=== PATIENT | female | born 1955 | race Caucasian/White ===

== ENCOUNTER 2019-02-26 12:05 | Emergency (ER) | payer OTHER, SELFPAY ==
[2019-02-26 12:07] VITALS: BP 160/92; PULSE 69; RESP 17; TEMP 36.4; O2SAT 100; BMI 32.1
--- NOTE | 2019-02-26 12:43 | ED.VISSUMM ---
- ER Visit Summary Date of Service: 02/26/19 Chief Complaint: Left pain and swelling without trauma. 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 Patient states for the last 3 days she has had pain and some swelling in her left knee and now some mild swelling and discomfort in her proximal left calf. She denies any history of DVT or PE. No chest pain, shortness of breath or hemoptysis. She has had no recent travel, surgery or immobilization. She has had ultrasounds in the past of her legs showing no blood clots. She presented today to the urgent care they were concerned due to the swelling and sent her over for possible blood clot. Patient has no risk factors of a blood clot nor does she have any family history of clotting disorder. Physical Examination: Appearing female no acute distress vital signs stable afebrile. Pulse ox 100%. Lungs are clear to auscultation. Heart regular rhythm. Abdomen is soft. HEENT exam unremarkable. Patient is moving all 4 extremities and neurovascular intact. Her left knee she has mild swelling. Mild pain with range of motion. No erythema. No septic joint. She has mild throat fullness to her proximal calf just below the knee. Left foot is neurovascularly intact with normal DP pulse dorsi plantarflexion sensation. There are no cords. There is no lymphangitic streaking. The exam is consistent with a left knee effusion from arthritis and swelling. Test Results: None. Discussed with the patient noninvasive study which clinically I do not think she needs. Discussed with her a d-dimer which they deferred. Emergency Department Course and Treatment: Patient will be treated as a left knee effusion. Ice and placed on prednisone. We discussed a intra-articular joint injection of lidocaine and steroid which she deferred at this time. She knows she can have that done and follow-up if not improving. She did not want to do Motrin due to her reflux. Treatment Plan: Prednisone 40 mg a day for 10 days. First dose given in the ER. Ice and elevate her leg. Follow-up if not improving. Disposition: Discharge Impression: Acute left knee effusion and pain secondary to arthritis This note was generated with [employer] software. It may contain incorrect words, spelling, and punctuation that were not noted in review of the chart prior to signing ED Disposition - Plan for ED Patient: Referrals: Eugenio James MD [Primary Care Provider] -
--- NOTE | 2019-02-26 12:46 | ED.DEP ---
ED Disposition - Plan for ED Patient: Disposition: Home or Assisted Living Instructions: ED Osteoarthritis Prescriptions: Prednisone [Deltasone] 40 mg PO DAILY 9 Days #9 tab Prescription Printed Referrals: Eugenio James MD [Primary Care Provider] - 3-5 Days if not improving Additional Instructions: Ice and elevate your leg. Prednisone daily. Follow-up with not improving he may need a knee joint injection. If you start having swelling above your knee into the thigh we can always do a noninvasive study or ultrasound your leg but at this time I do not feel this is a blood clot. Follow-up with an orthopedic physician to have your knee further evaluated.
[2019-02-26] MEDS: predniSONE 20 MG Tablet 40 MG PO (12:52)
[2019-02-26 13:12] VITALS: PULSE 82; RESP 17; O2SAT 98
== END 2019-02-26 13:13 | disposition home or self-care (01) ==
PROVIDERS: Emergency Provider Emergency Medicine; Family Provider Family Medicine; PCP Family Medicine
DX: M17.12 Unilateral primary osteoarthritis, left knee (principal)
CPT/HCPCS: 99283

== ENCOUNTER 2019-05-24 01:42 | Emergency (ER) | payer OTHER, SELFPAY ==
[2019-05-24 01:43] VITALS: BP 152/71; PULSE 57; RESP 18; TEMP 36.8; O2SAT 94; BMI 29.7
--- NOTE | 2019-05-24 01:58 | RAD_ITS ---
STUDY: X-RAY CHEST REASON FOR EXAM: Female, 63 years old. Left-sided chest pain with inspiration. TECHNIQUE: PA and lateral chest. COMPARISON: None. FINDINGS: The lungs are clear and expanded. There is no demonstrated pleural abnormality. Normal size heart. Normal mediastinum and kirk. Normal visualized pulmonary arteries. Normal visualized aortic arch and descending thoracic aorta. Normal visualized thoracic spine. Normal visualized ribs, clavicles, and shoulders. There is no demonstrated abnormality of the visualized soft tissue structures of the upper abdomen. RAD/Chest PA and Lateral IMPRESSION: No acute cardiopulmonary disease. Electronically Signed: Rich Acosta MD at 3:12 EST , Service support ,
--- NOTE | 2019-05-24 01:58 | EKG12_ITS ---
Test Reason : DYSRHYTHMIA Blood Pressure : / mmHG Vent. Rate : 056 BPM Atrial Rate : 056 BPM P-R Int : 200 ms QRS Dur : 094 ms QT Int : 456 ms P-R-T Axes : 042 -07 009 degrees QTc Int : 440 ms Sinus bradycardia Minimal voltage criteria for LVH, may be normal variant Borderline ECG Confirmed by MAXIME YOU, MACIE ([id number]), editor index LEO CROCKER ([id number]) on 05/25/2019 1:53:59 PM Referred By: CAMMY Confirmed By:MACIE SWARTZ MD
--- NOTE | 2019-05-24 01:59 | ED.DCSUM_ITS ---
History of Present Illness Chief Complaint: Shortness of Breath Informant: Patient Narrative: Stated has had left-sided chest pain for approximately 11 hours. It does not hurt unless she takes a deep breath and then she feels a sharp pleuritic pain on the left breast lateral region. It does hurt to push on it as well. No injury to this area. No recent sickness. No pulmonary embolism cardiac or aortic dissection risk factors. Never had this before. Current severity is mild. She tried to take a reflux medicine with no relief. Denies shortness of breath. Denies any leg swelling or pain or recent trips Past Medical History - Allergies and Home Meds Allergies/Adverse Reactions: Allergies No Known Allergies Allergy (Verified 05/24/19 01:48) Primary Care Physician: Eugenio James MD [Primary Care Provider] - Prior records reviewed: Yes Past Medical History: - - Gastric reflux Surgical History: no surgical history Lives: With Family Smoking Status: Never smoker Alcohol: None Drugs: None Review of Systems General: Denies: Chills, Fever, Sweats Eyes: Denies: Visual changes - bilaterally, Diplopia ENT: Denies: Rhinorrhea, Sore throat Cardiovascular: Reports: Chest pain. Denies: Palpitations Respiratory: Denies: Dyspnea, Cough, Dyspnea on exertion Gastrointestinal: Denies: Abdominal pain, Nausea, Vomiting, Diarrhea, Melena, Hematochezia Genitourinary: Denies: Dysuria, Hematuria, Frequency Musculoskeletal: Denies: Back pain, Extremity Pain Skin: Denies: Rash, Wounds Neurological: Denies: Headache, Weakness, Numbness Physical Exam Vital Signs/Narrative: Vital Signs Temp Pulse Resp BP Pulse Ox 05/24/19 01:43 98.3 F 57 L 18 152/71 H 94 General: Well nourished, Well developed, No Acute Distress Head: Normocephalic, Atraumatic Eyes: Perrl, EOMI ENT: Moist mucous membranes, No rhinorrhea Neck: Supple, Nontender Cardiovascular: Regular rate, Regular rhythm, No murmurs Respiratory: No distress, CTA bilaterally, Chest tenderness - Chest tenderness left lateral without swelling or deformity. Negative for: Chest nontender Abdomen: Soft, Nontender, Nondistended, Normal bowel sounds Back: Nontender, Normal Inspection Extremities: Nontender, No edema Skin: Normal color, No rash Neurological: Alert, Oriented x3, Cranial nerves II-XII grossly intact, Normal Strength, Normal Sensation Psychological: Normal affect, Normal Mood Diagnostic/Tx/Re-eval - Medical Decision Making Patient given Toradol. Lab work chest x-ray EKG obtained. EKG shows sinus bradycardia at 56 with no ischemia or arrhythmia. Chest x-ray normal. Lab work shows no significant abnormalities including CBC BMP. Creatinine mildly elevated. Troponin negative. D-dimer negative. At this time I think the pat ient likely has pleurisy or costochondritis. It is reproducible. She feels much better after Toradol. I do not think she has an acute coronary syndrome PE or dissection. I feel she can follow-up as an outpatient will continue anti- inflammatories. ED Disposition - Plan for ED Patient: Disposition: Home or Assisted Living Diagnosis: Pleurisy Instructions: Pleurisy Referrals: Eugenio James MD [Primary Care Provider] -
[2019-05-24 02:04] LABS: Absolute Lymphocyte Count 1.69 X10^3/uL (0.83-4.51); Absolute Neutrophil Count 2.6 X10^3/uL (2.0-7.7); Basophil# 0.03 X10^3/uL; Basophil% 0.6 % (0-1); Eosinophil# 0.13 X10^3/uL; Eosinophils% 2.7 % (0-5); Hematocrit 41.7 % (37-47); Hemoglobin 13.8 g/dL (12.0-15.0); Lymphocyte # 1.69 X10^3/ul (4.0); Lymphocyte % 35.7 % (19-41); Mean Corp Hgb Conc 33.1 g/dL (32-36); Mean Corpuscular Hgb 29.2 pg (27.0-32.0); Mean Corpuscular Volume 88.2 fL (81-99); Mean Platelet Vol. 10.8 fl (6.2-12.0); Monocyte# 0.26 X10^3/uL; Monocyte% 5.5 % (0-10); NRBC Flagged by Analyzer 0 % (0-5); Neutrophil # 2.62 X10^3/uL (2.7-7.7); Neutrophil % 55.3 % (47-70); Platelet Count 167 K/mm3 (150-450); RBC Distribution Width CV 13.3 % (11.6-14.6); Red Blood Count 4.73 M/mm3 (4.2-5.4); White Blood Count 4.7 K/mm3 (4.4-11.0)
[2019-05-24 02:05] VITALS: O2SAT 94
[2019-05-24] MEDS: Ketorolac 15 MG/ML Vial IV (02:11)
[2019-05-24 02:13] LABS: D-Dimer Quantitative (DVT/PE) 0.49 FEU/ug/m (0.27-0.49)
[2019-05-24 02:20] LABS: Anion Gap 5 (5-15); BUN 17 mg/dL (7-18); BUN/Creat Ratio 15.6 RATIO (10-20); Calcium,Total 9.1 mg/dL (8.5-10.1); Chloride 110 mmol/L (98-107); Creatinine, Serum 1.09 mg/dL (0.55-1.02); EST Glomerular Filtration Rate 54 mL/min (>60); Est Glom Filt Rate - Afr Amer 65 mL/min (>60); Estimated Creatinine Clearance 51.37 ml/min; Glucose 93 mg/dL (74-106); Potassium 3.7 mmol/L (3.5-5.1); Sodium Level 142 mmol/L (136-145)
[2019-05-24 03:22] VITALS: BP 140/68; PULSE 53; RESP 16; O2SAT 97
== END 2019-05-24 03:27 | disposition home or self-care (01) ==
PROVIDERS: Emergency Provider Emergency Medicine; PCP Family Medicine
DX: R09.1 Pleurisy (principal); K21.9 Gastro-esophageal reflux disease without esophagitis; Z79.899 Other long term (current) drug therapy
CPT/HCPCS: 71046; 80048; 84484; 85025; 85379; 93005; 96374; 99285; A4216

== ENCOUNTER 2023-10-29 21:40 | Emergency (ER) | payer MEDICARE, SELFPAY ==
[2023-10-29 21:40] VITALS: BP 182/109; PULSE 97; RESP 16; TEMP 36.4; O2SAT 97; BMI 30.9
--- NOTE | 2023-10-29 22:28 | RAD_ITS ---
EXAM: XR LEFT ELBOW COMPLETE, 3 OR MORE VIEWS CLINICAL INDICATION: injury TECHNIQUE: Frontal, lateral and oblique views of the left elbow. COMPARISON: No relevant prior studies available. FINDINGS: BONES/JOINTS: Spurring of the coronoid process. There is no displacement of the anterior or posterior fat pads. No acute fracture. No subluxation. Normal alignment. Preservation of the joint space. No destructive or sclerotic lesions. SOFT TISSUES: Soft tissue swelling. No radiopaque foreign body. RAD/Elbow min 3 Views IMPRESSION: Soft tissue swelling. Degenerative change. No acute osseous findings. Electronically Signed: Noam Olson DO at 23:21 EDT ,
--- NOTE | 2023-10-29 22:28 | RAD_ITS ---
EXAM: XR LUMBOSACRAL SPINE, 2 OR 3 VIEWS CLINICAL INDICATION: injury pain. TECHNIQUE: Frontal and lateral views of the lumbar spine and sacrum. COMPARISON: Thoracic spine on the same date. FINDINGS: VERTEBRAE: Multilevel facet arthrosis and endplate osteophytosis. Bilateral L5 spondylolysis with trace grade 1 anterolisthesis of L5 upon S1. Preserved vertebral body height. No fracture. Preservation of the normal lumbar lordosis. SACRUM/COCCYX: Symmetric arthrosis of the bilateral SI joints. DISC SPACES: Mild multilevel intervertebral disc height loss. SOFT TISSUES: Bilateral tubal ligation clips. GASTROINTESTINAL TRACT: Normal as visualized. Included bowel gas pattern is non-obstructive. RAD/Lumbar Spine 2 or 3 Views IMPRESSION: 1. Bilateral L5 spondylolysis with trace grade 1 anterolisthesis of L5 upon S1. 2. Mild multilevel degenerative changes. No evidence of acute osseous abnormality. Electronically Signed: Noam Olson DO at 23:20 EDT ,
--- NOTE | 2023-10-29 22:29 | ED.VIS.FALL ---
HPI HPI - Fall History of Present Illness Chief Complaint: Fall Informant: patient Narrative Narrative: Here with spouse mechanical fall at 7:30 PM this evening. Placed rocks on her embankment, she was rearranging this when she stumbled. She rolled. Pain to left elbow and her back. She bumped her head however no headache no loss of conscious no anticoagulations. She skinned her left knee. She is able to ambulate. Tetanus was in 2019. PFSH PFS Home Medications ?Medication ?Instructions ?Recorded ?Last Taken ?Type pantoprazole 40 mg tablet,delayed 40 mg PO DAILY 02/26/19 Unknown History release Allergy/AdvReac Type Severity Reaction Status Date / Time No Known Allergies Allergy Verified 10/29/23 21:44 Social History Smoking Status: Never smoker ROS ROS ED Constitutional Constitutional ED: Denies chills, fever(s) or sweats Eyes Eyes: Denies change in vision ENT ENT ED: Denies dysphagia or sore throat Cardiovascular Cardiovascular: Denies chest pain, leg edema, palpitations or racing heartbeat Respiratory/Chest Respiratory/Chest: Denies cough, dyspnea or dyspnea on exertion Gastrointestinal Gastrointestinal: Denies abdominal pain, diarrhea, nausea or vomiting Genitourinary Genitourinary ED: Denies dysuria, hematuria or urinary frequency Musculoskeletal Musculoskeletal: Reports back pain and extremity pain; Denies neck pain Integumentary Reports Abrasions; Denies rash or wounds Neurologic Neurologic: Denies headache(s), paresthesias or weakness EXAM Physical Exam Const Vital Signs: 10/29/23 21:40 10/29/23 23:40 10/29/23 23:40 Temperature 97.5 F L Temperature Source Temporal Pulse Rate 97 72 Respiratory Rate 16 16 Respiratory Effort Normal Respiratory Depth Normal Respiratory Pattern Normal Blood Pressure 182/109 H 127/81 H Blood Pressure Mean 133 96 Pulse Ox 97 99 Oxygen Delivery Method Room Air Room Air 10/29/23 23:46 Temperature 98.5 F Temperature Source Pulse Rate 78 Respiratory Rate 16 Respiratory Effort Respiratory Depth Respiratory Pattern Blood Pressure 118/65 Blood Pressure Mean 82 Pulse Ox 100 Oxygen Delivery Method Positive well nourished and well developed Constitutional Narrative: GCS 15, standing ambulatory in the room. General Appearance ED: well developed and NAD HEENT Reports moist mucous membranes normocephalic and atraumatic Eyes EOMs intact bilaterally and conjunctivae normal General Eye ED: Yes normal appearance of both eyes Neck full ROM, no lymphadenopathy and supple General: Negative for tenderness Chest Wall inspection of chest normal and palpation of chest normal Chest: Negative for tenderness Resp normal respiratory effort and normal air movement Resp Narrative: Symmetric breath sounds. Effort and Inspection: symmetric chest movement; Negative for respiratory distress Cardio regular rate, regular rhythm and no murmurs Peripheral Pulses: pulses 2+ throughout GI normal to inspection, nondistended, normoactive bowel sounds and non-tender Palpation: Negative for guarding or rebound tenderness present Back/Spine no CVA tenderness Back/Spine Narrative: Tender palpation lower thoracic spine there is no step-offs. No ecchymosis. Tender palpation upper gluteals with no ecchymosis. No sacral tenderness. Extremity normal to inspection Extremity Narrative: Negative logroll bilaterally. Left lower extremity mild left suprapatellar knee abrasion no patellar tenderness. No deformities. No active bleeding. Left upper extremity: Elbow with abrasion at the olecranon with mild swelling and tenderness. Full range of motion. No pain with pronation or supination. Right upper extremity: No clavicle tenderness. Full range of motion shoulders and elbows. Pulses intact x 4. General Extremety ED: Negative for edema or tenderness General Extremity: Negative for edema Neuro oriented x3, CN's II-XII intact bilaterally and no sensory deficits noted Sensorium / Orientation: awake and alert Skin no rashes or lesions noted and no wounds MDM MDM MDM Narrative Medical decision making narrative: Interventions / MDM: Differential diagnosis: Abrasion, contusions Diagnosis considered but do not suspect: Fracture however x-ray negative My EKG interpretation: N/A Imaging independently reviewed and interpreted by myself: Left elbow 3 views: Soft tissue swelling no fracture. 3 view thoracic spine x-ray: No fractures no degenerative changes noted. 3 view x-ray lumbar spine degenerative changes without any fractures. Also read by radiology. External documents reviewed: N/A Test considered but not ordered:N/A ED course: Patient mechanical fall with abrasions tetanus in the last 5 years. Bony tenderness left elbow thoracic and lumbar regions. X-rays ordered for evaluation. Initial decline any medications however later did request Tylenol which was ordered. X-rays were negative. Patient amatory. Discussed abrasions and contusions this time to continue Tylenol every 6 hours for next 2 days and as needed. Discussed muscle strain and contusions. Outpatient follow-up with her PCP. All questions were answered. Re-evaluation: stable Disposition discussed with patient/family/significant other: Patient and significant other Case discussed with consulting clinician: N/A This note was generated with [employer] dictation software. It may contain incorrect words, spelling, and punctuation that were not noted in checking the note before signing. Radiography Diagnostic Testing: Clinical Impression(s) from Imaging Studies Elbow X-Ray 10/29/23 22:28 IMPRESSION: Soft tissue swelling. Degenerative change. No acute osseous findings. Electronically Signed: Noam Olson DO at 23:21 EDT , Lumbar Spine X-Ray 10/29/23 22:28 IMPRESSION: 1. Bilateral L5 spondylolysis with trace grade 1 anterolisthesis of L5 upon S1. 2. Mild multilevel degenerative changes. No evidence of acute osseous abnormality. Electronically Signed: Noam Olson DO at 23:20 EDT , Thoracic Spine X-Ray 10/29/23 22:40 IMPRESSION: Degenerative changes. No acute osseous findings. Electronically Signed: Noam Olson DO at 23:20 EDT , Discharge Plan Triage Chief Complaint: Fall ED Provider: Harrison Cross Dx/Rx/DC Orders Clinical Impression: Fall, Contusion of elbow, left, Contusion of thoracic spine, Multiple abrasions, Muscle strain Instructions: Bruises (Contusions), ED Abrasion, ED Contusion, Elbow Prescriptions: No Action pantoprazole 40 MG tablet,delayed release (DR/EC) 40 mg PO DAILY Primary Care Provider: Eugenio James Referrals: Eugenio James MD [Primary Care Provider] - 1 Week if not improving Activity Restrictions/Additional Instructions: X-ray of thoracic and lumbar spine without fractures. Left elbow x-ray negative. Continue Tylenol 1 g every 6 hours for the next 2 days then as needed. Print Language: Malawian Disposition Disposition: Home, Self Care Discharge Date/Time: 10/30/23 00:01
--- NOTE | 2023-10-29 22:40 | RAD_ITS ---
EXAM: XR THORACIC SPINE, 3 VIEWS CLINICAL INDICATION: injury pain. TECHNIQUE: Frontal, lateral and swimmer''s views of the thoracic spine. COMPARISON: Chest radiograph, 05/24/2019 FINDINGS: VERTEBRAE: Multilevel facet arthrosis and endplate osteophytosis. No spondylolisthesis. Preservation of the normal thoracic kyphosis. No fracture or subluxation. DISC SPACES: Multilevel intervertebral disc height loss. RAD/Thoracic Spine 3 Views IMPRESSION: Degenerative changes. No acute osseous findings. Electronically Signed: Noam Olson DO at 23:20 EDT ,
[2023-10-29] MEDS: Acetaminophen 500 MG Tablet 1000 MG PO (23:30)
[2023-10-29 23:40] VITALS: BP 127/81; PULSE 72; RESP 16; O2SAT 99
[2023-10-29 23:46] VITALS: BP 118/65; PULSE 78; RESP 16; TEMP 36.9; O2SAT 100
== END 2023-10-30 00:01 | disposition home or self-care (01) ==
LOC: ED 10-30 00:01
PROVIDERS: Emergency Provider Emergency Medicine; PCP Family Medicine; Visit Provider Emergency Medicine
DX: S50.02XA Contusion of left elbow, initial encounter (principal); S20.20XA Contusion of thorax, unspecified, initial encounter; W19.XXXA Unspecified fall, initial encounter
CPT/HCPCS: 72072; 72100; 73080; 99282

== ENCOUNTER → 2024-02-11 | Outpatient (CLI) | payer MEDICARE, SELFPAY ==
--- NOTE | 2024-02-11 08:35 | VDLE_ITS ---
Reason For Study: BLE Pain RIGHT LEFT CFV is compressible, phasic, and INCOMPETENT CFV is compressible, phasic, and INCOMPETENT for greater than 1.0 second. for greater than 1.0 second. FV is compressible, spontaneous, phasic, FV is compressible, phasic, and INCOMPETENT competent and demonstrates normal for greater than 1.0 second. augmentation. POP V is compressible, spontaneous, phasic, POP V is compressible, spontaneous, phasic, competent and demonstrates normal competent and demonstrates normal augmentation. augmentation. T/P Trunk is compressible. T/P Trunk is compressible. PTV is compressible. PTV is compressible. LT PerV is compressible. RT PerV is compressible. SSV at junction is competent and measures SSV at junction is competent and measures 0.25 cm. 0.31 cm. SSV mid calf is INCOMPETENT for greater than SSV mid calf is INCOMPETENT for greater than 0.5 seconds and measures 0.25 x 0.24 cm. 0.5 seconds and measures 0.24 x 0.23 cm. SFJ is INCOMPETENT and measures 0.60 cm. SFJ is INCOMPETENT and measures 0.62 cm. GSV proximal thigh measures 0.59 x 0.64 cm. GSV proximal thigh measures 0.42 x 0.40 cm. GSV at knee measures 0.28 x 0.24 cm. GSV at knee measures 0.55 x 0.52 cm. GSV above knee is INCOMPETENT for greater GSV INCOMPETENT throughout for greater than than 0.5 seconds. 0.5 seconds. GSV below knee is competent. ASV proximal thigh is INCOMPETENT for greater ASV mid thigh is INCOMPETENT for greater than than 0.5 seconds and measures 0.43 x 0.37 cm. 0.5 seconds and measures 0.56 x 0.56 cm. ASV proximal calf is INCOMPETENT for greater than 0.5 seconds and measures 0.36 x 0.33 cm. Procedure This is a venous duplex using B-mode, color flow and spectral Doppler. Exam performed in department. The exam was diagnostic. Patient was scanned in reverse Trendelenburg position during reflux assessment. VL/Venous Duplex US - Ronni Extrem Interpretation Summary Deep veins of the bilateral lower extremities are patent and compressible segme ntally. There is no evidence of bilateral lower extremity deep vein thrombosis. The bilateral great saphenous veins appear patent and compressible segmentally. Positive for reflux in the right common femoral vein, saphenofemoral junction, great saphenous vein throughout, accessory saphenous vein in the thigh, accessory saphenous vein in the calf, and small saphenous vein. Positive for reflux in the left common femoral vein, femoral vein, saphenofemor al vein, great saphenous vein above the knee, accessory saphenous vein in the thigh, and small saphenous vein. Ordering Physician: Rebecca Weber Referring Physician: Eugenio James Performed By: Daquan Chung RVT
== END | disposition home or self-care (01) ==
LOC: CVS 08:34
PROVIDERS: PCP Family Medicine; Referring Provider Physician Assistant; Visit Provider Physician Assistant
DX: I83.892 Varicose veins of left lower extremity with other complications (principal); I87.2 Venous insufficiency (chronic) (peripheral)
CPT/HCPCS: 93970

== ENCOUNTER 2024-10-08 03:56 | Inpatient (IN) | payer MEDICARE, SELFPAY ==
[2024-10-08] VITALS (27 sets, daily range): BP systolic 74–167; BP diastolic 59–106; PULSE 57–98; RESP 13–24; TEMP 36.7–39.1; O2SAT 94–100; BMI 31.7; BMI 31.8
--- NOTE | 2024-10-08 04:06 | EKG12_ITS ---
Test Reason : CP Blood Pressure : */* mmHG Vent. Rate : 65 BPM Atrial Rate : 65 BPM P-R Int : 178 ms QRS Dur : 108 ms QT Int : 418 ms P-R-T Axes : 55 54 103 degrees QTcB Int : 434 ms Critical Test Result: STEMI Sinus rhythm with marked sinus arrhythmia ST elevation consider inferior injury or acute infarct ACUTE [place] / STEMI Consider right ventricular involvement in acute inferior infarct Abnormal ECG Confirmed by YOHANA YOU, ARTEM ([id number]), sports editor SATHYA JIMENEZ ([id number]) on 10/10/2024 11:30:29 AM Referred By: TB Confirmed By: ARTEM MULLER MD
--- OUTSIDE RECORDS SUMMARY | 2024-10-08 04:10 | XMS RPT_ITS | CCD ---
Author Organization [facility] Care Team Providers Care Construction Checker Name Role Phone EUGENIO PATEL Attending Unavailable EUGENIO PATEL Primary Care Unavailable EUGENIO PATEL Admitting Unavailable EUGENIO PATEL Attending Unavailable EUGENIO PATEL Primary Care Unavailable EUGENIO PATEL Admitting Unavailable Mavis Hughes PA-C Primary Care Provider Mavis Hughes PA-C Primary Care Provider Mavis Hughes PA-C Primary Care Provider Mavis Hughes PA-C Primary Care Provider Eugenio Peralta MD Primary Care Provider Eugenio Peralta MD Primary Care Provider Mavis Hughes PA-C Primary Care Provider Brenton SCHOOL OPERATIONS MANAGER.Lola DE LA O Unavailable Jessica SCHOOL OPERATIONS MANAGER.Natalia DE LA O Unavailable [phone] EUGENIO PERALTA Primary Care Unavailable LOLA FARRIS Attending Unavailable EUGENIO PERALTA Primary Care Unavailable LOLA FARRIS Referring Unavailable EUGENIO PERALTA Primary Care Unavailable EUGENIO PERALTA Attending Unavailable MEHNAZ HUGHES Attending Unavailable EUGENIO PERALTA Primary Care Unavailable LEXY KOVACS Attending Unavailable LEXY KOVACS Referring Unavailable EUGENIO PERALTA Primary Care Unavailable EUGENIO PERALTA Primary Care Unavailable EUGENIO PERALTA Referring Unavailable EUGENIO PERALTA Primary Care Unavailable EUGENIO PERALTA Attending Unavailable EUGENIO PERALTA Primary Care Unavailable MAYRA LAN Attending Unavailable EUGENIO PERALTA Primary Care Unavailable NATALIA MONGE Attending Unavailable EUGENIO PERALTA Primary Care Unavailable [facility] EUGENIO Hanson Primary Care Unavailable FABIAN, EUGENIO Hanson Primary Care Unavailable TIFFANI GANT Referring Unavailable FAIBAN, EUGENIO Hanson Referring Unavailable REJI MORGAN Attending Unavailable FABIAN, EUGENIO Hanson Primary Care Unavailable FABIAN, EUGENIO Hanson Primary Care Unavailable ALFREDA, TIFFANI Attending Unavailable Harrison Cross Attending Unavailable [place], Eugenio Primary Care Unavailable Weber, Rebecca Referring Unavailable Weber, Rebecca Attending Unavailable [place], Eugenio Primary Care Unavailable Weber, Rebecca Referring Unavailable José Miguel Lambert Attending Unavailable [place], Eugenio Primary Care Unavailable Fausto, José Miguel Attending Unavailable [place], Eugenio Referring Unavailable Weber, Rebecca Attending Unavailable [place], Eugenio Referring Unavailable Jessica SCHOOL OPERATIONS MANAGER.Natalia DE LA O Unavailable Allergies Allergy Classification Reported Allergen(s) Allergy Type Date of Onset Reaction(s) Facility (20 sources) POISON AKANKSHA EXTRACT; Translations: [POISON AKANKSHA] Drug Allergy 07-28-2005 [facility] Work Phone: (20 sources) Adhesive Tape-Silicones; Translations: [ADHESIVE TAPE-SILICONES] Propensity to adverse reactions to drug 10-28-2022 Rash [facility] Work Phone: Medications Current Medications Medication Drug Class(es) Dates Sig (Normalized) Sig (Original) amoxicillin 875 mg / clavulanate 125 mg oral tablet (1 source) Penicillin-class Antibacterial Start: 11-01-2022 End: 11-08-2022 take 1 tablet by mouth twice daily amoxicillin-clav ulanic acid (AUGMENTIN) 875-125 mg per tablet Take 1 tablet by mouth twice daily for 7 days. 14 tablet 0 11/01/2022 11/08/2022 Active Comment on above: Take 1 tablet by marielle twice daily for 7 days. Calcium Carbonate / vitamin D3 (20 sources) Start: 07-19-2007 calcium carbonate/vitami n d3(CALCIUM 500 WITH VITAMIN D 500 MG-125 UNIT TAB) Take one(1) tablet twice daily. 0 07/19/2007 Active Comment on above: Take one(1) tablet t wice daily. clobetasol propionate 0.5 mg/ml topical cream (20 sources) Corticosteroid Start: 01-11-2024 End: 01-13-2025 clobetasol (TEMOVATE) 0.05 % cream Apply to affected area 2x/day for 2 weeks, then 1x/day for a week, than 1-3x/week for maintenance. 60 g 3 01/11/2024 01/13/2025 Active Start: 01-02-2022 End: 01-08-2023 clobetasol (TEMOVATE) 0.05 % cream Apply to affected area 2x/day for 2 weeks, then 1x/day for a week, than 1-3x/week for maintenance. 60 g 3 01/02/2022 01/08/2023 Comment on above: Apply to affected ar ea 2x/day for 2 weeks, then 1x/day for a week, than 1-3x/week for maintenance. estradiol 0.1 mg/ml vaginal cream (20 sources) Estrogen Start: 11-17-19 End: 12-29-19 estradiol (ESTRACE) 0.01 % (0.1 mg/gram) vaginal cream Indications: Postmenopausal atrophic vaginitis Use small pea sized amount at vaginal opening twice a week. 42.5 g 5 01/07/2024 12/28/2025 Active Comment on above: Use small pea sized amount at vaginal opening twice a week. pantoprazole 40 mg delayed release oral tablet (20 sources) Proton Pump Inhibitor Start: 01-18-20 End: 12-14-19 take 1 tablet by mouth once daily pantoprazole DR (PROTONIX) 40 mg tablet Indications: Gastroesophageal reflux disease without esophagitis Take 1 tablet by mouth once daily. 90 tablet 3 12/14/2023 Active Comment on above: Take 1 tablet by [facility] once daily. predniSONE 10 mg oral tablet (7 sources) Start: 12-03-19 End: 12-12-19 24 predniSONE (DELTASONE) 10 mg tablet Take 4 tabs daily for 3 days, then 2 tabs daily for 3 days, then 1 tab daily for 3 days with food. 21 tablet 12/03/2023 12/12/2023 Active Start: 08-01-2023 End: 08-08-2023 take 4 tablets by mouth once daily, then take 2 tablets by mouth once daily, then take 1 tablet by mouth once daily predniSONE (DELTASONE) 10 mg tablet Indications: Rib pain on left side Take 4 tablets by mouth once daily for 3 days, THEN 2 tablets once daily for 2 days, THEN 1 tablet once daily for 2 days. Take with food.. 18 tablet 0 08/01/2023 08/08/2023 Active Start: 03-31-2023 End: 04-10-2023 predniSONE (DELTASONE) 10 mg tablet Take 4 tabs daily for 3 days, then 2 tabs daily for 3 days, then 1 tab daily for 3 days with food. 21 tablet 03/31/2023 04/10/2023 Discontinued (Course of therapy completed) Start: 02-17-2022 End: 03-01-2022 predniSONE (DELTASONE) 10 mg tablet Take 4 tabs daily x 3 days, then 3 tabs x 3 days, 2 tabs x 3 days, then 1 tab x3 days with food. 30 tablet 0 02/17/2022 03/01/2022 Active Start: 02-13-2022 End: 02-18-2022 take 2 tablets by mouth once daily predniSONE (DELTASONE) 20 mg tablet Indications: Sore throat , URI, acute Take 2 tablets by mouth once daily for 5 days. 10 tablet 0 02/13/2022 02/17/2022 Discontinued Comment on above: Take 2 tablets by mo [facility] once daily for 5 days. Take 4 tabs daily x 3 days, then 3 tabs x 3 days, 2 tabs x 3 days, then 1 tab x3 days with food. pseudoephedrine hydrochloride 30 mg oral tablet (20 sources) alpha-Adrenergic Agonist Start: 11-02-19 End: 03-23-20 take 1 tablet by mouth every four hours as needed pseudoephedrine (SUDAFED) 30 mg tablet Indications: Sinus congestion Take 1 tablet by mouth every 4 hours as needed. 30 tablet 1 12/24/2023 03/23/2024 Active Comment on above: Take 1 tablet by [facility] every 4 hours as needed. sucralfate 1000 mg oral tablet (20 sources) Aluminum Complex Start: 06-15-19 End: 06-15-19 take 1 tablet by mouth at bedtime sucralfate (CARAFATE) 1 gram tablet Indications: Dyskinesia of esophagus , Gastroesophageal reflux disease without esophagitis Take 1 tablet by mouth before meals and at bedtime. 360 tablet 3 06/15/2023 06/14/2024 Active Start: 07-22-2022 End: 06-15-2023 take 10 mL by mouth four times daily sucralfate (CARAFATE) 100 mg/mL suspension Take 10 mL by mouth four times daily. 414 mL 1 07/22/2022 06/15/2023 Discontinued End: 07-22-2022 take 1 g by mouth four times daily sucralfate (CARAFATE) 100 mg/mL suspension Take 1 g by mouth four times daily. 0 07/22/2022 Discontinued Comment on above: Take 10 mL by mouth four times daily. Take 1 g by mouth fo ur times daily. Take 1 tablet by marielle th before meals and at bedtime. tiZANidine 4 mg oral tablet (18 sources) Central alpha-2 Adrenergic Agonist Start: 04-21-19 take 1 tablet by mouth every eight hours as needed for muscle spasms tiZANidine (ZANAFLEX) 4 mg tablet Indications: Cervicalgia , Repetitive strain injury of cervical spine, initial encounter , Overuse syndrome of shoulder, right, subsequent encounter Take 1 tablet by mouth every 8 hours as needed (muscle spasms). 30 tablet 1 04/21/2023 Active Comment on above: Take 1 tablet by marielle th every 8 hours as needed (muscle spasms). triamcinolone acetonide 1 mg/ml topical cream (13 sources) Corticosteroid Start: 12-03-19 End: 01-07-20 triamcinolone acetonide (KENALOG) 0.1 % cream Apply 1 application to affected area two times a day. 30 g 2 01/07/2024 Active Completed/Discontinued Medications Medication Drug Class(es) Dates Sig (Normalized) Sig (Original) benzonatate 100 mg oral capsule (15 sources) Non-narcotic Antitussive Start: 03-31-2023 End: 10-26-2023 take 1 capsule by mouth every eight hours as needed benzonatate (TESSALON PERLES) 100 mg capsule Take 1 capsule by mouth three times a day as needed for cough. 21 capsule 03/31/2023 10/26/2023 Discontinued Start: 02-17-2022 End: 10-28-2022 take 100-200 mg by mouth every eight hours as needed benzonatate (TESSALON PERLES) 100 mg capsule Take 1-2 capsules by mouth three times daily as needed for cough. 40 capsule 02/17/2022 10/28/2022 Discontinued Comment on above: Take 1-2 capsules by mouth three times daily as needed for cough. Take 1 capsule by mo [facility] three times a day as needed for cough. doxycycline hyclate 100 mg oral tablet (2 sources) Tetracycline-class Drug Start: 03-26-2023 End: 04-05-2023 take 1 tablet by mouth twice daily doxycycline (VIBRA-TABS) 100 mg tablet Take 1 tablet by mouth two times a day for 10 days. 20 tablet 03/26/2023 04/05/2023 Start: 02-17-2022 End: 02-27-2022 take 1 tablet by mouth twice daily doxycycline (VIBRA-TABS) 100 mg tablet Take 1 tablet by mouth twice daily for 10 days. 20 tablet 0 02/17/2022 02/27/2022 Active Comment on above: [facility]. GLUC HCL/CSANA/GLY-AM-GLY, MX/C (GLUCOSAM-CONDROITIN- GA GLYCN-C ORAL) (1 source) GLUC HCL/CSANA/GLY-AM-GLY ,MX/C (GLUCOSAM-CONDROITIN -GA GLYCN-C ORAL) Take by mouth. 0 Active Comment on above: Take by mouth. lisinopril 10 mg oral tablet (6 sources) Angiotensin Converting Enzyme Inhibitor Start: End: 5 take 1 tablet by mouth once daily lisinopril (ZESTRIL) 10 mg tablet Indications: Primary hypertension Take 1 tablet by mouth once daily. 90 tablet 1 03/14/2024 08/27/2024 Discontinued MULTIVITAMIN TAB (1 source) Start: 8 MULTIVITAMIN TAB Take one(1) tablet daily. 0 07/19/2007 Active Comment on above: Take one(1) tablet d aily. Problems Active Problems Problem Classification Problem Date Documented Da te Episodic/Chronic Allergic reactions (2 sources) Allergic contact dermatitis due to adhesive; Translations: [Allergic contact dermatitis due to adhesives] 10-28-2022 Episodic Chronic kidney disease (20 sources) Chronic kidney disease stage 3A ; Translations: [Chronic kidney disease, stage 3a (HCC)] Onset: 11-14-2022 11-14-2022 Chronic Chronic kidney disease (1 source) Chronic kidney disease; Translations: [Chronic kidney disease, stage 3a (HCC)] Onset: 11-14-2022 Disorders of lipid metabolism (20 sources) Mixed hyperlipidemia; Translations: [Mixed hyperlipidemia] Onset: 10-07-2005 10-07-2005 Chronic Esophageal disorders (20 sources) Esophageal dysmotility; Translations: [Dyskinesia of esophagus] Onset: 09-06-2007 Resolved: 09-14-2017 09-06-2007 Chronic Essential hypertension (6 sources) Essential hypertension; Translations: [Essential (primary) hypertension] Onset: 02-22-2024 Chronic Gastritis and duodenitis (1 source) Chronic superficial gastritis; Translations: [Chronic superficial gastritis without bleeding] 10-28-2022 Chronic Immunizations and screening for infectious disease (4 sources) Vaccination needed; Translations: [Encounter for immunization] Episodic Menopausal disorders (2 sources) Atrophic vaginitis; Translations: [Postmenopausal atrophic vaginitis] Chronic Other aftercare (1 source) 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; Translations: [Long-term (current) use of other medications] 10-28-2022 Episodic Other aftercare (1 source) Drug therapy finding; Translations: [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] 11-14-2022 Episodic Other and unspecified benign neoplasm (1 source) Gastric polyp; Translations: [Polyp of stomach and duodenum] 10-20-2022 Episodic Other circulatory disease (1 source) Elevated blood-pressure reading without diagnosis of hypertension; Translations: [Elevated blood-pressure reading, without diagnosis of hypertension] 12-24-2023 Episodic Other connective tissue disease (1 source) Pain in right hand; Translations: [Pain in right hand] 10-21-2022 Episodic Other gastrointestinal disorders (2 sources) Dysphagia; Translations: [Dysphagia, unspecified] 10-28-2022 Episodic Other gastrointestinal disorders (2 sources) Finding of pulsation of abdomen; Translations: [Other specified symptoms and signs involving the digestive system and abdomen] 11-14-2022 Episodic Other lower respiratory disease (1 source) Rib pain; Translations: [Pleurodynia] 08-01-2023 Episodic Other lower respiratory disease (1 source) Cough; Translations: [Acute cough] 03-31-2023 Episodic Other non-traumatic joint disorders (3 sources) Pain in right knee; Translations: [Pain in joint, lower leg] Onset: 02-22-2024 02-22-2024 Episodic Other nutritional; endocrine; and metabolic disorders (1 source) Cholesterol level - finding; Translations: [Lipoprotein deficiency] 11-14-2022 Chronic Other skin disorders (1 source) Lichen sclerosus et atrophicus; 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 Other upper respiratory disease (20 sources) Allergic rhinitis due to pollen; Translations: [Allergic rhinitis due to pollen] Onset: 01-12-2006 01-12-2006 Chronic Other upper respiratory disease (1 source) Congestion of nasal sinus; Translations: [Nasal congestion] 12-24-2023 Episodic Other upper respiratory infections (2 sources) Chronic sinusitis; Translations: [Chronic sinusitis, unspecified] Chronic Other upper respiratory infections (5 sources) Sore throat symptom; Translations: [Acute pharyngitis, unspecified] Episodic Otitis media and related conditions (1 source) Acute non-suppurative otitis media - serous; Translations: [Acute serous otitis media, right ear] 11-01-2022 Episodic Residual codes; unclassified (2 sources) Postmenopausal state; Translations: [Asymptomatic menopausal state] 11-14-2022 Episodic Residual codes; unclassified (2 sources) Pain; Translations: [Pain, unspecified] 11-26-2022 Episodic Spondylosis; intervertebral disc disorders; other back problems (20 sources) Arthritis of right sacroiliac joint; Translations: [Spondylosis without myelopathy or radiculopathy, sacral and sacrococcygeal region] Onset: 12-04-2022 11-14-2022 Chronic Spondylosis; intervertebral disc disorders; other back problems (2 sources) Backache; Translations: [Lumbosacral pain] 11-14-2022 Episodic Varicose veins of lower extremity (4 sources) Varicose veins of lower extremity; Translations: [Varicose veins of bilateral lower extremities with other complications] Onset: 03-09-2024 01-06-2023 Episodic Past or Other Problems Problem Classification Problem Date Documented Da te Episodic/Chronic Acquired foot deformities (20 sources) Talipes planus; Translations: [Flat foot [pes planus] (acquired), right foot] Onset: 01-19-2023 12-18-2022 Episodic Other aftercare (20 sources) Patient encounter status; Translations: [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] Onset: 07-08-2017 07-08-2017 Episodic Other aftercare (19 sources) Long-term current use of drug therapy; Translations: [Other custodial (current) drug therapy] Onset: 07-08-2017 07-08-2017 Episodic Other circulatory disease (1 source) Elevated blood-pressure reading, without diagnosis of hypertension; Translations: [Elevated blood pressure reading without diagnosis of hypertension] Onset: 12-24-2023 Episodic Other connective tissue disease (20 sources) Plantar fasciitis; Translations: [Plantar fascial fibromatosis] Onset: 01-19-2023 12-18-2022 Episodic Other female genital disorders (20 sources) Leukoplakia of vulva; Translations: [Circumscribed scleroderma] Onset: 11-14-2022 11-14-2022 Episodic Other gastrointestinal disorders (20 sources) History of gastritis; Translations: [Personal history of other diseases of the digestive system] Onset: 09-06-2007 01-26-2020 Episodic Other nervous system disorders (20 sources) Carpal tunnel syndrome; Translations: [Carpal tunnel syndrome, unspecified upper limb] Onset: 01-12-2006 Resolved: 06-05-2009 06-05-2009 Chronic Other non-traumatic joint disorders (19 sources) Shoulder pain; Translations: [Pain in unspecified shoulder] Onset: 05-04-2023 05-04-2023 Episodic Other non-traumatic joint disorders (1 source) Pain in unspecified shoulder; Translations: [Acute shoulder pain, unspecified laterality] Onset: 05-04-2023 Episodic Other non-traumatic joint disorders (1 source) Pain in left elbow; Translations: [Pain in left elbow] Onset: 12-23-2023 Episodic Other screening for suspected conditions (not mental disorders or infectious disease) (5 sources) Breast finding ; Translations: [Inconclusive mammogram] Onset: 01-07-2024 Episodic Other upper respiratory disease (1 source) Nasal congestion; Translations: [Sinus congestion] Onset: 12-24-2023 Episodic Residual codes; unclassified (20 sources) Family history of malignant neoplasm of ovary; Translations: [Family history of malignant neoplasm of ovary] Onset: 09-08-2016 09-08-2016 Episodic Screening and history of mental health and substance abuse codes (2 sources) Encounter for screening for depression; Translations: [Encounter for screening examination for other mental health and behavioral disorders] Onset: 10-26-2023 Episodic Results Test Name Value Interpretation Reference Range Facility MR/Cleo 04-28-2024 MR/ANIKET [facility] [address] [place] [address] OFFICE VISIT Date of Service: 04/28/24 MR#: [id number] Acct: [id number] Name: LUCAS ASTUDILLO Rep #: [id number] : 1955 Provider: Dr. José Miguel Lambert MD Age/Sex: 68/F [facility] Status: Signed Intake Vital Signs 10/29/23 21:40 04/28/24 13:28 Height 5 ft 6.5 in Weight: 193 lb BP 117/76 Blood Pressure Location Lt brachial Position Sitting Respiration 16 Pulse 67 Pulse Source Monitor Temp 98.1 F Temp Source Temporal Pulse Oximetry (%) 98 Oxygen Delivery Method room air Intake Visit Reasons: FU discuss Venous doppler and venogram vs ablation Is patient in pain?: No Allergies No Known Allergies Allergy (Verified 04/28/24 13:30) Medications ???Medication ???Instructions ???Recorded ???Confirmed ???Type pantoprazole 40 mg tablet,delayed 40 mg PO DAILY 02/26/19 04/28/24 History release calcium carbonate 500 mg PO QDAY 01/27/24 04/28/24 H istory cholecalciferol (vitamin D3) 10 10 mcg PO QDAY 01/27/24 04/28/24 H istory mcg (400 unit) capsule lisinopril 10 mg tablet 10 mg PO QDAY 04/28/24 04/28/24 Hi story Is last menstrual period known: No Post menopausal: Yes Patient : No Have you fallen in the past year?: Yes PFSH Surgical History H/O section Hx of tubal ligation Family History Other CAD (coronary artery disease) COPD (chronic obstructive pulmonary disease) Cancer Diabetes Heart disease Hypertension Myocardial infarction Social History Smoking Status: Never smoker HPI HPI HPI: LUCAS ASTUDILLO, is a 68 F who presents to the office today for further discussion of painful bilateral lower extremity varicose veins. She has been wearing waist high compression with relief of symptoms. No skin changes or ulceration. No significant edema. ROS General General: No weight change, appetite, fatigue, colon cancer, breast cancer or weakness HEENT HEENT: No difficulty swallowing, eye injury, eye surgery, swollen glands or hoarseness Endo Endocrine: No thyroid disease, diabetes mellitus, thyroid cancer, Hair loss, heat intolerance or cold intolerance Skin Skin: No rash or changing moles Musc Musculoskeletal: Yes back problems, arthritis and joint pain; No rheumatoid arthritis or gout Cardio Cardiovascular: Yes high blood pressure; No murmur, pacemaker, heart disease, atrial fibrillation, heart attack, heart stent, palpitations, shortness of breat with exertion or chest pain Psych Psychiatric: No depression, anxiety or hearing voices Resp Respiratory: No shortness of breath, No sleep apnea, No cough, No COPD, No asthma, No emphysema and No wheezing Gastro Gastrointestinal: No abdominal pain, No nausea or vomiting, No diarrhea, No constipation, No blood in stool, Yes acid reflux, Yes hemorrhoids, No ulcers, No gallbladder problem and No black,tarry stools Zak Hematologic: No blood thinners, No blood disorders, No bleeding, No anemia and No blood clots Neuro Neurologic: No system reviewed and no additional complaints, except as documented, No as per HPI, No abnormal gait, No abnormal hearing, No abnormal movements, No abnormal speech, No behavioral changes, Yes burning sensations, No confusion, No convulsions, No disequilibrium, No dizziness, No localized weakness, No frequent falls, No headache(s), No lack of coordination, No loss of vision, No memory loss, No numbness, No other visual disturbances, Yes radicular pain, No restless legs, No sensory deficit, No syncope, No tingling, No tremor(s), No weakness and No other Exam Const General: cooperative, healthy appearing, comfortable, no acute distress and well developed Nutritional Appearance: well nourished Orientation: alert, awake and oriented x3 HENMT Head: normocephalic and atraumatic Ears: hearing grossly normal bilaterally Nose: external nose normal Eyes General: appearance normal, both eyes and all related structures EOM: EOM intact bilaterally Neck Neck: normal visual inspection, full ROM and trachea midline Thyroid: thyroid normal Resp Effort Inspection: normal respiratory effort, able to speak in complete sentences, symmetric chest movement, no audible wheezes, not labored, no stridor and no use of accessory muscles Cardio Rate: regular rate Rhythm: regular rhythm Skin General: no rashes or lesions noted and no erythema Wounds: no wounds Neuro Cranial Nerves: CN's II-XI intact bilaterally and EOM intact bilaterally Speech: speech normal Gait: normal gait Motor: strength 5/5 throughout Sensory Exam: no sens (more content not included)... Normal [facility] [id number] 04-17-2024 [id number] HNO ID: [id number] Author: HARRY FAUSTIN PT Service: ? Author Type: Physical Therapist Type: [id number] Filed: 04/17/2024 16:29 Note Text: [facility] Physical Therapy Plan of Care Certification Patient Name: Lucas Astudillo : 1955 [facility] #: [id number] Date: 01/19/2023 To: Jt Ramachandran DPM From Therapist: Harry Faustin PT RE: Patient Certification/ Recertification Your review, approval and electronic signature are required in order to comply with Payor: [employer] MEDICARE / Plan: [employer] MED[employer]VANTAGE HMO / Product Type: HMO / regulations. The identified Physical Therapy PLAN OF CARE for the patient is as follows: M72.2 Plantar fasciitis M21.41, M21.42 Flat feet, bilateral PLAN OF CARE: Assessment: Lucas Astudillo presents with chief complaint of B arch pain that interferes with walking, standing. She presents with impairments in ADL's, balance, gait, independence in exercise, overall function, symptom management, and tissue tenderness. PROMIS? (Patient-Reported Outcomes Measurement Information System) scores were reviewed and physical function domain identified as a rehabilitation concern. Prognosis for therapy is Excellent due to: positive past response to therapy, within-session changes, current objective clinical presentation. She will benefit from skilled therapy services to meet the goals established for this plan of care as noted below. Goals for Episode of Care: created on 01/19/23 through 02/23/23 Pt will be educated on proper wear schedule and care of custom biomechanical foot orthotics Pt will be provided with custom biomechanical B foot orthotics that improve foot and ankle biomechanics as intended with proper fit and function. 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 The above goals and plan of care were discussed and agreed upon by patient/family. For further details regarding this patient refer to the Physical Therapy electronically documented visit dated 01/19/2023. Provider Attestation I have reviewed the treatment plan for Lucas Astudillo, CC# [id number] for the period of 01/19/23 -- 02/23/23, established on 01/19/2023. Signature certifies the need for therapy services. Normal [facility] CNOVon 03-14-2024 CNOV Office Visit (FAMPWS ) LUCAS ASTUDILLO ([id number]) 1955 F Date Time Provider Department 03/14/24 11:20 AM [facility] During your visit today, we recorded the following information about you: Pulse Blood pressure Weight 64/minute 122/72 87.4 kg Eugenio Peralta MD 03/14/2024 12:03 PM Signed Patient presents with: Blood Pressure HPI: Patient presents today for office visit for follow up. HTN: Started lisinopril 02/22/24 when saw Lola. Denies chest pain,shortness of breath, headache, or dizziness. Checking BP at home. Will validate home monitor today. Home bps are reviewed and look good. 03/14/2024: Home BP Cuff Validated. Home BP: 126/85 Office BP: 122/72 Note was copied and pasted, without alteration from: Pt presents today with complaint of elevated blood pressure. She is getting 137-152/80-95. She is not currently on medication for blood pressure. HTN: Patient is compliant with meds n/a. Monitors bp at home: Yes. Denies side effects: n/a. Chest pain: will feel an occ tightness that resolves if she takes a deep breath. Dyspnea: No. Edema: No. Palpitations: No. Syncope: No. Headache: slight now and then Dizziness: No. MEDICATIONS: Current Outpatient Medications Medication Sig lisinopril (ZESTRIL) 10 mg tablet Take 1 tablet by mouth once daily. clobetasol (TEMOVATE) 0.05 % cream Apply to affected area 2x/day for 2 weeks, then 1x/day for a week, than 1-3x/week for maintenance. estradiol (ESTRACE) 0.01 % (0.1 mg/gram) vaginal cream Use small pea sized amount at vaginal opening twice a week. triamcinolone acetonide (KENALOG) 0.1 % cream Apply 1 application to affected area two times a day. pseudoephedrine (SUDAFED) 30 mg tablet Take 1 tablet by mouth every 4 hours as needed. pantoprazole DR (PROTONIX) 40 mg tablet Take 1 tablet by mouth once daily. sucralfate (CARAFATE) 1 gram tablet Take 1 tablet by mouth before meals and at bedtime. tiZANidine (ZANAFLEX) 4 mg tablet Take 1 tablet by mouth every 8 hours as needed (muscle spasms). calcium carbonate/vitamin d3(CALCIUM 500 WITH VITAMIN D 500 MG-125 UNIT TAB) Take one(1) tablet twice daily. No current facility-administered medications for this visit. ALLERGIES: ALLERGIES Allergen Reactions Adhesive Tape-Silic* Rash Per patient developed extensive rash from adhesive monitor sticker after endoscopy Poison Akanksha PAST MEDICAL HISTORY Diagnosis Date Acute gastritis without mention of hemorrhage Allergic rhinitis due to other allergen Arthritis Cancer (HCC) Deviated septum Dyskinesia of esophagus GERD (gastroesophageal reflux disease) 07/25/2013 Internal hemorrhoids without mention of complication Tinnitus PAST SURGICAL HISTORY Procedure Laterality Date CARPAL TUNNEL 03/09/2009 Rt wrist COLONOSCOPY FLX DX W/COLLJ SPEC WHEN PFRMD 09/06/2007 COLONOSCOPY FLX DX W/COLLJ SPEC WHEN PFRMD 10/05/2017 Colonoscopy EGD 10/20/2022 EGD TRANSORAL BIOPSY SINGLE/MULTIPLE 09/06/2007 ESOPHAGOGASTRODUODENOSCOPY TRANSORAL DIAGNOSTIC 10/05/2017 EGD LIG/TRNSXJ FLP TUBE ABDL/VAG APPR UNI/BI Tubal ligation NASAL ENDOSCOPY DIAG UNILBILAT 01/20/2015 SKIN BIOPSY HX FAMILY HISTORY Problem Relation Age of Onset Cancer Mother ovarian, had negative genetic testing Coronary Artery Disease Father after 55 Hypertension Father Diabetes Father other (hysterecomy) Sister cervical cancer cells other (Precancerous cervix cells) Sister cancerous cells in uterus per Sharon Ellis CNP other (hysterectomy) Sister half-sister; unknown etiology Diabetes Maternal Grandmother Cancer Paternal Grandmother possibly ovarian or cervical other (abnormal pap) Daughter other (Precancerous cervix cells) Other Niece (hysterectomy) Social History Tobacco Use Smoking status: Never Smokeless tobacco: Never Vaping Use Vaping status: Never Used Substance Use Topics Alcohol use: No Drug use: No Reviewed current medications, allergies, past medical history, surgical history, family history and social history today. REVIEW OF SYSTEMS All other reviewed and negative other than HPI. HEALTH MAINTENANCE: Reviewed health maintenance issues today and recommended the following in detail. BP Controlled (<130/80) Never done VITALS: BP 122/72 Pulse 64 Wt 87.4 kg (192 lb 10.9 oz) LMP 09/17/2008 SpO2 97% BMI 31.08 kg/m? Last 4 Encounter Wt Readings: Date: Wt: 01/07/2024 86.4 kg (190 lb 6.4 oz) 12/24/2023 88.9 kg (195 lb 15.8 oz) 12/03/2023 87.5 kg (193 lb) 10/26/2023 88.5 kg (195 lb) PHYSICAL EXAMINATION: General appearance: Well appearing, alert, in no acute distress, well-hydrated, well nourished. Skin: Skin color, texture, turgor normal, no suspicious rashes or lesions Head: Normocephalic, no masses, lesions, tenderness or abnormalities Lungs: Lungs clear to auscultat (more content not included)... Normal [facility] CNOVon 02-22-2024 CNOV Office Visit (FAMPWS ) LUCAS ASTUDILLO ([id number]) 1955 F Date Time Provider Department 02/22/24 11:40 AM LOLA FARRIS [facility] During your visit today, we recorded the following information about you: Pulse Respiration Blood pressure 58/minute 16/minute 158/88 Lola Farris 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 02/22/2024 8:43 PM Signed This is a 68 year old female who presents today with: Patient presents with: Recheck: BP check HISTORY OF PRESENT ILLNESS: Lucas Astudillo is a 68 year old female. Patient presents with: Recheck: BP check Pt presents today with complaint of elevated blood pressure. She is getting 137-152/80-95. She is not currently on medication for blood pressure. HTN: Patient is compliant with meds n/a. Monitors bp at home: Yes. Denies side effects: n/a. Chest pain: will feel an occ tightness that resolves if she takes a deep breath. Dyspnea: No. Edema: No. Palpitations: No. Syncope: No. Headache: slight now and then Dizziness: No. Pain in the right knee. Medial aspect. Refers that she has a hx of arthritis, however has been having worsening pain in the medial aspect. No injury. Using voltaren gel, which temporarily helps. Cannot take nsaids. PAST MEDICAL HISTORY: PAST MEDICAL HISTORY Diagnosis Date Acute gastritis without mention of hemorrhage Allergic rhinitis due to other allergen Arthritis Cancer (HCC) Deviated septum Dyskinesia of esophagus GERD (gastroesophageal reflux disease) 07/25/2013 Internal hemorrhoids without mention of complication Tinnitus PAST SURGICAL HISTORY Procedure Laterality Date CARPAL TUNNEL 03/09/2009 Rt wrist COLONOSCOPY FLX DX W/COLLJ SPEC WHEN PFRMD 09/06/2007 COLONOSCOPY FLX DX W/COLLJ SPEC WHEN PFRMD 10/05/2017 Colonoscopy EGD 10/20/2022 EGD TRANSORAL BIOPSY SINGLE/MULTIPLE 09/06/2007 ESOPHAGOGASTRODUODENOSCOPY TRANSORAL DIAGNOSTIC 10/05/2017 EGD LIG/TRNSXJ FLP TUBE ABDL/VAG APPR UNI/BI Tubal ligation NASAL ENDOSCOPY DIAG UNILBILAT 01/20/2015 SKIN BIOPSY HX ALLERGIES Adhesive Tape-Silicones and Poison Akanksha MEDICATIONS Current Outpatient Medications Medication Sig clobetasol (TEMOVATE) 0.05 % cream Apply to affected area 2x/day for 2 weeks, then 1x/day for a week, than 1-3x/week for maintenance. estradiol (ESTRACE) 0.01 % (0.1 mg/gram) vaginal cream Use small pea sized amount at vaginal opening twice a week. triamcinolone acetonide (KENALOG) 0.1 % cream Apply 1 application to affected area two times a day. pseudoephedrine (SUDAFED) 30 mg tablet Take 1 tablet by mouth every 4 hours as needed. pantoprazole DR (PROTONIX) 40 mg tablet Take 1 tablet by mouth once daily. sucralfate (CARAFATE) 1 gram tablet Take 1 tablet by mouth before meals and at bedtime. tiZANidine (ZANAFLEX) 4 mg tablet Take 1 tablet by mouth every 8 hours as needed (muscle spasms). calcium carbonate/vitamin d3(CALCIUM 500 WITH VITAMIN D 500 MG-125 UNIT TAB) Take one(1) tablet twice daily. No current facility-administered medications for this visit. FAMILY HISTORY Problem Relation Age of Onset Cancer Mother ovarian, had negative genetic testing Coronary Artery Disease Father after 55 Hypertension Father Diabetes Father other (hysterecomy) Sister cervical cancer cells other (Precancerous cervix cells) Sister cancerous cells in uterus per Sharon Ellis CNP other (hysterectomy) Sister half-sister; unknown etiology Diabetes Maternal Grandmother Cancer Paternal Grandmother possibly ovarian or cervical other (abnormal pap) Daughter other (Precancerous cervix cells) Other Niece (hysterectomy) Social History Tobacco Use Smoking status: Never Smokeless tobacco: Never Vaping Use Vaping status: Never Used Substance Use Topics Alcohol use: No Drug use: No EXAM: BP 158/88 Pulse (!) 58 Resp 16 LMP 09/17/2008 SpO2 98% 150/88 PHYSICAL EXAM: General Appearance: Well appearing, alert, in no acute distress, well-hydrated, well nourished.. Skin: Skin color, texture, turgor normal, no suspicious rashes or lesions. Head: Normocephalic, no masses, lesions, tenderness or abnormalities. Eyes: Anicteric sclera. Extraocular movements are intact. . Lungs: Lungs clear to auscultation. No wheezing, rhonchi, rales.. Heart: RRR without murmur, gallop, or rubs. No ectopy. Extremities: No deformities, edema, skin discoloration, clubbing or cyanosis. Good capillary refill. Neurologic: Gait normal. ASSESSMENT/PLAN: 1. Primary hypertension - ICD9: 401.9, ICD10: I10 (primary diagnosis) - Uncontrolled - Start lisinopril - Recommend home blood pressure monitoring, to bring results to next visit - Encouraged sodium restriction, DASH or Mediterranean diet - Recommend regular aerobic exercise - LISINOPRIL 10 MG TABLET Discussed potential side effects of ordered medications. Patient voices understanding. R (more content not included)... Normal [facility] XR KNEE 4V AP/PA BOTH+LAT/ME R RTon 02-22-2024 XR KNEE 4V AP/PA BOTH+LAT/TOY RT * * *Final Report* * * DATE OF EXAM: Feb 22 2024 12:47PM WOX 5203 - XR KNEE 4V AP/PA BOTH+LAT/TOY RT / PROCEDURE REASON: Acute pain of right knee * * * * Physician Interpretation * * * * Right knee HISTORY: 68 years old Clinical information: Acute pain of right knee Chronic worsening right knee pain, no known injury. TECHNIQUE: Images: XR KNEE 4V AP/PA BOTH+LAT/TOY RT Comparison: None. RESULT: Findings: No evidence of effusion or fracture. Joint spaces maintained. IMPRESSION: Unremarkable radiograph Pattern Clerk: PSCB Transcribe Date/Time: Feb 26 2024 6:33P Dictated by : MEHNAZ LAI MD This examination was interpreted and the report reviewed and electronically signed by: MEHNAZ LAI MD on Feb 26 2024 6:34PM EST [id number] Normal [facility] Venous Duplex US - Ronni Extre mon 02-11-2024 Venous Duplex US - Ronni Extrem [facility] [address] [place] [address] Venous Duplex US - Ronni Extrem 02/11/24 0901 MR#: [id number] Acct: [id number] Name: LUCAS ASTUDILLO Rep #: [id number] : 1955 68 From: José Miguel Lambert MD Attending Dr: MEGA Hi Status: REG CLI Ordering Dr: Rebecca Weber Date: 02/11/24 Location: [facility] Sex: F C Admitted: Reason For Study: BLE Pain RIGHT LEFT CFV is compressible, phasic, and INCOMPETENT CFV is compressible, phasic, and INCOMPETENT for greater than 1.0 second. for greater than 1.0 second. FV is compressible, spontaneous, phasic, FV is compressible, phasic, and INCOMPETENT competent and demonstrates normal for greater than 1.0 second. augmentation. POP V is compressible, spontaneous, phasic, POP V is compressible, spontaneous, phasic, competent and demonstrates normal competent and demonstrates normal augmentation. augmentation. T/P Trunk is compressible. T/P Trunk is compressible. PTV is compressible. PTV is compressible. LT PerV is compressible. RT PerV is compressible. SSV at junction is competent and measures SSV at junction is competent and measures 0.25 cm. 0.31 cm. SSV mid calf is INCOMPETENT for greater than SSV mid calf is INCOMPETENT for greater than 0.5 seconds and measures 0.25 x 0.24 cm. 0.5 seconds and measures 0.24 x 0.23 cm. SFJ is INCOMPETENT and measures 0.60 cm. SFJ is INCOMPETENT and measures 0.62 cm. GSV proximal thigh measures 0.59 x 0.64 cm. GSV proximal thigh measures 0.42 x 0.40 cm. GSV at knee measures 0.28 x 0.24 cm. GSV at knee measures 0.55 x 0.52 cm. GSV above knee is INCOMPETENT for greater GSV INCOMPETENT throughout for greater than than 0.5 seconds. 0.5 seconds. GSV below knee is competent. ASV proximal thigh is INCOMPETENT for greater ASV mid thigh is INCOMPETENT for greater than than 0.5 seconds and measures 0.43 x 0.37 cm. 0.5 seconds and measures 0.56 x 0.56 cm. ASV proximal calf is INCOMPETENT for greater than 0.5 seconds and measures 0.36 x 0.33 cm. Procedure This is a venous duplex using B-mode, color flow and spectral Doppler. Exam performed in department. The exam was diagnostic. Patient was scanned in reverse Trendelenburg position during reflux assessment. VL/Venous Duplex US - Ronni Extrem Interpretation Summary Deep veins of the bilateral lower extremities are patent and compressible segmentally. There is no evidence of bilateral lower extremity deep vein thrombosis. The bilateral great saphenous veins appear patent and compressible segmentally. Positive for reflux in the right common femoral vein, saphenofemoral junction, great saphenous vein throughout, accessory saphenous vein in the thigh, accessory saphenous vein in the calf, and small saphenous vein. Positive for reflux in the left common femoral vein, femoral vein, saphenofemoral vein, great saphenous vein above the knee, accessory saphenous vein in the thigh, and small saphenous vein. Ordering Physician: Rebecca Weber Referring Physician: Eugenio Peralta Performed By: Daquan Chung, T 02/15/24 1300 Date José Miguel Lambert MD CC: MEGA Hi; Dr. Eugenio Peralta MD Date Dictated: 02/11/24 0901 Date Transcribed: 02/15/24 1300 Pattern Clerk: Signed Normal [facility] /[place] 01-27-2024 /ANIKET [facility] [address] [place] [address] OFFICE VISIT Date of Service: 01/27/24 MR#: [id number] Acct: [id number] Name: LUCAS ASTUDILLO Rep #: [id number] : 1955 Provider: MEGA Hi Age/Sex: 68/F Location: [facility] Status: Signed Intake Vital Signs 10/29/23 21:40 01/27/24 10:36 Height 5 ft 6.5 in Weight: 189 lb BP 130/83 H Blood Pressure Location Lt brachial Position Sitting Respiration 14 Pulse 62 Pulse Source Monitor Temp 98.2 F Temp Source Temporal Pulse Oximetry (%) 98 Oxygen Delivery Method room air Intake Visit Reasons: 2nd Opinion Bilateral varicose veins Is patient in pain?: No Allergies No Known Allergies Allergy (Verified 01/27/24 10:37) Medications ???Medication ???Instructions ???Recorded ???Confirmed ???Type pantoprazole 40 mg tablet,delayed 40 mg PO DAILY 02/26/19 01/27/24 History release calcium carbonate 500 mg PO QDAY 01/27/24 01/27/24 History cholecalciferol (vitamin D3) 10 10 mcg PO QDAY 01/27/24 01/27/24 History mcg (400 unit) capsule Is last menstrual period known: Yes Post menopausal: Yes Patient : No Have you fallen in the past year?: Yes PFSH Surgical History (Updated 01/27/24 @ 10:42 by Sariah Romero) H/O section Hx of tubal ligation Family History (Updated 01/27/24 @ 10:35 by Sariah Romero) Other CAD (coronary artery disease) COPD (chronic obstructive pulmonary disease) Cancer Diabetes Heart disease Hypertension Myocardial infarction Social History Smoking Status: Never smoker HPI HPI HPI: LUCAS ASTUDILLO, is a 68 F who presents to the office today for evaluation and management of bilateral lower extremity varicose veins. She is accompanied to her appointment today by her . She has had these bilateral lower extremity varicose veins for decades, since her first . They have continued to progressively worsen over time. She has a prominent varicosity running along her R anterior thigh/kohler and multiple prominent varicosities along her medial left thigh and calf/kohler. The LLE varicosities are most bothersome for her. She has persistent aching, burning, and itching along these varicosities. She does not noticed much edema. She denies recurrent episodes of phlebitis. She denies any history of VTE. She denies pelvic/buttock/abdominal varicosities, hematuria. She had prior workup in March at [facility]. Her duplex at that time showed R below-knee GSV and R anterior accessory GSV reflux; L common femoral and femoral vein reflux; LSFJ, GSV, anterior accessory GSV, and below-knee SSV reflux. Acute SVT was also noted in the L proximal calf varicosities. She has not had any prior venous interventions. She reports a strong family history of varicose veins. She has had a but no other abdominal surgeries. She has a history of spondylolisthesis but no prior spine surgeries. No history of radiation to the abdomen or pelvis. She did obtain thigh-high compression stockings but they roll down so she has not been very consistent with wearing these. She recently got the panty-hose style but has not tried them yet. She has worn knee-high stockings, but understandably these do not provide any improvement to the symptoms in her thigh varicosities. ROS General General: No weight change, appetite, fatigue, colon cancer, breast cancer or weakness HEENT HEENT: No difficulty swallowing, eye injury, eye surgery, swollen glands or hoarseness Endo Endocrine: No thyroid disease, diabetes mellitus, thyroid cancer, Hair loss, heat intolerance or cold intolerance Skin Skin: No rash or changing moles Musc Musculoskeletal: Yes back problems and arthritis; No rheumatoid arthritis, gout or joint pain Cardio Cardiovascular: No murmur, pacemaker, heart disease, atrial fibrillation, high blood pressure, heart attack, heart stent, palpitations, shortness of breat with exertion or chest pain Psych Psychiatric: No depression, anxiety or hearing voices Resp Respiratory: No shortness of breath, No sleep apnea, No cough, No COPD, No asthma, No emphysema and No wheezing Gastro Gastrointestinal: No abdominal pain, No nausea or vomiting, No diarrhea, No constipation, No blood in stool, Yes acid reflux, Yes hemorrhoids, No ulcers, No gallbladder problem and No black,tarry stools Zak Hematologic: No blood thinners, No blood disorders, No bleeding, No anemia and No blood clots Neuro Neurologic: No system reviewed and no additional complaints, except as documented, No as per HPI, No abnormal gait, Yes abnormal hearing, No abnormal movements, No abnormal speech, No behavioral changes, No burning sensations, No confusion (more content not included)... Normal [facility] DBT Breast - bilateral karen nascimento 01-08-2024 IMPRESSION: There is no mammographic evidence of malignancy in either breast. Routine follow-up mammogram in 1 year is recommended. BI-RADS Category 1: Negative RISK: Based on the Tyrer-Cuzick (TC) risk assessment model, this patient has a 5.1% lifetime risk of developing breast cancer, meaning they are at average risk for developing breast cancer. However, this is only an estimate based on available history provided on the patient's questionnaire. We encourage all patients talk with their providers about these results, further recommendations for managing breast health, and appropriate supplemental screening options if the patient has dense breast tissue. Interpreting Radiologist: Henny Pollack M.D. Electronically signed on: 01/08/2024 Pattern Clerk: MILI Transcribe Date/Time: Jan 07 2024 10:13A Dictated by: HENNY POLLACK MD This examination was interpreted and the report reviewed and electronically signed by: HENNY POLLACK MD on Jan 08 2024 11:25AM [facility] DIVISION OF RADIOLOGY * * *Final Report* * * DATE OF EXAM: Jan 07 2024 10:43AM [facility] 0582 - ELLIOT SCREENING W SAIRA / PROCEDURE REASON: Encounter for screening mammogram for malignant neoplasm of breast * * * * Physician Interpretation * * * * RESULT: [place] [id number] [id number] HISTORY: Patient is 68 years old and is seen for screening and is asymptomatic in both breasts. The patient has no personal history of cancer. COMPARISON STUDIES: The present examination has been compared to prior imaging studies dated 10/27/2019 (mammogram), 11/16/2020 (mammogram), 01/02/2022 (mammogram) and 01/05/2023 (mammogram). MAMMOGRAM TECHNIQUE: The study was acquired using full field digital technology and interpreted from soft copy. Digital Breast Tomosynthesis (DBT) images were obtained and used to assist in the interpretation of this examination. Computer-aided detection was utilized by the radiologist in the interpretation of this examination. MAMMOGRAM FINDINGS: The breasts are heterogeneously dense, which may obscure small masses. No suspicious masses, calcifications or other abnormalities are seen in either breast. There are no significant changes from the prior study. DIVISION OF RADIOLOGY Provider, [facility] - 01/08/2024 * * *Final Report* * * DATE OF EXAM: Jan 07 2024 10:43AM [facility] 0582 - ELLIOT SCREENING W SAIRA / PROCEDURE REASON: Encounter for screening mammogram for malignant neoplasm of breast * * * * Physician Interpretation * * * * RESULT: [facility] [address] [id number] HISTORY: Patient is 68 years old and is seen for screening and is asymptomatic in both breasts. The patient has no personal history of cancer. COMPARISON STUDIES: The present examination has been compared to prior imaging studies dated 10/27/2019 (mammogram), 11/16/2020 (mammogram), 01/02/2022 (mammogram) and 01/05/2023 (mammogram). MAMMOGRAM TECHNIQUE: The study was acquired using full field digital technology and interpreted from soft copy. Digital Breast Tomosynthesis (DBT) images were obtained and used to assist in the interpretation of this examination. Computer-aided detection was utilized by the radiologist in the interpretation of this examination. MAMMOGRAM FINDINGS: The breasts are heterogeneously dense, which may obscure small masses. No suspicious masses, calcifications or other abnormalities are seen in either breast. There are no significant changes from the prior study. IMPRESSION IMPRESSION: There is no mammographic evidence of malignancy in either breast. Routine follow-up mammogram in 1 year is recommended. BI-RADS Category 1: Negative RISK: Based on the Tyrer-Cuzick (TC) risk assessment model, this patient has a 5.1% lifetime risk of developing breast cancer, meaning they are at average risk for developing breast cancer. However, this is only an estimate based on available history provided on the patient's questionnaire. We encourage all patients talk with their providers about these results, further recommendations for managing breast health, and appropriate supplemental screening options if the patient has dense breast tissue. Interpreting Radiologist: Henny Pollack M.D. Electronically signed on: 01/08/2024 Pattern Clerk: MILI Carrollribe Date/Time: Jan 07 2024 10:13A Dictated by: HENNY POLLACK MD This examination was interpreted and the report reviewed and electronically signed by: HENNY POLLACK MD on Jan 08 2024 11:25AM EST [facility] [facility] Breast - bilateral scree ningOrdered By: Ccf Provider on 01-08-2024 [facility] CNOVon 01-07-2024 CNOV Office Visit (OBGYWM ) LUCAS ASTUDILLO ([id number]) 1955 F Date Time Provider Department 01/07/24 11:30 AM TIFFANI GANT OBBRITT During your visit today, we recorded the following information about you: Respiration Blood pressure Weight Height 16/minute 122/70 86.4 kg 1.677 m Tiffani Gant APRN.CNP 01/07/2024 11:40 AM Signed Patient declined research advisor. Lucas is a 68 year old who presents for an annual gynecologic exam without complaints. Family hx of cervical cancer would like a pap today Postmenopausal: Yes HRT use: Yes, Estradiol Vaginal Cream How long: approx 3 yrs. Last Pap: 11/02/2019 normal HPV: 11/02/2019 negative History of abnormal pap: No Last mammogram: 2023 today History of abnormal mammogram: No Sexually active: Yes Pain with intercourse: a little Postcoital bleeding: No OB History T0 L1 SAB1 IAB0 Ectopic1 Multiple0 Live Births0 Comment: 1 section No surgery for ectopic Online Facilitator History LMP: 09/17/2008, Postmenopausal Age at Menarche: Age at First : Age at Menopause: Online Facilitator History Comments: Sexual Activity: Yes; Male; bilateral tubal occlusion Contraception: No contraception data on record PAST MEDICAL HISTORY Diagnosis Date Acute gastritis without mention of hemorrhage Allergic rhinitis due to other allergen Arthritis Cancer (HCC) Deviated septum Dyskinesia of esophagus GERD (gastroesophageal reflux disease) 07/25/2013 Internal hemorrhoids without mention of complication Tinnitus PAST SURGICAL HISTORY Procedure Laterality Date CARPAL TUNNEL 03/09/2009 Rt wrist COLONOSCOPY FLX DX W/COLLJ SPEC WHEN PFRMD 09/06/2007 COLONOSCOPY FLX DX W/COLLJ SPEC WHEN PFRMD 10/05/2017 Colonoscopy EGD 10/20/2022 EGD TRANSORAL BIOPSY SINGLE/MULTIPLE 09/06/2007 ESOPHAGOGASTRODUODENOSCOPY TRANSORAL DIAGNOSTIC 10/05/2017 EGD LIG/TRNSXJ FLP TUBE ABDL/VAG APPR UNI/BI Tubal ligation NASAL ENDOSCOPY DIAG UNILBILAT 01/20/2015 SKIN BIOPSY HX FAMILY HISTORY Problem Relation Age of Onset Cancer Mother ovarian, had negative genetic testing Coronary Artery Disease Father after 55 Hypertension Father Diabetes Father other (hysterecomy) Sister cervical cancer cells other (Precancerous cervix cells) Sister cancerous cells in uterus per Sharon Ellis, STRETCH MACHINE OPERATOR other (hysterectomy) Sister half-sister; unknown etiology Diabetes Maternal Grandmother Cancer Paternal Grandmother possibly ovarian or cervical other (abnormal pap) Daughter other (Precancerous cervix cells) Other Niece (hysterectomy) SOCIAL HISTORY Social History Tobacco Use Smoking status: Never Smokeless tobacco: Never Vaping Use Vaping status: Never Used Substance Use Topics Alcohol use: No Drug use: No REVIEW OF SYSTEMS Abdomen: No abdominal pain, nausea, vomiting, diarrhea, or constipation. No bloating, early satiety, indigestion, or increased flatulence. Bladder: No dysuria, gross hematuria, urinary frequency, urinary urgency, +stress incontinence Breast: No breast lumps, nipple d/c, overlying skin changes, redness or skin retraction Allergies and current medication updated:Yes SENSITIVE EXAM: The sensitive examination was discussed with the Patient or Patient's Authorized Fabric And Accessories Estimator. As applicable, any other physician, advance practice provider, medical student, or other health professional student that will be observing or involved in the sensitive examination for educational or training purposes was discussed with the Patient or Authorized Fabric And Accessories Estimator. The Patient or Authorized Fabric And Accessories Estimator has agreed to proceed with the sensitive examination. (Sensitive examination includes inspection and/or palpation of the breasts, pelvis, prostate and anorectal regions). EXAM: BP 122/70 Resp 16 Ht 5' 6.024 (1.68m) Wt 190 lb 6.4 oz (86.4kg) LMP 09/17/2008 BMI 30.71 kg/(m2). GENERAL: pleasant, female in no apparent distress HEENT: Normocephalic, atraumatic, mucus membranes moist, and no lesions NECK: Supple, full range of motion, no adenopathy, and thyroid normal DERMATOLOGY: Normal, without lesions, non-icteric, and non-hirsute BREAST: soft, non-tender, symmetric, no dominant mass, normal nipple-areolar complex, no lymphadenopathy, and no nipple discharge CHEST: Normal inspiratory effort ABDOMEN: soft, non-tender, and no masses PELVIC: external genitalia normal, normal Bartholin's glands, urethra, [place]'s glands, no vulvar lesions, no cervical lesions, good vaginal support, physiologic discharge present, normal appearing perineal body and perianal region BIMANUAL: uterus normal size, shape and consistency, no adnexal masses, and non-tender RECTOVAGINAL: deferred. NEURO: alert and oriented x3,exam grossly non-focal EXTREMITIES: normal ASSESSMENT/PLAN: 1) Health maintenance: Pap done with HPV (more content not included)... Normal [facility] DBT Breast - bilateral scree ningon 01-07-2024 Radiology Study observation (narrative) [facility] HIGH RISK HUMAN PAPILLOMA NAE (HPV), PCR FOR DETECTION AND GENOTYPINGon 01-07-2024 HPV 16 Ag Ql (Unsp spec) Not detected Normal Not detected [facility] Comment on above: Order Comment: Speci men Type: FLUID SPECIMENOrdering Facility: [facility] Address: [address] [place] [address] Performed By: #### H PVHRT, [id number] ####[facility] LABCLIA [id number] [place] [address] [place] HPV 18 Ag Ql (Unsp spec) Not detected Normal Not detected [facility] Comment on above: Order Comment: Speci men Type: FLUID SPECIMENOrdering Facility: [facility] Address: [address] [place] [address] Performed By: #### H PVHRT, [id number] ####[facility] LABCLIA [id number] [place] [address] [place] HPV 31+33+35+39+45+51+5 2+56+58+59+66+68 DNA GUSTAVO+probe Ql (Cvx) Not detected Normal Not detected [facility] Comment on above: Order Comment: Speci men Type: FLUID SPECIMENOrdering Facility: [facility] Address: [address] [place] [address] Result Comment: High Risk HPV Other Type includes HPV types 31, 33, 35, 39, 45, 51, 52, 56, 58, 59, 66 and 68. Performed By: #### H PVHRT, [id number] ####[facility] LABCLIA [id number] [place] [address] [place] ELLIOT SCREENING W TOMOon 01-06 ELLIOT SCREENING W SAIRA * * *Final Report* * * DATE OF EXAM: Jan 07 2024 10:43AM [id number] - ELLIOT SCREENING W SAIRA / PROCEDURE REASON: Encounter for screening mammogram for malignant neoplasm of breast * * * * Physician Interpretation * * * * RESULT: [place] [address] [place] [address] HISTORY: Patient is 68 years old and is seen for screening and is asymptomatic in both breasts. The patient has no personal history of cancer. COMPARISON STUDIES: The present examination has been compared to prior imaging studies dated 10/27/2019 (mammogram), 11/16/2020 (mammogram), 01/02/2022 (mammogram) and 01/05/2023 (mammogram). MAMMOGRAM TECHNIQUE: The study was acquired using full field digital technology and interpreted from soft copy. Digital Breast Tomosynthesis (DBT) images were obtained and used to assist in the interpretation of this examination. Computer-aided detection was utilized by the radiologist in the interpretation of this examination. MAMMOGRAM FINDINGS: The breasts are heterogeneously dense, which may obscure small masses. No suspicious masses, calcifications or other abnormalities are seen in either breast. There are no significant changes from the prior study. IMPRESSION: There is no mammographic evidence of malignancy in either breast. Routine follow-up mammogram in 1 year is recommended. BI-RADS Category 1: Negative RISK: Based on the Tyrer-Cuzick (TC) risk assessment model, this patient has a 5.1% lifetime risk of developing breast cancer, meaning they are at average risk for developing breast cancer. However, this is only an estimate based on available history provided on the patient's questionnaire. We encourage all patients talk with their providers about these results, further recommendations for managing breast health, and appropriate supplemental screening options if the patient has dense breast tissue. Interpreting Radiologist: Henny Pollack M.D. Electronically signed on: 01/08/2024 Pattern Clerk: MILI Transcribe Date/Time: Jan 07 2024 10:13A Dictated by: HENNY POLLACK MD This examination was interpreted and the report reviewed and electronically signed by: HENNY POLLACK MD on Jan 08 2024 11:25AM EST [id number] Normal [facility] PAP TESTon 01-07-2024 ADEQUACY Normal [facility] Comment on above: Order Comment: Speci men Type: FLUID SPECIMENOrdering Facility: [facility] Address: [address] [place] [address] Result Comment: Sati sfactory for interpretation. No endocervical component Performed By: #### H PVHRViolet, [id number] ####[facility] LABCLIA [id number] [address] STATES OF [facility] CASE REPORT Normal [facility] Comment on above: Order Comment: Speci men Type: FLUID SPECIMENOrdering Facility: [facility] Address: [address] [place] [address] Result Comment: Gyne cologic Cytology Report Case: [id number] Authorizing Provider: Tiffani Gant 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 Collected: 01/07/2024 11:26 AM Ordering Location: OB/Gynecology Received: 01/07/2024 12:00 PM First Screen: Deeds, Hardy, CT, ASCP Specimen: Pap Test, ThinPrep, Cervix Performed By: #### H PVHRT, [id number] ####[facility] LABCLIA [id number] [place] [address] [place] CLINICAL HISTORY, CYTOLOGY, CUTTER WET MACHINE Routine Exam Normal [facility] Comment on above: Order Comment: Speci men Type: FLUID SPECIMENOrdering Facility: [facility] Address: [address] [place] [address] Result Comment: Post Menopausal Performed By: #### H PVHRT, [id number] ####[facility] LABCLIA [id number] [place] [address] [place] FINAL PERFORMING LAB Normal [facility] Comment on above: Order Comment: Speci men Type: FLUID SPECIMENOrdering Facility: [facility] Address: [address] [place] [address] Result Comment: Tech nical component, silk blocker screening performed at [facility], [address] [place], [place] [id number] CLIA# [id number] Diagnostic interpretation performed at [facility], [address] [place] [address] CLIA# [id number] Fruit And Vegetable Classer: Oracio Hilario M.D. Performed By: #### H PVHRT, [id number] ####[facility] LABCLIA [id number] [place] [address] [place] HPV REFLEX Yes HPV Normal [facility] Comment on above: Order Comment: Speci men Type: FLUID SPECIMENOrdering Facility: [facility] Address: [address] [place] [address] Performed By: #### H PVHRT, [id number] ####[facility] LABCLIA [id number] [place] [address] [place] INTERPRETATION, CYTOLOGY, CUTTER WET MACHINE Normal [facility] Comment on above: Order Comment: Speci men Type: FLUID SPECIMENOrdering Facility: [facility] Address: [address] [place] [address] Result Comment: Nega tive for intraepithelial lesion or malignancy. Performed By: #### H PVHRT, [id number] ####[facility] LABCLIA [id number] [address] [place] PAP DISCLAIMER COMMENT The Pap Smear is a screening test for cervical cancer. False negative results occur with all screening tests, emphasizing the need for rescreening at recommended intervals, and clinical correlation. Normal [facility] Comment on above: Order Comment: Speci men Type: FLUID SPECIMENOrdering Facility: [facility] Address: [address] [place] [address] Performed By: #### H PVHRT, [id number] ####[facility] LABCLIA [id number] [address] [place] PAP MATTRESS SPECIALIST COMMENT This specimen has be en analyzed by the ThinPrep Imaging System, an automated imaging and review system, which assists the laboratory in evaluating cells on ThinPrep Pap tests. Following automated imaging, selected brown from every slide are reviewed by a silk blocker. Normal [facility] Comment on above: Order Comment: Speci men Type: FLUID SPECIMENOrdering Facility: [facility] Address: [address] [place] [address] Performed By: #### H PVHRT, [id number] ####[facility] LABCLIA [id number] [address] OF [place] CNOVon 12-24-2023 CNOV Office Visit (FAMPWS ) LUCAS ASTUDILLO ([id number]) 1955 F Date Time Provider Department 12/24/23 2:00 PM NATALIA MONGE FAMPWS During your visit today, we recorded the following information about you: Pulse Respiration Blood pressure Weight 68/minute 16/minute 120/80 88.9 kg Celia iRder MA 12/24/2023 2:11 PM Signed 12/24/2023: Home BP Cuff Validated. Home BP: 125/83 P69 Office BP: 130/82 P:68 Celia KAYLEE Rider December 24, 2023 2:11 PM Natalia Monge APRN.CNP 12/24/2023 2:23 PM Signed This is a 68 year old female who presents today with: Patient presents with: Hypertension: Blood pressure follow up HISTORY OF PRESENT ILLNESS: Lucas Astudillo is a 68 year old female. Patient presents with: Hypertension: Blood pressure follow up HTN: Patient is compliant with meds No Monitors bp at home: Yes. Denies side effects: No. Chest pain: No. Dyspnea: Sometimes Edema: No. Palpitations: Occ. Upper abdominal girgling. Syncope: No. Headache: Yes. Frontal Dizziness: No. PAST MEDICAL HISTORY: PAST MEDICAL HISTORY Diagnosis Date Acute gastritis without mention of hemorrhage Allergic rhinitis due to other allergen Arthritis Cancer (HCC) Deviated septum Dyskinesia of esophagus GERD (gastroesophageal reflux disease) 07/25/2013 Internal hemorrhoids without mention of complication Tinnitus PAST SURGICAL HISTORY Procedure Laterality Date CARPAL TUNNEL 03/09/2009 Rt wrist COLONOSCOPY FLX DX W/COLLJ SPEC WHEN PFRMD 09/06/2007 COLONOSCOPY FLX DX W/COLLJ SPEC WHEN PFRMD 10/05/2017 Colonoscopy EGD 10/20/2022 EGD TRANSORAL BIOPSY SINGLE/MULTIPLE 09/06/2007 ESOPHAGOGASTRODUODENOSCOPY TRANSORAL DIAGNOSTIC 10/05/2017 EGD LIG/TRNSXJ FLP TUBE ABDL/VAG APPR UNI/BI Tubal ligation NASAL ENDOSCOPY DIAG UNILBILAT 01/20/2015 SKIN BIOPSY HX ALLERGIES Adhesive Tape-Silicones and Poison Akanksha MEDICATIONS Current Outpatient Medications Medication Sig pantoprazole DR (PROTONIX) 40 mg tablet Take 1 tablet by mouth once daily. triamcinolone acetonide (KENALOG) 0.1 % cream Apply 1 application to affected area two times a day. sucralfate (CARAFATE) 1 gram tablet Take 1 tablet by mouth before meals and at bedtime. tiZANidine (ZANAFLEX) 4 mg tablet Take 1 tablet by mouth every 8 hours as needed (muscle spasms). pseudoephedrine (SUDAFED) 30 mg tablet Take 1 tablet by mouth every 4 hours as needed. (Patient taking differently: Take 15 mg by mouth every 4 hours as needed.) estradiol (ESTRACE) 0.01 % (0.1 mg/gram) vaginal cream Use small pea sized amount at vaginal opening twice a week. calcium carbonate/vitamin d3(CALCIUM 500 WITH VITAMIN D 500 MG-125 UNIT TAB) Take one(1) tablet twice daily. No current facility-administered medications for this visit. FAMILY HISTORY Problem Relation Age of Onset Cancer Mother ovarian, had negative genetic testing Coronary Artery Disease Father after 55 Hypertension Father Diabetes Father other (hysterecomy) Sister cervical cancer cells other (Precancerous cervix cells) Sister cancerous cells in uterus per Sharon Ellis CNP other (hysterectomy) Sister half-sister; unknown etiology Diabetes Maternal Grandmother Cancer Paternal Grandmother possibly ovarian or cervical other (abnormal pap) Daughter other (Precancerous cervix cells) Other Niece (hysterectomy) Social History Tobacco Use Smoking status: Never Smokeless tobacco: Never Vaping Use Vaping status: Never Used Substance Use Topics Alcohol use: No Drug use: No 120/80 sitting, 128/80 standing EXAM: BP 130/82 Pulse 68 Resp 16 Wt 88.9 kg (195 lb 15.8 oz) LMP 09/17/2008 SpO2 98% BMI 31.63 kg/m? PHYSICAL EXAM: Physical Exam Vitals reviewed. Constitutional: Appearance: Normal appearance. HENT: Head: Normocephalic. Cardiovascular: Rate and Rhythm: Normal rate and regular rhythm. Pulses: Normal pulses. Heart sounds: Normal heart sounds. Pulmonary: Effort: Pulmonary effort is normal. Breath sounds: Normal breath sounds. Abdominal: General: Bowel sounds are normal. Palpations: Abdomen is soft. Musculoskeletal: General: Normal range of motion. Skin: General: Skin is warm and dry. Neurological: General: No focal deficit present. Mental Status: She is alert and oriented to person, place, and time. Psychiatric: Mood and Affect: Mood normal. Behavior: Behavior normal. LABS: ASSESSMENT/PLAN: 1. Sinus congestion - ICD9: 478.19, ICD10: R09.81 (primary diagnosis) Discussed use of coricidin HB - PSEUDOEPHEDRINE 30 MG TABLET- hasn't taken it for a year 2. Elevated blood pressure reading without diagnosis of hypertension - ICD9: 796.2, ICD10: R03.0 - Encouraged dietary sodium restriction/DASH diet - Recommended regular aerobic exercise. - Recommend home blood pressure monitoring, to bring results in on next visi (more content not included)... Normal [facility] AST[facility] ([id number]) 1955 F Date Time Provider Department 12/22/23 NATALIA MONGE [facility] During your visit today, we recorded the following information about you: Crystal Henning RN 12/22/2023 10:56 AM Signed Pt called in and reports she had been to the dentist and another appointment and her BP had been elevated and she wanted to get in to have her BP checked. She states she hasn't been checking it at home like she should. Pt is going to start checking it and bring log in for appointment, along with cuff to be checked. Allergies As of Date: 12/22/2023 Noted Allergy Reaction ADHESIVE TAPE-SILICONES 10/28/2022 2 - Rash Comments: Per patient developed extensive rash from adhesive monitor sticker after endoscopy POISON AKANKSHA 07/28/2005 Date Reviewed: 12/03/2023 Reviewed by: Dano Waterman LPN - Fully Assessed Reason for Visit: Appointment [186] Patient Update [1234] Prescriptions as of 12/22/2023 - pantoprazole DR (PROTONIX) 40 mg tablet Take 1 tablet by mouth once daily. - triamcinolone acetonide (KENALOG) 0.1 % cream Apply 1 application to affected area two times a day. - sucralfate (CARAFATE) 1 gram tablet Take 1 tablet by mouth before meals and at bedtime. - tiZANidine (ZANAFLEX) 4 mg tablet Take 1 tablet by mouth every 8 hours as needed (muscle spasms). - pseudoephedrine (SUDAFED) 30 mg tablet Take 1 tablet by mouth every 4 hours as needed. - estradiol (ESTRACE) 0.01 % (0.1 mg/gram) vaginal cream Use small pea sized amount at vaginal opening twice a week. - calcium carbonate/vitamin d3(CALCIUM 500 WITH VITAMIN D 500 MG-125 UNIT TAB) Take one(1) tablet twice daily. Problem List As Of Date 12/22/2023 Noted Resolved MIXED HYPERLIPIDEMIA [E78.2] 10/07/2005 RHINITIS ALLERGIC, DUE TO POLLEN [J30.1] 01/12/2006 Carpal Tunnel Syndrome [G56.00] 01/12/2006 06/05/2009 Hx of acute gastritis [Z87.19] 09/06/2007 DYSKINESIA OF ESOPHAGUS [K22.4] 09/06/2007 GERD (gastroesophageal reflux disease) [K21.9] 07/25/2013 09/14/2017 Family history of ovarian cancer [Z80.41] 09/08/2016 Encounter for long-term (current) use of medica*07/08/2017 Screening for colorectal cancer [Z12.11, Z12.12]07/08/2017 Gastroesophageal reflux disease [K21.9] 07/08/2017 Lichen sclerosus et atrophicus of the vulva [N9*11/14/2022 Chronic kidney disease, stage 3a (HCC) [N18.31] 11/14/2022 Arthritis of right sacroiliac joint [M47.818] 12/04/2022 Plantar fasciitis [M72.2] 01/19/2023 Flat feet, bilateral [M21.41, M21.42] 01/19/2023 Acute shoulder pain [M25.519] 05/04/2023 Encounter Status:Closed by CRYSTAL HENNING on 12/22/23 Normal [facility] CNOVon 12-03-2023 CNOV Office Visit (FAMPWS ) LUCAS ASTUDILLO ([id number]) 1955 F Date Time Provider Department 12/03/23 9:40 AM MAYRA LAN During your visit today, we recorded the following information about you: Temperature Pulse Respiration Blood pressure 97.7 degrees 64/minute 16/minute 136/86 Weight 87.5 kg Mayra Lan PA-C 12/03/2023 10:02 AM Signed Chief Complaint Patient presents with: Derm Problem: rash HPI Lucas Astudillo is a 68 year old female who presents here today for Above Complaints.. Patient reports prurtic rash on b/l arms and right side chest wall. Was outside a few days prior to rash appearing. No pain but very pruritic. Has tried OTC. Past medical history, appointments, medications, allergies reviewed. Previous Medical History PAST MEDICAL HISTORY No date: Acute gastritis without mention of hemorrhage No date: Allergic rhinitis due to other allergen No date: Arthritis No date: Cancer (HCC) No date: Deviated septum No date: Dyskinesia of esophagus 07/25/2013: GERD (gastroesophageal reflux disease) No date: Internal hemorrhoids without mention of complication No date: Tinnitus Previous Surgical History PAST SURGICAL HISTORY 03/09/2009: CARPAL TUNNEL Comment: Rt wrist 09/06/2007: COLONOSCOPY FLX DX W/COLLJ SPEC WHEN PFRMD 10/05/2017: COLONOSCOPY FLX DX W/COLLJ SPEC WHEN PFRMD Comment: Colonoscopy 10/20/2022: EGD 09/06/2007: EGD TRANSORAL BIOPSY SINGLE/MULTIPLE 10/05/2017: ESOPHAGOGASTRODUODENOSCOPY TRANSORAL DIAGNOSTIC Comment: EGD No date: LIG/TRNSXJ FLP TUBE ABDL/VAG APPR UNI/BI Comment: Tubal ligation 01/20/2015: NASAL ENDOSCOPY DIAG UNILBILAT No date: SKIN BIOPSY HX Family History FAMILY HISTORY Problem Relation Age of Onset Cancer Mother ovarian, had negative genetic testing Coronary Artery Disease Father after 55 Hypertension Father Diabetes Father other (hysterecomy) Sister cervical cancer cells other (Precancerous cervix cells) Sister cancerous cells in uterus per Sharon Ellis CNP other (hysterectomy) Sister half-sister; unknown etiology Diabetes Maternal Grandmother Cancer Paternal Grandmother possibly ovarian or cervical other (abnormal pap) Daughter other (Precancerous cervix cells) Other Niece (hysterectomy) Patient Allergies ALLERGIES Allergen Reactions Adhesive Tape-Silic* Rash Per patient developed extensive rash from adhesive monitor sticker after endoscopy Poison Akanksha Current Medications Current Outpatient Medications on File Prior to Visit Medication Sig sucralfate (CARAFATE) 1 gram tablet Take 1 tablet by mouth before meals and at bedtime. tiZANidine (ZANAFLEX) 4 mg tablet Take 1 tablet by mouth every 8 hours as needed (muscle spasms). pantoprazole DR (PROTONIX) 40 mg tablet Take 1 tablet by mouth once daily. pseudoephedrine (SUDAFED) 30 mg tablet Take 1 tablet by mouth every 4 hours as needed. (Patient taking differently: Take 15 mg by mouth every 4 hours as needed.) estradiol (ESTRACE) 0.01 % (0.1 mg/gram) vaginal cream Use small pea sized amount at vaginal opening twice a week. calcium carbonate/vitamin d3(CALCIUM 500 WITH VITAMIN D 500 MG-125 UNIT TAB) Take one(1) tablet twice daily. No current facility-administered medications on file prior to visit. Social History Social History Tobacco Use Smoking status: Never Smokeless tobacco: Never Vaping Use Vaping status: Never Used Substance Use Topics Alcohol use: No Drug use: No Review of Symptoms REVIEW OF SYSTEMS See hpi EXAM: BP 136/86 (BP Site: Left Arm, BP Position: Sitting, BP Cuff Size: Large Adult) Pulse 64 Temp 36.5 ?C (97.7 ?F) Resp 16 Wt 87.5 kg (193 lb) LMP 09/17/2008 SpO2 97% BMI 31.15 kg/m? General Appearance: Well appearing, alert, in no acute distress, well-hydrated, well nourished.. Skin: raised, erythematous macular-papular rash noted. Located in antecubital space of left arm, posterior right upper arm and right side chest wall. Health Maintenance List Covid-19 Vaccine( season) due on 11/29/2023 Influenza Vaccine(1) due on 11/29/2023 Mammogram Screening due on 01/06/2024 Serum Creatinine due on 10/19/2024 Annual PCP Team Chronic Disease Visit due on 10/25/2024 Depression Screening due on 10/25/2024 Anxiety Screening due on 10/25/2024 Diabetes Screening due on 10/19/2026 Colorectal Cancer Screening due on 10/06/2027 DTaP,Tdap,Td Vaccine(3 - Td or Tdap) due on 10/06/2028 Lipid Screening due on 10/19/2028 Bone Density Screening Completed Advance Directive Discussion Completed RSV Vaccine Completed Hepatitis C Screening Completed Shingrix Vaccine Completed Pneumococcal Vaccine: 65+ Completed Cervical Cancer Screening Discontinued Data reviewed ASSESSMENT/PLAN: 1. Contact dermatitis, unspecified contact dermatitis type, unspecified trigger - ICD (more content not included)... Normal [facility] Elbow min 3 Viewson 10-29-19 Elbow min 3 Views [facility] Imaging Services [address], [place] [address] Elbow min 3 Views MR#: [id number] Acct: [id number] Name: LUCAS ASTUDILLO Rep #: [id number] : 1955 F 68 From: Noam pritchard DO PCP: Dr. Eugenio Peralta MD Status: PRE ER Study: Elbow min 3 Views Date of Exam: 10/29/23 Exam# [id number] Ordering Dr: Harrison Cross DO [id number] EXAM: XR LEFT ELBOW COMPLETE, 3 OR MORE VIEWS CLINICAL INDICATION: injury TECHNIQUE: Frontal, lateral and oblique views of the left elbow. COMPARISON: No relevant prior studies available. FINDINGS: BONES/JOINTS: Spurring of the coronoid process. There is no displacement of the anterior or posterior fat pads. No acute fracture. No subluxation. Normal alignment. Preservation of the joint space. No destructive or sclerotic lesions. SOFT TISSUES: Soft tissue swelling. No radiopaque foreign body. RAD/Elbow min 3 Views IMPRESSION: Soft tissue swelling. Degenerative change. No acute osseous findings. Electronically Signed: Noam Olson DO at 23:21 EDT , CC: Dr. Harrison Cross DO; Dr. Eugenio Peralta MD Pattern Clerk: Signed Normal [facility] Emergency Department Summary on 10-29-2023 Emergency Department Summary [facility] Medical Records Department [address] [place] [address] Emergency Department Summary 10/29/23 MR#: [id number] Acct: [id number] Name: LUCAS ASTUDILLO Rep #: [id number] : 1955 68 From: Harrison Amaya PCP: Dr. Eugenio Peralta MD Status:DEP ER Location: ED HPI HPI - Fall History of Present Illness Chief Complaint: Fall Informant: patient Narrative Narrative: Here with spouse mechanical fall at 7:30 PM this evening. Placed rocks on her embankment, she was rearranging this when she stumbled. She rolled. Pain to left elbow and her back. She bumped her head however no headache no loss of conscious no anticoagulations. She skinned her left knee. She is able to ambulate. Tetanus was in 2019. PFSH PFS Home Medications ???Medication ???Instructions ???Recorded ???Last Taken ???Type pantoprazole 40 mg tablet,delayed 40 mg PO DAILY 02/26/19 Unknown History release Allergy/AdvReac Type Severity Reaction Status Date / Time No Known Allergies Allergy Verified 10/29/23 21:44 Social History Smoking Status: Never smoker ROS ROS ED Constitutional Constitutional ED: Denies chills, fever(s) or sweats Eyes Eyes: Denies change in vision ENT ENT ED: Denies dysphagia or sore throat Cardiovascular Cardiovascular: Denies chest pain, leg edema, palpitations or racing heartbeat Respiratory/Chest Respiratory/Chest: Denies cough, dyspnea or dyspnea on exertion Gastrointestinal Gastrointestinal: Denies abdominal pain, diarrhea, nausea or vomiting Genitourinary Genitourinary ED: Denies dysuria, hematuria or urinary frequency Musculoskeletal Musculoskeletal: Reports back pain and extremity pain; Denies neck pain Integumentary Reports Abrasions; Denies rash or wounds Neurologic Neurologic: Denies headache(s), paresthesias or weakness EXAM Physical Exam Const Vital Signs: 10/29/23 21:40 10/29/23 23:40 10/29/23 23:40 Temperature 97.5 F L Temperature Source Temporal Pulse Rate 97 72 Respiratory Rate 16 16 Respiratory Effort Normal Respiratory Depth Normal Respiratory Pattern Normal Blood Pressure 182/109 H 127/81 H Blood Pressure Mean 133 96 Pulse Ox 97 99 Oxygen Delivery Method Room Air Room Air 10/29/23 23:46 Temperature 98.5 F Temperature Source Pulse Rate 78 Respiratory Rate 16 Respiratory Effort Respiratory Depth Respiratory Pattern Blood Pressure 118/65 Blood Pressure Mean 82 Pulse Ox 100 Oxygen Delivery Method Positive well nourished and well developed Constitutional Narrative: GCS 15, standing ambulatory in the room. General Appearance ED: well developed and NAD HEENT Reports moist mucous membranes normocephalic and atraumatic Eyes EOMs intact bilaterally and conjunctivae normal General Eye ED: Yes normal appearance of both eyes Neck full ROM, no lymphadenopathy and supple General: Negative for tenderness Chest Wall inspection of chest normal and palpation of chest normal Chest: Negative for tenderness Resp normal respiratory effort and normal air movement Resp Narrative: Symmetric breath sounds. Effort and Inspection: symmetric chest movement; Negative for respiratory distress Cardio regular rate, regular rhythm and no murmurs Peripheral Pulses: pulses 2+ throughout GI normal to inspection, nondistended, normoactive bowel sounds and non-tender Palpation: Negative for guarding or rebound tenderness present Back/Spine no CVA tenderness Back/Spine Narrative: Tender palpation lower thoracic spine there is no step-offs. No ecchymosis. Tender palpation upper gluteals with no ecchymosis. No sacral tenderness. Extremity normal to inspection Extremity Narrative: Negative logroll bilaterally. Left lower extremity mild left suprapatellar knee abrasion no patellar tenderness. No deformities. No active bleeding. Left upper extremity: Elbow with abrasion at the olecranon with mild swelling and tenderness. Full range of motion. No pain with pronation or supination. Right upper extremity: No clavicle tenderness. Full range of motion shoulders and elbows. Pulses intact x 4. General Extremety ED: Negative for edema or tenderness General Extremity: Negative for edema Neuro oriented x3, CN's II-XII intact bilaterally and no sensory deficits noted Sensorium / Orientation: awake and alert Skin no rashes or lesions noted and no wounds MDM MDM MDM Narrative Medical decision making narrative: Interventions / MDM: Differential diagnosis: Abrasion, contusions Diagnosis considered but do not suspect: Fracture however x-ray negative My EKG interpretation: N/A Imaging independently reviewed and interpreted by myself: Left elbow 3 views: Soft tissue swelling (more content not included)... Normal [facility] Lumbar Spine 2 or 3 Viewson 10-29-2023 Lumbar Spine 2 or 3 Views [facility] Imaging Services [address] [place], [place] [id number] Lumbar Spine 2 or 3 Views MR#: [id number] Acct: [id number] Name: LUCAS ASTUDILLO Rep #: [id number] : 1955 F 68 From: Noam pritchard DO PCP: Dr. Eugenio Peralta MD Status: PRE ER Study: Lumbar Spine 2 or 3 Views Date of Exam: Exam# [id number] Ordering Dr: Harrison Cross DO [id number] EXAM: XR LUMBOSACRAL SPINE, 2 OR 3 VIEWS CLINICAL INDICATION: injury pain. TECHNIQUE: Frontal and lateral views of the lumbar spine and sacrum. COMPARISON: Thoracic spine on the same date. FINDINGS: VERTEBRAE: Multilevel facet arthrosis and endplate osteophytosis. Bilateral L5 spondylolysis with trace grade 1 anterolisthesis of L5 upon S1. Preserved vertebral body height. No fracture. Preservation of the normal lumbar lordosis. SACRUM/COCCYX: Symmetric arthrosis of the bilateral SI joints. DISC SPACES: Mild multilevel intervertebral disc height loss. SOFT TISSUES: Bilateral tubal ligation clips. GASTROINTESTINAL TRACT: Normal as visualized. Included bowel gas pattern is non-obstructive. RAD/Lumbar Spine 2 or 3 Views IMPRESSION: 1. Bilateral L5 spondylolysis with trace grade 1 anterolisthesis of L5 upon S1. 2. Mild multilevel degenerative changes. No evidence of acute osseous abnormality. Electronically Signed: Noam Olson DO at 23:20 EDT , CC: Dr. Harrison Cross DO; Dr. Eugenio Peralta MD Pattern Clerk: Signed Normal [facility] Thoracic Spine 3 Viewson Thoracic Spine 3 Views [facility] Imaging Services [address] [place] [address] Thoracic Spine 3 Views MR#: [id number] Acct: [id number] Name: LUCAS ASTUDILLO Rep #: [id number] : 1955 F 68 From: Noam pritchard DO PCP: Dr. Eugenio Peralta MD Status: PRE ER Study: Thoracic Spine 3 Views Date of Exam: 10/29/23 Exam# [id number] Ordering Dr: Harrison Cross DO [id number] EXAM: XR THORACIC SPINE, 3 VIEWS CLINICAL INDICATION: injury pain. TECHNIQUE: Frontal, lateral and swimmer''s views of the thoracic spine. COMPARISON: Chest radiograph, 05/24/2019 FINDINGS: VERTEBRAE: Multilevel facet arthrosis and endplate osteophytosis. No spondylolisthesis. Preservation of the normal thoracic kyphosis. No fracture or subluxation. DISC SPACES: Multilevel intervertebral disc height loss. RAD/Thoracic Spine 3 Views IMPRESSION: Degenerative changes. No acute osseous findings. Electronically Signed: Noam Olson DO at 23:20 EDT , CC: Dr. Harrison Cross DO; Dr. Eugenio Peralta MD Pattern Clerk: [facility] LUCAS ASTUDILLO ([id number]) 1955 F Date Time Provider Department 10/26/23 11:00 AM [facility] today, we recorded the following information about you: Pulse Blood pressure Weight Height 63/minute 136/88 88.5 kg 1.676 m Eugenio Peralta MD 10/26/2023 11:21 AM Signed Lucas Astudillo is a 68 year old female here for a Medicare wellness visit. Discussed labs. Medicare Health Risk Assessment General Health Very good Exercise: Minutes/Day 20 min Exercise: Days/Week 2 days Alcohol: Daily Use Never Alcohol: Drinks/Day Patient does not drink Alcohol: 6 or more drinks Never Feel off balance None. Concerns: Teeth/Dentures None Concerns: Sexual function none Troubled by feelings no Frequency: Eating healthy diet Good. ADLs requiring help Does own Adl's Safety precautions in home/vehicle Yes Smoke, vape, chews tobacco No Difficulty hearing Has chronic tinnitus. Has had ears tested. Difficulty seeing Wears glasses for distance. Current Providers Specialists: I have reviewed specialist-related care of the patient in the medical record. Dr Kovacs, sees [facility], [facility]. Medical/Family history review Reviewed and updated allergies. Opioid use review Opioid Medications (last 90 days) No data to display Anxiety/Depression screening PHQ-9 Score: 0. JONY-7 Score: 1 (Minimal Anxiety) Recommendation: no further intervention at this time Cognitive screening /5 Cognitive screening reviewed and No further action needed (score 3-5). Functional Observation Was the patient's Timed Up AND Go test unsteady or ? 12 seconds? No Advance Care Planning Surrogate decision maker and/or advance care plan documented is her surrogate. REVIEW OF SYSTEMS GENERAL: No weight loss, malaise or fevers HEENT: Negative for frequent or significant headaches, No changes in hearing or vision, no nose bleeds or other nasal problems RESPIRATORY: Negative for cough, hemoptysis, wheezing, COPD, dyspnea or shortness of breath CARDIOVASCULAR: Negative for chest pain, leg swelling, hypertension, CHF or palpitations GI: No nausea, vomiting, or diarrhea : No history of dysuria, frequency or incontinence CUT[employer] WET MACHINE: Negative for abnormal vaginal bleeding, abnormal vaginal discharge SKIN: Negative for lesions, rash, and itching HEMATOLOGY/LYMPHOLOGY: Negative for prolonged bleeding, bruising easily or swollen nodes Measurements BP 136/88 Pulse 63 Ht 167.6 cm (5' 6) Wt 88.5 kg (195 lb) LMP 09/17/2008 SpO2 98% BMI 31.47 kg/m? Vision Screening: Follows with optometry/ophthalmology PHYSICAL EXAM: GEN: pleasant, no acute distress, alert HEENT: PERRL, EOMI, MMM NECK: supple, no lymphadenopathy, no thyromegaly HEART: regular rate, regular rhythm, no murmurs LUNGS: clear to auscultation, no wheezes or crackles, no increased WOB ABD: soft, non-distended, no masses palpated, non-tender EXT: no clubbing, no cyanosis, no edema Assessment/Plan Medicare annual wellness visit, subsequent (Z00.00) - Counseled on healthy diet and regular exercise - Personalized prevention plan provided Allergies As of Date: 10/26/2023 Noted Allergy Reaction ADHESIVE TAPE-SILICONES 10/28/2022 2 - Rash Comments: Per patient developed extensive rash from adhesive monitor sticker after endoscopy POISON AKANKSHA 07/28/2005 Date Reviewed: 10/26/2023 Reviewed by: Lin Rouse MA - Fully Assessed Reason for Visit: Wellness [440] Primary Visit Diagnosis:Mixed hyperlipidemia [E78.2] Other Visit Diagnoses:Chronic kidney disease, stage 3a (HCC) [N18.31] Screening for depression [Z13.31] Encounter for screening examination for other mental health and behavioral disorders [Z13.39] Order(s):DEPRESSION SCREENING [7701569] Order #: [id number]: 1 ANXIETY SCREENING [[id number]] Order #: [id number]: 1 ADVANCE CARE PLAN DISCUSSION [[id number]] Order #: [id number]: 1 Prescriptions as of 10/26/2023 - sucralfate (CARAFATE) 1 gram tablet Take 1 tablet by mouth before meals and at bedtime. - tiZANidine (ZANAFLEX) 4 mg tablet Take 1 tablet by mouth every 8 hours as needed (muscle spasms). - pantoprazole DR (PROTONIX) 40 mg tablet Take 1 tablet by mouth once daily. - pseudoephedrine (SUDAFED) 30 mg tablet Take 1 tablet by mouth every 4 hours as needed. - estradiol (ESTRACE) 0.01 % (0.1 mg/gram) vaginal cream Use small pea sized amount at vaginal opening twice a week. - calcium carbonate/vitamin d3(CALCIUM 500 WITH VITAMIN D 500 MG-125 UNIT TAB) Take one(1) tablet twice daily. Problem List As Of Date 10/26/2023 Noted Resolved MIXED HYPERLIPIDEMIA [E78.2] 10/07/2005 RHINITIS ALLERGIC, DUE TO POLLEN [J30.1] 01/12/2006 Carpal Tunnel Syndrome [G56.00] 01/12/2006 06/05/2009 Hx of acute gastritis [Z87.19] 09/06/2007 DYSKINESIA OF ESOPHAGUS [K22.4] (more content not included)... Normal [facility] CBC W Auto Differential pane l (Bld)on 10-20-2023 Basophils (Bld) [#/Vol] 10*3/uL Normal <0.11 [facility] Comment on above: Order Comment: Speci men Type: BLOOD SPECIMENOrdering Facility: [facility] Address: [address] [place] [address] Performed By: #### 5 7021-8 ####[facility] LABCLIA [id number] [place] [address] [place] Basophils/100 WBC (Bld) 0.2 % Normal [facility] Comment on above: Order Comment: Speci men Type: BLOOD SPECIMENOrdering Facility: [facility] Address: [address] [place] [address] Performed By: #### 5 7021-8 ####[facility] LABCLIA [id number] [place] [address] [place] Differential cell count method Nom (Bld) Auto Normal [facility] Comment on above: Order Comment: Speci men Type: BLOOD SPECIMENOrdering Facility: [facility] Address: [address] [place] [address] Performed By: #### 5 7021-8 ####[facility] LABCLIA [id number] [place] [address] [place] Eosinophils (Bld) [#/Vol] 0.08 10*3/uL Normal <0.46 [facility] Comment on above: Order Comment: Speci men Type: BLOOD SPECIMENOrdering Facility: [facility] Address: [address] [place] [address] Performed By: #### 5 7021-8 ####[facility] LABCLIA [id number] [place] [address] [place] Eosinophils/100 WBC (Bld) 1.8 % Normal [facility] Comment on above: Order Comment: Speci men Type: BLOOD SPECIMENOrdering Facility: [facility] Address: [address] [place] [address] Performed By: #### 5 7021-8 ####[facility] LABCLIA [id number] [place] [address] [place] Erythrocyte distribution width (RBC) [Ratio] 13.9 % Normal 11.5-15.0 [facility] Comment on above: Order Comment: Speci men Type: BLOOD SPECIMENOrdering Facility: [facility] Address: [address] [place] [address] Performed By: #### 5 7021-8 ####[facility] LABIA [id number] [place] [address] [place] Hematocrit (Bld) [Volume fraction] 41.5 % Normal 36.0-46.0 [facility] Comment on above: Order Comment: Speci men Type: BLOOD SPECIMENOrdering Facility: [facility] Address: [address] [place] [address] Performed By: #### 5 7021-8 ####[facility] LABCLIA [id number] [place] [address] [place] Hemoglobin (Bld) [Mass/Vol] 13.2 g/dL Normal 11.5-15.5 [facility] Comment on above: Order Comment: Speci men Type: BLOOD SPECIMENOrdering Facility: [facility] Address: [address] [place] [address] Performed By: #### 5 7021-8 ####[facility] LABCLIA [id number] [place] [address] [place] Immature granulocytes (Bld) [#/Vol] 10*3/uL Normal <0.10 [facility] Comment on above: Order Comment: Speci men Type: BLOOD SPECIMENOrdering Facility: [facility] Address: [address] [place] [address] Performed By: #### 5 7021-8 ####[facility] LABCLIA [id number] [place] [address] [place] Immature granulocytes/100 WBC (Bld) 0.2 % Normal [facility] Comment on above: Order Comment: Speci men Type: BLOOD SPECIMENOrdering Facility: [facility] Address: [address] [place] [address] Performed By: #### 5 7021-8 ####[facility] LABCLIA [id number] [place] [address] [place] Lymphocytes (Bld) [#/Vol] 1.43 10*3/uL Normal 1.00-4.00 [facility] Comment on above: Order Comment: Speci men Type: BLOOD SPECIMENOrdering Facility: [facility] Address: [address] [place] [address] Performed By: #### 5 7021-8 ####[facility] LABCLIA [id number] [place] [address] [place] Lymphocytes/100 WBC (Bld) 32.4 % Normal [facility] Comment on above: Order Comment: Speci men Type: BLOOD SPECIMENOrdering Facility: [facility] Address: [address] [place] [address] Performed By: #### 5 7021-8 ####[facility] LABCLIA [id number] [place] [address] [place] MCH (RBC) [Entitic mass] 29.2 pg Normal 26.0-34.0 [facility] Comment on above: Order Comment: Speci men Type: BLOOD SPECIMENOrdering Facility: [facility] Address: [address] [place] [address] Performed By: #### 5 7021-8 ####[facility] LABCLIA [id number] [place] [address] [place] MCHC (RBC) [Mass/Vol] 31.8 g/dL Normal 30.5-36.0 [facility] Comment on above: Order Comment: Speci men Type: BLOOD SPECIMENOrdering Facility: [facility] Address: [address] [place] [address] Performed By: #### 5 7021-8 ####[facility] LABIA [id number] [place] [address] [place] MCV (RBC) [Entitic vol] 91.8 fL Normal 80.0-100.0 [facility] Comment on above: Order Comment: Speci men Type: BLOOD SPECIMENOrdering Facility: [facility] Address: [address] [place] [address] Performed By: #### 5 7021-8 ####[facility] LABIA [id number] [place] [address] [place] Monocytes (Bld) [#/Vol] 0.26 10*3/uL Normal <0.87 [facility] Comment on above: Order Comment: Speci men Type: BLOOD SPECIMENOrdering Facility: [facility] Address: [address] [place] [address] Performed By: #### 5 7021-8 ####[facility] LABIA [id number] [place] [address] [place] Monocytes/100 WBC (Bld) 5.9 % Normal [facility] Comment on above: Order Comment: Speci men Type: BLOOD SPECIMENOrdering Facility: [facility] Address: [address] [place] [address] Performed By: #### 5 7021-8 ####[facility] LABIA [id number] [place] [address] [place] Neutrophils (Bld) [#/Vol] 2.63 10*3/uL Normal 1.45-7.50 [facility] Comment on above: Order Comment: Speci men Type: BLOOD SPECIMENOrdering Facility: [facility] Address: [address] [place] [address] Performed By: #### 5 7021-8 ####[facility] LABCLIA [id number] [place] [address] [place] Neutrophils/100 WBC (Bld) 59.5 % Normal [facility] Comment on above: Order Comment: Speci men Type: BLOOD SPECIMENOrdering Facility: [facility] Address: [address] [place] [address] Performed By: #### 5 7021-8 ####[facility] LABCLIA [id number] [place] [address] [place] Nucleated RBC (Bld) [#/Vol] 10*3/uL Normal <0.01 [facility] Comment on above: Order Comment: Speci men Type: BLOOD SPECIMENOrdering Facility: [facility] Address: [address] [place] [address] Performed By: #### 5 7021-8 ####[facility] LABCLIA [id number] [place] [address] [place] Nucleated RBC/100 WBC (Bld) [Ratio] 0.0 /100 WBC Normal [facility] Comment on above: Order Comment: Speci men Type: BLOOD SPECIMENOrdering Facility: [facility] Address: [address] [place] [address] Performed By: #### 5 7021-8 ####[facility] LABIA [id number] [place] [address] [place] Platelet mean volume (Bld) [Entitic vol] 11.7 fL Normal 9.0-12.7 [facility] Comment on above: Order Comment: Speci men Type: BLOOD SPECIMENOrdering Facility: [facility] Address: [address] [place], [place] [address] Performed By: #### 5 7021-8 ####[facility] LABCLIA [id number] [address] [address] [place] Platelets (Bld) [#/Vol] 169 10*3/uL Normal 150-400 [facility] Comment on above: Order Comment: Speci men Type: BLOOD SPECIMENOrdering Facility: [facility] Address: [address] [place] [address] Performed By: #### 5 7021-8 ####[facility] LABIA [id number] [address] [address] [place] RBC (Bld) [#/Vol] 4.52 10*6/uL Normal 3.90-5.20 [facility] Comment on above: Order Comment: Speci men Type: BLOOD SPECIMENOrdering Facility: [facility] Address: [address] [place] [address] Performed By: #### 5 7021-8 ####[facility] LABIA [id number] [place] [id number] [place] WBC (Bld) [#/Vol] 4.42 10*3/uL Normal 3.70-11.00 [facility] Comment on above: Order Comment: Speci men Type: BLOOD SPECIMENOrdering Facility: [facility] Address: [address] [place] [address] Performed By: #### 5 7021-8 ####[facility] LABIA [id number] [address] [address] [place] Comprehensive metabolic 2000 panelon 10-20-2023 Albumin [Mass/Vol] 4.1 g/dL Normal 3.9-4.9 [facility] Comment on above: Order Comment: Speci men Type: BLOOD SPECIMENOrdering Facility: [facility] Address: [address] [place] [address] Performed By: #### 2 4331-1, 15989-6 ####[facility] LABCLIA [id number] [place] [id number] [place] ALP [Catalytic activity/Vol] 74 U/L Normal 34-123 [facility] Comment on above: Order Comment: Speci men Type: BLOOD SPECIMENOrdering Facility: [facility] Address: [address] [place] [address] Performed By: #### 2 4331-1, 01176-2 ####[facility] LABCLIA [id number] [place] [address] [place] ALT [Catalytic activity/Vol] 14 U/L Normal 7-38 [facility] Comment on above: Order Comment: Speci men Type: BLOOD SPECIMENOrdering Facility: [facility] Address: [address] [place] [address] Performed By: #### 2 4331-1, 03290-3 ####[facility] LABCLIA [id number] [place] [address] [place] Anion gap [Moles/Vol] 10 mmol/L Normal 8-15 [facility] Comment on above: Order Comment: Speci men Type: BLOOD SPECIMENOrdering Facility: [facility] Address: [address] [place] [address] Performed By: #### 2 4331-1, 21882-8 ####[facility] LABCLIA [id number] [place] [address] [place] AST [Catalytic activity/Vol] 18 U/L Normal 13-35 [facility] Comment on above: Order Comment: Speci men Type: BLOOD SPECIMENOrdering Facility: [facility] Address: [address] [place] [address] Performed By: #### 2 4331-1, 31828-9 ####[facility] LABCLIA [id number] [place] [id number] [place] Bilirubin [Mass/Vol] 0.4 mg/dL Normal 0.2-1.3 [facility] Comment on above: Order Comment: Speci men Type: BLOOD SPECIMENOrdering Facility: [facility] Address: [address] [place] [address] Performed By: #### 2 4331-1, ####[facility] LABCLIA [id number] [place] [address] [place] Calcium [Mass/Vol] 9.4 mg/dL Normal 8.5-10.2 [facility] Comment on above: Order Comment: Speci men Type: BLOOD SPECIMENOrdering Facility: [facility] Address: [address] [place] [address] Performed By: #### 2 4331-1, ####[facility] LABCLIA [id number] [place] [address] [place] Chloride [Moles/Vol] 107 mmol/L Normal 98-107 [facility] Comment on above: Order Comment: Speci men Type: BLOOD SPECIMENOrdering Facility: [facility] Address: [address] [place] [address] Performed By: #### 2 4331-1, ####[facility] LABCLIA [id number] [place] [address] [place] CO2 [Moles/Vol] 25 mmol/L Normal 22-30 [facility] Comment on above: Order Comment: Speci men Type: BLOOD SPECIMENOrdering Facility: [facility] Address: [address] [place] [id number] Performed By: #### 2 4331-1, ####[facility] LABCLIA [id number] [place] [address] [place] Creatinine [Mass/Vol] 1.01 mg/dL High 0.58-0.96 [facility] Comment on above: Order Comment: Speci men Type: BLOOD SPECIMENOrdering Facility: [facility] Address: [address] [place], [place] [address] Performed By: #### 2 4331-1, 95269-0 ####[facility] LABIA [id number] [place] [address] [place] Creatinine and Glomerular filtration rate.predicted panel (S/P/Bld) 61 mL/min/1.73m??? Normal >=60 [facility] Comment on above: Order Comment: Jose R zuniga Type: BLOOD SPECIMENOrdering Facility: [facility] Address: [address] [place] [address] Result Comment: Debra mated Glomerular Filtration Rate (eGFR) is calculated using the 2020 CKD-EPI creatinine equation. This equation utilizes serum creatinine, sex, and age as parameters. The creatinine assay has traceable calibration to isotope dilution-mass spectrometry. Refer to KDIGO guidelines for clinical interpretation. In patients with unstable renal function, e.g. those with acute kidney injury, the eGFR may not accurately reflect actual GFR. Performed By: #### 2 4331-1, 23171-3 ####[facility] LABIA [id number] [place] [address] [place] Glucose [Mass/Vol] 87 mg/dL Normal 74-99 [facility] Comment on above: Order Comment: Jose R zuniga Type: BLOOD SPECIMENOrdering Facility: [facility] Address: [address] [place] [address] Result Comment: The [place] Diabetes Association (ADA) provides guidance for cutoff values for fasting glucose and random glucose. The ADA defines fasting as no caloric intake for at least 8 hours. Fasting plasma glucose results between 100 to 125 mg/dL indicate increased risk for diabetes (prediabetes). Fasting plasma glucose results greater than or equal to 126 mg/dL meet the criteria for diagnosis of diabetes. In the absence of unequivocal hyperglycemia, results should be confirmed by repeat testing. In a patient with classic symptoms of hyperglycemia or hyperglycemic crisis, random plasma glucose results greater than or equal to 200 mg/dL meet the criteria for diagnosis of diabetes. Reference: Standards of Medical Care in Diabetes 2016, [place] [employer] Association. Diabetes Care. 2016.39(Suppl 1). Performed By: #### 2 4331-, ####[facility] LABCLIA [id number] [address] [address] [place] Potassium [Moles/Vol] 4.4 mmol/L Normal 3.7-5.1 [facility] Comment on above: Order Comment: Speci men Type: BLOOD SPECIMENOrdering Facility: [facility] Address: [address] [place] [address] Performed By: #### 2 4331-, ####[facility] LABCLIA [id number] [place] [address] [place] Protein [Mass/Vol] 7.2 g/dL Normal 6.3-8.0 [facility] Comment on above: Order Comment: Speci men Type: BLOOD SPECIMENOrdering Facility: [facility] Address: [address] [place] [address] Performed By: #### 2 43303-30, ####[facility] LABIA [id number] [place] [id number] [place] Sodium [Moles/Vol] 142 mmol/L Normal 136-144 [facility] Comment on above: Order Comment: Speci men Type: BLOOD SPECIMENOrdering Facility: [facility] Address: [address] [place] [address] Performed By: #### 2 4331-, ####[facility] LABCLIA [id number] [place] [id number] [place] Urea nitrogen [Mass/Vol] 19 mg/dL Normal 7-21 [facility] Comment on above: Order Comment: Speci men Type: BLOOD SPECIMENOrdering Facility: [facility] Address: [address] [place] [address] Performed By: #### 2 4331-1, ####[facility] LABCLIA [id number] [place] [id number] [place] Lipid 1996 panelon 07-23-202 4 Cholesterol [Mass/Vol] 136 mg/dL Normal <200 [facility] Comment on above: Order Comment: Speci men Type: BLOOD SPECIMENOrdering Facility: [facility] Address: [address] [place] [address] Result Comment: <200 mg/dL, Desirable 200-239 mg/dL, Borderline high >239 mg/dL, High Performed By: #### 2 4331-1, 70457-2 ####[facility] LABCLIA [id number] [address] [place] [facility] Cholesterol in HDL [Mass/Vol] 37 mg/dL Low >39 [facility] Comment on above: Order Comment: Speci men Type: BLOOD SPECIMENOrdering Facility: [facility] Address: [address] [place] [address] Result Comment: 40-5 9 mg/dL, Acceptable >59 mg/dL, High: Negative risk factor for coronary heart disease <40 mg/dL, Low: Positive risk factor for coronary heart disease Performed By: #### 2 4331-1, 27699-9 ####[facility] LABCLIA [id number] [address] [facility] Cholesterol in LDL [Mass/Vol] 73 mg/dL Normal <100 [facility] Comment on above: Order Comment: Speci men Type: BLOOD SPECIMENOrdering Facility: [facility] Address: [address] [place] [address] Result Comment: <100 mg/dL, Optimal 100-129 mg/dL, Near optimal/above optimal 130-159 mg/dL, Borderline high 160-189 mg/dL, High >189 mg/dL, Very high Secondary prevention optimal LDL Cholesterol levels are recommended to be < 70 mg/dL Performed By: #### 2 4331-1, 88166-2 ####[facility] LABCLIA [id number] [facility] [place] [id number] [place] Cholesterol in LDL/Cholesterol in HDL [Mass ratio] 1.97 {ratio} Normal <2.54 [facility] Comment on above: Order Comment: Jose R zuniga Type: BLOOD SPECIMENOrdering Facility: [facility] Address: [address] [place] [address] Result Comment: Rick alexander: 1. National Cholesterol Education Program ATP III Guideline At-A-Glance Quick Desk Reference: National Heart, Lung, and Blood [place]. National Institutes of Health. 2001: NIH Publication No. 01-3305. 2. An International Atherosclerosis Society position paper: global recommendations for the management of dyslipidemia: executive summary, Atherosclerosis. 2014: 232(2):410-413. Performed By: #### 2 4331-1, ####[facility] LABCLIA [id number] [place] [address] [place] Cholesterol in VLDL [Mass/Vol] 26 mg/dL Normal <30 [facility] Comment on above: Order Comment: Jose R zuniga Type: BLOOD SPECIMENOrdering Facility: [facility] Address: [address] [place] [address] Performed By: #### 2 4331-, ####[facility] LABCLIA [id number] [place] [address] [place] Cholesterol non HDL [Mass/Vol] 99 mg/dL Normal <130 [facility] Comment on above: Order Comment: Jose R zuniga Type: BLOOD SPECIMENOrdering Facility: [facility] Address: [address] [place] [address] Result Comment: <130 mg/dL, Optimal 130-159 mg/dL, Near optimal/above optimal 160-189 mg/dL, Borderline high 190-219 mg/dL, High >219 mg/dL, Very high Secondary prevention optimal non HDL Cholesterol levels are recommended to be <100 mg/dL Performed By: #### 2 4331-1, 57507-2 ####[facility] LABCLIA [id number] [place] [address] [place] Cholesterol.total/C holesterol in HDL [Mass ratio] 3.68 {ratio} Normal <5.10 [facility] Comment on above: Order Comment: Speci men Type: BLOOD SPECIMENOrdering Facility: [facility] Address: [address] [place] [address] Performed By: #### 2 4331-1, 59516-2 ####[facility] LABCLIA [id number] [place] [address] [place] FASTING TIME 14 hrs Normal [facility] Comment on above: Order Comment: Speci men Type: BLOOD SPECIMENOrdering Facility: [facility] Address: [address] [place] [address] Performed By: #### 2 4331-1, ####[facility] LABCLIA [id number] [place] [address] [place] Triglyceride [Mass/Vol] 130 mg/dL Normal <150 [facility] Comment on above: Order Comment: Speci men Type: BLOOD SPECIMENOrdering Facility: [facility] Address: [address] [place] [address] Result Comment: <150 mg/dL, Normal 150-199 mg/dL, Borderline high 200-499 mg/dL, High >499 mg/dL, Very high Performed By: #### 2 4331-1, 34874-9 ####[facility] LABCLIA [id number] [place] [address] [place] CNOVon 08-01-2023 CNOV Office Visit ([facility] ) LUCAS ASTUDILLO ([id number]) 1955 F Date Time Provider Department 08/01/23 10:45 AM ENMANUEL WONG [facility] During your visit today, we recorded the following information about you: Temperature Pulse Respiration Blood pressure 98.1 degrees 62/minute 18/minute 162/79 Weight 88.4 kg Enmanuel Wong MD 08/01/2023 10:57 AM Signed Patient presents with: Pain: L side rib pain x1 week HPI: Left chest pain: Duration: 7 days. Pain started after sitting on a bucket with her side [place] [address] [place] [employer] Location: left lateral lower ribs Character: dull, aching, and sometimes sharp Radiation: moving around to the front of the lower left ribs Aggravating: bending and twisting, sleeping on the left side Relieving: Pain relievers: Tylenol and ice Associated: Pertinent negatives: Denies cough, shortness of breath, fever, palpitations PAST MEDICAL HISTORY Diagnosis Date Acute gastritis without mention of hemorrhage Allergic rhinitis due to other allergen Arthritis Cancer (HCC) Deviated septum Dyskinesia of esophagus GERD (gastroesophageal reflux disease) 07/25/2013 Internal hemorrhoids without mention of complication Tinnitus MEDICATIONS: sucralfate (CARAFATE) 1 gram tablet Take 1 tablet by mouth before meals and at bedtime. pantoprazole DR (PROTONIX) 40 mg tablet Take 1 tablet by mouth once daily. calcium carbonate/vitamin d3(CALCIUM 500 WITH VITAMIN D 500 MG-125 UNIT TAB) Take one(1) tablet twice daily. tiZANidine (ZANAFLEX) 4 mg tablet Take 1 tablet by mouth every 8 hours as needed (muscle spasms). benzonatate (TESSALON PERLES) 100 mg capsule Take 1 capsule by mouth three times a day as needed for cough. (Patient not taking: Reported on 04/10/2023) pseudoephedrine (SUDAFED) 30 mg tablet Take 1 tablet by mouth every 4 hours as needed. (Patient taking differently: Take 15 mg by mouth every 4 hours as needed.) estradiol (ESTRACE) 0.01 % (0.1 mg/gram) vaginal cream Use small pea sized amount at vaginal opening twice a week. ALLERGIES: ALLERGIES Allergen Reactions Adhesive Tape-Silic* Rash Per patient developed extensive rash from adhesive monitor sticker after endoscopy Poison Akanksha VITALS: BP 162/79 Pulse 62 Temp 36.7 ?C (98.1 ?F) Resp 18 Wt 88.4 kg (194 lb 14.2 oz) LMP 09/17/2008 SpO2 99% BMI 31.46 kg/m? PHYSICAL EXAM: GEN: pleasant, no acute distress, alert HEENT: PERRL, EOMI, MMM NECK: supple, HEART: regular rate, regular rhythm, no murmurs LUNGS: clear to auscultation, no wheezes or crackles, no increased WOB CHEST: No midline vertebral or paraspinal tenderness. Left lower rib tenderness in the axillary line to the costochondral junction. ABD: soft, non-distended, no masses palpated, non-tender EXT: no clubbing, no cyanosis, no edema ASSESSMENT/PLAN: 1. Rib pain on left side - ICD9: 786.50, ICD10: R07.81 Reproducible musculoskeletal left rib pain. - PREDNISONE 10 MG TABLET taper. Continue as needed acetaminophen and ice. Follow up with cough, shortness of breath, increasing chest pain, or late onset fever. Enmanuel Wong MD Allergies As of Date: 08/01/2023 Noted Allergy Reaction ADHESIVE TAPE-SILICONES 10/28/2022 2 - Rash Comments: Per patient developed extensive rash from adhesive monitor sticker after endoscopy POISON AKANKSHA 07/28/2005 Date Reviewed: 08/01/2023 Reviewed by: Aleida Walsh MA - Fully Assessed Reason for Visit: Pain [78] Cmt: L side rib pain x1 week Primary Visit Diagnosis:Rib pain on left side [R07.81] Order(s):predniSONE (DELTASONE) 10 mg tabletTake 4 tablets by mouth once daily for 3 days, THEN 2 tablets once daily for 2 days, THEN 1 tablet once daily for 2 days. Take with food..Disp: 18 tabletRfl: 0 Prescriptions as of 08/01/2023 - predniSONE (DELTASONE) 10 mg tablet Take 4 tablets by mouth once daily for 3 days, THEN 2 tablets once daily for 2 days, THEN 1 tablet once daily for 2 days. Take with food.. - sucralfate (CARAFATE) 1 gram tablet Take 1 tablet by mouth before meals and at bedtime. - tiZANidine (ZANAFLEX) 4 mg tablet Take 1 tablet by mouth every 8 hours as needed (muscle spasms). - benzonatate (TESSALON PERLES) 100 mg capsule Take 1 capsule by mouth three times a day as needed for cough. - pantoprazole DR (PROTONIX) 40 mg tablet Take 1 tablet by mouth once daily. - pseudoephedrine (SUDAFED) 30 mg tablet Take 1 tablet by mouth every 4 hours as needed. - estradiol (ESTRACE) 0.01 % (0.1 mg/gram) vaginal cream Use small pea sized amount at vaginal opening twice a week. - calcium carbonate/vitamin d3(CALCIUM 500 WITH VITAMIN D 500 MG-125 UNIT TAB) Take one(1) tablet twice daily. Problem List As Of Date 08/01/2023 Noted Resolved MIXED HYPERLIPIDEMIA [E78.2] 10/07/2005 RHINITIS ALLERGIC, DUE TO POLLEN [J30.1] 01/12/2006 Carpal Tunn (more content not included)... Normal [facility] CNOVon 05-26-2023 CNOV Office Visit ([facility] ) LUCAS ASTUDILLO ([id number]) 1955 F Date Time Provider Department 05/26/23 2:30 PM LEXY KOVACS [facility] During your visit today, we recorded the following information about you: Pulse Blood pressure 64/minute 125/76 Lexy Kovacs, 05/26/2023 3:08 PM Signed [facility] [place] DEPARTMENT OF VASCULAR SURGERY OUTPATIENT VISIT DATE May 26, 2023 OUTPATIENT VISIT TYPE ESTABLISHED SERVICE DATE: 05/26/2023 SERVICE TIME: 2:25 PM PRIMARY CARE PHYSICIAN: Eugenio Peralta MD HISTORY OF PRESENT ILLNESS: Ms. Astudillo is a 67 year old female who presents today for a vascular surgery follow-up visit for symptomatic varicose veins. She has been wearing compression however still has symptoms which have worsened over time. PAST MEDICAL HISTORY Diagnosis Date Acute gastritis without mention of hemorrhage Allergic rhinitis due to other allergen Arthritis Cancer (HCC) Deviated septum Dyskinesia of esophagus GERD (gastroesophageal reflux disease) 07/25/2013 Internal hemorrhoids without mention of complication Tinnitus PAST SURGICAL HISTORY Procedure Laterality Date CARPAL TUNNEL 03/09/2009 Rt wrist COLONOSCOPY FLX DX W/COLLJ SPEC WHEN PFRMD 09/06/2007 COLONOSCOPY FLX DX W/COLLJ SPEC WHEN PFRMD 10/05/2017 Colonoscopy EGD 10/20/2022 EGD TRANSORAL BIOPSY SINGLE/MULTIPLE 09/06/2007 ESOPHAGOGASTRODUODENOSCOPY TRANSORAL DIAGNOSTIC 10/05/2017 EGD LIG/TRNSXJ FLP TUBE ABDL/VAG APPR UNI/BI Tubal ligation NASAL ENDOSCOPY DIAG UNILBILAT 01/20/2015 SKIN BIOPSY HX SOCIAL HISTORY Social History Tobacco Use Smoking status: Never Smokeless tobacco: Never Vaping Use Vaping Use: Never used Substance Use Topics Alcohol use: No Drug use: No MEDICATIONS: tiZANidine (ZANAFLEX) 4 mg tablet Take 1 tablet by mouth every 8 hours as needed (muscle spasms). pantoprazole DR (PROTONIX) 40 mg tablet Take 1 tablet by mouth once daily. pseudoephedrine (SUDAFED) 30 mg tablet Take 1 tablet by mouth every 4 hours as needed. (Patient taking differently: Take 15 mg by mouth every 4 hours as needed.) sucralfate (CARAFATE) 100 mg/mL suspension Take 10 mL by mouth four times daily. estradiol (ESTRACE) 0.01 % (0.1 mg/gram) vaginal cream Use small pea sized amount at vaginal opening twice a week. calcium carbonate/vitamin d3(CALCIUM 500 WITH VITAMIN D 500 MG-125 UNIT TAB) Take one(1) tablet twice daily. benzonatate (TESSALON PERLES) 100 mg capsule Take 1 capsule by mouth three times a day as needed for cough. (Patient not taking: Reported on 04/10/2023) ALLERGIES: ALLERGIES Allergen Reactions Adhesive Tape-Silic* Rash Per patient developed extensive rash from adhesive monitor sticker after endoscopy Poison Akanksha PHYSICAL EXAM: BP 125/76 (BP Site: Right Arm, BP Position: Sitting, BP Cuff Size: Regular Adult) Pulse 64 LMP 09/17/2008 SpO2 96% Gen- no distress Ext-large bilateral varicose veins, edema bilaterally left greater than right Diagnostic tests reviewed for today's visit: Most recent labs Most recent imaging Venous Reflux Testing RIGHT SIDE - DEEP VEINS Negative for acute deep vein thrombosis in vessels visualized. RIGHT SIDE - SUPERFICIAL VEINS Positive for valvular incompetency in the great saphenous vein. Reflux noted at the knee. Varicosities arise at the level of the knee/proximal calf and course along the proximal to distal kohler. Negative for valvular incompetency in the small saphenous vein. LEFT SIDE - DEEP VEINS Negative for acute deep vein thrombosis in vessels visualized. Positive for valvular incompetency in the common femoral vein and femoral vein. LEFT SIDE - SUPERFICIAL VEINS Positive for valvular incompetency in the great saphenous vein. Varicosity at mid thigh courses along the medial thigh to the knee and throughout the calf. Positive for valvular incompetency in the small saphenous vein. Reflux at mid calf only. --Acute superficial thrombophlebitis in the varicosity off the great saphenous vein at the proximal calf IMPRESSION: Ms. Astudillo is a 67 year old female with symptomatic varicose veins. . PLAN and RECOMMENDATIONS: CEAP CLASSIFICATION OF VENOUS DISEASE: CLINICAL C2: Varicose veins C3: Edema S: Symptomatic, including ache, pain, tightness, skin irritation, heaviness, muscle cramps and other complaints attribultable to venous dysfunction ETIOLOGY Ep: Primary ANATOMIC As: Superficial veins PATHOPYSIOLOGIC Pr: Reflux INDICATION(S) FOR SURGERY: Left great saphenous vein reflux, Grade III-IV, Left painful varicose vein disease, and Left secondary varicose vein thrombus disease, painful and Right painful varicose vein disease Recommend Left GSV EVLT with post procedure stab phlebectomy and right leg stab phlebectomy. SIGNATURE: Lexy Kovacs DO PATIENT NAME: Lucas (more content not included)... Normal [facility] CNTHERAPYon 05-04-2023 CNTHERAPY OT/PT/Speech Visit ( [facility]) LUCAS ASTUDILLO ([id number]) 1955 F Date Time Provider Department 05/04/23 3:45 PM REJI MORGAN PTWS Date Time Provider Department [place] 05/04/2023 3:45 PM [id number], COLIN PTWS Cristin Shaw Reason for Visit: PT Eval [747] PT Discharge [752] Primary Visit Diagnosis:Acute shoulder pain, unspecified laterality [M25.519] Allergies As of Date: 05/04/2023 Noted Allergy Reaction ADHESIVE TAPE-SILICONES 10/28/2022 2 - Rash Comments: Per patient developed extensive rash from adhesive monitor sticker after endoscopy POISON AKANKSHA 07/28/2005 Date Reviewed: 04/10/2023 Reviewed by: Celia Rider MA - Fully Assessed Prescriptions as of 11/24/2023 - sucralfate (CARAFATE) 1 gram tablet Take 1 tablet by mouth before meals and at bedtime. - tiZANidine (ZANAFLEX) 4 mg tablet Take 1 tablet by mouth every 8 hours as needed (muscle spasms). - pantoprazole DR (PROTONIX) 40 mg tablet Take 1 tablet by mouth once daily. - pseudoephedrine (SUDAFED) 30 mg tablet Take 1 tablet by mouth every 4 hours as needed. - estradiol (ESTRACE) 0.01 % (0.1 mg/gram) vaginal cream Use small pea sized amount at vaginal opening twice a week. - calcium carbonate/vitamin d3(CALCIUM 500 WITH VITAMIN D 500 MG-125 UNIT TAB) Take one(1) tablet twice daily. 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 (PT/OT/Speech/Resp) ID: [id number] 05/04/2023 3:16 PM Author: REJI MORGAN Signed by REJI MORGAN PT on 05/04/2023 at 3:16 PM Document text: Program_ID:[id number] Access Code: [email or web address] URL: [email or web address] Date: 05-04-2023 Prepared By: Reji Morgan Program Notes Exercises - Seated Levator Scapulae Stretch - 2 x daily - 5-7 x weekly - 2-3 sets - reps - Seated Cervical Sidebending Stretch - 2 x daily - 5-7 x weekly - 2-3 sets - reps - Doorway Pec Stretch at 60 Degrees Abduction with Arm Straight - 2 x daily - 5-7 x weekly - 2-3 sets - reps - Latissimus Dorsi Stretch at Wall - 2 x daily - 5-7 x weekly - 2-3 sets - reps Therapy (PT/OT/Speech/Resp) ID: [id number] 05/04/2023 3:13 PM Author: REJI MORGAN Signed by REJI MORGAN PT on 05/04/2023 at 3:13 PM Document text: Program_ID:[id number] Access Code: [email or web address] URL: [email or web address] Date: 05-04-2023 Prepared By: Reji Morgan Program Notes Exercises - Shoulder Flexion Wall Slide with Towel - 2 x daily - 5-7 x weekly - 2 sets - 10-20 reps - Scaption Wall Slide with Towel - 2 x daily - 5-7 x weekly - 2 sets - 10-20 reps - Seated Shoulder Scaption AAROM with Lala at Side - 2 x daily - 7 x weekly - 2 sets - 15-20 reps - Seated Shoulder Abduction AAROM with Lala Behind - 2 x daily - 7 x weekly - 2 sets - 15-20 reps - Standing Shoulder Row with Anchored Resistance - 2 x daily - 5-7 x weekly - 2-3 sets - 10 reps - Shoulder extension with resistance - Neutral - 2 x daily - 5-7 x weekly - 2-3 sets - 10 reps - Single Arm Scaption with Dumbbell - 2 x daily - 5-7 x weekly - 2 sets - 10 reps - Shoulder External Rotation with Anchored Resistance - 2 x daily - 5-7 x weekly - 2 sets - 10 reps - Shoulder Internal Rotation with Resistance - 2 x daily - 5-7 x weekly - 2 sets - 10 reps Normal [facility] THERAPY NTon 05-04-2023 THERAPY NT HNO ID: [id number] Author: REJI MORGAN, PT Service: ? Author Type: Physical Therapist Type: Therapy (PT/OT/Speech/Resp) Filed: 05/04/2023 15:16 Note Text: Program_ID:[id number] Access Code: [email or web address] URL: [email or web address] Date: 05-04-2023 Prepared By: Reji Morgan Program Notes Exercises - Seated Levator Scapulae Stretch - 2 x daily - 5-7 x weekly - 2-3 sets - reps - Seated Cervical Sidebending Stretch - 2 x daily - 5-7 x weekly - 2-3 sets - reps - Doorway Pec Stretch at 60 Degrees Abduction with Arm Straight - 2 x daily - 5-7 x weekly - 2-3 sets - reps - Latissimus Dorsi Stretch at Wall - 2 x daily - 5-7 x weekly - 2-3 sets - reps Normal [facility] THERAPY NT HNO ID: [id number] Author: REJI MORGAN, PT Service: ? Author Type: Physical Therapist Type: Therapy (PT/OT/Speech/Resp) Filed: 05/04/2023 15:13 Note Text: Program_ID:[id number] Access Code: [email or web address] URL: [email or web address] Date: 05-04-2023 Prepared By: Reji Morgan Program Notes Exercises - Shoulder Flexion Wall Slide with Towel - 2 x daily - 5-7 x weekly - 2 sets - 10-20 reps - Scaption Wall Slide with Towel - 2 x daily - 5-7 x weekly - 2 sets - 10-20 reps - Seated Shoulder Scaption AAROM with Lala at Side - 2 x daily - 7 x weekly - 2 sets - 15-20 reps - Seated Shoulder Abduction AAROM with Lala Behind - 2 x daily - 7 x weekly - 2 sets - 15-20 reps - Standing Shoulder Row with Anchored Resistance - 2 x daily - 5-7 x weekly - 2-3 sets - 10 reps - Shoulder extension with resistance - Neutral - 2 x daily - 5-7 x weekly - 2-3 sets - 10 reps - Single Arm Scaption with Dumbbell - 2 x daily - 5-7 x weekly - 2 sets - 10 reps - Shoulder External Rotation with Anchored Resistance - 2 x daily - 5-7 x weekly - 2 sets - 10 reps - Shoulder Internal Rotation with Resistance - 2 x daily - 5-7 x weekly - 2 sets - 10 reps Normal [facility] CNOVon 04-21-2023 CNOV Office Visit (FAMPWS ) LUCAS ASTUDILLO ([id number]) 1955 F Date Time Provider Department 04/21/23 3:00 PM [facility] During your visit today, we recorded the following information about you: Pulse Respiration Blood pressure Weight 66/minute 16/minute 130/82 88.5 kg Mavis Hughes PA-C 04/25/2023 2:21 PM Signed 67 year old female with c/o pain in right shoulder. Got new wood burner, has been cutting and staking wood. Using ibuprofen 200mg 1 tab. Trouble sleeping, pain with using the arm. HISTORIES FAMILY HISTORY Problem Relation Age of Onset Cancer Mother ovarian, had negative genetic testing Coronary Artery Disease Father after 55 Hypertension Father Diabetes Father other (hysterecomy) Sister cervical cancer cells other (Precancerous cervix cells) Sister cancerous cells in uterus per Sharon Ellis, JAIRON other (hysterectomy) Sister half-sister; unknown etiology Diabetes Maternal Grandmother Cancer Paternal Grandmother possibly ovarian or cervical other (abnormal pap) Daughter other (Precancerous cervix cells) Other Niece (hysterectomy) PAST MEDICAL HISTORY Diagnosis Date Acute gastritis without mention of hemorrhage Allergic rhinitis due to other allergen Arthritis Cancer (HCC) Deviated septum Dyskinesia of esophagus GERD (gastroesophageal reflux disease) 07/25/2013 Internal hemorrhoids without mention of complication Tinnitus PAST SURGICAL HISTORY Procedure Laterality Date CARPAL TUNNEL 03/09/2009 Rt wrist COLONOSCOPY FLX DX W/COLLJ SPEC WHEN PFRMD 09/06/2007 COLONOSCOPY FLX DX W/COLLJ SPEC WHEN PFRMD 10/05/2017 Colonoscopy EGD 10/20/2022 EGD TRANSORAL BIOPSY SINGLE/MULTIPLE 09/06/2007 ESOPHAGOGASTRODUODENOSCOPY TRANSORAL DIAGNOSTIC 10/05/2017 EGD LIG/TRNSXJ FLP TUBE ABDL/VAG APPR UNI/BI Tubal ligation NASAL ENDOSCOPY DIAG UNILBILAT 01/20/2015 SKIN BIOPSY HX Social History Tobacco Use Smoking status: Never Smokeless tobacco: Never Vaping Use Vaping Use: Never used Substance Use Topics Alcohol use: No Drug use: No ACTIVE PROBLEM LIST Mixed Hyperlipidemia RHINITIS ALLERGIC, DUE TO POLLEN Hx of Acute Gastritis Dyskinesia of Esophagus Family History of Ovarian Cancer Encounter for Long-Term (Current) Use of Medications Screening for Colorectal Cancer Gastroesophageal Reflux Disease Lichen Sclerosus Et Atrophicus of The Vulva Chronic Kidney Disease, Stage 3a (Hcc) Arthritis of Right Sacroiliac Joint Plantar Fasciitis Flat Feet, Bilateral Current Outpatient Medications Medication Sig Dispense Refill benzonatate (TESSALON PERLES) 100 mg capsule Take 1 capsule by mouth three times a day as needed for cough. (Patient not taking: Reported on 04/10/2023) [address] (PROTONIX) 40 mg tablet Take 1 tablet by mouth once daily. 90 tablet 3 pseudoephedrine (SUDAFED) 30 mg tablet Take 1 tablet by mouth every 4 hours as needed. (Patient taking differently: Take 15 mg by mouth every 4 hours as needed.) 30 tablet 0 sucralfate (CARAFATE) 100 mg/mL suspension Take 10 mL by mouth four times daily. 414 mL 1 estradiol (ESTRACE) 0.01 % (0.1 mg/gram) vaginal cream Use small pea sized amount at vaginal opening twice a week. 42.5 g 5 calcium carbonate/vitamin d3(CALCIUM 500 WITH VITAMIN D 500 MG-125 UNIT TAB) Take one(1) tablet twice daily. 0 No current facility-administered medications for this visit. RSV Vaccine(1 - 1-dose 60+ series) Never done Advance Directive Discussion due on 03/30/2023 Depression Assessment due on 03/30/2023 EXAM: BP 130/82 Pulse 66 Resp 16 Wt 88.5 kg (195 lb) LMP 09/17/2008 SpO2 99% BMI 31.47 kg/m? Pleasant well-appearing adult woman in no acute distress. Alert and oriented all spheres. Normal affect and cognition. Speech normal. No deficits to learning or comprehension. Skin warm, dry, pink to lips and nailbeds. Normal turgor. Respirations regular and unlabored. Pain in right arm with trying to reach overhead, negative Park's, negative Martinez, negative lift off. Tender trigger points anterior posterior shoulder. Extrem: no clubbing or cyanosis. Edema: None. Extremities are warm and pink with prompt capillary refill. OMT with permission: Myofascial release to regular brachiocostialis, trapezius, pterygoid complex, subscapularis with moderate improvement in range of motion and significant pain reduction. ASSESSMENT/PLAN: 1. Cervicalgia - ICD9: 723.1, ICD10: M54.2 (primary diagnosis) 2. Repetitive strain injury of cervical spine, initial encounter - ICD9: 847.0, ICD10: S16.1XXA, X50.3XXA 3. Overuse syndrome of shoulder, right, subsequent encounter - ICD9: V58.89, 840.9, ICD10: S46.911D, X50.3XXD Encourage patient to do some gentle stretching exercises, handouts were provided from [facility] - PREDNISONE 20 MG TABLET - TIZANID (more content not included)... Normal [facility] XR Chest PA and Lateralon IMPRESSION: No acute radiographic abnormality. Pattern Clerk: TARAN Transcribe Date/Time: Mar 31 2023 12:59P Dictated by : JESUSITA RODRIGUEZ MD This examination was interpreted and the report reviewed and electronically signed by: JESUSITA RODRIGUEZ MD on Mar 31 2023 12:59PM [facility] DIVISION OF RADIOLOGY * * *Final Report* * * DATE OF EXAM: Mar 31 2023 12:54PM WOX 5291 - XR CHEST 2V FRONTAL/LAT / PROCEDURE REASON: multiple diagnoses * * * * Physician Interpretation * * * * EXAMINATION: CHEST RADIOGRAPH (2 VIEW FRONTAL & LATERAL) CLINICAL HISTORY: URI, acute Acute cough MQ: XC2_6 EXAM DATE/TIME: 03/31/2023 12:54 PM COMPARISON: Chest x-ray on 02/17/2022 RESULT: Lines, tubes, and devices: None. Lungs and pleura: No consolidation. No lung mass. No pleural effusion. No pneumothorax. Cardiomediastinal silhouette: Stable cardiac silhouette, with tortuosity of the thoracic aorta. Bones and soft tissues: There are degenerative changes in the spine. DIVISION OF RADIOLOGY Provider, Alison [facility] - 03/31/2023 * * *Final Report* * * DATE OF EXAM: Mar 31 2023 12:54PM WOX 5291 - XR CHEST 2V FRONTAL/LAT / PROCEDURE REASON: multiple diagnoses * * * * Physician Interpretation * * * * EXAMINATION: CHEST RADIOGRAPH (2 VIEW FRONTAL & LATERAL) CLINICAL HISTORY: URI, acute Acute cough MQ: XC2_6 EXAM DATE/TIME: 03/31/2023 12:54 PM COMPARISON: Chest x-ray on 02/17/2022 RESULT: Lines, tubes, and devices: None. Lungs and pleura: No consolidation. No lung mass. No pleural effusion. No pneumothorax. Cardiomediastinal silhouette: Stable cardiac silhouette, with tortuosity of the thoracic aorta. Bones and soft tissues: There are degenerative changes in the spine. IMPRESSION IMPRESSION: No acute radiographic abnormality. Pattern Clerk: PSCB Transcribe Date/Time: Mar 31 2023 12:59P Dictated by : JESUSITA RODRIGUEZ MD This examination was interpreted and the report reviewed and electronically signed by: JESUSITA RODRIGUEZ MD on Mar 31 2023 12:59PM EST [facility] Radiology Study observation (narrative) [facility] XR Chest PA and LateralOrder ed By: Ccf Provider on 03-31-2023 [facility] ELLIOT SCREENING W TOMOon 01-05 [facility] XR Foot - bilateral AP and L ateral and obliqueon 12-18-2022 IMPRESSION: No acute osseous abnormality Pattern Clerk: PSCB Transcribe Date/Time: Dec 18 2022 7:42A Dictated by : ESTRELLA PINEDA MD This examination was interpreted and the report reviewed and electronically signed by: ESTRELLA PINEDA MD on Dec 18 2022 7:47AM EST DIVISION OF RADIOLOGY * * *Final Report* * * DATE OF EXAM: Dec 16 2022 9:57AM WOX 5555 - XR FOOT 3V AP/LAT/OBL RONNI / PROCEDURE REASON: Pain * * * * Physician Interpretation * * * * EXAMINATION: XR FOOT 3V AP/LAT/OBL RONNI CLINICAL HISTORY: Bilateral foot pain Technique: XR FOOT 3V AP/LAT/OBL RONNI -- BILATERAL with 3 views on 5 images Comparison: None RESULT: No acute fracture or dislocation. Mild bilateral talonavicular joint space narrowing. Left plantar calcaneal spur. DIVISION OF RADIOLOGY Provider, [facility] - 12/18/2022 * * *Final Report* * * DATE OF EXAM: Dec 16 2022 9:57AM WOX 5555 - XR FOOT 3V AP/LAT/OBL RONNI / PROCEDURE REASON: Pain * * * * Physician Interpretation * * * * EXAMINATION: XR FOOT 3V AP/LAT/OBL RONNI CLINICAL HISTORY: Bilateral foot pain Technique: XR FOOT 3V AP/LAT/OBL RONNI -- BILATERAL with 3 views on 5 images Comparison: None RESULT: No acute fracture or dislocation. Mild bilateral talonavicular joint space narrowing. Left plantar calcaneal spur. IMPRESSION IMPRESSION: No acute osseous abnormality Pattern Clerk: TARAN Transcribe Date/Time: Dec 18 2022 7:42A Dictated by : ESTRELLA PINEDA MD This examination was interpreted and the report reviewed and electronically signed by: ESTRELLA PINEDA MD on Dec 18 2022 7:47AM EST [facility] XR Foot - bilateral AP and L ateral and obliqueOrdered By: Ccf Provider on 12-18-2022 [facility] XR Foot - bilateral AP and L ateral and obliqueon 12-16-2022 Radiology Study observation (narrative) [facility] DXA-AXIAL SKELETONon 023 LOWEST T-SCORE -2.0 [facility] US SCREENING FOR AAAon 12-03 [facility] XR Lumbar spine 3 Viewson IMPRESSION: DEGENERATIVE CHANGE AND ALIGNMENT ABNORMALITIES DESCRIBED. Pattern Clerk: PSC Transcribe Date/Time: Nov 17 2022 2:21P Dictated by : JEN COLINDRES MD This examination was interpreted and the report reviewed and electronically signed by: JEN COILNDRES MD on Nov 17 2022 2:23PM [facility] DIVISION OF RADIOLOGY * * *Final Report* * * DATE OF EXAM: Nov 14 2022 11:42AM WOX 5228 - XR LUMBAR 3V AP/LAT/L5-S1 / PROCEDURE REASON: multiple diagnoses * * * * Physician Interpretation * * * * Examination: XR LUMBAR 3V AP/LAT/L5-S1 History: Arthritis of right sacroiliac joint Lumbosacral pain Technique: XR LUMBAR 3V AP/LAT/L5-S1 Comparison: None RESULT: 5 nonrib-bearing lumbar type vertebrae. For numbering purposes, L4-5 is at the level of the iliac crest. Mild lower lumbar levoscoliosis. Mild degenerative change and spondylosis involving the posterior elements from L3 through S1. Grade 1 spondylolisthesis of L5 on S1. No fracture or focal bony abnormality DIVISION OF RADIOLOGY Provider, Alison Grier - 11/17/2022 * * *Final Report* * * DATE OF EXAM: Nov 14 2022 11:42AM WOX 5228 - XR LUMBAR 3V AP/LAT/L5-S1 / PROCEDURE REASON: multiple diagnoses * * * * Physician Interpretation * * * * Examination: XR LUMBAR 3V AP/LAT/L5-S1 History: Arthritis of right sacroiliac joint Lumbosacral pain Technique: XR LUMBAR 3V AP/LAT/L5-S1 Comparison: None RESULT: 5 nonrib-bearing lumbar type vertebrae. For numbering purposes, L4-5 is at the level of the iliac crest. Mild lower lumbar levoscoliosis. Mild degenerative change and spondylosis involving the posterior elements from L3 through S1. Grade 1 spondylolisthesis of L5 on S1. No fracture or focal bony abnormality IMPRESSION IMPRESSION: DEGENERATIVE CHANGE AND ALIGNMENT ABNORMALITIES DESCRIBED. Pattern Clerk: PSCB Transcribe Date/Time: Nov 17 2022 2:21P Dictated by : JEN COLINDRES MD This examination was interpreted and the report reviewed and electronically signed by: JEN COLINDRES MD on Nov 17 2022 2:23PM EST [facility] XR Lumbar spine 3 ViewsOrder ed By: Ccf Provider on 11-17-2022 [facility] XR Lumbar spine 3 Viewson Radiology Study observation (narrative) [facility] STREP A MOLECULAR (POC)on Procedural Control [facility] Strep A (POCT) Negative Negative [facility] SURGICAL PATHOLOGYon 023 Case Report Surgical Pathology R eport Case: [id number] Authorizing Provider: Eriberto Disla MD Collected: 10/20/2022 09:07 AM Ordering Location: Ambulatory Surgery Received: 10/20/2022 01:38 PM Pathologist: Chanelle Felix MD Specimens: A) - DUODENUM BIOPSY B) - ANTRUM (STOMACH) BIOPSY, Antral for H/H C) - ESOPHAGUS BIOPSY, distal esophagus bx D) - ESOPHAGUS MID BIOPSY [facility] FINAL DIAGNOSIS A. Duodenum, biopsy: -Duodenal mucosa with intact villous architecture and no significant histologic abnormality -Negative for intraepithelial lymphocytosis B. Stomach, antrum, biopsy: -Portions of oxyntic type gastric mucosa with features suggestive of PPI use -Negative for Helicobacter pylori organisms on routine staining -Negative for intestinal metaplasia or dysplasia C. Esophagus, distal, biopsy: -Portions of squamous epithelium with mild reactive changes -Negative for intraepithelial eosinophils D. Esophagus, mid, biopsy: -Portions of squamous epithelium with no significant histologic abnormality -Negative for intraepithelial eosinophils [facility] Gross Description A. DUODENUM BIOPSY Received in formalin are two pieces of harris, soft tissue aggregating to 1.0 x 0.2 x 0.2 cm. Totally submitted in one cassette. B. ANTRUM (STOMACH) BIOPSY Received in formalin is one piece of harris, soft tissue measuring 0.8 x 0.2 x 0.2 cm. Totally submitted in one cassette. C. ESOPHAGUS BIOPSY Received in formalin are two pieces of harris-white, soft tissue aggregating to 1.0 x 0.3 x 0.1 cm. Totally submitted in one cassette. D. ESOPHAGUS MID BIOPSY Received in formalin is one piece of harris-white, soft tissue measuring 0.5 x 0.3 x 0.1 cm. Totally submitted in one cassette. Gross examination performed at [facility], [address] [place] [id number] JT 10/21/2022 2:19 AM [facility] Performing Lab Diagnostic interpret ation performed at [facility], [address] [place], [place] [id number] CLIA# [id number] [employer] Classer: Oracio Hilario M.D. [facility] XR Hand - right PA and Later al and Obliqueon 10-21-2022 IMPRESSION: No radiographic evidence of acute osseous abnormality Pattern Clerk: [facility] Transcribe Date/Time: Oct 21 2022 1:32P Dictated by : YOUNG CHAO MD This examination was interpreted and the report reviewed and electronically signed by: YOUNG CHAO MD on Oct 21 2022 1:34PM [facility] DIVISION OF RADIOLOGY * * *Final Report* * * DATE OF EXAM: Oct 21 2022 1:14PM WOX 5346 - XR HAND 3V PA/LAT/OBL RT / PROCEDURE REASON: Hand pain, right * * * * Physician Interpretation * * * * TITLE: XR HAND 3V PA/LAT/OBL RT CLINICAL INDICATION: Pain TECHNIQUE: 3 view radiographic study of the right hand COMPARISON: None FINDINGS: No acute fracture or dislocation identified. No destructive osseous lesion. Joint spaces preserved. No radiopaque foreign body. DIVISION OF RADIOLOGY Provider, [facility] - 10/21/2022 * * *Final Report* * * DATE OF EXAM: Oct 21 2022 1:14PM WOX 5346 - XR HAND 3V PA/LAT/OBL RT / PROCEDURE REASON: Hand pain, right * * * * Physician Interpretation * * * * TITLE: XR HAND 3V PA/LAT/OBL RT CLINICAL INDICATION: Pain TECHNIQUE: 3 view radiographic study of the right hand COMPARISON: None FINDINGS: No acute fracture or dislocation identified. No destructive osseous lesion. Joint spaces preserved. No radiopaque foreign body. IMPRESSION IMPRESSION: No radiographic evidence of acute osseous abnormality Pattern Clerk: [facility] Transcribe Date/Time: Oct 21 2022 1:32P Dictated by : YOUNG CHAO MD This examination was interpreted and the report reviewed and electronically signed by: YOUNG CHAO MD on Oct 21 2022 1:34PM EST [facility] Radiology Study observation (narrative) [facility] XR Hand - right PA and Later al and ObliqueOrdered By: Ccf Provider on 10-21-2022 [facility] EGD DIAGNOSTICon 10-20-2022 [facility] XR CHEST 2V FRONTAL/LATon [facility] XR Chest PA and Lateralon IMPRESSION: No acute radiographic abnormality. Pattern Clerk: [facility] Transcribe Date/Time: Feb 17 2022 10:30A Dictated by : JEN COLINDRES MD This examination was interpreted and the report reviewed and electronically signed by: JEN COLINDRES MD on Feb 17 2022 10:31AM EST DIVISION OF RADIOLOGY * * *Final Report* * * DATE OF EXAM: Feb 17 2022 9:57AM WOX 5291 - XR CHEST 2V FRONTAL/LAT / PROCEDURE REASON: multiple diagnoses * * * * Physician Interpretation * * * * EXAMINATION: CHEST RADIOGRAPH (2 VIEW FRONTAL & LATERAL) CLINICAL HISTORY: Sinobronchitis MQ: XC2_6 EXAM DATE/TIME: 02/17/2022 9:57 AM COMPARISON: 10/06/2018 RESULT: Lines, tubes, and devices: None. Lungs and pleura: No consolidation. No lung mass. No pleural effusion. No pneumothorax. Cardiomediastinal silhouette: Normal cardiomediastinal silhouette. Bones and soft tissues: Unremarkable. DIVISION OF RADIOLOGY Provider, [facility] - 02/17/2022 * * *Final Report* * * DATE OF EXAM: Feb 17 2022 9:57AM WOX 5291 - XR CHEST 2V FRONTAL/LAT / PROCEDURE REASON: multiple diagnoses * * * * Physician Interpretation * * * * EXAMINATION: CHEST RADIOGRAPH (2 VIEW FRONTAL & LATERAL) CLINICAL HISTORY: Sinobronchitis MQ: XC2_6 EXAM DATE/TIME: 02/17/2022 9:57 AM COMPARISON: 10/06/2018 RESULT: Lines, tubes, and devices: None. Lungs and pleura: No consolidation. No lung mass. No pleural effusion. No pneumothorax. Cardiomediastinal silhouette: Normal cardiomediastinal silhouette. Bones and soft tissues: Unremarkable. IMPRESSION IMPRESSION: No acute radiographic abnormality. Pattern Clerk: PSCB Transcribe Date/Time: Feb 17 2022 10:30A Dictated by : JEN COLINDRES MD This examination was interpreted and the report reviewed and electronically signed by: JEN COLINDRES MD on Feb 17 2022 10:31AM [facility] Radiology Study observation (narrative) [facility] XR Chest PA and LateralOrder ed By: Ccf Provider on 02-17-2022 [facility] STREP A MOLECULAR (POC)on Procedural Control Valid [facility] Strep A (POCT) Negative Negative [facility] Vital Signs Date Time Vital Sign Value Performing Clinician Facility 03-14-2024 11:14-0500 Body mass index (BMI) [Ratio] 31.08 kg/m2 Eugenio Peralta MD Work Phone: [facility] 03-14-2024 11:14-0500 Body weight 87.4 kg Eugenio Peralta MD Work Phone: [facility] 03-14-2024 11:14-0500 Diastolic blood pressure 72 mm[Hg] Eugenio Peralta MD Work Phone: [facility] 03-14-2024 11:14-0500 Heart rate 64 /min Eugenio Peralta MD Work Phone: [facility] 03-14-2024 11:14-0500 SaO2% (BldA) [Mass fraction] 97 % Eugenio Peralta MD Work Phone: [facility] 03-14-2024 11:14-0500 Systolic blood pressure 122 mm[Hg] Eugenio Peralta MD Work Phone: [facility] 02-22-2024 11:45-0500 Diastolic blood pressure 88 mm[Hg] Lola Farris SCHOOL OPERATIONS MANAGER.STRETCH MACHINE OPERATOR Work Phone: [facility] Comment on above: BALA BP 02-22-2024 11:45-0500 Heart rate 58 /min Lola Farris SCHOOL OPERATIONS MANAGER.STRETCH MACHINE OPERATOR Work Phone: [facility] 02-22-2024 11:45-0500 Systolic blood pressure 158 mm[Hg] Lola Farris SCHOOL OPERATIONS MANAGER.STRETCH MACHINE OPERATOR Work Phone: [facility] Comment on above: BALA BP 02-22-2024 11:36-0500 Respiratory rate 16 /min Lola Farris SCHOOL OPERATIONS MANAGER.STRETCH MACHINE OPERATOR Work Phone: [facility] 02-22-2024 11:36-0500 SaO2% (BldA) [Mass fraction] 98 % Lola Farris SCHOOL OPERATIONS MANAGER.STRETCH MACHINE OPERATOR Work Phone: [facility] 01-07-2024 10:49-0400 Body height 167.7 cm Tiffani Alfreda SCHOOL OPERATIONS MANAGER.STRETCH MACHINE OPERATOR Work Phone: [facility] 01-07-2024 10:49-0400 Body mass index (BMI) [Ratio] 30.71 kg/m2 Tiffani Woodsfield SCHOOL OPERATIONS MANAGER.STRETCH MACHINE OPERATOR Work Phone: [facility] 01-07-2024 10:49-0400 Body weight 86.36 kg Tiffani Woodsfield SCHOOL OPERATIONS MANAGER.STRETCH MACHINE OPERATOR Work Phone: [facility] 01-07-2024 10:49-0400 Diastolic blood pressure 70 mm[Hg] Tiffani Woodsfield SCHOOL OPERATIONS MANAGER.STRETCH MACHINE OPERATOR Work Phone: [facility] 01-07-2024 10:49-0400 Respiratory rate 16 /min Tiffani Alfreda SCHOOL OPERATIONS MANAGER.STRETCH MACHINE OPERATOR Work Phone: [facility] 01-07-2024 10:49-0400 Systolic blood pressure 122 mm[Hg] Tiffani Alfreda SCHOOL OPERATIONS MANAGER.STRETCH MACHINE OPERATOR Work Phone: [facility] 12-24-2023 14:19-0400 Diastolic blood pressure 80 mm[Hg] Natalia Suppan SCHOOL OPERATIONS MANAGER.STRETCH MACHINE OPERATOR Work Phone: [facility] 12-24-2023 14:19-0400 Systolic blood pressure 120 mm[Hg] Natalia Suppan SCHOOL OPERATIONS MANAGER.STRETCH MACHINE OPERATOR Work Phone: [facility] 12-24-2023 14:07-0400 Body mass index (BMI) [Ratio] 31.63 kg/m2 Natalia Suppan SCHOOL OPERATIONS MANAGER.STRETCH MACHINE OPERATOR Work Phone: [facility] 12-24-2023 14:07-0400 Body weight 88.9 kg Natalia Suppan SCHOOL OPERATIONS MANAGER.STRETCH MACHINE OPERATOR Work Phone: [facility] 12-24-2023 14:07-0400 Heart rate 68 /min Natalia Suppan SCHOOL OPERATIONS MANAGER.STRETCH MACHINE OPERATOR Work Phone: [facility] 12-24-2023 14:07-0400 Respiratory rate 16 /min Natalia Suppan SCHOOL OPERATIONS MANAGER.STRETCH MACHINE OPERATOR Work Phone: [facility] 12-24-2023 14:07-0400 SaO2% (BldA) [Mass fraction] 98 % Natalia Troyshay MIKESTRETCH MACHINE OPERATOR Work Phone: [facility] 12-03-2023 09:27-0400 Body mass index (BMI) [Ratio] 31.15 kg/m2 Mayra Lan PA-C Work Phone: [facility] 12-03-2023 09:27-0400 Body temperature 97.7 [degF] Mayra Lan PA-C Work Phone: [facility] 12-03-2023 09:27-0400 Body weight 87.54 kg Mayra Lan PA-C Work Phone: [facility] 12-03-2023 09:27-0400 Diastolic blood pressure 86 mm[Hg] Mayra Lan PA-C Work Phone: [facility] 12-03-2023 09:27-0400 Heart rate 64 /min Mayra Lan PA-C Work Phone: [facility] 12-03-2023 09:27-0400 Respiratory rate 16 /min Mayra Lan PA-C Work Phone: [facility] 12-03-2023 09:27-0400 SaO2% (BldA) [Mass fraction] 97 % Mayra Lan PA-C Work Phone: [facility] 12-03-2023 09:27-0400 Systolic blood pressure 136 mm[Hg] Mayra Lan PA-C Work Phone: [facility] 10-26-2023 11:20-0400 Diastolic blood pressure 88 mm[Hg] Eugenio Peralta MD Work Phone: [facility] 10-26-2023 11:20-0400 Systolic blood pressure 136 mm[Hg] Eugenio Peralta MD Work Phone: [facility] 10-26-2023 10:38-0400 Body height 167.6 cm Eugenio Peralta MD Work Phone: [facility] 10-26-2023 10:38-0400 Body mass index (BMI) [Ratio] 31.47 kg/m2 Eugenio Peralta MD Work Phone: [facility] 10-26-2023 10:38-0400 Body weight 88.45 kg Eugenio Peralta MD Work Phone: [facility] 10-26-2023 10:38-0400 Heart rate 63 /min Eugenio Peralta MD Work Phone: [facility] 10-26-2023 10:38-0400 SaO2% (BldA) [Mass fraction] 98 % Eugenio Peralta MD Work Phone: [facility] 08-01-2023 10:40-0400 Body mass index (BMI) [Ratio] 31.46 kg/m2 Enmanuel Wong MD Work Phone: [facility] 08-01-2023 10:40-0400 Body temperature 98.1 [degF] Enmanuel Wong MD Work Phone: [facility] 08-01-2023 10:40-0400 Body weight 88.4 kg Enmanuel Wong MD Work Phone: [facility] 08-01-2023 10:40-0400 Diastolic blood pressure 79 mm[Hg] Enmanuel Wong MD Work Phone: [facility] 08-01-2023 10:40-0400 Heart rate 62 /min Enmanuel Wong MD Work Phone: [facility] 08-01-2023 10:40-0400 Respiratory rate 18 /min Enmanuel Wong MD Work Phone: [facility] 08-01-2023 10:40-0400 SaO2% (BldA) [Mass fraction] 99 % Enmanuel Wong MD Work Phone: [facility] 08-01-2023 10:40-0400 Systolic blood pressure 162 mm[Hg] Enmanuel Wong MD Work Phone: [facility] 05-26-2023 14:16-0500 Diastolic blood pressure 76 mm[Hg] Leyx Kovacs DO Work Phone: [facility] 05-26-2023 14:16-0500 Heart rate 64 /min Lexy Kovacs DO Work Phone: [facility] 05-26-2023 14:16-0500 SaO2% (BldA) [Mass fraction] 96 % Lexy Kovacs DO Work Phone: [facility] 05-26-2023 14:16-0500 Systolic blood pressure 125 mm[Hg] Lexy Kovacs DO Work Phone: [facility] 02-17-2023 08:46-0500 Diastolic blood pressure 77 mm[Hg] Lexy Kovacs DO Work Phone: [facility] 02-17-2023 08:46-0500 Heart rate 61 /min Lexy Kovacs DO Work Phone: [facility] 02-17-2023 08:46-0500 SaO2% (BldA) [Mass fraction] 96 % Lexy Kovacs DO Work Phone: [facility] 02-17-2023 08:46-0500 Systolic blood pressure 128 mm[Hg] Lexy Kovacs DO Work Phone: [facility] 11-14-2022 10:03-0400 Body weight 87.54 kg NA Hughes PA-C Work Phone: [facility] 11-14-2022 10:03-0400 Diastolic blood pressure 70 mm[Hg] NA Hughes PA-C Work Phone: [facility] 11-14-2022 10:03-0400 Heart rate 67 /min NA Hughes PA-C Work Phone: [facility] 11-14-2022 10:03-0400 Respiratory rate 16 /min NA Hughes PA-C Work Phone: [facility] 11-14-2022 10:03-0400 SaO2% (BldA) [Mass fraction] 97 % NA Hughes PA-C Work Phone: [facility] 11-14-2022 10:03-0400 Systolic blood pressure 120 mm[Hg] PALMER Tuckeron PA-C Work Phone: [facility] 11-01-2022 10:08-0400 Body temperature 98.29 [degF] Johanne Tom SCHOOL OPERATIONS MANAGER.STRETCH MACHINE OPERATOR Work Phone: [facility] 11-01-2022 10:08-0400 Body weight 87.73 kg Johanne Tom SCHOOL OPERATIONS MANAGER.STRETCH MACHINE OPERATOR Work Phone: [facility] 11-01-2022 10:08-0400 Diastolic blood pressure 80 mm[Hg] Johanne Tom SCHOOL OPERATIONS MANAGER.STRETCH MACHINE OPERATOR Work Phone: [facility] 11-01-2022 10:08-0400 Heart rate 57 /min Johanne Tom SCHOOL OPERATIONS MANAGER.STRETCH MACHINE OPERATOR Work Phone: [facility] 11-01-2022 10:08-0400 Respiratory rate 21 /min Johanne Tom SCHOOL OPERATIONS MANAGER.STRETCH MACHINE OPERATOR Work Phone: [facility] 11-01-2022 10:08-0400 SaO2% (BldA) [Mass fraction] 98 % Johanne Fishmank SCHOOL OPERATIONS MANAGER.STRETCH MACHINE OPERATOR Work Phone: [facility] 11-01-2022 10:08-0400 Systolic blood pressure 132 mm[Hg] Johanne Tom SCHOOL OPERATIONS MANAGER.STRETCH MACHINE OPERATOR Work Phone: [facility] 10-28-2022 10:32-0400 Body temperature 97.9 [degF] Crystal [place] PA-C Work Phone: [facility] 10-28-2022 10:32-0400 Diastolic blood pressure 88 mm[Hg] Crystal Zeina PA-C Work Phone: [facility] 10-28-2022 10:32-0400 Heart rate 68 /min Crystal Zeina PA-C Work Phone: [facility] 10-28-2022 10:32-0400 SaO2% (BldA) [Mass fraction] 97 % Crystal [place] PA-C Work Phone: [facility] 10-28-2022 10:32-0400 Systolic blood pressure 122 mm[Hg] Crystal Zeina PA-C Work Phone: [facility] 10-20-2022 09:45-0400 Diastolic blood pressure 86 mm[Hg] Eriberto Disla MD Work Phone: [facility] 10-20-2022 09:45-0400 Heart rate 57 /min Eriberto Disla MD Work Phone: [facility] 10-20-2022 09:45-0400 Respiratory rate 16 /min Eriberto Disla MD Work Phone: [facility] 10-20-2022 09:45-0400 SaO2% (BldA) [Mass fraction] 96 % Eriberto Disla MD Work Phone: [facility] 10-20-2022 09:45-0400 Systolic blood pressure 158 mm[Hg] Eriberto Disla MD Work Phone: [facility] 10-20-2022 07:59-0400 Body temperature 97.81 [degF] Eriberto Disla MD Work Phone: [facility] 07-22-2022 13:16-0400 Body height 167.6 cm Crystal Zeina PA-C Work Phone: [facility] 07-22-2022 13:16-0400 Body temperature 96.21 [degF] Crystal [place] PA-C Work Phone: [facility] 07-22-2022 13:16-0400 Body weight 91.54 kg Crystal Zeina PA-C Work Phone: [facility] 07-22-2022 13:16-0400 Diastolic blood pressure 88 mm[Hg] Crystal [place] PA-C Work Phone: [facility] 07-22-2022 13:16-0400 Heart rate 82 /min Crystal [place] PA-C Work Phone: [facility] 07-22-2022 13:16-0400 SaO2% (BldA) [Mass fraction] 100 % Crystal Zeina PA-C Work Phone: [facility] 07-22-2022 13:16-0400 Systolic blood pressure 120 mm[Hg] Crystal Pastrana PA-C Work Phone: [facility] 02-17-2022 09:27-0500 Diastolic blood pressure 98 mm[Hg] Lola Leiagen SCHOOL OPERATIONS MANAGER.STRETCH MACHINE OPERATOR Work Phone: [facility] 02-17-2022 09:27-0500 Systolic blood pressure 150 mm[Hg] Lola Farris SCHOOL OPERATIONS MANAGER.STRETCH MACHINE OPERATOR Work Phone: [facility] 02-17-2022 08:56-0500 Body temperature 99.81 [degF] Lola Farris SCHOOL OPERATIONS MANAGER.STRETCH MACHINE OPERATOR Work Phone: [facility] 02-17-2022 08:56-0500 Body weight 89.63 kg Lola Farris SCHOOL OPERATIONS MANAGER.STRETCH MACHINE OPERATOR Work Phone: [facility] 02-17-2022 08:56-0500 Heart rate 77 /min Lola Farris SCHOOL OPERATIONS MANAGER.STRETCH MACHINE OPERATOR Work Phone: [facility] 02-17-2022 08:56-0500 Respiratory rate 16 /min Lola Farris SCHOOL OPERATIONS MANAGER.STRETCH MACHINE OPERATOR Work Phone: [facility] 02-17-2022 08:56-0500 SaO2% (BldA) [Mass fraction] 97 % Lola Farris SCHOOL OPERATIONS MANAGER.STRETCH MACHINE OPERATOR Work Phone: [facility] 02-13-2022 09:55-0500 Body temperature 98.49 [degF] Alberto Le SCHOOL OPERATIONS MANAGER.STRETCH MACHINE OPERATOR Work Phone: [facility] 02-13-2022 09:55-0500 Body weight 91.54 kg Alberto Le SCHOOL OPERATIONS MANAGER.STRETCH MACHINE OPERATOR Work Phone: [facility] 02-13-2022 09:55-0500 Diastolic blood pressure 92 mm[Hg] Alberto Le SCHOOL OPERATIONS MANAGER.STRETCH MACHINE OPERATOR Work Phone: [facility] 02-13-2022 09:55-0500 Heart rate 71 /min Alberto Le SCHOOL OPERATIONS MANAGER.STRETCH MACHINE OPERATOR Work Phone: [facility] 02-13-2022 09:55-0500 Respiratory rate 20 /min Alberto Le SCHOOL OPERATIONS MANAGER.STRETCH MACHINE OPERATOR Work Phone: [facility] 02-13-2022 09:55-0500 SaO2% (BldA) [Mass fraction] 95 % Alberto Rey SCHOOL OPERATIONS MANAGER.STRETCH MACHINE OPERATOR Work Phone: [facility] 02-13-2022 09:55-0500 Systolic blood pressure 142 mm[Hg] Alberto Le SCHOOL OPERATIONS MANAGER.STRETCH MACHINE OPERATOR Work Phone: [facility] 01-02-2022 14:29-0400 Body height 168.9 cm Tiffani Alfreda SCHOOL OPERATIONS MANAGER.STRETCH MACHINE OPERATOR Work Phone: [facility] 01-02-2022 14:29-0400 Body weight 90.72 kg Tiffani [place] SCHOOL OPERATIONS MANAGER.STRETCH MACHINE OPERATOR Work Phone: [facility] 01-02-2022 14:29-0400 Diastolic blood pressure 60 mm[Hg] Tiffani [place] SCHOOL OPERATIONS MANAGER.STRETCH MACHINE OPERATOR Work Phone: [facility] 01-02-2022 14:29-0400 Systolic blood pressure 120 mm[Hg] Tiffani Alfreda SCHOOL OPERATIONS MANAGER.STRETCH MACHINE OPERATOR Work Phone: [facility] 12-17-2021 16:03-0400 Diastolic blood pressure 79 mm[Hg] Mi Nurse Work Phone: [facility] 12-17-2021 16:03-0400 Heart rate 59 /min Mi Nurse Work Phone: [facility] 12-17-2021 16:03-0400 Systolic blood pressure 137 mm[Hg] Mi Nurse Work Phone: [facility] Encounters Encounter Date Encounter Type Care Provider Facility Start: 08-27-2024 End: 08-29-2024 Refill Eugenio Peralta MD Work Phone: [facility] Comment on above: Refill Request Start: 04-28-2024 End: 04-28-2024 ambulatory [facility] Facility:[facility] Start: 03-14-2024 End: 03-14-2024 ambulatory EUGENIO PERALTA Facility:[facility] Start: 03-14-2024 End: 03-14-2024 Patient encounter procedure Eugenio Peralta MD Work Phone: [facility] Comment on above: Primary hypertension (Primary Dx) Start: 02-22-2024 End: 02-22-2024 ambulatory EUGENIO Hanson FABIAN Facility:[facility] Start: 02-22-2024 End: 02-22-2024 Subsequent hospital visit by physician oLu [facility] Work Phone: Radiology Comment on above: Acute pain of right knee [M25.561] Start: 02-22-2024 End: 02-22-2024 Office outpatient visit 25 minutes Lola Farris APRN.CNP Work Phone: [facility] Comment on above: Primary hypertension (Primary Dx); Acute pain of right knee Start: 02-22-2024 End: 02-22-2024 ambulatory [facility] Facility:[facility] Start: 02-11-[address] [facility] Start: 02-11-2024 End: 02-11-[address] [facility] Facility:[facility] Start: 01-27-2024 End: 01-27-[address] [facility] Facility:[facility] Start: 01-08-2024 End: 01-11-2024 MC Get Medical Advice Tiffani Gant 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 Work Phone: OB/Gynecology Comment on above: Med order to [facility] Start: 01-07-2024 End: 01-07-2024 Patient encounter procedure Tiffani Gant 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 Work Phone: OB/Gynecology Comment on above: Encounter for gyneco logical examination (general) (routine) without abnormal findings (Primary Dx); Encounter for screening mammogram for breast cancer; Postmenopausal atrophic vaginitis; Screening for malignant neoplasm of cervix; Encounter for screening for human papillomavirus (HPV) Start: 01-07-2024 End: 01-07-2024 Patient encounter status Tiffani Gant 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 Work Phone: [facility] Start: 01-07-2024 End: 01-07-2024 ambulatory EUGENIO PERALTA Facility:[facility] Start: 01-07-2024 End: 01-07-2024 Subsequent hospital visit by physician Screen Mammo [facility] Comment on above: Encounter for screen ing mammogram for malignant neoplasm of breast [Z12.31] Start: 12-30-2023 End: 12-30-2023 ambulatory [facility] Nurse [facility] Work Phone: [facility] Start: 12-30-2023 End: 12-30-2023 Patient encounter procedure [facility] Start: 12-24-2023 End: 12-24-2023 Office outpatient visit 15 minutes Natalia Monge 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 Work Phone: [facility] Comment on above: Sinus congestion (Pr imary Dx); Elevated blood pressure reading without diagnosis of hypertension Start: 12-24-2023 End: 12-24-2023 ambulatory NATALIA MONGE Facility:[facility] Start: 12-22-2023 End: 12-22-2023 Telephone encounter Natalia Monge SCHOOL OPERATIONS MANAGER.STRETCH MACHINE OPERATOR Work Phone: [facility] Comment on above: Appointment; Patient Update Start: 12-14-2023 End: 12-14-2023 Refill M Ko Hughes PA-C Work Phone: [facility] Comment on above: Refill Request Start: 12-03-2023 End: 12-03-2023 ambulatory MAYRA LAN Facility:[facility] Start: 12-03-2023 End: 12-03-2023 Patient encounter procedure Mayra Lan PA-C Work Phone: [facility] Comment on above: Contact dermatitis, unspecified contact dermatitis type, unspecified trigger (Primary Dx) Start: 11-25-2023 End: 11-25-2023 ambulatory Eugenio Peralta MD Work Phone: [facility] Comment on above: RSV vaccination Start: 10-29-2023 End: 10-30-2023 Emergency department patient visit [facility] Cross Facility:[facility] Start: 10-26-2023 End: 10-26-2023 Patient encounter procedure Eugenio Peralta MD Work Phone: [facility] Comment on above: Mixed hyperlipidemia (Primary Dx); Chronic kidney disease, stage 3a (HCC); Screening for depression; Encounter for screening examination for other mental health and behavioral disorders Start: 10-26-2023 End: 10-26-2023 ambulatory EUGENIO Valentin FABIAN Facility:[facility] Start: 10-20-2023 End: 10-20-2023 ambulatory [facility] Facility:[facility] Start: 08-26-2023 ambulatory [place]ia [place]MON Work Phone: OB/Gynecology Comment on above: Mammogram Start: 08-01-2023 End: 08-01-2023 [facility] Start: 08-01-2023 End: 08-01-2023 Patient encounter procedure Enmanuel Wong MD Work Phone: [facility] Comment on above: Rib pain on left shanita e (Primary Dx) Start: 06-13-2023 ambulatory Eugenio Peralta MD Work Phone: [facility] Comment on above: Sucralfate Start: 05-26-2023 End: 05-26-2023 ambulatory LEXY KOVACS Facility:[facility] Start: 05-26-2023 End: 05-26-2023 Patient encounter procedure Lexy Kovacs DO Work Phone: Vascular Surgery Comment on above: Symptomatic varicose veins of both lower extremities (Primary Dx) Start: 05-04-2023 End: 05-04-2023 ambulatory EUGENIO PERALTA Facility:[facility] Start: 04-21-2023 End: 04-21-2023 ambulatory MEHNAZ HUGHES Facility:[facility] Start: 03-31-2023 End: 03-31-2023 Subsequent hospital visit by physician Lou [facility] Work Phone: Radiology Comment on above: URI, acute [J06.9] Start: 02-23-2023 ambulatory Harry Golias P T Work Phone: [facility] Comment on above: Orthotics Start: 02-17-2023 End: 02-17-2023 Patient encounter procedure Lexy Kovacs DO Work Phone: Vascular Surgery Comment on above: Symptomatic varicose veins of both lower extremities Start: 02-10-2023 End: 02-10-2023 ambulatory Reji Sylvia PT Work Phone: [facility] Comment on above: Arthritis of right s acroiliac joint (Primary Dx) Start: 02-04-2023 End: 02-04-2023 ambulatory Harry Golias PT Work Phone: [facility] Comment on above: Plantar fasciitis (P rimary Dx); Flat feet, bilateral Start: 01-27-2023 End: 01-27-2023 ambulatory Reji Sylvia PT Work Phone: [facility] Comment on above: Arthritis of right s acroiliac joint (Primary Dx) Start: 01-19-2023 End: 01-19-2023 ambulatory Harry Golias PT Work Phone: [facility] Comment on above: Plantar fasciitis; Flat feet, bilateral Start: 01-13-2023 End: 01-13-2023 ambulatory Reji Sylvia PT Work Phone: [facility] Comment on above: Arthritis of right s acroiliac joint (Primary Dx) Start: 01-10-2023 End: 01-10-2023 ambulatory Immunization [facility] Nurse [facility] Work Phone: [facility] Start: 01-06-2023 Documentation procedure Mammog deven Coordinator [facility] Start: 01-06-2023 Letter encounter Mammography Coordinator [facility] Department Start: 01-06-2023 Telephone encounter Eugenio Peralta MD Work Phone: [facility] Comment on above: Consult Start: 01-05-2023 End: 01-05-2023 Subsequent hospital visit by physician Screen Mammo [facility] Comment on above: Encounter for screen ing mammogram for malignant neoplasm of breast [Z12.31] Start: 12-18-2022 End: 12-18-2022 Patient encounter procedure Jt Duarte Work Phone: Podiatry Comment on above: Plantar fasciitis (P rimary Dx); Pes planus of both feet Start: 12-16-2022 End: 12-16-2022 ambulatory Reji Sylvia PT Work Phone: [facility] Comment on above: Arthritis of right s acroiliac joint (Primary Dx) Start: 12-16-2022 End: 12-16-2022 Subsequent hospital visit by physician Xr [facility] Work Phone: Radiology Comment on above: Pain [R52] Start: 12-12-2022 End: 12-12-2022 ambulatory Reji Sylvia PT Work Phone: [facility] Comment on above: Arthritis of right s acroiliac joint (Primary Dx) Start: 12-04-2022 End: 12-04-2022 ambulatory Reji Sylvia PT Work Phone: [facility] Comment on above: Arthritis of right s acroiliac joint (Primary Dx) Start: 12-03-2022 ambulatory Mavis Tucker on PA-C Work Phone: [facility] Comment on above: AAA Screening Start: 12-03-2022 End: 12-03-2022 Subsequent hospital visit by physician Bone Density [facility] Work Phone: Radiology Comment on above: Asymptomatic postmen opausal state [Z78.0] Start: 12-03-2022 End: 12-03-2022 Subsequent hospital visit by physician Us [facility] Work Phone: Radiology Comment on above: Pulsatile abdomen [R 19.8] Start: 11-26-2022 Orders Only Jt Khanra nolan Work Phone: Appointment Center Comment on above: Pain (Primary Dx) Start: 11-24-2022 ambulatory No Pcp SCHOOL OPERATIONS MANAGER Shani donahue [place] Start: 11-19-2022 Telephone encounter Eugenio Peralta MD Work Phone: [facility] Comment on above: Orders Start: 11-14-2022 End: 11-14-2022 Subsequent hospital visit by physician Lou [facility] Work Phone: Radiology Comment on above: Arthritis of right s acroiliac joint [M47.818] Start: 11-14-2022 End: 11-14-2022 Patient encounter procedure Mavis Hughes PA-C Work Phone: [facility] Comment on above: Essential hypertensi on (Primary Dx); Low HDL (under 40); Gastroesophageal reflux disease without esophagitis; Hx of acute gastritis; Dyskinesia of esophagus; Seasonal allergic rhinitis due to pollen; Lichen sclerosus et atrophicus of the vulva; Arthritis of right sacroiliac joint; Pulsatile abdomen; Lumbosacral pain; Asymptomatic postmenopausal state; Current use of proton pump inhibitor; Low vitamin D level; Chronic kidney disease, stage 3a ([facility]); Medicare annual wellness visit, subsequent; Wellness examination Start: 11-14-2022 End: 11-14-2022 Patient encounter status Mavis Ko Hughes PA-C Work Phone: [facility] Work Phone: Start: 11-01-2022 End: 11-01-2022 Patient encounter procedure Johanne Santos APRN.CNP Work Phone: [facility] Comment on above: Sore throat (Primary Dx); URI, acute; Non-recurrent acute serous otitis media of right ear Start: 10-28-2022 End: 10-28-2022 Patient encounter procedure Crystal Pastrana PA-C Work Phone: General Surgery Comment on above: Dysphagia, unspecifi ed type (Primary Dx); Chronic superficial gastritis without bleeding; Long-term current use of proton pump inhibitor therapy; Allergic contact dermatitis due to adhesives Start: 10-21-2022 End: 10-21-2022 Subsequent hospital visit by physician Lou [facility] Work Phone: Radiology Comment on above: Hand pain, right [M7 9.641] Start: 10-20-2022 End: 10-20-2022 Subsequent hospital visit by physician Eriberto Disla MD Work Phone: Ambulatory Surgery Comment on above: Gastroesophageal ref lux disease with esophagitis without hemorrhage [K21.00] Start: 07-22-2022 End: 07-22-2022 Patient encounter procedure Crystal Pastrana PA-C Work Phone: General Surgery Comment on above: Dyskinesia of esopha thor; Gastroesophageal reflux disease without esophagitis; Hx of acute gastritis Start: 06-02-2022 Telephone encounter Mavis Hughes PA-C Work Phone: [facility] Comment on above: Referral Request Start: 05-26-2022 Telephone encounter Tiffani carter SCHOOL OPERATIONS MANAGER.STRETCH MACHINE OPERATOR Work Phone: OB/Gynecology Comment on above: Orders Start: 05-12-2022 Telephone encounter Mavis Ko Hughes PA-C Work Phone: [facility] Comment on above: Patient Question Start: 05-12-2022 End: 05-12-2022 Nursing evaluation of patient and report Mi Nurse Work Phone: [facility] Comment on above: Need for vaccination (Primary Dx) Start: 02-17-2022 End: 02-17-2022 Subsequent hospital visit by physician Lou [facility] Work Phone: Radiology Comment on above: Sinobronchitis [J32. 9, J40] Start: 02-17-2022 End: 02-17-2022 Office outpatient visit 15 minutes Lola Farris 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 Work Phone: [facility] Comment on above: Sinobronchitis (Prim aliisa Dx) Start: 02-13-2022 End: 02-13-2022 Patient encounter procedure Alberto Le 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 Work Phone: [facility] Comment on above: URI, acute (Primary Dx); Sore throat Start: 01-27-2022 Refill Mavis AYOUB-C Work Phone: [facility] Comment on above: Refill Request Start: 01-03-2022 Documentation procedure Mammog deven Coordinator [facility] Start: 01-03-2022 Letter encounter Mammography Coordinator [facility] Department Start: 01-02-2022 End: 01-02-2022 Subsequent hospital visit by physician Screen Mammo [facility] Comment on above: Encounter for screen ing mammogram for malignant neoplasm of breast [Z12.31] Start: 01-02-2022 End: 01-02-2022 Patient encounter procedure Tiffani Gant 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 Work Phone: OB/Gynecology Comment on above: Encounter for gyneco logical examination (general) (routine) without abnormal findings (Primary Dx); Encounter for screening mammogram for breast cancer; Postmenopausal atrophic vaginitis; Lichen sclerosus Start: 01-02-2022 End: 01-02-2022 Patient encounter status Tiffani Gant 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 Work Phone: OB/Gynecology Start: 12-17-2021 End: 12-17-2021 Nursing evaluation of patient and report Mi Nurse Work Phone: [facility] [place] Comment on above: Essential hypertensi on (Primary Dx) Start: 12-10-2021 Telephone encounter Sharon bundy 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 Work Phone: OB/Gynecology Comment on above: Orders Start: 11-18-2021 ambulatory M Ko Tucker on PA-C Work Phone: [facility] [place] Comment on above: Tetanus Booster Start: 11-15-2021 End: 11-15-2021 Nursing evaluation of patient and report Mi Nurse Work Phone: [facility] [place] Comment on above: Need for vaccination (Primary Dx) Start: 11-01-2021 End: 11-01-2021 Patient encounter procedure Eugenio Peralta MD Work Phone: [facility] [place] Comment on above: Need for COVID-19 va ccine (Primary Dx) Start: 05-16-2020 End: 05-16-2020 Patient encounter procedure EUGENIO PATEL [facility] Start: 04-20-2020 End: 04-20-2020 Patient encounter procedure EUGENIO Bundy [facility] Procedures Date Procedure Procedure Detail Performing Clinician Start: 01-07-2024 Screening digital breast tomosynthesis bi Tiffani Corralf SCHOOL OPERATIONS MANAGER.STRETCH MACHINE OPERATOR Work Phone: Start: 12-30-2023 PFIZER-BIONTECH COVID-19 VACCINE AGE 12+ YR (COMIRNATY) Eugenio Peralta MD Work Phone: Start: 10-26-2023 Adult depression screening assessment Eugenio Perlata MD Work Phone: Start: 10-20-2023 Lipid 1996 panel - Serum or Plasma Rosas Peralta MD Work Phone: Start: 03-31-2023 Radiologic exam chest 2 views Daisy howard SCHOOL OPERATIONS MANAGER.STRETCH MACHINE OPERATOR Work Phone: Start: 01-10-2023 PFIZER-BIONTECH COVID-19 VACCINE (2022- SEASON) AGE 12+ YR Mehnaz Wong MD Work Phone: Start: 01-10-2023 INFLUENZA VACCINE, PRSV FREE, AGE 65+ YR, HIGH DOSE, QUADRIVALENT (FLUZONE HIGH-DOSE) Mehnaz Wong MD Work Phone: Start: 01-05-2023 Screening digital breast tomosynthesis bi Tiffani Corralf SCHOOL OPERATIONS MANAGER.STRETCH MACHINE OPERATOR Work Phone: Start: 12-16-2022 Radex foot complete minimum 3 views Huseyin jayyw Testrake Work Phone: Start: 12-03-2022 Dxa bone density study 1/> sites axial skel M Ko Hughes PA-C Work Phone: Start: 12-03-2022 Us abdominal aorta real time screen study aaa M Ko Hughes PA-C Work Phone: Start: 11-15-2022 Lipid 1996 panel - Serum or Plasma Reji Morgan PT Work Phone: Start: 11-14-2022 Radex spine lumbosacral 2/3 views Mavis Hughes PA-C Work Phone: Start: 11-01-2022 STREP A MOLECULAR (POC) Johanne Santos SCHOOL OPERATIONS MANAGER. STRETCH MACHINE OPERATOR Work Phone: Start: 10-21-2022 Radex hand minimum 3 views Aury Hylton Work Phone: Start: 10-20-2022 Level iv surg pathology gross&microscopic exam Eriberto Disla MD Work Phone: Start: 10-20-2022 Esophagogastroduodenoscopy transoral diagnostic Crystal Pastrana PA-C Work Phone: Start: 05-12-2022 PFIZER-BIONTECH COVID-19 BIVALENT BOOSTER VACCINE, AGE 12+ YR M Ko Hughes PA-C Work Phone: Start: 02-17-2022 Radiologic exam chest 2 views Lola barry 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 Work Phone: Start: 02-13-2022 STREP A MOLECULAR (POC) [facility] Provider Start: 01-02-2022 Mammography Mammography Coordinator Start: 11-12-2021 Adult depression screening assessment Mi Nurse Work Phone: Start: 11-01-2021 PFIZER-BIONTECH COVID-19 VACCINE, AGE 12+ YR (HOANG TOP) Eugenio Peralta MD Work Phone: Start: 11-16-2020 Mammography Eugenio Peralta MD Work Phone: Start: 07-24-2020 Adult depression screening assessment Eugenio Peralta MD Work Phone: Start: 10-05-2017 Colonoscopy Eugenio Peralta MD Work Phone: Plan of Treatment Date Care Activity Detail Author Start: 10-19-2028 Lipid panel Lipid Screening [facility] Start: 10-06-2028 Urine microalbumin profile [facility] Start: 11-16-2027 Lipid 1996 panel - Serum or Plasma Lipid Screening [facility] Start: 11-16-2027 Lipid panel Lipid Screening [facility] Start: 11-16-2027 LIPID SCREEN LIPID SCREEN [facility] Start: 10-06-2027 Colonoscopy COLONOSCOPY [facility] Start: 10-06-2027 COLORECTAL CANCER SCREENING COLORECTAL CANCER SCREENING [facility] Start: 10-06-2027 Screening for malign ant neoplasm of colon [facility] Start: 11-13-2026 LIPID SCREEN LIPID SCREEN [facility] Start: 10-19-2026 Diabetes Screening Diabetes Screenin g [facility] Start: 11-15-2025 DIABETES SCREEN DIABETES SCREEN [facility] Start: 11-15-2025 Diabetes Screening Diabetes Screenin g [facility] Start: 03-14-2025 Annual PCP Team Assembler Truck Trailer rocco Disease Visit Annual PCP Team Chronic Disease Visit [facility] Start: 03-14-2025 BP Controlled (<130/80) BP Controlle d (<130/80) [facility] Start: 02-21-2025 Annual PCP Team Assembler Truck Trailer rocco Disease Visit Annual PCP Team Chronic Disease Visit [facility] Start: 01-12-2025 LIPID SCREEN LIPID SCREEN [facility] Start: 01-09-2025 End: 01-09-2025 Patient encounter procedure 01/09/2025 11:30 AM EDT Office Visit OB/Gynecology [address] [place] [address] Tiffani Gant 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 [address] [place] [address] Annual OB/Gynecology Comment on above: Annual Start: 01-09-2025 End: 01-09-2025 Patient encounter procedure Mammogram Comment on above: Encounter for gyneco logical examination (general) (routine) without abnormal findings [Z01.419]; Encounter for screening mammogram for breast cancer [Z12.31] Annual Start: 01-06-2025 Screening for malign ant neoplasm of breast Mammogram Screening [facility] Start: 12-02-2024 Annual PCP Team Assembler Truck Trailer rocco Disease Visit Annual PCP Team Chronic Disease Visit [facility] Start: 11-13-2024 DIABETES SCREEN DIABETES SCREEN [facility] Start: 10-26-2024 End: 10-26-2024 Patient encounter procedure 10/26/2024 10:40 AM EDT Office Visit Family [facility] [place] [address] [place] [address] Eugenio Peralta MD [address] [place] [address] physical [facility] [place] Comment on above: physical Start: 10-25-2024 Annual PCP Team Assembler Truck Trailer rocco Disease Visit Annual PCP Team Chronic Disease Visit [facility] Start: 10-25-2024 Anxiety Screening Anxiety Screening [facility] Start: 10-25-2024 Covid-19 Vaccine () Covid-19 Vaccine () [facility] Comment on above: Postponed from 05/13 (Declined at this time) Start: 10-25-2024 Depression Screening Depression Scre ening [facility] Start: 10-25-2024 RSV Vaccine (1 - 1-d ose 60+ series) RSV Vaccine (1 - 1-dose 60+ series) [facility] Comment on above: Postponed from 10/11 (Declined at this time) Start: 10-19-2024 Creatinine measurement Serum Creatin ine [facility] Start: 06-29-2024 Covid-19 Vaccine () Covid-19 Vaccine () [facility] Start: 04-21-2024 Annual PCP Team Assembler Truck Trailer rocco Disease Visit Annual PCP Team Chronic Disease Visit [facility] Start: 03-30-2024 Advance Directive Discussion Advance Directive Discussion [facility] Start: 03-21-2024 End: 03-21-2024 Patient encounter procedure 03/21/2024 10:00 AM EST Office Visit [facility] [place] [address] [place] [address] Lola Farris 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 [address] [facility] [place] [address] 1 month BP check [facility] [place] Comment on above: 1 month BP check Start: 01-07-2024 End: 01-07-2024 Patient encounter procedure Mammogram Comment on above: Encounter for screen ing mammogram for malignant neoplasm of breast [Z12.31] annual Start: 01-06-2024 Mammography Mammogram Screening [facility] Start: 01-06-2024 Screening for malign ant neoplasm of breast Mammogram Screening [facility] Start: 12-30-2023 End: 12-30-2023 Patient encounter procedure 12/30/2023 1:40 PM EDT Immunization [facility] [place] [address] [place], [place] [id number] [place], Immunization Clinic Nurse [address] [place], [place] [id number] Want Covid & flu vaccinations [facility] [place] Comment on above: Want Covid & flu vac cinations Start: 12-29-2023 Covid-19 Vaccine ( season) Covid-19 Vaccine () [facility] Comment on above: Postponed from 11/28 (Currently Scheduled) Start: 12-29-2023 Influenza vaccination Influenza Vacc ine (#1) [facility] Comment on above: Postponed from 11/28 (Currently Scheduled) Start: 12-24-2023 End: 12-24-2023 Patient encounter procedure 12/24/2023 2:00 PM EDT Office Visit [facility] [address] [place], [place] [id number] Natalia Monge, SCHOOL OPERATIONS MANAGER.STRETCH MACHINE OPERATOR [address] [place], [place] [phone] BP check, and check Pts BP cuff. See TE 12/22/23. [facility] Comment on above: BP check, and check Pts BP cuff. See TE 12/22/23. Start: 11-29-2023 Covid-19 Vaccine ( season) Covid-19 Vaccine ( season) [facility] Start: 11-29-2023 Covid-19 Vaccine ( season) Covid-19 Vaccine ( season) [facility] Start: 11-29-2023 Influenza vaccination Influenza Vacc ine (#1) [facility] Start: 11-16-2023 Creatinine measurement Serum Creatin ine [facility] Start: 11-16-2023 SERUM CREATININE SERUM CREATININE [facility] Start: 11-15-[address] CONDUCTOR ROCCO DISEASE VISIT ANNUAL PCP TEAM CHRONIC DISEASE VISIT [facility] Start: 11-15-2023 COVID-19 VACCINE (6 - Pfizer series) COVID-19 VACCINE (6 - Pfizer series) [facility] Comment on above: Postponed from 09/09 (Declined at this time) Start: 10-26-2023 End: 10-26-2023 Patient encounter procedure 10/26/2023 11:00 AM EDT Office Visit [facility] [place] [address] [place] [address] Eugenio Peralta MD [address] [place] [address] well visit [facility] [place] Comment on above: well visit Start: 07-27-2023 DIABETES SCREEN DIABETES SCREEN [facility] Start: 05-13-2023 Covid-19 Vaccine () Covid-19 Vaccine () [facility] Start: 03-30-2023 Advance Directive Discussion Advance Directive Discussion [facility] Start: 03-30-2023 Behavioral Health Screening Behavioral Health Screening [facility] Start: 03-30-2023 Depression Assessment Depression Ass essment [facility] Start: 02-17-2023 COVID-19 VACCINE (5 - Booster for Pfizer series) COVID-19 VACCINE (5 - Booster for Pfizer series) [facility] Comment on above: Postponed from 12/27 (Declined at this time) Start: 01-02-2023 Mammography [facility] Start: 11-28-2022 Covid-19 Vaccine () Covid-19 Vaccine () [facility] Start: 11-28-2022 Influenza vaccination [facility] Start: 11-14-2022 End: 01-14-2023 25-hydroxyvitamin D3 [Mass/volume] in Serum or Plasma VITAMIN D 25 HYDROXY Lab Routine Low vitamin D level Expected: 11/14/2022, Expires: 01/14/2023 [facility] Work Phone: Comment on above: Expected: 11/14/2022 , Expires: 01/14/2023 Start: 11-14-2022 End: 01-14-2023 CBC W Auto Differential panel - Blood CBC + DIFF Lab Routine Essential hypertension Expected: 11/14/2022, Expires: 01/14/2023 [facility] Work Phone: Comment on above: Expected: 11/14/2022 , Expires: 01/14/2023 Start: 11-14-2022 End: 01-14-2023 Comprehensive metabolic 2000 panel - Serum or Plasma COMP METABOLIC PANEL Lab Routine Essential hypertension Expected: 11/14/2022, Expires: 01/14/2023 [facility] Work Phone: Comment on above: Expected: 11/14/2022 , Expires: 01/14/2023 Start: 11-14-2022 End: 01-14-2023 Lipid 1996 panel - Serum or Plasma LIPID PANEL BASIC Lab Routine Low HDL (under 40) Expected: 11/14/2022, Expires: 01/14/2023 [facility] Work Phone: Comment on above: Expected: 11/14/2022 , Expires: 01/14/2023 Start: 11-14-2022 End: 01-14-2023 Magnesium [Mass/volume] in Serum or Plasma MAGNESIUM BLD Lab Routine Current use of proton pump inhibitor Expected: 11/14/2022, Expires: 01/14/2023 [facility] Work Phone: Comment on above: Expected: 11/14/2022 , Expires: 01/14/2023 Start: 11-13-2022 HEMOGLOBIN/HEMATOCRIT HEMOGLOBIN/HEM ATOCRIT [facility] Start: 11-13-2022 SERUM CREATININE SERUM CREATININE Cl [facility] Start: 11-12-2022 Adult depression screening assessment DEPRESSION SCREENING [facility] Start: 11-12-[address] CONDUCTOR ROCCO DISEASE VISIT ANNUAL PCP TEAM CHRONIC DISEASE VISIT [facility] Start: 11-01-[address] CONDUCTOR ROCCO DISEASE VISIT ANNUAL PCP TEAM CHRONIC DISEASE VISIT [facility] Start: 09-09-2022 COVID-19 VACCINE (6 - Pfizer series) COVID-19 VACCINE (6 - Pfizer series) [facility] Start: 03-30-2022 ADVANCE DIRECTIVE DISCUSSION ADVANCE DIRECTIVE DISCUSSION [facility] Start: 03-30-2022 DEPRESSION ASSESSMENT DEPRESSION ASS ESSMENT [facility] Start: 12-27-2021 COVID-19 VACCINE (5 - Booster for Pfizer series) COVID-19 VACCINE (5 - Booster for Pfizer series) [facility] Start: 11-28-2021 Influenza vaccination INFLUENZA (#1) [facility] Start: 11-16-2021 Mammography MAMMOGRAM [facility] Start: 11-12-2021 PNEUMOCOCCAL: 65+ (2 - PCV) PNEUMOCOCCAL: 65+ (2 - PCV) [facility] Start: 07-24-2021 Adult depression screening assessment DEPRESSION SCREENING [facility] Start: 03-30-2021 ADVANCE DIRECTIVE DISCUSSION ADVANCE DIRECTIVE DISCUSSION [facility] Start: 03-30-2021 DEPRESSION ASSESSMENT DEPRESSION ASS ESSMENT [facility] Start: 01-12-2021 HEMOGLOBIN/HEMATOCRIT HEMOGLOBIN/HEM ATOCRIT [facility] Start: 01-12-2021 SERUM CREATININE SERUM CREATININE Cl [facility] Start: 10-08-2016 FECAL OCCULT BLOOD FECAL OCCULT BLOO D [facility] Start: 10-08-2016 Screening for malign ant neoplasm of colon Fecal Occult Blood [facility] Start: 2015 RSV Vaccine (1 - 1-d ose 60+ series) RSV Vaccine (1 - 1-dose 60+ series) [facility] Start: 10-11-2000 COLOGUARD (FIT-DNA) COLOGUARD (FIT-D NA) [facility] Start: 10-11-[address] COLONOGRAPHY [facility] Start: 10-11-2000 Screening for malign ant neoplasm of colon [facility] Start: 10-11-2000 SIGMOIDOSCOPY SIGMOIDOSCOPY [facility] Start: 10-11-1973 BP Controlled (<130/80) BP Controlle d (<130/80) [facility] ALERE STREP A TEST (AG) ALERE ST REP A TEST (AG) Lab Routine Sore throat Ordered: 02/13/2022 [facility] Work Phone: Comment on above: Ordered: 02/13/2022 End: 09-24-2024 DBT Breast - bilateral screening ELLIOT SCREENING W [facility] Radiology Routine Encounter for screening mammogram for malignant neoplasm of breast 1 Occurrences starting 08/27/2023 until 09/24/2024 [facility] Work Phone: Comment on above: 1 Occurrences starti ng 08/27/2023 until 09/24/2024 End: 02-05-2025 DBT Breast - bilateral screening ELLIOT SCREENING W [facility] Radiology Routine Encounter for gynecological examination (general) (routine) without abnormal findings Encounter for screening mammogram for breast cancer 1 Occurrences starting 01/07/2024 until 02/05/2025 [facility] Work Phone: Comment on above: 1 Occurrences starti ng 01/07/2024 until 02/05/2025 End: 12-14-2023 DXA-AXIAL SKELETON DXA-AXIAL SKELETON Radiology Routine Asymptomatic postmenopausal state 1 Occurrences starting 11/14/2022 until 12/14/2023 [facility] Work Phone: Comment on above: 1 Occurrences starti ng 11/14/2022 until 12/14/2023 Influenza virus A an d B RNA and SARS-CoV-2 (COVID-19) N gene panel - Respiratory specimen by GUSTAVO with probe detection COVID WITH FLUA+B, ROUTINE Microbiology Routine URI, acute Ordered: 02/13/2022 [facility] Work Phone: Comment on above: Ordered: 02/13/2022 End: 06-25-2023 ELLIOT SCREENING W SAIRA ELLIOT SCREENING W [facility] Radiology Routine Encounter for screening mammogram for malignant neoplasm of breast Dense breast tissue 1 Occurrences starting 05/26/2022 until 06/25/2023 [facility] Work Phone: Comment on above: 1 Occurrences starti ng 05/26/2022 until 06/25/2023 PAP TEST PAP TEST Lab [facility] Screening for malignant neoplasm of cervix Encounter for screening for human papillomavirus (HPV) 01/07/2024 11:26 AM EDT [facility] End: 12-14-2023 Radex spine lumbosacral 2/3 views XR LUMBAR GENERAL 3V AP/LAT/L5-S1 Radiology Routine Arthritis of right sacroiliac joint Lumbosacral pain 1 Occurrences starting 11/14/2022 until 12/14/2023 [facility] Work Phone: Comment on above: 1 Occurrences starti ng 11/14/2022 until 12/14/2023 Radex spine lumbosac ral 2/3 views XR LUMBAR GENERAL 3V AP/LAT/L5-S1 Radiology Routine Arthritis of right sacroiliac joint Lumbosacral pain 11/14/2022 11:42 AM EDT [facility] Work Phone: End: 01-09-2023 Screening mammography bi 2-view breast inc cad ELLIOT SCREENING Radiology Routine Encounter for screening mammogram for malignant neoplasm of breast 1 Occurrences starting 12/10/2021 until 01/09/2023 [facility] Work Phone: Comment on above: 1 Occurrences starti ng 12/10/2021 until 01/09/2023 End: 02-01-2023 Screening mammography bi 2-view breast inc cad ELLIOT SCREENING Radiology Routine Postmenopausal atrophic vaginitis 1 Occurrences starting 01/02/2022 until 02/01/2023 [facility] Work Phone: Comment on above: 1 Occurrences starti ng 01/02/2022 until 02/01/2023 End: 01-02-2022 Screening mammography bi 2-view breast inc cad [facility] Work Phone: Comment on above: 1 Occurrences starti ng 01/02/2022 until 01/02/2022 End: 12-14-2023 Us abdominal aorta real time screen study aaa US SCREENING FOR AAA Radiology Routine Pulsatile abdomen 1 Occurrences starting 11/14/2022 until 12/14/2023 [facility] Work Phone: Comment on above: 1 Occurrences starti ng 11/14/2022 until 12/14/2023 End: 02-18-2024 US VENOUS INCOMPETENCY [facility] US VENOUS INCOMPETENCY [facility] Vascular Lab Routine Symptomatic varicose veins of both lower extremities 1 Occurrences starting 02/17/2023 until 02/18/2024 [facility] Work Phone: Comment on above: 1 Occurrences starti ng 02/17/2023 until 02/18/2024 End: 12-26-2023 XR FOOT GENERAL 3V AP/LAT/OBL BILATERAL XR FOOT GENERAL 3V AP/LAT/OBL BILATERAL Radiology Routine Pain 1 Occurrences starting 11/26/2022 until 12/26/2023 [facility] Work Phone: Comment on above: 1 Occurrences starti ng 11/26/2022 until 12/26/2023 End: 03-23-2025 XR Knee - right 4 Views XR KNEE GENERAL 4V AP BOTH/PA BOTH/LAT/MERC RIGHT Radiology Routine Acute pain of right knee 1 Occurrences starting 02/22/2024 until 03/23/2025 [facility] Work Phone: Comment on above: 1 Occurrences starti ng 02/22/2024 until 03/23/2025 XR Knee - right 4 Views XR KNEE GENERAL 4V AP BOTH/PA BOTH/LAT/MERC RIGHT Radiology Routine Acute pain of right knee 02/22/2024 12:47 PM EST [facility] Immunizations Immunization Date Immunization Notes Care Provider Debbie chris 12-30-2023 COVID-19 vaccine, ag e 12+ yr (PFIZER-BIONTECH COMIRNATY) Immunization [place] Work Phone: [facility] 12-30-2023 influenza, high dose seasonal, preservative-free Immunization [place] Work Phone: [facility] 11-25-2023 respiratory syncytia l virus (RSV) vaccine, adjuvanted (AREXVY) Eugenio Peralta MD Work Phone: [facility] 01-10-2023 COVID-19 vaccine, ag e 12+ yr, season (PFIZER-BIONTECH) Immunization [place] Work Phone: [facility] Work Phone: 01-10-2023 influenza (HD-IIV4) vaccine, age 65+ yr, high dose, quadrivalent, PF (FLUZONE HIGH-DOSE) Immunization [place] Work Phone: [facility] 01-10-2023 influenza virus vaccine, unspecified formulation Eugenio Peralta MD Work Phone: [facility] 05-12-2022 COVID-19 booster vaccine, age 12+ yr, bivalent (PFIZER-BIONTECH) Ar Nurse Work Phone: [facility] Work Phone: 12-28-2021 influenza, high-dose , quadrivalent vaccine (FLUZONE HIGH DOSE QUADRIVALENT) Tiffani Gant 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 Work Phone: [facility] 12-28-2021 influenza virus vaccine, unspecified formulation Reji Morgan PT Work Phone: [facility] 11-15-2021 pneumococcal (PCV20) vaccine, 20 valent (PREVNAR 20) Ar Nurse Work Phone: [facility] Work Phone: 11-01-2021 COVID-19 vaccine, ag e 12+ yr (PFIZER-BIONTECH - HOANG TOP) Eugenio Peralta MD Work Phone: [facility] 03-05-2021 COVID-19 vaccine, ag e 12+ yr (PFIZER-BIONTECH - PURPLE TOP) Eugenio Peralta MD Work Phone: [facility] 12-29-2020 influenza, high-dose , quadrivalent vaccine (FLUZONE HIGH DOSE QUADRIVALENT) Eugenio Peralta MD Work Phone: [facility] Work Phone: 11-12-2020 pneumococcal polysaccharide vaccine, 23 valent Eugenio Peralta MD Work Phone: [facility] Work Phone: 05-16-2020 COVID-19 vaccine, ag e 12+ yr (PFIZER-BIONTECH - PURPLE TOP) Eugenio Peralta MD Work Phone: [facility] 04-20-2020 COVID-19 vaccine, ag e 12+ yr (PFIZER-BIONTECH - PURPLE TOP) Eugenio Peralta MD Work Phone: [facility] 12-30-2019 influenza, injectabl e, quadrivalent, contains preservative Eugenio Peralta MD Work Phone: [facility] Work Phone: 01-22-2019 influenza, injectabl e, quadrivalent, contains preservative Eugenio Peralta MD Work Phone: [facility] 12-10-2018 zoster vaccine recombinant Eugenio Peralta MD Work Phone: [facility] Work Phone: 10-06-2018 tetanus toxoid, redu priya diphtheria toxoid, and acellular pertussis vaccine, adsorbed Eugenio Peralta MD Work Phone: [facility] 10-06-2018 zoster vaccine recombinant Eugenio Peralta MD Work Phone: [facility] 01-09-2018 influenza, injectabl e, quadrivalent, contains preservative Eugenio Peralta MD Work Phone: [facility] 01-03-2017 influenza, injectabl e, quadrivalent, contains preservative Eugenio Peralta MD Work Phone: [facility] 01-04-2016 influenza, injectabl e, quadrivalent, contains preservative Eugenio Peralta MD Work Phone: [facility] Work Phone: 12-30-2014 influenza, injectabl e, quadrivalent, contains preservative Eugenio Peralta MD Work Phone: [facility] Work Phone: 02-15-2014 influenza, seasonal, injectable Eugenio Peralta MD Work Phone: [facility] 07-27-2013 zoster vaccine, live Eugenio Peralta MD Work Phone: [facility] Work Phone: 01-29-2012 influenza virus vaccine, unspecified formulation Eugenio Peralta MD Work Phone: [facility] 03-27-2009 novel [id number], preservative-free, injectable Eugenio Peralta MD Work Phone: [facility] 10-09-2008 tetanus toxoid, redu priya diphtheria toxoid, and acellular pertussis vaccine, adsorbed Eugenio Peralta MD Work Phone: [facility] Work Phone: 01-24-2006 influenza virus vaccine, unspecified formulation Eugenio Peralta MD Work Phone: [facility] Payers Date Payer Category Payer Self-pay 2020 Medicare MMO MEDICARE MMO MEDADVANTAGE HMO [id number] 2020-Present [phone] [address] [place] [address] O [id number] 2020 Medicare MMO MEDICARE MMO MEDADVANTAGE HMO [id number] 2020-Present [phone] [address] [place] [address] O [id number] 2020 Medicare (Managed Care) MMO FRANCISCO JAVIER DVANTAGE HMO [id number] 2020 Unknown [id number] Unknown [id number] Unknown [id number] Unknown [id number] Unknown [id number] Unknown [id number] Social History Date Type Detail Facility Start: 03-06-2011 End: 01-02-2022 Tobacco smoking status NHIS Never smoked tobacco [facility] Work Phone: Start: 11-16-2020 End: 03-14-2024 Alcohol intake Current non-drinker of alcohol (finding) [facility] Start: 07-24-2020 End: 11-12-2021 History SDOH Alcohol Frequency 1 [facility] Start: 07-24-2020 End: 11-12-2021 History SDOH Social Connections Phone 2 [facility] Start: 07-24-2020 End: 11-12-2021 History SDOH Social Connections Roman Catholic 98 [facility] Start: 07-24-2020 End: 11-12-2021 History SDOH Social Connections Living 3 [facility] Start: 07-24-2020 End: 11-12-2021 History SDOH Financial 5 [facility] Start: 1955 Sex Assigned At Female C [facility] Start: 10-18-2021 End: 02-17-2022 Exposure to SARS-CoV-2 (event) Not sure [facility] Start: 03-06-2011 End: 01-02-2022 Tobacco use and exposure Smokeless tobacco non-user [facility] Start: 11-12-2021 History SDOH Alcohol Std Drinks 0 [facility] Start: 11-12-2021 History SDOH Social Connections Phone 4 [facility] Start: 11-12-2021 End: 10-28-2022 History of Social function [facility] Start: 11-12-2021 End: 10-28-2022 Social connection and isolation panel [facility] How often do you att end temple or christianity services? Patient refused [facility] Are you now , , , , never or living with a partner? [facility] How often to you hav e a drink containing alcohol? Never [facility] Do you feel stress - tense, restless, nervous, or anxious, or unable to sleep at night because your mind is troubled all the time - these days [OSQ] Only a little [facility] (I/We) worried whejose eduardo er (my/our) food would run out before (I/we) got money to buy more. Never true [facility] In the past 12 month s, was there a time when you were not able to pay the mortgage or rent on time? No [facility] Start: 12-28-2020 Gender identity Identifies as female gender (finding) [facility] Start: 12-28-2020 Sexual orientation Heterosexual (kevin florez) [facility] Do you feel stress - tense, restless, nervous, or anxious, or unable to sleep at night because your mind is troubled all the time - these days [OSQ] Not at all [facility] Functional Status Date Assessment Result Facility 10-28-2014 Are you deaf, or do you have serious difficulty hearing No 10/28/2014 8:00 AM Shanta Goddard MA No [facility] 10-28-2014 Are you blind, or do you have serious difficulty seeing, even when wearing glasses No 10/28/2014 8:00 AM Shanta Goddard MA No [facility] 10-28-2014 Do you have serious difficulty walking or climbing stairs No 10/28/2014 8:00 AM Shanta Goddard MA No [facility] 10-28-2014 Do you have difficul ty dressing or bathing No 10/28/2014 8:00 AM Shanta Goddard MA No [facility] 10-28-2014 Because of a physica l, mental, or emotional condition, do you have difficulty doing errands alone such as visiting a physician's office or shopping No 10/28/2014 8:00 AM Shanta Goddard MA No [facility] Mental Status Date Assessment Result Facility 10-28-2014 Because of a physica l, mental, or emotional condition, do you have serious difficulty concentrating, remembering, or making decisions No 10/28/2014 8:00 AM Shanta Goddard MA No [facility] Clinical Notes 07-25-2013 to 08-29-2024 Telephone Encounter - Jan Arrieta LPN - 08/29/2024 3:51 PM EDTTelephone Encounter - Jan Arrieta LPN - 08/29/2024 3:51 PM Eugenio Romero MD - 03/14/2024 11:13 AM ESTPatient Instructions Note Date & Type Note Facility 08-29-2024 Telephone encounter Note Prescription Refill Information The patient has been identified by name and date of : Yes Caregiver verified no other encounters exist for this prescription request: Yes Caregiver confirmed with patient/requestor that no other refills are due, in the near future, with this provider at this time: Yes The last office visit in the department: 03/14/24 Does the patient have a future office visit with this provider/department: Yes, 10/26/24 Requested Prescriptions Pending Prescriptions Disp Refills lisinopril (ZESTRIL) 10 mg tablet 90 tablet 1 Sig: Take 1 tablet by mouth once daily. Jan Arrieta LPN August 29, 2024 3:51 PM [facility] 08-29-2024 Miscellaneous Notes Prescription Refill Information The patient has been identified by name and date of : Yes Caregiver verified no other encounters exist for this prescription request: Yes Caregiver confirmed with patient/requestor that no other refills are due, in the near future, with this provider at this time: Yes The last office visit in the department: 03/14/24 Does the patient have a future office visit with this provider/department: Yes, 10/26/24 Requested Prescriptions Pending Prescriptions Disp Refills lisinopril (ZESTRIL) 10 mg tablet 90 tablet 1 Sig: Take 1 tablet by mouth once daily. Jan Arrieta LPN August 29, 2024 3:51 PM documented in this encounter [facility] 03-14-2024 Note HNO ID: [id number] Author: EUGENIO PERALTA MD Service: ? Author Type: Physician Type: Progress Notes Filed: 03/14/2024 12:03 Note Text: Patient presents with: Blood Pressure HPI: Patient presents today for office visit for follow up. HTN: Started lisinopril 02/22/24 when saw Lola. Denies chest pain,shortness of breath, headache, or dizziness. Checking BP at home. Will validate home monitor today. Home bps are reviewed and look good. 03/14/2024: Home BP Cuff Validated. Home BP: 126/85 Office BP: 122/72 Note was copied and pasted, without alteration from: Pt presents today with complaint of elevated blood pressure. She is getting 137-152/80-95. She is not currently on medication for blood pressure. HTN: Patient is compliant with meds n/a. Monitors bp at home: Yes. Denies side effects: n/a. Chest pain: will feel an occ tightness that resolves if she takes a deep breath. Dyspnea: No. Edema: No. Palpitations: No. Syncope: No. Headache: slight now and then Dizziness: No. MEDICATIONS: Current Outpatient Medications Medication Sig lisinopril (ZESTRIL) 10 mg tablet Take 1 tablet by mouth once daily. clobetasol (TEMOVATE) 0.05 % cream Apply to affected area 2x/day for 2 weeks, then 1x/day for a week, than 1-3x/week for maintenance. estradiol (ESTRACE) 0.01 % (0.1 mg/gram) vaginal cream Use small pea sized amount at vaginal opening twice a week. triamcinolone acetonide (KENALOG) 0.1 % cream Apply 1 application to affected area two times a day. pseudoephedrine (SUDAFED) 30 mg tablet Take 1 tablet by mouth every 4 hours as needed. pantoprazole DR (PROTONIX) 40 mg tablet Take 1 tablet by mouth once daily. sucralfate (CARAFATE) 1 gram tablet Take 1 tablet by mouth before meals and at bedtime. tiZANidine (ZANAFLEX) 4 mg tablet Take 1 tablet by mouth every 8 hours as needed (muscle spasms). calcium carbonate/vitamin d3(CALCIUM 500 WITH VITAMIN D 500 MG-125 UNIT TAB) Take one(1) tablet twice daily. No current facility-administered medications for this visit. ALLERGIES: ALLERGIES Allergen Reactions Adhesive Tape-Silic* Rash Per patient developed extensive rash from adhesive monitor sticker after endoscopy Poison Akanksha PAST MEDICAL HISTORY Diagnosis Date Acute gastritis without mention of hemorrhage Allergic rhinitis due to other allergen Arthritis Cancer (HCC) Deviated septum Dyskinesia of esophagus GERD (gastroesophageal reflux disease) 07/25/2013 Internal hemorrhoids without mention of complication Tinnitus PAST SURGICAL HISTORY Procedure Laterality Date CARPAL TUNNEL 03/09/2009 Rt wrist COLONOSCOPY FLX DX W/COLLJ SPEC WHEN PFRMD 09/06/2007 COLONOSCOPY FLX DX W/COLLJ SPEC WHEN PFRMD 10/05/2017 Colonoscopy EGD 10/20/2022 EGD TRANSORAL BIOPSY SINGLE/MULTIPLE 09/06/2007 ESOPHAGOGASTRODUODENOSCOPY TRANSORAL DIAGNOSTIC 10/05/2017 EGD LIG/TRNSXJ FLP TUBE ABDL/VAG APPR UNI/BI Tubal ligation NASAL ENDOSCOPY DIAG UNILBILAT 01/20/2015 SKIN BIOPSY HX FAMILY HISTORY Problem Relation Age of Onset Cancer Mother ovarian, had negative genetic testing Coronary Artery Disease Father after 55 Hypertension Father Diabetes Father other (hysterecomy) Sister cervical cancer cells other (Precancerous cervix cells) Sister cancerous cells in uterus per Sharon Ellis CNP other (hysterectomy) Sister half-sister; unknown etiology Diabetes Maternal Grandmother Cancer Paternal Grandmother possibly ovarian or cervical other (abnormal pap) Daughter other (Precancerous cervix cells) Other Niece (hysterectomy) Social History Tobacco Use Smoking status: Never Smokeless tobacco: Never Vaping Use Vaping status: Never Used Substance Use Topics Alcohol use: No Drug use: No Reviewed current medications, allergies, past medical history, surgical history, family history and social history today. REVIEW OF SYSTEMS All other reviewed and negative other than HPI. HEALTH MAINTENANCE: Reviewed health maintenance issues today and recommended the following in detail. BP Controlled (<130/80) Never done VITALS: BP 122/72 Pulse 64 Wt 87.4 kg (192 lb 10.9 oz) LMP 09/17/2008 SpO2 97% BMI 31.08 kg/m? Last 4 Encounter Wt Readings: Date: Wt: 01/07/2024 86.4 kg (190 lb 6.4 oz) 12/24/2023 88.9 kg (195 lb 15.8 oz) 12/03/2023 87.5 kg (193 lb) 10/26/2023 88.5 kg (195 lb) PHYSICAL EXAMINATION: General appearance: Well appearing, alert, in no acute distress, well-hydrated, well nourished. Skin: Skin color, texture, turgor normal, no suspicious rashes or lesions Head: Normocephalic, no masses, lesions, tenderness or abnormalities Lungs: Lungs clear to auscultation. No wheezing, rhonchi, rales Heart: RRR without murmur, gallop, or rubs. No ectopy Abdomen: Normal abdominal exam, Abdomen soft, non-tender. Bowel sounds normal. No masses, organomegaly Extremities: No deformities, edema, skin discoloration, cl (more content not included)... [facility] 03-14-2024 History of Present illness Narrative Patient presents with: Blood Pressure HPI: Patient presents today for office visit for follow up. HTN: Started lisinopril 02/22/24 when saw Lola. Denies chest pain,shortness of breath, headache, or dizziness. Checking BP at home. Will validate home monitor today. Home bps are reviewed and look good. 03/14/2024: Home BP Cuff Validated. Home BP: 126/85 Office BP: 122/72 Note was copied and pasted, without alteration from: Pt presents today with complaint of elevated blood pressure. She is getting 137-152/80-95. She is not currently on medication for blood pressure. HTN: Patient is compliant with meds n/a. Monitors bp at home: Yes. Denies side effects: n/a. Chest pain: will feel an occ tightness that resolves if she takes a deep breath. Dyspnea: No. Edema: No. Palpitations: No. Syncope: No. Headache: slight now and then Dizziness: No. MEDICATIONS: Current Outpatient Medications Medication Sig lisinopril (ZESTRIL) 10 mg tablet Take 1 tablet by mouth once daily. clobetasol (TEMOVATE) 0.05 % cream Apply to affected area 2x/day for 2 weeks, then 1x/day for a week, than 1-3x/week for maintenance. estradiol (ESTRACE) 0.01 % (0.1 mg/gram) vaginal cream Use small pea sized amount at vaginal opening twice a week. triamcinolone acetonide (KENALOG) 0.1 % cream Apply 1 application to affected area two times a day. pseudoephedrine (SUDAFED) 30 mg tablet Take 1 tablet by mouth every 4 hours as needed. pantoprazole DR (PROTONIX) 40 mg tablet Take 1 tablet by mouth once daily. sucralfate (CARAFATE) 1 gram tablet Take 1 tablet by mouth before meals and at bedtime. tiZANidine (ZANAFLEX) 4 mg tablet Take 1 tablet by mouth every 8 hours as needed (muscle spasms). calcium carbonate/vitamin d3(CALCIUM 500 WITH VITAMIN D 500 MG-125 UNIT TAB) Take one(1) tablet twice daily. No current facility-administered medications for this visit. ALLERGIES: ALLERGIES Allergen Reactions Adhesive Tape-Silic* Rash Per patient developed extensive rash from adhesive monitor sticker after endoscopy Poison Akanksha PAST MEDICAL HISTORY Diagnosis Date Acute gastritis without mention of hemorrhage Allergic rhinitis due to other allergen Arthritis Cancer (HCC) Deviated septum Dyskinesia of esophagus GERD (gastroesophageal reflux disease) 07/25/2013 Internal hemorrhoids without mention of complication Tinnitus PAST SURGICAL HISTORY Procedure Laterality Date CARPAL TUNNEL 03/09/2009 Rt wrist COLONOSCOPY FLX DX W/COLLJ SPEC WHEN PFRMD 09/06/2007 COLONOSCOPY FLX DX W/COLLJ SPEC WHEN PFRMD 10/05/2017 Colonoscopy EGD 10/20/2022 EGD TRANSORAL BIOPSY SINGLE/MULTIPLE 09/06/2007 ESOPHAGOGASTRODUODENOSCOPY TRANSORAL DIAGNOSTIC 10/05/2017 EGD LIG/TRNSXJ FLP TUBE ABDL/VAG APPR UNI/BI Tubal ligation NASAL ENDOSCOPY DIAG UNILBILAT 01/20/2015 SKIN BIOPSY HX FAMILY HISTORY Problem Relation Age of Onset Cancer Mother ovarian, had negative genetic testing Coronary Artery Disease Father after 55 Hypertension Father Diabetes Father other (hysterecomy) Sister cervical cancer cells other (Precancerous cervix cells) Sister cancerous cells in uterus per Sharon Ellis CNP other (hysterectomy) Sister half-sister; unknown etiology Diabetes Maternal Grandmother Cancer Paternal Grandmother possibly ovarian or cervical other (abnormal pap) Daughter other (Precancerous cervix cells) Other Niece (hysterectomy) Social History Tobacco Use Smoking status: Never Smokeless tobacco: Never Vaping Use Vaping status: Never Used Substance Use Topics Alcohol use: No Drug use: No Reviewed current medications, allergies, past medical history, surgical history, family history and social history today. REVIEW OF SYSTEMS All other reviewed and negative other than HPI. HEALTH MAINTENANCE: Reviewed health maintenance issues today and recommended the following in detail. BP Controlled (<130/80) Never done VITALS: BP 122/72 Pulse 64 Wt 87.4 kg (192 lb 10.9 oz) LMP 09/17/2008 SpO2 97% BMI 31.08 kg/m Last 4 Encounter Wt Readings: Date: Wt: 01/07/2024 86.4 kg (190 lb 6.4 oz) 12/24/2023 88.9 kg (195 lb 15.8 oz) 12/03/2023 87.5 kg (193 lb) 10/26/2023 88.5 kg (195 lb) PHYSICAL EXAMINATION: General appearance: Well appearing, alert, in no acute distress, well-hydrated, well nourished. Skin: Skin color, texture, turgor normal, no suspicious rashes or lesions Head: Normocephalic, no masses, lesions, tenderness or abnormalities Lungs: Lungs clear to auscultation. No wheezing, rhonchi, rales Heart: RRR without murmur, gallop, or rubs. No ectopy Abdomen: Normal abdominal exam, Abdomen soft, non-tender. Bowel sounds normal. No masses, organomegaly Extremities: No deformities, edema, skin discoloration, clubbing or cyanosis. Good capillary refill. documented in this encounter [facility] 02-22-2024 History of Present illness Narrative Radiology Service Progress Note PATIENT NAME: Luacs Astudillo DATE OF SERVICE: February 22, 2024 TIME: 12:30 PM PATIENT IDENTITY VERIFICATION COMPLETED USING TWO (2) IDENTIFIERS: Name and Date of confirmed by patient verbally. FALL SCREENING: Has the patient had 2 falls in the last year or 1 fall with injury or currently using an Ambulatory Assistive Device (Walker, Cane, Wheelchair, Crutches, etc.)? No PATIENT GENDER DATA: Female. status: : No status: NO. PATIENT RELEVANT IMPLANT DATA REVIEWED: Yes PATIENT PRESENTS WITH AN IMPLANTABLE OR ATTACHED EQUIPMENT VALIDATION SPECIALIST: No RADIOLOGY DEPARTMENT: General X-ray: Exam(s) Completed: Lower Extremity X-Ray(s): Knee, AP / Lat / Tunne / Merchant Right PERIPHERAL IV DATA: Not applicable SIGNED BY: RT April(R) February 22, 2024 12:30 PM documented in this encounter [facility] 02-22-2024 Note HNO ID: [id number] Author: IVANA WELLINGTON RT(R) Service: ? Author Type: Induction Coordination Engineer Type: Progress Notes Filed: 02/22/2024 12:47 Note Text: Radiology Service Progress Note PATIENT NAME: Lucas Astudillo DATE OF SERVICE: February 22, 2024 TIME: 12:30 PM PATIENT IDENTITY VERIFICATION COMPLETED USING TWO (2) IDENTIFIERS: Name and Date of confirmed by patient verbally. FALL SCREENING: Has the patient had 2 falls in the last year or 1 fall with injury or currently using an Ambulatory Assistive Device (Walker, Cane, Wheelchair, Crutches, etc.)? No PATIENT GENDER DATA: Female. status: : No status: NO. PATIENT RELEVANT IMPLANT DATA REVIEWED: Yes PATIENT PRESENTS WITH AN IMPLANTABLE OR ATTACHED EQUIPMENT VALIDATION SPECIALIST: No RADIOLOGY DEPARTMENT: General X-ray: Exam(s) Completed: Lower Extremity X-Ray(s): Knee, AP / Lat / Tunne / Merchant Right PERIPHERAL IV DATA: Not applicable SIGNED BY: RT April(R) February 22, 2024 12:30 PM [facility] 02-22-2024 Instructions Lola Farris APRN.CNP - 02/22/2024 12:21 PM EST Get the knee xray. Start the lisinopril. Recheck in a month. documented in this encounter [facility] 02-22-2024 Note HNO ID: [id number] Author: LOLA FARRIS APRN.JAIRON Service: ? Author Type: Nurse Practitioner Type: Progress Notes Filed: 02/22/2024 20:43 Note Text: This is a 68 year old female who presents today with: Patient presents with: Recheck: BP check HISTORY OF PRESENT ILLNESS: Lucas Astudillo is a 68 year old female. Patient presents with: Recheck: BP check Pt presents today with complaint of elevated blood pressure. She is getting 137-152/80-95. She is not currently on medication for blood pressure. HTN: Patient is compliant with meds n/a. Monitors bp at home: Yes. Denies side effects: n/a. Chest pain: will feel an occ tightness that resolves if she takes a deep breath. Dyspnea: No. Edema: No. Palpitations: No. Syncope: No. Headache: slight now and then Dizziness: No. Pain in the right knee. Medial aspect. Refers that she has a hx of arthritis, however has been having worsening pain in the medial aspect. No injury. Using voltaren gel, which temporarily helps. Cannot take nsaids. PAST MEDICAL HISTORY: PAST MEDICAL HISTORY Diagnosis Date Acute gastritis without mention of hemorrhage Allergic rhinitis due to other allergen Arthritis Cancer (HCC) Deviated septum Dyskinesia of esophagus GERD (gastroesophageal reflux disease) 07/25/2013 Internal hemorrhoids without mention of complication Tinnitus PAST SURGICAL HISTORY Procedure Laterality Date CARPAL TUNNEL 03/09/2009 Rt wrist COLONOSCOPY FLX DX W/COLLJ SPEC WHEN PFRMD 09/06/2007 COLONOSCOPY FLX DX W/COLLJ SPEC WHEN PFRMD 10/05/2017 Colonoscopy EGD 10/20/2022 EGD TRANSORAL BIOPSY SINGLE/MULTIPLE 09/06/2007 ESOPHAGOGASTRODUODENOSCOPY TRANSORAL DIAGNOSTIC 10/05/2017 EGD LIG/TRNSXJ FLP TUBE ABDL/VAG APPR UNI/BI Tubal ligation NASAL ENDOSCOPY DIAG UNILBILAT 01/20/2015 SKIN BIOPSY HX ALLERGIES Adhesive Tape-Silicones and Poison Akanksha MEDICATIONS Current Outpatient Medications Medication Sig clobetasol (TEMOVATE) 0.05 % cream Apply to affected area 2x/day for 2 weeks, then 1x/day for a week, than 1-3x/week for maintenance. estradiol (ESTRACE) 0.01 % (0.1 mg/gram) vaginal cream Use small pea sized amount at vaginal opening twice a week. triamcinolone acetonide (KENALOG) 0.1 % cream Apply 1 application to affected area two times a day. pseudoephedrine (SUDAFED) 30 mg tablet Take 1 tablet by mouth every 4 hours as needed. pantoprazole DR (PROTONIX) 40 mg tablet Take 1 tablet by mouth once daily. sucralfate (CARAFATE) 1 gram tablet Take 1 tablet by mouth before meals and at bedtime. tiZANidine (ZANAFLEX) 4 mg tablet Take 1 tablet by mouth every 8 hours as needed (muscle spasms). calcium carbonate/vitamin d3(CALCIUM 500 WITH VITAMIN D 500 MG-125 UNIT TAB) Take one(1) tablet twice daily. No current facility-administered medications for this visit. FAMILY HISTORY Problem Relation Age of Onset Cancer Mother ovarian, had negative genetic testing Coronary Artery Disease Father after 55 Hypertension Father Diabetes Father other (hysterecomy) Sister cervical cancer cells other (Precancerous cervix cells) Sister cancerous cells in uterus per Sharon Ellis CNP other (hysterectomy) Sister half-sister; unknown etiology Diabetes Maternal Grandmother Cancer Paternal Grandmother possibly ovarian or cervical other (abnormal pap) Daughter other (Precancerous cervix cells) Other Niece (hysterectomy) Social History Tobacco Use Smoking status: Never Smokeless tobacco: Never Vaping Use Vaping status: Never Used Substance Use Topics Alcohol use: No Drug use: No EXAM: BP 158/88 Pulse (!) 58 Resp 16 LMP 09/17/2008 SpO2 98% 150/88 PHYSICAL EXAM: General Appearance: Well appearing, alert, in no acute distress, well-hydrated, well nourished.. Skin: Skin color, texture, turgor normal, no suspicious rashes or lesions. Head: Normocephalic, no masses, lesions, tenderness or abnormalities. Eyes: Anicteric sclera. Extraocular movements are intact. . Lungs: Lungs clear to auscultation. No wheezing, rhonchi, rales.. Heart: RRR without murmur, gallop, or rubs. No ectopy. Extremities: No deformities, edema, skin discoloration, clubbing or cyanosis. Good capillary refill. Neurologic: Gait normal. ASSESSMENT/PLAN: 1. Primary hypertension - ICD9: 401.9, ICD10: I10 (primary diagnosis) - Uncontrolled - Start lisinopril - Recommend home blood pressure monitoring, to bring results to next visit - Encouraged sodium restriction, DASH or Mediterranean diet - Recommend regular aerobic exercise - LISINOPRIL 10 MG TABLET Discussed potential side effects of ordered medications. Patient voices understanding. Recheck in 1 month. 2. Acute pain of right knee - ICD9: 719.46, ICD10: M25.561 Get xray. Follow-up pending results. - XR KNEE GENERAL 4V AP BOTH/PA BOTH/LAT/MERC RIGHT Discussed treatment plan and patient voices understanding. Patient's que (more content not included)... [facility] 02-22-2024 History of Present illness Narrative This is a 68 year old female who presents today with: Patient presents with: Recheck: BP check HISTORY OF PRESENT ILLNESS: Lucas Astudillo is a 68 year old female. Patient presents with: Recheck: BP check Pt presents today with complaint of elevated blood pressure. She is getting 137-152/80-95. She is not currently on medication for blood pressure. HTN: Patient is compliant with meds n/a. Monitors bp at home: Yes. Denies side effects: n/a. Chest pain: will feel an occ tightness that resolves if she takes a deep breath. Dyspnea: No. Edema: No. Palpitations: No. Syncope: No. Headache: slight now and then Dizziness: No. Pain in the right knee. Medial aspect. Refers that she has a hx of arthritis, however has been having worsening pain in the medial aspect. No injury. Using voltaren gel, which temporarily helps. Cannot take nsaids. PAST MEDICAL HISTORY: PAST MEDICAL HISTORY Diagnosis Date Acute gastritis without mention of hemorrhage Allergic rhinitis due to other allergen Arthritis Cancer (HCC) Deviated septum Dyskinesia of esophagus GERD (gastroesophageal reflux disease) 07/25/2013 Internal hemorrhoids without mention of complication Tinnitus PAST SURGICAL HISTORY Procedure Laterality Date CARPAL TUNNEL 03/09/2009 Rt wrist COLONOSCOPY FLX DX W/COLLJ SPEC WHEN PFRMD 09/06/2007 COLONOSCOPY FLX DX W/COLLJ SPEC WHEN PFRMD 10/05/2017 Colonoscopy EGD 10/20/2022 EGD TRANSORAL BIOPSY SINGLE/MULTIPLE 09/06/2007 ESOPHAGOGASTRODUODENOSCOPY TRANSORAL DIAGNOSTIC 10/05/2017 EGD LIG/TRNSXJ FLP TUBE ABDL/VAG APPR UNI/BI Tubal ligation NASAL ENDOSCOPY DIAG UNILBILAT 01/20/2015 SKIN BIOPSY HX ALLERGIES Adhesive Tape-Silicones and Poison Akanksha MEDICATIONS Current Outpatient Medications Medication Sig clobetasol (TEMOVATE) 0.05 % cream Apply to affected area 2x/day for 2 weeks, then 1x/day for a week, than 1-3x/week for maintenance. estradiol (ESTRACE) 0.01 % (0.1 mg/gram) vaginal cream Use small pea sized amount at vaginal opening twice a week. triamcinolone acetonide (KENALOG) 0.1 % cream Apply 1 application to affected area two times a day. pseudoephedrine (SUDAFED) 30 mg tablet Take 1 tablet by mouth every 4 hours as needed. pantoprazole DR (PROTONIX) 40 mg tablet Take 1 tablet by mouth once daily. sucralfate (CARAFATE) 1 gram tablet Take 1 tablet by mouth before meals and at bedtime. tiZANidine (ZANAFLEX) 4 mg tablet Take 1 tablet by mouth every 8 hours as needed (muscle spasms). calcium carbonate/vitamin d3(CALCIUM 500 WITH VITAMIN D 500 MG-125 UNIT TAB) Take one(1) tablet twice daily. No current facility-administered medications for this visit. FAMILY HISTORY Problem Relation Age of Onset Cancer Mother ovarian, had negative genetic testing Coronary Artery Disease Father after 55 Hypertension Father Diabetes Father other (hysterecomy) Sister cervical cancer cells other (Precancerous cervix cells) Sister cancerous cells in uterus per Sharon Ellis CNP other (hysterectomy) Sister half-sister; unknown etiology Diabetes Maternal Grandmother Cancer Paternal Grandmother possibly ovarian or cervical other (abnormal pap) Daughter other (Precancerous cervix cells) Other Niece (hysterectomy) Social History Tobacco Use Smoking status: Never Smokeless tobacco: Never Vaping Use Vaping status: Never Used Substance Use Topics Alcohol use: No Drug use: No EXAM: BP 158/88 Pulse (!) 58 Resp 16 LMP 09/17/2008 SpO2 98% 150/88 PHYSICAL EXAM: General Appearance: Well appearing, alert, in no acute distress, well-hydrated, well nourished.. Skin: Skin color, texture, turgor normal, no suspicious rashes or lesions. Head: Normocephalic, no masses, lesions, tenderness or abnormalities. Eyes: Anicteric sclera. Extraocular movements are intact. . Lungs: Lungs clear to auscultation. No wheezing, rhonchi, rales.. Heart: RRR without murmur, gallop, or rubs. No ectopy. Extremities: No deformities, edema, skin discoloration, clubbing or cyanosis. Good capillary refill. Neurologic: Gait normal. ASSESSMENT/PLAN: 1. Primary hypertension - ICD9: 401.9, ICD10: I10 (primary diagnosis) - Uncontrolled - Start lisinopril - Recommend home blood pressure monitoring, to bring results to next visit - Encouraged sodium restriction, DASH or Mediterranean diet - Recommend regular aerobic exercise - LISINOPRIL 10 MG TABLET Discussed potential side effects of ordered medications. Patient voices understanding. Recheck in 1 month. 2. Acute pain of right knee - ICD9: 719.46, ICD10: M25.561 Get xray. Follow-up pending results. - XR KNEE GENERAL 4V AP BOTH/PA BOTH/LAT/MERC RIGHT Discussed treatment plan and patient voices understanding. Patient's questions answered appropriately. Medications and potential side effects were discussed and patient voices understanding. Return to the office as scheduled or as needed for worsening/no improvement. Lola Farris APRN.CNP documented in this encounter [facility] 01-11-2024 Note Addended by: TIFFANI GANT on: 01/11/2024 08:01 AM Modules accepted: Orders [facility] 01-11-2024 Miscellaneous Notes Addended by: TIFFANI GANT on: 01/11/2024 08:01 AM Modules accepted: Orders documented in this encounter [facility] 01-07-2024 History of Present illness Narrative Radiology Service Progress Note PATIENT NAME: Lucas Astudillo DATE OF SERVICE: January 07, 2024 TIME: 10:12 AM PATIENT IDENTITY VERIFICATION COMPLETED USING TWO (2) IDENTIFIERS: Name and Date of confirmed by patient verbally. FALL SCREENING: Has the patient had 2 falls in the last year or 1 fall with injury or currently using an Ambulatory Assistive Device (Walker, Cane, Wheelchair, Crutches, etc.)? No PATIENT GENDER DATA: Female. status: : No status: NO. PATIENT RELEVANT IMPLANT DATA REVIEWED: Not Applicable PATIENT PRESENTS WITH AN IMPLANTABLE OR ATTACHED EQUIPMENT VALIDATION SPECIALIST: No RADIOLOGY DEPARTMENT: Mammography PERIPHERAL IV DATA: Not applicable SIGNED BY: Brendan Zapata January 07, 2024 10:12 AM documented in this encounter [facility] 01-07-2024 Note HNO ID: [id number] Author: HAFSA ALVARADO Mammo Tech Service: ? Author Type: Induction Coordination Engineer Type: Progress Notes Filed: 01/07/2024 11:07 Note Text: Radiology Service Progress Note PATIENT NAME: Lucas Astudillo DATE OF SERVICE: January 07, 2024 TIME: 10:12 AM PATIENT IDENTITY VERIFICATION COMPLETED USING TWO (2) IDENTIFIERS: Name and Date of confirmed by patient verbally. FALL SCREENING: Has the patient had 2 falls in the last year or 1 fall with injury or currently using an Ambulatory Assistive Device (Walker, Cane, Wheelchair, Crutches, etc.)? No PATIENT GENDER DATA: Female. status: : No status: NO. PATIENT RELEVANT IMPLANT DATA REVIEWED: Not Applicable PATIENT PRESENTS WITH AN IMPLANTABLE OR ATTACHED EQUIPMENT VALIDATION SPECIALIST: No RADIOLOGY DEPARTMENT: Mammography PERIPHERAL IV DATA: Not applicable SIGNED BY: Brendan Zapata January 07, 2024 10:12 AM [facility] 01-07-2024 History of Present illness Narrative Patient declined research advisor. Lucas is a 68 year old who presents for an annual gynecologic exam without complaints. Family hx of cervical cancer would like a pap today Postmenopausal: Yes HRT use: Yes, Estradiol Vaginal Cream How long: approx 3 yrs. Last Pap: 11/02/2019 normal HPV: 11/02/2019 negative History of abnormal pap: No Last mammogram: 2023 today History of abnormal mammogram: No Sexually active: Yes Pain with intercourse: a little Postcoital bleeding: No OB History T0 L1 SAB1 IAB0 Ectopic1 Multiple0 Live Births0 Comment: 1 section No surgery for ectopic Online Facilitator History LMP: 09/17/2008, Postmenopausal Age at Menarche: Age at First : Age at Menopause: Online Facilitator History Comments: Sexual Activity: Yes; Male; bilateral tubal occlusion Contraception: No contraception data on record PAST MEDICAL HISTORY Diagnosis Date Acute gastritis without mention of hemorrhage Allergic rhinitis due to other allergen Arthritis Cancer (HCC) Deviated septum Dyskinesia of esophagus GERD (gastroesophageal reflux disease) 07/25/2013 Internal hemorrhoids without mention of complication Tinnitus PAST SURGICAL HISTORY Procedure Laterality Date CARPAL TUNNEL 03/09/2009 Rt wrist COLONOSCOPY FLX DX W/COLLJ SPEC WHEN PFRMD 09/06/2007 COLONOSCOPY FLX DX W/COLLJ SPEC WHEN PFRMD 10/05/2017 Colonoscopy EGD 10/20/2022 EGD TRANSORAL BIOPSY SINGLE/MULTIPLE 09/06/2007 ESOPHAGOGASTRODUODENOSCOPY TRANSORAL DIAGNOSTIC 10/05/2017 EGD LIG/TRNSXJ FLP TUBE ABDL/VAG APPR UNI/BI Tubal ligation NASAL ENDOSCOPY DIAG UNILBILAT 01/20/2015 SKIN BIOPSY HX FAMILY HISTORY Problem Relation Age of Onset Cancer Mother ovarian, had negative genetic testing Coronary Artery Disease Father after 55 Hypertension Father Diabetes Father other (hysterecomy) Sister cervical cancer cells other (Precancerous cervix cells) Sister cancerous cells in uterus per Sharon Ellis CNP other (hysterectomy) Sister half-sister; unknown etiology Diabetes Maternal Grandmother Cancer Paternal Grandmother possibly ovarian or cervical other (abnormal pap) Daughter other (Precancerous cervix cells) Other Niece (hysterectomy) SOCIAL HISTORY Social History Tobacco Use Smoking status: Never Smokeless tobacco: Never Vaping Use Vaping status: Never Used Substance Use Topics Alcohol use: No Drug use: No REVIEW OF SYSTEMS Abdomen: No abdominal pain, nausea, vomiting, diarrhea, or constipation. No bloating, early satiety, indigestion, or increased flatulence. Bladder: No dysuria, gross hematuria, urinary frequency, urinary urgency, +stress incontinence Breast: No breast lumps, nipple d/c, overlying skin changes, redness or skin retraction Allergies and current medication updated:Yes SENSITIVE EXAM: The sensitive examination was discussed with the Patient or Patient's Authorized Fabric And Accessories Estimator. As applicable, any other physician, advance practice provider, medical student, or other health professional student that will be observing or involved in the sensitive examination for educational or training purposes was discussed with the Patient or Authorized Fabric And Accessories Estimator. The Patient or Authorized Fabric And Accessories Estimator has agreed to proceed with the sensitive examination. (Sensitive examination includes inspection and/or palpation of the breasts, pelvis, prostate and anorectal regions). EXAM: BP 122/70 Resp 16 Ht 5' 6.024 (1.68m) Wt 190 lb 6.4 oz (86.4kg) LMP 09/17/2008 BMI 30.71 kg/(m^2). GENERAL: pleasant, female in no apparent distress HEENT: Normocephalic, atraumatic, mucus membranes moist, and no lesions NECK: Supple, full range of motion, no adenopathy, and thyroid normal DERMATOLOGY: Normal, without lesions, non-icteric, and non-hirsute BREAST: soft, non-tender, symmetric, no dominant mass, normal nipple-areolar complex, no lymphadenopathy, and no nipple discharge CHEST: Normal inspiratory effort ABDOMEN: soft, non-tender, and no masses PELVIC: external genitalia normal, normal Bartholin's glands, urethra, [place]'s glands, no vulvar lesions, no cervical lesions, good vaginal support, physiologic discharge present, normal appearing perineal body and perianal region BIMANUAL: uterus normal size, shape and consistency, no adnexal masses, and non-tender RECTOVAGINAL: deferred. NEURO: alert and oriented x3,exam grossly non-focal EXTREMITIES: normal ASSESSMENT/PLAN: 1) Health maintenance: Pap done with HPV. Mammogram ordered Mammogram up to date Nutrition, exercise and routine health maintenance exams reviewed. Calcium/Vitamin D supplementation information provided. Colon cancer screening: up to date with screening BMD: up to date 2) Follow up one year or sooner as needed Tiffani Gant APRN.JAIRON documented in this encounter [facility] 01-07-2024 Note HNO ID: [id number] Author: TIFFANI GANT APRN.CNP Service: ? Author Type: Nurse Practitioner Type: Progress Notes Filed: 01/07/2024 11:40 Note Text: Patient declined research advisor. Lucas is a 68 year old who presents for an annual gynecologic exam without complaints. Family hx of cervical cancer would like a pap today Postmenopausal: Yes HRT use: Yes, Estradiol Vaginal Cream How long: approx 3 yrs. Last Pap: 11/02/2019 normal HPV: 11/02/2019 negative History of abnormal pap: No Last mammogram: 2023 today History of abnormal mammogram: No Sexually active: Yes Pain with intercourse: a little Postcoital bleeding: No OB History T0 L1 SAB1 IAB0 Ectopic1 Multiple0 Live Births0 Comment: 1 section No surgery for ectopic Online Facilitator History LMP: 09/17/2008, Postmenopausal Age at Menarche: Age at First : Age at Menopause: Online Facilitator History Comments: Sexual Activity: Yes; Male; bilateral tubal occlusion Contraception: No contraception data on record PAST MEDICAL HISTORY Diagnosis Date Acute gastritis without mention of hemorrhage Allergic rhinitis due to other allergen Arthritis Cancer (HCC) Deviated septum Dyskinesia of esophagus GERD (gastroesophageal reflux disease) 07/25/2013 Internal hemorrhoids without mention of complication Tinnitus PAST SURGICAL HISTORY Procedure Laterality Date CARPAL TUNNEL 03/09/2009 Rt wrist COLONOSCOPY FLX DX W/COLLJ SPEC WHEN PFRMD 09/06/2007 COLONOSCOPY FLX DX W/COLLJ SPEC WHEN PFRMD 10/05/2017 Colonoscopy EGD 10/20/2022 EGD TRANSORAL BIOPSY SINGLE/MULTIPLE 09/06/2007 ESOPHAGOGASTRODUODENOSCOPY TRANSORAL DIAGNOSTIC 10/05/2017 EGD LIG/TRNSXJ FLP TUBE ABDL/VAG APPR UNI/BI Tubal ligation NASAL ENDOSCOPY DIAG UNILBILAT 01/20/2015 SKIN BIOPSY HX FAMILY HISTORY Problem Relation Age of Onset Cancer Mother ovarian, had negative genetic testing Coronary Artery Disease Father after 55 Hypertension Father Diabetes Father other (hysterecomy) Sister cervical cancer cells other (Precancerous cervix cells) Sister cancerous cells in uterus per Sharon Ellis, JAIRON other (hysterectomy) Sister half-sister; unknown etiology Diabetes Maternal Grandmother Cancer Paternal Grandmother possibly ovarian or cervical other (abnormal pap) Daughter other (Precancerous cervix cells) Other Niece (hysterectomy) SOCIAL HISTORY Social History Tobacco Use Smoking status: Never Smokeless tobacco: Never Vaping Use Vaping status: Never Used Substance Use Topics Alcohol use: No Drug use: No REVIEW OF SYSTEMS Abdomen: No abdominal pain, nausea, vomiting, diarrhea, or constipation. No bloating, early satiety, indigestion, or increased flatulence. Bladder: No dysuria, gross hematuria, urinary frequency, urinary urgency, +stress incontinence Breast: No breast lumps, nipple d/c, overlying skin changes, redness or skin retraction Allergies and current medication updated:Yes SENSITIVE EXAM: The sensitive examination was discussed with the Patient or Patient's Authorized Fabric And Accessories Estimator. As applicable, any other physician, advance practice provider, medical student, or other health professional student that will be observing or involved in the sensitive examination for educational or training purposes was discussed with the Patient or Authorized Fabric And Accessories Estimator. The Patient or Authorized Fabric And Accessories Estimator has agreed to proceed with the sensitive examination. (Sensitive examination includes inspection and/or palpation of the breasts, pelvis, prostate and anorectal regions). EXAM: BP 122/70 Resp 16 Ht 5' 6.024 (1.68m) Wt 190 lb 6.4 oz (86.4kg) LMP 09/17/2008 BMI 30.71 kg/(m2). GENERAL: pleasant, female in no apparent distress HEENT: Normocephalic, atraumatic, mucus membranes moist, and no lesions NECK: Supple, full range of motion, no adenopathy, and thyroid normal DERMATOLOGY: Normal, without lesions, non-icteric, and non-hirsute BREAST: soft, non-tender, symmetric, no dominant mass, normal nipple-areolar complex, no lymphadenopathy, and no nipple discharge CHEST: Normal inspiratory effort ABDOMEN: soft, non-tender, and no masses PELVIC: external genitalia normal, normal Bartholin's glands, urethra, [place]'s glands, no vulvar lesions, no cervical lesions, good vaginal support, physiologic discharge present, normal appearing perineal body and perianal region BIMANUAL: uterus normal size, shape and consistency, no adnexal masses, and non-tender RECTOVAGINAL: deferred. NEURO: alert and oriented x3,exam grossly non-focal EXTREMITIES: normal ASSESSMENT/PLAN: 1) Health maintenance: Pap done with HPV. Mammogram ordered Mammogram up to date Nutrition, exercise and routine health maintenance exams reviewed. Calcium/Vitamin D supplementation information provided. Colon cancer screening: up to date with screening BMD: up to date 2) Follow up one year (more content not included)... [facility] 12-24-2023 Instructions Natalia Monge APRN.CNP - 12/24/2023 2:23 PM EDT 1) No change in medications 2) See Dr. Peralta in September as scheduled documented in this encounter [facility] 12-24-2023 Note HNO ID: [id number] Author: NATALIA MONGE APRN.CNP Service: ? Author Type: Clinical Nurse Specialist Type: Progress Notes Filed: 12/24/2023 14:23 Note Text: This is a 68 year old female who presents today with: Patient presents with: Hypertension: Blood pressure follow up HISTORY OF PRESENT ILLNESS: Lucas Astudillo is a 68 year old female. Patient presents with: Hypertension: Blood pressure follow up HTN: Patient is compliant with meds No Monitors bp at home: Yes. Denies side effects: No. Chest pain: No. Dyspnea: Sometimes Edema: No. Palpitations: Occ. Upper abdominal girgling. Syncope: No. Headache: Yes. Frontal Dizziness: No. PAST MEDICAL HISTORY: PAST MEDICAL HISTORY Diagnosis Date Acute gastritis without mention of hemorrhage Allergic rhinitis due to other allergen Arthritis Cancer (HCC) Deviated septum Dyskinesia of esophagus GERD (gastroesophageal reflux disease) 07/25/2013 Internal hemorrhoids without mention of complication Tinnitus PAST SURGICAL HISTORY Procedure Laterality Date CARPAL TUNNEL 03/09/2009 Rt wrist COLONOSCOPY FLX DX W/COLLJ SPEC WHEN PFRMD 09/06/2007 COLONOSCOPY FLX DX W/COLLJ SPEC WHEN PFRMD 10/05/2017 Colonoscopy EGD 10/20/2022 EGD TRANSORAL BIOPSY SINGLE/MULTIPLE 09/06/2007 ESOPHAGOGASTRODUODENOSCOPY TRANSORAL DIAGNOSTIC 10/05/2017 EGD LIG/TRNSXJ FLP TUBE ABDL/VAG APPR UNI/BI Tubal ligation NASAL ENDOSCOPY DIAG UNILBILAT 01/20/2015 SKIN BIOPSY HX ALLERGIES Adhesive Tape-Silicones and Poison Akanksha MEDICATIONS Current Outpatient Medications Medication Sig pantoprazole DR (PROTONIX) 40 mg tablet Take 1 tablet by mouth once daily. triamcinolone acetonide (KENALOG) 0.1 % cream Apply 1 application to affected area two times a day. sucralfate (CARAFATE) 1 gram tablet Take 1 tablet by mouth before meals and at bedtime. tiZANidine (ZANAFLEX) 4 mg tablet Take 1 tablet by mouth every 8 hours as needed (muscle spasms). pseudoephedrine (SUDAFED) 30 mg tablet Take 1 tablet by mouth every 4 hours as needed. (Patient taking differently: Take 15 mg by mouth every 4 hours as needed.) estradiol (ESTRACE) 0.01 % (0.1 mg/gram) vaginal cream Use small pea sized amount at vaginal opening twice a week. calcium carbonate/vitamin d3(CALCIUM 500 WITH VITAMIN D 500 MG-125 UNIT TAB) Take one(1) tablet twice daily. No current facility-administered medications for this visit. FAMILY HISTORY Problem Relation Age of Onset Cancer Mother ovarian, had negative genetic testing Coronary Artery Disease Father after 55 Hypertension Father Diabetes Father other (hysterecomy) Sister cervical cancer cells other (Precancerous cervix cells) Sister cancerous cells in uterus per Sharon Ellis CNP other (hysterectomy) Sister half-sister; unknown etiology Diabetes Maternal Grandmother Cancer Paternal Grandmother possibly ovarian or cervical other (abnormal pap) Daughter other (Precancerous cervix cells) Other Niece (hysterectomy) Social History Tobacco Use Smoking status: Never Smokeless tobacco: Never Vaping Use Vaping status: Never Used Substance Use Topics Alcohol use: No Drug use: No 120/80 sitting, 128/80 standing EXAM: BP 130/82 Pulse 68 Resp 16 Wt 88.9 kg (195 lb 15.8 oz) LMP 09/17/2008 SpO2 98% BMI 31.63 kg/m? PHYSICAL EXAM: Physical Exam Vitals reviewed. Constitutional: Appearance: Normal appearance. HENT: Head: Normocephalic. Cardiovascular: Rate and Rhythm: Normal rate and regular rhythm. Pulses: Normal pulses. Heart sounds: Normal heart sounds. Pulmonary: Effort: Pulmonary effort is normal. Breath sounds: Normal breath sounds. Abdominal: General: Bowel sounds are normal. Palpations: Abdomen is soft. Musculoskeletal: General: Normal range of motion. Skin: General: Skin is warm and dry. Neurological: General: No focal deficit present. Mental Status: She is alert and oriented to person, place, and time. Psychiatric: Mood and Affect: Mood normal. Behavior: Behavior normal. LABS: ASSESSMENT/PLAN: 1. Sinus congestion - ICD9: 478.19, ICD10: R09.81 (primary diagnosis) Discussed use of coricidin HB - PSEUDOEPHEDRINE 30 MG TABLET- hasn't taken it for a year 2. Elevated blood pressure reading without diagnosis of hypertension - ICD9: 796.2, ICD10: R03.0 - Encouraged dietary sodium restriction/DASH diet - Recommended regular aerobic exercise. - Recommend home blood pressure monitoring, to bring results in on next visit - Goal of BP <130/80 - Well controlled today Discussed treatment plan and patient voices understanding. Patient's questions answered appropriately. Medications and potential side effects were discussed and patient voices understanding. Return to the office as scheduled or as needed for worsening/no improvement. Natalia Monge APRN.[facility] 12-24-2023 History of Present illness Narrative This is a 68 year old female who presents today with: Patient presents with: Hypertension: Blood pressure follow up HISTORY OF PRESENT ILLNESS: Lucas Astudillo is a 68 year old female. Patient presents with: Hypertension: Blood pressure follow up HTN: Patient is compliant with meds No Monitors bp at home: Yes. Denies side effects: No. Chest pain: No. Dyspnea: Sometimes Edema: No. Palpitations: Occ. Upper abdominal girgling. Syncope: No. Headache: Yes. Frontal Dizziness: No. PAST MEDICAL HISTORY: PAST MEDICAL HISTORY Diagnosis Date Acute gastritis without mention of hemorrhage Allergic rhinitis due to other allergen Arthritis Cancer (HCC) Deviated septum Dyskinesia of esophagus GERD (gastroesophageal reflux disease) 07/25/2013 Internal hemorrhoids without mention of complication Tinnitus PAST SURGICAL HISTORY Procedure Laterality Date CARPAL TUNNEL 03/09/2009 Rt wrist COLONOSCOPY FLX DX W/COLLJ SPEC WHEN PFRMD 09/06/2007 COLONOSCOPY FLX DX W/COLLJ SPEC WHEN PFRMD 10/05/2017 Colonoscopy EGD 10/20/2022 EGD TRANSORAL BIOPSY SINGLE/MULTIPLE 09/06/2007 ESOPHAGOGASTRODUODENOSCOPY TRANSORAL DIAGNOSTIC 10/05/2017 EGD LIG/TRNSXJ FLP TUBE ABDL/VAG APPR UNI/BI Tubal ligation NASAL ENDOSCOPY DIAG UNILBILAT 01/20/2015 SKIN BIOPSY HX ALLERGIES Adhesive Tape-Silicones and Poison Akanksha MEDICATIONS Current Outpatient Medications Medication Sig pantoprazole DR (PROTONIX) 40 mg tablet Take 1 tablet by mouth once daily. triamcinolone acetonide (KENALOG) 0.1 % cream Apply 1 application to affected area two times a day. sucralfate (CARAFATE) 1 gram tablet Take 1 tablet by mouth before meals and at bedtime. tiZANidine (ZANAFLEX) 4 mg tablet Take 1 tablet by mouth every 8 hours as needed (muscle spasms). pseudoephedrine (SUDAFED) 30 mg tablet Take 1 tablet by mouth every 4 hours as needed. (Patient taking differently: Take 15 mg by mouth every 4 hours as needed.) estradiol (ESTRACE) 0.01 % (0.1 mg/gram) vaginal cream Use small pea sized amount at vaginal opening twice a week. calcium carbonate/vitamin d3(CALCIUM 500 WITH VITAMIN D 500 MG-125 UNIT TAB) Take one(1) tablet twice daily. No current facility-administered medications for this visit. FAMILY HISTORY Problem Relation Age of Onset Cancer Mother ovarian, had negative genetic testing Coronary Artery Disease Father after 55 Hypertension Father Diabetes Father other (hysterecomy) Sister cervical cancer cells other (Precancerous cervix cells) Sister cancerous cells in uterus per Sharon Ellis CNP other (hysterectomy) Sister half-sister; unknown etiology Diabetes Maternal Grandmother Cancer Paternal Grandmother possibly ovarian or cervical other (abnormal pap) Daughter other (Precancerous cervix cells) Other Niece (hysterectomy) Social History Tobacco Use Smoking status: Never Smokeless tobacco: Never Vaping Use Vaping status: Never Used Substance Use Topics Alcohol use: No Drug use: No 120/80 sitting, 128/80 standing EXAM: BP 130/82 Pulse 68 Resp 16 Wt 88.9 kg (195 lb 15.8 oz) LMP 09/17/2008 SpO2 98% BMI 31.63 kg/m PHYSICAL EXAM: Physical Exam Vitals reviewed. Constitutional: Appearance: Normal appearance. HENT: Head: Normocephalic. Cardiovascular: Rate and Rhythm: Normal rate and regular rhythm. Pulses: Normal pulses. Heart sounds: Normal heart sounds. Pulmonary: Effort: Pulmonary effort is normal. Breath sounds: Normal breath sounds. Abdominal: General: Bowel sounds are normal. Palpations: Abdomen is soft. Musculoskeletal: General: Normal range of motion. Skin: General: Skin is warm and dry. Neurological: General: No focal deficit present. Mental Status: She is alert and oriented to person, place, and time. Psychiatric: Mood and Affect: Mood normal. Behavior: Behavior normal. LABS: ASSESSMENT/PLAN: 1. Sinus congestion - ICD9: 478.19, ICD10: R09.81 (primary diagnosis) Discussed use of coricidin HB - PSEUDOEPHEDRINE 30 MG TABLET- hasn't taken it for a year 2. Elevated blood pressure reading without diagnosis of hypertension - ICD9: 796.2, ICD10: R03.0 - Encouraged dietary sodium restriction/DASH diet - Recommended regular aerobic exercise. - Recommend home blood pressure monitoring, to bring results in on next visit - Goal of BP <130/80 - Well controlled today Discussed treatment plan and patient voices understanding. Patient's questions answered appropriately. Medications and potential side effects were discussed and patient voices understanding. Return to the office as scheduled or as needed for worsening/no improvement. Natalia Monge APRN.JAIRON documented in this encounter [facility] 12-24-2023 Nurse Note 12/24/2023: Home BP Cuff Validated. Home BP: 125/83 P69 Office BP: 130/82 P:68 Celia Rider MA December 24, 2023 2:11 PM [facility] 12-24-2023 Nurse Note 12/24/2023: Home BP Cuff Validated. Home BP: 125/83 P69 Office BP: 130/82 P:68 Celia Rider MA December 24, 2023 2:11 PM documented in this encounter [facility] 12-22-2023 Telephone encounter Note Pt called in and reports she had been to the dentist and another appointment and her BP had been elevated and she wanted to get in to have her BP checked. She states she hasn't been checking it at home like she should. Pt is going to start checking it and bring log in for appointment, along with cuff to be checked. [facility] 12-22-2023 Miscellaneous Notes Pt called in and reports she had been to the dentist and another appointment and her BP had been elevated and she wanted to get in to have her BP checked. She states she hasn't been checking it at home like she should. Pt is going to start checking it and bring log in for appointment, along with cuff to be checked. documented in this encounter [facility] 12-14-2023 Telephone encounter Note Prescription Refill Information The patient has been identified by name and date of : Yes Caregiver verified no other encounters exist for this prescription request: Yes Caregiver confirmed with patient/requestor that no other refills are due, in the near future, with this provider at this time: Yes The last office visit in the department: 12/03/23 Does the patient have a future office visit with this provider/department: Yes, 10/26/24 Requested Prescriptions Pending Prescriptions Disp Refills pantoprazole DR (PROTONIX) 40 mg tablet 90 tablet 3 Sig: Take 1 tablet by mouth once daily. Jan Arrieta LPN December 14, 2023 6:10 PM [facility] 12-14-2023 Miscellaneous Notes Prescription Refill Information The patient has been identified by name and date of : Yes Caregiver verified no other encounters exist for this prescription request: Yes Caregiver confirmed with patient/requestor that no other refills are due, in the near future, with this provider at this time: Yes The last office visit in the department: 12/03/23 Does the patient have a future office visit with this provider/department: Yes, 10/26/24 Requested Prescriptions Pending Prescriptions Disp Refills pantoprazole DR (PROTONIX) 40 mg tablet 90 tablet 3 Sig: Take 1 tablet by mouth once daily. Jan Arrieta LPN December 14, 2023 6:10 PM documented in this encounter [facility] 12-03-2023 Note HNO ID: [id number] Author: MAYRA LAN PA-C Service: ? Author Type: Physician [employer] Container Straightener Type: Progress Notes Filed: 12/03/2023 10:02 Note Text: Chief Complaint Patient presents with: Derm Problem: rash HPI Lucas Astudillo is a 68 year old female who presents here today for Above Complaints.. Patient reports prurtic rash on b/l arms and right side chest wall. Was outside a few days prior to rash appearing. No pain but very pruritic. Has tried OTC. Past medical history, appointments, medications, allergies reviewed. Previous Medical History PAST MEDICAL HISTORY No date: Acute gastritis without mention of hemorrhage No date: Allergic rhinitis due to other allergen No date: Arthritis No date: Cancer (HCC) No date: Deviated septum No date: Dyskinesia of esophagus 07/25/2013: GERD (gastroesophageal reflux disease) No date: Internal hemorrhoids without mention of complication No date: Tinnitus Previous Surgical History PAST SURGICAL HISTORY 03/09/2009: CARPAL TUNNEL Comment: Rt wrist 09/06/2007: COLONOSCOPY FLX DX W/COLLJ SPEC WHEN PFRMD 10/05/2017: COLONOSCOPY FLX DX W/COLLJ SPEC WHEN PFRMD Comment: Colonoscopy 10/20/2022: EGD 09/06/2007: EGD TRANSORAL BIOPSY SINGLE/MULTIPLE 10/05/2017: ESOPHAGOGASTRODUODENOSCOPY TRANSORAL DIAGNOSTIC Comment: EGD No date: LIG/TRNSXJ FLP TUBE ABDL/VAG APPR UNI/BI Comment: Tubal ligation 01/20/2015: NASAL ENDOSCOPY DIAG UNILBILAT No date: SKIN BIOPSY HX Family History FAMILY HISTORY Problem Relation Age of Onset Cancer Mother ovarian, had negative genetic testing Coronary Artery Disease Father after 55 Hypertension Father Diabetes Father other (hysterecomy) Sister cervical cancer cells other (Precancerous cervix cells) Sister cancerous cells in uterus per Sharon Ellis CNP other (hysterectomy) Sister half-sister; unknown etiology Diabetes Maternal Grandmother Cancer Paternal Grandmother possibly ovarian or cervical other (abnormal pap) Daughter other (Precancerous cervix cells) Other Niece (hysterectomy) Patient Allergies ALLERGIES Allergen Reactions Adhesive Tape-Silic* Rash Per patient developed extensive rash from adhesive monitor sticker after endoscopy Poison Akanksha Current Medications Current Outpatient Medications on File Prior to Visit Medication Sig sucralfate (CARAFATE) 1 gram tablet Take 1 tablet by mouth before meals and at bedtime. tiZANidine (ZANAFLEX) 4 mg tablet Take 1 tablet by mouth every 8 hours as needed (muscle spasms). pantoprazole DR (PROTONIX) 40 mg tablet Take 1 tablet by mouth once daily. pseudoephedrine (SUDAFED) 30 mg tablet Take 1 tablet by mouth every 4 hours as needed. (Patient taking differently: Take 15 mg by mouth every 4 hours as needed.) estradiol (ESTRACE) 0.01 % (0.1 mg/gram) vaginal cream Use small pea sized amount at vaginal opening twice a week. calcium carbonate/vitamin d3(CALCIUM 500 WITH VITAMIN D 500 MG-125 UNIT TAB) Take one(1) tablet twice daily. No current facility-administered medications on file prior to visit. Social History Social History Tobacco Use Smoking status: Never Smokeless tobacco: Never Vaping Use Vaping status: Never Used Substance Use Topics Alcohol use: No Drug use: No Review of Symptoms REVIEW OF SYSTEMS See hpi EXAM: BP 136/86 (BP Site: Left Arm, BP Position: Sitting, BP Cuff Size: Large Adult) Pulse 64 Temp 36.5 ?C (97.7 ?F) Resp 16 Wt 87.5 kg (193 lb) LMP 09/17/2008 SpO2 97% BMI 31.15 kg/m? General Appearance: Well appearing, alert, in no acute distress, well-hydrated, well nourished.. Skin: raised, erythematous macular-papular rash noted. Located in antecubital space of left arm, posterior right upper arm and right side chest wall. Health Maintenance List Covid-19 Vaccine( season) due on 11/29/2023 Influenza Vaccine(1) due on 11/29/2023 Mammogram Screening due on 01/06/2024 Serum Creatinine due on 10/19/2024 Annual PCP Team Chronic Disease Visit due on 10/25/2024 Depression Screening due on 10/25/2024 Anxiety Screening due on 10/25/2024 Diabetes Screening due on 10/19/2026 Colorectal Cancer Screening due on 10/06/2027 DTaP,Tdap,Td Vaccine(3 - Td or Tdap) due on 10/06/2028 Lipid Screening due on 10/19/2028 Bone Density Screening Completed Advance Directive Discussion Completed RSV Vaccine Completed Hepatitis C Screening Completed Shingrix Vaccine Completed Pneumococcal Vaccine: 65+ Completed Cervical Cancer Screening Discontinued Data reviewed ASSESSMENT/PLAN: 1. Contact dermatitis, unspecified contact dermatitis type, unspecified trigger - ICD9: 692.9, ICD10: L25.9 Suspect contact dermatitis Advised to make sure all clothing and bedding be washed. Start steroid taper given continued new areas still appearing and topical steroid to use on current rash. If not improving, patient to contact office. Mayra Lan PA-C [facility] 12-03-2023 History of Present illness Narrative Chief Complaint Patient presents with: Derm Problem: rash HPI Lucas Astudillo is a 68 year old female who presents here today for Above Complaints.. Patient reports prurtic rash on b/l arms and right side chest wall. Was outside a few days prior to rash appearing. No pain but very pruritic. Has tried OTC. Past medical history, appointments, medications, allergies reviewed. Previous Medical History PAST MEDICAL HISTORY No date: Acute gastritis without mention of hemorrhage No date: Allergic rhinitis due to other allergen No date: Arthritis No date: Cancer (HCC) No date: Deviated septum No date: Dyskinesia of esophagus 07/25/2013: GERD (gastroesophageal reflux disease) No date: Internal hemorrhoids without mention of complication No date: Tinnitus Previous Surgical History PAST SURGICAL HISTORY 03/09/2009: CARPAL TUNNEL Comment: Rt wrist 09/06/2007: COLONOSCOPY FLX DX W/COLLJ SPEC WHEN PFRMD 10/05/2017: COLONOSCOPY FLX DX W/COLLJ SPEC WHEN PFRMD Comment: Colonoscopy 10/20/2022: EGD 09/06/2007: EGD TRANSORAL BIOPSY SINGLE/MULTIPLE 10/05/2017: ESOPHAGOGASTRODUODENOSCOPY TRANSORAL DIAGNOSTIC Comment: EGD No date: LIG/TRNSXJ FLP TUBE ABDL/VAG APPR UNI/BI Comment: Tubal ligation 01/20/2015: NASAL ENDOSCOPY DIAG UNILBILAT No date: SKIN BIOPSY HX Family History FAMILY HISTORY Problem Relation Age of Onset Cancer Mother ovarian, had negative genetic testing Coronary Artery Disease Father after 55 Hypertension Father Diabetes Father other (hysterecomy) Sister cervical cancer cells other (Precancerous cervix cells) Sister cancerous cells in uterus per Sharon Ellis CNP other (hysterectomy) Sister half-sister; unknown etiology Diabetes Maternal Grandmother Cancer Paternal Grandmother possibly ovarian or cervical other (abnormal pap) Daughter other (Precancerous cervix cells) Other Niece (hysterectomy) Patient Allergies ALLERGIES Allergen Reactions Adhesive Tape-Silic* Rash Per patient developed extensive rash from adhesive monitor sticker after endoscopy Poison Akanksha Current Medications Current Outpatient Medications on File Prior to Visit Medication Sig sucralfate (CARAFATE) 1 gram tablet Take 1 tablet by mouth before meals and at bedtime. tiZANidine (ZANAFLEX) 4 mg tablet Take 1 tablet by mouth every 8 hours as needed (muscle spasms). pantoprazole DR (PROTONIX) 40 mg tablet Take 1 tablet by mouth once daily. pseudoephedrine (SUDAFED) 30 mg tablet Take 1 tablet by mouth every 4 hours as needed. (Patient taking differently: Take 15 mg by mouth every 4 hours as needed.) estradiol (ESTRACE) 0.01 % (0.1 mg/gram) vaginal cream Use small pea sized amount at vaginal opening twice a week. calcium carbonate/vitamin d3(CALCIUM 500 WITH VITAMIN D 500 MG-125 UNIT TAB) Take one(1) tablet twice daily. No current facility-administered medications on file prior to visit. Social History Social History Tobacco Use Smoking status: Never Smokeless tobacco: Never Vaping Use Vaping status: Never Used Substance Use Topics Alcohol use: No Drug use: No Review of Symptoms REVIEW OF SYSTEMS See hpi EXAM: BP 136/86 (BP Site: Left Arm, BP Position: Sitting, BP Cuff Size: Large Adult) Pulse 64 Temp 36.5 C (97.7 F) Resp 16 Wt 87.5 kg (193 lb) LMP 09/17/2008 SpO2 97% BMI 31.15 kg/m General Appearance: Well appearing, alert, in no acute distress, well-hydrated, well nourished.. Skin: raised, erythematous macular-papular rash noted. Located in antecubital space of left arm, posterior right upper arm and right side chest wall. Health Maintenance List Covid-19 Vaccine( season) due on 11/29/2023 Influenza Vaccine(1) due on 11/29/2023 Mammogram Screening due on 01/06/2024 Serum Creatinine due on 10/19/2024 Annual PCP Team Chronic Disease Visit due on 10/25/2024 Depression Screening due on 10/25/2024 Anxiety Screening due on 10/25/2024 Diabetes Screening due on 10/19/2026 Colorectal Cancer Screening due on 10/06/2027 DTaP,Tdap,Td Vaccine(3 - Td or Tdap) due on 10/06/2028 Lipid Screening due on 10/19/2028 Bone Density Screening Completed Advance Directive Discussion Completed RSV Vaccine Completed Hepatitis C Screening Completed Shingrix Vaccine Completed Pneumococcal Vaccine: 65+ Completed Cervical Cancer Screening Discontinued Data reviewed ASSESSMENT/PLAN: 1. Contact dermatitis, unspecified contact dermatitis type, unspecified trigger - ICD9: 692.9, ICD10: L25.9 Suspect contact dermatitis Advised to make sure all clothing and bedding be washed. Start steroid taper given continued new areas still appearing and topical steroid to use on current rash. If not improving, patient to contact office. Mayra Lan PA-C documented in this encounter [facility] 11-24-2023 Note HNO ID: [id number] Author: REJI MORGAN PT Service: ? Author Type: Physical Therapist Type: Progress Notes Filed: 11/24/2023 11:22 Note Text: 11/24/2023 [facility] PHYSICAL THERAPY DISCONTINUANCE OF CARE Plan of Care Period: Start of Care Date: 05/04/23 Last Visit Date: 05/04/2023 Therapy Program: Patient did not return for follow up care as planned. Please refer to last visit note for interventions provided for this episode of care. Assessment: Unable to formally assess goal achievement. Reason for Discontinuation of Care: Patient has not returned to therapy or scheduled additional follow-up appointments. Reji Morgan, PT [facility] 10-26-2023 Note HNO ID: [id number] Author: EUGENIO PERALTA MD Service: ? Author Type: Physician Type: Progress Notes Filed: 10/26/2023 11:21 Note Text: Lucas Astudillo is a 68 year old female here for a Medicare wellness visit. Discussed labs. Medicare Health Risk Assessment General Health Very good Exercise: Minutes/Day 20 min Exercise: Days/Week 2 days Alcohol: Daily Use Never Alcohol: Drinks/Day Patient does not drink Alcohol: 6 or more drinks Never Feel off balance None. Concerns: Teeth/Dentures None Concerns: Sexual function none Troubled by feelings no Frequency: Eating healthy diet Good. ADLs requiring help Does own Adl's Safety precautions in home/vehicle Yes Smoke, vape, chews tobacco No Difficulty hearing Has chronic tinnitus. Has had ears tested. Difficulty seeing Wears glasses for distance. Current Providers Specialists: I have reviewed specialist-related care of the patient in the medical record. arpan Gibbons CUTTER WET MACHINE, [facility]. Medical/Family history review Reviewed and updated allergies. Opioid use review Opioid Medications (last 90 days) No data to display Anxiety/Depression screening PHQ-9 Score: 0. JONY-7 Score: 1 (Minimal Anxiety) Recommendation: no further intervention at this time Cognitive screening 5/5 Cognitive screening reviewed and No further action needed (score 3-5). Functional Observation Was the patient's Timed Up AND Go test unsteady or ? 12 seconds? No Advance Care Planning Surrogate decision maker and/or advance care plan documented is her surrogate. REVIEW OF SYSTEMS GENERAL: No weight loss, malaise or fevers HEENT: Negative for frequent or significant headaches, No changes in hearing or vision, no nose bleeds or other nasal problems RESPIRATORY: Negative for cough, hemoptysis, wheezing, COPD, dyspnea or shortness of breath CARDIOVASCULAR: Negative for chest pain, leg swelling, hypertension, CHF or palpitations GI: No nausea, vomiting, or diarrhea : No history of dysuria, frequency or incontinence CUTTER WET MACHINE: Negative for abnormal vaginal bleeding, abnormal vaginal discharge SKIN: Negative for lesions, rash, and itching HEMATOLOGY/LYMPHOLOGY: Negative for prolonged bleeding, bruising easily or swollen nodes Measurements BP 136/88 Pulse 63 Ht 167.6 cm (5' 6) Wt 88.5 kg (195 lb) LMP 09/17/2008 SpO2 98% BMI 31.47 kg/m? Vision Screening: Follows with optometry/ophthalmology PHYSICAL EXAM: GEN: pleasant, no acute distress, alert HEENT: PERRL, EOMI, MMM NECK: supple, no lymphadenopathy, no thyromegaly HEART: regular rate, regular rhythm, no murmurs LUNGS: clear to auscultation, no wheezes or crackles, no increased WOB ABD: soft, non-distended, no masses palpated, non-tender EXT: no clubbing, no cyanosis, no edema Assessment/Plan Medicare annual wellness visit, subsequent (Z00.00) - Counseled on healthy diet and regular exercise - Personalized prevention plan provided [facility] 10-26-2023 History of Present illness Narrative Images from the original note were not included. Lucas Astudillo is a 68 year old female here for a Medicare wellness visit. Discussed labs. Medicare Health Risk Assessment General Health Very good Exercise: Minutes/Day 20 min Exercise: Days/Week 2 days Alcohol: Daily Use Never Alcohol: Drinks/Day Patient does not drink Alcohol: 6 or more drinks Never Feel off balance None. Concerns: Teeth/Dentures None Concerns: Sexual function none Troubled by feelings no Frequency: Eating healthy diet Good. ADLs requiring help Does own Adl's Safety precautions in home/vehicle Yes Smoke, vape, chews tobacco No Difficulty hearing Has chronic tinnitus. Has had ears tested. Difficulty seeing Wears glasses for distance. Current Providers Specialists: I have reviewed specialist-related care of the patient in the medical record. Dr Kovacs, sees CUTTER WET MACHINE, [facility]. Medical/Family history review Reviewed and updated allergies. Opioid use review Opioid Medications (last 90 days) No data to display Anxiety/Depression screening PHQ-9 Score: 0. JONY-7 Score: 1 (Minimal Anxiety) Recommendation: no further intervention at this time Cognitive screening 5/5 Cognitive screening reviewed and No further action needed (score 3-5). Functional Observation Was the patient's Timed Up & Go test unsteady or ? 12 seconds? No Advance Care Planning Surrogate decision maker and/or advance care plan documented is her surrogate. REVIEW OF SYSTEMS GENERAL: No weight loss, malaise or fevers HEENT: Negative for frequent or significant headaches, No changes in hearing or vision, no nose bleeds or other nasal problems RESPIRATORY: Negative for cough, hemoptysis, wheezing, COPD, dyspnea or shortness of breath CARDIOVASCULAR: Negative for chest pain, leg swelling, hypertension, CHF or palpitations GI: No nausea, vomiting, or diarrhea : No history of dysuria, frequency or incontinence CUTTER WET MACHINE: Negative for abnormal vaginal bleeding, abnormal vaginal discharge SKIN: Negative for lesions, rash, and itching HEMATOLOGY/LYMPHOLOGY: Negative for prolonged bleeding, bruising easily or swollen nodes Measurements BP 136/88 Pulse 63 Ht 167.6 cm (5' 6) Wt 88.5 kg (195 lb) LMP 09/17/2008 SpO2 98% BMI 31.47 kg/m Vision Screening: Follows with optometry/ophthalmology PHYSICAL EXAM: GEN: pleasant, no acute distress, alert HEENT: PERRL, EOMI, MMM NECK: supple, no lymphadenopathy, no thyromegaly HEART: regular rate, regular rhythm, no murmurs LUNGS: clear to auscultation, no wheezes or crackles, no increased WOB ABD: soft, non-distended, no masses palpated, non-tender EXT: no clubbing, no cyanosis, no edema Assessment/Plan Medicare annual wellness visit, subsequent (Z00.00) - Counseled on healthy diet and regular exercise - Personalized prevention plan provided documented in this encounter [facility] 10-26-2023 Evaluation note Diagnosis Mixed hyperlipidemia- Primary Chronic kidney disease, stage 3a (HCC) Screening for depression Encounter for screening examination for other mental health and behavioral disorders documented in this encounter [facility]05-30-2024 Telephone encounter Note* Telephone Encounter - Tiffani Gant APRN.CNP - 08/27/2023 7:50 AM EDT Orders filed. [facility]05-30-2024 Miscellaneous Notes* Telephone Encounter - Tiffani Gant APRN.CNP - 08/27/2023 7:50 AM EDT Orders filed. * Telephone Encounter - Rhonda Lyons RN - 08/26/2023 11:04 AM EDT Mamm with [facility] order pending. Please file and then route to schedulers. Thank you. [facility] Tele[facility] encounter Note * Telephone Encounter - Rhonda Lyons RN - 08/26/2023 11:04 AM EDT Mamm with [facility] order pending. Please file and then route to schedulers. Thank you. [facility]05-04-2024 NoteHNO ID: [id number] Author: ENMANUEL WONG MD Service: ? Author Type: Physician Type: Progress Notes Filed: 08/01/2023 10:57 Note Text: Patient presents with: Pain: L side rib pain x1 week HPI: Left chest pain: Duration: 7 days. Pain started after sitting on a bucket with her side against something [place] [address] [place] a [place]. Location: left lateral lower ribs Character: dull, aching, and sometimes sharp Radiation: moving around to the front of the lower left ribs Aggravating: bending and twisting, sleeping on the left side Relieving: Pain relievers: Tylenol and ice Associated: Pertinent negatives: Denies cough, shortness of breath, fever, palpitations PAST MEDICAL HISTORY Diagnosis Date Acute gastritis without mention of hemorrhage Allergic rhinitis due to other allergen Arthritis Cancer (HCC) Deviated septum Dyskinesia of esophagus GERD (gastroesophageal reflux disease) 07/25/2013 Internal hemorrhoids without mention of complication Tinnitus MEDICATIONS: sucralfate (CARAFATE) 1 gram tablet Take 1 tablet by mouth before meals and at bedtime. pantoprazole DR (PROTONIX) 40 mg tablet Take 1 tablet by mouth once daily. calcium carbonate/vitamin d3(CALCIUM 500 WITH VITAMIN D 500 MG-125 UNIT TAB) Take one(1) tablet twice daily. tiZANidine (ZANAFLEX) 4 mg tablet Take 1 tablet by mouth every 8 hours as needed (muscle spasms). benzonatate (TESSALON PERLES) 100 mg capsule Take 1 capsule by mouth three times a day as needed for cough. (Patient not taking: Reported on 04/10/2023) pseudoephedrine (SUDAFED) 30 mg tablet Take 1 tablet by mouth every 4 hours as needed. (Patient taking differently: Take 15 mg by mouth every 4 hours as needed.) estradiol (ESTRACE) 0.01 % (0.1 mg/gram) vaginal cream Use small pea sized amount at vaginal opening twice a week. ALLERGIES: ALLERGIES Allergen Reactions Adhesive Tape-Silic* Rash Per patient developed extensive rash from adhesive monitor sticker after endoscopy Poison Akanksha VITALS: BP 162/79 Pulse 62 Temp 36.7 ?C (98.1 ?F) Resp 18 Wt 88.4 kg (194 lb 14.2 oz) LMP 09/17/2008 SpO2 99% BMI 31.46 kg/m? PHYSICAL EXAM: GEN: pleasant, no acute distress, alert HEENT: PERRL, EOMI, MMM NECK: supple, HEART: regular rate, regular rhythm, no murmurs LUNGS: clear to auscultation, no wheezes or crackles, no increased WOB CHEST: No midline vertebral or paraspinal tenderness. Left lower rib tenderness in the axillary line to the costochondral junction. ABD: soft, non-distended, no masses palpated, non-tender EXT: no clubbing, no cyanosis, no edema ASSESSMENT/PLAN: 1. Rib pain on left side - ICD9: 786.50, ICD10: R07.81 Reproducible musculoskeletal left rib pain. - PREDNISONE 10 MG TABLET taper. Continue as needed acetaminophen and ice. Follow up with cough, shortness of breath, increasing chest pain, or late onset fever. Enmanuel Wong, [facility]05-04-2024 History of Present illness Narrative* Enmanuel Wong MD - 08/01/2023 10:42 AM EDT Patient presents with: Pain: L side rib pain x1 week HPI: Left chest pain: Duration: 7 days. Pain started after sitting on a bucket with her side against something on a [address] in a [employer]. Location: left lateral lower ribs Character: dull, aching, and sometimes sharp Radiation: moving around to the front of the lower left ribs Aggravating: bending and twisting, sleeping on the left side Relieving: Pain relievers: Tylenol and ice Associated: Pertinent negatives: Denies cough, shortness of breath, fever, palpitations PAST MEDICAL HISTORY Diagnosis Date Acute gastritis without mention of hemorrhage Allergic rhinitis due to other allergen Arthritis Cancer (HCC) Deviated septum Dyskinesia of esophagus GERD (gastroesophageal reflux disease) 07/25/2013 Internal hemorrhoids without mention of complication Tinnitus MEDICATIONS: sucralfate (CARAFATE) 1 gram tablet Take 1 tablet by mouth before meals and at bedtime. pantoprazole DR (PROTONIX) 40 mg tablet Take 1 tablet by mouth once daily. calcium carbonate/vitamin d3(CALCIUM 500 WITH VITAMIN D 500 MG-125 UNIT TAB) Take one(1) tablet twice daily. tiZANidine (ZANAFLEX) 4 mg tablet Take 1 tablet by mouth every 8 hours as needed (muscle spasms). benzonatate (TESSALON PERLES) 100 mg capsule Take 1 capsule by mouth three times a day as needed for cough. (Patient not taking: Reported on 04/10/2023) pseudoephedrine (SUDAFED) 30 mg tablet Take 1 tablet by mouth every 4 hours as needed. (Patient taking differently: Take 15 mg by mouth every 4 hours as needed.) estradiol (ESTRACE) 0.01 % (0.1 mg/gram) vaginal cream Use small pea sized amount at vaginal opening twice a week. ALLERGIES: ALLERGIES Allergen Reactions Adhesive Tape-Silic* Rash Per patient developed extensive rash from adhesive monitor sticker after endoscopy Poison Akanksha VITALS: BP 162/79 Pulse 62 Temp 36.7 C (98.1 F) Resp 18 Wt 88.4 kg (194 lb 14.2 oz) LMP 09/17/2008 SpO2 99% BMI 31.46 kg/m PHYSICAL EXAM: GEN: pleasant, no acute distress, alert HEENT: PERRL, EOMI, MMM NECK: supple, HEART: regular rate, regular rhythm, no murmurs LUNGS: clear to auscultation, no wheezes or crackles, no increased WOB CHEST: No midline vertebral or paraspinal tenderness. Left lower rib tenderness in the axillary line to the costochondral junction. ABD: soft, non-distended, no masses palpated, non-tender EXT: no clubbing, no cyanosis, no edema ASSESSMENT/PLAN: 1. Rib pain on left side - ICD9: 786.50, ICD10: R07.81 Reproducible musculoskeletal left rib pain. - PREDNISONE 10 MG TABLET taper. Continue as needed acetaminophen and ice. Follow up with cough, shortness of breath, increasing chest pain, or late onset fever. Enmanuel Wong MD documented in this encounter[facility]24 Miscellaneous Notes* Addendum Note - Eugenio Peralta MD - 06/15/2023 9:39 AM EDTAddended by: EUGENIO PERALTA on: 06/15/2023 09:39 AM Modules accepted: Orders documented in this encounterChillic[facility]02-27-2024 NoteHNO ID: [id number] Author: LEXY KOVACS, DO Service: ? Author Type: Physician Type: Progress Notes Filed: 05/26/2023 15:08 Note Text: [facility] [place] DEPARTMENT OF VASCULAR SURGERY OUTPATIENT VISIT DATE May 26, 2023 OUTPATIENT VISIT TYPE ESTABLISHED SERVICE DATE: 05/26/2023 SERVICE TIME: 2:25 PM PRIMARY CARE PHYSICIAN: Eugenio Peralta MD HISTORY OF PRESENT ILLNESS: Ms. Astudillo is a 67 year old female who presents today for a vascular surgery follow-up visit for symptomatic varicose veins. She has been wearing compression however still has symptoms which have worsened over time. PAST MEDICAL HISTORY Diagnosis Date Acute gastritis without mention of hemorrhage Allergic rhinitis due to other allergen Arthritis Cancer (HCC) Deviated septum Dyskinesia of esophagus GERD (gastroesophageal reflux disease) 07/25/2013 Internal hemorrhoids without mention of complication Tinnitus PAST SURGICAL HISTORY Procedure Laterality Date CARPAL TUNNEL 03/09/2009 Rt wrist COLONOSCOPY FLX DX W/COLLJ SPEC WHEN PFRMD 09/06/2007 COLONOSCOPY FLX DX W/COLLJ SPEC WHEN PFRMD 10/05/2017 Colonoscopy EGD 10/20/2022 EGD TRANSORAL BIOPSY SINGLE/MULTIPLE 09/06/2007 ESOPHAGOGASTRODUODENOSCOPY TRANSORAL DIAGNOSTIC 10/05/2017 EGD LIG/TRNSXJ FLP TUBE ABDL/VAG APPR UNI/BI Tubal ligation NASAL ENDOSCOPY DIAG UNILBILAT 01/20/2015 SKIN BIOPSY HX SOCIAL HISTORY Social History Tobacco Use Smoking status: Never Smokeless tobacco: Never Vaping Use Vaping Use: Never used Substance Use Topics Alcohol use: No Drug use: No MEDICATIONS: tiZANidine (ZANAFLEX) 4 mg tablet Take 1 tablet by mouth every 8 hours as needed (muscle spasms). pantoprazole DR (PROTONIX) 40 mg tablet Take 1 tablet by mouth once daily. pseudoephedrine (SUDAFED) 30 mg tablet Take 1 tablet by mouth every 4 hours as needed. (Patient taking differently: Take 15 mg by mouth every 4 hours as needed.) sucralfate (CARAFATE) 100 mg/mL suspension Take 10 mL by mouth four times daily. estradiol (ESTRACE) 0.01 % (0.1 mg/gram) vaginal cream Use small pea sized amount at vaginal opening twice a week. calcium carbonate/vitamin d3(CALCIUM 500 WITH VITAMIN D 500 MG-125 UNIT TAB) Take one(1) tablet twice daily. benzonatate (TESSALON PERLES) 100 mg capsule Take 1 capsule by mouth three times a day as needed for cough. (Patient not taking: Reported on 04/10/2023) ALLERGIES: ALLERGIES Allergen Reactions Adhesive Tape-Silic* Rash Per patient developed extensive rash from adhesive monitor sticker after endoscopy Poison Akanksha PHYSICAL EXAM: BP 125/76 (BP Site: Right Arm, BP Position: Sitting, BP Cuff Size: Regular Adult) Pulse 64 LMP 09/17/2008 SpO2 96% Gen- no distress Ext-large bilateral varicose veins, edema bilaterally left greater than right Diagnostic tests reviewed for today's visit: Most recent labs Most recent imaging Venous Reflux Testing RIGHT SIDE - DEEP VEINS Negative for acute deep vein thrombosis in vessels visualized. RIGHT SIDE - SUPERFICIAL VEINS Positive for valvular incompetency in the great saphenous vein. Reflux noted at the knee. Varicosities arise at the level of the knee/proximal calf and course along the proximal to distal kohler. Negative for valvular incompetency in the small saphenous vein. LEFT SIDE - DEEP VEINS Negative for acute deep vein thrombosis in vessels visualized. Positive for valvular incompetency in the common femoral vein and femoral vein. LEFT SIDE - SUPERFICIAL VEINS Positive for valvular incompetency in the great saphenous vein. Varicosity at mid thigh courses along the medial thigh to the knee and throughout the calf. Positive for valvular incompetency in the small saphenous vein. Reflux at mid calf only. --Acute superficial thrombophlebitis in the varicosity off the great saphenous vein at the proximal calf IMPRESSION: Ms. Astudillo is a 67 year old female with symptomatic varicose veins. . PLAN and RECOMMENDATIONS: CEAP CLASSIFICATION OF VENOUS DISEASE: CLINICAL C2: Varicose veins C3: Edema S: Symptomatic, including ache, pain, tightness, skin irritation, heaviness, muscle cramps and other complaints attribultable to venous dysfunction ETIOLOGY Ep: Primary ANATOMIC As: Superficial veins PATHOPYSIOLOGIC Pr: Reflux INDICATION(S) FOR SURGERY: Left great saphenous vein reflux, Grade III-IV, Left painful varicose vein disease, and Left secondary varicose vein thrombus disease, painful and Right painful varicose vein disease Recommend Left GSV EVLT with post procedure stab phlebectomy and right leg stab phlebectomy. SIGNATURE: Lexy Kovacs DO PATIENT NAME: Lucas Astudillo DATE: May 26, 2023 TIME: 2:25 [facility]02-27-2024 History of Present illness Narrative* Lexy Kovacs DO - 05/26/2023 2:25 PM EST Images from the original note were not included. [facility] [place] DEPARTMENT OF VASCULAR SURGERY OUTPATIENT VISIT DATE May 26, 2023 OUTPATIENT VISIT TYPE ESTABLISHED SERVICE DATE: 05/26/2023 SERVICE TIME: 2:25 PM PRIMARY CARE PHYSICIAN: Eugenio Peralta MD HISTORY OF PRESENT ILLNESS: Ms. Astudillo is a 67 year old female who presents today for a vascular surgery follow-up visit for symptomatic varicose veins. She has been wearing compression however stillhas symptoms which have worsened over time. PAST MEDICAL HISTORY Diagnosis Date Acute gastritis without mention of hemorrhage Allergic rhinitis due to other allergen Arthritis Cancer (HCC) Deviated septum Dyskinesia of esophagus GERD (gastroesophageal reflux disease) 07/25/2013 Internal hemorrhoids without mention of complication Tinnitus PAST SURGICAL HISTORY Procedure Laterality Date CARPAL TUNNEL 03/09/2009 Rt wrist COLONOSCOPY FLX DX W/COLLJ SPEC WHEN PFRMD 09/06/2007 COLONOSCOPY FLX DX W/COLLJ SPEC WHEN PFRMD 10/05/2017 Colonoscopy EGD 10/20/2022 EGD TRANSORAL BIOPSY SINGLE/MULTIPLE 09/06/2007 ESOPHAGOGASTRODUODENOSCOPY TRANSORAL DIAGNOSTIC 10/05/2017 EGD LIG/TRNSXJ FLP TUBE ABDL/VAG APPR UNI/BI Tubal ligation NASAL ENDOSCOPY DIAG UNILBILAT 01/20/2015 SKIN BIOPSY HX SOCIAL HISTORY Social History Tobacco Use Smoking status: Never Smokeless tobacco: Never Vaping Use Vaping Use: Never used Substance Use Topics Alcohol use: No Drug use: No MEDICATIONS: tiZANidine (ZANAFLEX) 4 mg tablet Take 1 tablet by mouth every 8 hours as needed (muscle spasms). pantoprazole DR (PROTONIX) 40 mg tablet Take 1 tablet by mouth once daily. pseudoephedrine (SUDAFED) 30 mg tablet Take 1 tablet by mouth every 4 hours as needed. (Patient taking differently: Take 15 mg by mouth every 4 hours as needed.) sucralfate (CARAFATE) 100 mg/mL suspension Take 10 mL by mouth four times daily. estradiol (ESTRACE) 0.01 % (0.1 mg/gram) vaginal cream Use small pea sized amount at vaginal opening twice a week. calcium carbonate/vitamin d3(CALCIUM 500 WITH VITAMIN D 500 MG-125 UNIT TAB) Take one(1) tablet twice daily. benzonatate (TESSALON PERLES) 100 mg capsule Take 1 capsule by mouth three times a day as needed for cough. (Patient not taking: Reported on 04/10/2023) ALLERGIES: ALLERGIES Allergen Reactions Adhesive Tape-Silic* Rash Per patient developed extensive rash from adhesive monitor sticker after endoscopy Poison Akanksha PHYSICAL EXAM: BP 125/76 (BP Site: Right Arm, BP Position: Sitting, BP Cuff Size: Regular Adult) Pulse 64 LMP 09/17/2008 SpO2 96% Gen- no distress Ext-large bilateral varicose veins, edema bilaterally left greater than right Diagnostic tests reviewed for today's visit: Most recent labs Most recent imaging Venous Reflux Testing RIGHT SIDE - DEEP VEINS Negative for acute deep vein thrombosis in vessels visualized. RIGHT SIDE - SUPERFICIAL VEINS Positive for valvular incompetency in the great saphenous vein. Reflux noted at the knee. Varicosities arise at the level of the knee/proximal calf and course along the proximal to distal kohler. Negative for valvular incompetency in the small saphenous vein. LEFT SIDE - DEEP VEINS Negative for acute deep vein thrombosis in vessels visualized. Positive for valvular incompetency in the common femoral vein and femoral vein. LEFT SIDE - SUPERFICIAL VEINS Positive for valvular incompetency in the great saphenous vein. Varicosity at mid thigh courses along the medial thigh to the knee and throughout the calf. Positive for valvular incompetency in the small saphenous vein. Reflux at mid calf only. --Acute superficial thrombophlebitis in the varicosity off the great saphenous vein at the proximal calf IMPRESSION: Ms. Astudillo is a 67 year old female with symptomatic varicose veins. . PLAN and RECOMMENDATIONS: CEAP CLASSIFICATION OF VENOUS DISEASE: CLINICAL C2: Varicose veins C3: Edema S: Symptomatic, including ache, pain, tightness, skin irritation, heaviness, muscle cramps and other complaints attribultable to venous dysfunction ETIOLOGY Ep: Primary ANATOMIC As: Superficial veins PATHOPYSIOLOGIC Pr: Reflux INDICATION(S) FOR SURGERY: Left great saphenous vein reflux, Grade III-IV, Left painful varicose vein disease, and Left secondary varicose vein thrombus disease, painful and Right painful varicose vein disease Recommend Left GSV EVLT with post procedure stab phlebectomy and right leg stab phlebectomy. SIGNATURE: Lexy Kovacs DO PATIENT NAME: Lucas Astudillo DATE: May 26, 2023 TIME: 2:25 PM documented in this encounterCh[facility]02-05-2024 NoteHNO ID: [id number] Author: REIJ MORGAN PT Service: ? Author Type: Physical Therapist Type: Progress Notes Filed: 05/19/2023 13:42 Note Text: Episode Visit Count: 1 Therapist That Will Accept/Oversee The Plan Of Care: Reji Morgan PT. Start of Care Date: 05/04/23 Onset Date: 04/17/23 Plan of Care Certification Date: 05/04/23 Next Certification Due Date: 06/08/23 Patient Identified by Name and Date of : Yes [facility]AB[facility] THERAPY PHYSICAL THERAPY EVALUATION PLAN OF CARE: Assessment: Lucas Astudillo presents with chief complaint of acute R shoulder pain that interferes with lifting, carrying, physical activities (ABD and Internal Rotation AROM.) . Patient reports the R shoulder has improved significantly with rest over the last 1-2 weeks. She presents with impairments in ADL's, flexibility, independence in exercise, overall function, range of motion, and strength. Patient did not complete the PROMIS? (Patient Reported Outcome Measures Information System). Prognosis for therapy is Excellent due to: current objective clinical presentation, good overall health status, acuteness of condition, positive past response to therapy, within-session changes . She will benefit from skilled therapy services to meet the goals established for this plan of care as noted below. Goals for Episode of Care: created on 05/04/23 through 06/02/23 [place] in home exercise program. Patient will decrease pain rating by 2 points to meet minimal clinical important difference for numeric pain rating scale. Patient will demonstrate increase in R Shoulder strength to 5/5 during manual muscle testing in order to improve function for basic self-care tasks, home management tasks, leisure / recreation skills, and light functional tasks. Increase pain free active ROM of R Shoulder to WNL/when compared to left upper extremity to improve ADLs/IADLs. Perform reaching, carrying, lifting, sleeping, and all ADLs without pain. Patient Goals: Completely alleviate pain/sxs. Planned Interventions, Frequency, and Duration: Current Frequency: 1 visit (Plan is for the patient to return in a month for follow-up if needed.) Duration: 1 visit Total Number of Visits Planned: 1 Planned Treatment Interventions: Therapeutic exercise (32181), Neuromuscular re-education (14395), Manual therapy (89430), Therapeutic activities (59473), Self-longterm management (30405), Patient/Family/Caregiver Education PLAN FOR NEXT VISIT: Assess how HEP went; progress ther-ex as able. Patient demonstrates good understanding of plan of care and treatment. The above goals and plan of care were discussed and agreed upon by patient/family. SUBJECTIVE: Patient reports completing cutting down trees,and lifting a couple weeks ago; originally was having severe pain in the R Shoulder and then having referral pain down the R Arm and into the hand; no relief with voltaren, chiropractor, prednisone - just overall rest helped. States the R Shoulder is pretty much okay now following rest, however she wanted to come in to make sure everything continues to get better. Denies referral pain down the RUE continuing. Patient Goals: Completely alleviate pain/sxs. Functional Limitations: lifting, carrying, physical activities (ABD and Internal Rotation AROM.) Prior Level of Function: Independent without limitations Relevant History Past Relevant Medical Conditions: Cancer, Kidney Problems Right or Left Handed: Right Employment: Retired Intake Information: Prescription present Previous Treatment: Self prescribed exercises, Heat , Ice , NSAIDs , Chiropractor , Steroids Falls Interview: No positive findings with falls interview Pain: Pain Pain Level: 2 (Average 2-06/06) Pain Location: Shoulder - Right Description: Sore Frequency: Intermittent Post Treatment Pain Post Treatment Pain Level: Better Post Treatment Pain Description: Sore Post Treatment Symptoms: More loose R Shoulder PROMIS Scales Higher is Better 03/10/2023 02/09/2023 01/10/2023 Phys Func - Score 42 (mild dysfunction) 41 (mild dysfunction) 41 (mild dysfunction) Phys Func - Percentile 21% 18% 18% Self-Eff Symptom - Score 48 (Average) 38 (Low) 41 (Average) Self-Eff Symptom - Percentile 42% 12% 18% T-scores: mean of general population = 50. 5 points is clinically meaningfully difference Percentiles provide an indication of how the patient's score ranks in relation to the general population. Higher percentile rankings indicate better function/quality of life. 50th percentile is the average of the general population and indicates half of respondents had a worse score. OBJECTIVE MEASURES WITH LEVEL OF FUNCTION: Shoulder Observations R Shoulder Palpation Tenderness: (TTP Supraspinatus Tendon; Deltoids: Levator Scap/Trap.) Cervical Spine ROM Cervical ROM : (WNL) UE AROM R Shoulder Flex: 150 Degrees R Shoulder ABduction: 140 Degr (more content not included)...[facility]01-23-2024 NoteHNO ID: [id number] Author: Mavis HUGHES PA-C Service: ? Author Type: Physician Tin Container Straightener Type: Progress Notes Filed: 04/25/2023 14:21 Note Text: 67 year old female with c/o pain in right shoulder. Got new wood burner, has been cutting and staking wood. Using ibuprofen 200mg 1 tab. Trouble sleeping, pain with using the arm. HISTORIES FAMILY HISTORY Problem Relation Age of Onset Cancer Mother ovarian, had negative genetic testing Coronary Artery Disease Father after 55 Hypertension Father Diabetes Father other (hysterecomy) Sister cervical cancer cells other (Precancerous cervix cells) Sister cancerous cells in uterus per Sharon Ellis, JAIRON other (hysterectomy) Sister half-sister; unknown etiology Diabetes Maternal Grandmother Cancer Paternal Grandmother possibly ovarian or cervical other (abnormal pap) Daughter other (Precancerous cervix cells) Other Niece (hysterectomy) PAST MEDICAL HISTORY Diagnosis Date Acute gastritis without mention of hemorrhage Allergic rhinitis due to other allergen Arthritis Cancer (HCC) Deviated septum Dyskinesia of esophagus GERD (gastroesophageal reflux disease) 07/25/2013 Internal hemorrhoids without mention of complication Tinnitus PAST SURGICAL HISTORY Procedure Laterality Date CARPAL TUNNEL 03/09/2009 Rt wrist COLONOSCOPY FLX DX W/COLLJ SPEC WHEN PFRMD 09/06/2007 COLONOSCOPY FLX DX W/COLLJ SPEC WHEN PFRMD 10/05/2017 Colonoscopy EGD 10/20/2022 EGD TRANSORAL BIOPSY SINGLE/MULTIPLE 09/06/2007 ESOPHAGOGASTRODUODENOSCOPY TRANSORAL DIAGNOSTIC 10/05/2017 EGD LIG/TRNSXJ FLP TUBE ABDL/VAG APPR UNI/BI Tubal ligation NASAL ENDOSCOPY DIAG UNILBILAT 01/20/2015 SKIN BIOPSY HX Social History Tobacco Use Smoking status: Never Smokeless tobacco: Never Vaping Use Vaping Use: Never used Substance Use Topics Alcohol use: No Drug use: No ACTIVE PROBLEM LIST Mixed Hyperlipidemia RHINITIS ALLERGIC, DUE TO POLLEN Hx of Acute Gastritis Dyskinesia of Esophagus Family History of Ovarian Cancer Encounter for Long-Term (Current) Use of Medications Screening for Colorectal Cancer Gastroesophageal Reflux Disease Lichen Sclerosus Et Atrophicus of The Vulva Chronic Kidney Disease, Stage 3a (Hcc) Arthritis of Right Sacroiliac Joint Plantar Fasciitis Flat Feet, Bilateral Current Outpatient Medications Medication Sig Dispense Refill benzonatate (TESSALON PERLES) 100 mg capsule Take 1 capsule by mouth three times a day as needed for cough. (Patient not taking: Reported on 04/10/2023) [address] (PROTONIX) 40 mg tablet Take 1 tablet by mouth once daily. 90 tablet 3 pseudoephedrine (SUDAFED) 30 mg tablet Take 1 tablet by mouth every 4 hours as needed. (Patient taking differently: Take 15 mg by mouth every 4 hours as needed.) 30 tablet 0 sucralfate (CARAFATE) 100 mg/mL suspension Take 10 mL by mouth four times daily. 414 mL 1 estradiol (ESTRACE) 0.01 % (0.1 mg/gram) vaginal cream Use small pea sized amount at vaginal opening twice a week. 42.5 g 5 calcium carbonate/vitamin d3(CALCIUM 500 WITH VITAMIN D 500 MG-125 UNIT TAB) Take one(1) tablet twice daily. 0 No current facility-administered medications for this visit. RSV Vaccine(1 - 1-dose 60+ series) Never done Advance Directive Discussion due on 03/30/2023 Depression Assessment due on 03/30/2023 EXAM: BP 130/82 Pulse 66 Resp 16 Wt 88.5 kg (195 lb) LMP 09/17/2008 SpO2 99% BMI 31.47 kg/m? Pleasant well-appearing adult woman in no acute distress. Alert and oriented all spheres. Normal affect and cognition. Speech normal. No deficits to learning or comprehension. Skin warm, dry, pink to lips and nailbeds. Normal turgor. Respirations regular and unlabored. Pain in right arm with trying to reach overhead, negative Park's, negative Martinez, negative lift off. Tender trigger points anterior posterior shoulder. Extrem: no clubbing or cyanosis. Edema: None. Extremities are warm and pink with prompt capillary refill. OMT with permission: Myofascial release to regular brachiocostialis, trapezius, pterygoid complex, subscapularis with moderate improvement in range of motion and significant pain reduction. ASSESSMENT/PLAN: 1. Cervicalgia - ICD9: 723.1, ICD10: M54.2 (primary diagnosis) 2. Repetitive strain injury of cervical spine, initial encounter - ICD9: 847.0, ICD10: S16.1XXA, X50.3XXA 3. Overuse syndrome of shoulder, right, subsequent encounter - ICD9: V58.89, 840.9, ICD10: S46.911D, X50.3XXD Encourage patient to do some gentle stretching exercises, handouts were provided from [facility] re[facility] - PREDNISONE 20 MG TABLET - TIZANIDINE 4 MG TABLET Consider PT if not improving. Educated on new medication administration, warnings and cautions, common side effects, anticipated duration or therapy, and instructions on cessation management to avoid risks if stops medication. Patient choice was di (more content not included)...[facility]01-02-2024 History of Present illness Narrative* Ivis Pelayo RT(R) - 03/31/2023 12:50 PM EST Radiology Service Progress Note PATIENT NAME: Lucas Astudillo DATE OF SERVICE: March 31, 2023 TIME: 12:47 PM PATIENT IDENTITY VERIFICATION COMPLETED USING TWO (2) IDENTIFIERS: Name and Date of confirmedby patient verbally. FALL SCREENING: Has the patient had 2 falls in the last year or 1 fall with injury or currently using an Ambulatory Assistive Device (Walker, Cane, Wheelchair, Crutches, etc.)? No PATIENT GENDER DATA: Female. status: : No status: NO. PATIENT RELEVANT IMPLANT DATA REVIEWED: Not Applicable RADIOLOGY DEPARTMENT: General X-ray: Exam(s) Completed: Chest X-Ray PERIPHERAL IV DATA: Not applicable SIGNED BY: RT Brianna(R) March 31, 2023 12:47 PM documented in this encounterCh[facility]11-21-2023 Instructions* Patient Instructions* Lexy Kovacs, DO - 02/17/2023 9:26 AM EST Stocking Wear and Care Your doctor has recommended for you to wear compression stockings. The following instructions are to help you maintain your treatment plan and care for your stockings. You must be properly fitted before ordering your stockings. Ill-fitting stockings could be ineffective or cause injury. Put your stockings on first thing when you wake up, BEFORE you get out of bed. If you need to shower, it is recommended to lie back down after for 20-30 minutes with your feet elevated prior to putting on your stockings. Take your stockings off before bed. Do not sleep in them, unless instructed to do so after a procedure. To wash your stockings, wash with mild soap or detergent (do not use any bleach containing product), rinse well. Roll them in a towel to remove excess water and allow to air dry. There are also police shift commander recommendations included with your stockings. Skin care- Wash your legs and feet and dry them well each day, especially between your toes. Beforebed, moisturize liberally with a fragrant free, creamy moisturizer (Lubriderm, Daniella, Eucerin, Supriya) Never moisturize between toes. Avoid moisturizing immediately prior to putting on your stockings. You can use rubber gloves, such as Playtex or Sigvaris, when putting on your stockings. The groovesin the palm of the gloved will help you ore charger the stocking while putting it on. Be sure to place theheel on first, prior to pulling up the stocking. Other devices to help with putting on stockings, like the easy glide, can be ordered online and from the location you order your stockings from. Knee- High stockings should end about an inch below the knee, if you pull them up too high, do not fold or roll them down. Place the top of the stockings in the correct place and snap out or pinch out any wrinkles. Over time, the stockings will lose their elasticity and therefore, their effectiveness. If one pairis worn daily, they should be replaced about every 4 months. If alternating between multiple pairs,they will last longer. Begin looking for replacements about a month prior to them needing replaced.This will help avoid a gap in therapeutic use. It is recommended to keep the original box so that re ordering will be easier. It is also recommended that a new fitting be completed to ensure you are wearing the most effective size. Locations: [facility]- [phone] [employer] [phone] www.[employer]- [phone] www.[employer]- [phone] Located in [facility]- climax local store and schedule a fitting. documented in this encounter[facility]11-[facility]23 History of Present illness Narrative* Lexy Kovacs DO - 02/17/2023 8:43 AM EST Images from the original note were not included. Heart, Vascular and Thoracic [place] DEPARTMENT OF VASCULAR SURGERY OUTPATIENT VISIT DATE February 17, 2023 OUTPATIENT VISIT TYPE CONSULTATION SERVICE DATE: 02/17/2023 SERVICE TIME: 8:46 AM PRIMARY CARE PHYSICIAN: Eugenio Peralta MD REFERRING PROVIDER: Mavis Hughes [address] [facility] [id number] Consult requested for an opinion regarding the evaluation and treatment of the above. My final impression and recommendations will be communicated back to the requesting physician by way of the shared medical record or letter via US mail. CHIEF COMPLAINT: Patient presents with: New Patient History of Present Illness: Patient is a 67 year old White female presenting for consultation, evaluation and possible treatment of varicose veins.bilateral aching, throbbing, pruritis, and tingling . She wears knee high compression without significant improvement in symptoms. Predisposing factors included family history of varicose veins is positive and include(s) mother without surgery. No specific history of injury or prior problems. Relieving factors include support hose, elevation of legs, and reduced activity with mild improvement in symptoms. Patient denies DVT, phlebitis, and treatment with blood thinners. She is retired. PAIN ASSESSMENT: PAIN EVALUATION 02/13/2023 1126 02/17/2023 0843 Pain Level: 2 2 Pain Location: Leg-Left Leg-Left LEFT>RIGHT Description: Aching;Itching;Tingling Burning;Itching;Tingling Duration Amount of Time: 1 -- Duration Units: Minutes -- Frequency: Intermittent Intermittent Intervention/Comfort measure: Pillow support Relaxation;Pillow support Obstetric History T0 L1 SAB1 IAB0 Ectopic1 Multiple0 Live Births0 Comment: 1 section No surgery for ectopic Name of Baby 1: Not recorded Date: Not recorded GA: Not recorded Delivery: Not recorded Apgar1: Not recorded Apgar5: Not recorded Living: Not recorded Name of Baby 2: Not recorded Date: Not recorded GA: Not recorded Delivery: Not recorded Apgar1: Not recorded Apgar5: Not recorded Living: Not recorded Name of Baby 3: Not recorded Date: Not recorded GA: Not recorded Delivery: Not recorded Apgar1: Not recorded Apgar5: Not recorded Living: Not recorded Duration of Symptoms: Progressive PAST MEDICAL HISTORY Diagnosis Date Acute gastritis without mention of hemorrhage Allergic rhinitis due to other allergen Arthritis Cancer (HCC) Deviated septum Dyskinesia of esophagus GERD (gastroesophageal reflux disease) 07/25/2013 Internal hemorrhoids without mention of complication Tinnitus PAST SURGICAL HISTORY Procedure Laterality Date CARPAL TUNNEL 03/09/2009 Rt wrist COLONOSCOPY FLX DX W/COLLJ SPEC WHEN PFRMD 09/06/2007 COLONOSCOPY FLX DX W/COLLJ SPEC WHEN PFRMD 10/05/2017 Colonoscopy EGD 10/20/2022 EGD TRANSORAL BIOPSY SINGLE/MULTIPLE 09/06/2007 ESOPHAGOGASTRODUODENOSCOPY TRANSORAL DIAGNOSTIC 10/05/2017 EGD LIG/TRNSXJ FLP TUBE ABDL/VAG APPR UNI/BI Tubal ligation NASAL ENDOSCOPY DIAG UNILBILAT 01/20/2015 SKIN BIOPSY HX SOCIAL HISTORY: Social History Tobacco Use Smoking status: Never Smokeless tobacco: Never Vaping Use Vaping Use: Never used Substance Use Topics Alcohol use: No Drug use: No FAMILY HISTORY Problem Relation Age of Onset Cancer Mother ovarian, had negative genetic testing Coronary Artery Disease Father after 55 Hypertension Father Diabetes Father other (hysterecomy) Sister cervical cancer cells other (Precancerous cervix cells) Sister cancerous cells in uterus per Sharon Ellis, STRETCH MACHINE OPERATOR other (hysterectomy) Sister half-sister; unknown etiology Diabetes Maternal Grandmother Cancer Paternal Grandmother possibly ovarian or cervical other (abnormal pap) Daughter other (Precancerous cervix cells) Other Niece (hysterectomy) MEDICATIONS: pantoprazole DR (PROTONIX) 40 mg tablet Take 1 tablet by mouth once daily. pseudoephedrine (SUDAFED) 30 mg tablet Take 1 tablet by mouth every 4 hours as needed. sucralfate (CARAFATE) 100 mg/mL suspension Take 10 mL by mouth four times daily. estradiol (ESTRACE) 0.01 % (0.1 mg/gram) vaginal cream Use small pea sized amount at vaginal opening twice a week. calcium carbonate/vitamin d3(CALCIUM 500 WITH VITAMIN D 500 MG-125 UNIT TAB) Take one(1) tablet twice daily. ALLERGIES: ALLERGIES Allergen Reactions Adhesive Tape-Silic* Rash Per patient developed extensive rash from adhesive monitor sticker after endoscopy Poison Akanksha REVIEW of SYSTEMS: Constitutional: No weight loss, malaise or fevers. HEENT: Negative for frequent or significant headaches, No changes in hearing or vision, no nose bleeds or other nasal problems Respiratory: Negative for cough, wheezing, or shortness of breath Cardiovascular: Negative for chest pain, leg swelling or palpitations Gatrointestinal: Negative for abdominal discomfort, blood in stools or black stools or change in bowel habits Genitourinary: No difficulty urination, nocturia >1 times per night or hematuria Musculoskeletal: Negative for muscle pain and Positive for low back pain, joint swelling, and jointpain Endocrine: Negative for cold or heat intolerance, polyuria, polydipsia and goiter Hematology/Lymphatic: Negative for prolonged bleeding, bruising easily or swollen nodes Neurologic: No history or headaches, syncope, paralysis, seizures or tremors Integumentary: Negative for lesions, rash, and itching. PHYSICAL EXAM: VITALS: LMP 09/17/2008 General: Alert, oriented, cooperative, healthy appearance Integumentary: Normal color, no rash, no lesions. HEENT: EOM, pupils equal, round and reactive. Cardiovascular: Pulse regular. Lungs: No chest deformities or chest wall tenderness. Abdomen: Not examined Extremities: Varicose veins- large left medial thigh to calf, right medial thigh and pretibial varicose veins Neurological: AAOx3. Normal cognition and motor skills. Vascular: Posterior Tibial Right: Normal - Left: Normal Dorsalis Pedal Right: Normal - Left: Normal Diagnostic tests reviewed for today's visit: Most recent labs Most recent imaging IMPRESSION: Ms. Astudillo is a 67 year old female with symptomatic varicose veins . PLAN and RECOMMENDATIONS: Discussed venous pathology with patient Recommend continued use of compression stockings, elevation and exercise Will get venous reflux testing and follow up to discuss results Prescription provided for compression stockings 20-30 mmHg and instructed on use SIGNATURE: Lexy Kovacs DO PATIENT NAME: Lucas Astudillo DATE: February 17, 2023 TIME: 8:46 AM documented in this encounterCh[facility]11-14-2023 History of Present illness Narrative* Reji Morgan, PT - 02/10/2023 10:26 AM EST Program_ID:[id number] Access Code: [email or web address] URL: [email or web address] Date: 02-10-2023 Prepared By: Reji Morgan Program Notes Exercises - Supine Hip ABDuction with Resistance - 1-2 x daily - 5 x weekly - 2 - 10 - Clamshell with Resistance - 1-2 x daily - 5 x weekly - 2 - 10 - Sidelying Hip Abduction - 1-2 x daily - 5 x weekly - 2 - 10 - Supine Gluteus Stretch - 1 x daily - 7 x weekly - 3 - - Seated Gluteal Stretch - 1 x daily - 7 x weekly - 3 - * Reji Morgan, PT - 02/10/2023 9:49 AM EST Episode Visit Count: 7 Therapist That Will Accept/Oversee The Plan Of Care: Harry Faustin PT will oversee custom foot orthotics Start of Care Date: 01/19/23 Onset Date: 01/20/20 Plan of Care Certification Date: 01/19/23 Next Certification Due Date: 02/23/23 Patient Identified by Name and Date of : Yes REHABILITATION AND SPORTS THERAPY PHYSICAL THERAPY TREATMENT NOTE ASSESSMENT: Lucas Astudillo tolerated the session with expected muscle soreness and no issues. She demonstrated improvements in R LEG pain following dry needling. The patient will continue to benefitfrom ongoing skilled physical therapy to progress toward set goals. PLAN FOR NEXT VISIT: Assess response to DN; possibly DN again based off of response; Progress Check and decide b/w home maintenance or continuing POC. SUBJECTIVE: Patient reports continued R Hip pain when laying on it, can only last a couple minutes.Patient consent gained and wanting to trial DN today. Pain: Pain Pain Level: 2 Pain Location: Leg - Right Description: Dull Frequency: Intermittent Post Treatment Pain Post Treatment Pain Level: Better Post Treatment Pain Location: Leg - Right Post Treatment Symptoms: No pain down the lateral leg following DN. OBJECTIVE MEASURES WITH LEVEL OF FUNCTION: Trigger points located in R Glute Min and Med - localized twitch response appreciated throughout DN. TREATMENT: Therapeutic Exercise: 1: *Sidelying R Clamshells: 2x15. 2: *Hip ABD: 0-100%, 2x10 RLE. 3: *Hip ABD: 50-100%, 2x10, RLE. 4: *R Gluteal Longsit Stretch: 3x30 5: *Education on importance of HEP in conjunction with DN and other manual techniques and therapeutic exercise. 6: *Education in appropriateness of muscle soreness feeling in involved area following DN. 7: *SKC, DKC, Quadruped Hydrants given for HEP as well on handout. Skilled Intervention: Patient was educated in proper exercise technique and purpose for exercises. Reviewed and educated patient on additions/changes for home exercise program as above (*). Skilled judgment was used in selection of appropriate interventions. Provided written instruction for home exercise program to facilitate proper performance and compliance. Correct performance of therapeutic exercises was facilitated with verbal, visual, and tactile cuing. Manual Therapy: 1: Active Release with Lacrosse Ball to L Glute Med/Min: push to tolerance. 2: STM to R Glute Min/Med w/ lacrosse ball: Push to tolerance. Dry Needling: (1) 75 mm needles to R Glute Med with pistoning and fanning; (1) 60 mm needle R GluteMin with pistoning and fanning (pt consent gained, 2 needles in, 2 needles out) Skilled Intervention: Manual skills to improve joint mobility, ROM, and decrease pain. Utilized anatomy knowledge of the therapist, and assessment of patient's response to intervention. Billing Therapeutic Exercise Treatment Minutes: 30 Manual TherapyTreatment Minutes: 15 Skilled Treatment Time Minutes (timed and untimed codes): 45 Total Session Time (minutes): 45 Session Start Time : 944 Session Stop Time : 1030 Reji Morgan PT documented in this encounterCh[facility]11-08-2023 History of Present illness Narrative* Harry Faustin, PT - 02/04/2023 10:27 AM EST [place] [facility] DME ISSUE NOTE Patient identified by name and date: Yes Subjective: Lucas Astudillo is a 67 year old female seen today for fitting and citrus picker of custom foot orthotics. Equipment Owned: custom foot orthotics DME Delivery: Pt was educated on wear schedule and care of custom foot orthotics. Pt was educated on the option of having orthotics refurbished as needed in the future as long as shell is performing it's intended function well. Pt was educated on approximate cost of refurbishing orthotics and an approximate timeframe when this might be necessary. Pt was urged to follow the wear schedule and to call with any questions or concerns. Pt was instructed to start with wearing orthotics one hour the first day and then to add one hour of wear time per day until time cycle operator wear is achieved. Pt was educated on how toremove insoles from shoes and then place orthotics in shoes. The fit of orthotics was assessed with pt standing, with and without shoes. The comfort of orthotics was assessed with pt standing and walking with orthotics in shoes. Pt denied any rubbing or pinching and felt that fit of custom orthotics was correct. Contact information for this therapist was provided to patient. Custom biomechanical foot orthotics with serial number: #[id number] were issued to patient and proof of receipt form signed by pt and therapist. All specifications for custom foot orthotics can be foundin orthotic evaluation visit note. Planned Interventions: Follow up as needed for brace fitting/issues. Billing:[facility]: Orthotics Management and Training ([id number]): 1:1 time: 15 minutes (1 unit: 8-22 mins) Equipment: [id number] pair of custom foot orthotics Total time: 15 minutes Harry Faustin PT documented in this encounterChillic[facility]10-31-2023 History of Present illness Narrative* Reji Morgan, PT - 01/27/2023 1:16 PM EDT Episode Visit Count: 6 Therapist That Will Accept/Oversee The Plan Of Care: Harry Faustin PT will oversee custom foot orthotics Start of Care Date: 01/19/23 Onset Date: 01/20/20 Plan of Care Certification Date: 01/19/23 Next Certification Due Date: 02/23/23 Patient Identified by Name and Date of : Yes REHABILITATION AND SPORTS THERAPY PHYSICAL THERAPY TREATMENT NOTE ASSESSMENT: Lucas Astudillo tolerated the session with decreased symptoms and expected muscle soreness. She demonstrated difficulty with motion during hip fire hydrants. The patient will continue to benefit from ongoing skilled physical therapy to progress toward set goals. PLAN FOR NEXT VISIT: Answer any questions regarding DN; continue progressions of ther-ex as tolerated. SUBJECTIVE: Patient reports a light dull ache in the low back today; overall patient notes gradual improvement in pain/sxs and overall function. Had pain on the L lowback/buttocks for .5-1 hour and it went away following Motrin and a pain patch and hasn't come back. Pain: Pain Pain Level: 1 Pain Location: Low Back/Lumbar Spine- Midline Description: Dull Frequency: Intermittent Post Treatment Pain Post Treatment Pain Level: Better Post Treatment Pain Location: Buttocks - Right Post Treatment Symptoms: Better following active release and ther-ex exercises. OBJECTIVE MEASURES WITH LEVEL OF FUNCTION: Trigger points and increased tenderness in R Gluteals and in the R Piriformis. Increased palpation recreated referral pain down the right lower extremity. TREATMENT: Therapeutic Exercise: 1: *Sidelying R Clamshells: 2x15. 2: Prone Resisted Hip IR, BTB: 2x10. 3: *B Fire Hydrant: 2x10. 4: *Seated Hip ER: 1x12, BTB.ea. 5: *Seated Hip IR: 1x12, BTB ea. Skilled Intervention: Patient was educated in proper exercise technique and purpose for exercises. Reviewed and educated patient on additions/changes for home exercise program as above (*). Skilled judgment was used in selection of appropriate interventions. Provided written instruction for home exercise program to facilitate proper performance and compliance. Correct performance of therapeutic exercises was facilitated with verbal, visual, and tactile cuing. Manual Therapy: 1: Active Release with Lacrosse Ball to L Glute Med/Min, & Piriformis: push to tolerance. 2: STM to R Piriformis and Gluteals: Push to tolerance. 3: *Patient education during manual on purpose, safety, and other treatment options regarding dry needling in conjunction with other manual techniques and therapeutic exercise. Skilled Intervention: Manual skills to improve joint mobility, ROM, and decrease pain. Utilized anatomy knowledge of the therapist, and assessment of patient's response to intervention. Billing Therapeutic Exercise Treatment Minutes: 24 Manual TherapyTreatment Minutes: 24 Skilled Treatment Time Minutes (timed and untimed codes): 48 Total Session Time (minutes): 48 Session Start Time : 1314 Session Stop Time : 1402 Reji Morgan PT documented in this encounterCh[facility]ic[facility]10-23-2023 History of Present illness Narrative* Harry Faustin, PT - 01/19/2023 11:46 AM EDT Episode Visit Count: 1 Therapist That Will Accept/Oversee The Plan Of Care: Harry Faustin PT will oversee custom foot orthotics Start of Care Date: 01/19/23 Onset Date: 01/20/20 Plan of Care Certification Date: 01/19/23 Next Certification Due Date: 02/23/23 Patient Identified by Name and Date of : Yes REHABILITATION AND SPORTS THERAPY PHYSICAL THERAPY EVALUATION PLAN OF CARE: Assessment: Lucas Astudillo presents with chief complaint of B arch pain that interferes with walking, standing. She presents with impairments in ADL's, balance, gait, independence in exercise, overall function, symptom management, and tissue tenderness. PROMIS (Patient-Reported Outcomes Measurement Information System) scores were reviewed and physical function domain identified as a rehabilitation concern. Prognosis for therapy is Excellent due to: positive past response to therapy, within-session changes, current objective clinical presentation. She will benefit from skilled therapy services to meet the goals established for this plan of care as noted below. Goals for Episode of Care: created on 01/19/23 through 02/23/23 Pt will be educated on proper wear schedule and care of custom biomechanical foot orthotics Pt will be provided with custom biomechanical B foot orthotics that improve foot and ankle biomechanics as intended with proper fit and function. Patient Goals: decrease pain in feet with walking Planned Interventions, Frequency, and Duration: Current Frequency: 1 visit Duration: 1 visit Total Number of Visits Planned: 2 (1 evaluation visit and 1 visit for fitting and citrus picker) Planned Treatment Interventions: Orthosis / DME, Patient/Family/Caregiver Education, Self-care homemanagement ([id number]) PLAN FOR NEXT VISIT: Fitting and citrus picker of custom foot orthotics Patient demonstrates good understanding of plan of care and treatment. The above goals and plan of care were discussed and agreed upon by patient/family. SUBJECTIVE: Pt reports intermittent pain in plantar surface of B feet, especially medial longitudinal arch. Shereports that pain is most severe early in AM and after prolonged standing. She has had custom foot orthotics for many years but current pair is no longer effective. She is here for re-assessment and fitting of new pair of custom foot orthotics Patient Goals: decrease pain in feet with walking Functional Limitations: walking, standing Prior Level of Function: Independent without limitations Relevant History Employment: Retired Recreation / Current Exercise: walking Home Environment Equipment Owned: Orthosis Intake Information: Prescription present Previous Treatment: Orthotics (old pair is ineffective) Pain: Pain Pain Level: 4 Pain Location: Foot - Right, Foot - Left Description: Aching, Stabbing Frequency: Intermittent, Standing, Walking Post Treatment Pain Post Treatment Pain Level: No Change PROMIS Scales Higher is Better 01/10/2023 12/01/2022 Phys Func - Score 41 (mild dysfunction) 46 (within normal limits) Phys Func - Percentile 18 % 34 % Self-Eff Symptom - Score 41 (Average) 46 (Average) Self-Eff Symptom - Percentile 18 % 34 % T-scores: mean of general population = 50. 5 points is clinically meaningfully difference Percentiles provide an indication of how the patient's score ranks in relation to the general population. Higher percentile rankings indicate better function/quality of life. 50th percentile is the average of the general population and indicates half of respondents had a worse score. OBJECTIVE MEASURES WITH LEVEL OF FUNCTION: Posture / Alignment R LE Anatomical Alignment Non Weight-Bearing: (forefoot eqinus) L LE Anatomical Alignment Non Weight-Bearing: (forefoot eqinus) Gait Gait Observation: Normal currently Plantar Callus Pattern: Right:medial aspect of great toe and met head Left:medial aspect of great toe and met head Supine: ROM: Ankle Dorsiflexion: AROM:WNL Calcaneal eversion: Right: WNL Left: WNL Hallux dorsiflexion: Open chain right: >65 left: >65 Closed chain right: >9 left: >9 Alignment: Rest: Medial arch appearance: Right:Average Left:Average Equinus: Right:forefoot Left:forefoot Prone: Alignment: Subtalar neutral: Right: rearfoot:0 degrees forefoot:4 degrees varus Left: Rearfoot:0 degrees Forefoot:2 degrees varus First Ray Position: Right: pf Left: pf First Ray Mobility: Right: semi-rigid Left:semi-rigid WEIGHT BEARING: Alignment: Rest: Medial arch appearance: Right: Average Left Average Calcaneal stance position: Right: everted Left everted Knee position: Right: Straight Left Straight Subtalar Neutral: Medial arch appearance: Right Average Left:Average Calcaneal stance position: Right: everted Left: inverted Forefoot position: Right: flat on ground Left: flat on ground Knee position: Right: straight Left straight Mobility: Hallux dorsiflexion Closed chain: Right: >9 Left >9 Midtarsal Mobility: (navicular drop) Right: norm 6-8mm Left:norm 6-8mm Rearfoot excursion: Right:4-6 norm Left: 4-6 norm FUNCTIONAL EVALUATION: Balance(SL): ability/quality Right: unsteady Left: unsteady Balance Test: Wedge testing did not significantly improve balance or biomechanics and therefore custom foot orthotics will not include any forefoot or rearfoot posting. Gait Assessment: Walking: normal Running: not applicable Orthotic Design Request Shoe size: 10. Weight:193 pounds. Orthotic (shell): Sport Polypropylene 1/8 Plate Specifications: Heel Cup Low (12mm), Device Width Bisect 1st Posting: none Additions: Met Pad Right soft 1/8 and Left soft 1/8 Padding: Type: Poron STD Thickness:1/8 Padding Length:on device only Accommodations: none Top Covers: Material: leatherette STD Length:on device only to METs Classification of foot type: Forefoot equinus Education: Education Learning Preferences: Demonstration, Explanation, Performance, Printed Materials Barriers: None Learning/educational needs: Procedure / Surgery, Plan of Care, Brace Fit, Gait Training, Body Mechanics, Lifestyle changes Education Provided: Yes, see treatment interventions for education provided Education Provided To: Patient Education Mode/Type: Demonstration, Explanation/Discussion, Literature/Printed Materials, Performance Response to Education/Teach Back: States/Identifies, Return Demonstration, Requires Review/Additional Education TREATMENT: PT Treatment Interventions: Orthotic Mgmt/Train (Initial) Evaluation Orthotics Management and Training: Skilled Intervention: Clinical knowledge and skills required for custom orthotic fabrication and wearing schedule Patient/Family/Caregiver Education: Precautions, purpose and use of orthosis Wearing schedule explained to pt in detail Discussed management of any symptoms related to wearing the orthosis Billing * Evaluation Moderate Complexity: 1 Unit Orthotic Mgmt/Train (Initial) Treatment Minutes: 30 Skilled Treatment Time Minutes (timed and untimed codes): 60 Total Session Time (minutes): 60 Session Start Time : 1120 Session Stop Time : 1220 Harry Faustin PT documented in this encounterCh[facility]10-17-2023 History of Present illness Narrative* Reji Morgan, PT - 01/13/2023 3:25 PM EDT Episode Visit Count: 5 Therapist That Will Accept/Oversee The Plan Of Care: Reji Morgan PT. Start of Care Date: 12/04/22 Onset Date: 11/14/22 (Reports multiple years, however last flare up when she saw Dr. Hughes.) Plan of Care Certification Date: 01/13/23 Next Certification Due Date: 02/17/23 Patient Identified by Name and Date of : Yes REHABILITATION AND SPORTS THERAPY PHYSICAL THERAPY PROGRESS REPORT PLAN OF CARE UPDATE: Assessment: Lucas Astudillo demonstrates and reports moderate improvement in sleeping, dressing & donning socks, bed mobility, strength, hip motion and overall function. She has progressed toward goals. Patient continues to present with impairments in ADL's/IADL's, gait, independence in exercise, joint mobility, overall function, range of motion, strength, symptom management, and tissue tenderness that interfere with standing, physical activities, recreational activities (R Side lying.) . Current prognosis is Good due to: current objective clinical presentation, good overall health status, within-session changes, good support system/ coping skills .She will benefit from continued skilled therapy services to meet the updated goals for this plan of care as noted below. Goals for Episode of Care: updated on 01/13/23 Goals for Episode of Care: created on 12/04/22 through 02/10/23 [place] in home exercise program. (MET) Patient will decrease pain rating by 2 points to meet minimal clinical important difference for numeric pain rating scale. (Progressing Towards) Patient will demonstrate increase in RLE strength to 5/5 and pain-free during manual muscle testing in order to improve function for basic self-care tasks, home management tasks, leisure / recreation skills, light functional tasks, and prior functional tasks. (Progressing Towards) Perform getting dressed/putting the right lower extremity in clothing with decreased report of symptoms/pain in 6 weeks. (MET) Perform push mowing with a decrease in pain/symptoms. (Progressing Towards) Restore pain-free gross lumbar ROM to WNL to allow for return to prior functional tasks. (Progressing Towards) Sleep through night without pain/symptoms. (Currently MET) Patient Goals: Reduce pain and return to PLOF. Planned Interventions, Frequency, and Duration: 1x/week, 4 weeks Total Number of Visits Planned: 4 Patient to be seen for Therapeutic exercise (96839), Neuromuscular re-education (53126), Manual therapy (41617), Therapeutic activities (76391), Self-longterm management (57059), Patient/Family/Caregiver Education, Body Mechanics Training, General Conditioning SUBJECTIVE: Patient reports she had been doing good recently, the last couple of weeks, the pain was there but it was really calm per patient - however today she is having R low back/buttocks pain down the lateral aspect of the RLE down to the foot. Functional Limitations: standing, physical activities, recreational activities (R Side lying.) Pain: Pain Pain Level: 3 Pain Location: Low Back/Lumbar Spine - Right, Leg - Right Description: Dull Frequency: Continuous Post Treatment Pain Post Treatment Pain Level: Better Post Treatment Pain Location: Low Back/Lumbar Spine - Right, Leg - Right Post Treatment Symptoms: Feels a lot better than when I came in. PROMIS Scales Higher is Better 01/10/2023 12/01/2022 Phys Func - Score 41 (mild dysfunction) 46 (within normal limits) Phys Func - Percentile 18 % 34 % Self-Eff Symptom - Score 41 (Average) 46 (Average) Self-Eff Symptom - Percentile 18 % 34 % T-scores: mean of general population = 50. 5 points is clinically meaningfully difference Percentiles provide an indication of how the patient's score ranks in relation to the general population. Higher percentile rankings indicate better function/quality of life. 50th percentile is the average of the general population and indicates half of respondents had a worse score. OBJECTIVE MEASURES WITH LEVEL OF FUNCTION: Spine Observations R Lumbar Spine Palpation Tenderness: Paraspinals, Sacral base, PSIS (posterior superior iliac spine) Lumbar Spine AROM Lumbar Flexion: Normal Lumbar Extension: Minimal limitation, Pain during movement Lumbar R Side-Bend: Minimal limitation Lumbar L Side-Bend: Normal Lumbar R Rotation: Normal Lumbar L Rotation: Normal LE Strength R LE Strength: Grossly 5/5 no asymmetrical myotomal weakness noted. Limitations below... L LE Strength: Grossly 5/5 no asymmetrical myotomal weakness noted. R Hip Flexion (L2): 4+/5 R Hip ABduction: 4+/5 Special Tests - Hip and Spine SLR Test: Right Negative, Left Negative TREATMENT: Therapeutic Exercise: 1: *LTR: 1x10, 2-[address] 2: *Hip ADD Ball Squeeze: 1x15, 5-sec hold. 3: *B Sidelying Clamshells: 1x15. 4: *TA Bracing Holds: 1x15, 5 hold. 5: *TA Bracing with Alt. Hip Flexion: 2x15. ea. 6: Supine Frog Bridges: 1x15. 7: *Re-education and discussion of exercises, importance and purpose of; new handout provided. 8: *Progress Check. Skilled Intervention: Patient was educated in proper exercise technique and purpose for exercises. Reviewed and educated patient on additions/changes for home exercise program as above (*). Skilled judgment was used in selection of appropriate interventions. Provided written instruction for home exercise program to facilitate proper performance and compliance. Correct performance of therapeutic exercises was facilitated with verbal, visual, and tactile cuing. Manual Therapy: 1: [place] Distraction: Pull to patient tolerance. 2: Manual R Lateral Hip Distraction with belt: Pull to patient tolerance. Skilled Intervention: Manual skills to improve joint mobility, ROM, and decrease pain. Utilized anatomy knowledge of the therapist, and assessment of patient's response to intervention. Billing Therapeutic Exercise Treatment Minutes: 30 Manual TherapyTreatment Minutes: 23 Skilled Treatment Time Minutes (timed and untimed codes): 53 Total Session Time (minutes): 53 Session Start Time : 1529 Session Stop Time : 1622 Reji Morgan PT documented [facility] Miscellaneous Notes* Telephone Encounter - Vanessa Hughes - 01/07/2023 12:02 PM EDT Pt scheduled with Dr. Kovacs 02/17 Vanessa Hughes January 07, 2023 12:02 PM * Telephone Encounter - Jan Arrieta LPN - 01/07/2023 10:44 AM EDT Please assist pt with scheduling vasular appt. Jan Arrieta LPN * Telephone Encounter - Mavis Hughes PA-C - 01/06/2023 6:10 PM EDT Telephone on 01/06/23 CONSULT TO VASCULAR MEDICINE *Canceled* CONSULT TO VASCULAR SURGERY Symptomatic varicose veins of both lower extremities (primary encounter diagnosis) Tomasz Cee PA-C * Telephone Encounter - Donna Edwards RN - 01/06/2023 10:07 AM EDT Patient calls to request a referral for her varicose veins. She reports that she wears support hosebut they don't seem to help. She said the veins feel itchy and tingly like a spider is crawling upher legs. Patient is wanting to stay local. Asking if Tomasz would have any recommendations. Donna Edwards RN documented in this encounterCh[facility]10-10-2023 Miscellaneous Notes* Letter - Coordinator, Mammography - 01/06/2023 1:42 PM EDT January 07, 2023 PID: [id number] Lucas Astudillo [address] [place] [address] Dear Ms. Astudillo, We are pleased to inform you that the results of your recent breast imaging exam on 01/05/2023 are normal. Your mammogram demonstrates that you have dense breast tissue, which could hide abnormalities. Dense breast tissue, in and of itself, is a relatively common condition. Therefore, this information is not provided to cause undue concern; rather, it is to raise your awareness and promote discussion with your health care provider regarding the presence of dense breast tissue in addition to other riskfactors. Early detection of cancer is very important. We also understand recommendations regarding breast cancer screening are controversial. Please discuss with your primary care provider which strategy is best for you and whether a mammogram is right for you. Your imaging studies and report will be kept on [facility] at [facility] as part of your permanent medical record and are available for your continuing care. Thank you for allowing us to help in meeting your health care needs. Sincerely, Dr. Shoemaker Interpreting Radiologist [facility] (Normal over 40) documented in this encounterChill[facility]10-09-2023 History of Present illness Narrative* Tameka Tomas Mammo Tech - 01/05/2023 11:10 AM EDT Radiology Service Progress Note PATIENT NAME: Lucas Astudillo DATE OF SERVICE: January 05, 2023 TIME: 10:49 AM PATIENT IDENTITY VERIFICATION COMPLETED USING TWO (2) IDENTIFIERS: Name and Date of confirmedby patient verbally. FALL SCREENING: Has the patient had 2 falls in the last year or 1 fall with injury or currently using an Ambulatory Assistive Device (Walker, Cane, Wheelchair, Crutches, etc.)? No PATIENT GENDER DATA: Female. status: : No status: NO. PATIENT RELEVANT IMPLANT DATA REVIEWED: Not Applicable RADIOLOGY DEPARTMENT: Mammography PERIPHERAL IV DATA: Not applicable SIGNED BY: Tameka Tomas Manjrasoft Jesse January 05, 2023 10:49 AM documented in this encounterChillic[facility]09-21-2023 Instructions* Patient Instructions* Jt Ramachandran - 12/18/2022 8:50 AM EDT Images from the original note were not included. What is Plantar Fasciitis? Plantar fasciitis is the most common cause of heel pain. The pain is caused by inflammation of the plantar fascia. If you strain your plantar fascia, it becomes weak, swollen and irritated (inflamed). The resulting pain may be isolated in the heel or may appear at different points on the bottom of the foot, from time to time; it may occur in one foot or both. Some think that plantar fasciitis pain is caused by irritation of nerves from tissue swelling or inflammation, but it is debatable. Plantar fasciitis is common in middle-aged people; it also occurs in younger people who are on their feeta lot, such as athletes or soldiers. The plantar fascia is a strong band of connective tissue that extends from the base of the toes, along the bottom of the foot, to the bottom of the heel (calcaneous bone); it acts like a bowstring tomaintain the arch of the foot. What are heel spurs? The inflammatory reaction of the heel bone may produce spike-like projections of new bone, called heel spurs. The spurs sometimes show on X-rays. They neither cause the initial pain nor do they causethe initial problem. However, later, having to walk on spurs may cause sharp pain. What causes plantar fasciitis? Plantar fasciitis is caused by straining the ligament that supports your arch. Repeated strain can cause tiny tears in the ligament. These lead to pain and swelling. During walking, the plantar fascia experiences tension up to twice the body weight with each step. While this is normal, those who spend much time on their feet, such as nurses, head waiter/waitress banquet/waiters, andmail carriers, often experience plantar fasciitis. Athletes involved in tennis or other racquet sports, race walking, jogging or running also show a higher incidence of plantar fasciitis than do those participating in other activities. Thus, it's clear that plantar fasciitis is predominantly an overuse injury. In fact, any activity that results in prolonged tension and stress on the plantar fascia may cause plantar fasciitis. It is possible that changes in footwear may play a role in causing plantar fasciitis, no matter what activity is occurring. Those who are overweight are prone to plantarfasciitis. This is true even for sedentary people who get little physical activity. Abnormalities of the foot and ankle joints may predispose some individuals to development of plantar fasciitis (spec ifically, over pronation of the subtalar joint). Contributing Factors * Flat feet * Toe running, hill running * Sudden weight increase * High-arched, rigid feet * Soft terrain, e.g. running on sand * Obesity * Pronated feet (rolled inward) * Sudden increase in activity* Family tendency * Poor shoe support * Worn out or poorly fitted shoes * Increasing age * Walking,standing or running for long periods of time, especially on hard surfaces. How is the Injury Treated? Rest Your Feet: Limit, or if possible, stop activities that are causing your heel pain. Try to avoid running or walking on hard surfaces, such as concrete. Use pain as your guide. If your foot is toopainful, rest it. Ice: Ice the sore area for 30 to 60 minutes, several times a day, to reduce inflammation and relieve pain. Apply a plastic bag of crushed ice (or a bag of frozen peas) over a towel. Ice the sore areafor 15 minutes after activity/exercise. Application of heat is not generally recommended, as heat ex pands the bone and connective tissue, perhaps exerting greater pressure on nerves and thereby increasing pain. If heat is used, follow it with ice. Medication: If your condition developed recently, anti-inflammatory/analgesic medication, combined with heel pads (see below) may be all that is necessary to relieve pain and to reduce inflammation. If no pain relief has occurred after 2- 3 weeks, however, your doctor may inject either cortisone or local anesthetic directly into the tender area. Exercises: Do simple exercises, such as calf stretches and towel stretches (see below) several times a day, especially when you first get up in the morning. These can help your ligament become more flexible and strengthen the muscles that support your arch. Shoes: Poorly fitting shoes can cause plantar fasciitis. The best type of shoe to wear is a good walking or running shoe with good shock absorption and excellent arch support. You should choose the one that fits the best. [place] with your athletic shoes to find a pair that is comfortable and causes fewer symptoms. Put your shoes on as soon as you get out of bed; going barefoot or wearing slippers may make your pain worse. Good brands include (but are not limited to): New Balance, Asics, Saucony, SAS and Merrel s. Taping: Your doctor may tape your foot to maintain the arch. This takes some of the tension off theplantar fascia. Weight Loss: If your weight is putting extra stress on your feet, your doctor may encourage you to try a weight-loss program. Orthotics: An orthotic insole is a molded piece of rubber, plastic, or other material that you insert into your shoe. It corrects the alignment of your foot and cushions your foot from excessive pounding. These may be prescription or non-prescription. Prescription orthotics are custom-fitted and may fit better and control pain better, but are very expensive. Night Splints: A night splint holds the foot with the toes pointed up and the ankle at a 90-degree angle. This position applies a constant, gentle stretch to the plantar fascia. Corticosteroid Shots: Steroids may be injected into the tender area to reduce inflammation. REHAB Exercises to stretch the plantar fascia, the calf muscles, and the Achilles tendon. Tightness of the muscles of the calves may contribute to plantar fasciitis, so stretching the calf muscles is important to rehabilitation, as is stretching of the plantar fascia itself. Plantar fascial stretches Assisted Dorsiflexion/Plantar Fascia Stretch: Sit on the floor or ground, barefoot, with both legs outstretched. Use a towel or elastic band and wrap it around the ball (and not the toes) of the affected foot. Use the towel or elastic band to provide resistance to upward movement of the forefoot. Pull foot upward (toward your body) with the help of the elastic band or towel, and then return to the starting position. Ten repetitions are recommended. Perform the sequence at least three times a day. Alternate Plantar Fascia Stretch: Sit upright in a chair, barefoot. Place the ankle of the affectedfoot on your opposite knee. Using the same hand as the affected foot, reach across and grab the toes. Flex the ankle toward and pull the toes toward the kohler. To test the stretch, place the thumb of your hand on the bottom of the foot. You should be able to feel the cord-like plantar fascia, running the length of the foot. Hold the stretch for a count of 10, then relax. Repeat 10 times. Do the sequence at least three times a day. Achilles/Calf Stretches Strengthening the muscles of the calves may contribute to successful rehabilitation of plantar fasciitis, as well as prevent reoccurrence. The exercises below will help strengthen the calf muscles. Calf and Achilles Tendon Stretch (Gastrocnemius Stretch): Face a wall, standing an arm's length away. Place one foot back. Place both hands on the wall. Bend the elbows and knee of your forward leg, keeping the heel of the backward foot on the floor and keeping your body straight (aligned), until your forehead nearly touches the wall, or until significant stretch is felt in the muscles of the calf of the backward leg. Hold this position for 10 to 15 seconds. Extend elbows (straighten your arms and stand upright again) and maintain this position for 10 seconds. Repeat this cycle 15 to 20 times. Switch legs and repeat the exercise. documented in this encounterCh[facility]09-21-2023 History of Present illness Narrative* Jt Ramachandran - 12/18/2022 8:43 AM EDT Images from the original note were not included. Initial Podiatric Office Visit: Chief Complaint: This 67 year old female who presents with chief complaint:left heel pain HPI Patient presents to clinic for evaluation of left foot Complains of left heel that has been present for many years. Now that she no longer works, the painis not as bad. Patient uses custom orthotics and this does help. She is requesting new order for orthotic. She also feels a little pebble on both arches. PAIN EVALUATION 12/18/2022 0823 Pain Level: 2 Pain Location: Foot-Left Description: Other: See comment tender Duration Units: Years Frequency: Intermittent Intervention/Comfort measure: Reposition;Relaxation Hemoglobin A1C (%) Date Value 07/26/2020 5.4 01/13/2020 5.4 PCP: Eugenio Peralta MD PAST MEDICAL HISTORY Diagnosis Date Acute gastritis without mention of hemorrhage Allergic rhinitis due to other allergen Arthritis Cancer (HCC) Deviated septum Dyskinesia of esophagus GERD (gastroesophageal reflux disease) 07/25/2013 Internal hemorrhoids without mention of complication Tinnitus Current Outpatient Medications Medication Sig pantoprazole DR (PROTONIX) 40 mg tablet Take 1 tablet by mouth once daily. pseudoephedrine (SUDAFED) 30 mg tablet Take 1 tablet by mouth every 4 hours as needed. sucralfate (CARAFATE) 100 mg/mL suspension Take 10 mL by mouth four times daily. estradiol (ESTRACE) 0.01 % (0.1 mg/gram) vaginal cream Use small pea sized amount at vaginal opening twice a week. clobetasol (TEMOVATE) 0.05 % cream Apply to affected area 2x/day for 2 weeks, then 1x/day for a week, than 1-3x/week for maintenance. calcium carbonate/vitamin d3(CALCIUM 500 WITH VITAMIN D 500 MG-125 UNIT TAB) Take one(1) tablet twice daily. No current facility-administered medications for this visit. ALLERGIES Allergen Reactions Adhesive Tape-Silic* Rash Per patient developed extensive rash from adhesive monitor sticker after endoscopy Poison Akanksha PAST SURGICAL HISTORY Procedure Laterality Date CARPAL TUNNEL 03/09/2009 Rt wrist COLONOSCOPY FLX DX W/COLLJ SPEC WHEN PFRMD 09/06/2007 COLONOSCOPY FLX DX W/COLLJ SPEC WHEN PFRMD 10/05/2017 Colonoscopy EGD 10/20/2022 EGD TRANSORAL BIOPSY SINGLE/MULTIPLE 09/06/2007 ESOPHAGOGASTRODUODENOSCOPY TRANSORAL DIAGNOSTIC 10/05/2017 EGD LIG/TRNSXJ FLP TUBE ABDL/VAG APPR UNI/BI Tubal ligation NASAL ENDOSCOPY DIAG UNILBILAT 01/20/2015 SKIN BIOPSY HX FAMILY HISTORY Problem Relation Age of Onset Cancer Mother ovarian, had negative genetic testing Coronary Artery Disease Father after 55 Hypertension Father Diabetes Father other (hysterecomy) Sister cervical cancer cells other (Precancerous cervix cells) Sister cancerous cells in uterus per Sharon Ellis CNP other (hysterectomy) Sister half-sister; unknown etiology Diabetes Maternal Grandmother Cancer Paternal Grandmother possibly ovarian or cervical other (abnormal pap) Daughter other (Precancerous cervix cells) Other Niece (hysterectomy) Social History Tobacco Use Smoking status: Never Smokeless tobacco: Never Vaping Use Vaping Use: Never used Substance Use Topics Alcohol use: No Drug use: No REVIEW OF SYSTEMS GENERAL: Negative for Malaise, significant weight loss, fever RESPIRATORY: Negative for cough, wheezing and shortness of breath CARDIOVASCULAR: Negative for chest pain, leg swelling and palpitations GI: Negative for abdominal discomfort, blood in stools or black stools and change in bowel habits : Negative for dysuria, frequency and incontinence MUSCULOSKELETAL: Negative for joint pain or swelling, back pain, and muscle pain. SKIN: Negative for lesions, rash, and itching. HEMATOLOGY/LYMPHOLOGY Negative for prolonged bleeding, bruising easily, and swollen nodes. ENDOCRINE: Negative for cold or heat intolerance, polyuria, polydipsia and goiter. NEURO: negative Physical Exam: Constitutional: Pt is a well developed 67 year old female who is alert, oriented and cooperative Eyes: Following during examination. No redness or drainage. Respiratory: RR normal and nonlabored. Even breathing. No evidence of distress or shortness of breath. Psychology: Patient is engaged during conversation. Normal affect and mood. Does not appear depressed or anxious during encounter. Vascular: Dorsalis pedis and posterior tibial pulses palpable as b/l Capillary Fill time < 5 seconds to digits 1-5 b/l Skin temperature warm to warm proximal to distal b/l Hair growth present to digits Neurological: intact light touch/epicritic sensation b/l intact protective sensation no significant neurological deficits Dermatological: Nails 1-5 b/l appear normal. Webspaces clean and dry 1-4 b/l. Skin appears well hydrated and supple. good color, texture, turgor. No open lesions present. No callosities present. Musculoskeletal/Orthopaedic: Patient has pain to palpation of left plantar heel No palpable soft-tissue fibroma at this time Foot type is pronated structurally AJ ROM is full with knee extended and flexed 1st MPJ is full when loaded and no pain or crepitus are noted with ROM. MTJ, STJ are full and free of pain and crepitus. +5/5 muscle strength dorsiflexion, plantarflexion, inversion, eversion b/l Radiographs: 3 views b/l foot ordered December 18, 2022: I have personally reviewed and interpreted these XR myself: no acute fracture. Plantar heel spur left ASSESSMENT: (M72.2) Plantar fasciitis (primary encounter diagnosis) (M21.41, M21.42) Pes planus of both feet PLAN: 1. Initial Office Visit - A thorough review of the patient's PMH and Podiatric physical exam was completed. 2. Patient advised to perform stretching excercises, icing, and to make appropriate shoe gear changes to include wearing athletic-type shoes with supportive insoles. No barefoot walking. Patient alsogiven written instructions on how to correctly perform the stretching of the achilles tendon/calf st retches, and the heel spur/plantar fasciitis regimen. 3. Patient advised to seek wide, deep toe box, accomodative, comfortable, lace- up, athletic/walkingtype footwear that includes motion control characteristics for support and cushion that need to be worn at all times when weight-bearing. Shoes should be tested for torsional stability as well as proper bending at the toebox rather than at the midfoot. Good quality shoes such as, but not limited to, New Balance or Asics are examples of more proper foot gear. 4. Patient recommended to get custom insoles for proper support of the arch in order to alleviate the tension and stress on the plantar fascia associated with normal daily walking. Patient advised that these modalities used in conjunction with stretching and icing are able to alleviate most symptoms from this condition. 5. If pain persists, could consider injection vs plantar fasciotomy 6. Discussed concenr for soft-tissue fibroma. I do not see any form of soft- tissue mass at this time that is palpable. If mass were to develop, she is to make follow-up. Informed her that if she doeshave small fibroma, it likely is benign. Can treat with inserts. Jt Ramachandran DPM Podiatry [address] [facility] [address] Dept: [phone] Dept * Vicki Valdovinos LPN - 12/18/2022 8:21 AM EDT AMB ROOMING INTAKE FLOWSHEET DATA Pain Pain Level: 2 Pain Location: Foot-Left Description: Other: See comment (tender) Duration Units: Years Frequency: Intermittent Intervention/Comfort measure: Reposition, Relaxation Patient presents with: Left Foot - New, Pain Right Foot - New, Pain Vicki Valdovinos LPN documented in this encounterCh[facility]09-19-2023 History of Present illness Narrative* Reji Morgan, PT - 12/16/2022 2:27 PM EDT Episode Visit Count: 3 Therapist That Will Accept/Oversee The Plan Of Care: Reji Morgan PT. Start of Care Date: 12/04/22 Onset Date: 11/14/22 (Reports multiple years, however last flare up when she saw Dr. Hughes.) Patient Identified by Name and Date of : Yes REHABILITATION AND SPORTS THERAPY PHYSICAL THERAPY TREATMENT NOTE ASSESSMENT: Lucas Astudillo tolerated the session with decreased symptoms, expected muscle soreness, and no issues. She demonstrated improvements in general hip strengthening and stability exercises with an increase in pain/sxs. The patient will continue to benefit from ongoing skilled physical therapy to progress toward set goals. PLAN FOR NEXT VISIT: Manual PRN; progress ther-ex as able for R SI pain. SUBJECTIVE: Patient reports the last three days she was in increased pain; was having L low back spasms down the buttocks and lower legs; states it was a spasm/aching/pain. Heat was the only thing that relieved it, states HEP seemed to help a little. Denies pain leaving here on Thursday or having thepain Thursday night. Feels a lot better today and achiness is just on the R. Pain: Pain Pain Level: 3 Pain Location: Low Back/Lumbar Spine - Right Description: Aching Frequency: Continuous Post Treatment Pain Post Treatment Pain Level: Better Post Treatment Pain Location: Low Back/Lumbar Spine - Right Post Treatment Symptoms: Feels better following session. OBJECTIVE MEASURES WITH LEVEL OF FUNCTION: Tenderness at R lower paraspinals/upper gluteals near R PSIS. TREATMENT: Therapeutic Exercise: 1: Supine Frog Bridges: 2x10. 2: *R Clamshells: 2x10, PTB. 3: *Hip ABD pull-aparts: 2x10, PTB, 5-sec hold. 4: *Hip ADD Ball Squeeze: 2x10, 5-sec hold. Skilled Intervention: Patient was educated in proper exercise technique and purpose for exercises. Reviewed and educated patient on additions/changes for home exercise program as above (*). Skilled judgment was provided in selection of appropriate interventions. Provided written instruction for home exercise program to facilitate proper performance and compliance. Correct performance of therapeutic exercises was facilitated with verbal, visual, and tactile cuing. Manual Therapy: 1: Long [place] Distraction: Pull to patient tolerance. 2: Manual R Lateral Hip Distraction with belt: Pull to patient tolerance. 3: Manual R Hip IR & ER Mobility. 4: Manual R Adductor and HS Flexibility. 5: Manual STM with lacrosse ball to R paraspinals/upper glutes near R PSIS. Skilled Intervention: Manual skills to improve joint mobility, ROM, and decrease pain. Utilized anatomy knowledge of the therapist, and assessment of patient's response to intervention. Billing Therapeutic Exercise Treatment Minutes: 20 Manual TherapyTreatment Minutes: 24 Skilled Treatment Time Minutes (timed and untimed codes): 44 Total Session Time (minutes): 44 Session Start Time : 1445 Session Stop Time : 1529 Reji Morgan PT [facility] History of Present illness Narrative* Reji Morgan, PT - 12/12/2022 7:00 AM EDT Episode Visit Count: 2 Therapist That Will Accept/Oversee The Plan Of Care: Reji Morgan PT. Start of Care Date: 12/04/22 Onset Date: 11/14/22 (Reports multiple years, however last flare up when she saw Dr. Hughes.) Patient Identified by Name and Date of : Yes REHABILITATION AND SPORTS THERAPY PHYSICAL THERAPY TREATMENT NOTE ASSESSMENT: Lucas Astudillo tolerated the session with decreased symptoms and expected muscle soreness. She demonstrated difficulty with replicating HEP exercises to start. Lucas had decreased symptoms with lateral hip distraction and manual lumbar traction. The patient will continue to benefit from ongoing skilled physical therapy to progress toward set goals. PLAN FOR NEXT VISIT: Progress ther-ex, add frog bridges; manual PRN. SUBJECTIVE: Patient reports achiness down to the low back to the B buttocks area; states compliancewith HEP. Pain: Pain Pain Level: 3 Pain Location: Low Back/Lumbar Spine - Left, Low Back/Lumbar Spine - Right Description: Aching Frequency: Continuous Post Treatment Pain Post Treatment Pain Level: Better Post Treatment Pain Location: Low Back/Lumbar Spine - Right, Low Back/Lumbar Spine - Left Post Treatment Symptoms: Patient states feeling stiff, however decreased pain following session. OBJECTIVE MEASURES WITH LEVEL OF FUNCTION: Patient with pain during supine piriformis stretch this date despite trying to modify several different ways - discontinued on HEP this date. TREATMENT: Therapeutic Exercise: 1: Seated B HS Stretch: 2x30 2: Supine Trunk Rotation Stretch: 3x30 ea. 3: LTR: 2x12, 5sec holds ea. way 4: SKC: 2x30 ea. Skilled Intervention: Patient was educated in proper exercise technique and purpose for exercises. Skilled judgment was provided in selection of appropriate interventions. Correct performance of therapeutic exercises was facilitated with verbal, visual, and tactile cuing. Removal of the the Piriformis Stretch from HEP due to pain this date - will reassess. Manual Therapy: 1: Manual L/S Traction with belt and knees propped on stool, caudal pull with belt to patient tolerance. 2: Manual R Lateral Hip Distraction: Pull to patient tolerance. 3: Manual R Hip IR & ER Mobility. Skilled Intervention: Manual skills to improve joint mobility, ROM, and decrease pain. Utilized anatomy knowledge of the therapist, and assessment of patient's response to intervention. Billing Therapeutic Exercise Treatment Minutes: 20 Manual TherapyTreatment Minutes: 24 Skilled Treatment Time Minutes (timed and untimed codes): 44 Total Session Time (minutes): 44 Session Start Time : 0700 Session Stop Time : 743 Reji Morgan PT documented in this [facility]Ch[facility] History of Present illness Narrative* Reji Morgan, PT - 12/04/2022 9:43 AM EDT Episode Visit Count: 1 Therapist That Will Accept/Oversee The Plan Of Care: Reji Morgan PT. Start of Care Date: 12/04/22 Onset Date: 11/14/22 (Reports multiple years, however last flare up when she saw Dr. Hughes.) Patient Identified by Name and Date of : Yes REHABILITATION AND SPORTS THERAPY PHYSICAL THERAPY EVALUATION PLAN OF CARE: Assessment: Lucas Astudillo presents with diagnosis of R SI Arthritis with L5-S1 grade 1 spondylolisthesis with subsequent, periodic complaints of right lower extremity paresthesias that interferes with standing, stair negotiation, heavy exertion, physical activities, recreational activities, sleeping, bed mobility, dressing (R Sidelying.) . She presents with impairments in ADL's/IADLs, flexibility, gait, independence in exercise, joint mobility, overall function, range of motion, soft tissue healing, strength, symptom management, and tissue tenderness. PROMIS (Patient-Reported Outcomes Measurement Information System) scores were reviewed and physical function domain and self efficacy domain identified as within normal limits. Prognosis for therapy is Good due to: current objective clinical presentation, good overall health status, within- session changes, good support system/ coping skills, Prognosis may be limited due to chronic nature of impairments .She will benefit from skilled therapy services to meet the goals established for this plan of care as noted below. Goals for Episode of Care: created on 12/04/22 through 01/15/23 [place] in home exercise program. Patient will decrease pain rating by 2 points to meet minimal clinical important difference for numeric pain rating scale. Patient will demonstrate increase in RLE strength to 5/5 and pain-free during manual muscle testingin order to improve function for basic self-care tasks, home management tasks, leisure / recreationskills, light functional tasks, and prior functional tasks. Perform getting dressed/putting the right lower extremity in clothing with decreased report of symptoms/pain in 6 weeks. Perform push mowing with a decrease in pain/symptoms. Restore pain-free gross lumbar ROM to WNL to allow for return to prior functional tasks. Sleep through night without pain/symptoms. Patient Goals: Reduce pain and return to PLOF. Planned Interventions, Frequency, and Duration: Current Frequency: 1x/week Duration: 4 weeks Total Number of Visits Planned: 4 Planned Treatment Interventions: Therapeutic exercise (05550), Neuromuscular re- education (05352), Manual therapy (17267), Therapeutic activities (20438), Self- longterm management (06581), Patient/Family/Caregiver Education, Body Mechanics Training, General Conditioning PLAN FOR NEXT VISIT: Assess how HEP went; manual traction and STM to R Low Back/Piriformis; progress ther-ex as able; possible lateral distraction of the R Hip with the belt. Patient demonstrates good understanding of plan of care and treatment. The above goals and plan of care were discussed and agreed upon by patient/family. SUBJECTIVE: Pt. reports 1-2 years of longstanding low back/SI pain; she always knows the soreness/ache is therein the low back (R > L); reports periodically paresthesias down the R Lower leg; complaints withprolonged standing, sidelying on the R side, stair negotiation, getting dressed in the morning - notes lifting the R leg to chest causes her low back pain. Reports prior retiring patient had to navigate the stairs (17) various times throughout the day - thats when her lowback/SI joint started to flare up. Walking helps the low back. Patient Goals: Reduce pain and return to PLOF. Functional Limitations: standing, stair negotiation, heavy exertion, physical activities, recreational activities, sleeping, bed mobility, dressing (R Sidelying.) Prior Level of Function: Independent without limitations Relevant History Past Relevant Medical Conditions: Per review with patient no issues were identified, Comments Relevant Medical Conditions Comments: GERD Employment: Retired Recreation / Current Exercise: Stretches/Walking 20 minutes a day. Intake Information: Prescription present Previous Treatment: Self prescribed exercises, Ice , Heat Falls Interview: No positive findings with falls interview Red Flags Vertebral Fracture Red Flags: Female Vertebral Fracture Clinical Reasoning: Proceed with caution due to the above (1- 2) risk factors Abdominal Aortic Aneurysm Red Flags: Age >60 Abdominal Aortic Aneurysm Clinical Reasoning: Proceed with caution (NEGATIVE Study for AAA.) Cancer Red Flags: History of Cancer, Age >50 or <20 Cancer Clinical Reasoning: Proceed with caution Infection Clinical Reasoning: No identified risk factors. Cauda Equina Syndrome Clinical Reasoning: No identified risk factors. Red Flags - Cervical Cancer Red Flags: History of Cancer, Age >50 or <20 Cancer Clinical Reasoning: Proceed with caution Infection Clinical Reasoning: No identified risk factors. Spine History Symptoms Location at Onset: Back, Buttock Symptoms Since Onset: Worsening Pain is Worse Always: Standing, Prolonged positions Pain is Better Always: Walking Sleep Affected by Pain: Pain keeps from falling asleep, Pain awakens Pain: Pain Pain Level: 2 Pain Location: Low Back/Lumbar Spine - Right Description: Aching Frequency: Continuous Post Treatment Pain Post Treatment Pain Level: Better Post Treatment Pain Location: Low Back/Lumbar Spine - Right, Buttocks - Right Post Treatment Symptoms: Better following traction. PROMIS Scales Higher is Better 12/01/2022 Phys Func - Score 46 (within normal limits) Phys Func - Percentile 34 % Self-Eff Symptom - Score 46 (Average) Self-Eff Symptom - Percentile 34 % T-scores: mean of general population = 50. 5 points is clinically meaningfully difference Percentiles provide an indication of how the patient's score ranks in relation to the general population. Higher percentile rankings indicate better function/quality of life. 50th percentile is the average of the general population and indicates half of respondents had a worse score. OBJECTIVE MEASURES WITH LEVEL OF FUNCTION: Spine Observations R Lumbar Spine Palpation Tenderness: Paraspinals, Quadratus Lumborum, PSIS (posterior superior iliac spine), Sacral base, Piriformis, Spinous process Sensation - Lumbar Sensation: Grossly Intact Lumbar Spine AROM Lumbar Flexion: Normal Lumbar Extension: Minimal limitation, Pain during movement Lumbar R Side-Bend: Minimal limitation, Pain during movement Lumbar L Side-Bend: Normal Lumbar R Rotation: Normal Lumbar L Rotation: Normal LE Strength R LE Strength: Grossly 5/5 no asymmetrical myotomal weakness noted. Limitations below... L LE Strength: Grossly 5/5 no asymmetrical myotomal weakness noted. R Hip Extension: 4+/5 R Hip Flexion (L2): 4+/5 (slight pain with R Hip Flexion) R Hip ABduction: 4/5 R Hip External Rotation: 4+/5 Special Tests - Hip and Spine Hip and Spine Special Tests: SI Cluster Tests, SLR Test, CLARISSE Test SLR Test: Right Negative, Left Negative CLARISSE Test: Right Positive, Left Negative (R Positive, patient very apprehensive d/t pain during initial ER movement.) Thigh Thrust Test: Right Positive SI Distraction Test: Right Negative SI Compression Test: Right Positive Sacral Thrust: Right Positive Pelvic Torsion (Gaenslen's): Right Positive Education: Education Learning/educational needs: Health promotion, Safety, Home exercise program, Plan of Care, Changes in Plan of Care, Posture, Body Mechanics TREATMENT: PT Treatment Interventions: Therapeutic Exercise, Manual Therapy, Self-Prison Management Evaluation Therapeutic Exercise: 1: *SKC: 1x30 ea. 2: *DKC: 2x30 3: *LTR: 1x10, 2-[address] (Educated to go less to the R due to slight increase in pain.) 4: *Supine Bridges: 2x10. 5: *Seated HS Stretch: 1x30 6: *R Piriformis Stretch: 2x30 (Supine, knee to opp shoulder.) Skilled Intervention: Patient was educated in proper exercise technique and purpose for exercises. Reviewed and educated patient on additions/changes for home exercise program as above (*). Skilled judgment was provided in selection of appropriate interventions. Provided written instruction for home exercise program to facilitate proper performance and compliance. Correct performance of therapeutic exercises was facilitated with verbal, visual, and tactile cuing. Manual Therapy: 1: Long [place] Distraction: Pull to patient tolerance. 2: Manual L/S Traction with belt and knees propped on stool, caudal pull with belt to patient tolerance. Skilled Intervention: Manual skills to improve joint mobility, ROM, and decrease pain. Utilized anatomy knowledge of the therapist, and assessment of patient's response to intervention. Self-Prison Management: 1: *Discussion and education about previous radiograph imaging and overall impression and how it relates to her current functional limitations. 2: *Discussion and education about anatomy and physiology regarding the spine and musculature around the spine/pelvis/buttocks. Education on innomimate movement. Edcuation on possible nerve related paresthesias possibly being related to spondylolithesis vs. true sciatica vs. sciatic trapping via the piriformis. Education on possible diagnosis, role of therapy and how we can address her current deficits. 3: * Education of POC & HEP. Educated patient on how can replicate long axis distraction at home for continued relief of sxs. Skilled Intervention: Skilled judgment in the selection of proper modification for activity of daily living/home management based on clinical presentation, deficits, and needs. Reviewed patient specific diagnosis in relation to activities of daily living/home management. Activity progression based on professional judgement. Billing * Evaluation Low Complexity: 1 Unit Therapeutic Exercise Treatment Minutes: 10 Manual TherapyTreatment Minutes: 14 Self-Care/Home Management Treatment Minutes: 14 Skilled Treatment Time Minutes (timed and untimed codes): 53 Total Session Time (minutes): 53 Session Start Time : 941 Session Stop Time : 1034 Reji Morgan PT documented in this encounterCh[facility] History of Present illness Narrative* Jose Carlos Schaffer RT(R) - 12/03/2022 10:00 AM EDT Radiology Service Progress Note PATIENT NAME: Lucas Astudillo DATE OF SERVICE: December 03, 2022 TIME: 10:03 AM PATIENT IDENTITY VERIFICATION COMPLETED USING TWO (2) IDENTIFIERS: Name and Date of confirmedby patient verbally. FALL SCREENING: Has the patient had 2 falls in the last year or 1 fall with injury or currently using an Ambulatory Assistive Device (Walker, Cane, Wheelchair, Crutches, etc.)? No PATIENT GENDER DATA: Female. status: : No status: NO. PATIENT RELEVANT IMPLANT DATA REVIEWED: Not Applicable RADIOLOGY DEPARTMENT: Bone Density PERIPHERAL IV DATA: Not applicable SIGNED BY: RT Charis(R) December 03, 2022 10:03 AM documented in this encounterCh[facility]09-06-[facility]23 History of Present illness Narrative* Daisy Kasper RDMS - 12/03/2022 8:30 AM EDT Radiology Service Progress Note PATIENT NAME: Lucas Astudillo DATE OF SERVICE: December 03, 2022 TIME: 8:51 AM PATIENT IDENTITY VERIFICATION COMPLETED USING TWO (2) IDENTIFIERS: Name and Date of confirmedby patient verbally. FALL SCREENING: Has the patient had 2 falls in the last year or 1 fall with injury or currently using an Ambulatory Assistive Device (Walker, Cane, Wheelchair, Crutches, etc.)? No PATIENT GENDER DATA: Female. status: : No status: NO. PATIENT RELEVANT IMPLANT DATA REVIEWED: Not Applicable RADIOLOGY DEPARTMENT: Ultrasound PERIPHERAL IV DATA: Not applicable SIGNED BY: Daisy Kasper RDMS T December 03, 2022 8:51 AM documented in this encounterChillic[facility]08-30-2023 History of Present illness Narrative* Erendira Rivera - 11/26/2022 12:17 PM EDT Bilateral Foot documented in this encounterChillic[facility]08-28-2023 History of Present illness Narrative* Zoë Linder - 11/24/2022 11:59 AM EDT POPULATION HEALTH NAVIGATION OUTREACH Action/[facility] Support: Called pt to schedule an appt in Pain Management. m for pt to call [phone] for scheduling. Patient Identified by Name and : NO Outreach Outcome/Action Unable to reach patient: Left message Did you use a PCP flex slot to schedule this appointment? No Reason for Outreach Care Gap or Scheduling/Wellness visits Payer: Payor: O MEDICARE / Plan: [employer] HMO / Product Type: HMO / Care Gap Reviewed:: Specialty Scheduling Reminder: Reminder note to check Health Maintenance for items below Health Maintenance items due: MAMMOGRAM due on 01/02/2023 Navigation Signature: Zoë Linder November 24, 2022 11:59 AM documented in this encounterChillic[facility]08-24-2023 Telephone encounter Note * Telephone Encounter - Giovanna Ling - 11/20/2022 3:23 PM EDT Patient is scheduled [facility] Miscellaneous Notes* Telephone Encounter - Giovanna Ling - 11/20/2022 3:23 PM EDT Patient is scheduled * Telephone Encounter - Mavis Hughes PA-C - 11/20/2022 12:08 PM EDT Telephone on 11/19/22 CONSULT TO PHYSICAL THERAPY Arthritis of right sacroiliac joint (primary encounter diagnosis) Tomasz Mace PA-C * Telephone Encounter - Jan Arrieta LPN - 11/19/2022 9:17 AM EDT See lumbar xray result note- provider recommended PT or pain mgmt. Jan Arrieta LPN * Telephone Encounter - Agnes La - 11/19/2022 9:07 AM EDT Patient needs a physical therapy consult placed to schedule. Please review and advise. documented in this encounterChillic[facility]08-24-2023 Telephone encounter Note * Telephone Encounter - Mavis Hughes PA-C - 11/20/2022 12:08 PM EDT Telephone on 11/19/22 CONSULT TO PHYSICAL THERAPY Arthritis of right sacroiliac joint (primary encounter diagnosis) ThanksTomasz PA-C [facility] Telephone encounter Note* Telephone Encounter - Jan Arrieta LPN - 11/19/2022 9:17 AM EDT See lumbar xray result note- provider recommended PT or pain mgmt. Jan Arrieta LPN [facility] Telephone encounter Note* Telephone Encounter - Agnes La - 11/19/2022 9:07 AM EDT Patient needs a physical therapy consult placed to schedule. Please review and advise. [facility] History of Present illness Narrative* Ivis Pelayo, RT(R) - 11/14/2022 11:30 AM EDT Radiology Service Progress Note PATIENT NAME: Lucas Astudillo DATE OF SERVICE: November 14, 2022 TIME: 11:24 AM PATIENT IDENTITY VERIFICATION COMPLETED USING TWO (2) IDENTIFIERS: Name and Date of confirmedby patient verbally. FALL SCREENING: Has the patient had 2 falls in the last year or 1 fall with injury or currently using an Ambulatory Assistive Device (Walker, Cane, Wheelchair, Crutches, etc.)? No PATIENT GENDER DATA: Female. status: : No status: NO. PATIENT RELEVANT IMPLANT DATA REVIEWED: Not Applicable RADIOLOGY DEPARTMENT: General X-ray: Exam(s) Completed: Spine X-Ray(s): Lumbar AP / LAT / L5-S1 PERIPHERAL IV DATA: Not applicable SIGNED BY: RT Brianna(R) November 14, 2022 11:24 AM documented in this encounterChillicothe [facility]08-18-2023 Instructions* Patient Instructions* Mavis Hughes PA-C - 11/14/2022 11:05 AM EDT HEALTH MAINTENANCE: Your Body mass index is 31.15 kg/m . (Target BMI: 19-25) Regular aerobic exercise, low fat diet, and periodic exams are recommended Living Will & Medical Power of [employer]ing [employer] Operator recommended Periodic Pap smear per risk profile. Mammogram recommended yearly. Colon cancer screening by age 50 & every 5-10 years. Calcium intake of 1200-1500mg elemental calcium per day and 1,000-2,000 IU of Vitamin D3/cholecalciferol daily. Bone mineral density (by age 65 or sooner if other risk factors for osteoporosis). IMMUNIZATIONS: TD at age 50 or every 10 years Pneumovax (between ages 50-65) Recommend consideration for Zostavax (shingles vaccine) in women age 60 and older. Yearly flu vaccine in the fall for those 50 and older LABS: Thyroid screening every 5 years after age 50 Fasting blood sugar every 3 years after age 45 Fasting cholesterol every five years after age 45 BONE MINERAL DENSITY PATIENT INSTRUCTIONS Bone mineral density testing measures the amount of calcium in certain parts of your bones. This information determines how strong your bones are. The test is used to detect osteoporosis, a disease in which the bone's mineral content and density are low, increasing a person's risk of fractures. Thelumbar spine (lower back) and the hip are the skeletal sites usually examined. For the test, remember that: 1. You cannot take this test if you are . 2. Eat a normal diet on the day of the test. 3. Take your medications as you normally would. 4. DO NOT take calcium supplements (such as Tums) for 24 hours before the test. 5. On the day of the test, leave valuables (jewelry or credit cards) at home. 6. The test should be performed prior to oral, rectal or IV contrast studies, or at least 7 days after any of these studies. For the test, you may be asked to wear a hospital gown. You will lie on your back, on a padded table, in a comfortable position. Generally, you can resume your usual activities immediately. documented in this encounterChillicothe [facility]08-18-2023 History of Present illness Narrative* Mavis Hughes PA-C - 11/14/2022 10:00 AM EDT 67 year old female with c/o well visit, BP check, last visit with [place] 07/26/2020lydiase Maya Astudillo is a 67 year old female here for a Medicare wellness visit. Health Risk Assessment In general, health is: Good Concerns with balance: Not at all Concerns with teeth or dentures: Not at all Concerns with sexual function: Not at all [place] anxious, stressed, angry, irritable, lonely, isolated, or had thoughts of hurting themself: Not at all Has little interest or pleasure in doing things: Not at all Bothered by feeling down, depressed, or hopeless: Not at all Needs help with grocery shopping, cooking, housework, bathing, grooming, dressing, eating, sitting or standing, walking, using the toilet, handling finances, taking medications, using the telephone, or driving: No Following safety precautions in the home environment and vehicle: removed throw rugs from floors, installed grab bars in the bathroom, handrails in stairwells, having adequate lighting, wearing seatbelt at all times?: Yes Smokes cigarettes, vapes, or chew tobacco: No Eats healthy foods including fruits, vegetables, whole grains, and fiber-rich foods: Several days Number of days per week engages in exercise: 2 days Average alcohol consumption: Never Current Providers Specialists: I have reviewed specialist-related care of the patient in the medical record. Medical/Family history review Reviewed and updated problem list, medical/surgical/family/social history, medications, and allergies. Opioid use review Patient is not currently using opioids. Depression screening Depression Screening PHQ-2 Score 11/14/2022 0 Depression screening tool completed and reviewed. Based on score and interview, patient is not at risk for depression. Screening tool discussed with patient, and I recommended no further interventionat this time. Cognitive screening Mini Cog Score: Score: 5 Functional Observation Was the patient's timed Up & Go test unsteady or ? 12 seconds? No Advance Care Planning End of Life planning discussed, including patient's advanced directive wishes: Yes Measurements BP 120/70 Pulse 67 Resp 16 Wt 193 lb (87.5kg) SpO2 97% LMP 09/17/2008 Visual acuity (required for Welcome to Medicare): follows with optometry/ophthalmology Hearing Evaluation: known healing loss, see ENT Additional concerns: Wants recheck on ear 11/01/2022 In [facility] for sore throat and ear pain. Negative Strep test. Provider identifies serous otitis and placed her on Augmentin. Had a lof of stomach upset and diarrhea. Notes right middle finger sticking, saw Dr. Churchill a few years ago, offered to do surgical release She declined but finger worsening Varicose veins in lower are bothersome, aching, feels like a fly crawling at times. No hx of blood clots Essential hypertension (primary encounter diagnosis) Current meds: none Patient is compliant with meds n/a Monitors bp at home: No. Denies side effects: N/A. Chest pain: No. Dyspnea: No. Edema: No. Palpitations: No. Syncope: No. Headache: No. Dizziness: No. Last 3 Encounter BP Readings: Date: BP: 11/14/2022 120/70 11/01/2022 132/80 10/28/2022 122/88 Last 2 Encounter Wt Readings: Date: Wt: 11/14/2022 87.5 kg (193 lb) 11/01/2022 87.7 kg (193 lb 6.4 oz) Component Latest Ref Rng & Units 01/13/2020 11/13/2021 WBC 3.70 - 11.00 k/uL 4.97 4.24 RBC 3.90 - 5.20 m/uL 4.81 4.83 Hemoglobin 11.5 - 15.5 g/dL 14.0 13.7 Hematocrit 36.0 - 46.0 % 44.7 44.3 MCV 80.0 - 100.0 fL 92.9 91.7 MCH 26.0 - 34.0 pg 29.1 28.4 MCHC 30.5 - 36.0 g/dL 31.3 30.9 RDW-CV 11.5 - 15.0 % 13.4 13.7 Platelet Count 150 - 400 k/uL 177 168 MPV 9.0 - 12.7 fL 11.6 11.6 Neut% % 62.0 61.1 Abs Neut (ANC) 1.45 - 7.50 k/uL 3.07 2.59 Lymph% % 30.4 30.4 Abs Lymph 1.00 - 4.00 k/uL 1.51 1.29 [place]% % 5.6 5.7 Abs [place] <0.87 k/uL 0.28 0.24 Eosin% % 1.6 2.1 Abs Eosin <0.46 k/uL 0.08 0.09 Baso% % 0.4 0.5 Abs Baso <0.11 k/uL <0.03 <0.03 Immature Gran % % 0.2 IMMATURE GRANS (ABS) <0.10 k/uL <0.03 NRBC /100 WBC 0.0 Absolute nRBC <0.01 k/uL <0.01 <0.01 DTYPE Auto Nucleated Reds 0 /100 WBC 0.0 Diff Type Auto Diff Protein, Total 6.3 - 8.0 g/dL 7.6 7.3 Albumin 3.9 - 4.9 g/dL 4.4 4.2 Calcium 8.5 - 10.2 mg/dL 9.6 9.7 Bilirubin, Total 0.2 - 1.3 mg/dL 0.3 0.4 Alkaline Phosphatase 34 - 123 U/L 71 73 AST 13 - 35 U/L 23 20 Glucose 74 - 99 mg/dL 93 95 BUN 7 - 21 mg/dL 12 18 Creatinine 0.58 - 0.96 mg/dL 0.96 1.09 (H) Sodium 136 - 144 mmol/L 142 141 Potassium 3.7 - 5.1 mmol/L 3.9 4.4 Chloride 97 - 105 mmol/L 105 105 CO2 22 - 30 mmol/L 27 28 Anion Gap 9 - 18 mmol/L 10 8 (L) ALT 7 - 38 U/L 23 13 eGFR- >60 eGFR-All Other Races . 59 eGFR >=60 mL/min/1.73m 56 (L) Low hdl (under 40) No medication Component Latest Ref Rng & Units 01/13/2020 11/13/2021 Cholesterol, Total <200 mg/dL 148 134 Triglyceride <150 mg/dL 137 133 HDL Cholesterol >39 mg/dL 39 (L) 34 (L) LDL Cholesterol <100 mg/dL 82 73 Non HDL Cholesterol <130 mg/dL 109 100 Fasting Time hrs 12 12 VLDL Cholesterol <30 mg/dL 27 27 TC:HDL Ratio <5.10 3.79 3.94 LDL:HDL Ratio <2.54 2.10 2.15 The 10-year ASCVD risk score (Kota HE, et al., 2019) is: 6% Values used to calculate the score: Age: 67 years Sex: Female Is Non- : No Diabetic: No Tobacco smoker: No Systolic Blood Pressure: 120 mmHg Is BP treated: No HDL Cholesterol: 34 mg/dL Total Cholesterol: 134 mg/dL Gastroesophageal reflux disease without esophagitis Hx of acute gastritis Dyskinesia of esophagus Current medication: Pantoprazole DR 40mg daily. Current symptoms: none. Last Mg level if on PPI chronically: 06/2922 2.2. Heartburn is controlled: Yes. Dysphagia: does get food stuck periodically, keeps apple sauce handy.. Bloody or black stools: No. Bowel changes: No. Last EGD and/or colonoscopy: 10/05/2017 colonoscopy: A few diverticula were found in the sigmoid colon. Diverticulosis sigmoid, nospecimens 10/20/[address] Disla: FINAL DIAGNOSIS A. Duodenum, biopsy: -Duodenal mucosa with intact villous architecture and no significant histologic abnormality -Negative for intraepithelial lymphocytosis B. Stomach, antrum, biopsy: -Portions of oxyntic type gastric mucosa with features suggestive of PPI use -Negative for Helicobacter pylori organisms on routine staining -Negative for intestinal metaplasia or dysplasia C. Esophagus, distal, biopsy: -Portions of squamous epithelium with mild reactive changes -Negative for intraepithelial eosinophils D. Esophagus, mid, biopsy: -Portions of squamous epithelium with no significant histologic abnormality -Negative for intraepithelial eosinophils Seasonal allergic rhinitis due to pollen Current medications: Sudafed? 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 Skin, left vulva, biopsy - Compatible with lichen sclerosis, see comment. KAITLYNN/LEONARD/tristan 10/31/2019 HISTORIES FAMILY HISTORY Problem Relation Age of Onset Cancer Mother ovarian, had negative genetic testing Coronary Artery Disease Father after 55 Hypertension Father Diabetes Father other (hysterecomy) Sister cervical cancer cells Diabetes Maternal Grandmother Cancer Paternal Grandmother possibly ovarian or cervical other (abnormal pap) Daughter other (Precancerous cervix cells) Sister cancerous cells in uterus per Sharon Ellis CNP other (Precancerous cervix cells) Other Niece (hysterectomy) other (hysterectomy) Sister half-sister; unknown etiology PAST MEDICAL HISTORY Diagnosis Date Acute gastritis without mention of hemorrhage Allergic rhinitis due to other allergen Arthritis Cancer (HCC) Deviated septum Dyskinesia of esophagus GERD (gastroesophageal reflux disease) 07/25/2013 Internal hemorrhoids without mention of complication Tinnitus PAST SURGICAL HISTORY Procedure Laterality Date CARPAL TUNNEL 03/09/2009 Rt wrist COLONOSCOPY FLX DX W/COLLJ SPEC WHEN PFRMD 09/06/2007 COLONOSCOPY FLX DX W/COLLJ SPEC WHEN PFRMD 10/05/2017 Colonoscopy EGD 10/20/2022 EGD TRANSORAL BIOPSY SINGLE/MULTIPLE 09/06/2007 ESOPHAGOGASTRODUODENOSCOPY TRANSORAL DIAGNOSTIC 10/05/2017 EGD LIG/TRNSXJ FLP TUBE ABDL/VAG APPR UNI/BI Tubal ligation NASAL ENDOSCOPY DIAG UNILBILAT 01/20/2015 SKIN BIOPSY HX Social History Tobacco Use Smoking status: Never Smokeless tobacco: Never Vaping Use Vaping Use: Never used Substance Use Topics Alcohol use: No Drug use: No ACTIVE PROBLEM LIST Mixed Hyperlipidemia RHINITIS ALLERGIC, DUE TO POLLEN Hx of Acute Gastritis Dyskinesia of Esophagus Family History of Ovarian Cancer Encounter for Long-Term (Current) Use of Medications Screening for Colorectal Cancer Gastroesophageal Reflux Disease Current Outpatient Medications Medication Sig Dispense Refill pseudoephedrine (SUDAFED) 30 mg tablet Take 1 tablet by mouth every 4 hours as needed. 30 tablet 0 sucralfate (CARAFATE) 100 mg/mL suspension Take 10 mL by mouth four times daily. [address] (PROTONIX) 40 mg tablet Take 1 tablet by mouth once daily. 90 tablet 3 estradiol (ESTRACE) 0.01 % (0.1 mg/gram) vaginal cream Use small pea sized amount at vaginal opening twice a week. 42.5 g 5 clobetasol (TEMOVATE) 0.05 % cream Apply to affected area 2x/day for 2 weeks, then 1x/day for a week, than 1-3x/week for maintenance. 60 g 3 calcium carbonate/vitamin d3(CALCIUM 500 WITH VITAMIN D 500 MG-125 UNIT TAB) Take one(1) tablet twice daily. 0 No current facility-administered medications for this visit. ADVANCE DIRECTIVE DISCUSSION due on 03/30/2022 DEPRESSION ASSESSMENT Never done COVID-19 VACCINE(6 - Pfizer series) due on 09/09/2022 MAMMOGRAM due on 01/02/2023 REVIEW OF SYMPTOMS: General: denies fatigue, unusual weight loss or gain, fevers, chills. Energy Level: good Exercise not specific but active. . Sleep: hours: 7h, tosses and turns due to hip pain Diet: not really and ything special . Tobacco use: none. Caffeine use: rarely. ETOH use: none. Marijuana use: none. Illicit drug use: none. Eyes: denies change in vision, glaucoma. Bilateral cataracts. Wears distance glasses. Has bifocal contacts but doesn't wear. Last eye exam: last week. EENT: 11/01/2022 Sore throat and right ear effusion: treated with Augmentin. Hearing is better, othersx have resolved. denies recurrent sinus infection, unusual nasal drainage, hoarsemess, sore throat, or recurrent sore in mouth or tongue. Cardiovascular: denies chest pain , SOB, palpitation, irregular or racing heart beats, orthopnea, leg swelling, history of rheumatic fever or prior heart conditions Respiratory: denies unusual cough, SOB, wheezing, history of recurrent bronchitis, pneumonia or tuberculosis. Denies day time drowsiness. +Snoring if on back, sleep apnea: none witnessed. GI: see above Kidney/Bladder: Denies frequency, burning. Nocturia always has x 2, incontinence a little with sneezing. No history of kidney stones, recurrent UTI or kidney infection. Females: Climacteric early 50s. Sees [facility] for lichen sclerosis. No hx of ovarian cysts, no pelvic infection, + tubal , none abnormal pap. Skin: denies unusual rashes. No history of skin cancer, bleeding/changing moles, or unusual skin lesions. Neurologic: Denies recurrent LEI, change in vision, hearing or smell, tremors, unusual weakness, loss of sensation, or difficulty with balance or gait. No history of epilepsy/convulsions, migraine, head/spinal injuries, or stroke/TIA. Psychiatric: denies unusual worry, moodiness, depression, suicidal ideation or unusual disturbance in relationships. No history of psychiatric illness. Endocrine: denies unusual thirst, hunger, excessive urination, change in skin or hair texture, emotional lability. No history of thryoid, pituitary or hormonal problems. Hematologic: denies unusual bleeding, bruising, or history of anemia or blood transfusion. Denies hx blood clots. Infections: denies risk factors for HIV, hepatitis or history of unusual infection. Immunizations are up to date. Musculoskeletal: SIJ on right with arthritis, seeing ortho, suggesting injection SIJ. denies unusual stiffness, muscles aches, joint pain, or swelling. Denies recurrent sprain or disruption of joints, debilitating arthritis, gout, or other musculoskeletal disease. denies Hx back injury, spinal stenosis, radiculopathy. EXAM: BP 120/70 Pulse 67 Resp 16 Wt 87.5 kg (193 lb) LMP 09/17/2008 SpO2 97% BMI 31.15 kg/m Pleasant overweight in no acute distress. Alert and oriented all spheres. Normal affect and cognition. Speech normal. No deficits to learning or comprehension. Skin warm, dry, pink to lips and nailbeds. Normal turgor. No significant lesions on exposed skin sparing under clothed areas. Respirations regular and unlabored. HEENT: NCAT. No scleral icterus or conjunctival injection. TM's clear. Nose and oropharynx free from injection or lesion. Oral membranes moist and pink. Healthy gums. Teeth in good repair. No cervical lymph nodes. Thyroid non-tender, no masses, or enlargement. Carotids pulses 2+/4+ without bruits. No JVD with HOB at 30 degrees. Chest is normal shape. Lungs are clear to all brown with good air exchange through out. HRRR without murmur or gallop. No lifts, heaves, or rubs. Abdomen: active bowel sounds throughout, soft, nontender, no masses or organomegaly. No CVAT. No abdominal bruits, axillary or inguinal nodes. Femoral pulses 2/4+ without bruit. Extrem: no clubbing or cyanosis. Edema: none. Extremities are warm and pink with prompt capillary refill. Back with very slightly levoscoliosis mid thoracic. Identifies pain in area above SIJ, left S3, tender over soft tissue in this area. Flexion to toes. Pain with hyperextension. Normal innominate function. Gait and balance normal. Sensation grossly intact. Negative findings: speech normal, mental status intact, cranial nerves 2-12 intact, muscle tone normal, DTRs 2/4+ and symmetric ASSESSMENT/PLAN: 1. Essential hypertension - ICD9: 401.9, ICD10: I10 (primary diagnosis) - Controlled - Recommend home blood pressure monitoring, to bring results to next visit - Encouraged sodium restriction, DASH or Mediterranean diet - Recommend regular aerobic exercise - CBC + DIFF - COMP METABOLIC PANEL 2. Low HDL (under 40) - ICD9: 272.5, ICD10: E78.6 - Controlled - Counseled on healthy diet and regular exercise - LIPID PANEL BASIC 3. Gastroesophageal reflux disease without esophagitis - ICD9: 530.81, ICD10: K21.9 - Discussed lifestyle modifications including losing weight, limiting caffeine, no meals three hours before sleep, and head of bed elevation - PANTOPRAZOLE 40 MG TABLET,DELAYED RELEASE 4. Hx of acute gastritis - ICD9: V12.70, ICD10: Z87.19 As above 5. Dyskinesia of esophagus - ICD9: 530.5, ICD10: K22.4 Currently quiescent 6. Seasonal allergic rhinitis due to pollen - ICD9: 477.0, ICD10: J30.1 Stable, manages during flares. 7. Lichen sclerosus et atrophicus of the vulva - ICD9: 701.0, ICD10: N90.4 Follows with [facility] 8. Wellness examination - ICD9: V70.0, ICD10: Z00.00 - Counseled on healthy diet and regular exercise - Calcium intake with supplements or by diet of 1000 mg/day for under 50, 1200- 1500 mg/day for 50+ - Discussed need and benefit for weight loss. BMI 31.15 kg/(m^2) - Bone mineral density ordered - Depression screening tool completed and reviewed with patient. Based on score and interview, patient is not at risk for depression and recommended no further intervention at this time. - Follow up for annual exam in one year 9. Arthritis of right sacroiliac joint - ICD9: 721.3, ICD10: M47.818 - CONSULT TO PAIN MGT - XR LUMBAR GENERAL 3V AP/LAT/L5-S1 10. Pulsatile abdomen - ICD9: 789.9, ICD10: R19.8 - US SCREENING FOR AAA 11. Lumbosacral pain - ICD9: 724.2, 724.6, ICD10: M54.50 - XR LUMBAR GENERAL 3V AP/LAT/L5-S1 12. Asymptomatic postmenopausal state - ICD9: V49.81, ICD10: Z78.0 - DXA-AXIAL SKELETON 13. Current use of proton pump inhibitor - ICD9: V58.69, ICD10: Z79.899 - MAGNESIUM BLD 14. Low vitamin D level - ICD9: 790.6, ICD10: R79.89 - VITAMIN D 25 HYDROXY 15. Chronic kidney disease, stage 3a (HCC) - ICD9: 585.3, ICD10: N18.31 - eGFR: very slightly worse - Counseled on avoiding NSAIDs, adequate hydration 16. Medicare annual wellness visit, subsequent - ICD9: V70.0, ICD10: Z00.00 - Counseled on healthy diet and regular exercise - Calcium intake with supplements or by diet of 1000 mg/day for under 50, 1200- 1500 mg/day for 50+ - Discussed need and benefit for weight loss. BMI 31.15 kg/(m^2) - Mammogram ordered - exam recommended once yearly- has outstanding orders. - Bone mineral density ordered - Depression screening tool completed and reviewed with patient. Based on score and interview, patient is not at risk for depression and recommended no further intervention at this time. - Follow up for annual exam in one year TANNER Barbosaally signed by Mavis Hughes PA-C at 11/14/2022 2:04 PM EDT documented in this encounterChill[facility]23 Instructions* Patient Instructions* Johanne Santos APRN.CNP - 11/01/2022 10:28 AM EDT Rest, increase water intake Motrin or Tylenol as needed for fever or pain. Salt water gargles, chloraseptic spray or lozenges as needed for sore throat. Warm beverages, honey. Nasal saline spray as needed Cool mist humidifier at night A cold normally lasts 7-10 days. If your symptoms are lasting longer, develop fever, or worsening by that time instead of improving then return to clinic or follow up with PCP for re-evaluation. Augmentin as ordered for ear, take with food, can cause upset stomach and diarrhea - use probiotic Probiotic: [place] Align. Do not take with antibiotic, make sure 2 hours between. Continue nasacort Tylenol (generic acetaminophen) 500 mg-2 tabs every 8 hrs. as needed for fever and aches Ibuprofen 600 mg (3-200mg tablets) every 6 hours -Sudafed (generic is fine), behind the counter, 2x30 mg tabs twice daily as needed for congestion -Mucinex (generic is fine) Guaifenesin 1200 mg twice daily to help with cough and to thin out mucus * Seek medical care immediately, call 911, go to ER if you have chest pain, difficulty breathing, shortness of breath, inability to swallow. documented in this encounterChillic[facility]08-05-2023 History of Present illness Narrative* Johanne Santos APRN.CNP - 11/01/2022 10:17 AM EDT Subjective The history is provided by the patient. No denture packer was used. OJSE Astudillo is a 67 year old female who presents today for CC of sore throat and right ear ache for 3 days. She is also having nasal congestion and drainage. This started 3 days ago. She has used claritin without relief. BP 132/80 Pulse (!) 57 Temp 36.8 C (98.3 F) Resp 21 Wt 87.7 kg (193 lb 6.4 oz) LMP 09/17/2008 SpO2 98% BMI 31.22 kg/m Social History Tobacco Use Smoking status: Never Smokeless tobacco: Never Vaping Use Vaping Use: Never used Substance Use Topics Alcohol use: No Drug use: No PAST MEDICAL HISTORY Diagnosis Date Acute gastritis without mention of hemorrhage Allergic rhinitis due to other allergen Arthritis Cancer (HCC) Deviated septum Dyskinesia of esophagus GERD (gastroesophageal reflux disease) 07/25/2013 Internal hemorrhoids without mention of complication Tinnitus I have confirmed and edited as necessary, the [facility] Review of Systems Constitutional: Negative for chills, fever and malaise/fatigue. HENT: Positive for congestion, ear pain (right), sinus pain and sore throat. Respiratory: Negative for cough, sputum production, shortness of breath and wheezing. Cardiovascular: Negative for chest pain. Gastrointestinal: Negative for abdominal pain, diarrhea, nausea and vomiting. Musculoskeletal: Negative for myalgias. Neurological: Positive for headaches. Objective Physical Exam Vitals and nursing note reviewed. HENT: Head: Normocephalic and atraumatic. Right Ear: Ear canal and external ear normal. A middle ear effusion (yellow, cloudy) is present. Tympanic membrane is injected and bulging. Left Ear: Tympanic membrane, ear canal and external ear normal. Nose: No mucosal edema, congestion or rhinorrhea. Right Sinus: No maxillary sinus tenderness or frontal sinus tenderness. Left Sinus: No maxillary sinus tenderness or frontal sinus tenderness. Mouth/Throat: Pharynx: Uvula midline. No oropharyngeal exudate or posterior oropharyngeal erythema. Cardiovascular: Rate and Rhythm: Normal rate and regular rhythm. Heart sounds: Normal heart sounds. Pulmonary: Effort: Pulmonary effort is normal. Breath sounds: Normal breath sounds. Lymphadenopathy: Head: Right side of head: No submental, submandibular or tonsillar adenopathy. Left side of head: No submental, submandibular or tonsillar adenopathy. Cervical: No cervical adenopathy. Skin: General: Skin is warm and dry. Neurological: Mental Status: She is alert. Psychiatric: Mood and Affect: Affect normal. ASSESSMENT/PLAN: 1. Sore throat - ICD9: 462, ICD10: J02.9 (primary diagnosis) - suspect viral - Alere Strep Test negative, no culture pending - STREP A MOLECULAR (POC) 2. URI, acute - ICD9: 465.9, ICD10: J06.9 - Discussed viral etiology and rationale for treatment. - Symptomatic treatment with prn analgesia - Supportive care with fluids and rest - The patient may also use warm salt water gargles, throat lozenges and/or OTC throat spray as needed. - nasacort, sudafed 3. Non-recurrent acute serous otitis media of right ear - ICD9: 381.01, ICD10: H65.01 - Will begin treatment with Augmentin 875 mg PO BID for 7 days - Supportive care with plenty of fluids, rest, and analgesia prn. Diagnosis and treatment plan were discussed and questions were answered to the patient's satisfaction. Pt acknowledged understanding of concepts and follow up plan. Specific signs and symptoms that would indicate the need for higher level of care were discussed indetail warranting prompt ER evaluation. Johanne Santos 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 documented in this encounterChillicothe [facility]08-01-2023 Instructions* Patient Instructions* Crystal Pastrana PA-C - 10/28/2022 10:54 AM EDT -If dysphagia symptoms recur, would recommend esophageal manometry for further evaluation -Repeat EGD in 5 years for surveillance due to long-term PPI use The following instructions are important for you related to your office visit today with the [facility]. INSTRUCTIONS FOR PEPTIC ULCER DISEASE/GASTRITIS I discussed with you the findings of your upper endoscopy. Your upper endoscopy demonstrated signs of peptic ulcer disease or irritation. This can be seen as a range of issues from actual ulcers in the stomach or duodenum (first part of the small bowel) or irritation ranging from redness to more significant irritation with erosions of the stomach or duodenum. These conditions are usually caused from a combination of too much acid production or too little protective mucus production in the stomach. Factors that increase acid production include smoking and stress. If you smoke, stopping smoking will often cure these issues without needing other medications. Factors that decrease the stomach's production of protective mucus include alcohol consumption, smoking, aspirin and other anti-inflammatory use. Over the counter medications including antiacids and acid reducing medications including H2 blockers (Zantac and the like) and proton pump inhibitors (prilosec, prevacid and the like) neutralize or prevent acid production. Prescription strength proton pump inhibitors (PPIs) may be necessary if your symptoms persist. Carafate may be added to PPI treatment in refractory cases. Avoiding smoking, alcohol and antiinflammatory medications are important in the successful treatment of peptic diseases. New or worsening symptoms such are epigastric pain, burning, difficulty swallowing or food stickingshould be relayed to your physician. Feeling full early after eating, or black, tarry, foul smelling stools are also worrisome. If you have any difficulties or concerns, you should contact our office immediately. If you note any additional difficulties, questions, or concerns, you should contact our office immediately @ [phone] and ask to be transferred to the General Surgery department. documented in this encounterChillicothe [facility]08-01-2023 History of Present illness Narrative* Crystal Pastrana PA-C - 10/28/2022 10:35 AM EDT FOLLOW UP VISIT - ENDOSCOPY NAME: Lucas Trejo [facility] NO.: [id number] DATE OF SERVICE: 10/28/2022 : 1955 REFERRING PHYSICIAN: Eugenio Peralta MD Lucas is a patient I am following for dysphagia and fundic gland polyps. Dr. Disla performed upper endoscopy on 10/20/22. The patient was found to have gastritis, normal appearing duodenum, regularZ-line. Pathology demonstrated: FINAL DIAGNOSIS A. Duodenum, biopsy: -Duodenal mucosa with intact villous architecture and no significant histologic abnormality -Negative for intraepithelial lymphocytosis B. Stomach, antrum, biopsy: -Portions of oxyntic type gastric mucosa with features suggestive of PPI use -Negative for Helicobacter pylori organisms on routine staining -Negative for intestinal metaplasia or dysplasia C. Esophagus, distal, biopsy: -Portions of squamous epithelium with mild reactive changes -Negative for intraepithelial eosinophils D. Esophagus, mid, biopsy: -Portions of squamous epithelium with no significant histologic abnormality -Negative for intraepithelial eosinophils The patient notes developed a contact dermatitis to site of adhesive monitor on her back after endoscopy, states had rash for a week which has since resolved- added to allergy list. VITALS: Blood pressure 122/88, pulse 68, temperature 36.6 C (97.9 F), last menstrual period 09/17/2008, SpO2 97 %. General: patient is alert, cooperative, pleasant and in no acute distress On examination, the abdomen is benign. Assessment IMPRESSION: gastritis and GERD, intermittent dysphagia to bread and meats PLAN: The operative findings and pathology report were reviewed with the patient, and the patient has hadthe opportunity to ask questions and have questions answered. If the patient notes any problems or changes in bowel function, the patient should contact me immediately. Otherwise I recommend follow up endoscopy in 5 years for surveillance due to long-term PPI use. Reviewed recommendation for esophageal manometry. 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 Crystal Pastrana PA-C documented in this encounter[facility] History of Present illness Narrative* Sabina Kauffman, RT(R) - 10/21/2022 1:00 PM EDT Radiology Service Progress Note PATIENT NAME: Lucas Astudillo DATE OF SERVICE: October 21, 2022 TIME: 12:55 PM PATIENT IDENTITY VERIFICATION COMPLETED USING TWO (2) IDENTIFIERS: Name and Date of confirmedby patient verbally. FALL SCREENING: Has the patient had 2 falls in the last year or 1 fall with injury or currently using an Ambulatory Assistive Device (Walker, Cane, Wheelchair, Crutches, etc.)? No PATIENT GENDER DATA: Female. status: : No status: NO. PATIENT RELEVANT IMPLANT DATA REVIEWED: Yes RADIOLOGY DEPARTMENT: General X-ray: Exam(s) Completed: Upper Extremity X- Ray(s): Hand, right PERIPHERAL IV DATA: Not applicable SIGNED BY: RT Sukhwinder(R) October 21, 2022 12:55 PM documented in this encounterCh[facility]07-24-2023 Nurse Note* Mary Torres RN - 10/20/2022 9:41 AM EDT Patient sitting up in bed tolerating snack and drink without problems. Mary Torres RN * Mary Torres RN - 10/20/2022 9:15 AM EDT Patient arrived to PACU, on left side, abomen soft. Drowsy.Denies pain. Mary Torres RN documented in this encounterCh[facility]07-24-2023 History and physical note * Eriberto Disla MD - 10/20/2022 8:45 AM EDT Images from the original note were not included. HISTORY AND PHYSICAL Lucasadele Astudillo 1955 REFERRING PHYSICIAN: Mavis Hughes PA-C CHIEF COMPLAINT: Consult (GERD/dyskinesia of esophagus) HPI: The patient is a 66 year old female referred for endoscopy. Lucas notes dysphagia with bread and meats. Notes history of fundic gland polyps. Patient denies any change in bowel habits, weight changes, blood in stools, black tarry stools or abdominal pain. Denies family history of colon issues. The patient notes no upper GI complaints. Lucas has undergone prior endoscopy. Last EGD and colonoscopy 10/05/[address] Martinez under conscioussedation. 5 year repeat EGD was recommended. No concerns on colonoscopy, repeat recommended in 10 years. PAST MEDICAL HISTORY PAST MEDICAL HISTORY Diagnosis Date Acute gastritis without mention of hemorrhage Allergic rhinitis due to other allergen Deviated septum Dyskinesia of esophagus GERD (gastroesophageal reflux disease) 07/25/2013 Internal hemorrhoids without mention of complication Tinnitus PAST SURGICAL HISTORY PAST SURGICAL HISTORY Procedure Laterality Date CARPAL TUNNEL 03/09/09 Rt wrist COLONOSCOPY FLX DX W/COLLJ SPEC WHEN PFRMD 09/06/07 COLONOSCOPY FLX DX W/COLLJ SPEC WHEN PFRMD 10/05/2017 Colonoscopy EGD TRANSORAL BIOPSY SINGLE/MULTIPLE 09/06/07 ESOPHAGOGASTRODUODENOSCOPY TRANSORAL DIAGNOSTIC 10/05/2017 EGD LIG/TRNSXJ FLP TUBE ABDL/VAG APPR UNI/BI Tubal ligation NASAL ENDOSCOPY DIAG UNILBILAT 01/20/2015 CURRENT MEDICATIONS Current Outpatient Medications Medication Sig pantoprazole DR (PROTONIX) 40 mg tablet Take 1 tablet by mouth once daily. estradiol (ESTRACE) 0.01 % (0.1 mg/gram) vaginal cream Use small pea sized amount at vaginal opening twice a week. clobetasol (TEMOVATE) 0.05 % cream Apply to affected area 2x/day for 2 weeks, then 1x/day for a week, than 1-3x/week for maintenance. calcium carbonate/vitamin d3(CALCIUM 500 WITH VITAMIN D 500 MG-125 UNIT TAB) Take one(1) tablet twice daily. sucralfate (CARAFATE) 100 mg/mL suspension Take 1 g by mouth four times daily. benzonatate (TESSALON PERLES) 100 mg capsule Take 1-2 capsules by mouth three times daily as neededfor cough. No current facility-administered medications for this visit. ALLERGIES: Poison Akanksha PERSONAL HISTORY: SOCIAL HISTORY Social History Tobacco Use Smoking status: Never Smokeless tobacco: Never Vaping Use Vaping Use: Never used Substance Use Topics Alcohol use: No Drug use: No FAMILY HISTORY: FAMILY HISTORY FAMILY HISTORY Problem Relation Age of Onset Cancer Mother ovarian, had negative genetic testing Coronary Artery Disease Father after 55 Hypertension Father Diabetes Father other (hysterecomy) Sister cervical cancer cells Diabetes Maternal Grandmother Cancer Paternal Grandmother possibly ovarian or cervical other (abnormal pap) Daughter other (Precancerous cervix cells) Sister cancerous cells in uterus per Sharon Ellis CNP other (Precancerous cervix cells) Other Niece (hysterectomy) other (hysterectomy) Sister half-sister; unknown etiology REVIEW OF SYMPTOMS: The review of systems data was entered by the nurse and reviewed by me Nursing Notes: Vikki Castillo LPN 07/22/2022 1:20 PM Signed REVIEW OF SYSTEMS: General: The patient denies fatigue, denies weight loss, denies weight gain, denies feeling hot, and denies feelings of cold. Eyes: The patient denies glaucoma, denies eye injury/surgery, wears glasses or contacts. Ear/Nose/Throat: The patient denies allergies, denies hayfever, denies ear infections, and denies bloody noses. Cardiovascular: The patient denies chest pain, denies heart disease, denies high blood pressure,denies cardiac stent, denies prior heart attack, denies irregular heart beat, denies high cholesterol, denies poor circulation, denies heart failure, other cardiac issues, denies claudication, denies cold feet, denies peripheral arterial stent. Respiratory: The patient denies tuberculosis, denies pneumonia, denies frequent cough, denies pulmonary embolism, denies shortness of breath, and denies coughing up blood. Gastrointestinal: The patient NOTES difficulty swallowing, NOTES acid reflux, denies ulcers, deniesvomiting, denies jaundice/hepatitis, denies gallbladder problems, denies black or tarry stools, denies hemorrhoids, denies bleeding from rectum, denies diverticulitis, denies constipation, denies diarrhea, denies loss of stool control, and denies hernias. Kidney/Bladder: The patient denies kidney stones, denies urine infections, and denies bloody urine. Skin: The patient denies a history of skin cancer, denies bleeding/changing moles, and denies a history of skin rash. Neurologic: The patient denies a history of epilepsy/convulsions, denies headaches, denies head/spinal injuries, and denies stroke/TIA. Psychiatric: The patient denies psychiatric medications, denies depression, and denies voices, denies substance abuse. Endocrine: The patient denies thyroid disorders, denies diabetes, and denies hormonal problems. Hematologic: The patient denies a history of bruising, denies bleeding, and denies anemia, denies blood clots. Infections: The patient denies a history of measles and mumps, denies rheumatic fever, and denies sexually transmitted diseases. Musculoskeletal: The patient denies back pain/injury, denies back problems, denies sciatica, deniesknee/foot trouble, denies arthritis, or denies gout. When was patient's last Mammogram screening? N/A Last Colonoscopy: 2018 Vikki Castillo LPN I have confirmed and edited as necessary, the PFSH and ROS obtained by others. Crystal Pastrana PA-C PHYSICAL EXAMINATION: General: The patient is 66 year old female, well nourished, well hydrated in no acute distress. Thepatient is oriented to time, place, and person. VITALS: Blood pressure 120/88, pulse 82, temperature (!) 35.7 C (96.2 F), height 167.6 cm (5' 6), weight 91.5 kg (201 lb 12.8 oz), last menstrual period 09/17/2008, SpO2 100 %. Body mass index is 32.57 kg/m . HEENT: Normal cephalic, ataumatic, pupils are equally round, sclera are anicteric, mucous membranesare moist, oropharynx is clear. Neck has no masses, asymmetry or lymphadenopathy. Respiratory: Clear to auscultation and percussion. Normal respiratory excursion and pattern. Cardiac: Examination is regular rate and rhythm. Normal S1/S2 Abdominal exam: Soft, nontender, with no palpable masses. No hepatosplenomegaly. No palpable hernias. Extremities: no clubbing, cyanosis or edema. No adenopathy. LABORATORY VALUES: As Noted RADIOLOGIC STUDIES: As Noted Assessment IMPRESSION: dysphagia. GERD, fundic gland polyps PLAN: I have reviewed my findings with the surgeon. Will plan for upper endoscopy. We discussed therisks and benefits of the planned endoscopy. I have informed the patient that complications can occur including failure to complete the endoscopy and perforation. The patient had the opportunity to ask questions concerning the planned endoscopy. My staff has also explained the procedure to the patient in understandable terms and has given the patient printed material concerning the procedure. Thepatient freely consents to surgery. The patient was [facility] a [facility]. I have counseled the patient regarding the risk of exposure to and/or potential harm posed by the COVID-19 virus with having a surgery/procedure at this time versus the risk of delaying the surgery/procedure. It is not possible to know either the risk of delaying the surgery or procedure or chance of getting an infection with perfect accuracy, but a joint decision was made between the patient and myself to proceed at this time with endoscopy. Diagnoses: (K22.4) Dyskinesia of esophagus (K21.9) Gastroesophageal reflux disease without esophagitis (Z87.19) Hx of acute gastritis Consultation requested by Tomasz Hughes PA-C for an opinion regarding esophageal concerns and need for repeat upper endoscopy. My final recommendations will be communicated back to the requesting physician by way of shared Medical record or letter to requesting physician via US mail. Crystal Pastrana PA-C UPDATED HISTORY AND PHYSICAL EXAMINATION SERVICE DATE: 10/20/2022 SERVICE TIME: 8:05 AM PHYSICAL EXAM MUST BE COMPLETED ON ADMISSION The History and Physical (completed in the past 30 days) has been reviewed and the patient has beenexamined. The contents accurately reflect the patient's condition with the following additions or revisions since the H&P was completed. Examination indicates no changes. This H&P can be found in the attached. SIGNATURE: Eriberto Disla III, MD PATIENT NAME: Lucas Astudillo DATE: October 20, 2022 TIME: 8:05 AM documented in this encounterCh[facility]04-25-2023 History of Present illness Narrative* Crystal Pastrana PA-C - 07/22/2022 1:41 PM EDT HISTORY AND PHYSICAL Lucas Astudillo 1955 REFERRING PHYSICIAN: Mavis Hughes PA-C CHIEF COMPLAINT: Consult (GERD/dyskinesia of esophagus) HPI: The patient is a 66 year old female referred for endoscopy. Lucas notes dysphagia with bread and meats. Notes history of fundic gland polyps. Patient denies any change in bowel habits, weight changes, blood in stools, black tarry stools or abdominal pain. Denies family history of colon issues. The patient notes no upper GI complaints. Lucas has undergone prior endoscopy. Last EGD and colonoscopy 10/05/[address] Martinez under conscioussedation. 5 year repeat EGD was recommended. No concerns on colonoscopy, repeat recommended in 10 years. PAST MEDICAL HISTORY Diagnosis Date Acute gastritis without mention of hemorrhage Allergic rhinitis due to other allergen Deviated septum Dyskinesia of esophagus GERD (gastroesophageal reflux disease) 07/25/2013 Internal hemorrhoids without mention of complication Tinnitus PAST SURGICAL HISTORY Procedure Laterality Date CARPAL TUNNEL 03/09/09 Rt wrist COLONOSCOPY FLX DX W/COLLJ SPEC WHEN PFRMD 09/06/07 COLONOSCOPY FLX DX W/COLLJ SPEC WHEN PFRMD 10/05/2017 Colonoscopy EGD TRANSORAL BIOPSY SINGLE/MULTIPLE 09/06/07 ESOPHAGOGASTRODUODENOSCOPY TRANSORAL DIAGNOSTIC 10/05/2017 EGD LIG/TRNSXJ FLP TUBE ABDL/VAG APPR UNI/BI Tubal ligation NASAL ENDOSCOPY DIAG UNILBILAT 01/20/2015 Current Outpatient Medications Medication Sig pantoprazole DR (PROTONIX) 40 mg tablet Take 1 tablet by mouth once daily. estradiol (ESTRACE) 0.01 % (0.1 mg/gram) vaginal cream Use small pea sized amount at vaginal opening twice a week. clobetasol (TEMOVATE) 0.05 % cream Apply to affected area 2x/day for 2 weeks, then 1x/day for a week, than 1-3x/week for maintenance. calcium carbonate/vitamin d3(CALCIUM 500 WITH VITAMIN D 500 MG-125 UNIT TAB) Take one(1) tablet twice daily. sucralfate (CARAFATE) 100 mg/mL suspension Take 1 g by mouth four times daily. benzonatate (TESSALON PERLES) 100 mg capsule Take 1-2 capsules by mouth three times daily as neededfor cough. No current facility-administered medications for this visit. ALLERGIES: Poison Akanksha PERSONAL HISTORY: Social History Tobacco Use Smoking status: Never Smokeless tobacco: Never Vaping Use Vaping Use: Never used Substance Use Topics Alcohol use: No Drug use: No FAMILY HISTORY: FAMILY HISTORY Problem Relation Age of Onset Cancer Mother ovarian, had negative genetic testing Coronary Artery Disease Father after 55 Hypertension Father Diabetes Father other (hysterecomy) Sister cervical cancer cells Diabetes Maternal Grandmother Cancer Paternal Grandmother possibly ovarian or cervical other (abnormal pap) Daughter other (Precancerous cervix cells) Sister cancerous cells in uterus per Sharon Ellis, STRETCH MACHINE OPERATOR other (Precancerous cervix cells) Other Niece (hysterectomy) other (hysterectomy) Sister half-sister; unknown etiology REVIEW OF SYMPTOMS: The review of systems data was entered by the nurse and reviewed by me Nursing Notes: Vikki Castillo LPN 07/22/2022 1:20 PM Signed REVIEW OF SYSTEMS: General: The patient denies fatigue, denies weight loss, denies weight gain, denies feeling hot, and denies feelings of cold. Eyes: The patient denies glaucoma, denies eye injury/surgery, wears glasses or contacts. Ear/Nose/Throat: The patient denies allergies, denies hayfever, denies ear infections, and denies bloody noses. Cardiovascular: The patient denies chest pain, denies heart disease, denies high blood pressure,denies cardiac stent, denies prior heart attack, denies irregular heart beat, denies high cholesterol, denies poor circulation, denies heart failure, other cardiac issues, denies claudication, denies cold feet, denies peripheral arterial stent. Respiratory: The patient denies tuberculosis, denies pneumonia, denies frequent cough, denies pulmonary embolism, denies shortness of breath, and denies coughing up blood. Gastrointestinal: The patient NOTES difficulty swallowing, NOTES acid reflux, denies ulcers, deniesvomiting, denies jaundice/hepatitis, denies gallbladder problems, denies black or tarry stools, denies hemorrhoids, denies bleeding from rectum, denies diverticulitis, denies constipation, denies diarrhea, denies loss of stool control, and denies hernias. Kidney/Bladder: The patient denies kidney stones, denies urine infections, and denies bloody urine. Skin: The patient denies a history of skin cancer, denies bleeding/changing moles, and denies a history of skin rash. Neurologic: The patient denies a history of epilepsy/convulsions, denies headaches, denies head/spinal injuries, and denies stroke/TIA. Psychiatric: The patient denies psychiatric medications, denies depression, and denies voices, denies substance abuse. Endocrine: The patient denies thyroid disorders, denies diabetes, and denies hormonal problems. Hematologic: The patient denies a history of bruising, denies bleeding, and denies anemia, denies blood clots. Infections: The patient denies a history of measles and mumps, denies rheumatic fever, and denies sexually transmitted diseases. Musculoskeletal: The patient denies back pain/injury, denies back problems, denies sciatica, deniesknee/foot trouble, denies arthritis, or denies gout. When was patient's last Mammogram screening? N/A Last Colonoscopy: 2018 Vikki Castillo LPN I have confirmed and edited as necessary, the PFSH and ROS obtained by others. Crystal Pastrana PA-C PHYSICAL EXAMINATION: General: The patient is 66 year old female, well nourished, well hydrated in no acute distress. Thepatient is oriented to time, place, and person. VITALS: Blood pressure 120/88, pulse 82, temperature (!) 35.7 C (96.2 F), height 167.6 cm (5' 6), weight 91.5 kg (201 lb 12.8 oz), last menstrual period 09/17/2008, SpO2 100 %. Body mass index is 32.57 kg/m . HEENT: Normal cephalic, ataumatic, pupils are equally round, sclera are anicteric, mucous membranesare moist, oropharynx is clear. Neck has no masses, asymmetry or lymphadenopathy. Respiratory: Clear to auscultation and percussion. Normal respiratory excursion and pattern. Cardiac: Examination is regular rate and rhythm. Normal S1/S2 Abdominal exam: Soft, nontender, with no palpable masses. No hepatosplenomegaly. No palpable hernias. Extremities: no clubbing, cyanosis or edema. No adenopathy. LABORATORY VALUES: As Noted RADIOLOGIC STUDIES: As Noted Assessment IMPRESSION: dysphagia. GERD, fundic gland polyps PLAN: I have reviewed my findings with the surgeon. Will plan for upper endoscopy. We discussed therisks and benefits of the planned endoscopy. I have informed the patient that complications can occur including failure to complete the endoscopy and perforation. The patient had the opportunity to ask questions concerning the planned endoscopy. My staff has also explained the procedure to the patient in understandable terms and has given the patient printed material concerning the procedure. Thepatient freely consents to surgery. The patient was offered a [facility]/procedure [facility]. I have counseled the patient regarding the risk of exposure to and/or potential harm posed by the COVID-19 virus with having a surgery/procedure at this time versus the risk of delaying the surgery/procedure. It is not possible to know either the risk of delaying the surgery or procedure or chance of getting an infection with perfect accuracy, but a joint decision was made between the patient and myself to proceed at this time with endoscopy. Diagnoses: (K22.4) Dyskinesia of esophagus (K21.9) Gastroesophageal reflux disease without esophagitis (Z87.19) Hx of acute gastritis Consultation requested by Tomasz Hughes PA-C for an opinion regarding esophageal concerns and need for repeat upper endoscopy. My final recommendations will be communicated back to the requesting physician by way of shared Medical record or letter to requesting physician via US mail. Crystal Pastrana PA-C documented in this encounterCh[facility]04-25-[facility]23 Nurse Note* Vikki Castlilo LPN - 07/22/2022 1:19 PM EDT REVIEW OF SYSTEMS: General: The patient denies fatigue, denies weight loss, denies weight gain, denies feeling hot, and denies feelings of cold. Eyes: The patient denies glaucoma, denies eye injury/surgery, wears glasses or contacts. Ear/Nose/Throat: The patient denies allergies, denies hayfever, denies ear infections, and denies bloody noses. Cardiovascular: The patient denies chest pain, denies heart disease, denies high blood pressure,denies cardiac stent, denies prior heart attack, denies irregular heart beat, denies high cholesterol, denies poor circulation, denies heart failure, other cardiac issues, denies claudication, denies cold feet, denies peripheral arterial stent. Respiratory: The patient denies tuberculosis, denies pneumonia, denies frequent cough, denies pulmonary embolism, denies shortness of breath, and denies coughing up blood. Gastrointestinal: The patient NOTES difficulty swallowing, NOTES acid reflux, denies ulcers, deniesvomiting, denies jaundice/hepatitis, denies gallbladder problems, denies black or tarry stools, denies hemorrhoids, denies bleeding from rectum, denies diverticulitis, denies constipation, denies diarrhea, denies loss of stool control, and denies hernias. Kidney/Bladder: The patient denies kidney stones, denies urine infections, and denies bloody urine. Skin: The patient denies a history of skin cancer, denies bleeding/changing moles, and denies a history of skin rash. Neurologic: The patient denies a history of epilepsy/convulsions, denies headaches, denies head/spinal injuries, and denies stroke/TIA. Psychiatric: The patient denies psychiatric medications, denies depression, and denies voices, denies substance abuse. Endocrine: The patient denies thyroid disorders, denies diabetes, and denies hormonal problems. Hematologic: The patient denies a history of bruising, denies bleeding, and denies anemia, denies blood clots. Infections: The patient denies a history of measles and mumps, denies rheumatic fever, and denies sexually transmitted diseases. Musculoskeletal: The patient denies back pain/injury, denies back problems, denies sciatica, deniesknee/foot trouble, denies arthritis, or denies gout. When was patient's last Mammogram screening? N/A Last Colonoscopy: 2018 Vikki Castillo LPN documented in this encounterCh[facility]03-[facility]-2023 Miscellaneous Notes* Telephone Encounter - Jan Arrieta LPN - 06/03/2022 8:51 AM EST Pt scheduled well visit with PCP on 11/14/22. * Telephone Encounter - Teena David LPN - 06/02/2022 3:18 PM EST Please help patient set up visit with gen surgery as ordered. Thank you. * Telephone Encounter - Mavis Hughes PA-C - 06/02/2022 2:26 PM EST Hasn't seen me since 06/2020. Please have her schedule her next routine visit with me for continuity. Telephone on 06/02/22 CONSULT TO GENERAL SURGERY Dyskinesia of esophagus (primary encounter diagnosis) Gastroesophageal reflux disease without esophagitis Hx of acute gastritis * Telephone Encounter - Alma Haq RN - 06/02/2022 12:52 PM EST Patient calls and states that she had upper GI done with by Leoncio Martinez on 10/05/2017. Patient states that it was recommended that she get another one done in 5 years. Patient asking if the orders can be placed of this so that she can schedule appointment? Please review and advise, Alma Haq RN documented in this encounterCh[facility]02-27-2023 Miscellaneous Notes* Telephone Encounter - Henny Loya LPN - 05/26/2022 9:02 AM EST Pt wanting order for 3D mammogram. Pt will call to schedule later. No need to return call to pt. Henny Loya LPN documented in this encounterCh[facility]02-14-2023 Miscellaneous Notes* Telephone Encounter - Lin Rouse - 05/13/2022 8:40 AM EST No answer. Informed via VM. Advised to call back with any questions or concerns. Lin Rouse * Telephone Encounter - Mavis Hughes PA-C - 05/13/2022 4:39 AM EST Sure, as long as they realize I am senior living age with no set plans but may happen in next few years. Thanks, Tomasz Hughes PA-C * Telephone Encounter - Crystal Henning RN - 05/12/2022 11:16 AM EST Pt called in asking if provider would accept her grandson Ryley into his practice. She states Pt is 20 and used to see Dr Alvarado. Asked Pt if she was grandson's guardian and she said no. Per Pts chart he was notified that this provider isn't accepting new Pts and was scheduled with Dr Milian. Please call and advise Pt. documented [facility] this encounter[facility] History of Present illness Narrative* Estrella James LPN - 05/12/2022 10:23 AM EST Patient presents for COVID vaccine. Denies any problems at this time. Tolerated injection well. Estrella James LPN documented in this encounterCh[facility]11-21-2022 History of Present illness Narrative* Sabina Kauffman RT(R) - 02/17/2022 9:30 AM EST Radiology Service Progress Note PATIENT NAME: Lucas Astudillo DATE OF SERVICE: February 17, 2022 TIME: 9:50 AM PATIENT IDENTITY VERIFICATION COMPLETED USING TWO (2) IDENTIFIERS: Name and Date of confirmedby patient verbally. FALL SCREENING: Has the patient had 2 falls in the last year or 1 fall with injury or currently using an Ambulatory Assistive Device (Walker, Cane, Wheelchair, Crutches, etc.)? No PATIENT GENDER DATA: Female. status: : No status: NO. PATIENT RELEVANT IMPLANT DATA REVIEWED: Yes RADIOLOGY DEPARTMENT: General X-ray: Exam(s) Completed: Chest X-Ray PERIPHERAL IV DATA: Not applicable SIGNED BY: RT Sukhwinder(R) February 17, 2022 9:50 AM documented in this encounterCh[facility]11-21-2022 Instructions* Patient Instructions* Lola Farris APRN.CNP - 02/17/2022 9:22 AM EST Get the chest xray. Start the prednisone. The prednisone taper will be 4 tablets for 3 days; 3 tablets for 3 days; 2 tablets for 3 days; then1 tablet for 3 days. Please do no use other anti-inflammatories (like ibuprofen, aleve, naproxen, etc) while you are on this medication. 3. Start the tessalon perles as needed. 4. Continue the mucinex (without the decongestant). 5. Continue tylenol. 6. Let us know if no better/worsening. documented in this encounterCh[facility]11-21-2022 History of Present illness Narrative* Lola Farris APRN.CNP - 02/17/2022 9:07 AM EST 66 year old female with c/o URI sx over the last 7 days with worsening symptoms. Sore throat: Yes. Runny/stuffy nose: Yes. Postnasal drip: Yes. Throat clearing: No. Sinus pain/ pressure: Yes. Teeth pain: Yes. Headache Yes. Body aches No. Ear pain: Yes. Cough: Yes. Production: No. Fever: No. Hx asthma No. Hx pneumonia No. Smoker: No. OTC meds tried: mucinex, tylenol, prednisone. She did take mucinex with a decongestant last night and did not sleep. She was seen in urgent care last week. Had negative covid, flu, and strep. ACTIVE PROBLEM LIST Mixed Hyperlipidemia RHINITIS ALLERGIC, DUE TO POLLEN Hx of Acute Gastritis Dyskinesia of Esophagus Family History of Ovarian Cancer Encounter for Long-Term (Current) Use of Medications Screening for Colorectal Cancer Gastroesophageal Reflux Disease Current Outpatient Medications Medication Sig Dispense Refill predniSONE (DELTASONE) 20 mg tablet Take 2 tablets by mouth once daily for 5 days. [address] (PROTONIX) 40 mg tablet Take 1 tablet by mouth once daily. 90 tablet 3 estradiol (ESTRACE) 0.01 % (0.1 mg/gram) vaginal cream Use small pea sized amount at vaginal opening twice a week. 42.5 g 5 clobetasol (TEMOVATE) 0.05 % cream Apply to affected area 2x/day for 2 weeks, then 1x/day for a week, than 1-3x/week for maintenance. 60 g 3 calcium carbonate/vitamin d3(CALCIUM 500 WITH VITAMIN D 500 MG-125 UNIT TAB) Take one(1) tablet twice daily. 0 No current facility-administered medications for this visit. OBJECTIVE: BP 150/98 (BP Site: Right Arm, BP Position: Sitting, BP Cuff Size: Regular Adult) Pulse 77 Temp37.7 C (99.8 F) Resp 16 Wt 89.6 kg (197 lb 9.6 oz) LMP 09/17/2008 SpO2 97% BMI 31.42 kg/m General Appearance: Well appearing, alert, in no acute distress, well-hydrated, well nourished.. Skin: Skin color, texture, turgor normal, no suspicious rashes or lesions. Head: Normocephalic, no masses, lesions, tenderness or abnormalities. Eyes: Anicteric sclera. Pupils are equally round and reactive to light. Extraocular movements are intact. . Ears: External ears normal, canals clear, Normal TMs bilaterally. Nose/Sinuses: Nares normal, septum midline, mucosa normal, no drainage. + sinus tenderness. Oropharynx: Lips, mucosa, and tongue normal, teeth and gums normal, oropharynx normal. Neck: Supple, + superficial anterior cervical adenopathy. Lungs: Lungs clear to auscultation. No wheezing, rhonchi, rales. Course cough. Heart: RRR without murmur, gallop, or rubs. No ectopy. Neurologic: Gait normal. Assessment: ASSESSMENT/PLAN: 1. Sinobronchitis - ICD9: 473.9, 490, ICD10: J32.9, J40 - Will begin treatment with Doxycycline - The patient should also be given warm salt water gargles, throat lozenges and/or OTC throat sprayas needed and mucinex for the first 5-7 days of treatment. - Supportive care with plenty of fluids, rest, and analgesia prn. - Follow up in 3-5 days if symptoms persist or worsen. - XR CHEST 2V FRONTAL/LAT Encouraged to avoid decongestants d/t blood pressure. Discussed treatment plan and patient voices understanding. Patient's questions answered appropriately. Medications and potential side effects were discussed and patient voices understanding. Return to the office as scheduled or as needed for worsening/no improvement. Lola Farris 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 This note was partially generated using [employer] voice recognition system. Note was reviewed for accuracy. There may be minor misspellings or grammar miscues with [employer] voice recognition. documented in this encounterChillic[facility]11-17-2022 History of Present illness Narrative* Alberto Le APRN.JAIRON - 02/13/2022 10:30 AM EST Subjective HPI HPI Lucas A Baudilio is a 66 year old female who presents today for CC of st, congestion, cough. This started 2 days ago. Has tried otc medication for relief. Symptoms are worsened by nothing. Risk factors no known sick exposures. .Patient presents with: Cough: ST, LEI, congestion x2 days PAST MEDICAL HISTORY Diagnosis Date Acute gastritis without mention of hemorrhage Allergic rhinitis due to other allergen Deviated septum Dyskinesia of esophagus GERD (gastroesophageal reflux disease) 07/25/2013 Internal hemorrhoids without mention of complication Tinnitus PAST SURGICAL HISTORY Procedure Laterality Date CARPAL TUNNEL 03/09/09 Rt wrist COLONOSCOPY FLX DX W/COLLJ SPEC WHEN PFRMD 09/06/07 COLONOSCOPY FLX DX W/COLLJ SPEC WHEN PFRMD 10/05/2017 Colonoscopy EGD TRANSORAL BIOPSY SINGLE/MULTIPLE 09/06/07 ESOPHAGOGASTRODUODENOSCOPY TRANSORAL DIAGNOSTIC 10/05/2017 EGD LIG/TRNSXJ FLP TUBE ABDL/VAG APPR UNI/BI Tubal ligation NASAL ENDOSCOPY DIAG UNILBILAT 01/20/2015 ALLERGIES Poison Akanksha MEDICATIONS predniSONE (DELTASONE) 20 mg tablet Take 2 tablets by mouth once daily for [address] (PROTONIX) 40 mg tablet Take 1 tablet by mouth once daily. estradiol (ESTRACE) 0.01 % (0.1 mg/gram) vaginal cream Use small pea sized amount at vaginal opening twice a week. clobetasol (TEMOVATE) 0.05 % cream Apply to affected area 2x/day for 2 weeks, then 1x/day for a week, than 1-3x/week for maintenance. calcium carbonate/vitamin d3(CALCIUM 500 WITH VITAMIN D 500 MG-125 UNIT TAB) Take one(1) tablet twice daily. FAMILY HISTORY Problem Relation Age of Onset Cancer Mother ovarian, had negative genetic testing Coronary Artery Disease Father after 55 Hypertension Father Diabetes Father other (hysterecomy) Sister cervical cancer cells Diabetes Maternal Grandmother Cancer Paternal Grandmother possibly ovarian or cervical other (abnormal pap) Daughter other (Precancerous cervix cells) Sister cancerous cells in uterus per Sharon Ellis CNP other (Precancerous cervix cells) Other Niece (hysterectomy) other (hysterectomy) Sister half-sister; unknown etiology Social History Tobacco Use Smoking status: Never Smokeless tobacco: Never Vaping Use Vaping Use: Never used Substance Use Topics Alcohol use: No Drug use: No Review of Systems Constitutional: Negative for fever. HENT: Positive for congestion and sore throat. Negative for ear discharge, ear pain and nosebleeds. Respiratory: Positive for cough. Negative for shortness of breath and wheezing. Cardiovascular: Negative for chest pain. Gastrointestinal: Negative for diarrhea and vomiting. Musculoskeletal: Negative for neck pain. Skin: Negative for itching and rash. Objective Physical Exam Constitutional: General: She is not in acute distress. Appearance: She is not toxic-appearing or diaphoretic. HENT: Head: Normocephalic and atraumatic. Nose: Nose normal. Mouth/Throat: Pharynx: Uvula midline. No pharyngeal swelling, oropharyngeal exudate, posterior oropharyngeal erythema or uvula swelling. Eyes: General: Lids are normal. No scleral icterus. Right eye: No discharge. Left eye: No discharge. Conjunctiva/sclera: Conjunctivae normal. Pupils: Pupils are equal, round, and reactive to light. Neck: Trachea: Trachea normal. Cardiovascular: Rate and Rhythm: Normal rate and regular rhythm. Heart sounds: Normal heart sounds. Pulmonary: Effort: Pulmonary effort is normal. Breath sounds: Normal breath sounds. Musculoskeletal: Cervical back: Normal range of motion and neck supple. Lymphadenopathy: Cervical: No cervical adenopathy. Right cervical: No superficial cervical adenopathy. Left cervical: No superficial cervical adenopathy. Skin: Findings: No rash. Neurological: Mental Status: She is alert and oriented to person, place, and time. ASSESSMENT/PLAN: 1. URI, acute - ICD9: 465.9, ICD10: J06.9 (primary diagnosis) - Discussed viral etiology and rationale for treatment. - Symptomatic treatment with prn analgesia - Supportive care with fluids and rest - Follow up in 3-5 days if symptoms persist or sooner if worsening of symptoms - COVID WITH FLUA+B, ROUTINE - PREDNISONE 20 MG TABLET - PREDNISONE 20 MG TABLET 2. Sore throat - ICD9: 462, ICD10: J02.9 - suspect viral - Alere Strep Test neg, no culture pending - Discussed supportive care treatment with fluids, rest and analgesia. - The patient should follow up in 3-5 days if symptoms persist or worsen - ALERE STREP A TEST (AG) - PREDNISONE 20 MG TABLET Agrees to plan Alberto Le APRN.CNP documented in this encounterCh[facility]11-17-2022 Instructions* Patient Instructions* Alberto Le APRN.CNP - 02/13/2022 10:28 AM EST RESPIRATORY INFECTION GENERAL INFORMATION: An upper respiratory tract infection, or cold, is a viral infection of the airway passages. It can be caused by any one of almost 200 different viruses. Common symptoms include a runny or stuffy nose, sneezing, watery eyes, sore throat, cough, and slight fever. Colds are contagious, especially during the first 3 or 4 days and cannot be cured by antibiotics. They are spread by coughs, sneezes, anddirect contact, especially [id number]. A respiratory tract infection usually clears up in a few days, but some people may be sick for a week or two. INSTRUCTIONS: 1. Be careful not to blow your nose too hard because this may cause a nosebleed. 2. Use a cool-mist humidifier (vaporizer) to increase air moisture. This will make it easier for you to breathe. Do not use hot steam. 3. Rest as much as possible and get plenty of sleep. 4. Wash your hands often, especially after you blow your nose. Cover your mouth and nose with a tissue when you sneeze or cough. 5. Drink plenty of clear fluids (8 glasses a day) such as water, fruit juice, tea, clear soups, andcarbonated beverages. CONTACT YOUR DOCTOR IF : 1. Your fever lasts more than 3 days. 2. You have a sore throat that gets worse or you see white or yellow spots in your throat. 3. Your cough gets worse or lasts more than 10 days. 4. You develop a rash anywhere on your skin. 5. You have an earache or a headache. 6. You have thick greenish or yellowish discharge from your nose. RETURN IMMEDIATELY IF: 1. You cough up thick yellow, green, narayanan, or bloody sputum. 2. You have difficulty breathing, pain in your chest, or your skin or nails look narayanan or blue. 3. You have shaking chills or a temperature over 102 F (39 C). documented in this encounterCh[facility]10-31-2022 Miscellaneous Notes* Telephone Encounter - Leisa Farris MA - 01/27/2022 11:37 AM EDT Patient has been identified by name and date of : Yes Requested Prescriptions Pending Prescriptions Disp Refills pantoprazole DR (PROTONIX) 40 mg tablet 90 tablet 3 Sig: Take 1 tablet by mouth once daily. RX INSTRUCTIONS: Patient aware RX will be sent to pharmacy. No need to notify patient. Leisa Farris MA Joel: 10/2021 Nov: 10/2022 Last refill: 12/2020 documented in this encounterCh[facility]10-07-2022 Miscellaneous Notes* Letter - Mammography Coordinator - 01/03/2022 8:14 AM EDT January 03, 2022 PID: [id number] Lucas Astudillo [address] [place] [address] Dear Ms. Astudillo, We are pleased to inform you that the results of your recent breast imaging exam on 01/02/2022 are normal. Your mammogram demonstrates that you have dense breast tissue, which could hide abnormalities. Dense breast tissue, in and of itself, is a relatively common condition. Therefore, this information is not provided to cause undue concern; rather, it is to raise your awareness and promote discussion with your health care provider regarding the presence of dense breast tissue in addition to other riskfactors. Early detection of cancer is very important. We also understand recommendations regarding breast cancer screening are controversial. Please discuss with your primary care provider which strategy is best for you and whether a mammogram is right for you. Your imaging studies and report will be [facility] as part of [facility] permanent medical record and are available for your continuing care. Thank you for allowing us to help in meeting your health care needs. Sincerely, Dr. Hammonds Interpreting Radiologist [facility] (Normal over 40) documented in this encounterChillicothe [facility]10-06-2022 History of Present illness Narrative* RT Rosy(R) - 01/02/2022 2:50 PM EDT Radiology Service Progress Note PATIENT NAME: Lucas Astudillo DATE OF SERVICE: January 02, 2022 TIME: 2:54 PM PATIENT IDENTITY VERIFICATION COMPLETED USING TWO (2) IDENTIFIERS: Name and Date of confirmedby patient verbally. FALL SCREENING: Has the patient had 2 falls in the last year or 1 fall with injury or currently using an Ambulatory Assistive Device (Walker, Cane, Wheelchair, Crutches, etc.)? No PATIENT GENDER DATA: Female. status: : No status: NO. PATIENT RELEVANT IMPLANT DATA REVIEWED: Not Applicable RADIOLOGY DEPARTMENT: Mammography PERIPHERAL IV DATA: Not applicable SIGNED BY: RT Rosy(R) January 02, 2022 2:54 PM documented in this encounterCh[facility]10-06-2022 History of Present illness Narrative* Tiffani Gant APRN.JAIRON - 01/02/2022 2:23 PM EDT Occupational Health Nurse offered: Patient declines. Lucas is a 66 year old who presents for an annual gynecologic exam without complaints. Postmenopausal: Yes HRT use: Yes, vaginal estrogen Last Pap: 11/02/2019 normal HPV: 11/02/2019 negative History of abnormal pap: No Last mammogram: 2021 pending History of abnormal mammogram: No Sexually active: Yes Pain with intercourse: Yes Postcoital bleeding: No Vaginal dryness: Yes OB History T0 L1 SAB1 IAB0 Ectopic1 Multiple0 Live Births0 Comment: 1 section No surgery for ectopic Online Facilitator History LMP: 09/17/2008, Postmenopausal Age at Menarche: Age at First : Age at Menopause: Online Facilitator History Comments: Sexual Activity: Yes; Male; bilateral tubal occlusion Contraception: No contraception data on record PAST MEDICAL HISTORY Diagnosis Date Acute gastritis without mention of hemorrhage Allergic rhinitis due to other allergen Deviated septum Dyskinesia of esophagus GERD (gastroesophageal reflux disease) 07/25/2013 Internal hemorrhoids without mention of complication Tinnitus PAST SURGICAL HISTORY Procedure Laterality Date CARPAL TUNNEL 03/09/09 Rt wrist COLONOSCOP W/ OR W/O BRSH SPEC 09/06/07 COLONOSCOP W/ OR W/O BRSH SPEC 10/05/2017 Colonoscopy EGD W/O BRSH SPECIMEN W/BX 09/06/07 EGD W/O OR W/BRUSH/WASH 10/05/2017 EGD LIGATE FALLOPIAN TUBE Tubal ligation NASAL ENDOSCOPY DIAG UNILBILAT 01/20/2015 FAMILY HISTORY Problem Relation Age of Onset Cancer Mother ovarian, had negative genetic testing Coronary Artery Disease Father after 55 Hypertension Father Diabetes Father other (hysterecomy) Sister cervical cancer cells Diabetes Maternal Grandmother Cancer Paternal Grandmother possibly ovarian or cervical other (abnormal pap) Daughter other (Precancerous cervix cells) Sister cancerous cells in uterus per Sharon Ellis CNP other (Precancerous cervix cells) Other Niece (hysterectomy) other (hysterectomy) Sister half-sister; unknown etiology SOCIAL HISTORY Social History Tobacco Use Smoking status: Never Smokeless tobacco: Never Vaping Use Vaping Use: Never used Substance Use Topics Alcohol use: No Drug use: No REVIEW OF SYSTEMS Abdomen: No abdominal pain, nausea, vomiting, diarrhea, or constipation. No bloating, early satiety, indigestion, or increased flatulence. Bladder: No dysuria, gross hematuria, urinary frequency, urinary urgency, or incontinence Breast: No breast lumps, nipple d/c, overlying skin changes, redness or skin retraction Allergies and current medication updated:Yes EXAM: LMP 09/17/2008 GENERAL: pleasant, female in no apparent distress HEENT: Normocephalic, atraumatic, mucus membranes moist, and no lesions NECK: Supple, full range of motion, no adenopathy, and thyroid normal DERMATOLOGY: Normal, without lesions, non-icteric, and non-hirsute BREAST: soft, non-tender, symmetric, no dominant mass, normal nipple-areolar complex, no lymphadenopathy, and no nipple discharge CHEST: Normal inspiratory effort ABDOMEN: soft, non-tender, and no masses PELVIC: external genitalia normal, normal Bartholin's glands, urethra, [place]'s glands, no cervical lesions, good vaginal support, physiologic discharge present, normal appearing perineal body and perianal region, +Lichen sclerosus b/l inner labia majora and perianal area BIMANUAL: uterus normal size, shape and consistency, no adnexal masses, non- tender, and no cervicalmotion tenderness RECTOVAGINAL: deferred. NEURO: alert and oriented x3,exam grossly non-focal EXTREMITIES: normal ASSESSMENT/PLAN: 1) Health maintenance: Pap/HPV screening no longer needed Mammogram up to date Nutrition, exercise and routine health maintenance exams reviewed. Calcium/Vitamin D supplementation information provided. Colon cancer screening: up to date with screening BMD: up to date 2) Follow up one year or sooner as needed 3) Lichen sclerosus -Clobetasol cream ordered Tiffani Gant APRN.CNP documented in this encounterChillic[facility]09-20-2022 History of Present illness Narrative* Nallely Slater LPN - 12/17/2021 3:52 PM EDT Manual Readin/78 Pulse: 64 BP Bala average 137/79 59 Repeat BP Check: 131/78 P64 #1 147/78 P54 #2 144/85 P56 #3 133/75 P63 #4 135/76 P58 #5 130/80 P60 #6 AC Reason for blood pressure check - Last BP elevated Patient is: Taking medication as prescribed No Patient is not currently on any blood pressure medicationses. Took medication today all other prescribed medication taken as prescribed. Experiencing side effects N/A Patient here for a repeat blood pressure check as her last blood pressure in office was elevated on11/12/21 at 144/82. No current blood pressure medication at this time. Does complain of a lot of stress at work. Patient denies any chest pain, shortness of breath, dizziness or headache. Has had no tobacco exposure and no daily caffeine use. Alert and oriented. Pt has been identified by name and birthdate: Yes Allergies reviewed: Yes Latex allergy: no. Medication - prescribed and OTC reviewed and updated: Yes Do you need any prescription refills prior to your next visit: No Health Maintenance: Reviewed and up to date documented in this encounterCh[facility]09-13-2022 Miscellaneous Notes* Telephone Encounter - Rosie Galan RN - 12/10/2021 4:26 PM EDT Annual and mammogram reschedule to 01/02/22 with RM. Previous order then . Please file order. Rosie Galan RN documented in this encounterChillicothe [facility]08-19-2022 History of Present illness Narrative* Estrella James LPN - 11/15/2021 3:00 PM EDT Patient presents for Prevnar 20 vaccine. Denies any problems at this time. Tolerated injection well. Estrella James LPN documented in this encounterChillic[facility]04-28-2014 History of Past illness Narrative* Problem Noted Date Resolved Date GERD (gastroesophageal reflux disease) 4 09/14/2017 Carpal tunnel syndrome 01/12/2006 0 documented as of this encounter (statuses as of 11/01/2021) [facility] of [facility] illness Narrative* Problem Noted Date Resolved Date GERD (gastroesophageal reflux disease) 4 09/14/2017 Carpal tunnel syndrome 01/12/2006 0 documented as of this encounter (statuses as of 11/15/2021) [facility] of [facility] illness Narrative* Problem Noted Date Resolved Date GERD (gastroesophageal reflux disease) 4 09/14/2017 Carpal tunnel syndrome 01/12/2006 0 documented as of this encounter (statuses as of 11/18/2021) [facility] illness Narrative* Problem Noted Date Resolved Date GERD (gastroesophageal reflux disease) 4 09/14/2017 Carpal tunnel syndrome 01/12/2006 0 documented as of this encounter (statuses as of 12/10/2021) [facility] illness Narrative* Problem Noted Date Resolved Date GERD (gastroesophageal reflux disease) 4 09/14/2017 Carpal tunnel syndrome 01/12/2006 0 documented as of this encounter (statuses as of 12/17/2021) [address]28-2014 History of Past illness Narrative* Problem Noted Date Resolved Date GERD (gastroesophageal reflux disease) 4 09/14/2017 Carpal tunnel syndrome 01/12/2006 0 documented as of this encounter (statuses as of 01/02/2022) [place] [id number] History of Past illness Narrative* Problem Noted Date Resolved Date GERD (gastroesophageal reflux disease) 4 09/14/2017 Carpal tunnel syndrome 01/12/2006 0 documented as of this encounter (statuses as of 01/03/2022) [place] [id number] History of Past illness Narrative* Problem Noted Date Resolved Date GERD (gastroesophageal reflux disease) 4 09/14/2017 Carpal tunnel syndrome 01/12/2006 0 documented as of this encounter (statuses as of 01/07/2022) [place] [id number] History of Past illness Narrative* Problem Noted Date Resolved Date GERD (gastroesophageal reflux disease) 4 09/14/2017 Carpal tunnel syndrome 01/12/2006 0 documented as of this encounter (statuses as of 01/27/2022) [place] [id number] History of Past illness Narrative* Problem Noted Date Resolved Date GERD (gastroesophageal reflux disease) 4 09/14/2017 Carpal tunnel syndrome 01/12/2006 0 documented as of this encounter (statuses as of 02/13/2022) [facility] Narrative* Problem Noted Date Resolved Date GERD (gastroesophageal reflux disease) 4 09/14/2017 Carpal tunnel syndrome 01/12/2006 0 documented as of this encounter (statuses as of 02/17/2022) [facility] Narrative* Problem Noted Date Resolved Date GERD (gastroesophageal reflux disease) 4 09/14/2017 Carpal tunnel syndrome 01/12/2006 0 documented as of this encounter (statuses as of 05/12/2022) [facility] Narrative* Problem Noted Date Resolved Date GERD (gastroesophageal reflux disease) 4 09/14/2017 Carpal tunnel syndrome 01/12/2006 0 documented as of this encounter (statuses as of 05/13/2022) [facility] Narrative* Problem Noted Date Resolved Date GERD (gastroesophageal reflux disease) 4 09/14/2017 Carpal tunnel syndrome 01/12/2006 0 documented as of this encounter (statuses as of 05/26/2022) [facility] Narrative* Problem Noted Date Resolved Date GERD (gastroesophageal reflux disease) 4 09/14/2017 Carpal tunnel syndrome 01/12/2006 0 documented as of this encounter (statuses as of 06/03/2022) [facility]-28[facility]2014 History of Past illness Narrative* Problem Noted Date Resolved Date GERD (gastroesophageal reflux disease) 4 09/14/2017 Carpal tunnel syndrome 01/12/2006 0 documented as of this encounter (statuses as of 08/01/2022) [facility]-28[facility]2014 History of Past illness Narrative* Problem Noted Date Diagnosed Date Resolved Date GERD (gastroesophageal reflux disease) 07/25/2013 09/14/2017 Carpal tunnel syndrome 01/12/200606/05 documented as of this encounter (statuses as of 10/28/2022) [place] [address]-28-2014 History of Past illness Narrative* Problem Noted Date Diagnosed Date Resolved Date GERD (gastroesophageal reflux disease) 07/25/2013 09/14/2017 Carpal tunnel syndrome 01/12/200606/05 documented as of this encounter (statuses as of 11/01/2022) [place] [address]-28-2014 History of Past illness Narrative* Problem Noted Date Diagnosed Date Resolved Date GERD (gastroesophageal reflux disease) 07/25/2013 09/14/2017 Carpal tunnel syndrome 01/12/200606/05 documented as of this encounter (statuses as of 11/14/2022) [address]28-2014 History of Past illness Narrative* Problem Noted Date Diagnosed Date Resolved Date GERD (gastroesophageal reflux disease) 07/25/2013 09/14/2017 Carpal tunnel syndrome 01/12/200606/05 documented as of this encounter (statuses as of 11/24/2022) [address]28-2014 History of Past illness Narrative* Problem Noted Date Diagnosed Date Resolved Date GERD (gastroesophageal reflux disease) 07/25/2013 09/14/2017 Carpal tunnel syndrome 01/12/200606/05 documented as of this encounter (statuses as of 11/26/2022) [address]28-2014 History of Past illness Narrative* Problem Noted Date Diagnosed Date Resolved Date GERD (gastroesophageal reflux disease) 07/25/2013 09/14/2017 Carpal tunnel syndrome 01/12/200606/05 documented as of this encounter (statuses as of 12/04/2022) [place] [address]-28-2014 History of Past illness Narrative* Problem Noted Date Diagnosed Date Resolved Date GERD (gastroesophageal reflux disease) 07/25/2013 09/14/2017 Carpal tunnel syndrome 01/12/200606/05 documented as of this encounter (statuses as of 12/05/2022) [address]28-2014 History of Past illness Narrative* Problem Noted Date Diagnosed Date Resolved Date GERD (gastroesophageal reflux disease) 07/25/2013 09/14/2017 Carpal tunnel syndrome 01/12/200606/05 documented as of this encounter (statuses as of 12/12/2022) [place] [address]-28-2014 History of Past illness Narrative* Problem Noted Date Diagnosed Date Resolved Date GERD (gastroesophageal reflux disease) 07/25/2013 09/14/2017 Carpal tunnel syndrome 01/12/200606/05 documented as of this encounter (statuses as of 12/17/2022) [address]28-2014 History of Past illness Narrative* Problem Noted Date Diagnosed Date Resolved Date GERD (gastroesophageal reflux disease) 07/25/2013 09/14/2017 Carpal tunnel syndrome 01/12/200606/05 documented as of this encounter (statuses as of 12/18/2022) [address]28-2014 History of Past illness Narrative* Problem Noted Date Diagnosed Date Resolved Date GERD (gastroesophageal reflux disease) 07/25/2013 09/14/2017 Carpal tunnel syndrome 01/12/200606/05 documented as of this encounter (statuses as of 01/07/2023) [address]28-2014 History of Past illness Narrative* Problem Noted Date Diagnosed Date Resolved Date GERD (gastroesophageal reflux disease) 07/25/2013 09/14/2017 Carpal tunnel syndrome 01/12/200606/05 documented as of this encounter (statuses as of 01/08/2023) [address]28-2014 History of Past illness Narrative* Problem Noted Date Diagnosed Date Resolved Date GERD (gastroesophageal reflux disease) 07/25/2013 09/14/2017 Carpal tunnel syndrome 01/12/200606/05 documented as of this encounter (statuses as of 01/10/2023) [address]28-2014 History of Past illness Narrative* Problem Noted Date Diagnosed Date Resolved Date GERD (gastroesophageal reflux disease) 07/25/2013 09/14/2017 Carpal tunnel syndrome 01/12/200606/05 documented as of this encounter (statuses as of 01/14/2023) [address]28-2014 History of Past illness Narrative* Problem Noted Date Diagnosed Date Resolved Date GERD (gastroesophageal reflux disease) 07/25/2013 09/14/2017 Carpal tunnel syndrome 01/12/200606/05 documented as of this encounter (statuses as of 01/20/2023) [address]28-2014 History of Past illness Narrative* Problem Noted Date Diagnosed Date Resolved Date GERD (gastroesophageal reflux disease) 07/25/2013 09/14/2017 Carpal tunnel syndrome 01/12/200606/05 documented as of this encounter (statuses as of 01/28/2023) [address]28-2014 History of Past illness Narrative* Problem Noted Date Diagnosed Date Resolved Date GERD (gastroesophageal reflux disease) 07/25/2013 09/14/2017 Carpal tunnel syndrome 01/12/200606/05 documented as of this encounter (statuses as of 02/01/2023) [address]28-2014 History of Past illness Narrative* Problem Noted Date Diagnosed Date Resolved Date GERD (gastroesophageal reflux disease) 07/25/2013 09/14/2017 Carpal tunnel syndrome 01/12/200606/05 documented as of this encounter (statuses as of 02/01/2023) [address]28-2014 History of Past illness Narrative* Problem Noted Date Diagnosed Date Resolved Date GERD (gastroesophageal reflux disease) 07/25/2013 09/14/2017 Carpal tunnel syndrome 01/12/200606/05 documented as of this encounter (statuses as of 02/01/2023) [address]28-2014 History of Past illness Narrative* Problem Noted Date Diagnosed Date Resolved Date GERD (gastroesophageal reflux disease) 07/25/2013 09/14/2017 Carpal tunnel syndrome 01/12/200606/05 documented as of this encounter (statuses as of 02/05/2023) [address]28-2014 History of Past illness Narrative* Problem Noted Date Diagnosed Date Resolved Date GERD (gastroesophageal reflux disease) 07/25/2013 09/14/2017 Carpal tunnel syndrome 01/12/200606/05 documented as of this encounter (statuses as of 02/10/2023) [place] [address]-28-2014 History of Past illness Narrative* Problem Noted Date Diagnosed Date Resolved Date GERD (gastroesophageal reflux disease) 07/25/2013 09/14/2017 Carpal tunnel syndrome 01/12/200606/05 documented as of this encounter (statuses as of 02/17/2023) [address]28-2014 History of Past illness Narrative* Problem Noted Date Diagnosed Date Resolved Date GERD (gastroesophageal reflux disease) 07/25/2013 09/14/2017 Carpal tunnel syndrome 01/12/200606/05 documented as of this encounter (statuses as of 02/24/2023) [address]28-2014 History of Past illness Narrative* Problem Noted Date Diagnosed Date Resolved Date GERD (gastroesophageal reflux disease) 07/25/2013 09/14/2017 Carpal tunnel syndrome 01/12/200606/05 documented as of this encounter (statuses as of 05/27/2023) [place] [address]-28-2014 History of Past illness Narrative* Problem Noted Date Diagnosed Date Resolved Date GERD (gastroesophageal reflux disease) 07/25/2013 09/14/2017 Carpal tunnel syndrome 01/12/200606/05 documented as of this encounter (statuses as of 06/15/2023) [facility] note* Diagnosis Need for COVID-19 vaccine- Primary [facility] Diagnosis Need for vaccination- Primary Need for prophylactic vaccination and inoculation against unspecified single disease [facility] Diagnosis Encounter for screening mammogram for malignant neoplasm of breast- Primary Other screening mammogram [facility] Diagnosis Essential hypertension- Primary Unspecified essential hypertension [facility] Diagnosis Encounter for gynecological examination (general) (routine) without abnormal findings- Primary Encounter for screening mammogram for breast cancer 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 [facility] Diagnosis Encounter for screening mammogram for malignant neoplasm of breast Other screening mammogram [facility] Diagnosis Gastroesophageal reflux disease without esophagitis Esophageal reflux [facility] Diagnosis URI, acute- Primary Acute upper respiratory infections of unspecified site Sore throat Acute pharyngitis [facility] Diagnosis Sinobronchitis- Primary Unspecified sinusitis (chronic) [facility] Diagnosis Need for vaccination- Primary Need for prophylactic vaccination and inoculation against unspecified single disease [facility] Diagnosis Encounter for screening mammogram for malignant neoplasm of breast- Primary Other screening mammogram Dense breast tissue [facility] Diagnosis Dyskinesia of esophagus- Primary Gastroesophageal reflux disease without esophagitis Esophageal reflux Hx of acute gastritis Personal history of unspecified digestive disease [facility] Diagnosis Dyskinesia of esophagus Gastroesophageal reflux disease without esophagitis Esophageal reflux Hx of acute gastritis Personal history of unspecified digestive disease [facility] Diagnosis Dysphagia, unspecified type- Primary Chronic superficial gastritis without bleeding Atrophic gastritis without mention of hemorrhage Long-term current use of proton pump inhibitor therapy Allergic contact dermatitis due to adhesives Contact dermatitis and other eczema due to other chemical products [facility] Diagnosis Sore throat- Primary Acute pharyngitis URI, acute Acute upper respiratory infections of unspecified site Non-recurrent acute serous otitis media of right ear [facility]* Diagnosis Essential hypertension- Primary Unspecified essential hypertension Low HDL (under 40) Lipoprotein deficiencies Gastroesophageal reflux disease without esophagitis Esophageal reflux Hx of acute gastritis Personal history of unspecified digestive disease Dyskinesia of esophagus Seasonal allergic rhinitis due to pollen Lichen sclerosus et atrophicus of the vulva 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 Pulsatile abdomen Other symptoms involving abdomen and pelvis Lumbosacral pain Lumbago Asymptomatic postmenopausal state Current use of proton pump inhibitor Encounter for long-term (current) use of other medications Low vitamin D level Chronic kidney disease, stage 3a (HCC) Medicare annual wellness visit, subsequent Routine general medical examination at a [facility] Wellness examination [facility] Pain- Primary Generalized pain [facility]* Diagnosis Arthritis of right sacroiliac joint- Primary [facility]* Diagnosis Arthritis of right sacroiliac joint- Primary [facility]* Diagnosis Arthritis of right sacroiliac joint- Primary [facility]* Diagnosis Plantar fasciitis- Primary Plantar fascial fibromatosis Pes planus of both feet [facility]* Diagnosis Symptomatic varicose veins of both lower extremities- Primary Varicose veins of lower extremities with other complications [facility]* Diagnosis Plantar fasciitis Plantar fascial fibromatosis Flat feet, bilateral [facility]* Diagnosis Pulsatile abdomen Other symptoms involving abdomen and pelvis [facility]* Diagnosis Encounter for screening mammogram for malignant neoplasm of breast Other screening mammogram Dense breast tissue [facility] Diagnosis Gastroesophageal reflux disease, unspecified whether esophagitis present- Primary Gastroesophageal reflux disease with esophagitis without hemorrhage Gastric polyps Benign neoplasm of stomach Dysphagia, unspecified type [facility] Diagnosis Asymptomatic postmenopausal state [facility] this [facility] Diagnosis Plantar fasciitis- Primary Plantar fascial fibromatosis Flat feet, bilateral [facility] Diagnosis Symptomatic varicose veins of both lower extremities Varicose veins of lower extremities with other complications [facility] Diagnosis Symptomatic varicose veins of both lower extremities- Primary Varicose veins of lower extremities with other complications [facility] Diagnosis Dyskinesia of esophagus- Primary Gastroesophageal reflux disease without esophagitis Esophageal reflux [facility] Diagnosis Rib pain on left side- Primary Chest pain, unspecified [facility] Diagnosis Arthritis of right sacroiliac joint- Primary [facility] Diagnosis Encounter for screening mammogram for malignant neoplasm of breast- Primary Other screening mammogram [facility] Diagnosis Contact dermatitis, unspecified contact dermatitis type, unspecified trigger- Primary [facility] Diagnosis Gastroesophageal reflux disease without esophagitis Esophageal reflux [facility] Diagnosis URI, acute Acute upper respiratory infections of unspecified site Acute cough [facility] Diagnosis Pain Generalized pain [facility] Diagnosis Hand pain, right Pain in limb [facility] Diagnosis Arthritis of right sacroiliac joint Lumbosacral pain Lumbago [facility] Diagnosis Sinobronchitis Unspecified sinusitis (chronic) [facility] Diagnosis Sinus congestion- Primary Other diseases of nasal cavity and sinuses Elevated blood pressure reading without diagnosis of hypertension [facility] Diagnosis Encounter for gynecological examination (general) (routine) without abnormal findings- Primary Encounter for screening mammogram for breast cancer Postmenopausal atrophic vaginitis Screening for malignant neoplasm of cervix Screening for malignant neoplasm of the cervix Encounter for screening for human papillomavirus (HPV) Special screening examination for human papillomavirus (HPV) documented [facility] this [facility] Diagnosis Encounter for screening mammogram for malignant neoplasm of breast Other screening mammogram documented in this encounter [facility] note* Diagnosis Primary hypertension- Primary Unspecified essential hypertension Acute pain of right knee documented in this encounter [facility] note* Diagnosis Acute pain of right knee documented in this encounter [facility] note* Diagnosis Primary hypertension- Primary Unspecified essential hypertension documented in this encounter [facility] note* Diagnosis Primary hypertension Unspecified essential hypertension documented in this encounter [facility] for referral (narrative)* Diagnostic Procedure Only (Routine) - Authorized Specialty Diagnoses / Procedures Referred By Esther baugh Referred To Contact [facility] Diagnoses Encounter for screening mammogram for malignant neoplasm of breast Procedures ELLIOT SCREENING SCREENING MAMMOGRAPHY BI 2-VIEW BREAST INC CAD Sharon Ellis 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 [address] [place] [address] [facility] [address] [address] Referral ID Status Reason Start Date Expiration Date Visits Requested Visits Authorized [id number] Authorized Auto-Generat ed Referral 12/10/2021 01/09/2023 1 1 [facility] for referral (narrative)* Diagnostic Procedure Only (Routine) - Pending Review Specialty Diagnoses / Procedures Referred By Esther baugh Referred To Contact [facility] Diagnoses Postmenopausal atrophic vaginitis Procedures ELLIOT SCREENING SCREENING MAMMOGRAPHY BI 2-VIEW BREAST INC CAD Tiffani Gant APRN.CNP [address] [place] [address] [facility] [address] [place] [address] Referral ID Status Reason Start Date Expiration Date Visits Requested Visits Authorized [id number] Pending Review Auto-Generat ed Referral 01/02/2022 02/01/2023 1 1 [facility] for referral (narrative)* Diagnostic Procedure Only (Routine) - Closed Specialty Diagnoses / Procedures Referred By Contac t Referred To Contact [facility] Diagnoses Encounter for screening mammogram for malignant neoplasm of breast Procedures ELLIOT SCREENING SCREENING MAMMOGRAPHY BI 2-VIEW BREAST INC Sharon Matias SCHOOL OPERATIONS MANAGER.STRETCH MACHINE OPERATOR [address] [place] [address] [facility] [address] [place] [address] Referral ID Status Reason Start Date Expiration Date V isits Requested Visits Authorized [id number] Closed Auto-Generate d Referral 12/10/2021 01/09/2023 1 1 [facility] for referral (narrative)* Diagnostic Procedure Only (Routine) - Authorized Specialty Diagnoses / Procedures Referred By Contac t Referred To Contact [facility] Diagnoses Encounter for screening mammogram for malignant neoplasm of breast Dense breast tissue Procedures ELLIOT SCREENING W SAIRA SCREENING DIGITAL BREAST TOMOSYNTHESIS BI SCREENING MAMMOGRAPHY BI 2-VIEW BREAST INC Tiffani Salcido, SCHOOL OPERATIONS MANAGER.STRETCH MACHINE OPERATOR [address] [address] [facility] [address] [place] [address] Referral ID Status Reason Start Date Expiration Date Visits Requested Visits Authorized [id number] Authorized Auto-Generat ed Referral 05/26/2022 06/25/2023 1 1 [facility] for referral (narrative)* Diagnostic Procedure Only (Routine) - Closed Specialty Diagnoses / Procedures Referred By Contac t Referred To Contact [facility] Diagnoses Arthritis of right sacroiliac joint Lumbosacral pain Procedures XR LUMBAR GENERAL 3V AP/LAT/L5-S1 RADEX SPINE LUMBOSACRAL 2/3 VIEWS Mavis Hughes PA-C [address] [place] [address] [place] [address] Referral ID Status Reason Start Date Expiration Date V isits Requested Visits Authorized [id number] Closed Auto-Generate d Referral 11/14/2022 12/14/2023 1 1 * Diagnostic Procedure Only (Routine) - Authorized Specialty Diagnoses / Procedures Referred By Genieac t Referred To Contact [facility] Diagnoses Pulsatile abdomen Procedures US SCREENING FOR AAA (2017) US ABDOMINAL AORTA REAL TIME SCREEN STUDY AAA Mavis Hughes PA-C [address] [place] [address] [place] [address] Referral ID Status Reason Start Date Expiration Date Visits Requested Visits Authorized [id number] Authorized Auto-Generat ed Referral 11/14/2022 12/14/2023 1 1 * Consult, Test, Treat (Routine) - Authorized Specialty Diagnoses / Procedures Referred By Esther t Referred To Contact Pain Management Diagnoses Arthritis of right sacroiliac joint Procedures CONSULT TO PAIN MGT OFFICE/OUTPATIENT NEW HIGH MDM 60-74 MINUTES Mavis Hughes PA-C [address] [place] [address] Referral ID Status Reason Start Date Expiration Date Visits Requested Visits Authorized [id number] Authorized PCP Requested Referral 11/14/2022 11/14/2023 1 1 [facility] for referral (narrative)* Diagnostic Procedure Only (Routine) - Authorized Specialty Diagnoses / Procedures Referred By Contac t Referred To Contact [facility] Diagnoses Pain Procedures XR FOOT GENERAL 3V AP/LAT/OBL BILATERAL RADEX FOOT COMPLETE MINIMUM 3 VIEWS Jt Ramachandran [address] [place] [address] [facility] [address] [place] [address] Referral ID Status Reason Start Date Expiration Date Visits Requested Visits Authorized [id number] Authorized Auto-Generat ed Referral 11/26/2022 12/26/2023 1 1 [facility] for referral (narrative)* Diagnostic Procedure Only (Routine) - Closed Specialty Diagnoses / Procedures Referred By Genieac t Referred To Contact [facility] Diagnoses Pulsatile abdomen Procedures US SCREENING FOR AAA (2017) US ABDOMINAL AORTA REAL TIME SCREEN STUDY AAA Mavis Hughes PA-C [address] [place] [address] [place] [address] Referral ID Status Reason Start Date Expiration Date V isits Requested Visits Authorized [id number] Closed Auto-Generate d Referral 11/14/2022 12/14/2023 1 1 [facility] for referral (narrative)* Diagnostic Procedure Only (Routine) - Closed Specialty Diagnoses / Procedures Referred By Esther t Referred To Contact [facility] Diagnoses Encounter for screening mammogram for malignant neoplasm of breast Dense breast tissue Procedures ELLIOT SCREENING W SAIRA SCREENING DIGITAL BREAST TOMOSYNTHESIS BI SCREENING MAMMOGRAPHY BI 2-VIEW BREAST INC Tiffani Salcido APRN.CNP [address] [place] [address] [facility] [address] [place] [address] Referral ID Status Reason Start Date Expiration Date V isits Requested Visits Authorized [id number] Closed Auto-Generate d Referral 05/26/2022 06/25/2023 1 1 [facility] for referral (narrative)* Outpatient Procedure (Routine) - Closed Specialty Diagnoses / Procedures Referred By Genieac t Referred To Contact [facility] Diagnoses Gastroesophageal reflux disease with esophagitis without hemorrhage Gastric polyps Dysphagia, unspecified type Procedures EGD DIAGNOSTIC ESOPHAGOGASTRODUODENOSC OPY TRANSORAL DIAGNOSTIC Crystal Pastrana PA-C [address] [place] [address] [facility] [place] [address] [place] [address] Referral ID Status Reason Start Date Expiration Date V isits Requested Visits Authorized [id number] Closed Auto-Generate d Referral 07/22/2022 07/23/2023 1 1 [facility] for referral (narrative)* Outpatient Procedure (Routine) - Authorized Specialty Diagnoses / Procedures Referred By Contac t Referred To Contact [facility] Diagnoses Symptomatic varicose veins of both lower extremities Procedures US VENOUS INCOMPETENCY RONNI [facility] DUP-SCAN XTR VEINS COMPLETE BILATERAL STUDY Lexy Kovacs DO [address] [place] [address] [facility] [place] [address] [place] [address] Referral ID Status Reason Start Date Expiration Date Visits Requested Visits Authorized [id number] Authorized Auto-Generat ed Referral 3 02/17/2024 1 1 [facility] for referral (narrative)* Diagnostic Procedure Only (Routine) - Authorized Specialty Diagnoses / Procedures Referred By Contac t Referred To Contact [facility] Diagnoses Encounter for screening mammogram for malignant neoplasm of breast Procedures ELLIOT SCREENING W SAIRA SCREENING DIGITAL BREAST TOMOSYNTHESIS BI SCREENING MAMMOGRAPHY BI 2-VIEW BREAST INC Tiffani Salcido APRN.CNP [address] [facility] [place] [address] [facility] [address] [place] [address] Referral ID Status Reason Start Date Expiration Date Visits Requested Visits Authorized [id number] Authorized Auto-Generat ed Referral 08/27/2023 09/24/2024 1 1 T [facility] for referral (narrative)* Diagnostic Procedure Only (Routine) - Closed Specialty Diagnoses / Procedures Referred By Contac t Referred To Contact [facility] Diagnoses Pain Procedures XR FOOT GENERAL 3V AP/LAT/OBL BILATERAL RADEX FOOT COMPLETE MINIMUM 3 VIEWS Jt Ramachandran [address] [place] [address] Radio General [facility] [address] [place] [address] Referral ID Status Reason Start Date Expiration Date V isits Requested Visits Authorized [id number] Closed Auto-Generate d Referral 11/26/2022 12/26/2023 1 1 [facility] for referral (narrative)* Diagnostic Procedure Only (Urgent) - Closed Specialty Diagnoses / Procedures Referred By Contac t Referred To Contact XR IMAGING Diagnoses Tendonitis of finger Procedures XR HAND GENERAL 3V PA/LAT/OBL RIGHT RADEX HAND MINIMUM 3 VIEWS Aury Albarado PA-C [address] [place] [address] [place] [address] Referral ID Status Reason Start Date Expiration Date V isits Requested Visits Authorized [id number] Closed Auto-Generate d Referral 10/21/2022 11/20/2023 1 1 [facility] for referral (narrative)* Diagnostic Procedure Only (Routine) - Closed Specialty Diagnoses / Procedures Referred By Contac t Referred To Contact XR IMAGING Diagnoses Arthritis of right sacroiliac joint Lumbosacral pain Procedures XR LUMBAR GENERAL 3V AP/LAT/L5-S1 RADEX SPINE LUMBOSACRAL 2/3 VIEWS Mavis Hughes PA-C [address] [place] [address] [place] [address] Referral ID Status Reason Start Date Expiration Date V isits Requested Visits Authorized [id number] Closed Auto-Generate d Referral 11/14/2022 12/14/2023 1 1 [facility] for referral (narrative)* Diagnostic Procedure Only (Routine) - Authorized Specialty Diagnoses / Procedures Referred By Contac t Referred To Contact [facility] Diagnoses Encounter for gynecological examination (general) (routine) without abnormal findings Encounter for screening mammogram for breast cancer Procedures ELLIOT SCREENING W SAIRA SCREENING DIGITAL BREAST TOMOSYNTHESIS BI SCREENING MAMMOGRAPHY BI 2-VIEW BREAST INC [facility] Tiffani Gant, NATALIA.STRETCH MACHINE OPERATOR [address] [place] [address] [facility] [address] [place] [address] Referral ID Status Reason Start Date Expiration Date Visits Requested Visits Authorized [id number] Authorized Auto-Generat ed Referral 02/05/2025 1 1 [facility] for referral (narrative)* Diagnostic Procedure Only (Routine) - Closed Specialty Diagnoses / Procedures Referred By Esther baugh Referred To Contact [facility] Diagnoses Encounter for screening mammogram for malignant neoplasm of breast Procedures ELLIOT SCREENING W SAIRA SCREENING DIGITAL BREAST TOMOSYNTHESIS BI SCREENING MAMMOGRAPHY BI 2-VIEW BREAST INC [facility] Tiffani Gant, SCHOOL OPERATIONS MANAGER.STRETCH MACHINE OPERATOR [address] [place] [address] [facility] [address] [place] [address] Referral ID Status Reason Start Date Expiration Date V isits Requested Visits Authorized [id number] Closed Auto-Generate d Referral 08/27/2023 09/24/2024 1 1 [facility] for referral (narrative)* Diagnostic Procedure Only (Routine) - Closed Specialty Diagnoses / Procedures Referred By Esther t Referred To Contact XR IMAGING Diagnoses Acute pain of right knee Procedures XR KNEE GENERAL 4V AP BOTH/PA BOTH/LAT/MERC RIGHT RADIOLOGIC EXAM KNEE COMPLETE 4/MORE VIEWS Lola Farris, SCHOOL OPERATIONS MANAGER.STRETCH MACHINE OPERATOR [address] [place] [address] [place] [address] Referral ID Status Reason Start Date Expiration Date V isits Requested Visits Authorized [id number] Closed Auto-Generate d Referral 02/22/2024 03/23/2025 1 1 [facility] for visit Narrative* Diagnostic Procedure Only (Routine) - Closed Specialty Diagnoses / Procedures Referred By Esther t Referred To Contact [facility] Diagnoses Encounter for screening mammogram for malignant neoplasm of breast Procedures ELLIOT SCREENING SCREENING MAMMOGRAPHY BI 2-VIEW BREAST INC CAD Sharon Ellis, SCHOOL OPERATIONS MANAGER.STRETCH MACHINE OPERATOR [address] [place] [address] [facility] [address] [place] [address] Referral ID Status Reason Start Date Expiration Date V isits Requested Visits Authorized [id number] Closed Auto-Generate d Referral 12/10/2021 01/09/2023 1 1 [facility] for visit Narrative* Diagnostic Procedure Only (Routine) - Closed Specialty Diagnoses / Procedures Referred By Esther t Referred To Contact [facility] Diagnoses Encounter for screening mammogram for malignant neoplasm of breast Dense breast tissue Procedures ELLIOT SCREENING W SAIRA SCREENING DIGITAL BREAST TOMOSYNTHESIS BI SCREENING MAMMOGRAPHY BI 2-VIEW BREAST INC CAD Tiffani Gant, SCHOOL OPERATIONS MANAGER.STRETCH MACHINE OPERATOR [address] [place] [address] [facility] [address] [place] [address] Referral ID Status Reason Start Date Expiration Date V isits Requested Visits Authorized [id number] Closed Auto-Generate d Referral 05/26/2022 06/25/2023 1 1 [facility] for visit Narrative* Outpatient Procedure (Routine) - Closed Specialty Diagnoses / Procedures Referred By Esther t Referred To Contact [facility] Diagnoses Gastroesophageal reflux disease with esophagitis without hemorrhage Gastric polyps Dysphagia, unspecified type Procedures EGD DIAGNOSTIC ESOPHAGOGASTRODUODENOSC OPY TRANSORAL DIAGNOSTIC Crystal Pastrana PA-C [address] [place] [address] [facility] [place] [address] [place] [address] Referral ID Status Reason Start Date Expiration Date V isits Requested Visits Authorized [id number] Closed Auto-Generate d Referral 07/22/2022 07/23/2023 1 1 [facility] for visit Narrative* Diagnostic Procedure Only (Routine) - Closed Specialty Diagnoses / Procedures Referred By Contac t Referred To Contact [facility] Diagnoses Pain Procedures XR FOOT GENERAL 3V AP/LAT/OBL BILATERAL RADEX FOOT COMPLETE MINIMUM 3 VIEWS Jt Ramachandran [address] [place] [address] Radio [facility] [address] [place] [address] Referral ID Status Reason Start Date Expiration Date V isits Requested Visits Authorized [id number] Closed Auto-Generate d Referral 11/26/2022 12/26/2023 1 1 [facility] for visit Narrative* Diagnostic Procedure Only (Urgent) - Closed Specialty Diagnoses / Procedures Referred By Contac t Referred To Contact XR IMAGING Diagnoses Tendonitis of finger Procedures XR HAND GENERAL 3V PA/LAT/OBL RIGHT RADEX HAND MINIMUM 3 VIEWS Aury Albarado, PA-C [address] [place] [address] [place] [address] Referral ID Status Reason Start Date Expiration Date V isits Requested Visits Authorized [id number] Closed Auto-Generate d Referral 10/21/2022 11/20/2023 1 1 [facility] for visit Narrative* Diagnostic Procedure Only (Routine) - Closed Specialty Diagnoses / Procedures Referred By Contac t Referred To Contact XR IMAGING Diagnoses Arthritis of right sacroiliac joint Lumbosacral pain Procedures XR LUMBAR GENERAL 3V AP/LAT/L5-S1 RADEX SPINE LUMBOSACRAL 2/3 VIEWS Mavis Hughes, PA-C [address] [place] [address] [place] [address] Referral ID Status Reason Start Date Expiration Date V isits Requested Visits Authorized [id number] Closed Auto-Generate d Referral 11/14/2022 12/14/2023 1 1 [facility] for visit Narrative* Diagnostic Procedure Only (Routine) - Closed Specialty Diagnoses / Procedures Referred By Contac t Referred To Contact [facility] Diagnoses Encounter for screening mammogram for malignant neoplasm of breast Procedures ELLIOT SCREENING W SAIRA SCREENING DIGITAL BREAST TOMOSYNTHESIS BI SCREENING MAMMOGRAPHY BI 2-VIEW BREAST INC CAD Tifafni Gant, SCHOOL OPERATIONS MANAGER.STRETCH MACHINE OPERATOR [address] [place] [address] [facility] [address] [place] [address] Referral ID Status Reason Start Date Expiration Date V isits Requested Visits Authorized [id number] Closed Auto-Generate d Referral 08/27/2023 09/24/2024 1 1 [facility] Procedure Only (Routine) - Closed Specialty Diagnoses / Procedures Referred By Esther baugh Referred To Contact XR IMAGING Diagnoses Acute pain of right knee Procedures XR KNEE GENERAL 4V AP BOTH/PA BOTH/LAT/MERC RIGHT RADIOLOGIC EXAM KNEE COMPLETE 4/MORE VIEWS Lola Farris, SCHOOL OPERATIONS MANAGER.STRETCH MACHINE OPERATOR [address] [place] [address] [place] [address] Referral ID Status Reason Start Date Expiration Date V isits Requested Visits Authorized [id number] Closed Auto-Generate d Referral 02/22/2024 03/23/2025 1 1 [facility] Summary Purpose Family History No Family History Records FoundNo Family History Records FoundNo Family History Records Found Advance Directives Documents on File Type Date Recorded 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 Advance Directive(s) 10/05/2017 7:42 AM Reason for Referral Specialty Diagnoses / Procedures Referred By Esther baugh Referred To Contact General Surgery Diagnoses Dyskinesia of esophagus Gastroesophageal reflux disease without esophagitis Hx of acute gastritis Procedures CONSULT TO GENERAL SURGERY OFFICE/OUTPATIENT [facility] 60-74 MINUTES Mavis Hughes PA-C [address] [place] [address] Referral ID Status Reason Start Date Expiration Date Visits Requested Visits Authorized [id number] Authorized PCP Requested Referral 06/02/2022 06/02/2023 1 1 Specialty Diagnoses / Procedures Referred By Esther t Referred To Contact Vascular Surgery Diagnoses Symptomatic varicose veins of both lower extremities Procedures CONSULT TO VASCULAR SURGERY OFFICE/OUTPATIENT [facility] 60-74 MINUTES Mavis Hughes PA-C [address] [place] [address] Referral ID Status Reason Start Date Expiration Date Visits Requested Visits Authorized [id number] Authorized PCP Requested Referral 3 01/06/2024 1 1 Specialty Diagnoses / Procedures Referred By Contac t Referred To Contact [facility] Diagnoses Arthritis of right sacroiliac joint Procedures CONSULT TO PHYSICAL THERAPY PHYSICAL THERAPY EVALUATION HIGH COMPLEX 45 MINS Mavis Hughes PA-C [address] [place] [address] [facility] [place] [address] [place] [address] Referral ID Status Reason Start Date Expiration Date V isits Requested Visits Authorized [id number] Closed Auto-Generate d Referral 11/20/2022 03/29/2023 99 99 Medications Administered Section Inactive Administered Medications - up to 3 most recent administrations Medication Order MAR Action Action Date Dose Rate Site benzocaine 20% 1 [place] (TOPEX) 1 [place], TOPICAL, DIRECTED, Starting on Thu10/20/22 at 0930, Until Thu10/20/22 at 1329, DOSING DIRECTED BY PHYSICIAN FOR PROCEDURAL SEDATION ONLY - Pharmaceutical Waste: Aerosol -, Intraprocedure Given 10/20/2022 9:01 AM EDT 1 [place] diphenhydrAMINE 12.5-50 mg injection (BENADRYL) 12.5-50 mg, INTRAVENOUS, DIRECTED, Starting on Thu10/20/22 at 0930, Until Thu10/20/22 at 1329, DOSING DIRECTED BY PHYSICIAN FOR PROCEDURAL SEDATION ONLY, Intraprocedure Given 10/20/2022 9:05 AM EDT 50 mg fentaNYL 50 mcg/mL 25-100 mcg injection (SUBLIMAZE) 25-100 mcg, INTRAVENOUS, DIRECTED, Starting on Thu10/20/22 at 0930, Until Thu10/20/22 at 1329, DOSING DIRECTED BY PHYSICIAN FOR PROCEDURAL SEDATION ONLY, Intraprocedure Given 10/20/2022 9:03 AM EDT 50 mcg lactated ringers iv infusion 30 mL/hr, INTRAVENOUS, CONTINUOUS, Starting on Thu10/20/22 at 0800, Until Thu10/20/22 at 0924, Preprocedure New Bag/Syringe/Bottle 10/20/2022 8:05 AM EDT 30 mL/hr 30 mL/hr midazolam 1-5 mg injection (VERSED) 1-5 mg, INTRAVENOUS, DIRECTED, Starting on Thu10/20/22 at 0930, Until Thu10/20/22 at 1329, DOSING DIRECTED BY PHYSICIAN FOR PROCEDURAL SEDATION ONLY, Intraprocedure Given 10/20/2022 9:07 AM EDT 1 mg Given 10/20/2022 9:03 AM EDT 3 mg Additional Source Comments INFORMATION SOURCE (unrecogn ized section and content) DATE CREATED AUTHOR 06/13/2020 [facility] DATE CREATED AUTHOR AUTHOR'S ORGANIZ ATION 04/19/2024 [facility] DATE CREATED AUTHOR AUTHOR'S ORGANIZ ATION 04/29/2024 [facility] Source Comments (unrecognize d section and content) In the event this informatio n is protected by the Federal Confidentiality of Alcohol and Drug Abuse Patient Records regulations: The Federal rules restrict any use of the information to criminally investigate or prosecute any alcohol or drug abuse patient.[facility] the event this information is protected by the Federal Confidentiality of Alcohol and Drug Abuse Patient Records regulations: The Federal rules restrict any use of the information to criminally investigate or prosecute any alcohol or drug abuse patient.[facility] the event this information is protected by the Federal Confidentiality of Alcohol and Drug Abuse Patient Records regulations: The Federal rules restrict any use of the information to criminally investigate or prosecute any alcohol or drug abuse patient.[facility] the event this information is protected by the Federal Confidentiality of Alcohol and Drug Abuse Patient Records regulations: The Federal rules restrict any use of the information to criminally investigate or prosecute any alcohol or drug abuse patient.[facility] the event this information is protected by the Federal Confidentiality of Alcohol and Drug Abuse Patient Records regulations: The Federal rules restrict any use of the information to criminally investigate or prosecute any alcohol or drug abuse patient.[facility] the event this information is protected by the Federal Confidentiality of Alcohol and Drug Abuse Patient Records regulations: The Federal rules restrict any use of the information to criminally investigate or prosecute any alcohol or drug abuse patient.[facility] the event this information is protected by the Federal Confidentiality of Alcohol and Drug Abuse Patient Records regulations: The Federal rules restrict any use of the information to criminally investigate or prosecute any alcohol or drug abuse patient.[facility] the event this information is protected by the Federal Confidentiality of Alcohol and Drug Abuse Patient Records regulations: The Federal rules restrict any use of the information to criminally investigate or prosecute any alcohol or drug abuse patient.[facility] Center[facility] the event this information is protected by the Federal Confidentiality of Alcohol and Drug Abuse Patient Records regulations: The Federal rules restrict any use of the information to criminally investigate or prosecute any alcohol or drug abuse patient.[facility] the event this information is protected by the Federal Confidentiality of Alcohol and Drug Abuse Patient Records regulations: The Federal rules restrict any use of the information to criminally investigate or prosecute any alcohol or drug abuse patient.[facility] the event this information is protected by the Federal Confidentiality of Alcohol and Drug Abuse Patient Records regulations: The Federal rules restrict any use of the information to criminally investigate or prosecute any alcohol or drug abuse patient.[facility] the event this information is protected by the Federal Confidentiality of Alcohol and Drug Abuse Patient Records regulations: The Federal rules restrict any use of the information to criminally investigate or prosecute any alcohol or drug abuse patient.[facility] the event this information is protected by the Federal Confidentiality of Alcohol and Drug Abuse Patient Records regulations: The Federal rules restrict any use of the information to criminally investigate or prosecute any alcohol or drug abuse patient.[facility] the event this information is protected by the Federal Confidentiality of Alcohol and Drug Abuse Patient Records regulations: The Federal rules restrict any use of the information to criminally investigate or prosecute any alcohol or drug abuse patient.[facility] the event this information is protected by the Federal Confidentiality of Alcohol and Drug Abuse Patient Records regulations: The Federal rules restrict any use of the information to criminally investigate or prosecute any alcohol or drug abuse patient.[facility] the event this information is protected by the Federal Confidentiality of Alcohol and Drug Abuse Patient Records regulations: The Federal rules restrict any use of the information to criminally investigate or prosecute any alcohol or drug abuse patient.[facility] Center[facility] the event this information is protected by the Federal Confidentiality of Alcohol and Drug Abuse Patient Records regulations: The Federal rules restrict any use of the information to criminally investigate or prosecute any alcohol or drug abuse patient.[facility] Center[facility] the event this information is protected by the Federal Confidentiality of Alcohol and Drug Abuse Patient Records regulations: The Federal rules restrict any use of the information to criminally investigate or prosecute any alcohol or drug abuse patient.[facility] Center[facility] the event this information is protected by the Federal Confidentiality of Alcohol and Drug Abuse Patient Records regulations: The Federal rules restrict any use of the information to criminally investigate or prosecute any alcohol or drug abuse patient.[facility] Center[facility] the event this information is protected by the Federal Confidentiality of Alcohol and Drug Abuse Patient Records regulations: The Federal rules restrict any use of the information to criminally investigate or prosecute any alcohol or drug abuse patient.[facility] Center[facility] the event this information is protected by the Federal Confidentiality of Alcohol and Drug Abuse Patient Records regulations: The Federal rules restrict any use of the information to criminally investigate or prosecute any alcohol or drug abuse patient.[facility] Center[facility] the event this information is protected by the Federal Confidentiality of Alcohol and Drug Abuse Patient Records regulations: The Federal rules restrict any use of the information to criminally investigate or prosecute any alcohol or drug abuse patient.[facility] Center[facility] the event this information is protected by the Federal Confidentiality of Alcohol and Drug Abuse Patient Records regulations: The Federal rules restrict any use of the information to criminally investigate or prosecute any alcohol or drug abuse patient.[facility] CenterIn the event this information is protected by the Federal Confidentiality of Alcohol and Drug Abuse Patient Records regulations: The Federal rules restrict any use of the information to criminally investigate or prosecute any alcohol or drug abuse patient.[facility] Center[facility] the event this information is protected by the Federal Confidentiality of Alcohol and Drug Abuse Patient Records regulations: The Federal rules restrict any use of the information to criminally investigate or prosecute any alcohol or drug abuse patient.[facility] Center[facility] the event this information is protected by the Federal Confidentiality of Alcohol and Drug Abuse Patient Records regulations: The Federal rules restrict any use of the information to criminally investigate or prosecute any alcohol or drug abuse patient.[facility] Center[facility] the event this information is protected by the Federal Confidentiality of Alcohol and Drug Abuse Patient Records regulations: The Federal rules restrict any use of the information to criminally investigate or prosecute any alcohol or drug abuse patient.[facility] Center[facility] the event this information is protected by the Federal Confidentiality of Alcohol and Drug Abuse Patient Records regulations: The Federal rules restrict any use of the information to criminally investigate or prosecute any alcohol or drug abuse patient.[facility] Center[facility] the event this information is protected by the Federal Confidentiality of Alcohol and Drug Abuse Patient Records regulations: The Federal rules restrict any use of the information to criminally investigate or prosecute any alcohol or drug abuse patient.[facility] CenterIn the event this information is protected by the Federal Confidentiality of Alcohol and Drug Abuse Patient Records regulations: The Federal rules restrict any use of the information to criminally investigate or prosecute any alcohol or drug abuse patient.[facility] Center[facility] the event this information is protected by the Federal Confidentiality of Alcohol and Drug Abuse Patient Records regulations: The Federal rules restrict any use of the information to criminally investigate or prosecute any alcohol or drug abuse patient.[facility] Center[facility] the event this information is protected by the Federal Confidentiality of Alcohol and Drug Abuse Patient Records regulations: The Federal rules restrict any use of the information to criminally investigate or prosecute any alcohol or drug abuse patient.[facility] Center[facility] the event this information is protected by the Federal Confidentiality of Alcohol and Drug Abuse Patient Records regulations: The Federal rules restrict any use of the information to criminally investigate or prosecute any alcohol or drug abuse patient.[facility] CenterIn the event this information is protected by the Federal Confidentiality of Alcohol and Drug Abuse Patient Records regulations: The Federal rules restrict any use of the information to criminally investigate or prosecute any alcohol or drug abuse patient.[facility] CenterIn the event this information is protected by the Federal Confidentiality of Alcohol and Drug Abuse Patient Records regulations: The Federal rules restrict any use of the information to criminally investigate or prosecute any alcohol or drug abuse patient.[facility] CenterIn the event this information is protected by the Federal Confidentiality of Alcohol and Drug Abuse Patient Records regulations: The Federal rules restrict any use of the information to criminally investigate or prosecute any alcohol or drug abuse patient.[facility] CenterIn the event this information is protected by the Federal Confidentiality of Alcohol and Drug Abuse Patient Records regulations: The Federal rules restrict any use of the information to criminally investigate or prosecute any alcohol or drug abuse patient.[facility] CenterIn the event this information is protected by the Federal Confidentiality of Alcohol and Drug Abuse Patient Records regulations: The Federal rules restrict any use of the information to criminally investigate or prosecute any alcohol or drug abuse patient.[facility] CenterIn the event this information is protected by the Federal Confidentiality of Alcohol and Drug Abuse Patient Records regulations: The Federal rules restrict any use of the information to criminally investigate or prosecute any alcohol or drug abuse patient.[facility] CenterIn the event this information is protected by the Federal Confidentiality of Alcohol and Drug Abuse Patient Records regulations: The Federal rules restrict any use of the information to criminally investigate or prosecute any alcohol or drug abuse patient.[facility] Center[facility] the event this information is protected by the Federal Confidentiality of Alcohol and Drug Abuse Patient Records regulations: The Federal rules restrict any use of the information to criminally investigate or prosecute any alcohol or drug abuse patient.[facility] CenterIn the event this information is protected by the Federal Confidentiality of Alcohol and Drug Abuse Patient Records regulations: The Federal rules restrict any use of the information to criminally investigate or prosecute any alcohol or drug abuse patient.[facility] CenterIn the event this information is protected by the Federal Confidentiality of Alcohol and Drug Abuse Patient Records regulations: The Federal rules restrict any use of the information to criminally investigate or prosecute any alcohol or drug abuse patient.[facility] CenterIn the event this information is protected by the Federal Confidentiality of Alcohol and Drug Abuse Patient Records regulations: The Federal rules restrict any use of the information to criminally investigate or prosecute any alcohol or drug abuse patient.[facility] CenterIn the event this information is protected by the Federal Confidentiality of Alcohol and Drug Abuse Patient Records regulations: The Federal rules restrict any use of the information to criminally investigate or prosecute any alcohol or drug abuse patient.[facility] CenterIn the event this information is protected by the Federal Confidentiality of Alcohol and Drug Abuse Patient Records regulations: The Federal rules restrict any use of the information to criminally investigate or prosecute any alcohol or drug abuse patient.[facility] CenterIn the event this information is protected by the Federal Confidentiality of Alcohol and Drug Abuse Patient Records regulations: The Federal rules restrict any use of the information to criminally investigate or prosecute any alcohol or drug abuse patient.[facility] CenterIn the event this information is protected by the Federal Confidentiality of Alcohol and Drug Abuse Patient Records regulations: The Federal rules restrict any use of the information to criminally investigate or prosecute any alcohol or drug abuse patient.[facility] CenterIn the event this information is protected by the Federal Confidentiality of Alcohol and Drug Abuse Patient Records regulations: The Federal rules restrict any use of the information to criminally investigate or prosecute any alcohol or drug abuse patient.[facility] CenterIn the event this information is protected by the Federal Confidentiality of Alcohol and Drug Abuse Patient Records regulations: The Federal rules restrict any use of the information to criminally investigate or prosecute any alcohol or drug abuse patient.[facility] CenterIn the event this information is protected by the Federal Confidentiality of Alcohol and Drug Abuse Patient Records regulations: The Federal rules restrict any use of the information to criminally investigate or prosecute any alcohol or drug abuse patient.[facility] CenterIn the event this information is protected by the Federal Confidentiality of Alcohol and Drug Abuse Patient Records regulations: The Federal rules restrict any use of the information to criminally investigate or prosecute any alcohol or drug abuse patient.[facility] CenterIn the event this information is protected by the Federal Confidentiality of Alcohol and Drug Abuse Patient Records regulations: The Federal rules restrict any use of the information to criminally investigate or prosecute any alcohol or drug abuse patient.[facility] CenterIn the event this information is protected by the Federal Confidentiality of Alcohol and Drug Abuse Patient Records regulations: The Federal rules restrict any use of the information to criminally investigate or prosecute any alcohol or drug abuse patient.[facility] CenterIn the event this information is protected by the Federal Confidentiality of Alcohol and Drug Abuse Patient Records regulations: The Federal rules restrict any use of the information to criminally investigate or prosecute any alcohol or drug abuse patient.[facility] CenterIn the event this information is protected by the Federal Confidentiality of Alcohol and Drug Abuse Patient Records regulations: The Federal rules restrict any use of the information to criminally investigate or prosecute any alcohol or drug abuse patient.[facility] CenterIn the event this information is protected by the Federal Confidentiality of Alcohol and Drug Abuse Patient Records regulations: The Federal rules restrict any use of the information to criminally investigate or prosecute any alcohol or drug abuse patient.[facility] CenterIn the event this information is protected by the Federal Confidentiality of Alcohol and Drug Abuse Patient Records regulations: The Federal rules restrict any use of the information to criminally investigate or prosecute any alcohol or drug abuse patient.[facility] CenterIn the event this information is protected by the Federal Confidentiality of Alcohol and Drug Abuse Patient Records regulations: The Federal rules restrict any use of the information to criminally investigate or prosecute any alcohol or drug abuse patient.[facility] CenterIn the event this information is protected by the Federal Confidentiality of Alcohol and Drug Abuse Patient Records regulations: The Federal rules restrict any use of the information to criminally investigate or prosecute any alcohol or drug abuse patient.[facility] CenterIn the event this information is protected by the Federal Confidentiality of Alcohol and Drug Abuse Patient Records regulations: The Federal rules restrict any use of the information to criminally investigate or prosecute any alcohol or drug abuse patient.[facility] CenterIn the event this information is protected by the Federal Confidentiality of Alcohol and Drug Abuse Patient Records regulations: The Federal rules restrict any use of the information to criminally investigate or prosecute any alcohol or drug abuse patient.[facility] CenterIn the event this information is protected by the Federal Confidentiality of Alcohol and Drug Abuse Patient Records regulations: The Federal rules restrict any use of the information to criminally investigate or prosecute any alcohol or drug abuse patient.[facility] CenterIn the event this information is protected by the Federal Confidentiality of Alcohol and Drug Abuse Patient Records regulations: The Federal rules restrict any use of the information to criminally investigate or prosecute any alcohol or drug abuse patient.[facility] Reason for Visit (unrecogniz ed section and content) Reason Comments Physical Therapy Specialty Diagnoses / Procedures Referred By Esther baugh Referred To Contact [facility] Diagnoses Arthritis of right sacroiliac joint Procedures CONSULT TO PHYSICAL THERAPY PHYSICAL THERAPY EVALUATION HIGH COMPLEX 45 MINS Mavis Hughes PA-C [address] [place] [address] [facility] [address] [place] [address] Referral ID Status Reason Start Date Expiration Date Visits Requested Visits Authorized [id number] Authorized Auto-Generat ed Referral 11/20/2022 03/29/2023 99 99 Reason Comments PT Eval Reason Comments PT Progress Note Reason Comments Imm/Inj Reason Comments Orders Reason Comments Blood Pressure Check Reason Comments Yearly Exam Reason Onset Date Comments Refill Request 01/27/[address], LEI, congestion x 2 days Reason Comments Cough Reason Comments Patient Question Reason Comments Referral Request Reason Comments Consult GERD/dyskinesia of e sophagus Specialty Diagnoses / Procedures Referred By Esther baugh Referred To Contact General Surgery Diagnoses Dyskinesia of esophagus Gastroesophageal reflux disease without esophagitis Hx of acute gastritis Procedures CONSULT TO GENERAL SURGERY OFFICE/OUTPATIENT NEW HIGH MDM 60-74 MINUTES Mavis Hughes PA-C [address] [place] [address] Referral ID Status Reason Start Date Expiration Date V isits Requested Visits Authorized [id number] Closed PCP Requested Referral 06/02/2022 06/02/2023 1 1 Reason Comments Follow Up EGD Reason Comments Sore Throat Right ear pain x 3 d ays Reason Comments Yearly Exam Ear Problem Right ear fluid Reason Comments New Pain Reason Comments Consult Reason Comments Radiology US Specialty Diagnoses / Procedures Referred By Esther baugh Referred To Contact US IMAGING Diagnoses Pulsatile abdomen Procedures US SCREENING FOR AAA (2017) US ABDOMINAL AORTA REAL TIME SCREEN STUDY AAA Mavis Hughes PA-C [address] [place] [address] [place] [address] Referral ID Status Reason Start Date Expiration Date V isits Requested Visits Authorized [id number] Closed Auto-Generate d Referral 11/14/2022 12/14/2023 1 1 Reason Comments New Patient Specialty Diagnoses / Procedures Referred By Esther baugh Referred To Contact Vascular Surgery Diagnoses Symptomatic varicose veins of both lower extremities Procedures CONSULT TO VASCULAR SURGERY OFFICE/OUTPATIENT NEW HIGH MDM 60-74 MINUTES Mavis Hughes PA-C [address] [place] [address] Referral ID Status Reason Start Date Expiration Date V isits Requested Visits Authorized [id number] Closed PCP Requested Referral 01/06/2023 01/06/2024 1 1 Reason Comments Established Patient Reason Comments Pain L side rib pain x1 w fl[place]au Reason Comments Wellness Reason Comments Derm Problem rash Reason Onset Date Comments Refill Request 12/14/2023 Reason Comments Appointment Patient Update Reason Comments Hypertension Blood pressure follo w up Reason Comments Well Woman Reason Comments Recheck BP check Reason Comments Blood Pressure Reason Onset Date Comments Refill Request 08/27/2024 Care Teams (unrecognized sec tion and content) Construction Checker Relationship Specialty Start Date End Date Mavis Hughes PA-C [address] [place] [address] PCP - General Family Practice 09/14/17 Construction Checker Relationship Specialty Start Date End Date Mavis Hughes PA-C [address] [place] [address] PCP - General Family Practice 09/14/17 Construction Checker Relationship Specialty Start Date End Date Mavis Hughes PA-C [address] [place] [address] PCP - General Family Practice 09/14/17 Construction Checker Relationship Specialty Start Date End Date Mavis Hughes PA-C [address] [place] [address] PCP - General Family Medicine 09/14/17 Construction Checker Relationship Specialty Start Date End Date Mavis Hughes PA-C [address] [place] [address] PCP - General Family Medicine 09/14/17 Construction Checker Relationship Specialty Start Date End Date Mavis Hughes PA-C [address] [place] [address] PCP - General Family Medicine 09/14/17 Construction Checker Relationship Specialty Start Date End Date Mavis Hughes PA-C [address] [place] [address] PCP - General Family Medicine 09/14/17 Construction Checker Relationship Specialty Start Date End Date Mavis Hughes PA-C [address] [place] [address] PCP - General Family Medicine 09/14/17 Construction Checker Relationship Specialty Start Date End Date Mavis Hughes PA-C [address] [place] [address] PCP - General Family Medicine 09/14/17 Construction Checker Relationship Specialty Start Date End Date Mavis Hughes PA-C [address] [place] [address] PCP - General Family Medicine 09/14/17 Construction Checker Relationship Specialty Start Date End Date Mavis Hughes PA-C [address] [place] [address] PCP - General Family Medicine 09/14/17 Construction Checker Relationship Specialty Start Date End Date Mavsi Hughes PA-C [address] [place] [address] PCP - General Family Medicine 09/14/17 Construction Checker Relationship Specialty Start Date End Date Mavis Hughes PA-C [address] [place] [address] PCP - General Family Medicine 09/14/17 Construction Checker Relationship Specialty Start Date End Date Eugenio Peralta MD [address] [place] [address] PCP - General Family Medicine 08/20/22 Construction Checker Relationship Specialty Start Date End Date Eugenio Peralta MD [address] [place] [address] PCP - General Family Medicine 08/20/22 Construction Checker Relationship Specialty Start Date End Date Eugenio Peralta MD [address] [place] [address] PCP - General Family Medicine 08/20/22 Construction Checker Relationship Specialty Start Date End Date Eugenio Peralta MD [address] [place] [address] PCP - General Family Medicine 08/20/22 Construction Checker Relationship Specialty Start Date End Date Eugenio Peralta MD [address] [place] [address] PCP - General Family Medicine 08/20/22 Construction Checker Relationship Specialty Start Date End Date Eugenio Peralta MD [address] [place] [address] PCP - General Family Medicine 08/20/22 Construction Checker Relationship Specialty Start Date End Date Eugenio Peralta MD [address] [place] [address] PCP - General Family Medicine 08/20/22 Construction Checker Relationship Specialty Start Date End Date Eugenio Peralta MD [address] [place] [address] PCP - General Family Medicine 08/20/22 Construction Checker Relationship Specialty Start Date End Date Eugenio Peralta MD [address] [place] [address] PCP - General Family Medicine 08/20/22 Construction Checker Relationship Specialty Start Date End Date Eugenio Peralta MD [address] [place] [address] PCP - General Family Medicine 08/20/22 Construction Checker Relationship Specialty Start Date End Date Eugenio Peralta MD [address] [place] [address] PCP - General Family Medicine 08/20/22 Construction Checker Relationship Specialty Start Date End Date Eugenio Peralta MD [address] [place] [address] PCP - General Family Medicine 08/20/22 Construction Checker Relationship Specialty Start Date End Date Eugenio Peralta MD [address] [place] [address] PCP - General Family Medicine 08/20/22 Construction Checker Relationship Specialty Start Date End Date Eugenio Peralta MD [address] [place] [address] PCP - General Family Medicine 08/20/22 Construction Checker Relationship Specialty Start Date End Date Eugenio Peralta MD [address] [place], [place] [address] PCP - General Family Medicine 08/20/22 Construction Checker Relationship Specialty Start Date End Date Eugenio Peralta MD [address] [place], [place] [address] PCP - General Family Medicine 08/20/22 Construction Checker Relationship Specialty Start Date End Date Eugenio Peralta MD [address] [place] [address] PCP - General Family Medicine 08/20/22 Construction Checker Relationship Specialty Start Date End Date Eugenio Peralta MD [address] [place] [address] PCP - General Family Medicine 08/20/22 Construction Checker Relationship Specialty Start Date End Date Eugenio Peralta MD [address] [place] [address] PCP - General Family Medicine 08/20/22 Construction Checker Relationship Specialty Start Date End Date Eugenio Peralta MD [address] [place] [address] PCP - General Family Medicine 08/20/22 Construction Checker Relationship Specialty Start Date End Date Eugenio Peralta MD [address] [place] [address] PCP - General Family Medicine 08/20/22 Construction Checker Relationship Specialty Start Date End Date Eugenio Peralta MD [address] [place] [address] PCP - General Family Medicine 08/20/22 Construction Checker Relationship Specialty Start Date End Date Eugenio Peralta MD [address] [place], [place] [address] PCP - General Family Medicine 08/20/22 Construction Checker Relationship Specialty Start Date End Date Eugenio Peralta MD [address] [place], [place] [address] PCP - General Family Medicine 08/20/22 Construction Checker Relationship Specialty Start Date End Date Eugenio Peralta MD [address] [place] [address] PCP - General Family Medicine 08/20/22 Construction Checker Relationship Specialty Start Date End Date Mavis Hughes PA-C [address] [place] [address] PCP - General Family Medicine 09/14/17 08/19/22 Construction Checker Relationship Specialty Start Date End Date Eugenio Peralta MD [address] [place] [address] PCP - General Family Medicine 08/20/22 Construction Checker Relationship Specialty Start Date End Date Eugenio Peralta MD [address] [place] [address] PCP - General Family Medicine 08/20/22 Construction Checker Relationship Specialty Start Date End Date Eugenio Peralta MD [address] [place] [address] PCP - General Family Medicine 08/20/22 Construction Checker Relationship Specialty Start Date End Date Eugenio Peralta MD [address] [place] [address] PCP - General Family Medicine 08/20/22 Construction Checker Relationship Specialty Start Date End Date Eugenio Peralta MD [address] [place] [address] PCP - General Family Medicine 08/20/22 Construction Checker Relationship Specialty Start Date End Date Eugenio Peralta MD [address] [place] [address] PCP - General [facility] Medicine 08/20/22 Lola Farris 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 [address] [place], [place] [address] [facility] 03/07/24 Natalia Monge 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 [address] [place] [address] [facility] 03/07/24 Construction Checker Relationship Specialty Start Date End Date Eugenio Peralta MD [address] [place], [place] [address] PCP - General Family Medicine 08/20/22 Lola Farris 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 [address] [place] [address] [facility] 03/07/24 Natalia Monge 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 [address] [place], [place] [address] [facility] 03/07/24 FOR RECORDS PERTAINING TO PATIENTS WHO ARE OR HAVE BEEN ENROLLED IN A CHEMICAL DEPENDENCY/SUBSTANCEABUSE PROGRAM, SOME INFORMATION MAY BE OMITTED. This clinical summary was aggregated from multiple sources. Caution should be exercised in using it in the provision of clinical care. This summary normalizes information from multiple sources, and as a consequence, information in this document may materially change the coding, format and clinical context of patient data. In addition, data may be omitted in some cases. CLINICAL DECISIONS SHOULD BE BASED ON THE PRIMARY CLINICAL RECORDS. [facility]. provides no warranty or guarantee of the accuracy or completeness of information in this document.
--- NOTE | 2024-10-08 04:13 | ED.VIS.CHEST ---
HPI History of Present Illness Chief Complaint: Chest Pain Narrative Narrative: Patient is a 68-year-old female who presented to the emergency department with a chief complaint of chest pain. She states that for the last few days she has had chest pain and notes that originally she had a procedure on her tooth therefore she stopped taking her acid reflux medication and she thought this was her acid reflux. States that around 3 AM she woke up with severe pain which prompted her to come here for further evaluation management. PFSH PFSH Home Medications ?Medication ?Instructions ?Recorded ?Last Taken ?Type pantoprazole 40 mg tablet,delayed 40 mg PO DAILY 02/26/19 Unknown History release calcium carbonate 500 mg PO QDAY PRN dyspepsia 01/27/24 Unknown History cholecalciferol (vitamin D3) 10 10 mcg PO QDAY PRN supplement 01/27/24 Unknown History mcg (400 unit) capsule lisinopril 10 mg tablet 10 mg PO QDAY 04/28/24 Unknown History Allergy/AdvReac Type Severity Reaction Status Date / Time No Known Allergies Allergy Verified 10/08/24 03:57 Family History Other CAD (coronary artery disease) COPD (chronic obstructive pulmonary disease) Cancer Diabetes Heart disease Hypertension Myocardial infarction Surgical History H/O section Hx of tubal ligation Social History Smoking Status: Never smoker ROS ROS ED ROS Narrative Constitutional: Denies any fevers or chills Eyes: Denies double vision Cardiovascular: Complains of chest pain as noted above Respiratory: Denies coughing wheezing Abdomen: Denies abdominal pain : Denies urinary symptoms Neurological: Denies numbness, wheeze, tingling Musculoskeletal: Denies back pain Skin: Denies any rashes or lesions EXAM Physical Exam Narrative Exam Narrative: General: Patient is lying in bed did appear to be uncomfortable secondary to chest pain Head: Atraumatic, normocephalic Eyes: PERRL bilaterally, EOMI blood, no conjunctival injection noted Neck: Soft, supple, trachea midline Cardiovascular: Regular rate and rhythm Respiratory: Clear to auscultation bilaterally Abdomen: Soft, nondistended Extremities: Radial pulses +2/4 in the bilateral extremities, +5/5 strength noted in the bilateral upper and lower extremities Neurological: Patient follow commands knew that she was at [facility] the year is 2024 Skin: Warm, dry, intact no rashes lesions noted Const Vital Signs: 10/08/24 03:57 10/08/24 04:06 10/08/24 04:18 Temperature 98.1 F 98.9 F Temperature Source Oral Pulse Rate 73 57 L Respiratory Rate 18 18 Blood Pressure 164/106 H 167/96 H Blood Pressure Mean 125 119 Pulse Ox 98 98 100 Oxygen Delivery Method Room Air Nasal Cannula MDM MDM MDM Narrative Medical decision making narrative: Patient is a 68-year-old female who presented to the emergency department chief complaint of chest pain. On the differential diagnosis includes but only to ACS, pneumonia, pneumothorax, PE. Once workup is obtained reviewed she will be reevaluated. I was called into the room immediately and looked at the EKG showed inferior wall [place]. I called STEMI alert immediately. I ordered [address] Rowley was notified of the inferior wall NY and STEMI. He is also recommending heparin which was ordered. Patient case will be discussed with hospitalist for admission. Discussed case with hospitalist Dr. Soni who will accept patient for admission. Patient's CBC reviewed showed no evidence leukocytosis white blood count was 6.9, he was 12.9, platelet count 165. Patient INR normal 1, PT of 13.2. Patient's sodium normal 141, testing normal 3.8, creatinine was 1.20. Patient's troponin was 48 with a second troponin pending. Patient was ultimately taken down to the [facility] for her STEMI. While here in the emergency department ARBEN JOSE was called. Shortly after this I went down to see if there was any assistance needed and the patient reportedly went into V. tach and went unresponsive therefore while I was arriving they were electively intubating the patient as her oxygen saturations also dropped. During the intubation attempt by Dr. Soni he did give a total of 40 mg of etomidate. There was some difficulty therefore he asked me to attempt to intubate the patient. See procedure note for separate details. After intubation while on the heart catheterization table we had bilateral breath sounds live fluoroscopy was shot at her chest and the ET tube appeared to be 3 cm above the irish. Patient was then placed on mechanical ventilation. 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 My hands were washed daily prior to the procedure. Wore surgical cap, mask with protective eyewear, gown and gloves throughout the procedure. The patient was placed on a gang vibrator operator including continuous pulse oximetry. Rapid sequence intubation was conducted. The patient received 40 milligrams of etomidate for induction prior to my arrival and 100 milligrams of succinylcholine for adequate paralysis. Using a video-assisted laryngoscope and a size 7.5 endotracheal tube with stylette, the patient was intubated on the first attempt. Stylet was removed and cuff balloon was inflated. Appropriate endotracheal tube position was confirmed by direct visualization of cord passage, fogging of the tube, CO2: Metric indicator and symmetric breath sounds. The tube was secured at 23 centimeters at the lips. Critical care time 67 minutes Lab Data Labs: Laboratory Results - last 24 hr 10/08/24 03:58 WBC 6.9 RBC 4.41 Hgb 12.9 Hct 40.0 MCV 90.7 MCH 29.3 MCHC 32.3 RDW Std Deviation 45.1 H RDW Coeff of Linda 13.7 Plt Count 165 MPV 11.3 Immature Gran % (Auto) 0.300 Neut % (Auto) 57.2 Lymph % (Auto) 34.9 Elliott % (Auto) 5.9 Eos % (Auto) 1.3 Baso % (Auto) 0.4 Absolute Neuts (auto) 4.0 Absolute Lymphs (auto) 2.41 Nucleated RBC % 0 PT 13.2 INR 1.0 APTT 27.4 Sodium 141 Potassium 3.8 Chloride 105 Carbon Dioxide 22.9 Anion Gap 13 BUN 13 Creatinine 1.20 Estim Creat Clear Calc 50.48 Est GFR (MDRD) Non-Af 49 L BUN/Creatinine Ratio 10.9 Glucose 154 H Calcium 9.2 Troponin T High Sens 48 H Discharge Plan Triage Chief Complaint: Chest Pain ED Provider: Brando Crooks Dx/Rx/DC Orders Clinical Impression: ST elevation (STEMI) myocardial infarction, Flash pulmonary edema, Acute hypoxic respiratory failure, Chest pain Primary Care Provider: Eugenio James Disposition Disposition: Acute Care Hospital [facility]
[2024-10-08 04:14] LABS: Hematocrit 40.0 % (37-47); Hemoglobin 12.9 g/dL (12.0-15.0); Immature Granulocytes Count 0.020 X10^3/uL (0.0-0.0); Mean Corp Hgb Conc 32.3 g/dL (32-36); Mean Corpuscular Volume 90.7 fL (81-99); Mean Platelet Vol. 11.3 fl (6.2-12.0); NRBC Flagged by Analyzer 0 % (0-5); Platelet Count 165 K/mm3 (150-450); RBC Distribution Width CV 13.7 % (11.6-14.6); RBC Distribution Width SD 45.1 fl (35.1-43.9); Red Blood Count 4.41 M/mm3 (4.2-5.4); White Blood Count 6.9 K/mm3 (4.4-11.0)
[2024-10-08] MEDS: 0.9% Normal Saline (1000mL) 1,000 ML 999 ML IV (04:14)
[2024-10-08 04:22] LABS: Prothrombin Time (Protime)PT. 13.2 SECONDS (11.7-14.9)
[2024-10-08 04:23] LABS: Partial Thromboplast Time 27.4 Seconds (24.1-36.2)
--- OUTSIDE RECORDS SUMMARY | 2024-10-08 04:27 | XMS RPT_ITS | CCD ---
Author Organization [facility] Care Team Providers Care Deep Submergence Vehicle Operator Name Role Phone EUGENIO PATEL Attending Unavailable [...] Mavis Hughes PA-C Primary Care Provider Brenton MACHINE SHOP APPRENTICE.Lola DE LA O Unavailable Jessica MACHINE SHOP APPRENTICE.Natalia DE LA O Unavailable EUGENIO PERALTA Primary Care Unavailable LOLA [...] Attending Unavailable EUGENIO PERALTA Primary Care Unavailable [facility] EUGENIO Hanson Primary Care Unavailable FABIAN, EUGENIO Hanson Primary Care Unavailable TIFFANI GANT Referring Unavailable FABIAN, EUGENIO Hanson Referring Unavailable REJI MORGAN Attending Unavailable FABIAN, EUGENIO Hanson Primary Care Unavailable FABIAN, EUGENIO Hanson Primary Care Unavailable ALFREDA, TIFFANI Attending Unavailable Harrison Cross Attending Unavailable [place], Eugenio Primary Care Unavailable Weber, Rebecca Referring Unavailable Weber, Rebecca Attending Unavailable [place], Eugenio Primary Care Unavailable Weber, Rebecca Referring Unavailable José Miguel Lambert Attending Unavailable [place], Eugenio Primary Care Unavailable Fausto, José Miguel Attending Unavailable [place], Eugenio Referring Unavailable Weber, Rebecca Attending Unavailable [place], Eugenio Referring Unavailable Jessica MACHINE SHOP APPRENTICE.Natalia DE LA O Unavailable Allergies Allergy Classification Reported Allergen(s) Allergy Type Date of Onset Reaction(s) Facility (20 sources) POISON AKANKSHA EXTRACT; Translations: [POISON AKANKSHA] Drug Allergy 07-28-2005 [facility] Work Phone: (20 sources) Adhesive Tape-Silicones; Translations: [ADHESIVE TAPE-SILICONES] Propensity to adverse reactions to drug 10-28-2022 Rash [facility] Work Phone: Medications Current Medications [...] Comment on above: Take 1 tablet by [facility] once daily. predniSONE 10 mg oral tablet [...] on above: Take 2 tablets by [facility] once daily for 5 days. Take 4 [...] Comment on above: Take 1 tablet by [facility] every 4 hours as needed. sucralfate 1000 [...] for cough. Take 1 capsule by [facility] three times a day as needed for [...] Comment on above: Take 1 tablet [facility] daily for 10 days. GLUC HCL/CSANA/GLY-AM-GLY, [...] vaginitis] Chronic Other aftercare (1 source) Other manager terminal (current) drug therapy; Translations: [Long-term (current) use of other medications] 10-28-2022 Episodic Other aftercare (1 source) Drug therapy finding; Translations: [Other manager terminal (current) drug therapy] 11-14-2022 Episodic Other and [...] (20 sources) Patient encounter status; Translations: [Other manager terminal (current) drug therapy] Onset: 07-08-2017 07-08-2017 Episodic Other aftercare (19 sources) Long-term current use of drug therapy; Translations: [Other correction (current) drug therapy] Onset: 07-08-2017 07-08-2017 Episodic [...] Interpretation Reference Range Facility MR/Cleo 04-28-2024 MR/ANIKET [facility] Vascular Surgery [address] [place] [address] OFFICE VISIT Date of Service: 04/28/24 MR#: [id number] Acct: [id number] Name: LUCAS ASTUDILLO Rep #: [id number] : 1955 Provider: Dr. José Miguel Lambert MD Age/Sex: 68/F [facility] Status: Signed Intake Vital Signs 10/29/23 21:40 [...] no sens (more content not included)... Normal [facility] [id number] 04-17-2024 [id number] HNO ID: [id number] Author: HARRY FAUSTIN PT Service: ? Author Type: Physical Therapist Type: [id number] Filed: 04/17/2024 16:29 Note Text: [facility] Rehabilitation and Sports Therapy Physical Therapy Plan of Care Certification Patient Name: Lucas Astudillo : 1955 [facility] #: [id number] Date: 01/19/2023 To: Jt Ramachandran DPM From [...] visit and 1 visit for fitting and parts picker) Planned Treatment Interventions: Orthosis / DME, Patient/Family/Caregiver Education, Self-mcc management ([id number]) PLAN FOR NEXT VISIT: Fitting and parts picker of custom foot orthotics Patient demonstrates good understanding of plan of care and treatment. The above goals and plan of care were discussed and agreed upon by patient/family. For further details regarding this patient refer to the Physical Therapy electronically documented visit dated 01/19/2023. Provider Attestation I have reviewed the treatment plan for Lucas Astudillo, CC# [id number] for the period of 01/19/23 -- 02/23/23, established on 01/19/2023. Signature certifies the need for therapy services. Normal [facility] CNOVon 03-14-2024 CNOV Office Visit (FAMPWS ) LUCAS ASTUDILLO ([id number]) 1955 F Date Time Provider Department 03/14/24 11:20 AM [facility] During your visit today, we recorded [...] to auscultat (more content not included)... Normal [facility] CNOVon 02-22-2024 CNOV Office Visit (FAMPWS ) LUCAS ASTUDILLO ([id number]) 1955 F Date Time Provider Department 02/22/24 11:40 AM LOLA FARRIS [facility] During your visit today, we recorded the following information about you: Pulse Respiration Blood pressure 58/minute 16/minute 158/88 Lola Farris APRN.SUPERVISING FILM OR VIDEOTAPE EDITOR 02/22/2024 8:43 PM Signed This is a [...] understanding. R (more content not included)... Normal [facility] XR KNEE 4V AP/PA BOTH+LAT/ME R RTon [...] fracture. Joint spaces maintained. IMPRESSION: Unremarkable radiograph Securities Consultant: PSCB Transcribe Date/Time: Feb 26 2024 6:33P Dictated by : MEHNAZ LAI MD This examination was interpreted and the report reviewed and electronically signed by: MEHNAZ LAI MD on Feb 26 2024 6:34PM EST [id number] Normal [facility] Venous Duplex US - Ronni Extre mon 02-11-2024 Venous Duplex US - Ronni Extrem [facility] [address] [place] [address] Venous Duplex US - Ronni Extrem 02/11/24 0901 MR#: [id number] Acct: [id number] Name: LUCAS ASTUDILLO Rep #: [id number] : 1955 68 From: José Miguel Lambert [...] Dictated: 02/11/24 0901 Date Transcribed: 02/15/24 1300 Securities Consultant: Signed Normal [facility] /Cloe 01-27-2024 /ANIKET [facility] Vascular Surgery [facility] [address] [place] [address] OFFICE VISIT Date of Service: 01/27/24 MR#: [id number] Acct: [id number] Name: LUCAS ASTUDILLO Rep #: [id number] : 1955 Provider: MEGA Hi Age/Sex: 68/F Location: [facility] Status: Signed Intake Vital Signs 10/29/23 21:40 [...] She had prior workup in March at [facility]. Her duplex at that time [...] No confusion (more content not included)... Normal [facility] DBT Breast - bilateral karen nascimento [...] Henny Pollack M.D. Electronically signed on: 01/08/2024 Securities Consultant: MILI Transcribe Date/Time: Jan 07 2024 10:13A Dictated by: HENNY POLLACK MD This examination was interpreted and the report reviewed and electronically signed by: HENNY POLLACK MD on Jan 08 2024 11:25AM [facility] DIVISION OF RADIOLOGY * * *Final Report* * * DATE OF EXAM: Jan 07 2024 10:43AM [facility] 0582 - ELLIOT SCREENING W SAIRA / PROCEDURE REASON: Encounter for screening mammogram for malignant neoplasm of breast * * * * Physician Interpretation * * * * RESULT: [place] [address] [address] [id number] HISTORY: Patient is 68 years old and [...] the prior study. DIVISION OF RADIOLOGY Provider, [facility] - 01/08/2024 * * *Final Report* * * DATE OF EXAM: Jan 07 2024 10:43AM [facility] 0582 - ELLIOT SCREENING W SAIRA / PROCEDURE REASON: Encounter for screening mammogram for malignant neoplasm of breast * * * * Physician Interpretation * * * * RESULT: [facility] [address] [id number] HISTORY: Patient is 68 years old and [...] Henny Pollack M.D. Electronically signed on: 01/08/2024 Securities Consultant: MILI Carrollribe Date/Time: Jan 07 2024 10:13A Dictated by: HENNY POLLACK MD This examination was interpreted and the report reviewed and electronically signed by: HENNY POLLACK MD on Jan 08 2024 11:25AM EST [facility] DBT Breast - bilateral scree ningOrdered By: Ccf Provider on 01-08-2024 [facility] CNOVon 01-07-2024 CNOV Office Visit (OBGYWM ) LUCAS ASTUDILLO ([id number]) 1955 F Date Time Provider Department 01/07/24 11:30 AM TIFFANI GANT OBBRITT During your visit today, we recorded the following information about you: Respiration Blood pressure Weight Height 16/minute 122/70 86.4 kg 1.677 m Tiffani Gant APRN.CNP 01/07/2024 11:40 AM Signed Patient declined feed adviser. 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 As applicable, any other physician, advance practice provider, medical student, or other health professional student that will be observing or involved in the sensitive examination for educational or training purposes was discussed with the Patient or Authorized Motor Vehicle Licence Examiner. The Patient or Authorized Motor Vehicle Licence Examiner has agreed to proceed with the sensitive [...] external genitalia normal, normal Bartholin's glands, urethra, Innovation's glands, no vulvar lesions, no cervical lesions, good vaginal support, physiologic discharge present, normal appearing perineal body and perianal region BIMANUAL: uterus normal size, shape and consistency, no adnexal masses, and non-tender RECTOVAGINAL: deferred. NEURO: alert and oriented x3,exam grossly non-focal EXTREMITIES: normal ASSESSMENT/PLAN: 1) Health maintenance: Pap done with HPV (more content not included)... Normal [facility] DBT Breast - bilateral scree ningon 01-07-2024 Radiology Study observation (narrative) [facility] HIGH RISK HUMAN PAPILLOMA NAE (HPV), PCR FOR DETECTION AND GENOTYPINGon 01-07-2024 HPV 16 Ag Ql (Unsp spec) Not detected Normal Not detected [facility] Comment on above: Order Comment: Speci men Type: FLUID SPECIMENOrdering Facility: [facility] Address: [address] [place] [address] Performed By: #### H PVHRT, [id number] ####[facility] LABCLIA [id number] [place] [address] [place] HPV 18 Ag Ql (Unsp spec) Not detected Normal Not detected [facility] Comment on above: Order Comment: Speci men Type: FLUID SPECIMENOrdering Facility: [facility] Address: [address] [place] [address] Performed By: #### H PVHRT, [id number] ####[facility] LABCLIA [id number] [place] [address] [place] HPV 31+33+35+39+45+51+5 2+56+58+59+66+68 DNA GUSTAVO+probe Ql (Cvx) Not detected Normal Not detected [facility] Comment on above: Order Comment: Speci men Type: FLUID SPECIMENOrdering Facility: [facility] Address: [address] [place] [address] Result Comment: High Risk HPV Other Type includes HPV types 31, 33, 35, 39, 45, 51, 52, 56, 58, 59, 66 and 68. Performed By: #### H PVHRT, [id number] ####[facility] LABCLIA [id number] [place] [address] [place] ELLIOT SCREENING W TOMOon 01-06 ELLIOT SCREENING W SAIRA * * *Final Report* * * DATE OF EXAM: Jan 07 2024 10:43AM [facility] 0582 - ELLIOT SCREENING W SIARA / PROCEDURE REASON: Encounter for screening mammogram for malignant neoplasm of breast * * * * Physician Interpretation * * * * RESULT: [place] [address] [place] [address] HISTORY: Patient is 68 years old and [...] Henny Pollack M.D. Electronically signed on: 01/08/2024 Securities Consultant: MILI Transcribe Date/Time: Jan 07 2024 10:13A Dictated by: HENNY POLLACK MD This examination was interpreted and the report reviewed and electronically signed by: HENNY POLLACK MD on Jan 08 2024 11:25AM EST [id number] Normal [facility] PAP TESTon 01-07-2024 ADEQUACY Normal [facility] Comment on above: Order Comment: Speci men Type: FLUID SPECIMENOrdering Facility: [facility] Address: [address] [place] [address] Result Comment: Sati sfactory for interpretation. No endocervical component Performed By: #### H PVHRViolet, [id number] ####[facility] LABCLIA [id number] [address] STATES OF [facility] CASE REPORT Normal [facility] Comment on above: Order Comment: Speci men Type: FLUID SPECIMENOrdering Facility: [facility] Address: [address] [place] [address] Result Comment: Gyne cologic Cytology Report Case: [id number] Authorizing Provider: Tiffani Gant APRN.SUPERVISING FILM OR VIDEOTAPE EDITOR Collected: 01/07/2024 11:26 AM Ordering Location: OB/Gynecology Received: 01/07/2024 12:00 PM First Screen: Deeds, Hardy, CT, ASCP Specimen: Pap Test, ThinPrep, Cervix Performed By: #### H PVHRT, [id number] ####[facility] LABCLIA [id number] [place] [address] [place] CLINICAL HISTORY, CYTOLOGY, IMPORT/EXPORT SPECIALIST Routine Exam Normal [facility] Comment on above: Order Comment: Speci men Type: FLUID SPECIMENOrdering Facility: [facility] Address: [address] [place] [address] Result Comment: Post Menopausal Performed By: #### H PVHRT, [id number] ####[facility] LABCLIA [id number] [place] [address] [place] FINAL PERFORMING LAB Normal [facility] Comment on above: Order Comment: Speci men Type: FLUID SPECIMENOrdering Facility: [facility] Address: [address] [place] [address] Result Comment: Tech nical component, physician scribe screening performed at [facility], [address] [place], [place] [id number] CLIA# [id number] Diagnostic interpretation performed at [facility], [address] [place] [address] CLIA# [id number] Credit Card Control Clerk: Oracio Hilario M.D. Performed By: #### H PVHRT, [id number] ####[facility] LABCLIA [id number] [place] [address] [place] HPV REFLEX Yes HPV Normal [facility] Comment on above: Order Comment: Speci men Type: FLUID SPECIMENOrdering Facility: [facility] Address: [address] [place] [address] Performed By: #### H PVHRT, [id number] ####[facility] LABCLIA [id number] [place] [address] [place] INTERPRETATION, CYTOLOGY, IMPORT/EXPORT SPECIALIST Normal [facility] Comment on above: Order Comment: Speci men Type: FLUID SPECIMENOrdering Facility: [facility] Address: [address] [place] [address] Result Comment: Nega tive for intraepithelial lesion or malignancy. Performed By: #### H PVHRT, [id number] ####[facility] LABCLIA [id number] [address] [place] PAP DISCLAIMER COMMENT The Pap Smear is a screening test for cervical cancer. False negative results occur with all screening tests, emphasizing the need for rescreening at recommended intervals, and clinical correlation. Normal [facility] Comment on above: Order Comment: Speci men Type: FLUID SPECIMENOrdering Facility: [facility] Address: [address] [place] [address] Performed By: #### H PVHRT, [id number] ####[facility] LABCLIA [id number] [address] [place] PAP RETANNED LEATHER ROLLER COMMENT This specimen has be en analyzed by the ThinPrep Imaging System, an automated imaging and review system, which assists the laboratory in evaluating cells on ThinPrep Pap tests. Following automated imaging, selected brown from every slide are reviewed by a physician scribe. Normal [facility] Comment on above: Order Comment: Speci men Type: FLUID SPECIMENOrdering Facility: [facility] Address: [address] [place] [address] Performed By: #### H PVHRT, [id number] ####[facility] LABCLIA [id number] [address] OF [place] CNOVon 12-24-2023 CNOV Office Visit (FAMPWS ) LUCAS ASTUDILLO ([id number]) 1955 F Date Time Provider Department 12/24/23 2:00 PM NATALIA MONGE FAMPWS During your visit today, we recorded the following information about you: Pulse Respiration Blood pressure Weight 68/minute 16/minute 120/80 88.9 kg Celia Rider MA 12/24/2023 2:11 PM Signed 12/24/2023: Home [...] next visi (more content not included)... Normal [facility] ([id number]) 1955 F Date Time Provider Department 12/22/23 NATALIA MONGE [facility] During your visit today, we recorded [...] Status:Closed by CRYSTAL HENNING on 12/22/23 Normal [facility] CNOVon 12-03-2023 CNOV Office Visit (FAMPWS ) LUCAS ASTUDILLO ([id number]) 1955 F Date Time Provider Department 12/03/23 [...] - ICD (more content not included)... Normal [facility] Elbow min 3 Viewson 10-29-19 Elbow min 3 Views [facility] Imaging Services [address] [place], [place] [address] Elbow min 3 Views MR#: [id number] Acct: [id number] Name: LUCAS ASTUDILLO Rep #: [id number] : 1955 F 68 From: Noam pritchard DO PCP: Dr. Eugenio Peralta MD Status: PRE ER Study: Elbow min 3 Views Date of Exam: 10/29/23 Exam# [id number] Ordering Dr: Harrison Cross DO [id number] EXAM: XR LEFT ELBOW COMPLETE, 3 OR [...] Harrison Cross DO; Dr. Eugenio Peralta MD Securities Consultant: Signed Normal [facility] Emergency Department Summary on 10-29-2023 Emergency Department Summary [facility] Medical Records Department [address] [place] [address] Emergency Department Summary 10/29/23 MR#: [id number] Acct: [id number] Name: LUCAS ASTUDILLO Rep #: [id number] : 1955 68 From: Harrison Amaya PCP: [...] tissue swelling (more content not included)... Normal [facility] Lumbar Spine 2 or 3 Viewson 10-29-2023 Lumbar Spine [address] [facility] Imaging Services [address] [place], [place] [id number] Lumbar Spine 2 or 3 Views MR#: [id number] Acct: [id number] Name: LUCAS ASTUDILLO Rep #: [id number] : 1955 F 68 From: Noam pritchard DO PCP: Dr. Eugenio Peralta MD Status: PRE ER Study: Lumbar Spine 2 or 3 Views Date of Exam: Exam# [id number] Ordering Dr: Harrison Cross DO [id number] EXAM: XR LUMBOSACRAL SPINE, 2 OR 3 [...] Harrison Cross DO; Dr. Eugenio Peralta MD Securities Consultant: Signed Normal [facility] Thoracic Spine 3 Viewson Thoracic Spine [address] [facility] Imaging Services [address] [place] [address] Thoracic Spine 3 Views MR#: [id number] Acct: [id number] Name: LUCAS ASTUDILLO Rep #: [id number] : 1955 F 68 From: Noam pritchard DO PCP: Dr. Eugenio Peralta MD Status: PRE ER Study: Thoracic Spine 3 Views Date of Exam: 10/29/23 Exam# [id number] Ordering Dr: Harrison Cross DO [id number] EXAM: XR THORACIC SPINE, 3 VIEWS CLINICAL [...] Harrison Cross DO; Dr. Eugenio Peralta MD Securities Consultant: [facility]igned [facility] Office [facility] (FAMPWS ) LUCAS ASTUDILLO ([id number]) 1955 F Date Time Provider Department 10/26/23 11:00 AM [facility] During your visit today, we recorded the [...] in the medical record. Dr Kovacs, sees IMPORT/EXPORT SPECIALIST, [facility]. Medical/Family history review Reviewed and updated allergies. [...] No history of dysuria, frequency or incontinence IMPORT/EXPORT SPECIALIST: Negative for abnormal vaginal bleeding, abnormal vaginal [...] health and behavioral disorders [Z13.39] Order(s):DEPRESSION SCREENING [[id number]] Order #: [id number]: 1 ANXIETY SCREENING [[id number]] Order #: [id number]: 1 ADVANCE CARE PLAN DISCUSSION [[id number]] Order #: [id number]: 1 Prescriptions as of 10/26/2023 - sucralfate [...] ESOPHAGUS [K22.4] (more content not included)... Normal [facility] CBC W Auto Differential pane l (Bld)on 10-20-2023 Basophils (Bld) [#/Vol] 10*3/uL Normal <0.11 [facility] Comment on above: Order Comment: Speci men Type: BLOOD SPECIMENOrdering Facility: [facility] Address: [address] [place] [address] Performed By: #### 5 7021-8 ####[facility] LABCLIA [id number] [place] [address] [place] Basophils/100 WBC (Bld) 0.2 % Normal [facility] Comment on above: Order Comment: Speci men Type: BLOOD SPECIMENOrdering Facility: [facility] Address: [address] [place] [address] Performed By: #### 5 7021-8 ####[facility] LABCLIA [id number] [place] [address] [place] Differential cell count method Nom (Bld) Auto Normal [facility] Comment on above: Order Comment: Speci men Type: BLOOD SPECIMENOrdering Facility: [facility] Address: [address] [place] [address] Performed By: #### 5 7021-8 ####[facility] LABCLIA [id number] [place] [address] [place] Eosinophils (Bld) [#/Vol] 0.08 10*3/uL Normal <0.46 [facility] Comment on above: Order Comment: Speci men Type: BLOOD SPECIMENOrdering Facility: [facility] Address: [address] [place] [address] Performed By: #### 5 7021-8 ####[facility] LABCLIA [id number] [place] [address] [place] Eosinophils/100 WBC (Bld) 1.8 % Normal [facility] Comment on above: Order Comment: Speci men Type: BLOOD SPECIMENOrdering Facility: [facility] Address: [address] [place] [address] Performed By: #### 5 7021-8 ####[facility] LABCLIA [id number] [place] [address] [place] Erythrocyte distribution width (RBC) [Ratio] 13.9 % Normal 11.5-15.0 [facility] Comment on above: Order Comment: Speci men Type: BLOOD SPECIMENOrdering Facility: [facility] Address: [address] [place] [address] Performed By: #### 5 7021-8 ####[facility] LABIA [id number] [place] [address] [place] Hematocrit (Bld) [Volume fraction] 41.5 % Normal 36.0-46.0 [facility] Comment on above: Order Comment: Speci men Type: BLOOD SPECIMENOrdering Facility: [facility] Address: [address] [place] [address] Performed By: #### 5 7021-8 ####[facility] LABCLIA [id number] [place] [address] [place] Hemoglobin (Bld) [Mass/Vol] 13.2 g/dL Normal 11.5-15.5 [facility] Comment on above: Order Comment: Speci men Type: BLOOD SPECIMENOrdering Facility: [facility] Address: [address] [place] [address] Performed By: #### 5 7021-8 ####[facility] LABCLIA [id number] [place] [address] [place] Immature granulocytes (Bld) [#/Vol] 10*3/uL Normal <0.10 [facility] Comment on above: Order Comment: Speci men Type: BLOOD SPECIMENOrdering Facility: [facility] Address: [address] [place] [address] Performed By: #### 5 7021-8 ####[facility] LABCLIA [id number] [place] [address] [place] Immature granulocytes/100 WBC (Bld) 0.2 % Normal [facility] Comment on above: Order Comment: Speci men Type: BLOOD SPECIMENOrdering Facility: [facility] Address: [address] [place] [address] Performed By: #### 5 7021-8 ####[facility] LABCLIA [id number] [place] [address] [place] Lymphocytes (Bld) [#/Vol] 1.43 10*3/uL Normal 1.00-4.00 [facility] Comment on above: Order Comment: Speci men Type: BLOOD SPECIMENOrdering Facility: [facility] Address: [address] [place] [address] Performed By: #### 5 7021-8 ####[facility] LABCLIA [id number] [place] [address] [place] Lymphocytes/100 WBC (Bld) 32.4 % Normal [facility] Comment on above: Order Comment: Speci men Type: BLOOD SPECIMENOrdering Facility: [facility] Address: [address] [place] [address] Performed By: #### 5 7021-8 ####[facility] LABCLIA [id number] [place] [address] [place] MCH (RBC) [Entitic mass] 29.2 pg Normal 26.0-34.0 [facility] Comment on above: Order Comment: Speci men Type: BLOOD SPECIMENOrdering Facility: [facility] Address: [address] [place] [address] Performed By: #### 5 7021-8 ####[facility] LABCLIA [id number] [place] [address] [place] MCHC (RBC) [Mass/Vol] 31.8 g/dL Normal 30.5-36.0 [facility] Comment on above: Order Comment: Speci men Type: BLOOD SPECIMENOrdering Facility: [facility] Address: [address] [place] [address] Performed By: #### 5 7021-8 ####[facility] LABIA [id number] [place] [address] [place] MCV (RBC) [Entitic vol] 91.8 fL Normal 80.0-100.0 [facility] Comment on above: Order Comment: Speci men Type: BLOOD SPECIMENOrdering Facility: [facility] Address: [address] [place] [address] Performed By: #### 5 7021-8 ####[facility] LABIA [id number] [place] [address] [place] Monocytes (Bld) [#/Vol] 0.26 10*3/uL Normal <0.87 [facility] Comment on above: Order Comment: Speci men Type: BLOOD SPECIMENOrdering Facility: [facility] Address: [address] [place] [address] Performed By: #### 5 7021-8 ####[facility] LABIA [id number] [place] [address] [place] Monocytes/100 WBC (Bld) 5.9 % Normal [facility] Comment on above: Order Comment: Speci men Type: BLOOD SPECIMENOrdering Facility: [facility] Address: [address] [place] [address] Performed By: #### 5 7021-8 ####[facility] LABIA [id number] [place] [address] [place] Neutrophils (Bld) [#/Vol] 2.63 10*3/uL Normal 1.45-7.50 [facility] Comment on above: Order Comment: Speci men Type: BLOOD SPECIMENOrdering Facility: [facility] Address: [address] [place] [address] Performed By: #### 5 7021-8 ####[facility] LABCLIA [id number] [place] [address] [place] Neutrophils/100 WBC (Bld) 59.5 % Normal [facility] Comment on above: Order Comment: Speci men Type: BLOOD SPECIMENOrdering Facility: [facility] Address: [address] [place] [address] Performed By: #### 5 7021-8 ####[facility] LABCLIA [id number] [place] [address] [place] Nucleated RBC (Bld) [#/Vol] 10*3/uL Normal <0.01 [facility] Comment on above: Order Comment: Speci men Type: BLOOD SPECIMENOrdering Facility: [facility] Address: [address] [place] [address] Performed By: #### 5 7021-8 ####[facility] LABCLIA [id number] [place] [address] [place] Nucleated RBC/100 WBC (Bld) [Ratio] 0.0 /100 WBC Normal [facility] Comment on above: Order Comment: Speci men Type: BLOOD SPECIMENOrdering Facility: [facility] Address: [address] [place] [address] Performed By: #### 5 7021-8 ####[facility] LABIA [id number] [place] [address] [place] Platelet mean volume (Bld) [Entitic vol] 11.7 fL Normal 9.0-12.7 [facility] Comment on above: Order Comment: Speci men Type: BLOOD SPECIMENOrdering Facility: [facility] Address: [address] [place], [place] [address] Performed By: #### 5 7021-8 ####[facility] LABCLIA [id number] [address] [address] [place] Platelets (Bld) [#/Vol] 169 10*3/uL Normal 150-400 [facility] Comment on above: Order Comment: Speci men Type: BLOOD SPECIMENOrdering Facility: [facility] Address: [address] [place] [address] Performed By: #### 5 7021-8 ####[facility] LABIA [id number] [address] [address] [place] RBC (Bld) [#/Vol] 4.52 10*6/uL Normal 3.90-5.20 [facility] Comment on above: Order Comment: Speci men Type: BLOOD SPECIMENOrdering Facility: [facility] Address: [address] [place] [address] Performed By: #### 5 7021-8 ####[facility] LABIA [id number] [place] [id number] [place] WBC (Bld) [#/Vol] 4.42 10*3/uL Normal 3.70-11.00 [facility] Comment on above: Order Comment: Speci men Type: BLOOD SPECIMENOrdering Facility: [facility] Address: [address] [place] [address] Performed By: #### 5 7021-8 ####[facility] LABIA [id number] [address] [address] [place] Comprehensive metabolic 2000 panelon 10-20-2023 Albumin [Mass/Vol] 4.1 g/dL Normal 3.9-4.9 [facility] Comment on above: Order Comment: Speci men Type: BLOOD SPECIMENOrdering Facility: [facility] Address: [address] [place] [address] Performed By: #### 2 4331-1, 71655-2 ####[facility] LABCLIA [id number] [place] [id number] [place] ALP [Catalytic activity/Vol] 74 U/L Normal 34-123 [facility] Comment on above: Order Comment: Speci men Type: BLOOD SPECIMENOrdering Facility: [facility] Address: [address] [place] [address] Performed By: #### 2 4331-1, 31125-4 ####[facility] LABCLIA [id number] [place] [address] [place] ALT [Catalytic activity/Vol] 14 U/L Normal 7-38 [facility] Comment on above: Order Comment: Speci men Type: BLOOD SPECIMENOrdering Facility: [facility] Address: [address] [place] [address] Performed By: #### 2 4331-1, 66518-4 ####[facility] LABCLIA [id number] [place] [address] [place] Anion gap [Moles/Vol] 10 mmol/L Normal 8-15 [facility] Comment on above: Order Comment: Speci men Type: BLOOD SPECIMENOrdering Facility: [facility] Address: [address] [place] [address] Performed By: #### 2 4331-1, 50980-9 ####[facility] LABCLIA [id number] [place] [address] [place] AST [Catalytic activity/Vol] 18 U/L Normal 13-35 [facility] Comment on above: Order Comment: Speci men Type: BLOOD SPECIMENOrdering Facility: [facility] Address: [address] [place] [address] Performed By: #### 2 4331-1, 98844-9 ####[facility] LABCLIA [id number] [place] [id number] [place] Bilirubin [Mass/Vol] 0.4 mg/dL Normal 0.2-1.3 [facility] Comment on above: Order Comment: Speci men Type: BLOOD SPECIMENOrdering Facility: [facility] Address: [address] [place] [address] Performed By: #### 2 4331-1, ####[facility] LABCLIA [id number] [place] [address] [place] Calcium [Mass/Vol] 9.4 mg/dL Normal 8.5-10.2 [facility] Comment on above: Order Comment: Speci men Type: BLOOD SPECIMENOrdering Facility: [facility] Address: [address] [place] [address] Performed By: #### 2 4331-1, ####[facility] LABCLIA [id number] [place] [address] [place] Chloride [Moles/Vol] 107 mmol/L Normal 98-107 [facility] Comment on above: Order Comment: Speci men Type: BLOOD SPECIMENOrdering Facility: [facility] Address: [address] [place] [address] Performed By: #### 2 4331-1, ####[facility] LABCLIA [id number] [place] [address] [place] CO2 [Moles/Vol] 25 mmol/L Normal 22-30 [facility] Comment on above: Order Comment: Speci men Type: BLOOD SPECIMENOrdering Facility: [facility] Address: [address] [place] [id number] Performed By: #### 2 4331-1, ####[facility] LABCLIA [id number] [place] [address] [place] Creatinine [Mass/Vol] 1.01 mg/dL High 0.58-0.96 [facility] Comment on above: Order Comment: Speci men Type: BLOOD SPECIMENOrdering Facility: [facility] Address: [address] [place], [place] [address] Performed By: #### 2 4331-1, 54583-5 ####[facility] LABIA [id number] [place] [address] [place] Creatinine and Glomerular filtration rate.predicted panel (S/P/Bld) 61 mL/min/1.73m??? Normal >=60 [facility] Comment on above: Order Comment: Jose R zuniga Type: BLOOD SPECIMENOrdering Facility: [facility] Address: [address] [place] [address] Result Comment: Debra mated Glomerular Filtration Rate [...] actual GFR. Performed By: #### 2 4331-1, 29331-7 ####[facility] LABIA [id number] [place] [address] [place] Glucose [Mass/Vol] 87 mg/dL Normal 74-99 [facility] Comment on above: Order Comment: Jose R zuniga Type: BLOOD SPECIMENOrdering Facility: [facility] Address: [address] [place] [address] Result Comment: The [place] Diabetes Association (ADA) provides guidance for cutoff [...] Standards of Medical Care in Diabetes 2016, [place] Diabetes Association. Diabetes Care. 2016.39(Suppl 1). Performed By: #### 2 4331-, ####[facility] LABCLIA [id number] [address] [address] [place] Potassium [Moles/Vol] 4.4 mmol/L Normal 3.7-5.1 [facility] Comment on above: Order Comment: Speci men Type: BLOOD SPECIMENOrdering Facility: [facility] Address: [address] [place] [address] Performed By: #### 2 4331-, ####[facility] LABCLIA [id number] [place] [address] [place] Protein [Mass/Vol] 7.2 g/dL Normal 6.3-8.0 [facility] Comment on above: Order Comment: Speci men Type: BLOOD SPECIMENOrdering Facility: [facility] Address: [address] [place] [address] Performed By: #### 2 43303-30, ####[facility] LABIA [id number] [place] [id number] [place] Sodium [Moles/Vol] 142 mmol/L Normal 136-144 [facility] Comment on above: Order Comment: Speci men Type: BLOOD SPECIMENOrdering Facility: [facility] Address: [address] [place] [address] Performed By: #### 2 4331-, ####[facility] LABCLIA [id number] [place] [id number] [place] Urea nitrogen [Mass/Vol] 19 mg/dL Normal 7-21 [facility] Comment on above: Order Comment: Speci men Type: BLOOD SPECIMENOrdering Facility: [facility] Address: [address] [place] [address] Performed By: #### 2 4331-1, ####[facility] LABCLIA [id number] [place] [id number] [place] Lipid 1996 panelon 07-23-202 4 Cholesterol [Mass/Vol] 136 mg/dL Normal <200 [facility] Comment on above: Order Comment: Speci men Type: BLOOD SPECIMENOrdering Facility: [facility] Address: [address] [place] [address] Result Comment: <200 mg/dL, Desirable 200-239 mg/dL, Borderline high >239 mg/dL, High Performed By: #### 2 4331-1, 57565-7 ####[facility] LABCLIA [id number] [address] STATES [facility] Cholesterol in HDL [Mass/Vol] 37 mg/dL Low >39 [facility] Comment on above: Order Comment: Speci men Type: BLOOD SPECIMENOrdering Facility: [facility] Address: [address] [place] [address] Result Comment: 40-5 9 mg/dL, Acceptable >59 mg/dL, High: Negative risk factor for coronary heart disease <40 mg/dL, Low: Positive risk factor for coronary heart disease Performed By: #### 2 4331-1, 49331-4 ####[facility] LABCLIA [id number] [address] STATES [facility] Cholesterol in LDL [Mass/Vol] 73 mg/dL Normal <100 [facility] Comment on above: Order Comment: Speci men Type: BLOOD SPECIMENOrdering Facility: [facility] Address: [address] [place] [address] Result Comment: <100 mg/dL, Optimal 100-129 mg/dL, Near optimal/above optimal 130-159 mg/dL, Borderline high 160-189 mg/dL, High >189 mg/dL, Very high Secondary prevention optimal LDL Cholesterol levels are recommended to be < 70 mg/dL Performed By: #### 2 4331-1, 18792-3 ####[facility] LABCLIA [id number] [facility] [place] [id number] [place] Cholesterol in LDL/Cholesterol in HDL [Mass ratio] 1.97 {ratio} Normal <2.54 [facility] Comment on above: Order Comment: Jose R zuniga Type: BLOOD SPECIMENOrdering Facility: [facility] Address: [address] [place] [address] Result Comment: Rick alexander: 1. National Cholesterol Education Program ATP III Guideline At-A-Glance Quick Desk Reference: National Heart, Lung, and Blood Raymond. National Institutes of Health. 2001: NIH Publication No. 01-3305. 2. An International Atherosclerosis Society position paper: global recommendations for the management of dyslipidemia: executive summary, Atherosclerosis. 2014: 232(2):410-413. Performed By: #### 2 4331-1, ####[facility] LABCLIA [id number] [place] [address] [place] Cholesterol in VLDL [Mass/Vol] 26 mg/dL Normal <30 [facility] Comment on above: Order Comment: Jose R zuniga Type: BLOOD SPECIMENOrdering Facility: [facility] Address: [address] [place] [address] Performed By: #### 2 4331-, ####[facility] LABCLIA [id number] [place] [address] [place] Cholesterol non HDL [Mass/Vol] 99 mg/dL Normal <130 [facility] Comment on above: Order Comment: Jose R zuniga Type: BLOOD SPECIMENOrdering Facility: [facility] Address: [address] [place] [address] Result Comment: <130 mg/dL, Optimal 130-159 mg/dL, Near optimal/above optimal 160-189 mg/dL, Borderline high 190-219 mg/dL, High >219 mg/dL, Very high Secondary prevention optimal non HDL Cholesterol levels are recommended to be <100 mg/dL Performed By: #### 2 4331-1, 52392-0 ####[facility] LABCLIA [id number] [place] [address] [place] Cholesterol.total/C holesterol in HDL [Mass ratio] 3.68 {ratio} Normal <5.10 [facility] Comment on above: Order Comment: Speci men Type: BLOOD SPECIMENOrdering Facility: [facility] Address: [address] [place] [address] Performed By: #### 2 4331-1, 55907-3 ####[facility] LABCLIA [id number] [place] [address] [place] FASTING TIME 14 hrs Normal [facility] Comment on above: Order Comment: Speci men Type: BLOOD SPECIMENOrdering Facility: [facility] Address: [address] [place] [address] Performed By: #### 2 4331-1, ####[facility] LABCLIA [id number] [place] [address] [place] Triglyceride [Mass/Vol] 130 mg/dL Normal <150 [facility] Comment on above: Order Comment: Speci men Type: BLOOD SPECIMENOrdering Facility: [facility] Address: [address] [place] [address] Result Comment: <150 mg/dL, Normal 150-199 mg/dL, Borderline high 200-499 mg/dL, High >499 mg/dL, Very high Performed By: #### 2 4331-1, 41533-9 ####[facility] LABCLIA [id number] [place] [address] [place] CNOVon 08-01-2023 CNOV Office Visit ([facility] ) LUCAS ASTUDILLO ([id number]) 1955 F Date Time Provider Department 08/01/23 10:45 AM ENMANUEL WONG [facility] During your visit today, we recorded [...] Carpal Tunn (more content not included)... Normal [facility] CNOVon 05-26-2023 CNOV Office Visit ([facility] ) LUCAS ASTUDILLO ([id number]) 1955 F Date Time Provider Department 05/26/23 2:30 PM LEXY KOVACS [facility] During your visit today, we recorded the following information about you: Pulse Blood pressure 64/minute 125/76 Lexy Kovacs, 05/26/2023 3:08 PM Signed [facility] DEPARTMENT OF VASCULAR SURGERY OUTPATIENT VISIT DATE [...] NAME: Lucas (more content not included)... Normal [facility] CNTHERAPYon 05-04-2023 CNTHERAPY OT/PT/Speech Visit ( [facility]) LUCAS ASTUDILLO ([id number]) 1955 F Date Time Provider Department 05/04/23 3:45 PM REJI MORGAN PTWS Date Time Provider Department [place] 05/04/2023 3:45 PM [id number], COLIN PTWS Cristin Shaw Reason for Visit: [...] UNIT TAB) Take one(1) tablet twice daily. Animal Therapist: Therapy (PT/OT/Speech/Resp) ID: [id number] 05/04/2023 3:16 PM Author: REJI MORGAN Signed by REJI MORGAN PT on 05/04/2023 at 3:16 PM Document text: Program_ID:[id number] Access Code: [email or web address] URL: [email or web address] Date: 05-04-2023 Prepared By: Reji Morgan Program [...] 2-3 sets - reps Therapy (PT/OT/Speech/Resp) ID: [id number] 05/04/2023 3:13 PM Author: REJI MROGAN Signed by REJI MORGAN PT on 05/04/2023 at 3:13 PM Document text: Program_ID:[id number] Access Code: [email or web address] URL: [email or web address] Date: 05-04-2023 Prepared By: Reji Morgan Program [...] - 2 sets - 10 reps Normal [facility] THERAPY NTon 05-04-2023 THERAPY NT HNO ID: [id number] Author: REJI MORGAN, PT Service: ? Author Type: Physical Therapist Type: Therapy (PT/OT/Speech/Resp) Filed: 05/04/2023 15:16 Note Text: Program_ID:[id number] Access Code: [email or web address] URL: [email or web address] Date: 05-04-2023 Prepared By: Reji Morgan Program [...] weekly - 2-3 sets - reps Normal [facility] THERAPY NT HNO ID: [id number] Author: REJI MORGAN, PT Service: ? Author Type: Physical Therapist Type: Therapy (PT/OT/Speech/Resp) Filed: 05/04/2023 15:13 Note Text: Program_ID:[id number] Access Code: [email or web address] URL: [email or web address] Date: 05-04-2023 Prepared By: Reji Morgan Program [...] - 2 sets - 10 reps Normal [facility] CNOVon 04-21-2023 CNOV Office Visit ([facility] ) LUCAS ASTUDILLO ([id number]) 1955 F Date Time Provider Department 04/21/23 3:00 PM [facility] visit today, we recorded [...] arm with trying to reach overhead, negative [place]'s, negative Martinez, negative lift off. Tender trigger [...] - TIZANID (more content not included)... Normal [facility] XR Chest PA and Lateralon IMPRESSION: No acute radiographic abnormality. Securities Consultant: TARAN Transcribe Date/Time: Mar 31 2023 12:59P Dictated by : JESUSITA RODRIGUEZ MD This examination was interpreted and the report reviewed and electronically signed by: JESUSITA RODRIGUEZ MD on Mar 31 2023 12:59PM [facility] DIVISION OF RADIOLOGY * * *Final Report* [...] spine. DIVISION OF RADIOLOGY Provider, Alison Gracia [facility] - 03/31/2023 * * *Final Report* [...] spine. IMPRESSION IMPRESSION: No acute radiographic abnormality. Securities Consultant: PSCB Transcribe Date/Time: Mar 31 2023 12:59P Dictated by : JESUSITA RODRIGUEZ MD This examination was interpreted and the report reviewed and electronically signed by: JESUSITA RODRIGUEZ MD on Mar 31 2023 12:59PM EST [facility] Radiology Study observation (narrative) [facility] XR Chest PA and LateralOrder ed By: Ccf Provider on 03-31-2023 [facility] ELLIOT SCREENING W TOMOon 01-05 [facility] XR Foot - bilateral AP and L ateral and obliqueon 12-18-2022 IMPRESSION: No acute osseous abnormality Securities Consultant: PSCB Transcribe Date/Time: Dec 18 2022 7:42A [...] plantar calcaneal spur. DIVISION OF RADIOLOGY Provider, [facility] Gracia [facility] - 12/18/2022 * * *Final Report* [...] spur. IMPRESSION IMPRESSION: No acute osseous abnormality Securities Consultant: TARAN Transcribe Date/Time: Dec 18 2022 7:42A Dictated by : ESTRELLA PINEDA MD This examination was interpreted and the report reviewed and electronically signed by: ESTRELLA PINEDA MD on Dec 18 2022 7:47AM EST [facility] XR Foot - bilateral AP and L ateral and obliqueOrdered By: Ccf Provider on 12-18-2022 [facility] XR Foot - bilateral AP and L ateral and obliqueon 12-16-2022 Radiology Study observation (narrative) [facility] DXA-AXIAL SKELETONon 023 LOWEST T-SCORE -2.0 [facility] US SCREENING FOR AAAon 12-03 [facility] XR Lumbar spine 3 Viewson IMPRESSION: DEGENERATIVE CHANGE AND ALIGNMENT ABNORMALITIES DESCRIBED. Securities Consultant: PSC Transcribe Date/Time: Nov 17 2022 2:21P Dictated by : JEN COLINDRES MD This examination was interpreted and the report reviewed and electronically signed by: JEN COLINDRES MD on Nov 17 2022 2:23PM [facility] DIVISION OF RADIOLOGY * * *Final Report* [...] IMPRESSION: DEGENERATIVE CHANGE AND ALIGNMENT ABNORMALITIES DESCRIBED. Securities Consultant: PSCB Transcribe Date/Time: Nov 17 2022 2:21P Dictated by : JEN COLINDRES MD This examination was interpreted and the report reviewed and electronically signed by: JEN COLINDRES MD on Nov 17 2022 2:23PM EST [facility] XR Lumbar spine 3 ViewsOrder ed By: Ccf Provider on 11-17-2022 [facility] XR Lumbar spine 3 Viewson Radiology Study observation (narrative) [facility] STREP A MOLECULAR (POC)on Procedural Control Valid [facility] Strep A (POCT) Negative Negative [facility] SURGICAL PATHOLOGYon 023 Case Report Surgical Pathology R eport Case: [id number] Authorizing Provider: Eriberto Disla MD Collected: 10/20/2022 09:07 AM Ordering Location: Ambulatory Surgery Received: 10/20/2022 01:38 PM Pathologist: Chanelle Felix MD Specimens: A) - DUODENUM BIOPSY B) - ANTRUM (STOMACH) BIOPSY, Antral for H/H C) - ESOPHAGUS BIOPSY, distal esophagus bx D) - ESOPHAGUS MID BIOPSY [facility] FINAL DIAGNOSIS A. Duodenum, biopsy: [...] significant histologic abnormality -Negative for intraepithelial eosinophils [facility] Gross Description A. DUODENUM BIOPSY [...] in one cassette. Gross examination performed at [facility], [address] [place] [id number] JT 10/21/2022 2:19 AM [facility] Performing Lab Diagnostic interpret ation performed at [facility], [address] [place], [place] [id number] CLIA# [id number] Credit Card Control Clerk: Oracio Hilario M.D. [facility] XR Hand - right PA and Later al and Obliqueon 10-21-2022 IMPRESSION: No radiographic evidence of acute osseous abnormality Securities Consultant: [facility] Transcribe Date/Time: Oct 21 2022 1:32P Dictated by : YOUNG CHAO MD This examination was interpreted and the report reviewed and electronically signed by: YOUNG CHAO MD on Oct 21 2022 1:34PM [facility] DIVISION OF RADIOLOGY * * *Final Report* [...] radiopaque foreign body. DIVISION OF RADIOLOGY Provider, [facility] - 10/21/2022 * * *Final Report* [...] No radiographic evidence of acute osseous abnormality Securities Consultant: [facility] Transcribe Date/Time: Oct 21 2022 1:32P Dictated by : YOUNG CHAO MD This examination was interpreted and the report reviewed and electronically signed by: YOUNG CHAO MD on Oct 21 2022 1:34PM EST [facility] Radiology Study observation (narrative) [facility] XR Hand - right PA and Later al and ObliqueOrdered By: Ccf Provider on 10-21-2022 [facility] EGD DIAGNOSTICon 10-20-2022 [facility] XR CHEST 2V FRONTAL/LATon [facility] XR Chest PA and Lateralon IMPRESSION: No acute radiographic abnormality. Securities Consultant: [facility] Transcribe Date/Time: Feb 17 2022 10:30A Dictated [...] soft tissues: Unremarkable. DIVISION OF RADIOLOGY Provider, [facility] - 02/17/2022 * * *Final Report* [...] Unremarkable. IMPRESSION IMPRESSION: No acute radiographic abnormality. Securities Consultant: [employer] Transcribe Date/Time: Feb 17 2022 10:30A Dictated by : JEN COLINDRES MD This examination was interpreted and the report reviewed and electronically signed by: JEN COLINDRES MD on Feb 17 2022 10:31AM [facility] Radiology Study observation (narrative) [facility] XR Chest PA and LateralOrder ed By: Ccf Provider on 02-17-2022 [facility] STREP A MOLECULAR (POC)on Procedural Control Valid [facility] Strep A (POCT) Negative Negative [facility] Vital Signs Date Time Vital Sign Value Performing Clinician Facility 03-14-2024 11:14-0500 Body mass index (BMI) [Ratio] 31.08 kg/m2 Eugenio Peralta MD Work Phone: [facility] 03-14-2024 11:14-0500 Body weight 87.4 kg Eugenio Peralta MD Work Phone: [facility] 03-14-2024 11:14-0500 Diastolic blood pressure 72 mm[Hg] Eugenio Peralta MD Work Phone: [facility] 03-14-2024 11:14-0500 Heart rate 64 /min Eugenio Peralta MD Work Phone: [facility] 03-14-2024 11:14-0500 SaO2% (BldA) [Mass fraction] 97 % Eugenio Peralta MD Work Phone: [facility] 03-14-2024 11:14-0500 Systolic blood pressure 122 mm[Hg] Eugenio Peralta MD Work Phone: [facility] 02-22-2024 11:45-0500 Diastolic blood pressure 88 mm[Hg] Lola Farris MACHINE SHOP APPRENTICE.SUPERVISING FILM OR VIDEOTAPE EDITOR Work Phone: [facility] Comment on above: BALA BP 02-22-2024 11:45-0500 Heart rate 58 /min Lola Farris MACHINE SHOP APPRENTICE.SUPERVISING FILM OR VIDEOTAPE EDITOR Work Phone: [facility] 02-22-2024 11:45-0500 Systolic blood pressure 158 mm[Hg] Lola Farris MACHINE SHOP APPRENTICE.SUPERVISING FILM OR VIDEOTAPE EDITOR Work Phone: [facility] Comment on above: BALA BP 02-22-2024 11:36-0500 Respiratory rate 16 /min Lola Farris MACHINE SHOP APPRENTICE.SUPERVISING FILM OR VIDEOTAPE EDITOR Work Phone: [facility] 02-22-2024 11:36-0500 SaO2% (BldA) [Mass fraction] 98 % Lola Farris MACHINE SHOP APPRENTICE.SUPERVISING FILM OR VIDEOTAPE EDITOR Work Phone: [facility] 01-07-2024 10:49-0400 Body height 167.7 cm Tiffani Alfreda MACHINE SHOP APPRENTICE.SUPERVISING FILM OR VIDEOTAPE EDITOR Work Phone: [facility] 01-07-2024 10:49-0400 Body mass index (BMI) [Ratio] 30.71 kg/m2 Tiffani Orrum MACHINE SHOP APPRENTICE.SUPERVISING FILM OR VIDEOTAPE EDITOR Work Phone: [facility] 01-07-2024 10:49-0400 Body weight 86.36 kg Tiffani Orrum MACHINE SHOP APPRENTICE.SUPERVISING FILM OR VIDEOTAPE EDITOR Work Phone: [facility] 01-07-2024 10:49-0400 Diastolic blood pressure 70 mm[Hg] Tiffani Orrum MACHINE SHOP APPRENTICE.SUPERVISING FILM OR VIDEOTAPE EDITOR Work Phone: [facility] 01-07-2024 10:49-0400 Respiratory rate 16 /min Tiffani Alfreda MACHINE SHOP APPRENTICE.SUPERVISING FILM OR VIDEOTAPE EDITOR Work Phone: [facility] 01-07-2024 10:49-0400 Systolic blood pressure 122 mm[Hg] Tiffani Alfreda MACHINE SHOP APPRENTICE.SUPERVISING FILM OR VIDEOTAPE EDITOR Work Phone: [facility] 12-24-2023 14:19-0400 Diastolic blood pressure 80 mm[Hg] Natalia Suppan MACHINE SHOP APPRENTICE.SUPERVISING FILM OR VIDEOTAPE EDITOR Work Phone: [facility] 12-24-2023 14:19-0400 Systolic blood pressure 120 mm[Hg] Natalia Suppan MACHINE SHOP APPRENTICE.SUPERVISING FILM OR VIDEOTAPE EDITOR Work Phone: [facility] 12-24-2023 14:07-0400 Body mass index (BMI) [Ratio] 31.63 kg/m2 Natalia Suppan MACHINE SHOP APPRENTICE.SUPERVISING FILM OR VIDEOTAPE EDITOR Work Phone: [facility] 12-24-2023 14:07-0400 Body weight 88.9 kg Natalia Suppan MACHINE SHOP APPRENTICE.SUPERVISING FILM OR VIDEOTAPE EDITOR Work Phone: [facility] 12-24-2023 14:07-0400 Heart rate 68 /min Natalia Suppan MACHINE SHOP APPRENTICE.SUPERVISING FILM OR VIDEOTAPE EDITOR Work Phone: [facility] 12-24-2023 14:07-0400 Respiratory rate 16 /min Natalia Suppan MACHINE SHOP APPRENTICE.SUPERVISING FILM OR VIDEOTAPE EDITOR Work Phone: [facility] 12-24-2023 14:07-0400 SaO2% (BldA) [Mass fraction] 98 % Natalia Troyshay MIKESUPERVISING FILM OR VIDEOTAPE EDITOR Work Phone: [facility] 12-03-2023 09:27-0400 Body mass index (BMI) [Ratio] 31.15 kg/m2 Mayra Lan PA-C Work Phone: [facility] 12-03-2023 09:27-0400 Body temperature 97.7 [degF] Mayra Lan PA-C Work Phone: [facility] 12-03-2023 09:27-0400 Body weight 87.54 kg Mayra Lan PA-C Work Phone: [facility] 12-03-2023 09:27-0400 Diastolic blood pressure 86 mm[Hg] Mayra Lan PA-C Work Phone: [facility] 12-03-2023 09:27-0400 Heart rate 64 /min Mayra Lan PA-C Work Phone: [facility] 12-03-2023 09:27-0400 Respiratory rate 16 /min Mayra Lan PA-C Work Phone: [facility] 12-03-2023 09:27-0400 SaO2% (BldA) [Mass fraction] 97 % Mayra Lan PA-C Work Phone: [facility] 12-03-2023 09:27-0400 Systolic blood pressure 136 mm[Hg] Mayra Lan PA-C Work Phone: [facility] 10-26-2023 11:20-0400 Diastolic blood pressure 88 mm[Hg] Eugenio Peralta MD Work Phone: [facility] 10-26-2023 11:20-0400 Systolic blood pressure 136 mm[Hg] Eugenio Peralta MD Work Phone: [facility] 10-26-2023 10:38-0400 Body height 167.6 cm Eugenio Peralta MD Work Phone: [facility] 10-26-2023 10:38-0400 Body mass index (BMI) [Ratio] 31.47 kg/m2 Eugenio Peralta MD Work Phone: [facility] 10-26-2023 10:38-0400 Body weight 88.45 kg Eugenio Peralta MD Work Phone: [facility] 10-26-2023 10:38-0400 Heart rate 63 /min Eugenio Peralta MD Work Phone: [facility] 10-26-2023 10:38-0400 SaO2% (BldA) [Mass fraction] 98 % Eugenio Peralta MD Work Phone: [facility] 08-01-2023 10:40-0400 Body mass index (BMI) [Ratio] 31.46 kg/m2 Enmaneul Wong MD Work Phone: [facility] 08-01-2023 10:40-0400 Body temperature 98.1 [degF] Enmanuel Wong MD Work Phone: [facility] 08-01-2023 10:40-0400 Body weight 88.4 kg Enmanuel Wong MD Work Phone: [facility] 08-01-2023 10:40-0400 Diastolic blood pressure 79 mm[Hg] Enmanuel Wong MD Work Phone: [facility] 08-01-2023 10:40-0400 Heart rate 62 /min Enmanuel Wong MD Work Phone: [facility] 08-01-2023 10:40-0400 Respiratory rate 18 /min Enmanuel Wong MD Work Phone: [facility] 08-01-2023 10:40-0400 SaO2% (BldA) [Mass fraction] 99 % Enmanuel Wong MD Work Phone: [facility] 08-01-2023 10:40-0400 Systolic blood pressure 162 mm[Hg] Enmanuel Wong MD Work Phone: [facility] 05-26-2023 14:16-0500 Diastolic blood pressure 76 mm[Hg] Lexy Kovacs DO Work Phone: [facility] 05-26-2023 14:16-0500 Heart rate 64 /min Lexy Kovacs DO Work Phone: [facility] 05-26-2023 14:16-0500 SaO2% (BldA) [Mass fraction] 96 % Lexy Kovacs DO Work Phone: [facility] 05-26-2023 14:16-0500 Systolic blood pressure 125 mm[Hg] Lexy Kovacs DO Work Phone: [facility] 02-17-2023 08:46-0500 Diastolic blood pressure 77 mm[Hg] Lexy Kovacs DO Work Phone: [facility] 02-17-2023 08:46-0500 Heart rate 61 /min Lexy Kovacs DO Work Phone: [facility] 02-17-2023 08:46-0500 SaO2% (BldA) [Mass fraction] 96 % Lexy Kovacs DO Work Phone: [facility] 02-17-2023 08:46-0500 Systolic blood pressure 128 mm[Hg] Lexy Kovacs DO Work Phone: [facility] 11-14-2022 10:03-0400 Body weight 87.54 kg NA Hughes PA-C Work Phone: [facility] 11-14-2022 10:03-0400 Diastolic blood pressure 70 mm[Hg] NA Hughes PA-C Work Phone: [facility] 11-14-2022 10:03-0400 Heart rate 67 /min NA Hughes PA-C Work Phone: [facility] 11-14-2022 10:03-0400 Respiratory rate 16 /min NA Hughes PA-C Work Phone: [facility] 11-14-2022 10:03-0400 SaO2% (BldA) [Mass fraction] 97 % NA Hughes PA-C Work Phone: [facility] 11-14-2022 10:03-0400 Systolic blood pressure 120 mm[Hg] PALMER Tuckeron PA-C Work Phone: [facility] 11-01-2022 10:08-0400 Body temperature 98.29 [degF] Johanne Tom MACHINE SHOP APPRENTICE.SUPERVISING FILM OR VIDEOTAPE EDITOR Work Phone: [facility] 11-01-2022 10:08-0400 Body weight 87.73 kg Johanne Tom MACHINE SHOP APPRENTICE.SUPERVISING FILM OR VIDEOTAPE EDITOR Work Phone: [facility] 11-01-2022 10:08-0400 Diastolic blood pressure 80 mm[Hg] Johanne Tom MACHINE SHOP APPRENTICE.SUPERVISING FILM OR VIDEOTAPE EDITOR Work Phone: [facility] 11-01-2022 10:08-0400 Heart rate 57 /min Johanne Tom MACHINE SHOP APPRENTICE.SUPERVISING FILM OR VIDEOTAPE EDITOR Work Phone: [facility] 11-01-2022 10:08-0400 Respiratory rate 21 /min Johanne Tom MACHINE SHOP APPRENTICE.SUPERVISING FILM OR VIDEOTAPE EDITOR Work Phone: [facility] 11-01-2022 10:08-0400 SaO2% (BldA) [Mass fraction] 98 % Johanne Fishmank MACHINE SHOP APPRENTICE.SUPERVISING FILM OR VIDEOTAPE EDITOR Work Phone: [facility] 11-01-2022 10:08-0400 Systolic blood pressure 132 mm[Hg] Johanne Tom MACHINE SHOP APPRENTICE.SUPERVISING FILM OR VIDEOTAPE EDITOR Work Phone: [facility] 10-28-2022 10:32-0400 Body temperature 97.9 [degF] Crystal Twilight PA-C Work Phone: [facility] 10-28-2022 10:32-0400 Diastolic blood pressure 88 mm[Hg] Crystal Zeina PA-C Work Phone: [facility] 10-28-2022 10:32-0400 Heart rate 68 /min Crystal Zeina PA-C Work Phone: [facility] 10-28-2022 10:32-0400 SaO2% (BldA) [Mass fraction] 97 % Crystal Twilight PA-C Work Phone: [facility] 10-28-2022 10:32-0400 Systolic blood pressure 122 mm[Hg] Crystal Zeina PA-C Work Phone: [facility] 10-20-2022 09:45-0400 Diastolic blood pressure 86 mm[Hg] Eriberto Disla MD Work Phone: [facility] 10-20-2022 09:45-0400 Heart rate 57 /min Eriberto Disla MD Work Phone: [facility] 10-20-2022 09:45-0400 Respiratory rate 16 /min Eriberto Disla MD Work Phone: [facility] 10-20-2022 09:45-0400 SaO2% (BldA) [Mass fraction] 96 % Eriberto Disla MD Work Phone: [facility] 10-20-2022 09:45-0400 Systolic blood pressure 158 mm[Hg] Eriberto Disla MD Work Phone: [facility] 10-20-2022 07:59-0400 Body temperature 97.81 [degF] Eriberto Disla MD Work Phone: [facility] 07-22-2022 13:16-0400 Body height 167.6 cm Crystal Zeina PA-C Work Phone: [facility] 07-22-2022 13:16-0400 Body temperature 96.21 [degF] Crystal Twilight PA-C Work Phone: [facility] 07-22-2022 13:16-0400 Body weight 91.54 kg Crystal Zeina PA-C Work Phone: [facility] 07-22-2022 13:16-0400 Diastolic blood pressure 88 mm[Hg] Crystal Twilight PA-C Work Phone: [facility] 07-22-2022 13:16-0400 Heart rate 82 /min Crystal Twilight PA-C Work Phone: [facility] 07-22-2022 13:16-0400 SaO2% (BldA) [Mass fraction] 100 % Crystal Zeina PA-C Work Phone: [facility] 07-22-2022 13:16-0400 Systolic blood pressure 120 mm[Hg] Crystal Pastrana PA-C Work Phone: [facility] 02-17-2022 09:27-0500 Diastolic blood pressure 98 mm[Hg] Lola Leiagen MACHINE SHOP APPRENTICE.SUPERVISING FILM OR VIDEOTAPE EDITOR Work Phone: [facility] 02-17-2022 09:27-0500 Systolic blood pressure 150 mm[Hg] Lola Farris MACHINE SHOP APPRENTICE.SUPERVISING FILM OR VIDEOTAPE EDITOR Work Phone: [facility] 02-17-2022 08:56-0500 Body temperature 99.81 [degF] Lola Farris MACHINE SHOP APPRENTICE.SUPERVISING FILM OR VIDEOTAPE EDITOR Work Phone: [facility] 02-17-2022 08:56-0500 Body weight 89.63 kg Lola Farris MACHINE SHOP APPRENTICE.SUPERVISING FILM OR VIDEOTAPE EDITOR Work Phone: [facility] 02-17-2022 08:56-0500 Heart rate 77 /min Lola Farris MACHINE SHOP APPRENTICE.SUPERVISING FILM OR VIDEOTAPE EDITOR Work Phone: [facility] 02-17-2022 08:56-0500 Respiratory rate 16 /min oLla Farris MACHINE SHOP APPRENTICE.SUPERVISING FILM OR VIDEOTAPE EDITOR Work Phone: [facility] 02-17-2022 08:56-0500 SaO2% (BldA) [Mass fraction] 97 % Lola Fraris MACHINE SHOP APPRENTICE.SUPERVISING FILM OR VIDEOTAPE EDITOR Work Phone: [facility] 02-13-2022 09:55-0500 Body temperature 98.49 [degF] Alberto Le MACHINE SHOP APPRENTICE.SUPERVISING FILM OR VIDEOTAPE EDITOR Work Phone: [facility] 02-13-2022 09:55-0500 Body weight 91.54 kg Alberto Le MACHINE SHOP APPRENTICE.SUPERVISING FILM OR VIDEOTAPE EDITOR Work Phone: [facility] 02-13-2022 09:55-0500 Diastolic blood pressure 92 mm[Hg] Alberto Le MACHINE SHOP APPRENTICE.SUPERVISING FILM OR VIDEOTAPE EDITOR Work Phone: [facility] 02-13-2022 09:55-0500 Heart rate 71 /min Alberto Le MACHINE SHOP APPRENTICE.SUPERVISING FILM OR VIDEOTAPE EDITOR Work Phone: [facility] 02-13-2022 09:55-0500 Respiratory rate 20 /min Alberto Le MACHINE SHOP APPRENTICE.SUPERVISING FILM OR VIDEOTAPE EDITOR Work Phone: [facility] 02-13-2022 09:55-0500 SaO2% (BldA) [Mass fraction] 95 % Alberto Rey MACHINE SHOP APPRENTICE.SUPERVISING FILM OR VIDEOTAPE EDITOR Work Phone: [facility] 02-13-2022 09:55-0500 Systolic blood pressure 142 mm[Hg] Alberto Le MACHINE SHOP APPRENTICE.SUPERVISING FILM OR VIDEOTAPE EDITOR Work Phone: [facility] 01-02-2022 14:29-0400 Body height 168.9 cm Tiffani Alfreda MACHINE SHOP APPRENTICE.SUPERVISING FILM OR VIDEOTAPE EDITOR Work Phone: [facility] 01-02-2022 14:29-0400 Body weight 90.72 kg Tiffani Orrum MACHINE SHOP APPRENTICE.SUPERVISING FILM OR VIDEOTAPE EDITOR Work Phone: [facility] 01-02-2022 14:29-0400 Diastolic blood pressure 60 mm[Hg] Tiffani Orrum MACHINE SHOP APPRENTICE.SUPERVISING FILM OR VIDEOTAPE EDITOR Work Phone: [facility] 01-02-2022 14:29-0400 Systolic blood pressure 120 mm[Hg] Tiffani Alfreda MACHINE SHOP APPRENTICE.SUPERVISING FILM OR VIDEOTAPE EDITOR Work Phone: [facility] 12-17-2021 16:03-0400 Diastolic blood pressure 79 mm[Hg] Mi Nurse Work Phone: [facility] 12-17-2021 16:03-0400 Heart rate 59 /min Mi Nurse Work Phone: [facility] 12-17-2021 16:03-0400 Systolic blood pressure 137 mm[Hg] Mi Nurse Work Phone: [facility] Encounters Encounter Date Encounter Type Care Provider Facility Start: 08-27-2024 End: 08-29-2024 Refill Eugenio Peralta MD Work Phone: [facility] Comment on above: Refill Request Start: 04-28-2024 End: 04-28-2024 ambulatory [facility] Facility:[facility] Start: 03-14-2024 End: 03-14-2024 ambulatory EUGENIO PERALTA Facility:[facility] Start: 03-14-2024 End: 03-14-2024 Patient encounter procedure Eugenio Peralta MD Work Phone: [facility] Comment on above: Primary hypertension (Primary Dx) Start: 02-22-2024 End: 02-22-2024 ambulatory EUGENIO Hanson FABIAN Facility:[facility] Start: 02-22-2024 End: 02-22-2024 Subsequent hospital visit by physician Lou [facility] Work Phone: Radiology Comment on above: Acute pain of right knee [M25.561] Start: 02-22-2024 End: 02-22-2024 Office outpatient visit 25 minutes Lola Farris APRN.CNP Work Phone: [facility] Comment on above: Primary hypertension (Primary Dx); Acute pain of right knee Start: 02-22-2024 End: 02-22-2024 ambulatory [facility] Facility:[facility] Start: 02-11-2024 ambulatory [facility] Facility:[facility] Start: 02-11-2024 End: 02-11-2024 ambulatory [facility] Facility:[facility] Start: 01-27-2024 End: 01-27-2024 ambulatory [facility] Facility[facility] Start: 01-08-2024 End: 01-11-2024 MC Get Medical Advice Tiffani Gant APRN.SUPERVISING FILM OR VIDEOTAPE EDITOR Work Phone: OB/Gynecology Comment on above: Med order to [facility] Start: 01-07-2024 End: 01-07-2024 Patient encounter procedure Tiffani Gant APRN.SUPERVISING FILM OR VIDEOTAPE EDITOR Work Phone: OB/Gynecology Comment on above: Encounter for gyneco logical examination (general) (routine) without abnormal findings (Primary Dx); Encounter for screening mammogram for breast cancer; Postmenopausal atrophic vaginitis; Screening for malignant neoplasm of cervix; Encounter for screening for human papillomavirus (HPV) Start: 01-07-2024 End: 01-07-2024 Patient encounter status Tiffani Gant APRN.SUPERVISING FILM OR VIDEOTAPE EDITOR Work Phone: [facility] Start: 01-07-2024 End: 01-07-2024 ambulatory EUGENIO PERALTA Facility:[facility] Start: 01-07-2024 End: 01-07-2024 Subsequent hospital visit by physician Screen Mammo [facility] Comment on above: Encounter for screen ing mammogram for malignant neoplasm of breast [Z12.31] Start: 12-30-2023 End: 12-30-2023 ambulatory [facility] Work Phone: [facility] Start: 12-30-2023 End: 12-30-2023 Patient encounter [facility] Start: 12-24-2023 End: 12-24-2023 Office outpatient visit 15 minutes Natalia Monge APRN.SUPERVISING FILM OR VIDEOTAPE EDITOR Work Phone: [facility] Comment on above: Sinus congestion (Pr imary Dx); Elevated blood pressure reading without diagnosis of hypertension Start: 12-24-2023 End: 12-24-2023 ambulatory NATALIA MONGE Facility:[facility] Start: 12-22-2023 End: 12-22-2023 Telephone encounter Natalia Monge MACHINE SHOP APPRENTICE.SUPERVISING FILM OR VIDEOTAPE EDITOR Work Phone: [facility] Comment on above: Appointment; Patient Update Start: 12-14-2023 End: 12-14-2023 Refill M Ko Hughes PA-C Work Phone: [facility] Comment on above: Refill Request Start: 12-03-2023 End: 12-03-2023 ambulatory MAYRA LAN Facility:[facility] Start: 12-03-2023 End: 12-03-2023 Patient encounter procedure Mayra Lan PA-C Work Phone: [facility] Comment on above: Contact dermatitis, unspecified contact dermatitis type, unspecified trigger (Primary Dx) Start: 11-25-2023 End: 11-25-2023 ambulatory Eugenio Peralta MD Work Phone: [facility] Comment on above: RSV vaccination Start: 10-29-2023 End: 10-30-2023 Emergency department patient visit [facility] Facility:[facility] Start: 10-26-2023 End: 10-26-2023 Patient encounter procedure Eugenio Peralta MD Work Phone: [facility] Comment on above: Mixed hyperlipidemia (Primary Dx); Chronic kidney disease, stage 3a (HCC); Screening for depression; Encounter for screening examination for other mental health and behavioral disorders Start: 10-26-2023 End: 10-26-2023 ambulatory EUGENIO Valentin FABIAN Facility:[facility] Start: 10-20-2023 End: 10-20-2023 ambulatory [facility] Facility:[facility] Start: 08-26-2023 ambulatory Tiffanimariia TovarOrrumfrancesca SALMON Work Phone: OB/Gynecology Comment on above: Mammogram Start: 08-01-2023 End: 08-01-2023 [facility] Start: 08-01-2023 End: 08-01-2023 Patient encounter procedure Enmanuel Wong MD Work Phone: [facility] Comment on above: Rib pain on left shanita e (Primary Dx) Start: 06-13-2023 ambulatory Eugenio Peralta MD Work Phone: [facility] Comment on above: Sucralfate Start: 05-26-2023 End: 05-26-2023 ambulatory LEXY KOVACS Facility:[facility] Start: 05-26-2023 End: 05-26-2023 Patient encounter procedure Lexy Kovacs DO Work Phone: Vascular Surgery Comment on above: Symptomatic varicose veins of both lower extremities (Primary Dx) Start: 05-04-2023 End: 05-04-2023 ambulatory EUGENIO PERALTA Facility:[facility] Start: 04-21-2023 End: 04-21-2023 ambulatory MEHNAZ HUGHES Facility:[facility] Start: 03-31-2023 End: 03-31-2023 Subsequent hospital visit by physician Lou [facility] Work Phone: Radiology Comment on above: URI, acute [J06.9] Start: 02-23-2023 ambulatory Harry Golias P T Work Phone: [facility] Comment on above: Orthotics Start: 02-17-2023 End: 02-17-2023 Patient encounter procedure Lexy Kovacs DO Work Phone: Vascular Surgery Comment on above: Symptomatic varicose veins of both lower extremities Start: 02-10-2023 End: 02-10-2023 ambulatory Reji Sylvia PT Work Phone: [facility] Comment on above: Arthritis of right s acroiliac joint (Primary Dx) Start: 02-04-2023 End: 02-04-2023 ambulatory Harry Golias PT Work Phone: [facility] Comment on above: Plantar fasciitis (P rimary Dx); Flat feet, bilateral Start: 01-27-2023 End: 01-27-2023 ambulatory Reji Sylvia PT Work Phone: [facility] Comment on above: Arthritis of right s acroiliac joint (Primary Dx) Start: 01-19-2023 End: 01-19-2023 ambulatory Harry Golias PT Work Phone: [facility] Comment on above: Plantar fasciitis; Flat feet, bilateral Start: 01-13-2023 End: 01-13-2023 ambulatory Reji Sylvia PT Work Phone: [facility] Comment on above: Arthritis of right s acroiliac joint (Primary Dx) Start: 01-10-2023 End: 01-10-2023 ambulatory Immunization Clinic Nurse [place] Work Phone: [facility] Start: 01-06-2023 Documentation procedure Mammog deven Coordinator [facility] Start: 01-06-2023 Letter encounter Mammography Coordinator [facility] Department Start: 01-06-2023 Telephone encounter Eugenio Peralta MD Work Phone: [facility] Comment on above: Consult Start: 01-05-2023 End: 01-05-2023 Subsequent hospital visit by physician Screen Mammo [facility] Comment on above: Encounter for screen ing mammogram for malignant neoplasm of breast [Z12.31] Start: 12-18-2022 End: 12-18-2022 Patient encounter procedure Jt Duarte Work Phone: Podiatry Comment on above: Plantar fasciitis (P rimary Dx); Pes planus of both feet Start: 12-16-2022 End: 12-16-2022 ambulatory Reji Sylvia PT Work Phone: [facility] Comment on above: Arthritis of right s acroiliac joint (Primary Dx) Start: 12-16-2022 End: 12-16-2022 Subsequent hospital visit by physician Xr [facility] Work Phone: Radiology Comment on above: Pain [R52] Start: 12-12-2022 End: 12-12-2022 ambulatory Reji Sylvia PT Work Phone: [facility] Comment on above: Arthritis of right s acroiliac joint (Primary Dx) Start: 12-04-2022 End: 12-04-2022 ambulatory Reji Sylvia PT Work Phone: [facility] Comment on above: Arthritis of right s acroiliac joint (Primary Dx) Start: 12-03-2022 ambulatory Mavis Tucker on PA-C Work Phone: [facility] Comment on above: AAA Screening Start: 12-03-2022 End: 12-03-2022 Subsequent hospital visit by physician Bone Density [facility] Work Phone: Radiology Comment on above: Asymptomatic postmen opausal state [Z78.0] Start: 12-03-2022 End: 12-03-2022 Subsequent hospital visit by physician Us [facility] Mob 2 Work Phone: Radiology Comment on above: Pulsatile abdomen [R 19.8] Start: 11-26-2022 Orders Only Jt Khanra nolan Work Phone: Appointment Center Comment on above: Pain (Primary Dx) Start: 11-24-2022 ambulatory No Pcp MACHINE SHOP APPRENTICE Shani donahue [place] Start: 11-19-2022 Telephone encounter Eugenio Peralta MD Work Phone: [facility] Comment on above: Orders Start: 11-14-2022 End: 11-14-2022 Subsequent hospital visit by physician Lou [facility] Work Phone: Radiology Comment on above: Arthritis of right s acroiliac joint [M47.818] Start: 11-14-2022 End: 11-14-2022 Patient encounter procedure Mavis Hughes PA-C Work Phone: [facility] Comment on above: Essential hypertensi on [...] D level; Chronic kidney disease, stage 3a ([facility]); Medicare annual wellness visit, subsequent; Wellness examination Start: 11-14-2022 End: 11-14-2022 Patient encounter status Mavis Ko Hughes PA-C Work Phone: [facility] Work Phone: Start: 11-01-2022 End: [...] hospital visit by physician Lou [facility] Work Phone: Radiology Comment on above: [...] Telephone encounter Mavis Hughes PA-C Work Phone: [facility] Comment on above: Referral Request Start: 05-26-2022 Telephone encounter Tiffani carter MACHINE SHOP APPRENTICE.SUPERVISING FILM OR VIDEOTAPE EDITOR Work Phone: OB/Gynecology Comment on above: Orders Start: 05-12-2022 Telephone encounter Mavis Ko Hughes PA-C Work Phone: [facility] Comment on above: Patient Question Start: 05-12-2022 End: 05-12-2022 Nursing evaluation of patient and report Mi Nurse Work Phone: [facility] Comment on above: Need for vaccination (Primary Dx) Start: 02-17-2022 End: 02-17-2022 Subsequent hospital visit by physician Lou [facility] Work Phone: Radiology Comment on above: Sinobronchitis [J32. 9, J40] Start: 02-17-2022 End: 02-17-2022 Office outpatient visit 15 minutes Lola Farris APRN.SUPERVISING FILM OR VIDEOTAPE EDITOR Work Phone: [facility] Comment on above: Sinobronchitis (Prim alisia Dx) Start: 02-13-2022 End: 02-13-2022 Patient encounter procedure Alberto Le APRN.SUPERVISING FILM OR VIDEOTAPE EDITOR Work Phone: [facility] Comment on above: URI, acute (Primary Dx); Sore throat Start: 01-27-2022 Refill Mavis AYOUB-C Work Phone: [facility] Comment on above: Refill Request Start: 01-03-2022 Documentation procedure Mammog deven Coordinator [facility] Start: 01-03-2022 Letter encounter Mammography Coordinator [facility] Department Start: 01-02-2022 End: 01-02-2022 Subsequent hospital visit by physician Screen Mammo [facility] Comment on above: Encounter for screen ing mammogram for malignant neoplasm of breast [Z12.31] Start: 01-02-2022 End: 01-02-2022 Patient encounter procedure Tiffani Gant APRN.SUPERVISING FILM OR VIDEOTAPE EDITOR Work Phone: OB/Gynecology Comment on above: Encounter for gyneco logical examination (general) (routine) without abnormal findings (Primary Dx); Encounter for screening mammogram for breast cancer; Postmenopausal atrophic vaginitis; Lichen sclerosus Start: 01-02-2022 End: 01-02-2022 Patient encounter status Tiffani Gant APRN.SUPERVISING FILM OR VIDEOTAPE EDITOR Work Phone: OB/Gynecology Start: 12-17-2021 End: 12-17-2021 Nursing evaluation of patient and report Mi Nurse Work Phone: [facility] Comment on above: Essential hypertensi on (Primary Dx) Start: 12-10-2021 Telephone encounter Sharon bundy APRN.SUPERVISING FILM OR VIDEOTAPE EDITOR Work Phone: OB/Gynecology Comment on above: Orders Start: 11-18-2021 ambulatory M Ko Tucker on PA-C Work Phone: [facility] Comment on above: Tetanus Booster Start: 11-15-2021 End: 11-15-2021 Nursing evaluation of patient and report Mi Nurse Work Phone: [facility] Comment on above: Need for vaccination (Primary Dx) Start: 11-01-2021 End: 11-01-2021 Patient encounter procedure Eugenio Peralta MD Work Phone: [facility] Comment on above: Need for COVID-19 va ccine (Primary Dx) Start: 05-16-2020 End: 05-16-2020 Patient encounter procedure EUGENIO PATEL [facility] Start: 04-20-2020 End: 04-20-2020 Patient encounter procedure EUGENIO Bundy [facility] Procedures Date Procedure Procedure Detail Performing Clinician Start: 01-07-2024 Screening digital breast tomosynthesis bi Tiffani Corralf MACHINE SHOP APPRENTICE.SUPERVISING FILM OR VIDEOTAPE EDITOR Work Phone: Start: 12-30-2023 PFIZER-BIONTECH COVID-19 VACCINE AGE 12+ YR (COMIRNATY) Eugenio Peralta MD Work Phone: Start: 10-26-2023 Adult depression screening assessment Eugenio Peralta MD Work Phone: Start: 10-20-2023 Lipid 1996 panel - Serum or Plasma Rosas Peralta MD Work Phone: Start: 03-31-2023 Radiologic exam chest 2 views Daisy howard MACHINE SHOP APPRENTICE.SUPERVISING FILM OR VIDEOTAPE EDITOR Work Phone: Start: 01-10-2023 PFIZER-BIONTECH COVID-19 VACCINE (2022- SEASON) AGE 12+ YR Mehnaz Wong MD Work Phone: Start: 01-10-2023 INFLUENZA VACCINE, PRSV FREE, AGE 65+ YR, HIGH DOSE, QUADRIVALENT (FLUZONE HIGH-DOSE) Mehnaz Wong MD Work Phone: Start: 01-05-2023 Screening digital breast tomosynthesis bi Tiffani Corralf MACHINE SHOP APPRENTICE.SUPERVISING FILM OR VIDEOTAPE EDITOR Work Phone: Start: 12-16-2022 Radex foot complete [...] 11-01-2022 STREP A MOLECULAR (POC) Johanne Santos MACHINE SHOP APPRENTICE. SUPERVISING FILM OR VIDEOTAPE EDITOR Work Phone: Start: 10-21-2022 Radex hand minimum 3 views Aury Hylton Work Phone: Start: 10-20-2022 Level iv surg pathology gross&microscopic exam Eriberto Disla MD Work Phone: Start: 10-20-2022 Esophagogastroduodenoscopy transoral diagnostic Crystal Pastrana PA-C Work Phone: Start: 05-12-2022 PFIZER-BIONTECH COVID-19 BIVALENT BOOSTER VACCINE, AGE 12+ YR M Ko Hughes PA-C Work Phone: Start: 02-17-2022 Radiologic exam chest 2 views Lola barry APRN.SUPERVISING FILM OR VIDEOTAPE EDITOR Work Phone: Start: 02-13-2022 STREP A MOLECULAR [...] Author Start: 10-19-2028 Lipid panel Lipid Screening [facility] Start: 10-06-2028 Urine microalbumin profile [facility] Start: 11-16-2027 Lipid 1996 panel - Serum or Plasma Lipid Screening [facility] Start: 11-16-2027 Lipid panel Lipid Screening [facility] Start: 11-16-2027 LIPID SCREEN LIPID SCREEN [facility] Start: 10-06-2027 Colonoscopy COLONOSCOPY [facility] Start: 10-06-2027 COLORECTAL CANCER SCREENING COLORECTAL CANCER SCREENING [facility] Start: 10-06-2027 Screening for malign ant neoplasm of colon [facility] Start: 11-13-2026 LIPID SCREEN LIPID SCREEN [facility] Start: 10-19-2026 Diabetes Screening Diabetes Screenin g [facility] Start: 11-15-2025 DIABETES SCREEN DIABETES SCREEN [facility] Start: 11-15-2025 Diabetes Screening Diabetes Screenin g [facility] Start: 03-14-2025 Annual PCP Team Cigarette Stamper rocco Disease Visit Annual PCP Team Chronic Disease Visit [facility] Start: 03-14-2025 BP Controlled (<130/80) BP Controlle d (<130/80) [facility] Start: 02-21-2025 Annual PCP Team Cigarette Stamper rocco Disease Visit Annual PCP Team Chronic Disease Visit [facility] Start: 01-12-2025 LIPID SCREEN LIPID SCREEN [facility] Start: 01-09-2025 End: 01-09-2025 Patient encounter procedure 01/09/2025 11:30 AM EDT Office Visit OB/Gynecology [address] [place] [address] Tiffani Gant APRN.SUPERVISING FILM OR VIDEOTAPE EDITOR [address] [place] [address] Annual OB/Gynecology Comment on above: Annual Start: 01-09-2025 End: 01-09-2025 Patient encounter procedure Mammogram Comment on above: Encounter for gyneco logical examination (general) (routine) without abnormal findings [Z01.419]; Encounter for screening mammogram for breast cancer [Z12.31] Annual Start: 01-06-2025 Screening for malign ant neoplasm of breast Mammogram Screening [facility] Start: 12-02-2024 Annual PCP Team Cigarette Stamper rocco Disease Visit Annual PCP Team Chronic Disease Visit [facility] Start: 11-13-2024 DIABETES SCREEN DIABETES SCREEN [facility] Start: 10-26-2024 End: 10-26-2024 Patient encounter procedure 10/26/2024 10:40 AM EDT Office Visit Family Enmanuel [facility]al [address] [place] [address] Eugenio Peralta MD [address] [place] [address] physical Family Medicine [facility] Comment on above: physical Start: 10-25-2024 Annual PCP Team Cigarette Stamper rocco Disease Visit Annual PCP Team Chronic Disease Visit [facility] Start: 10-25-2024 Anxiety Screening Anxiety Screening [facility] Start: 10-25-2024 Covid-19 Vaccine () Covid-19 Vaccine () [facility] Comment on above: Postponed from 05/13 (Declined at this time) Start: 10-25-2024 Depression Screening Depression Scre ening [facility] Start: 10-25-2024 RSV Vaccine (1 - 1-d ose 60+ series) RSV Vaccine (1 - 1-dose 60+ series) [facility] Comment on above: Postponed from 10/11 (Declined at this time) Start: 10-19-2024 Creatinine measurement Serum Creatin ine [facility] Start: 06-29-2024 Covid-19 Vaccine () Covid-19 Vaccine () [facility] Start: 04-21-2024 Annual PCP Team Cigarette Stamper rocco Disease Visit Annual PCP Team Chronic Disease Visit [facility] Start: 03-30-2024 Advance Directive Discussion Advance Directive Discussion [facility] Start: 03-21-2024 End: 03-21-2024 Patient encounter procedure 03/21/2024 10:00 AM EST Office Visit [facility] [address] [place] [address] Lola Farris APRN.SUPERVISING FILM OR VIDEOTAPE EDITOR [address] [facility] [place] [address] 1 month BP check [facility] Comment on above: 1 month BP check Start: 01-07-2024 End: 01-07-2024 Patient encounter procedure Mammogram Comment on above: Encounter for screen ing mammogram for malignant neoplasm of breast [Z12.31] annual Start: 01-06-2024 Mammography Mammogram Screening [facility] Start: 01-06-2024 Screening for malign ant neoplasm of breast Mammogram Screening [facility] Start: 12-30-2023 End: 12-30-2023 Patient encounter procedure 12/30/2023 1:40 PM EDT Immunization [facility] [address] [place], [place] [id number] [facility], Immun[facility] Nurse [address] [place], [place] [id number] Want Covid & flu vaccinations [facility] Comment on above: Want Covid & flu vac cinations Start: 12-29-2023 Covid-19 Vaccine ( season) Covid-19 Vaccine () [facility] Comment on above: Postponed from 11/28 (Currently Scheduled) Start: 12-29-2023 Influenza vaccination Influenza Vacc ine (#1) [facility] Comment on above: Postponed from 11/28 (Currently Scheduled) Start: 12-24-2023 End: 12-24-2023 Patient encounter procedure 12/24/2023 2:00 PM EDT Office Visit [facility] [address] [place], [place] [id number] Natalia Monge, MACHINE SHOP APPRENTICE.SUPERVISING FILM OR VIDEOTAPE EDITOR [address] [place], [place] [id number] BP check, and check Pts BP cuff. See TE 12/22/23. [facility] Comment on above: BP check, and check Pts BP cuff. See TE 12/22/23. Start: 11-29-2023 Covid-19 Vaccine ( season) Covid-19 Vaccine ( season) [facility] Start: 11-29-2023 Covid-19 Vaccine ( season) Covid-19 Vaccine ( season) [facility] Start: 11-29-2023 Influenza vaccination Influenza Vacc ine (#1) [facility] Start: 11-16-2023 Creatinine measurement Serum Creatin ine [facility] Start: 11-16-2023 SERUM CREATININE SERUM CREATININE [facility] Start: 11-15-2023 ANNUAL PCP TEAM FIELD PIPE LINES SUPERVISOR ROCCO DISEASE VISIT ANNUAL PCP TEAM CHRONIC DISEASE VISIT [facility] Start: 11-15-2023 COVID-19 VACCINE (6 - Pfizer series) COVID-19 VACCINE (6 - Pfizer series) [facility] Comment on above: Postponed from 09/09 (Declined at this time) Start: 10-26-2023 End: 10-26-2023 Patient encounter procedure 10/26/2023 11:00 AM EDT Office Visit Family Medicine [facility] [address] [place] [address] Eugenio Peralta MD [address] [place] [address] well visit Family Medicine [facility] Comment on above: well visit Start: 07-27-2023 DIABETES SCREEN DIABETES SCREEN [facility] Start: 05-13-2023 Covid-19 Vaccine () Covid-19 Vaccine () [facility] Start: 03-30-2023 Advance Directive Discussion Advance Directive Discussion [facility] Start: 03-30-2023 Behavioral Health Screening Behavioral Health Screening [facility] Start: 03-30-2023 Depression Assessment Depression Ass essment [facility] Start: 02-17-2023 COVID-19 VACCINE (5 - Booster for Pfizer series) COVID-19 VACCINE (5 - Booster for Pfizer series) [facility] Comment on above: Postponed from 12/27 (Declined at this time) Start: 01-02-2023 Mammography [facility] Start: 11-28-2022 Covid-19 Vaccine () Covid-19 Vaccine () [facility] Start: 11-28-2022 Influenza vaccination C [facility] Start: 11-14-2022 End: 01-14-2023 25-hydroxyvitamin D3 [Mass/volume] in Serum or Plasma VITAMIN D 25 HYDROXY Lab Routine Low vitamin D level Expected: 11/14/2022, Expires: 01/14/2023 [facility] Work Phone: Comment on above: Expected: 11/14/2022 , Expires: 01/14/2023 Start: 11-14-2022 End: 01-14-2023 CBC W Auto Differential panel - Blood CBC + DIFF Lab Routine Essential hypertension Expected: 11/14/2022, Expires: 01/14/2023 [facility] Work Phone: Comment on above: Expected: 11/14/2022 , Expires: 01/14/2023 Start: 11-14-2022 End: 01-14-2023 Comprehensive metabolic 2000 panel - Serum or Plasma COMP METABOLIC PANEL Lab Routine Essential hypertension Expected: 11/14/2022, Expires: 01/14/2023 [facility] Work Phone: Comment on above: Expected: 11/14/2022 , Expires: 01/14/2023 Start: 11-14-2022 End: 01-14-2023 Lipid 1996 panel - Serum or Plasma LIPID PANEL BASIC Lab Routine Low HDL (under 40) Expected: 11/14/2022, Expires: 01/14/2023 [facility] Work Phone: Comment on above: Expected: 11/14/2022 , Expires: 01/14/2023 Start: 11-14-2022 End: 01-14-2023 Magnesium [Mass/volume] in Serum or Plasma MAGNESIUM BLD Lab Routine Current use of proton pump inhibitor Expected: 11/14/2022, Expires: 01/14/2023 [facility] Work Phone: Comment on above: Expected: 11/14/2022 , Expires: 01/14/2023 Start: 11-13-2022 HEMOGLOBIN/HEMATOCRIT HEMOGLOBIN/HEM ATOCRIT [facility] Start: 11-13-2022 SERUM CREATININE SERUM CREATININE [facility] Start: 11-12-2022 Adult depression screening assessment DEPRESSION SCREENING [facility] Start: 11-12-2022 ANNUAL PCP TEAM FIELD PIPE LINES SUPERVISOR ROCCO DISEASE VISIT ANNUAL PCP TEAM CHRONIC DISEASE VISIT [facility] Start: 11-01-2022 ANNUAL PCP TEAM FIELD PIPE LINES SUPERVISOR ROCCO DISEASE VISIT ANNUAL PCP TEAM CHRONIC DISEASE VISIT [facility] Start: 09-09-2022 COVID-19 VACCINE (6 - Pfizer series) COVID-19 VACCINE (6 - Pfizer series) [facility] Start: 03-30-2022 ADVANCE DIRECTIVE DISCUSSION ADVANCE DIRECTIVE DISCUSSION [facility] Start: 03-30-2022 DEPRESSION ASSESSMENT DEPRESSION ASS ESSMENT [facility] Start: 12-27-2021 COVID-19 VACCINE (5 - Booster for Pfizer series) COVID-19 VACCINE (5 - Booster for Pfizer series) [facility] Start: 11-28-2021 Influenza vaccination INFLUENZA (#1) [facility] Start: 11-16-2021 Mammography MAMMOGRAM [facility] Start: 11-12-2021 PNEUMOCOCCAL: 65+ (2 - PCV) PNEUMOCOCCAL: 65+ (2 - PCV) [facility] Start: 07-24-2021 Adult depression screening assessment DEPRESSION SCREENING [facility] Start: 03-30-2021 ADVANCE DIRECTIVE DISCUSSION ADVANCE DIRECTIVE DISCUSSION [facility] Start: 03-30-2021 DEPRESSION ASSESSMENT DEPRESSION ASS ESSMENT [facility] Start: 01-12-2021 HEMOGLOBIN/HEMATOCRIT HEMOGLOBIN/HEM ATOCRIT [facility] Start: 01-12-2021 SERUM CREATININE SERUM CREATININE [facility] Start: 10-08-2016 FECAL OCCULT BLOOD FECAL OCCULT BLOO D [facility] Start: 10-08-2016 Screening for malign ant neoplasm of colon Fecal Occult Blood [facility] Start: 2015 RSV Vaccine (1 - 1-d ose 60+ series) RSV Vaccine (1 - 1-dose 60+ series) [facility] Start: 10-11-2000 COLOGUARD (FIT-DNA) COLOGUARD (FIT-D NA) [facility] Start: 10-11-[address] COLONOGRAPHY [facility] Start: 10-11-2000 Screening for malign ant neoplasm of colon [facility] Start: 10-11-2000 SIGMOIDOSCOPY SIGMOIDOSCOPY [facility] Start: 10-11-1973 BP Controlled (<130/80) BP Controlle d (<130/80) [facility] ALERE STREP A TEST (AG) ALERE ST REP A TEST (AG) Lab Routine Sore throat Ordered: 02/13/2022 [facility] Work Phone: Comment on above: Ordered: 02/13/2022 End: 09-24-2024 DBT Breast - bilateral screening ELLIOT SCREENING W [facility] Radiology Routine Encounter for screening mammogram for malignant neoplasm of breast 1 Occurrences starting 08/27/2023 until 09/24/2024 [facility] Work Phone: Comment on above: 1 Occurrences starti ng 08/27/2023 until 09/24/2024 End: 02-05-2025 DBT Breast - bilateral screening ELLIOT SCREENING W [facility] Radiology Routine Encounter for gynecological examination (general) (routine) without abnormal findings Encounter for screening mammogram for breast cancer 1 Occurrences starting 01/07/2024 until 02/05/2025 [facility] Work Phone: Comment on above: 1 Occurrences starti ng 01/07/2024 until 02/05/2025 End: 12-14-2023 DXA-AXIAL SKELETON DXA-AXIAL SKELETON Radiology Routine Asymptomatic postmenopausal state 1 Occurrences starting 11/14/2022 until 12/14/2023 [facility] Work Phone: Comment on above: 1 Occurrences starti ng 11/14/2022 until 12/14/2023 Influenza virus A an d B RNA and SARS-CoV-2 (COVID-19) N gene panel - Respiratory specimen by GUSTAVO with probe detection COVID WITH FLUA+B, ROUTINE Microbiology Routine URI, acute Ordered: 02/13/2022 [facility] Work Phone: Comment on above: Ordered: 02/13/2022 End: 06-25-2023 ELLIOT SCREENING W SAIRA ELLIOT SCREENING W SAIRA Radiology Routine Encounter for screening mammogram for malignant neoplasm of breast Dense breast tissue 1 Occurrences starting 05/26/2022 until 06/25/2023 [facility] Work Phone: Comment on above: 1 Occurrences starti ng 05/26/2022 until 06/25/2023 PAP TEST PAP TEST Lab [place] Screening for malignant neoplasm of cervix Encounter for screening for human papillomavirus (HPV) 01/07/2024 11:26 AM EDT [facility] End: 12-14-2023 Radex spine lumbosacral 2/3 views XR LUMBAR GENERAL 3V AP/LAT/L5-S1 Radiology Routine Arthritis of right sacroiliac joint Lumbosacral pain 1 Occurrences starting 11/14/2022 until 12/14/2023 [facility] Work Phone: Comment on above: 1 Occurrences starti ng 11/14/2022 until 12/14/2023 Radex spine lumbosac ral 2/3 views XR LUMBAR GENERAL 3V AP/LAT/L5-S1 Radiology Routine Arthritis of right sacroiliac joint Lumbosacral pain 11/14/2022 11:42 AM EDT [facility] Work Phone: End: 01-09-2023 Screening mammography bi 2-view breast inc cad ELLIOT SCREENING Radiology Routine Encounter for screening mammogram for malignant neoplasm of breast 1 Occurrences starting 12/10/2021 until 01/09/2023 [facility] Work Phone: Comment on above: 1 Occurrences starti ng 12/10/2021 until 01/09/2023 End: 02-01-2023 Screening mammography bi 2-view breast inc cad ELLIOT SCREENING Radiology Routine Postmenopausal atrophic vaginitis 1 Occurrences starting 01/02/2022 until 02/01/2023 [facility] Work Phone: Comment on above: 1 Occurrences starti ng 01/02/2022 until 02/01/2023 End: 01-02-2022 Screening mammography bi 2-view breast inc cad [facility] Work Phone: Comment on above: 1 Occurrences starti ng 01/02/2022 until 01/02/2022 End: 12-14-2023 Us abdominal aorta real time screen study aaa US SCREENING FOR AAA Radiology Routine Pulsatile abdomen 1 Occurrences starting 11/14/2022 until 12/14/2023 [facility] Work Phone: Comment on above: 1 Occurrences starti ng 11/14/2022 until 12/14/2023 End: 02-18-2024 US VENOUS INCOMPETENCY [facility] US VENOUS INCOMPETENCY [facility] Vascular Lab Routine Symptomatic varicose veins of both lower extremities 1 Occurrences starting 02/17/2023 until 02/18/2024 [facility] Work Phone: Comment on above: 1 Occurrences starti ng 02/17/2023 until 02/18/2024 End: 12-26-2023 XR FOOT GENERAL 3V AP/LAT/OBL BILATERAL XR FOOT GENERAL 3V AP/LAT/OBL BILATERAL Radiology Routine Pain 1 Occurrences starting 11/26/2022 until 12/26/2023 [facility] Work Phone: Comment on above: 1 Occurrences starti ng 11/26/2022 until 12/26/2023 End: 03-23-2025 XR Knee - right 4 Views XR KNEE GENERAL 4V AP BOTH/PA BOTH/LAT/MERC RIGHT Radiology Routine Acute pain of right knee 1 Occurrences starting 02/22/2024 until 03/23/2025 [facility] Work Phone: Comment on above: 1 Occurrences starti ng 02/22/2024 until 03/23/2025 XR Knee - right 4 Views XR KNEE GENERAL 4V AP BOTH/PA BOTH/LAT/MERC RIGHT Radiology Routine Acute pain of right knee 02/22/2024 12:47 PM EST [facility] Immunizations Immunization Date Immunization Notes Care Provider Debbie chris 12-30-2023 COVID-19 vaccine, ag e 12+ yr (PFIZER-BIONTECH COMIRNATY) Immunization [place] Work Phone: [facility] 12-30-2023 influenza, high dose seasonal, preservative-free Immunization [place] Work Phone: [facility] 11-25-2023 respiratory syncytia l virus (RSV) vaccine, adjuvanted (AREXVY) Eugenio Peralta MD Work Phone: [facility] 01-10-2023 COVID-19 vaccine, ag e 12+ yr, season (PFIZER-BIONTECH) Immunization Cristin Work Phone: [facility] Work Phone: 01-10-2023 influenza (HD-IIV4) vaccine, age 65+ yr, high dose, quadrivalent, PF (FLUZONE HIGH-DOSE) Immunization Cristin Work Phone: [facility] 01-10-2023 influenza virus vaccine, unspecified formulation Eugenio Peralta MD Work Phone: [facility] 05-12-2022 COVID-19 booster vaccine, age 12+ yr, bivalent (PFIZER-BIONTECH) Wa Nurse Work Phone: [facility] Work Phone: 12-28-2021 influenza, high-dose , quadrivalent vaccine (FLUZONE HIGH DOSE QUADRIVALENT) Tiffani Gant APRN.SUPERVISING FILM OR VIDEOTAPE EDITOR Work Phone: [facility] 12-28-2021 influenza virus vaccine, unspecified formulation Reji Morgan PT Work Phone: [facility] 11-15-2021 pneumococcal (PCV20) vaccine, 20 valent (PREVNAR 20) Wa Nurse Work Phone: [facility] Work Phone: 11-01-2021 COVID-19 vaccine, ag e 12+ yr (PFIZER-BIONTECH - HOANG TOP) Eugenio Peralta MD Work Phone: [facility] 03-05-2021 COVID-19 vaccine, ag e 12+ yr (PFIZER-BIONTECH - PURPLE TOP) Eugenio Peralta MD Work Phone: [facility] 12-29-2020 influenza, high-dose , quadrivalent vaccine (FLUZONE HIGH DOSE QUADRIVALENT) Eugenio Peralta MD Work Phone: [facility] Work Phone: 11-12-2020 pneumococcal polysaccharide vaccine, 23 valent Eugenio Peralta MD Work Phone: [facility] Work Phone: 05-16-2020 COVID-19 vaccine, ag e 12+ yr (PFIZER-BIONTECH - PURPLE TOP) Eugenio Peralta MD Work Phone: [facility] 04-20-2020 COVID-19 vaccine, ag e 12+ yr (PFIZER-BIONTECH - PURPLE TOP) Eugenio Peralta MD Work Phone: [facility] 12-30-2019 influenza, injectabl e, quadrivalent, contains preservative Eugenio Peralta MD Work Phone: [facility] Work Phone: 01-22-2019 influenza, injectabl e, quadrivalent, contains preservative Eugenio Peralta MD Work Phone: [facility] 12-10-2018 zoster vaccine recombinant Eugenio Peralta MD Work Phone: [facility] Work Phone: 10-06-2018 tetanus toxoid, redu priya diphtheria toxoid, and acellular pertussis vaccine, adsorbed Eugenio Peralta MD Work Phone: [facility] 10-06-2018 zoster vaccine recombinant Eugenio Peralta MD Work Phone: [facility] 01-09-2018 influenza, injectabl e, quadrivalent, contains preservative Eugenio Peralta MD Work Phone: [facility] 01-03-2017 influenza, injectabl e, quadrivalent, contains preservative Eugenio Peralta MD Work Phone: [facility] 01-04-2016 influenza, injectabl e, quadrivalent, contains preservative Eugenio Peralta MD Work Phone: [facility] Work Phone: 12-30-2014 influenza, injectabl e, quadrivalent, contains preservative Eugenio Peralta MD Work Phone: [facility] Work Phone: 02-15-2014 influenza, seasonal, injectable Eugenio Peralta MD Work Phone: [facility] 07-27-2013 zoster vaccine, live Eugenio Peralta MD Work Phone: [facility] Work Phone: 01-29-2012 influenza virus vaccine, unspecified formulation Eugenio Peralta MD Work Phone: [facility] 03-27-2009 novel [id number], preservative-free, injectable Eugenio Peralta MD Work Phone: [facility] 10-09-2008 tetanus toxoid, redu priya diphtheria toxoid, and acellular pertussis vaccine, adsorbed Eguenio Peralta MD Work Phone: [facility] Work Phone: 01-24-2006 influenza virus vaccine, unspecified formulation Eugenio Peralta MD Work Phone: [facility] Payers Date Payer Category Payer Self-pay 2020 Medicare MMO MEDICARE MMO MEDADVANTAGE HMO [id number] 2020-Present [phone] [address] [place] [address] O [id number] 2020 Medicare MMO MEDICARE MMO MEDADVANTAGE HMO [id number] 2020-Present [phone] [address] [place] [address] O [id number] 2020 Medicare (Managed Care) MMO FRANCISCO JAVIER DVANTAGE HMO [id number] 2020 Unknown [id number] Unknown [id number] Unknown [id number] Unknown [id number] Unknown [id number] Unknown [id number] Social History Date Type Detail Facility Start: 03-06-2011 End: 01-02-2022 Tobacco smoking status NHIS Never smoked tobacco [facility] Work Phone: Start: 11-16-2020 End: 03-14-2024 Alcohol intake Current non-drinker of alcohol (finding) [facility] Start: 07-24-2020 End: 11-12-2021 History SDOH Alcohol Frequency 1 [facility] Start: 07-24-2020 End: 11-12-2021 History SDOH Social Connections Phone 2 [facility] Start: 07-24-2020 End: 11-12-2021 History SDOH Social Connections [facility] Start: 07-24-2020 End: 11-12-2021 History SDOH Social Connections Living 3 [facility] Start: 07-24-2020 End: 11-12-2021 History SDOH Financial 5 [facility] Start: 1955 Sex Assigned At Female C [facility] Start: 10-18-2021 End: 02-17-2022 Exposure to SARS-CoV-2 (event) Not sure [facility] Start: 03-06-2011 End: 01-02-2022 Tobacco use and exposure Smokeless tobacco non-user [facility] Start: 11-12-2021 History SDOH Alcohol Std Drinks 0 [facility] Start: 11-12-2021 History SDOH Social Connections Phone 4 [facility] Start: 11-12-2021 End: 10-28-2022 History of Social function [facility] Start: 11-12-2021 End: 10-28-2022 Social connection and isolation panel [facility] How often do you att end zoroastrian or latter day services? Patient refused [facility] Are you now , , , , never or living with a partner? [facility] How often to you hav e a drink containing alcohol? Never [facility] Do you feel stress - tense, restless, nervous, or anxious, or unable to sleep at night because your mind is troubled all the time - these days [OSQ] Only a little [facility] (I/We) worried whejose eduardo er (my/our) food would run out before (I/we) got money to buy more. Never true [facility] In the past 12 month s, was there a time when you were not able to pay the mortgage or rent on time? No [facility] Start: 12-28-2020 Gender identity Identifies as female gender (finding) [facility] Start: 12-28-2020 Sexual orientation Heterosexual (kevin florez) [facility] Do you feel stress - tense, restless, nervous, or anxious, or unable to sleep at night because your mind is troubled all the time - these days [OSQ] Not at all [facility] Functional Status Date Assessment Result Facility 10-28-2014 Are you deaf, or do you have serious difficulty hearing No 10/28/2014 8:00 AM Shanta Goddard MA No [facility] 10-28-2014 Are you blind, or do you have serious difficulty seeing, even when wearing glasses No 10/28/2014 8:00 AM Shanta Goddard MA No [facility] 10-28-2014 Do you have serious difficulty walking or climbing stairs No 10/28/2014 8:00 AM Shanta Goddard MA No [facility] 10-28-2014 Do you have difficul ty dressing or bathing No 10/28/2014 8:00 AM Shanta Goddard MA No [facility] 10-28-2014 Because of a physica l, mental, or emotional condition, do you have difficulty doing errands alone such as visiting a physician's office or shopping No 10/28/2014 8:00 AM Shanta Goddard MA No [facility] Mental Status Date Assessment Result Facility 10-28-2014 Because of a physica l, mental, or emotional condition, do you have serious difficulty concentrating, remembering, or making decisions No 10/28/2014 8:00 AM Shanta Goddard MA No [facility] Clinical Notes 07-25-2013 to 08-29-2024 [...] Arrieta LPN August 29, 2024 3:51 PM [facility] 08-29-2024 Miscellaneous Notes Prescription Refill [...] 2024 3:51 PM documented in this encounter [facility] 03-14-2024 Note HNO ID: [id number] Author: EUGENIO PERALTA MD Service: ? Author [...] from adhesive monitor sticker after endoscopy Poison Kaanksha PAST MEDICAL HISTORY Diagnosis Date Acute gastritis [...] skin discoloration, cl (more content not included)... [facility] 03-14-2024 History of Present illness Narrative Patient [...] Good capillary refill. documented in this encounter [facility] 02-22-2024 History of Present illness [...] PATIENT PRESENTS WITH AN IMPLANTABLE OR ATTACHED LINE OPERATOR: No RADIOLOGY DEPARTMENT: General X-ray: Exam(s) Completed: Lower Extremity X-Ray(s): Knee, AP / Lat / Tunne / Merchant Right PERIPHERAL IV DATA: Not applicable SIGNED BY: RT April(R) February 22, 2024 12:30 PM documented in this encounter [facility] 02-22-2024 Note HNO ID: [id number] Author: IVANA WELLINGTON RT(R) Service: ? Author Type: Child Nutrition Manager Type: Progress Notes Filed: 02/22/2024 12:47 Note [...] PATIENT PRESENTS WITH AN IMPLANTABLE OR ATTACHED LINE OPERATOR: No RADIOLOGY DEPARTMENT: General X-ray: Exam(s) Completed: Lower Extremity X-Ray(s): Knee, AP / Lat / Tunne / Merchant Right PERIPHERAL IV DATA: Not applicable SIGNED BY: RT Arpil(R) February 22, 2024 12:30 PM [facility] 02-22-2024 Instructions Lola Farris APRN.CNP - 02/22/2024 12:21 PM EST Get the knee xray. Start the lisinopril. Recheck in a month. documented in this encounter [facility] 02-22-2024 Note HNO ID: [id number] Author: LOLA FARRIS APRN.JAIRON Service: ? Author [...] understanding. Patient's que (more content not included)... [facility] 02-22-2024 History of Present illness Narrative This [...] Lola Farris APRN.CNP documented in this encounter [facility] 01-11-2024 Note Addended by: TIFFANI GANT on: 01/11/2024 08:01 AM Modules accepted: Orders [facility] 01-11-2024 Miscellaneous Notes Addended by: TIFFANI GANT on: 01/11/2024 08:01 AM Modules accepted: Orders documented in this encounter [facility] 01-07-2024 History of Present illness [...] PATIENT PRESENTS WITH AN IMPLANTABLE OR ATTACHED LINE OPERATOR: No RADIOLOGY DEPARTMENT: Mammography PERIPHERAL IV DATA: Not applicable SIGNED BY: Brendan Zapata January 07, 2024 10:12 AM documented in this encounter [facility] 01-07-2024 Note HNO ID: [id number] Author: HAFSA ALVARADO Mammo Tech Service: ? Author Type: Child Nutrition Manager Type: Progress Notes Filed: 01/07/2024 11:07 Note [...] PATIENT PRESENTS WITH AN IMPLANTABLE OR ATTACHED LINE OPERATOR: No RADIOLOGY DEPARTMENT: Mammography PERIPHERAL IV DATA: Not applicable SIGNED BY: Brendan Zapata January 07, 2024 10:12 AM [facility] 01-07-2024 History of Present illness Narrative Patient declined feed adviser. 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 As applicable, any other physician, advance practice provider, medical student, or other health professional student that will be observing or involved in the sensitive examination for educational or training purposes was discussed with the Patient or Authorized Motor Vehicle Licence Examiner. The Patient or Authorized Motor Vehicle Licence Examiner has agreed to proceed with the sensitive [...] external genitalia normal, normal Bartholin's glands, urethra, Innovation's glands, no vulvar lesions, no cervical lesions, [...] Tiffani Gant APRN.JAIRON documented in this encounter [facility] 01-07-2024 Note HNO ID: [id number] Author: TIFFANI GANT APRN.CNP Service: ? Author Type: Nurse Practitioner Type: Progress Notes Filed: 01/07/2024 11:40 Note Text: Patient declined feed adviser. 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 As applicable, any other physician, advance practice provider, medical student, or other health professional student that will be observing or involved in the sensitive examination for educational or training purposes was discussed with the Patient or Authorized Motor Vehicle Licence Examiner. The Patient or Authorized Motor Vehicle Licence Examiner has agreed to proceed with the sensitive [...] external genitalia normal, normal Bartholin's glands, urethra, Innovation's glands, no vulvar lesions, no cervical lesions, [...] up one year (more content not included)... [facility] 12-24-2023 Instructions Natalia Monge APRN.CNP - 12/24/2023 2:23 PM EDT 1) No change in medications 2) See Dr. Peralta in September as scheduled documented in this encounter [facility] 12-24-2023 Note HNO ID: [id number] Author: NATALIA MONGE APRN.CNP Service: ? Author [...] as needed for worsening/no improvement. Natalia Monge APRN.[facility] 12-24-2023 History of Present illness Narrative This [...] Natalia Monge APRN.JAIRON documented in this encounter [facility] 12-24-2023 Nurse Note 12/24/2023: Home BP Cuff Validated. Home BP: 125/83 P69 Office BP: 130/82 P:68 Celia Rider MA December 24, 2023 2:11 PM [facility] 12-24-2023 Nurse Note 12/24/2023: Home BP Cuff Validated. Home BP: 125/83 P69 Office BP: 130/82 P:68 Celia Rider MA December 24, 2023 2:11 PM documented in this encounter [facility] 12-22-2023 Telephone encounter Note Pt [...] appointment, along with cuff to be checked. [facility] 12-22-2023 Miscellaneous Notes Pt called [...] to be checked. documented in this encounter [facility] 12-14-2023 Telephone encounter Note Prescription [...] Arrieta LPN December 14, 2023 6:10 PM [facility] 12-14-2023 Miscellaneous Notes Prescription Refill [...] 2023 6:10 PM documented in this encounter [facility] 12-03-2023 Note HNO ID: [id number] Author: MAYRA LAN PA-C Service: ? Author Type: Physician Special Projects Coordinator Type: Progress Notes Filed: 12/03/2023 10:02 Note [...] If not improving, patient to contact office. Mayar Lan PA-C [facility] 12-03-2023 History of Present illness Narrative Chief [...] Mayra Lan PA-C documented in this encounter [facility] 11-24-2023 Note HNO ID: [id number] Author: REJI MORGAN PT Service: ? Author Type: Physical Therapist Type: Progress Notes Filed: 11/24/2023 11:22 Note Text: 11/24/2023 [facility] PHYSICAL THERAPY DISCONTINUANCE [...] scheduled additional follow-up appointments. Reji Morgan, PT [facility] 10-26-2023 Note HNO ID: [id number] Author: EUGENIO PERALTA MD Service: ? Author [...] patient in the medical record. arpan Gibbons IMPORT/EXPORT SPECIALIST, [facility]. Medical/Family history review Reviewed and updated allergies. [...] No history of dysuria, frequency or incontinence IMPORT/EXPORT SPECIALIST: Negative for abnormal vaginal bleeding, abnormal vaginal [...] regular exercise - Personalized prevention plan provided [facility] 10-26-2023 History of Present illness Narrative Images [...] in the medical record. Dr Kovacs, sees IMPORT/EXPORT SPECIALIST, [facility]. Medical/Family history review Reviewed and updated allergies. [...] No history of dysuria, frequency or incontinence IMPORT/EXPORT SPECIALIST: Negative for abnormal vaginal bleeding, abnormal vaginal [...] prevention plan provided documented in this encounter [facility] 10-26-2023 Evaluation note Diagnosis Mixed hyperlipidemia- Primary Chronic kidney disease, stage 3a (HCC) Screening for depression Encounter for screening examination for other mental health and behavioral disorders documented in this encounter [facility]05-30-2024 Telephone encounter Note* Telephone Encounter - Tiffani Gant APRN.CNP - 08/27/2023 7:50 AM EDT Orders filed. [facility]05-30-2024 Miscellaneous Notes* Telephone Encounter - Tiffani Gant APRN.CNP - 08/27/2023 7:50 AM EDT Orders filed. * Telephone Encounter - Rhonda Lyons RN - 08/26/2023 11:04 AM EDT Mamm with SAIRA order pending. Please file and then route to schedulers. Thank you. [facility] Telephone encounter Note * Telephone Encounter - Rhonda Lyons RN - 08/26/2023 11:04 AM EDT Mamm with SAIRA order pending. Please file and then route to schedulers. Thank you. [facility]05-04-2024 NoteHNO ID: [id number] Author: ENMANUEL WONG MD Service: ? Author [...] pain, or late onset fever. Enmanuel Wong, [facility]05-04-2024 History of Present illness Narrative* Enmanuel Wong [...] fever. Enmanuel Wong MD [facility] Miscellaneous Notes* Addendum Note - Eugenio Peralta MD - 06/15/2023 9:39 AM EDTAddended by: EUGENIO PERALTA on: 06/15/2023 09:39 AM Modules accepted: Orders [facility]24 NoteHNO ID: [id number] Author: LEXY KOVACS, DO Service: ? Author Type: Physician Type: Progress Notes Filed: 05/26/2023 15:08 Note Text: [facility] DEPARTMENT OF VASCULAR SURGERY OUTPATIENT VISIT DATE [...] Astud[place] DATE: May 26, 2023 TIME: 2:25 [facility]02-27-2024 History of Present illness Narrative* Lexy Kovacs DO - 05/26/2023 2:25 PM EST Images from the original note were not included. [facility] [place] DEPARTMENT OF VASCULAR SURGERY OUTPATIENT VISIT DATE [...] 2023 TIME: 2:25 PM documented in this encounterUniversity Hospitals Conneaut Medical Center02-05-2024 NoteHNO ID: [id number] Author: REJI MORGAN PT Service: ? Author [...] of Care: created on 05/04/23 through 06/02/23 [place] in home exercise program. Patient will decrease [...] Planned: 1 Planned Treatment Interventions: Therapeutic exercise (33867), Neuromuscular re-education (34310), Manual therapy (54579), Therapeutic activities (60061), Self-mcc management (29373), Patient/Family/Caregiver Education PLAN FOR NEXT VISIT: Assess [...] Shoulder ABduction: 140 Degr (more content not included)...[facility]01-23-2024 NoteHNO ID: [id number] Author: Mavis HUGHES PA-C Service: ? Author Type: Physician Special Projects Coordinator Type: Progress Notes Filed: 04/25/2023 14:21 Note [...] arm with trying to reach overhead, negative [place]'s, negative [place], negative lift off. Tender trigger [...] Patient choice was di (more content not included)...[facility]01-02-2024 History of Present illness Narrative* Ivis Pelayo [...] 31, 2023 12:47 PM documented in this encounterUniversity Hospitals Conneaut Medical Center11-21-2023 Instructions* Patient Instructions* Lexy Kovacs, [...] allow to air dry. There are also gun stocker recommendations included with your stockings. Skin care- [...] palm of the gloved will help you transmission supervisor the stocking while putting it on. Be [...] are wearing the most effective size. Locations: [facility]- [phone] [employer] [phone] www.[email or web address]- [phone] www.[employer]- [phone] Located in [facility] [place] and schedule a fitting. documented in this encounterUniversity Hospitals Conneaut Medical Center11-21-2023 History of Present illness Narrative* Lexy Kovacs DO - 02/17/2023 8:43 AM EST Images from the original note were not included. [facility] V[facility] [place] DEPARTMENT OF VASCULAR SURGERY OUTPATIENT VISIT DATE February 17, 2023 OUTPATIENT VISIT TYPE CONSULTATION SERVICE DATE: 02/17/2023 SERVICE TIME: 8:46 AM PRIMARY CARE PHYSICIAN: Eugenio Peralta MD REFERRING PROVIDER: Mavis Hughes [address] [facility] [address] Consult requested for an opinion regarding the [...] cancerous cells in uterus per Sharon Ellis, SUPERVISING FILM OR VIDEOTAPE EDITOR other (hysterectomy) Sister half-sister; unknown etiology Diabetes [...] 2023 TIME: 8:46 AM documented in this encounterUniversity Hospitals Conneaut Medical Center11-14-2023 History of Present illness Narrative* Reji Morgan, PT - 02/10/2023 10:26 AM EST Program_ID:[id number] Access Code: [email or web address] URL: [email or web address] Date: 02-10-2023 Prepared By: Reji Morgan Program [...] 1030 Reji Morgan PT documented in this encounterUniversity Hospitals Conneaut Medical Center11-08-2023 History of Present illness Narrative* Harry Faustin, PT - 02/04/2023 10:27 AM EST [facility] DME ISSUE NOTE Patient identified by name and date: Yes Subjective: Lucas Astudillo is a 67 year old female seen today for fitting and parts picker of custom foot orthotics. 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 Pt was educated on [...] Custom biomechanical foot orthotics with serial number: #[id number] were issued to patient and proof of receipt form signed by pt and therapist. All specifications for custom foot orthotics can be foundin orthotic evaluation visit note. Planned Interventions: Follow up as needed for brace fitting/issues. Billing:[facility]: Orthotics Management and Training (77969): 1:1 time: 15 minutes (1 unit: 8-22 mins) Equipment: [id number] pair of custom foot orthotics Total time: 15 minutes Harry Faustin PT documented in this encounterUniversity Hospitals Conneaut Medical Center10-31-2023 History of Present illness Narrative* [...] 1402 Reji Morgan PT documented in this encounterUniversity Hospitals Conneaut Medical Center10-23-2023 History of Present illness Narrative* [...] visit and 1 visit for fitting and parts picker) Planned Treatment Interventions: Orthosis / DME, Patient/Family/Caregiver Education, Self-care homemanagement (81723) PLAN FOR NEXT VISIT: Fitting and parts picker of custom foot orthotics Patient demonstrates [...] 1220 Harry Faustin PT documented in this encounterUniversity Hospitals Conneaut Medical Center10-17-2023 History of Present illness Narrative* [...] of Care: created on 12/04/22 through 02/10/23 [place] in home exercise program. (MET) Patient will [...] Patient to be seen for Therapeutic exercise (61669), Neuromuscular re-education (99318), Manual therapy (57138), Therapeutic activities (77188), Self-mcc management (31413), Patient/Family/Caregiver Education, Body Mechanics Training, General Conditioning [...] and tactile cuing. Manual Therapy: 1: [place] Distraction: Pull to patient tolerance. 2: Manual [...] 1622 Reji Morgan PT documented in this encounterUniversity Hospitals Conneaut Medical Center10-11-2023 Miscellaneous Notes* Telephone Encounter - [...] recommendations. Donna Edwards RN documented in this encounterUniversity Hospitals Conneaut Medical Center10-10-2023 Miscellaneous Notes* Letter - Coordinator, Mammography - 01/06/2023 1:42 PM EDT January 07, 2023 PID: [id number] Lucas Astudillo [address] [place] [address] Dear Ms. Astudillo, We are pleased to [...] report will be kept on [facility] at [facility] as part of your permanent medical record and are available for your continuing care. Thank you for allowing us to help in meeting your health care needs. Sincerely, Dr. Shoemaker Interpreting Radiologist [facility] (Normal over 40) documented in this encounterUniversity Hospitals Conneaut Medical Center10-09-2023 History of Present illness Narrative* [...] DATA: Not applicable SIGNED BY: Tameka Tomas G5 Jesse January 05, 2023 10:49 AM documented in this encounterUniversity Hospitals Conneaut Medical Center09-21-2023 Instructions* Patient Instructions* Jt Ramachandran [...] time on their feet, such as nurses, candlemaking laborer/waiters, andmail carriers, often experience plantar fasciitis. Athletes [...] choose the one that fits the best. [place] with your athletic shoes to find a [...] and repeat the exercise. documented in this encounterUniversity Hospitals Conneaut Medical Center09-21-2023 History of Present illness Narrative* [...] Ramachandran DPM Podiatry [address] [facility] [address] Dept: [phone] Dept * Vicki Valdovinos LPN - 12/18/2022 8:21 AM EDT AMB ROOMING INTAKE FLOWSHEET DATA Pain Pain Level: 2 Pain Location: Foot-Left Description: Other: See comment (tender) Duration Units: Years Frequency: Intermittent Intervention/Comfort measure: Reposition, Relaxation Patient presents with: Left Foot - New, Pain Right Foot - New, Pain Vicki Valdovinos LPN documented in this encounterUniversity Hospitals Conneaut Medical Center09-19-2023 History of Present illness Narrative* [...] and tactile cuing. Manual Therapy: 1: [place] Distraction: Pull to patient tolerance. 2: Manual [...] 1529 Reji Morgan PT documented in this encounterUniversity Hospitals Conneaut Medical Center09-15-2023 History of Present illness Narrative* [...] difficulty with replicating HEP exercises to start. Lucsa had decreased symptoms with lateral hip distraction [...] 743 Reji Morgan PT documented in this encounterUniversity Hospitals Conneaut Medical Center09-07-2023 History of Present illness Narrative* [...] of Care: created on 12/04/22 through 01/15/23 [place] in home exercise program. Patient will decrease [...] Planned: 4 Planned Treatment Interventions: Therapeutic exercise (90480), Neuromuscular re- education (46671), Manual therapy (02828), Therapeutic activities (87859), Self- mcc management (44952), Patient/Family/Caregiver Education, Body Mechanics Training, General Conditioning [...] PT Treatment Interventions: Therapeutic Exercise, Manual Therapy, Self-Mcfp Management Evaluation Therapeutic Exercise: 1: *SKC: 1x30 [...] and tactile cuing. Manual Therapy: 1: [place] Distraction: Pull to patient tolerance. 2: Manual L/S Traction with belt and knees propped on stool, caudal pull with belt to patient tolerance. Skilled Intervention: Manual skills to improve joint mobility, ROM, and decrease pain. Utilized anatomy knowledge of the therapist, and assessment of patient's response to intervention. Self-Mcfp Management: 1: *Discussion and education about previous [...] 1034 Reji Morgan PT documented in this encounterUniversity Hospitals Conneaut Medical Center09-06-2023 History of Present illness Narrative* [...] 03, 2022 10:03 AM documented in this encounterUniversity Hospitals Conneaut Medical Center09-06-2023 History of Present illness Narrative* [...] 03, 2022 8:51 AM documented in this encounterUniversity Hospitals Conneaut Medical Center08-30-2023 History of Present illness Narrative* Erendira Rivera - 11/26/2022 12:17 PM EDT Bilateral Foot documented in this encounterUniversity Hospitals Conneaut Medical Center08-28-2023 History of Present illness Narrative* Zoë Linder - 11/24/2022 11:59 AM EDT POPULATION HEALTH NAVIGATION OUTREACH Action/[facility] Support: Called pt to schedule an appt in Pain Management. m for pt to call [phone] for scheduling. Patient Identified by Name and : NO Outreach Outcome/Action Unable to reach patient: Left message Did you use a PCP flex slot to schedule this appointment? No Reason for Outreach Care Gap or Scheduling/Wellness visits Payer: Payor: O MEDICARE / Plan: Informed [employer] HMO / Product Type: HMO / Care Gap Reviewed:: Specialty Scheduling Reminder: Reminder note to check Health Maintenance for items below Health Maintenance items due: MAMMOGRAM due on 01/02/2023 Navigation Signature: Zoë Linder November 24, 2022 11:59 AM documented in this encounterUniversity Hospitals Conneaut Medical Center08-24-2023 Telephone encounter Note * Telephone Encounter - Giovanna Ling - 11/20/2022 3:23 PM EDT Patient is scheduled [facility]08-24-2023 Miscellaneous Notes* Telephone Encounter - [...] Please review and advise. documented in this encounterUniversity Hospitals Conneaut Medical Center08-24-2023 Telephone encounter Note * Telephone Encounter - Mavis Hughes PA-C - 11/20/2022 12:08 PM EDT Telephone on 11/19/22 CONSULT TO PHYSICAL THERAPY Arthritis of right sacroiliac joint (primary encounter diagnosis) ThanksTomasz PA-C [facility]08-23-2023 Telephone encounter Note* Telephone Encounter - Jan Arrieta LPN - 11/19/2022 9:17 AM EDT See lumbar xray result note- provider recommended PT or pain mgmt. Jan Arrieta LPN [facility]08-23-2023 Telephone encounter Note* Telephone Encounter - Agnes La - 11/19/2022 9:07 AM EDT Patient needs a physical therapy consult placed to schedule. Please review and advise. [facility]08-18-2023 History of Present illness Narrative* [...] 14, 2022 11:24 AM documented in this encounterUniversity Hospitals Conneaut Medical Center08-18-2023 Instructions* Patient Instructions* Mavis Hughes PA-C - 11/14/2022 11:05 AM EDT HEALTH MAINTENANCE: Your Body mass index is 31.15 kg/m . (Target BMI: 19-25) Regular aerobic exercise, low fat diet, and periodic exams are recommended Living Will & Medical Power of Community Educator recommended Periodic Pap smear per risk profile. [...] your usual activities immediately. documented in this encounterUniversity Hospitals Conneaut Medical Center08-18-2023 History of Present illness Narrative* Mavis Hughes PA-C - 11/14/2022 10:00 AM EDT 67 year old female with c/o well visit, BP check, last visit with ia 07/26/2020lydaise Maya Astudillo is a 67 year old female here for a Medicare wellness visit. Health Risk Assessment In general, health is: Good Concerns with balance: Not at all Concerns with teeth or dentures: Not at all Concerns with sexual function: Not at all [place] anxious, stressed, angry, irritable, lonely, isolated, or [...] concerns: Wants recheck on ear 11/01/2022 In [facility] Care for sore throat and ear pain. [...] Lymph 1.00 - 4.00 k/uL 1.51 1.29 [place]% % 5.6 5.7 Abs [place] <0.87 k/uL 0.28 0.24 Eosin% % 1.6 [...] kidney infection. Females: Climacteric early 50s. Sees IMPORT/EXPORT SPECIALIST for lichen sclerosis. No hx of ovarian [...] - ICD9: 701.0, ICD10: N90.4 Follows with IMPORT/EXPORT SPECIALIST 8. Wellness examination - ICD9: V70.0, ICD10: [...] 11/14/2022 2:04 PM EDT documented in this encounterUniversity Hospitals Conneaut Medical Center08-05-2023 Instructions* Patient Instructions* Johanne Santos [...] breath, inability to swallow. documented in this encounterUniversity Hospitals Conneaut Medical Center08-05-2023 History of Present illness Narrative* Johanne Santos APRN.CNP - 11/01/2022 10:17 AM EDT Subjective The history is provided by the patient. No modern languages professor was used. JOSE Astudillo is a 67 year old female [...] have confirmed and edited as necessary, the [facility] Review of Systems Constitutional: Negative for [...] indetail warranting prompt ER evaluation. Johanne Santos APRN.SUPERVISING FILM OR VIDEOTAPE EDITOR documented in this encounterUniversity Hospitals Conneaut Medical Center08-01-2023 Instructions* Patient Instructions* Crystal Pastrana PA-C - 10/28/2022 10:54 AM EDT -If dysphagia symptoms recur, would recommend esophageal manometry for further evaluation -Repeat EGD in 5 years for surveillance due to long-term PPI use The following instructions are important for you related to your office visit today with the [facility] General Surgeons. INSTRUCTIONS FOR PEPTIC ULCER [...] you should contact our office immediately @ [phone] and ask to be transferred to the General Surgery department. documented in this encounterUniversity Hospitals Conneaut Medical Center08-01-2023 History of Present illness Narrative* Crystal Pastrana PA-C - 10/28/2022 10:35 AM EDT FOLLOW UP VISIT - ENDOSCOPY NAME: uLcas Trejo [facility] NO.: [id number] DATE OF SERVICE: 10/28/2022 : 1955 REFERRING [...] which included preparing to see the patient, [id number] patient care, completing clinical documentation, obtaining and/or reviewing separately obtained history, counseling and educating the patient/family/caregiver, independently interpretin g results (not separately reported), and communicating results to the patient/family/caregiver. Crystal Pastrana PA-C documented in this encounterUniversity Hospitals Conneaut Medical Center07-25-2023 History of Present illness Narrative* [...] 21, 2022 12:55 PM documented in this encounterUniversity Hospitals Conneaut Medical Center07-24-2023 Nurse Note* Mary Torres RN - 10/20/2022 9:41 AM EDT Patient sitting up in bed tolerating snack and drink without problems. Mary Torres RN * Mary Torres RN - 10/20/2022 9:15 AM EDT Patient arrived to PACU, on left side, abomen soft. Drowsy.Denies pain. Mary Torres RN documented in this encounterUniversity Hospitals Conneaut Medical Center07-24-2023 History and physical note * [...] patient was offered a surgery/procedure at a [facility]. I have counseled the [...] 2022 TIME: 8:05 AM documented in this encounterUniversity Hospitals Conneaut Medical Center04-25-2023 History of Present illness Narrative* [...] cancerous cells in uterus per Sharon Ellis, SUPERVISING FILM OR VIDEOTAPE EDITOR other (Precancerous cervix cells) Other Niece (hysterectomy) [...] patient was offered a surgery/procedure at a [facility]. I have counseled the [...] mail. Crystal Pastrana PA-C documented in this encounterUniversity Hospitals Conneaut Medical Center04-25-2023 Nurse Note* Vikki Castillo LPN - 07/22/2022 1:19 PM EDT REVIEW [...] 2018 Vikki Castillo LPN documented in this encounterUniversity Hospitals Conneaut Medical Center03-07-2023 Miscellaneous Notes* Telephone Encounter - [...] advise, Alma Haq RN documented in this encounterUniversity Hospitals Conneaut Medical Center02-27-2023 Miscellaneous Notes* Telephone Encounter - Henny Loya LPN - 05/26/2022 9:02 AM EST Pt wanting order for 3D mammogram. Pt will call to schedule later. No need to return call to pt. Henny Loya LPN documented in this encounterUniversity Hospitals Conneaut Medical Center02-14-2023 Miscellaneous Notes* Telephone Encounter - Lin Rouse - 05/13/2022 8:40 AM EST No answer. Informed via VM. Advised to call back with any questions or concerns. Lin Rouse * Telephone Encounter - Mavis Hughes PA-C - 05/13/2022 4:39 AM EST Sure, as long as they realize I am detention age with no set plans but may [...] call and advise Pt. documented in this encounterUniversity Hospitals Conneaut Medical Center02-13-2023 History of Present illness Narrative* Estrella James LPN - 05/12/2022 10:23 AM EST Patient presents for COVID vaccine. Denies any problems at this time. Tolerated injection well. Estrella James LPN documented in this encounterUniversity Hospitals Conneaut Medical Center11-21-2022 History of Present illness Narrative* [...] 17, 2022 9:50 AM documented in this encounterUniversity Hospitals Conneaut Medical Center11-21-2022 Instructions* Patient Instructions* Lola Farris [...] know if no better/worsening. documented in this encounterUniversity Hospitals Conneaut Medical Center11-21-2022 History of Present illness Narrative* [...] as needed for worsening/no improvement. Lola Farris APRN.SUPERVISING FILM OR VIDEOTAPE EDITOR This note was partially generated using Kutoto voice recognition system. Note was reviewed for accuracy. There may be minor misspellings or grammar miscues with Powered [place] voice recognition. documented in this encounterUniversity Hospitals Conneaut Medical Center11-17-2022 History of Present illness Narrative* [...] plan Alberto Le APRN.CNP documented in this encounterUniversity Hospitals Conneaut Medical Center11-17-2022 Instructions* Patient Instructions* Alberto Le [...] spread by coughs, sneezes, anddirect contact, especially urjf-[id number]-ndle. A respiratory tract infection usually clears up [...] 102 F (39 C). documented in this encounterUniversity Hospitals Conneaut Medical Center10-31-2022 Miscellaneous Notes* Telephone Encounter - [...] 10/2022 Last refill: 12/2020 documented in this encounterUniversity Hospitals Conneaut Medical Center10-07-2022 Miscellaneous Notes* Letter - Mammography Coordinator - 01/03/2022 8:14 AM EDT January 03, 2022 PID: [id number] Lucas Astudillo [address] [place] [address] Dear Ms. Astudillo, We are pleased to [...] report will be kept on file at [facility] as part of your permanent medical record and are available for your continuing care. Thank you for allowing us to help in meeting your health care needs. Sincerely, Dr. Hammonds Interpreting Radiologist [facility] (Normal over 40) documented in this encounterUniversity Hospitals Conneaut Medical Center10-06-2022 History of Present illness Narrative* [...] 02, 2022 2:54 PM documented in this encounterUniversity Hospitals Conneaut Medical Center10-06-2022 History of Present illness Narrative* Tiffani Gant APRN.JAIRON - 01/02/2022 2:23 PM EDT Environmental Sustainability Manager offered: Patient declines. 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 Previous order then . Please file order. Rosie Galan RN documented in this encounterUniversity Hospitals Conneaut Medical Center08-19-2022 History of Present illness Narrative* Estrella James LPN - 11/15/2021 3:00 PM EDT Patient presents for Prevnar 20 vaccine. Denies any problems at this time. Tolerated injection well. Estrella James LPN documented in this encounterUniversity Hospitals Conneaut Medical Center04-28-2014 History of Past illness Narrative* Problem Noted Date Resolved Date GERD (gastroesophageal reflux disease) 4 09/14/2017 Carpal tunnel syndrome 01/12/2006 0 documented as of this encounter (statuses as of 11/01/2021) [facility]04-28-[facility] History of Past illness Narrative* Problem Noted Date Resolved Date GERD (gastroesophageal reflux disease) 4 09/14/2017 Carpal tunnel syndrome 01/12/2006 0 documented as of this encounter (statuses as of 11/15/2021) [facility] History of Past illness Narrative* Problem Noted Date Resolved Date GERD (gastroesophageal reflux disease) 4 09/14/2017 Carpal tunnel syndrome 01/12/2006 0 documented as of this encounter (statuses as of 11/18/2021) [facility] History of Past illness Narrative* Problem Noted Date Resolved Date GERD (gastroesophageal reflux disease) 4 09/14/2017 Carpal tunnel syndrome 01/12/2006 0 documented as of this encounter (statuses as of 12/10/2021) [facility] History of Past illness Narrative* Problem Noted Date Resolved Date GERD (gastroesophageal reflux disease) 4 09/14/2017 Carpal tunnel syndrome 01/12/2006 0 documented as of this encounter (statuses as of 12/17/2021) [address]28-2014 History of Past illness Narrative* Problem Noted Date Resolved Date GERD (gastroesophageal reflux disease) 4 09/14/2017 Carpal tunnel syndrome 01/12/2006 0 documented as of this encounter (statuses as of 01/02/2022) [place] [address]-28-2014 History of Past illness Narrative* Problem Noted Date Resolved Date GERD (gastroesophageal reflux disease) 4 09/14/2017 Carpal tunnel syndrome 01/12/2006 0 documented as of this encounter (statuses as of 01/03/2022) [place] [address]28-2014 History of Past illness Narrative* Problem Noted Date Resolved Date GERD (gastroesophageal reflux disease) 4 09/14/2017 Carpal tunnel syndrome 01/12/2006 0 documented as of this encounter (statuses as of 01/07/2022) [place] [address]28-2014 History of Past illness Narrative* Problem Noted Date Resolved Date GERD (gastroesophageal reflux disease) 4 09/14/2017 Carpal tunnel syndrome 01/12/2006 0 documented as of this encounter (statuses as of 01/27/2022) [place] [address]28-2014 History of Past illness Narrative* Problem Noted Date Resolved Date GERD (gastroesophageal reflux disease) 4 09/14/2017 Carpal tunnel syndrome 01/12/2006 0 documented as of this encounter (statuses as of 02/13/2022) [facility] of Past illness Narrative* Problem Noted Date Resolved Date GERD (gastroesophageal reflux disease) 4 09/14/2017 Carpal tunnel syndrome 01/12/2006 0 documented as of this encounter (statuses as of 02/17/2022) [facility] History of Past illness Narrative* Problem Noted Date Resolved Date GERD (gastroesophageal reflux disease) 4 09/14/2017 Carpal tunnel syndrome 01/12/2006 0 documented as of this encounter (statuses as of 05/12/2022) [facility]04-28-2014 History of Past illness Narrative* Problem Noted Date Resolved Date GERD (gastroesophageal reflux disease) 4 09/14/2017 Carpal tunnel syndrome 01/12/2006 0 documented as of this encounter (statuses as of 05/13/2022) [facility]04[facility]28-2014 History of Past illness Narrative* Problem Noted Date Resolved Date GERD (gastroesophageal reflux disease) 4 09/14/2017 Carpal tunnel syndrome 01/12/2006 0 documented as of this encounter (statuses as of 05/26/2022) [facility]28[facility]2014 History of Past illness Narrative* Problem Noted Date Resolved Date GERD (gastroesophageal reflux disease) 4 09/14/2017 Carpal tunnel syndrome 01/12/2006 0 documented as of this encounter (statuses as of 06/03/2022) [facility] History of Past illness Narrative* Problem Noted Date Resolved Date GERD (gastroesophageal reflux disease) 4 09/14/2017 Carpal tunnel syndrome 01/12/2006 0 documented as of this encounter (statuses as of 08/01/2022) [facility] History of Past illness Narrative* Problem Noted Date Diagnosed Date Resolved Date GERD (gastroesophageal reflux disease) 07/25/2013 09/14/2017 Carpal tunnel syndrome 01/12/200606/05 documented as of this encounter (statuses as of 10/28/2022) [place] [address]-28-2014 History of Past illness Narrative* Problem Noted Date Diagnosed Date Resolved Date GERD (gastroesophageal reflux disease) 07/25/2013 09/14/2017 Carpal tunnel syndrome 01/12/200606/05 documented as of this encounter (statuses as of 11/01/2022) [place] [address]-28-2014 History of Past illness Narrative* Problem Noted Date Diagnosed Date Resolved Date GERD (gastroesophageal reflux disease) 07/25/2013 09/14/2017 Carpal tunnel syndrome 01/12/200606/05 documented as of this encounter (statuses as of 11/14/2022) [address]28-2014 History of Past illness Narrative* Problem Noted Date Diagnosed Date Resolved Date GERD (gastroesophageal reflux disease) 07/25/2013 09/14/2017 Carpal tunnel syndrome 01/12/200606/05 documented as of this encounter (statuses as of 11/24/2022) [address]28-2014 History of Past illness Narrative* Problem Noted Date Diagnosed Date Resolved Date GERD (gastroesophageal reflux disease) 07/25/2013 09/14/2017 Carpal tunnel syndrome 01/12/200606/05 documented as of this encounter (statuses as of 11/26/2022) [address]28-2014 History of Past illness Narrative* Problem Noted Date Diagnosed Date Resolved Date GERD (gastroesophageal reflux disease) 07/25/2013 09/14/2017 Carpal tunnel syndrome 01/12/200606/05 documented as of this encounter (statuses as of 12/04/2022) [place] [address]-28-2014 History of Past illness Narrative* Problem Noted Date Diagnosed Date Resolved Date GERD (gastroesophageal reflux disease) 07/25/2013 09/14/2017 Carpal tunnel syndrome 01/12/200606/05 documented as of this encounter (statuses as of 12/05/2022) [address]28-2014 History of Past illness Narrative* Problem Noted Date Diagnosed Date Resolved Date GERD (gastroesophageal reflux disease) 07/25/2013 09/14/2017 Carpal tunnel syndrome 01/12/200606/05 documented as of this encounter (statuses as of 12/12/2022) [place] [address]-28-2014 History of Past illness Narrative* Problem Noted Date Diagnosed Date Resolved Date GERD (gastroesophageal reflux disease) 07/25/2013 09/14/2017 Carpal tunnel syndrome 01/12/200606/05 documented as of this encounter (statuses as of 12/17/2022) [address]28-2014 History of Past illness Narrative* Problem Noted Date Diagnosed Date Resolved Date GERD (gastroesophageal reflux disease) 07/25/2013 09/14/2017 Carpal tunnel syndrome 01/12/200606/05 documented as of this encounter (statuses as of 12/18/2022) [address]28-2014 History of Past illness Narrative* Problem Noted Date Diagnosed Date Resolved Date GERD (gastroesophageal reflux disease) 07/25/2013 09/14/2017 Carpal tunnel syndrome 01/12/200606/05 documented as of this encounter (statuses as of 01/07/2023) [address]28-2014 History of Past illness Narrative* Problem Noted Date Diagnosed Date Resolved Date GERD (gastroesophageal reflux disease) 07/25/2013 09/14/2017 Carpal tunnel syndrome 01/12/200606/05 documented as of this encounter (statuses as of 01/08/2023) [address]28-2014 History of Past illness Narrative* Problem Noted Date Diagnosed Date Resolved Date GERD (gastroesophageal reflux disease) 07/25/2013 09/14/2017 Carpal tunnel syndrome 01/12/200606/05 documented as of this encounter (statuses as of 01/10/2023) [address]28-2014 History of Past illness Narrative* Problem Noted Date Diagnosed Date Resolved Date GERD (gastroesophageal reflux disease) 07/25/2013 09/14/2017 Carpal tunnel syndrome 01/12/200606/05 documented as of this encounter (statuses as of 01/14/2023) [address]28-2014 History of Past illness Narrative* Problem Noted Date Diagnosed Date Resolved Date GERD (gastroesophageal reflux disease) 07/25/2013 09/14/2017 Carpal tunnel syndrome 01/12/200606/05 documented as of this encounter (statuses as of 01/20/2023) [address]28-2014 History of Past illness Narrative* Problem Noted Date Diagnosed Date Resolved Date GERD (gastroesophageal reflux disease) 07/25/2013 09/14/2017 Carpal tunnel syndrome 01/12/200606/05 documented as of this encounter (statuses as of 01/28/2023) [address]28-2014 History of Past illness Narrative* Problem Noted Date Diagnosed Date Resolved Date GERD (gastroesophageal reflux disease) 07/25/2013 09/14/2017 Carpal tunnel syndrome 01/12/200606/05 documented as of this encounter (statuses as of 02/01/2023) [address]28-2014 History of Past illness Narrative* Problem Noted Date Diagnosed Date Resolved Date GERD (gastroesophageal reflux disease) 07/25/2013 09/14/2017 Carpal tunnel syndrome 01/12/200606/05 documented as of this encounter (statuses as of 02/01/2023) [address]28-2014 History of Past illness Narrative* Problem Noted Date Diagnosed Date Resolved Date GERD (gastroesophageal reflux disease) 07/25/2013 09/14/2017 Carpal tunnel syndrome 01/12/200606/05 documented as of this encounter (statuses as of 02/01/2023) [address]28-2014 History of Past illness Narrative* Problem Noted Date Diagnosed Date Resolved Date GERD (gastroesophageal reflux disease) 07/25/2013 09/14/2017 Carpal tunnel syndrome 01/12/200606/05 documented as of this encounter (statuses as of 02/05/2023) [address]28-2014 History of Past illness Narrative* Problem Noted Date Diagnosed Date Resolved Date GERD (gastroesophageal reflux disease) 07/25/2013 09/14/2017 Carpal tunnel syndrome 01/12/200606/05 documented as of this encounter (statuses as of 02/10/2023) [place] [address]-28-2014 History of Past illness Narrative* Problem Noted Date Diagnosed Date Resolved Date GERD (gastroesophageal reflux disease) 07/25/2013 09/14/2017 Carpal tunnel syndrome 01/12/200606/05 documented as of this encounter (statuses as of 02/17/2023) [address]28-2014 History of Past illness Narrative* Problem Noted Date Diagnosed Date Resolved Date GERD (gastroesophageal reflux disease) 07/25/2013 09/14/2017 Carpal tunnel syndrome 01/12/200606/05 documented as of this encounter (statuses as of 02/24/2023) [address]28-2014 History of Past illness Narrative* Problem Noted Date Diagnosed Date Resolved Date GERD (gastroesophageal reflux disease) 07/25/2013 09/14/2017 Carpal tunnel syndrome 01/12/200606/05 documented as of this encounter (statuses as of 05/27/2023) [place] [address]-28-2014 History of Past illness Narrative* Problem Noted Date Diagnosed Date Resolved Date GERD (gastroesophageal reflux disease) 07/25/2013 09/14/2017 Carpal tunnel syndrome 01/12/200606/05 documented as of this encounter (statuses as of 06/15/2023) [facility] note* Diagnosis Need for COVID-19 vaccine- Primary [facility] Diagnosis Need for vaccination- Primary Need for prophylactic vaccination and inoculation against unspecified single disease [facility] Diagnosis Encounter for screening mammogram for malignant neoplasm of breast- Primary Other screening mammogram [facility] Diagnosis Essential hypertension- Primary Unspecified essential hypertension [facility] Diagnosis Encounter for gynecological examination (general) (routine) without abnormal findings- Primary Encounter for screening mammogram for breast cancer 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 [facility] Diagnosis Encounter for screening mammogram for malignant neoplasm of breast Other screening mammogram [facility] Diagnosis Gastroesophageal reflux disease without esophagitis Esophageal reflux [facility] Diagnosis URI, acute- Primary Acute upper respiratory infections of unspecified site Sore throat Acute pharyngitis [facility] Diagnosis Sinobronchitis- Primary Unspecified sinusitis (chronic) documented [facility] this [facility] Diagnosis Need for vaccination- Primary Need for prophylactic vaccination and inoculation against unspecified single disease [facility] Diagnosis Encounter for screening mammogram for malignant neoplasm of breast- Primary Other screening mammogram Dense breast tissue [facility] Diagnosis Dyskinesia of esophagus- Primary Gastroesophageal reflux disease without esophagitis Esophageal reflux Hx of acute gastritis Personal history of unspecified digestive disease [facility] Diagnosis Dyskinesia of esophagus Gastroesophageal reflux disease without esophagitis Esophageal reflux Hx of acute gastritis Personal history of unspecified digestive disease [facility] Diagnosis Dysphagia, unspecified type- Primary Chronic superficial gastritis without bleeding Atrophic gastritis without mention of hemorrhage Long-term current use of proton pump inhibitor therapy Allergic contact dermatitis due to adhesives Contact dermatitis and other eczema due to other chemical products [facility] Diagnosis Sore throat- Primary Acute pharyngitis URI, acute Acute upper respiratory infections of unspecified site Non-recurrent acute serous otitis media of right ear [facility]* Diagnosis Essential hypertension- Primary Unspecified [...] subsequent Routine [facility] Wellness examination [facility] Diagnosis Pain- Primary Generalized pain [facility]* Diagnosis Arthritis of right sacroiliac joint- Primary [facility]* Diagnosis Arthritis of right sacroiliac joint- Primary [facility]* Diagnosis Arthritis of right sacroiliac joint- Primary [facility]* Diagnosis Plantar fasciitis- Primary Plantar fascial fibromatosis Pes planus of both feet [facility] Diagnosis Symptomatic varicose veins of both lower extremities- Primary Varicose veins of lower extremities with other complications [facility] Diagnosis Plantar fasciitis Plantar fascial fibromatosis Flat feet, bilateral [facility]* Diagnosis Pulsatile abdomen Other symptoms involving abdomen and pelvis [facility]* Diagnosis Encounter for screening mammogram for malignant neoplasm of breast Other screening mammogram Dense breast tissue [facility] Diagnosis Gastroesophageal reflux disease, unspecified whether esophagitis present- Primary Gastroesophageal reflux disease with esophagitis without hemorrhage Gastric polyps Benign neoplasm of stomach Dysphagia, unspecified type [facility] Diagnosis Asymptomatic postmenopausal state documented [facility] this [facility] Diagnosis Plantar fasciitis- Primary Plantar fascial fibromatosis Flat feet, bilateral [facility]* Diagnosis Symptomatic varicose veins of both lower extremities Varicose veins of lower extremities with other complications [facility] Diagnosis Symptomatic varicose veins of both lower extremities- Primary Varicose veins of lower extremities with other complications documented [facility] this [facility] Diagnosis Dyskinesia of esophagus- Primary Gastroesophageal reflux disease without esophagitis Esophageal reflux [facility]* Diagnosis Rib pain on left side- Primary Chest pain, unspecified documented [facility] this [facility] Diagnosis Arthritis of right sacroiliac joint- Primary [facility] Diagnosis Encounter for screening mammogram for malignant neoplasm of breast- Primary Other screening mammogram [facility] Diagnosis Contact dermatitis, unspecified contact dermatitis type, unspecified trigger- Primary documented [facility] this [facility] Diagnosis Gastroesophageal reflux disease without esophagitis Esophageal reflux documented [facility] this [facility] Diagnosis URI, acute Acute upper respiratory infections of unspecified site Acute cough [facility] this [facility] Diagnosis Pain Generalized pain documented [facility] this [facility] Diagnosis Hand pain, right Pain in limb documented [facility] this [facility] Diagnosis Arthritis of right sacroiliac joint Lumbosacral pain Lumbago [facility] this [facility] Diagnosis Sinobronchitis Unspecified sinusitis (chronic) documented [facility] this [facility] Diagnosis Sinus congestion- Primary Other diseases of nasal cavity and sinuses Elevated blood pressure reading without diagnosis of hypertension documented [facility] this [facility] Diagnosis Encounter for gynecological examination (general) (routine) without abnormal findings- Primary Encounter for screening mammogram for breast cancer Postmenopausal atrophic vaginitis Screening for malignant neoplasm of cervix Screening for malignant neoplasm of the cervix Encounter for screening for human papillomavirus (HPV) Special screening examination for human papillomavirus (HPV) documented [facility] this encounter [facility] Diagnosis Encounter for screening mammogram for malignant neoplasm of breast Other screening mammogram documented in this encounter [facility] note* Diagnosis Primary hypertension- Primary Unspecified essential hypertension Acute pain of right knee documented in this encounter [facility] note* Diagnosis Acute pain of right knee documented in this encounter [facility] note* Diagnosis Primary hypertension- Primary Unspecified essential hypertension documented in this encounter [facility] note* Diagnosis Primary hypertension Unspecified essential hypertension documented in this encounter [facility] for referral (narrative)* Diagnostic Procedure Only (Routine) - Authorized Specialty Diagnoses / Procedures Referred By Esther baugh Referred To Contact [facility] Diagnoses Encounter for screening mammogram for malignant neoplasm of breast Procedures ELLIOT SCREENING SCREENING MAMMOGRAPHY BI 2-VIEW BREAST INC CAD Sharon Ellis APRN.SUPERVISING FILM OR VIDEOTAPE EDITOR [address] [place] [address] [facility] [address] [place] [address] Referral ID Status Reason Start Date Expiration Date Visits Requested Visits Authorized [id number] Authorized Auto-Generat ed Referral 12/10/2021 01/09/2023 1 1 [facility] for referral (narrative)* Diagnostic Procedure Only (Routine) - Pending Review Specialty Diagnoses / Procedures Referred By Esther baugh Referred To Contact [facility] Diagnoses Postmenopausal atrophic vaginitis Procedures ELLIOT SCREENING SCREENING MAMMOGRAPHY BI 2-VIEW BREAST INC CAD Tiffani Gant APRN.CNP [address] [place] [address] [facility] [address] [place] [address] Referral ID Status Reason Start Date Expiration Date Visits Requested Visits Authorized [id number] Pending Review Auto-Generat ed Referral 01/02/2022 02/01/2023 1 1 [facility] for referral (narrative)* Diagnostic Procedure Only (Routine) - Closed Specialty Diagnoses / Procedures Referred By Contac t Referred To Contact [facility] Diagnoses Encounter for screening mammogram for malignant neoplasm of breast Procedures ELLIOT SCREENING SCREENING MAMMOGRAPHY BI 2-VIEW BREAST INC Sharon Matias MACHINE SHOP APPRENTICE.SUPERVISING FILM OR VIDEOTAPE EDITOR [address] [place] [address] [facility] [address] [place] [address] Referral ID Status Reason Start Date Expiration Date V isits Requested Visits Authorized [id number] Closed Auto-Generate d Referral 12/10/2021 01/09/2023 1 1 [facility] for referral (narrative)* Diagnostic Procedure Only (Routine) - Authorized Specialty Diagnoses / Procedures Referred By Contac t Referred To Contact [facility] Diagnoses Encounter for screening mammogram for malignant neoplasm of breast Dense breast tissue Procedures ELLIOT SCREENING W SAIRA SCREENING DIGITAL BREAST TOMOSYNTHESIS BI SCREENING MAMMOGRAPHY BI 2-VIEW BREAST INC Tiffani Salcido, MACHINE SHOP APPRENTICE.SUPERVISING FILM OR VIDEOTAPE EDITOR [address] [address] [place] [address] [facility] [address] [place] [address] Referral ID Status Reason Start Date Expiration Date Visits Requested Visits Authorized [id number] Authorized Auto-Generat ed Referral 05/26/2022 06/25/2023 1 1 [facility] for referral (narrative)* Diagnostic Procedure Only (Routine) - Closed Specialty Diagnoses / Procedures Referred By Contac t Referred To Contact [facility] Diagnoses Arthritis of right sacroiliac joint Lumbosacral pain Procedures XR LUMBAR GENERAL 3V AP/LAT/L5-S1 RADEX SPINE LUMBOSACRAL 2/3 VIEWS Mavis Hughes PA-C [address] [place] [address] [place] [address] Referral ID Status Reason Start Date Expiration Date V isits Requested Visits Authorized [id number] Closed Auto-Generate d Referral 11/14/2022 12/14/2023 1 1 * Diagnostic Procedure Only (Routine) - Authorized Specialty Diagnoses / Procedures Referred By Genieac t Referred To Contact [facility] Diagnoses Pulsatile abdomen Procedures US SCREENING FOR AAA (2017) US ABDOMINAL AORTA REAL TIME SCREEN STUDY AAA Mavis Hughes PA-C [address] [place] [address] [place] [address] Referral ID Status Reason Start Date Expiration Date Visits Requested Visits Authorized [id number] Authorized Auto-Generat ed Referral 11/14/2022 12/14/2023 1 1 * Consult, Test, Treat (Routine) - Authorized Specialty Diagnoses / Procedures Referred By Esther t Referred To Contact Pain Management Diagnoses Arthritis of right sacroiliac joint Procedures CONSULT TO PAIN MGT OFFICE/OUTPATIENT NEW HIGH MDM 60-74 MINUTES Mavis Hughes PA-C [address] [place] [address] Referral ID Status Reason Start Date Expiration Date Visits Requested Visits Authorized [id number] Authorized PCP Requested Referral 11/14/2022 11/14/2023 1 1 [facility] for referral (narrative)* Diagnostic Procedure Only (Routine) - Authorized Specialty Diagnoses / Procedures Referred By Contac t Referred To Contact [facility] Diagnoses Pain Procedures XR FOOT GENERAL 3V AP/LAT/OBL BILATERAL RADEX FOOT COMPLETE MINIMUM 3 VIEWS Jt Ramachandran [address] [place] [address] [facility] [address] [place] [address] Referral ID Status Reason Start Date Expiration Date Visits Requested Visits Authorized [id number] Authorized Auto-Generat ed Referral 11/26/2022 12/26/2023 1 1 [facility] for referral (narrative)* Diagnostic Procedure Only (Routine) - Closed Specialty Diagnoses / Procedures Referred By Genieac t Referred To Contact [facility] Diagnoses Pulsatile abdomen Procedures US SCREENING FOR AAA (2017) US ABDOMINAL AORTA REAL TIME SCREEN STUDY AAA Mavis Hughes PA-C [address] [place] [address] [place] [address] Referral ID Status Reason Start Date Expiration Date V isits Requested Visits Authorized [id number] Closed Auto-Generate d Referral 11/14/2022 12/14/2023 1 1 [facility] for referral (narrative)* Diagnostic Procedure Only (Routine) - Closed Specialty Diagnoses / Procedures Referred By Esther t Referred To Contact [facility] Diagnoses Encounter for screening mammogram for malignant neoplasm of breast Dense breast tissue Procedures ELLIOT SCREENING W SAIRA SCREENING DIGITAL BREAST TOMOSYNTHESIS BI SCREENING MAMMOGRAPHY BI 2-VIEW BREAST INC Tiffani Salcido APRN.CNP [address] [place] [address] [facility] [address] [place] [address] Referral ID Status Reason Start Date Expiration Date V isits Requested Visits Authorized [id number] Closed Auto-Generate d Referral 05/26/2022 06/25/2023 1 1 [facility] for referral (narrative)* Outpatient Procedure (Routine) - Closed Specialty Diagnoses / Procedures Referred By Genieac t Referred To Contact [facility] Diagnoses Gastroesophageal reflux disease with esophagitis without hemorrhage Gastric polyps Dysphagia, unspecified type Procedures EGD DIAGNOSTIC ESOPHAGOGASTRODUODENOSC OPY TRANSORAL DIAGNOSTIC Crystal Pastrana PA-C [address] [place] [address] [facility] [address] [place] [address] Referral ID Status Reason Start Date Expiration Date V isits Requested Visits Authorized [id number] Closed Auto-Generate d Referral 07/22/2022 07/23/2023 1 1 [facility] for referral (narrative)* Outpatient Procedure (Routine) - Authorized Specialty Diagnoses / Procedures Referred By Contac t Referred To Contact [facility] Diagnoses Symptomatic varicose veins of both lower extremities Procedures US VENOUS INCOMPETENCY RONNI VAS LAB DUP-SCAN XTR VEINS COMPLETE BILATERAL STUDY Lexy Kovacs DO [address] [place] [address] [facility] [address] [place] [address] Referral ID Status Reason Start Date Expiration Date Visits Requested Visits Authorized [id number] Authorized Auto-Generat ed Referral 3 02/17/2024 [address] [facility] for referral (narrative)* Diagnostic Procedure Only (Routine) - Authorized Specialty Diagnoses / Procedures Referred By Contac t Referred To Contact [facility] Diagnoses Encounter for screening mammogram for malignant neoplasm of breast Procedures ELLIOT SCREENING W SAIRA SCREENING DIGITAL BREAST TOMOSYNTHESIS BI SCREENING MAMMOGRAPHY BI 2-VIEW BREAST INC Tiffani Salcido APRN.CNP [address] [facility] [place] [address] [facility] [address] [place] [address] Referral ID Status Reason Start Date Expiration Date Visits Requested Visits Authorized [id number] Authorized Auto-Generat ed Referral 08/27/2023 09/24/2024 1 1 T [facility] for referral (narrative)* Diagnostic Procedure Only (Routine) - Closed Specialty Diagnoses / Procedures Referred By Contac t Referred To Contact RADIO GENERAL [facility] INCLUDES [facility] Diagnoses Pain Procedures XR FOOT GENERAL 3V AP/LAT/OBL BILATERAL RADEX FOOT COMPLETE MINIMUM 3 VIEWS Jt Ramachandran [address] [place] [address] Radio General [facility] [address] [place] [address] Referral ID Status Reason Start Date Expiration Date V isits Requested Visits Authorized [id number] Closed Auto-Generate d Referral 11/26/2022 12/26/2023 1 1 [facility] for referral (narrative)* Diagnostic Procedure Only (Urgent) - Closed Specialty Diagnoses / Procedures Referred By Contac t Referred To Contact XR IMAGING Diagnoses Tendonitis of finger Procedures XR HAND GENERAL 3V PA/LAT/OBL RIGHT RADEX HAND MINIMUM 3 VIEWS Aury Albarado PA-C [address] [place] [address] [place] [address] Referral ID Status Reason Start Date Expiration Date V isits Requested Visits Authorized [id number] Closed Auto-Generate d Referral 10/21/2022 11/20/2023 1 1 [facility] for referral (narrative)* Diagnostic Procedure Only (Routine) - Closed Specialty Diagnoses / Procedures Referred By Contac t Referred To Contact XR IMAGING Diagnoses Arthritis of right sacroiliac joint Lumbosacral pain Procedures XR LUMBAR GENERAL 3V AP/LAT/L5-S1 RADEX SPINE LUMBOSACRAL 2/3 VIEWS Mavis Hughes PA-C [address] [place] [address] [place] [address] Referral ID Status Reason Start Date Expiration Date V isits Requested Visits Authorized [id number] Closed Auto-Generate d Referral 11/14/2022 12/14/2023 1 1 [facility] for referral (narrative)* Diagnostic Procedure Only (Routine) - Authorized Specialty Diagnoses / Procedures Referred By Contac t Referred To Contact [facility] Diagnoses Encounter for gynecological examination (general) (routine) without abnormal findings Encounter for screening mammogram for breast cancer Procedures ELLIOT SCREENING W SAIRA SCREENING DIGITAL BREAST TOMOSYNTHESIS BI SCREENING MAMMOGRAPHY BI 2-VIEW BREAST INC [facility] Tiffani Gant, NATALIA.SUPERVISING FILM OR VIDEOTAPE EDITOR [address] [place] [address] [facility] [address] [place] [address] Referral ID Status Reason Start Date Expiration Date Visits Requested Visits Authorized [id number] Authorized Auto-Generat ed Referral 02/05/2025 1 1 [facility] for referral (narrative)* Diagnostic Procedure Only (Routine) - Closed Specialty Diagnoses / Procedures Referred By Esther baugh Referred To Contact [facility] Diagnoses Encounter for screening mammogram for malignant neoplasm of breast Procedures ELLIOT SCREENING W SAIRA SCREENING DIGITAL BREAST TOMOSYNTHESIS BI SCREENING MAMMOGRAPHY BI 2-VIEW BREAST INC [facility] Tiffani Gant, MACHINE SHOP APPRENTICE.SUPERVISING FILM OR VIDEOTAPE EDITOR [address] [place] [address] [facility] [address] [place] [address] Referral ID Status Reason Start Date Expiration Date V isits Requested Visits Authorized [id number] Closed Auto-Generate d Referral 08/27/2023 09/24/2024 1 1 [facility] for referral (narrative)* Diagnostic Procedure Only (Routine) - Closed Specialty Diagnoses / Procedures Referred By Esther t Referred To Contact XR IMAGING Diagnoses Acute pain of right knee Procedures XR KNEE GENERAL 4V AP BOTH/PA BOTH/LAT/MERC RIGHT RADIOLOGIC EXAM KNEE COMPLETE 4/MORE VIEWS Lola Farris, MACHINE SHOP APPRENTICE.SUPERVISING FILM OR VIDEOTAPE EDITOR [address] [place] [address] [place] [address] Referral ID Status Reason Start Date Expiration Date V isits Requested Visits Authorized [id number] Closed Auto-Generate d Referral 02/22/2024 03/23/2025 1 1 [facility] for visit Narrative* Diagnostic Procedure Only (Routine) - Closed Specialty Diagnoses / Procedures Referred By Esther t Referred To Contact [facility] Diagnoses Encounter for screening mammogram for malignant neoplasm of breast Procedures ELLIOT SCREENING SCREENING MAMMOGRAPHY BI 2-VIEW BREAST INC CAD Sharon Ellis, MACHINE SHOP APPRENTICE.SUPERVISING FILM OR VIDEOTAPE EDITOR [address] [place] [address] [facility] [address] [place] [address] Referral ID Status Reason Start Date Expiration Date V isits Requested Visits Authorized [id number] Closed Auto-Generate d Referral 12/10/2021 01/09/2023 1 1 [facility] for visit Narrative* Diagnostic Procedure Only (Routine) - Closed Specialty Diagnoses / Procedures Referred By Esther t Referred To Contact [facility] Diagnoses Encounter for screening mammogram for malignant neoplasm of breast Dense breast tissue Procedures ELLIOT SCREENING W SAIRA SCREENING DIGITAL BREAST TOMOSYNTHESIS BI SCREENING MAMMOGRAPHY BI 2-VIEW BREAST INC CAD Tiffani Gant, MACHINE SHOP APPRENTICE.SUPERVISING FILM OR VIDEOTAPE EDITOR [address] [place] [address] [facility] [address] [place] [address] Referral ID Status Reason Start Date Expiration Date V isits Requested Visits Authorized [id number] Closed Auto-Generate d Referral 05/26/2022 06/25/2023 1 1 [facility] for visit Narrative* Outpatient Procedure (Routine) - Closed Specialty Diagnoses / Procedures Referred By Esther t Referred To Contact [facility] Diagnoses Gastroesophageal reflux disease with esophagitis without hemorrhage Gastric polyps Dysphagia, unspecified type Procedures EGD DIAGNOSTIC ESOPHAGOGASTRODUODENOSC OPY TRANSORAL DIAGNOSTIC Crystal Pastrana PA-C [address] [place] [address] [facility] [address] [place] [address] Referral ID Status Reason Start Date Expiration Date V isits Requested Visits Authorized [id number] Closed Auto-Generate d Referral 07/22/2022 07/23/2023 1 1 [facility] for visit Narrative* Diagnostic Procedure Only (Routine) - Closed Specialty Diagnoses / Procedures Referred By Contac t Referred To Contact [facility] Diagnoses Pain Procedures XR FOOT GENERAL 3V AP/LAT/OBL BILATERAL RADEX FOOT COMPLETE MINIMUM 3 VIEWS Jt Ramachandran [address] [place] [address] [facility] [address] [place] [address] Referral ID Status Reason Start Date Expiration Date V isits Requested Visits Authorized [id number] Closed Auto-Generate d Referral 11/26/2022 12/26/2023 1 1 [facility] for visit Narrative* Diagnostic Procedure Only (Urgent) - Closed Specialty Diagnoses / Procedures Referred By Contac t Referred To Contact XR IMAGING Diagnoses Tendonitis of finger Procedures XR HAND GENERAL 3V PA/LAT/OBL RIGHT RADEX HAND MINIMUM 3 VIEWS Aury Albarado, PA-C [address] [place] [address] [place] [address] Referral ID Status Reason Start Date Expiration Date V isits Requested Visits Authorized [id number] Closed Auto-Generate d Referral 10/21/2022 11/20/2023 1 1 [facility] for visit Narrative* Diagnostic Procedure Only (Routine) - Closed Specialty Diagnoses / Procedures Referred By Contac t Referred To Contact XR IMAGING Diagnoses Arthritis of right sacroiliac joint Lumbosacral pain Procedures XR LUMBAR GENERAL 3V AP/LAT/L5-S1 RADEX SPINE LUMBOSACRAL 2/3 VIEWS Mavis Hughes, PA-C [address] [place] [address] [place] [address] Referral ID Status Reason Start Date Expiration Date V isits Requested Visits Authorized [id number] Closed Auto-Generate d Referral 11/14/2022 12/14/2023 1 1 [facility] for visit Narrative* Diagnostic Procedure Only (Routine) - Closed Specialty Diagnoses / Procedures Referred By Contac t Referred To Contact [facility] Diagnoses Encounter for screening mammogram for malignant neoplasm of breast Procedures ELLIOT SCREENING W SAIRA SCREENING DIGITAL BREAST TOMOSYNTHESIS BI SCREENING MAMMOGRAPHY BI 2-VIEW BREAST INC CAD Tiffani Gant, MACHINE SHOP APPRENTICE.SUPERVISING FILM OR VIDEOTAPE EDITOR [address] [place] [address] [facility] [address] [place] [address] Referral ID Status Reason Start Date Expiration Date V isits Requested Visits Authorized [id number] Closed Auto-Generate d Referral 08/27/2023 09/24/2024 1 1 [facility] Diagnostic Procedure Only (Routine) - Closed Specialty Diagnoses / Procedures Referred By Esther baugh Referred To Contact XR IMAGING Diagnoses Acute pain of right knee Procedures XR KNEE GENERAL 4V AP BOTH/PA BOTH/LAT/MERC RIGHT RADIOLOGIC EXAM KNEE COMPLETE 4/MORE VIEWS Lola Farris, MACHINE SHOP APPRENTICE.SUPERVISING FILM OR VIDEOTAPE EDITOR [address] [place] [address] [place] [address] Referral ID Status Reason Start Date Expiration Date V isits Requested Visits Authorized [id number] Closed Auto-Generate d Referral 02/22/2024 03/23/2025 1 1 [facility] Summary Purpose Family History No Family History Records FoundNo Family History Records FoundNo Family History Records Found Advance Directives Documents on File Type Date 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 Advance Directive(s) 10/05/2017 7:42 AM Reason for Referral Specialty Diagnoses / Procedures Referred By Esther baugh Referred To Contact General Surgery Diagnoses Dyskinesia of esophagus Gastroesophageal reflux disease without esophagitis Hx of acute gastritis Procedures CONSULT TO GENERAL SURGERY OFFICE/OUTPATIENT [facility] 60-74 MINUTES Mavis Hughes PA-C [address] [place] [address] Referral ID Status Reason Start Date Expiration Date Visits Requested Visits Authorized [id number] Authorized PCP Requested Referral 06/02/2022 06/02/2023 1 1 Specialty Diagnoses / Procedures Referred By Esther t Referred To Contact Vascular Surgery Diagnoses Symptomatic varicose veins of both lower extremities Procedures CONSULT TO VASCULAR SURGERY OFFICE/OUTPATIENT [facility] 60-74 MINUTES Mavis Hughes PA-C [address] [place] [address] Referral ID Status Reason Start Date Expiration Date Visits Requested Visits Authorized [id number] Authorized PCP Requested Referral 3 01/06/2024 1 1 Specialty Diagnoses / Procedures Referred By Contac t Referred To Contact [facility] Diagnoses Arthritis of right sacroiliac joint Procedures CONSULT TO PHYSICAL THERAPY PHYSICAL THERAPY EVALUATION HIGH COMPLEX 45 MINS Mavis Hughes PA-C [address] [place] [address] [facility] [address] [place] [address] Referral ID Status Reason Start Date Expiration Date V isits Requested Visits Authorized [id number] Closed Auto-Generate d Referral 11/20/2022 03/29/2023 99 99 Medications Administered Section Inactive Administered Medications - up to 3 most recent administrations Medication Order MAR Action Action Date Dose Rate Site benzocaine 20% 1 [place] (TOPEX) 1 [place], TOPICAL, DIRECTED, Starting on Thu10/20/22 at 0930, Until Thu10/20/22 at 1329, DOSING DIRECTED BY PHYSICIAN FOR PROCEDURAL SEDATION ONLY - Pharmaceutical Waste: Aerosol -, Intraprocedure Given 10/20/2022 9:01 AM EDT 1 [place] diphenhydrAMINE 12.5-50 mg injection (BENADRYL) 12.5-50 mg, [...] section and content) DATE CREATED AUTHOR 06/13/2020 [facility] DATE CREATED AUTHOR AUTHOR'S ORGANIZ ATION 04/19/2024 [facility] DATE CREATED AUTHOR AUTHOR'S ORGANIZ ATION 04/29/2024 [facility] Source Comments (unrecognize d section and content) In the event this informatio n is protected by the Federal Confidentiality of Alcohol and Drug Abuse Patient Records regulations: The Federal rules restrict any use of the information to criminally investigate or prosecute any alcohol or drug abuse patient.[facility] the event this information is protected by the Federal Confidentiality of Alcohol and Drug Abuse Patient Records regulations: The Federal rules restrict any use of the information to criminally investigate or prosecute any alcohol or drug abuse patient.[facility] Center[facility] the event this information is protected by the Federal Confidentiality of Alcohol and Drug Abuse Patient Records regulations: The Federal rules restrict any use of the information to criminally investigate or prosecute any alcohol or drug abuse patient.[facility] Center[facility] the event this information is protected by the Federal Confidentiality of Alcohol and Drug Abuse Patient Records regulations: The Federal rules restrict any use of the information to criminally investigate or prosecute any alcohol or drug abuse patient.[facility] CenterIn the event this information is protected by the Federal Confidentiality of Alcohol and Drug Abuse Patient Records regulations: The Federal rules restrict any use of the information to criminally investigate or prosecute any alcohol or drug abuse patient.[facility] CenterIn the event this information is protected by the Federal Confidentiality of Alcohol and Drug Abuse Patient Records regulations: The Federal rules restrict any use of the information to criminally investigate or prosecute any alcohol or drug abuse patient.[facility] CenterIn the event this information is protected by the Federal Confidentiality of Alcohol and Drug Abuse Patient Records regulations: The Federal rules restrict any use of the information to criminally investigate or prosecute any alcohol or drug abuse patient.[facility] CenterIn the event this information is protected by the Federal Confidentiality of Alcohol and Drug Abuse Patient Records regulations: The Federal rules restrict any use of the information to criminally investigate or prosecute any alcohol or drug abuse patient.[facility] CenterIn the event this information is protected by the Federal Confidentiality of Alcohol and Drug Abuse Patient Records regulations: The Federal rules restrict any use of the information to criminally investigate or prosecute any alcohol or drug abuse patient.[facility] CenterIn the event this information is protected by the Federal Confidentiality of Alcohol and Drug Abuse Patient Records regulations: The Federal rules restrict any use of the information to criminally investigate or prosecute any alcohol or drug abuse patient.[facility] CenterIn the event this information is protected by the Federal Confidentiality of Alcohol and Drug Abuse Patient Records regulations: The Federal rules restrict any use of the information to criminally investigate or prosecute any alcohol or drug abuse patient.[facility] CenterIn the event this information is protected by the Federal Confidentiality of Alcohol and Drug Abuse Patient Records regulations: The Federal rules restrict any use of the information to criminally investigate or prosecute any alcohol or drug abuse patient.[facility] CenterIn the event this information is protected by the Federal Confidentiality of Alcohol and Drug Abuse Patient Records regulations: The Federal rules restrict any use of the information to criminally investigate or prosecute any alcohol or drug abuse patient.[facility] CenterIn the event this information is protected by the Federal Confidentiality of Alcohol and Drug Abuse Patient Records regulations: The Federal rules restrict any use of the information to criminally investigate or prosecute any alcohol or drug abuse patient.[facility] CenterIn the event this information is protected by the Federal Confidentiality of Alcohol and Drug Abuse Patient Records regulations: The Federal rules restrict any use of the information to criminally investigate or prosecute any alcohol or drug abuse patient.[facility] CenterIn the event this information is protected by the Federal Confidentiality of Alcohol and Drug Abuse Patient Records regulations: The Federal rules restrict any use of the information to criminally investigate or prosecute any alcohol or drug abuse patient.[facility] CenterIn the event this information is protected by the Federal Confidentiality of Alcohol and Drug Abuse Patient Records regulations: The Federal rules restrict any use of the information to criminally investigate or prosecute any alcohol or drug abuse patient.[facility] CenterIn the event this information is protected by the Federal Confidentiality of Alcohol and Drug Abuse Patient Records regulations: The Federal rules restrict any use of the information to criminally investigate or prosecute any alcohol or drug abuse patient.[facility] CenterIn the event this information is protected by the Federal Confidentiality of Alcohol and Drug Abuse Patient Records regulations: The Federal rules restrict any use of the information to criminally investigate or prosecute any alcohol or drug abuse patient.[facility] CenterIn the event this information is protected by the Federal Confidentiality of Alcohol and Drug Abuse Patient Records regulations: The Federal rules restrict any use of the information to criminally investigate or prosecute any alcohol or drug abuse patient.[facility] CenterIn the event this information is protected by the Federal Confidentiality of Alcohol and Drug Abuse Patient Records regulations: The Federal rules restrict any use of the information to criminally investigate or prosecute any alcohol or drug abuse patient.[facility] CenterIn the event this information is protected by the Federal Confidentiality of Alcohol and Drug Abuse Patient Records regulations: The Federal rules restrict any use of the information to criminally investigate or prosecute any alcohol or drug abuse patient.[facility] CenterIn the event this information is protected by the Federal Confidentiality of Alcohol and Drug Abuse Patient Records regulations: The Federal rules restrict any use of the information to criminally investigate or prosecute any alcohol or drug abuse patient.[facility] CenterIn the event this information is protected by the Federal Confidentiality of Alcohol and Drug Abuse Patient Records regulations: The Federal rules restrict any use of the information to criminally investigate or prosecute any alcohol or drug abuse patient.[facility] CenterIn the event this information is protected by the Federal Confidentiality of Alcohol and Drug Abuse Patient Records regulations: The Federal rules restrict any use of the information to criminally investigate or prosecute any alcohol or drug abuse patient.[facility] CenterIn the event this information is protected by the Federal Confidentiality of Alcohol and Drug Abuse Patient Records regulations: The Federal rules restrict any use of the information to criminally investigate or prosecute any alcohol or drug abuse patient.[facility] CenterIn the event this information is protected by the Federal Confidentiality of Alcohol and Drug Abuse Patient Records regulations: The Federal rules restrict any use of the information to criminally investigate or prosecute any alcohol or drug abuse patient.[facility] CenterIn the event this information is protected by the Federal Confidentiality of Alcohol and Drug Abuse Patient Records regulations: The Federal rules restrict any use of the information to criminally investigate or prosecute any alcohol or drug abuse patient.[facility] CenterIn the event this information is protected by the Federal Confidentiality of Alcohol and Drug Abuse Patient Records regulations: The Federal rules restrict any use of the information to criminally investigate or prosecute any alcohol or drug abuse patient.[facility] CenterIn the event this information is protected by the Federal Confidentiality of Alcohol and Drug Abuse Patient Records regulations: The Federal rules restrict any use of the information to criminally investigate or prosecute any alcohol or drug abuse patient.[facility] CenterIn the event this information is protected by the Federal Confidentiality of Alcohol and Drug Abuse Patient Records regulations: The Federal rules restrict any use of the information to criminally investigate or prosecute any alcohol or drug abuse patient.[facility] CenterIn the event this information is protected by the Federal Confidentiality of Alcohol and Drug Abuse Patient Records regulations: The Federal rules restrict any use of the information to criminally investigate or prosecute any alcohol or drug abuse patient.[facility] CenterIn the event this information is protected by the Federal Confidentiality of Alcohol and Drug Abuse Patient Records regulations: The Federal rules restrict any use of the information to criminally investigate or prosecute any alcohol or drug abuse patient.[facility] CenterIn the event this information is protected by the Federal Confidentiality of Alcohol and Drug Abuse Patient Records regulations: The Federal rules restrict any use of the information to criminally investigate or prosecute any alcohol or drug abuse patient.[facility] CenterIn the event this information is protected by the Federal Confidentiality of Alcohol and Drug Abuse Patient Records regulations: The Federal rules restrict any use of the information to criminally investigate or prosecute any alcohol or drug abuse patient.[facility] CenterIn the event this information is protected by the Federal Confidentiality of Alcohol and Drug Abuse Patient Records regulations: The Federal rules restrict any use of the information to criminally investigate or prosecute any alcohol or drug abuse patient.[facility] CenterIn the event this information is protected by the Federal Confidentiality of Alcohol and Drug Abuse Patient Records regulations: The Federal rules restrict any use of the information to criminally investigate or prosecute any alcohol or drug abuse patient.[facility] CenterIn the event this information is protected by the Federal Confidentiality of Alcohol and Drug Abuse Patient Records regulations: The Federal rules restrict any use of the information to criminally investigate or prosecute any alcohol or drug abuse patient.[facility] CenterIn the event this information is protected by the Federal Confidentiality of Alcohol and Drug Abuse Patient Records regulations: The Federal rules restrict any use of the information to criminally investigate or prosecute any alcohol or drug abuse patient.[facility] CenterIn the event this information is protected by the Federal Confidentiality of Alcohol and Drug Abuse Patient Records regulations: The Federal rules restrict any use of the information to criminally investigate or prosecute any alcohol or drug abuse patient.[facility] CenterIn the event this information is protected by the Federal Confidentiality of Alcohol and Drug Abuse Patient Records regulations: The Federal rules restrict any use of the information to criminally investigate or prosecute any alcohol or drug abuse patient.[facility] CenterIn the event this information is protected by the Federal Confidentiality of Alcohol and Drug Abuse Patient Records regulations: The Federal rules restrict any use of the information to criminally investigate or prosecute any alcohol or drug abuse patient.[facility] CenterIn the event this information is protected by the Federal Confidentiality of Alcohol and Drug Abuse Patient Records regulations: The Federal rules restrict any use of the information to criminally investigate or prosecute any alcohol or drug abuse patient.[facility] CenterIn the event this information is protected by the Federal Confidentiality of Alcohol and Drug Abuse Patient Records regulations: The Federal rules restrict any use of the information to criminally investigate or prosecute any alcohol or drug abuse patient.[facility] CenterIn the event this information is protected by the Federal Confidentiality of Alcohol and Drug Abuse Patient Records regulations: The Federal rules restrict any use of the information to criminally investigate or prosecute any alcohol or drug abuse patient.[facility] CenterIn the event this information is protected by the Federal Confidentiality of Alcohol and Drug Abuse Patient Records regulations: The Federal rules restrict any use of the information to criminally investigate or prosecute any alcohol or drug abuse patient.[facility] CenterIn the event this information is protected by the Federal Confidentiality of Alcohol and Drug Abuse Patient Records regulations: The Federal rules restrict any use of the information to criminally investigate or prosecute any alcohol or drug abuse patient.[facility] CenterIn the event this information is protected by the Federal Confidentiality of Alcohol and Drug Abuse Patient Records regulations: The Federal rules restrict any use of the information to criminally investigate or prosecute any alcohol or drug abuse patient.[facility] CenterIn the event this information is protected by the Federal Confidentiality of Alcohol and Drug Abuse Patient Records regulations: The Federal rules restrict any use of the information to criminally investigate or prosecute any alcohol or drug abuse patient.[facility] CenterIn the event this information is protected by the Federal Confidentiality of Alcohol and Drug Abuse Patient Records regulations: The Federal rules restrict any use of the information to criminally investigate or prosecute any alcohol or drug abuse patient.[facility] CenterIn the event this information is protected by the Federal Confidentiality of Alcohol and Drug Abuse Patient Records regulations: The Federal rules restrict any use of the information to criminally investigate or prosecute any alcohol or drug abuse patient.[facility] CenterIn the event this information is protected by the Federal Confidentiality of Alcohol and Drug Abuse Patient Records regulations: The Federal rules restrict any use of the information to criminally investigate or prosecute any alcohol or drug abuse patient.[facility] CenterIn the event this information is protected by the Federal Confidentiality of Alcohol and Drug Abuse Patient Records regulations: The Federal rules restrict any use of the information to criminally investigate or prosecute any alcohol or drug abuse patient.[facility] CenterIn the event this information is protected by the Federal Confidentiality of Alcohol and Drug Abuse Patient Records regulations: The Federal rules restrict any use of the information to criminally investigate or prosecute any alcohol or drug abuse patient.[facility] CenterIn the event this information is protected by the Federal Confidentiality of Alcohol and Drug Abuse Patient Records regulations: The Federal rules restrict any use of the information to criminally investigate or prosecute any alcohol or drug abuse patient.[facility] CenterIn the event this information is protected by the Federal Confidentiality of Alcohol and Drug Abuse Patient Records regulations: The Federal rules restrict any use of the information to criminally investigate or prosecute any alcohol or drug abuse patient.[facility] CenterIn the event this information is protected by the Federal Confidentiality of Alcohol and Drug Abuse Patient Records regulations: The Federal rules restrict any use of the information to criminally investigate or prosecute any alcohol or drug abuse patient.[facility] CenterIn the event this information is protected by the Federal Confidentiality of Alcohol and Drug Abuse Patient Records regulations: The Federal rules restrict any use of the information to criminally investigate or prosecute any alcohol or drug abuse patient.[facility] CenterIn the event this information is protected by the Federal Confidentiality of Alcohol and Drug Abuse Patient Records regulations: The Federal rules restrict any use of the information to criminally investigate or prosecute any alcohol or drug abuse patient.[facility] CenterIn the event this information is protected by the Federal Confidentiality of Alcohol and Drug Abuse Patient Records regulations: The Federal rules restrict any use of the information to criminally investigate or prosecute any alcohol or drug abuse patient.[facility] CenterIn the event this information is protected by the Federal Confidentiality of Alcohol and Drug Abuse Patient Records regulations: The Federal rules restrict any use of the information to criminally investigate or prosecute any alcohol or drug abuse patient.[facility] CenterIn the event this information is protected by the Federal Confidentiality of Alcohol and Drug Abuse Patient Records regulations: The Federal rules restrict any use of the information to criminally investigate or prosecute any alcohol or drug abuse patient.[facility] CenterIn the event this information is protected by the Federal Confidentiality of Alcohol and Drug Abuse Patient Records regulations: The Federal rules restrict any use of the information to criminally investigate or prosecute any alcohol or drug abuse patient.[facility] CenterIn the event this information is protected by the Federal Confidentiality of Alcohol and Drug Abuse Patient Records regulations: The Federal rules restrict any use of the information to criminally investigate or prosecute any alcohol or drug abuse patient.[facility] Reason for Visit (unrecogniz ed section and content) Reason Comments Physical Therapy Specialty Diagnoses / Procedures Referred By Esther baugh Referred To Contact [facility] Diagnoses Arthritis of right sacroiliac joint Procedures CONSULT TO PHYSICAL THERAPY PHYSICAL THERAPY EVALUATION HIGH COMPLEX 45 MINS Mavis Hughes PA-C [address] [place] [address] [facility] [address] [place] [address] Referral ID Status Reason Start Date Expiration Date Visits Requested Visits Authorized [id number] Authorized Auto-Generat ed Referral 11/20/2022 03/29/2023 99 [...] HIGH MDM 60-74 MINUTES Mavis Hughes PA-C [address] [place] [address] Referral ID Status Reason Start Date Expiration Date V isits Requested Visits Authorized [id number] Closed PCP Requested Referral 06/02/2022 06/02/2023 1 [...] TIME SCREEN STUDY AAA Mavis Hughes PA-C [address] [place] [address] [place] [address] Referral ID Status Reason Start Date Expiration Date V isits Requested Visits Authorized [id number] Closed Auto-Generate d Referral 11/14/2022 12/14/2023 1 1 Reason Comments New Patient Specialty Diagnoses / Procedures Referred By Esther baugh Referred To Contact Vascular Surgery Diagnoses Symptomatic varicose veins of both lower extremities Procedures CONSULT TO VASCULAR SURGERY OFFICE/OUTPATIENT NEW HIGH MDM 60-74 MINUTES Mavis Hughes PA-C [address] [place] [address] Referral ID Status Reason Start Date Expiration Date V isits Requested Visits Authorized [id number] Closed PCP Requested Referral 01/06/2023 01/06/2024 1 1 Reason Comments Established Patient Reason Comments Pain L side rib pain x1 w [place] Reason Comments Wellness Reason Comments Derm Problem rash Reason Onset Date Comments Refill Request 12/14/2023 Reason Comments Appointment Patient Update Reason Comments Hypertension Blood pressure follo w up Reason Comments Well Woman Reason Comments Recheck BP check Reason Comments Blood Pressure Reason Onset Date Comments Refill Request 08/27/2024 Care Teams (unrecognized sec tion and content) Deep Submergence Vehicle Operator Relationship Specialty Start Date End Date Mavis Hughes PA-C [address] [place] [address] PCP - General Family Practice 09/14/17 Deep Submergence Vehicle Operator Relationship Specialty Start Date End Date Mavis Hughes PA-C [address] [place] [address] PCP - General Family Practice 09/14/17 Deep Submergence Vehicle Operator Relationship Specialty Start Date End Date Mavis Hughes PA-C [address] [place] [address] PCP - General Family Practice 09/14/17 Deep Submergence Vehicle Operator Relationship Specialty Start Date End Date Mavis Hughes PA-C [address] [place] [address] PCP - General Family Medicine 09/14/17 Deep Submergence Vehicle Operator Relationship Specialty Start Date End Date Mavis Hughes PA-C [address] [place] [address] PCP - General Family Medicine 09/14/17 Deep Submergence Vehicle Operator Relationship Specialty Start Date End Date Mavis Hughes PA-C [address] [place] [address] PCP - General Family Medicine 09/14/17 Deep Submergence Vehicle Operator Relationship Specialty Start Date End Date Mavis Hughes PA-C [address] [place] [address] PCP - General Family Medicine 09/14/17 Deep Submergence Vehicle Operator Relationship Specialty Start Date End Date Mavis Hughes PA-C [address] [place] [address] PCP - General Family Medicine 09/14/17 Deep Submergence Vehicle Operator Relationship Specialty Start Date End Date Mavis Hughes PA-C [address] [place] [address] PCP - General Family Medicine 09/14/17 Deep Submergence Vehicle Operator Relationship Specialty Start Date End Date Mavis Hughes PA-C [address] [place] [address] PCP - General Family Medicine 09/14/17 Deep Submergence Vehicle Operator Relationship Specialty Start Date End Date Mavis Hughes PA-C [address] [place] [address] PCP - General Family Medicine 09/14/17 Deep Submergence Vehicle Operator Relationship Specialty Start Date End Date Mavis Hughes PA-C [address] [place] [address] PCP - General Family Medicine 09/14/17 Deep Submergence Vehicle Operator Relationship Specialty Start Date End Date Mavis Hughes PA-C [address] [place] [address] PCP - General Family Medicine 09/14/17 Deep Submergence Vehicle Operator Relationship Specialty Start Date End Date Eugenio Peralta MD [address] [place] [address] PCP - General Family Medicine 08/20/22 Deep Submergence Vehicle Operator Relationship Specialty Start Date End Date Eugenio Peralta MD [address] [place] [address] PCP - General Family Medicine 08/20/22 Deep Submergence Vehicle Operator Relationship Specialty Start Date End Date Eugenio Peralta MD [address] [place] [address] PCP - General Family Medicine 08/20/22 Deep Submergence Vehicle Operator Relationship Specialty Start Date End Date Eugenio Peralta MD [address] [place] [address] PCP - General Family Medicine 08/20/22 Deep Submergence Vehicle Operator Relationship Specialty Start Date End Date Eugenio Peralta MD [address] [place] [address] PCP - General Family Medicine 08/20/22 Deep Submergence Vehicle Operator Relationship Specialty Start Date End Date Eugenio Peralta MD [address] [place] [address] PCP - General Family Medicine 08/20/22 Deep Submergence Vehicle Operator Relationship Specialty Start Date End Date Eugenio Peralta MD [address] [place] [address] PCP - General Family Medicine 08/20/22 Deep Submergence Vehicle Operator Relationship Specialty Start Date End Date Eugenio Peralta MD [address] [place] [address] PCP - General Family Medicine 08/20/22 Deep Submergence Vehicle Operator Relationship Specialty Start Date End Date Eugenio Peralta MD [address] [place] [address] PCP - General Family Medicine 08/20/22 Deep Submergence Vehicle Operator Relationship Specialty Start Date End Date Eugenio Peralta MD [address] [place] [address] PCP - General Family Medicine 08/20/22 Deep Submergence Vehicle Operator Relationship Specialty Start Date End Date Eugenio Peralta MD [address] [place] [address] PCP - General Family Medicine 08/20/22 Deep Submergence Vehicle Operator Relationship Specialty Start Date End Date Eugenio Peralta MD [address] [place] [address] PCP - General Family Medicine 08/20/22 Deep Submergence Vehicle Operator Relationship Specialty Start Date End Date Eugenio Peralta MD [address] [place] [address] PCP - General Family Medicine 08/20/22 Deep Submergence Vehicle Operator Relationship Specialty Start Date End Date Eugenio Peralta MD [address] [place] [address] PCP - General Family Medicine 08/20/22 Deep Submergence Vehicle Operator Relationship Specialty Start Date End Date Eugenio Peralta MD [address] [place], [place] [address] PCP - General Family Medicine 08/20/22 Deep Submergence Vehicle Operator Relationship Specialty Start Date End Date Eugenio Peralta MD [address] [place], [place] [address] PCP - General Family Medicine 08/20/22 Deep Submergence Vehicle Operator Relationship Specialty Start Date End Date Eugenio Peralta MD [address] [place] [address] PCP - General Family Medicine 08/20/22 Deep Submergence Vehicle Operator Relationship Specialty Start Date End Date Eugenio Peralta MD [address] [place] [address] PCP - General Family Medicine 08/20/22 Deep Submergence Vehicle Operator Relationship Specialty Start Date End Date Eugenio Peralta MD [address] [place] [address] PCP - General Family Medicine 08/20/22 Deep Submergence Vehicle Operator Relationship Specialty Start Date End Date Eugenio Peralta MD [address] [place] [address] PCP - General Family Medicine 08/20/22 Deep Submergence Vehicle Operator Relationship Specialty Start Date End Date Eugenio Peralta MD [address] [place] [address] PCP - General Family Medicine 08/20/22 Deep Submergence Vehicle Operator Relationship Specialty Start Date End Date Eugenio Peralta MD [address] [place] [address] PCP - General Family Medicine 08/20/22 Deep Submergence Vehicle Operator Relationship Specialty Start Date End Date Eugenio Peralta MD [address] [place], [place] [address] PCP - General Family Medicine 08/20/22 Deep Submergence Vehicle Operator Relationship Specialty Start Date End Date Eugenio Peralta MD [address] [place], [place] [address] PCP - General Family Medicine 08/20/22 Deep Submergence Vehicle Operator Relationship Specialty Start Date End Date Eugenio Peralta MD [address] [place] [address] PCP - General Family Medicine 08/20/22 Deep Submergence Vehicle Operator Relationship Specialty Start Date End Date Mavis Hughes PA-C [address] [place] [address] PCP - General Family Medicine 09/14/17 08/19/22 Deep Submergence Vehicle Operator Relationship Specialty Start Date End Date Eugenio Peralta MD [address] [place] [address] PCP - General Family Medicine 08/20/22 Deep Submergence Vehicle Operator Relationship Specialty Start Date End Date Eugenio Peralta MD [address] [place] [address] PCP - General Family Medicine 08/20/22 Deep Submergence Vehicle Operator Relationship Specialty Start Date End Date Eugenio Peralta MD [address] [place] [address] PCP - General Family Medicine 08/20/22 Deep Submergence Vehicle Operator Relationship Specialty Start Date End Date Eugenio Peralta MD [address] [place] [address] PCP - General Family Medicine 08/20/22 Deep Submergence Vehicle Operator Relationship Specialty Start Date End Date Eugenio Peralta MD [address] [place] [address] PCP - General Family Medicine 08/20/22 Deep Submergence Vehicle Operator Relationship Specialty Start Date End Date Eugenio Peralta MD [address] [place] [address] PCP - General [facility] Medicine 08/20/22 Lola Farris APRN.SUPERVISING FILM OR VIDEOTAPE EDITOR [address] [place], [place] [address] [facility] 03/07/24 Natalia Monge APRN.SUPERVISING FILM OR VIDEOTAPE EDITOR [address] [place] [address] [facility] 03/07/24 Deep Submergence Vehicle Operator Relationship Specialty Start Date End Date Eugenio Peralta MD [address] [place], [place] [address] PCP - General Family Medicine 08/20/22 Lola Farris APRN.SUPERVISING FILM OR VIDEOTAPE EDITOR [address] [place] [address] [facility] 03/07/24 Natalia Monge APRN.SUPERVISING FILM OR VIDEOTAPE EDITOR [address] [place], [place] [address] [facility] 03/07/24 FOR RECORDS PERTAINING TO PATIENTS WHO [...] BE BASED ON THE PRIMARY CLINICAL RECORDS. [employer] [facility]. provides no warranty or guarantee of the accuracy or completeness of information in this document.
--- NOTE | 2024-10-08 04:31 | CON.PCM.CA_ITS ---
Assessment & Plan Assessment/Plan (1) ST elevation myocardial infarction (STEMI) of inferior wall: PLAN: Status post PCI to RCAx2 JACINTA Continue with Aspirin 81 mg daily. Continue with Brilinta 90 mg twice daily. Continue with atorvastatin 40 mg daily. Obtain an echocardiogram. (2) Flash pulmonary edema: PLAN: IV Furosamide 40 mg daily (3) Acute hypoxic respiratory failure: PLAN: Due to pulmonary edema IV lasix (4) Cardiac arrest: PLAN: Vfib cardiac arrest in the setting of RCA stemi status post defbrillatedx2 and 1 round of CPR status post JACINTA to RCA HPI Consult Data Date of Consult: 10/08/24 HPI Narrative HPI Narrative: LUCAS BLANCAS, is a 68 F with PMH of Bilateral varicose veins who presented to the emergency department with a chief complaint of chest pain. She states that for the last few days she has had chest pain and notes that originally she had a procedure on her tooth therefore she stopped taking her acid reflux medication and she thought this was her acid reflux. States that around 3 AM she woke up with severe pain which prompted her to come here for further evaluation management. Her EKG showed inferior ST elevations. PFSH Home Medications ?Medication ?Instructions ?Recorded ?Last Taken ?Type pantoprazole 40 mg tablet,delayed 40 mg PO DAILY 02/26 Unknown History release calcium carbonate 500 mg PO QDAY PRN dyspepsia 01/27/24 Unknown History cholecalciferol (vitamin D3) 10 10 mcg PO QDAY PRN sup plement 01/27/24 Unknown History mcg (400 unit) capsule lisinopril 10 mg tablet 10 mg PO QDAY 04/28/24 Unkno wn History Allergy/AdvReac Type Severity Reaction Status Date / Time No Known Allergies Allergy Verified 10/08/24 03:57 Family History Other CAD (coronary artery disease) COPD (chronic obstructive pulmonary disease) Cancer Diabetes Heart disease Hypertension Myocardial infarction Surgical History H/O section Hx of tubal ligation Social History Smoking Status: Never smoker ROS Review of Systems ROS Unobtainable: due to endotracheal tube Physical Exam HEENT normocephalic Eyes PERRL Resp Auscultation: breath sounds absent bilateral Cardio regular rate Jugular Venous Distention: JVD Back/Spine no CVA tenderness Extremity normal to inspection Skin no rashes or lesions noted Risk Stratification Risk Stratification Applicable: Yes Age >/= 65: Yes >/= 3 CAD Risk Factors (HTN, HLD, DM, family hx of CAD, or current smoker): Yes Aspirin Use in the Past 7 Days: Yes Severe Angina (>/= episodes in 24 hours): Yes EKG ST Changes >/= 0.5mm: Yes Positive Cardiac Marker: Yes BASIM Risk Stratification Score: 6 BASIM % Risk: 41% Risk Objective Data Vital Signs: Vital Signs Temp Pulse Resp BP Pulse Ox O2 Del Method 98.9 F 57 L 18 167/96 H 100 Nasal Cannula 10/08/24 04:18 10/08/24 04:18 10/08/24 04:18 10/08/24 04:18 10/08/24 04:18 10/08/24 04:06 Oxygen Delivery Method Nasal Cannula Weight: 196 lb 10.437 oz Body Mass Index (BMI) 31.7 Lab / Micro Data 10/08/24 03:58 10/08/24 03:58 Labs: Laboratory Results - last 24 hr 10/08/24 03:58: WBC 6.9, RBC 4.41, Hgb 12.9, Hct 40.0, MCV 90.7, MCH 29.3, MCHC 32.3, RDW Std Deviation 45.1 H, RDW Coeff of Linda 13.7, Plt Count 165, MPV 11.3, Immature Gran % (Auto) 0.300, Neut % (Auto) 57.2, Lymph % (Auto) 34.9, [place] % (Auto) 5.9, Eos % (Auto) 1.3, Baso % (Auto) 0.4, Absolute Neuts (auto) 4.0, Absolute Lymphs (auto) 2.41, Nucleated RBC % 0, PT 13.2, INR 1.0, APTT 27.4 Cardiology Labs/Tests 10/08/24 03:58: WBC 6.9, RBC 4.41, Hgb 12.9, Hct 40.0, MCV 90.7, MCH 29.3, MCHC 32.3, Plt Count 165, MPV 11.3, Immature Gran % (Auto) 0.300, Neut % (Auto) 57.2, Lymph % (Auto) 34.9, [place] % (Auto) 5.9, Eos % (Auto) 1.3, Baso % (Auto) 0.4, Absolute Neuts (auto) 4.0, Nucleated RBC % 0, PT 13.2, INR 1.0, APTT 27.4 Rhythm: EKG: ECHO: Stress Test: Cardiac Cath: PCI: CT Surgery: Holter monitor: EPS: PPM: CXR: Chest CT Scan:
[2024-10-08 04:33] LABS: Anion Gap 13 (5-15); BUN 13 mg/dL (4-19); BUN/Creat Ratio 10.9 RATIO (10-20); Calcium,Total 9.2 mg/dL (7.6-11.0); Carbon Dioxide 22.9 mmol/L (21.0-32.0); Chloride 105 mmol/L (98-108); Estimated Creatinine Clearance 50.48 ml/min (50-250); Glucose 154 mg/dL (70-99); Potassium 3.8 mmol/L (3.3-5.1); Troponin T High Sensitivity 48 ng/L (<=14)
--- NOTE | 2024-10-08 04:33 | PCI.CARDCATH ---
PCI Cardiac Cath Report PCI Report: PCI Cardiac Cath Report PCI Report: DATE OF PROCEDURE: October 08, 2024 PROCEDURES PERFORMED: 1. Selective left and right coronary angiography. 2. Moderate conscious sedation 3. Percutaneous coronary intervention IVUS guided to RCA 4. RHC Indications FOR PROCEDURE: Inferior STEMI Complications: NONE Specimen: NONE Access: Right femoral artery and vein Hemostasis: Perclose DESCRIPTION OF PROCEDURE: After informed consent was obtained, the patient was brought down to the labor and delivery nurse.As soon as the patient entered the labor and delivery nurse, she went into vfib arrest requiring defibrillationx2 and requiring intubation and CPR for 1 round before obtaining ROSC. Moderate conscious sedation, administration, documentation and physiologic monitoring of the IV conscious sedation was performed under my direct supervision by a trained registered nurse. Intraservice time started at 5.0 and ended at 6.0 Using modified Seldinger technique, right radial artery was then cannulated. A 6-Kyrgyz sheath was inserted, sheath was flushed. 6FR JR4 guide catheter was used to engage the right coronary and 6f JL-4 catheter was used to engage Left coronary artery. Multiple orthogonal images were then taken. RCA: Using 6 Fr JR4, RCA was wired then 2.5x12 NC and 3.0 NC were used to dilate the lesion then overlapping 3.5x22 Aren stent and 3.5x18 Aren stent were deployed at 12 elizabeth and post dilated using 3.5mm NC and 4.0 mm NC. Final angiogram showed normal flow, no dissection. IVUS was used for stent optimization, rule out dissection BASIM flow pre: 0 BASIM flow post :3 Lesion severity before PCI: 100% Lesion severity after PCI: 0% Then we did RHC which showed: RA: 12mmHg PA: 54/30(36) PCWP: 16 PA sat: 64% HEMODYNAMICS: LVEDP 21 Right femoral sheath was removed and perclose was used for hemostasis. 7fr RFV was used and sutured in place. DESCRIPTION OF CORONARY ANATOMY: The left main originates from the left coronary sinus of Valsalva in the usual fashion. There was good reflux of dye from this vessel into the coronary sinus, there was no ventriculization or dampening of pressure noted. The LM bifurcates into LAD and LCX . It has no significant CAD noted. The left anterior descending artery originates from the left main in the usual fashion. It runs in the anterior interventricular groove giving rise to large size diagonal branch and multiple septal perforators and continues distally to wrap around the apex. It has no significant CAD noted. Left circumflex artery is dominant originates from the bifurcation in the usual fashion, then courses its way down the lateral atrioventricular groove, giving rise to 2 large-sized OM branches. It has no significant CAD noted. RCA originates from the right coronary sinus of Valsalva in the usual fashion, it is dominant There was 100% lesion mid RCA. CONCLUSION: 1. Inferior STEMI status post successful IVUS guided percutaneous coronary intervention to RCA using overlapping 3.5x22 Aren stent and 3.5x18 Aren 2. Elevated bilateral filling pressures Recommendations: Continue with aspirin and Brilinta. Hold off beta-usman until she is out of decompensated heart failure. Start atorvastatin 80 mg daily. IV diuresis Ventilation care per ICU team
--- NOTE | 2024-10-08 05:39 | PCM.HP.STD ---
HPI - General General Date of Admission: 10/08/24 Date of Service: 10/08/24 Chief Complaint: Chest pain HPI Narrative LUCAS BLANCAS, is a 68 F who presented to [facility] ED on 10/08/2024 with chest pain. STEMI alert called on arrival. EKG showed in the inferior leads. Patient reported ongoing chest pain for the past 2 days that she attributed to acid reflux. She woke up this morning around 3 AM with severe chest pain and her brought her to the ED for further evaluation. Patient was taken urgently to the Circular [facility]. Shortly after arrival to the [facility]ular [facility] patient went into pulseless V. tach. She was shocked with 300 J with conversion back to sinus tachycardia. Shortly after was found on pulse ox to have oxygen saturations in the 50s. Decision was made to intubate the patient. Patient had significant secretions that made the intubation difficult. She was successfully intubated by Dr. Crooks with positive breath sounds noted bilaterally and color change noted. Oxygen saturations improved into the low 80s with bagging. She was then placed on the ventilator and saturations improved to the mid to high 80s. Lens Assistant proceeded with cath and 100% mid RCA lesion was found with drug-eluting stent x 1 placed with good result. LAD and left circumflex with no significant CAD noted. Patient was then taken to the ICU for further management. [facility] Home Medications ?Medication ?Instructions ?Recorded ?Last Taken ?Type pantoprazole 40 mg tablet,delayed 40 mg PO DAILY 02/26/19 Unknown History release calcium carbonate 500 mg PO QDAY PRN dyspepsia 01/27/24 Unknown History cholecalciferol (vitamin D3) 10 10 mcg PO QDAY PRN supplement 01/27/24 Unknown History mcg (400 unit) capsule lisinopril 10 mg tablet 10 mg PO QDAY 04/28/24 Unknown History Allergy/AdvReac Type Severity Reaction Status Date / Time No Known Allergies Allergy Verified 10/08/24 03:57 Family History Other CAD (coronary artery disease) COPD (chronic obstructive pulmonary disease) Cancer Diabetes Heart disease Hypertension Myocardial infarction Surgical History H/O section Hx of tubal ligation Social History Smoking Status: Never smoker ROS Review of Systems ROS Unobtainable: due to endotracheal tube Vital Signs Vital Signs Vital Signs: 10/08/24 03:57 10/08/24 04:06 10/08/24 04:18 Temperature 98.1 F 98.9 F Temperature Source Oral Pulse Rate 73 57 L Respiratory Rate 18 18 Blood Pressure 164/106 H 167/96 H Blood Pressure Mean 125 119 Pulse Ox 98 98 100 Oxygen Delivery Method Room Air Nasal Cannula Weight Weight: 89.2 kg Body Mass Index (BMI) 31.7 Physical Exam Const Constitutional Narrative: Intubated and sedated. Not following commands. Class I obesity. HEENT normocephalic and head/scalp atraumatic HEENT Narrative: ET tube in place. Neck supple Resp Resp Narrative: Significant crackles noted bilaterally throughout. No wheezing noted. Cardio no murmurs Cardio Narrative: Tachycardic, regular rhythm. GI normal to inspection, nondistended, normoactive bowel sounds, soft to palpation, non-tender and non-distended Extremity normal to inspection Results Lab / Micro Data 10/08/24 03:58 10/08/24 03:58 Labs: Laboratory Results - last 24 hr 10/08/24 03:58: WBC 6.9, RBC 4.41, Hgb 12.9, Hct 40.0, MCV 90.7, MCH 29.3, MCHC 32.3, RDW Std Deviation 45.1 H, RDW Coeff of Linda 13.7, Plt Count 165, MPV 11.3, Immature Gran % (Auto) 0.300, Neut % (Auto) 57.2, Lymph % (Auto) 34.9, [place] % (Auto) 5.9, Eos % (Auto) 1.3, Baso % (Auto) 0.4, Absolute Neuts (auto) 4.0, Absolute Lymphs (auto) 2.41, Nucleated RBC % 0, PT 13.2, INR 1.0, APTT 27.4, Sodium 141, Potassium 3.8, Chloride 105, Carbon Dioxide 22.9, Anion Gap 13, BUN 13, Creatinine 1.20, Estim Creat Clear Calc 50.48, Est GFR (MDRD) Non-Af 49 L, BUN/Creatinine Ratio 10.9, Glucose 154 H, Calcium 9.2, Troponin T High Sens 48 H Assessment & Plan Assessment/Plan (1) ST elevation myocardial infarction (STEMI) of inferior wall: (2) Cardiac arrest: (3) Acute hypoxic respiratory failure: PLAN: Plan Patient is a 68-year-old female who presented to [facility] ED on 10/08/2024 with chest pain. 1. STEMI with acute hypoxic respiratory failure secondary to acute CHF exacerbation ? Admit under inpatient status to ICU. Cardiology following. [employer] consulted. Presented with chest pain, EKG showed inferior STEMI. Left heart cath with 100% mid RCA lesion with drug-eluting stent x 1 placed with good result. Minimal disease in LAD and left circumflex. Had cardiac arrest as below and acute respiratory failure during left heart cath. Was emergently intubated in the [facility]. High filling pressures noted during cath and patient with copious frothy secretions during intubation consistent with flash pulmonary edema. Stat echo ordered. Will treat with IV Lasix 40 mg twice daily for now. Lipid panel, A1c and TSH ordered. Appreciate further cardiology recommendations. 2. Pulseless V. tach cardiac arrest ? Patient had pulseless V. tach arrest in the [facility]ular [facility]. Cardiac defibrillation with 300 J x 1 done with return to sinus tachycardia. No chest compressions were done. Further management as above. Chronic medical conditions: ? Class I obesity: BMI 31 on admit. Complicates hospital course, care and prognosis. ? GERD: Continue home PPI. ? Lower extremity varicose veins: Continue outpatient follow-up. DVT prophylaxis: Heparin subcu CODE STATUS: Full code, verified Expected disposition: TBD Total clinical time spent by myself addressing the patient's medical issues, reviewing all the data, and collaborating with patient's care team: 75 minutes. Charges/Coding Visit Charges Inpatient E&M: 30910 Init Hosp L3
[2024-10-08 05:54] LABS: SITE Not entered; VBG BASE EXCESS -2 mmol/L (-1.0-3.5); VBG PO2 34 mmHg (25-40); VBG SO2 61 % (50-70); VBG TCO2 25 mmol/L (23-33)
--- OUTSIDE RECORDS SUMMARY | 2024-10-08 05:55 | XMS RPT_ITS | CCD ---
Author Organization [facility] [place] [facility] Care Team Providers Care Debit Agent Name Role Phone EUGENIO PATEL Attending Unavailable [...] Mavis Hughes PA-C Primary Care Provider Brenton ASSOCIATE PROFESSOR OF BIOSTATISTICS.Lola DE LA O Unavailable Jessica ASSOCIATE PROFESSOR OF BIOSTATISTICS.Natalia DE LA O Unavailable EUGENIO PERALTA Primary [...] Attending Unavailable EUGENIO PERALTA Primary Care Unavailable [facility] EUGENIO Hanson Primary Care Unavailable FABIAN, EUGENIO Hanson Primary Care Unavailable TIFFANI GANT Referring Unavailable FABIAN, EUGENIO Hanson Referring Unavailable REJI MORGAN Attending Unavailable FABIAN, EUGENIO Hanson Primary Care Unavailable FABIAN, EUGENIO Hanson Primary Care Unavailable ALFREDA, TIFFANI Attending Unavailable Harrison Cross Attending Unavailable Weems, Eugenio Primary Care Unavailable Weber, Rebecca Referring Unavailable Weber, Rebecca Attending Unavailable Weems, Eugenio Primary Care Unavailable Weber, Rebecca Referring Unavailable José Miguel Lambert Attending Unavailable Weems, Eugenio Primary Care Unavailable Fausto, José Miguel Attending Unavailable Weems, Eugenio Referring Unavailable Weber, Rebecca Attending Unavailable Weems, Eugenio Referring Unavailable Jessica ASSOCIATE PROFESSOR OF BIOSTATISTICS.Natalia DE LA O Unavailable 1( [phone] Allergies Allergy Classification Reported Allergen(s) Allergy Type Date of Onset Reaction(s) Facility (20 sources) POISON AKANKSHA EXTRACT; Translations: [POISON AKANKSHA] Drug Allergy 07-28-2005 [facility] Work Phone: (20 sources) Adhesive Tape-Silicones; Translations: [ADHESIVE TAPE-SILICONES] Propensity to adverse reactions to drug 10-28-2022 Rash [facility] Work Phone: Medications Current Medications Medication Drug [...] Comment on above: Take 1 tablet by [facility] once daily. predniSONE 10 mg oral [...] on above: Take [address] [facility] once daily for 5 days. [...] Comment on above: Take 1 tablet by [facility] every 4 hours as needed. sucralfate [...] for cough. Take [address] [facility] three times a day as [...] Comment on above: [facility] for 10 days. [...] vaginitis] Chronic Other aftercare (1 source) Other intermediate frame tender (current) drug therapy; Translations: [Long-term (current) use of other medications] 10-28-2022 Episodic Other aftercare (1 source) Drug therapy finding; Translations: [Other intermediate frame tender (current) drug therapy] 11-14-2022 Episodic Other and [...] (20 sources) Patient encounter status; Translations: [Other intermediate frame tender (current) drug therapy] Onset: 07-08-2017 07-08-2017 Episodic Other aftercare (19 sources) Long-term current use of drug therapy; Translations: [Other prison (current) drug therapy] Onset: 07-08-2017 07-08-2017 Episodic [...] Interpretation Reference Range Facility MR/Cleo 04-28-2024 MR/ANIKET [facility] Vascular Surgery [address] [place] [address] OFFICE VISIT Date of Service: 04/28/24 MR#: [id number] Acct: [id number] Name: LUCAS ASTUDILLO Rep #: [id number] : 1955 Provider: Dr. José Miguel Lambert MD Age/Sex: 68/F [facility] Status: Signed Intake Vital Signs 10/29/23 21:40 [...] no sens (more content not included)... Normal [facility] [id number] 04-17-2024 [id number] HNO ID: [id number] Author: HARRY FAUSTIN PT Service: ? Author Type: Physical Therapist Type: [id number] Filed: 04/17/2024 16:29 Note Text: [facility] Rehabilitation and Sports Therapy Physical Therapy Plan of Care Certification Patient Name: Lucas Astudillo : 1955 [facility] #: [id number] Date: 01/19/2023 To: Jt Ramachandran DPM From [...] visit and 1 visit for fitting and pickle processor) Planned Treatment Interventions: Orthosis / DME, Patient/Family/Caregiver Education, Self-custodial management (06901) PLAN FOR NEXT VISIT: Fitting and pickle processor of custom foot orthotics Patient demonstrates good understanding of plan of care and treatment. The above goals and plan of care were discussed and agreed upon by patient/family. For further details regarding this patient refer to the Physical Therapy electronically documented visit dated 01/19/2023. Provider Attestation I have reviewed the treatment plan for Lucas Astudillo, CC# [id number] for the period of 01/19/23 -- 02/23/23, established on 01/19/2023. Signature certifies the need for therapy services. Normal [facility] CNOVon 03-14-2024 CNOV Office Visit (FAMPWS ) LUCAS ASTUDILLO ([id number]) 1955 F Date Time Provider Department 03/14/24 11:20 AM EUGENIO [facility] During your visit today, we recorded the [...] to auscultat (more content not included)... Normal [facility] CNOVon 02-22-2024 CNOV Office Visit (FAMPWS ) LUCAS ASTUDILLO ([id number]) 1955 F Date Time Provider Department 02/22/24 11:40 AM LOLA FARRIS [facility] During your visit today, we recorded the following information about you: Pulse Respiration Blood pressure 58/minute 16/minute 158/88 Lola Farris APRN.MEDICAL OFFICE ASSISTANT 02/22/2024 8:43 PM Signed This is a [...] understanding. R (more content not included)... Normal [facility] XR KNEE 4V AP/PA BOTH+LAT/ME [...] fracture. Joint spaces maintained. IMPRESSION: Unremarkable radiograph Vp Information Technology: PSCB Transcribe Date/Time: Feb 26 2024 6:33P Dictated by : MEHNAZ LAI MD This examination was interpreted and the report reviewed and electronically signed by: MEHNAZ LAI MD on Feb 26 2024 6:34PM EST [id number] Normal [facility] Venous Duplex US - Ronni Extre mon 02-11-2024 Venous Duplex US - Ronni Extrem [facility] Cardiovascular Services [address] [place] [address] Venous Duplex US - Ronni Extrem 02/11/24 0901 MR#: [id number] Acct: [id number] Name: LUCAS ASTUDILLO Rep #: [id number] : 1955 68 From: José Miguel Lambert [...] Dictated: 02/11/24 0901 Date Transcribed: 02/15/24 1300 Vp Information Technology: Signed Normal [facility] /Cleo 01-27-2024 /ANIKET [facility] Vascular Surgery [facility] [address] [place] [address] OFFICE VISIT Date of Service: 01/27/24 MR#: [id number] Acct: [id number] Name: LUCAS ASTUDILLO Rep #: [id number] : 1955 Provider: MEGA Hi Age/Sex: 68/F Location: [facility] Status: Signed Intake Vital Signs 10/29/23 21:40 [...] She had prior workup in March at [facility]. Her duplex at that time showed R [...] No confusion (more content not included)... Normal [facility] DBT Breast - bilateral karen nascimento 01-08-2024 [...] Henny Pollack M.D. Electronically signed on: 01/08/2024 Vp Information Technology: MILI Transcribe Date/Time: Jan 07 2024 10:13A Dictated by: HENNY POLLACK MD This examination was interpreted and the report reviewed and electronically signed by: HENNY POLLACK MD on Jan 08 2024 11:25AM [facility] DIVISION OF RADIOLOGY * * *Final Report* * * DATE OF EXAM: Jan 07 2024 10:43AM [facility] 0582 - ELLIOT SCREENING W SAIRA / PROCEDURE REASON: Encounter for screening mammogram for malignant neoplasm of breast * * * * Physician Interpretation * * * * RESULT: [place] [address] [address] [id number] HISTORY: Patient is 68 years old and [...] the prior study. DIVISION OF RADIOLOGY Provider, [facility] - 01/08/2024 * * *Final Report* * * DATE OF EXAM: Jan 07 2024 10:43AM [facility] 0582 - ELLIOT SCREENING W SAIRA / PROCEDURE REASON: Encounter for screening mammogram for malignant neoplasm of breast * * * * Physician Interpretation * * * * RESULT: [facility] [address] [id number] HISTORY: Patient is 68 years old and [...] Henny Pollack M.D. Electronically signed on: 01/08/2024 Vp Information Technology: MILI Carrollribe Date/Time: Jan 07 2024 10:13A Dictated by: HENNY POLLACK MD This examination was interpreted and the report reviewed and electronically signed by: HENNY POLLACK MD on Jan 08 2024 11:25AM EST [facility] DBT Breast - bilateral scree ningOrdered By: Ccf Provider on 01-08-2024 [facility] CNOVon 01-07-2024 CNOV Office Visit (OBGYWM ) LUCAS ASTUDILLO ([id number]) 1955 F Date Time Provider Department 01/07/24 11:30 AM TIFFANI GANT OBBRITT During your visit today, we recorded the following information about you: Respiration Blood pressure Weight Height 16/minute 122/70 86.4 kg 1.677 m Tiffani Gant APRN.CNP 01/07/2024 11:40 AM Signed 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 Lucas is a 68 year old who [...] Comment: 1 section No surgery for ectopic Content Publisher History LMP: 09/17/2008, Postmenopausal Age at Menarche: Age at First : Age at Menopause: Content Publisher History Comments: Sexual Activity: Yes; Male; bilateral [...] cancerous cells in uterus per Sharon Ellis, MEDICAL OFFICE ASSISTANT other (hysterectomy) Sister half-sister; unknown etiology Diabetes [...] discussed with the Patient or Patient's Authorized Brewmaster. As applicable, any other physician, advance practice provider, medical student, or other health professional student that will be observing or involved in the sensitive examination for educational or training purposes was discussed with the Patient or Authorized Brewmaster. The Patient or Authorized Brewmaster has agreed to proceed with the sensitive [...] external genitalia normal, normal Bartholin's glands, urethra, Gatewood's glands, no vulvar lesions, no cervical lesions, good vaginal support, physiologic discharge present, normal appearing perineal body and perianal region BIMANUAL: uterus normal size, shape and consistency, no adnexal masses, and non-tender RECTOVAGINAL: deferred. NEURO: alert and oriented x3,exam grossly non-focal EXTREMITIES: normal ASSESSMENT/PLAN: 1) Health maintenance: Pap done with HPV (more content not included)... Normal [facility] DBT Breast - bilateral scree ningon 01-07-2024 Radiology Study observation (narrative) [facility] HIGH RISK HUMAN PAPILLOMA NAE (HPV), PCR FOR DETECTION AND GENOTYPINGon 01-07-2024 HPV 16 Ag Ql (Unsp spec) Not detected Normal Not detected [facility] Comment on above: Order Comment: Speci men Type: FLUID SPECIMENOrdering Facility: [facility] Address: [address] [place] [address] Performed By: #### H PVHRT, [id number] ####[facility] [id number] [place] [address] [place] HPV 18 Ag Ql (Unsp spec) Not detected Normal Not detected [facility] Comment on above: Order Comment: Speci men Type: FLUID SPECIMENOrdering Facility: [facility] Address: [address] [place] [address] Performed By: #### H PVHRT, [id number] ####[facility] [id number] [place] [address] [place] HPV 31+33+35+39+45+51+5 2+56+58+59+66+68 DNA GUSTAVO+probe Ql (Cvx) Not detected Normal Not detected [facility] Comment on above: Order Comment: Speci men Type: FLUID SPECIMENOrdering Facility: [facility] Address: [address] [place] [address] Result Comment: High Risk HPV Other Type includes HPV types 31, 33, 35, 39, 45, 51, 52, 56, 58, 59, 66 and 68. Performed By: #### H PVHRT, [id number] ####[facility] [id number] [place] [address] [place] ELLIOT SCREENING W TOMOon 01-06 ELLIOT SCREENING W SAIRA * * *Final Report* * * DATE OF EXAM: Jan 07 2024 10:43AM [facility] 0582 - ELLIOT SCREENING W SAIRA / PROCEDURE REASON: Encounter for screening mammogram for malignant neoplasm of breast * * * * Physician Interpretation * * * * RESULT: [place] [address] [place] [address] HISTORY: Patient is 68 years old and [...] Henny Pollack M.D. Electronically signed on: 01/08/2024 Vp Information Technology: MILI Transcribe Date/Time: Jan 07 2024 10:13A Dictated by: HENNY POLLACK MD This examination was interpreted and the report reviewed and electronically signed by: HENNY POLLACK MD on Jan 08 2024 11:25AM EST [id number] Normal [facility] PAP TESTon 01-07-2024 ADEQUACY Normal [facility] Comment on above: Order Comment: Speci men Type: FLUID SPECIMENOrdering Facility: [facility] Address: [address] [place] [address] Result Comment: Sati sfactory for interpretation. No endocervical component Performed By: #### H PVHRViolet, [id number] ####[facility] [id number] [address] STATES OF [facility] CASE REPORT Normal [facility] Comment on above: Order Comment: Speci men Type: FLUID SPECIMENOrdering Facility: [facility] Address: [address] [place] [address] Result Comment: Gyne cologic Cytology Report Case: [id number] Authorizing Provider: Tiffani Gant APRN.MEDICAL OFFICE ASSISTANT Collected: 01/07/2024 11:26 AM Ordering Location: OB/Gynecology Received: 01/07/2024 12:00 PM First Screen: Deeds, Hardy, CT, ASCP Specimen: Pap Test, ThinPrep, Cervix Performed By: #### H PVHRT, [id number] ####[facility] [id number] [place] [address] [place] CLINICAL HISTORY, CYTOLOGY, PSYCHOLOGIST DEVELOPMENTAL Routine Exam Normal [facility] Comment on above: Order Comment: Speci men Type: FLUID SPECIMENOrdering Facility: [facility] Address: [address] [place] [address] Result Comment: Post Menopausal Performed By: #### H PVHRT, [id number] ####[facility] [id number] [place] [address] [place] FINAL PERFORMING LAB Normal [facility] Comment on above: Order Comment: Speci men Type: FLUID SPECIMENOrdering Facility: [facility] Address: [address] [place] [address] Result Comment: Tech nical component, privacy analyst screening performed at [facility], [address] [place], [place] [id number] CLIA# [id number] Diagnostic interpretation performed at [facility], [address] [place] [address] CLIA# [id number] Registration Specialist: Oracio Hilario M.D. Performed By: #### H PVHRT, [id number] ####[facility] [id number] [place] [address] [place] HPV REFLEX Yes HPV Normal [facility] Comment on above: Order Comment: Speci men Type: FLUID SPECIMENOrdering Facility: [facility] Address: [address] [place] [address] Performed By: #### H PVHRT, [id number] ####[facility] [id number] [place] [address] [place] INTERPRETATION, CYTOLOGY, PSYCHOLOGIST DEVELOPMENTAL Normal [facility] Comment on above: Order Comment: Speci men Type: FLUID SPECIMENOrdering Facility: [facility] Address: [address] [place] [address] Result Comment: Nega tive for intraepithelial lesion or malignancy. Performed By: #### H PVHRT, [id number] ####[facility] [id number] [address] [place] PAP DISCLAIMER COMMENT The Pap Smear is a screening test for cervical cancer. False negative results occur with all screening tests, emphasizing the need for rescreening at recommended intervals, and clinical correlation. Normal [facility] Comment on above: Order Comment: Speci men Type: FLUID SPECIMENOrdering Facility: [facility] Address: [address] [place] [address] Performed By: #### H PVHRT, [id number] ####[facility] [id number] [address] [place] PAP PEDIATRICS PHYSICIAN COMMENT This specimen has be en analyzed by the ThinPrep Imaging System, an automated imaging and review system, which assists the laboratory in evaluating cells on ThinPrep Pap tests. Following automated imaging, selected brown from every slide are reviewed by a privacy analyst. Normal [facility] Comment on above: Order Comment: Speci men Type: FLUID SPECIMENOrdering Facility: [facility] Address: [address] [place] [address] Performed By: #### H PVHRT, [id number] ####[facility] [id number] [address] OF [place] CNOVon 12-24-2023 CNOV Office Visit (FAMPWS ) LUCAS ASTUDILLO ([id number]) 1955 F Date Time Provider Department 12/24/23 [...] next visi (more content not included)... Normal [facility] ([id number]) 1955 F Date Time Provider Department 12/22/23 NATALIA MONGE [facility] During your visit today, we recorded [...] shoulder pain [M25.519] 05/04/2023 Encounter Status:Closed by CRSYTAL HENNING on 12/22/23 Normal [facility] CNOVon 12-03-2023 CNOV Office Visit (FAMPWS ) LUCAS ASTUDILLO ([id number]) 1955 F Date Time Provider Department 12/03/23 [...] cells) Sister cancerous cells in uterus per Sharno Ellis CNP other (hysterectomy) Sister half-sister; unknown [...] - ICD (more content not included)... Normal [facility] Elbow min 3 Viewson 10-29-19 Elbow min 3 Views [facility] Imaging Services [address] [place], [place] [address] Elbow min 3 Views MR#: [id number] Acct: [id number] Name: LUCAS ASTUDILLO Rep #: [id number] : 1955 F 68 From: Noam pritchard DO PCP: Dr. Eugenio Peralta MD Status: PRE ER Study: Elbow min 3 Views Date of Exam: 10/29/23 Exam# [id number] Ordering Dr: Harrison Cross DO [id number] EXAM: XR LEFT ELBOW COMPLETE, 3 OR [...] Harrison Cross DO; Dr. Eugenio Peralta MD Vp Information Technology: Signed Normal [facility] Emergency Department Summary on 10-29-2023 Emergency Department Summary [facility] Medical Records Department [address] [place] [address] Emergency Department Summary 10/29/23 MR#: [id number] Acct: [id number] Name: LUCAS ASTUDILLO Rep #: [id number] : 1955 68 From: Harrison Amaya PCP: [...] tissue swelling (more content not included)... Normal [facility] Lumbar Spine 2 or 3 Viewson 10-29-2023 Lumbar Spine 2 or 3 Views [facility] Imaging Services [address] [place], [place] [id number] Lumbar Spine 2 or 3 Views MR#: [id number] Acct: [id number] Name: LUCAS ASTUDILLO Rep #: [id number] : 1955 F 68 From: Noam pritchard DO PCP: Dr. Eugenio Peralta MD Status: PRE ER Study: Lumbar Spine 2 or 3 Views Date of Exam: Exam# [id number] Ordering Dr: Harrison Cross DO [id number] EXAM: XR LUMBOSACRAL SPINE, 2 OR 3 [...] Harrison Cross DO; Dr. Eugenio Peralta MD Vp Information Technology: Signed Normal [facility] Thoracic Spine 3 Viewson Thoracic Spine 3 Views [facility] Imaging Services [address] [place] [address] Thoracic Spine 3 Views MR#: [id number] Acct: [id number] Name: LUCAS ASTUDILLO Rep #: [id number] : 1955 F 68 From: Noam pritchard DO PCP: Dr. Eugenio Peralta MD Status: PRE ER Study: Thoracic Spine 3 Views Date of Exam: 10/29/23 Exam# [id number] Ordering Dr: Harrison Cross DO [id number] EXAM: XR THORACIC SPINE, 3 VIEWS CLINICAL [...] Harrison Cross DO; Dr. Eugenio Peralta MD Vp Information Technology: [facility]igned [facility] Office [facility] (FAMPWS ) LUCAS ASTUDILLO ([id number]) 1955 F Date Time Provider Department 10/26/23 11:00 AM [facility] visit today, we recorded [...] in the medical record. Dr Kovacs, sees PSYCHOLOGIST DEVELOPMENTAL, [facility]. Medical/Family history review Reviewed and [...] No history of dysuria, frequency or incontinence PSYCHOLOGIST DEVELOPMENTAL: Negative for abnormal vaginal bleeding, abnormal vaginal [...] health and behavioral disorders [Z13.39] Order(s):DEPRESSION SCREENING [4478078] Order #: [id number]: 1 ANXIETY SCREENING [5481114] Order #: [id number]: 1 ADVANCE CARE PLAN DISCUSSION [[id number]] Order #: [id number]: 1 Prescriptions as of 10/26/2023 - sucralfate [...] ESOPHAGUS [K22.4] (more content not included)... Normal [facility] CBC W Auto Differential pane l (Bld)on 10-20-2023 Basophils (Bld) [#/Vol] 10*3/uL Normal <0.11 [facility] Comment on above: Order Comment: Speci men Type: BLOOD SPECIMENOrdering Facility: [facility] Address: [address] [place] [address] Performed By: #### 5 7021-8 ####[facility] [id number] [place] [address] [place] Basophils/100 WBC (Bld) 0.2 % Normal [facility] Comment on above: Order Comment: Speci men Type: BLOOD SPECIMENOrdering Facility: [facility] Address: [address] [place] [address] Performed By: #### 5 7021-8 ####[facility] [id number] [place] [address] [place] Differential cell count method Nom (Bld) Auto Normal [facility] Comment on above: Order Comment: Speci men Type: BLOOD SPECIMENOrdering Facility: [facility] Address: [address] [place] [address] Performed By: #### 5 7021-8 ####[facility] [id number] [place] [address] [place] Eosinophils (Bld) [#/Vol] 0.08 10*3/uL Normal <0.46 [facility] Comment on above: Order Comment: Speci men Type: BLOOD SPECIMENOrdering Facility: [facility] Address: [address] [place] [address] Performed By: #### 5 7021-8 ####[facility] [id number] [place] [address] [place] Eosinophils/100 WBC (Bld) 1.8 % Normal [facility] Comment on above: Order Comment: Speci men Type: BLOOD SPECIMENOrdering Facility: [facility] Address: [address] [place] [address] Performed By: #### 5 7021-8 ####[facility] [id number] [place] [address] [place] Erythrocyte distribution width (RBC) [Ratio] 13.9 % Normal 11.5-15.0 [facility] Comment on above: Order Comment: Speci men Type: BLOOD SPECIMENOrdering Facility: [facility] Address: [address] [place] [address] Performed By: #### 5 7021-8 ####[facility] [id number] [place] [address] [place] Hematocrit (Bld) [Volume fraction] 41.5 % Normal 36.0-46.0 [facility] Comment on above: Order Comment: Speci men Type: BLOOD SPECIMENOrdering Facility: [facility] Address: [address] [place] [address] Performed By: #### 5 7021-8 ####[facility] [id number] [place] [address] [place] Hemoglobin (Bld) [Mass/Vol] 13.2 g/dL Normal 11.5-15.5 [facility] Comment on above: Order Comment: Speci men Type: BLOOD SPECIMENOrdering Facility: [facility] Address: [address] [place] [address] Performed By: #### 5 7021-8 ####[facility] [id number] [place] [address] [place] Immature granulocytes (Bld) [#/Vol] 10*3/uL Normal <0.10 [facility] Comment on above: Order Comment: Speci men Type: BLOOD SPECIMENOrdering Facility: [facility] Address: [address] [place] [address] Performed By: #### 5 7021-8 ####[facility] [id number] [place] [address] [place] Immature granulocytes/100 WBC (Bld) 0.2 % Normal [facility] Comment on above: Order Comment: Speci men Type: BLOOD SPECIMENOrdering Facility: [facility] Address: [address] [place] [address] Performed By: #### 5 7021-8 ####[facility] [id number] [place] [address] [place] Lymphocytes (Bld) [#/Vol] 1.43 10*3/uL Normal 1.00-4.00 [facility] Comment on above: Order Comment: Speci men Type: BLOOD SPECIMENOrdering Facility: [facility] Address: [address] [place] [address] Performed By: #### 5 7021-8 ####[facility] [id number] [place] [address] [place] Lymphocytes/100 WBC (Bld) 32.4 % Normal [facility] Comment on above: Order Comment: Speci men Type: BLOOD SPECIMENOrdering Facility: [facility] Address: [address] [place] [address] Performed By: #### 5 7021-8 ####[facility] [id number] [place] [address] [place] MCH (RBC) [Entitic mass] 29.2 pg Normal 26.0-34.0 [facility] Comment on above: Order Comment: Speci men Type: BLOOD SPECIMENOrdering Facility: [facility] Address: [address] [place] [address] Performed By: #### 5 7021-8 ####[facility] [id number] [place] [address] [place] MCHC (RBC) [Mass/Vol] 31.8 g/dL Normal 30.5-36.0 [facility] Comment on above: Order Comment: Speci men Type: BLOOD SPECIMENOrdering Facility: [facility] Address: [address] [place] [address] Performed By: #### 5 7021-8 ####[facility] [id number] [place] [address] [place] MCV (RBC) [Entitic vol] 91.8 fL Normal 80.0-100.0 [facility] Comment on above: Order Comment: Speci men Type: BLOOD SPECIMENOrdering Facility: [facility] Address: [address] [place] [address] Performed By: #### 5 7021-8 ####[facility] [id number] [place] [address] [place] Monocytes (Bld) [#/Vol] 0.26 10*3/uL Normal <0.87 [facility] Comment on above: Order Comment: Speci men Type: BLOOD SPECIMENOrdering Facility: [facility] Address: [address] [place] [address] Performed By: #### 5 7021-8 ####[facility] [id number] [place] [address] [place] Monocytes/100 WBC (Bld) 5.9 % Normal [facility] Comment on above: Order Comment: Speci men Type: BLOOD SPECIMENOrdering Facility: [facility] Address: [address] [place] [address] Performed By: #### 5 7021-8 ####[facility] [id number] [place] [address] [place] Neutrophils (Bld) [#/Vol] 2.63 10*3/uL Normal 1.45-7.50 [facility] Comment on above: Order Comment: Speci men Type: BLOOD SPECIMENOrdering Facility: [facility] Address: [address] [place] [address] Performed By: #### 5 7021-8 ####[facility] [id number] [place] [address] [place] Neutrophils/100 WBC (Bld) 59.5 % Normal [facility] Comment on above: Order Comment: Speci men Type: BLOOD SPECIMENOrdering Facility: [facility] Address: [address] [place] [address] Performed By: #### 5 7021-8 ####[facility] [id number] [place] [address] [place] Nucleated RBC (Bld) [#/Vol] 10*3/uL Normal <0.01 [facility] Comment on above: Order Comment: Speci men Type: BLOOD SPECIMENOrdering Facility: [facility] Address: [address] [place] [address] Performed By: #### 5 7021-8 ####[facility] [id number] [place] [address] [place] Nucleated RBC/100 WBC (Bld) [Ratio] 0.0 /100 WBC Normal [facility] Comment on above: Order Comment: Speci men Type: BLOOD SPECIMENOrdering Facility: [facility] Address: [address] [place] [address] Performed By: #### 5 7021-8 ####[facility] [id number] [place] [address] [place] Platelet mean volume (Bld) [Entitic vol] 11.7 fL Normal 9.0-12.7 [facility] Comment on above: Order Comment: Speci men Type: BLOOD SPECIMENOrdering Facility: [facility] Address: [address] [place], [place] [address] Performed By: #### 5 7021-8 ####[facility] [id number] [address] [address] [place] Platelets (Bld) [#/Vol] 169 10*3/uL Normal 150-400 [facility] Comment on above: Order Comment: Speci men Type: BLOOD SPECIMENOrdering Facility: [facility] Address: [address] [place] [address] Performed By: #### 5 7021-8 ####[facility] [id number] [address] [address] [place] RBC (Bld) [#/Vol] 4.52 10*6/uL Normal 3.90-5.20 [facility] Comment on above: Order Comment: Speci men Type: BLOOD SPECIMENOrdering Facility: [facility] Address: [address] [place] [address] Performed By: #### 5 7021-8 ####[facility] [id number] [place] [address] [place] WBC (Bld) [#/Vol] 4.42 10*3/uL Normal 3.70-11.00 [facility] Comment on above: Order Comment: Speci men Type: BLOOD SPECIMENOrdering Facility: [facility] Address: [address] [place] [address] Performed By: #### 5 7021-8 ####[facility] [id number] [address] [address] [place] Comprehensive metabolic 2000 panelon 10-20-2023 Albumin [Mass/Vol] 4.1 g/dL Normal 3.9-4.9 [facility] Comment on above: Order Comment: Speci men Type: BLOOD SPECIMENOrdering Facility: [facility] Address: [address] [place] [address] Performed By: #### 2 4331-1, 60820-1 ####[facility] [id number] [place] [id number] [place] ALP [Catalytic activity/Vol] 74 U/L Normal 34-123 [facility] Comment on above: Order Comment: Speci men Type: BLOOD SPECIMENOrdering Facility: [facility] Address: [address] [place] [address] Performed By: #### 2 4331-1, 16140-7 ####[facility] [id number] [place] [address] [place] ALT [Catalytic activity/Vol] 14 U/L Normal 7-38 [facility] Comment on above: Order Comment: Speci men Type: BLOOD SPECIMENOrdering Facility: [facility] Address: [address] [place] [address] Performed By: #### 2 4331-1, 30017-1 ####[facility] [id number] [place] [address] [place] Anion gap [Moles/Vol] 10 mmol/L Normal 8-15 [facility] Comment on above: Order Comment: Speci men Type: BLOOD SPECIMENOrdering Facility: [facility] Address: [address] [place] [address] Performed By: #### 2 4331-1, 00627-7 ####[facility] [id number] [place] [address] [place] AST [Catalytic activity/Vol] 18 U/L Normal 13-35 [facility] Comment on above: Order Comment: Speci men Type: BLOOD SPECIMENOrdering Facility: [facility] Address: [address] [place] [address] Performed By: #### 2 4331-1, 12650-7 ####[facility] [id number] [place] [address] [place] Bilirubin [Mass/Vol] 0.4 mg/dL Normal 0.2-1.3 [facility] Comment on above: Order Comment: Speci men Type: BLOOD SPECIMENOrdering Facility: [facility] Address: [address] [place] [address] Performed By: #### 2 4331-1, ####[facility] [id number] [place] [address] [place] Calcium [Mass/Vol] 9.4 mg/dL Normal 8.5-10.2 [facility] Comment on above: Order Comment: Speci men Type: BLOOD SPECIMENOrdering Facility: [facility] Address: [address] [place] [address] Performed By: #### 2 4331-1, ####[facility] [id number] [place] [address] [place] Chloride [Moles/Vol] 107 mmol/L Normal 98-107 [facility] Comment on above: Order Comment: Speci men Type: BLOOD SPECIMENOrdering Facility: [facility] Address: [address] [place] [address] Performed By: #### 2 4331-1, ####[facility] [id number] [place] [address] [place] CO2 [Moles/Vol] 25 mmol/L Normal 22-30 [facility] Comment on above: Order Comment: Speci men Type: BLOOD SPECIMENOrdering Facility: [facility] Address: [address] [place] [id number] Performed By: #### 2 4331-1, ####[facility] [id number] [place] [address] [place] Creatinine [Mass/Vol] 1.01 mg/dL High 0.58-0.96 [facility] Comment on above: Order Comment: Speci men Type: BLOOD SPECIMENOrdering Facility: [facility] Address: [address] [place], [place] [address] Performed By: #### 2 4331-1, 93476-8 ####[facility] [id number] [place] [address] [place] Creatinine and Glomerular filtration rate.predicted panel (S/P/Bld) 61 mL/min/1.73m??? Normal >=60 [facility] Comment on above: Order Comment: Jose R zuniga Type: BLOOD SPECIMENOrdering Facility: [facility] Address: [address] [place] [address] Result Comment: Debra mated Glomerular Filtration Rate [...] actual GFR. Performed By: #### 2 4331-1, 27623-9 ####[facility] [id number] [place] [address] [place] Glucose [Mass/Vol] 87 mg/dL Normal 74-99 [facility] Comment on above: Order Comment: Jose R zuniga Type: BLOOD SPECIMENOrdering Facility: [facility] Address: [address] [place] [address] Result Comment: The [place] [employer] (ADA) provides guidance for cutoff [...] Standards of Medical Care in Diabetes 2016, [place] [employer]. Diabetes Care. 2016.39(Suppl 1). Performed By: #### 2 4331-, ####[facility] [id number] [address] [address] [place] Potassium [Moles/Vol] 4.4 mmol/L Normal 3.7-5.1 [facility] Comment on above: Order Comment: Speci men Type: BLOOD SPECIMENOrdering Facility: [facility] Address: [address] [place] [address] Performed By: #### 2 4331-, ####[facility] [id number] [place] [address] [place] Protein [Mass/Vol] 7.2 g/dL Normal 6.3-8.0 [facility] Comment on above: Order Comment: Speci men Type: BLOOD SPECIMENOrdering Facility: [facility] Address: [address] [place] [address] Performed By: #### 2 43303-30, ####[facility] [id number] [place] [address] [place] Sodium [Moles/Vol] 142 mmol/L Normal 136-144 [facility] Comment on above: Order Comment: Speci men Type: BLOOD SPECIMENOrdering Facility: [facility] Address: [address] [place] [address] Performed By: #### 2 4331-, ####[facility] [id number] [place] [id number] [place] Urea nitrogen [Mass/Vol] 19 mg/dL Normal 7-21 [facility] Comment on above: Order Comment: Speci men Type: BLOOD SPECIMENOrdering Facility: [facility] Address: [address] [place] [address] Performed By: #### 2 4331-1, ####[facility] [id number] [place] [id number] [place] Lipid 1996 panelon 07-23-202 4 Cholesterol [Mass/Vol] 136 mg/dL Normal <200 [facility] Comment on above: Order Comment: Speci men Type: BLOOD SPECIMENOrdering Facility: [facility] Address: [address] [place] [address] Result Comment: <200 mg/dL, Desirable 200-239 mg/dL, Borderline high >239 mg/dL, High Performed By: #### 2 4331-1, 37400-4 ####[facility] [id number] [address] STATES [facility] Cholesterol in HDL [Mass/Vol] 37 mg/dL Low >39 [facility] Comment on above: Order Comment: Speci men Type: BLOOD SPECIMENOrdering Facility: [facility] Address: [address] [place] [address] Result Comment: 40-5 9 mg/dL, Acceptable >59 mg/dL, High: Negative risk factor for coronary heart disease <40 mg/dL, Low: Positive risk factor for coronary heart disease Performed By: #### 2 4331-1, 04518-1 ####[facility] [id number] [address] STATES [facility] Cholesterol in LDL [Mass/Vol] 73 mg/dL Normal <100 [facility] Comment on above: Order Comment: Speci men Type: BLOOD SPECIMENOrdering Facility: [facility] Address: [address] [place] [address] Result Comment: <100 mg/dL, Optimal 100-129 mg/dL, Near optimal/above optimal 130-159 mg/dL, Borderline high 160-189 mg/dL, High >189 mg/dL, Very high Secondary prevention optimal LDL Cholesterol levels are recommended to be < 70 mg/dL Performed By: #### 2 4331-1, 65177-7 ####[facility] [id number] [facility] [place] [id number] [place] Cholesterol in LDL/Cholesterol in HDL [Mass ratio] 1.97 {ratio} Normal <2.54 [facility] Comment on above: Order Comment: Jose R zuniga Type: BLOOD SPECIMENOrdering Facility: [facility] Address: [address] [place] [address] Result Comment: Rick alexander: 1. National Cholesterol Education Program ATP III Guideline At-A-Glance Quick Desk Reference: National Heart, Lung, and Blood [place]. National Institutes of Health. 2001: NIH Publication No. 01-3305. 2. An International Atherosclerosis Society position paper: global recommendations for the management of dyslipidemia: executive summary, Atherosclerosis. 2014: 232(2):410-413. Performed By: #### 2 4331-1, ####[facility] [id number] [place] [address] [place] Cholesterol in VLDL [Mass/Vol] 26 mg/dL Normal <30 [facility] Comment on above: Order Comment: Jose R zuniga Type: BLOOD SPECIMENOrdering Facility: [facility] Address: [address] [place] [address] Performed By: #### 2 4331-, ####[facility] [id number] [place] [address] [place] Cholesterol non HDL [Mass/Vol] 99 mg/dL Normal <130 [facility] Comment on above: Order Comment: Jose R zuniga Type: BLOOD SPECIMENOrdering Facility: [facility] Address: [address] [place] [address] Result Comment: <130 mg/dL, Optimal 130-159 mg/dL, Near optimal/above optimal 160-189 mg/dL, Borderline high 190-219 mg/dL, High >219 mg/dL, Very high Secondary prevention optimal non HDL Cholesterol levels are recommended to be <100 mg/dL Performed By: #### 2 4331-1, 83863-1 ####[facility] [id number] [place] [address] [place] Cholesterol.total/C holesterol in HDL [Mass ratio] 3.68 {ratio} Normal <5.10 [facility] Comment on above: Order Comment: Speci men Type: BLOOD SPECIMENOrdering Facility: [facility] Address: [address] [place] [address] Performed By: #### 2 4331-1, 50016-7 ####[facility] [id number] [place] [address] [place] FASTING TIME 14 hrs Normal [facility] Comment on above: Order Comment: Speci men Type: BLOOD SPECIMENOrdering Facility: [facility] Address: [address] [place] [address] Performed By: #### 2 4331-1, ####[facility] [id number] [place] [address] [place] Triglyceride [Mass/Vol] 130 mg/dL Normal <150 [facility] Comment on above: Order Comment: Speci men Type: BLOOD SPECIMENOrdering Facility: [facility] Address: [address] [place] [address] Result Comment: <150 mg/dL, Normal 150-199 mg/dL, Borderline high 200-499 mg/dL, High >499 mg/dL, Very high Performed By: #### 2 4331-1, 57939-4 ####[facility] [id number] [place] [address] [place] CNOVon 08-01-2023 CNOV Office Visit ([facility] ) LUCAS ASTUDILLO ([id number]) 1955 F Date Time Provider Department 08/01/23 10:45 AM ENMANUEL WONG [facility] During your visit today, we recorded [...] Carpal Tunn (more content not included)... Normal [facility] CNOVon 05-26-2023 CNOV Office Visit ([facility] ) LUCAS ASTUDILLO ([id number]) 1955 F Date Time Provider Department 05/26/23 2:30 PM LEXY KOVACS [facility] During your visit today, we recorded the following information about you: Pulse Blood pressure 64/minute 125/76 Lexy Kovacs, 05/26/2023 3:08 PM Signed [facility] [place] DEPARTMENT OF VASCULAR SURGERY OUTPATIENT VISIT DATE [...] NAME: Lucas (more content not included)... Normal [facility] CNTHERAPYon 05-04-2023 CNTHERAPY OT/PT/Speech Visit ( [facility]) LUCAS ASTUDILLO ([id number]) 1955 F Date Time Provider Department 05/04/23 3:45 PM REJI MORGAN [facility] Date Time Provider Department [place] 05/04/2023 3:45 PM [id number], COLIN PTWS Cristin Shaw Reason for Visit: [...] UNIT TAB) Take one(1) tablet twice daily. Customer Quality Engineer: Therapy (PT/OT/Speech/Resp) ID: [id number] 05/04/2023 3:16 PM Author: REJI MORGAN Signed by REJI MORGAN PT on 05/04/2023 at 3:16 PM Document text: Program_ID:[id number] Access Code: [email or web address] URL: [email or web address] Date: 05-04-2023 Prepared By: Reji Morgan Program [...] 2-3 sets - reps Therapy (PT/OT/Speech/Resp) ID: [id number] 05/04/2023 3:13 PM Author: REJI MORGAN Signed by REJI MORGAN PT on 05/04/2023 at 3:13 PM Document text: Program_ID:[id number] Access Code: [email or web address] URL: [email or web address] Date: 05-04-2023 Prepared By: Reji Morgan Program [...] - 2 sets - 10 reps Normal [facility] THERAPY NTon 05-04-2023 THERAPY NT HNO ID: [id number] Author: REJI MORGAN, PT Service: ? Author Type: Physical Therapist Type: Therapy (PT/OT/Speech/Resp) Filed: 05/04/2023 15:16 Note Text: Program_ID:[id number] Access Code: [email or web address] URL: [email or web address] Date: 05-04-2023 Prepared By: Reji Morgan Program [...] weekly - 2-3 sets - reps Normal [facility] THERAPY NT HNO ID: [id number] Author: REJI MORGAN, PT Service: ? Author Type: Physical Therapist Type: Therapy (PT/OT/Speech/Resp) Filed: 05/04/2023 15:13 Note Text: Program_ID:[id number] Access Code: [email or web address] URL: [email or web address] Date: 05-04-2023 Prepared By: Reji Morgan Program [...] - 2 sets - 10 reps Normal [facility] CNOVon 04-21-2023 CNOV Office Visit ([facility] ) LUCAS ASTUDILLO ([id number]) 1955 F Date Time Provider Department 04/21/23 3:00 PM [facility] During your visit today, we recorded the [...] arm with trying to reach overhead, negative Durham's, negative Martinez, negative lift off. Tender trigger [...] - TIZANID (more content not included)... Normal [facility] XR Chest PA and Lateralon IMPRESSION: No acute radiographic abnormality. Vp Information Technology: TARAN Transcribe Date/Time: Mar 31 2023 12:59P Dictated by : JESUSITA RODRIGUEZ MD This examination was interpreted and the report reviewed and electronically signed by: JESUSITA RODRIGUEZ MD on Mar 31 2023 12:59PM [facility] DIVISION OF RADIOLOGY * * *Final Report* [...] spine. DIVISION OF RADIOLOGY Provider, Alison Gracia [facility] - 03/31/2023 * * *Final Report* [...] spine. IMPRESSION IMPRESSION: No acute radiographic abnormality. Vp Information Technology: PSCB Transcribe Date/Time: Mar 31 2023 12:59P Dictated by : JESUSITA RODRIGUEZ MD This examination was interpreted and the report reviewed and electronically signed by: JESUSITA RODRIGUEZ MD on Mar 31 2023 12:59PM EST [facility] Radiology Study observation (narrative) [facility] XR Chest PA and LateralOrder ed By: Ccf Provider on 03-31-2023 [facility] ELLIOT SCREENING W TOMOon 01-05 [facility] XR Foot - bilateral AP and L ateral and obliqueon 12-18-2022 IMPRESSION: No acute osseous abnormality [employer]p Information Technology: PSCB Transcribe Date/Time: Dec 18 2022 7:42A [...] plantar calcaneal spur. DIVISION OF RADIOLOGY Provider, [facility] Gracia [facility] - 12/18/2022 * * *Final Report* [...] spur. IMPRESSION IMPRESSION: No acute osseous abnormality Vp Information Technology: TARAN Transcribe Date/Time: Dec 18 2022 7:42A Dictated by : ESTRELLA PINEDA MD This examination was interpreted and the report reviewed and electronically signed by: ESTRELLA PINEDA MD on Dec 18 2022 7:47AM EST [facility] XR Foot - bilateral AP and L ateral and obliqueOrdered By: Ccf Provider on 12-18-2022 [facility] XR Foot - bilateral AP and L ateral and obliqueon 12-16-2022 Radiology Study observation (narrative) [facility] DXA-AXIAL SKELETONon 023 LOWEST T-SCORE -2.0 [facility] US SCREENING FOR AAAon 12-03 [facility] XR Lumbar spine 3 Viewson IMPRESSION: DEGENERATIVE CHANGE AND ALIGNMENT ABNORMALITIES DESCRIBED. Vp Information Technology: PSC Transcribe Date/Time: Nov 17 2022 2:21P Dictated by : JEN COLINDRES MD This examination was interpreted and the report reviewed and electronically signed by: JEN COLINDRES MD on Nov 17 2022 2:23PM [facility] DIVISION OF RADIOLOGY * * *Final Report* [...] IMPRESSION: DEGENERATIVE CHANGE AND ALIGNMENT ABNORMALITIES DESCRIBED. Vp Information Technology: PSCB Transcribe Date/Time: Nov 17 2022 2:21P Dictated by : JEN COLINDRES MD This examination was interpreted and the report reviewed and electronically signed by: JEN COLINDRES MD on Nov 17 2022 2:23PM EST [facility] XR Lumbar spine 3 ViewsOrder ed By: Ccf Provider on 11-17-2022 [facility] XR Lumbar spine 3 Viewson Radiology Study observation (narrative) [facility] STREP A MOLECULAR (POC)on Procedural Control Valid [facility] Strep A (POCT) Negative Negative [facility] SURGICAL PATHOLOGYon 023 Case Report Surgical Pathology R eport Case: [id number] Authorizing Provider: Eriberto Disla MD Collected: 10/20/2022 09:07 AM Ordering Location: Ambulatory Surgery Received: 10/20/2022 01:38 PM Pathologist: Chanelle Felix MD Specimens: A) - DUODENUM BIOPSY B) - ANTRUM (STOMACH) BIOPSY, Antral for H/H C) - ESOPHAGUS BIOPSY, distal esophagus bx D) - ESOPHAGUS MID BIOPSY [facility] FINAL DIAGNOSIS A. Duodenum, biopsy: -Duodenal mucosa [...] significant histologic abnormality -Negative for intraepithelial eosinophils [facility] Gross Description A. DUODENUM BIOPSY Received in [...] in one cassette. [facility] [facility], [address] [place] [id number] JT 10/21/2022 2:19 AM [facility] Performing Lab Diagnostic interpret ation performed at [facility], [address] [place], [place] [id number] CLIA# [id number] Registration Specialist: Oracio Hilario M.D. [facility] XR Hand - right PA and Later al and Obliqueon 10-21-2022 IMPRESSION: No radiographic evidence of acute osseous abnormality [employer]: [facility] Transcribe Date/Time: Oct 21 2022 1:32P Dictated by : YOUNG CHAO MD This examination was interpreted and the report reviewed and electronically signed by: YOUNG CHAO MD on Oct 21 2022 1:34PM [facility] DIVISION OF RADIOLOGY * * *Final Report* [...] radiopaque foreign body. DIVISION OF RADIOLOGY Provider, [facility] - 10/21/2022 * * *Final Report* * [...] No radiographic evidence of acute osseous abnormality [employer]: [facility] Transcribe Date/Time: Oct 21 2022 1:32P Dictated by : YOUNG CHAO MD This examination was interpreted and the report reviewed and electronically signed by: YOUNG CHAO MD on Oct 21 2022 1:34PM EST [facility] Radiology Study observation (narrative) [facility] XR Hand - right PA and Later al and ObliqueOrdered By: Ccf Provider on 10-21-2022 [facility] EGD DIAGNOSTICon 10-20-2022 [facility] XR CHEST 2V FRONTAL/LATon [facility] XR Chest PA and Lateralon IMPRESSION: No acute radiographic abnormality. [employer]: [facility] Transcribe Date/Time: Feb [...] soft tissues: Unremarkable. DIVISION OF RADIOLOGY Provider, [facility] - 02/17/2022 * * *Final Report* * [...] Unremarkable. IMPRESSION IMPRESSION: No acute radiographic abnormality. [employer]: [facility] Transcribe Date/Time: Feb 17 2022 10:30A Dictated by : JEN COLINDRES MD This examination was interpreted and the report reviewed and electronically signed by: JEN COLINDRES MD on Feb 17 2022 10:31AM [facility] Radiology Study observation (narrative) [facility] XR Chest PA and LateralOrder ed By: Ccf Provider on 02-17-2022 [facility] STREP A MOLECULAR (POC)on Procedural Control Valid [facility] Strep A (POCT) Negative Negative [facility] Vital Signs Date Time Vital Sign Value Performing Clinician Facility 03-14-2024 11:14-0500 Body mass index (BMI) [Ratio] 31.08 kg/m2 Eugenio Peralta MD Work Phone: [facility] 03-14-2024 11:14-0500 Body weight 87.4 kg Eugenio Peralta MD Work Phone: [facility] 03-14-2024 11:14-0500 Diastolic blood pressure 72 mm[Hg] Eugenio Peralta MD Work Phone: [facility] 03-14-2024 11:14-0500 Heart rate 64 /min Eugenio Peralta MD Work Phone: [facility] 03-14-2024 11:14-0500 SaO2% (BldA) [Mass fraction] 97 % Eugenio Peralta MD Work Phone: [facility] 03-14-2024 11:14-0500 Systolic blood pressure 122 mm[Hg] Eugenio Peralta MD Work Phone: [facility] 02-22-2024 11:45-0500 Diastolic blood pressure 88 mm[Hg] Lola Farris ASSOCIATE PROFESSOR OF BIOSTATISTICS.MEDICAL OFFICE ASSISTANT Work Phone: [facility] Comment on above: BALA BP 02-22-2024 11:45-0500 Heart rate 58 /min Lola Farris ASSOCIATE PROFESSOR OF BIOSTATISTICS.MEDICAL OFFICE ASSISTANT Work Phone: [facility] 02-22-2024 11:45-0500 Systolic blood pressure 158 mm[Hg] Lola Farris ASSOCIATE PROFESSOR OF BIOSTATISTICS.MEDICAL OFFICE ASSISTANT Work Phone: [facility] Comment on above: BALA BP 02-22-2024 11:36-0500 Respiratory rate 16 /min Lola Farris ASSOCIATE PROFESSOR OF BIOSTATISTICS.MEDICAL OFFICE ASSISTANT Work Phone: [facility] 02-22-2024 11:36-0500 SaO2% (BldA) [Mass fraction] 98 % Lola Farris ASSOCIATE PROFESSOR OF BIOSTATISTICS.MEDICAL OFFICE ASSISTANT Work Phone: [facility] 01-07-2024 10:49-0400 Body height 167.7 cm Tiffani Alfreda ASSOCIATE PROFESSOR OF BIOSTATISTICS.MEDICAL OFFICE ASSISTANT Work Phone: [facility] 01-07-2024 10:49-0400 Body mass index (BMI) [Ratio] 30.71 kg/m2 Tiffani Hamburg ASSOCIATE PROFESSOR OF BIOSTATISTICS.MEDICAL OFFICE ASSISTANT Work Phone: [facility] 01-07-2024 10:49-0400 Body weight 86.36 kg Tiffani Hamburg ASSOCIATE PROFESSOR OF BIOSTATISTICS.MEDICAL OFFICE ASSISTANT Work Phone: [facility] 01-07-2024 10:49-0400 Diastolic blood pressure 70 mm[Hg] Tiffani Hamburg ASSOCIATE PROFESSOR OF BIOSTATISTICS.MEDICAL OFFICE ASSISTANT Work Phone: [facility] 01-07-2024 10:49-0400 Respiratory rate 16 /min Tiffani Alfreda ASSOCIATE PROFESSOR OF BIOSTATISTICS.MEDICAL OFFICE ASSISTANT Work Phone: [facility] 01-07-2024 10:49-0400 Systolic blood pressure 122 mm[Hg] Tiffani Alfreda ASSOCIATE PROFESSOR OF BIOSTATISTICS.MEDICAL OFFICE ASSISTANT Work Phone: [facility] 12-24-2023 14:19-0400 Diastolic blood pressure 80 mm[Hg] Natalia Suppan ASSOCIATE PROFESSOR OF BIOSTATISTICS.MEDICAL OFFICE ASSISTANT Work Phone: [facility] 12-24-2023 14:19-0400 Systolic blood pressure 120 mm[Hg] Natalia Suppan ASSOCIATE PROFESSOR OF BIOSTATISTICS.MEDICAL OFFICE ASSISTANT Work Phone: [facility] 12-24-2023 14:07-0400 Body mass index (BMI) [Ratio] 31.63 kg/m2 Natalia Suppan ASSOCIATE PROFESSOR OF BIOSTATISTICS.MEDICAL OFFICE ASSISTANT Work Phone: [facility] 12-24-2023 14:07-0400 Body weight 88.9 kg Natalia Suppan ASSOCIATE PROFESSOR OF BIOSTATISTICS.MEDICAL OFFICE ASSISTANT Work Phone: [facility] 12-24-2023 14:07-0400 Heart rate 68 /min Natalia Suppan ASSOCIATE PROFESSOR OF BIOSTATISTICS.MEDICAL OFFICE ASSISTANT Work Phone: [facility] 12-24-2023 14:07-0400 Respiratory rate 16 /min Natalia Suppan ASSOCIATE PROFESSOR OF BIOSTATISTICS.MEDICAL OFFICE ASSISTANT Work Phone: [facility] 12-24-2023 14:07-0400 SaO2% (BldA) [Mass fraction] 98 % Natalia Troyshay MIKEMEDICAL OFFICE ASSISTANT Work Phone: [facility] 12-03-2023 09:27-0400 Body mass index (BMI) [Ratio] 31.15 kg/m2 Mayra Lan PA-C Work Phone: [facility] 12-03-2023 09:27-0400 Body temperature 97.7 [degF] Mayra Lan PA-C Work Phone: [facility] 12-03-2023 09:27-0400 Body weight 87.54 kg Mayra Lan PA-C Work Phone: [facility] 12-03-2023 09:27-0400 Diastolic blood pressure 86 mm[Hg] Mayra Lan PA-C Work Phone: [facility] 12-03-2023 09:27-0400 Heart rate 64 /min Mayra Lan PA-C Work Phone: [facility] 12-03-2023 09:27-0400 Respiratory rate 16 /min Mayra Lan PA-C Work Phone: [facility] 12-03-2023 09:27-0400 SaO2% (BldA) [Mass fraction] 97 % Mayra Lan PA-C Work Phone: [facility] 12-03-2023 09:27-0400 Systolic blood pressure 136 mm[Hg] Mayra Lan PA-C Work Phone: [facility] 10-26-2023 11:20-0400 Diastolic blood pressure 88 mm[Hg] Eugenio Peralta MD Work Phone: [facility] 10-26-2023 11:20-0400 Systolic blood pressure 136 mm[Hg] Eugenio Peralta MD Work Phone: [facility] 10-26-2023 10:38-0400 Body height 167.6 cm Eugenio Peralta MD Work Phone: [facility] 10-26-2023 10:38-0400 Body mass index (BMI) [Ratio] 31.47 kg/m2 Eugenio Peralta MD Work Phone: [facility] 10-26-2023 10:38-0400 Body weight 88.45 kg Eugenio Peralta MD Work Phone: [facility] 10-26-2023 10:38-0400 Heart rate 63 /min Eugenio Peralta MD Work Phone: [facility] 10-26-2023 10:38-0400 SaO2% (BldA) [Mass fraction] 98 % Eugenio Peralta MD Work Phone: [facility] 08-01-2023 10:40-0400 Body mass index (BMI) [Ratio] 31.46 kg/m2 Enmanuel Wong MD Work Phone: [facility] 08-01-2023 10:40-0400 Body temperature 98.1 [degF] Enmanuel Wong MD Work Phone: [facility] 08-01-2023 10:40-0400 Body weight 88.4 kg Enmanuel Wong MD Work Phone: [facility] 08-01-2023 10:40-0400 Diastolic blood pressure 79 mm[Hg] Enmanuel Wong MD Work Phone: [facility] 08-01-2023 10:40-0400 Heart rate 62 /min Enmanuel Wong MD Work Phone: [facility] 08-01-2023 10:40-0400 Respiratory rate 18 /min Enmanuel Wong MD Work Phone: [facility] 08-01-2023 10:40-0400 SaO2% (BldA) [Mass fraction] 99 % Enmanuel Wong MD Work Phone: [facility] 08-01-2023 10:40-0400 Systolic blood pressure 162 mm[Hg] Enmanuel Wong MD Work Phone: [facility] 05-26-2023 14:16-0500 Diastolic blood pressure 76 mm[Hg] Lexy Kovacs DO Work Phone: [facility] 05-26-2023 14:16-0500 Heart rate 64 /min Lexy Kovacs DO Work Phone: [facility] 05-26-2023 14:16-0500 SaO2% (BldA) [Mass fraction] 96 % Lexy Kovacs DO Work Phone: [facility] 05-26-2023 14:16-0500 Systolic blood pressure 125 mm[Hg] Lexy Kovacs DO Work Phone: [facility] 02-17-2023 08:46-0500 Diastolic blood pressure 77 mm[Hg] Lexy Kovacs DO Work Phone: [facility] 02-17-2023 08:46-0500 Heart rate 61 /min Lexy Kovacs DO Work Phone: [facility] 02-17-2023 08:46-0500 SaO2% (BldA) [Mass fraction] 96 % Lexy Kovacs DO Work Phone: [facility] 02-17-2023 08:46-0500 Systolic blood pressure 128 mm[Hg] Lexy Kovacs DO Work Phone: [facility] 11-14-2022 10:03-0400 Body weight 87.54 kg NA Hughes PA-C Work Phone: [facility] 11-14-2022 10:03-0400 Diastolic blood pressure 70 mm[Hg] NA Hughes PA-C Work Phone: [facility] 11-14-2022 10:03-0400 Heart rate 67 /min NA Hughes PA-C Work Phone: [facility] 11-14-2022 10:03-0400 Respiratory rate 16 /min NA Hughes PA-C Work Phone: [facility] 11-14-2022 10:03-0400 SaO2% (BldA) [Mass fraction] 97 % NA Hughes PA-C Work Phone: [facility] 11-14-2022 10:03-0400 Systolic blood pressure 120 mm[Hg] PALMER Tuckeron PA-C Work Phone: [facility] 11-01-2022 10:08-0400 Body temperature 98.29 [degF] Johanne Tom ASSOCIATE PROFESSOR OF BIOSTATISTICS.MEDICAL OFFICE ASSISTANT Work Phone: [facility] 11-01-2022 10:08-0400 Body weight 87.73 kg Johanne Tom ASSOCIATE PROFESSOR OF BIOSTATISTICS.MEDICAL OFFICE ASSISTANT Work Phone: [facility] 11-01-2022 10:08-0400 Diastolic blood pressure 80 mm[Hg] Johanne Tom ASSOCIATE PROFESSOR OF BIOSTATISTICS.MEDICAL OFFICE ASSISTANT Work Phone: [facility] 11-01-2022 10:08-0400 Heart rate 57 /min Johanne Tom ASSOCIATE PROFESSOR OF BIOSTATISTICS.MEDICAL OFFICE ASSISTANT Work Phone: [facility] 11-01-2022 10:08-0400 Respiratory rate 21 /min Johanne Tom ASSOCIATE PROFESSOR OF BIOSTATISTICS.MEDICAL OFFICE ASSISTANT Work Phone: [facility] 11-01-2022 10:08-0400 SaO2% (BldA) [Mass fraction] 98 % Johanne Fishmank ASSOCIATE PROFESSOR OF BIOSTATISTICS.MEDICAL OFFICE ASSISTANT Work Phone: [facility] 11-01-2022 10:08-0400 Systolic blood pressure 132 mm[Hg] Johanne Tom ASSOCIATE PROFESSOR OF BIOSTATISTICS.MEDICAL OFFICE ASSISTANT Work Phone: [facility] 10-28-2022 10:32-0400 Body temperature 97.9 [degF] Crystal Basile PA-C Work Phone: [facility] 10-28-2022 10:32-0400 Diastolic blood pressure 88 mm[Hg] Crystal Zeina PA-C Work Phone: [facility] 10-28-2022 10:32-0400 Heart rate 68 /min Crystal Zeina PA-C Work Phone: [facility] 10-28-2022 10:32-0400 SaO2% (BldA) [Mass fraction] 97 % Crystal Basile PA-C Work Phone: [facility] 10-28-2022 10:32-0400 Systolic blood pressure 122 mm[Hg] Crystal Zeina PA-C Work Phone: [facility] 10-20-2022 09:45-0400 Diastolic blood pressure 86 mm[Hg] Eriberto Disla MD Work Phone: [facility] 10-20-2022 09:45-0400 Heart rate 57 /min Eriberto Disla MD Work Phone: [facility] 10-20-2022 09:45-0400 Respiratory rate 16 /min Eriberto Disla MD Work Phone: [facility] 10-20-2022 09:45-0400 SaO2% (BldA) [Mass fraction] 96 % Eriberto Disla MD Work Phone: [facility] 10-20-2022 09:45-0400 Systolic blood pressure 158 mm[Hg] Eriberto Disla MD Work Phone: [facility] 10-20-2022 07:59-0400 Body temperature 97.81 [degF] Eriberto Disla MD Work Phone: [facility] 07-22-2022 13:16-0400 Body height 167.6 cm Crystal Zeina PA-C Work Phone: [facility] 07-22-2022 13:16-0400 Body temperature 96.21 [degF] Crystal Basile PA-C Work Phone: [facility] 07-22-2022 13:16-0400 Body weight 91.54 kg Crystal Zeina PA-C Work Phone: [facility] 07-22-2022 13:16-0400 Diastolic blood pressure 88 mm[Hg] Crystal Basile PA-C Work Phone: [facility] 07-22-2022 13:16-0400 Heart rate 82 /min Crystal Basile PA-C Work Phone: [facility] 07-22-2022 13:16-0400 SaO2% (BldA) [Mass fraction] 100 % Crystal Zeina PA-C Work Phone: [facility] 07-22-2022 13:16-0400 Systolic blood pressure 120 mm[Hg] Crystal Pastrana PA-C Work Phone: [facility] 02-17-2022 09:27-0500 Diastolic blood pressure 98 mm[Hg] Lola Leiagen ASSOCIATE PROFESSOR OF BIOSTATISTICS.MEDICAL OFFICE ASSISTANT Work Phone: [facility] 02-17-2022 09:27-0500 Systolic blood pressure 150 mm[Hg] Lola Farris ASSOCIATE PROFESSOR OF BIOSTATISTICS.MEDICAL OFFICE ASSISTANT Work Phone: [facility] 02-17-2022 08:56-0500 Body temperature 99.81 [degF] Lola Farris ASSOCIATE PROFESSOR OF BIOSTATISTICS.MEDICAL OFFICE ASSISTANT Work Phone: [facility] 02-17-2022 08:56-0500 Body weight 89.63 kg Lola Farris ASSOCIATE PROFESSOR OF BIOSTATISTICS.MEDICAL OFFICE ASSISTANT Work Phone: [facility] 02-17-2022 08:56-0500 Heart rate 77 /min Lola Farris ASSOCIATE PROFESSOR OF BIOSTATISTICS.MEDICAL OFFICE ASSISTANT Work Phone: [facility] 02-17-2022 08:56-0500 Respiratory rate 16 /min Lola Farris ASSOCIATE PROFESSOR OF BIOSTATISTICS.MEDICAL OFFICE ASSISTANT Work Phone: [facility] 02-17-2022 08:56-0500 SaO2% (BldA) [Mass fraction] 97 % Lola Farris ASSOCIATE PROFESSOR OF BIOSTATISTICS.MEDICAL OFFICE ASSISTANT Work Phone: [facility] 02-13-2022 09:55-0500 Body temperature 98.49 [degF] Alberto Le ASSOCIATE PROFESSOR OF BIOSTATISTICS.MEDICAL OFFICE ASSISTANT Work Phone: [facility] 02-13-2022 09:55-0500 Body weight 91.54 kg Alberto Le ASSOCIATE PROFESSOR OF BIOSTATISTICS.MEDICAL OFFICE ASSISTANT Work Phone: [facility] 02-13-2022 09:55-0500 Diastolic blood pressure 92 mm[Hg] Alberto Le ASSOCIATE PROFESSOR OF BIOSTATISTICS.MEDICAL OFFICE ASSISTANT Work Phone: [facility] 02-13-2022 09:55-0500 Heart rate 71 /min Alberto Le ASSOCIATE PROFESSOR OF BIOSTATISTICS.MEDICAL OFFICE ASSISTANT Work Phone: [facility] 02-13-2022 09:55-0500 Respiratory rate 20 /min Alberto Le ASSOCIATE PROFESSOR OF BIOSTATISTICS.MEDICAL OFFICE ASSISTANT Work Phone: [facility] 02-13-2022 09:55-0500 SaO2% (BldA) [Mass fraction] 95 % Alberto Rey ASSOCIATE PROFESSOR OF BIOSTATISTICS.MEDICAL OFFICE ASSISTANT Work Phone: [facility] 02-13-2022 09:55-0500 Systolic blood pressure 142 mm[Hg] Alberto Le ASSOCIATE PROFESSOR OF BIOSTATISTICS.MEDICAL OFFICE ASSISTANT Work Phone: [facility] 01-02-2022 14:29-0400 Body height 168.9 cm Tiffani Alfreda ASSOCIATE PROFESSOR OF BIOSTATISTICS.MEDICAL OFFICE ASSISTANT Work Phone: [facility] 01-02-2022 14:29-0400 Body weight 90.72 kg Tiffani Hamburg ASSOCIATE PROFESSOR OF BIOSTATISTICS.MEDICAL OFFICE ASSISTANT Work Phone: [facility] 01-02-2022 14:29-0400 Diastolic blood pressure 60 mm[Hg] Tiffani Hamburg ASSOCIATE PROFESSOR OF BIOSTATISTICS.MEDICAL OFFICE ASSISTANT Work Phone: [facility] 01-02-2022 14:29-0400 Systolic blood pressure 120 mm[Hg] Tiffani Alfreda ASSOCIATE PROFESSOR OF BIOSTATISTICS.MEDICAL OFFICE ASSISTANT Work Phone: [facility] 12-17-2021 16:03-0400 Diastolic blood pressure 79 mm[Hg] Mi Nurse Work Phone: [facility] 12-17-2021 16:03-0400 Heart rate 59 /min Mi Nurse Work Phone: [facility] 12-17-2021 16:03-0400 Systolic blood pressure 137 mm[Hg] Mi Nurse Work Phone: [facility] Encounters Encounter Date Encounter Type Care Provider Facility Start: 08-27-2024 End: 08-29-2024 Refill Eugenio Peralta MD Work Phone: [facility] Comment on above: Refill Request Start: 04-28-2024 End: 04-28-2024 ambulatory [facility] Facility:[facility] Start: 03-14-2024 End: 03-14-2024 ambulatory EUGENIO PERALTA Facility:[facility] Start: 03-14-2024 End: 03-14-2024 Patient encounter procedure Eugenio Peralta MD Work Phone: [facility] Comment on above: Primary hypertension (Primary Dx) Start: 02-22-2024 End: 02-22-2024 ambulatory EUGENIO Hanson FABIAN Facility:[facility] Start: 02-22-2024 End: 02-22-2024 Subsequent hospital visit by physician Lou [facility] Cristin Work Phone: Radiology Comment on above: Acute pain of right knee [M25.561] Start: 02-22-2024 End: 02-22-2024 Office outpatient visit 25 minutes Lola Farris APRN.CNP Work Phone: [facility] Comment on above: Primary hypertension (Primary Dx); Acute pain of right knee Start: 02-22-2024 End: 02-22-2024 ambulatory [facility] Facility:[facility] Start: 02-11-2024 ambulatory [facility] Facility:[facility] Start: 02-11-2024 End: 02-11-2024 ambulatory [facility] Facility:[facility] Start: 01-27-2024 End: 01-27-2024 ambulatory [facility] Facility:[facility] Start: 01-08-2024 End: 01-11-2024 [facility] Get Medical Advice Tiffani Gant APRN.MEDICAL OFFICE ASSISTANT Work Phone: OB/Gynecology Comment on above: Med order to [facility] Start: 01-07-2024 End: 01-07-2024 Patient encounter procedure Tiffani Gant APRN.MEDICAL OFFICE ASSISTANT Work Phone: OB/Gynecology Comment on above: Encounter for gyneco logical examination (general) (routine) without abnormal findings (Primary Dx); Encounter for screening mammogram for breast cancer; Postmenopausal atrophic vaginitis; Screening for malignant neoplasm of cervix; Encounter for screening for human papillomavirus (HPV) Start: 01-07-2024 End: 01-07-2024 Patient encounter status Tiffani Gant APRN.MEDICAL OFFICE ASSISTANT Work Phone: [facility] Start: 01-07-2024 End: 01-07-2024 ambulatory EUGENIO PERALTA Facility:[facility] Start: 01-07-2024 End: 01-07-2024 Subsequent hospital visit by physician Screen Mammo [facility] Comment on above: Encounter for screen ing mammogram for malignant neoplasm of breast [Z12.31] Start: 12-30-2023 End: 12-30-2023 ambulatory [facility] Cristin Work Phone: [facility] Cristin Start: 12-30-2023 End: 12-30-2023 Patient encounter procedure [facility] Start: 12-24-2023 End: 12-24-2023 Office outpatient visit 15 minutes Natalia Monge APRN.MEDICAL OFFICE ASSISTANT Work Phone: [facility] Comment on above: Sinus congestion (Pr imary Dx); Elevated blood pressure reading without diagnosis of hypertension Start: 12-24-2023 End: 12-24-2023 ambulatory NATALIA MONGE Facility:[facility] Start: 12-22-2023 End: 12-22-2023 Telephone encounter Natalia Monge ASSOCIATE PROFESSOR OF BIOSTATISTICS.MEDICAL OFFICE ASSISTANT Work Phone: [facility] Comment on above: Appointment; Patient Update Start: 12-14-2023 End: 12-14-2023 Refill M Ko Hughes PA-C Work Phone: [facility] Comment on above: Refill Request Start: 12-03-2023 End: 12-03-2023 ambulatory MAYRA LAN Facility:[facility] Start: 12-03-2023 End: 12-03-2023 Patient encounter procedure Mayra Lan PA-C Work Phone: [facility] Comment on above: Contact dermatitis, unspecified contact dermatitis type, unspecified trigger (Primary Dx) Start: 11-25-2023 End: 11-25-2023 ambulatory Eugenio Peralta MD Work Phone: [facility] Comment on above: RSV vaccination Start: 10-29-2023 End: 10-30-2023 Emergency department patient visit Harrison Cross Facility:[facility] Start: 10-26-2023 End: 10-26-2023 Patient encounter procedure Eugenio Peralta MD Work Phone: [facility] Comment on above: Mixed hyperlipidemia (Primary Dx); Chronic kidney disease, stage 3a (HCC); Screening for depression; Encounter for screening examination for other mental health and behavioral disorders Start: 10-26-2023 End: 10-26-2023 ambulatory EUGENIO Valentin FABIAN Facility:[facility] Start: 10-20-2023 End: 10-20-2023 ambulatory [facility] Facility:[facility] Start: 08-26-2023 ambulatory Tiffanimariia TovarHamburgfrancesca SALMON Work Phone: OB/Gynecology Comment on above: Mammogram Start: 08-01-2023 End: 08-01-2023 [facility] Start: 08-01-2023 End: 08-01-2023 Patient encounter procedure Enmanuel Wong MD Work Phone: [facility] Comment on above: Rib pain on left shanita e (Primary Dx) Start: 06-13-2023 ambulatory Eugenio Peralta MD Work Phone: [facility] Comment on above: Sucralfate Start: 05-26-2023 End: 05-26-2023 ambulatory LEXY KOVACS Facility:[facility] Start: 05-26-2023 End: 05-26-2023 Patient encounter procedure Lexy Kovacs DO Work Phone: Vascular Surgery Comment on above: Symptomatic varicose veins of both lower extremities (Primary Dx) Start: 05-04-2023 End: 05-04-2023 ambulatory EUGENIO PERALTA Facility:[facility] Start: 04-21-2023 End: 04-21-2023 ambulatory MEHNAZ HUGHES Facility:[facility] Start: 03-31-2023 End: 03-31-2023 Subsequent hospital visit by physician Lou [facility] Cristin Work Phone: Radiology Comment on above: URI, acute [J06.9] Start: 02-23-2023 ambulatory Harry Golias P T Work Phone: [facility] Comment on above: Orthotics Start: 02-17-2023 End: 02-17-2023 Patient encounter procedure Lexy Kovacs DO Work Phone: Vascular Surgery Comment on above: Symptomatic varicose veins of both lower extremities Start: 02-10-2023 End: 02-10-2023 ambulatory Reji Sylvia PT Work Phone: [facility] Comment on above: Arthritis of right s acroiliac joint (Primary Dx) Start: 02-04-2023 End: 02-04-2023 ambulatory Harry Golias PT Work Phone: [facility] Comment on above: Plantar fasciitis (P rimary Dx); Flat feet, bilateral Start: 01-27-2023 End: 01-27-2023 ambulatory Reji Sylvia PT Work Phone: [facility] Comment on above: Arthritis of right s acroiliac joint (Primary Dx) Start: 01-19-2023 End: 01-19-2023 ambulatory Harry Golias PT Work Phone: [facility] Comment on above: Plantar fasciitis; Flat feet, bilateral Start: 01-13-2023 End: 01-13-2023 ambulatory Reji Sylvia PT Work Phone: [facility] Comment on above: Arthritis of right s acroiliac joint (Primary Dx) Start: 01-10-2023 End: 01-10-2023 ambulatory Immunization Clinic Nurse Cristin Work Phone: [facility] [place] Start: 01-06-2023 Documentation procedure Mammog deven Coordinator [facility] Start: 01-06-2023 Letter encounter Mammography Coordinator [facility] Department Start: 01-06-2023 Telephone encounter Eugenio Peralta MD Work Phone: [facility] Comment on above: Consult Start: 01-05-2023 End: 01-05-2023 Subsequent hospital visit by physician Screen Mammo [facility] Mammogram Comment on above: Encounter for screen ing mammogram for malignant neoplasm of breast [Z12.31] Start: 12-18-2022 End: 12-18-2022 Patient encounter procedure Jt Duarte Work Phone: Podiatry Comment on above: Plantar fasciitis (P rimary Dx); Pes planus of both feet Start: 12-16-2022 End: 12-16-2022 ambulatory Reji Sylvia PT Work Phone: [facility] Comment on above: Arthritis of right s acroiliac joint (Primary Dx) Start: 12-16-2022 End: 12-16-2022 Subsequent hospital visit by physician Xr [facility] Cristin Work Phone: Radiology Comment on above: Pain [R52] Start: 12-12-2022 End: 12-12-2022 ambulatory Reji Sylvia PT Work Phone: [facility] Comment on above: Arthritis of right s acroiliac joint (Primary Dx) Start: 12-04-2022 End: 12-04-2022 ambulatory Reji Sylvia PT Work Phone: [facility] Comment on above: Arthritis of right s acroiliac joint (Primary Dx) Start: 12-03-2022 ambulatory Mavis Tucker on PA-C Work Phone: [facility] [place] Comment on above: AAA Screening Start: 12-03-2022 End: 12-03-2022 Subsequent hospital visit by physician Bone Density [facility] Work Phone: Radiology Comment on above: Asymptomatic postmen opausal state [Z78.0] Start: 12-03-2022 End: 12-03-2022 Subsequent hospital visit by physician Us [facility] Mob 2 Work Phone: Radiology Comment on above: Pulsatile abdomen [R 19.8] Start: 11-26-2022 Orders Only Jt Khanra nolan Work Phone: Appointment Center Comment on above: Pain (Primary Dx) Start: 11-24-2022 ambulatory No Pcp ASSOCIATE PROFESSOR OF BIOSTATISTICS Shani donahue [place] Start: 11-19-2022 Telephone encounter Eugenio Peralta MD Work Phone: [facility] [place] Comment on above: Orders Start: 11-14-2022 End: 11-14-2022 Subsequent hospital visit by physician Lou [facility] Crist[place] Work Phone: Radiology Comment on above: Arthritis of right s acroiliac joint [M47.818] Start: 11-14-2022 End: 11-14-2022 Patient encounter procedure Mavis Hughes PA-C Work Phone: [facility] [place] Comment on above: Essential hypertensi on [...] D level; Chronic kidney disease, stage 3a ([facility]); Medicare annual wellness visit, subsequent; Wellness examination Start: 11-14-2022 End: 11-14-2022 Patient encounter status Mavis Ko Hughes PA-C Work Phone: [facility] Work Phone: Start: 11-01-2022 End: 11-01-2022 Patient [...] 10-21-2022 Subsequent hospital visit by physician Lou [facility] [place] Work Phone: Radiology Comment on above: [...] Telephone encounter Mavis Hughes PA-C Work Phone: [facility] [place] Comment on above: Referral Request Start: 05-26-2022 Telephone encounter Tiffani carter ASSOCIATE PROFESSOR OF BIOSTATISTICS.MEDICAL OFFICE ASSISTANT Work Phone: OB/Gynecology Comment on above: Orders Start: 05-12-2022 Telephone encounter Mavis Ko Hughes PA-C Work Phone: [facility] [place] Comment on above: Patient Question Start: 05-12-2022 End: 05-12-2022 Nursing evaluation of patient and report Mi Nurse Work Phone: [facility] [place] Comment on above: Need for vaccination (Primary Dx) Start: 02-17-2022 End: 02-17-2022 Subsequent hospital visit by physician Lou [facility] Crist[place] Work Phone: Radiology Comment on above: Sinobronchitis [J32. 9, J40] Start: 02-17-2022 End: 02-17-2022 Office outpatient visit 15 minutes Lola Farris APRN.MEDICAL OFFICE ASSISTANT Work Phone: [facility] [place] Comment on above: Sinobronchitis (Prim alisia Dx) Start: 02-13-2022 End: 02-13-2022 Patient encounter procedure Alberto Le APRN.MEDICAL OFFICE ASSISTANT Work Phone: [facility] Comment on above: URI, acute (Primary Dx); Sore throat Start: 01-27-2022 Refill Mavis AYOUB-C Work Phone: [facility] [place] Comment on above: Refill Request Start: 01-03-2022 Documentation procedure Mammog deven Coordinator [facility] Start: 01-03-2022 Letter encounter Mammography Coordinator [facility] Department Start: 01-02-2022 End: 01-02-2022 Subsequent hospital visit by physician Screen Mammo [facility] Mammogram Comment on above: Encounter for screen ing mammogram for malignant neoplasm of breast [Z12.31] Start: 01-02-2022 End: 01-02-2022 Patient encounter procedure Tiffani Gant APRN.MEDICAL OFFICE ASSISTANT Work Phone: OB/Gynecology Comment on above: Encounter for gyneco logical examination (general) (routine) without abnormal findings (Primary Dx); Encounter for screening mammogram for breast cancer; Postmenopausal atrophic vaginitis; Lichen sclerosus Start: 01-02-2022 End: 01-02-2022 Patient encounter status Tiffani Gant APRN.MEDICAL OFFICE ASSISTANT Work Phone: OB/Gynecology Start: 12-17-2021 End: 12-17-2021 Nursing evaluation of patient and report Mi Nurse Work Phone: [facility] [place] Comment on above: Essential hypertensi on (Primary Dx) Start: 12-10-2021 Telephone encounter Sharon bundy APRN.MEDICAL OFFICE ASSISTANT Work Phone: OB/Gynecology Comment on above: Orders Start: 11-18-2021 ambulatory M Ko Tucker on PA-C Work Phone: [facility] [place] Comment on above: Tetanus Booster Start: 11-15-2021 End: 11-15-2021 Nursing evaluation of patient and report Mi Nurse Work Phone: [facility] [place] Comment on above: Need for vaccination (Primary Dx) Start: 11-01-2021 End: 11-01-2021 Patient encounter procedure Eugenio Peralta MD Work Phone: [facility] [place] Comment on above: Need for COVID-19 va ccine (Primary Dx) Start: 05-16-2020 End: 05-16-2020 Patient encounter procedure EUGENIO PATEL [facility] Start: 04-20-2020 End: 04-20-2020 Patient encounter procedure EUGENIO Bundy [facility] Procedures Date Procedure Procedure Detail Performing Clinician Start: 01-07-2024 Screening digital breast tomosynthesis bi Tiffani Corralf ASSOCIATE PROFESSOR OF BIOSTATISTICS.MEDICAL OFFICE ASSISTANT Work Phone: Start: 12-30-2023 PFIZER-BIONTECH COVID-19 VACCINE AGE 12+ YR (COMIRNATY) Eugenio Peralta MD Work Phone: Start: 10-26-2023 Adult depression screening assessment Eugenio Peralta MD Work Phone: Start: 10-20-2023 Lipid 1996 panel - Serum or Plasma Rosas Peralta MD Work Phone: Start: 03-31-2023 Radiologic exam chest 2 views Daisy howard ASSOCIATE PROFESSOR OF BIOSTATISTICS.MEDICAL OFFICE ASSISTANT Work Phone: Start: 01-10-2023 PFIZER-BIONTECH COVID-19 VACCINE (2022- SEASON) AGE 12+ YR Mehnaz Wong MD Work Phone: Start: 01-10-2023 INFLUENZA VACCINE, PRSV FREE, AGE 65+ YR, HIGH DOSE, QUADRIVALENT (FLUZONE HIGH-DOSE) Mehnaz Wong MD Work Phone: Start: 01-05-2023 Screening digital breast tomosynthesis bi Tiffani Corralf ASSOCIATE PROFESSOR OF BIOSTATISTICS.MEDICAL OFFICE ASSISTANT Work Phone: Start: 12-16-2022 Radex foot complete [...] 11-01-2022 STREP A MOLECULAR (POC) Johanne Santos ASSOCIATE PROFESSOR OF BIOSTATISTICS. MEDICAL OFFICE ASSISTANT Work Phone: Start: 10-21-2022 Radex hand minimum 3 views Aury Hylton Work Phone: Start: 10-20-2022 Level iv surg pathology gross&microscopic exam Eriberto Disla MD Work Phone: Start: 10-20-2022 Esophagogastroduodenoscopy transoral diagnostic Crystal Pastrana PA-C Work Phone: Start: 05-12-2022 PFIZER-BIONTECH COVID-19 BIVALENT BOOSTER VACCINE, AGE 12+ YR M Ko Hughes PA-C Work Phone: Start: 02-17-2022 Radiologic exam chest 2 views Lola barry APRN.MEDICAL OFFICE ASSISTANT Work Phone: Start: 02-13-2022 STREP A MOLECULAR [...] Author Start: 10-19-2028 Lipid panel Lipid Screening [facility] Start: 10-06-2028 Urine microalbumin profile [facility] Start: 11-16-2027 Lipid 1996 panel - Serum or Plasma Lipid Screening [facility] Start: 11-16-2027 Lipid panel Lipid Screening [facility] Start: 11-16-2027 LIPID SCREEN LIPID SCREEN [facility] Start: 10-06-2027 Colonoscopy COLONOSCOPY [facility] Start: 10-06-2027 COLORECTAL CANCER SCREENING COLORECTAL CANCER SCREENING [facility] Start: 10-06-2027 Screening for malign ant neoplasm of colon [facility] Start: 11-13-2026 LIPID SCREEN LIPID SCREEN [facility] Start: 10-19-2026 Diabetes Screening Diabetes Screenin g [facility] Start: 11-15-2025 DIABETES SCREEN DIABETES SCREEN [facility] Start: 11-15-2025 Diabetes Screening Diabetes Screenin g [facility] Start: 03-14-2025 Annual PCP Team Radiologist rocco Disease Visit Annual PCP Team Chronic Disease Visit [facility] Start: 03-14-2025 BP Controlled (<130/80) BP Controlle d (<130/80) [facility] Start: 02-21-2025 Annual PCP Team Radiologist rocco Disease Visit Annual PCP Team Chronic Disease Visit [facility] Start: 01-12-2025 LIPID SCREEN LIPID SCREEN [facility] Start: 01-09-2025 End: 01-09-2025 Patient encounter procedure 01/09/2025 11:30 AM EDT Office Visit OB/Gynecology [address] [place] [address] Tiffani Gant APRN.MEDICAL OFFICE ASSISTANT [address] [place] [address] Annual OB/Gynecology Comment on above: Annual Start: 01-09-2025 End: 01-09-2025 Patient encounter procedure Mammogram Comment on above: Encounter for gyneco logical examination (general) (routine) without abnormal findings [Z01.419]; Encounter for screening mammogram for breast cancer [Z12.31] Annual Start: 01-06-2025 Screening for malign ant neoplasm of breast Mammogram Screening [facility] Start: 12-02-2024 Annual PCP Team Radiologist rocco Disease Visit Annual PCP Team Chronic Disease Visit [facility] Start: 11-13-2024 DIABETES SCREEN DIABETES SCREEN [facility] Start: 10-26-2024 End: 10-26-2024 Patient encounter procedure 10/26/2024 10:40 AM EDT Office Visit Family [facility] [place] [address] [place] [address] Eugenio Peralta MD [address] [place] [address] physical Family Medicine [place] Comment on above: physical Start: 10-25-2024 Annual PCP Team Radiologist rocco Disease Visit Annual PCP Team Chronic Disease Visit [facility] Start: 10-25-2024 Anxiety Screening Anxiety Screening [facility] Start: 10-25-2024 Covid-19 Vaccine () Covid-19 Vaccine () [facility] Comment on above: Postponed from 05/13 (Declined at this time) Start: 10-25-2024 Depression Screening Depression Scre ening [facility] Start: 10-25-2024 RSV Vaccine (1 - 1-d ose 60+ series) RSV Vaccine (1 - 1-dose 60+ series) [facility] Comment on above: Postponed from 10/11 (Declined at this time) Start: 10-19-2024 Creatinine measurement Serum Creatin ine [facility] Start: 06-29-2024 Covid-19 Vaccine () Covid-19 Vaccine () [facility] Start: 04-21-2024 Annual PCP Team Radiologist rocco Disease Visit Annual PCP Team Chronic Disease Visit [facility] Start: 03-30-2024 Advance Directive Discussion Advance Directive Discussion [facility] Start: 03-21-2024 End: 03-21-2024 Patient encounter procedure 03/21/2024 10:00 AM EST Office Visit Family Medicine [place] [address] [place] [address] Lola Farris APRN.MEDICAL OFFICE ASSISTANT [address] [facility] [place] [address] 1 month BP check Family Medicine [place] Comment on above: 1 month BP check Start: 01-07-2024 End: 01-07-2024 Patient encounter procedure Mammogram Comment on above: Encounter for screen ing mammogram for malignant neoplasm of breast [Z12.31] annual Start: 01-06-2024 Mammography Mammogram Screening [facility] Start: 01-06-2024 Screening for malign ant neoplasm of breast Mammogram Screening [facility] Start: 12-30-2023 End: 12-30-2023 Patient encounter procedure 12/30/2023 1:40 PM EDT Immunization Family Medicine [place] [address], [place] [id number] [place], Immunization Clinic Nurse [address] [place], [place] [id number] Want Covid & flu vaccinations [facility] [place] Comment on above: Want Covid & flu vac cinations Start: 12-29-2023 Covid-19 Vaccine ( season) Covid-19 Vaccine () [facility] Comment on above: Postponed from 11/28 (Currently Scheduled) Start: 12-29-2023 Influenza vaccination Influenza Vacc ine (#1) [facility] Comment on above: Postponed from 11/28 (Currently Scheduled) Start: 12-24-2023 End: 12-24-2023 Patient encounter procedure 12/24/2023 2:00 PM EDT Office Visit [facility] [address], [place] [id number] Natalia Monge, ASSOCIATE PROFESSOR OF BIOSTATISTICS.MEDICAL OFFICE ASSISTANT [address] [place], [place] [id number] BP check, and check Pts BP cuff. See TE 12/22/23. [facility] Comment on above: BP check, and check Pts BP cuff. See TE 12/22/23. Start: 11-29-2023 Covid-19 Vaccine ( season) Covid-19 Vaccine ( season) [facility] Start: 11-29-2023 Covid-19 Vaccine ( season) Covid-19 Vaccine ( season) [facility] Start: 11-29-2023 Influenza vaccination Influenza Vacc ine (#1) [facility] Start: 11-16-2023 Creatinine measurement Serum Creatin ine [facility] Start: 11-16-2023 SERUM CREATININE SERUM CREATININE Cl [facility] Start: 11-15-2023 ANNUAL PCP TEAM CONTROL SPECIALIST ROCCO DISEASE VISIT ANNUAL PCP TEAM CHRONIC DISEASE VISIT [facility] Start: 11-15-2023 COVID-19 VACCINE (6 - Pfizer series) COVID-19 VACCINE (6 - Pfizer series) [facility] Comment on above: Postponed from 09/09 (Declined at this time) Start: 10-26-2023 End: 10-26-2023 Patient encounter procedure 10/26/2023 11:00 AM EDT Office Visit Family Medicine [place] [address] [place] [address] Eugenio Peralta MD [address] [place] [address] well visit Family Medicine [place] Comment on above: well visit Start: 07-27-2023 DIABETES SCREEN DIABETES SCREEN [facility] Start: 05-13-2023 Covid-19 Vaccine () Covid-19 Vaccine () [facility] Start: 03-30-2023 Advance Directive Discussion Advance Directive Discussion [facility] Start: 03-30-2023 Behavioral Health Screening Behavioral Health Screening [facility] Start: 03-30-2023 Depression Assessment Depression Ass essment [facility] Start: 02-17-2023 COVID-19 VACCINE (5 - Booster for Pfizer series) COVID-19 VACCINE (5 - Booster for Pfizer series) [facility] Comment on above: Postponed from 12/27 (Declined at this time) Start: 01-02-2023 Mammography [facility] Start: 11-28-2022 Covid-19 Vaccine () Covid-19 Vaccine () [facility] Start: 11-28-2022 Influenza vaccination [facility] Start: 11-14-2022 End: 01-14-2023 25-hydroxyvitamin D3 [Mass/volume] in Serum or Plasma VITAMIN D 25 HYDROXY Lab Routine Low vitamin D level Expected: 11/14/2022, Expires: 01/14/2023 [facility] Work Phone: Comment on above: Expected: 11/14/2022 , Expires: 01/14/2023 Start: 11-14-2022 End: 01-14-2023 CBC W Auto Differential panel - Blood CBC + DIFF Lab Routine Essential hypertension Expected: 11/14/2022, Expires: 01/14/2023 [facility] Work Phone: Comment on above: Expected: 11/14/2022 , Expires: 01/14/2023 Start: 11-14-2022 End: 01-14-2023 Comprehensive metabolic 2000 panel - Serum or Plasma COMP METABOLIC PANEL Lab Routine Essential hypertension Expected: 11/14/2022, Expires: 01/14/2023 [facility] Work Phone: Comment on above: Expected: 11/14/2022 , Expires: 01/14/2023 Start: 11-14-2022 End: 01-14-2023 Lipid 1996 panel - Serum or Plasma LIPID PANEL BASIC Lab Routine Low HDL (under 40) Expected: 11/14/2022, Expires: 01/14/2023 [facility] Work Phone: Comment on above: Expected: 11/14/2022 , Expires: 01/14/2023 Start: 11-14-2022 End: 01-14-2023 Magnesium [Mass/volume] in Serum or Plasma MAGNESIUM BLD Lab Routine Current use of proton pump inhibitor Expected: 11/14/2022, Expires: 01/14/2023 [facility] Work Phone: Comment on above: Expected: 11/14/2022 , Expires: 01/14/2023 Start: 11-13-2022 HEMOGLOBIN/HEMATOCRIT HEMOGLOBIN/HEM ATOCRIT [facility] Start: 11-13-2022 SERUM CREATININE SERUM CREATININE Cl [facility] Start: 11-12-2022 Adult depression screening assessment DEPRESSION SCREENING [facility] Start: 11-12-2022 ANNUAL PCP TEAM CONTROL SPECIALIST ROCCO DISEASE VISIT ANNUAL PCP TEAM CHRONIC DISEASE VISIT [facility] Start: 11-01-2022 ANNUAL PCP TEAM CONTROL SPECIALIST ROCCO DISEASE VISIT ANNUAL PCP TEAM CHRONIC DISEASE VISIT [facility] Start: 09-09-2022 COVID-19 VACCINE (6 - Pfizer series) COVID-19 VACCINE (6 - Pfizer series) [facility] Start: 03-30-2022 ADVANCE DIRECTIVE DISCUSSION ADVANCE DIRECTIVE DISCUSSION [facility] Start: 03-30-2022 DEPRESSION ASSESSMENT DEPRESSION ASS ESSMENT [facility] Start: 12-27-2021 COVID-19 VACCINE (5 - Booster for Pfizer series) COVID-19 VACCINE (5 - Booster for Pfizer series) [facility] Start: 11-28-2021 Influenza vaccination INFLUENZA (#1) [facility] Start: 11-16-2021 Mammography MAMMOGRAM [facility] Start: 11-12-2021 PNEUMOCOCCAL: 65+ (2 - PCV) PNEUMOCOCCAL: 65+ (2 - PCV) [facility] Start: 07-24-2021 Adult depression screening assessment DEPRESSION SCREENING [facility] Start: 03-30-2021 ADVANCE DIRECTIVE DISCUSSION ADVANCE DIRECTIVE DISCUSSION [facility] Start: 03-30-2021 DEPRESSION ASSESSMENT DEPRESSION ASS ESSMENT [facility] Start: 01-12-2021 HEMOGLOBIN/HEMATOCRIT HEMOGLOBIN/HEM ATOCRIT [facility] Start: 01-12-2021 SERUM CREATININE SERUM CREATININE Cl [facility] Start: 10-08-2016 FECAL OCCULT BLOOD FECAL OCCULT BLOO D [facility] Start: 10-08-2016 Screening for malign ant neoplasm of colon Fecal Occult Blood [facility] Start: 2015 RSV Vaccine (1 - 1-d ose 60+ series) RSV Vaccine (1 - 1-dose 60+ series) [facility] Start: 10-11-2000 COLOGUARD (FIT-DNA) COLOGUARD (FIT-D NA) [facility] Start: 10-11-[address] COLONOGRAPHY [facility] Start: 10-11-2000 Screening for malign ant neoplasm of colon [facility] Start: 10-11-2000 SIGMOIDOSCOPY SIGMOIDOSCOPY [facility] Start: 10-11-1973 BP Controlled (<130/80) BP Controlle d (<130/80) [facility] ALERE STREP A TEST (AG) ALERE ST REP A TEST (AG) Lab Routine Sore throat Ordered: 02/13/2022 [facility] Work Phone: Comment on above: Ordered: 02/13/2022 End: 09-24-2024 DBT Breast - bilateral screening ELLIOT SCREENING [facility] Radiology Routine Encounter for screening mammogram for malignant neoplasm of breast 1 Occurrences starting 08/27/2023 until 09/24/2024 [facility] Work Phone: Comment on above: 1 Occurrences starti ng 08/27/2023 until 09/24/2024 End: 02-05-2025 DBT Breast - bilateral screening ELLIOT SCREENING [facility] Radiology Routine Encounter for gynecological examination (general) (routine) without abnormal findings Encounter for screening mammogram for breast cancer 1 Occurrences starting 01/07/2024 until 02/05/2025 [facility] Work Phone: Comment on above: 1 Occurrences starti ng 01/07/2024 until 02/05/2025 End: 12-14-2023 DXA-AXIAL SKELETON DXA-AXIAL SKELETON Radiology Routine Asymptomatic postmenopausal state 1 Occurrences starting 11/14/2022 until 12/14/2023 [facility] Work Phone: Comment on above: 1 Occurrences starti ng 11/14/2022 until 12/14/2023 Influenza virus A an d B RNA and SARS-CoV-2 (COVID-19) N gene panel - Respiratory specimen by GUSTAVO with probe detection COVID WITH FLUA+B, ROUTINE Microbiology Routine URI, acute Ordered: 02/13/2022 [facility] Work Phone: Comment on above: Ordered: 02/13/2022 End: 06-25-2023 ELLIOT SCREENING W [facility] ELLIOT SCREENING [facility] Radiology Routine Encounter for screening mammogram for malignant neoplasm of breast Dense breast tissue 1 Occurrences starting 05/26/2022 until 06/25/2023 [facility] Work Phone: Comment on above: 1 Occurrences starti ng 05/26/2022 until 06/25/2023 PAP TEST PAP TEST Lab [place] Screening for malignant neoplasm of cervix Encounter for screening for human papillomavirus (HPV) 01/07/2024 11:26 AM EDT [facility] End: 12-14-2023 Radex spine lumbosacral 2/3 views XR LUMBAR GENERAL 3V AP/LAT/L5-S1 Radiology Routine Arthritis of right sacroiliac joint Lumbosacral pain 1 Occurrences starting 11/14/2022 until 12/14/2023 [facility] Work Phone: Comment on above: 1 Occurrences starti ng 11/14/2022 until 12/14/2023 Radex spine lumbosac ral 2/3 views XR LUMBAR GENERAL 3V AP/LAT/L5-S1 Radiology Routine Arthritis of right sacroiliac joint Lumbosacral pain 11/14/2022 11:42 AM EDT [facility] Work Phone: End: 01-09-2023 Screening mammography bi 2-view breast inc cad ELLIOT SCREENING Radiology Routine Encounter for screening mammogram for malignant neoplasm of breast 1 Occurrences starting 12/10/2021 until 01/09/2023 [facility] Work Phone: Comment on above: 1 Occurrences starti ng 12/10/2021 until 01/09/2023 End: 02-01-2023 Screening mammography bi 2-view breast inc cad ELLIOT SCREENING Radiology Routine Postmenopausal atrophic vaginitis 1 Occurrences starting 01/02/2022 until 02/01/2023 [facility] Work Phone: Comment on above: 1 Occurrences starti ng 01/02/2022 until 02/01/2023 End: 01-02-2022 Screening mammography bi 2-view breast inc cad [facility] Work Phone: Comment on above: 1 Occurrences starti ng 01/02/2022 until 01/02/2022 End: 12-14-2023 Us abdominal aorta real time screen study aaa US SCREENING FOR AAA Radiology Routine Pulsatile abdomen 1 Occurrences starting 11/14/2022 until 12/14/2023 [facility] Work Phone: Comment on above: 1 Occurrences starti ng 11/14/2022 until 12/14/2023 End: 02-18-2024 US VENOUS INCOMPETENCY [facility] US VENOUS INCOMPETENCY [facility] Vascular Lab Routine Symptomatic varicose veins of both lower extremities 1 Occurrences starting 02/17/2023 until 02/18/2024 [facility] Work Phone: Comment on above: 1 Occurrences starti ng 02/17/2023 until 02/18/2024 End: 12-26-2023 XR FOOT GENERAL 3V AP/LAT/OBL BILATERAL XR FOOT GENERAL 3V AP/LAT/OBL BILATERAL Radiology Routine Pain 1 Occurrences starting 11/26/2022 until 12/26/2023 [facility] Work Phone: Comment on above: 1 Occurrences starti ng 11/26/2022 until 12/26/2023 End: 03-23-2025 XR Knee - right 4 Views XR KNEE GENERAL 4V AP BOTH/PA BOTH/LAT/MERC RIGHT Radiology Routine Acute pain of right knee 1 Occurrences starting 02/22/2024 until 03/23/2025 [facility] Work Phone: Comment on above: 1 Occurrences starti ng 02/22/2024 until 03/23/2025 XR Knee - right 4 Views XR KNEE GENERAL 4V AP BOTH/PA BOTH/LAT/MERC RIGHT Radiology Routine Acute pain of right knee 02/22/2024 12:47 PM EST [facility] Immunizations Immunization Date Immunization Notes Care Provider Debbie chris 12-30-2023 COVID-19 vaccine, ag e 12+ yr (PFIZER-BIONTECH COMIRNATY) Immunization [place] Work Phone: [facility] 12-30-2023 influenza, high dose seasonal, preservative-free Immunization [place] Work Phone: [facility] 11-25-2023 respiratory syncytia l virus (RSV) vaccine, adjuvanted (AREXVY) Eugenio Peralta MD Work Phone: [facility] 01-10-2023 COVID-19 vaccine, ag e 12+ yr, season (PFIZER-BIONTECH) Immunization [place] Work Phone: [facility] Work Phone: 01-10-2023 influenza (HD-IIV4) vaccine, age 65+ yr, high dose, quadrivalent, PF (FLUZONE HIGH-DOSE) Immunization [place] Work Phone: [facility] 01-10-2023 influenza virus vaccine, unspecified formulation Eugenio Peralta MD Work Phone: [facility] 05-12-2022 COVID-19 booster vaccine, age 12+ yr, bivalent (PFIZER-BIONTECH) [place] Work Phone: [facility] Work Phone: 12-28-2021 influenza, high-dose , quadrivalent vaccine (FLUZONE HIGH DOSE QUADRIVALENT) Tiffani Gant APRN.MEDICAL OFFICE ASSISTANT Work Phone: [facility] 12-28-2021 influenza virus vaccine, unspecified formulation Reji Morgan PT Work Phone: [facility] 11-15-2021 pneumococcal (PCV20) vaccine, 20 valent (PREVNAR 20) [place] Work Phone: [facility] Work Phone: 11-01-2021 COVID-19 vaccine, ag e 12+ yr (PFIZER-BIONTECH - HOANG TOP) Eugenio Peralta MD Work Phone: [facility] 03-05-2021 COVID-19 vaccine, ag e 12+ yr (PFIZER-BIONTECH - PURPLE TOP) Eugenio Peralta MD Work Phone: [facility] 12-29-2020 influenza, high-dose , quadrivalent vaccine (FLUZONE HIGH DOSE QUADRIVALENT) Eugenio Peralta MD Work Phone: [facility] Work Phone: 11-12-2020 pneumococcal polysaccharide vaccine, 23 valent Eugenio Peralta MD Work Phone: [facility] Work Phone: 05-16-2020 COVID-19 vaccine, ag e 12+ yr (PFIZER-BIONTECH - PURPLE TOP) Eugenio Peralta MD Work Phone: [facility] 04-20-2020 COVID-19 vaccine, ag e 12+ yr (PFIZER-BIONTECH - PURPLE TOP) Eugenio Peralta MD Work Phone: [facility] 12-30-2019 influenza, injectabl e, quadrivalent, contains preservative Eugenio Peralta MD Work Phone: [facility] Work Phone: 01-22-2019 influenza, injectabl e, quadrivalent, contains preservative Eugenio Peralta MD Work Phone: [facility] 12-10-2018 zoster vaccine recombinant Eugenio Peralta MD Work Phone: [facility] Work Phone: 10-06-2018 tetanus toxoid, redu priya diphtheria toxoid, and acellular pertussis vaccine, adsorbed Eugenio Peralta MD Work Phone: [facility] 10-06-2018 zoster vaccine recombinant Eugenio Peralta MD Work Phone: [facility] 01-09-2018 influenza, injectabl e, quadrivalent, contains preservative Eugenio Peralta MD Work Phone: [facility] 01-03-2017 influenza, injectabl e, quadrivalent, contains preservative Eugenio Peralta MD Work Phone: [facility] 01-04-2016 influenza, injectabl e, quadrivalent, contains preservative Eugenio Peralta MD Work Phone: [facility] Work Phone: 12-30-2014 influenza, injectabl e, quadrivalent, contains preservative Eugenio Peralta MD Work Phone: [facility] Work Phone: 02-15-2014 influenza, seasonal, injectable Eugenio Peralta MD Work Phone: [facility] 07-27-2013 zoster vaccine, live Eugenio Peralta MD Work Phone: [facility] Work Phone: 01-29-2012 influenza virus vaccine, unspecified formulation Eugenio Peralta MD Work Phone: [facility] 03-27-2009 novel [id number], preservative-free, injectable Eugenio Peralta MD Work Phone: [facility] 10-09-2008 tetanus toxoid, redu priya diphtheria toxoid, and acellular pertussis vaccine, adsorbed Eugenio Peralta MD Work Phone: [facility] Work Phone: 01-24-2006 influenza virus vaccine, unspecified formulation Eugenio Peralta MD Work Phone: [facility] Payers Date Payer Category Payer Self-pay 2020 Medicare MMO MEDICARE MMO MEDADVANTAGE HMO [id number] 2020-Present [phone] [address] [place] [address] O [id number] 2020 Medicare MMO MEDICARE MMO MEDADVANTAGE HMO [id number] 2020-Present [phone] [address] [place] [address] O [id number] 2020 Medicare (Managed Care) MMO FRANCISCO JAVIER DVANTAGE HMO [id number] 2020 Unknown [id number] Unknown [id number] Unknown [id number] Unknown [id number] Unknown [id number] Unknown [id number] Social History Date Type Detail Facility Start: 03-06-2011 End: 01-02-2022 Tobacco smoking status NHIS Never smoked tobacco [facility] Work Phone: Start: 11-16-2020 End: 03-14-2024 Alcohol intake Current non-drinker of alcohol (finding) [facility] Start: 07-24-2020 End: 11-12-2021 History SDOH Alcohol Frequency 1 [facility] Start: 07-24-2020 End: 11-12-2021 History SDOH Social Connections Phone 2 [facility] Start: 07-24-2020 End: 11-12-2021 History SDOH Social Connections [facility] Start: 07-24-2020 End: 11-12-2021 History SDOH Social Connections Living 3 [facility] Start: 07-24-2020 End: 11-12-2021 History SDOH Financial 5 [facility] Start: 1955 Sex Assigned At Female [facility] Start: 10-18-2021 End: 02-17-2022 Exposure to SARS-CoV-2 (event) Not sure [facility] Start: 03-06-2011 End: 01-02-2022 Tobacco use and exposure Smokeless tobacco non-user [facility] Start: 11-12-2021 History SDOH Alcohol Std Drinks 0 [facility] Start: 11-12-2021 History SDOH Social Connections Phone 4 [facility] Start: 11-12-2021 End: 10-28-2022 History of Social function [facility] Start: 11-12-2021 End: 10-28-2022 Social connection and isolation panel [facility] How often do you att end cheondoism or worship services? Patient refused [facility] Are you now , , , , never or living with a partner? [facility] How often to you hav e a drink containing alcohol? Never [facility] Do you feel stress - tense, restless, nervous, or anxious, or unable to sleep at night because your mind is troubled all the time - these days [OSQ] Only a little [facility] (I/We) worried whejose eduardo er (my/our) food would run out before (I/we) got money to buy more. Never true [facility] In the past 12 month s, was there a time when you were not able to pay the mortgage or rent on time? No [facility] Start: 12-28-2020 Gender identity Identifies as female gender (finding) [facility] Start: 12-28-2020 Sexual orientation Heterosexual (kevin florez) [facility] Do you feel stress - tense, restless, nervous, or anxious, or unable to sleep at night because your mind is troubled all the time - these days [OSQ] Not at all [facility] Functional Status Date Assessment Result Facility 10-28-2014 Are you deaf, or do you have serious difficulty hearing No 10/28/2014 8:00 AM Shanta Goddard MA No [facility] 10-28-2014 Are you blind, or do you have serious difficulty seeing, even when wearing glasses No 10/28/2014 8:00 AM Shanta Goddard MA No [facility] 10-28-2014 Do you have serious difficulty walking or climbing stairs No 10/28/2014 8:00 AM Shanta Goddard MA No [facility] 10-28-2014 Do you have difficul ty dressing or bathing No 10/28/2014 8:00 AM Shanta Goddard MA No [facility] 10-28-2014 Because of a physica l, mental, or emotional condition, do you have difficulty doing errands alone such as visiting a physician's office or shopping No 10/28/2014 8:00 AM Shanta Goddard MA No [facility] Mental Status Date Assessment Result Facility 10-28-2014 Because of a physica l, mental, or emotional condition, do you have serious difficulty concentrating, remembering, or making decisions No 10/28/2014 8:00 AM Shanta Goddard MA No [facility] Clinical Notes 07-25-2013 to 08-29-2024 Telephone Encounter [...] Arrieta LPN August 29, 2024 3:51 PM [facility] 08-29-2024 Miscellaneous Notes Prescription Refill Information The [...] 2024 3:51 PM documented in this encounter [facility] 03-14-2024 Note HNO ID: [id number] Author: EUGENIO PERALTA MD Service: ? Author [...] skin discoloration, cl (more content not included)... [facility] 03-14-2024 History of Present illness [...] Good capillary refill. documented in this encounter [facility] 02-22-2024 History of Present illness Narrative Radiology [...] PATIENT PRESENTS WITH AN IMPLANTABLE OR ATTACHED SPORTS COORDINATOR: No RADIOLOGY DEPARTMENT: General X-ray: Exam(s) Completed: Lower Extremity X-Ray(s): Knee, AP / Lat / Tunne / Merchant Right PERIPHERAL IV DATA: Not applicable SIGNED BY: RT April(R) February 22, 2024 12:30 PM documented in this encounter [facility] 02-22-2024 Note HNO ID: [id number] Author: IVANA WELLINGTON RT(R) Service: ? Author Type: Surgeon'S Assistant Type: Progress Notes Filed: 02/22/2024 12:47 Note [...] PATIENT PRESENTS WITH AN IMPLANTABLE OR ATTACHED SPORTS COORDINATOR: No RADIOLOGY DEPARTMENT: General X-ray: Exam(s) Completed: Lower Extremity X-Ray(s): Knee, AP / Lat / Tunne / Merchant Right PERIPHERAL IV DATA: Not applicable SIGNED BY: RT April(R) February 22, 2024 12:30 PM [facility] 02-22-2024 Instructions Lola Farris APRN.CNP - 02/22/2024 12:21 PM EST Get the knee xray. Start the lisinopril. Recheck in a month. documented in this encounter [facility] 02-22-2024 Note HNO ID: [id number] Author: LOLA FARRIS APRN.JAIRON Service: ? Author [...] BIOPSY HX ALLERGIES Adhesive Tape-Silicones and Poison Akankhsa MEDICATIONS Current Outpatient Medications Medication Sig clobetasol [...] understanding. Patient's que (more content not included)... [facility] 02-22-2024 History of Present illness [...] Lola Farris APRN.CNP documented in this encounter [facility] 01-11-2024 Note Addended by: TIFFANI GANT on: 01/11/2024 08:01 AM Modules accepted: Orders [facility] 01-11-2024 Miscellaneous Notes Addended by: TIFFANI GANT on: 01/11/2024 08:01 AM Modules accepted: Orders documented in this encounter [facility] 01-07-2024 History of Present illness Narrative Radiology [...] PATIENT PRESENTS WITH AN IMPLANTABLE OR ATTACHED SPORTS COORDINATOR: No RADIOLOGY DEPARTMENT: Mammography PERIPHERAL IV DATA: Not applicable SIGNED BY: Brendna Zapata January 07, 2024 10:12 AM documented in this encounter [facility] 01-07-2024 Note HNO ID: [id number] Author: HAFSA ALVARADO Mammo Tech Service: ? 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 Lucas is a 68 year old who [...] Comment: 1 section No surgery for ectopic Content Publisher History LMP: 09/17/2008, Postmenopausal Age at Menarche: Age at First : Age at Menopause: Content Publisher History Comments: Sexual Activity: Yes; Male; bilateral [...] discussed with the Patient or Patient's Authorized Brewmaster. As applicable, any other physician, advance practice provider, medical student, or other health professional student that will be observing or involved in the sensitive examination for educational or training purposes was discussed with the Patient or Authorized Brewmaster. The Patient or Authorized Brewmaster has agreed to proceed with the sensitive [...] external genitalia normal, normal Bartholin's glands, urethra, Gatewood's glands, no vulvar lesions, no cervical lesions, [...] Tiffani Gant APRN.JAIRON documented in this encounter [facility] 01-07-2024 Note HNO ID: [id number] Author: TIFFANI GANT APRN.CNP Service: ? 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 Lucas is a 68 year old who [...] Comment: 1 section No surgery for ectopic Content Publisher History LMP: 09/17/2008, Postmenopausal Age at Menarche: Age at First : Age at Menopause: Content Publisher History Comments: Sexual Activity: Yes; Male; bilateral [...] discussed with the Patient or Patient's Authorized Brewmaster. As applicable, any other physician, advance practice provider, medical student, or other health professional student that will be observing or involved in the sensitive examination for educational or training purposes was discussed with the Patient or Authorized Brewmaster. The Patient or Authorized Brewmaster has agreed to proceed with the sensitive [...] external genitalia normal, normal Bartholin's glands, urethra, Gatewood's glands, no vulvar lesions, no cervical lesions, [...] up one year (more content not included)... [facility] 12-24-2023 Instructions Natalia Monge APRN.CNP - 12/24/2023 2:23 PM EDT 1) No change in medications 2) See Dr. Peralta in September as scheduled documented in this encounter [facility] 12-24-2023 Note HNO ID: [id number] Author: NATALIA MONGE APRN.CNP Service: ? Author [...] as needed for worsening/no improvement. Natalia Monge APRN.[facility] 12-24-2023 History of Present illness Narrative This [...] Natalia Monge APRN.JAIRON documented in this encounter [facility] 12-24-2023 Nurse Note 12/24/2023: Home BP Cuff Validated. Home BP: 125/83 P69 Office BP: 130/82 P:68 Celia Rider MA December 24, 2023 2:11 PM [facility] 12-24-2023 Nurse Note 12/24/2023: Home BP Cuff Validated. Home BP: 125/83 P69 Office BP: 130/82 P:68 Celia Rider MA December 24, 2023 2:11 PM documented in this encounter [facility] 12-22-2023 Telephone encounter Note Pt called in [...] appointment, along with cuff to be checked. [facility] 12-22-2023 Miscellaneous Notes Pt called in and [...] to be checked. documented in this encounter [facility] 12-14-2023 Telephone encounter Note Prescription Refill Information [...] Arrieta LPN December 14, 2023 6:10 PM [facility] 12-14-2023 Miscellaneous Notes Prescription Refill Information The [...] 2023 6:10 PM documented in this encounter [facility] 12-03-2023 Note HNO ID: [id number] Author: MAYRA LAN PA-C Service: ? Author Type: Physician Gauge And Weigh Machine Operator Type: Progress Notes Filed: 12/03/2023 10:02 Note [...] patient to contact office. Mayra Lan PA-C [facility] 12-03-2023 History of Present illness [...] Mayra Lan PA-C documented in this encounter [facility] 11-24-2023 Note HNO ID: [id number] Author: REJI MORGAN PT Service: ? Author Type: Physical Therapist Type: Progress Notes Filed: 11/24/2023 11:22 Note Text: 11/24/2023 [facility] PHYSICAL THERAPY [...] scheduled additional follow-up appointments. Reji Morgan, PT [facility] 10-26-2023 Note HNO ID: [id number] Author: EUGENIO PERALTA MD Service: ? Author [...] patient in the medical record. arpan Gibbons PSYCHOLOGIST DEVELOPMENTAL, [facility]. Medical/Family history review Reviewed and [...] No history of dysuria, frequency or incontinence PSYCHOLOGIST DEVELOPMENTAL: Negative for abnormal vaginal bleeding, abnormal vaginal [...] regular exercise - Personalized prevention plan provided [facility] 10-26-2023 History of Present illness [...] in the medical record. Dr Kovacs, sees PSYCHOLOGIST DEVELOPMENTAL, [facility]. Medical/Family history review Reviewed and [...] No history of dysuria, frequency or incontinence PSYCHOLOGIST DEVELOPMENTAL: Negative for abnormal vaginal bleeding, abnormal vaginal [...] prevention plan provided documented in this encounter [facility] 10-26-2023 Evaluation note Diagnosis Mixed hyperlipidemia- Primary Chronic kidney disease, stage 3a (HCC) Screening for depression Encounter for screening examination for other mental health and behavioral disorders documented in this encounter [facility]05-30-2024 Telephone encounter Note* Telephone Encounter - Tiffani Gant APRN.CNP - 08/27/2023 7:50 AM EDT Orders filed. [facility]05-30-2024 Miscellaneous Notes* Telephone Encounter - Tiffani Gant APRN.CNP - 08/27/2023 7:50 AM EDT Orders filed. * Telephone Encounter - Rhonda Lyons RN - 08/26/2023 11:04 AM EDT Mamm with SAIRA order pending. Please file and then route to schedulers. Thank you. documented [facility]05-29[facility]24 Telephone encounter Note * Telephone Encounter - Rhonda Lyons RN - 08/26/2023 11:04 AM EDT Mamm with SAIRA order pending. Please file and then route to schedulers. Thank you. [facility]05-04-2024 NoteHNO ID: [id number] Author: ENMANUEL WONG MD Service: ? Author [...] pain, or late onset fever. Enmanuel Wong, [facility]05-04-2024 History of Present illness Narrative* Enmanuel Wong [...] fever. Enmanuel Wong MD documented in [facility] encounter[facility] Miscellaneous Notes* Addendum Note - Eugenio Peralta MD - 06/15/2023 9:39 AM EDTAddended by: EUGENIO PERALTA on: 06/15/2023 09:39 AM Modules accepted: Orders documented in this encounterTri[facility]-27-2024 NoteHNO ID: [id number] Author: LEXY KOVACS, DO Service: ? Author Type: Physician Type: Progress Notes Filed: 05/26/2023 15:08 Note Text: [facility] [place] DEPARTMENT OF VASCULAR SURGERY OUTPATIENT VISIT DATE [...] Astudillo DATE: May 26, 2023 TIME: 2:25 [facility]02-27-2024 History of Present illness Narrative* Lexy Kovacs DO - 05/26/2023 2:25 PM EST Images from the original note were not included. [facility] [place] DEPARTMENT OF VASCULAR SURGERY OUTPATIENT VISIT DATE [...] phlebectomy. SIGNATURE: Lexy Kovacs DO PATIENT NAME: uLcas Astudillo DATE: May 26, 2023 TIME: 2:25 PM documented in this encounter[facility]-2024 NoteHNO ID: [id number] Author: REJI MORGAN PT Service: ? Author [...] of Care: created on 05/04/23 through 06/02/23 [place] in home exercise program. Patient will decrease [...] Planned: 1 Planned Treatment Interventions: Therapeutic exercise (44993), Neuromuscular re-education (97753), Manual therapy (41678), Therapeutic activities (50051), Self-custodial management (63337), Patient/Family/Caregiver Education PLAN FOR NEXT VISIT: Assess [...] Shoulder ABduction: 140 Degr (more content not included)...[facility]01-23-2024 NoteHNO ID: [id number] Author: Mavis HUGHES PA-C Service: ? Author Type: Physician Gauge And Weigh Machine Operator Type: Progress Notes Filed: 04/25/2023 14:21 Note [...] arm with trying to reach overhead, negative Durham's, negative Martinez, negative lift off. Tender trigger [...] Patient choice was di (more content not included)...[facility]01-02-2024 History of Present illness Narrative* [...] 31, 2023 12:47 PM documented [facility] encounter[facility]-21-[facility]23 Instructions* Patient Instructions* Lexy Kovacs, DO - [...] allow to air dry. There are also container washer machine recommendations included with your stockings. Skin care- [...] palm of the gloved will help you sports marketing coordinator the stocking while putting it on. Be [...] are wearing the most effective size. Locations: [facility] Pharmacy- [phone] [employer] [phone] www.[employer]- [phone] www.[email or web address]- [phone] Located in [facility] [place] local store and schedule a fitting. documented in this encounterTri[facility]11-21-2023 History of Present illness Narrative* Lexy Kovacs DO - 02/17/2023 8:43 AM EST Images from the original note were not included. [facility] [place] DEPARTMENT OF VASCULAR SURGERY OUTPATIENT VISIT DATE February 17, 2023 OUTPATIENT VISIT TYPE CONSULTATION SERVICE DATE: 02/17/2023 SERVICE TIME: 8:46 AM PRIMARY CARE PHYSICIAN: Eugenio Peralta MD REFERRING PROVIDER: Mavis Hughes [address] [facility] [address] Consult requested for an opinion regarding the [...] cancerous cells in uterus per Sharon Ellis, MEDICAL OFFICE ASSISTANT other (hysterectomy) Sister half-sister; unknown etiology Diabetes [...] 2023 TIME: 8:46 AM documented in this encounter[facility]11-14-[facility]23 History of Present illness Narrative* Reji Morgan, PT - 02/10/2023 10:26 AM EST Program_ID:[id number] Access Code: [email or web address] URL: [email or web address] Date: 02-10-2023 Prepared By: Reji Morgan Program [...] 1030 Reji Morgan PT documented in this encounterTri[facility]11-08-2023 History of Present illness Narrative* Harry Faustin, PT - 02/04/2023 10:27 AM EST [facility] DME ISSUE NOTE Patient identified by name and date: Yes Subjective: Lucas Astudillo is a 67 year old female seen today for fitting and pickle processor of custom foot orthotics. 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 Pt was educated on [...] Custom biomechanical foot orthotics with serial number: #[id number] were issued to patient and proof of receipt form signed by pt and therapist. All specifications for custom foot orthotics can be foundin orthotic evaluation visit note. Planned Interventions: Follow up as needed for brace fitting/issues. Billing:[facility]: Orthotics Management and Training (26512): 1:1 time: 15 minutes (1 unit: 8-22 mins) Equipment: [id number] pair of custom foot orthotics Total time: 15 minutes Harry Faustin PT documented in this encounterTrihealth [facility] History of Present illness Narrative* Reji Morgan, [...] 1402 Reji Morgan PT documented in this encounterTrihealth [facility] History of Present illness Narrative* Harry Faustin, [...] visit and 1 visit for fitting and pickle processor) Planned Treatment Interventions: Orthosis / DME, Patient/Family/Caregiver Education, Self-care homemanagement (08459) PLAN FOR NEXT VISIT: Fitting and pickle processor of custom foot orthotics Patient demonstrates good [...] 1220 Harry Faustin PT documented in this encounterTrihealth [facility]10-[facility] History of Present illness Narrative* Reji Morgan, [...] of Care: created on 12/04/22 through 02/10/23 [place] in home exercise program. (MET) Patient will [...] Patient to be seen for Therapeutic exercise (05692), Neuromuscular re-education (27637), Manual therapy (22062), Therapeutic activities (43764), Self-custodial management (41970), Patient/Family/Caregiver Education, Body Mechanics Training, General Conditioning [...] and tactile cuing. Manual Therapy: 1: Long Donie Distraction: Pull to patient tolerance. 2: Manual [...] 1622 Reji Morgan PT documented in this encounterTrihealth [facility]10-11-2023 Miscellaneous Notes* Telephone Encounter - Vanessa Hughes [...] recommendations. Donna Edwards RN documented in this encounterTrihealth [facility]10-10-[facility]23 Miscellaneous Notes* Letter - Coordinator, Mammography - 01/06/2023 1:42 PM EDT January 07, 2023 PID: [id number] Lucas Astudillo [address] [place] [address] Dear Ms. Astudillo, We are pleased to [...] report will be [facility] as part of your permanent medical record and are available for your continuing care. Thank you for allowing us to help in meeting your health care needs. Sincerely, Dr. Shoemaker Interpreting Radiologist [facility] (Normal over 40) documented in this encounterTrihealth [facility]10-09-20[facility] History of Present illness Narrative* Tameka Tomas [...] DATA: Not applicable SIGNED BY: Tameka Tomas Parkzzz Jesse January 05, 2023 10:49 AM documented in this encounterTrihealth [facility]09-21-[facility] Instructions* Patient Instructions* Jt Ramachandran - 12/18/2022 [...] time on their feet, such as nurses, power line installer and repairer/waiters, andmail carriers, often experience plantar fasciitis. Athletes [...] choose the one that fits the best. [place] with your athletic shoes to find a [...] and repeat the exercise. documented in this encounterTrihealth [facility]09-21-2023 History of Present illness Narrative* Jt Ramachandran [...] inserts. Jt Ramachandran DPM Podiatry [address] [facility] [address] Dept: [phone] Dept * Vicki Valdovinos LPN - 12/18/2022 8:21 AM EDT AMB ROOMING INTAKE FLOWSHEET DATA Pain Pain Level: 2 Pain Location: Foot-Left Description: Other: See comment (tender) Duration Units: Years Frequency: Intermittent Intervention/Comfort measure: Reposition, Relaxation Patient presents with: Left Foot - New, Pain Right Foot - New, Pain Vicki Valdovinos LPN documented in this encounterTrihealth [facility]09-19-[facility] History of Present illness Narrative* Reji Morgan, [...] and tactile cuing. Manual Therapy: 1: Long Donie Distraction: Pull to patient tolerance. 2: Manual [...] 1529 Reji Morgan PT documented in this encounterTrihealth [facility]09-15-[facility] History of Present illness Narrative* Reji Morgan, [...] 743 Reji Morgan PT documented in this encounterTrihealth [facility]09-07-20[facility] History of Present illness Narrative* Reji Morgan, [...] of Care: created on 12/04/22 through 01/15/23 [place] in home exercise program. Patient will decrease [...] Planned: 4 Planned Treatment Interventions: Therapeutic exercise (67677), Neuromuscular re- education (24719), Manual therapy (51632), Therapeutic activities (66573), Self- custodial management (68056), Patient/Family/Caregiver Education, Body Mechanics Training, General Conditioning [...] PT Treatment Interventions: Therapeutic Exercise, Manual Therapy, Self-Senior Care Management Evaluation Therapeutic Exercise: 1: *SKC: 1x30 [...] and tactile cuing. Manual Therapy: 1: Long Donie Distraction: Pull to patient tolerance. 2: Manual L/S Traction with belt and knees propped on stool, caudal pull with belt to patient tolerance. Skilled Intervention: Manual skills to improve joint mobility, ROM, and decrease pain. Utilized anatomy knowledge of the therapist, and assessment of patient's response to intervention. Self-Senior Care Management: 1: *Discussion and education about previous [...] 1034 Reji Morgan PT documented in this encounterTrihealth [facility]09-06-2023 History of Present illness Narrative* Jose Carlos [...] 03, 2022 10:03 AM documented in this encounterTrihealth [facility]09-06-[facility] History of Present illness Narrative* Daisy Kasper [...] 03, 2022 8:51 AM documented in this encounterTrihealth [facility]08-30-[facility] History of Present illness Narrative* Erendira Rivera - 11/26/2022 12:17 PM EDT Bilateral Foot documented in this encounterTrihealth [facility]08-28-20[facility] History of Present illness Narrative* Zoë Linder - 11/24/2022 11:59 AM EDT POPULATION HEALTH NAVIGATION OUTREACH Action/[facility] Support: Called pt to schedule an appt in Pain Management. m for pt to call [phone] for scheduling. Patient Identified by Name and : NO Outreach Outcome/Action Unable to reach patient: Left message Did you use a PCP flex slot to schedule this appointment? No Reason for Outreach Care Gap or Scheduling/Wellness visits Payer: Payor: O MEDICARE / Plan: [employer] HMO / Product Type: HMO / Care Gap Reviewed:: Specialty Scheduling Reminder: Reminder note to check Health Maintenance for items below Health Maintenance items due: MAMMOGRAM due on 01/02/2023 Navigation Signature: Zoë Linder November 24, 2022 11:59 AM documented in this encounterTrihealth [facility]08-24-2023 Telephone encounter Note * Telephone Encounter - Giovanna Ling - 11/20/2022 3:23 PM EDT Patient is scheduled [facility]08-24-[facility]23 Miscellaneous Notes* Telephone Encounter - Giovanna Ling [...] Please review and advise. documented in this encounterTrihealth [facility]08-24-2023 Telephone encounter Note * Telephone Encounter - Mavis Hughes PA-C - 11/20/2022 12:08 PM EDT Telephone on 11/19/22 CONSULT TO PHYSICAL THERAPY Arthritis of right sacroiliac joint (primary encounter diagnosis) ThanksTomasz PA-C [facility]08-23-2023 Telephone encounter Note* Telephone Encounter - Jan Arrieta LPN - 11/19/2022 9:17 AM EDT See lumbar xray result note- provider recommended PT or pain mgmt. Jan Arrieta LPN [facility]08-23-2023 Telephone encounter Note* Telephone Encounter - Agnes La - 11/19/2022 9:07 AM EDT Patient needs a physical therapy consult placed to schedule. Please review and advise. [facility]08-[facility] History of Present illness Narrative* Ivis Pelayo, [...] 14, 2022 11:24 AM documented in this encounterTrihealth [facility]08-18-2023 Instructions* Patient Instructions* Mavis Hughes PA-C - 11/14/2022 11:05 AM EDT HEALTH MAINTENANCE: Your Body mass index is 31.15 kg/m . (Target BMI: 19-25) Regular aerobic exercise, low fat diet, and periodic exams are recommended Living Will & Medical Power of Counterperson recommended Periodic Pap smear per risk profile. [...] your usual activities immediately. documented in this encounterTrihealth [facility]08-18-2023 History of Present illness Narrative* Mavis Hughes PA-C - 11/14/2022 10:00 AM EDT 67 year old female with c/o well visit, BP check, last visit with sc 07/26/2020lydiase Maya Astudillo is a 67 year old female here for a Medicare wellness visit. Health Risk Assessment In general, health is: Good Concerns with balance: Not at all Concerns with teeth or dentures: Not at all Concerns with sexual function: Not at all [place] anxious, stressed, angry, irritable, lonely, isolated, or [...] concerns: Wants recheck on ear 11/01/2022 In [facility] Care for sore throat and [...] Lymph 1.00 - 4.00 k/uL 1.51 1.29 [place]% % 5.6 5.7 Abs [place] <0.87 k/uL 0.28 0.24 Eosin% % 1.6 [...] kidney infection. Females: Climacteric early 50s. Sees PSYCHOLOGIST DEVELOPMENTAL for lichen sclerosis. No hx of ovarian [...] - ICD9: 701.0, ICD10: N90.4 Follows with PSYCHOLOGIST DEVELOPMENTAL 8. Wellness examination - ICD9: V70.0, ICD10: [...] 11/14/2022 2:04 PM EDT documented in this encounterTrihealth [facility]08-05-2023 Instructions* Patient Instructions* Johanne Santos APRN.CNP - [...] breath, inability to swallow. documented in this encounterTrihealth [facility]08-05-2023 History of Present illness Narrative* Johanne Santos APRN.CNP - 11/01/2022 10:17 AM EDT Subjective The history is provided by the patient. No language instructor was used. JOSE Astudillo is a 67 [...] have confirmed and edited as necessary, the [facility] Review of Systems Constitutional: Negative for chills, [...] indetail warranting prompt ER evaluation. Johanne Santos APRN.MEDICAL OFFICE ASSISTANT documented in this encounterTrihealth [facility]08-01-2023 Instructions* Patient Instructions* Crystal Pastrana PA-C - 10/28/2022 10:54 AM EDT -If dysphagia symptoms recur, would recommend esophageal manometry for further evaluation -Repeat EGD in 5 years for surveillance due to long-term PPI use The following instructions are important for you related to your office visit today with the [facility]. INSTRUCTIONS FOR PEPTIC ULCER DISEASE/GASTRITIS [...] you should contact our office immediately @ [phone] and ask to be transferred to the General Surgery department. documented in this encounterTrihealth [facility]08-01-2023 History of Present illness Narrative* Crystal Pastrana PA-C - 10/28/2022 10:35 AM EDT FOLLOW UP VISIT - ENDOSCOPY NAME: Lucas Trejo [facility] NO.: [id number] DATE OF SERVICE: 10/28/2022 : 1955 REFERRING [...] which included preparing to see the patient, [id number] patient care, completing clinical documentation, obtaining and/or reviewing separately obtained history, counseling and educating the patient/family/caregiver, independently interpretin g results (not separately reported), and communicating results to the patient/family/caregiver. Crystal Pastrana PA-C documented in this encounterTrihealth [facility]07-25-[facility]23 History of Present illness Narrative* Sabina Kauffman, [...] 21, 2022 12:55 PM documented in this encounterTrihealth [facility]07-24-2023 Nurse Note* Mary Torres RN - 10/20/2022 9:41 AM EDT Patient sitting up in bed tolerating snack and drink without problems. Mary Torres RN * Mary Torres RN - 10/20/2022 9:15 AM EDT Patient arrived to PACU, on left side, abomen soft. Drowsy.Denies pain. Mary Torres RN documented in this encounterTrihealth [facility]07-24-2023 History and physical note * Eriberto Disla [...] patient was offered a surgery/procedure at a [facility]. I have counseled the patient regarding [...] 2022 TIME: 8:05 AM documented in this encounterTrihealth [facility]04-25-2023 History of Present illness Narrative* Crystal Pastrana [...] cancerous cells in uterus per Sharon Ellis, MEDICAL OFFICE ASSISTANT other (Precancerous cervix cells) Other Niece (hysterectomy) [...] patient was offered a surgery/procedure at a [facility] facility. I have counseled the patient regarding [...] mail. Crystal Pastrana PA-C documented in this encounterTrihealth [facility]04-25-2023 Nurse Note* Vikki Castillo LPN - 07/22/2022 [...] 2018 Vikki Castillo LPN documented in this encounterTrihealth [facility]03-07-2023 Miscellaneous Notes* Telephone Encounter - Jan Arrieta [...] advise, Alma Haq RN documented in this encounterTrihealth [facility]02-27-2023 Miscellaneous Notes* Telephone Encounter - Henny Loya LPN - 05/26/2022 9:02 AM EST Pt wanting order for 3D mammogram. Pt will call to schedule later. No need to return call to pt. Henny Loya LPN documented in this encounterTrihealth [facility]02-14-2023 Miscellaneous Notes* Telephone Encounter - Lin Rouse - 05/13/2022 8:40 AM EST No answer. Informed via VM. Advised to call back with any questions or concerns. Lin Rouse * Telephone Encounter - Mavis Hughes PA-C - 05/13/2022 4:39 AM EST Sure, as long as they realize I am prison age with no set plans but may [...] call and advise Pt. documented in this encounterTrihealth [facility]02-13-2023 History of Present illness Narrative* Estrella James LPN - 05/12/2022 10:23 AM EST Patient presents for COVID vaccine. Denies any problems at this time. Tolerated injection well. Estrella James LPN documented in this encounterTrihealth [facility]11-21-2022 History of Present illness Narrative* Sabina Kauffman [...] 17, 2022 9:50 AM documented in this encounterTrihealth [facility]11-21-2022 Instructions* Patient Instructions* Lola Farris APRN.CNP - [...] know if no better/worsening. documented in this encounterTrihealth [facility]11-21-2022 History of Present illness Narrative* Lola Farris [...] as needed for worsening/no improvement. Lola Farris APRN.MEDICAL OFFICE ASSISTANT This note was partially generated using Rep voice recognition system. Note was reviewed for accuracy. There may be minor misspellings or grammar miscues with Fash[employer]on voice recognition. documented in this encounterTrihealth [facility]11-17-2022 History of Present illness Narrative* Alberto Le [...] plan Alberto Le APRN.CNP documented in this encounterTrihealth [facility]11-17-2022 Instructions* Patient Instructions* Alberto Le APRN.CNP - [...] spread by coughs, sneezes, anddirect contact, especially [id number]. A respiratory tract infection usually clears up [...] 102 F (39 C). documented in this encounterTrihealth [facility]10-31-2022 Miscellaneous Notes* Telephone Encounter - Leisa Farris [...] 10/2022 Last refill: 12/2020 documented in this encounterTrihealth [facility]10-07-2022 Miscellaneous Notes* Letter - Mammography Coordinator - 01/03/2022 8:14 AM EDT January 03, 2022 PID: [id number] Lucas Astudillo [address] [place] [address] Dear Ms. Astudillo, We are pleased to [...] report will be [facility] as part of your permanent medical record and are available for your continuing care. Thank you for allowing us to help in meeting your health care needs. Sincerely, Dr. Hammonds Interpreting Radiologist [facility] (Normal over 40) documented in this encounterTrihealth [facility]10-06-2022 History of Present illness Narrative* RT Rosy(R) [...] 02, 2022 2:54 PM documented in this encounterTrihealth [facility]10-06-2022 History of Present illness Narrative* Tiffani Gant APRN.JAIRON - 01/02/2022 2:23 PM EDT Correctional Security Officer offered: Patient declines. Lucas is a 66 [...] Comment: 1 section No surgery for ectopic Content Publisher History LMP: 09/17/2008, Postmenopausal Age at Menarche: Age at First : Age at Menopause: Content Publisher History Comments: Sexual Activity: Yes; Male; bilateral [...] external genitalia normal, normal Bartholin's glands, urethra, [place]'s glands, no cervical lesions, good vaginal support, [...] ordered Tiffani Gant APRN.CNP documented in this encounterTrihealth [facility]09-[facility] History of Present illness Narrative* Nallely Slater [...] and up to date documented in this encounterTrihealth [facility]09-13-2022 Miscellaneous Notes* Telephone Encounter - Rosie Galan RN - 12/10/2021 4:26 PM EDT Annual and mammogram reschedule to 01/02/22 with RM. Previous order then . Please file order. Rosie Galan RN documented in this encounterTrihealth [facility]08-19-2022 History of Present illness Narrative* Estrella James LPN - 11/15/2021 3:00 PM EDT Patient presents for Prevnar 20 vaccine. Denies any problems at this time. Tolerated injection well. Estrella James LPN documented in this encounterTrihealth [facility]04-28-2014 History of Past illness Narrative* Problem Noted Date Resolved Date GERD (gastroesophageal reflux disease) 4 09/14/2017 Carpal tunnel syndrome 01/12/2006 0 documented as of this encounter (statuses as of 11/01/2021) [facility] History of Past illness Narrative* Problem Noted Date Resolved Date GERD (gastroesophageal reflux disease) 4 09/14/2017 Carpal tunnel syndrome 01/12/2006 0 documented as of this encounter (statuses as of 11/15/2021) [facility] History of Past illness Narrative* Problem Noted Date Resolved Date GERD (gastroesophageal reflux disease) 4 09/14/2017 Carpal tunnel syndrome 01/12/2006 0 documented as of this encounter (statuses as of 11/18/2021) [facility] of Past illness Narrative* Problem Noted Date Resolved Date GERD (gastroesophageal reflux disease) 4 09/14/2017 Carpal tunnel syndrome 01/12/2006 0 documented as of this encounter (statuses as of 12/10/2021) [facility] History of Past illness Narrative* Problem Noted Date Resolved Date GERD (gastroesophageal reflux disease) 4 09/14/2017 Carpal tunnel syndrome 01/12/2006 0 documented as of this encounter (statuses as of 12/17/2021) [address]28-2014 History of Past illness Narrative* Problem Noted Date Resolved Date GERD (gastroesophageal reflux disease) 4 09/14/2017 Carpal tunnel syndrome 01/12/2006 0 documented as of this encounter (statuses as of 01/02/2022) [place] [id number] History of Past illness Narrative* Problem Noted Date Resolved Date GERD (gastroesophageal reflux disease) 4 09/14/2017 Carpal tunnel syndrome 01/12/2006 0 documented as of this encounter (statuses as of 01/03/2022) [place] [id number] History of Past illness Narrative* Problem Noted Date Resolved Date GERD (gastroesophageal reflux disease) 4 09/14/2017 Carpal tunnel syndrome 01/12/2006 0 documented as of this encounter (statuses as of 01/07/2022) [place] [id number] History of Past illness Narrative* Problem Noted Date Resolved Date GERD (gastroesophageal reflux disease) 4 09/14/2017 Carpal tunnel syndrome 01/12/2006 0 documented as of this encounter (statuses as of 01/27/2022) [place] [id number] History of Past illness Narrative* Problem Noted Date Resolved Date GERD (gastroesophageal reflux disease) 4 09/14/2017 Carpal tunnel syndrome 01/12/2006 0 documented as of this encounter (statuses as of 02/13/2022) [facility] Narrative* Problem Noted Date Resolved Date GERD (gastroesophageal reflux disease) 4 09/14/2017 Carpal tunnel syndrome 01/12/2006 0 documented as of this encounter (statuses as of 02/17/2022) [facility] Narrative* Problem Noted Date Resolved Date GERD (gastroesophageal reflux disease) 4 09/14/2017 Carpal tunnel syndrome 01/12/2006 0 documented as of this encounter (statuses as of 05/12/2022) [facility] illness Narrative* Problem Noted Date Resolved Date GERD (gastroesophageal reflux disease) 4 09/14/2017 Carpal tunnel syndrome 01/12/2006 0 documented as of this encounter (statuses as of 05/13/2022) [facility] illness Narrative* Problem Noted Date Resolved Date GERD (gastroesophageal reflux disease) 4 09/14/2017 Carpal tunnel syndrome 01/12/2006 0 documented as of this encounter (statuses as of 05/26/2022) [facility] Narrative* Problem Noted Date Resolved Date GERD (gastroesophageal reflux disease) 4 09/14/2017 Carpal tunnel syndrome 01/12/2006 0 documented as of this encounter (statuses as of 06/03/2022) [facility] Narrative* Problem Noted Date Resolved Date GERD (gastroesophageal reflux disease) 4 09/14/2017 Carpal tunnel syndrome 01/12/2006 0 documented as of this encounter (statuses as of 08/01/2022) [facility] Narrative* Problem Noted Date Diagnosed Date Resolved Date GERD (gastroesophageal reflux disease) 07/25/2013 09/14/2017 Carpal tunnel syndrome 01/12/200606/05 documented as of this encounter (statuses as of 10/28/2022) [place] [address] History of Past illness Narrative* Problem Noted Date Diagnosed Date Resolved Date GERD (gastroesophageal reflux disease) 07/25/2013 09/14/2017 Carpal tunnel syndrome 01/12/200606/05 documented as of this encounter (statuses as of 11/01/2022) [place] [address]-2014 History of Past illness Narrative* Problem Noted Date Diagnosed Date Resolved Date GERD (gastroesophageal reflux disease) 07/25/2013 09/14/2017 Carpal tunnel syndrome 01/12/200606/05 documented as of this encounter (statuses as of 11/14/2022) [address]28-2014 History of Past illness Narrative* Problem Noted Date Diagnosed Date Resolved Date GERD (gastroesophageal reflux disease) 07/25/2013 09/14/2017 Carpal tunnel syndrome 01/12/200606/05 documented as of this encounter (statuses as of 11/24/2022) [address]28-2014 History of Past illness Narrative* Problem Noted Date Diagnosed Date Resolved Date GERD (gastroesophageal reflux disease) 07/25/2013 09/14/2017 Carpal tunnel syndrome 01/12/200606/05 documented as of this encounter (statuses as of 11/26/2022) [address]28-2014 History of Past illness Narrative* Problem Noted Date Diagnosed Date Resolved Date GERD (gastroesophageal reflux disease) 07/25/2013 09/14/2017 Carpal tunnel syndrome 01/12/200606/05 documented as of this encounter (statuses as of 12/04/2022) [place] [address]2014 History of Past illness Narrative* Problem Noted Date Diagnosed Date Resolved Date GERD (gastroesophageal reflux disease) 07/25/2013 09/14/2017 Carpal tunnel syndrome 01/12/200606/05 documented as of this encounter (statuses as of 12/05/2022) [address]28-2014 History of Past illness Narrative* Problem Noted Date Diagnosed Date Resolved Date GERD (gastroesophageal reflux disease) 07/25/2013 09/14/2017 Carpal tunnel syndrome 01/12/200606/05 documented as of this encounter (statuses as of 12/12/2022) [place] [address]28-2014 History of Past illness Narrative* Problem Noted Date Diagnosed Date Resolved Date GERD (gastroesophageal reflux disease) 07/25/2013 09/14/2017 Carpal tunnel syndrome 01/12/200606/05 documented as of this encounter (statuses as of 12/17/2022) [address]28-2014 History of Past illness Narrative* Problem Noted Date Diagnosed Date Resolved Date GERD (gastroesophageal reflux disease) 07/25/2013 09/14/2017 Carpal tunnel syndrome 01/12/200606/05 documented as of this encounter (statuses as of 12/18/2022) [address]28-2014 History of Past illness Narrative* Problem Noted Date Diagnosed Date Resolved Date GERD (gastroesophageal reflux disease) 07/25/2013 09/14/2017 Carpal tunnel syndrome 01/12/200606/05 documented as of this encounter (statuses as of 01/07/2023) [address]28-2014 History of Past illness Narrative* Problem Noted Date Diagnosed Date Resolved Date GERD (gastroesophageal reflux disease) 07/25/2013 09/14/2017 Carpal tunnel syndrome 01/12/200606/05 documented as of this encounter (statuses as of 01/08/2023) [address]28-2014 History of Past illness Narrative* Problem Noted Date Diagnosed Date Resolved Date GERD (gastroesophageal reflux disease) 07/25/2013 09/14/2017 Carpal tunnel syndrome 01/12/200606/05 documented as of this encounter (statuses as of 01/10/2023) [address]28[address]2014 History of Past illness Narrative* Problem Noted Date Diagnosed Date Resolved Date GERD (gastroesophageal reflux disease) 07/25/2013 09/14/2017 Carpal tunnel syndrome 01/12/200606/05 documented as of this encounter (statuses as of 01/14/2023) [address]28-2014 History of Past illness Narrative* Problem Noted Date Diagnosed Date Resolved Date GERD (gastroesophageal reflux disease) 07/25/2013 09/14/2017 Carpal tunnel syndrome 01/12/200606/05 documented as of this encounter (statuses as of 01/20/2023) [address]28[address]2014 History of Past illness Narrative* Problem Noted Date Diagnosed Date Resolved Date GERD (gastroesophageal reflux disease) 07/25/2013 09/14/2017 Carpal tunnel syndrome 01/12/200606/05 documented as of this encounter (statuses as of 01/28/2023) [address]2014 History of Past illness Narrative* Problem Noted Date Diagnosed Date Resolved Date GERD (gastroesophageal reflux disease) 07/25/2013 09/14/2017 Carpal tunnel syndrome 01/12/200606/05 documented as of this encounter (statuses as of 02/01/2023) [address]28-2014 History of Past illness Narrative* Problem Noted Date Diagnosed Date Resolved Date GERD (gastroesophageal reflux disease) 07/25/2013 09/14/2017 Carpal tunnel syndrome 01/12/200606/05 documented as of this encounter (statuses as of 02/01/2023) [address]-2014 History of Past illness Narrative* Problem Noted Date Diagnosed Date Resolved Date GERD (gastroesophageal reflux disease) 07/25/2013 09/14/2017 Carpal tunnel syndrome 01/12/200606/05 documented as of this encounter (statuses as of 02/01/2023) [address]2014 History of Past illness Narrative* Problem Noted Date Diagnosed Date Resolved Date GERD (gastroesophageal reflux disease) 07/25/2013 09/14/2017 Carpal tunnel syndrome 01/12/200606/05 documented as of this encounter (statuses as of 02/05/2023) [address]2014 History of Past illness Narrative* Problem Noted Date Diagnosed Date Resolved Date GERD (gastroesophageal reflux disease) 07/25/2013 09/14/2017 Carpal tunnel syndrome 01/12/200606/05 documented as of this encounter (statuses as of 02/10/2023) [place] [address]2014 History of Past illness Narrative* Problem Noted Date Diagnosed Date Resolved Date GERD (gastroesophageal reflux disease) 07/25/2013 09/14/2017 Carpal tunnel syndrome 01/12/200606/05 documented as of this encounter (statuses as of 02/17/2023) [address]2014 History of Past illness Narrative* Problem Noted Date Diagnosed Date Resolved Date GERD (gastroesophageal reflux disease) 07/25/2013 09/14/2017 Carpal tunnel syndrome 01/12/200606/05 documented as of this encounter (statuses as of 02/24/2023) [address]2014 History of Past illness Narrative* Problem Noted Date Diagnosed Date Resolved Date GERD (gastroesophageal reflux disease) 07/25/2013 09/14/2017 Carpal tunnel syndrome 01/12/200606/05 documented as of this encounter (statuses as of 05/27/2023) [place] [address]2014 History of Past illness Narrative* Problem Noted Date Diagnosed Date Resolved Date GERD (gastroesophageal reflux disease) 07/25/2013 09/14/2017 Carpal tunnel syndrome 01/12/200606/05 documented as of this encounter (statuses as of 06/15/2023) [facility] note* Diagnosis Need for COVID-19 vaccine- Primary [facility] Diagnosis Need for vaccination- Primary Need for prophylactic vaccination and inoculation against unspecified single disease [facility] Diagnosis Encounter for screening mammogram for malignant neoplasm of breast- Primary Other screening mammogram [facility] Diagnosis Essential hypertension- Primary Unspecified essential hypertension [facility] Diagnosis Encounter for gynecological examination (general) (routine) without abnormal findings- Primary Encounter for screening mammogram for breast cancer 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 [facility] Diagnosis Encounter for screening mammogram for malignant neoplasm of breast Other screening mammogram [facility] Diagnosis Gastroesophageal reflux disease without esophagitis Esophageal reflux [facility] Diagnosis URI, acute- Primary Acute upper respiratory infections of unspecified site Sore throat Acute pharyngitis [facility] Diagnosis Sinobronchitis- Primary Unspecified sinusitis (chronic) [facility] Diagnosis Need for vaccination- Primary Need for prophylactic vaccination and inoculation against unspecified single disease [facility] Diagnosis Encounter for screening mammogram for malignant neoplasm of breast- Primary Other screening mammogram Dense breast tissue [facility] Diagnosis Dyskinesia of esophagus- Primary Gastroesophageal reflux disease without esophagitis Esophageal reflux Hx of acute gastritis Personal history of unspecified digestive disease [facility] Diagnosis Dyskinesia of esophagus Gastroesophageal reflux disease without esophagitis Esophageal reflux Hx of acute gastritis Personal history of unspecified digestive disease [facility] Diagnosis Dysphagia, unspecified type- Primary Chronic superficial gastritis without bleeding Atrophic gastritis without mention of hemorrhage Long-term current use of proton pump inhibitor therapy Allergic contact dermatitis due to adhesives Contact dermatitis and other eczema due to other chemical products [facility] Diagnosis Sore throat- Primary Acute pharyngitis URI, acute Acute upper respiratory infections of unspecified site Non-recurrent acute serous otitis media of right ear [facility]* Diagnosis Essential hypertension- Primary Unspecified [...] subsequent Routine general medical examination at a [facility] Wellness examination [facility] Diagnosis Pain- Primary Generalized pain [facility]* Diagnosis Arthritis of right sacroiliac joint- Primary [facility] Diagnosis Arthritis of right sacroiliac joint- Primary [facility] Diagnosis Arthritis of right sacroiliac joint- Primary [facility]* Diagnosis Plantar fasciitis- Primary Plantar fascial fibromatosis Pes planus of both feet [facility] Diagnosis Symptomatic varicose veins of both lower extremities- Primary Varicose veins of lower extremities with other complications [facility] Diagnosis Plantar fasciitis Plantar fascial fibromatosis Flat feet, bilateral [facility]* Diagnosis Pulsatile abdomen Other symptoms involving abdomen and pelvis [facility] Diagnosis Encounter for screening mammogram for malignant neoplasm of breast Other screening mammogram Dense breast tissue [facility] Diagnosis Gastroesophageal reflux disease, unspecified whether esophagitis present- Primary Gastroesophageal reflux disease with esophagitis without hemorrhage Gastric polyps Benign neoplasm of stomach Dysphagia, unspecified type [facility] Diagnosis Asymptomatic postmenopausal state documented in this encounter [facility] Diagnosis Plantar fasciitis- Primary Plantar fascial fibromatosis Flat feet, bilateral documented [facility] this encounter [facility]* Diagnosis Symptomatic varicose veins of both lower extremities Varicose veins of lower extremities with other complications documented in this encounter [facility]* Diagnosis Symptomatic varicose veins of both lower extremities- Primary Varicose veins of lower extremities with other complications [facility] Diagnosis Dyskinesia of esophagus- Primary Gastroesophageal reflux disease without esophagitis Esophageal reflux documented in this encounter [facility]* Diagnosis Rib pain on left side- Primary Chest pain, unspecified documented [facility] this [facility] Diagnosis Arthritis of right sacroiliac joint- Primary [facility] this [facility] Diagnosis Encounter for screening mammogram for malignant neoplasm of breast- Primary Other screening mammogram documented [facility] this [facility] Diagnosis Contact dermatitis, unspecified contact dermatitis type, unspecified trigger- Primary documented in this encounter [facility]* Diagnosis Gastroesophageal reflux disease without esophagitis Esophageal reflux documented in this [facility] Diagnosis URI, acute Acute upper respiratory infections of unspecified site Acute cough documented [facility] this [facility] Diagnosis Pain Generalized pain documented in this [facility]* Diagnosis Hand pain, right Pain in limb documented [facility] this [facility]* Diagnosis Arthritis of right sacroiliac joint Lumbosacral pain Lumbago [facility] this [facility] Diagnosis Sinobronchitis Unspecified sinusitis (chronic) documented [facility] this [facility]* Diagnosis Sinus congestion- Primary Other diseases of nasal cavity and sinuses Elevated blood pressure reading without diagnosis of hypertension documented [facility] this [facility] Diagnosis Encounter for gynecological examination (general) (routine) without abnormal findings- Primary Encounter for screening mammogram for breast cancer Postmenopausal atrophic vaginitis Screening for malignant neoplasm of cervix Screening for malignant neoplasm of the cervix Encounter for screening for human papillomavirus (HPV) Special screening examination for human papillomavirus (HPV) documented [facility] this encounter [facility] Diagnosis Encounter for screening mammogram for malignant neoplasm of breast Other screening mammogram documented in this encounter [facility] note* Diagnosis Primary hypertension- Primary Unspecified essential hypertension Acute pain of right knee documented in this encounter [facility] note* Diagnosis Acute pain of right knee documented in this encounter [facility] note* Diagnosis Primary hypertension- Primary Unspecified essential hypertension documented in this encounter [facility] note* Diagnosis Primary hypertension Unspecified essential hypertension documented in this encounter [facility] for referral (narrative)* Diagnostic Procedure Only (Routine) - Authorized Specialty Diagnoses / Procedures Referred By Esther baugh Referred To Contact [facility] Diagnoses Encounter for screening mammogram for malignant neoplasm of breast Procedures ELLIOT SCREENING SCREENING MAMMOGRAPHY BI 2-VIEW BREAST INC CAD Sharon Ellis APRN.MEDICAL OFFICE ASSISTANT [address] [place] [address] [facility] [address] [place] [address] Referral ID Status Reason Start Date Expiration Date Visits Requested Visits Authorized [id number] Authorized Auto-Generat ed Referral 12/10/2021 01/09/2023 1 1 [facility] for referral (narrative)* Diagnostic Procedure Only (Routine) - Pending Review Specialty Diagnoses / Procedures Referred By Esther baugh Referred To Contact [facility] Diagnoses Postmenopausal atrophic vaginitis Procedures ELLIOT SCREENING SCREENING MAMMOGRAPHY BI 2-VIEW BREAST INC CAD Tiffani Gant APRN.CNP [address] [place] [address] [facility] [address] [address] Referral ID Status Reason Start Date Expiration Date Visits Requested Visits Authorized [id number] Pending Review Auto-Generat ed Referral 01/02/2022 02/01/2023 1 1 [facility] for referral (narrative)* Diagnostic Procedure Only (Routine) - Closed Specialty Diagnoses / Procedures Referred By Contac t Referred To Contact [facility] Diagnoses Encounter for screening mammogram for malignant neoplasm of breast Procedures ELLIOT SCREENING SCREENING MAMMOGRAPHY BI 2-VIEW BREAST INC Sharon Matias ASSOCIATE PROFESSOR OF BIOSTATISTICS.MEDICAL OFFICE ASSISTANT [address] [place] [address] [facility] [address] [place] [address] Referral ID Status Reason Start Date Expiration Date V isits Requested Visits Authorized [id number] Closed Auto-Generate d Referral 12/10/2021 01/09/2023 1 1 [facility] for referral (narrative)* Diagnostic Procedure Only (Routine) - Authorized Specialty Diagnoses / Procedures Referred By Contac t Referred To Contact [facility] Diagnoses Encounter for screening mammogram for malignant neoplasm of breast Dense breast tissue Procedures ELLIOT SCREENING W SAIRA SCREENING DIGITAL BREAST TOMOSYNTHESIS BI SCREENING MAMMOGRAPHY BI 2-VIEW BREAST INC Tiffani Salcido, ASSOCIATE PROFESSOR OF BIOSTATISTICS.MEDICAL OFFICE ASSISTANT [address] [place] [address] [facility] [address] [place] [address] Referral ID Status Reason Start Date Expiration Date Visits Requested Visits Authorized [id number] Authorized Auto-Generat ed Referral 05/26/2022 06/25/2023 1 1 [facility] for referral (narrative)* Diagnostic Procedure Only (Routine) - Closed Specialty Diagnoses / Procedures Referred By Contac t Referred To Contact [facility] Diagnoses Arthritis of right sacroiliac joint Lumbosacral pain Procedures XR LUMBAR GENERAL 3V AP/LAT/L5-S1 RADEX SPINE LUMBOSACRAL 2/3 VIEWS Mavis uHghes PA-C [address] [place] [address] [place] [address] Referral ID Status Reason Start Date Expiration Date V isits Requested Visits Authorized [id number] Closed Auto-Generate d Referral 11/14/2022 12/14/2023 1 1 * Diagnostic Procedure Only (Routine) - Authorized Specialty Diagnoses / Procedures Referred By Genieac t Referred To Contact [facility] Diagnoses Pulsatile abdomen Procedures US SCREENING FOR AAA (2017) US ABDOMINAL AORTA REAL TIME SCREEN STUDY AAA Mavis Hughes PA-C [address] [place] [address] [place] [address] Referral ID Status Reason Start Date Expiration Date Visits Requested Visits Authorized [id number] Authorized Auto-Generat ed Referral 11/14/2022 12/14/2023 1 1 * Consult, Test, Treat (Routine) - Authorized Specialty Diagnoses / Procedures Referred By Esther t Referred To Contact Pain Management Diagnoses Arthritis of right sacroiliac joint Procedures CONSULT TO PAIN MGT OFFICE/OUTPATIENT NEW HIGH MDM 60-74 MINUTES Mavis Hughes PA-C [address] [place] [address] Referral ID Status Reason Start Date Expiration Date Visits Requested Visits Authorized [id number] Authorized PCP Requested Referral 11/14/2022 11/14/2023 1 1 [facility] for referral (narrative)* Diagnostic Procedure Only (Routine) - Authorized Specialty Diagnoses / Procedures Referred By Contac t Referred To Contact [facility] Diagnoses Pain Procedures XR FOOT GENERAL 3V AP/LAT/OBL BILATERAL RADEX FOOT COMPLETE MINIMUM 3 VIEWS Jt Ramachandran [address] [place] [address] [facility] [address] [place] [address] Referral ID Status Reason Start Date Expiration Date Visits Requested Visits Authorized [id number] Authorized Auto-Generat ed Referral 11/26/2022 12/26/2023 1 1 [facility] for referral (narrative)* Diagnostic Procedure Only (Routine) - Closed Specialty Diagnoses / Procedures Referred By Genieac t Referred To Contact [facility] Diagnoses Pulsatile abdomen Procedures US SCREENING FOR AAA (2017) US ABDOMINAL AORTA REAL TIME SCREEN STUDY AAA Mavis Hughes PA-C [address] [place] [address] [place] [address] Referral ID Status Reason Start Date Expiration Date V isits Requested Visits Authorized [id number] Closed Auto-Generate d Referral 11/14/2022 12/14/2023 1 1 [facility] for referral (narrative)* Diagnostic Procedure Only (Routine) - Closed Specialty Diagnoses / Procedures Referred By Esther t Referred To Contact [facility] Diagnoses Encounter for screening mammogram for malignant neoplasm of breast Dense breast tissue Procedures ELLIOT SCREENING W SAIRA SCREENING DIGITAL BREAST TOMOSYNTHESIS BI SCREENING MAMMOGRAPHY BI 2-VIEW BREAST INC Tiffani Salcido APRN.CNP [address] [place] [address] [facility] [address] [place] [address] Referral ID Status Reason Start Date Expiration Date V isits Requested Visits Authorized [id number] Closed Auto-Generate d Referral 05/26/2022 06/25/2023 1 1 [facility] for referral (narrative)* Outpatient Procedure (Routine) - Closed Specialty Diagnoses / Procedures Referred By Genieac t Referred To Contact [facility] Diagnoses Gastroesophageal reflux disease with esophagitis without hemorrhage Gastric polyps Dysphagia, unspecified type Procedures EGD DIAGNOSTIC ESOPHAGOGASTRODUODENOSC OPY TRANSORAL DIAGNOSTIC Crystal Pastrana PA-C [address] [place] [address] [facility] [address] [place] [address] Referral ID Status Reason Start Date Expiration Date V isits Requested Visits Authorized [id number] Closed Auto-Generate d Referral 07/22/2022 07/23/2023 1 1 [facility] for referral (narrative)* Outpatient Procedure (Routine) - Authorized Specialty Diagnoses / Procedures Referred By Contac t Referred To Contact [facility] Diagnoses Symptomatic varicose veins of both lower extremities Procedures US VENOUS INCOMPETENCY RONNI VAS LAB DUP-SCAN XTR VEINS COMPLETE BILATERAL STUDY Lexy Kovacs DO [address] [place] [address] [facility] [place] [address] [place] [address] Referral ID Status Reason Start Date Expiration Date Visits Requested Visits Authorized [id number] Authorized Auto-Generat ed Referral 3 02/17/2024 1 1 [facility] for referral (narrative)* Diagnostic Procedure Only (Routine) - Authorized Specialty Diagnoses / Procedures Referred By Contac t Referred To Contact [facility] Diagnoses Encounter for screening mammogram for malignant neoplasm of breast Procedures ELLIOT SCREENING W SAIRA SCREENING DIGITAL BREAST TOMOSYNTHESIS BI SCREENING MAMMOGRAPHY BI 2-VIEW BREAST INC Tiffani Salcido APRN.CNP [address] [place] [address] [facility] [address] [place] [address] Referral ID Status Reason Start Date Expiration Date Visits Requested Visits Authorized [id number] Authorized Auto-Generat ed Referral 08/27/2023 09/24/2024 1 1 T [facility] for referral (narrative)* Diagnostic Procedure Only (Routine) - Closed Specialty Diagnoses / Procedures Referred By Contac t Referred To Contact [facility] Diagnoses Pain Procedures XR FOOT GENERAL 3V AP/LAT/OBL BILATERAL RADEX FOOT COMPLETE MINIMUM 3 VIEWS Jt Ramachandran [address] [place] [address] [facility] [address] [place] [address] Referral ID Status Reason Start Date Expiration Date V isits Requested Visits Authorized [id number] Closed Auto-Generate d Referral 11/26/2022 12/26/2023 1 1 [facility] for referral (narrative)* Diagnostic Procedure Only (Urgent) - Closed Specialty Diagnoses / Procedures Referred By Contac t Referred To Contact XR IMAGING Diagnoses Tendonitis of finger Procedures XR HAND GENERAL 3V PA/LAT/OBL RIGHT RADEX HAND MINIMUM 3 VIEWS Aury Albarado PA-C [address] [place] [address] [place] [address] Referral ID Status Reason Start Date Expiration Date V isits Requested Visits Authorized [id number] Closed Auto-Generate d Referral 10/21/2022 11/20/2023 1 1 [facility] for referral (narrative)* Diagnostic Procedure Only (Routine) - Closed Specialty Diagnoses / Procedures Referred By Contac t Referred To Contact X[facility] IMAG[facility] Diagnoses Arthritis of right sacroiliac joint Lumbosacral pain Procedures XR LUMBAR GENERAL 3V AP/LAT/L5-S1 RADEX SPINE LUMBOSACRAL 2/3 VIEWS Mavis Hughes PA-C [address] [place] [address] [place] [address] Referral ID Status Reason Start Date Expiration Date V isits Requested Visits Authorized [id number] Closed Auto-Generate d Referral 11/14/2022 12/14/2023 1 1 [facility] for referral (narrative)* Diagnostic Procedure Only (Routine) - Authorized Specialty Diagnoses / Procedures Referred By Contac t Referred To Contact [facility] Diagnoses Encounter for gynecological examination (general) (routine) without abnormal findings Encounter for screening mammogram for breast cancer Procedures ELLIOT SCREENING W SAIRA SCREENING DIGITAL BREAST TOMOSYNTHESIS BI SCREENING MAMMOGRAPHY BI 2-VIEW BREAST INC [facility] Tiffani Gant, NATALIA.MEDICAL OFFICE ASSISTANT [address] [place] [address] [facility] [address] [place] [address] Referral ID Status Reason Start Date Expiration Date Visits Requested Visits Authorized [id number] Authorized Auto-Generat ed Referral 02/05/2025 1 1 [facility] for referral (narrative)* Diagnostic Procedure Only (Routine) - Closed Specialty Diagnoses / Procedures Referred By Esther baugh Referred To Contact [facility] Diagnoses Encounter for screening mammogram for malignant neoplasm of breast Procedures ELLIOT SCREENING W SAIRA SCREENING DIGITAL BREAST TOMOSYNTHESIS BI SCREENING MAMMOGRAPHY BI 2-VIEW BREAST INC [facility] Tiffani Gant, ASSOCIATE PROFESSOR OF BIOSTATISTICS.MEDICAL OFFICE ASSISTANT [address] [place] [address] [facility] [address] [place] [address] Referral ID Status Reason Start Date Expiration Date V isits Requested Visits Authorized [id number] Closed Auto-Generate d Referral 08/27/2023 09/24/2024 1 1 [facility] for referral (narrative)* Diagnostic Procedure Only (Routine) - Closed Specialty Diagnoses / Procedures Referred By Esther t Referred To Contact XR IMAGING Diagnoses Acute pain of right knee Procedures XR KNEE GENERAL 4V AP BOTH/PA BOTH/LAT/MERC RIGHT RADIOLOGIC EXAM KNEE COMPLETE 4/MORE VIEWS Lola Farris, ASSOCIATE PROFESSOR OF BIOSTATISTICS.MEDICAL OFFICE ASSISTANT [address] [place] [address] [place] [address] Referral ID Status Reason Start Date Expiration Date V isits Requested Visits Authorized [id number] Closed Auto-Generate d Referral 02/22/2024 03/23/2025 1 1 [facility] for visit Narrative* Diagnostic Procedure Only (Routine) - Closed Specialty Diagnoses / Procedures Referred By Esther t Referred To Contact BR IMAGING Diagnoses Encounter for screening mammogram for malignant neoplasm of breast Procedures ELLIOT SCREENING SCREENING MAMMOGRAPHY BI 2-VIEW BREAST INC CAD Sharon Ellis, ASSOCIATE PROFESSOR OF BIOSTATISTICS.MEDICAL OFFICE ASSISTANT [address] [place] [address] [facility] [address] [place] [address] Referral ID Status Reason Start Date Expiration Date V isits Requested Visits Authorized [id number] Closed Auto-Generate d Referral 12/10/2021 01/09/2023 1 1 [facility] for visit Narrative* Diagnostic Procedure Only (Routine) - Closed Specialty Diagnoses / Procedures Referred By Esther t Referred To Contact BR IMAGING Diagnoses Encounter for screening mammogram for malignant neoplasm of breast Dense breast tissue Procedures ELLIOT SCREENING W SAIRA SCREENING DIGITAL BREAST TOMOSYNTHESIS BI SCREENING MAMMOGRAPHY BI 2-VIEW BREAST INC CAD Tiffani Gant, ASSOCIATE PROFESSOR OF BIOSTATISTICS.MEDICAL OFFICE ASSISTANT [address] [place] [address] [facility] [address] [address] Referral ID Status Reason Start Date Expiration Date V isits Requested Visits Authorized [id number] Closed Auto-Generate d Referral 05/26/2022 06/25/2023 1 1 [facility] for visit Narrative* Outpatient Procedure (Routine) - Closed Specialty Diagnoses / Procedures Referred By Esther t Referred To Contact [facility] Diagnoses Gastroesophageal reflux disease with esophagitis without hemorrhage Gastric polyps Dysphagia, unspecified type Procedures EGD DIAGNOSTIC ESOPHAGOGASTRODUODENOSC OPY TRANSORAL DIAGNOSTIC Crystal Pastrana PA-C [address] [place] [address] [facility] [place] [address] [place] [address] Referral ID Status Reason Start Date Expiration Date V isits Requested Visits Authorized [id number] Closed Auto-Generate d Referral 07/22/2022 07/23/2023 1 1 [facility] for visit Narrative* Diagnostic Procedure Only (Routine) - Closed Specialty Diagnoses / Procedures Referred By Contac t Referred To Contact [facility] Diagnoses Pain Procedures XR FOOT GENERAL 3V AP/LAT/OBL BILATERAL RADEX FOOT COMPLETE MINIMUM 3 VIEWS Jt Ramachandran [address] [place] [address] [facility] [address] [place] [address] Referral ID Status Reason Start Date Expiration Date V isits Requested Visits Authorized [id number] Closed Auto-Generate d Referral 11/26/2022 12/26/2023 1 1 [facility] for visit Narrative* Diagnostic Procedure Only (Urgent) - Closed Specialty Diagnoses / Procedures Referred By Contac t Referred To Contact XR IMAGING Diagnoses Tendonitis of finger Procedures XR HAND GENERAL 3V PA/LAT/OBL RIGHT RADEX HAND MINIMUM 3 VIEWS Aury Albarado, PA-C [address] [place] [address] [place] [address] Referral ID Status Reason Start Date Expiration Date V isits Requested Visits Authorized [id number] Closed Auto-Generate d Referral 10/21/2022 11/20/2023 1 1 [facility] for visit Narrative* Diagnostic Procedure Only (Routine) - Closed Specialty Diagnoses / Procedures Referred By Contac t Referred To Contact XR IMAGING Diagnoses Arthritis of right sacroiliac joint Lumbosacral pain Procedures XR LUMBAR GENERAL 3V AP/LAT/L5-S1 RADEX SPINE LUMBOSACRAL 2/3 VIEWS Mavis Hughes, PA-C [address] [place] [address] [place] [address] Referral ID Status Reason Start Date Expiration Date V isits Requested Visits Authorized [id number] Closed Auto-Generate d Referral 11/14/2022 12/14/2023 1 1 [facility] for visit Narrative* Diagnostic Procedure Only (Routine) - Closed Specialty Diagnoses / Procedures Referred By Contac t Referred To Contact [facility] Diagnoses Encounter for screening mammogram for malignant neoplasm of breast Procedures ELLIOT SCREENING W SAIRA SCREENING DIGITAL BREAST TOMOSYNTHESIS BI SCREENING MAMMOGRAPHY BI 2-VIEW BREAST INC CAD Tiffani Gant, ASSOCIATE PROFESSOR OF BIOSTATISTICS.MEDICAL OFFICE ASSISTANT [address] [place] [address] [facility] [address] [place] [address] Referral ID Status Reason Start Date Expiration Date V isits Requested Visits Authorized [id number] Closed Auto-Generate d Referral 08/27/2023 09/24/2024 1 [facility] Procedure Only (Routine) - Closed Specialty Diagnoses / Procedures Referred By Esther baugh Referred To Contact XR IMAGING Diagnoses Acute pain of right knee Procedures XR KNEE GENERAL 4V AP BOTH/PA BOTH/LAT/MERC RIGHT RADIOLOGIC EXAM KNEE COMPLETE 4/MORE VIEWS Lola Farris, ASSOCIATE PROFESSOR OF BIOSTATISTICS.MEDICAL OFFICE ASSISTANT [address] [place] [address] [place] [address] Referral ID Status Reason Start Date Expiration Date V isits Requested Visits Authorized [id number] Closed Auto-Generate d Referral 02/22/2024 03/23/2025 1 1 [facility] Summary Purpose Family History No Family History Records FoundNo Family History Records FoundNo Family History Records Found Advance Directives Documents on File Type Date 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(s) 10/05/2017 7:42 AM Reason for Referral Specialty Diagnoses / Procedures Referred By Esther baugh Referred To Contact General Surgery Diagnoses Dyskinesia of esophagus Gastroesophageal reflux disease without esophagitis Hx of acute gastritis Procedures CONSULT TO GENERAL SURGERY OFFICE/OUTPATIENT [facility] 60-74 MINUTES Mavis Hughes PA-C [address] [place] [address] Referral ID Status Reason Start Date Expiration Date Visits Requested Visits Authorized [id number] Authorized PCP Requested Referral 06/02/2022 06/02/2023 1 1 Specialty Diagnoses / Procedures Referred By Esther t Referred To Contact Vascular Surgery Diagnoses Symptomatic varicose veins of both lower extremities Procedures CONSULT TO VASCULAR SURGERY OFFICE/OUTPATIENT [facility] 60-74 MINUTES Mavis Hughes PA-C [address] [place] [address] Referral ID Status Reason Start Date Expiration Date Visits Requested Visits Authorized [id number] Authorized PCP Requested Referral 3 01/06/2024 1 1 Specialty Diagnoses / Procedures Referred By Contac t Referred To Contact [facility] Diagnoses Arthritis of right sacroiliac joint Procedures CONSULT TO PHYSICAL THERAPY PHYSICAL THERAPY EVALUATION HIGH COMPLEX 45 MINS Mavis Hughes PA-C [address] [place] [address] [facility] [place] [address] [place] [address] Referral ID Status Reason Start Date Expiration Date V isits Requested Visits Authorized [id number] Closed Auto-Generate d Referral 11/20/2022 03/29/2023 99 99 Medications Administered Section Inactive Administered Medications - up to 3 most recent administrations Medication Order MAR Action Action Date Dose Rate Site benzocaine 20% 1 [place] (TOPEX) 1 [place], TOPICAL, DIRECTED, Starting on Thu10/20/22 at 0930, Until Thu10/20/22 at 1329, DOSING DIRECTED BY PHYSICIAN FOR PROCEDURAL SEDATION ONLY - Pharmaceutical Waste: Aerosol -, Intraprocedure Given 10/20/2022 9:01 AM EDT 1 [place] diphenhydrAMINE 12.5-50 mg injection (BENADRYL) 12.5-50 mg, [...] section and content) DATE CREATED AUTHOR 06/13/2020 [facility] DATE CREATED AUTHOR AUTHOR'S ORGANIZ ATION 04/19/2024 [facility] DATE CREATED AUTHOR AUTHOR'S ORGANIZ ATION 04/29/2024 [facility] Source Comments (unrecognize d section and content) In the event this informatio n is protected by the Federal Confidentiality of Alcohol and Drug Abuse Patient Records regulations: The Federal rules restrict any use of the information to criminally investigate or prosecute any alcohol or drug abuse patient.[facility] the event this information is protected by the Federal Confidentiality of Alcohol and Drug Abuse Patient Records regulations: The Federal rules restrict any use of the information to criminally investigate or prosecute any alcohol or drug abuse patient.[facility] the event this information is protected by the Federal Confidentiality of Alcohol and Drug Abuse Patient Records regulations: The Federal rules restrict any use of the information to criminally investigate or prosecute any alcohol or drug abuse patient.[facility] the event this information is protected by the Federal Confidentiality of Alcohol and Drug Abuse Patient Records regulations: The Federal rules restrict any use of the information to criminally investigate or prosecute any alcohol or drug abuse patient.[facility] the event this information is protected by the Federal Confidentiality of Alcohol and Drug Abuse Patient Records regulations: The Federal rules restrict any use of the information to criminally investigate or prosecute any alcohol or drug abuse patient.[facility] the event this information is protected by the Federal Confidentiality of Alcohol and Drug Abuse Patient Records regulations: The Federal rules restrict any use of the information to criminally investigate or prosecute any alcohol or drug abuse patient.[facility] the event this information is protected by the Federal Confidentiality of Alcohol and Drug Abuse Patient Records regulations: The Federal rules restrict any use of the information to criminally investigate or prosecute any alcohol or drug abuse patient.[facility] the event this information is protected by the Federal Confidentiality of Alcohol and Drug Abuse Patient Records regulations: The Federal rules restrict any use of the information to criminally investigate or prosecute any alcohol or drug abuse patient.[facility] Hospital[facility] the event this information is protected by the Federal Confidentiality of Alcohol and Drug Abuse Patient Records regulations: The Federal rules restrict any use of the information to criminally investigate or prosecute any alcohol or drug abuse patient.[facility] Hospital[facility] the event this information is protected by the Federal Confidentiality of Alcohol and Drug Abuse Patient Records regulations: The Federal rules restrict any use of the information to criminally investigate or prosecute any alcohol or drug abuse patient.[facility] Hospital[facility] the event this information is protected by the Federal Confidentiality of Alcohol and Drug Abuse Patient Records regulations: The Federal rules restrict any use of the information to criminally investigate or prosecute any alcohol or drug abuse patient.[facility] Hospital[facility] the event this information is protected by the Federal Confidentiality of Alcohol and Drug Abuse Patient Records regulations: The Federal rules restrict any use of the information to criminally investigate or prosecute any alcohol or drug abuse patient.[facility] Hospital[facility] the event this information is protected by the Federal Confidentiality of Alcohol and Drug Abuse Patient Records regulations: The Federal rules restrict any use of the information to criminally investigate or prosecute any alcohol or drug abuse patient.[facility] Hospital[facility] the event this information is protected by the Federal Confidentiality of Alcohol and Drug Abuse Patient Records regulations: The Federal rules restrict any use of the information to criminally investigate or prosecute any alcohol or drug abuse patient.[facility] Hospital[facility] the event this information is protected by the Federal Confidentiality of Alcohol and Drug Abuse Patient Records regulations: The Federal rules restrict any use of the information to criminally investigate or prosecute any alcohol or drug abuse patient.[facility] Hospital[facility] the event this information is protected by the Federal Confidentiality of Alcohol and Drug Abuse Patient Records regulations: The Federal rules restrict any use of the information to criminally investigate or prosecute any alcohol or drug abuse patient.[facility] HospitalIn the event this information is protected by the Federal Confidentiality of Alcohol and Drug Abuse Patient Records regulations: The Federal rules restrict any use of the information to criminally investigate or prosecute any alcohol or drug abuse patient.[facility] HospitalIn the event this information is protected by the Federal Confidentiality of Alcohol and Drug Abuse Patient Records regulations: The Federal rules restrict any use of the information to criminally investigate or prosecute any alcohol or drug abuse patient.[facility] HospitalIn the event this information is protected by the Federal Confidentiality of Alcohol and Drug Abuse Patient Records regulations: The Federal rules restrict any use of the information to criminally investigate or prosecute any alcohol or drug abuse patient.[facility] HospitalIn the event this information is protected by the Federal Confidentiality of Alcohol and Drug Abuse Patient Records regulations: The Federal rules restrict any use of the information to criminally investigate or prosecute any alcohol or drug abuse patient.[facility] HospitalIn the event this information is protected by the Federal Confidentiality of Alcohol and Drug Abuse Patient Records regulations: The Federal rules restrict any use of the information to criminally investigate or prosecute any alcohol or drug abuse patient.[facility] HospitalIn the event this information is protected by the Federal Confidentiality of Alcohol and Drug Abuse Patient Records regulations: The Federal rules restrict any use of the information to criminally investigate or prosecute any alcohol or drug abuse patient.[facility] HospitalIn the event this information is protected by the Federal Confidentiality of Alcohol and Drug Abuse Patient Records regulations: The Federal rules restrict any use of the information to criminally investigate or prosecute any alcohol or drug abuse patient.[facility] HospitalIn the event this information is protected by the Federal Confidentiality of Alcohol and Drug Abuse Patient Records regulations: The Federal rules restrict any use of the information to criminally investigate or prosecute any alcohol or drug abuse patient.[facility] HospitalIn the event this information is protected by the Federal Confidentiality of Alcohol and Drug Abuse Patient Records regulations: The Federal rules restrict any use of the information to criminally investigate or prosecute any alcohol or drug abuse patient.[facility] HospitalIn the event this information is protected by the Federal Confidentiality of Alcohol and Drug Abuse Patient Records regulations: The Federal rules restrict any use of the information to criminally investigate or prosecute any alcohol or drug abuse patient.[facility] HospitalIn the event this information is protected by the Federal Confidentiality of Alcohol and Drug Abuse Patient Records regulations: The Federal rules restrict any use of the information to criminally investigate or prosecute any alcohol or drug abuse patient.[facility] HospitalIn the event this information is protected by the Federal Confidentiality of Alcohol and Drug Abuse Patient Records regulations: The Federal rules restrict any use of the information to criminally investigate or prosecute any alcohol or drug abuse patient.[facility] HospitalIn the event this information is protected by the Federal Confidentiality of Alcohol and Drug Abuse Patient Records regulations: The Federal rules restrict any use of the information to criminally investigate or prosecute any alcohol or drug abuse patient.[facility] HospitalIn the event this information is protected by the Federal Confidentiality of Alcohol and Drug Abuse Patient Records regulations: The Federal rules restrict any use of the information to criminally investigate or prosecute any alcohol or drug abuse patient.[facility] HospitalIn the event this information is protected by the Federal Confidentiality of Alcohol and Drug Abuse Patient Records regulations: The Federal rules restrict any use of the information to criminally investigate or prosecute any alcohol or drug abuse patient.[facility] HospitalIn the event this information is protected by the Federal Confidentiality of Alcohol and Drug Abuse Patient Records regulations: The Federal rules restrict any use of the information to criminally investigate or prosecute any alcohol or drug abuse patient.[facility] HospitalIn the event this information is protected by the Federal Confidentiality of Alcohol and Drug Abuse Patient Records regulations: The Federal rules restrict any use of the information to criminally investigate or prosecute any alcohol or drug abuse patient.[facility] HospitalIn the event this information is protected by the Federal Confidentiality of Alcohol and Drug Abuse Patient Records regulations: The Federal rules restrict any use of the information to criminally investigate or prosecute any alcohol or drug abuse patient.[facility] HospitalIn the event this information is protected by the Federal Confidentiality of Alcohol and Drug Abuse Patient Records regulations: The Federal rules restrict any use of the information to criminally investigate or prosecute any alcohol or drug abuse patient.[facility] HospitalIn the event this information is protected by the Federal Confidentiality of Alcohol and Drug Abuse Patient Records regulations: The Federal rules restrict any use of the information to criminally investigate or prosecute any alcohol or drug abuse patient.[facility] HospitalIn the event this information is protected by the Federal Confidentiality of Alcohol and Drug Abuse Patient Records regulations: The Federal rules restrict any use of the information to criminally investigate or prosecute any alcohol or drug abuse patient.[facility] HospitalIn the event this information is protected by the Federal Confidentiality of Alcohol and Drug Abuse Patient Records regulations: The Federal rules restrict any use of the information to criminally investigate or prosecute any alcohol or drug abuse patient.[facility] HospitalIn the event this information is protected by the Federal Confidentiality of Alcohol and Drug Abuse Patient Records regulations: The Federal rules restrict any use of the information to criminally investigate or prosecute any alcohol or drug abuse patient.[facility] HospitalIn the event this information is protected by the Federal Confidentiality of Alcohol and Drug Abuse Patient Records regulations: The Federal rules restrict any use of the information to criminally investigate or prosecute any alcohol or drug abuse patient.[facility] HospitalIn the event this information is protected by the Federal Confidentiality of Alcohol and Drug Abuse Patient Records regulations: The Federal rules restrict any use of the information to criminally investigate or prosecute any alcohol or drug abuse patient.[facility] HospitalIn the event this information is protected by the Federal Confidentiality of Alcohol and Drug Abuse Patient Records regulations: The Federal rules restrict any use of the information to criminally investigate or prosecute any alcohol or drug abuse patient.[facility] HospitalIn the event this information is protected by the Federal Confidentiality of Alcohol and Drug Abuse Patient Records regulations: The Federal rules restrict any use of the information to criminally investigate or prosecute any alcohol or drug abuse patient.[facility] HospitalIn the event this information is protected by the Federal Confidentiality of Alcohol and Drug Abuse Patient Records regulations: The Federal rules restrict any use of the information to criminally investigate or prosecute any alcohol or drug abuse patient.[facility] HospitalIn the event this information is protected by the Federal Confidentiality of Alcohol and Drug Abuse Patient Records regulations: The Federal rules restrict any use of the information to criminally investigate or prosecute any alcohol or drug abuse patient.[facility] HospitalIn the event this information is protected by the Federal Confidentiality of Alcohol and Drug Abuse Patient Records regulations: The Federal rules restrict any use of the information to criminally investigate or prosecute any alcohol or drug abuse patient.[facility] HospitalIn the event this information is protected by the Federal Confidentiality of Alcohol and Drug Abuse Patient Records regulations: The Federal rules restrict any use of the information to criminally investigate or prosecute any alcohol or drug abuse patient.[facility] HospitalIn the event this information is protected by the Federal Confidentiality of Alcohol and Drug Abuse Patient Records regulations: The Federal rules restrict any use of the information to criminally investigate or prosecute any alcohol or drug abuse patient.[facility] HospitalIn the event this information is protected by the Federal Confidentiality of Alcohol and Drug Abuse Patient Records regulations: The Federal rules restrict any use of the information to criminally investigate or prosecute any alcohol or drug abuse patient.[facility] HospitalIn the event this information is protected by the Federal Confidentiality of Alcohol and Drug Abuse Patient Records regulations: The Federal rules restrict any use of the information to criminally investigate or prosecute any alcohol or drug abuse patient.[facility] HospitalIn the event this information is protected by the Federal Confidentiality of Alcohol and Drug Abuse Patient Records regulations: The Federal rules restrict any use of the information to criminally investigate or prosecute any alcohol or drug abuse patient.[facility] HospitalIn the event this information is protected by the Federal Confidentiality of Alcohol and Drug Abuse Patient Records regulations: The Federal rules restrict any use of the information to criminally investigate or prosecute any alcohol or drug abuse patient.[facility] HospitalIn the event this information is protected by the Federal Confidentiality of Alcohol and Drug Abuse Patient Records regulations: The Federal rules restrict any use of the information to criminally investigate or prosecute any alcohol or drug abuse patient.[facility] HospitalIn the event this information is protected by the Federal Confidentiality of Alcohol and Drug Abuse Patient Records regulations: The Federal rules restrict any use of the information to criminally investigate or prosecute any alcohol or drug abuse patient.[facility] HospitalIn the event this information is protected by the Federal Confidentiality of Alcohol and Drug Abuse Patient Records regulations: The Federal rules restrict any use of the information to criminally investigate or prosecute any alcohol or drug abuse patient.[facility] the event this information is protected by the Federal Confidentiality of Alcohol and Drug Abuse Patient Records regulations: The Federal rules restrict any use of the information to criminally investigate or prosecute any alcohol or drug abuse patient.[facility] the event this information is protected by the Federal Confidentiality of Alcohol and Drug Abuse Patient Records regulations: The Federal rules restrict any use of the information to criminally investigate or prosecute any alcohol or drug abuse patient.[facility] the event this information is protected by the Federal Confidentiality of Alcohol and Drug Abuse Patient Records regulations: The Federal rules restrict any use of the information to criminally investigate or prosecute any alcohol or drug abuse patient.[facility] HospitalIn the event this information is protected by the Federal Confidentiality of Alcohol and Drug Abuse Patient Records regulations: The Federal rules restrict any use of the information to criminally investigate or prosecute any alcohol or drug abuse patient.[facility] HospitalIn the event this information is protected by the Federal Confidentiality of Alcohol and Drug Abuse Patient Records regulations: The Federal rules restrict any use of the information to criminally investigate or prosecute any alcohol or drug abuse patient.[facility] HospitalIn the event this information is protected by the Federal Confidentiality of Alcohol and Drug Abuse Patient Records regulations: The Federal rules restrict any use of the information to criminally investigate or prosecute any alcohol or drug abuse patient.[facility] HospitalIn the event this information is protected by the Federal Confidentiality of Alcohol and Drug Abuse Patient Records regulations: The Federal rules restrict any use of the information to criminally investigate or prosecute any alcohol or drug abuse patient.[facility] HospitalIn the event this information is protected by the Federal Confidentiality of Alcohol and Drug Abuse Patient Records regulations: The Federal rules restrict any use of the information to criminally investigate or prosecute any alcohol or drug abuse patient.[facility] HospitalIn the event this information is protected by the Federal Confidentiality of Alcohol and Drug Abuse Patient Records regulations: The Federal rules restrict any use of the information to criminally investigate or prosecute any alcohol or drug abuse patient.[facility] Reason for Visit (unrecogniz ed section and content) Reason Comments Physical Therapy Specialty Diagnoses / Procedures Referred By Esther baugh Referred To Contact [facility] Diagnoses Arthritis of right sacroiliac joint Procedures CONSULT TO PHYSICAL THERAPY PHYSICAL THERAPY EVALUATION HIGH COMPLEX 45 MINS Mavis Hughes PA-C [address] [place] [address] [facility] [place] [address] [place] [address] Referral ID Status Reason Start Date Expiration Date Visits Requested Visits Authorized [id number] Authorized Auto-Generat ed Referral 11/20/2022 03/29/2023 99 [...] HIGH MDM 60-74 MINUTES Mavis Hughes PA-C [address] [place] [address] Referral ID Status Reason Start Date Expiration Date V isits Requested Visits Authorized [id number] Closed PCP Requested Referral 06/02/2022 06/02/2023 1 [...] TIME SCREEN STUDY AAA Mavis Hughes PA-C [address] [place] [address] [place] [address] Referral ID Status Reason Start Date Expiration Date V isits Requested Visits Authorized [id number] Closed Auto-Generate d Referral 11/14/2022 12/14/2023 1 1 Reason Comments New Patient Specialty Diagnoses / Procedures Referred By Esther baugh Referred To Contact Vascular Surgery Diagnoses Symptomatic varicose veins of both lower extremities Procedures CONSULT TO VASCULAR SURGERY OFFICE/OUTPATIENT NEW HIGH MDM 60-74 MINUTES Mavis Hughes PA-C [address] [place] [address] Referral ID Status Reason Start Date Expiration Date V isits Requested Visits Authorized [id number] Closed PCP Requested Referral 01/06/2023 01/06/2024 1 1 Reason Comments Established Patient Reason Comments Pain L side rib pain x1 w chilkoot Reason Comments Wellness Reason Comments Derm Problem rash Reason Onset Date Comments Refill Request 12/14/2023 Reason Comments Appointment Patient Update Reason Comments Hypertension Blood pressure follo w up Reason Comments Well Woman Reason Comments Recheck BP check Reason Comments Blood Pressure Reason Onset Date Comments Refill Request 08/27/2024 Care Teams (unrecognized sec tion and content) Debit Agent Relationship Specialty Start Date End Date Mavis Hughes PA-C [address] [place] [address] PCP - General Family Practice 09/14/17 Debit Agent Relationship Specialty Start Date End Date Mavis Hughes PA-C [address] [place] [address] PCP - General Family Practice 09/14/17 Debit Agent Relationship Specialty Start Date End Date Mavis Hughes PA-C [address] [place] [address] PCP - General Family Practice 09/14/17 Debit Agent Relationship Specialty Start Date End Date Mavis Hughes PA-C [address] [place] [address] PCP - General Family Medicine 09/14/17 Debit Agent Relationship Specialty Start Date End Date Mavis Hughes PA-C [address] [place] [address] PCP - General Family Medicine 09/14/17 Debit Agent Relationship Specialty Start Date End Date Mavis Hughes PA-C [address] [place] [address] PCP - General Family Medicine 09/14/17 Debit Agent Relationship Specialty Start Date End Date Mavis Hughes PA-C [address] [place] [address] PCP - General Family Medicine 09/14/17 Debit Agent Relationship Specialty Start Date End Date Mavis Hughes PA-C [address] [place] [address] PCP - General Family Medicine 09/14/17 Debit Agent Relationship Specialty Start Date End Date Mavis Hughes PA-C [address] [place] [address] PCP - General Family Medicine 09/14/17 Debit Agent Relationship Specialty Start Date End Date Mavis Hughes PA-C [address] [place] [address] PCP - General Family Medicine 09/14/17 Debit Agent Relationship Specialty Start Date End Date Mavis Hughes PA-C [address] [place] [address] PCP - General Family Medicine 09/14/17 Debit Agent Relationship Specialty Start Date End Date Mavis Hughes PA-C [address] [facility] [place] [address] PCP - General Family Medicine 09/14/17 Debit Agent Relationship Specialty Start Date End Date Mavis Hughes PA-C [address] [facility] [address] PCP - General Family Medicine 09/14/17 Debit Agent Relationship Specialty Start Date End Date Eugenio Peralta MD [address] [place] [address] PCP - General Family Medicine 08/20/22 Debit Agent Relationship Specialty Start Date End Date Eugenio Peralta MD [address] [place] [address] PCP - General Family Medicine 08/20/22 Debit Agent Relationship Specialty Start Date End Date Eugenio Peralta MD [address] [place] [address] PCP - General Family Medicine 08/20/22 Debit Agent Relationship Specialty Start Date End Date Eugenio Peralta MD [address] [place] [address] PCP - General Family Medicine 08/20/22 Debit Agent Relationship Specialty Start Date End Date Eugenio Peralta MD [address] [place] [address] PCP - General Family Medicine 08/20/22 Debit Agent Relationship Specialty Start Date End Date Eugenio Peralta MD [address] [place] [address] PCP - General Family Medicine 08/20/22 Debit Agent Relationship Specialty Start Date End Date Eugenio Peralta MD [address] [place] [address] PCP - General Family Medicine 08/20/22 Debit Agent Relationship Specialty Start Date End Date Eugenio Peralta MD [address] [place] [address] PCP - General Family Medicine 08/20/22 Debit Agent Relationship Specialty Start Date End Date Eugenio Peralta MD [address] [place] [address] PCP - General Family Medicine 08/20/22 Debit Agent Relationship Specialty Start Date End Date Eugenio Peralta MD [address] [place] [address] PCP - General Family Medicine 08/20/22 Debit Agent Relationship Specialty Start Date End Date Eugenio Peralta MD [address] [place] [address] PCP - General Family Medicine 08/20/22 Debit Agent Relationship Specialty Start Date End Date Eugenio Peralta MD [address] [place] [address] PCP - General Family Medicine 08/20/22 Debit Agent Relationship Specialty Start Date End Date Eugenio Peralta MD [address] [place] [address] PCP - General Family Medicine 08/20/22 Debit Agent Relationship Specialty Start Date End Date Eugenio Peralta MD [address] [place] [address] PCP - General Family Medicine 08/20/22 Debit Agent Relationship Specialty Start Date End Date Eugenio Peralta MD [address] [place], [place] [address] PCP - General Family Medicine 08/20/22 Debit Agent Relationship Specialty Start Date End Date Eugenio Peralta MD [address] [place], [place] [address] PCP - General Family Medicine 08/20/22 Debit Agent Relationship Specialty Start Date End Date Eugenio Peralta MD [address] [place] [address] PCP - General Family Medicine 08/20/22 Debit Agent Relationship Specialty Start Date End Date Eugenio Peralta MD [address] [place] [address] PCP - General Family Medicine 08/20/22 Debit Agent Relationship Specialty Start Date End Date Eugenio Peralta MD [address] [place] [address] PCP - General Family Medicine 08/20/22 Debit Agent Relationship Specialty Start Date End Date Eugenio Peralta MD [address] [place] [address] PCP - General Family Medicine 08/20/22 Debit Agent Relationship Specialty Start Date End Date Eugenio Peralta MD [address] [place] [address] PCP - General Family Medicine 08/20/22 Debit Agent Relationship Specialty Start Date End Date Eugenio Peralta MD [address] [place] [address] PCP - General Family Medicine 08/20/22 Debit Agent Relationship Specialty Start Date End Date Eugenio Peralta MD [address] [place], [place] [address] PCP - General Family Medicine 08/20/22 Debit Agent Relationship Specialty Start Date End Date Eugenio Peralta MD [address] [place], [place] [address] PCP - General Family Medicine 08/20/22 Debit Agent Relationship Specialty Start Date End Date Eugenio Peralta MD [address] [place] [address] PCP - General Family Medicine 08/20/22 Debit Agent Relationship Specialty Start Date End Date Mavis Hughes PA-C [address] [place] [address] PCP - General Family Medicine 09/14/17 08/19/22 Debit Agent Relationship Specialty Start Date End Date Eugenio Peralta MD [address] [place] [address] PCP - General Family Medicine 08/20/22 Debit Agent Relationship Specialty Start Date End Date Eugenio Peralta MD [address] [place] [address] PCP - General Family Medicine 08/20/22 Debit Agent Relationship Specialty Start Date End Date Eugenio Peralta MD [address] [place] [address] PCP - General Family Medicine 08/20/22 Debit Agent Relationship Specialty Start Date End Date Eugenio Peralta MD [address] [place] [address] PCP - General Family Medicine 08/20/22 Debit Agent Relationship Specialty Start Date End Date Eugenio Peralta MD [address] [place] [address] PCP - General Family Medicine 08/20/22 Debit Agent Relationship Specialty Start Date End Date Eugenio Peralta MD [address] [place] [address] PCP - General [facility] 08/20/22 Lola Farris APRN.MEDICAL OFFICE ASSISTANT [address] [place], [place] [address] [facility] 03/07/24 aNtalia Monge APRN.MEDICAL OFFICE ASSISTANT [address] [place] [address] [facility] 03/07/24 Debit Agent Relationship Specialty Start Date End Date Eugenio Peralta MD [address] [place], [place] [address] PCP - General Family Medicine 08/20/22 Lola Farris APRN.MEDICAL OFFICE ASSISTANT [address] [place] [address] [facility] 03/07/24 Natalia Monge APRN.MEDICAL OFFICE ASSISTANT [address] [place], [place] [address] [facility] 03/07/24 FOR RECORDS PERTAINING TO [...] BE BASED ON THE PRIMARY CLINICAL RECORDS. [employer] [facility]. provides no warranty or guarantee of the accuracy or completeness of information in this document.
[2024-10-08 06:05] LABS: Base Excess -5 mmol/L (-2 to +2); PO2 105 mmHG (75-100); SITE Not entered; SO2 98 % (95-99)
[2024-10-08] MEDS: Propofol 10MG/Ml 1,000 MG/100 ML Bottle 5.4 MG CONT INF ×2 (06:45→16:07)
--- NOTE | 2024-10-08 06:54 | ECHOCS_ITS ---
Reason For Study Reason For Study: STEMI Procedure This was a 2D Doppler, Color Flow transthoracic echocardiogram. The study was technically difficult. The patient was scanned supine. Contrast injection was performed. Patient was on a ventillator during exam. Exam performed portable in ICU/CCU. Left Ventricle The LV ejection fraction is 20 %. Severe segmental systolic dysfunction (see wall motion). Stage 3 diastolic dysfunction. There are regional wall motion abnormalities as specified. Mid- Inferior: Hypokinetic. Septal [place] : Hypokinetic. Mid-inferoseptal : Hypokinetic. Posterior-Basal: Hypokinetic. Right Ventricle Mild global right ventricular systolic dysfunction. Atria Normal left atrium. Mitral Valve The mitral valve is structurally normal. No prolapse or stenosis seen. No mitral valve insufficiency. Tricuspid Valve The tricuspid valve is not well visualized. Unable to estimate RV systolic pressure due to insufficient tricuspid regurgitant envelope. Aortic Valve The aortic valve is not well visualized in the short axis view. Pulmonic Valve The pulmonic valve is not well visualized. No pulmonic valve insufficiency. Great Vessels Normal sized aortic root. No collapse of the inferior vena cava. Pericardium/Pleural Epicardial fat. Medication Diluted definity 2.5ml given slow IV push to enhance endocardial definition. MMode/2D Measurements & Calculations LVIDd: 4.5 cm IVSd: 1.4 cm LVOT diam: 1.9 cm LVIDs: 3.8 cm LVPWd: 1.2 cm RVDd: 3.0 cm FS: 15.3 % LVOT area: 3.0 cm2 asc Aorta Diam: 3.5 cm LAV(MOD-bp): 20.7 ml LVAd ap4: 39.6 cm2 LAV(MOD-bp) Indexed: 10.4 ml/m2 LVLd ap4: 8.6 cm LAV(MOD-sp2): 26.3 ml EDV(MOD-sp4): 147.9 ml LAV(MOD-sp4): 13.2 ml EDV(sp4-el): 153.9 ml LVAs ap4: 33.3 cm2 LVLs ap4: 8.1 cm ESV(MOD-sp4): 109.3 ml ESV(sp4-el): 115.5 ml EF(MOD-sp4): 26.1 % EF(sp4-el): 24.9 % LVAd ap2: 32.4 cm2 SV(MOD-sp4): 38.6 ml SV(MOD-sp2): 36.5 ml LVLd ap2: 8.0 cm SI(MOD-sp4): 19.5 ml/m2 SI(MOD-sp2): 18.4 ml/m2 EDV(MOD-sp2): 108.7 ml EDV(sp2-el): 112.1 ml LVAs ap2: 25.4 cm2 LVLs ap2: 7.4 cm ESV(MOD-sp2): 72.2 ml ESV(sp2-el): 73.7 ml EF(MOD-sp2): 33.6 % SV(sp4-el): 38.4 ml Ao sinus diam: 3.[address] Junction: 3.0 cm LA dimension(2D): 3.1 cm LA A4 area: 7.8 cm2 RA A4 area: 10.5 cm2 TAPSE: 1.1 cm Doppler Measurements & Calculations MV A max joseph: 77.4 cm/sec Lat Peak E' Joseph: 9.4 cm/sec Med Peak E' Joseph: 6.4 cm/sec Ao V2 max: 93.4 cm/sec LV V1 max: 75.1 cm/sec SV(LVOT): 33.5 ml Ao max P.5 mmHg LV V1 max P.3 mmHg Ao V2 mean: 66.9 cm/sec LV V1 mean P.3 mmHg Ao mean P.0 mmHg LV V1 mean: 52.3 cm/sec Ao V2 VTI: 14.9 cm LV V1 VTI: 11.3 cm AV (velocity ratio): 0.76 TOMASA(I,D): 2.3 cm2 TOMASA(V,D): 2.4 cm2 PA V2 max: 72.5 cm/sec ECHO/Echo Complete W/ Contrast Interpretation Summary The LV ejection fraction is 20 %. Severe segmental systolic dysfunction (see wall motion). Stage 3 diastolic dysfunction. No collapse of the inferior vena cava. Ordering Physician: Dylan Soni Performed By: Mami Harris RDCS
--- NOTE | 2024-10-08 07:05 | RAD_ITS ---
PROCEDURE: ABDOMEN SINGLE VIEW (PORTABLE) 10/08/2024 REASON FOR EXAM: POST INTUBATION TECHNIQUE: ABDOMEN SINGLE VIEW (PORTABLE) COMPARISON: None. FINDINGS: Hardware: Partially visualized gastric tube with side hole and tip overlying the expected region of the body of the stomach. Bowel gas: The visualized bowel loops are normal caliber. Bones: There are degenerative changes of the spine. Other: See same day chest radiograph for discussion of bilateral pulmonary opacities. RAD/Abdomen Single View (Portable) IMPRESSION: Gastric tube placement as described. Reading Location: [id number]
--- NOTE | 2024-10-08 07:05 | RAD_ITS ---
PROCEDURE: CHEST 1 VIEW (PORTABLE) 10/08/2024 REASON FOR EXAM: INTUBATION TECHNIQUE: Frontal view of the chest. COMPARISON: Chest radiograph 05/24/2019. FINDINGS: Hardware: Endotracheal tube approximately 3.5 cm above the level of the irish. Partially visualized gastric tube with side hole and tip coursing below the level of the diaphragm. Heart: The heart size is normal. Lungs: Fluffy bilateral airspace opacities, [id number]. No large pleural effusion or pneumothorax. Bones: Degenerative changes are identified within the thoracic spine. RAD/Chest 1 View (Portable) IMPRESSION: 1. Support devices as described. 2. Fluffy bilateral airspace opacities, compatible with pneumonitis/pneumonia. Reading Location: [id number]
--- NOTE | 2024-10-08 07:26 | EKG12_ITS ---
Test Reason : DYSRHYTHMIA Blood Pressure : */* mmHG Vent. Rate : 69 BPM Atrial Rate : 69 BPM P-R Int : 190 ms QRS Dur : 90 ms QT Int : 410 ms P-R-T Axes : 16 -17 -73 degrees QTcB Int : 439 ms Normal sinus rhythm Inferior infarct , age undetermined ST & Marked T wave abnormality, consider anterolateral ischemia Abnormal ECG Confirmed by Primo Osorio ([id number]), make up editor LEO CROCKER ([id number]) on 12/05/2024 9:54:14 AM Referred By: Confirmed By: Primo Osorio
--- NOTE | 2024-10-08 07:34 | NURSING ---
Patient came up from the laboratory aide with propofol running at 10 mcg/kg/min. Order placed upon arrival to unit, bottle scanned.
--- NOTE | 2024-10-08 07:42 | NURSING ---
While getting patient settled upon arrival from laboratory manager, she made multiple attempts to touch ET tube and OG. Bilateral soft wrist restraints applied to maintain tube safety.
[2024-10-08] MEDS: fentaNYL drip 100 ML 5 MCG CONT INF (07:58)
[2024-10-08 09:07] LABS: CPK Total, Creatine Kinase 81 U/L (24-195); Triglycerides 234 mg/dL
--- OUTSIDE RECORDS SUMMARY | 2024-10-08 09:12 | XMS RPT_ITS | CCD ---
Author Organization [facility] Care Team Providers Care Anode Adjuster Name Role Phone EUGENIO PATEL Attending Unavailable EUGENIO PATEL Primary Care Unavailable EUGENIO PATEL Admitting Unavailable EUGENIO PATEL Attending Unavailable EUGENIO PATEL Primary Care Unavailable EUGENIO PATEL Admitting Unavailable Mavis Hughes PA-C Primary Care Provider Mavis Hughes PA-C Primary Care Provider Mavis Hughes PA-C Primary Care Provider Mavis Hughes PA-C Primary Care Provider Eugenoi Peralta MD Primary Care Provider Eugenio Peralta MD Primary Care Provider Mavis Hughes PA-C Primary Care Provider Brenton KITCHEN CHEF.Lola DE LA O Unavailable Jessica KITCHEN CHEF.Natalia DE LA O A Unavailable EUGENIO PERALTA Primary Care Unavailable LOLA [...] Attending Unavailable EUGENIO PERALTA Primary Care Unavailable FABIAN, EUGENIO Hanson Primary Care Unavailable FABIAN, EUGENIO Hanson Primary Care Unavailable ALFREDA, TIFFANI Referring Unavailable FABIAN, EUGENIO J Referring Unavailable REJI MORGAN Attending Unavailable FABIAN, EUGENIO Hanson Primary Care Unavailable FABIAN, EUGENIO Hanson Primary Care Unavailable ALFREDA, TIFFANI Attending Unavailable Harrison Cross Attending Unavailable Fabian, Eugenio Primary Care Unavailable Weber, Rebecca Referring Unavailable Weber, Rebecca Attending Unavailable Fabian, Eugenio Primary Care Unavailable Weber, Rebecca Referring Unavailable Fausto, José Miguel Attending Unavailable Maywood, Eugenio Primary Care Unavailable Beverly, José Miguel Attending Unavailable Fabian, Eugenio Referring Unavailable Weber, Rebecca Attending Unavailable Maywood, Eugenio Referring Unavailable Suppan KITCHEN CHEF.BODY AND FRAME TECHNICIAN, Natalia A Unavailable [phone] Fabian YOU, Dr. Becker Primary Care Provider Dr. Brando Crooks DO Emergency Provider Amrik YOU, Dr. Prado Other Provider Unavailable Dr. Dylan Soni DO Admit Provider [phone] Dr. Dylan Soni DO Attending Provider Allergies Allergy Classification Reported Allergen(s) Allergy Type Date of Onset Reaction(s) Facility (20 sources) POISON AKANKSHA EXTRACT; Translations: [POISON AKANKSHA] Drug Allergy 07-28-2005 [facility] Work Phone: (20 sources) Adhesive Tape-Silicones; Translations: [ADHESIVE TAPE-SILICONES] Propensity to adverse reactions to drug 10-28-[address] [facility] Work Phone: Medications Current Medications Medication Drug Class(es) Dates Sig (Normalized) Sig (Original) amoxicillin 875 mg / clavulanate 125 mg oral tablet (1 source) Penicillin-class Antibacterial Start: 11-01-2022 End: 11-08-2022 take 1 tablet by mouth twice daily amoxicillin-clavula rocco acid (AUGMENTIN) 875-125 mg per tablet Take 1 tablet by mouth twice daily for 7 days. 14 tablet 0 11/01/2022 11/08/2022 Active Comment on above: Take 1 tablet by marielle twice daily for 7 days. calcium carbonate 1250 mg oral tablet (1 source) Start: 01-27-2024 take 1 tablet by mouth once daily as needed Calcium Carbonate 500 mg calcium (1,250 mg) tablet Active 500 mg PO daily as needed for dyspepsia January 27, 2024 12:00am Calcium Carbonate / vitamin D3 (20 sources) Start: 07-19-2007 calcium carbonate/vitamin d3(CALCIUM 500 WITH VITAMIN D 500 MG-125 UNIT TAB) Take one(1) tablet twice daily. 0 07/19/2007 Active Comment on above: Take one(1) tablet t wice daily. cholecalciferol 0.01 mg oral capsule (1 source) Vitamin D Start: 01-27-2024 take 1 capsule by mouth once daily as needed Cholecalciferol (Vitamin D3) 10 mcg (400 unit) capsule Active 10 ug PO daily as needed for supplement January 27, 2024 12:00am clobetasol propionate 0.5 mg/ml topical cream (20 [...] amount at vaginal opening twice a week. lisinopril 10 mg oral tablet (7 sources) Angiotensin Converting Enzyme Inhibitor Start: 02-22-20 End: 02-26-20 take 1 tablet by mouth once daily Lisinopril 10 mg tablet Active 10 mg PO daily April 28, 2024 1:00am pantoprazole 40 mg delayed release oral tablet (20 sources) Proton Pump Inhibitor Start: 02-27-20 End: 12-14-19 take 1 tablet by mouth once daily pantoprazole DR (PROTONIX) 40 mg tablet Indications: Gastroesophageal reflux disease without esophagitis Take 1 tablet by mouth once daily. 90 tablet 3 12/14/2023 Active Comment on above: Take 1 tablet by marielle once daily. predniSONE 10 mg oral tablet (8 sources) Start: 12-03-19 End: 12-12-19 predniSONE (DELTASONE) 10 mg tablet Take 4 [...] days. 10 tablet 0 02/13/2022 02/17/2022 Discontinued Start: 02-26-2019 End: 03-16-2019 take 2 tablets by mouth once daily at mealtime Prednisone 20 MG tablet Discontinued 40 mg PO DAILY 9 February 26, 2019 1:00am March 06, 2019 1:00am March 16, 2019 1:10am With food Comment on above: Take 2 tablets by mo ut once daily for 5 days. Take 4 [...] on above: Take 1 tablet by marielle every 4 hours as needed. sucralfate 1000 [...] on above: Take 1 tablet by marielle every 8 hours as needed (muscle spasms). [...] for cough. Take 1 capsule by mo [facility] three times a day as needed for [...] above: Take 1 tablet by marielle th twice daily for 10 days. GLUC HCL/CSANA/GLY-AM-GLY,MX/C ([id number] GLYCN-C ORAL) (1 source) GLUC HCL/CSANA/GLY-AM-GLY,MX/C ([id number] GLYCN-C ORAL) Take by mouth. 0 Active Comment on above: Take by mouth. MULTIVITAMIN TAB (1 source) Start: 07-19-2007 MULTIVITAMIN TAB Take one(1) tablet daily. 0 07/19/2007 Active Comment on above: Take one(1) tablet d aily. Problems Active Problems Problem Classification Problem Date Documented Da te Episodic/Chronic Acute myocardial infarction (4 sources) Myocardial infarction; Translations: [ST elevation (STEMI) myocardial infarction involving other coronary artery of inferior wall] 10-08-2024 Chronic Allergic reactions (2 sources) Allergic contact dermatitis [...] Translations: [Mixed hyperlipidemia] Onset: 10-07-2005 10-07-2005 Chronic E Codes: Fall (1 source) Fall; Translations: [Unspecified fall, initial encounter] 11-07-2023 Episodic Esophageal disorders (20 sources) Esophageal dysmotility; Translations: [...] Atrophic vaginitis; Translations: [Postmenopausal atrophic vaginitis] Chronic Nonspecific chest pain (2 sources) Chest pain; Translations: [Chest pain, unspecified] 10-08-2024 Episodic Other aftercare (1 source) Other intermission coordinator (current) drug therapy; Translations: [Long-term (current) use of other medications] 10-28-2022 Episodic Other aftercare (1 source) Drug therapy finding; Translations: [Other intermission coordinator (current) drug therapy] 11-14-2022 Episodic Other and unspecified benign neoplasm (1 source) Gastric polyp; Translations: [Polyp of stomach and duodenum] 10-20-2022 Episodic Other circulatory disease (1 source) Elevated blood-pressure reading without diagnosis of hypertension; Translations: [Elevated blood-pressure reading, without diagnosis of hypertension] 12-24-2023 Episodic Other connective tissue disease (1 source) Pain in right hand; Translations: [Pain in right hand] 10-21-2022 Episodic Other diseases of veins and lymphatics (1 source) Venous insufficiency of leg; Translations: [Venous insufficiency (chronic) (peripheral)] 01-27-2024 Episodic Other gastrointestinal disorders (2 sources) Dysphagia; Translations: [Dysphagia, unspecified] 10-28-2022 Episodic Other gastrointestinal disorders (2 sources) Finding of pulsation of abdomen; Translations: [Other specified symptoms and signs involving the digestive system and abdomen] 11-14-2022 Episodic Other injuries and conditions due to external causes (1 source) Muscle strain; Translations: [Other injury of unspecified body region, initial encounter] 11-07-2023 Episodic Other injuries and conditions due to external causes (1 source) Abrasion and/or friction burn of multiple sites; Translations: [Unspecified multiple injuries, initial encounter] 11-07-2023 Episodic Other lower respiratory disease (1 source) Rib pain; Translations: [Pleurodynia] 08-01-2023 Episodic Other lower respiratory disease (1 source) Cough; Translations: [Acute cough] 03-31-2023 Episodic Other lower respiratory disease (2 sources) Acute cardiac pulmonary edema ; Translations: [Acute pulmonary edema] 10-08-2024 Episodic Other non-traumatic joint disorders (3 sources) [...] serous otitis media, right ear] 11-01-2022 Episodic Pleurisy; pneumothorax; pulmonary collapse (1 source) Pleurisy; Translations: [Pleurisy] 05-25-2019 Episodic Residual codes; unclassified (2 sources) Postmenopausal state; Translations: [Asymptomatic menopausal state] 11-14-2022 Episodic Residual codes; unclassified (2 sources) Pain; Translations: [Pain, unspecified] 11-26-2022 Episodic Respiratory failure; insufficiency; arrest (adult) (2 sources) Acute respiratory failure; Translations: [Acute respiratory failure with hypoxia] 10-08-2024 Episodic Spondylosis; intervertebral disc disorders; other back problems (20 sources) Arthritis of right sacroiliac joint; Translations: [Spondylosis without myelopathy or radiculopathy, sacral and sacrococcygeal region] Onset: 12-04-2022 11-14-2022 Chronic Spondylosis; intervertebral disc disorders; other back problems (2 sources) Backache; Translations: [Lumbosacral pain] 11-14-2022 Episodic Superficial injury; contusion (2 sources) Contusion of thoracic spine; Translations: [Contusion of unspecified back wall of thorax, initial encounter] 11-07-2023 Episodic Varicose veins of lower extremity (5 sources) Varicose veins of lower extremity; Translations: [Varicose veins of bilateral lower extremities with other complications] Onset: 03-09-2024 01-06-2023 Episodic Comment on above: Duplex-Interpretatio n SummaryDeep veins of the bilateral lower extremities are patent and compressible segmentally. There is noevidence of bilateral lower extremity deep vein thrombosis. The bilateral great saphenous veinsappear patent and compressible segmentally.Positive for reflux in the right common femoral vein, saphenofemoral junction, great saphenous veinthroughout, accessory saphenous vein in the thigh, accessory saphenous vein in the calf, and smallsaphenous vein.Positive for reflux in the left common femoral vein, femoral vein, saphenofemoral vein, greatsaphenous vein above the knee, accessory saphenous vein in the thigh, and small saphenous vein. 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51 [facility] Absolute neutrophil countOrd ered By: Brando Crooks on 10-08-2024 Neutrophils (Bld) [#/Vol] 4.0 10*3/uL 2.0-7.7 [facility] Activated partial thrombopla stin time (aPTT) in platelet poor plasma by coagulation aOrdered By: Brando Crooks on 10-08-2024 aPTT Coag (PPP) [Time] 27.4 s 24.1-36.2 [facility] Anion gap in Serum or Plasma Ordered By: Brando Crooks on 10-08-2024 Anion gap [Moles/Vol] 13 mmol/L 5-15 [facility] Automated lymphocyte count a s percentage of total leukocytesOrdered By: Brando Crooks on 10-08-2024 Lymphocytes/100 WBC Auto (Unsp spec) 34.9 % 19-41 [facility] BUN/creatinine ratioOrdered By: Brando Crooks on 10-08-2024 Urea nitrogen/Creatinine [Mass ratio] 10.9 mg/mg 10-20 [facility] Basophil percentageOrdered B y: Brando Crooks on 10-08-2024 Basophils/100 WBC (Bld) 0.4 % 0-1 [facility] CO2 (BldV) [Moles/Vol]Ordere d By: Dylan Soni on 10-08-2024 CO2 [Moles/Vol] 25 mmol/L 23-33 [facility] Carbon dioxide, total [Moles /volume] in Central venous bloodOrdered By: Brando Crooks on 10-08-2024 CO2 [Moles/Vol] 22.9 mmol/L 21.0-32.0 [facility] Chloride assayOrdered By: Quang Crooks on 10-08-2024 Chloride [Moles/Vol] 105 mmol/L 98-108 [facility] Eosinophil percentageOrdered By: Brando Crooks on 10-08-2024 Eosinophils/100 WBC (Bld) 1.3 % 0-5 [facility] Erythrocyte distribution wid th ratioOrdered By: Brando Crooks on 10-08-2024 Erythrocyte distribution width (RBC) [Ratio] 13.7 % 11.6-14.6 [facility] Erythrocyte distribution wid th standard deviationOrdered By: Brando Crooks on 10-08-2024 Erythrocyte distribution width (RBC) [Ratio] 45.1 fl High 35.1-43.9 [facility] Glomerular filtration rate ( GFR) estimation/1.73 sq m using serum, plasma, or whole bOrdered By: Brando Crooks on 10-08-2024 GFR/1.73 sq M.predicted among non-blacks MDRD (S/P/Bld) [Vol rate/Area] 49 mL/min/{1.73_m2} Low >60 [facility] Comment on above: mL/min/1.73m2 CKD-EP I Creatinine Equation (2020) Hematocrit Auto (Bld) [Volum e fraction]Ordered By: Brando Crooks on 10-08-2024 Hematocrit (Bld) [Volume fraction] 40.0 % 37-47 [facility] Hemoglobin measurementOrdere d By: Brando Crooks on 10-08-2024 Hemoglobin (Bld) [Mass/Vol] 12.9 g/dL 12.0-15.0 [facility] Immature granulocytes/100 WB C Auto (Bld)Ordered By: Brando Crooks on 10-08-2024 Immature granulocytes/100 WBC (Bld) 0.300 % 0.0-0.9 [facility] Comment on above: IG% - Immature Granu locytes (promyelocytes, myelocytes and metamyelocytes) > 1% indicates that a LEFT SHIFT is Present. International normalized rat io (INR) calculationOrdered By: Brando Crooks on 10-08-2024 INR Coag (Bld) [Relative time] 1.0 {INR} [facility] MCV (mean corpuscular volume ) determinationOrdered By: Brando Crooks on 10-08-2024 MCV (RBC) [Entitic vol] 90.7 fL 81-99 [facility] Mean corpuscular hemoglobin (MCH) determinationOrdered By: Brando Crooks on 10-08-2024 MCH (RBC) [Entitic mass] 29.3 pg 27.0-32.0 [facility] Mean corpuscular hemoglobin concentration (MCHC) determinationOrdered By: Brando Crooks on 10-08-2024 MCHC (RBC) [Mass/Vol] 32.3 g/dL 32-36 [facility] Mean platelet volume determi nationOrdered By: Brando Crooks on 10-08-2024 Platelet mean volume (Bld) [Entitic vol] 11.3 fL 6.2-12.0 [facility] Monocyte percentageOrdered B y: Brando Crooks on 10-08-2024 Monocytes/100 WBC (Bld) 5.9 % 0-10 [facility] Neutrophil percentageOrdered By: Brando Crooks on 10-08-2024 Neutrophils/100 WBC (Bld) 57.2 % 47-70 [facility] No Panel InformationOrdered By: Dylan Soni on 10-08-2024 Blood Gas Sample Site Not entered [facility] Blood Gas Specimen Type ROSA ISELA [facility] Oxygen Delivery Device Not entered [facility] Nucleated red blood cell per centageOrdered By: Brando Crooks on 10-08-2024 Nucleated RBC/100 WBC (Bld) [Ratio] 0 % 0-5 [facility] Platelet countOrdered By: Quang Crooks on 10-08-2024 Platelets (Bld) [#/Vol] 165 10*3/uL 150-450 [facility] Potassium measurement (mass/ volume)Ordered By: Brando Crooks on 10-08-2024 Potassium (Unsp spec) [Mass/Vol] 3.8 mmol/L 3.3-5.1 [facility] Prothrombin timeOrdered By: Brando Crooks on 10-08-2024 PT Coag (PPP) [Time] 13.2 s 11.7-14.9 [facility] RBC Auto (Bld) [#/Vol]Ordere d By: Brando Crooks on 10-08-2024 RBC (Bld) [#/Vol] 4.41 10*6/uL 4.2-5.4 [facility] Serum creatinine measurement (mass/volume)Ordered By: Brando Crooks on 10-08-2024 Creatinine [Mass/Vol] 1.20 mg/dL 0.70-1.20 [facility] Serum glucose measurement (m ass/volume)Ordered By: Brando Crooks on 10-08-2024 Glucose [Mass/Vol] 154 mg/dL High 70-99 [facility] Serum or plasma calcium dalals urement (mass/volume)Ordered By: Brando Crooks on 10-08-2024 Calcium [Mass/Vol] 9.2 mg/dL 7.6-11.0 [facility] Serum or plasma urea nitroge n measurement (mass/volume)Ordered By: Brando Crooks on 10-08-2024 Urea nitrogen [Mass/Vol] 13 mg/dL 4-19 [facility] Sodium levelOrdered By: Arely Crooks on 10-08-2024 Sodium [Moles/Vol] 141 mmol/L 133-145 [facility] Troponin T.cardiac [Mass/vol ume] in Serum or Plasma by High sensitivity methodOrdered By: Brando Crooks on 10-08-2024 Troponin T.cardiac High sensitivity method [Mass/Vol] 48 ng/L High <14 [facility] Venous blood base excess evette surementOrdered By: Dylan Soni on 10-08-2024 Base excess Calc (BldV) [Moles/Vol] -2 mmol/L Low -1.0-3.5 [facility] Venous blood bicarbonate evette surementOrdered By: Dylan Soni on 10-08-2024 HCO3 (Bld) [Moles/Vol] 24 mmol/L 22-26 [facility] Venous blood oxygen saturati on measurementOrdered By: Dylan Soni on 10-08-2024 Oxygen saturation in Blood 61 % 50-70 [facility] Venous blood pH measurementO rdered By: Dylan Soni on 10-08-2024 pH (BldV) 7.33 [pH] 7.32-7.42 [facility] Venous blood partial pressur e of carbon dioxide measurementOrdered By: Dylan Soni on 10-08-2024 CO2 (BldV) [Partial pressure] 45.9 mm[Hg] 41-51 [facility] Venous blood partial pressur e of oxygen measurementOrdered By: Dylan Soni on 10-08-2024 Oxygen (BldV) [Partial pressure] 34 mm[Hg] 25-40 [facility] White blood cell (WBC) count Ordered By: Brando Crooks on 10-08-2024 WBC (Bld) [#/Vol] 6.9 10*3/uL 4.4-11.0 [facility] MR/BMS.Amelia 04-28-2024 MR/BMS.KAYLIS [facility] Vascular Surgery [address] [place] [address] OFFICE VISIT Date of Service: 04/28/24 MR#: [id number] Acct: [id number] Name: LUCAS ASTUDILLO Rep #: [id number] : 1955 Provider: Dr. José Miguel Lambert MD Age/Sex: 68/F Location: [facility] Status: Signed Intake Vital Signs 10/29/23 21:40 [...] no sens (more content not included)... Normal [facility] [id number] 04-17-2024 [id number] HNO ID: [id number] Author: HARRY FAUSTIN PT Service: ? Author Type: Physical Therapist Type: [id number] Filed: 04/17/2024 16:29 Note Text: 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 The above goals and plan of care were discussed and agreed upon by patient/family. For further details regarding this patient refer to the Physical Therapy electronically documented visit dated 01/19/2023. Provider Attestation I have reviewed the treatment plan for Lucas Astudillo, CCF# [id number] for the period of 01/19/23 -- 02/23/23, established on 01/19/2023. Signature certifies the need for therapy services. Normal [facility] CNOVon 03-14-2024 CNOV Office Visit (FAMPWS ) YONNYHOLDENLUCAS Maya ([id number]) 1955 F Date Time Provider Department 03/14/24 11:20 AM [facility] During your visit today, we recorded [...] to auscultat (more content not included)... Normal [facility] CNOVon 02-22-2024 [facility] LUCAS ASTUDILLO ([id number]) 1955 F Date Time Provider Department 02/22/24 11:40 AM LOL[facility] During your visit today, we recorded the following information about you: Pulse Respiration Blood pressure 58/minute 16/minute 158/88 Lola Farris APRN.BODY AND FRAME TECHNICIAN 02/22/2024 8:43 PM Signed This is a [...] understanding. R (more content not included)... Normal [facility] XR KNEE 4V AP/PA BOTH+LAT/ME R [...] fracture. Joint spaces maintained. IMPRESSION: Unremarkable radiograph Asset Analyst: PSCB Transcribe Date/Time: Feb 26 2024 6:33P Dictated by : MEHNAZ LAI MD This examination was interpreted and the report reviewed and electronically signed by: MEHNAZ LAI MD on Feb 26 2024 6:34PM EST [id number] Normal [facility] Venous Duplex US - Ronni [facility] 02-11-2024 Venous Duplex US - Ronni [facility] Cardiovascular Services [address] [place] [address] Venous Duplex US - Ronni Ext[facility] 02/11/24 0901 MR#: [id number] Acct: [id number] Name: LUCAS ASTUDILLO Rep #: [id number] : 1955 68 From: José Miguel Lambert [...] Dictated: 02/11/24 0901 Date Transcribed: 02/15/24 1300 Asset Analyst: Signed [facility] MR/BMS.Son 01-27-2024 /BMS.[facility] Vascular Surgery [address] [place] [address]. [address] [place] [address] OFFICE VISIT Date of Service: 01/27/24 MR#: [id number] Acct: [id number] Name: LUCAS ASTUDILLO Rep #: [id number] : 1955 Provider: MEGA Hi Age/Sex: 68/F Location: [facility] Status: Signed Intake Vital Signs 10/29/23 21:40 [...] She had prior workup in March at [facility]. Her duplex at that time showed [...] No confusion (more content not included)... Normal [facility] DBT Breast - bilateral karen nascimento 01-08-2024 [...] Henny Pollack M.D. Electronically signed on: 01/08/2024 Asset Analyst: MILI Transcribe Date/Time: Jan 07 2024 10:13A Dictated by: HENNY POLLACK MD This examination was interpreted and the report reviewed and electronically signed by: HENNY POLLACK MD on Jan 08 2024 11:25AM [facility] DIVISION OF RADIOLOGY * * *Final Report* * * DATE OF EXAM: Jan 07 2024 10:43AM [facility] 0582 - ELLIOT SCREENING W SAIRA / PROCEDURE REASON: Encounter for screening mammogram for malignant neoplasm of breast * * * * Physician Interpretation * * * * RESULT: [facility] [address] [place] [address] HISTORY: Patient is 68 years old and [...] the prior study. DIVISION OF RADIOLOGY Provider, [facility] - 01/08/2024 * * *Final Report* * * DATE OF EXAM: Jan 07 2024 10:43AM [facility] 0582 - ELLIOT SCREENING W SAIRA / PROCEDURE REASON: Encounter for screening mammogram for malignant neoplasm of breast * * * * Physician Interpretation * * * * RESULT: [facility] [address] [place] [address] HISTORY: Patient is 68 years old and [...] Henny Pollack M.D. Electronically signed on: 01/08/2024 Asset Analyst: MILI Transcribe Date/Time: Jan 07 2024 10:13A Dictated by: HENNY POLLACK MD This examination was interpreted and the report reviewed and electronically signed by: HENNY POLLACK MD on Jan 08 2024 11:25AM EST [facility] DBT Breast - bilateral scree ningOrdered By: Ccf Provider on 01-08-2024 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 Lucas is a 68 year old who [...] Comment: 1 section No surgery for ectopic Fibre Technologist History LMP: 09/17/2008, Postmenopausal Age at Menarche: Age at First : Age at Menopause: Fibre Technologist History Comments: Sexual Activity: Yes; Male; bilateral [...] discussed with the Patient or Patient's Authorized Fish Hatchery Supervisor. As applicable, any other physician, advance practice provider, medical student, or other health professional student that will be observing or involved in the sensitive examination for educational or training purposes was discussed with the Patient or Authorized Fish Hatchery Supervisor. The Patient or Authorized Fish Hatchery Supervisor has agreed to proceed with the sensitive [...] external genitalia normal, normal Bartholin's glands, urethra, [place]. Onge's glands, no vulvar lesions, no cervical lesions, good vaginal support, physiologic discharge present, normal appearing perineal body and perianal region BIMANUAL: uterus normal size, shape and consistency, no adnexal masses, and non-tender RECTOVAGINAL: deferred. NEURO: alert and oriented x3,exam grossly non-focal EXTREMITIES: normal ASSESSMENT/PLAN: 1) Health maintenance: Pap done with HPV (more content not included)... Normal [facility] DBT Breast - bilateral scree alissagon 01-07-2024 Radiology Study observation (narrative) [facility] HIGH RISK HUMAN PAPILLOMA NAE (HPV), PCR FOR DETECTION AND GENOTYPINGon 01-07-2024 HPV 16 Ag Ql (Unsp spec) Not detected Normal Not detected [facility] Comment on above: Order Comment: Speci men Type: FLUID SPECIMENOrdering Facility: [facility] Address: [address] [place] [address] Performed By: #### H PVHRT, [id number] ####[facility] LABCLIA [id number] [place] [address] [place] HPV 18 Ag Ql (Unsp spec) Not detected Normal Not detected [facility] Comment on above: Order Comment: Speci men Type: FLUID SPECIMENOrdering Facility: [facility] Address: [address] [place] [address] Performed By: #### H PVHRT, [id number] ####[facility] LABCLIA [id number] [place] [address] [place] HPV 31+33+35+39+45+51+52+5 6+58+59+66+68 DNA GUSTAVO+probe Ql (Cvx) Not detected Normal Not detected [facility] Comment on above: Order Comment: Speci men Type: FLUID SPECIMENOrdering Facility: [facility] Address: [address] [place] [address] Result Comment: High Risk HPV Other Type includes HPV types 31, 33, 35, 39, 45, 51, 52, 56, 58, 59, 66 and 68. Performed By: #### H PVHRT, [id number] ####[facility] LABCLIA [id number] [place] [address] [place] ELLIOT SCREENING W TOMOon 01-06 ELLIOT SCREENING W SAIRA * * *Final Report* * * DATE OF EXAM: Jan 07 2024 10:43AM WRW [id number] - ELLIOT SCREENING W SAIRA / PROCEDURE REASON: Encounter for screening mammogram for malignant neoplasm of breast * * * * Physician Interpretation * * * * RESULT: [facility] [address] [id number] HISTORY: Patient is 68 years old and [...] Henny Pollack M.D. Electronically signed on: 01/08/2024 Asset Analyst: MILI Transcribe Date/Time: Jan 07 2024 10:13A Dictated by: HENNY POLLACK MD This examination was interpreted and the report reviewed and electronically signed by: HENNY POLLACK MD on Jan 08 2024 11:25AM EST [id number] Normal [facility] PAP TESTon 01-07-2024 ADEQUACY Normal [facility] Comment on above: Order Comment: Speci men Type: FLUID SPECIMENOrdering Facility: [facility] Address: [address] [place] [address] Result Comment: Sati sfactory for interpretation. No endocervical component Performed By: #### H PVHRT, [id number] ####[facility] LABCLIA [id number] [place] [address] [place] CASE REPORT Normal [facility] Comment on above: Order Comment: Speci men Type: FLUID SPECIMENOrdering Facility: [facility] Address: [address] [place] [address] Result Comment: Gyne cologic Cytology Report Case: [id number] Authorizing Provider: Tiffani Gant APRN.BODY AND FRAME TECHNICIAN Collected: 01/07/2024 11:26 AM Ordering Location: OB/Gynecology Received: 01/07/2024 12:00 PM First Screen: Deeds, Hardy, CT, ASCP Specimen: Pap Test, ThinPrep, Cervix Performed By: #### H PVHRT, [id number] ####[facility] LABCLIA [id number] [place] [address] [place] CLINICAL HISTORY, CYTOLOGY, PUBLISHING MANAGER Routine Exam Normal [facility] Comment on above: Order Comment: Speci men Type: FLUID SPECIMENOrdering Facility: [facility] Address: [address] [place] [address] Result Comment: Post Menopausal Performed By: #### H PVHRT, [id number] ####[facility] LABCLIA [id number] [place] [address] [place] FINAL PERFORMING LAB Normal [facility] Comment on above: Order Comment: Speci men Type: FLUID SPECIMENOrdering Facility: [facility] Address: [address] [place] [address] Result Comment: Tech nical component, cooker meal screening performed at [facility], [address] [place] [address] CLIA# [id number] Diagnostic interpretation performed at [facility], [address] [place], [place] [address] CLIA# [id number] Access Representative: Oracio Hilario M.D. Performed By: #### H PVHRT, [id number] ####[facility] LABCLIA [id number] [place] [address] [place] HPV REFLEX Yes HPV Normal [facility] Comment on above: Order Comment: Speci men Type: FLUID SPECIMENOrdering Facility: [facility] Address: [address] [place] [address] Performed By: #### H PVHRT, [id number] ####[facility] LABCLIA [id number] [place] [address] [place] INTERPRETATION, CYTOLOGY, PUBLISHING MANAGER Normal [facility] Comment on above: Order Comment: Speci men Type: FLUID SPECIMENOrdering Facility: [facility] Address: [address] [place] [address] Result Comment: Nega tive for intraepithelial lesion or malignancy. Performed By: #### H PVHRT, [id number] ####[facility] LABCLIA [id number] [place] [address] [place] PAP DISCLAIMER COMMENT The Pap Smear is a screening test for cervical cancer. False negative results occur with all screening tests, emphasizing the need for rescreening at recommended intervals, and clinical correlation. Normal [facility] Comment on above: Order Comment: Speci men Type: FLUID SPECIMENOrdering Facility: [facility] Address: [address] [place] [address] Performed By: #### H PVHRT, [id number] ####[facility] LABCLIA [id number] [place] [address] [place] PAP EDGING MACHINE CATCHER COMMENT This specimen has be en analyzed by the ThinPrep Imaging System, an automated imaging and review system, which assists the laboratory in evaluating cells on ThinPrep Pap tests. Following automated imaging, selected brown from every slide are reviewed by a cooker meal. Normal [facility] Comment on above: Order Comment: Speci men Type: FLUID SPECIMENOrdering Facility: [facility] Address: [address] [place] [address] Performed By: #### H PVHRT, [id number] ####[facility] LABCLIA [id number] [id number] OF [facility] CNOVon 12-24-2023 CNOV Office Visit (FAMPWS ) YONNYLUCAS Maya ([id number]) 1955 F Date Time Provider Department 12/24/23 2:00 PM [facility] During your visit today, we recorded the following information about you: Pulse Respiration Blood pressure Weight 68/minute 16/minute 120/80 88.9 kg Celia Rider MA 12/24/2023 2:11 PM Signed 12/24/2023: Home BP Cuff Validated. Home BP: 125/83 P69 Office BP: 130/82 P:68 Celia Rider MA December 24, 2023 2:11 PM Natalia Monge APRN.BODY AND FRAME TECHNICIAN 12/24/2023 2:23 PM Signed This is a [...] next visi (more content not included)... [facility] Telephone (FAMAlexanderWS) LUCAS ASTUDILLO ([id number]) 1955 F Date Time Provider Department 12/22/23 [facility] During your visit today, we recorded [...] Status:Closed by CRYSTAL HENNING on 12/22/23 Normal [facility] CNOVon 12-03-2023 CNOV [facility] LUCAS ASTUDILLO ([id number]) 1955 F Date Time Provider Department 12/03/23 9:40 AM MAY[facility] LAN [facility] During your visit today, we recorded the [...] - ICD (more content not included)... Normal [facility] Elbow min 3 Viewson 10-29-19 Elbow min 3 Views [facility] Imaging Services [address] [place] [address] Elbow min 3 Views MR#: [id number] Acct: [id number] Name: LUCAS ASTUDILLO Rep #: [id number] : 1955 F 68 From: Noam pritchard DO PCP: Dr. Eugenio Peralta MD Status: PRE ER Study: Elbow min 3 Views Date of Exam: 10/29/23 Exam# [id number] Ordering Dr: Harrison Cross DO :[id number] EXAM: XR LEFT ELBOW COMPLETE, 3 OR [...] Harrison Cross DO; Dr. Eugenio Peralta MD Asset Analyst: Signed Normal [facility] Emergency Department Summary on 10-29-2023 Emergency Department Summary [facility] Medical Records Department [address] [place] [address] Emergency Department Summary 10/29/23 MR#: [id number] Acct: [id number] Name: LUCAS ASTUDILLO Rep #: [id number] : 1955 68 From: Harrison Amaya PCP: [...] able to ambulate. Tetanus was in 2019. PFS PFS Home Medications ???Medication ???Instructions ???Recorded ???Last [...] tissue swelling (more content not included)... Normal [facility] Lumbar Spine 2 or 3 Viewson 10-29-2023 Lumbar Spine 2 or 3 Views [facility] Imaging Services [address] [place], [place] [id number] Lumbar Spine 2 or 3 Views MR#: [id number] Acct: [id number] Name: LUCAS ASTUDILLO Rep #: [id number] : 1955 F 68 From: Noam pritchard DO PCP: Dr. Eugenio Peralta MD Status: PRE ER Study: Lumbar Spine 2 or 3 Views Date of Exam: Exam# [id number] Ordering Dr: Harrison Cross DO :[id number] EXAM: XR LUMBOSACRAL SPINE, 2 OR 3 [...] Harrison Cross DO; Dr. Eugenio Peralta MD Asset Analyst: Signed Normal [facility] Thoracic Spine 3 Viewson Thoracic Spine 3 Views [facility] Imaging Services [address] [place], [place] [address] Thoracic Spine 3 Views MR#: [id number] Acct: [id number] Name: LUCAS ASTUDILLO Rep #: [id number] : 1955 F 68 From: Noam pritchard DO PCP: Dr. Eugenio Peralta MD Status: PRE ER Study: Thoracic Spine 3 Views Date of Exam: 10/29/23 Exam# [id number] Ordering Dr: Harrison Cross DO :[id number] EXAM: XR THORACIC SPINE, 3 VIEWS CLINICAL [...] Harrison Cross DO; Dr. Eugenio Peralta MD Asset Analyst: Signed [facility] Office Visit (FAMPWS ) LUCAS ASTUDILLO ([id number]) 1955 F Date Time Provider Department 10/26/23 11:00 AM EU[facility] PERAL[facility] During your visit today, we recorded [...] in the medical record. Dr Kovacs, sees PUBLISHING MANAGER, [facility]. Medical/Family history review Reviewed and updated allergies. Opioid use review Opioid Medications (last 90 days) No data to display Anxiety/Depression screening PHQ-9 Score: 0. JONY-7 Score: 1 (Minimal Anxiety) Recommendation: no further intervention at this time Cognitive screening / Cognitive screening reviewed and No further action [...] No history of dysuria, frequency or incontinence PUBLISHING MANAGER: Negative for abnormal vaginal bleeding, abnormal vaginal [...] health and behavioral disorders [Z13.39] Order(s):DEPRESSION SCREENING [] Order #: [id number]: 1 ANXIETY SCREENING [] Order #: [id number]: 1 ADVANCE CARE PLAN DISCUSSION [] Order #: [id number]: 1 Prescriptions as of 10/26/2023 - sucralfate [...] ESOPHAGUS [K22.4] (more content not included)... Normal [facility] CBC W Auto Differential pane l (Bld)on 10-20-2023 Basophils (Bld) [#/Vol] 10*3/uL Normal <0.11 [facility] Comment on above: Order Comment: Speci men Type: BLOOD SPECIMENOrdering Facility: [facility] Address: [address] [place] [address] Performed By: #### 5 7021-8 ####[facility] LABCLIA [id number] [place] [address] [place] Basophils/100 WBC (Bld) 0.2 % Normal [facility] Comment on above: Order Comment: Speci men Type: BLOOD SPECIMENOrdering Facility: [facility] Address: [address] [place] [address] Performed By: #### 5 7021-8 ####[facility] LABCLIA [id number] [place] [address] [place] Differential cell count method Nom (Bld) Auto Normal [facility] Comment on above: Order Comment: Speci men Type: BLOOD SPECIMENOrdering Facility: [facility] Address: [address] [place] [address] Performed By: #### 5 7021-8 ####[facility] LABCLIA [id number] [place] [address] [place] Eosinophils (Bld) [#/Vol] 0.08 10*3/uL Normal <0.46 [facility] Comment on above: Order Comment: Speci men Type: BLOOD SPECIMENOrdering Facility: [facility] Address: [address] [place] [address] Performed By: #### 5 7021-8 ####[facility] LABCLIA [id number] [place] [address] [place] Eosinophils/100 WBC (Bld) 1.8 % Normal [facility] Comment on above: Order Comment: Speci men Type: BLOOD SPECIMENOrdering Facility: [facility] Address: [address] [place] [address] Performed By: #### 5 7021-8 ####[facility] LABCLIA [id number] [place] [address] [place] Erythrocyte distribution width (RBC) [Ratio] 13.9 % Normal 11.5-15.0 [facility] Comment on above: Order Comment: Speci men Type: BLOOD SPECIMENOrdering Facility: [facility] Address: [address] [place] [address] Performed By: #### 5 7021-8 ####[facility] LABCLIA [id number] [place] [address] [place] Hematocrit (Bld) [Volume fraction] 41.5 % Normal 36.0-46.0 [facility] Comment on above: Order Comment: Speci men Type: BLOOD SPECIMENOrdering Facility: [facility] Address: [address] [place] [address] Performed By: #### 5 7021-8 ####[facility] LABCLIA [id number] [place] [address] [place] Hemoglobin (Bld) [Mass/Vol] 13.2 g/dL Normal 11.5-15.5 [facility] Comment on above: Order Comment: Speci men Type: BLOOD SPECIMENOrdering Facility: [facility] Address: [address] [place] [address] Performed By: #### 5 7021-8 ####[facility] LABCLIA [id number] [place] [address] [place] Immature granulocytes (Bld) [#/Vol] 10*3/uL Normal <0.10 [facility] Comment on above: Order Comment: Speci men Type: BLOOD SPECIMENOrdering Facility: [facility] Address: [address] [place] [address] Performed By: #### 5 7021-8 ####[facility] LABCLIA [id number] [place] [address] [place] Immature granulocytes/100 WBC (Bld) 0.2 % Normal [facility] Comment on above: Order Comment: Speci men Type: BLOOD SPECIMENOrdering Facility: [facility] Address: [address] [place] [address] Performed By: #### 5 7021-8 ####[facility] LABCLIA [id number] [place] [address] [place] Lymphocytes (Bld) [#/Vol] 1.43 10*3/uL Normal 1.00-4.00 [facility] Comment on above: Order Comment: Speci men Type: BLOOD SPECIMENOrdering Facility: [facility] Address: [address] [place] [address] Performed By: #### 5 7021-8 ####[facility] LABIA [id number] [place] [address] [place] Lymphocytes/100 WBC (Bld) 32.4 % Normal [facility] Comment on above: Order Comment: Speci men Type: BLOOD SPECIMENOrdering Facility: [facility] Address: [address] [place] [address] Performed By: #### 5 7021-8 ####[facility] LABIA [id number] [place] [address] [place] MCH (RBC) [Entitic mass] 29.2 pg Normal 26.0-34.0 [facility] Comment on above: Order Comment: Speci men Type: BLOOD SPECIMENOrdering Facility: [facility] Address: [address] [place] [address] Performed By: #### 5 7021-8 ####[facility] LABIA [id number] [place] [address] [place] MCHC (RBC) [Mass/Vol] 31.8 g/dL Normal 30.5-36.0 [facility] Comment on above: Order Comment: Speci men Type: BLOOD SPECIMENOrdering Facility: [facility] Address: [address] [place] [address] Performed By: #### 5 7021-8 ####[facility] LABIA [id number] [place] [address] [place] MCV (RBC) [Entitic vol] 91.8 fL Normal 80.0-100.0 [facility] Comment on above: Order Comment: Speci men Type: BLOOD SPECIMENOrdering Facility: [facility] Address: [address] [place] [address] Performed By: #### 5 7021-8 ####[facility] LABCLIA [id number] [place] [address] [place] Monocytes (Bld) [#/Vol] 0.26 10*3/uL Normal <0.87 [facility] Comment on above: Order Comment: Speci men Type: BLOOD SPECIMENOrdering Facility: [facility] Address: [address] [place] [address] Performed By: #### 5 7021-8 ####[facility] LABCLIA [id number] [place] [address] [place] Monocytes/100 WBC (Bld) 5.9 % Normal [facility] Comment on above: Order Comment: Speci men Type: BLOOD SPECIMENOrdering Facility: [facility] Address: [address] [place] [address] Performed By: #### 5 7021-8 ####[facility] LABCLIA [id number] [place] [address] [place] Neutrophils (Bld) [#/Vol] 2.63 10*3/uL Normal 1.45-7.50 [facility] Comment on above: Order Comment: Speci men Type: BLOOD SPECIMENOrdering Facility: [facility] Address: [address] [place] [address] Performed By: #### 5 7021-8 ####[facility] LABCLIA [id number] [place] [address] [place] Neutrophils/100 WBC (Bld) 59.5 % Normal [facility] Comment on above: Order Comment: Speci men Type: BLOOD SPECIMENOrdering Facility: [facility] Address: [address] [place] [address] Performed By: #### 5 7021-8 ####[facility] LABCLIA [id number] [place] [address] [place] Nucleated RBC (Bld) [#/Vol] 10*3/uL Normal <0.01 [facility] Comment on above: Order Comment: Speci men Type: BLOOD SPECIMENOrdering Facility: [facility] Address: [address] [place] [address] Performed By: #### 5 7021-8 ####[facility] LABCLIA [id number] [place] [address] [place] Nucleated RBC/100 WBC (Bld) [Ratio] 0.0 /100 WBC Normal [facility] Comment on above: Order Comment: Speci men Type: BLOOD SPECIMENOrdering Facility: [facility] Address: [address] [place] [address] Performed By: #### 5 7021-8 ####[facility] LABIA [id number] [place] [address] [place] Platelet mean volume (Bld) [Entitic vol] 11.7 fL Normal 9.0-12.7 [facility] Comment on above: Order Comment: Speci men Type: BLOOD SPECIMENOrdering Facility: [facility] Address: [address] [place] [address] Performed By: #### 5 7021-8 ####[facility] LABIA [id number] [place] [address] [place] Platelets (Bld) [#/Vol] 169 10*3/uL Normal 150-400 [facility] Comment on above: Order Comment: Speci men Type: BLOOD SPECIMENOrdering Facility: [facility] Address: [address] [place] [address] Performed By: #### 5 7021-8 ####[facility] LABIA [id number] [place] [address] [place] RBC (Bld) [#/Vol] 4.52 10*6/uL Normal 3.90-5.20 [facility] Comment on above: Order Comment: Speci men Type: BLOOD SPECIMENOrdering Facility: [facility] Address: [address] [place] [address] Performed By: #### 5 7021-8 ####[facility] LABCLIA [id number] [place] [address] [place] WBC (Bld) [#/Vol] 4.42 10*3/uL Normal 3.70-11.00 [facility] Comment on above: Order Comment: Speci men Type: BLOOD SPECIMENOrdering Facility: [facility] Address: [address] [place] [address] Performed By: #### 5 7021-8 ####[facility] LABCLIA [id number] [place] [address] [place] Comprehensive metabolic 2000 panelon 10-20-2023 Albumin [Mass/Vol] 4.1 g/dL Normal 3.9-4.[address] [facility] Comment on above: Order Comment: Speci men Type: BLOOD SPECIMENOrdering Facility: [facility] Address: [address] [place] [address] Performed By: #### 2 4331-1, 63963-6 ####[facility] LABCLIA [id number] [place] [address] [place] ALP [Catalytic activity/Vol] 74 U/L Normal 34-123 [facility] Comment on above: Order Comment: Speci men Type: BLOOD SPECIMENOrdering Facility: [facility] Address: [address] [place] [address] Performed By: #### 2 4331-1, 63727-6 ####[facility] LABCLIA [id number] [place] [address] [place] ALT [Catalytic activity/Vol] 14 U/L Normal 7-38 [facility] Comment on above: Order Comment: Speci men Type: BLOOD SPECIMENOrdering Facility: [facility] Address: [address] [place] [address] Performed By: #### 2 4331-1, 74680-3 ####[facility] LABCLIA [id number] [place] [address] [place] Anion gap [Moles/Vol] 10 mmol/L Normal 8-15 [facility] Comment on above: Order Comment: Speci men Type: BLOOD SPECIMENOrdering Facility: [facility] Address: [address] [place] [address] Performed By: #### 2 4331-1, 31413-0 ####[facility] LABCLIA [id number] [place] [address] [place] AST [Catalytic activity/Vol] 18 U/L Normal 13-35 [facility] Comment on above: Order Comment: Speci men Type: BLOOD SPECIMENOrdering Facility: [facility] Address: [address] [place] [address] Performed By: #### 2 4331-1, 16907-7 ####[facility] LABCLIA [id number] [place] [address] [place] Bilirubin [Mass/Vol] 0.4 mg/dL Normal 0.2-1.3 [facility] Comment on above: Order Comment: Speci men Type: BLOOD SPECIMENOrdering Facility: [facility] Address: [address] [place] [address] Performed By: #### 2 4331-1, 01221-9 ####[facility] LABCLIA [id number] [place] [address] [place] Calcium [Mass/Vol] 9.4 mg/dL Normal 8.5-10.[address] [facility] Comment on above: Order Comment: Speci men Type: BLOOD SPECIMENOrdering Facility: [facility] Address: [address] [place] [address] Performed By: #### 2 4331-1, 61573-5 ####[facility] LABCLIA [id number] [place] [id number] [place] Chloride [Moles/Vol] 107 mmol/L Normal 98-107 [facility] Comment on above: Order Comment: Speci men Type: BLOOD SPECIMENOrdering Facility: [facility] Address: [address] [place] [address] Performed By: #### 2 4331-1, 04892-8 ####[facility] LABIA [id number] [place] [address] [place] CO2 [Moles/Vol] 25 mmol/L Normal 22-30 [facility] Comment on above: Order Comment: Speci men Type: BLOOD SPECIMENOrdering Facility: [facility] Address: [address] [place] [address] Performed By: #### 2 4331-1, 10224-7 ####[facility] LABIA [id number] [place] [address] [place] Creatinine [Mass/Vol] 1.01 mg/dL High 0.58-0.96 [facility] Comment on above: Order Comment: Speci men Type: BLOOD SPECIMENOrdering Facility: [facility] Address: [address] [place] [address] Performed By: #### 2 4331-1, 13634-7 ####[facility] LABIA [id number] [place] [address] [place] Creatinine and Glomerular filtration rate.predicted panel (S/P/Bld) 61 mL/min/1.73m??? Normal >=60 [facility] Comment on above: Order Comment: Speci men Type: BLOOD SPECIMENOrdering Facility: [facility] Address: [address] [place] [address] Result Comment: Debra mated Glomerular Filtration Rate [...] actual GFR. Performed By: #### 2 4331-1, 20280-2 ####[facility] LABCLIA [id number] [address] [address] [place] Glucose [Mass/Vol] 87 mg/dL Normal 74-[address] [facility] Comment on above: Order Comment: Speci men Type: BLOOD SPECIMENOrdering Facility: [facility] Address: [address] [place] [address] Result Comment: The [place] Diabetes Association (ADA) provides guidance for cutoff [...] Standards of Medical Care in Diabetes 2016, Citizen Of [place] Diabetes Association. Diabetes Care. 2016.39(Suppl 1). Performed By: #### 2 4331-1, 28984-4 ####[facility] LABIA [id number] [place] [address] [place] Potassium [Moles/Vol] 4.4 mmol/L Normal 3.7-5.1 [facility] Comment on above: Order Comment: Speci men Type: BLOOD SPECIMENOrdering Facility: [facility] Address: [address] [place] [address] Performed By: #### 2 4331-1, 66759-9 ####[facility] LABIA [id number] [place] [address] [place] Protein [Mass/Vol] 7.2 g/dL Normal 6.3-8.[address] [facility] Comment on above: Order Comment: Speci men Type: BLOOD SPECIMENOrdering Facility: [facility] Address: [address] [place] [address] Performed By: #### 2 4331-1, 82878-0 ####[facility] LABCLIA [id number] [address] [address] [place] Sodium [Moles/Vol] 142 mmol/L Normal 136-[address] [facility] Comment on above: Order Comment: Speci men Type: BLOOD SPECIMENOrdering Facility: [facility] Address: [address] [place] [address] Performed By: #### 2 4331-1, 77993-5 ####[facility] LABCLIA [id number] [place] [address] [place] Urea nitrogen [Mass/Vol] 19 mg/dL Normal 7-21 [facility] Comment on above: Order Comment: Speci men Type: BLOOD SPECIMENOrdering Facility: [facility] Address: [address] [place] [address] Performed By: #### 2 4331-1, 95791-2 ####[facility] LABCLIA [id number] [place] [address] [place] Lipid 1996 panelon 4 Cholesterol [Mass/Vol] 136 mg/dL Normal <200 [facility] Comment on above: Order Comment: Speci men Type: BLOOD SPECIMENOrdering Facility: [facility] Address: [address] [place] [address] Result Comment: <200 mg/dL, Desirable 200-239 mg/dL, Borderline high >239 mg/dL, High Performed By: #### 2 4331-1, 65948-1 ####[facility] LABIA [id number] [place] [address] [place] Cholesterol in HDL [Mass/Vol] 37 mg/dL Low >39 [facility] Comment on above: Order Comment: Speci men Type: BLOOD SPECIMENOrdering Facility: [facility] Address: [address] [place] [address] Result Comment: 40-5 9 mg/dL, Acceptable >59 mg/dL, High: Negative risk factor for coronary heart disease <40 mg/dL, Low: Positive risk factor for coronary heart disease Performed By: #### 2 4331-1, 12471-9 ####[facility] LABCLIA [id number] [address] STATES OF [facility] Cholesterol in LDL [Mass/Vol] 73 mg/dL Normal <100 [facility] Comment on above: Order Comment: Speci men Type: BLOOD SPECIMENOrdering Facility: [facility] Address: [address] [place] [address] Result Comment: <100 mg/dL, Optimal 100-129 mg/dL, Near optimal/above optimal 130-159 mg/dL, Borderline high 160-189 mg/dL, High >189 mg/dL, Very high Secondary prevention optimal LDL Cholesterol levels are recommended to be < 70 mg/dL Performed By: #### 2 4331-1, 26094-0 ####[facility] LABCLIA [id number] [address] STATES [facility] Cholesterol in LDL/Cholesterol in HDL [Mass ratio] 1.97 {ratio} Normal <2.54 [facility] Comment on above: Order Comment: Speci men Type: BLOOD SPECIMENOrdering Facility: [facility] Address: [address] [place] [address] Result Comment: Refe rence: 1. National Cholesterol Education Program ATP III Guideline At-A-Glance Quick Desk Reference: National Heart, Lung, and Blood [place]. National Institutes of Health. 2001: NIH Publication No. 01-3305. 2. An International Atherosclerosis Society position paper: global recommendations for the management of dyslipidemia: executive summary, Atherosclerosis. 2014: 232(2):410-413. Performed By: #### 2 4331-1, 25869-0 ####[facility] LABCLIA [id number] [address] [place] Cholesterol in VLDL [Mass/Vol] 26 mg/dL Normal <30 [facility] Comment on above: Order Comment: Speci men Type: BLOOD SPECIMENOrdering Facility: [facility] Address: [address] [place] [address] Performed By: #### 2 4331-1, ####[facility] LABCLIA [id number] [address] [address] [place] Cholesterol non HDL [Mass/Vol] 99 mg/dL Normal <130 [facility] Comment on above: Order Comment: Speci men Type: BLOOD SPECIMENOrdering Facility: [facility] Address: [address] [place] [id number] Result Comment: <130 mg/dL, Optimal 130-159 mg/dL, Near optimal/above optimal 160-189 mg/dL, Borderline high 190-219 mg/dL, High >219 mg/dL, Very high Secondary prevention optimal non HDL Cholesterol levels are recommended to be <100 mg/dL Performed By: #### 2 4331-1, ####[facility] LABCLIA [id number] [place] [address] [place] Cholesterol.total/Chol esterol in HDL [Mass ratio] 3.68 {ratio} Normal <5.10 [facility] Comment on above: Order Comment: Speci men Type: BLOOD SPECIMENOrdering Facility: [facility] Address: [address] [place], [place] [address] Performed By: #### 2 4331-1, ####[facility] LABCLIA [id number] [address] [address] [place] FASTING TIME 14 hrs Normal [facility] Comment on above: Order Comment: Speci men Type: BLOOD SPECIMENOrdering Facility: [facility] Address: [address] [place] [address] Performed By: #### 2 4331-1, ####[facility] LABCLIA [id number] [place] [id number] [place] Triglyceride [Mass/Vol] 130 mg/dL Normal <150 [facility] Comment on above: Order Comment: Speci men Type: BLOOD SPECIMENOrdering Facility: [facility] Address: [address], [place] [address] Result Comment: <150 mg/dL, Normal 150-199 mg/dL, Borderline high 200-499 mg/dL, High >499 mg/dL, Very high Performed By: #### 2 4331-1, 38825-8 ####[facility] LABCLIA [id number] ALLISON BAKERK [id number] OF [facility] CNOVon 08-01-2023 CNOV Office Visit (UCWSTR ) LUCAS ASTUDILLO ([id number]) 1955 F Date Time Provider Department 08/01/23 10:45 AM EN[facility]EL WONG [facility] During your visit today, we recorded [...] Carpal Tunn (more content not included)... Normal [facility] CNOVon 05-26-2023 CNOV Office Visit (VASSWS ) LUCAS ASTUDILLO ([id number]) 1955 F Date Time Provider Department 05/26/23 2:30 PM LEXY KOVACS During your visit today, we recorded the following information about you: Pulse Blood pressure 64/minute 125/76 Lexy Kovacs, DO 05/26/2023 3:08 PM Signed [facility] [place] DEPARTMENT OF VASCULAR SURGERY OUTPATIENT VISIT DATE [...] NAME: Lucas (more content not included)... Normal [facility] CNTHERAPYon 05-04-2023 CNTHERAPY OT/PT/Speech Visit ( PTWS) YONNYLUCAS MULLEN ([id number]) 1955 F Date Time Provider Department 05/04/23 3:45 PM REJI MORGAN PTWS Date Time Provider Department Center 05/04/2023 3:45 PM [id number], COLIN PTWS Cristin Shaw Reason for Visit: [...] UNIT TAB) Take one(1) tablet twice daily. Performance Manager: Therapy (PT/OT/Speech/Resp) ID: [id number] 05/04/2023 3:16 PM Author: REJI MORGAN Signed by REJI MORGAN PT on 05/04/2023 at 3:16 PM Document text: Program_ID:[id number] Access Code: [email or web address] URL: [email or web address] Date: 05-04-2023 Prepared By: Reji Morgan Program [...] 2-3 sets - reps Therapy (PT/OT/Speech/Resp) ID: [id number] 05/04/2023 3:13 PM Author: REJI MORGAN Signed by REJI MORGAN PT on 05/04/2023 at 3:13 PM Document text: Program_ID:[id number] Access Code: [email or web address] URL: [email or web address]/ Date: 05-04-2023 Prepared By: Reji Morgan Program [...] - 2 sets - 10 reps Normal [facility] THERAPY NTon 05-04-2023 THERAPY NT HNO ID: [id number] Author: REJI MORGAN, PT Service: ? Author Type: Physical Therapist Type: Therapy (PT/OT/Speech/Resp) Filed: 05/04/2023 15:16 Note Text: Program_ID:[id number] Access Code: [email or web address] URL: [email or web address] Date: 05-04-2023 Prepared By: Reji Morgan Program [...] weekly - 2-3 sets - reps Normal [facility] THERAPY NT HNO ID: [id number] Author: REJI MORGAN PT Service: ? Author Type: Physical Therapist Type: Therapy (PT/OT/Speech/Resp) Filed: 05/04/2023 15:13 Note Text: Program_ID:[id number] Access Code: [email or web address] URL: [email or web address] Date: 05-04-2023 Prepared By: Reji Morgan Program [...] - 2 sets - 10 reps Normal [facility] CNOVon 04-21-2023 CNOV Office Visit (FAMPWS ) LUCAS ASTUDILLO ([id number]) 1955 F Date Time Provider Department 04/21/23 3:00 PM [facility] During your visit today, we recorded [...] arm with trying to reach overhead, negative [place]'s, negative Martinez, negative lift off. Tender trigger [...] - TIZANID (more content not included)... Normal [facility] XR Chest PA and Lateralon IMPRESSION: No acute radiographic abnormality. Asset Analyst: PSCB Transcribe Date/Time: Mar 31 2023 12:59P Dictated by : JESUSITA RODRIGUEZ MD This examination was interpreted and the report reviewed and electronically signed by: JESUSITA RODRIGUEZ MD on Mar 31 2023 12:59PM [facility] DIVISION OF RADIOLOGY * * *Final Report* [...] in the spine. DIVISION OF RADIOLOGY Provider, [facility] - 03/31/2023 * * *Final Report* * [...] spine. IMPRESSION IMPRESSION: No acute radiographic abnormality. Asset Analyst: TARAN Transcribe Date/Time: Mar 31 2023 12:59P Dictated by : JESUSITA RODRIGUEZ MD This examination was interpreted and the report reviewed and electronically signed by: JESUSITA RODRIGUEZ MD on Mar 31 2023 12:59PM EST [facility] Radiology Study observation (narrative) [facility] XR Chest PA and LateralOrder ed By: Ccf Provider on 03-31-2023 [facility] ELLIOT SCREENING W TOMOon 01-05 [facility] XR Foot - bilateral AP and L ateral and obliqueon 12-18-2022 IMPRESSION: No acute osseous abnormality Asset Analyst: [facility] Transcribe Date/Time: Dec 18 2022 7:42A Dictated by : ESTRELLA PINEDA MD This examination was interpreted and the report reviewed and electronically signed by: ESTRELLA PINEDA MD on Dec 18 2022 7:47AM [facility] DIVISION OF RADIOLOGY * * *Final Report* [...] plantar calcaneal spur. DIVISION OF RADIOLOGY Provider, [facility] - 12/18/2022 * * *Final Report* * [...] spur. IMPRESSION IMPRESSION: No acute osseous abnormality Asset Analyst: [facility] Transcribe Date/Time: Dec 18 2022 7:42A Dictated by : ESTRELLA PINEDA MD This examination was interpreted and the report reviewed and electronically signed by: ESTRELLA PINEDA MD on Dec 18 2022 7:47AM EST [facility] XR Foot - bilateral AP and L ateral and obliqueOrdered By: Ccf Provider on 12-18-2022 [facility] XR Foot - bilateral AP and L ateral and obliqueon 12-16-2022 Radiology Study observation (narrative) [facility] DXA-AXIAL SKELETONon 023 LOWEST T-SCORE -2.0 [facility] US SCREENING FOR AAAon 12-03 [facility] XR Lumbar spine 3 Viewson IMPRESSION: DEGENERATIVE CHANGE AND ALIGNMENT ABNORMALITIES DESCRIBED. Asset Analyst: TARAN Transcribe Date/Time: Nov 17 2022 2:21P Dictated by : JEN COLINDRES MD This examination was interpreted and the report reviewed and electronically signed by: JEN COLINDRES MD on Nov 17 2022 2:23PM [facility] DIVISION OF RADIOLOGY * * *Final Report* [...] bony abnormality DIVISION OF RADIOLOGY Provider, Alison Fagan [facility] - 11/17/2022 * * *Final Report* * [...] IMPRESSION: DEGENERATIVE CHANGE AND ALIGNMENT ABNORMALITIES DESCRIBED. Asset Analyst: PSCB Transcribe Date/Time: Nov 17 2022 2:21P Dictated by : JEN COLINDRES MD This examination was interpreted and the report reviewed and electronically signed by: JEN COLINDRES MD on Nov 17 2022 2:23PM EST [facility] XR Lumbar spine 3 ViewsOrder ed By: Ccf Provider on 11-17-2022 [facility] XR Lumbar spine 3 Viewson Radiology Study observation (narrative) [facility] STREP A MOLECULAR (POC)on Procedural Control Valid [facility] Strep A (POCT) Negative Negative [facility] SURGICAL PATHOLOGYon 023 Case Report Surgical Pathology R eport Case: [id number] Authorizing Provider: Eriberto Disla MD Collected: 10/20/2022 09:07 AM Ordering Location: Ambulatory Surgery Received: 10/20/2022 01:38 PM Pathologist: Chanelle Felix MD Specimens: A) - DUODENUM BIOPSY B) - ANTRUM (STOMACH) BIOPSY, Antral for H/H C) - ESOPHAGUS BIOPSY, distal esophagus bx D) - ESOPHAGUS MID BIOPSY [facility] FINAL DIAGNOSIS A. Duodenum, biopsy: -Duodenal [...] significant histologic abnormality -Negative for intraepithelial eosinophils [facility] Gross Description A. DUODENUM BIOPSY Received [...] in one cassette. Gross examination performed at [facility], [address] [place] [address] JT 10/21/2022 2:[address] [facility] Performing Lab Diagnostic interpret ation performed at [facility], [address] [facility] [address] CLIA# [id number] Access Representative: Oracio Hilario M.D. [facility] XR Hand - right PA and Later al and Obliqueon 10-21-2022 IMPRESSION: No radiographic evidence of acute osseous abnormality Asset Analyst: [facility] Transcribe Date/Time: Oct 21 2022 1:32P Dictated by : YOUNG CHAO MD This examination was interpreted and the report reviewed and electronically signed by: YUONG CHAO MD on Oct 21 2022 1:34PM [facility] DIVISION OF RADIOLOGY * * *Final Report* [...] radiopaque foreign body. DIVISION OF RADIOLOGY Provider, [facility] - 10/21/2022 * * *Final Report* [...] No radiographic evidence of acute osseous abnormality Asset Analyst: [facility] Transcribe Date/Time: Oct 21 2022 1:32P Dictated by : YOUNG CHAO MD This examination was interpreted and the report reviewed and electronically signed by: YOUNG CHAO MD on Oct 21 2022 1:34PM EST [facility] Radiology Study observation (narrative) [facility] XR Hand - right PA and Later al and ObliqueOrdered By: Ccf Provider on 10-21-2022 [facility] EGD DIAGNOSTICon 10-20-2022 [facility] XR CHEST 2V FRONTAL/LATon [facility] XR Chest PA and Lateralon IMPRESSION: No acute radiographic abnormality. Asset Analyst: [facility] Transcribe Date/Time: Feb 17 2022 10:30A Dictated by : JEN COLINDRES MD This examination was interpreted and the report reviewed and electronically signed by: JEN COLINDRES MD on Feb 17 2022 10:31AM [facility] DIVISION OF RADIOLOGY * * *Final Report* [...] soft tissues: Unremarkable. DIVISION OF RADIOLOGY Provider, [facility] - 02/17/2022 * * *Final Report* * [...] Unremarkable. IMPRESSION IMPRESSION: No acute radiographic abnormality. Asset Analyst: PSCB Transcribe Date/Time: Feb 17 2022 10:30A Dictated by : JEN COLINDRES MD This examination was interpreted and the report reviewed and electronically signed by: JEN COLINDRES MD on Feb 17 2022 10:31AM EST [facility] Radiology Study observation (narrative) [facility] XR Chest PA and LateralOrder ed By: Ccf Provider on 02-17-2022 [facility] STREP A MOLECULAR (POC)on Procedural Control Valid [facility] Strep A (POCT) Negative Negative [facility] Vital Signs Date Time Vital Sign Value Performing Clinician Facility 10-08-2024 04:18-0400 Body temperature 98.9 [degF] Dr. Eugenio Peralta MD Work Phone: [facility] 10-08-2024 04:18-0400 Diastolic blood pressure 96 mm[Hg] Dr. Eugenio Peralta MD Work Phone: [facility] 10-08-2024 04:18-0400 Heart rate 57 /min Dr. Eugenio Peralta MD Work Phone: [facility] 10-08-2024 04:18-0400 Respiratory rate 18 /min Dr. Eugenio Peralta MD Work Phone: [facility] 10-08-2024 04:18-0400 SaO2% (BldA) [Mass fraction] 100 % Dr. Eugenio Peralta MD Work Phone: [facility] 10-08-2024 04:18-0400 Systolic blood pressure 167 mm[Hg] Dr. Eugenio Peralta MD Work Phone: [facility] 10-08-2024 03:57-0400 Body height 167.[address] Eugenio Peralta MD Work Phone: [facility] 10-08-2024 03:57-0400 Body mass index (BMI) [Ratio] 31.7 kg/m2 Dr. Eugenio Peralta MD Work Phone: [facility] 10-08-2024 03:57-0400 Body weight 89.[address] Eugenio Peralta MD Work Phone: [facility] 03-14-2024 11:14-0500 Body mass index (BMI) [Ratio] 31.08 kg/m2 Eugenio Peralta MD Work Phone: [facility] 03-14-2024 11:14-0500 Body weight 87.4 kg Eugenio Peralta MD Work Phone: [facility] 03-14-2024 11:14-0500 Diastolic blood pressure 72 mm[Hg] Eugenio Peralta MD Work Phone: [facility] 03-14-2024 11:14-0500 Heart rate 64 /min Eugenio Peralta MD Work Phone: [facility] 03-14-2024 11:14-0500 SaO2% (BldA) [Mass fraction] 97 % Eugenio Peralta MD Work Phone: [facility] 03-14-2024 11:14-0500 Systolic blood pressure 122 mm[Hg] Eugenio Peralta MD Work Phone: [facility] 02-22-2024 11:45-0500 Diastolic blood pressure 88 mm[Hg] Lola Farris APRN.BODY AND FRAME TECHNICIAN Work Phone: [facility] Comment on above: BALA BP 02-22-2024 11:45-0500 Heart rate 58 /min Lola Farris KITCHEN CHEF.BODY AND FRAME TECHNICIAN Work Phone: [facility] 02-22-2024 11:45-0500 Systolic blood pressure 158 mm[Hg] Lola Haasha KITCHEN CHEF.BODY AND FRAME TECHNICIAN Work Phone: [facility] Comment on above: BALA BP 02-22-2024 11:36-0500 Respiratory rate 16 /min Lola Farris KITCHEN CHEF.BODY AND FRAME TECHNICIAN Work Phone: [facility] 02-22-2024 11:36-0500 SaO2% (BldA) [Mass fraction] 98 % Lola Farris KITCHEN CHEF.BODY AND FRAME TECHNICIAN Work Phone: [facility] 01-07-2024 10:49-0400 Body height 167.7 cm Tiffani Alfreda KITCHEN CHEF.BODY AND FRAME TECHNICIAN Work Phone: [facility] 01-07-2024 10:49-0400 Body mass index (BMI) [Ratio] 30.71 kg/m2 Tiffani Alfreda KITCHEN CHEF.BODY AND FRAME TECHNICIAN Work Phone: [facility] 01-07-2024 10:49-0400 Body weight 86.36 kg Tiffani [place] KITCHEN CHEF.BODY AND FRAME TECHNICIAN Work Phone: [facility] 01-07-2024 10:49-0400 Diastolic blood pressure 70 mm[Hg] Tiffani [place] KITCHEN CHEF.BODY AND FRAME TECHNICIAN Work Phone: [facility] 01-07-2024 10:49-0400 Respiratory rate 16 /min Tiffani [place] KITCHEN CHEF.BODY AND FRAME TECHNICIAN Work Phone: [facility] 01-07-2024 10:49-0400 Systolic blood pressure 122 mm[Hg] Tiffani Alfreda KITCHEN CHEF.BODY AND FRAME TECHNICIAN Work Phone: [facility] 12-24-2023 14:19-0400 Diastolic blood pressure 80 mm[Hg] Natalia Suppan KITCHEN CHEF.BODY AND FRAME TECHNICIAN Work Phone: [facility] 12-24-2023 14:19-0400 Systolic blood pressure 120 mm[Hg] Natalia Suppan KITCHEN CHEF.BODY AND FRAME TECHNICIAN Work Phone: [facility] 12-24-2023 14:07-0400 Body mass index (BMI) [Ratio] 31.63 kg/m2 Natalia Suppan KITCHEN CHEF.BODY AND FRAME TECHNICIAN Work Phone: [facility] 12-24-2023 14:07-0400 Body weight 88.9 kg Natalia Suppan KITCHEN CHEF.BODY AND FRAME TECHNICIAN Work Phone: [facility] 12-24-2023 14:07-0400 Heart rate 68 /min Natalia Suppan KITCHEN CHEF.BODY AND FRAME TECHNICIAN Work Phone: [facility] 12-24-2023 14:07-0400 Respiratory rate 16 /min Natalia Suppan KITCHEN CHEF.BODY AND FRAME TECHNICIAN Work Phone: [facility] 12-24-2023 14:07-0400 SaO2% (BldA) [Mass fraction] 98 % Natalia Suppan KITCHEN CHEF.BODY AND FRAME TECHNICIAN Work Phone: [facility] 12-03-2023 09:27-0400 Body mass index (BMI) [Ratio] 31.15 kg/m2 Mayra Lan PA-C Work Phone: [facility] 12-03-2023 09:27-0400 Body temperature 97.7 [degF] Mayra Lan PA-C Work Phone: [facility] 12-03-2023 09:27-0400 Body weight 87.54 kg Mayra Lan PA-C Work Phone: [facility] 12-03-2023 09:27-0400 Diastolic blood pressure 86 mm[Hg] Mayra Lan PA-C Work Phone: [facility] 12-03-2023 09:27-0400 Heart rate 64 /min Mayra Lan PA-C Work Phone: [facility] 12-03-2023 09:27-0400 Respiratory rate 16 /min Mayra Lan PA-C Work Phone: [facility] 12-03-2023 09:27-0400 SaO2% (BldA) [Mass fraction] 97 % Mayra Lan PA-C Work Phone: [facility] 12-03-2023 09:27-0400 Systolic blood pressure 136 mm[Hg] Mayra Lan PA-C Work Phone: [facility] 10-26-2023 11:20-0400 Diastolic blood pressure 88 mm[Hg] Eugenio Peralta MD Work Phone: [facility] 10-26-2023 11:20-0400 Systolic blood pressure 136 mm[Hg] Eugenio Peralta MD Work Phone: [facility] 10-26-2023 10:38-0400 Body height 167.6 cm Eugenio Peralta MD Work Phone: [facility] 10-26-2023 10:38-0400 Body mass index (BMI) [Ratio] 31.47 kg/m2 Eugenio Peralta MD Work Phone: [facility] 10-26-2023 10:38-0400 Body weight 88.45 kg Eugenio Peralta MD Work Phone: [facility] 10-26-2023 10:38-0400 Heart rate 63 /min Eugenio Peralta MD Work Phone: [facility] 10-26-2023 10:38-0400 SaO2% (BldA) [Mass fraction] 98 % Eugenio Peralta MD Work Phone: [facility] 08-01-2023 10:40-0400 Body mass index (BMI) [Ratio] 31.46 kg/m2 Enmanuel Wong MD Work Phone: [facility] 08-01-2023 10:40-0400 Body temperature 98.1 [degF] Enmanuel Wong MD Work Phone: [facility] 08-01-2023 10:40-0400 Body weight 88.4 kg Enmanuel Wogn MD Work Phone: [facility] 08-01-2023 10:40-0400 Diastolic blood pressure 79 mm[Hg] Enmanuel Wong MD Work Phone: [facility] 08-01-2023 10:40-0400 Heart rate 62 /min Enmanuel Wong MD Work Phone: [facility] 08-01-2023 10:40-0400 Respiratory rate 18 /min Enmanuel Wong MD Work Phone: [facility] 08-01-2023 10:40-0400 SaO2% (BldA) [Mass fraction] 99 % Enmanuel Wong MD Work Phone: [facility] 08-01-2023 10:40-0400 Systolic blood pressure 162 mm[Hg] Enmanuel Wong MD Work Phone: [facility] 05-26-2023 14:16-0500 Diastolic blood pressure 76 mm[Hg] Lexy Kovacs DO Work Phone: [facility] 05-26-2023 14:16-0500 Heart rate 64 /min Lexy Kovacs DO Work Phone: [facility] 05-26-2023 14:16-0500 SaO2% (BldA) [Mass fraction] 96 % Lexy Kovacs DO Work Phone: [facility] 05-26-2023 14:16-0500 Systolic blood pressure 125 mm[Hg] Lexy Kovacs DO Work Phone: [facility] 02-17-2023 08:46-0500 Diastolic blood pressure 77 mm[Hg] Elxy Kovacs DO Work Phone: [facility] 02-17-2023 08:46-0500 Heart rate 61 /min Lexy Kovacs DO Work Phone: [facility] 02-17-2023 08:46-0500 SaO2% (BldA) [Mass fraction] 96 % Lexy Kovacs DO Work Phone: [facility] 02-17-2023 08:46-0500 Systolic blood pressure 128 mm[Hg] Lexy Kovacs DO Work Phone: [facility] 11-14-2022 10:03-0400 Body weight 87.54 kg PALMER Hughes PA-C Work Phone: [facility] 11-14-2022 10:03-0400 Diastolic blood pressure 70 mm[Hg] PALMER JIMENEZC Work Phone: [facility] 11-14-2022 10:03-0400 Heart rate 67 /min NA Hughes PA-C Work Phone: [facility] 11-14-2022 10:03-0400 Respiratory rate 16 /min NA Hughes PA-C Work Phone: [facility] 11-14-2022 10:03-0400 SaO2% (BldA) [Mass fraction] 97 % NA Hughes PA-C Work Phone: [facility] 11-14-2022 10:03-0400 Systolic blood pressure 120 mm[Hg] NA Hughes PA-C Work Phone: [facility] 11-01-2022 10:08-0400 Body temperature 98.29 [degF] Johanne Tom KITCHEN CHEF.BODY AND FRAME TECHNICIAN Work Phone: [facility] 11-01-2022 10:08-0400 Body weight 87.73 kg Johanne Tom KITCHEN CHEF.BODY AND FRAME TECHNICIAN Work Phone: [facility] 11-01-2022 10:08-0400 Diastolic blood pressure 80 mm[Hg] Johanne Tom KITCHEN CHEF.BODY AND FRAME TECHNICIAN Work Phone: [facility] 11-01-2022 10:08-0400 Heart rate 57 /min Johanne Tom KITCHEN CHEF.BODY AND FRAME TECHNICIAN Work Phone: [facility] 11-01-2022 10:08-0400 Respiratory rate 21 /min Johanne Tom KITCHEN [employer].BODY AND FRAME TECHNICIAN Work Phone: [facility] 11-01-2022 10:08-0400 SaO2% (BldA) [Mass fraction] 98 % Johanne Tom KITCHEN [employer]F.BODY AND FRAME TECHNICIAN Work Phone: [facility] 11-01-2022 10:08-0400 Systolic blood pressure 132 mm[Hg] Johanne Tom KITCHEN CHEF.BODY AND FRAME TECHNICIAN Work Phone: [facility] 10-28-2022 10:32-0400 Body temperature 97.9 [degF] Crystal Burrows PA-C Work Phone: [facility] 10-28-2022 10:32-0400 Diastolic blood pressure 88 mm[Hg] Crystal Burrows PA-C Work Phone: [facility] 10-28-2022 10:32-0400 Heart rate 68 /min Crystal Burrows PA-C Work Phone: [facility] 10-28-2022 10:32-0400 SaO2% (BldA) [Mass fraction] 97 % Crystal Burrows PA-C Work Phone: [facility] 10-28-2022 10:32-0400 Systolic blood pressure 122 mm[Hg] Crystal Burrows PA-C Work Phone: [facility] 10-20-2022 09:45-0400 Diastolic blood pressure 86 mm[Hg] Eriberto Disla MD Work Phone: [facility] 10-20-2022 09:45-0400 Heart rate 57 /min Eriberto Disla MD Work Phone: [facility] 10-20-2022 09:45-0400 Respiratory rate 16 /min Eriberto Disla MD Work Phone: [facility] 10-20-2022 09:45-0400 SaO2% (BldA) [Mass fraction] 96 % Eriberto Disla MD Work Phone: [facility] 10-20-2022 09:45-0400 Systolic blood pressure 158 mm[Hg] Eriberto Disla MD Work Phone: [facility] 10-20-2022 07:59-0400 Body temperature 97.81 [degF] Eriberto Disla MD Work Phone: [facility] 07-22-2022 13:16-0400 Body height 167.6 cm Crystal Burrows PA-C Work Phone: [facility] 07-22-2022 13:16-0400 Body temperature 96.21 [degF] Crystal Burrows PA-C Work Phone: [facility] 07-22-2022 13:16-0400 Body weight 91.54 kg Crystal Zeina PA-C Work Phone: [facility] 07-22-2022 13:16-0400 Diastolic blood pressure 88 mm[Hg] Crystal Zeina PA-C Work Phone: [facility] 07-22-2022 13:16-0400 Heart rate 82 /min Crystal Zeina PA-C Work Phone: [facility] 07-22-2022 13:16-0400 SaO2% (BldA) [Mass fraction] 100 % Crystal Burrows PA-C Work Phone: [facility] 07-22-2022 13:16-0400 Systolic blood pressure 120 mm[Hg] Crystal Burrows PA-C Work Phone: [facility] 02-17-2022 09:27-0500 Diastolic blood pressure 98 mm[Hg] Lola Haagen KITCHEN CHEF.BODY AND FRAME TECHNICIAN Work Phone: [facility] 02-17-2022 09:27-0500 Systolic blood pressure 150 mm[Hg] Lola Haagen KITCHEN CHEF.BODY AND FRAME TECHNICIAN Work Phone: [facility] 02-17-2022 08:56-0500 Body temperature 99.81 [degF] Lola Haagen KITCHEN CHEF.BODY AND FRAME TECHNICIAN Work Phone: [facility] 02-17-2022 08:56-0500 Body weight 89.63 kg Lola Haagen KITCHEN CHEF.BODY AND FRAME TECHNICIAN Work Phone: [facility] 02-17-2022 08:56-0500 Heart rate 77 /min Lola Haagen KITCHEN CHEF.BODY AND FRAME TECHNICIAN Work Phone: [facility] 02-17-2022 08:56-0500 Respiratory rate 16 /min Lola Haagen KITCHEN CHEF.BODY AND FRAME TECHNICIAN Work Phone: [facility] 02-17-2022 08:56-0500 SaO2% (BldA) [Mass fraction] 97 % Lola Haagen KITCHEN CHEF.BODY AND FRAME TECHNICIAN Work Phone: [facility] 02-13-2022 09:55-0500 Body temperature 98.49 [degF] Alberto Rey KITCHEN CHEF.BODY AND FRAME TECHNICIAN Work Phone: [facility] 02-13-2022 09:55-0500 Body weight 91.54 kg Alberto Le KITCHEN CHEF.BODY AND FRAME TECHNICIAN Work Phone: [facility] 02-13-2022 09:55-0500 Diastolic blood pressure 92 mm[Hg] Alberto Rey KITCHEN CHEF.BODY AND FRAME TECHNICIAN Work Phone: [facility] 02-13-2022 09:55-0500 Heart rate 71 /min Alberto Rey KITCHEN CHEF.BODY AND FRAME TECHNICIAN Work Phone: [facility] 02-13-2022 09:55-0500 Respiratory rate 20 /min Alberto Rey KITCHEN CHEF.BODY AND FRAME TECHNICIAN Work Phone: [facility] 02-13-2022 09:55-0500 SaO2% (BldA) [Mass fraction] 95 % Alberto Le KITCHEN CHEF.BODY AND FRAME TECHNICIAN Work Phone: [facility] 02-13-2022 09:55-0500 Systolic blood pressure 142 mm[Hg] Alberto Rey KITCHEN CHEF.BODY AND FRAME TECHNICIAN Work Phone: [facility] 01-02-2022 14:29-0400 Body height 168.9 cm Tiffani Alfreda KITCHEN CHEF.BODY AND FRAME TECHNICIAN Work Phone: [facility] 01-02-2022 14:29-0400 Body weight 90.72 kg Tiffani Alfreda KITCHEN CHEF.BODY AND FRAME TECHNICIAN Work Phone: [facility] 01-02-2022 14:29-0400 Diastolic blood pressure 60 mm[Hg] Tiffani Alfreda KITCHEN CHEF.BODY AND FRAME TECHNICIAN Work Phone: [facility] 01-02-2022 14:29-0400 Systolic blood pressure 120 mm[Hg] Tiffani [place] K[employer]EN CHEF.BODY AND FRAME TECHNICIAN Work Phone: [facility] 12-17-2021 16:03-0400 Diastolic blood pressure 79 mm[Hg] Mi Nurse Work Phone: [facility] 12-17-2021 16:03-0400 Heart rate 59 /min Mi Nurse Work Phone: [facility] 12-17-2021 16:03-0400 Systolic blood pressure 137 mm[Hg] Mi Nurse Work Phone: [facility] Encounters Encounter Date Encounter Type Care Provider Facility Start: 10-08-2024 Evaluation and manag ement of inpatient Dr. Dylan Soni DO -Intensive Care Unit Work Phone: Start: 08-27-2024 End: 08-29-2024 Refill Eugenio Peralta MD Work Phone: [facility] [place] Comment on above: Refill Request Start: 04-28-2024 End: 04-28-2024 ambulatory José Miguel Lambert Facility:[facility] Start: 03-14-2024 End: 03-14-2024 [facility] Start: 03-14-2024 End: 03-14-2024 Patient encounter procedure Eugenio Peralta MD Work Phone: [facility] [place] Comment on above: Primary hypertension (Primary Dx) Start: 02-22-2024 End: 02-22-2024 ambulatory [facility] Facility:[facility] Start: 02-22-2024 End: 02-22-2024 Subsequent hospital visit by physician [facility] [place] Work Phone: Radiology Comment on above: Acute pain of right knee [M25.561] Start: 02-22-2024 End: 02-22-2024 Office outpatient visit 25 minutes Lola Farris APRN.CNP Work Phone: Family [facility] Comment on above: Primary hypertension (Primary Dx); Acute pain of right knee Start: 02-22-2024 End: 02-22-2024 ambulatory [facility] Facility:[facility] Start: 02-11-2024 ambulatory [facility] Start: 02-11-2024 End: 02-11-2024 [facility] Start: 01-27-2024 End: 01-27-2024 [facility] Start: 01-08-2024 End: 01-11-2024 Get Medical Advice Tiffani Gant APRN.CNP Work Phone: OB/Gynecology Comment on above: Med order to [facility] Start: 01-07-2024 End: 01-07-2024 Patient encounter procedure Tiffani Gant APRN.CNP Work Phone: OB/Gynecology Comment on above: Encounter for gyneco logical examination (general) (routine) without abnormal findings (Primary Dx); Encounter for screening mammogram for breast cancer; Postmenopausal atrophic vaginitis; Screening for malignant neoplasm of cervix; Encounter for screening for human papillomavirus (HPV) Start: 01-07-2024 End: 01-07-2024 Patient encounter status Tiffani Gant APRN.CNP Work Phone: [facility] Start: 01-07-2024 End: 01-07-2024 ambulatory EUGENIO PERALTA Facility:[facility] Start: 01-07-2024 End: 01-07-2024 Subsequent hospital visit by physician [facility] Comment on above: Encounter for screen ing mammogram for malignant neoplasm of breast [Z12.31] Start: 12-30-2023 End: 12-30-2023 ambulatory [facility] Nurse [facility] Work Phone: [facility] [place] Start: 12-30-2023 End: 12-30-2023 Patient encounter procedure [facility] Nurse Amaral Work Phone: [facility] [place] Start: 12-24-2023 End: 12-24-2023 Office outpatient visit 15 minutes Natalia Monge APRN.CNP [facility] Comment on above: Sinus congestion (Pr imary Dx); Elevated blood pressure reading without diagnosis of hypertension Start: 12-24-2023 End: 12-24-2023 ambulatory NATALIA MONGE Facility:[facility] Start: 12-22-2023 End: 12-22-2023 Telephone encounter Natalia Monge APRN.CNP Work Phone: [facility] [place] Comment on above: Appointment; Patient Update Start: 12-14-2023 End: 12-14-2023 Jessica Hughes PA-C Work Phone: [facility] Comment on above: Refill Request Start: 12-03-2023 End: 12-03-2023 ambulatory MAYRA LAN Facility:[facility] Start: 12-03-2023 End: 12-03-2023 Patient encounter procedure Mayra Lan PA-C Work Phone: [facility] [place] Comment on above: Contact dermatitis, unspecified contact dermatitis type, unspecified trigger (Primary Dx) Start: 11-25-2023 End: 11-25-2023 ambulatory Eugenio Peralta MD Work Phone: [facility] [place] Comment on above: RSV vaccination Start: 10-29-2023 End: 10-30-2023 Emergency department patient visit [place] Facility:[facility] Start: 10-26-2023 End: 10-26-2023 Patient encounter procedure Eugenio Peralta MD Work Phone: [facility] [place] Comment on above: Mixed hyperlipidemia (Primary Dx); Chronic kidney disease, stage 3a (HCC); Screening for depression; Encounter for screening examination for other mental health and behavioral disorders Start: 10-26-2023 End: 10-26-2023 ambulatory EUGENIO PERALTA Facility:[facility] Start: 10-20-2023 End: 10-20-2023 ambulatory EUGENIO Hanson FABIAN Facility:[facility] Start: 08-26-2023 ambulatory Tiffani Gant APRN.CNP Work Phone: OB/Gynecology Comment on above: Mammogram Start: 08-01-2023 End: 08-01-2023 ambulatory EUGENIO PERALTA Facility:[facility] Start: 08-01-2023 End: 08-01-2023 Patient encounter procedure Enmanuel Wong MD Work Phone: [facility] Comment on above: Rib pain on left shanita e (Primary Dx) Start: 06-13-2023 ambulatory Eugenio Peralta MD Work Phone: [facility] [place] Comment on above: Sucralfate Start: 05-26-2023 End: 05-26-2023 ambulatory LEXY KOVACS Facility:[facility] Start: 05-26-2023 End: 05-26-2023 Patient encounter procedure Lexy Kovacs DO Work Phone: Vascular Surgery Comment on above: Symptomatic varicose veins of both lower extremities (Primary Dx) Start: 05-04-2023 End: 05-04-2023 ambulatory EUGENIO PERALTA Facility:[facility] Start: 04-21-2023 End: 04-21-2023 ambulatory MEHNAZ HUGHES Facility:[facility] Start: 03-31-2023 End: 03-31-2023 Subsequent hospital visit by physician [facility] [place] Work Phone: Radiology Comment on above: URI, acute [J06.9] Start: 02-23-2023 ambulatory Harry Golias P T Work Phone: [facility] Comment on above: Orthotics Start: 02-17-2023 End: 02-17-2023 Patient encounter procedure Lexy Kovacs DO Work Phone: Vascular Surgery Comment on above: Symptomatic varicose veins of both lower extremities Start: 02-10-2023 End: 02-10-2023 ambulatory Reji Sylvia PT Work Phone: [facility] Comment on above: Arthritis of right s acroiliac joint (Primary Dx) Start: 02-04-2023 End: 02-04-2023 ambulatory Harry Golias PT Work Phone: [facility] Comment on above: Plantar fasciitis (P rimary Dx); Flat feet, bilateral Start: 01-27-2023 End: 01-27-2023 ambulatory Reji Sylvia PT Work Phone: [facility] Comment on above: Arthritis of right s acroiliac joint (Primary Dx) Start: 01-19-2023 End: 01-19-2023 ambulatory Harry Golias PT Work Phone: [facility] Comment on above: Plantar fasciitis; Flat feet, bilateral Start: 01-13-2023 End: 01-13-2023 ambulatory Reji Sylvia PT Work Phone: [facility] Comment on above: Arthritis of right s acroiliac joint (Primary Dx) Start: 01-10-2023 End: 01-10-2023 ambulatory [facility] Nurse [place] Work Phone: [facility] [place] Start: 01-06-2023 Documentation procedure Mammog deven Coordinator [facility] Start: 01-06-2023 Letter encounter Mammography Coordinator [facility] Department Start: 01-06-2023 Telephone encounter Eugenio Peralta MD Work Phone: [facility] [place] Comment on above: Consult Start: 01-05-2023 End: 01-05-2023 Subsequent hospital visit by physician [facility] Comment on above: Encounter for screen ing mammogram for malignant neoplasm of breast [Z12.31] Start: 12-18-2022 End: 12-18-2022 Patient encounter procedure Jt Duarte Work Phone: Podiatry Comment on above: Plantar fasciitis (P rimary Dx); Pes planus of both feet Start: 12-16-2022 End: 12-16-2022 ambulatory Reji Sylvia PT Work Phone: [facility] Comment on above: Arthritis of right s acroiliac joint (Primary Dx) Start: 12-16-2022 End: 12-16-2022 Subsequent hospital visit by physician [facility] Work Phone: Radiology Comment on above: Pain [R52] Start: 12-12-2022 End: 12-12-2022 ambulatory Reji Sylvia PT Work Phone: [facility] Comment on above: Arthritis of right s acroiliac joint (Primary Dx) Start: 12-04-2022 End: 12-04-2022 ambulatory Reji Sylvia PT Work Phone: [facility] Comment on above: Arthritis of right s acroiliac joint (Primary Dx) Start: 12-03-2022 ambulatory Mavis Tucker on PA-C Work Phone: [facility] Comment on above: AAA Screening Start: 12-03-2022 End: 12-03-2022 Subsequent hospital visit by physician [facility] Work Phone: Radiology Comment on above: Asymptomatic postmen opausal state [Z78.0] Start: 12-03-2022 End: 12-03-2022 Subsequent hospital visit by physician [facility] Work Phone: Radiology Comment on above: Pulsatile abdomen [R 19.8] Start: 11-26-2022 Orders Only Jt Hurd an Work Phone: Appointment Center Comment on above: Pain (Primary Dx) Start: 11-24-2022 ambulatory No Pcp NATALIA Bhagat Start: 11-19-2022 Telephone encounter Eugenio Peralta MD Work Phone: [facility] [place] Comment on above: Orders Start: 11-14-2022 End: 11-14-2022 Subsequent hospital visit by physician [facility] [place] Work Phone: Radiology Comment on above: Arthritis of right s acroiliac joint [M47.818] Start: 11-14-2022 End: 11-14-2022 Patient encounter procedure Mavis Hughes PA-C Work Phone: [facility] [place] Comment on above: Essential hypertensi on [...] D level; Chronic kidney disease, stage 3a (HCC); Medicare annual wellness visit, subsequent; Wellness examination Start: 11-14-2022 End: 11-14-2022 Patient encounter status Mavis Hughes PA-C Work Phone: [facility] Work Phone: Start: 11-01-2022 End: 11-01-2022 Patient encounter procedure Johanne Santos APRN.BODY AND FRAME TECHNICIAN Work Phone: [facility] Comment on [...] 10-21-2022 Subsequent hospital visit by physician [facility] [place] Work Phone: Radiology Comment on above: Hand pain, right [M7 9.641] Start: 10-20-2022 End: 10-20-2022 Subsequent hospital visit by physician Eriberot Disla MD Work Phone: Ambulatory Surgery Comment on above: Gastroesophageal ref lux disease with esophagitis without hemorrhage [K21.00] Start: 07-22-2022 End: 07-22-2022 Patient encounter procedure Crystal Pastrana PA-C Work Phone: General Surgery Comment on above: Dyskinesia of esopha thor; Gastroesophageal reflux disease without esophagitis; Hx of acute gastritis Start: 06-02-2022 Telephone encounter Mavis Hughes PA-C Work Phone: [facility] [place] Comment on above: Referral Request Start: 05-26-2022 Telephone encounter Tiffani [facility] emma KITCHEN CHEF.BODY AND FRAME TECHNICIAN Work Phone: OB/Gynecology Comment on above: Orders Start: 05-12-2022 Telephone encounter Mavis Hughes PA-C Work Phone: [facility] [place] Comment on above: Patient Question Start: 05-12-2022 End: 05-12-2022 Nursing evaluation of patient and report Mi Nurse Work Phone: [facility] [place] Comment on above: Need for vaccination (Primary Dx) Start: 02-17-2022 End: 02-17-2022 Subsequent hospital visit by physician [facility] [place] Work Phone: Radiology Comment on above: Sinobronchitis [J32. 9, J40] Start: 02-17-2022 End: 02-17-2022 Office outpatient visit 15 minutes Lola Farris APRN.JAIRON Work Phone: [facility] [place] Comment on above: Sinobronchitis (Prim alisia Dx) Start: 02-13-2022 End: 02-13-2022 Patient encounter procedure Alberto eL NATALIA.JAIRON Work Phone: [facility] Comment on above: URI, acute (Primary Dx); Sore throat Start: 01-27-2022 Refill Mavis Tucker on PA-C Work Phone: [facility] [place] Comment on above: Refill Request Start: 01-03-2022 Documentation procedure Mammog deven Coordinator [facility] Start: 01-03-2022 Letter encounter Mammography Coordinator [facility] Start: 01-02-2022 End: 01-02-2022 Subsequent hospital visit by physician [facility] Comment on above: Encounter for screen ing mammogram for malignant neoplasm of breast [Z12.31] Start: 01-02-2022 End: 01-02-2022 Patient encounter procedure Tiffani Gant APRN.BODY AND FRAME TECHNICIAN Work Phone: OB/Gynecology Comment on above: Encounter for gyneco logical examination (general) (routine) without abnormal findings (Primary Dx); Encounter for screening mammogram for breast cancer; Postmenopausal atrophic vaginitis; Lichen sclerosus Start: 01-02-2022 End: 01-02-2022 Patient encounter status Tiffani Gant APRN.BODY AND FRAME TECHNICIAN Work Phone: OB/Gynecology Start: 12-17-2021 End: 12-17-2021 Nursing evaluation of patient and report Mi Nurse Work Phone: [facility] [place] Comment on above: Essential hypertensi on (Primary Dx) Start: 12-10-2021 Telephone encounter Sharon stearns APRN.CNP Work Phone: OB/Gynecology Comment on above: Orders Start: 11-18-2021 ambulatory Mavis Tucker on PA-C Work Phone: [facility] [place] Comment on above: Tetanus Booster Start: 11-15-2021 End: 11-15-2021 Nursing evaluation of patient and report Mi Nurse Work Phone: Family Medicine [place] Comment on above: Need for vaccination (Primary Dx) Start: 11-01-2021 End: 11-01-2021 Patient encounter procedure Eugenio Peralta MD Work Phone: Family Medicine [place] Comment on above: Need for COVID-19 va ccine (Primary Dx) Start: 05-16-2020 End: 05-16-2020 Patient encounter procedure EUGENIO Gregor [facility] Start: 04-20-2020 End: 04-20-2020 Patient encounter procedure [facility] Procedures Date Procedure Procedure Detail Performing Clinician Start: 10-08-[address] Rosas Peralta MD Work Phone: Start: 01-07-2024 Screening digital breast tomosynthesis bi Tiffani [place] KITCHEN CHEF.BODY AND FRAME TECHNICIAN Work Phone: Start: 12-30-2023 P[employer]ZER-[employer]ION[employer] COVID-19 VACCINE AGE 12+ YR (COMIRNATY) Eugenio Peralta MD Work Phone: Start: 10-26-2023 Adult depression screening assessment Eugenio Peralta MD Work Phone: Start: 10-20-2023 Lipid 1996 panel - Serum or Plasma Rosas Peralta MD Work Phone: Start: 03-31-2023 Radiologic exam chest 2 views Daisy Ri ggraghav KITCHEN CHEF.BODY AND FRAME TECHNICIAN Work Phone: Start: 01-10-2023 P[employer]ER-B[employer] COVID-19 VACCINE (2022- SEASON) AGE 12+ YR Mehnaz Wong MD Work Phone: Start: 01-10-2023 INFLUENZA VACCINE, PRSV FREE, AGE 65+ YR, HIGH DOSE, QUADRIVALENT (FLUZONE HIGH-DOSE) Mehnaz Wong MD Work Phone: Start: 01-05-2023 Screening digital breast tomosynthesis bi Tiffani Alfreda KITCHEN CHEF.BODY AND FRAME TECHNICIAN Work Phone: Start: 12-16-2022 Radex foot complete minimum 3 views Huseyin lloyd Testke Work Phone: Start: 12-03-2022 Dxa bone density study 1/> sites axial skel Mavis Ko JIMENEZC Work Phone: Start: 12-03-2022 Us abdominal aorta real time screen study aaa Mavis Ko AYOUB-C Work Phone: Start: 11-15-2022 Lipid 1996 panel - Serum or Plasma Reji Morgan PT Work Phone: Start: 11-14-2022 Radex spine lumbosacral 2/3 views Mavis Tolbert keagan AYOUB-C Work Phone: Start: 11-01-2022 STREP A MOLECULAR (POC) Johanne Santos KITCHEN CHEF. BODY AND FRAME TECHNICIAN Work Phone: Start: 10-21-2022 Radex hand minimum 3 views Aury Trejo-Joseph Work Phone: Start: 10-20-2022 Level iv surg pathology gross&microscopic exam Eriberto Disla MD Work Phone: Start: 10-20-2022 Esophagogastroduodenoscopy transoral diagnostic Crystal Pastrana PA-C Work Phone: Start: 05-12-2022 PFIZER-BIONTECH COVID-19 BIVALENT BOOSTER VACCINE, AGE 12+ YR Mavis Ko JIMENEZC Work Phone: Start: 02-17-2022 Radiologic exam chest 2 views Lola barry KITCHEN CHEF.BODY AND FRAME TECHNICIAN Work Phone: Start: 02-13-2022 STREP A MOLECULAR [...] [facility] Start: 10-06-[address] [facility] Start: 11-16-2027 Lipid 1996 panel - Serum or Plasma Lipid Screening [facility] Start: 11-16-2027 Lipid panel Lipid Screening [facility] Start: 11-16-2027 LIPID SCREEN LIPID SCREEN [facility] Start: 10-06-[address] [facility] Start: 10-06-2027 COLORECTAL CANCER SCREENING COLORECTAL CANCER SCREENING [facility] Start: 10-06-2027 Screening for malign ant neoplasm of colon [facility] Start: 11-13-2026 LIPID SCREEN LIPID SCREEN [facility] Start: 10-19-2026 Diabetes Screening Diabetes Screenin g [facility] Start: 11-15-2025 DIABETES SCREEN DIABETES SCREEN [facility] Start: 11-15-2025 Diabetes Screening Diabetes Screenin g [facility] Start: 03-14-2025 Annual PCP Team Oracle Endeca Consultant rocco Disease Visit Annual PCP Team Chronic Disease Visit [facility] Start: 03-14-2025 BP Controlled (<130/80) BP Controlle d (<130/80) [facility] Start: 02-21-2025 Annual PCP Team [employer] Endeca Consultant rocco Disease Visit Annual PCP Team Chronic Disease Visit [facility] Start: 01-12-2025 LIPID SCREEN LIPID SCREEN [facility] Start: 01-09-2025 End: 01-09-2025 Patient encounter procedure 01/09/2025 11:30 AM EDT Office Visit OB/Gynecology [address] [place], [place] [address] Tiffani Gant APRN.BODY AND FRAME TECHNICIAN [address] [place] [address] Annual OB/Gynecology Comment on above: Annual Start: 01-09-2025 End: 01-09-2025 Patient encounter procedure Mammogram Comment on above: Encounter for gyneco logical examination (general) (routine) without abnormal findings [Z01.419]; Encounter for screening mammogram for breast cancer [Z12.31] Annual Start: 01-06-2025 Screening for malign ant neoplasm of breast Mammogram Screening [facility] Start: 12-02-2024 Annual PCP Team [employer] Endeca Consultant rocco Disease Visit Annual PCP Team Chronic Disease Visit [facility] Start: 11-13-2024 DIABETES SCREEN DIABETES SCREEN [facility] Start: 10-26-2024 End: 10-26-2024 Patient encounter procedure 10/26/2024 10:40 AM EDT Office Visit Family Medicine [place] [address] [place], [place] [id number] Eugenio Peralta MD [address] [place], [place] [id number] physical Family Medicine [place] Comment on above: physical Start: 10-25-2024 Annual PCP Team Oracle Endeca Consultant rocco Disease Visit Annual PCP Team Chronic Disease Visit [facility] Start: 10-25-2024 Anxiety Screening Anxiety Screening [facility] Start: 10-25-2024 Covid-19 Vaccine () Covid-19 Vaccine () [facility] Comment on above: Postponed from 05/13 (Declined at this time) Start: 10-25-2024 Depression Screening Depression Scre ening [facility] Start: 10-25-2024 RSV Vaccine (1 - 1-d ose 60+ series) RSV Vaccine (1 - 1-dose 60+ series) [facility] Comment on above: Postponed from 10/11 (Declined at this time) Start: 10-19-2024 Creatinine measurement Serum Creatin ine [facility] Start: 10-08-2024 [facility] Start: 10-08-2024 Hospital admission, emergency, from emergency room, medical nature [facility] Start: 10-08-2024 [facility] Start: 06-29-2024 Covid-19 Vaccine ( season) Covid-19 Vaccine () [facility] Start: 04-21-2024 Annual PCP Team Oracle Endeca Consultant rocco Disease Visit Annual PCP Team Chronic Disease Visit [facility] Start: 03-30-2024 Advance Directive Discussion Advance Directive Discussion [facility] Start: 03-21-2024 End: 03-21-2024 Patient encounter procedure 03/21/2024 10:00 AM EST Office Visit Family Medicine [place] [address] [facility] [place] [place] [address] Lola Farris APRN.BODY AND FRAME TECHNICIAN [address] [facility] [place] [address] 1 month BP check [facility] Comment on above: 1 month BP check Start: 01-07-2024 End: 01-07-2024 Patient encounter procedure Mammogram Comment on above: Encounter for screen ing mammogram for malignant neoplasm of breast [Z12.31] annual Start: 01-06-2024 Mammography Mammogram Screening [facility] Start: 01-06-2024 Screening for malign ant neoplasm of breast Mammogram Screening [facility] Start: 12-30-2023 End: 12-30-2023 Patient encounter procedure 12/30/2023 1:40 PM EDT Immunization Family Medicine [place] [address] [facility] [place] [address] [place], Immunization Clinic Nurse [address] [place], [place] [phone] Want Covid & flu vaccinations [facility] Comment on above: Want Covid & flu vac cinations Start: 12-29-2023 Covid-19 Vaccine ( season) Covid-19 Vaccine ( season) [facility] Comment on above: Postponed from 11/28 (Currently Scheduled) Start: 12-29-2023 Influenza vaccination Influenza Vacc ine (#1) [facility] Comment on above: Postponed from 11/28 (Currently Scheduled) Start: 12-24-2023 End: 12-24-2023 Patient encounter procedure 12/24/2023 2:00 PM EDT Office Visit [facility] [address] [facility] [place] [id number] Natalia Monge APRN.BODY AND FRAME TECHNICIAN [address] [facility] [place] [phone] BP check, and check Pts BP cuff. See TE 12/22/23. Family Medicine [place] Comment on above: BP check, and check Pts BP cuff. See TE 12/22/23. Start: 11-29-2023 Covid-19 Vaccine () Covid-19 Vaccine () [facility] Start: 11-29-2023 Covid-19 Vaccine () Covid-19 Vaccine () [facility] Start: 11-29-2023 Influenza vaccination Influenza Vacc ine (#1) [facility] Start: 11-16-2023 Creatinine measurement Serum Creatin ine [facility] Start: 11-16-2023 SERUM CREATININE SERUM CREATININE Cl [facility] Start: 11-15-2023 ANNUAL PCP TEAM SAP PI DEVELOPER ROCCO DISEASE VISIT ANNUAL PCP TEAM CHRONIC DISEASE VISIT [facility] Start: 11-15-2023 COVID-19 VACCINE (6 - Pfizer series) COVID-19 VACCINE (6 - Pfizer series) [facility] Comment on above: Postponed from 09/09 (Declined at this time) Start: 10-26-2023 End: 10-26-2023 Patient encounter procedure 10/26/2023 11:00 AM EDT Office Visit Family [facility] [place] [address] [place] [address] Eugenio Peralta MD [address] [place] [address] well visit Family [facility] [place] Comment on above: well visit Start: 07-27-2023 DIABETES SCREEN DIABETES SCREEN [facility] Start: 05-13-2023 Covid-19 Vaccine () Covid-19 Vaccine () [facility] Start: 03-30-2023 Advance Directive Discussion Advance Directive Discussion [facility] Start: 03-30-2023 Behavioral Health Screening Behavioral Health Screening [facility] Start: 03-30-2023 Depression Assessment Depression Ass essment [facility] Start: 02-17-2023 COVID-19 VACCINE (5 - Booster for Pfizer series) COVID-19 VACCINE (5 - Booster for Pfizer series) [facility] Comment on above: Postponed from 12/27 (Declined at this time) Start: 01-02-[address] [facility] Start: 11-28-2022 Covid-19 Vaccine (2022- season) Covid-19 Vaccine ( season) [facility] Start: 11-28-2022 Influenza vaccination [facility] Start: 11-14-2022 End: 01-14-2023 25-hydroxyvitamin D3 [Mass/volume] in Serum or Plasma VITAMIN D 25 HYDROXY Lab Routine Low vitamin D level Expected: 11/14/2022, Expires: 01/14/2023 [facility] Work Phone: Comment on above: Expected: 11/14/2022 , Expires: 01/14/2023 Start: 11-14-2022 End: 01-14-2023 CBC W Auto Differential panel - Blood CBC + DIFF Lab Routine Essential hypertension Expected: 11/14/2022, Expires: 01/14/2023 [facility] Work Phone: Comment on above: Expected: 11/14/2022 , Expires: 01/14/2023 Start: 11-14-2022 End: 01-14-2023 Comprehensive metabolic 2000 panel - Serum or Plasma COMP METABOLIC PANEL Lab Routine Essential hypertension Expected: 11/14/2022, Expires: 01/14/2023 [facility] Work Phone: Comment on above: Expected: 11/14/2022 , Expires: 01/14/2023 Start: 11-14-2022 End: 01-14-2023 Lipid 1996 panel - Serum or Plasma LIPID PANEL BASIC Lab Routine Low HDL (under 40) Expected: 11/14/2022, Expires: 01/14/2023 [facility] Work Phone: Comment on above: Expected: 11/14/2022 , Expires: 01/14/2023 Start: 11-14-2022 End: 01-14-2023 Magnesium [Mass/volume] in Serum or Plasma MAGNESIUM BLD Lab Routine Current use of proton pump inhibitor Expected: 11/14/2022, Expires: 01/14/2023 [facility] Work Phone: Comment on above: Expected: 11/14/2022 , Expires: 01/14/2023 Start: 11-13-2022 HEMOGLOBIN/HEMATOCRIT HEMOGLOBIN/HEM ATOCRIT [facility] Start: 11-13-2022 SERUM CREATININE SERUM CREATININE [facility] Start: 11-12-2022 Adult depression screening assessment DEPRESSION SCREENING [facility] Start: 11-12-2022 ANNUAL PCP TEAM SAP PI DEVELOPER ROCCO DISEASE VISIT ANNUAL PCP TEAM CHRONIC DISEASE VISIT [facility] Start: 11-01-2022 ANNUAL PCP TEAM SAP PI DEVELOPER ROCCO DISEASE VISIT ANNUAL PCP TEAM CHRONIC DISEASE VISIT [facility] Start: 09-09-2022 COVID-19 VACCINE (6 - Pfizer series) COVID-19 VACCINE (6 - Pfizer series) [facility] Start: 03-30-2022 ADVANCE DIRECTIVE DISCUSSION ADVANCE DIRECTIVE DISCUSSION [facility] Start: 03-30-2022 [facility] Start: 12-27-2021 COVID-19 VACCINE (5 - Booster for Pfizer series) COVID-19 VACCINE (5 - Booster for Pfizer series) [facility] Start: 11-28-2021 Influenza vaccination INFLUENZA (#1) [facility] Start: 11-16-[address] [facility] Start: 11-12-2021 PNEUMOCOCCAL: 65+ (2 - PCV) PNEUMOCOCCAL: 65+ (2 - PCV) [facility] Start: 07-24-2021 Adult depression screening assessment DEPRESSION SCREENING [facility] Start: 03-30-2021 ADVANCE DIRECTIVE DISCUSSION ADVANCE DIRECTIVE DISCUSSION [facility] Start: 03-30-2021 DEPRESSION ASSESSMENT DEPRESSION ASS ESSMENT [facility] Start: 01-12-2021 HEMOGLOBIN/HEMATOCRIT HEMOGLOBIN/HEM ATOCRIT [facility] Start: 01-12-2021 SERUM CREATININE SERUM CREATININE [facility] Start: 10-08-2016 FECAL OCCULT BLOOD FECAL OCCULT BLOO D [facility] Start: 10-08-2016 Screening for malign ant neoplasm of colon Fecal Occult Blood [facility] Start: 2015 RSV Vaccine (1 - 1-d ose 60+ series) RSV Vaccine (1 - 1-dose 60+ series) [facility] Start: 10-11-2000 COLOGUARD (FIT-DNA) COLOGUARD (FIT-D NA) [facility] Start: 10-11-[address] COLONOGRAPHY [facility] Start: 10-11-2000 Screening for malign ant neoplasm of colon [facility] Start: 10-11-2000 SIGMOIDOSCOPY SIGMOIDOSCOPY [facility]ung [facility] Start: 10-11-1973 BP Controlled (<130/80) BP Controlle d (<130/80) [facility] ALERE STREP A TEST (AG) ALERE ST REP A TEST (AG) Lab Routine Sore throat Ordered: 02/13/2022 [facility] Work Phone: Comment on above: Ordered: 02/13/2022 Bicarbonate measurement [facility] Carbon dioxide [Part ial pressure] in Blood [facility] Carbon dioxide galo nt measurement [facility] End: 09-24-2024 DBT Breast - bilateral screening ELLIOT SCREENING [facility] Radiology Routine Encounter for screening mammogram for malignant neoplasm of breast 1 Occurrences starting 08/27/2023 until 09/24/2024 [facility] Work Phone: Comment on above: 1 Occurrences starti ng 08/27/2023 until 09/24/2024 End: 02-05-2025 DBT Breast - bilateral screening ELLIOT SCREENING [facility] Radiology Routine Encounter for gynecological examination (general) (routine) without abnormal findings Encounter for screening mammogram for breast cancer 1 Occurrences starting 01/07/2024 until 02/05/2025 [facility] Work Phone: Comment on above: 1 Occurrences starti ng 01/07/2024 until 02/05/2025 [employer], blood [facility] End: 12-14-2023 DXA-AXIAL SKELETON DXA-AXIAL SKELETON Radiology Routine Asymptomatic postmenopausal state 1 Occurrences starting 11/14/2022 until 12/14/2023 [facility] Work Phone: Comment on above: 1 Occurrences starti ng 11/14/2022 until 12/14/2023 Influenza virus A an d B RNA and SARS-CoV-2 (COVID-19) N gene panel - Respiratory specimen by GUSTAVO with probe detection COVID WITH FLUA+B, ROUTINE Microbiology Routine URI, acute Ordered: 02/13/2022 [facility] Work Phone: Comment on above: Ordered: 02/13/2022 End: 06-25-2023 ELLIOT SCREENING W [facility] ELLIOT SCREENING [facility] Radiology Routine Encounter for screening mammogram for malignant neoplasm of breast Dense breast tissue 1 Occurrences starting 05/26/2022 until 06/25/2023 [facility] Work Phone: Comment on above: 1 Occurrences starti ng 05/26/2022 until 06/25/2023 Oxygen [Partial pressure] in Blood [facility] Oxygen saturation measurement [facility] PAP TEST PAP TEST Lab [place] Screening for malignant neoplasm of cervix Encounter for screening for human papillomavirus (HPV) 01/07/2024 11:26 AM EDT [facility] Unspecified specimen [facility] End: 12-14-2023 Radex spine lumbosacral 2/3 views XR LUMBAR GENERAL 3V AP/LAT/L5-S1 Radiology Routine Arthritis of right sacroiliac joint Lumbosacral pain 1 Occurrences starting 11/14/2022 until 12/14/2023 [facility] Work Phone: Comment on above: 1 Occurrences starti ng 11/14/2022 until 12/14/2023 Radex spine lumbosac ral 2/3 views XR LUMBAR GENERAL 3V AP/LAT/L5-S1 Radiology Routine Arthritis of right sacroiliac joint Lumbosacral pain 11/14/2022 11:42 AM EDT [facility] Work Phone: End: 01-09-2023 Screening mammography bi 2-view breast inc cad ELLIOT SCREENING Radiology Routine Encounter for screening mammogram for malignant neoplasm of breast 1 Occurrences starting 12/10/2021 until 01/09/2023 [facility] Work Phone: Comment on above: 1 Occurrences starti ng 12/10/2021 until 01/09/2023 End: 02-01-2023 Screening mammography bi 2-view breast inc cad ELLIOT SCREENING Radiology Routine Postmenopausal atrophic vaginitis 1 Occurrences starting 01/02/2022 until 02/01/2023 [facility] Work Phone: Comment on above: 1 Occurrences starti ng 01/02/2022 until 02/01/2023 End: 01-02-2022 Screening mammography bi 2-view breast inc cad [facility] Work Phone: Comment on above: 1 Occurrences starti ng 01/02/2022 until 01/02/2022 Troponin T.cardiac [Mass/volume] in Serum or Plasma by High sensitivity method [facility] Troponin T.cardiac [Mass/volume] in Serum or Plasma by High sensitivity method [facility] End: 12-14-2023 Us abdominal aorta real time screen study aaa US SCREENING FOR AAA Radiology Routine Pulsatile abdomen 1 Occurrences starting 11/14/2022 until 12/14/2023 [facility] Work Phone: Comment on above: 1 Occurrences starti ng 11/14/2022 until 12/14/2023 End: 02-18-2024 US VENOUS INCOMPETENCY [facility] US VENOUS INCOMPETENCY [facility] Vascular Lab Routine Symptomatic varicose veins of both lower extremities 1 Occurrences starting 02/17/2023 until 02/18/2024 [facility] Work Phone: Comment on above: 1 Occurrences starti ng 02/17/2023 until 02/18/2024 End: 12-26-2023 XR FOOT GENERAL 3V AP/LAT/OBL BILATERAL XR FOOT GENERAL 3V AP/LAT/OBL BILATERAL Radiology Routine Pain 1 Occurrences starting 11/26/2022 until 12/26/2023 [facility] Work Phone: Comment on above: 1 Occurrences starti ng 11/26/2022 until 12/26/2023 End: 03-23-2025 XR Knee - right 4 Views XR KNEE GENERAL 4V AP BOTH/PA BOTH/LAT/MERC RIGHT Radiology Routine Acute pain of right knee 1 Occurrences starting 02/22/2024 until 03/23/2025 [facility] Work Phone: Comment on above: 1 Occurrences starti ng 02/22/2024 until 03/23/2025 XR Knee - right 4 Views XR KNEE GENERAL 4V AP BOTH/PA BOTH/LAT/MERC RIGHT Radiology Routine Acute pain of right knee 02/22/2024 12:47 PM EST [facility] Immunizations Immunization Date Immunization Notes Care Provider Fa april 12-30-2023 COVID-19 vaccine, ag e 12+ yr (PFIZER-BIONTECH COMIRNATY) Immunization [place] Work Phone: [facility] 12-30-2023 influenza, high dose seasonal, preservative-free Immunization [place] Work Phone: [facility] 11-25-2023 respiratory syncytia l virus (RSV) vaccine, adjuvanted (AREXVY) Eugenio Peralta MD Work Phone: [facility] 01-10-2023 COVID-19 vaccine, ag e 12+ yr, season (PFIZER-BIONTECH) Immunization [place] Work Phone: [facility] Work Phone: 01-10-2023 influenza (HD-IIV4) vaccine, age 65+ yr, high dose, quadrivalent, PF (FLUZONE HIGH-DOSE) Immunization [place] Work Phone: [facility] 01-10-2023 influenza virus vaccine, unspecified formulation Eugenio Peralta MD Work Phone: [facility] 05-12-2022 COVID-19 booster vaccine, age 12+ yr, bivalent (PFIZER-BIONTECH) Mi Nurse Work Phone: [facility] Work Phone: 12-28-2021 influenza, high-dose , quadrivalent vaccine (FLUZONE HIGH DOSE QUADRIVALENT) Tiffani Gant APRN.BODY AND FRAME TECHNICIAN Work Phone: [facility] 12-28-2021 influenza virus vaccine, unspecified formulation Reji Morgan PT Work Phone: [facility] 11-15-2021 pneumococcal (PCV20) vaccine, 20 valent (PREVNAR 20) Nm Nurse Work Phone: [facility] Work Phone: 11-01-2021 COVID-19 vaccine, ag e 12+ yr (PFIZER-BIONTECH - HOANG TOP) Eugenio Peralta MD Work Phone: [facility] 03-05-2021 COVID-19 vaccine, ag e 12+ yr (PFIZER-BIONTECH - PURPLE TOP) Eugenio Peralta MD Work Phone: [facility] 12-29-2020 influenza, high-dose , quadrivalent vaccine (FLUZONE HIGH DOSE QUADRIVALENT) Eugenio Peralta MD Work Phone: [facility] Work Phone: 11-12-2020 pneumococcal polysaccharide vaccine, 23 valent Eugenio Peralta MD Work Phone: [facility] Work Phone: 05-16-2020 COVID-19 vaccine, ag e 12+ yr (PFIZER-BIONTECH - PURPLE TOP) Eugenio Peralta MD Work Phone: [facility] 04-20-2020 COVID-19 vaccine, ag e 12+ yr (PFIZER-BIONTECH - PURPLE TOP) Eugenio Peralta MD Work Phone: [facility] 12-30-2019 influenza, injectabl e, quadrivalent, contains preservative Eugenio Peralta MD Work Phone: [facility] Work Phone: 01-22-2019 influenza, injectabl e, quadrivalent, contains preservative Eugenio Peralta MD Work Phone: [facility] 12-10-2018 zoster vaccine recombinant Eugenio Peralta MD Work Phone: [facility] Work Phone: 10-06-2018 tetanus toxoid, redu priya diphtheria toxoid, and acellular pertussis vaccine, adsorbed Eugenio Peralta MD Work Phone: [facility] 10-06-2018 zoster vaccine recombinant Eugenio Peralta MD Work Phone: [facility] 01-09-2018 influenza, injectabl e, quadrivalent, contains preservative Eugenio Peralta MD Work Phone: [facility] 01-03-2017 influenza, injectabl e, quadrivalent, contains preservative Eugenio Peralta MD Work Phone: [facility] 01-04-2016 influenza, injectabl e, quadrivalent, contains preservative Eugenio Peralta MD Work Phone: [facility] Work Phone: 12-30-2014 influenza, injectabl e, quadrivalent, contains preservative Eugenio Peralta MD Work Phone: [facility] Work Phone: 02-15-2014 influenza, seasonal, injectable Eugenio Peralta MD Work Phone: [facility] 07-27-2013 zoster vaccine, live Eugenio Peralta MD Work Phone: [facility] Work Phone: 01-29-2012 influenza virus vaccine, unspecified formulation Eugenio Peralta MD Work Phone: [facility] 03-27-2009 novel [id number], preservative-free, injectable Eugenio Peralta MD Work Phone: [facility] 10-09-2008 tetanus toxoid, redu priya diphtheria toxoid, and acellular pertussis vaccine, adsorbed Eugenio Peralta MD Work Phone: [facility] Work Phone: 01-24-2006 influenza virus vaccine, unspecified formulation Eugenio Peralta MD Work Phone: [facility] Payers Date Payer Category Payer Self-pay 2020 Medicare MMO MEDICARE MMO MEDADVANTAGE O [id number] 2020-Present [phone] [address] [place] [address] [facility] [id number] 2020 Medicare MMO MEDICARE MMO MEDADVANTAGE HMO [id number] 2020-Present [phone] [address] [place] [address] [facility] [id number] 2020 Medicare (Managed Care) MMO MEDADVANTAGE HMO [id number] 2020 Unknown [id number] Unknown [id number] Unknown [id number] Unknown [id number] Unknown [id number] Unknown [id number] Unknown [id number] Social History Date Type Detail Facility Start: 03-06-2011 End: 10-08-2024 Tobacco smoking status NHIS Never smoked tobacco [facility] Work Phone: Start: 11-16-2020 End: 03-14-2024 Alcohol intake Current non-drinker of alcohol (finding) [facility] Start: 07-24-2020 End: 11-12-2021 History SDOH Alcohol Frequency 1 [facility] Start: 07-24-2020 End: 11-12-2021 History SDOH Social Connections Phone [address] [facility] Start: 07-24-2020 End: 11-12-2021 History SDOH Social Connections Mormon [facility] Start: 07-24-2020 End: 11-12-2021 History SDOH Social Connections Living 3 [facility] Start: 07-24-2020 End: 11-12-2021 History SDOH Financial 5 [facility] Start: 1955 Sex Assigned At Female [facility] Start: 10-18-2021 End: 02-17-2022 Exposure to SARS-CoV-2 (event) Not sure [facility] Start: 03-06-2011 End: 01-02-2022 Tobacco use and exposure Smokeless tobacco non-user [facility] Start: 11-12-2021 History SDOH Alcohol Std Drinks 0 [facility] Start: 11-12-2021 History SDOH Social Connections Phone 4 [facility] Start: 11-12-2021 End: 10-28-2022 History of [address] function [facility] Start: 11-12-2021 End: 10-28-2022 Social connection and isolation panel [facility] How often do you att end pentecostalism or mosque services? Patient refused [facility] Are you now , , , , never or living with a partner? [facility] How often to you hav e a drink containing alcohol? Never [facility] Do you feel stress - tense, restless, nervous, or anxious, or unable to sleep at night because your mind is troubled all the time - these days [OSQ] Only a little [facility] (I/We) worried wheth er (my/our) food would run out before (I/we) got money to buy more. Never true [facility] In the past 12 month s, was there a time when you were not able to pay the mortgage or rent on time? No [facility] Start: 12-28-2020 Gender identity Identifies as female gender (finding) [facility] Start: 12-28-2020 Sexual orientation Heterosexual (kevin florez) [facility] Do you feel stress - tense, restless, nervous, or anxious, or unable to sleep at night because your mind is troubled all the time - these days [OSQ] Not at all [facility] Start: 05-24-2019 Alcohol Alcohol [facility] Start: 05-24-2019 Lives Lives [facility] Functional Status Date Assessment Result Facility 10-28-2014 Are you deaf, or do you have serious difficulty hearing No 10/28/2014 8:00 AM Shanta Goddard MA No [facility] 10-28-2014 Are you blind, or do you have serious difficulty seeing, even when wearing glasses No 10/28/2014 8:00 AM Shanta Goddard MA No [facility] 10-28-2014 Do you have serious difficulty walking or climbing stairs No 10/28/2014 8:00 AM Shanta Goddard MA No [facility] 10-28-2014 Do you have difficul ty dressing or bathing No 10/28/2014 8:00 AM Shanta Goddard MA No [facility] 10-28-2014 Because of a physica l, mental, or emotional condition, do you have difficulty doing errands alone such as visiting a physician's office or shopping No 10/28/2014 8:00 AM Shanta Goddard MA No [facility] Mental Status Date Assessment Result Facility 10-08-2024 Cognitive function Voice/Name [facility] Work Phone: 10-28-2014 Because of a physica l, mental, or emotional condition, do you have serious difficulty concentrating, remembering, or making decisions No 10/28/2014 8:00 AM Shanta Goddard MA No [facility] Clinical Notes 07-25-2013 to 10-08-2024 Telephone Encounter - Jan Arrieta LPN - 08/29/2024 3:51 PM EDTTelephone Encounter - Jan Arrieta LPN - 08/29/2024 3:51 PM Eugenio Romero MD - 03/14/2024 11:13 AM ESTPatient Instructions Note Date & Type Note Facility 10-08-2024 Discharge summary [facility] 08-29-2024 Telephone encounter Note Prescription Refill Information [...] Arrieta LPN August 29, 2024 3:[address] [facility] 08-29-2024 Miscellaneous Notes Prescription Refill Information [...] 2024 3:51 PM documented in this encounter [facility] 03-14-2024 Note HNO ID: [id number] Author: EUGENIO PERALTA MD Service: ? Author [...] skin discoloration, cl (more content not included)... [facility] 03-14-2024 History of Present illness Narrative [...] cancerous cells in uterus per Sharon Ellis, BODY AND FRAME TECHNICIAN other (hysterectomy) Sister half-sister; unknown etiology Diabetes [...] Good capillary refill. documented in this encounter [facility] 02-22-2024 History of Present illness Narrative [...] PATIENT PRESENTS WITH AN IMPLANTABLE OR ATTACHED SEA CAPTAIN: No RADIOLOGY DEPARTMENT: General X-ray: Exam(s) Completed: Lower Extremity X-Ray(s): Knee, AP / Lat / Tunne / Merchant Right PERIPHERAL IV DATA: Not applicable SIGNED BY: RT April(R) February 22, 2024 12:30 PM documented in this encounter [facility] 02-22-2024 Note HNO ID: [id number] Author: IVANA WELLINGTON RT(R) Service: ? Author Type: Sales And Marketing Vice President Type: Progress Notes Filed: 02/22/2024 12:47 Note [...] PATIENT PRESENTS WITH AN IMPLANTABLE OR ATTACHED SEA CAPTAIN: No RADIOLOGY DEPARTMENT: General X-ray: Exam(s) Completed: Lower Extremity X-Ray(s): Knee, AP / Lat / Tunne / Merchant Right PERIPHERAL IV DATA: Not applicable SIGNED BY: RT April(R) February 22, 2024 12:30 PM [facility] 02-22-2024 Instructions Lola Farris APRN.JAIRON - 02/22/2024 12:21 PM EST Get the knee xray. Start the lisinopril. Recheck in a month. documented in this encounter [facility] 02-22-2024 Note HNO ID: [id number] Author: OLLA FARRIS APRN.JAIRON Service: ? Author Type: Nurse [...] understanding. Patient's que (more content not included)... [facility] 02-22-2024 History of Present illness Narrative [...] cancerous cells in uterus per Sharon Ellis, BODY AND FRAME TECHNICIAN other (hysterectomy) Sister half-sister; unknown etiology Diabetes [...] Lola Farris APRN.CNP documented in this encounter [facility] 01-11-2024 Note Addended by: TIFFANI GANT on: 01/11/2024 08:01 AM Modules accepted: Orders [facility] 01-11-2024 Miscellaneous Notes Addended by: TIFFANI GANT on: 01/11/2024 08:01 AM Modules accepted: Orders documented in this encounter [facility] 01-07-2024 History of Present illness Narrative [...] PATIENT PRESENTS WITH AN IMPLANTABLE OR ATTACHED SEA CAPTAIN: No RADIOLOGY DEPARTMENT: Mammography PERIPHERAL IV DATA: Not applicable SIGNED BY: Brendan Zapata January 07, 2024 10:12 AM documented in this encounter [facility] 01-07-2024 Note HNO ID: [id number] Author: HAFSA ALVARADO Mammo Tech Service: ? 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 Lucas is a 68 year old who [...] Comment: 1 section No surgery for ectopic Fibre Technologist History LMP: 09/17/2008, Postmenopausal Age at Menarche: Age at First : Age at Menopause: Fibre Technologist History Comments: Sexual Activity: Yes; Male; bilateral [...] discussed with the Patient or Patient's Authorized Fish Hatchery Supervisor. As applicable, any other physician, advance practice provider, medical student, or other health professional student that will be observing or involved in the sensitive examination for educational or training purposes was discussed with the Patient or Authorized Fish Hatchery Supervisor. The Patient or Authorized Fish Hatchery Supervisor has agreed to proceed with the sensitive [...] external genitalia normal, normal Bartholin's glands, urethra, [place]. Onge's glands, no vulvar lesions, no cervical lesions, [...] Tiffani Gant APRN.JAIRON documented in this encounter [facility] 01-07-2024 Note HNO ID: [id number] Author: TIFFANI GANT APRN.CNP Service: ? 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 Lucas is a 68 year old who [...] Comment: 1 section No surgery for ectopic Fibre Technologist History LMP: 09/17/2008, Postmenopausal Age at Menarche: Age at First : Age at Menopause: Fibre Technologist History Comments: Sexual Activity: Yes; Male; bilateral [...] discussed with the Patient or Patient's Authorized Fish Hatchery Supervisor. As applicable, any other physician, advance practice provider, medical student, or other health professional student that will be observing or involved in the sensitive examination for educational or training purposes was discussed with the Patient or Authorized Fish Hatchery Supervisor. The Patient or Authorized Fish Hatchery Supervisor has agreed to proceed with the sensitive [...] external genitalia normal, normal Bartholin's glands, urethra, [place]. Onge's glands, no vulvar lesions, no cervical lesions, [...] up one year (more content not included)... [facility] 12-24-2023 Instructions Natalia Monge APRN.CNP - 12/24/2023 2:23 PM EDT 1) No change in medications 2) See Dr. Peralta in September as scheduled documented in this encounter [facility] 12-24-2023 Note HNO ID: [id number] Author: NATALIA MONGE APRN.CNP Service: ? Author [...] as needed for worsening/no improvement. Natalia Monge APRN.[facility] 12-24-2023 History of Present illness Narrative [...] as needed for worsening/no improvement. Natalia Monge APRN.BODY AND FRAME TECHNICIAN documented in this encounter [facility] 12-24-2023 Nurse Note 12/24/2023: Home BP Cuff Validated. Home BP: 125/83 P69 Office BP: 130/82 P:68 Celia Rider MA December 24, 2023 2:[address] [facility] 12-24-2023 Nurse Note 12/24/2023: Home BP Cuff Validated. Home BP: 125/83 P69 Office BP: 130/82 P:68 Celia Rider MA December 24, 2023 2:11 PM documented in this encounter [facility] 12-22-2023 Telephone encounter Note Pt called [...] appointment, along with cuff to be checked. [facility] 12-22-2023 Miscellaneous Notes Pt called in [...] to be checked. documented in this encounter [facility] 12-14-2023 Telephone encounter Note Prescription Refill [...] Arrieta LPN December 14, 2023 6:[address] [facility] 12-14-2023 Miscellaneous Notes Prescription Refill Information [...] 2023 6:10 PM documented in this encounter [facility] 12-03-2023 Note HNO ID: [id number] Author: MAYRA LAN PA-C Service: ? Author Type: Physician Implementation Coordinator Type: Progress Notes Filed: 12/03/2023 10:02 [...] cancerous cells in uterus per Sharon Ellis, BODY AND FRAME TECHNICIAN other (hysterectomy) Sister half-sister; unknown etiology Diabetes [...] patient to contact office. Mayra Lan PA-C [facility] 12-03-2023 History of Present illness Narrative [...] Mayra Lan PA-C documented in this encounter [facility] 11-24-2023 Note HNO ID: [id number] Author: REJI MORGAN PT Service: ? Author Type: Physical Therapist Type: Progress Notes Filed: 11/24/2023 11:22 Note Text: 11/24/2023 [facility] PHYSICAL THERAPY DISCONTINUANCE [...] scheduled additional follow-up appointments. Reji Morgan, PT [facility] 10-26-2023 Note HNO ID: [id number] Author: EUGENIO PERALTA MD Service: ? Author [...] in the medical record. Dr Kovacs, sees PUBLISHING MANAGER, [facility]. Medical/Family history review Reviewed and updated allergies. Opioid use review Opioid Medications (last 90 days) No data to display Anxiety/Depression screening PHQ-9 Score: 0. JNOY-7 Score: 1 (Minimal Anxiety) Recommendation: no further intervention at this time Cognitive screening 08/01 Cognitive screening reviewed and No further action [...] No history of dysuria, frequency or incontinence PUBLISHING MANAGER: Negative for abnormal vaginal bleeding, abnormal vaginal [...] regular exercise - Personalized prevention plan provided [facility] 10-26-2023 History of Present illness Narrative [...] in the medical record. Dr Kovacs, [facility]/Family history review Reviewed and updated [...] No history of dysuria, frequency or incontinence PUBLISHING MANAGER: Negative for abnormal vaginal bleeding, abnormal vaginal [...] prevention plan provided documented in this encounter [facility] 10-26-2023 Evaluation note Diagnosis Mixed hyperlipidemia- Primary Chronic kidney disease, stage 3a (HCC) Screening for depression Encounter for screening examination for other mental health and behavioral disorders documented in this encounter [facility]05-30-2024 Telephone encounter Note* Telephone Encounter - Tiffani Gant APRN.CNP - 08/27/2023 7:50 AM EDT Orders filed. [facility]05-30-2024 Miscellaneous Notes* Telephone Encounter - Tiffani Gant APRN.CNP - 08/27/2023 7:50 AM EDT Orders filed. * Telephone Encounter - Rhonda Lyons RN - 08/26/2023 11:04 AM EDT Mamm with [facility]IR[facility] order pending. Please file and then route to schedulers. Thank you. documented [facility] Telephone encounter Note * Telephone Encounter - Rhonda Lyons RN - 08/26/2023 11:04 AM EDT Mamm with [facility]IRA order pending. Please file and then route to schedulers. Thank you. [facility]05-04-2024 NoteHNO ID: [id number] Author: ENMANUEL WONG MD Service: ? Author [...] pain, or late onset fever. Enmanuel Wong, [facility]05-04-2024 History of Present illness Narrative* Enmanuel Wong [...] fever. Enmanuel Wong MD [facility]24 Miscellaneous Notes* Addendum Note - Eugenio Peralta MD - 06/15/2023 9:39 AM EDTAddended by: EUGENIO PERALTA on: 06/15/2023 09:39 AM Modules accepted: Orders documented in [facility] encounterSt[facility]02-27-2024 NoteHNO ID: [id number] Author: LEXY KOVACS, DO Service: ? Author Type: Physician Type: Progress Notes Filed: 05/26/2023 15:08 Note Text: [facility] [place] DEPARTMENT OF VASCULAR SURGERY OUTPATIENT VISIT DATE [...] Astudillo DATE: May 26, 2023 TIME: 2:25 [facility]02-27-2024 History of Present illness Narrative* Lexy Kovacs Yung, DO - 05/26/2023 2:25 PM EST Images from the original note were not included. [facility] [place] DEPARTMENT OF VASCULAR SURGERY OUTPATIENT VISIT DATE [...] 2023 TIME: 2:25 PM documented in this encounterSt[facility]02-05-2024 NoteHNO ID: [id number] Author: REJI MORGAN PT Service: ? Author [...] of Care: created on 05/04/23 through 06/02/23 [place] in home exercise program. Patient will decrease [...] Planned: 1 Planned Treatment Interventions: Therapeutic exercise (20736), Neuromuscular re-education (77162), Manual therapy (72841), Therapeutic activities (40500), Self-usp management (84875), Patient/Family/Caregiver Education PLAN FOR NEXT VISIT: Assess [...] interview Pain: Pain Pain Level: 2 (Average 2-3/10) Pain Location: Shoulder - Right Description: Sore [...] Shoulder ABduction: 140 Degr (more content not included)...[facility]01-23-2024 NoteHNO ID: [id number] Author: Mavis HUGHES PA-C Service: ? Author Type: Physician Implementation Coordinator Type: Progress Notes Filed: 04/25/2023 14:21 [...] arm with trying to reach overhead, negative [place]'s, negative Martinez, negative lift off. Tender trigger [...] Patient choice was di (more content not included)...[facility]01-02-2024 History of Present illness Narrative* Ivis [...] 31, 2023 12:47 PM documented in [facility] encounterSt[facility]11-[facility]-2023 Instructions* Patient Instructions* Lexy Kovacs, - 02/17/2023 9:26 AM EST Stocking Wear [...] allow to air dry. There are also local sales associate recommendations included with your stockings. Skin care- [...] palm of the gloved will help you podiatry doctor the stocking while putting it on. Be [...] are wearing the most effective size. Locations: [facility]- [phone] [employer] [phone] www.[employer]- [phone] www.[email or web address]- [phone] Located in [facility] [place]- call local store and schedule a fitting. documented in this encounterSt. [facility]11-21-2023 History of Present illness Narrative* Lexy Kovacs DO - 02/17/2023 8:43 AM EST Images from the original note were not included. [facility] [place] DEPARTMENT OF VASCULAR SURGERY OUTPATIENT VISIT DATE February 17, 2023 OUTPATIENT VISIT TYPE CONSULTATION SERVICE DATE: 02/17/2023 SERVICE TIME: 8:46 AM PRIMARY CARE PHYSICIAN: Eugenio Peralta MD REFERRING PROVIDER: Mavis Hughes [address] [facility] [address] Consult requested for an opinion regarding the [...] lesions, rash, and itching. PHYSICAL EXAM: VITALS: [facility] 09/17/2008 General: Alert, oriented, cooperative, healthy appearance [...] 2023 TIME: 8:46 AM documented in this encounterSt. [facility]11-14-2023 History of Present illness Narrative* Reji Morgan, PT - 02/10/2023 10:26 AM EST Program_ID:[id number] Access Code: [email or web address] URL: [email or web address] Date: 02-10-2023 Prepared By: Reji Morgan Program [...] Time (minutes): 45 Session Start Time : 0945 Session Stop Time : 1030 Reji Morgan PT documented in this encounterSt. 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 Equipment Owned: [...] hour of wear time per day until second time worker wear is achieved. Pt was educated on [...] Custom biomechanical foot orthotics with serial number: #[id number] were issued to patient and proof of receipt form signed by pt and therapist. All specifications for custom foot orthotics can be foundin orthotic evaluation visit note. Planned Interventions: Follow up as needed for brace fitting/issues. Billing:[facility]: Orthotics Management and Training (39433): 1:1 time: 15 minutes (1 unit: 8-22 mins) Equipment: [id number] pair of custom foot orthotics Total time: 15 minutes Harry Faustin PT documented in this encounterSt. [facility]10-31-2023 History of Present illness Narrative* Reji Morgan PT - 01/27/2023 1:16 PM EDT Episode Visit Count: 6 Therapist That Will Accept/Oversee The Plan Of Care: Harry Faustin, PT will oversee custom foot orthotics Start [...] 1402 Reji Morgan PT documented in this encounterSt. [facility]10-23-2023 History of Present illness Narrative* Harry [...] visit and 1 visit for fitting and tile picker) Planned Treatment Interventions: Orthosis / DME, Patient/Family/Caregiver Education, Self-care homemanagement (19100) PLAN FOR NEXT VISIT: Fitting and tile picker of custom foot orthotics Patient demonstrates [...] 1220 Harry Faustin PT documented in this encounterSt. [facility]10-17-2023 History of Present illness Narrative* Reji [...] of Care: created on 12/04/22 through 02/10/23 [place] in home exercise program. (MET) Patient will [...] Patient to be seen for Therapeutic exercise (95627), Neuromuscular re-education (17046), Manual therapy (04424), Therapeutic activities (03390), Self-usp management (42573), Patient/Family/Caregiver Education, Body Mechanics Training, General Conditioning [...] and tactile cuing. Manual Therapy: 1: Long [place] Distraction: Pull to patient tolerance. 2: Manual [...] 1529 Session Stop Time : 1622 Reji Morgan, PT documented in this encounterSt. [facility] Hospital10-11-2023 Miscellaneous Notes* Telephone Encounter - Vanessa [...] of both lower extremities (primary encounter diagnosis) Dr. Kovacs Thanks, Tomasz Hughes PA-C * Telephone Encounter - Donna Edwards [...] recommendations. Donna Edwards RN documented in this encounterSt. [facility] Hospital10-10-2023 Miscellaneous Notes* Letter - Mohan Bhatia - 01/06/2023 1:42 PM EDT January 07, 2023 PID: [id number] Lucas Astudillo [address] [place] [address] Dear Ms. Astudillo, We are pleased to [...] report will be kept on file at [facility] as part of your permanent medical record and are available for your continuing care. Thank you for allowing us to help in meeting your health care needs. Sincerely, Dr. Shoemaker Interpreting Radiologist [facility] (Normal over 40) documented in this encounterSt. [facility] Hospital10-09-2023 History of Present illness Narrative* Tameka [...] IV DATA: Not applicable SIGNED BY: Brendan White January 05, 2023 10:49 AM documented in this encounterSt. Francis Hospital09-21-2023 Instructions* Patient Instructions* Jt Ramachandran - [...] time on their feet, such as nurses, massage operator/waiters, andmail carriers, often experience plantar fasciitis. Athletes [...] choose the one that fits the best. [place] with your athletic shoes to find a [...] and repeat the exercise. documented in this encounterSt. Francis Hospital09-21-2023 History of Present illness Narrative* Jt [...] treat with inserts. Jt Ramachandran DPM Podiatry [facility] [address] [facility] [address] Dept: [phone] Dept * Vicki Valdovinos LPN - 12/18/2022 8:21 AM EDT AMB ROOMING INTAKE FLOWSHEET DATA Pain Pain Level: 2 Pain Location: Foot-Left Description: Other: See comment (tender) Duration Units: Years Frequency: Intermittent Intervention/Comfort measure: Reposition, Relaxation Patient presents with: Left Foot - New, Pain Right Foot - New, Pain Vicki Valdovinos LPN documented in this encounterSt. [facility] Hospital09-19-2023 History of Present illness Narrative* Sylvia Reji, PT - 12/16/2022 2:27 PM EDT Episode Visit Count: 3 Therapist That Will Accept/Oversee The Plan Of Care: Reji Morgan, PT. Start of Care Date: 12/04/22 Onset [...] and tactile cuing. Manual Therapy: 1: Long [place] Distraction: Pull to patient tolerance. 2: Manual [...] 1529 Reji Morgan PT documented in this encounterSt. [facility] Hospital09-15-2023 History of Present illness Narrative* Reji [...] 743 Reji Morgan PT documented in this encounterSt. [facility] Hospital09-07-2023 History of Present illness Narrative* Reji [...] of Care: created on 12/04/22 through 01/15/23 [place] in home exercise program. Patient will decrease [...] Planned: 4 Planned Treatment Interventions: Therapeutic exercise (73960), Neuromuscular re- education (21813), Manual therapy (97424), Therapeutic activities (67023), Self- usp management (74508), Patient/Family/Caregiver Education, Body Mechanics Training, General Conditioning [...] PT Treatment Interventions: Therapeutic Exercise, Manual Therapy, Self-Jail Management Evaluation Therapeutic Exercise: 1: *SKC: 1x30 [...] and tactile cuing. Manual Therapy: 1: Long [place] Distraction: Pull to patient tolerance. 2: Manual L/S Traction with belt and knees propped on stool, caudal pull with belt to patient tolerance. Skilled Intervention: Manual skills to improve joint mobility, ROM, and decrease pain. Utilized anatomy knowledge of the therapist, and assessment of patient's response to intervention. Self-Jail Management: 1: *Discussion and education about previous [...] Time : 941 Session Stop Time : 103 Reji Morgan PT documented in this encounterSt. [facility] Hospital09-06-2023 History of Present illness Narrative* Jose Carlos Schaffer, RT(R) - 12/03/2022 10:00 AM EDT Radiology [...] 03, 2022 10:03 AM documented in this encounterSt. [facility] Hospital09-06-2023 History of Present illness Narrative* Daisy [...] 03, 2022 8:51 AM documented in this encounterSt. [facility] Hospital08-30-2023 History of Present illness Narrative* Erendira Rivera - 11/26/2022 12:17 PM EDT Bilateral Foot documented in this encounterSt. Francis Hospital08-28-2023 History of Present illness Narrative* Zoë Linder - 11/24/2022 11:59 AM EDT POPULATION HEALTH NAVIGATION OUTREACH Action/[facility] Support: Called pt to schedule an appt in Pain Management. Lvm for pt to call [phone] for scheduling. Patient Identified by Name and : NO Outreach Outcome/Action Unable to reach patient: Left message Did you use a PCP flex slot to schedule this appointment? No Reason for Outreach Care Gap or Scheduling/Wellness visits Payer: Payor: O MEDICARE / Plan: [place] [employer] HMO / Product Type: HMO / Care Gap Reviewed:: Specialty Scheduling Reminder: Reminder note to check Health Maintenance for items below Health Maintenance items due: MAMMOGRAM due on 01/02/2023 Navigation Signature: Zoë Linder November 24, 2022 11:59 AM documented in this encounterSt. [facility] Hospital08-24-2023 Telephone encounter Note * Telephone Encounter - Giovanna Ling - 11/20/2022 3:23 PM EDT [facility] is scheduled [facility]-24[facility] Miscellaneous Notes* Telephone Encounter - Giovanna [...] Please review and advise. documented in this encounterSt. 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-23-[facility] Telephone encounter Note* Telephone Encounter - Jan Arrieta LPN - 11/19/2022 9:17 AM EDT See lumbar xray result note- provider recommended PT or pain mgmt. Jan Arrieta LPN [facility] Telephone encounter Note* Telephone Encounter - Agnes La - 11/19/2022 9:07 AM EDT Patient needs a physical therapy consult placed to schedule. Please review and advise. [facility]08[facility]18[facility] History of Present illness Narrative* Ivis [...] 14, 2022 11:24 AM documented in this encounterSt. [facility] Hospital08-[facility] Instructions* Patient Instructions* Mavis Hughes PA-C - 11/14/2022 11:05 AM EDT HEALTH MAINTENANCE: Your Body mass index is 31.15 kg/m . (Target BMI: 19-25) Regular aerobic exercise, low fat diet, and periodic exams are recommended Living Will & Medical Power of Corporate Event Planner recommended Periodic Pap smear per risk profile. [...] your usual activities immediately. documented in this encounterSt. [facility] Hospital08-18-2023 History of Present illness Narrative* Mavis Hughes PA-C - 11/14/2022 10:00 AM EDT 67 year old female with c/o well visit, BP check, last visit with me 07/26/2020enise Maya Astudillo is a 67 year old female here for a Medicare wellness visit. Health Risk Assessment In general, health is: Good Concerns with balance: Not at all Concerns with teeth or dentures: Not at all Concerns with sexual function: Not at all [place] anxious, stressed, angry, irritable, lonely, isolated, or [...] concerns: Wants recheck on ear 11/01/2022 In [facility] for sore throat and ear pain. Negative [...] Lymph 1.00 - 4.00 k/uL 1.51 1.29 [place]% % 5.6 5.7 Abs [place] <0.87 k/uL 0.28 0.24 Eosin% % 1.6 [...] 2.15 The 10-year ASCVD risk score (Kota DK, et al., 2019) is: 6% Values used [...] cancerous cells in uterus per Sharon Ellis, BODY AND FRAME TECHNICIAN other (Precancerous cervix cells) Other Niece (hysterectomy) [...] kidney infection. Females: Climacteric early 50s. Sees PUBLISHING MANAGER for lichen sclerosis. No hx of ovarian cysts, no pelvic infection, + tubal , none abnormal pap. Skin: denies unusual rashes. No history of skin cancer, bleeding/changing moles, or unusual skin lesions. Neurologic: Denies recurrent OLIVA, change in vision, hearing or smell, tremors, [...] - ICD9: 701.0, ICD10: N90.4 Follows with PUBLISHING MANAGER 8. Wellness examination - ICD9: V70.0, ICD10: [...] up for annual exam in one year Mavis Hughes PA-C documented in this encounterSt. [facility] Hospital08-05-2023 Instructions* Patient Instructions* Johanne Santos APRN.CNP [...] breath, inability to swallow. documented in this encounterSt. [facility] Hospital08-05-2023 History of Present illness Narrative* Johanne Santos APRN.CNP - 11/01/2022 10:17 AM EDT Subjective The history is provided by the patient. No frog shaker was used. JOSE Astudillo is a 67 [...] have confirmed and edited as necessary, the [facility] Review of Systems Constitutional: Negative for [...] and/or OTC throat spray as needed. - dawit joseph 3. Non-recurrent acute serous otitis media of [...] indetail warranting prompt ER evaluation. Johanne Santos APRN.JAIRON documented in this encounterSt. [facility] Hospital08-01-2023 Instructions* Patient Instructions* Crystal Pastrana PA-C - 10/28/2022 10:54 AM EDT -If dysphagia symptoms recur, would recommend esophageal manometry for further evaluation -Repeat EGD in 5 years for surveillance due to long-term PPI use The following instructions are important for you related to your office visit today with the [facility] General Surgeons. INSTRUCTIONS FOR PEPTIC [...] you should contact our office immediately @ [phone] and ask to be transferred to the General Surgery department. documented in this encounterSt. [facility] Hospital08-01-2023 History of Present illness Narrative* Crystal Pastrana PA-C - 10/28/2022 10:35 AM EDT FOLLOW UP VISIT - ENDOSCOPY NAME: Lucas Trejo [facility] NO.: [id number] DATE OF SERVICE: 10/28/2022 : 1955 REFERRING [...] which included preparing to see the patient, [id number] patient care, completing clinical documentation, obtaining and/or reviewing separately obtained history, counseling and educating the patient/family/caregiver, independently interpretin g results (not separately reported), and communicating results to the patient/family/caregiver. Crystal Pastrana PA-C documented in this encounterSt. [facility] Hospital07-25-2023 History of Present illness Narrative* Sabnia Kauffman, RT(R) - 10/21/2022 1:00 PM EDT [...] 21, 2022 12:55 PM documented in this encounterSt. [facility] Hospital07-24-2023 Nurse Note* Mary Torres RN - 10/20/2022 9:41 AM EDT Patient sitting up in bed tolerating snack and drink without problems. Mary Torres RN * Mary Torres RN - 10/20/2022 9:15 AM EDT Patient arrived to PACU, on left side, abomen soft. Drowsy.Denies pain. Mary Torres RN documented in this encounterSt. [facility] Hospital07-24-2023 History and physical note * Eriberto Disla MD - 10/20/2022 8:45 AM EDT Images from the original note were not included. HISTORY AND PHYSICAL Lucas Maya Astudillo 1955 REFERRING PHYSICIAN: Mavis Hughes PA-C [...] entered by the nurse and reviewed by dc Nursing Notes: Vikki Castillo LPN 07/22/2022 1:20 [...] patient was offered a surgery/procedure at a [facility] facility. I have counseled the patient [...] 2022 TIME: 8:05 AM documented in this encounterSt. Francis Hospital04-25-2023 History of Present illness Narrative* Crystal [...] entered by the nurse and reviewed by dc Nursing Notes: Vikki Castillo LPN 07/22/2022 1:20 [...] patient was offered a surgery/procedure at a [facility] facility. I have counseled the patient [...] mail. Crystal Pastrana PA-C documented in this encounterSt. Francis Hospital04-25-2023 Nurse Note* Vikki Castillo LPN - [...] patient's last Mammogram screening? N/A Last Colonoscopy: 2017 Vikki Castillo LPN documented in this encounterSt. Francis Hospital03-07-2023 Miscellaneous Notes* Telephone Encounter - Jan [...] advise, Alma Haq RN documented in this encounterSt. Francis Hospital02-27-2023 Miscellaneous Notes* Telephone Encounter - Henny Loya LPN - 05/26/2022 9:02 AM EST Pt wanting order for 3D mammogram. Pt will call to schedule later. No need to return call to pt. Henny Loya LPN documented in this encounterSt. Francis Hospital02-14-2023 Miscellaneous Notes* Telephone Encounter - Lin Rouse - 05/13/2022 8:40 AM EST No answer. Informed via VM. Advised to call back with any questions or concerns. Lin Rouse * Telephone Encounter - Mavis Hughes PA-C - 05/13/2022 4:39 AM EST Sure, as long as they realize I am care home age with no set plans but may [...] call and advise Pt. documented in this encounterSt. Francis Hospital02-13-2023 History of Present illness Narrative* Estrella James LPN - 05/12/2022 10:23 AM EST Patient presents for COVID vaccine. Denies any problems at this time. Tolerated injection well. Estrella James LPN documented in this encounterSt. [facility] Hospital11-21-2022 History of Present illness Narrative* Sabina [...] 17, 2022 9:50 AM documented in this encounterSt. Francis Hospital11-21-2022 Instructions* Patient Instructions* Lola Farris APRN.JAIRON - 02/17/2022 9:22 AM EST Get the [...] know if no better/worsening. documented in this encounterSt. Francis Hospital11-21-2022 History of Present illness Narrative* Lola Farris APRN.JAIRON - 02/17/2022 9:07 AM EST 66 year [...] as needed for worsening/no improvement. Lola Farris APRN.BODY AND FRAME TECHNICIAN This note was partially generated using RealSelf recognition system. Note was reviewed for accuracy. There may be minor misspellings or grammar miscues with Dragon voice recognition. documented in this encounterSt. Francis Hospital11-17-2022 History of Present illness Narrative* Alberto Le APRN.CNP - 02/13/2022 10:30 AM EST Subjective HPI HPI Lucasadele Astudillo is a 66 year old female who presents today for CC of st, congestion, cough. This started 2 days ago. Has tried otc medication for relief. Symptoms are worsened by nothing. Risk factors no known sick exposures. .Patient presents with: Cough: ST, OLIVA, congestion x2 days PAST MEDICAL HISTORY Diagnosis [...] plan Alberto Le APRN.CNP documented in this encounterSt. Francis Hospital11-17-2022 Instructions* Patient Instructions* Alberto Le APRN.CNP [...] spread by coughs, sneezes, anddirect contact, especially [id number]. A respiratory tract infection usually clears up [...] 102 F (39 C). documented in this encounterSt. Francis Hospital10-31-2022 Miscellaneous Notes* Telephone Encounter - Leisa [...] 10/2022 Last refill: 12/2020 documented in this encounterSt. Francis Hospital10-07-2022 Miscellaneous Notes* Letter - Mammography Coordinator - 01/03/2022 8:14 AM EDT January 03, 2022 PID: [id number] Lucas Astudillo [address] [place] [address] Dear Ms. Astudillo, We are pleased to [...] report will be [facility] on file at [facility] as part of your permanent medical record and are available for your continuing care. Thank you for allowing us to help in meeting your health care needs. Sincerely, Dr. Hammonds Interpreting Radiologist [facility] (Normal over 40) documented in this encounterSt. Francis Hospital10-06-2022 History of Present illness Narrative* RT [...] 02, 2022 2:54 PM documented in this encounterSt. Francis Hospital10-06-2022 History of Present illness Narrative* Tiffani Gant APRN.JAIRON - 01/02/2022 2:23 PM EDT Fitter/Welder offered: Patient declines. Lucas is a 66 [...] Comment: 1 section No surgery for ectopic Fibre Technologist History LMP: 09/17/2008, Postmenopausal Age at Menarche: Age at First : Age at Menopause: Fibre Technologist History Comments: Sexual Activity: Yes; Male; bilateral [...] external genitalia normal, normal Bartholin's glands, urethra, [place] Onge's glands, no cervical lesions, good vaginal support, [...] Lichen sclerosus -Clobetasol cream ordered Tiffani Gant APRN.JAIRON documented in this encounterSt. Francis Hospital09-20-2022 History of Present illness Narrative* Nallely [...] and up to date documented in this encounterSt. Francis Hospital09-13-2022 Miscellaneous Notes* Telephone Encounter - Rosie Galan RN - 12/10/2021 4:26 PM EDT Annual and mammogram reschedule to 01/02/22 with RM. Previous order then . Please file order. Rosie Galan RN documented in this encounterSt. Francis Hospital08-19-2022 History of Present illness Narrative* Estrella James LPN - 11/15/2021 3:00 PM EDT Patient presents for Prevnar 20 vaccine. Denies any problems at this time. Tolerated injection well. Estrella James LPN documented in this encounterSt. Francis Hospital04-28-2014 History of Past illness Narrative* Problem Noted Date Resolved Date GERD (gastroesophageal reflux disease) 4 09/14/2017 Carpal tunnel syndrome 01/12/2006 0 documented as of this encounter (statuses as of 11/01/2021) [facility] History of Past illness Narrative* Problem Noted Date Resolved Date GERD (gastroesophageal reflux disease) 4 09/14/2017 Carpal tunnel syndrome 01/12/2006 0 documented as of this encounter (statuses as of 11/15/2021) [facility] of Past illness Narrative* Problem Noted Date Resolved Date GERD (gastroesophageal reflux disease) 4 09/14/2017 Carpal tunnel syndrome 01/12/2006 0 documented as of this encounter (statuses as of 11/18/2021) [facility] illness Narrative* Problem Noted Date Resolved Date GERD (gastroesophageal reflux disease) 4 09/14/2017 Carpal tunnel syndrome 01/12/2006 0 documented as of this encounter (statuses as of 12/10/2021) [place] [id number] History of Past illness Narrative* Problem Noted Date Resolved Date GERD (gastroesophageal reflux disease) 4 09/14/2017 Carpal tunnel syndrome 01/12/2006 0 documented as of this encounter (statuses as of 12/17/2021) [place] [id number] History of Past illness Narrative* Problem Noted Date Resolved Date GERD (gastroesophageal reflux disease) 4 09/14/2017 Carpal tunnel syndrome 01/12/2006 0 documented as of this encounter (statuses as of 01/02/2022) [facility] Narrative* Problem Noted Date Resolved Date GERD (gastroesophageal reflux disease) 4 09/14/2017 Carpal tunnel syndrome 01/12/2006 0 documented as of this encounter (statuses as of 01/03/2022) [facility] Narrative* Problem Noted Date Resolved Date GERD (gastroesophageal reflux disease) 4 09/14/2017 Carpal tunnel syndrome 01/12/2006 0 documented as of this encounter (statuses as of 01/07/2022) [place] [id number] History of Past illness Narrative* Problem Noted Date Resolved Date GERD (gastroesophageal reflux disease) 4 09/14/2017 Carpal tunnel syndrome 01/12/2006 0 documented as of this encounter (statuses as of 01/27/2022) [place] [id number] History of Past illness Narrative* Problem Noted Date Resolved Date GERD (gastroesophageal reflux disease) 4 09/14/2017 Carpal tunnel syndrome 01/12/2006 0 documented as of this encounter (statuses as of 02/13/2022) [place] [id number] History of Past illness Narrative* Problem Noted Date Resolved Date GERD (gastroesophageal reflux disease) 4 09/14/2017 Carpal tunnel syndrome 01/12/2006 0 documented as of this encounter (statuses as of 02/17/2022) [facility] Narrative* Problem Noted Date Resolved Date GERD (gastroesophageal reflux disease) 4 09/14/2017 Carpal tunnel syndrome 01/12/2006 0 documented as of this encounter (statuses as of 05/12/2022) [address]28-2014 History of Past illness Narrative* Problem Noted Date Resolved Date GERD (gastroesophageal reflux disease) 4 09/14/2017 Carpal tunnel syndrome 01/12/2006 0 documented as of this encounter (statuses as of 05/13/2022) [place] [id number] History of Past illness Narrative* Problem Noted Date Resolved Date GERD (gastroesophageal reflux disease) 4 09/14/2017 Carpal tunnel syndrome 01/12/2006 0 documented as of this encounter (statuses as of 05/26/2022) [address]28-2014 History of Past illness Narrative* Problem Noted Date Resolved Date GERD (gastroesophageal reflux disease) 4 09/14/2017 Carpal tunnel syndrome 01/12/2006 0 documented as of this encounter (statuses as of 06/03/2022) [place] [id number] History of Past illness Narrative* Problem Noted Date Resolved Date GERD (gastroesophageal reflux disease) 4 09/14/2017 Carpal tunnel syndrome 01/12/2006 0 documented as of this encounter (statuses as of 08/01/2022) [place] [id number] History of Past illness Narrative* Problem Noted Date Diagnosed Date Resolved Date GERD (gastroesophageal reflux disease) 07/25/2013 09/14/2017 Carpal tunnel syndrome 01/12/200606/05 documented as of this encounter (statuses as of 10/28/2022) [place] [id number] History of Past illness Narrative* Problem Noted Date Diagnosed Date Resolved Date GERD (gastroesophageal reflux disease) 07/25/2013 09/14/2017 Carpal tunnel syndrome 01/12/200606/05 documented as of this encounter (statuses as of 11/01/2022) [place] [address]-28-2014 History of Past illness Narrative* Problem Noted Date Diagnosed Date Resolved Date GERD (gastroesophageal reflux disease) 07/25/2013 09/14/2017 Carpal tunnel syndrome 01/12/200606/05 documented as of this encounter (statuses as of 11/14/2022) [address]28-2014 History of Past illness Narrative* Problem Noted Date Diagnosed Date Resolved Date GERD (gastroesophageal reflux disease) 07/25/2013 09/14/2017 Carpal tunnel syndrome 01/12/200606/05 documented as of this encounter (statuses as of 11/24/2022) [address]28-2014 History of Past illness Narrative* Problem Noted Date Diagnosed Date Resolved Date GERD (gastroesophageal reflux disease) 07/25/2013 09/14/2017 Carpal tunnel syndrome 01/12/200606/05 documented as of this encounter (statuses as of 11/26/2022) [address]28-2014 History of Past illness Narrative* Problem Noted Date Diagnosed Date Resolved Date GERD (gastroesophageal reflux disease) 07/25/2013 09/14/2017 Carpal tunnel syndrome 01/12/200606/05 documented as of this encounter (statuses as of 12/04/2022) [address]28-2014 History of Past illness Narrative* Problem Noted Date Diagnosed Date Resolved Date GERD (gastroesophageal reflux disease) 07/25/2013 09/14/2017 Carpal tunnel syndrome 01/12/200606/05 documented as of this encounter (statuses as of 12/05/2022) [place] [address]-28-2014 History of Past illness Narrative* Problem Noted Date Diagnosed Date Resolved Date GERD (gastroesophageal reflux disease) 07/25/2013 09/14/2017 Carpal tunnel syndrome 01/12/200606/05 documented as of this encounter (statuses as of 12/12/2022) [place] [address]28-2014 History of Past illness Narrative* Problem Noted Date Diagnosed Date Resolved Date GERD (gastroesophageal reflux disease) 07/25/2013 09/14/2017 Carpal tunnel syndrome 01/12/200606/05 documented as of this encounter (statuses as of 12/17/2022) [address]28-2014 History of Past illness Narrative* Problem Noted Date Diagnosed Date Resolved Date GERD (gastroesophageal reflux disease) 07/25/2013 09/14/2017 Carpal tunnel syndrome 01/12/200606/05 documented as of this encounter (statuses as of 12/18/2022) [address]28-2014 History of Past illness Narrative* Problem Noted Date Diagnosed Date Resolved Date GERD (gastroesophageal reflux disease) 07/25/2013 09/14/2017 Carpal tunnel syndrome 01/12/200606/05 documented as of this encounter (statuses as of 01/07/2023) [address]28-2014 History of Past illness Narrative* Problem Noted Date Diagnosed Date Resolved Date GERD (gastroesophageal reflux disease) 07/25/2013 09/14/2017 Carpal tunnel syndrome 01/12/200606/05 documented as of this encounter (statuses as of 01/08/2023) [address]28-2014 History of Past illness Narrative* Problem Noted Date Diagnosed Date Resolved Date GERD (gastroesophageal reflux disease) 07/25/2013 09/14/2017 Carpal tunnel syndrome 01/12/200606/05 documented as of this encounter (statuses as of 01/10/2023) [address]28-2014 History of Past illness Narrative* Problem Noted Date Diagnosed Date Resolved Date GERD (gastroesophageal reflux disease) 07/25/2013 09/14/2017 Carpal tunnel syndrome 01/12/200606/05 documented as of this encounter (statuses as of 01/14/2023) [address]28-2014 History of Past illness Narrative* Problem Noted Date Diagnosed Date Resolved Date GERD (gastroesophageal reflux disease) 07/25/2013 09/14/2017 Carpal tunnel syndrome 01/12/200606/05 documented as of this encounter (statuses as of 01/20/2023) [address]28-2014 History of Past illness Narrative* Problem Noted Date Diagnosed Date Resolved Date GERD (gastroesophageal reflux disease) 07/25/2013 09/14/2017 Carpal tunnel syndrome 01/12/200606/05 documented as of this encounter (statuses as of 01/28/2023) [address]28-2014 History of Past illness Narrative* Problem Noted Date Diagnosed Date Resolved Date GERD (gastroesophageal reflux disease) 07/25/2013 09/14/2017 Carpal tunnel syndrome 01/12/200606/05 documented as of this encounter (statuses as of 02/01/2023) [address]28-2014 History of Past illness Narrative* Problem Noted Date Diagnosed Date Resolved Date GERD (gastroesophageal reflux disease) 07/25/2013 09/14/2017 Carpal tunnel syndrome 01/12/200606/05 documented as of this encounter (statuses as of 02/01/2023) [address]28-2014 History of Past illness Narrative* Problem Noted Date Diagnosed Date Resolved Date GERD (gastroesophageal reflux disease) 07/25/2013 09/14/2017 Carpal tunnel syndrome 01/12/200606/05 documented as of this encounter (statuses as of 02/01/2023) [address]28-2014 History of Past illness Narrative* Problem Noted Date Diagnosed Date Resolved Date GERD (gastroesophageal reflux disease) 07/25/2013 09/14/2017 Carpal tunnel syndrome 01/12/200606/05 documented as of this encounter (statuses as of 02/05/2023) [address]28-2014 History of Past illness Narrative* Problem Noted Date Diagnosed Date Resolved Date GERD (gastroesophageal reflux disease) 07/25/2013 09/14/2017 Carpal tunnel syndrome 01/12/200606/05 documented as of this encounter (statuses as of 02/10/2023) [address]28-2014 History of Past illness Narrative* Problem Noted Date Diagnosed Date Resolved Date GERD (gastroesophageal reflux disease) 07/25/2013 09/14/2017 Carpal tunnel syndrome 01/12/200606/05 documented as of this encounter (statuses as of 02/17/2023) [address]28-2014 History of Past illness Narrative* Problem Noted Date Diagnosed Date Resolved Date GERD (gastroesophageal reflux disease) 07/25/2013 09/14/2017 Carpal tunnel syndrome 01/12/200606/05 documented as of this encounter (statuses as of 02/24/2023) [address]28-2014 History of Past illness Narrative* Problem Noted Date Diagnosed Date Resolved Date GERD (gastroesophageal reflux disease) 07/25/2013 09/14/2017 Carpal tunnel syndrome 01/12/200606/05 documented as of this encounter (statuses as of 05/27/2023) [facility] Narrative* Problem Noted Date Diagnosed Date Resolved Date GERD (gastroesophageal reflux disease) 07/25/2013 09/14/2017 Carpal tunnel syndrome 01/12/200606/05 documented as of this encounter (statuses as of 06/15/2023) [facility] Brando Crooks [facility] Note Date/Time October 08, 2024 6:04 am [facility] Medical Records Department [address] [place] [address] Emergency Department Summary 10/08/24 MR#: [id number] Acct: [id number] Name: LUCAS ASTUDILLO Rep #:[id number] 09 : 1955 68 From: Brando Crooks DO PCP: Dr. Eugenio Peralta MD Status:ADM I N Location: ICU ICU[address] [place] [address] History of Present Illness Chief Complaint: Chest Pain Narrative Narrative: Patient is a 68-year-old female who presented to the emergency department with achief complaint of chest pain. She states that for the last few days she has had chest pain and notes that originally she had a procedure on her tooth therefore she stopped taking her acid reflux medication and she thought this washer acid reflux. States that around 3 AM she woke up with severe pain which prompted her to come here for further evaluation management. [facility] Home Medications ?Medication ?Instructions ?Recorded ?Last Taken ?Type pantoprazole 40 mg tablet,delayed 40 mg PO DAILY 02/26 Unknown History release calcium carbonate 500 mg PO QDAY PRN dyspepsia 01/27/24 Unknown History cholecalciferol (vitamin D3) 10 10 mcg PO QDAY PRN sup plement 01/27/24 Unknown History mcg (400 unit) capsule lisinopril 10 mg tablet 10 mg PO QDAY 04/28/24 Unkno wn History Allergy/AdvReac Type Severity Reaction Status Date / Time No Known Allergies Allergy Verified 10/08/24 03:57 Family History Other CAD (coronary artery disease) COPD (chronic obstructive pulmonary disease) Cancer Diabetes Heart disease Hypertension Myocardial infarction Surgical History H/O section Hx of tubal ligation Social History Smoking Status: Never smoker ROS ROS ED ROS Narrative Constitutional: Denies any fevers or chills Eyes: Denies double vision Cardiovascular: Complains of chest pain as noted above Respiratory: Denies coughing wheezing Abdomen: Denies abdominal pain : Denies urinary symptoms Neurological: Denies numbness, wheeze, tingling Musculoskeletal: Denies back pain Skin: Denies any rashes or lesions EXAM Physical Exam Narrative Exam Narrative: General: Patient is lying in bed did appear to be uncomfortable secondary to chest pain Head: Atraumatic, normocephalic Eyes: PERRL bilaterally, EOMI blood, no conjunctival injection noted Neck: Soft, supple, trachea midline Cardiovascular: Regular rate and rhythm Respiratory: Clear to auscultation bilaterally Abdomen: Soft, nondistended Extremities: Radial pulses +2/4 in the bilateral extremities, +5/5 strength noted in the bilateral upper and lower extremities Neurological: Patient follow commands knew that she was at [facility] the year is 2024 Skin: Warm, dry, intact no rashes lesions noted Const Vital Signs: 10/08/24 03:57 10/08/24 04:06 10/08/24 04:18 Temperature 98.1 F 98.9 F Temperature Source Oral Pulse Rate 73 57 L Respiratory Rate 18 18 Blood Pressure 164/106 H 167/96 H Blood Pressure Mean 125 119 Pulse Ox 98 98 100 Oxygen Delivery Method Room Air Nasal Cannula MDM MDM MDM Narrative Medical decision making narrative: Patient is a 68-year-old female who presented to the emergency department chief complaint of chest pain. On the differential diagnosis includes but only to ACS, pneumonia, pneumothorax, PE. Once workup is obtained reviewed she will be reevaluated. I was called into the room immediately and looked at the EKG showed inferior wall MS. I called STEMI alert immediately. I ordered [address] Rowley was notified of the inferior wall MS and STEMI. He is also recommending heparin which was ordered. Patient case will be discussed with hospitalist for admission. Discussed case with hospitalist Dr. Soni who will accept patient for admission. Patient's CBC reviewed showed no evidence leukocytosis white blood count was 6.9, he was 12.9, platelet count 165. Patient INR normal 1, PT of 13.2. Patient's sodium normal 141, testing normal 3.8, creatinine was 1.20. Patient'stroponin was 48 with a second troponin pending. Patient was ultimately taken down to the [facility] for her STEMI. While here in the emergency department ARBEN JOSE was called. Shortly after this I went down to see if there was any assistance needed and the patient reportedly went into V. tach and went unresponsive therefore while I was arriving they were electively intubating the patient as her oxygen saturations also dropped. During the intubation attempt by Dr. Soni he did give a total of 40 mg of etomidate. There was some difficulty therefore he asked me to attempt to intubate the patient. See procedure note for separate details. After intubation while on the heart catheterization table we had bilateral breath sounds live fluoroscopy was shot at her chest and the ET tube appeared mariola 3 cm above the irish. Patient was then placed on mechanical ventilation. 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 My hands were washed daily prior to the procedure. Woresurgical cap, mask with protective eyewear, gown and gloves throughout the procedure. The patient was placed on a commercial lines insurance agent including continuous pulse oximetry. Rapid sequence intubation was conducted. The patient received 40 milligrams of etomidate for induction prior to my arrival and 100 milligramsof succinylcholine for adequate paralysis. Using a video-assisted laryngoscope and a size 7.5 endotracheal tube with stylette, the patient was intubated on thefirst attempt. Stylet was removed and cuff balloon was inflated. Appropriate endotracheal tube position was confirmed by direct visualization of cord passage, fogging of the tube, CO2: Metric indicator and symmetric breath sounds. The tube was secured at 23 centimeters at the lips. Critical care time 67 minutes Lab Data Labs: Laboratory Results - last 24 hr 10/08/24 03:58 WBC 6.9 RBC 4.41 Hgb 12.9 Hct 40.0 MCV 90.7 MCH 29.3 MCHC 32.3 RDW Std Deviation 45.1 H RDW Coeff of Linda 13.7 Plt Count 165 MPV 11.3 Immature Gran % (Auto) 0.300 Neut % (Auto) 57.2 Lymph % (Auto) 34.9 [place] % (Auto) 5.9 Eos % (Auto) 1.3 Baso % (Auto) 0.4 Absolute Neuts (auto) 4.0 Absolute Lymphs (auto) 2.41 Nucleated RBC % 0 PT 13.2 INR 1.0 APTT 27.4 Sodium 141 Potassium 3.8 Chloride 105 Carbon Dioxide 22.9 Anion Gap 13 BUN 13 Creatinine 1.20 Estim Creat Clear Calc 50.48 Est GFR (MDRD) Non-Af 49 L BUN/Creatinine Ratio 10.9 Glucose 154 H Calcium 9.2 Troponin T High Sens 48 H Discharge Plan Triage Chief Complaint: Chest Pain ED Provider: Brando Crooks Dx/Rx/DC Orders Clinical Impression: ST elevation (STEMI) myocardial infarction, Flash pulmonary edema, Acute hypoxic respiratory failure, Chest pain Primary Care Provider: Eugenio Peralta Disposition Disposition: Acute Care Hospital [facility] What to do if you have Problems For any increased pain, shortness of breath, bleeding, nausea or vomiting, chestpain, or any unexpected problems, contact your Primary Care Provider. Call [facility] ([phone]) or report to the closest Emergency Room. Call 911 if necessary. 10/08/24 0604 <Electronically signed by Brando Crooks DO> Cosigner Signature (if applicable): CC: Dr. Eugenio Peralta MD ~ Signed [facility] Work Phone: Evaluation note* Diagnosis Need for COVID-19 vaccine- [facility] Diagnosis Need for vaccination- Primary Need for prophylactic vaccination and inoculation against unspecified single disease [facility] Diagnosis Encounter for screening mammogram for malignant neoplasm of breast- Primary Other screening mamm[facility] Diagnosis Essential hypertension- Primary Unspecified essential hypertension [facility] Diagnosis Encounter for gynecological examination (general) (routine) without abnormal findings- Primary Encounter for screening mammogram for breast cancer 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 [facility] this [facility]* Diagnosis Encounter for screening mammogram for malignant neoplasm of breast Other screening [facility] Diagnosis Gastroesophageal reflux disease without esophagitis Esophageal reflux [facility] this [facility]* Diagnosis URI, acute- Primary Acute upper respiratory infections of unspecified site Sore throat Acute pharyngitis [facility]* Diagnosis Sinobronchitis- Primary Unspecified sinusitis (chronic) documented [facility] this [facility]* Diagnosis Need for vaccination- Primary Need for prophylactic vaccination and inoculation against unspecified single disease [facility] this [facility]* Diagnosis Encounter for screening mammogram for malignant neoplasm of breast- Primary Other screening mammogram Dense breast tissue [facility] this [facility]* Diagnosis Dyskinesia of esophagus- Primary Gastroesophageal reflux disease without esophagitis Esophageal reflux Hx of acute gastritis Personal history of unspecified digestive disease documented [facility] this [facility]* Diagnosis Dyskinesia of esophagus Gastroesophageal reflux disease without esophagitis Esophageal reflux Hx of acute gastritis Personal history of unspecified digestive disease [facility] this [facility]* Diagnosis Dysphagia, unspecified type- Primary Chronic superficial gastritis without bleeding Atrophic gastritis without mention of hemorrhage Long-term current use of proton pump inhibitor therapy Allergic contact dermatitis due to adhesives Contact dermatitis and other eczema due to other chemical products documented [facility] this [facility]* Diagnosis Sore throat- Primary Acute pharyngitis URI, acute Acute upper respiratory infections of unspecified site Non-recurrent acute serous otitis media of right ear documented [facility] this [facility]* Diagnosis Essential hypertension- [...] subsequent Routine general medical examination at a health care facility Wellness examination documented [facility]* Diagnosis Pain- Primary Generalized pain [facility] this [facility]* Diagnosis Arthritis of right sacroiliac joint- Primary documented [facility]* Diagnosis Arthritis of right sacroiliac joint- Primary documented [facility] this [facility]* Diagnosis Arthritis of right sacroiliac joint- Primary documented [facility]* Diagnosis Plantar fasciitis- Primary Plantar fascial fibromatosis Pes planus of both feet documented [facility]* Diagnosis Symptomatic varicose veins of both lower extremities- Primary Varicose veins of lower extremities with other complications documented [facility]* Diagnosis Plantar fasciitis Plantar fascial fibromatosis Flat feet, bilateral documented [facility] this [facility]* Diagnosis Pulsatile abdomen Other symptoms involving abdomen and pelvis documented [facility] this [facility]* Diagnosis Encounter for screening mammogram for malignant neoplasm of breast Other screening mammogram Dense breast tissue [facility] this [facility]* Diagnosis Gastroesophageal reflux disease, unspecified whether esophagitis present- Primary Gastroesophageal reflux disease with esophagitis without hemorrhage Gastric polyps Benign neoplasm of stomach Dysphagia, unspecified type documented [facility] this [facility]* Diagnosis Asymptomatic postmenopausal state documented in this [facility]* Diagnosis Plantar fasciitis- Primary Plantar fascial fibromatosis Flat feet, bilateral documented [facility] this [facility]* Diagnosis Symptomatic varicose veins of both lower extremities Varicose veins of lower extremities with other complications documented [facility]* Diagnosis Symptomatic varicose veins of both lower extremities- Primary Varicose veins of lower extremities with other complications documented [facility] this [facility]* Diagnosis Dyskinesia of esophagus- Primary Gastroesophageal reflux disease without esophagitis Esophageal reflux documented [facility] this [facility]* Diagnosis Rib pain on left side- Primary Chest pain, unspecified [facility] this [facility]* Diagnosis Arthritis of right sacroiliac joint- Primary documented [facility] this [facility]* Diagnosis Encounter for screening mammogram for malignant neoplasm of breast- Primary Other screening mammogram documented [facility] this [facility]* Diagnosis Contact dermatitis, unspecified contact dermatitis type, unspecified trigger- Primary documented [facility] this [facility]* Diagnosis Gastroesophageal reflux disease without esophagitis Esophageal reflux [facility]* Diagnosis URI, acute Acute upper respiratory infections of unspecified site Acute cough documented in this encounter [facility] note* Diagnosis Pain Generalized pain documented in this encounter [facility] note* Diagnosis Hand pain, right Pain in limb documented in this encounter [facility] note* Diagnosis Arthritis of right sacroiliac joint Lumbosacral pain Lumbago documented in this encounter [facility] note* Diagnosis Sinobronchitis Unspecified sinusitis (chronic) documented in this encounter [facility] note* Diagnosis Sinus congestion- Primary Other diseases of nasal cavity and sinuses Elevated blood pressure reading without diagnosis of hypertension documented [facility] this [facility]* Diagnosis Encounter for gynecological examination (general) (routine) without abnormal findings- Primary Encounter for screening mammogram for breast cancer Postmenopausal atrophic vaginitis Screening for malignant neoplasm of cervix Screening for malignant neoplasm of the cervix Encounter for screening for human papillomavirus (HPV) Special screening examination for human papillomavirus (HPV) documented in this encounter [facility] note* Diagnosis Encounter for screening mammogram for malignant neoplasm of breast Other screening mammogram documented [facility]* Diagnosis Primary hypertension- Primary Unspecified essential hypertension Acute pain of right knee documented in this encounter [facility] note* Diagnosis Acute pain of right knee documented in this encounter [facility] note* Diagnosis Primary hypertension- Primary Unspecified essential hypertension documented in this encounter [facility] note* Diagnosis Primary hypertension Unspecified essential hypertension documented in this encounter [facility] note* Diagnosis Onset Date Resolution Status Admit Date Acute hypoxic respiratory failure ac tesha October 08, 2024 4:24am Chest pain acute October 08 4:24am Flash pulmonary edema acute Sep 4:24am ST elevation (STEMI) myocard ial infarction acute October 08, 2024 4:24am ST elevation myocardial infarction (STEMI) of inferior wall acute October 08, 2024 4:24am [facility] Work Phone: Reason for referral (narrative)* Diagnostic Procedure Only (Routine) - Authorized Specialty Diagnoses / Procedures Referred By Esther baugh Referred To Contact [facility] Diagnoses Encounter for screening mammogram for malignant neoplasm of breast Procedures ELLIOT SCREENING SCREENING MAMMOGRAPHY BI 2-VIEW BREAST INC Sharon Matias, KITCHEN CHEF.BODY AND FRAME TECHNICIAN [address] [place] [address] [facility] [address] [place] [address] Referral ID Status Reason Start Date Expiration Date Visits Requested Visits Authorized [id number] Authorized Auto-Generat ed Referral 12/10/2021 01/09/2023 1 1 [facility] for referral (narrative)* Diagnostic Procedure Only (Routine) - Pending Review Specialty Diagnoses / Procedures Referred By Contac t Referred To Contact [facility] Diagnoses Postmenopausal atrophic vaginitis Procedures ELLIOT SCREENING SCREENING MAMMOGRAPHY BI 2-VIEW BREAST INC CAD Tiffani Gant APRN.BODY AND FRAME TECHNICIAN [address] [place] [address] [facility] [address] [place] [address] Referral ID Status Reason Start Date Expiration Date Visits Requested Visits Authorized [id number] Pending Review Auto-Generat ed Referral 01/02/2022 02/01/2023 1 1 [facility] for referral (narrative)* Diagnostic Procedure Only (Routine) - Closed Specialty Diagnoses / Procedures Referred By Contac t Referred To Contact [facility] Diagnoses Encounter for screening mammogram for malignant neoplasm of breast Procedures ELLIOT SCREENING SCREENING MAMMOGRAPHY BI 2-VIEW BREAST INC CAD Sharon Ellis APRN.BODY AND FRAME TECHNICIAN [address] [place] [address] [facility] [address] [place] [address] Referral ID Status Reason Start Date Expiration Date V isits Requested Visits Authorized [id number] Closed Auto-Generate d Referral 12/10/2021 01/09/2023 1 1 [facility] for referral (narrative)* Diagnostic Procedure Only (Routine) - Authorized Specialty Diagnoses / Procedures Referred By Contac t Referred To Contact [facility] Diagnoses Encounter for screening mammogram for malignant neoplasm of breast Dense breast tissue Procedures ELLIOT SCREENING W SAIRA SCREENING DIGITAL BREAST TOMOSYNTHESIS BI SCREENING MAMMOGRAPHY BI 2-VIEW BREAST INC Tiffani Salcido APRN.CNP [address] [address] [facility] [address] [place] [address] Referral ID Status Reason Start Date Expiration Date Visits Requested Visits Authorized [id number] Authorized Auto-Generat ed Referral 05/26/2022 06/25/2023 1 1 [facility] for referral (narrative)* Diagnostic Procedure Only (Routine) - Closed Specialty Diagnoses / Procedures Referred By Esther baugh Referred To Contact X[facility]AG[facility] Diagnoses Arthritis of right sacroiliac joint Lumbosacral pain Procedures XR LUMBAR GENERAL 3V AP/LAT/L5-S1 RADEX SPINE LUMBOSACRAL 2/3 VIEWS Mavis Hughes PA-C [address] [place] [address] [place] [address] Referral ID Status Reason Start Date Expiration Date V isits Requested Visits Authorized [id number] Closed Auto-Generate d Referral 11/14/2022 12/14/2023 1 1 * Diagnostic Procedure Only (Routine) - Authorized Specialty Diagnoses / Procedures Referred By Esther baugh Referred To Contact [facility] Diagnoses Pulsatile abdomen Procedures US SCREENING FOR AAA (2017) US ABDOMINAL AORTA REAL TIME SCREEN STUDY AAA Mavis Hughes PA-C [address] [place] [address] [place] [address] Referral ID Status Reason Start Date Expiration Date Visits Requested Visits Authorized [id number] Authorized Auto-Generat ed Referral 11/14/2022 12/14/2023 1 1 * Consult, Test, Treat (Routine) - Authorized Specialty Diagnoses / Procedures Referred By Contac t Referred To Contact Pain Management Diagnoses Arthritis of right sacroiliac joint Procedures CONSULT TO PAIN MGT OFFICE/OUTPATIENT NEW HIGH MDM 60-74 MINUTES Mavis Hughes PA-C [address] [place] [address] Referral ID Status Reason Start Date Expiration Date Visits Requested Visits Authorized [id number] Authorized PCP Requested Referral 11/14/2022 11/14/2023 1 1 [facility] for referral (narrative)* Diagnostic Procedure Only (Routine) - Authorized Specialty Diagnoses / Procedures Referred By Contac t Referred To Contact [facility] Diagnoses Pain Procedures XR FOOT GENERAL 3V AP/LAT/OBL BILATERAL RADEX FOOT COMPLETE MINIMUM 3 VIEWS Jt Ramachandran [address] [place] [address] [facility] [address] [place] [address] Referral ID Status Reason Start Date Expiration Date Visits Requested Visits Authorized [id number] Authorized Auto-Generat ed Referral 11/26/2022 12/26/2023 1 1 [facility] for referral (narrative)* Diagnostic Procedure Only (Routine) - Closed Specialty Diagnoses / Procedures Referred By Contac t Referred To Contact [facility] Diagnoses Pulsatile abdomen Procedures US SCREENING FOR AAA (2017) US ABDOMINAL AORTA REAL TIME SCREEN STUDY AAA Mavis Hughes PA-C [address] [place] [address] [place] [address] Referral ID Status Reason Start Date Expiration Date V isits Requested Visits Authorized [id number] Closed Auto-Generate d Referral 11/14/2022 12/14/2023 1 1 [facility] for referral (narrative)* Diagnostic Procedure Only (Routine) - Closed Specialty Diagnoses / Procedures Referred By Genieac t Referred To Contact [facility] Diagnoses Encounter for screening mammogram for malignant neoplasm of breast Dense breast tissue Procedures ELLIOT SCREENING W SAIRA SCREENING DIGITAL BREAST TOMOSYNTHESIS BI SCREENING MAMMOGRAPHY BI 2-VIEW BREAST INC CAD Tiffani Gant APRN.CNP [address] [place] [address] [facility] [address] [place] [address] Referral ID Status Reason Start Date Expiration Date V isits Requested Visits Authorized [id number] Closed Auto-Generate d Referral 05/26/2022 06/25/2023 1 1 [facility] for referral (narrative)* Outpatient Procedure (Routine) - Closed Specialty Diagnoses / Procedures Referred By Contac t Referred To Contact [facility] Diagnoses Gastroesophageal reflux disease with esophagitis without hemorrhage Gastric polyps Dysphagia, unspecified type Procedures EGD DIAGNOSTIC ESOPHAGOGASTRODUODENOSC OPY TRANSORAL DIAGNOSTIC Crystal Pastrana PA-C [address] [place] [address] [facility] [address] [place] [address] Referral ID Status Reason Start Date Expiration Date V isits Requested Visits Authorized [id number] Closed Auto-Generate d Referral 07/22/2022 07/23/2023 1 1 [facility] for referral (narrative)* Outpatient Procedure (Routine) - Authorized Specialty Diagnoses / Procedures Referred By Contac t Referred To Contact [facility] Diagnoses Symptomatic varicose veins of both lower extremities Procedures US VENOUS INCOMPETENCY RONNI VAS LAB DUP-SCAN XTR VEINS COMPLETE BILATERAL STUDY Lexy Kovacs, [address] [place] [address] [facility] [place] [address] [place] [address] Referral ID Status Reason Start Date Expiration Date Visits Requested Visits Authorized [id number] Authorized Auto-Generat ed Referral 3 02/17/2024 1 1 [facility] for referral (narrative)* Diagnostic Procedure Only (Routine) - Authorized Specialty Diagnoses / Procedures Referred By Contac t Referred To Contact [facility] Diagnoses Encounter for screening mammogram for malignant neoplasm of breast Procedures ELLIOT SCREENING W SAIRA SCREENING DIGITAL BREAST TOMOSYNTHESIS BI SCREENING MAMMOGRAPHY BI 2-VIEW BREAST INC Tiffani Salcido APRN.CNP [address] [place] [address] [facility] [address] [facility] [place] [address] Referral ID Status Reason Start Date Expiration Date Visits Requested Visits Authorized [id number] Authorized Auto-Generat ed Referral 08/27/2023 09/24/2024 1 1 [facility] for referral (narrative)* Diagnostic Procedure Only (Routine) - Closed Specialty Diagnoses / Procedures Referred By Contac t Referred To Contact [facility] Diagnoses Pain Procedures XR FOOT GENERAL 3V AP/LAT/OBL BILATERAL RADEX FOOT COMPLETE MINIMUM 3 VIEWS Jt Ramachandran [address] [place] [address] [facility] [address] [place] [address] Referral ID Status Reason Start Date Expiration Date V isits Requested Visits Authorized [id number] Closed Auto-Generate d Referral 11/26/2022 12/26/2023 1 1 [facility] for referral (narrative)* Diagnostic Procedure Only (Urgent) - Closed Specialty Diagnoses / Procedures Referred By Contac t Referred To Contact X[facility] IMAG[facility] Diagnoses Tendonitis of finger Procedures XR HAND GENERAL 3V PA/LAT/OBL RIGHT RADEX HAND MINIMUM 3 VIEWS Aury Albarado, PA-C [address] [place] [address] [place] [address] Referral ID Status Reason Start Date Expiration Date V isits Requested Visits Authorized [id number] Closed Auto-Generate d Referral 10/21/2022 11/20/2023 1 1 [facility] for referral (narrative)* Diagnostic Procedure Only (Routine) - Closed Specialty Diagnoses / Procedures Referred By Esther t Referred To Contact X[facility] IMAG[facility] Diagnoses Arthritis of right sacroiliac joint Lumbosacral pain Procedures XR LUMBAR GENERAL 3V AP/LAT/L5-S1 RADEX SPINE LUMBOSACRAL 2/3 VIEWS Mavis Hughes PA-C [address] [place] [address] [place] [address] Referral ID Status Reason Start Date Expiration Date V isits Requested Visits Authorized [id number] Closed Auto-Generate d Referral 11/14/2022 12/14/2023 1 1 [facility] for referral (narrative)* Diagnostic Procedure Only (Routine) - Authorized Specialty Diagnoses / Procedures Referred By Esther baugh Referred To Contact [facility] Diagnoses Encounter for gynecological examination (general) (routine) without abnormal findings Encounter for screening mammogram for breast cancer Procedures ELLIOT SCREENING W SAIRA SCREENING DIGITAL BREAST TOMOSYNTHESIS BI SCREENING MAMMOGRAPHY BI 2-VIEW BREAST INC Tiffani Salcido APRN.CNP [address] [place] [address] [facility] [address] [place] [address] Referral ID Status Reason Start Date Expiration Date Visits Requested Visits Authorized [id number] Authorized Auto-Generat ed Referral 02/05/2025 1 1 [facility] for referral (narrative)* Diagnostic Procedure Only (Routine) - Closed Specialty Diagnoses / Procedures Referred By Contac t Referred To Contact [facility] Diagnoses Encounter for screening mammogram for malignant neoplasm of breast Procedures ELLIOT SCREENING W SAIRA SCREENING DIGITAL BREAST TOMOSYNTHESIS BI SCREENING MAMMOGRAPHY BI 2-VIEW BREAST INC CAD Tiffani Gant, KITCHEN CHEF.BODY AND FRAME TECHNICIAN [address] [place] [address] [facility] [address] [place] [address] Referral ID Status Reason Start Date Expiration Date V isits Requested Visits Authorized [id number] Closed Auto-Generate d Referral 08/27/2023 09/24/2024 1 1 [facility] for referral (narrative)* Diagnostic Procedure Only (Routine) - Closed Specialty Diagnoses / Procedures Referred By Esther baugh Referred To Contact [facility] Diagnoses Acute pain of right knee Procedures XR KNEE GENERAL 4V AP BOTH/PA BOTH/LAT/MERC RIGHT RADIOLOGIC EXAM KNEE COMPLETE 4/MORE VIEWS Lola Farris, KITCHEN CHEF.BODY AND FRAME TECHNICIAN [address] [place] [address] [place] [address] Referral ID Status Reason Start Date Expiration Date V isits Requested Visits Authorized [id number] Closed Auto-Generate d Referral 02/22/2024 03/23/2025 1 1 [facility] for referral (narrative)No reason for referral information [facility] Phone: Reason for visit Narrative* Diagnostic Procedure Only (Routine) - Closed Specialty Diagnoses / Procedures Referred By Esther t Referred To Contact [facility] Diagnoses Encounter for screening mammogram for malignant neoplasm of breast Procedures ELLIOT SCREENING SCREENING MAMMOGRAPHY BI 2-VIEW BREAST INC Sharon Matias KITCHEN CHEF.BODY AND FRAME TECHNICIAN [address] [place] [address] [facility] [address] [place] [address] Referral ID Status Reason Start Date Expiration Date V isits Requested Visits Authorized [id number] Closed Auto-Generate d Referral 12/10/2021 01/09/2023 1 1 [facility] for visit Narrative* Diagnostic Procedure Only (Routine) - Closed Specialty Diagnoses / Procedures Referred By Esther baugh Referred To Contact [facility] Diagnoses Encounter for screening mammogram for malignant neoplasm of breast Dense breast tissue Procedures ELLIOT SCREENING W SAIRA SCREENING DIGITAL BREAST TOMOSYNTHESIS BI SCREENING MAMMOGRAPHY BI 2-VIEW BREAST INC CAD Tiffani Gant APRN.BODY AND FRAME TECHNICIAN [address] [place] [address] [facility] [address] [place] [address] Referral ID Status Reason Start Date Expiration Date V isits Requested Visits Authorized [id number] Closed Auto-Generate d Referral 05/26/2022 06/25/2023 1 1 [facility] for visit Narrative* Outpatient Procedure (Routine) - Closed Specialty Diagnoses / Procedures Referred By Esther baugh Referred To Contact [facility] Diagnoses Gastroesophageal reflux disease with esophagitis without hemorrhage Gastric polyps Dysphagia, unspecified type Procedures EGD DIAGNOSTIC ESOPHAGOGASTRODUODENOSC OPY TRANSORAL DIAGNOSTIC Crystal Pastrana PA-C [address] [place] [address] [facility] [address] [place] [address] Referral ID Status Reason Start Date Expiration Date V isits Requested Visits Authorized [id number] Closed Auto-Generate d Referral 07/22/2022 07/23/2023 1 1 [facility] for visit Narrative* Diagnostic Procedure Only (Routine) - Closed Specialty Diagnoses / Procedures Referred By Esther baugh Referred To Contact [facility] Diagnoses Pain Procedures XR FOOT GENERAL 3V AP/LAT/OBL BILATERAL RADEX FOOT COMPLETE MINIMUM 3 VIEWS Jt Ramachandran [address] [place] [address] [facility] [address] [place] [address] Referral ID Status Reason Start Date Expiration Date V isits Requested Visits Authorized [id number] Closed Auto-Generate d Referral 11/26/2022 12/26/2023 1 1 [facility] for visit Narrative* Diagnostic Procedure Only (Urgent) - Closed Specialty Diagnoses / Procedures Referred By Contac t Referred To Contact [facility] Diagnoses Tendonitis of finger Procedures XR HAND GENERAL 3V PA/LAT/OBL RIGHT RADEX HAND MINIMUM 3 VIEWS Aury Albarado, PA-C [address] [place] [address] [place] [address] Referral ID Status Reason Start Date Expiration Date V isits Requested Visits Authorized [id number] Closed Auto-Generate d Referral 10/21/2022 11/20/2023 1 1 [facility] for visit Narrative* Diagnostic Procedure Only (Routine) - Closed Specialty Diagnoses / Procedures Referred By Contac t Referred To Contact [facility] Diagnoses Arthritis of right sacroiliac joint Lumbosacral pain Procedures XR LUMBAR GENERAL 3V AP/LAT/L5-S1 RADEX SPINE LUMBOSACRAL 2/3 VIEWS Mavis Hughes, PA-C [address] [place] [address] [place] [address] Referral ID Status Reason Start Date Expiration Date V isits Requested Visits Authorized [id number] Closed Auto-Generate d Referral 11/14/2022 12/14/2023 1 1 [facility] for visit Narrative* Diagnostic Procedure Only (Routine) - Closed Specialty Diagnoses / Procedures Referred By Contac t Referred To Contact [facility] Diagnoses Encounter for screening mammogram for malignant neoplasm of breast Procedures ELLIOT SCREENING W SAIRA SCREENING DIGITAL BREAST TOMOSYNTHESIS BI SCREENING MAMMOGRAPHY BI 2-VIEW BREAST INC Tiffani Salcido, KITCHEN CHEF.BODY AND FRAME TECHNICIAN [address] [place] [address] [facility] [address] [place] [address] Referral ID Status Reason Start Date Expiration Date V isits Requested Visits Authorized [id number] Closed Auto-Generate d Referral 08/27/2023 09/24/2024 1 1 [facility] for visit Narrative* Diagnostic Procedure Only (Routine) - Closed Specialty Diagnoses / Procedures Referred By Contac t Referred To Contact [facility] Diagnoses Acute pain of right knee Procedures XR KNEE GENERAL 4V AP BOTH/PA BOTH/LAT/MERC RIGHT RADIOLOGIC EXAM KNEE COMPLETE 4/MORE VIEWS Lola Farris, NATALIA.BODY AND FRAME TECHNICIAN [address] [place] [address] [place] [address] Referral ID Status Reason Start Date Expiration Date V isits Requested Visits Authorized [id number] Closed Auto-Generate d Referral 02/22/2024 03/23/[address] 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 No October 08, 2024 3:57am Reason for Referral Specialty Diagnoses / Procedures Referred By Genieac t Referred To Contact General Surgery Diagnoses Dyskinesia of esophagus Gastroesophageal reflux disease without esophagitis Hx of acute gastritis Procedures CONSULT TO GENERAL SURGERY OFFICE/OUTPATIENT [facility] [place] 60-74 MINUTES Mavis Hughes PA-C [address] [place] [address] Referral ID Status Reason Start Date Expiration Date Visits Requested Visits Authorized [id number] Authorized PCP Requested Referral 06/02/2022 06/02/2023 1 1 Specialty Diagnoses / Procedures Referred By Contac t Referred To Contact [facility] Surgery Diagnoses Symptomatic varicose veins of both lower extremities Procedures CONSULT TO VASCULAR SURGERY OFFICE/OUTPATIENT [facility] [place] 60-74 MINUTES Mavis Hughes PA-C [address] [place] [address] Referral ID Status Reason Start Date Expiration Date Visits Requested Visits Authorized [id number] Authorized PCP Requested Referral 01/06/2024 1 1 Specialty Diagnoses / Procedures Referred By Contac t Referred To Contact [facility] Diagnoses Arthritis of right sacroiliac joint Procedures CONSULT TO PHYSICAL THERAPY PHYSICAL THERAPY EVALUATION HIGH COMPLEX 45 MINS Mavis Hughes PA-C [address] [place] [address] [facility] [place] [address] Referral ID Status Reason Start Date Expiration Date V isits Requested Visits Authorized [id number] Closed Auto-Generate d Referral 11/20/2022 03/29/2023 99 99 Medications Administered Section Inactive Administered Medications - up to 3 most recent administrations Medication Order MAR Action Action Date Dose Rate Site benzocaine 20% 1 [place] (TOPEX) 1 [place], TOPICAL, DIRECTED, Starting on Thu10/20/22 at 0930, Until Thu10/20/22 at 1329, DOSING DIRECTED BY PHYSICIAN FOR PROCEDURAL SEDATION ONLY - Pharmaceutical Waste: Aerosol -, Intraprocedure Given 10/20/2022 9:01 AM EDT 1 [place] diphenhydrAMINE 12.5-50 mg injection (BENADRYL) 12.5-50 mg, [...] Given 10/20/2022 9:03 AM EDT 3 mg Chief Complaint and Reason for Visit Chief Complaint Admit Date STEMI October 08, 2024 4:24 am Reason for Visit Admit Date Acute hypoxic respiratory failure September 272024 4:24am Chest pain October 08, 2024 4:24 am Flash pulmonary edema October 08, 2024 4: 24am ST elevation (STEMI) myocardial infarcti on October 08, 2024 4:24am ST elevation myocardial infarction (STEM I) of inferior wall October 08, 2024 4:24am Additional Source Comments INFORMATION SOURCE (unrecogn ized section and content) DATE CREATED AUTHOR 06/13/2020 Jignesh Breaux [facility] DATE CREATED AUTHOR AUTHOR'S ORGANIZ ATION 04/19/2024 [facility] DATE CREATED AUTHOR AUTHOR'S ORGANIZ ATION 04/29/2024 [facility] Source Comments (unrecognize d section and content) In the event this informatio n is protected by the Federal Confidentiality of Alcohol and Drug Abuse Patient Records regulations: The Federal rules restrict any use of the information to criminally investigate or prosecute any alcohol or drug abuse patient.[facility] the event this information is protected by the Federal Confidentiality of Alcohol and Drug Abuse Patient Records regulations: The Federal rules restrict any use of the information to criminally investigate or prosecute any alcohol or drug abuse patient.[facility] the event this information is protected by the Federal Confidentiality of Alcohol and Drug Abuse Patient Records regulations: The Federal rules restrict any use of the information to criminally investigate or prosecute any alcohol or drug abuse patient.[facility] the event this information is protected by the Federal Confidentiality of Alcohol and Drug Abuse Patient Records regulations: The Federal rules restrict any use of the information to criminally investigate or prosecute any alcohol or drug abuse patient.[facility] the event this information is protected by the Federal Confidentiality of Alcohol and Drug Abuse Patient Records regulations: The Federal rules restrict any use of the information to criminally investigate or prosecute any alcohol or drug abuse patient.[facility] the event this information is protected by the Federal Confidentiality of Alcohol and Drug Abuse Patient Records regulations: The Federal rules restrict any use of the information to criminally investigate or prosecute any alcohol or drug abuse patient.[facility] the event this information is protected by the Federal Confidentiality of Alcohol and Drug Abuse Patient Records regulations: The Federal rules restrict any use of the information to criminally investigate or prosecute any alcohol or drug abuse patient.[facility] the event this information is protected by the Federal Confidentiality of Alcohol and Drug Abuse Patient Records regulations: The Federal rules restrict any use of the information to criminally investigate or prosecute any alcohol or drug abuse patient.[facility] the event this information is protected by the Federal Confidentiality of Alcohol and Drug Abuse Patient Records regulations: The Federal rules restrict any use of the information to criminally investigate or prosecute any alcohol or drug abuse patient.[facility] the event this information is protected by the Federal Confidentiality of Alcohol and Drug Abuse Patient Records regulations: The Federal rules restrict any use of the information to criminally investigate or prosecute any alcohol or drug abuse patient.[facility] the event this information is protected by the Federal Confidentiality of Alcohol and Drug Abuse Patient Records regulations: The Federal rules restrict any use of the information to criminally investigate or prosecute any alcohol or drug abuse patient.[facility] the event this information is protected by the Federal Confidentiality of Alcohol and Drug Abuse Patient Records regulations: The Federal rules restrict any use of the information to criminally investigate or prosecute any alcohol or drug abuse patient.[facility] the event this information is protected by the Federal Confidentiality of Alcohol and Drug Abuse Patient Records regulations: The Federal rules restrict any use of the information to criminally investigate or prosecute any alcohol or drug abuse patient.[facility]In the event this information is protected by the Federal Confidentiality of Alcohol and Drug Abuse Patient Records regulations: The Federal rules restrict any use of the information to criminally investigate or prosecute any alcohol or drug abuse patient.[facility] the event this information is protected by the Federal Confidentiality of Alcohol and Drug Abuse Patient Records regulations: The Federal rules restrict any use of the information to criminally investigate or prosecute any alcohol or drug abuse patient.[facility]In the event this information is protected by the Federal Confidentiality of Alcohol and Drug Abuse Patient Records regulations: The Federal rules restrict any use of the information to criminally investigate or prosecute any alcohol or drug abuse patient.[facility]In the event this information is protected by the Federal Confidentiality of Alcohol and Drug Abuse Patient Records regulations: The Federal rules restrict any use of the information to criminally investigate or prosecute any alcohol or drug abuse patient.[facility] the event this information is protected by the Federal Confidentiality of Alcohol and Drug Abuse Patient Records regulations: The Federal rules restrict any use of the information to criminally investigate or prosecute any alcohol or drug abuse patient.[facility]In the event this information is protected by the Federal Confidentiality of Alcohol and Drug Abuse Patient Records regulations: The Federal rules restrict any use of the information to criminally investigate or prosecute any alcohol or drug abuse patient.[facility]In the event this information is protected by the Federal Confidentiality of Alcohol and Drug Abuse Patient Records regulations: The Federal rules restrict any use of the information to criminally investigate or prosecute any alcohol or drug abuse patient.[facility]In the event this information is protected by the Federal Confidentiality of Alcohol and Drug Abuse Patient Records regulations: The Federal rules restrict any use of the information to criminally investigate or prosecute any alcohol or drug abuse patient.[facility]In the event this information is protected by the Federal Confidentiality of Alcohol and Drug Abuse Patient Records regulations: The Federal rules restrict any use of the information to criminally investigate or prosecute any alcohol or drug abuse patient.[facility]In the event this information is protected by the Federal Confidentiality of Alcohol and Drug Abuse Patient Records regulations: The Federal rules restrict any use of the information to criminally investigate or prosecute any alcohol or drug abuse patient.[facility]In the event this information is protected by the Federal Confidentiality of Alcohol and Drug Abuse Patient Records regulations: The Federal rules restrict any use of the information to criminally investigate or prosecute any alcohol or drug abuse patient.[facility]In the event this information is protected by the Federal Confidentiality of Alcohol and Drug Abuse Patient Records regulations: The Federal rules restrict any use of the information to criminally investigate or prosecute any alcohol or drug abuse patient.[facility]In the event this information is protected by the Federal Confidentiality of Alcohol and Drug Abuse Patient Records regulations: The Federal rules restrict any use of the information to criminally investigate or prosecute any alcohol or drug abuse patient.[facility]In the event this information is protected by the Federal Confidentiality of Alcohol and Drug Abuse Patient Records regulations: The Federal rules restrict any use of the information to criminally investigate or prosecute any alcohol or drug abuse patient.[facility]In the event this information is protected by the Federal Confidentiality of Alcohol and Drug Abuse Patient Records regulations: The Federal rules restrict any use of the information to criminally investigate or prosecute any alcohol or drug abuse patient.[facility]In the event this information is protected by the Federal Confidentiality of Alcohol and Drug Abuse Patient Records regulations: The Federal rules restrict any use of the information to criminally investigate or prosecute any alcohol or drug abuse patient.[facility]In the event this information is protected by the Federal Confidentiality of Alcohol and Drug Abuse Patient Records regulations: The Federal rules restrict any use of the information to criminally investigate or prosecute any alcohol or drug abuse patient.[facility]In the event this information is protected by the Federal Confidentiality of Alcohol and Drug Abuse Patient Records regulations: The Federal rules restrict any use of the information to criminally investigate or prosecute any alcohol or drug abuse patient.[facility] HospitalIn the event this information is protected by the Federal Confidentiality of Alcohol and Drug Abuse Patient Records regulations: The Federal rules restrict any use of the information to criminally investigate or prosecute any alcohol or drug abuse patient.[facility]In the event this information is protected by the Federal Confidentiality of Alcohol and Drug Abuse Patient Records regulations: The Federal rules restrict any use of the information to criminally investigate or prosecute any alcohol or drug abuse patient.[facility]In the event this information is protected by the Federal Confidentiality of Alcohol and Drug Abuse Patient Records regulations: The Federal rules restrict any use of the information to criminally investigate or prosecute any alcohol or drug abuse patient.[facility]In the event this information is protected by the Federal Confidentiality of Alcohol and Drug Abuse Patient Records regulations: The Federal rules restrict any use of the information to criminally investigate or prosecute any alcohol or drug abuse patient.[facility]In the event this information is protected by the Federal Confidentiality of Alcohol and Drug Abuse Patient Records regulations: The Federal rules restrict any use of the information to criminally investigate or prosecute any alcohol or drug abuse patient.[facility]In the event this information is protected by the Federal Confidentiality of Alcohol and Drug Abuse Patient Records regulations: The Federal rules restrict any use of the information to criminally investigate or prosecute any alcohol or drug abuse patient.[facility]In the event this information is protected by the Federal Confidentiality of Alcohol and Drug Abuse Patient Records regulations: The Federal rules restrict any use of the information to criminally investigate or prosecute any alcohol or drug abuse patient.[facility]In the event this information is protected by the Federal Confidentiality of Alcohol and Drug Abuse Patient Records regulations: The Federal rules restrict any use of the information to criminally investigate or prosecute any alcohol or drug abuse patient.[facility] HospitalIn the event this information is protected by the Federal Confidentiality of Alcohol and Drug Abuse Patient Records regulations: The Federal rules restrict any use of the information to criminally investigate or prosecute any alcohol or drug abuse patient.[facility]In the event this information is protected by the Federal Confidentiality of Alcohol and Drug Abuse Patient Records regulations: The Federal rules restrict any use of the information to criminally investigate or prosecute any alcohol or drug abuse patient.[facility]In the event this information is protected by the Federal Confidentiality of Alcohol and Drug Abuse Patient Records regulations: The Federal rules restrict any use of the information to criminally investigate or prosecute any alcohol or drug abuse patient.[facility] HospitalIn the event this information is protected by the Federal Confidentiality of Alcohol and Drug Abuse Patient Records regulations: The Federal rules restrict any use of the information to criminally investigate or prosecute any alcohol or drug abuse patient.[facility] HospitalIn the event this information is protected by the Federal Confidentiality of Alcohol and Drug Abuse Patient Records regulations: The Federal rules restrict any use of the information to criminally investigate or prosecute any alcohol or drug abuse patient.[facility] HospitalIn the event this information is protected by the Federal Confidentiality of Alcohol and Drug Abuse Patient Records regulations: The Federal rules restrict any use of the information to criminally investigate or prosecute any alcohol or drug abuse patient.[facility]In the event this information is protected by the Federal Confidentiality of Alcohol and Drug Abuse Patient Records regulations: The Federal rules restrict any use of the information to criminally investigate or prosecute any alcohol or drug abuse patient.[facility] HospitalIn the event this information is protected by the Federal Confidentiality of Alcohol and Drug Abuse Patient Records regulations: The Federal rules restrict any use of the information to criminally investigate or prosecute any alcohol or drug abuse patient.[facility] HospitalIn the event this information is protected by the Federal Confidentiality of Alcohol and Drug Abuse Patient Records regulations: The Federal rules restrict any use of the information to criminally investigate or prosecute any alcohol or drug abuse patient.[facility] HospitalIn the event this information is protected by the Federal Confidentiality of Alcohol and Drug Abuse Patient Records regulations: The Federal rules restrict any use of the information to criminally investigate or prosecute any alcohol or drug abuse patient.[facility] HospitalIn the event this information is protected by the Federal Confidentiality of Alcohol and Drug Abuse Patient Records regulations: The Federal rules restrict any use of the information to criminally investigate or prosecute any alcohol or drug abuse patient.[facility] HospitalIn the event this information is protected by the Federal Confidentiality of Alcohol and Drug Abuse Patient Records regulations: The Federal rules restrict any use of the information to criminally investigate or prosecute any alcohol or drug abuse patient.[facility] HospitalIn the event this information is protected by the Federal Confidentiality of Alcohol and Drug Abuse Patient Records regulations: The Federal rules restrict any use of the information to criminally investigate or prosecute any alcohol or drug abuse patient.[facility] HospitalIn the event this information is protected by the Federal Confidentiality of Alcohol and Drug Abuse Patient Records regulations: The Federal rules restrict any use of the information to criminally investigate or prosecute any alcohol or drug abuse patient.[facility] HospitalIn the event this information is protected by the Federal Confidentiality of Alcohol and Drug Abuse Patient Records regulations: The Federal rules restrict any use of the information to criminally investigate or prosecute any alcohol or drug abuse patient.[facility] HospitalIn the event this information is protected by the Federal Confidentiality of Alcohol and Drug Abuse Patient Records regulations: The Federal rules restrict any use of the information to criminally investigate or prosecute any alcohol or drug abuse patient.[facility] HospitalIn the event this information is protected by the Federal Confidentiality of Alcohol and Drug Abuse Patient Records regulations: The Federal rules restrict any use of the information to criminally investigate or prosecute any alcohol or drug abuse patient.[facility] HospitalIn the event this information is protected by the Federal Confidentiality of Alcohol and Drug Abuse Patient Records regulations: The Federal rules restrict any use of the information to criminally investigate or prosecute any alcohol or drug abuse patient.[facility] HospitalIn the event this information is protected by the Federal Confidentiality of Alcohol and Drug Abuse Patient Records regulations: The Federal rules restrict any use of the information to criminally investigate or prosecute any alcohol or drug abuse patient.[facility] HospitalIn the event this information is protected by the Federal Confidentiality of Alcohol and Drug Abuse Patient Records regulations: The Federal rules restrict any use of the information to criminally investigate or prosecute any alcohol or drug abuse patient.[facility] HospitalIn the event this information is protected by the Federal Confidentiality of Alcohol and Drug Abuse Patient Records regulations: The Federal rules restrict any use of the information to criminally investigate or prosecute any alcohol or drug abuse patient.[facility] HospitalIn the event this information is protected by the Federal Confidentiality of Alcohol and Drug Abuse Patient Records regulations: The Federal rules restrict any use of the information to criminally investigate or prosecute any alcohol or drug abuse patient.[facility] HospitalIn the event this information is protected by the Federal Confidentiality of Alcohol and Drug Abuse Patient Records regulations: The Federal rules restrict any use of the information to criminally investigate or prosecute any alcohol or drug abuse patient.[facility] HospitalIn the event this information is protected by the Federal Confidentiality of Alcohol and Drug Abuse Patient Records regulations: The Federal rules restrict any use of the information to criminally investigate or prosecute any alcohol or drug abuse patient.[facility] HospitalIn the event this information is protected by the Federal Confidentiality of Alcohol and Drug Abuse Patient Records regulations: The Federal rules restrict any use of the information to criminally investigate or prosecute any alcohol or drug abuse patient.[facility] Reason for Visit (unrecogniz ed section and content) Reason Comments Physical Therapy Specialty Diagnoses / Procedures Referred By Contac t Referred To Contact [facility] Diagnoses Arthritis of right sacroiliac joint Procedures CONSULT TO PHYSICAL THERAPY PHYSICAL THERAPY EVALUATION HIGH COMPLEX 45 MINS Mavis Hughes PA-C [address] [place] [address] [facility] [place] [address] [place] [address] Referral ID Status Reason Start Date Expiration Date Visits Requested Visits Authorized [id number] Authorized Auto-Generat ed Referral 11/20/2022 03/29/2023 99 99 Reason Comments PT Eval Reason Comments PT Progress Note Reason Comments Imm/Inj Reason Comments Orders Reason Comments Blood Pressure Check Reason Comments Yearly Exam Reason Onset Date Comments Refill Request 01/27/[address], OLIV[place], congestion x 2 days Reason Comments Cough Reason Comments Patient Question Reason Comments Referral Request Reason Comments Consult GERD/dyskinesia of e sophagus Specialty Diagnoses / Procedures Referred By Contac t Referred To Contact General Surgery Diagnoses Dyskinesia of esophagus Gastroesophageal reflux disease without esophagitis Hx of acute gastritis Procedures CONSULT TO GENERAL SURGERY OFFICE/OUTPATIENT NEW HIGH MDM 60-74 MINUTES Mavis Hughes PA-C [address] [place] [address] Referral ID Status Reason Start Date Expiration Date V isits Requested Visits Authorized [id number] Closed PCP Requested Referral 06/02/2022 06/02/2023 1 1 Reason Comments Follow Up EGD Reason Comments Sore Throat Right ear pain x 3 d ays Reason Comments Yearly Exam Ear Problem Right ear fluid Reason Comments New Pain Reason Comments Consult Reason Comments Radiology US Specialty Diagnoses / Procedures Referred By Contac t Referred To Contact [facility] Diagnoses Pulsatile abdomen Procedures US SCREENING FOR AAA (2017) US ABDOMINAL AORTA REAL TIME SCREEN STUDY AAA Mavis Hughes PA-C [address] [place] [address] [place] [address] Referral ID Status Reason Start Date Expiration Date V isits Requested Visits Authorized [id number] Closed Auto-Generate d Referral 11/14/2022 12/14/2023 1 1 Reason Comments New Patient Specialty Diagnoses / Procedures Referred By Esther baugh Referred To Contact Vascular Surgery Diagnoses Symptomatic varicose veins of both lower extremities Procedures CONSULT TO VASCULAR SURGERY OFFICE/OUTPATIENT NEW HIGH MDM 60-74 MINUTES Mavis Hughes PA-C [address] [place] [address] Referral ID Status Reason Start Date Expiration Date V isits Requested Visits Authorized [id number] Closed PCP Requested Referral 01/06/2023 01/06/2024 1 1 Reason Comments Established Patient Reason Comments Pain L side rib pain x1 w [facility] Reason Comments Wellness Reason Comments Derm Problem rash Reason Onset Date Comments Refill Request 12/14/2023 Reason Comments Appointment Patient Update Reason Comments Hypertension Blood pressure follo w up Reason Comments Well Woman Reason Comments Recheck BP check Reason Comments Blood Pressure Reason Onset Date Comments Refill Request 08/27/2024 Care Teams (unrecognized sec tion and content) Anode Adjuster Relationship Specialty Start Date End Date Mavis Hughes PA-C [address] [place] [address] PCP - General Family Practice 09/14/17 Anode Adjuster Relationship Specialty Start Date End Date Mavis Hughes PA-C [address] [place] [address] PCP - General Family Practice 09/14/17 Anode Adjuster Relationship Specialty Start Date End Date Mavis Hughes PA-C [address] [place] [address] PCP - General Family Practice 09/14/17 Anode Adjuster Relationship Specialty Start Date End Date Mavis Hughes PA-C [address] [place] [address] PCP - General Family Medicine 09/14/17 Anode Adjuster Relationship Specialty Start Date End Date Mavis Hughes PA-C [address] [place] [address] PCP - General Family Medicine 09/14/17 Anode Adjuster Relationship Specialty Start Date End Date Mavis Hughes PA-C [address] [place] [address] PCP - General Family Medicine 09/14/17 Anode Adjuster Relationship Specialty Start Date End Date Mavis Hughes PA-C [address] [place] [address] PCP - General Family Medicine 09/14/17 Anode Adjuster Relationship Specialty Start Date End Date Mavis Hughes PA-C [address] [place] [address] PCP - General Family Medicine 09/14/17 Anode Adjuster Relationship Specialty Start Date End Date Mavis Hughes PA-C [address] [place] [address] PCP - General Family Medicine 09/14/17 Anode Adjuster Relationship Specialty Start Date End Date Mavis Hughes PA-C [address] [place] [address] PCP - General Family Medicine 09/14/17 Anode Adjuster Relationship Specialty Start Date End Date Mavis Hughes PA-C [address] [place] [address] PCP - General Family Medicine 09/14/17 Anode Adjuster Relationship Specialty Start Date End Date Mavis Hughes PA-C [address] [place] [address] PCP - General Family Medicine 09/14/17 Anode Adjuster Relationship Specialty Start Date End Date Mavis Hughes PA-C [address] [place] [address] PCP - General Family Medicine 09/14/17 Anode Adjuster Relationship Specialty Start Date End Date Eugenio Peralta MD [address] [place] [address] PCP - General Family Medicine 08/20/22 Anode Adjuster Relationship Specialty Start Date End Date Eugenio Peralta MD [address] [place] [address] PCP - General Family Medicine 08/20/22 Anode Adjuster Relationship Specialty Start Date End Date Eugenio Peralta MD [address] [place] [address] PCP - General Family Medicine 08/20/22 Anode Adjuster Relationship Specialty Start Date End Date Eugenio Peralta MD [address] [place] [address] PCP - General Family Medicine 08/20/22 Anode Adjuster Relationship Specialty Start Date End Date Eugenio Peralta MD [address] [place] [address] PCP - General Family Medicine 08/20/22 Anode Adjuster Relationship Specialty Start Date End Date Eugenio Peralta MD [address] [place] [address] PCP - General Family Medicine 08/20/22 Anode Adjuster Relationship Specialty Start Date End Date Eugenio Peralta MD [address] [place] [address] PCP - General Family Medicine 08/20/22 Anode Adjuster Relationship Specialty Start Date End Date Eugenio Peralta MD [address] [place] [address] PCP - General Family Medicine 08/20/22 Anode Adjuster Relationship Specialty Start Date End Date Eugenio Peralta MD [address] [facility] [place] [address] PCP - General Family Medicine 08/20/22 Anode Adjuster Relationship Specialty Start Date End Date Eugenio Peralta MD [address] [facility] [address] PCP - General Family Medicine 08/20/22 Anode Adjuster Relationship Specialty Start Date End Date Eugenio Peralta MD [address] [place] [address] PCP - General Family Medicine 08/20/22 Anode Adjuster Relationship Specialty Start Date End Date Eugenio Peralta MD [address] [place] [address] PCP - General Family Medicine 08/20/22 Anode Adjuster Relationship Specialty Start Date End Date Eugenio Peralta MD [address] [place] [address] PCP - General Family Medicine 08/20/22 Anode Adjuster Relationship Specialty Start Date End Date Eugenio Peralta MD [address] [place] [address] PCP - General Family Medicine 08/20/22 Anode Adjuster Relationship Specialty Start Date End Date Eugenio Peralta MD [address] [facility] [address] PCP - General Family Medicine 08/20/22 Anode Adjuster Relationship Specialty Start Date End Date Eugenio Peralta MD [address] [facility] [address] PCP - General Family Medicine 08/20/22 Anode Adjuster Relationship Specialty Start Date End Date Eugenio Peralta MD [address] [place] [address] PCP - General Family Medicine 08/20/22 Anode Adjuster Relationship Specialty Start Date End Date Eugenio Peralta MD [address] [place] [address] PCP - General Family Medicine 08/20/22 Anode Adjuster Relationship Specialty Start Date End Date Eugenio Peralta MD [address] [place] [address] PCP - General Family Medicine 08/20/22 Anode Adjuster Relationship Specialty Start Date End Date Eugenio Peralta MD [address] [place] [address] PCP - General Family Medicine 08/20/22 Anode Adjuster Relationship Specialty Start Date End Date Eugenio Peralta MD [address] [place] [address] PCP - General Family Medicine 08/20/22 Anode Adjuster Relationship Specialty Start Date End Date Eugenio Peralta MD [address] [place] [address] PCP - General Family Medicine 08/20/22 Anode Adjuster Relationship Specialty Start Date End Date Eugenio Peralta MD [address] [place], [place] [address] PCP - General Family Medicine 08/20/22 Anode Adjuster Relationship Specialty Start Date End Date Eugenio Peralta MD [address] [place], [place] [address] PCP - General Family Medicine 08/20/22 Anode Adjuster Relationship Specialty Start Date End Date Eugenio Peralta MD [address] [place], [place] [address] PCP - General Family Medicine 08/20/22 Anode Adjuster Relationship Specialty Start Date End Date Mavis Hughes PA-C [address] [place] [address] PCP - General Family Medicine 09/14/17 08/19/22 Anode Adjuster Relationship Specialty Start Date End Date Eugenio Peralta MD [address] [place] [address] PCP - General Family Medicine 08/20/22 Anode Adjuster Relationship Specialty Start Date End Date Eugenio Peralta MD [address] [place] [address] PCP - General Family Medicine 08/20/22 Anode Adjuster Relationship Specialty Start Date End Date Eugenio Peralta MD [address] [place] [address] PCP - General Family Medicine 08/20/22 Anode Adjuster Relationship Specialty Start Date End Date Eugenio Peralta MD [address] [place] [address] PCP - General Family Medicine 08/20/22 Anode Adjuster Relationship Specialty Start Date End Date Eugenio Peralta MD [address] [place], [place] [address] PCP - General Family Medicine 08/20/22 Anode Adjuster Relationship Specialty Start Date End Date Eugenio Peralta MD [address] [place], [place] [id number] PCP - General Family Medicine 08/20/22 Lola Farris APRN.BODY AND FRAME TECHNICIAN [address] [place], [place] [address] [facility] 03/07/24 Natalia Monge APRN.BODY AND FRAME TECHNICIAN [address] [place], [place] [address] [facility] 03/07/24 Anode Adjuster Relationship Specialty Start Date End Date Eugenio Peralta MD [address] [place], [place] [address] PCP - General Family Medicine 08/20/22 Lola Farris APRN.BODY AND FRAME TECHNICIAN [address] [place] [address] [facility] 03/07/24 Natalia Monge APRN.BODY AND FRAME TECHNICIAN [address] [place], [place] [address] [facility] 03/07/24 Team Status: Active Member Role/Relationship Status Dates Dr. Eugenio Peralta MD Primary Care Provider Active Team Status: Active Member Role/Relationship Status Dates Dr. Eugenio Peralta MD Primary Care Provider Active Start: October 08, 2024 Dr. Brando Crooks DO Emergency Provider Active Start: October 08, 2024 Dr. Eve Rowley MD Other Provider Active Start : October 08, 2024 Dr. Dylan Soni DO Admit Provider Active Start: October 08, 2024 Dr. Dylan Soni DO Attending Provider Active Start: October 08, 2024 Goals (unrecognized section and content) Goals may be documented in a n alternate section FOR RECORDS PERTAINING TO PATIENTS WHO ARE [...] BE BASED ON THE PRIMARY CLINICAL RECORDS. [employer] [facility]. provides no warranty or guarantee of the accuracy or completeness of information in this document.
[2024-10-08] MEDS: CHLORHEXIDINE GLUC 2% CLOTH 1 EACH TOWELETTE TOPICAL (11:12)
[2024-10-08] MEDS: Chlorhexidine 15 ML PO (11:12)
--- NOTE | 2024-10-08 12:53 | PCM.PN.CARD ---
Subjective Subjective She is intubated and sedated. She is having fever peak at 103. Right femoral Access site with no hematoma Objective Data Vital Signs: Vital Signs Temp Pulse Resp BP Pulse Ox O2 Del Method FiO2 102.4 F H 94 16 74/59 L 94 Mechanical Ventilator 50 10/08/24 12:00 10/08/24 12:00 10/08/24 12:00 10/08/24 12:00 10/08/24 12:00 10/08/24 12:00 10/08/24 12:00 Oxygen Delivery Method Mechanical Ventilator Weight: 197 lb 1.492 oz Body Mass Index (BMI) 31.8 Intake & Output: Intake and Output for Last 24 Hours 10/06/24 10/07/24 10/08/24 23:59 23:59 23:59 Intake Total 1085.96 / 1085.96 Output Total 1500 / 1500 Balance -414.04 / -414.04 Lab / Micro Data 10/08/24 03:58 10/08/24 03:58 Labs: Laboratory Results - last 24 hr 10/08/24 03:58: WBC 6.9, RBC 4.41, Hgb 12.9, Hct 40.0, MCV 90.7, MCH 29.3, MCHC 32.3, RDW Std Deviation 45.1 H, RDW Coeff of Linda 13.7, Plt Count 165, MPV 11.3, Immature Gran % (Auto) 0.300, Neut % (Auto) 57.2, Lymph % (Auto) 34.9, [place] % (Auto) 5.9, Eos % (Auto) 1.3, Baso % (Auto) 0.4, Absolute Neuts (auto) 4.0, Absolute Lymphs (auto) 2.41, Nucleated RBC % 0, PT 13.2, INR 1.0, APTT 27.4, Sodium 141, Potassium 3.8, Chloride 105, Carbon Dioxide 22.9, Anion Gap 13, BUN 13, Creatinine 1.20, Estim Creat Clear Calc 50.48, Est GFR (MDRD) Non-Af 49 L, BUN/Creatinine Ratio 10.9, Glucose 154 H, Hemoglobin A1c 5.6, Calcium 9.2, Total Creatine Kinase 81, Troponin T High Sens 48 H, Triglycerides 234 H, TSH 2.500 ABG Data ABG results: ABG 10/08/24 10/08/24 05:51 05:56 Specimen Type ROSA ISELA ART Sample Site Not entered Not entered pH 7.35 Bicarbonate Actual 20.4 L Total CO2 22 Base Excess -5 L O2 Saturation 98 ABG pCO2 36.6 ABG pO2 105 H VBG pH 7.33 VBG pO2 34 VBG HCO3 24 VBG Total CO2 25 VBG O2 Sat (Calc) 61 VBG Base Excess -2 L POC Mix VBG pCO2 Pt Tmp 45.9 O2 Delivery Device Not entered Not entered Vent Mode Not entered Cardiology Labs/Tests 10/08/24 03:58: WBC 6.9, RBC 4.41, Hgb 12.9, Hct 40.0, MCV 90.7, MCH 29.3, MCHC 32.3, Plt Count 165, MPV 11.3, Immature Gran % (Auto) 0.300, Neut % (Auto) 57.2, Lymph % (Auto) 34.9, [place] % (Auto) 5.9, Eos % (Auto) 1.3, Baso % (Auto) 0.4, Absolute Neuts (auto) 4.0, Nucleated RBC % 0, PT 13.2, INR 1.0, APTT 27.4, Sodium 141, Potassium 3.8, Chloride 105, Carbon Dioxide 22.9, Anion Gap 13, BUN 13, Creatinine 1.20, Est GFR (MDRD) Non-Af 49 L, BUN/Creatinine Ratio 10.9, Glucose 154 H, Hemoglobin A1c 5.6, Calcium 9.2, Triglycerides 234 H 10/08/24 05:51: VBG pH 7.33, VBG pO2 34, VBG HCO3 24, VBG O2 Sat (Calc) 61, VBG Base Excess -2 L 10/08/24 05:56: pH 7.35, Bicarbonate Actual 20.4 L, Base Excess -5 L, O2 Saturation 98, ABG pCO2 36.6, ABG pO2 105 H Rhythm: EKG: ECHO: Stress Test: Cardiac Cath: PCI: CT Surgery: Holter monitor: EPS: PPM: CXR: Chest CT Scan: Radiography Diagnostic Testing: Radiology Impression Echocardiogram 10/08/24 06:54 Interpretation Summary The LV ejection fraction is 20 %. Severe segmental systolic dysfunction (see wall motion). Stage 3 diastolic dysfunction. No collapse of the inferior vena cava. Ordering Physician: Dylan Soni Performed By: Mami Harris, MATILDA Chest X-Ray 10/08/24 07:05 IMPRESSION: 1. Support devices as described. 2. Fluffy bilateral airspace opacities, compatible with pneumonitis/pneumonia. Reading Location: [facility] KUB X-Ray 10/08/24 07:05 IMPRESSION: Gastric tube placement as described. Reading Location: [facility] Physical Exam Const Constitutional Narrative: Sedated and intubated Chest Chest Narrative: Decreased breath sounds bilateral Resp Auscultation: breath sounds absent Cardio no murmurs Cardio Narrative: Sinus tachycardia Jugular Venous Distention: JVD to the level of the angle of the jaw Extremity normal to inspection General Extremity: edema Assessment & Plan Assessment/Plan (1) ST elevation (STEMI) myocardial infarction: QUALIFIERS: Involved coronary artery: right coronary artery Qualified Code(s): I21.11 - ST elevation (STEMI) myocardial infarction involving right coronary artery PLAN: Status post IVUS guided PCI to RCA with 2 overlapping drug-eluting stent. Continue with aspirin 81 mg daily Continue with atorvastatin 80 mg daily Continue with Brilinta 90 mg twice daily (2) HFrEF (heart failure with reduced ejection fraction): PLAN: Ischemic cardiomyopathy with a EF of 25% Introduce GDMT once her blood pressure improves. Continue with IV Lasix 40 mg daily. (3) Shock: PLAN: Mixed septic and cardiogenic. Obtain blood cultures. Start empirical antibiotics with Vancomycin and Zosyn. Start Levophed Obtain an A-line, preferably switch femoral venous line to IJ. Recommend transferring care to higher acuity facility
[2024-10-08] MEDS: Norepinephrine 8 MG in 0.9% Normal Saline (250mL Bag) 242 ML 9.4 MG CONT INF (13:14)
[2024-10-08] MEDS: Acetaminophen 650 MG/20 ML UDC GT (13:14)
[2024-10-08] MEDS: Vancomycin HCl 1,250 MG in 0.9% Normal Saline (250mL Bag) 250 ML 167 MG IV (14:04)
[2024-10-08] MEDS: Heparin Injection (Vial) 5,000 UNIT/ML VIAL 5000 UNIT SC (14:06)
[2024-10-08 14:09] LABS: SITE Not entered; VBG BASE EXCESS -3 mmol/L (-1.0-3.5); VBG PO2 38 mmHg (25-40); VBG SO2 70 % (50-70); VBG TCO2 24 mmol/L (23-33)
[2024-10-08] MEDS: Meropenem 2 GM in 0.9% Normal Saline (100mL Bag) 100 ML IV (16:02)
[2024-10-08] MEDS: fentaNYL drip 100 ML 10 MCG CONT INF (16:07)
--- NOTE | 2024-10-08 16:46 | PCM.RX.CS ---
Consult Antibiotic Management Pharmacy has been consulted to manage selected antibiotic: Vancomycin Type of Intervention Type of Consult: New start Suspected Infection Suspected Infection: Pneumonia Labs Labs: Sodium 141 mmol/L (133-145) 10/08/24 03:58 Potassium 3.8 mmol/L (3.3-5.1) 10/08/24 03:58 Chloride 105 mmol/L (98-108) 10/08/24 03:58 Carbon Dioxide 22.9 mmol/L (21.0-32.0) 10/08/24 03:58 Anion Gap 13 (5-15) 10/08/24 03:58 BUN 13 mg/dL (4-19) 10/08/24 03:58 Creatinine 1.20 mg/dL (0.70-1.20) 10/08/24 03:58 Est GFR (MDRD) Non-Af 49 (>60) L 10/08/24 03:58 BUN/Creatinine Ratio 10.9 RATIO (10-20) 10/08/24 03:58 Glucose 154 mg/dL (70-99) H 10/08/24 03:58 Dosing Weight Weight used for dosin.4 kg Goal Trough Goal Trough: 15-20 mcg/mL Pharmacy Plan for Drug Dosing Pharmacy Plan for Drug Dosing: NEW START IV VANCOMYCIN Consulting Physician: Dr. Gonzalez Indication: Hypoxic Pulmonary Failure Goal Trough: 15-20 SrCr: 1.2 mg/dL CrCl: 50.48 ml/min Comments: Due to borderline renal function, and the start of Meropenem as well, Elected to start on the lower dose. Vancomycin Dose: 1250 mg q24 Pending Level: 10/10/1329Pharmacy Service will continue to monitor and adjust dosing as required. Follow-Up Labs Follow-Up Labs: Trough: Vancomycin Date/Time Labs Ordered Labs to be done on [date and time ordered]: 10/10/2024 @3420
--- NOTE | 2024-10-08 19:10 | DS.PCM_ITS ---
Providers Date of Admission: 10/08/24 Date of Discharge: 10/08/24 Primary Care Physician: Dr. Eugenio James MD Reason For Visit: STEMI Diagnosis Discharge Diagnosis (1) ST elevation (STEMI) myocardial infarction: Status: Acute Code(s): I21.3 - ST elevation (STEMI) myocardial infarction of unspecified site Qualifiers: Involved coronary artery: right coronary artery Qualified Code(s): I 21.11 - ST elevation (STEMI) myocardial infarction involving right coronary artery (2) HFrEF (heart failure with reduced ejection fraction): Status: Acute Code(s): I50.20 - Unspecified systolic (congestive) heart failure (3) Shock: Status: Acute Code(s): R57.9 - Shock, unspecified (4) Chest pain: Status: Acute Code(s): R07.9 - Chest pain, unspecified Plan 1. STEMI due to occlusive coronary artery disease in the right coronary artery #2 acute heart failure with reduced ejection fraction #3 ischemic cardiomyopathy #4 septic and cardiogenic shock Medications at Discharge Home Medications pantoprazole 40 mg tablet,delayed release 40 mg PO DAILY 02/26/19 calcium carbonate 500 mg PO QDAY PRN dyspepsia 01/27/24 cholecalciferol (vitamin D3) 10 mcg (400 unit) capsule 10 mcg PO QDAY PRN supplement 01/27/24 lisinopril 10 mg tablet 10 mg PO QDAY 04/28/24 Hospital Course Operations None Procedures Cardiac catheterization, Intubation and PICC line placement Summary of Care Provided Minutes Spent on Discharge: 31 Hospital Course: This 68-year-old white female presented to the emergency room at [facility] with the chief complaint of chest pain, STEMI alert was called on arrival with the EKG showing ST elevations in the inferior leads. Patient had been complaining of chest pain for the last 2 days that she had attributed to acid reflux disease. Patient was taken emergently to the [facility], shortly after arrival to the [facility] the patient went into pulseless V. tach and was shocked and cardioverted to sinus tachycardia, her pulse ox was noted to be low and decision was made to intubate the patient, patient had significant secretions that made intubation difficult. Patient was placed on the ventilator and a cardiac catheterization was performed which showed 100% blockage in the mid RCA, a drug-eluting stent was placed in the right coronary artery with good result. There was no significant coronary disease in the remaining coronary arteries. Patient was transferred to ICU, later that same day she developed a high temperature and was placed on IV antibiotics with concern for sepsis. Echocardiogram was obtained which showed an ejection fraction of 20%, cardiology felt it was in the patient's best interest to transfer her to a tertiary facility where a mechanical circulatory support device could be used if necessary. [facility] agreed to accept the patient. On 10/08/2024, patient was seen and examined: On examination she was sedated and on the ventilator Vital signs as documented. Skin warm and dry and without overt rashes. Neck without JVD, thyroid appears normal, trachea is midline Lungs clear, normal air movement was noted. Heart exam notable for regular rhythm, normal sounds and absence of murmurs, rubs or gallops. Abdomen unremarkable and without evidence of organomegaly, masses, or abdominal aortic enlargement, bowel sounds are present in all 4 quadrants. Extremities nonedematous, no cyanosis was noted, no clubbing was noted. Neuro: Cranial nerves II through XII are grossly intact, patient is sedated and on the ventilator psych: Patient is sedated and on the ventilator Patient was transferred to [facility] in stable condition on 10/08/2024 Weight / BMI Weight Weight: 89.4 kg Body Mass Index (BMI) 31.8 ABG / Lab / Microbiology Data 10/08/24 03:58 10/08/24 03:58 Laboratory: Laboratory Results - last 24 hr 10/08/24 03:58: WBC 6.9, RBC 4.41, Hgb 12.9, Hct 40.0, MCV 90.7, MCH 29.3, MCHC 32.3, RDW Std Deviation 45.1 H, RDW Coeff of Linda 13.7, Plt Count 165, MPV 11.3, Immature Gran % (Auto) 0.300, Neut % (Auto) 57.2, Lymph % (Auto) 34.9, J[place] % (Auto) 5.9, Eos % (Auto) 1.3, Baso % (Auto) 0.4, Absolute Neuts (auto) 4.0, Absolute Lymphs (auto) 2.41, Nucleated RBC % 0, PT 13.2, INR 1.0, APTT 27.4, Sodium 141, Potassium 3.8, Chloride 105, Carbon Dioxide 22.9, Anion Gap 13, BUN 13, Creatinine 1.20, Estim Creat Clear Calc 50.48, Est GFR (MDRD) Non-Af 49 L, BUN/Creatinine Ratio 10.9, Glucose 154 H, Hemoglobin A1c 5.6, Calcium 9.2, Total Creatine Kinase 81, Troponin T High Sens 48 H, Triglycerides 234 H, TSH 2.500 Microbiology: Microbiology 10/08/24 13:20 Blood Culture (Wb) - Anticubital Left Blood Culture - Preliminary No growth in 48 hours. 10/08/24 06:58 Sputum, Induced/Lukens Gram Stain - Final 10/08/24 06:58 Sputum, Induced/Lukens Respiratory Culture - Final Mixed normal respiratory jung. No Streptococcus pneumoniae, beta-hemolytic Streptococcus or Staphylococcus aureus isolated. ABG: ABG 10/08/24 10/08/24 10/08/24 05:51 05:56 14:03 Specimen Type ROSA ISELA ART ROSA ISELA Sample Site Not entered Not entered Not entered pH 7.35 Bicarbonate Actual 20.4 L Total CO2 22 Base Excess -5 L O2 Saturation 98 ABG pCO2 36.6 ABG pO2 105 H VBG pH 7.33 7.36 VBG pO2 34 38 VBG HCO3 24 22 VBG Total CO2 25 24 VBG O2 Sat (Calc) 61 70 VBG Base Excess -2 L -3 L POC Mix VBG pCO2 Pt Tmp 45.9 39.6 L O2 Delivery Device Not entered Not entered Not entered Vent Mode Not entered Radiography Diagnostic Testing: Radiology Impression Echocardiogram 10/08/24 06:54 Interpretation Summary The LV ejection fraction is 20 %. Severe segmental systolic dysfunction (see wall motion). Stage 3 diastolic dysfunction. No collapse of the inferior vena cava. Ordering Physician: Dylan Soni Performed By: Mami Harris RDCS Chest X-Ray 10/08/24 07:05 IMPRESSION: 1. Support devices as described. 2. Fluffy bilateral airspace opacities, compatible with pneumonitis/pneumonia. Reading Location: [id number] X-Ray 10/08/24 07:05 IMPRESSION: Gastric tube placement as described. Reading Location: [id number] D/C Instructions DC O2, CPAP, BIPAP Needs Home O2 Discharge instructions: Yes Type of respiratory needs?: Oxygen Oxygen frequency: Other Other oxygen liters per minute: 100% Other oxygen frequency: Patient transferred to tertiary facility on ventilator DC home with Oxygen: Yes Home O2 MD Review: I have reviewed the oxygen testing, and the patient qualifies for home oxygen equipment and portability. The patient is mobile in the home and the community. Meaningful Use Info Meaningful Use Meaningful Use Diagnoses (Choose all that apply): AMI AMI/Post PCI/Angioplasty Aspirin given w/in 24hrs of arrival?: Yes ASA at discharge?: Yes Antiplatelet Therapy at Discharge:: Yes Statins at discharge?: Yes Dale/ARB at discharge?: Yes Beta Brissa at discharge?: Yes Done w/ Acute MA measure.: Yes Documented LVEF (%): 20 Discharge Plan Admission Admit Date/Time: 10/08/24 06:49 Attending Provider: Christopher Gonzalez Primary Care Provider: Eugenio James Consulting Providers: Eve Rowley; Dylan Soni Discharge Orders/Prescriptions Prescriptions: No Action calcium carbonate 500 mg calcium (1,250 mg) tablet 500 mg PO QDAY PRN (Reason: dyspepsia) cholecalciferol (vitamin D3) 10 mcg (400 unit) capsule 10 mcg PO QDAY PRN (Reason: supplement) lisinopril 10 mg tablet 10 mg PO QDAY pantoprazole 40 MG tablet,delayed release (DR/EC) 40 mg PO DAILY Referrals / Follow Up: Eugenio James MD [Primary Care Provider] - Disposition Disposition (needs filled in before D/C Order can be placed): Acute Care Hospital Charges/Coding Visit Charges Inpatient E&M: 42274 Disch Hosp >30min
[2024-10-09 10:42] LABS: ACT Activated Clotting Time 395 sec (74-137)
--- NOTE | 2024-10-10 10:00 | ECQM.STEMI ---
STEMI STEMI ED Door Time / Other REG STEMI EKG Time (1) ST elevation myocardial infarction (STEMI) of inferior wall: Acute 10/08/24 03:56 Balloon/Aspiration Date-Time Date of Balloon/Aspiration:: 10/08/24 Time of Balloon/Aspiration:: 04:54
--- NOTE | 2024-10-10 14:09 | CRPHASE1_ITS ---
Patient Communication Patient Information Former Patient:: Phase I (Unable to Educate due to arrest, intubation, and transfer to other facility.) PHII Cardiac Rehab Discussed with Patient:: No (Unable to Educate due to arrest, intubation, and transfer to other facility) Guide to Cardiac Rehab Given to Patient:: No (Unable to Educate due to arrest, intubation, and transfer to other facility) Cardiac Rehab Facility Choice List Given to Patient:: No (Unable to Educate due to arrest, intubation, and transfer to other facility) Communication to Cardiac Rehab Choice Program [facility] CR PHII:: Communication Given to CR (Unable to Educate due to arrest, intubation, and transfer to other facility.) Webbing Inspector:: Eve Rowley Refer Phase II Cardiac Rehab:: No (Unable to Educate due to arrest, intubation, and transfer to other facility) Cardiac Rehabilitation Info Program Information Cardiac Rehabilitation Program Information: Cardiac Rehab The cardiac rehab team at [facility] consists of highly skilled exercise physiologists, nurses, respiratory therapists and physicians working together with you. Our purpose is to help you have a full recovery and achieve the goals you set for yourself. Over the years many of our patients have returned to activities they assumed they would never do again! We can help restore your confidence and motivation to make lifestyle changes that can have a significant impact on your health and quality of life! We can help answer questions and concerns you may have about exercise, lifestyle, medications, diet, stress and anxiety which are common following a hospitalization. WE monitor ECG and vital signs during exercise and discuss your progress with you and report to your physician(s). Cardiac Rehab is proven to help reduce readmissions, improve functional capacity and lower recurrence of problems with your heart. Our Cardiac Rehab program is Certified by the [place] [employer]monary [employer] (AACVPR) and Accredited by the [place] [employer] through our [facility]. You can contact us at . We invite you to call us with your questions or to get started in our program. If you have other questions or concerns be sure to ask your physician/provider during your follow-up visit. WE look forward to seeing you!
--- NOTE | 2024-10-10 14:11 | CRPH1.INSTRU ---
General Education Discussed with Patient CAD and cardiac anatomy and function:: Not instructed (Unable to Educate due to arrest, intubation, and transfer to other facility.)
== END 2024-10-08 17:24 | disposition short-term general hospital (02) | DRG 321 ==
LOC: ED 04:17 → ICU 06:04
PROVIDERS: Admitting Provider Hospitalist; Emergency Provider Emergency Medicine; PCP Family Medicine; Visit Provider Internal Medicine
DX: I21.11 ST elevation (STEMI) myocardial infarction involving right coronary artery (principal); J96.01 Acute respiratory failure with hypoxia; R57.0 Cardiogenic shock; I50.21 Acute systolic (congestive) heart failure; E66.811 Obesity, class 1; I21.19 ST elevation (STEMI) myocardial infarction involving other coronary artery of inferior wall; K21.9 Gastro-esophageal reflux disease without esophagitis; I25.5 Ischemic cardiomyopathy; Z68.31 Body mass index [BMI] 31.0-31.9, adult; Z82.49 Family history of ischemic heart disease and other diseases of the circulatory system; Z79.899 Other long term (current) drug therapy
CPT/HCPCS: 31500; 31720; 36569; 71045; 74018; 80048; 82550; 82803; 83036; 84443; 84478; 84484; 85025; 85347; 85610; 85730; 87040; 87070; 87205; 92941; 92950; 92978; 93005; 93306; 93460; 94002; 99152; 99153; 99285; C1894; J2185; Q9957; Q9967; A4216; C1725; C1751; C1753; C1760; C1769; C1874; C1887; C8929; C9606; J1938

== ENCOUNTER → 2024-11-01 | Outpatient (CLI) | payer MEDICARE, SELFPAY ==
--- NOTE | 2024-11-01 12:49 | PCM.CR.HP2 ---
CR - History & Physical General Arrival date:: 11/01/24 Arrival time:: 12:50 Date of Referral:: 10/20/24 Date of CR Evaluation:: 11/01/24 Referring Physician: Dr. Musa Primary Diagnosis: PCI w/stenting, [place] STEMI<12 months History of Present Cardiac Event Onset Date Acute Myocardial Infarction within 12 months:: Yes PTCA or coronary stenting:: Yes (onset 10/08/2024) Vessel: RCA Medications Ambulatory Orders ?Medication ?Instructions ?Recorded pantoprazole 40 mg tablet,delayed 40 mg PO DAILY 02/26/19 release calcium carbonate 500 mg PO QDAY PRN dyspepsia 01/27/24 cholecalciferol (vitamin D3) 10 10 mcg PO QDAY PRN supplement 01/27/24 mcg (400 unit) capsule aspirin 81 mg tablet,delayed 81 mg PO QDAY 10/20/24 release (Adult Aspirin Regimen) losartan 25 mg tablet 25 mg PO QDAY #90 tabs 10/20/24 metoprolol succinate 50 mg 50 mg PO QDAY #90 tabs 10/20/24 tablet,extended release 24 hr rosuvastatin 40 mg tablet 40 mg PO QDAY #90 tabs 10/20/24 ticagrelor 90 mg tablet 90 mg PO BID #180 tabs 10/20/24 Allergies Allergies No Known Allergies Allergy (Verified 10/20/24 09:27) Sleep Disorder Evaluation Hx of Sleep Apnea: No Do you snore loudly (louder than talking or can be heard through closed doors)?: Yes Do you often feel tired/ fatigued/ sleepy during daytime?: No Has anyone observed you stop breathing during sleep?: No History of Hypertension (for STOP score): No STOP Results: Negative Advanced Directives Advanced Directives Do you have a Healthcare 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 of 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 Sciences 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?: Yes Living Will: Yes Advance Directives Information Provided: No Advance Directives on File: No DNR Order?:: No Past Medical History Covid-19 Screening Physicial Symptoms Other Clinical Concerns Exposure Risk Pertinent Comorbidities 65 years or older:: Yes Has a serious heart condition:: Yes Past Medical Illness Past Medical History (Updated 10/20/24 @ 09:50 by Tova Latif PA, PA) ST elevation (STEMI) myocardial infarction I21.3 Cardiomyopathy, ischemic I25.5 Shock R57.9 HFrEF (heart failure with reduced ejection fraction) I50.20 Cardiac arrest I46.9 Chest pain R07.9 Acute hypoxic respiratory failure J96.01 Flash pulmonary edema J81.0 ST elevation myocardial infarction (STEMI) of inferior wall (10/08/24) I21.19 Past Surgical History Past Surgical History Stented coronary artery (10/08/24) Z95.5 [place] 3.8 X 18 mm JACINTA overlapping with [place] 3.5 X 22 mm JACINTA to mid RCA using IVUS 10/08/2024 H/O section Z98.891 Hx of tubal ligation Z98.51 Surgical History: no surgical history Family History Summary Family History Other CAD (coronary artery disease) COPD (chronic obstructive pulmonary disease) Cancer Diabetes Heart disease Hypertension Myocardial infarction Social History Smoking History Smoking Status: Never smoker Alcohol Use Alcohol Usage: No Substance Abuse Hx Substance Use: No Occupation Occupation (List type of work in comments):: Retired Social Environment Status Marital Status: Current Living Arrangements Living Environment:: Spouse Children How many children do you have?: 1 Do any of your children live nearby?: Yes Safety Do you feel safe in your surroundings?: Yes Assistance Do you need any assistance at home?: no Review of Systems Review of Systems Hints Review of Present Symptoms: Reports Shortness of Breath with Exertion, PVD, Operative Discomfort, Dizziness/Lightheadedness, Fatigue, Heart Arrhythmia/Irregularities, Appetite - Normal and Sleep - Normal; Denies Shortness of Breath at Rest, Angina, Wound Healing, Appetite - Special Diet or Sexual Changes Pain Is Patient Pain Free?: Yes Risk Factor Assessment Chief Complaint Chief Complaint: PCI w/stenting, MO STEMI<12 months Vital Signs Pulse Ox: 98 Pulse Pulse Rate: 60 Hypertension Blood Pressure Sitting - Right Arm: 107/72 Stress Stress: Home/Family Obesity Height: 5 ft 6 in Weight:: 189 lb Weight in Pounds: 189.0 lbs Body Mass Index (BMI): 30.4 Nutritional Referral for Obesity: Yes Physical Inactivity Physical Inactivity: Reg Exercise 30 min/day Risk Stratification Risk Guidelines: Lowest Risk: Risk Factor for Smoking, Moderate Risk: Risk Factor for Dyslipidemia, Risk Factor for Diabetes, Risk Factor for Hypertension, Risk Factor for Sedentary Lifestyle and Risk Factor for Depression and Highest Risk: Risk Factor for Obesity For Smoking Smoking Risk Guidelines For Dyslipidemia Dyslipidemia Risk Guidelines For Diabetes Mellitus Diabetes Risk Guidelines For Obesity/Overweight Obesity/Overweight Risk Guidelines For Hypertension Hypertension Risk Guidelines For Sedentary Lifestyle Sedentary Lifestyle Risk Guidelines For Depression Depression Risk Guidelines Family History Family History Other CAD (coronary artery disease) COPD (chronic obstructive pulmonary disease) Cancer Diabetes Heart disease Hypertension Myocardial infarction Motivation Motivation to Participate On a scale of 1 to 10, how prepared are you to commit to attending program?: 8 What do you see as barriers to successfully being able to complete the program?: nothing What do you see as the benefits of succesfully completing the program? In other words, what do you hope to get out of participating in the program?: Improve muscle strength and endurance Are there issues you are dealing with that will interfere with completing the program?: no Do you have a spouse or signficant other, family or friends who will help support you to complete the program?: yes
[2024-11-01 13:05] VITALS: BP 107/72; PULSE 60; O2SAT 98; BMI 30.4
--- NOTE | 2024-11-01 13:30 | CR.ITP_ITS ---
Diagnosis General Information Admitting Diagnosis: PCI w/stenting, MS STEMI<12 months Personal Learning Style:: Audio/Visual Barriers to Learning: No Barriers Stage of change r/t lifestyle modifications:: Contemplation Gave educational material for:: Treating Heart Disease, How The Heart Works, What it means to have Heart Disease, How Coronary Artery Disease is Diagnosed, Heart Procedures, What Heart Medications Do, Risk Factors & Modifications, Living an Active Life, Nutrition, Emotions & Heart Disease, Stress Management & Relaxation and Sleep Disorders & Heart Disease Education/Goals Cardiac Rehabilitation Goals Personal Goals: Initial Assessment: Improve management of stress and emotions, Improve energy level, Participate in home exercise program, Improve knowledge of cardiac disease, Improve muscle strength and endurance, Improve diet and eating habits (eat healthier) and Control risk factors (learn risk factor modification) Scale for measuring improvement of personal goals Diagnosis & Disease Process Outcomes/Goals: Pt IDs own risk factors & lifestyle modifications by Session 10, Verbalizes symptoms of angina & response by session 3., Pt independently manages and Other Additional Outcomes/Goals: Plan/Interventions: Assist Pt to ID & engage in lifestyle modification to reduce CVD risk, Instruct on individual risk factors, Review symptoms of angina & emergency actions, Review secondary diagnosis & identify educational needs. and Other see comment 30 day Reassessments:: Not Met 30 day Reassessments:: Not Met 30 day Reassessments:: Not Met 30 day Reassessments:: Not Met Final Reassessments:: Not Met Safety Referral to Physical Therapy: No Referral to [facility] Case Management: No Fall Risk Assessed:: Yes Assistive Devices:: None Exercise - Initial Assessment Visit Date of Eval: 11/01/24 (initial eval ) Mets: Pre-: >3 METS for 30 minutes by discharge, >5 METS for 30 minutes by discharge, >7 METS for 30 minutes by discharge and Unable to meet goal due to: (see comment below) Physician Prescribed Exercise Modalities: Treadmill, Rower, Schwinn Airdyne AD-7, SciFit Stepper, SciFit Pro- II Ergometer and SciFit Lateral [place] Frequency: 3x/week for 12 weeks [36 sessions] Intensity: 60-80% of age predicted maximum heart rate reserve Duration: 30 - 45 minutes Current METSs:: 3 Target Heart Rate:: 98-113 Resting Blood Pressure: 107/72 EKG Type: Sr w/ marked sinus arrhythmia Outcomes & Goals Goals:: Verbalizes understanding of THR, RPE & goal METS by session 6, Documents in home exercise log/reports 30 min aerobic 5 day/wk by DC, Demonstrates accurate pulse taking by DC and Other additional outcome/goals: see below Intervention & Plan Exercise Program Goals: Instruct on personal THR & RPE, Instruct on MET level & personal MET goal, Show patient to take own pulse /validate performance until accurate, Instruct on home exercise and Other additional plan/int Physical Activity Home Exercise Physical Activity - Home Exercise: Safe Exercise, Warm-up, Self-monitoring, Cool-Down, Home Exercise > 30 min Daily and Sitting Time <3 hours/daily Outcomes & Goals Outcomes/Goals: Demonstrates correct Warm-up/exercise Cool-Down (S3) if = 2.5 METs, Verbalizes symptoms of exercise intolerance by Session 3 (S3), Demonstrate safe equipment use (S3) & follows exercise prescrition (6) and Other: See below Intervention & Plan Plan/Intervention: Instruct warm-up & cool-down if exercising at > 2 METs, Instruct on symptoms of exercise intolerance & actions to take, Instruct & monitor on saf, Assess intial functional capacity & safety risk and Other See below Nutrition - Initial Assessment Program Goals Nutrition Program Goals Patient has diagnosis of Hyperlipidemia (ICD E78)?: No Visit Date of Eval: 11/01/24 (initial eval ) Cholesterol/Lipids (Other Core Measures) Determine presence & major risk factors that modify LDL goal: Hypertension or hypertensive medication, Low HDL cholesterol <40 mg/dL*, Family history of premature CHD in Male < 55 years: female <65 yearsFa and Age men > 45 years; women >/= 55 years Outcomes/Goals: Pt IDs own risk factors & lifestyle modifications by Session 10, Verbalizes symptoms of angina & response by session 3., Pt independently manages and Other Additional Outcomes/Goals: Intervention/Plan: Advocate for lipid panel cholesterol medication if applicable, Instruct on personal lipid levels & lipid goals/NCEP guidelines, Instruct on cholesterol and Other additional plan/int Referral to dietitian:: Yes Diabetes (Other Core Measures) Diabetes Type: Not Applicable Weight Mgt (Other Care) Height: 5 ft 6 in Weight:: 189 lb BMI: 30.4 Diagnosis Overweight/Obesity BMI> 30% ICD-10 E66: Yes Diagnosis High BMI/Morbid Obesity BMI> 35% ICD-10 Z68: No Outcomes/Goals: Pt sets, maintains & shows weight loss goal & trend during rehab and Other additional outcomes/goals Intervention/Plan: Instruct on ideal BMI & set weight loss goal w/patient, Assist pt to ID & incorporate diet changes for weight loss by S9, Refer to Structured Weight Loss program as appropriate, Encourage goal of using 250- 300dcal per session for weight loss and Other additional plan/interventions Healthy Eating Habits Will attend diet classes:: Yes Outcomes/Goals:: Consume diet rich in vegs,fruits,whole grain/high fiber,fish,lean meat, Limit sat/trans fats,cholesterol & added salts & sugars and Other additional outcome/goals: Intervention/Plan:: Assess current eating habits and Other Additional plan/interventions Education Gave educational materials for:: Signs & symptoms of hypoglycemia, Signs & symptoms of hyperglycemia, Relate diabetes to coronary artery disease and Healthy eating Core - Initial Assessment Visit Date of Eval: 11/01/24 (initial eval ) Medication Compliance Preventative Medication(s):: Aspirin, Ticagrelor/P2Y12 inhibitor, Statin/lipid, Beta usman and ARB (Angiotensi Rcap) H/O mental health issues: depression, anxiety, or addiction?: No Doesn?t believe in the benefits of treatment?: No Believes medications are unnecessary or harmful?: No Has a concern about medication side effects?: No Expresses concern over the cost of medications?: No Outcomes/Goals: Verbalizes medications,desired effect & common side effects @ DC, Pt self-reports following medication regimen, Keeps card in wallet w/medications listed by DC and Other additional outcome/goals: Interventions/plans: Instruct on medication effects & side effects, Review medication list w/patient every two weeks, Instruct importance of taking meds as ordered & assist problem solving and Other additional Tobacco Use Tobacco Use: Non-smoker Hypertension Resting Blood Pressure:: 107/72 [place] [employer] Hypertension Guidelines Outcomes/Goals: Able to verbalize/achieve optimal blood pressure <130/80, Incorporates diet changes & exercise for blood pressure control by DC and Other additional outcomes/goals Interventions/plan: Instruct on optimal blood pressure, hypertension & medications, Instruct on effects of sodium, alcohol, stress, exercise &hypertension and Other additional plan/interventions Tobacco Cessation Referral Smoking Cessation Referral:: No Individual Education/Counseling:: No Education Schedule Given:: Yes Psychosocial - Initial Assess VIsit Date of Eval: 11/01/24 (initial eval ) History of previous Mental disease:: No (Pt has had some stress from her recent illness but is doing fine.) Target Goals Target Goals Psychosocial Test Tool Used:: PHQ-9 Questionnaire phq-9 Severity See PHQ-9 Score: 4 Referral to Behavioral Health PS - Interventions: Yes: Attend Stress Management Classes Outcomes/Goals: See list Psychosocial Outcomes/Goals:: ID's personal stressors & 2 strategies to manage stress by discharge and Other Additional outcome/goals: Intervention/Plan: See List Interventions/Plan:: Assess stressors,coping strategies & signs of derpression on admission, Instruct/assist pt to develop coping & personal stress Mgt strategies, Refer to Behavioral Health if appropriate, Refer to Physician if appropriate, Instruct patient to recognize signs & symptoms of depression, Instruct patient to recog and Other additional plan/intervention Patient Health Questionnaire PHQ-9 Screening Initial Assessment: 1. Little interest or pleasure in doing things: Several days 2. Feeling down, depressed, or hopeless: Several days 3. Trouble falling or staying asleep, or sleeping too much: Not at all 4. Feeling tired or having little energy: Several days 5. Poor appetite or overeating: Not at all 6. Feeling bad about yourself -- or that you are a failure or have let yourself or your family down: Several days 7. Trouble concentrating on things, such as reading the newspaper or watching television: Not at all 8. Moving or speaking so slowly that other people could have noticed. Or the opposite - being so fidgety or restless that you have been moving around a lot more than usual: Not at all 9. Thoughts that you would be better off , or of hurting yourself in some way: Not at all How difficult have these problems made it for you to do your work, take care of things at home, or get along with other people?: Not difficult at all Total Score: 4 MICHAEL-Q SV Test Statements CAD is a disease of the arteries in the heart: False Examples of risk factors for heart disease: True Angina is chest pain or discomfort: True The benefits of resistance training include: True Eating more meat and dairy products: False Anti-platelet medications such as aspirin are important: True The only effective way to manage stress: False An exercise warm-up slowly increases heart rate: True Prepared, processed foods usually have high sodium: True Depression is common after a heart attack: True The statin medications lower cholesterol: True To control blood pressure, lower the amount of sodium: True If someone gets chest discomfort during walking: False Transfats are partially hydrogenated vegetable oils: True Sleep apnea that is not treated increases the risk: True To control cholesterol, one should become a vegetarian: False Someone knows if he/she is exercising at the right level: True Diabetes cannot be prevented with exercise & health eating: True Stress is a large risk for heart attack: True A diet that can help lower blood pressure is rich in: True Total Score Total Correct Responses: 18 Self-Efficacy 6-Item Scale Initial Assessment: We would like to know how confident you are in doing certain activities. Please select your confidence level for: Fatigue Select Number: 4 Physical Discomfort or Pain Select Number: 4 Emotional Distress Select Number: 5 Other Symptoms or Health Problems Select Number: 5 Different Tasks and Activities Select Number: 7 Medication Select Number: 7 Total Score:: 5 Nutrition Survey Nutrition Survey Instructions Scoring Instructions Nutrition Survey Initial: Have you lost >10 lbs over the past 2 months without trying?: Yes Are you following a special diet at home for diabetes, low fat, or low salt?: No Are you interested in meeting with a dietitian for help understanding your diet?: Yes Do you eat less than 3 meals a day?: No Do you eat fatty meats (aguilar, sausage, ribs, etc), fried foods, desserts, large amounts of salad dressings, margarine, butter, or cheese most days?: No Do you have food allergies? [Enter types in comment field]: No Do you eat in restaurants more than 3 times a week?: No Do you season food with salt, seasoning salt, or garlic salt?: Yes Do you used canned, boxed, frozen meals, or soups, seasoning packets?: Yes Total Score:: 4 Exercise - 30-day Assessment Physician Prescribed Exercise Modalities: Treadmill, Rower, Anna [place] AD-7, SciFit Stepper, SciFit Pro- II Ergometer and SciFit Lateral [place] Exercise - 60-day Assessment Physician Prescribed Exercise Modalities: Treadmill, Rower, Anna [place] AD-7, SciFit Stepper, SciFit Pro- II Ergometer and SciFit Lateral [place] Exercise - 90-day Assessment Physician Prescribed Exercise Modalities: Treadmill, Rower, Schwinn Airdyne AD-7, SciFit Stepper, SciFit Pro- II Ergometer and SciFit Lateral [place] Exercise - Final/Discharge Physician Prescribed Exercise Modalities: Treadmill, Rower, Schwinn Airdyne AD-7, SciFit Stepper, SciFit Pro- II Ergometer and SciFit Lateral [place] Frequency: 3x/week for 12 weeks [36 sessions] Intensity: 60-80% of age predicted maximum heart rate reserve Current METSs:: 3 Target Heart Rate:: 98-113 Nutrition - 30-Day Assessment Weight Mgt (Other Care) Height: 5 ft 6 in Weight:: 189 lb BMI: 30.4 Nutrition - 60-Day Assessment Weight Mgt (Other Care) Height: 5 ft 6 in Weight:: 189 lb BMI: 30.4 Core - Final Assessment Hypertension Resting Blood Pressure:: 107/72 [place] [employer] Hypertension Guidelines Core - 60-Day Assessment Hypertension Resting Blood Pressure:: 107/72 [place] [employer] Hypertension Guidelines Psychosocial - 30-Day Assess Target Goals Target Goals Referral to Behavioral Health PS - Interventions: Yes: Attend Stress Management Classes Psychosocial - 60-Day Assess Target Goals Target Goals Referral to Behavioral Health PS - Interventions: Yes: Attend Stress Management Classes Psychosocial - 90-Day Assess Target Goals Target Goals Referral to Behavioral Health PS - Interventions: Yes: Attend Stress Management Classes Psychosocial - Final Assessmen Target Goals Target Goals Psychosocial Test phq-9 Severity See PHQ-9 Score: 4 Referral to Behavioral Health PS - Interventions: Yes: Attend Stress Management Classes Nutrition - 90-Day Assessment Weight Mgt (Other Care) Height: 5 ft 6 in Weight:: 189 lb BMI: 30.4 Nutrition - Final Assessment Program Goals Patient has diagnosis of Hyperlipidemia (ICD E78)?: No Weight Mgt (Other Care) Height: 5 ft 6 in Weight:: 189 lb BMI: 30.4
[2024-11-01 13:40] VITALS: BP 107/72; BMI 30.4
== END | disposition home or self-care (01) ==
LOC: CR 12:46
PROVIDERS: PCP Family Medicine; Referring Provider Internal Medicine Cardiovascular Disease; Visit Provider Internal Medicine Cardiovascular Disease
DX: I25.5 Ischemic cardiomyopathy (principal); I25.2 Old myocardial infarction; Z95.5 Presence of coronary angioplasty implant and graft

== ENCOUNTER 2024-11-25 11:15 | Outpatient (RCR) | payer MEDICARE, SELFPAY ==
[2024-11-01 13:40] VITALS: BMI 30.4
== END 2024-11-27 23:59 ==
LOC: CR 11:15
PROVIDERS: PCP Family Medicine; Referring Provider Internal Medicine Cardiovascular Disease; Visit Provider Internal Medicine Cardiovascular Disease
DX: I25.5 Ischemic cardiomyopathy (principal); I21.11 ST elevation (STEMI) myocardial infarction involving right coronary artery; Z95.5 Presence of coronary angioplasty implant and graft
CPT/HCPCS: 93798

== ENCOUNTER → 2024-12-02 | Outpatient (CLI) | payer MEDICARE, SELFPAY ==
[2024-11-29 10:39] VITALS: BMI 29.7
[2024-12-02 11:33] LABS: AST(SGOT) 32 U/L (<=31); Alanine Aminotransfer ALT/SGPT 34 U/L (<=34); Albumin, Serum 4.3 g/dL (3.4-4.8); Alkaline Phosphatase 68 U/L (35-104); Bilirubin, Direct 0.24 mg/dL (0.00-0.30); Cholesterol 72 mg/dL (<=200); Globulin 3.1 g/dL (2.2-4.2); Low Density Lipoprotein Calc. 20 mg/dL; Triglycerides 81 mg/dL; Very Low Density Lipoprotein 16 mg/dL (5-40); cholesterol:hdl ratio screen 1.99
== END | disposition home or self-care (01) ==
LOC: LAB 09:35
PROVIDERS: PCP Family Medicine; Referring Provider Physician Assistant Medical; Visit Provider Physician Assistant Medical
DX: I25.10 Atherosclerotic heart disease of native coronary artery without angina pectoris (principal)
CPT/HCPCS: 36415; 80061; 80076

== ENCOUNTER 2024-12-04 19:32 | Emergency (ER) | payer MEDICARE, SELFPAY ==
[2024-11-29 10:39] VITALS: BMI 29.7
[2024-12-04 19:32] VITALS: BP 112/87; PULSE 81; RESP 15; TEMP 36.6; O2SAT 100; BMI 29.2
--- NOTE | 2024-12-04 19:45 | ED.VIS.DYS ---
HPI History of Present Illness Chief Complaint: Shortness of Breath [facility] Medical History (Updated 12/04/24 @ 23:[address] Remigio Larson, DO) Hyperlipidemia Atherosclerotic heart disease of [place] coronary artery without angina pectoris ST elevation (STEMI) myocardial infarction Cardiomyopathy, ischemic Shock HFrEF (heart failure with reduced ejection fraction) Cardiac arrest Chest pain Acute hypoxic respiratory failure Flash pulmonary edema ST elevation myocardial infarction (STEMI) of inferior wall (10/08/24) Home Medications ?Medication ?Instructions ?Recorded ?Last Taken ?Type pantoprazole 40 mg tablet,delayed 40 mg PO DAILY 02/26/19 Unknown History release calcium carbonate 500 mg PO QDAY PRN dyspepsia 01/27/24 Unknown History cholecalciferol (vitamin D3) 10 10 mcg PO QDAY PRN supplement 01/27/24 Unknown History mcg (400 unit) capsule aspirin 81 mg tablet,delayed 81 mg PO QDAY 10/20/24 Unknown History release (Adult Aspirin Regimen) losartan 25 mg tablet 25 mg PO QDAY #90 tabs 10/20/24 Unknown Rx metoprolol succinate 50 mg 50 mg PO QDAY #90 tabs 10/20/24 Unknown Rx tablet,extended release 24 hr rosuvastatin 40 mg tablet 40 mg PO QDAY #90 tabs 10/20/24 Unknown Rx ticagrelor 90 mg tablet 90 mg PO BID #180 tabs 10/20/24 Unknown Rx Allergy/AdvReac Type Severity Reaction Status Date / Time No Known Allergies Allergy Verified 12/04/24 19:32 Family History Other CAD (coronary artery disease) COPD (chronic obstructive pulmonary disease) Cancer Diabetes Heart disease Hypertension Myocardial infarction Surgical History Stented coronary artery (10/08/24) H/O section Hx of tubal ligation Social History (Updated 10/20/24 @ 09:30 by Daisy Sullivan) Smoking Status: Never smoker alcohol intake: never substance use type: does not use EXAM Physical Exam Const Vital Signs: 12/04/24 19:32 12/04/24 19:47 12/04/24 20:11 Temperature 97.9 F Temperature Source Temporal Pulse Rate 81 Respiratory Rate 15 Respiratory Effort Normal Non-Labored Respiratory Depth Normal Respiratory Pattern Normal Blood Pressure 112/87 H Blood Pressure Mean 95 Pulse Ox 100 Oxygen Delivery Method Room Air Room Air 12/04/24 20:46 12/04/24 21:00 12/04/24 22:00 Temperature 99.6 F H 99.6 F H 98.7 F Temperature Source Oral Oral Oral Pulse Rate 66 69 65 Respiratory Rate 14 19 H 23 H Respiratory Effort Respiratory Depth Respiratory Pattern Blood Pressure 121/58 H 125/60 H 121/64 H Blood Pressure Mean 79 81 83 Pulse Ox 99 100 97 Oxygen Delivery Method Room Air Room Air Room Air 12/04/24 23:00 Temperature 98.7 F Temperature Source Pulse Rate 64 Respiratory Rate 14 Respiratory Effort Respiratory Depth Respiratory Pattern Blood Pressure 118/68 Blood Pressure Mean 84 Pulse Ox 94 Oxygen Delivery Method MDM MDM MDM Narrative Medical decision making narrative: HISTORY OF PRESENT ILLNESS: Chief complaint: Shortness of breath 69-year-old female presents concern for shortness of breath. She has been more shortness of breath today. Notes recent stent placement and cardiac arrest approximately 8 weeks ago. Denies chest pain. Denies syncope. No she does get lightheaded upon standing. Denies vomiting. Denies fever. No she was recent diagnosed with COVID within the last couple of weeks. No she feels better since diagnosis. Denies leg swelling. Denies hemoptysis. Denies any other PE risk factors. REVIEW OF SYSTEMS: Pertinent positives: Shortness of breath, lightheadedness Pertinent negatives: Chest pain PHYSICAL EXAM: Nursing triage notes reviewed, Vital signs reviewed Constitutional: please see mdm HENT: MMM Eyes: Pupils equal round and reactive to light, Extraocular muscles intact Neck: No stridor, no JVD, full neck ROM Lungs: Clear to auscultation, No wheezing or rales. No increased work of breathing, no conversational dyspnea, no accessory muscle use, no nasal flaring. No respiratory distress noted Heart: Regular rate and rhythm, No murmurs, No rubs and No gallops, 2+ distal pulses (radial, femoral, posterior tibial) in all extremities Abdomen: Soft, there is no tenderness, rigidity, rebound or guarding, no obvious peritoneal signs, no palpable pulsatile abdominal masses, no auscultated abdominal bruit : No CVAT Extremities: No edema Neuro: No new focal neurological deficits, cranial nerves II through XII intact, 5/5 strength in all present extremities. Intact sensation to light touch in all present extremities, 2+ reflexes bilateral patella tendons. Skin: Mild bruising noted to the posterior right humerus MEDICAL DECISION MAKING: Chief Complaint: please see HPI External records reviewed: Reviewed prior cardiovascular test Factors affecting care: history of CAD, STEMI, hyperlipidemia Social determinants of health: none History obtained from others: none Consults: none MDM Narrative: The patient was initially hemodynamically stable, afebrile and nontoxic-appearing. Exam without focal cardiopulmonary abnormalities. I considered the following differential diagnosis: ACS, arrhythmia, anemia, pneumonia, COVID, RSV, flu, heart failure, PE I obtained a broad lab and imaging work to further determine if the patient was suffering from a life-threatening etiology. Initially resuscitated patient 1 L normal saline ALL IMAGES (IF OBTAINED) HAVE BEEN PERSONALLY REVIEWED AND INTERPRETED BY MYSELF. EKG with normal sinus rhythm rate of 69, left ax deviation, normal intervals, no STEMI, noted T wave inversions noted inferior laterally Initial troponin negative, delta troponin also negative with a delta of less than 6 CBC without leukocytosis, severe anemia, no thrombocytopenia. BMP without evidence of significant electrolyte abnormalities, no anion gap, no acute kidney injury. CT of the chest shows no evidence of pulmonary embolism, pneumonia or pericardial effusion COVID-19 test is positive Patient's BNP is elevated this is likely secondary to recent heart attack, stent placement as well as COVID-19 infection. There is no sign of volume overload on exam. No pulmonary edema on CT. The synthesis of the patient's history, physical exam suggest no acute pathology likely symptoms are related to sequela of recent heart attack and COVID-19 infection. The patient is ambulated here in the emergency department hypoxia. She is appropriate for discharge home with close outpatient PCP follow-up. Strict return precautions were discussed. The patient and/or family, caregivers express understanding. The patient and/or family, caregivers agrees with the plan. Shared decision making: I will have a discussion with the patient and or visitors regarding risk/benefits of further testing or admission. They will be made aware of of the risk/benefits inherent in this decision they will be given the opportunity to voice understanding. Total critical care time today provided was at least 0 minutes. This excludes separately billable procedures. Critical care time (if documented) is secondary to the patient having high probability of clinically significant/life threatening deterioration in the patient's condition which required my urgent intervention. Impression: 1. Dyspnea 2. COVID-19 infection 3. History of CAD Dispo: Discharge home This note was generated with [employer] dictation software. It may contain incorrect words, spelling, and punctuation that were not noted in review of the chart prior to signing. Lab Data Labs: Laboratory Results - last 24 hr 12/04/24 12/04/24 19:45 22:00 WBC 7.6 RBC 4.54 Hgb 13.0 Hct 39.9 MCV 87.9 MCH 28.6 MCHC 32.6 RDW Std Deviation 45.8 H RDW Coeff of [place] 14.3 Plt Count 195 MPV 11.0 Immature Gran % (Auto) 0.300 Neut % (Auto) 80.1 H Lymph % (Auto) 13.0 L [place] % (Auto) 6.0 Eos % (Auto) 0.5 Baso % (Auto) 0.1 Absolute Neuts (auto) 6.1 Absolute Lymphs (auto) 0.98 Nucleated RBC % 0 Sodium 140 Potassium 4.0 Chloride 105 Carbon Dioxide 21.3 Anion Gap 14 BUN 15 Creatinine 1.15 Estim Creat Clear Calc 49.87 L Est GFR (MDRD) Non-Af 52 L BUN/Creatinine Ratio 12.8 Glucose 128 H Calcium 9.8 Troponin T High Sens 18 H D Troponin T Hi Sens 2 Hr 14 NT pro BNP II 3004 H Radiography Diagnostic Testing: Clinical Impression(s) from Imaging Studies Chest CTA 12/04/24 20:40 IMPRESSION: No acute abnormality Reading Location: [facility] Discharge Plan Triage Chief Complaint: Shortness of Breath ED Provider: Remigio Larson Dx/Rx/DC Orders Clinical Impression: Dyspnea Instructions: ED Dyspnea Prescriptions: No Action calcium carbonate 500 mg calcium (1,250 mg) tablet 500 mg PO QDAY PRN (Reason: dyspepsia) cholecalciferol (vitamin D3) 10 mcg (400 unit) capsule 10 mcg PO QDAY PRN (Reason: supplement) aspirin [Adult Aspirin Regimen] 81 mg tablet,delayed release (DR/EC) 81 mg PO QDAY losartan 25 mg tablet 25 mg PO QDAY Qty: 90 3RF metoprolol succinate 50 mg tablet extended release 24 hr 50 mg PO QDAY Qty: 90 3RF rosuvastatin 40 mg tablet 40 mg PO QDAY Qty: 90 3RF ticagrelor 90 mg tablet 90 mg PO BID Qty: 180 3RF pantoprazole 40 MG tablet,delayed release (DR/EC) 40 mg PO DAILY Primary Care Provider: Eugenio James Referrals: Eugenio James MD [Primary Care Provider] - Activity Restrictions/Additional Instructions: Thank you for trusting us with your care today! Your labs and images are reassuring. There is no sign of pneumonia on your CT scan. Your COVID and flu and RSV test was positive for COVID which may be related to an ongoing infection or could to be related to your recent COVID infection. There is no sign of inflammation in your blood. No sign of anemia. No sign of kidney damage. Your heart test were downtrending from prior. Please return to the emergency department if your symptoms change or worsen. Please follow with your primary care physician at the next available appointment for further outpatient evaluation and management. Print Language: [place] Disposition Disposition: Home, Self Care
--- OUTSIDE RECORDS SUMMARY | 2024-12-04 20:02 | XMS RPT_ITS | CCD ---
Author Organization [facility] Care Team Providers Care Press Cutter Name Role Phone EUGENIO PATEL Attending Unavailable AMANDAEUGENIO MALLORY Primary Care Unavailable AMANDAEUGENIO MALLORY Admitting Unavailable AMANDAEUGENIO MALLORY Attending Unavailable AMANDAEUGENIO MALLORY Primary Care Unavailable AMANDA, EUGENIO Bundy Admitting Unavailable Mavis Hughes PA-C Primary Care Provider Mavis Hughes PA-C Primary Care Provider Mavis Hughes PA-C Primary Care Provider Mavis Hughes PA-C Primary Care Provider Eugenio Peralta MD Primary Care Provider Eugenio Peralta MD Primary Care Provider Mavis Hughes PA-C Primary Care Provider Ha[employer] FACTORY WORKER.INSOLVENCY CONSULTANT, Lola Unavailable Suppan [employer] FACTORY WORKER.INSOLVENCY CONSULTANT, Natalia A Unavailable [employer] FA[employer]ORY WORKER.INSOLVENCY CONSULTANT, Natalia A Unavailable Dr. Eugenio Peralta MD Primary Care Provider Dr. Brando Crooks DO Emergency Provider Dr. Eve Rowley MD Other Provider Unavailable Dr. Dylan Soni DO Admit Provider Dr. Dylan Soni DO Attending Provider Dr. Eugenio Peralta MD Primary Care Provider [phone] Dr. Brando Crooks DO Emergency Provider Amrik YOU, Dr. Prado Other Provider Unavailable Zachariah ALEJANDRO, Dr. Richardson Admit Provider [phone] Zachariah ALEJANDRO, Dr. Richardson Attending Provider Zachariah ALEJANDRO, Dr. Richardson Other Provider Lisa ALEJANDRO, Dr. White Other Provider Dr. Mehnaz Gonzalez DO Attending Provider Eugenio Peralta MD Primary Care Provider [phone] Mehnaz Gonzalez Unavailable PROVIDER, UNKNOWN Attending Unavailable PROVIDER, UNKNOWN Admitting Unavailable SALLY CEDENO Admitting Unavailable AMEYA STEWART Referring Unavailable FABIAN, EUGENIO Primary Care Unavailable MARIMAR VAUGHN Attending Unavailable Amrik YOU, Dr. Prado Attending Provider Unavailab Lisa ALEJANDRO, Dr. White Referring Provider Fabian YOU, Dr. Becker Referring Provider Tova Manriquez Attending Provider Lencho YOU, Dr. Cutler Attending Provider [phone] Lencho YOU, Dr. Cutler Referring Provider TIFFANI GANT Attending Unavailable FABIAN, EUGENIO J Primary Care Unavailable HAAGEN, LOLA Attending Unavailable FABIAN, EUGENIO J Primary Care Unavailable LOLA FARRIS Referring Unavailable FABIAN, EUGENIO Hanson Primary Care Unavailable FABIAN, EUGENIO Hanson Attending Unavailable FABIAN, EUGENIO J Primary Care Unavailable FABIAN, EUGENIO J Attending Unavailable FABIAN, EUGENIO J Primary Care Unavailable FABIAN, EUGENIO J Referring Unavailable FABIAN, EUGENIO J Primary Care Unavailable FABIAN, EUGENIO J Referring Unavailable FABIAN, EUGENIO J Primary Care Unavailable NATALIA MONGE Attending Unavailable FABIAN, EUGENIO J Primary Care Unavailable FABIAN, EUGENIO J Primary Care Unavailable TIFFANI GANT Referring Unavailable FABIAN, EUGENIO J Primary Care Unavailable José Miguel Lambert Attending Unavailable Fabian, Eugenio Referring Unavailable Rebecca Weber Attending Unavailable Hazel, Eugenio Referring Unavailable Lencho, Adkins Referring Unavailable Lencho, He Attending Unavailable Fabian, Eugenio Primary Care Unavailable Lencho, He Referring Unavailable Lencho, Adkins Attending Unavailable [facility] Unavailable Lencho, Adkins Referring Unavailable LenchoAzral Attending Unavailable [facility] Unavailable Rebecca Weber Referring Unavailable Rebecca Weber Attending Unavailable [facility] Unavailable Dylan Soni Admitting Unavailable Eve Rowley Consulting Unavailable [facility] Unavailable Mehnaz Gonzalez Attending Unavailable Dylan Soni Consulting Unavailable [facility] Unavailable Tova Latif Referring UnavailTova Arredondo Attending UnavailEve Morillo Attending Unavailable Mehnaz Gonzalez Referring Unavailable [facility] Unavailable Rebecca Weber Referring Unavailable José Miguel Lambert Attending Unavailable [facility] Unavailable Dylan Soni Attending Unavailable Dylan Soni Admitting Unavailable Jajudith, Eve Consulting Unavailable [facility] Unavailable Dylan Soni Consulting Unavailable Mehnaz Gonzalez Consulting Unavailable [facility] Referring Unavailable Tova Latif [facility] Allergies Allergy Classification Reported Allergen(s) Allergy Type Date of Onset Reaction(s) Facility (20 sources) POISON AKANKSHA EXTRACT; Translations: [POISON AKANKSHA] Drug Allergy 07-28-2005 [facility] Work Phone: (20 sources) Adhesive Tape-Silicones; Translations: [ADHESIVE TAPE-SILICONES] Propensity to adverse reactions to drug 10-28-2022 Rash [facility] Work Phone: Medications Current Medications Medication Drug Class(es) Dates Sig (Normalized) Sig (Original) amoxicillin 875 mg / clavulanate 125 mg oral tablet (6 sources) Penicillin-class Antibacterial Start: 10-10-2024 End: 10-16-2024 take 1 tablet by mouth every twelve hours in the evening amoxicillin-clav ulanate (Augmentin) 875-125 MG tablet Take 1 tablet by mouth every 12 hours for 9 doses. 9 tablet 10/11/2024 3:11 PM EDT 10/11/2024 10/16/2024 Active Start: 11-01-2022 End: 11-08-2022 take 1 tablet by mouth twice daily amoxicillin-clavulanic acid (AUGMENTIN) 875-125 mg per tablet Take 1 tablet by mouth twice daily for 7 days. 14 tablet 0 11/01/2022 11/08/2022 Active Comment on above: Take 1 tablet by [facility] twice daily for 7 days. aspirin 81 mg delayed release oral tablet (12 sources) Platelet Aggregation Inhibitor, Nonsteroidal Anti-inflammatory Drug Start: End: take 1 tablet by mouth once daily aspirin, enteric coated (ASPIRIN, ENTERIC COATED) 81 mg EC tablet Take 81 mg by mouth once daily. 2024 2025 Active calcium carbonate 1250 mg oral tablet (6 sources) Start: take 1 tablet by mouth once daily as needed Calcium Carbonate 500 mg calcium (1,250 mg) tablet Active 500 mg PO daily as needed for dyspepsia January 27, 2024 12:00am Calcium Carbonate / vitamin D3 (20 sources) Start: calcium carbonate/vitamin d3(CALCIUM 500 WITH VITAMIN D 500 MG-125 UNIT TAB) Take one(1) tablet twice daily. 0 07/19/2007 Active Comment on above: Take one(1) tablet t wice daily. cholecalciferol 0.01 mg oral capsule (6 sources) Vitamin D Start: take 1 capsule by mouth once daily as needed Cholecalciferol (Vitamin D3) 10 mcg (400 unit) capsule Active 10 ug PO daily as needed for supplement January 27, 2024 12:00am clobetasol propionate 0.5 mg/ml topical cream (20 sources) Corticosteroid Start: End: 025 clobetasol (TEMOVATE) 0.05 % cream Apply to [...] mg/ml vaginal cream (20 sources) Estrogen Start: End: estradiol (ESTRACE) 0.01 % (0.1 mg/gram) vaginal cream Indications: Postmenopausal atrophic vaginitis Use small pea sized amount at vaginal opening twice a week. 42.5 g 5 01/07/2024 12/28/2025 Active Comment on above: Use small pea sized amount at vaginal opening twice a week. losartan potassium 25 mg oral tablet (12 sources) Angiotensin 2 Receptor Usman Start: End: take 1 tablet by mouth once daily losartan (COZAAR) 25 mg tablet Take 25 mg by mouth once daily. 2024 2025 Active 24 hr metoprolol succinate 50 mg extended release oral tablet (18 sources) beta-Adrenergic Usman Start: End: take 1 tablet by mouth once daily metoprolol succinate ER (TOPROL XL) 50 mg 24 hr tablet Take 50 mg by mouth once daily. 2024 01/10/2025 Active Start: 10-10-2024 End: 10-11-2024 take 25 mg by mouth twice daily 25 mg, Oral, 2 times daily, First dose (after last modification) on Thu10/10/24 at 0945 pantoprazole 20 mg delayed release oral tablet (20 sources) Proton Pump Inhibitor Start: 10-10-2024 End: 2025 take 1 tablet by mouth once daily before breakfast pantoprazole (ProtoNix) 20 MG EC tablet Take 1 tablet (20 mg) by mouth every morning (before breakfast). Do not crush, chew, or split. 30 tablet 11 10/11/2024 3:11 PM EDT 2024 2025 Active Start: 02-26-2019 End: 10-11-2024 take 1 tablet by mouth once daily pantoprazole DR (PROTONIX) 40 mg tablet Indications: Gastroesophageal reflux disease without esophagitis Take 1 tablet by mouth once daily. 90 tablet 3 12/14/2023 Active Comment on above: Take 1 tablet by marielle once daily. predniSONE 10 mg oral tablet (13 sources) Start: 12-03-2023 End: 12-12-2023 predniSONE (DELTASONE) 10 mg tablet Take 4 [...] MG tablet Discontinued 40 mg PO DAILY 12 06February 26, 2019 1:00am March 06, 2019 1:00am March 16, 2019 1:10am With food Comment on above: Take 2 tablets by mo uth once daily for 5 days. Take 4 [...] Take 1 tablet by marielle th every 4 hours as needed. rosuvastatin calcium 40 mg oral tablet (16 sources) HMG-CoA Reductase Inhibitor Start: 10-12-19 End: 01-10-20 take 1 tablet by mouth once daily rosuvastatin (CRESTOR) 40 mg tablet Take 40 mg by mouth once daily. 10/11/2024 01/09/2025 Active Start: 10-09-2024 End: 10-11-2024 take 40 mg by mouth once daily 40 mg, Oral, Nightly, F irst dose (after last modification) on 10/09/24 at 2100 sucralfate 1000 mg oral tablet (20 sources) Aluminum Complex Start: 06-15-2023 End: 06-14-2024 take 1 tablet by mouth at bedtime [...] marielle th before meals and at bedtime. ticagrelor 90 mg oral tablet (18 sources) Start: 10-09-19 End: 12-11-19 take 1 tablet by mouth twice daily ticagrelor (BRILINTA) 90 mg tablet Take 90 mg by mouth two times a day. 10/11/2024 12/10/2024 Active tiZANidine 4 mg oral tablet (20 sources) Central alpha-2 Adrenergic Agonist Start: 04-21-19 [...] spasms). triamcinolone acetonide 1 mg/ml topical cream (16 sources) Corticosteroid Start: 12-03-19 End: 01-07-20 triamcinolone acetonide (KENALOG) 0.1 % cream Apply 1 application to affected area two times a day. 30 g 2 01/07/2024 Active Completed/Discontinued Medications Medication Drug Class(es) Dates Sig (Normalized) Sig (Original) acetaminophen 32 mg/ml oral solution (2 sources) Start: 10-08-2024 End: 10-11-2024 take 1000 mg by mouth every eight hours 1,000 mg, Oral, Every 8 hours, First dose on 10/08/24 at 1900, Maximum dose of acetaminophen is 4000 mg from all sources in 24 hours. ampicillin-sulbactam (Unasyn) 3,000 mg in sodium chloride 0.9 % 100 mL IVPB (Add-[place]) (4 sources) Start: 10-09-2024 End: 10-10-2024 take 3000 mg intravenously every six hours 3,000 mg, IntraVENous, at 200 mL/hr, Administer over 30 Minutes, Every 6 hours, First dose (after last modification) on 10/09/24 at 1000, For 5 doses, ADD-[place] bag, Suspected Indication (Select all that apply): Aspiration Pneumonia Start: 10-08-2024 End: 10-09-2024 take 3000 mg intravenously every six hours 3,000 mg, IntraVENous, at 200 mL/hr, Administer over 30 Minutes, Every 6 hours, First dose on 10/08/24 at 2200, ADD-[place] bag, Suspected Indication (Select all that apply): Aspiration Pneumonia benzonatate 100 mg oral capsule (15 sources) [...] for cough. Take 1 capsule by mo [facility] three times a day as needed for cough. Chlorhexidine (2 sources) Start: 5 End: 5 apply 1 dose topically once daily Topical, Daily, First dose on 10/09/24 at 1400 doxycycline hyclate 100 mg oral tablet (2 sources) Tetracycline-clas s Drug Start: 3 End: 4 take 1 tablet by mouth twice daily [...] 1 tablet by marielle twice daily for 10 days. 0.4 ml enoxaparin sodium 100 mg/ml prefilled syringe (2 sources) Low Molecular Weight Heparin Start: 2024 End: 2024 inject 40 mg by subcutaneous injection every twenty-four hours 40 mg, SubCUTAneous, Every 24 hours scheduled (Daily), First dose on 10/08/24 at 1900, Indication of Use: Prophylaxis-DVT/PE, Indications: Prophylaxis of Venous Thromboembolism 2 ml furosemide 10 mg/ml injection (2 sources) Loop Diuretic Start: 2024 End: 2024 40 mg, IntraVENous, Once, On 10/09/24 at 0800, For 1 dose GLUC HCL/CSANA/GLY-AM-GLY, MX/C (GLUCOSAM-CONDROITIN- GA GLYCN-C ORAL) (1 source) GLUC HCL/CSANA/GLY-AM-GLY, MX/C (GLUCOSAM-CONDROITIN- GA GLYCN-C ORAL) Take by mouth. 0 Active Comment on above: Take by mouth. lidocaine 0.04 mg/mg medicated patch (2 sources) Antiarrhythmic, Amide Local Anesthetic Start: 2024 End: 2024 apply 1 dose transdermal route once daily, then apply 1 dose transdermal route every twelve hours 1 patch, TransDERmal, Administer over 12 Hours, Daily, First dose on 10/09/24 at 0900, Apply patch to painful areas. Patch may remain in place for up to 12 hours in any 24 hour period. lisinopril 10 mg oral tablet (20 sources) Angiotensin Converting Enzyme Inhibitor Start: 2023 End: 2025 take 1 tablet by mouth once daily Lisinopril 10 mg tablet Discontinued 10 mg PO daily April 28, 2024 1:00am October 20, 2024 9:27am 50 ml magnesium sulfate 40 mg/ml injection (2 sources) Start: 2024 End: 2024 2,000 mg, IntraVENous, at 25 mL/hr, Administer over 2 Hours, Once, On Thu10/10/24 at 0730, For 1 dose, Recommended infusion rate not to exceed 1,000 mg (milligrams) per hour. MULTIVITAMIN TAB (1 source) Start: 2007 MULTIVITAMIN TAB Take one(1) tablet daily. 0 07/19/2007 Active Comment on above: Take one(1) tablet d aily. mupirocin 0.02 mg/mg topical ointment (2 sources) RNA Synthetase Inhibitor Antibacterial Start: 2024 End: 2024 1 Application, Nasal, 2 times daily, First dose on 10/08/24 at 2100, For 5 days, Indications: MRSA Nasal Decolonization 1 ml naloxone hydrochloride 0.4 mg/ml injection (2 sources) Opioid Antagonist Start: 2024 End: 2024 ondansetron ODT (Zofran-ODT) disintegrating tablet 4 mg (2 sources) Start: 2024 End: 2024 take 1 tablet by mouth every eight hours as needed for nausea and vomiting ondansetron ODT (Zofran-ODT) disintegrating tablet 4 mg oxyCODONE (2 sources) Opioid Agonist Start: 2024 End: 2024 take 1 tablet by mouth every four hours as needed for pain oxyCODONE (Roxicodone) immediate release tablet 2.5 mg perflutren protein A microsphere (Optison) 3 mL in sodium chloride (PF) 0.9 % 10 mL IV (2 sources) Start: 2024 End: 2024 0-10 mL, IntraVENous, IMG once PRN, other, Suboptimal echo image, Starting on 10/09/24 at 1141, For 1 dose, CV Procedural Medications, Administer via slow IVP for suboptimal echocardiogram enhancement. May administer as divided doses to reach optimal image enhancement phenol 14 mg/ml mucosal spray (2 sources) Start: 2024 End: 2024 take 1 spray(s) by mouth every two hours as needed 1 spray, Mouth/Throat, Every 2 hour PRN, sore throat, Starting on 10/09/24 at 0540, Instruct patient to spit out after 15 seconds. polyethylene glycol 3350 74425 mg powder for oral solution (2 sources) Osmotic Laxative Start: 2024 End: 2024 potassium chloride 20 meq powder for oral solution (2 sources) Start: 2024 End: 2024 take 1 [oz_av] by mouth once 40 mEq, Oral, Once, On 10/09/24 at 0900, For 1 dose, Dissolve each packet in 4 ounces of water = 5 mEq per 1 oz fluid., Indications: Hypokalemia potassium phosphates 40 mmol in sodium chloride 0.9 % 500 mL IVPB (2 sources) Start: 2024 End: 2024 40 mmol, IntraVENous, at 83.3 mL/hr, Administer over 360 Minutes, Once, On 10/10/24 at 1030, For 1 dose 100 ml propofol 10 mg/ml injection (4 sources) General Anesthetic Start: 2024 End: 2024 5-50 mcg/kg/min 89.7 kg (2.691-26.91 mL/hr, rounded to 2.69-26.91 mL/hr), IntraVENous, Continuous, Starting on 10/08/24 at 1915, If RASS 1 point below goal - decrease dose by 5 mcg/kg/min no faster than every 5 min. If RASS 2 points below goal - decrease dose by 10 mcg/kg/min no faster than every 5 min. If RASS at goal, continue current dose. If RASS 1 point above goal - increase dose by 5 mcg/kg/min no faster than every 5 min. If RASS 2 or more points above goal - increase dose by 10 mcg/kg/min no faster than every 5 min. If after titration rate change patient exhibits adverse hemodynamic response, next titration rate change may be adjusted by one-half of the previous rate change. Unless patient is on a paralytic agent or is in ARDS, propofol infusion must be stopped once per shift until the RASS score is 0. Once a RASS of zero is obtained, restart the infusion at 50% of the previous rate and resume titration to RASS above. General Anesthetic - do not give without appropriate ventilation support. Do not administer propofol in same IV catheter as blood or plasma. Discard any unused portion of propofol vials and tubing after 12 hours., Titrate Infusion? Yes, Initial Infusion Rate: 20 mcg/kg/min, Goal of Therapy: RASS 0 to -1, Contact Provider if: New onset HR less than 50 bpm, New onset SBP less than 90 mmHg, Triglycerides greater than 500 mg/dL, Patient is receiving maximum dose and is not achieving the goal of therapy Start: 10-08-2024 End: 10-08-2024 take 1 dose intravenously every twelve hours Starting on 10/08/24 at 1853, For 1 dose, Giovanna Madden: cabinet override General Anesthetic - do not give without appropriate ventilation support. Do not administer propofol in same IV catheter as blood or plasma. Discard any unused portion of propofol vials and tubing after 12 hours. 5 ml sodium chloride 9 mg/ml injection (4 sources) Start: 10-08-2024 End: 10-09-2024 take 10 mL intraluminal route every twelve hours 10 mL, IntraCATHeter, Every 12 hours, First dose on 10/08/24 at 1945, Administer to each lumen. Line Care. Use 10 mL or larger syringe. Start: 10-08-2024 End: 10-11-2024 10 mL, IntraCATHeter, PRN, l ine care, before blood draws, before and after infusion or medication administration, Starting on 10/08/24 at 1935, Use 10 mL or larger syringe. Problems Active Problems Problem Classification Problem Date Documented Da te Episodic/Chronic Acute myocardial infarction (20 sources) Myocardial infarction; Translations: [ST elevation (STEMI) myocardial infarction involving other coronary artery of inferior wall] Onset: 10-08-2024 10-08-2024 Chronic Allergic reactions (2 sources) Allergic contact dermatitis due to adhesive; Translations: [Allergic contact dermatitis due to adhesives] 10-28-2022 Episodic Aspiration pneumonitis; food/vomitus (3 sources) Aspiration pneumonia due to regurgitated gastric secretions; Translations: [Pneumonitis due to inhalation of food and vomit] Onset: 10-26-2024 10-26-2024 Episodic Cardiac arrest and ventricular fibrillation (20 sources) Cardiac arrest; Translations: [Cardiac arrest, cause unspecified] Onset: 10-08-2024 10-08-2024 Chronic Chronic kidney disease (20 sources) Chronic kidney disease stage 3A ; Translations: [Chronic kidney disease, stage 3a (HCC)] Onset: 11-14-2022 11-14-2022 Chronic Congestive heart failure; nonhypertensive (10 sources) Heart failure with reduced ejection fraction; Translations: [Unspecified systolic (congestive) heart failure] 10-08-2024 Chronic Coronary atherosclerosis and other heart disease (20 sources) Ischemic myocardial dysfunction; Translations: [Ischemic cardiomyopathy] Onset: 10-26-2024 10-20-2024 Chronic Coronary atherosclerosis and other heart disease (11 sources) Presence of coronary angioplasty implant and graft; Translations: [Stented coronary artery] Onset: 10-08-2024 Episodic Comment on above: [place] 3.8 X 18 mm JACINTA overlapping with [place] 3.5 X 22 mm JACINTA to mid RCA using IVUS 10/08/2024 Disorders of lipid metabolism (20 sources) Mixed hyperlipidemia; Translations: [Mixed hyperlipidemia] Onset: 10-07-2005 10-07-2005 Chronic E Codes: Fall (6 sources) Fall; Translations: [Unspecified fall, initial encounter] 11-07-2023 [...] [Postmenopausal atrophic vaginitis] Chronic Nonspecific chest pain (12 sources) Chest pain; Translations: [Chest pain, unspecified] 10-08-2024 Episodic Other aftercare (1 source) Other oil heaterman (current) drug therapy; Translations: [Long-term (current) use of other medications] 10-28-2022 Episodic Other aftercare (1 source) Drug therapy finding; Translations: [Other alf (current) drug therapy] 11-14-2022 Episodic Other and unspecified benign neoplasm (1 source) Gastric polyp; Translations: [Polyp of stomach and duodenum] 10-20-2022 Episodic Other circulatory disease (1 source) Elevated blood-pressure reading without diagnosis of hypertension; Translations: [Elevated blood-pressure reading, without diagnosis of hypertension] 12-24-2023 Episodic Other circulatory disease (1 source) History of cardiac arrest; Translations: [Personal history of sudden cardiac arrest] 10-26-2024 Episodic Other circulatory disease (1 source) Personal history of sudden cardiac arrest; Translations: [Hx of cardiac arrest] Onset: 10-26-2024 Episodic Other connective tissue disease (1 source) Pain in right hand; Translations: [Pain in right hand] 10-21-2022 Episodic Other diseases of veins and lymphatics (6 sources) Venous insufficiency of leg; Translations: [Venous insufficiency (chronic) (peripheral)] 01-27-2024 Episodic Other gastrointestinal disorders (2 sources) Dysphagia; Translations: [Dysphagia, unspecified] 10-28-2022 Episodic Other gastrointestinal disorders (2 sources) Finding of pulsation of abdomen; Translations: [Other specified symptoms and signs involving the digestive system and abdomen] 11-14-2022 Episodic Other injuries and conditions due to external causes (6 sources) Muscle strain; Translations: [Other injury of unspecified body region, initial encounter] 11-07-2023 Episodic Other injuries and conditions due to external causes (6 sources) Abrasion and/or friction burn of multiple sites; Translations: [Unspecified multiple injuries, initial encounter] 11-07-2023 Episodic Other lower respiratory disease (1 source) Rib pain; Translations: [Pleurodynia] 08-01-2023 Episodic Other lower respiratory disease (1 source) Cough; Translations: [Acute cough] 03-31-2023 Episodic Other lower respiratory disease (12 sources) Acute cardiac pulmonary edema ; Translations: [Acute pulmonary edema] 10-08-2024 Episodic Other lower respiratory disease (1 source) Acute pulmonary edema; Translations: [Acute pulmonary edema] Onset: 10-13-2024 Episodic Other nutritional; endocrine; and metabolic disorders [...] ear] 11-01-2022 Episodic Pleurisy; pneumothorax; pulmonary collapse (6 sources) Pleurisy; Translations: [Pleurisy] 05-25-2019 Episodic Residual codes; unclassified (2 sources) Postmenopausal state; Translations: [Asymptomatic menopausal state] 11-14-2022 Episodic Residual codes; unclassified (2 sources) Pain; Translations: [Pain, unspecified] 11-26-2022 Episodic Respiratory failure; insufficiency; arrest (adult) (13 sources) Acute respiratory failure; Translations: [Acute respiratory failure with hypoxia] Onset: 10-13-2024 10-08-2024 Episodic Shock (15 sources) Shock; Translations: [Shock, unspecified] Onset: 10-26-2024 10-08-2024 Episodic Spondylosis; intervertebral disc disorders; other back problems (20 sources) Arthritis of right sacroiliac joint; Translations: [Spondylosis without myelopathy or radiculopathy, sacral and sacrococcygeal region] Onset: 12-04-2022 11-14-2022 Chronic Spondylosis; intervertebral disc disorders; other back problems (2 sources) Backache; Translations: [Lumbosacral pain] 11-14-2022 Episodic Superficial injury; contusion (12 sources) Contusion of thoracic spine; Translations: [Contusion of unspecified back wall of thorax, initial encounter] 11-07-2023 Episodic Unclassified (3 sources) ST elevation myocardial infarction (STEMI) Unclassified (3 sources) Presence of stent in coronary artery Unclassified (3 sources) I25.5 - Ischemic cardiomyopathy,I21.1 1 - ST elevation (STEMI) myocardial infarction involving right coronary artery,Z95.5 - Presence of coronary angioplasty implant and graft Past or Other Problems Problem Classification Problem Date Documented Da te Episodic/Chronic Acquired foot deformities (20 sources) Talipes planus; Translations: [Flat foot [pes planus] (acquired), right foot] Onset: 01-19-2023 12-18-2022 Episodic Other aftercare (20 sources) Patient encounter status; Translations: [Other oil heaterman (current) drug therapy] Onset: 07-08-2017 07-08-2017 Episodic Other aftercare (20 sources) Long-term current use of drug therapy; Translations: [Other oil heaterman (current) drug therapy] Onset: 07-08-2017 07-08-2017 Episodic [...] 06-05-2009 06-05-2009 Chronic Other non-traumatic joint disorders (20 sources) Shoulder pain; Translations: [Pain in unspecified shoulder] Onset: 05-04-2023 05-04-2023 Episodic Other non-traumatic joint disorders (3 sources) Pain in right knee; Translations: [Pain in joint, lower leg] Onset: 02-22-2024 02-22-2024 Episodic Other screening for suspected conditions (not mental disorders or infectious disease) (5 sources) Breast finding ; Translations: [Inconclusive mammogram] Onset: 01-07-2024 Episodic Other upper respiratory disease (1 source) Nasal congestion; Translations: [Sinus congestion] Onset: 12-24-2023 Episodic Residual codes; unclassified (20 sources) Family history of malignant neoplasm of ovary; Translations: [Family history of malignant neoplasm of ovary] Onset: 09-08-2016 09-08-2016 Episodic Varicose veins of lower extremity (10 sources) Varicose veins of lower extremity; Translations: [...] in the thigh, and small saphenous vein. Results Test Name Value Interpretation Reference Range Facility Lipid Profileon 12-02-2024 CHOL:HDL 1.99 Normal [facility] Comment on above: Performed By: #### L 500.4100, L500.3400 #### [facility] [address] [place], [address] Cholesterol [Mass/Vol] 72 mg/dL Normal <=200 [facility] Comment on above: Result Comment: Chol esterol level, Desirable <200 mg/dL Borderline high cholesterol 200-239 mg/dL High cholesterol >=240 mg/dL Recommendations of the NCEP Adult Treatment Panel for the following risk-cutoff thresholds for the [place] population. Performed By: #### L 500.4100, L500.3400 #### [facility] [address] [place], [address] Cholesterol in HDL [Mass/Vol] 36 mg/dL Low [facility] Comment on above: Result Comment: Carine onal Cholesterol Education Program (NCEP) guidelines: <40 mg/dL: Low HDL-cholesterol (major risk factor for CHD) >= 60 mg/dL: High HDL-cholesterol (negative risk factor for CHD) HDL-cholesterol is affected by a number of factors, e.g. smoking, exercise, hormones, sex and age. Performed By: #### L 500.4100, L500.3400 #### [facility] [address] [place], [address] Cholesterol in LDL [Mass/Vol] 20 mg/dL Normal [facility] Comment on above: Result Comment: Bord lgycto=123-300 mg/dL Higher Bhxb=264 mg/dL or greater Friedwald Equation for LDL-C Performed By: #### L 500.4100, L500.3400 #### [facility] [address] [place], [address] Cholesterol in VLDL [Mass/Vol] 16 mg/dL Normal 5-40 [facility] Comment on above: Performed By: #### L 500.4100, L500.3400 #### [facility] [address] [place], [address] Triglyceride [Mass/Vol] 81 mg/dL Normal [facility] Comment on above: Result Comment: The drugs N-Acetylcysteine and Metamizole may falsely depress this assay. Normal range: <150 mg/dL Borderline High: 150-199 mg/dL High: 200-499 mg/dL Very High: >500 mg/dL Performed By: #### L 500.4100, L500.3400 #### [facility] [address] [place], [address] Liver Profileon 12-02-2024 Albumin [Mass/Vol] 4.3 g/dL Normal 3.4-4.8 [facility] Comment on above: Performed By: #### L 500.4100, L500.3400 #### [facility] [address] [place], [address] ALK PHOS 68 U/L Normal 35-104 [facility] Comment on above: Performed By: #### L 500.4100, L500.3400 #### [facility] [address] [place], [address] ALT [Catalytic activity/Vol] 34 U/L Normal <=34 [facility] Comment on above: Performed By: #### L 500.4100, L500.3400 #### [facility] [address] [place], [address] AST [Catalytic activity/Vol] 32 U/L Normal <=31 [facility] Comment on above: Performed By: #### L 500.4100, L500.3400 #### [facility] [address] [place], [address] Bilirubin [Mass/Vol] 0.49 mg/dL Normal 0.00-1.30 [facility] Comment on above: Performed By: #### L 500.4100, L500.3400 #### [facility] [address] [place], [address] Bilirubin.direct [Mass/Vol] 0.24 mg/dL Normal 0.00-0.30 [facility] Comment on above: Performed By: #### L 500.4100, L500.3400 #### [facility] [address] [place], [address] Globulin (S) [Mass/Vol] 3.1 g/dL Normal 2.2-4.2 [facility] Comment on above: Performed By: #### L 500.4100, L500.3400 #### [facility] [address] [place], [address] T PROT 7.4 g/dL Normal 5.9-8.4 [facility] Comment on above: Performed By: #### L 500.4100, L500.3400 #### [facility] [address] [place], [address] Hepatic function 2000 panelo n 12-01-2024 Albumin [Mass/Vol] 4.2 g/dL Normal 3.9-4.9 [facility] Comment on above: Order Comment: Speci men Type: BLOOD SPECIMENOrdering Facility: [facility] Address: [address] [place] [address] Performed By: #### 2 4325-3, 38487-1 ####[facility] LABCLIA [id number] [address] [address] [place] ALP [Catalytic activity/Vol] 68 U/L Normal 34-123 [facility] Comment on above: Order Comment: Speci men Type: BLOOD SPECIMENOrdering Facility: [facility] Address: [address] [place] [address] Performed By: #### 2 4325-3, 43600-0 ####[facility] LABCLIA [id number] [facility] [id number], [place] [address] [place] ALT [Catalytic activity/Vol] 30 U/L Normal 7-38 [facility] Comment on above: Order Comment: Speci men Type: BLOOD SPECIMENOrdering Facility: [facility] Address: [address] [place] [address] Performed By: #### 2 432-3, 07431-4 ####[facility] LABCLIA [id number] [facility] [address] [place] [address] [place] AST [Catalytic activity/Vol] 34 U/L Normal 13-35 [facility] Comment on above: Order Comment: Speci men Type: BLOOD SPECIMENOrdering Facility: [facility] Address: [address] [place] [address] Performed By: #### 2 3, 87879-6 ####[facility] LABCLIA [id number] [address], [facility]95 [place] Bilirubin [Mass/Vol] 0.5 mg/dL Normal 0.2-1.3 [facility] Comment on above: Order Comment: Speci men Type: BLOOD SPECIMENOrdering Facility: [facility] Address: [address] [place] [address] Performed By: #### 2 43253, 69108-4 ####[facility] LABCLIA [id number] [address], [facility]95 [place] Bilirubin.conjugated [Mass/Vol] 0.2 mg/dL Normal <0.3 [facility] Comment on above: Order Comment: Speci men Type: BLOOD SPECIMENOrdering Facility: [facility] Address: [address] [place] [address] Performed By: #### 2 4325-3, 26138-2 ####[facility] LABCLIA [id number] [address], [facility]95 [place] Protein [Mass/Vol] 7.3 g/dL Normal 6.3-8.0 [facility] Comment on above: Order Comment: Speci men Type: BLOOD SPECIMENOrdering Facility: [facility] Address: [address] [place] [address] Performed By: #### 2 4325-3, 73698-6 ####[facility] LABCLIA [id number] [facility] [address] [address] [place] Lipid 1996 panelon 5 Cholesterol [Mass/Vol] 72 mg/dL Normal <[address] [facility] Comment on above: Order Comment: Speci men Type: BLOOD SPECIMENOrdering Facility: [facility] Address: [address] [place] [address] Result Comment: <200 mg/dL, Desirable 200-239 mg/dL, Borderline high >239 mg/dL, High Performed By: #### 2 4325-3, 96966-1 ####[facility] LABCLIA [id number] [address], [address] STATES [facility] Cholesterol in HDL [Mass/Vol] 28 mg/dL Low >39 [facility] Comment on above: Order Comment: Speci men Type: BLOOD SPECIMENOrdering Facility: [facility] Address: [address] [place] [address] Result Comment: 40-5 9 mg/dL, Acceptable >59 mg/dL, High: Negative risk factor for coronary heart disease <40 mg/dL, Low: Positive risk factor for coronary heart disease Performed By: #### 2 4325-3, 85573-3 ####[facility] LABCLIA [id number] [place] [id number] [place] Cholesterol in LDL [Mass/Vol] 27 mg/dL Normal <100 [facility] Comment on above: Order Comment: Speci men Type: BLOOD SPECIMENOrdering Facility: [facility] Address: [address] [place] [address] Result Comment: <100 mg/dL, Optimal 100-129 mg/dL, Near optimal/above optimal 130-159 mg/dL, Borderline high 160-189 mg/dL, High >189 mg/dL, Very high Secondary prevention optimal LDL Cholesterol levels are recommended to be <70 mg/dL LDL cholesterol is calculated using the Drew-NIH equation. Performed By: #### 2 4325-3, 01313-1 ####[facility] LABIA [id number] [place] [address] [place] Cholesterol in LDL/Cholesterol in HDL [Mass ratio] 0.96 {ratio} Normal <2.54 [facility] Comment on above: Order Comment: Speci men Type: BLOOD SPECIMENOrdering Facility: [facility] Address: [address] [place] [address] Result Comment: Refe rence: 1. National Cholesterol Education Program ATP III Guideline At-A-Glance Quick Desk Reference: National Heart, Lung, and Blood [place]. National Institutes of Health. 2001: NIH Publication No. 01-3305. 2. An International Atherosclerosis Society position paper: global recommendations for the management of dyslipidemia: executive summary, Atherosclerosis. 2014: 232(2):410-413. Performed By: #### 2 4325-3, 38622-6 ####[facility] LABIA [id number] [place] [address] [place] Cholesterol in VLDL [Mass/Vol] 11 mg/dL Normal <30 [facility] Comment on above: Order Comment: Jose R zuniga Type: BLOOD SPECIMENOrdering Facility: [facility] Address: [address] [place] [address] Performed By: #### 2 4325-3, 91093-0 ####[facility] LABIA [id number] [place] [id number] [place] Cholesterol non HDL [Mass/Vol] 44 mg/dL Normal <130 [facility] Comment on above: Order Comment: Jose R efrain Type: BLOOD SPECIMENOrdering Facility: [facility] Address: [address] [place] [address] Result Comment: <130 mg/dL, Optimal 130-159 mg/dL, Near optimal/above optimal 160-189 mg/dL, Borderline high 190-219 mg/dL, High >219 mg/dL, Very high Secondary prevention optimal non HDL Cholesterol levels are recommended to be <100 mg/dL Performed By: #### 2 4325-3, 91642-6 ####[facility] LABCLIA [id number] [address] [place] Cholesterol.total/Choles terol in HDL [Mass ratio] 2.57 {ratio} Normal <5.10 [facility] Comment on above: Order Comment: Speci men Type: BLOOD SPECIMENOrdering Facility: [facility] Address: [address] [place] [address] Performed By: #### 2 4325-3, 50083-8 ####[facility] LABIA [id number] [address] FASTING TIME 12 hrs Normal [facility] Comment on above: Order Comment: Speci men Type: BLOOD SPECIMENOrdering Facility: [facility] Address: [address] [place] [address] Performed By: #### 2 4325-3, ####[facility] LABIA [id number] [address] Triglyceride [Mass/Vol] 81 mg/dL Normal <150 [facility] Comment on above: Order Comment: Speci men Type: BLOOD SPECIMENOrdering Facility: [facility] Address: [address] [place] [address] Result Comment: <150 mg/dL, Normal 150-199 mg/dL, Borderline high 200-499 mg/dL, High >499 mg/dL, Very high Performed By: #### 2 4325-3, 62593-8 ####[facility] LABCLIA [id number] [place] [id number] [place] CNPHailee 11-01-2024 CNPN Telephone (FAMPWS) LUCAS ASTUDILLO ([id number]) 1955 F Date Time Provider Department 11/01/24 EUGENIO PERALTA [facility] During your visit today, we recorded the following information about you: Qiana Zuñiga RN 11/01/2024 10:34 AM Signed Pt saw Dr. Peralta on 10/26/24 and he discussed with her repeating her Lipid panel. Pt thought she had an order from [facility] but she does not. Per Dr. Peralta's office note on 10/26, he wanted pt to repeat her lipid profile in 8 weeks (around 12/19). Order pended. Pt aware to be fasting. Pt has follow up appt on 12/[address] Peralta. Eugenio Peralta MD 11/01/2024 11:57 AM Signed Orders placed. Allergies As of Date: 11/01/2024 Noted Allergy Reaction ADHESIVE TAPE-SILICONES 10/28/2022 2 - Rash Comments: Per patient developed extensive rash from adhesive monitor sticker after endoscopy POISON AKANKSHA 07/28/2005 Date Reviewed: 10/26/2024 Reviewed by: Piedad Morton - Fully Assessed Reason for Visit: Lab Orders [1688] Primary Visit Diagnosis:Coronary artery disease involving [place] heart without angina pectoris, unspecified vessel or lesion type [I25.10] Other Visit Diagnoses:Hyperlipid emia, mixed [E78.2] ST elevation myocardial infarction involving right coronary artery (HCC) [I21.11] S/P right coronary artery (RCA) stent placement [Z95.5] Order(s):LIPID PANEL, FASTING [SQLIPB] Order #: [id number] FUTURE HEPATIC FUNCTION PNL [SQHFP] Order #: [id number] FUTURE Prescriptions as of 11/01/2024 - losartan (COZAAR) 25 mg tablet Take 25 mg by mouth once daily. - metoprolol succinate ER (TOPROL XL) 50 mg 24 hr tablet Take 50 mg by mouth once daily. - rosuvastatin (CRESTOR) 40 mg tablet Take 40 mg by mouth once daily. - ticagrelor (BRILINTA) 90 mg tablet Take 90 mg by mouth two times a day. - aspirin, enteric coated (ASPIRIN, ENTERIC COATED) 81 mg EC tablet Take 81 mg by mouth once daily. - clobetasol (TEMOVATE) 0.05 % cream Apply to affected area 2x/day for 2 weeks, then 1x/day for a week, than 1-3x/week for maintenance. - estradiol (ESTRACE) 0.01 % (0.1 mg/gram) vaginal cream Use small pea sized amount at vaginal opening twice a week. - triamcinolone acetonide (KENALOG) 0.1 % cream Apply 1 application to affected area two times a day. - pantoprazole DR (PROTONIX) 40 mg tablet Take 1 tablet by mouth once daily. - tiZANidine (ZANAFLEX) 4 mg tablet Take 1 tablet by mouth every 8 hours as needed (muscle spasms). - calcium carbonate/vitamin d3(CALCIUM 500 WITH VITAMIN D 500 MG-125 UNIT TAB) Take one(1) tablet twice daily. Problem List As Of Date 11/01/2024 Noted Resolved MIXED HYPERLIPIDEMIA [E78.2] 10/07/2005 RHINITIS [...] [N18.31] 11/14/2022 Arthritis of right sacroiliac joint [M46.1] 12/04/2022 Plantar fasciitis [M72.2] 01/19/2023 Flat feet, bilateral [M21.41, M21.42] 01/19/2023 Acute shoulder pain [M25.519] 05/04/2023 ST elevation myocardial infarction involving ri*10/26/2024 Ischemic cardiomyopathy [I25.5] 10/26/2024 Shock (HCC) [R57.9] 10/26/2024 Encounter Status:Closed by SHANE DAVID on 11/01/24 [facility] CR - History AND Physicalon 11-01-2024 CR - History & Physical [facility] [address] [facility] [place] [address] CR - History Physical MR#: [id number] Acct: [id number] Name: LUCAS ASTUDILLO Rep #: [id number] : 1955 69 From: Luis Renae BS, RVT PCP: Dr. Eugenio Peralta MD DOS: 11/01/24 CR - History Physical General Arrival date:: 11/01/24 Arrival time:: 12:50 Date of Referral:: 10/20/24 Date of CR Evaluation:: 11/01/24 Referring Physician: Dr. Musa Primary Diagnosis: PCI w/stenting, [place] STEMI<12 months History of Present Cardiac Event Onset Date Acute Myocardial Infarction within 12 months:: Yes PTCA or coronary stenting:: Yes (onset 10/08/2024) Vessel: RCA Medications Ambulatory Orders ???Medication ???Instructions ???Recorded pantoprazole 40 mg tablet,delayed 40 mg PO DAILY 02/26/19 release calcium carbonate 500 mg PO QDAY PRN dyspepsia 01/26 cholecalciferol (vitamin D3) 10 10 mcg PO QDAY PRN supplement 12/30 mcg (400 unit) capsule aspirin 81 mg tablet,delayed 81 mg PO QDAY 10/20/24 release (Adult Aspirin Regimen) losartan 25 mg tablet 25 mg PO QDAY #90 tabs 10/20/24 metoprolol succinate 50 mg 50 mg PO QDAY #90 tabs 10/20/24 tablet,extended release 24 hr rosuvastatin 40 mg tablet 40 mg PO QDAY #90 tabs 10/20/24 ticagrelor 90 mg tablet 90 mg PO BID #180 tabs 10/20/24 Allergies Allergies No Known Allergies Allergy (Verified 10/20/24 09:27) Sleep Disorder Evaluation Hx of Sleep Apnea: No Do you snore loudly (louder than talking or can be heard through closed doors)?: Yes Do you often feel tired/ fatigued/ sleepy during daytime?: No Has anyone observed you stop breathing during sleep?: No History of Hypertension (for STOP score): No STOP Results: Negative Advanced Directives Advanced Directives Do you have a Healthcare Power of Property Staff Accountant?: Yes Living Will: Yes Advance Directives Information Provided: No Advance Directives on File: No DNR Order?:: No Past Medical History Covid-19 Screening Physicial Symptoms Other Clinical Concerns Exposure Risk Pertinent Comorbidities 65 years or older:: Yes Has a serious heart condition:: Yes Past Medical Illness Past Medical History (Updated 10/20/24 @ 09:50 by Tova Latif PA, PA) ST elevation (STEMI) myocardial infarction I21.3 Cardiomyopathy, ischemic I25.5 Shock R57.9 HFrEF (heart failure with reduced ejection fraction) I50.20 Cardiac arrest I46.9 Chest pain R07.9 Acute hypoxic respiratory failure J96.01 Flash pulmonary edema J81.0 ST elevation myocardial infarction (STEMI) of inferior wall (10/08/24) I21.19 Past Surgical History Past Surgical History Stented coronary artery (10/08/24) Z95.5 [place] 3.8 X 18 mm JACINTA overlapping with [place] 3.5 X 22 mm JACINTA to mid RCA using IVUS 10/08/2024 H/O section Z98.891 Hx of tubal ligation Z98.51 Surgical History: no surgical history Family History Summary Family History Other CAD (coronary artery disease) COPD (chronic obstructive pulmonary disease) Cancer Diabetes Heart disease Hypertension Myocardial infarction Social History Smoking History Smoking Status: Never smoker Alcohol Use Alcohol Usage: No Substance Abuse Hx Substance Use: No Occupation Occupation (List type of work in comments):: Retired Social Environment Status Marital Status: Current Living Arrangements Living Environment:: Spouse Children How many children do you have?: 1 Do any of your children live nearby?: Yes Safety Do you feel safe in your surroundings?: Yes Assistance Do you need any assistance at home?: no Review of Systems Review of Systems Hints Review of Present Symptoms: Reports Shortness of Breath with Exertion, PVD, Operative Discomfort, Dizziness/Lightheade dness, Fatigue, Heart Arrhythmia/Irregular ities, Appetite - Normal and Sleep - Normal; Denies Shortness of Breath at Rest, Angina, Wound Healing, Appetite - Special Diet or Sexual Changes Pain Is Patient Pain Free?: Yes Risk Factor Assessment Chief Complaint Chief Complaint: PCI w/stenting, [place] STEMI<12 months Vital Signs Pulse Ox: 98 Pulse Pulse Rate: 60 Hypertension Blood Pressure Sitting - Right Arm: 107/72 Stress Stress: Home/Family Obesity Height: 5 ft 6 in Weight:: 189 lb Weight in Pounds: 189.0 lbs Body Mass Index (BMI): 30.4 Nutritional Referral for Obesity: Yes Physical Inactivity Physical Inactivity: Reg Exercise 30 min/day Risk Stratification Risk Guidelines: Lowest Risk: Risk Factor for Smoking, Moderate Risk: Risk Factor for Dyslipidemia, Risk Factor for Diabetes, Risk Factor for Hypertension, Risk Factor for Sedentary Lifestyle and Risk Factor for Depression and Highest Risk: Risk Factor for Obesity For (more content not included)... Normal [facility] Cardiac rehabilitation evalu ation reportOrdered By: Luis Sullivan on 11-01-2024 Study report [facility] Cardiac Rehab [address] [place] [address] CR - History & Physical MR#: [id number] Acct: [id number] Name: LUCAS ASTUDILLO Rep #:[id number] : 1955 69 From: Luis Renae BS, RVT PCP: Dr. Eugenio Peralta MD DOS: CR - History & Physical General Arrival date:: 11/01/24 Arrival time:: 12:50 Date of Referral:: 10/20/24 Date of CR Evaluation:: 11/01/24 Referring Physician: Dr. Musa Primary Diagnosis: PCI w/stenting, [place] STEMI<12 months History of Present Cardiac Event Onset Date Acute Myocardial Infarction within 12 months:: Yes PTCA or coronary stenting:: Yes (onset 10/08/2024) Vessel: RCA Medications Ambulatory Orders ?Medication ?Instructions ?Recorded pantoprazole 40 mg tablet,delayed 40 mg PO DAILY 02/26 release calcium carbonate 500 mg PO QDAY PRN dyspepsia 01/27/24 cholecalciferol (vitamin D3) 10 10 mcg PO QDAY PRN sup plement 01/27/24 mcg (400 unit) capsule aspirin 81 mg tablet,delayed 81 mg PO QDAY 10/20/24 release (Adult Aspirin Regimen) losartan 25 mg tablet 25 mg PO QDAY #90 tabs 10/20 metoprolol succinate 50 mg 50 mg PO QDAY #90 tabs 09/28 07/22 tablet,extended release 24 hr rosuvastatin 40 mg tablet 40 mg PO QDAY #90 tabs 10/20 ticagrelor 90 mg tablet 90 mg PO BID #180 tabs 10/20 Allergies Allergies No Known Allergies Allergy (Verified 10/20/24 09:27) Sleep Disorder Evaluation Hx of Sleep Apnea: No Do you snore loudly (louder than talking or can be heard through closed doors)?:Yes Do you often feel tired/ fatigued/ sleepy during daytime?: No Has anyone observed you stop breathing during sleep?: No History of Hypertension (for STOP score): No STOP Results: Negative Advanced Directives Advanced Directives Do you have a Healthcare Power of Property Staff Accountant?: Yes Living Will: Yes Advance Directives Information Provided: No Advance Directives on File: No DNR Order?:: No Past Medical History Covid-19 Screening Physicial Symptoms Other Clinical Concerns Exposure Risk Pertinent Comorbidities 65 years or older:: Yes Has a serious heart condition:: Yes Past Medical Illness Past Medical History (Updated 10/20/24 @ 09:50 by Tova AYOUB, PA) ST elevation (STEMI) myocardial infarction I21.3 Cardiomyopathy, ischemic I25.5 Shock R57.9 HFrEF (heart failure with reduced ejection fraction) I50.20 Cardiac arrest I46.9 Chest pain R07.9 Acute hypoxic respiratory failure J96.01 Flash pulmonary edema J81.0 ST elevation myocardial infarction (STEMI) of inferior wall (10/08/24) I21.19 Past Surgical History Past Surgical History Stented coronary artery (10/08/24) Z95.5 [place] 3.8 X 18 mm JACINTA overlapping with [place] 3.5 X 22 mm JACINTA to mid RCA using IVUS 10/08/2024 H/O section Z98.891 Hx of tubal ligation Z98.51 Surgical History: no surgical history Family History Summary Family History Other CAD (coronary artery disease) COPD (chronic obstructive pulmonary disease) Cancer Diabetes Heart disease Hypertension Myocardial infarction Social History Smoking History Smoking Status: Never smoker Alcohol Use Alcohol Usage: No Substance Abuse Hx Substance Use: No Occupation Occupation (List type of work in comments):: Retired Social Environment Status Marital Status: Current Living Arrangements Living Environment:: Spouse Children How many children do you have?: 1 Do any of your children live nearby?: Yes Safety Do you feel safe in your surroundings?: Yes Assistance Do you need any assistance at home?: no Review of Systems Review of Systems Hints Review of Present Symptoms: Reports Shortness of Breath with Exertion, PVD, Operative Discomfort, Dizziness/Lightheade dness, Fatigue, Heart Arrhythmia/Irregular ities, Appetite - Normal and Sleep - Normal; Denies Shortness of Breath at Rest, Angina, Wound Healing, Appetite - Special Diet or Sexual Changes Pain Is Patient Pain Free?: Yes Risk Factor Assessment Chief Complaint Chief Complaint: PCI w/stenting, [place] STEMI<12 months Vital Signs Pulse Ox: 98 Pulse Pulse Rate: 60 Hypertension Blood Pressure Sitting - Right Arm: 107/72 Stress Stress: Home/Family Obesity Height: 5 ft 6 in Weight:: 189 lb Weight in Pounds: 189.0 lbs Body Mass Index (BMI): 30.4 Nutritional Referral for Obesity: Yes Physical Inactivity Physical Inactivity: Reg Exercise 30 min/day Risk Stratification Risk Guidelines: Lowest Risk: Risk Factor for Smoking, Moderate Risk: Risk Factor for Dyslipidemia, Risk Factor for Diabetes, Risk Factor for Hypertension,Risk Factor for Sedentary Lifestyle and Risk Factor for Depression and Highest Risk: Risk Factor for Obesity For Smoking Smoking Risk Guidelines For Dyslipidemia Dyslipidemia Risk Guidelines For Diabetes Mellitus Diabetes Risk Guidelines For Obesity/Overweight Obesity/Overweight Risk Guidelines For Hypertension Hypertension Risk Guidelines For Sedentary Lifestyle Sedentary Lifestyle Risk Guide (more content not included)... [facility] No Panel InformationOrdered By: Luis Sullivan on 11-01-[address] [facility] Cardiac Rehab [address] [place] [address] CR - Individual Treatment Plan MR#: [id number] Acct: [id number] Name: LUCAS ASTUDILLO Rep #:[id number] : 1955 69 From: Luis Renae BS, RVT PCP: Dr. Eugenio Peralta MD DOS: Diagnosis General Information Admitting Diagnosis: PCI w/stenting, [place] STEMI<12 months Personal Learning Style:: Audio/Visual Barriers to Learning: No Barriers Stage of change r/t lifestyle modifications:: Contemplation Gave educational material for:: Treating Heart Disease, How The Heart Works, What it means to have Heart Disease, How Coronary Artery Disease is Diagnosed, Heart Procedures, What Heart Medications Do, Risk Factors & Modifications, Living an Active Life, Nutrition, Emotions & Heart Disease, Stress Management & Relaxation and Sleep Disorders & Heart Disease Education/Goals Cardiac Rehabilitation Goals Personal Goals: Initial Assessment: Improve management of stress and emotions, Improve energy level, Participate in home exercise program, Improve knowledge ofcardiac disease, Improve muscle strength and endurance, Improve diet and eating habits (eat healthier) and Control risk factors (learn risk factor modification) Scale for measuring improvement of personal goals Diagnosis & Disease Process Outcomes/Goals: Pt IDs own risk factors & lifestyle modifications by Session 10,Verbalizes symptoms of angina & response by session 3., Pt independently managesand Other Additional Outcomes/Goals: Plan/Interventions: Assist Pt to ID & engage in lifestyle modification to reduceCVD risk, Instruct on individual risk factors, Review symptoms of angina & emergency actions, Review secondary diagnosis & identify educational needs. and Other see comment 30 day Reassessments:: Not Met 30 day Reassessments:: Not Met 30 day Reassessments:: Not Met 30 day Reassessments:: Not Met Final Reassessments:: Not Met Safety Referral to Physical Therapy: No Referral to [facility] Case Management: No Fall Risk Assessed:: Yes Assistive Devices:: None Exercise - Initial Assessment Visit Date of Eval: 11/01/24 (initial eval ) Mets: Pre-: >3 METS for 30 minutes by discharge, >5 METS for 30 minutes by discharge, >7 METS for 30 minutes by discharge and Unable to meet goal due to: (see comment below) Physician Prescribed Exercise Modalities: Treadmill, Rower, Schwinn Airdyne AD-7, SciFit Stepper, SciFit Pro-II Ergometer and [employer] Lateral Willey Frequency: 3x/week for 12 weeks [36 sessions] Intensity: 60-80% of age predicted maximum heart rate reserve Duration: 30 - 45 minutes Current METSs:: 3 Target Heart Rate:: 98-113 Resting Blood Pressure: 107/72 EKG Type: Sr w/ marked sinus arrhythmia Outcomes & Goals Goals:: Verbalizes understanding of THR, RPE & goal METS by session 6, Documentsin home exercise log/reports 30 min aerobic 5 day/wk by DC, Demonstrates accurate pulse taking by DC and Other additional outcome/goals: see below Intervention & Plan Exercise Program Goals: Instruct on personal THR & RPE, Instruct on MET level & personal MET goal, Show patient to take own pulse /validate performance until accurate, Instruct on home exercise and Other additional plan/int Physical Activity Home Exercise Physical Activity - Home Exercise: Safe Exercise, Warm-up, Self-monitoring, Cool-Down, Home Exercise > 30 min Daily and Sitting Time <3 hours/daily Outcomes & Goals Outcomes/Goals: Demonstrates correct Warm-up/exercise Cool-Down (S3) if = 2.5 METs, Verbalizes symptoms of exercise intolerance by Session 3 (S3), Demonstratesafe equipment use (S3) & follows exercise prescrition (6) and Other: See below Intervention & Plan Plan/Intervention: Instruct warm-up & cool-down if exercising at > 2 METs, Instruct on symptoms of exercise intolerance & actions to take, Instruct & monitor on saf, Assess intial functional capacity & safety risk and Other See below Nutrition - Initial Assessment Program Goals Nutrition Program Goals Patient has diagnosis of Hyperlipidemia (ICD E78)?: No Visit Date of Eval: 11/01/24 (initial eval ) Cholesterol/Lipids (Other Core Measures) Determine presence & major risk factors that modify LDL goal: Hypertension or hypertensive medication, Low HDL cholesterol <40 mg/dL*, Family history of premature CHD in Male < 55 years: female <65 yearsFa and Age men > 45 years; women >/= 55 years Outcomes/Goals: Pt IDs own risk factors & lifestyle modifications by Session 10,Verbalizes symptoms of angina & response by session 3., Pt independently managesand Other Additional Outcomes/Goals: Intervention/Plan: Advocate for lipid panel cholesterol medication if applicable, Instruct on personal lipid levels & lipid goals/NCEP guidelines, Instruct on cholesterol and Other additional plan/int Referral to dietitian:: Yes Diabetes (Other Core Measures) Diabetes Type: Not Applicable Weight Mgt (Other Care) Height: 5 ft 6 in Weight:: 189 lb BMI: 30.4 Diagnosis Overweight/Obesity BMI> 30% ICD-10 E66: Yes Diagnosis High BMI/Morbid Obesity BMI> 35% ICD-10 Z68: No Outco (more content not included)... [facility] 10-26-2024 [facility] LUCAS ASTUDILLO ([id number]) 1955 F Date Time Provider Department 10/26/24 10:40 AM [facility] During your visit today, we recorded the following information about you: Pulse Blood pressure Weight 62/minute 102/70 84.6 kg Eugenio Peralta MD 10/26/2024 11:29 AM Signed - Continue taking aspirin and Brilinta (ticagrelor) daily for one year to help keep your stent open. - Continue metoprolol as prescribed to reduce your heart?s workload and support recovery. - Continue rosuvastatin daily to lower your cholesterol and stabilize plaque. - Repeat a chest x-ray today to confirm your lungs are clear and check for any rib fractures. - Attend your cardiac rehabilitation initial consultation on the and follow their program to gradually rebuild strength. - Maintain gentle walking (you?re averaging ~6,000 steps) but avoid overdoing it until rehab guidance; aim for early-morning or late-evening walks in cooler, less humid conditions. - Watch for any return of chest pain, worsening shortness of breath, or new leg swelling--seek emergency care or notify the office right away if these occur. - Plan to return for a follow-up visit in about 8 weeks, after your next appointment with [facility], to review progress and adjust your care as needed. - If you experience ongoing emotional distress or increased irritability, let us know so we can offer additional support. Eugenio Peralta MD 10/26/2024 12:03 PM Signed Lucas Astudillo is a 69-year-old female with a history of CAD, presenting for follow-up after a recent STEMI and hospitalization. HPI STEMI: - Admitted on 10/08 at [facility] for STEMI, CHF, ischemic cardiomyopathy, and possible shock. - Experienced chest pain for 2 days prior to admission, initially attributed to acid reflux. - Cardiac cath revealed 100% blockage of the mid-RCA; drug-eluting stent placed with good results. - No significant disease in remaining coronary arteries. - Developed fever and hypotension post-procedure; EF was 20%. - Transferred to [facility] for further management. - Extubated at [facility]; experienced hemoptysis post-extubation. - Discharged on Augmentin, Brilinta, aspirin, metoprolol, and rosuvastatin. - Scheduled for cardiac rehab on the . - Family history of heart disease. - Reports brief episodes of dizziness. - Experiencing some emotional distress and irritability post-event. Aspiration Pneumonia: - Developed significant secretions and low pulse ox during initial hospitalization; intubated and placed on a ventilator. - Treated with IV antibiotics for suspected aspiration pneumonia. - Completed course of Augmentin at home. - Reports improvement in cough, which was present before the event. MEDICATIONS: Current Outpatient Medications Medication Sig losartan (COZAAR) 25 mg tablet Take 25 mg by mouth once daily. metoprolol succinate ER (TOPROL XL) 50 mg 24 hr tablet Take 50 mg by mouth once daily. rosuvastatin (CRESTOR) 40 mg tablet Take 40 mg by mouth once daily. ticagrelor (BRILINTA) 90 mg tablet Take 90 mg by mouth two times a day. aspirin, enteric coated (ASPIRIN, ENTERIC COATED) 81 mg EC tablet Take 81 mg by mouth once daily. pantoprazole DR (PROTONIX) 40 mg tablet Take [...] to affected area two times a day. tiZANidine (ZANAFLEX) 4 mg tablet Take 1 tablet by mouth every 8 hours as needed (muscle spasms). calcium carbonate/vitamin d3(CALCIUM 500 WITH VITAMIN D 500 MG-125 UNIT TAB) Take one(1) tablet twice daily. No current facility-administere d medications for this visit. ALLERGIES: ALLERGIES Allergen [...] EGD 10/20/2022 EGD TRANSORAL BIOPSY SINGLE/MULTIPLE 09/06/2007 ESOPHAGOGASTRODUODEN OSCOPY TRANSORAL DIAGNOSTIC 10/05/2017 EGD LIG/TRNSXJ FLP TUBE ABDL/VAG APPR UNI/BI Tubal ligation N (more content not included)... Normal [facility] XR CHEST 2V FRONTAL/LATon XR CHEST 2V FRONTAL/LAT * * *Final Repor t* * * DATE OF EXAM: Oct 26 2024 11:51AM WOX [id number] - XR CHEST 2V FRONTAL/LAT / PROCEDURE REASON: Aspiration pneumonia due to gastric secretions, unspecified laterality, unspecif * * * * Physician Interpretation * * * * EXAMINATION: CHEST RADIOGRAPH (2 VIEW FRONTAL and LATERAL) CLINICAL HISTORY: Aspiration pneumonia due to gastric secretions, unspecified laterality, unspecified part of lung (HCC) MQ: XC2_6 EXAM DATE/TIME: 10/26/2024 11:51 AM COMPARISON: Chest X-ray on 03/31/2023 RESULT: Lines, tubes, and devices: None. Lungs and pleura: No consolidation. No lung mass. No pleural effusion. No pneumothorax. Cardiomediastinal silhouette: Stable cardiomediastinal silhouette. Bones and soft tissues: There are degenerative changes in the spine. IMPRESSION: No acute radiographic abnormality. Umbrella Mender: TARAN Transcribe Date/Time: Oct 26 2024 2:06P Dictated by : JESUSITA RODRIGUEZ MD This examination was interpreted and the report reviewed and electronically signed by: JESUSITA RODRIGUEZ MD on Oct 26 2024 2:07PM EST [id number] Normal [facility] XR Chest PA and Lateralon IMPRESSION: No acute radiographic abnormality. Umbrella Mender: PSCB Transcribe Date/Time: Oct 26 2024 2:06P Dictated by : JESUSITA RODRIGUEZ MD This examination was interpreted and the report reviewed and electronically signed by: JESUSITA RODRIGUEZ MD on Oct 26 2024 2:07PM EST DIVISION OF RADIOLOGY * * *Final Report* * * DATE OF EXAM: Oct 26 2024 11:51AM WOX [id number] - XR CHEST 2V FRONTAL/LAT / PROCEDURE REASON: Aspiration pneumonia due to gastric secretions, unspecified laterality, unspecif * * * * Physician Interpretation * * * * EXAMINATION: CHEST RADIOGRAPH (2 VIEW FRONTAL & LATERAL) CLINICAL HISTORY: Aspiration pneumonia due to gastric secretions, unspecified laterality, unspecified part of lung (HCC) MQ: XC2_6 EXAM DATE/TIME: 10/26/2024 11:51 AM COMPARISON: Chest X-ray on 03/31/2023 RESULT: Lines, tubes, and devices: None. Lungs and pleura: No consolidation. No lung mass. No pleural effusion. No pneumothorax. Cardiomediastinal silhouette: Stable cardiomediastinal silhouette. Bones and soft tissues: There are degenerative changes in the spine. DIVISION OF RADIOLOGY Provider, [facility] [place] - 10/26/2024 * * *Final Report* * * DATE OF EXAM: Oct 26 2024 11:51AM WOX [id number] - XR CHEST 2V FRONTAL/LAT / PROCEDURE REASON: Aspiration pneumonia due to gastric secretions, unspecified laterality, unspecif * * * * Physician Interpretation * * * * EXAMINATION: CHEST RADIOGRAPH (2 VIEW FRONTAL & LATERAL) CLINICAL HISTORY: Aspiration pneumonia due to gastric secretions, unspecified laterality, unspecified part of lung (HCC) MQ: XC2_6 EXAM DATE/TIME: 10/26/2024 11:51 AM COMPARISON: Chest X-ray on 03/31/2023 RESULT: Lines, tubes, and devices: None. Lungs and pleura: No consolidation. No lung mass. No pleural effusion. No pneumothorax. Cardiomediastinal silhouette: Stable cardiomediastinal silhouette. Bones and soft tissues: There are degenerative changes in the spine. IMPRESSION IMPRESSION: No acute radiographic abnormality. Umbrella Mender: PSCB Transcribe Date/Time: Oct 26 2024 2:06P Dictated by : JESUSITA RODRIGUEZ MD This examination was interpreted and the report reviewed and electronically signed by: JESUSITA RODRIGUEZ MD on Oct 26 2024 2:07PM EST [facility] Radiology Study observation (narrative) [facility] XR Chest PA and LateralOrder ed By: Ccf Provider on 10-26-2024 [facility]UD[facility] ([id number]) 1955 F Date Time Provider Department 10/25/24 EUGENIO PERALTA [facility] During your visit today, we recorded the following information about you: Yadi Murray LPN 10/25/2024 10:17 AM Signed TRANSITION CARE MANAGEMENT (TCM) 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 Patient identified by name and . TRANSITION CARE MANAGEMENT INITIAL OUTREACH DOCUMENTATION: No data to display SUMMARY: -Pt discharged from [facility] on 10/11/2024, transferred from [facility] had cardiac arrest, [place] . -Admitted for: temp diagnosed with pneumonia Do you have a hospital follow up appointment with your PCP? Appointment on 10/26/2024 with PCP. Yes. Remind patient of appointment date, time, and location. If not within 14 calendar days of discharge - please reschedule accordingly. MEDICATIONS: Many patients have questions or concerns about their medications once they are home. Were you prescribed any new medications? Yes, began several new medications, Losartan 25 mg one daily, Brilinta 90 mg one tablet twice daily, ASA 81 mg one daily, Metroprolol Succinate 50 mg one daily, Rosuvastatin 40 mg one tablet daily Were you told to hold any medications? No Were any of your medications discontinued? Yes, Lisinopril stopped caused cough Do you have any questions about getting or taking your medications? No Your discharge instructions/After visit Summary (AVS) are important in guiding you through the recovery process. Is there anything I might help you understand? Yes, discharge instructions/AVS, no questions. . Do you have all the necessary equipment and supplies at home? No, follow site specific process to secure durable medical equipment and/or supplies for the patient, handoff to RN/DENTAL TECHNOLOGIST, or LIP Medical records from recent hospitalization: Care Everywhere Allergies As of Date: 10/25/2024 Noted Allergy Reaction ADHESIVE TAPE-SILICONES 10/28/2022 2 - Rash Comments: Per patient developed extensive rash from adhesive monitor sticker after endoscopy POISON AKANKSHA 07/28/2005 Date Reviewed: 03/14/2024 Reviewed by: Shane David LPN - Fully Assessed Reason for Visit: Transition Of Care [4074] Prescriptions as of 11/03/2024 - losartan (COZAAR) 25 mg tablet Take 25 mg by mouth once daily. - metoprolol succinate ER (TOPROL XL) 50 mg 24 hr tablet Take 50 mg by mouth once daily. - rosuvastatin (CRESTOR) 40 mg tablet Take 40 mg by mouth once daily. - ticagrelor (BRILINTA) 90 mg tablet Take 90 mg by mouth two times a day. - aspirin, enteric coated (ASPIRIN, ENTERIC COATED) 81 mg EC tablet Take 81 mg by mouth once daily. - clobetasol (TEMOVATE) 0.05 % cream Apply to affected area 2x/day for 2 weeks, then 1x/day for a week, than 1-3x/week for maintenance. - estradiol (ESTRACE) 0.01 % (0.1 mg/gram) vaginal cream Use small pea sized amount at vaginal opening twice a week. - triamcinolone acetonide (KENALOG) 0.1 % cream Apply 1 application to affected area two times a day. - pantoprazole DR (PROTONIX) 40 mg tablet Take 1 tablet by mouth once daily. - tiZANidine (ZANAFLEX) 4 mg tablet Take 1 tablet by mouth every 8 hours as needed (muscle spasms). - calcium carbonate/vitamin d3(CALCIUM 500 WITH VITAMIN D 500 MG-125 UNIT TAB) Take one(1) tablet twice daily. 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 [place] [address] OFFICE VISIT Date of Service: 10/20/24 MR#: [id number] Acct: [id number] Name: YONNYLUCAS BROWNE Rep #: [id number] : 1955 Provider: MEGA Jarvis Age/Sex: 69/F Location: [facility] Status: Signed HPI HPI History of Present Illness Details: This 68-year-old white female presented to the emergency room at [facility] with the chief complaint of chest pain, STEMI alert was called on arrival with the EKG showing ST elevations in the inferior leads. Patient had been complaining of chest pain for the last 2 days that she had attributed to acid reflux disease. Patient was taken emergently to the [facility], shortly after arrival to the [facility] the patient went into pulseless V. tach and was shocked and cardioverted to sinus tachycardia, her pulse ox was noted to be low and decision was made to intubate the patient, patient had significant secretions that made intubation difficult. Patient was placed on the ventilator and a cardiac catheterization was performed which showed 100% blockage in the mid RCA, a drug-eluting stent was placed in the right coronary artery with good result. There was no significant coronary disease in the remaining coronary arteries. Patient was transferred to ICU, later that same day she developed a high temperature and was placed on IV antibiotics with concern for sepsis. Echocardiogram was obtained which showed an ejection fraction of 20%, cardiology felt it was in the patient's best interest to transfer her to a tertiary facility where a mechanical circulatory support device could be used if necessary. [facility] agreed to accept the patient. I do not have the medical records from [facility]. However she does note that she was told her ejection fraction did improve to 42%. Her chest is still sore from her chest compressions. She is wondering if she needs another chest x-ray. She is also having issues with her memory and writing. This is a newer finding. For her. In looking back at her history she does have an issue with acid reflux however she also notes this has been going on for a long period of time. She does note that she does have shortness of breath with brisk walking. This was before her stent. She has not done any walking since she has been home. 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: No Accompanied by: Is patient in pain?: Yes (chest soreness s/p CPR) Pain scale (1-10): 4 Allergies No Known Allergies Allergy (Verified 10/20/24 09:27) Medications ???Medication ???Instructions ???Recorded ???Confirmed ???Type pantoprazole 40 mg tablet,delayed 40 mg PO DAILY 02/26/19 10/20/24 History release calcium carbonate 500 mg PO QDAY PRN dyspepsia 01/2610/20/24 History cholecalciferol (vitamin D3) 10 10 mcg PO QDAY PRN supplement 12/3010/20/24 History mcg (400 unit) capsule aspirin 81 mg tablet,delayed 81 mg PO QDAY 10/20/24 10/20/24 Hi story release (Adult Aspirin Regimen) losartan 25 mg tablet 25 mg PO QDAY #90 tabs 10/20/24 Rx metoprolol succinate 50 mg 50 mg PO QDAY #90 tabs 10/20/24 Rx tablet,extended release 24 hr rosuvastatin 40 mg tablet 40 mg PO QDAY #90 tabs 10/20/24 Rx ticagrelor 90 mg tablet 90 mg PO BID #180 tabs 10/20/24 Rx Ejection fraction %: 20 Have you fallen in the past year?: No Nurse's Note: Requests refills to [facility]. [facility] Medical History (Updated 10/20/24 @ 09:50 by Tova AYOUB, PA) ST elevation (STEMI) myocardial infarction Cardiomyopathy, ischemic Shock HFrEF (heart failure with reduced ejection fraction) Cardiac arrest Chest pain Acute hypoxic respiratory failure Flash pulmonary edema ST elevation myocardial infarction (STEMI) of inferior wall (10/08/24) Surgical History Stented coronary artery (10/08/24) H/O section Hx of tubal ligation Family History Other CAD (coronary artery disease) COPD (chronic obstructive pulmonary disease) Cancer Diabetes Heart disease Hypertension Myocardial infarction Social History (Updated 10/20/24 @ 09:30 by Daisy Sullivan) Smoking Status: Never smoker alcohol intake: never substance use type: does not use ROS Co (more content not included)... Normal [facility] Culture, Blood (WB)on 2024 CUB No growth in 5 days. Normal [facility] Comment on above: Performed By: #### L 300.3900, L300.4310, L501.4021, L500.2500, L100.0100 #### [facility] [address] [place], [address] 36on 2024 36 PC to patient, she notes she's just tired. She didn't sleep well last night after reading some of her reports. She denies chest pain. She does note an annoying dry cough, she is finishing a course of antibiotics but noted since her PCP put her on lisinopril she has had a dry cough despite OTC measures. We will discontinue lisinopril and start losartan 25mg daily. We reviewed the importance of uninterrupted DAPT. She will f/u with cardiology in [place] as scheduled 10/20/24. She will call our office sooner if needed. [facility] ECG 12-LEADon 2024 ECG 12-LEAD IMPRESSION: Sinus rhythm Inferior infarct, recent Abnrm T, consider ischemia, anterolateral lds Electronically Signed On 2024 13:54:14 EDT by Dylan Flannery [facility] 30on 10-11-2024 30 Problem: Pain - Adult Goal: Verbalizes/displays adequate comfort level or baseline comfort level Outcome: Progressing Flowsheets Taken 10/11/2024 0310 Verbalizes/displays adequate comfort level or baseline comfort level: Administer analgesics based on type and severity of pain and evaluate response Implement non-pharmacological measures as appropriate and evaluate response Assess pain using appropriate pain scale Taken 10/10/2024 1930 Verbalizes/displays adequate comfort level or baseline comfort level: Encourage patient to monitor pain and request assistance Assess pain using appropriate pain scale Administer analgesics based on type and severity of pain and evaluate response Implement non-pharmacological measures as appropriate and evaluate response Problem: Safety - Adult Goal: Free from fall injury Outcome: Progressing Flowsheets (Taken 10/10/2024 1930) Free from fall injury: Instruct family/caregiver on patient safety Problem: Discharge Planning Goal: Discharge to home or other facility with appropriate resources Outcome: Progressing Flowsheets (Taken 10/11/2024309) Discharge to home or other facility with appropriate resources: Identify barriers to discharge with patient and caregiver Problem: Chronic Conditions and Co-morbidities Goal: Patient's chronic conditions and co-morbidity symptoms are monitored and maintained or improved Outcome: Progressing Flowsheets (Taken 10/11/2024309) Care Plan - Patient's Chronic Conditions and Co-Morbidity Symptoms are Monitored and Maintained or Improved: Monitor and assess patient's chronic conditions and comorbid symptoms for stability, deterioration, or improvement Normal [facility] CBC W Auto Differential pane l (Bld)on 10-11-2024 Basophils (Bld) [#/Vol] 0 10*3/uL 0.0 - 0.2 10*3/uL [facility] Basophils/100 WBC (Bld) 0.4 % 0.0 - 2.0 % [facility] Eosinophils (Bld) [#/Vol] 0.1 10*3/uL 0.0 - 0.5 10*3/uL [facility] Eosinophils/100 WBC (Bld) 2 % 0.0 - 6.0 % [facility] Erythrocyte distribution width (RBC) [Ratio] 14.1 % 11.5 - 15.0 % [facility] Hematocrit (Bld) [Volume fraction] 33.2 % Low 35.0 - 47.0 % [facility] Hemoglobin (Bld) [Mass/Vol] 10.7 g/dL Low 11.7 - 16.0 g/dL [facility] Immature granulocytes (Bld) [#/Vol] 0 10*3/uL NINF - 0.1 10*3/uL [facility] Immature granulocytes/100 WBC (Bld) 0.2 % 0.0 - 2.0 % [facility] Interpretation and review of laboratory results Abnormal [facility] Lymphocytes (Bld) [#/Vol] 0.9 10*3/uL Low 1.0 - 4.3 10*3/uL [facility] Lymphocytes/100 WBC (Bld) 19.8 % 15.0 - 45.0 % [facility] MCH (RBC) [Entitic mass] 29.4 pg 26. 0 - 34.0 pg [facility] MCHC (RBC) [Mass/Vol] 32.2 % 30.5 - 36.0 % [facility] MCV (RBC) [Entitic vol] 91.2 fL 77.0 - 99.0 fL [facility] Monocytes (Bld) [#/Vol] 0.3 10*3/uL 0.0 - 0.9 10*3/uL [facility] Monocytes/100 WBC (Bld) 5.5 % 5.0 - 13.0 % [facility] Neutrophils (Bld) [#/Vol] 3.3 10*3/uL 1.8 - 7.5 10*3/uL [facility] Neutrophils/100 WBC (Bld) 72.1 % 38.0 - 82.0 % [facility] Nucleated RBC/100 WBC (Bld) [Ratio] 0 % [facility] Platelet mean volume (Bld) [Entitic vol] 11.4 fL 9.0 - 12.7 fL [facility] Platelets (Bld) [#/Vol] 104 10*3/uL Low 140 - 440 10*3/uL [facility] RBC (Bld) [#/Vol] 3.64 10*6/uL Low 3.80 - 5.2 0 10*6/uL [facility] WBC (Bld) [#/Vol] 4.5 10*3/uL 3.6 - 10.7 10*3/uL [facility] CBC WITH AUTO DIFFERENTIALon 10-11-2024 Basophils (Bld) [#/Vol] 0.0 10*3/uL Normal 0.0-0.2 [facility] Comment on above: Performed By: #### L AB113, [id number], LAB17 #### Order Puller: SHARON CRAWLEY ([id number]) [facility] ([facility]) [address] [place] [address] Basophils/100 WBC (Bld) 0.4 % Normal 0.0-2.0 [facility] Comment on above: Performed By: #### L AB113, [id number], LAB17 #### Order Puller: SHARON CRAWLEY ([id number]) [facility] ([facility]) [address] [place] [address] Eosinophils (Bld) [#/Vol] 0.1 10*3/uL Normal 0.0-0.5 [facility] Comment on above: Performed By: #### L AB113, [id number], LAB17 #### Order Puller: SHARON CRAWLEY ([id number]) [facility] [address] [place] [address] Eosinophils/100 WBC (Bld) 2.0 % Normal 0.0-6.0 [facility] Comment on above: Performed By: #### L AB113, [id number], LAB17 #### Order Puller: SHARON CRAWLEY ([id number]) [address] Erythrocyte distribution width (RBC) [Ratio] 14.1 % Normal 11.5-15.0 [facility] Comment on above: Performed By: #### Susi ABMabel, [id number], LAB17 #### Order Puller: SHARON CRAWLEY ([id number]) [facility] ([facility]) [address] [place] [address] Hematocrit (Bld) [Volume fraction] 33.2 % Low 35.0-47.0 [facility] Comment on above: Performed By: #### L AB113, [id number], LAB17 #### Order Puller: SHARON CRAWLEY ([id number]) [address] Hemoglobin (Bld) [Mass/Vol] 10.7 g/dL Low 11.7-16.0 [facility] Comment on above: Performed By: #### L AB113, [id number], LAB17 #### Order Puller: SHARON CRAWLEY ([id number]) [facility] [address] [place] [address] IMMATURE GRANS % 0.2 % Normal 0.0-2.0 [facility] Comment on above: Performed By: #### L AB113, [id number], LAB17 #### Order Puller: SHARON [id number]) [facility] ([address] IMMATURE GRANS ABSOLUTE 0.0 10*3/uL Normal <0.1 [facility] Comment on above: Performed By: #### L AB113, DSH074, LAB17 #### Order Puller: SHARON CRAWLEY ([id number]) [facility] [address] [place] [address] Lymphocytes (Bld) [#/Vol] 0.9 10*3/uL Low 1.0-4.3 [facility] Comment on above: Performed By: #### Susi AB113, [id number], LAB17 #### Order Puller: SHARON CRAWLEY ([id number]) [facility] [address] [place] [address] Lymphocytes/100 WBC (Bld) 19.8 % Normal 15.0-45.0 [facility] Comment on above: Performed By: #### Susi ABMabel, [id number], LAB17 #### Order Puller: SHARON CRAWLEY ([id number]) [facility]) [address] [place] [address] MCH (RBC) [Entitic mass] 29.4 pg Normal 26.0-34.0 [facility] Comment on above: Performed By: #### Susi AB113, [id number], LAB17 #### Order Puller: SHARON CRAWLEY ([id number]) [facility] [address] [place] [address] MCHC 32.2 % Normal 30.5-36.0 [facility] Comment on above: Performed By: #### L AB113, [id number], LAB17 #### Order Puller: SHARON CRAWLEY ([id number]) [facility] ([facility]) [address] [place] [address] MCV (RBC) [Entitic vol] 91.2 fL Normal 77.0-99.[address] [facility] Comment on above: Performed By: #### L AB113, [id number], LAB17 #### Order Puller: SHARON CRAWLEY ([id number]) [facility] [address] [place] [address] Monocytes (Bld) [#/Vol] 0.3 10*3/uL Normal 0.0-0.9 [facility] Comment on above: Performed By: #### L AB113, [id number], LAB17 #### Order Puller: SHARON CRAWLEY ([id number]) [facility] [address] [place] [address] Monocytes/100 WBC (Bld) 5.5 % Normal 5.0-13.0 [facility] Comment on above: Performed By: #### L AB113, [id number], LAB17 #### Order Puller: SHARON CRAWLEY ([id number]) [facility] ([facility]) [address] [place] [address] NEUTROPHILS ABSOLUTE 3.3 10*3/uL Normal 1.8-7.5 [facility] Comment on above: Performed By: #### Susi AB113, [id number], LAB17 #### Order Puller: SHARON CRAWLEY ([id number]) [facility] [address] [place] [address] Neutrophils/100 WBC (Bld) 72.1 % Normal 38.0-82.0 [facility] Comment on above: Performed By: #### Susi AB113, [id number], LAB17 #### Order Puller: SHARON CRAWLEY ([id number]) [facility]) [address] [place] [address] NRBC 0.0 /100 WBCs Normal 0.0-2.0 [facility] Comment on above: Performed By: #### L AB113, [id number], LAB17 #### Order Puller: SHARON CRAWLEY ([id number]) [facility]) [address] [place] [address] Platelet mean volume (Bld) [Entitic vol] 11.4 fL Normal 9.0-12.7 [facility] Comment on above: Performed By: #### L AB113, OIY115, LAB17 #### Order Puller: SHARON CRAWLEY ([id number]) [facility]) [address] [place] [address] Platelets (Bld) [#/Vol] 104 10*3/uL Low 140-440 [facility] Comment on above: Performed By: #### L AB113, [id number], LAB17 #### Order Puller: SHARON CRAWLEY ([id number]) [facility]) [address] [place] [address] RBC (Bld) [#/Vol] 3.64 10*6/uL Low 3.80-5.20 [facility] Comment on above: Performed By: #### L AB113, [id number], LAB17 #### Order Puller: SHARON CRAWLEY ([id number]) [facility]) [address] [place] [address] WBC (Bld) [#/Vol] 4.5 10*3/uL Normal 3.6-10.7 [facility] Comment on above: Performed By: #### Susi AB113, [id number], LAB17 #### Order Puller: SHARON CRAWLEY ([id number]) [facility]) [address] [place] [address] COMPREHENSIVE METABOLIC PANE Jeison 10-11-2024 Albumin [Mass/Vol] 2.6 g/dL Low 3.4-4.8 [facility] Comment on above: Performed By: #### Susi AB113, [id number], LAB17 #### Order Puller: SHARON CRAWLEY ([id number]) [facility]) [address] [place] [address] ALP [Catalytic activity/Vol] 51 U/L Normal 40-150 [facility] Comment on above: Performed By: #### L AB113, [id number], LAB17 #### Order Puller: SHARON CRAWLEY ([id number]) [facility] [address] [place] [address] ALT [Catalytic activity/Vol] 25 U/L Normal <30 [facility] Comment on above: Performed By: #### L AB113, [id number], LAB17 #### Order Puller: SHARON [id number]) [facility] ([facility]) [address] [place] [address] Anion gap [Moles/Vol] 6 mmol/L Normal 3-13 [facility] Comment on above: Performed By: #### L AB113, AIG151, LAB17 #### Order Puller: SHARON CRAWLEY ([id number]) [facility] ([facility]) [address] [place] [address] AST [Catalytic activity/Vol] 94 U/L High <34 [facility] Comment on above: Performed By: #### L AB113, [id number], LAB17 #### Order Puller: SHARON CRAWLEY ([id number]) [facility] [address] [place] [address] Bilirubin [Mass/Vol] 0.3 mg/dL Normal <1.2 [facility] Comment on above: Performed By: #### Susi AB113, [id number], LAB17 #### Order Puller: SHARON CRAWLEY ([id number]) [facility] ([facility]) [address] [place] [address] Calcium [Mass/Vol] 8.3 mg/dL Low 8.8-10.0 [facility] Comment on above: Performed By: #### L AB113, UDL340, LAB17 #### Order Puller: SHARON CRAWLEY ([id number]) [facility] ([facility]) [address] [place] [address] [place] Chloride [Moles/Vol] 109 mmol/L High 98-107 [facility] Comment on above: Performed By: #### L AB113, JZS154, LAB17 #### Order Puller: SHARON CRAWLEY ([id number]) [facility] ([facility]) [address] [place] [address] [place] CO2 [Moles/Vol] 23 mmol/L Normal 23-31 [facility] Comment on above: Performed By: #### L AB113, [id number], LAB17 #### Order Puller: SHARON CRAWLEY ([id number]) [facility] ([facility]) [address] [place] [address] [place] Creatinine [Mass/Vol] 0.81 mg/dL Normal 0.57-1.11 [facility] Comment on above: Performed By: #### Susi AB113, UGY645, LAB17 #### Order Puller: SHARON CRAWLEY ([id number]) [facility] ([facility]) [address] [place] [address] [place] GLOMERULAR FILTRATION RATE ML/MIN/1.73 SQ M.PREDICTED 78.7 mL/min/1.73m*2 Normal >60.0 [facility] Comment on above: Result Comment: Calc ulation based on the Chronic Kidney Disease Epidemiology Collaboration (CKD-EPI) equation refit without adjustment for race Performed By: #### L ABMabel, [id number], LAB17 #### Order Puller: SHARON CRAWLEY ([id number]) [facility]) [address] [place] [address] Glucose [Mass/Vol] 107 mg/dL Normal 82-115 [facility] Comment on above: Performed By: #### Susi ABMabel, [id number], LAB17 #### Order Puller: SHARON CRAWLEY ([id number]) [facility] ([facility]) [address] [place] [address] Potassium [Moles/Vol] 3.7 mmol/L Normal 3.5-5.1 [facility] Comment on above: Result Comment: [facility] potassium values may be up to 0.5 mmol/L lower than serum values. Performed By: #### Susi FOREMAN, [id number], LAB17 #### Order Puller: SHARON CRAWLEY ([id number]) [facility] [address] [place] [address] Protein [Mass/Vol] 5.9 g/dL Low 6.4-8.3 [facility] Comment on above: Performed By: #### L AB113, [id number], LAB17 #### Order Puller: SHARON CRAWLEY ([id number]) [facility] [address] [place] [address] [place] Sodium [Moles/Vol] 138 mmol/L Normal 136-145 [facility] Comment on above: Performed By: #### L AB113, [id number], LAB17 #### Order Puller: SHARON CRAWLEY ([id number]) [facility] ([facility]) [address] [place] [address] Urea nitrogen [Mass/Vol] 17 mg/dL Normal 9-23 [facility] Comment on above: Performed By: #### L AB113, [id number], LAB17 #### Order Puller: SHARON CRAWLEY ([id number]) [facility] ([facility]) [address] [place] [address] Comprehensive metabolic 1998 panelon 10-11-2024 Albumin [Mass/Vol] 2.6 g/dL Low 3.4 - 4.8 g/dL [facility] ALP [Catalytic activity/Vol] 51 U/L 40 - 150 U/L [facility] ALT [Catalytic activity/Vol] 25 U/L NINF - 30 U/L [facility] Anion gap [Moles/Vol] 6 mmol/L 3 - 13 mmol/L [facility] AST [Catalytic activity/Vol] 94 U/L High NINF - 34 U/L [facility] Bilirubin [Mass/Vol] 0.3 mg/dL NINF - 1.2 mg/dL [facility] Calcium [Mass/Vol] 8.3 mg/dL Low 8.8 - 10. 0 mg/dL [facility] Chloride [Moles/Vol] 109 mmol/L High 98 - 10 7 mmol/L [facility] CO2 [Moles/Vol] 23 mmol/L 23 - 31 mmol/L [facility] Creatinine [Mass/Vol] 0.81 mg/dL 0.57 - 1.11 mg/dL [facility] GFR/1.73 sq M.predicted (S/P/Bld) [Vol rate/Area] 78.7 mL/min - PINF [facility] Comment on above: Calculation based on the Chronic Kidney Disease Epidemiology Collaboration (CKD-EPI) equation refit without adjustment for race Glucose [Mass/Vol] 107 mg/dL 82 - 115 mg/dL [facility] Interpretation and review of laboratory results Abnormal [facility] Potassium [Moles/Vol] 3.7 mmol/L 3.5 - 5.1 mmol/L [facility] Comment on above: Plasma potassium filiberto ues may be up to 0.5 mmol/L lower than serum values. Protein [Mass/Vol] 5.9 g/dL Low 6.4 - 8.3 g/dL [facility] Sodium [Moles/Vol] 138 mmol/L 136 - 145 mmol/L [facility] Urea nitrogen [Mass/Vol] 17 mg/dL 9 - 23 mg/d L [facility] Laboratory - Chemistry and C hemistry - challengeon 10-11-2024 Magnesium [Mass/Vol] 2.1 mg/dL 1.6 - 2 .6 mg/dL [facility] MAGNESIUMon 10-11-2024 Magnesium [Mass/Vol] 2.1 mg/dL Normal 1.6-2.6 [facility] Comment on above: Result Comment: SIMONE De La Rosa COMMENTS: Higher values can be expected in females during menses. Performed By: #### L AB113, [id number], LAB17 #### Order Puller: SHARON CRAWLEY ([id number]) [facility] ([facility]) [address] [place] [address] Magnesium [Mass/Vol]on 10-11 Higher values can be expected in females during menses. [facility] No Panel Informationon 10-11 Interpretation and review of laboratory results Normal [facility] PHOSPHORUSon 10-11-2024 Phosphate [Mass/Vol] 3.3 mg/dL Normal 2.3-4.7 [facility] Comment on above: Performed By: #### L AB113, [id number], LAB17 #### Order Puller: SHARON CRAWLEY ([id number]) [facility]) [address] [place] [address] Phosphate [Moles/Vol]on 09-27 Phosphate [Mass/Vol] 3.3 mg/dL 2.3 - 4 .7 mg/dL [facility] Progress Noteon 10-11-2024 Progress Note Physician Response Please review the following and provide your response below. Please clarify which of the following accurately describes the patient's body habitus: Normal body habitus This documentation will become part of the patient's medical record. Normal [facility] Progress Note Physician Response Please review the following and provide your response below. Please clarify which of the following accurately describes the patient's CKD Stage: CKD Stage 2 (GFR 60-89) This documentation will become part of the patient's medical record. [facility] Progress Note Ischemic Heart Disease Coordinator Note Name: Lucas Astudillo Date of : 1955 10/11/24 Cardiac Medications - aspirin 81mg daily, ticagrelor 90mg twice daily, metoprolol succinate 50mg daily, lisinopril 10mg daily, rosuvastatin 40mg daily, and pantoprazole 20mg daily [facility] [place] [facility] Follow-up arranged with Tova Latif on 10/20/24 at 9:30am Cardiac rehab discussed with patient - Yes Discharge instructions, medications, restrictions, activity, diet, cardiac rehab and follow-up reviewed and patient verbalized understanding. She will utilize [id number] for her home-going Rx and was instructed to notify office with any difficulty obtaining Rx or if this becomes a financial burden. She was also informed to notify the office in the future if anyone asks her to hold or stop either ASA or ticagrelor (Brilinta) 90mg BID. [facility] Progress Note Attestation signed by Marimar Vaughn MD at 10/11/2024 12:46 PM IDr. Vaughn saw and evaluated the patient on 10/11/2024. I personally obtained the lam and critical portions of the history and physical exam. I reviewed the chart and discussed the patient with the resident. I agree with the resident's medical decision making. Ms. Astudillo is a 68-year-old female with prior medical history of hypertension and dyslipidemia who initially presented to [facility] with acute chest pain and was found to have inferior STEMI. The patient was taken to the [facility] and was found to have mid RCA occlusion and she received 2 drug-eluting stents. In the [employer] [facility], the patient also underwent episodes of ventricular tachycardia and required CPR and defibrillation. She was also noted to have some acute pulmonary edema and respiratory distress around this time and she underwent intubation. Initially the patient was requiring pressors concerning for cardiogenic shock. She reportedly had a fever concerning for an aspiration event during her intubation as well. The patient was started on antibiotics and was transferred to us on 10/08/2024 at [facility]. On presentation, her hemodynamics were stable and the patient was weaned off of her pressor support fairly quickly. She was also doing well from a respiratory standpoint and was subsequently extubated on 10/08/2024. Yesterday the patient was complaining about some musculoskeletal chest pain related to her chest compressions had an ICD shock which is much improved this morning. She has been able to walk around in the hallways without any symptoms. Her right femoral access site is without any hematoma. She also underwent an echocardiogram yesterday that showed an EF of around 40 to 45%. Telemetry showed short run of NSVT. Inferior STEMI complicated by ventricular tachycardia in the setting of ischemia and acute respiratory failure requiring intubation. There is also concern for potential aspiration event. She is doing well this morning. From a recent PCI standpoint, the patient has been maintained on aspirin 81 mg daily and Brilinta 90 mg twice daily. She is also getting PPI along with rosuvastatin 40 mg daily. Echocardiogram performed during this hospitalization now showing an EF of around 40 to 45%. The patient has been started on beta-usman therapy which she tolerated well so we will transition her to metoprolol succinate 50 mg daily today. Reinitiate her home lisinopril 10 mg daily. Will also finish out a course of Augmentin for aspiration pneumonia. The patient may be able to get discharged later on today. She plans on following up with the cardiology team in [place] and we will arrange those follow-ups. She was also interested in doing cardiac rehab at the same hospital. Portions of the information within this encounter were entered using an electronic dictation system. Best attempts were made to proofread the information prior to note completion. Despite the review of the information, some errors may remain. If there are questions related to the information contained within the note please contact the signing provider directly. Marimar Vaughn MD, [facility], [facility] [employer] [facility] [place] [address] [place] [address] [address] [place] [address] p [phone] f [phone] [email or web address] [facility] [place] [facility] CCU PROGRESS NOTE Patient Name: Lucas Astudillo : 1955 Subjective: 68F HTN, HLD, presents from [place] for post arrest mgmt. Initially presented for STEMI, had 3 VT arrest requiring CPR and defibrillation, intubation, CXR showed pulm edema, RCA stented. At [facility] pt needed pressors, was extubated, POCUS showed EF 30% with apical hypokinesis. Interval History: No acute event overnight, Denies chest pain, shortness of breath, headache Urine output 1650 ml Net negative 330ml Review of Systems: Review of Systems Constitutional: Negative. HENT: Negative. Eyes: Negative. Respiratory: Negative. Cardiovascular: Negative. Gastrointestinal: Negative. Endocrine: Negative. Genitourinary: Negative. Musculoskeletal: Negative. Neurological: Negative. Psychiatric/Behavior al: Negative. Inpatient Medications: Scheduled Meds:Scheduled Meds[1] Continuous Infusions:Continuous Meds[2] PRN Meds used in the last 24hr: none Objective: Physical Examination: BP 116/78 Pulse 93 Temp 36.8 ?C (98.2 ?F) (Temporal) Resp (!) 29 Ht 1.702 m (5' 7) Wt 88 kg (194 lb) SpO2 97% BMI 30.38 kg/m? Intake/Output Summary (Last 24 hours) at 10/11/2024 0656 Last data filed at 10/11/2024 0604 Gross per 24 hour Intake 1320 ml Output 1650 ml Net -330 ml Physical Exam Constitutional: Appearan (more content not included)... Normal [facility] 30on 10-10-2024 30 Problem: Pain - Adult Goal: Verbalizes/displays adequate comfort level or baseline comfort level Outcome: Progressing Problem: Safety - Adult Goal: Free from fall injury Outcome: Progressing Problem: Discharge Planning Goal: Discharge to home or other facility with appropriate resources Outcome: Progressing Problem: Chronic Conditions and Co-morbidities Goal: Patient's chronic conditions and co-morbidity symptoms are monitored and maintained or improved Outcome: Progressing Normal [facility] CBC W Auto Differential pane l (Bld)on 10-10-2024 Basophils (Bld) [#/Vol] 0 10*3/uL 0.0 - 0.2 10*3/uL [facility] Basophils/100 WBC (Bld) 0.3 % 0.0 - 2.0 % [facility] Eosinophils (Bld) [#/Vol] 0.1 10*3/uL 0.0 - 0.5 10*3/uL [facility] Eosinophils/100 WBC (Bld) 0.9 % 0.0 - 6.0 % [facility] Erythrocyte distribution width (RBC) [Ratio] 14.3 % 11.5 - 15.0 % [facility] Hematocrit (Bld) [Volume fraction] 35.6 % 35.0 - 47.0 % [facility] Hemoglobin (Bld) [Mass/Vol] 11.3 g/dL Low 11.7 - 16.0 g/dL [facility] Immature granulocytes (Bld) [#/Vol] 0 10*3/uL NINF - 0.1 10*3/uL [facility] Immature granulocytes/100 WBC (Bld) 0.2 % 0.0 - 2.0 % [facility] Interpretation and review of laboratory results Abnormal [facility] Lymphocytes (Bld) [#/Vol] 0.9 10*3/uL Low 1.0 - 4.3 10*3/uL [facility] Lymphocytes/100 WBC (Bld) 15.8 % 15.0 - 45.0 % [facility] MCH (RBC) [Entitic mass] 29 pg 26. 0 - 34.0 pg [facility] MCHC (RBC) [Mass/Vol] 31.7 % 30.5 - 36.0 % [facility] MCV (RBC) [Entitic vol] 91.5 fL 77.0 - 99.0 fL [facility] Monocytes (Bld) [#/Vol] 0.3 10*3/uL 0.0 - 0.9 10*3/uL [facility] Monocytes/100 WBC (Bld) 4.3 % Low 5.0 - 13.0 % [facility] Neutrophils (Bld) [#/Vol] 4.6 10*3/uL 1.8 - 7.5 10*3/uL [facility] Neutrophils/100 WBC (Bld) 78.5 % 38.0 - 82.0 % [facility] Nucleated RBC/100 WBC (Bld) [Ratio] 0 % [facility] Platelet mean volume (Bld) [Entitic vol] 11.3 fL 9.0 - 12.7 fL [facility] Platelets (Bld) [#/Vol] 118 10*3/uL Low 140 - 440 10*3/uL [facility] RBC (Bld) [#/Vol] 3.89 10*6/uL 3.80 - 5.2 0 10*6/uL [facility] WBC (Bld) [#/Vol] 5.8 10*3/uL 3.6 - 10.7 10*3/uL [facility] CBC WITH AUTO DIFFERENTIALon 10-10-2024 Basophils (Bld) [#/Vol] 0.0 10*3/uL Normal 0.0-0.2 [facility] Comment on above: Performed By: #### Susi AB113, LAB17, [id number] #### Order Puller: SHARON CRAWLEY ([id number]) [facility] [address] [place] [address] Basophils/100 WBC (Bld) 0.3 % Normal 0.0-2.[address] [facility] Comment on above: Performed By: #### Susi ABMabel, LAB17, [id number] #### Order Puller: SHARON CRAWLEY ([id number]) [facility] ([facility]) [address] [place] [address] [place] Eosinophils (Bld) [#/Vol] 0.1 10*3/uL Normal 0.0-0.5 [facility] Comment on above: Performed By: #### L AB113, LAB17, [id number] #### Order Puller: SHARON CRAWLEY ([id number]) [facility] ([facility]) [address] [place] [address] [place] Eosinophils/100 WBC (Bld) 0.9 % Normal 0.0-6.0 [facility] Comment on above: Performed By: #### Susi FOREMAN, LAB17, [id number] #### Order Puller: SHARON CRAWLEY ([id number]) [facility] [address] [place] [address] Erythrocyte distribution width (RBC) [Ratio] 14.3 % Normal 11.5-15.0 [facility] Comment on above: Performed By: #### Susi FOREMAN, LAB17, [id number] #### Order Puller: SHARON CRAWLEY ([id number]) [facility] [address] [place] [address] Hematocrit (Bld) [Volume fraction] 35.6 % Normal 35.0-47.0 [facility] Comment on above: Performed By: #### Susi FOREMAN, LAB17, [id number] #### Order Puller: SHARON CRAWLEY ([id number]) [facility] [address] [place] [address] Hemoglobin (Bld) [Mass/Vol] 11.3 g/dL Low 11.7-16.0 [facility] Comment on above: Performed By: #### Susi FOREMAN, LAB17, [id number] #### Order Puller: SHARON CRAWLEY ([id number]) [facility] [address] [place] [address] IMMATURE GRANS % 0.2 % Normal 0.0-2.0 [facility] Comment on above: Performed By: #### Susi FOREMAN, LAB17, [id number] #### Order Puller: SHARON CRAWLEY ([id number]) [facility] [address] [place] [address] IMMATURE GRANS ABSOLUTE 0.0 10*3/uL Normal <0.1 [facility] Comment on above: Performed By: #### Susi FOREMAN, LAB17, [id number] #### Order Puller: SHARON CRAWLEY ([id number]) [facility] [address] [place] [address] Lymphocytes (Bld) [#/Vol] 0.9 10*3/uL Low 1.0-4.3 [facility] Comment on above: Performed By: #### Susi ABMabel, LAB17, [id number] #### Order Puller: SHARON CRAWLEY ([id number]) [facility] [address] [place] [address] Lymphocytes/100 WBC (Bld) 15.8 % Normal 15.0-45.0 [facility] Comment on above: Performed By: #### Susi FOREMAN, LAB17, [id number] #### Order Puller: SHARON CRAWLEY ([id number]) [facility] ([facility]) [address] [place] [address] MCH (RBC) [Entitic mass] 29.0 pg Normal 26.0-34.0 [facility] Comment on above: Performed By: #### Susi FOREMAN, LAB17, [id number] #### Order Puller: SHARON CRAWLEY ([id number]) [facility] [address] [place] [address] MCHC 31.7 % Normal 30.5-36.0 [facility] Comment on above: Performed By: #### Susi FOREMAN, LAB17, [id number] #### Order Puller: SHARON CRAWLEY ([id number]) [facility] [address] [place] [address] MCV (RBC) [Entitic vol] 91.5 fL Normal 77.0-99.[address] [facility] Comment on above: Performed By: #### Susi FOREMAN, LAB17, [id number] #### Order Puller: SHARON CRAWLEY ([id number]) [facility] ([facility]) [address] [place] [address] Monocytes (Bld) [#/Vol] 0.3 10*3/uL Normal 0.0-0.9 [facility] Comment on above: Performed By: #### Susi ABMabel, LAB17, [id number] #### Order Puller: SHARON CRAWLEY ([id number]) [facility] [address] [place] [address] Monocytes/100 WBC (Bld) 4.3 % Low 5.0-13.[address] [facility] Comment on above: Performed By: #### Susi ABMabel, LAB17, [id number] #### Order Puller: SHARON CRAWLEY ([id number]) [facility] [address] [place] [address] NEUTROPHILS ABSOLUTE 4.6 10*3/uL Normal 1.8-7.5 [facility] Comment on above: Performed By: #### uSsi ABMabel, LAB17, [id number] #### Order Puller: SHARON CRAWLEY ([id number]) [facility] [address] [place] [address] Neutrophils/100 WBC (Bld) 78.5 % Normal 38.0-82.0 [facility] Comment on above: Performed By: #### Susi ABMbael, LAB17, [id number] #### Order Puller: SHARON CRAWLEY ([id number]) [facility] [address] [place] [address] NRBC 0.0 /100 WBCs Normal 0.0-2.0 [facility] Comment on above: Performed By: #### Susi FOREMAN, LAB17, [id number] #### Order Puller: SHARON CRAWLEY ([id number]) [facility] [address] [place] [address] Platelet mean volume (Bld) [Entitic vol] 11.3 fL Normal 9.0-12.7 [facility] Comment on above: Performed By: #### Susi ABMabel, LAB17, [id number] #### Order Puller: SHARON CRAWLEY ([id number]) [facility] [address] [place] [address] [place] Platelets (Bld) [#/Vol] 118 10*3/uL Low 140-440 [facility] Comment on above: Performed By: #### Susi AB113, LAB17, [id number] #### Order Puller: SHARON CRAWLEY ([id number]) [facility] [address] [place] [address] [place] RBC (Bld) [#/Vol] 3.89 10*6/uL Normal 3.80-5.20 [facility] Comment on above: Performed By: #### Susi ABMabel, LAB17, [id number] #### Order Puller: SHARON CRAWLEY ([id number]) [facility] ([facility]) [address] [place] [address] WBC (Bld) [#/Vol] 5.8 10*3/uL Normal 3.6-10.7 [facility] Comment on above: Performed By: #### Susi ABMabel, LAB17, [id number] #### Order Puller: SHARON CRAWLEY ([id number]) [facility] ([facility]) [address] [place] [address] COMPREHENSIVE METABOLIC PANE Jeison 10-10-2024 Albumin [Mass/Vol] 2.6 g/dL Low 3.4-4.8 [facility] Comment on above: Performed By: #### Susi FOREMAN, LAB17, [id number] #### Order Puller: SHARON CRAWLEY ([id number]) [facility] ([facility]) [address] [place] [address] ALP [Catalytic activity/Vol] 50 U/L Normal 40-150 [facility] Comment on above: Performed By: #### Susi ABMabel, LAB17, [id number] #### Order Puller: SHARON CRAWLEY ([id number]) [facility] ([facility]) [address] [place] [address] ALT [Catalytic activity/Vol] 33 U/L High <30 [facility] Comment on above: Performed By: #### Susi ABMabel, LAB17, [id number] #### Order Puller: SHARON CRAWLEY ([id number]) [facility] ([facility]) [address] [place] [address] Anion gap [Moles/Vol] 5 mmol/L Normal 3-13 [facility] Comment on above: Performed By: #### Susi ABMabel, LAB17, [id number] #### Order Puller: SHARON CRAWLEY ([id number]) [facility] ([facility]) [address] [place] [address] [place] AST [Catalytic activity/Vol] 155 U/L High <34 [facility] Comment on above: Performed By: #### Susi FOREMAN, LAB17, [id number] #### Order Puller: SHARON CRAWLEY ([id number]) [facility] ([facility]) [address] [place] [address] Bilirubin [Mass/Vol] 0.6 mg/dL Normal <1.2 [facility] Comment on above: Performed By: #### Susi FOREMAN, LAB17, [id number] #### Order Puller: SHARON CRAWLEY ([id number]) [facility] [address] [place] [address] Calcium [Mass/Vol] 8.2 mg/dL Low 8.8-10.0 [facility] Comment on above: Performed By: #### Susi FOREMAN, LAB17, [id number] #### Order Puller: SHARON CRAWLEY ([id number]) [facility] [address] [place] [address] [place] Chloride [Moles/Vol] 107 mmol/L Normal 98-107 [facility] Comment on above: Performed By: #### Susi FOREMAN, LAB17, [id number] #### Order Puller: SHARON CRAWLEY ([id number]) [facility] [address] [place] [address] [place] CO2 [Moles/Vol] 27 mmol/L Normal 23-31 [facility] Comment on above: Performed By: #### Susi FOREMAN, LAB17, [id number] #### Order Puller: SHARON CRAWLEY ([id number]) [facility] [address] [place] [address] [place] Creatinine [Mass/Vol] 0.93 mg/dL Normal 0.57-1.11 [facility] Comment on above: Performed By: #### Susi ABMabel, LAB17, [id number] #### Order Puller: SHRAON CRAWLEY ([id number]) [facility] [address] [place] [address] [place] GLOMERULAR FILTRATION RATE ML/MIN/1.73 SQ M.PREDICTED 67.1 mL/min/1.73m*2 Normal >60.0 [facility] Comment on above: Result Comment: Calc ulation based on the Chronic Kidney Disease Epidemiology Collaboration (CKD-EPI) equation refit without adjustment for race Performed By: #### L AB113, LAB17, [id number] #### Order Puller: SHARON CRAWLEY ([id number]) [facility] ([facility]) [address] [place] [address] Glucose [Mass/Vol] 108 mg/dL Normal 82-115 [facility] Comment on above: Performed By: #### L AB113, LAB17, [id number] #### Order Puller: SHARON CRAWLEY ([id number]) [facility] [address] [place] [address] Potassium [Moles/Vol] 3.5 mmol/L Normal 3.5-5.1 [facility] Comment on above: Result Comment: [facility] potassium values may be up to 0.5 mmol/L lower than serum values. Performed By: #### Susi AB113, LAB17, [id number] #### Order Puller: SHARON CRAWLEY ([id number]) [facility] ([facility]) [address] [place] [address] [place] Protein [Mass/Vol] 6.1 g/dL Low 6.4-8.3 [facility] Comment on above: Performed By: #### L AB113, LAB17, [id number] #### Order Puller: SHARON CRAWLEY ([id number]) [facility] ([facility]) [address] [place] [address] [place] Sodium [Moles/Vol] 139 mmol/L Normal 136-145 [facility] Comment on above: Performed By: #### L AB113, LAB17, [id number] #### Order Puller: SHARON CRAWLEY ([id number]) [facility] [address] [place] [address] [place] Urea nitrogen [Mass/Vol] 16 mg/dL Normal 9-23 [facility] Comment on above: Performed By: #### L AB113, LAB17, [id number] #### Order Puller: SHARON CRAWLEY ([id number]) [facility] ([facility]) [address] Comprehensive metabolic 1998 panelon 10-10-2024 Albumin [Mass/Vol] 2.6 g/dL Low 3.4 - 4.8 g/dL [facility] ALP [Catalytic activity/Vol] 50 U/L 40 - 150 U/L [facility] ALT [Catalytic activity/Vol] 33 U/L High NINF - 30 U/L [facility] Anion gap [Moles/Vol] 5 mmol/L 3 - 13 mmol/L [facility] AST [Catalytic activity/Vol] 155 U/L High NINF - 34 U/L [facility] Bilirubin [Mass/Vol] 0.6 mg/dL NINF - 1.2 mg/dL [facility] Calcium [Mass/Vol] 8.2 mg/dL Low 8.8 - 10. 0 mg/dL [facility] Chloride [Moles/Vol] 107 mmol/L 98 - 10 7 mmol/L [facility] CO2 [Moles/Vol] 27 mmol/L 23 - 31 mmol/L [facility] Creatinine [Mass/Vol] 0.93 mg/dL 0.57 - 1.11 mg/dL [facility] GFR/1.73 sq M.predicted (S/P/Bld) [Vol rate/Area] 67.1 mL/min - PINF [facility] Comment on above: Calculation based on the Chronic Kidney Disease Epidemiology Collaboration (CKD-EPI) equation refit without adjustment for race Glucose [Mass/Vol] 108 mg/dL 82 - 115 mg/dL [facility] Potassium [Moles/Vol] 3.5 mmol/L 3.5 - 5.1 mmol/L [facility] Comment on above: Plasma potassium filiberto ues may be up to 0.5 mmol/L lower than serum values. Protein [Mass/Vol] 6.1 g/dL Low 6.4 - 8.3 g/dL [facility] Sodium [Moles/Vol] 139 mmol/L 136 - 145 mmol/L [facility] Urea nitrogen [Mass/Vol] 16 mg/dL 9 - 23 mg/d L [facility] ECG 12-LEADon 10-10-2024 ECG 12-LEAD IMPRESSION: Sinus rhythm Inferior infarct, recent Abnormal T, suspect prox. LAD occlu. or CVA Prolonged QT interval Compared to ECG 10/09/2024 06:27:00 No significant changes Electronically Signed On 10-10-2024 10:33:38 EDT by Marquita Hernandez Normal [facility] FREE T4on 10-10-2024 Free T4 [Mass/Vol] 0.92 ng/dL Normal 0.70-1.48 [facility] Comment on above: Performed By: #### L AB113, LAB17, [id number] #### Order Puller: SHARON CRAWLEY ([id number]) [facility] ([facility]) [address] [place] [address] Free T4 [Mass/Vol]on 025 Free T4 Dialysis [Mass/Vol] 0.92 ng/dL 0.70 - 1.48 ng/dL [facility] Laboratory - Chemistry and C hemistry - challengeon 10-10-2024 Free T3 [Mass/Vol] 2.31 pg/mL 1.58 - 3. 91 pg/mL [facility] TSH Qn 0.77 m[IU]/L [facility] Magnesium [Mass/Vol] 1.9 mg/dL 1.6 - 2 .6 mg/dL [facility] Lipid Profileon 10-10-2024 CHOL Normal <=200 [facility] Comment on above: Result Comment: Canc elled via OM: MD Ordered Performed By: #### L 300.3900, L300.4310, L501.4021, L500.2500, L100.0100 #### [facility] Laboratory [address] [place], [place], [id number] CHOL:HDL Normal [facility] Comment on above: Result Comment: Canc elled via OM: MD Ordered Performed By: #### L 300.3900, L300.4310, L501.4021, L500.2500, L100.0100 #### [facility] [address] [place], [place], [id number] CLDL Normal [facility] Comment on above: Result Comment: Canc elled via OM: MD Ordered Performed By: #### L 300.3900, L300.4310, L501.4021, L500.2500, L100.0100 #### [facility] [address] [place], [address] HDL Normal [facility] Comment on above: Result Comment: Canc elled via OM: MD Ordered Performed By: #### L 300.3900, L300.4310, L501.4021, L500.2500, L100.0100 #### [facility] [address] [place], [address] TRIG Normal [facility] Comment on above: Result Comment: Canc elled via OM: MD Ordered Performed By: #### L 300.3900, L300.4310, L501.4021, L500.2500, L100.0100 #### [facility] [address] [place], [address] VLDL Normal 5-40 [facility] Comment on above: Result Comment: Canc elled via OM: MD Ordered Performed By: #### L 300.3900, L300.4310, L501.4021, L500.2500, L100.0100 #### [facility] [address] [place], [address] MAGNESIUMon 10-10-2024 Magnesium [Mass/Vol] 1.9 mg/dL Normal 1.6-2.6 [facility] Comment on above: Result Comment: SIMONE De La Rosa COMMENTS: Higher values can be expected in females during menses. Performed By: #### L AB113, LAB17, FNS021 #### Order Puller: SHARON CRAWLEY ([id number]) [facility] ([facility] MR/QUALITYon 10-10-2024 /QUALITY [facility] Medical Records Department [address] [place] [address] Quality Report 10/10/24 1000 MR#: [id number] Acct: [id number] Name: LUCAS ASTUDILLOE Rep #: [id number] : 1955 68 From: Bandar OLIVERA: Dr. Eugenio Peralta MD Status:DIS IN Y Location: ICU ICU03-1 STEMI STEMI ED Door Time / Other REG STEMI EKG Time (1) ST elevation myocardial infarction (STEMI) of inferior wall: Acute 10/08/24 03:56 Balloon/Aspiration Date-Time Date of Balloon/Aspiration:: 10/08/24 Time of Balloon/Aspiration:: 04:54 10/10/24 1001 Date [facility] Cosigner Signature (if applicable): Date CC: Signed Normal [facility] Magnesium [Mass/Vol]on 10-10 Interpretation and review of laboratory results Normal [employer] Higher values can be expected in females during menses. [employer] No Panel InformationOrdered By: Marquita Hernandez on 10-10-2024 P Ruby 58 degrees [employer] Work Phone: AL Interval 182 ms [employer] Work Phone: QRS Ruby -28 degrees [employer] Work Phone: QRSD Interval 97 ms [email or web address] Work Phone: QT Interval 458 ms [employer] Work Phone: QTC Interval 501 ms [employer] Work Phone: T Wave Ruby -90 degrees [employer] Work Phone: [employer] Work Phone: No Panel Informationon 10-10 Sinus rhythm Inferior infarct, recent Abnormal T, suspect prox. LAD occlu. or CVA Prolonged QT interval Compared to ECG 10/09/2024 06:27:00 No significant changes Electronically Signed On 10-10-2024 10:33:38 EDT by Marquita Berg MD - 10/10/2024 IMPRESSION: Sinus rhythm Inferior infarct, recent Abnormal T, suspect prox. LAD occlu. or CVA Prolonged QT interval Compared to ECG 10/09/2024 06:27:00 No significant changes Electronically Signed On 10-10-2024 10:33:38 EDT by Marquita Hernandez [facility] Interpretation and review of laboratory results Normal [facility] Interpretation and review of laboratory results Abnormal [facility] PHOSPHORUSon 10-10-2024 Phosphate [Mass/Vol] 1.9 mg/dL Low 2.3-4.7 [facility] Comment on above: Performed By: #### L AB113, LAB17, [id number] #### Order Puller: SHARON CRAWLEY ([id number]) [facility] ([facility]) [address] [place] [address] Phosphate [Moles/Vol]on 09-27 Phosphate [Mass/Vol] 1.9 mg/dL Low 2.3 - 4 .7 mg/dL [facility] Progress Noteon 10-10-2024 Progress Note Nutrition rescreen completed. Chart reviewed. Patient to be monitored and followed by the diet nuclear medicine technician. Normal [facility] Progress Note Attestation signed by Marimar Vaughn MD at 10/10/2024 2:48 PM (Updated) I, Dr. Vaughn saw and evaluated the patient on 10/10/2024. I personally obtained the lam and critical portions of the history and physical exam. I reviewed the chart and discussed the patient with the resident. I agree with the resident's medical decision making. Ms. Astudillo is a 68-year-old female with prior medical history of hypertension and dyslipidemia who initially presented to [facility] with acute chest pain and was found to have inferior STEMI. The patient was taken to the [employer] [employer] [facility] and was found to have mid RCA occlusion and she received 2 drug-eluting stents. In the [employer], the patient also underwent episodes of ventricular tachycardia and required CPR and defibrillation. She was also noted to have some acute pulmonary edema and respiratory distress around this time and she underwent intubation. Initially the patient was requiring pressors concerning for cardiogenic shock. She reportedly had a fever concerning for an aspiration event during her intubation as well. The patient was started on antibiotics and was transferred to us on 10/08/2024 at [facility]. On presentation, her hemodynamics were stable and the patient was weaned off of her pressor support fairly quickly. She was also doing well from a respiratory standpoint and was subsequently extubated on 10/08/2024. This morning the patient is only complaining about some musculoskeletal pain related to her chest compressions. She does not have any other complaints. Her right femoral access site for the cath looks clean without any hematoma. She is not on any oxygen therapy. Her labs are stable this morning. Inferior STEMI complicated by ventricular tachycardia in the setting of ischemia and acute respiratory failure requiring intubation. There is also concern for potential aspiration event. She is doing well this morning. From a recent PCI standpoint, the patient has been maintained on aspirin 81 mg daily and Brilinta 90 mg twice daily. She is also getting PPI along with rosuvastatin 40 mg daily. The patient has been off of the pressor support for greater than 24 hours at this point. Will proceed with initiation of some beta-usman therapy. She did have some NSVT on her telemetry as well. She is still pending her echocardiogram at this time and will likely need other guideline directed medical therapy pending the results of the echocardiogram. She would be a good candidate for cardiac rehab as an outpatient. Depending the findings of the echocardiogram, the patient may require LifeVest as we work on guideline directed medical therapy in hopes to recover the LV function in the next couple of months. We will continue Unasyn for the time being for concern for aspiration pneumonitis/pneumoni a. Portions of the information within this encounter were entered using an electronic dictation system. Best attempts were made to proofread the information prior to note completion. Despite the review of the information, some errors may remain. If there are questions related to the information contained within the note please contact the signing provider directly. Marimar Vaughn MD, [facility], [facility] Gunnery/Ordnance Officer [facility], [facility] [address] [place] [address] p [phone] f [phone] [email or web address] [facility] [place] [facility] CCU PROGRESS NOTE Patient Name: Lucas Astudillo : 1955 Subjective: Lucas Astudillo is a 68 y.o. female with PMH of HTN, HLD that presented to [facility] on 10/08/2024 from outside facility ([facility]) for post arrest management. Patient presented to [facility] earlier today with chest pain that had been ongoing for several days. Was found to have STEMI and was taken to bundle tier and labeler where she had 3 episodes of VT requiring CPR and defibrillation. During intubation, she was noted to have frothing secretions consistent with pulmonary edema. Her RCA was able to successfully stented. In recovery, she had a fever of 101.9F and was requiring pressors. On evaluation at [facility], patient is easily awoken, follows commands. No significant peripheral edema. Lungs are clear, though she does have thick secretions on suctioning. Tolerating being off pressors, extubated . Bedside ECHO shows EF of ~30% with apical hypokinesis. Interval History: No acute event over night, denies any headache, shortness of breath, still endorse chest pain but less than yesterday, endorse abit nausea when she is sitting up Sleep well overnight Daily net -922 ml Review of Systems: Review of Systems Constitutional: Negative. HENT: Negative. Eyes: Negative. Respiratory: Negative. Cardiovascular: Negative. Gas (more content not included)... Normal [facility] Respiratory Cultureon 2024 RESPC Mixed normal respiratory jung. No Streptococcus pneumoniae, beta-hemolytic Streptococcus or Staphylococcus aureus isolated. Normal [facility] Comment on above: Performed By: #### L 300.3900, L300.4310, L501.4021, L500.2500, L100.0100 #### [facility] Laboratory [address] [place], [place], [id number] T3 FREEon 10-10-2024 Free T3 [Mass/Vol] 2.31 pg/mL Normal 1.58-3.91 [facility] Comment on above: Performed By: #### L AB113, LAB17, [id number] #### Order Puller: SHARON CRAWLEY ([id number]) [facility] ([facility]) [address] [place] [address] THYROID STIMULATING HORMONEo n 10-10-2024 THYROID STIMULATING HORMONE 0.77 uIU/mL Normal 0.35-4.94 [facility] Comment on above: Performed By: #### L AB113, LAB17, [id number] #### Order Puller: SHARON CRAWLEY ([id number]) [facility] ([facility]) [address] [place] [address] US Heart TransthoracicOrdere d By: Pranay Louise on 10-10-2024 Aortic Arch 2.7 cm [facility] Work Phone: Aortic Sinus Valsalva 3.4 cm [facility] Work Phone: Aortic Sinus Valsalva Index 1.63 cm/m2 [facility] Work Phone: Aortic valve Mean systole pressure gradient by US.doppler derived full Bernoulli 3 mmHg [facility] Work Phone: Aortic valve Orifice area by US 3.5 cm2 [facility] Work Phone: Aortic valve Peak systolic flow by US.doppler 0.8 m/s [facility] Work Phone: Ascending Aorta 3.8 cm [facility] Work Phone: Ascending Aorta Index 1.83 cm/m2 [facility] Work Phone: AV Area by Peak Velocity 2.7 cm2 [facility] Work Phone: AV Area by VTI 2.5 cm2 [facility] Work Phone: AV Peak Gradient 6 mmHg [facility] Work Phone: AV Peak Velocity 1.2 m/s [facility] Work Phone: AV Velocity Ratio 0.83 [facility] Work Phone: AV VTI 26.1 cm [facility] Work Phone: TOMASA/BSA Peak Velocity 1.3 cm2/m2 [facility] Work Phone: TOMASA/BSA VTI 1.2 cm2/m2 [facility] Work Phone: E/E' Lateral 10.67 [facility] Work Phone: E/E' Ratio (Averaged) 13.33 [facility] Work Phone: E/E' Septal 16 [facility] Work Phone: Est. RA Pressure 8 mmHg [facility] Work Phone: Fractional Shortening 2D 28 % 28 - 44 % [facility] Work Phone: Global Longitudinal Strain -11.4 % [facility] Work Phone: [phone] Interpretation and review of laboratory results Abnormal [facility] Work Phone: IVC Diameter 2.2 cm [facility] Work Phone: [phone] IVSd 1.2 cm Abnormal 0.6 - 0.9 cm [facility] Work Phone: [phone] LA Diameter 3.8 cm [facility] Work Phone: LA Size Index 1.83 cm/m2 [facility] Work Phone: [phone] LA Volume 2C 41 mL 22 - 52 mL [facility] Work Phone: [phone] LA Volume 4C 39 mL 22 - 52 mL [facility] Work Phone: [phone] LA Volume A/L 45 mL [facility] Work Phone: LA Volume BP 41 mL 22 - 52 mL [facility] Work Phone: LA Volume Index 2C 20 mL/m2 16 - 34 mL/m2 [facility] Work Phone: LA Volume Index 4C 19 mL/m2 16 - 34 mL/m2 [facility] Work Phone: LA Volume Index A/L 22 mL/m2 16 - 34 mL/m2 [facility] Work Phone: LA Volume Index BP 20 ml/m2 16 - 34 ml/m2 [facility] Work Phone: Left ventricular Ejection fraction by US.2D+Calculated by biplane method of disks 42 % Abnormal 55 - 100 % [facility] Work Phone: LV E' Lateral Velocity 6 cm/s [facility] Work Phone: LV E' Septal Velocity 4 cm/s [facility] Work Phone: LV EDV A2C 153 mL [facility] Work Phone: LV EDV A4C 133 mL [facility] Work Phone: LV EDV BP 144 mL Abnormal 56 - 104 mL [facility] Work Phone: LV EDV Index A2C 74 mL/m2 [facility] Work Phone: LV EDV Index A4C 64 mL/m2 [facility] Work Phone: LV EDV Index BP 69 mL/m2 [facility] Work Phone: LV Ejection Fraction A2C 47 % [facility] Work Phone: LV Ejection Fraction A4C 38 % [facility] Work Phone: LV ESV A2C 81 mL [facility] Work Phone: LV ESV A4C 83 mL [facility] Work Phone: LV ESV BP 84 mL Abnormal 19 - 49 mL [facility] Work Phone: LV ESV Index A2C 39 mL/m2 [facility] Work Phone: LV ESV Index A4C 40 mL/m2 [facility] Work Phone: LV ESV Index BP 40 mL/m2 [facility] Work Phone: LV Mass 2D 220.6 g Abnormal 67 - 162 g [facility] Work Phone: LV Mass 2D Index 106.1 g/m2 Abnormal 43 - 95 g/m2 [facility] Work Phone: LV RWT Ratio 0.33 [facility] Work Phone: LVIDd 5.4 cm Abnormal 3.9 - 5.3 cm [facility] Work Phone: LVIDd Index 2.6 cm/m2 [facility] Work Phone: LVIDs 3.9 cm [facility] Work Phone: LVIDs Index 1.88 cm/m2 [facility] Work Phone: LVOT Cardiac Output 4.8 liter/minute [facility] Work Phone: LVOT Diameter 2.1 cm [facility] Work Phone: LVOT Mean Gradient 2 mmHg [facility] Work Phone: LVOT Peak Gradient 4 mmHg [facility] Work Phone: LVOT Peak Velocity 1 m/s [facility] Work Phone: LVOT Stroke Volume Index 31.8 mL/m2 [facility] Work Phone: LVOT SV 66.1 ml [facility] Work Phone: LVOT VTI 19.1 cm [facility] Work Phone: LVOT:AV VTI Index 0.73 [facility] [employer] Work Phone: LVPWd 0.9 cm 0.6 - 0.9 cm [facility] Work Phone: MV A Velocity 0.81 m/s [facility] [email or web address] Work Phone: MV E Velocity 0.64 m/s [facility] Work Phone: MV E Wave Deceleration Time 183.1 ms [facility] Work Phone: MV E/A 0.79 [facility] Work Phone: RA Area 4C 30.9 mL [facility] Work Phone: RA Area 4C 30.2 mL [facility] Work Phone: RV Basal Dimension 3.1 cm [facility] Work Phone: RV Free Wall Peak S' 12 cm/s [facility] Work Phone: RV Longitudinal Dimension 6.1 cm [facility] Work Phone: RV Mid Dimension 2.2 cm [facility] Work Phone: RVSP 28 mmHg [facility] Work Phone: Sinotubular Junction 2.9 cm [facility] Work Phone: TAPSE 2.2 cm 1.7 cm [facility] Work Phone: TR Max Velocity 2.22 m/s [facility] Work Phone: TR Peak Gradient 20 mmHg [facility] Work Phone: [facility] Work Phone: Heart Transthoracicon Left Ventricle: Left ventricle is dilated. Mildly increased wall thickness. Mildly reduced left ventricular systolic function. EF by 2D Simpsons Biplane is 42%. Global longitudinal strain is reduced with a value of -11.4%. See diagram for wall motion findings. Grade I diastolic dysfunction with normal LAP. Echocardiographic features are suggestive of ischemic cardiomyopathy. Right Ventricle: Right ventricle size is normal. Normal systolic function. Tricuspid Valve: Est RA pressure is 8 mmHg. RVSP is 28 mmHg. Aorta: Normal sized sinuses of Valsalva. Mildly dilated ascending aorta. Ao ascending diameter is 3.8 cm. No significant valvular abnormalities. Left Ventricle Left ventricle is dilated. Mildly increased wall thickness. Mildly reduced left ventricular systolic function. EF by 2D Simpsons Biplane is 42%. Global longitudinal strain is reduced with a value of -11.4%. See diagram for wall motion findings. Grade I diastolic dysfunction with normal LAP. Echocardiographic features are suggestive of ischemic cardiomyopathy. Right Ventricle Right ventricle size is normal. Normal systolic function. Left Atrium Left atrium size is normal. Right Atrium Right atrium size is normal. IVC/SVC IVC size is normal. IVC diameter is dilated and decreases greater than 50% during inspiration; therefore the estimated right atrial pressure is intermediate (~8 mmHg). Mitral Valve Valve structure is normal. Mild (1+) regurgitation. No stenosis noted. Tricuspid Valve Valve structure is normal. Trace regurgitation. Est RA pressure is 8 mmHg. RVSP is 28 mmHg. Aortic Valve Trileaflet. No cusp thickening. No cusp calcification. Trace regurgitation. No stenosis. Pulmonic Valve Valve structure is normal. Trace regurgitation. Ascending Aorta Normal sized sinuses of Valsalva. Mildly dilated ascending aorta. Ao ascending diameter is 3.8 cm. Pericardium Evidence of prominent epicardial fat. No pericardial effusion. Septum No interatrial shunt visualized on color Doppler. Study Details Image quality: fair. Additional technique includes myocardial strain. Blood pressure: 101/72 mmHg. Technical qualifiers: Technically difficult study due to low parasternal window. Ultrasound enhancement agent was given to enhance imaging. Echo Additional Conclusions No significant valvular abnormalities. Wall Scoring Baseline Score Index: 1.41 The following segments are akinetic: apical lateral. The following segments are hypokinetic: mid inferior, mid inferolateral, apical anterior, apical inferior and apex. All other segments are normal. CV CPACS Vital signsOrdered By: Juan José Hernandez on 10-10-2024 Heart rate 72 /min bpm [employer] Work Phone: ACT Activated Clotting Timeo n 10-09-2024 ACTk CLOT TIME 395 sec High 74-137 [facility] Comment on above: Performed By: #### L 300.3900, L300.4310, L501.4021, L500.2500, L100.0100 #### [facility] Laboratory [address] [place], [place], [id number] CBC W Auto Differential pane l (Bld)on 10-09-2024 Basophils (Bld) [#/Vol] 0 10*3/uL 0.0 - 0.2 10*3/uL [employer] Basophils/100 WBC (Bld) 0.2 % 0.0 - 2.0 % [employer] Eosinophils (Bld) [#/Vol] 0 10*3/uL 0.0 - 0.5 10*3/uL [employer] Eosinophils/100 WBC (Bld) 0 % 0.0 - 6.0 % [facility] Erythrocyte distribution width (RBC) [Ratio] 14.3 % 11.5 - 15.0 % [facility] Hematocrit (Bld) [Volume fraction] 40.2 % 35.0 - 47.0 % [facility] Hemoglobin (Bld) [Mass/Vol] 12.9 g/dL 11.7 - 16.0 g/dL [facility] Immature granulocytes (Bld) [#/Vol] 0 10*3/uL NINF - 0.1 10*3/uL [facility] Immature granulocytes/100 WBC (Bld) 0.3 % 0.0 - 2.0 % [facility] Interpretation and review of laboratory results Abnormal [facility] Lymphocytes (Bld) [#/Vol] 0.8 10*3/uL Low 1.0 - 4.3 10*3/uL [facility] Lymphocytes/100 WBC (Bld) 8.5 % Low 15.0 - 45.0 % [facility] MCH (RBC) [Entitic mass] 28.9 pg 26. 0 - 34.0 pg [facility] MCHC (RBC) [Mass/Vol] 32.1 % 30.5 - 36.0 % [facility] MCV (RBC) [Entitic vol] 89.9 fL 77.0 - 99.0 fL [facility] Monocytes (Bld) [#/Vol] 0.4 10*3/uL 0.0 - 0.9 10*3/uL [facility] Monocytes/100 WBC (Bld) 4.7 % Low 5.0 - 13.0 % [facility] Neutrophils (Bld) [#/Vol] 7.7 10*3/uL High 1.8 - 7.5 10*3/uL [facility] Neutrophils/100 WBC (Bld) 86.3 % High 38.0 - 82.0 % [facility] Nucleated RBC/100 WBC (Bld) [Ratio] 0 % [facility] Platelet mean volume (Bld) [Entitic vol] 11.3 fL 9.0 - 12.7 fL [facility] Platelets (Bld) [#/Vol] 141 10*3/uL 140 - 440 10*3/uL [facility] RBC (Bld) [#/Vol] 4.47 10*6/uL 3.80 - 5.2 0 10*6/uL [facility] WBC (Bld) [#/Vol] 8.9 10*3/uL 3.6 - 10.7 10*3/uL [facility] CBC WITH AUTO DIFFERENTIALon 10-09-2024 Basophils (Bld) [#/Vol] 0.0 10*3/uL Normal 0.0-0.2 [facility] Comment on above: Performed By: #### L ABMabel, LAB17, [id number] #### Order Puller: SHARON CRAWLEY ([id number]) [facility] ([facility]) [address] [place] [address] Basophils/100 WBC (Bld) 0.2 % Normal 0.0-2.[address] [facility] Comment on above: Performed By: #### Susi ABMabel, LAB17, [id number] #### Order Puller: SHARON CRAWLEY ([id number]) [facility] ([facility]) [address] [place] [address] [place] Eosinophils (Bld) [#/Vol] 0.0 10*3/uL Normal 0.0-0.5 [facility] Comment on above: Performed By: #### Susi ABMabel, LAB17, [id number] #### Order Puller: SHARON CRAWLEY ([id number]) [facility] ([facility]) [address] [place] [address] Eosinophils/100 WBC (Bld) 0.0 % Normal 0.0-6.0 [facility] Comment on above: Performed By: #### Susi ABMabel, LAB17, [id number] #### Order Puller: SHARON CRAWLEY ([id number]) [facility] [address] [place] [address] Erythrocyte distribution width (RBC) [Ratio] 14.3 % Normal 11.5-15.0 [facility] Comment on above: Performed By: #### L AB113, LAB17, [id number] #### Order Puller: SHARON CRAWLEY ([id number]) [facility] [address] [place] [address] Hematocrit (Bld) [Volume fraction] 40.2 % Normal 35.0-47.0 [facility] Comment on above: Performed By: #### Susi FOREMAN, LAB17, [id number] #### Order Puller: SHARON CRAWLEY ([id number]) [facility] [address] [place] [address] Hemoglobin (Bld) [Mass/Vol] 12.9 g/dL Normal 11.7-16.0 [facility] Comment on above: Performed By: #### Susi FOREMAN, LAB17, [id number] #### Order Puller: SHARON CRAWLEY ([id number]) [facility] [address] [place] [address] IMMATURE GRANS % 0.3 % Normal 0.0-2.0 [facility] Comment on above: Performed By: #### Susi FOREMAN, LAB17, [id number] #### Order Puller: HSARON CRAWLEY ([id number]) [facility] [address] [place] [address] IMMATURE GRANS ABSOLUTE 0.0 10*3/uL Normal <0.1 [facility] Comment on above: Performed By: #### Susi FOREMAN, LAB17, [id number] #### Order Puller: SHARON CRAWLEY ([id number]) [facility] [address] [place] [address] Lymphocytes (Bld) [#/Vol] 0.8 10*3/uL Low 1.0-4.3 [facility] Comment on above: Performed By: #### Susi FOREMAN, LAB17, [id number] #### Order Puller: SHARON CRAWLEY ([id number]) [facility] [address] [place] [address] Lymphocytes/100 WBC (Bld) 8.5 % Low 15.0-45.0 [facility] Comment on above: Performed By: #### Susi FOREMAN, LAB17, [id number] #### Order Puller: SHARON CRAWLEY ([id number]) [facility] [address] [place] [address] MCH (RBC) [Entitic mass] 28.9 pg Normal 26.0-34.0 [facility] Comment on above: Performed By: #### Susi ABMabel, LAB17, [id number] #### Order Puller: SHARON CRAWLEY ([id number]) [facility] [address] [place] [address] MCHC 32.1 % Normal 30.5-36.0 [facility] Comment on above: Performed By: #### Susi ABMabel, LAB17, [id number] #### Order Puller: SHARON CRAWLEY ([id number]) [facility] [address] [place] [address] MCV (RBC) [Entitic vol] 89.9 fL Normal 77.0-99.0 [facility] Comment on above: Performed By: #### Susi FOREMAN, LAB17, [id number] #### Order Puller: SHARON CRAWLEY ([id number]) [facility] [address] [place] [address] Monocytes (Bld) [#/Vol] 0.4 10*3/uL Normal 0.0-0.9 [facility] Comment on above: Performed By: #### Susi FOREMAN, LAB17, [id number] #### Order Puller: SHARON CRAWLEY ([id number]) [facility] [address] [place] [address] Monocytes/100 WBC (Bld) 4.7 % Low 5.0-13.0 [facility] Comment on above: Performed By: #### Susi FOREMAN, LAB17, [id number] #### Order Puller: SHARON CRAWLEY ([id number]) [facility] [address] [place] [address] NEUTROPHILS ABSOLUTE 7.7 10*3/uL High 1.8-7.5 [facility] Comment on above: Performed By: #### Susi ABMabel, LAB17, [id number] #### Order Puller: SHARON CRAWLEY ([id number]) [facility] [address] [place] [address] Neutrophils/100 WBC (Bld) 86.3 % High 38.0-82.0 [facility] Comment on above: Performed By: #### Susi ABMabel, LAB17, [id number] #### Order Puller: SHARON CRAWLEY ([id number]) [facility] [address] [place] [address] NRBC 0.0 /100 WBCs Normal 0.0-2.0 [facility] Comment on above: Performed By: #### Susi ABMabel, LAB17, [id number] #### Order Puller: SHARON CRAWLEY ([id number]) [facility] [address] [place] [address] Platelet mean volume (Bld) [Entitic vol] 11.3 fL Normal 9.0-12.7 [facility] Comment on above: Performed By: #### Susi ABMabel, LAB17, [id number] #### Order Puller: SHARON CRAWLEY ([id number]) [facility] [address] [place] [address] Platelets (Bld) [#/Vol] 141 10*3/uL Normal 140-440 [facility] Comment on above: Performed By: #### Susi FOREMAN, LAB17, [id number] #### Order Puller: SHARON CRAWLEY ([id number]) [facility] [address] [place] [address] RBC (Bld) [#/Vol] 4.47 10*6/uL Normal 3.80-5.20 [facility] Comment on above: Performed By: #### Susi ABMabel, LAB17, [id number] #### Order Puller: SHARON CRAWLEY ([id number]) [facility] [address] [place] [address] WBC (Bld) [#/Vol] 8.9 10*3/uL Normal 3.6-10.7 [facility] Comment on above: Performed By: #### Susi ABMabel, LAB17, [id number] #### Order Puller: SHARON CRAWLEY ([id number]) [facility] [address] [place] [address] CBC-Complete Blood Cnt No Di ffon 10-09-2024 HCT Normal 37-47 [facility] Comment on above: Result Comment: Canc elled via OM: Order cancelled - Patient discharged Performed By: #### L 500.4100, L100.0500 #### [facility] [address] [place], [address] HGB Normal 12.0-15.0 [facility] Comment on above: Result Comment: Canc elled via OM: Order cancelled - Patient discharged Performed By: #### L 500.4100, L100.0500 #### [facility] [address] [place], [address] MCH Normal 27.0-32.0 [facility] Comment on above: Result Comment: Canc elled via OM: Order cancelled - Patient discharged Performed By: #### L 500.4100, L100.0500 #### [facility] [address] [place], [address] MCHC Normal 32-36 [facility] Comment on above: Result Comment: Canc elled via OM: Order cancelled - Patient discharged Performed By: #### L 500.4100, L100.0500 #### [facility] [address] [place], [address] MCV Normal 81-99 [facility] Comment on above: Result Comment: Canc elled via OM: Order cancelled - Patient discharged Performed By: #### L 500.4100, L100.0500 #### [facility] [address] [place], [address] PLT Normal 150-450 [facility] Comment on above: Result Comment: Canc elled via OM: Order cancelled - Patient discharged Performed By: #### L 500.4100, L100.0500 #### [facility] [address] [place], [address] RBC Normal 4.2-5.4 [facility] Comment on above: Result Comment: Canc elled via OM: Order cancelled - Patient discharged Performed By: #### L 500.4100, L100.0500 #### [facility] [address] [place], [address] RDW CV Normal 11.6-14.6 [facility] Comment on above: Result Comment: Canc elled via OM: Order cancelled - Patient discharged Performed By: #### L 500.4100, L100.0500 #### [facility] [address] [place], [address] RDW SD Normal 35.1-43.9 [facility] Comment on above: Result Comment: Canc elled via OM: Order cancelled - Patient discharged Performed By: #### L 500.4100, L100.0500 #### [facility] [address] [place], [address] WBC Normal 4.4-11.0 [facility] Comment on above: Result Comment: Canc elled via OM: Order cancelled - Patient discharged Performed By: #### L 500.4100, L100.0500 #### [facility] [address] [place], [address] CK TOTAL AND CKMBon 10-10-19 25 CK [Catalytic activity/Vol] 1333 U/L High 30-185 [facility] Comment on above: Performed By: #### L AB113, LAB17, [id number] #### Order Puller: SHARON CRAWLEY ([id number]) [facility] ([facility]) [address] [place] [address] CK.MB [Mass/Vol] 90.0 ng/mL High <=3.4 [facility] Comment on above: Result Comment: ORDE R COMMENTS: If CK-MB is elevated and the ratio of CK-MB to total CK (relative index) is more than 3, then it is likely that the heart was damaged. A high CK with a relative index below this value suggests that skeletal muscles were damaged. Performed By: #### L AB113, LAB17, [id number] #### Order Puller: SHARON CRAWLEY ([id number]) [facility] [address] [place] [address] RELATIVE INDEX 6.8 % High <=3.0 [facility] Comment on above: Performed By: #### L AB113, LAB17, [id number] #### Order Puller: SHARON CRAWLEY ([id number]) [facility] [address] [place] [address] CK [Catalytic activity/Vol] 1661 U/L High 30-185 [facility] Comment on above: Performed By: #### L AB113, LAB17, [id number] #### Order Puller: SHARON CRAWLEY ([id number]) [address] CK.MB [Mass/Vol] 110.2 ng/mL High <=3.4 [facility] Comment on above: Result Comment: SIMONE [place] COMMENTS: If CK-MB is elevated and the ratio of CK-MB to total CK (relative index) is more than 3, then it is likely that the heart was damaged. A high CK with a relative index below this value suggests that skeletal muscles were damaged. Performed By: #### L AB113, LAB17, [id number] #### Order Puller: SHARON CRAWLEY ([id number]) [address] RELATIVE INDEX 6.6 % High <=3.0 [facility] Comment on above: Performed By: #### L AB113, LAB17, [id number] #### Order Puller: SHARON CRAWLEY ([id number]) [address] CK.total/Creatine kinase.MB [Catalytic ratio]on 10-09-2024 CK [Catalytic activity/Vol] 1333 U/L High 30 - 185 U/L [facility] CK.MB [Mass/Vol] 90 ng/mL High NINF - 3.4 ng/mL [facility] Interpretation and review of laboratory results Abnormal [facility] RELATIVE INDEX 6.8 % High NINF - 3.0 % [facility] [place] [facility] If CK-MB is elevated and the ratio of CK-MB to total CK (relative index) is more than 3, then it is likely that the heart was damaged. A high CK with a relative index below this value suggests that skeletal muscles were damaged. [facility] CK [Catalytic activity/Vol] 1661 U/L High 30 - 185 U/L [facility] CK.MB [Mass/Vol] 110.2 ng/mL High NINF - 3.4 ng/mL [facility] Interpretation and review of laboratory results Abnormal [facility] RELATIVE INDEX 6.6 % High NINF - 3.0 % [facility] alth If CK-MB is elevated and the ratio of CK-MB to total CK (relative index) is more than 3, then it is likely that the heart was damaged. A high CK with a relative index below this value suggests that skeletal muscles were damaged. [facility] COMPREHENSIVE METABOLIC PANE Jeison 10-09-2024 Albumin [Mass/Vol] 2.8 g/dL Low 3.4-4.8 [facility] Comment on above: Performed By: #### L AB113, LAB17, [id number] #### Order Puller: SHARON CRAWLEY ([id number]) [address] ALP [Catalytic activity/Vol] 57 U/L Normal 40-150 [facility] Comment on above: Performed By: #### Susi ABMabel, LAB17, [id number] #### Order Puller: SHARON CRAWLEY ([id number]) [facility] ([facility]) [address] [place] [address] ALT [Catalytic activity/Vol] 45 U/L High <30 [facility] Comment on above: Performed By: #### Susi AB113, LAB17, [id number] #### Order Puller: SHARON CRAWLEY ([id number]) [facility] [address] [place] [address] Anion gap [Moles/Vol] 8 mmol/L Normal 3-13 [facility] Comment on above: Performed By: #### L AB113, LAB17, [id number] #### Order Puller: SHARON CRAWLEY ([id number]) [facility] ([facility]) [address] [place] [address] AST [Catalytic activity/Vol] 282 U/L High <34 [facility] Comment on above: Performed By: #### L AB113, LAB17, [id number] #### Order Puller: SHARON CRAWLEY ([id number]) [facility] ([facility]) [address] [place] [address] Bilirubin [Mass/Vol] 0.6 mg/dL Normal <1.2 [facility] Comment on above: Performed By: #### L ABMabel, LAB17, [id number] #### Order Puller: SHARON CRAWLEY ([id number]) [facility] ([facility]) [address] [place] [address] Calcium [Mass/Vol] 8.1 mg/dL Low 8.8-10.0 [facility] Comment on above: Performed By: #### L AB113, LAB17, [id number] #### Order Puller: SHARON CRAWLEY ([id number]) [facility] [address] [place] [address] [place] Chloride [Moles/Vol] 111 mmol/L High 98-107 [facility] Comment on above: Performed By: #### L AB113, LAB17, [id number] #### Order Puller: SHARON CRAWLEY ([id number]) [facility] [address] [place] [address] [place] CO2 [Moles/Vol] 23 mmol/L Normal 23-31 [facility] Comment on above: Performed By: #### L AB113, LAB17, [id number] #### Order Puller: SHAORN CRAWLEY ([id number]) [facility] ([facility]) [address] [place] [address] Creatinine [Mass/Vol] 1.08 mg/dL Normal 0.57-1.11 [facility] Comment on above: Performed By: #### L AB113, LAB17, [id number] #### Order Puller: SHARON CRAWLEY ([id number]) [facility] [address] [place] [address] [place] GLOMERULAR FILTRATION RATE ML/MIN/1.73 SQ M.PREDICTED 56.1 mL/min/1.73m*2 Low >60.0 [facility] Comment on above: Result Comment: Calc ulation based on the Chronic Kidney Disease Epidemiology Collaboration (CKD-EPI) equation refit without adjustment for race Performed By: #### Susi ABMabel, LAB17, [id number] #### Order Puller: SHARON CRAWLEY ([id number]) [facility] [address] [place] [address] Glucose [Mass/Vol] 135 mg/dL High 82-115 [facility] Comment on above: Performed By: #### Susi ABMabel, LAB17, [id number] #### Order Puller: SHARON CRAWLEY ([id number]) [facility] [address] [place] [address] Potassium [Moles/Vol] 3.7 mmol/L Normal 3.5-5.1 [facility] Comment on above: Result Comment: [facility] potassium values may be up to 0.5 mmol/L lower than serum values. Performed By: #### Susi FOREMAN, LAB17, [id number] #### Order Puller: SHARON CRAWLEY ([id number]) [facility] [address] [place] [address] Protein [Mass/Vol] 6.2 g/dL Low 6.4-8.3 [facility] Comment on above: Performed By: #### Susi AB113, LAB17, [id number] #### Order Puller: SHARON CRAWLEY ([id number]) [facility] [address] [place] [address] [place] Sodium [Moles/Vol] 142 mmol/L Normal 136-145 [facility] Comment on above: Performed By: #### L AB113, LAB17, [id number] #### Order Puller: SHARON CRAWLEY ([id number]) [facility] [address] [place] [address] [place] Urea nitrogen [Mass/Vol] 17 mg/dL Normal 9-23 [facility] Comment on above: Performed By: #### L AB113, LAB17, [id number] #### Order Puller: SHARON CRAWLEY ([id number]) [facility] ([facility]) [address] [place] [address] Comprehensive metabolic 1998 panelon 10-09-2024 Albumin [Mass/Vol] 2.8 g/dL Low 3.4 - 4.8 g/dL [facility] ALP [Catalytic activity/Vol] 57 U/L 40 - 150 U/L [facility] ALT [Catalytic activity/Vol] 45 U/L High NINF - 30 U/L [facility] Anion gap [Moles/Vol] 8 mmol/L 3 - 13 mmol/L [facility] AST [Catalytic activity/Vol] 282 U/L High NINF - 34 U/L [facility] Bilirubin [Mass/Vol] 0.6 mg/dL NINF - 1.2 mg/dL [facility] Calcium [Mass/Vol] 8.1 mg/dL Low 8.8 - 10. 0 mg/dL [facility] Chloride [Moles/Vol] 111 mmol/L High 98 - 10 7 mmol/L [facility] CO2 [Moles/Vol] 23 mmol/L 23 - 31 mmol/L [facility] Creatinine [Mass/Vol] 1.08 mg/dL 0.57 - 1.11 mg/dL [facility] GFR/1.73 sq M.predicted (S/P/Bld) [Vol rate/Area] 56.1 mL/min Low - PINF [facility] Comment on above: Calculation based on the Chronic Kidney Disease Epidemiology Collaboration (CKD-EPI) equation refit without adjustment for race Glucose [Mass/Vol] 135 mg/dL High 82 - 115 mg/dL [facility] Interpretation and review of laboratory results Abnormal [facility] Potassium [Moles/Vol] 3.7 mmol/L 3.5 - 5.1 mmol/L [facility] Comment on above: Plasma potassium filiberto ues may be up to 0.5 mmol/L lower than serum values. Protein [Mass/Vol] 6.2 g/dL Low 6.4 - 8.3 g/dL [facility] Sodium [Moles/Vol] 142 mmol/L 136 - 145 mmol/L [facility] Urea nitrogen [Mass/Vol] 17 mg/dL 9 - 23 mg/d L [facility] ECG 12-LEADon 10-09-2024 ECG 12-LEAD IMPRESSION: Sinus rhythm Inferior infarct, recent Nonspecific T abnormalities, lateral leads Prolonged QT interval Compared to ECG 10/08/2024 19:15:31 No significant change is noted Electronically Signed On 10-09-2024 16:19:16 EDT by Sally Cedeno [facility] Lipid Profileon 10-09-2024 CHOL Normal <=200 [facility] Comment on above: Result Comment: Canc elled via OM: Order cancelled - Patient discharged Performed By: #### L 500.4100, L100.0500 #### [facility] Laboratory [address] [place], [address] CHOL:HDL Normal [facility] Comment on above: Result Comment: Canc elled via OM: Order cancelled - Patient discharged Performed By: #### L 500.4100, L100.0500 #### [facility] Laboratory [address] [place], [address] CLDL Normal [facility] Comment on above: Result Comment: Canc elled via OM: Order cancelled - Patient discharged Performed By: #### L 500.4100, L100.0500 #### [facility] Laboratory [address] [place], [address] HDL Normal [facility] Comment on above: Result Comment: Canc elled via OM: Order cancelled - Patient discharged Performed By: #### L 500.4100, L100.0500 #### [facility] [address] [place], [address] TRIG Normal [facility] Comment on above: Result Comment: Canc elled via OM: Order cancelled - Patient discharged Performed By: #### L 500.4100, L100.0500 #### [facility] [address] [place], [address] VLDL Normal 5-40 [facility] Comment on above: Result Comment: Canc elled via OM: Order cancelled - Patient discharged Performed By: #### L 500.4100, L100.0500 #### [facility] [address] [place], [address] No Panel Informationon 10-09 P Ruby 45 degrees [facility] AL Interval 172 ms [facility] QRS Ruby -36 degrees [facility] QRSD Interval 98 ms [facility] Interval 485 ms [facility] QTC Interval 505 ms [facility] T Wave Ruby 256 degrees [facility] Sinus rhythm Inferior infarct, recent Nonspecific T abnormalities, lateral leads Prolonged QT interval Compared to ECG 10/08/2024 19:15:31 No significant change is noted Electronically Signed On 10-09-2024 16:19:16 EDT by Sally Cedeno CV Sally Purcell MD - 10/09/2024 IMPRESSION: Sinus rhythm Inferior infarct, recent Nonspecific T abnormalities, lateral leads Prolonged QT interval Compared to ECG 10/08/2024 19:15:31 No significant change is noted Electronically Signed On 10-09-2024 16:19:16 EDT by Sally Cedeno [facility] Respiratory pathogens DNA an d RNA panel GUSTAVO+non-probe (Lower resp)on 10-09-2024 Acinetobacter baumannii complex Not detected Not Detected [facility] Adenovirus Not detected Not Detected [facility] th Chlamydia pneumoniae Not detected Not Detected [facility] Enterobacter cloacae complex Not detected Not Detected [facility] Escherichia coli Not detected Not Detected [facility] FLUAV RNA GUSTAVO+non-probe Ql (Lower resp) Not detected Not Detected [facility] FLUBV RNA GUSTAVO+non-probe Ql (Lower resp) Not detected Not Detected [facility] Haemophilus influenzae Not detected Not Detecte d [facility] Human Metapneumovirus Not detected Not Detected [facility] Rhinovirus/Enterovirus Not detected Not Detected [facility] Interpretation and review of laboratory results Normal [facility] Klebsiella (Enterobacter) aerogenes Not detected Not Detected [facility] ealth Klebsiella oxytoca Not detected Not Detected [facility] Klebsiella pneumoniae Not detected Not Detected [facility] Legionella pneumophila Not detected Not Detecte d [facility] Moraxella catarrhalis Not detected Not Detected [facility] Mycoplasma pneumoniae Not detected Not Detected [facility] Parainfluenza virus Not detected Not Detected S [facility] Proteus spp Not detected Not Detected [facility] lt Pseudomonas aeruginosa Not detected Not Detecte d [facility] RSV RNA GUSTAVO+probe Ql (Resp) Not detected Not Detected [facility] S. agalactiae Org specific cx Ql (Vag fld) Not detected Not Detected [facility] SARS-CoV-2 (COVID-19) RNA GUSTAVO+non-probe Ql (Nph) Not detected Not Detected [facility] SARS-CoV-2 (COVID-19) RNA GUSTAVO+probe Ql (Unsp spec) Methodology: Multiplex PCR This panel does not test for SARS-CoV-2 (Covid-19). The following antimicrobial resistance gene is reported if the appropriate organism is detected: mecA. The following antimicrobial resistance genes are reported if detected and the appropriate organisms are detected: CTX-M, IMP, KPC, NDM, OXA-48-like, and VIM. [facility] Serratia marcescens Not detected Not Detected [facility] Staphylococcus aureus Not detected Not Detected [facility] Streptococcus pneumoniae Not detected Not Detec jorge [facility] Streptococcus pyogenes Not detected Not Detecte d [facility] Vital signson 10-09-2024 Heart rate 65 /min bpm [facility] 12 Lead EKGon 10-08-2024 12 Lead E[address] [facility] Cardiovascular Services [address] [place] [address] 12 Lead EKG 10/08/24 0402 MR#: [id number] Acct: [id number] Name: LUCAS ASTUDILLO Rep #: [id number] : 1955 68 From: He Musa MD Attending Dr: Dr. Mehnaz Gonzalez DO Status: D IS IN Ordering Dr: Brando Crooks DO Date: 10/08/24 Location: ICU Sex: F C Admitted: 10/08/24 Test Reason : CP Blood Pressure : */* mmHG Vent. Rate : 65 BPM Atrial Rate : 65 BPM P-R Int : 178 ms QRS Dur : 108 ms QT Int : 418 ms P-R-T Axes : 55 54 103 degrees QTcB Int : 434 ms Critical Test Result: STEMI Sinus rhythm with marked sinus arrhythmia ST elevation consider inferior injury or acute infarct ACUTE WA / STEMI Consider right ventricular involvement in acute inferior infarct Abnormal ECG Confirmed by HE MUSA MD ([id number]), rewrite editor SATHYA JIMENEZ ([id number]) on 10/10/2024 11:30:29 AM Referred By: TB Confirmed By: HE MUSA MD 10/10/24 1130 Date He Musa MD CC: Dr. Mehnaz Gonzalez DO; Dr. Brando Crooks DO; Dr. Eugenio Peralta MD Signed Normal [facility] Abdomen Single View (Portabl e)on 10-08-2024 Abdomen Single View (Portable) [facility] Imaging Services [address] [place] [address] [id number] Abdomen Single View (Portable) MR#: [id number] Acct: [id number] Name: LUCAS ASTUDILLO Rep #: [id number] : 1955 F 68 From: Almaz Johnson nd, MD PCP: Dr. Eugenio Peralta MD Status: ADM IN Study: Abdomen Single View (Portable) Date of Exam: 0 10/08/24 Exam# [id number] Ordering Dr: Dylan Soni DO PROCEDURE: ABDOMEN SINGLE VIEW (PORTABLE) 10/08/2024 REASON FOR EXAM: POST INTUBATION TECHNIQUE: ABDOMEN SINGLE VIEW (PORTABLE) COMPARISON: None. FINDINGS: Hardware: Partially visualized gastric tube with side hole and tip overlying the expected region of the body of the stomach. Bowel gas: The visualized bowel loops are normal caliber. Bones: There are degenerative changes of the spine. Other: See same day chest radiograph for discussion of bilateral pulmonary opacities. RAD/Abdomen Single View (Portable) IMPRESSION: Gastric tube placement as described. Reading Location: [facility] CC: Dr. Dylan Soni DO; Dr. Eugenio Peralta MD Umbrella Mender: Signed Normal [facility] Absolute lymphocyte countOrd ered By: Brando Crooks on 10-08-2024 Lymphocytes Auto (Unsp spec) [#/Vol] 2.41 10*3/uL 0.83-4.51 [facility] Absolute neutrophil countOrd ered By: Brando Crooks on 10-08-2024 Neutrophils (Bld) [#/Vol] 4.0 10*3/uL 2.0-7.7 [facility] Activated partial thrombopla stin time (aPTT) in platelet poor plasma by coagulation aOrdered By: Brando Crooks on 10-08-2024 aPTT Coag (PPP) [Time] 27.4 s 24.1-36.2 [facility] Anion gap in Serum or Plasma Ordered By: Brando Crooks on 10-08-2024 Anion gap [Moles/Vol] 13 mmol/L 5-15 [facility] Automated lymphocyte count a s percentage of total leukocytesOrdered By: Brando Crooks on 10-08-2024 Lymphocytes/100 WBC Auto (Unsp spec) 34.9 % 19-41 [facility] BLOOD CULTUREon 10-08-2024 Bacteria identified Cx Nom (Bld) BLOOD CULTURE Reference No growth at 5 days ORDER COMMENTS: Blood Collection Site: Left Wrist [ S = SUSCEPTIBLE R = RESISTANT I = INTERMEDIATE S-DD = Susceptible-dose dependent NS = Non-susceptible NO = No Interpretation ] Normal [facility] Comment on above: Performed By: #### L AB113, [id number], LAB17 #### Order Puller: SHARON CRAWLEY ([id number]) [facility] [address] [place] [address] Bacteria identified Cx Nom (Bld) BLOOD CULTURE Reference No growth at 5 days ORDER COMMENTS: Blood Collection Site: Right Forearm [ S = SUSCEPTIBLE R = RESISTANT I = INTERMEDIATE S-DD = Susceptible-dose dependent NS = Non-susceptible NO = No Interpretation ] Normal [facility] Comment on above: Performed By: #### L AB113, [id number], LAB17 #### Order Puller: SHARON CRAWLEY ([id number]) [facility] ([facility]) [address] [place] [address] BLOOD GAS ARTERIALon 025 AMOUNT OF OXYGEN 50 Normal [facility] Comment on above: Performed By: #### L AB113, LAB17, [id number] #### Order Puller: SHARON CRAWLEY ([id number]) [facility] [address] [place] [address] Base excess Calc (Bld) [Moles/Vol] -0.7000 mmol/L Normal -3.0-3.0 [facility] Comment on above: Performed By: #### Susi ABMabel, LAB17, [id number] #### Order Puller: SHARON CRAWLEY ([id number]) [facility] [address] [place] [address] CO2 [Moles/Vol] 23.9 mmol/L Normal 23.0-27.0 [facility] Comment on above: Performed By: #### Susi ABMabel, LAB17, [id number] #### Order Puller: SHARON CRAWLEY ([id number]) [facility] [address] [place] [address] HCO3 (Bld) [Moles/Vol] 22.9 mmol/L Normal 21.0-25.0 [facility] Comment on above: Performed By: #### Susi FOREMAN, LAB17, [id number] #### Order Puller: SHARON CRAWLEY ([id number]) [facility] [address] [place] [address] Hemoglobin (Bld) [Mass/Vol] 14.8 g/dL Normal Screen only [facility] Comment on above: Performed By: #### Susi ABMabel, LAB17, [id number] #### Order Puller: SHARON CRAWLEY ([id number]) [facility] [address] [place] [address] OXYGEN SATURATION (%) IN ARTERIAL BLOOD 97.7 % Normal 95.0-100.0 [facility] Comment on above: Performed By: #### Susi ABMabel, LAB17, [id number] #### Order Puller: SHARON CRAWLEY ([id number]) [facility] [address] [place] [address] [place] PCO2 ARTERIAL 34.6 mm Hg Low >35.0-<45.0 [facility] Comment on above: Performed By: #### L AB113, LAB17, [id number] #### Order Puller: SHARON CRAWLEY ([id number]) [facility] ([facility]) [address] [place] [address] PH ARTERIAL 7.438 Normal 7.350-7.450 [facility] Comment on above: Performed By: #### L AB113, LAB17, [id number] #### Order Puller: SHARON CRAWLEY ([id number]) [facility] ([facility]) [address] [place] [address] PO2 ARTERIAL 105.4 mm Hg High 80.0-100.0 [facility] Comment on above: Performed By: #### Susi AB113, LAB17, [id number] #### Order Puller: SHARON CRAWLEY ([id number]) [facility] [address] [place] [address] SOURCE OF OXYGEN Ventilator Normal [facility] Comment on above: Performed By: #### L AB113, LAB17, [id number] #### Order Puller: SHARON CRAWLEY ([id number]) [facility] [address] [place] [address] [place] BUN/creatinine ratioOrdered By: Brando Crooks on 10-08-2024 Urea nitrogen/Creatinine [Mass ratio] 10.9 mg/mg 01-16 [facility] Basic Metabolic Profile (BMP )on 10-08-2024 BUN/CRE 10.9 RATIO Normal 01-16 [facility] Comment on above: Performed By: #### L 300.3900, L300.4310, L501.4021, L500.2500, L100.0100 #### [facility] Laboratory [address] [place], [address] Calcium [Mass/Vol] 9.2 mg/dL Normal 7.6-11.0 [facility] Comment on above: Performed By: #### L 300.3900, L300.4310, L501.4021, L500.2500, L100.0100 #### [facility] [address] [place], [address] Chloride [Moles/Vol] 105 mmol/L Normal 98-108 [facility] Comment on above: Performed By: #### L 300.3900, L300.4310, L501.4021, L500.2500, L100.0100 #### [facility] [address] [place], [address] CO2 [Moles/Vol] 22.9 mmol/L Normal 21.0-32.0 [facility] Comment on above: Performed By: #### L 300.3900, L300.4310, L501.4021, L500.2500, L100.0100 #### [facility] [address] [place], [address] Creatinine [Mass/Vol] 1.20 mg/dL Normal 0.70-1.20 [facility] Comment on above: Performed By: #### L 300.3900, L300.4310, L501.4021, L500.2500, L100.0100 #### [facility] [address] [place], [address] ECRCL 50.48 ml/min Normal 50-250 [facility] Comment on above: Performed By: #### L 300.3900, L300.4310, L501.4021, L500.2500, L100.0100 #### [facility] [address] [place], [address] GAP 13 Normal 5-15 [facility] Comment on above: Performed By: #### L 300.3900, L300.4310, L501.4021, L500.2500, L100.0100 #### [facility] [address] [place], [address] GFR/1.73 sq M.predicted among non-blacks MDRD (S/P/Bld) [Vol rate/Area] 49 mL/min/{1.73_m2} Low >60 [facility] Comment on above: Result Comment: mL/m in/1.73m2 CKD-EPI Creatinine Equation (2020) Performed By: #### L 300.3900, L300.4310, L501.4021, L500.2500, L100.0100 #### [facility] [address] [place], [address] Glucose [Mass/Vol] 154 mg/dL High 70-99 [facility] Comment on above: Performed By: #### L 300.3900, L300.4310, L501.4021, L500.2500, L100.0100 #### [facility] [address] [place], [address] Potassium [Moles/Vol] 3.8 mmol/L Normal 3.3-5.1 [facility] Comment on above: Performed By: #### L 300.3900, L300.4310, L501.4021, L500.2500, L100.0100 #### [facility] [address] [place], [address] Sodium [Moles/Vol] 141 mmol/L Normal 133-145 [facility] Comment on above: Performed By: #### L 300.3900, L300.4310, L501.4021, L500.2500, L100.0100 #### [facility] [address] [place], [address] Urea nitrogen [Mass/Vol] 13 mg/dL Normal 4-19 [facility] Comment on above: Performed By: #### L 300.3900, L300.4310, L501.4021, L500.2500, L100.0100 #### [facility] [address] [place], [address] Basophil percentageOrdered B y: Brando Crooks on 10-08-2024 Basophils/100 WBC (Bld) 0.4 % 0-1 W [facility] Blood Gases by CPSon 025 Base excess Calc (Bld) [Moles/Vol] -5 mmol/L Low -2 to +2 [facility] Comment on above: Performed By: #### L 300.3900, L300.4310, L501.4021, L500.2500, L100.0100 #### [facility] [address] [place], [address] Blood Gas Type ART [facility] Comment on above: Performed By: #### L 300.3900, L300.4310, L501.4021, L500.2500, L100.0100 #### [facility] [address] [place], [address] CO2 [Moles/Vol] 22 mmol/L [facility] Comment on above: Performed By: #### L 300.3900, L300.4310, L501.4021, L500.2500, L100.0100 #### [facility] [facility] [address] [place], [address] HCO3 (Bld) [Moles/Vol] 20.4 mmol/L Low 22-26 [facility] Comment on above: Performed By: #### L 300.3900, L300.4310, L501.4021, L500.2500, L100.0100 #### [facility] [address] [place], [address] Mode Not entered [facility] Comment on above: Performed By: #### L 300.3900, L300.4310, L501.4021, L500.2500, L100.0100 #### [facility] [address] [place], [address] O2 Delivery Dev Not entered [facility] Comment on above: Performed By: #### L 300.3900, L300.4310, L501.4021, L500.2500, L100.0100 #### [facility] [address] [place], [address] pCO2 36.6 mmHg Normal 35-45 [facility] Comment on above: Performed By: #### L 300.3900, L300.4310, L501.4021, L500.2500, L100.0100 #### [facility] [address] [place], [address] pH (Bld) 7.35 [pH] Normal 7.35-7.45 [facility] Comment on above: Performed By: #### L 300.3900, L300.4310, L501.4021, L500.2500, L100.0100 #### [facility] [address] [place], [address] PO2 105 mmHG High 75-100 [facility] Comment on above: Performed By: #### L 300.3900, L300.4310, L501.4021, L500.2500, L100.0100 #### [facility] [address] [place], [address] SITE Not entered Normal [facility] Comment on above: Performed By: #### L 300.3900, L300.4310, L501.4021, L500.2500, L100.0100 #### [facility] [address] [place], [address] SO2 98 Normal 95-99 [facility] Comment on above: Performed By: #### L 300.3900, L300.4310, L501.4021, L500.2500, L100.0100 #### [facility] [address] [place], [address] Blood base excess determinat ionOrdered By: Dylan Soni on 10-08-2024 Base excess Calc (BldV) [Moles/Vol] -5 mmol/L Low -2-2 [facility] Blood bicarbonate measuremen tOrdered By: Dylan Soni on 10-08-2024 HCO3 (Bld) [Moles/Vol] 20.4 mmol/L Low 22-26 [facility] Blood cultureOrdered By: Art Rowley on 10-08-2024 Bacteria identified Cx Nom (Bld) No growth in 5 days. [facility] CBC W Auto Differential pane l (Bld)on 10-08-2024 Basophils (Bld) [#/Vol] 0 10*3/uL 0.0 - 0.2 10*3/uL [facility] Basophils/100 WBC (Bld) 0.2 % 0.0 - 2.0 % [facility] Eosinophils (Bld) [#/Vol] 0 10*3/uL 0.0 - 0.5 10*3/uL [facility] Eosinophils/100 WBC (Bld) 0 % 0.0 - 6.0 % [facility] Erythrocyte distribution width (RBC) [Ratio] 14.3 % 11.5 - 15.0 % [facility] Hematocrit (Bld) [Volume fraction] 43.5 % 35.0 - 47.0 % [facility] Hemoglobin (Bld) [Mass/Vol] 14.2 g/dL 11.7 - 16.0 g/dL [facility] Immature granulocytes (Bld) [#/Vol] 0 10*3/uL NINF - 0.1 10*3/uL [facility] Immature granulocytes/100 WBC (Bld) 0.3 % 0.0 - 2.0 % [facility] Interpretation and review of laboratory results Abnormal [facility] Lymphocytes (Bld) [#/Vol] 1 10*3/uL 1.0 - 4.3 10*3/uL [facility] Lymphocytes/100 WBC (Bld) 9 % Low 15.0 - 45.0 % [facility] MCH (RBC) [Entitic mass] 29.1 pg 26. 0 - 34.0 pg [facility] MCHC (RBC) [Mass/Vol] 32.6 % 30.5 - 36.0 % [facility] MCV (RBC) [Entitic vol] 89.1 fL 77.0 - 99.0 fL [facility] Monocytes (Bld) [#/Vol] 0.5 10*3/uL 0.0 - 0.9 10*3/uL [facility] Monocytes/100 WBC (Bld) 4.2 % Low 5.0 - 13.0 % [facility] Neutrophils (Bld) [#/Vol] 9.6 10*3/uL High 1.8 - 7.5 10*3/uL [facility] Neutrophils/100 WBC (Bld) 86.3 % High 38.0 - 82.0 % [facility] Nucleated RBC/100 WBC (Bld) [Ratio] 0 % [facility] Platelet mean volume (Bld) [Entitic vol] 11.3 fL 9.0 - 12.7 fL [facility] Platelets (Bld) [#/Vol] 191 10*3/uL 140 - 440 10*3/uL [facility] RBC (Bld) [#/Vol] 4.88 10*6/uL 3.80 - 5.2 0 10*6/uL [facility] WBC (Bld) [#/Vol] 11.1 10*3/uL High 3.6 - 10.7 10*3/uL [facility] CBC W/Diff, Automatedon 09-27-2024 Absolute Lymph 2.41 X10 3/uL Normal 0.83-4.51 [facility] Comment on above: Performed By: #### L 300.3900, L300.4310, L501.4021, L500.2500, L100.0100 #### [facility] [address] [place], [address] Absolute Neut 4.0 X10 3/uL Normal 2.0-7.7 [facility] Comment on above: Performed By: #### L 300.3900, L300.4310, L501.4021, L500.2500, L100.0100 #### [facility] [address] [place], [address] Basophils/100 WBC (Bld) 0.4 % Normal 0-1 [facility] Comment on above: Performed By: #### L 300.3900, L300.4310, L501.4021, L500.2500, L100.0100 #### [facility] [address] [place], [address] Eosinophils/100 WBC (Bld) 1.3 % Normal 0-5 [facility] Comment on above: Performed By: #### L 300.3900, L300.4310, L501.4021, L500.2500, L100.0100 #### [facility] [address] [place], [address] Erythrocyte distribution width (RBC) [Ratio] 13.7 % Normal 11.6-14.6 [facility] Comment on above: Performed By: #### L 300.3900, L300.4310, L501.4021, L500.2500, L100.0100 #### [facility] [address] [place], [address] Hematocrit (Bld) [Volume fraction] 40.0 % Normal 37-47 [facility] Comment on above: Performed By: #### L 300.3900, L300.4310, L501.4021, L500.2500, L100.0100 #### [facility] [address] [place], [address] Hemoglobin (Bld) [Mass/Vol] 12.9 g/dL Normal 12.0-15.0 [facility] Comment on above: Performed By: #### L 300.3900, L300.4310, L501.4021, L500.2500, L100.0100 #### [facility] [address] [place], [address] IG% 0.300 Normal 0.0-0.9 [facility] Comment on above: Result Comment: IG% - Immature Granulocytes (promyelocytes, myelocytes and metamyelocytes) > 1% indicates that a LEFT SHIFT is Present. Performed By: #### L 300.3900, L300.4310, L501.4021, L500.2500, L100.0100 #### [facility] [address] [place], [address] Lymphocytes/100 WBC (Bld) 34.9 % Normal 19-41 [facility] Comment on above: Performed By: #### L 300.3900, L300.4310, L501.4021, L500.2500, L100.0100 #### [facility] [address] [place], [address] MCH (RBC) [Entitic mass] 29.3 pg Normal 27.0-32.0 [facility] Comment on above: Performed By: #### L 300.3900, L300.4310, L501.4021, L500.2500, L100.0100 #### [facility] [address] [place], [address] MCHC (RBC) [Mass/Vol] 32.3 g/dL Normal 32-36 [facility] Comment on above: Performed By: #### L 300.3900, L300.4310, L501.4021, L500.2500, L100.0100 #### [facility] [address] [place], [address] MCV (RBC) [Entitic vol] 90.7 fL Normal 81-99 [facility] Comment on above: Performed By: #### L 300.3900, L300.4310, L501.4021, L500.2500, L100.0100 #### [facility] [address] [place], [address] Monocytes/100 WBC (Bld) 5.9 % Normal 0-10 [facility] Comment on above: Performed By: #### L 300.3900, L300.4310, L501.4021, L500.2500, L100.0100 #### [facility] [address] [place], [address] Neutrophils/100 WBC (Bld) 57.2 % Normal 47-70 [facility] Comment on above: Performed By: #### L 300.3900, L300.4310, L501.4021, L500.2500, L100.0100 #### [facility] [address] [place], [address] Nucleated RBC (Bld) [#/Vol] 0 10*3/uL Normal 0-5 [facility] Comment on above: Performed By: #### L 300.3900, L300.4310, L501.4021, L500.2500, L100.0100 #### [facility] [address] [place], [address] Platelet mean volume (Bld) [Entitic vol] 11.3 fL Normal 6.2-12.0 [facility] Comment on above: Performed By: #### L 300.3900, L300.4310, L501.4021, L500.2500, L100.0100 #### [facility] [address] [place], [address] Platelets (Bld) [#/Vol] 165 10*3/uL Normal 150-450 [facility] Comment on above: Performed By: #### L 300.3900, L300.4310, L501.4021, L500.2500, L100.0100 #### [facility] [address] [place], [address] RBC (Bld) [#/Vol] 4.41 10*6/uL Normal 4.2-5.4 [facility] Comment on above: Performed By: #### L 300.3900, L300.4310, L501.4021, L500.2500, L100.0100 #### [facility] [address] [place], [address] RDW SD 45.1 fl High 35.1-43.9 [facility] Comment on above: Performed By: #### L 300.3900, L300.4310, L501.4021, L500.2500, L100.0100 #### [facility] [address] [place], [address] WBC (Bld) [#/Vol] 6.9 10*3/uL Normal 4.4-11.0 [facility] Comment on above: Performed By: #### L 300.3900, L300.4310, L501.4021, L500.2500, L100.0100 #### [facility] [address] [place], [address] CBC WITH AUTO DIFFERENTIALon 10-08-2024 Basophils (Bld) [#/Vol] 0.0 10*3/uL Normal 0.0-0.2 [facility] Comment on above: Performed By: #### Susi AB113, LAB17, [id number] #### Order Puller: SHARON CRAWLEY ([id number]) [facility] [address] [place] [address] [place] Basophils/100 WBC (Bld) 0.2 % Normal 0.0-2.0 [facility] Comment on above: Performed By: #### Susi AB113, LAB17, [id number] #### Order Puller: SHARON CRAWLEY ([id number]) [facility] [address] [place] [address] [place] Eosinophils (Bld) [#/Vol] 0.0 10*3/uL Normal 0.0-0.5 [facility] Comment on above: Performed By: #### Susi AB113, LAB17, [id number] #### Order Puller: SHARON CRAWLEY ([id number]) [facility] [address] [place] [address] [place] Eosinophils/100 WBC (Bld) 0.0 % Normal 0.0-6.0 [facility] Comment on above: Performed By: #### L AB113, LAB17, [id number] #### Order Puller: SHARON CRAWLEY ([id number]) [facility] [address] Erythrocyte distribution width (RBC) [Ratio] 14.3 % Normal 11.5-15.0 [facility] Comment on above: Performed By: #### Susi AB113, LAB17, [id number] #### Order Puller: SHARON CRAWLEY ([id number]) [facility] [address] [place] [address] Hematocrit (Bld) [Volume fraction] 43.5 % Normal 35.0-47.0 [facility] Comment on above: Performed By: #### Susi ABMabel, LAB17, [id number] #### Order Puller: SHARON CRAWLEY ([id number]) [address] Hemoglobin (Bld) [Mass/Vol] 14.2 g/dL Normal 11.7-16.0 [facility] Comment on above: Performed By: #### Susi FOREMAN, LAB17, [id number] #### Order Puller: SHARON CRAWLEY ([id number]) [facility] [address] [place] [address] IMMATURE GRANS % 0.3 % Normal 0.0-2.0 [facility] Comment on above: Performed By: #### Susi ABMabel, LAB17, [id number] #### Order Puller: SHARON CRAWLEY ([id number]) [address] IMMATURE GRANS ABSOLUTE 0.0 10*3/uL Normal <0.1 [facility] Comment on above: Performed By: #### Susi ABMabel, LAB17, [id number] #### Order Puller: SHARON CRAWLEY ([id number]) [facility] [address] [place] [address] Lymphocytes (Bld) [#/Vol] 1.0 10*3/uL Normal 1.0-4.3 [facility] Comment on above: Performed By: #### Susi ABMabel, LAB17, [id number] #### Order Puller: SHARON [id number]) [facility] [address] [place] [address] Lymphocytes/100 WBC (Bld) 9.0 % Low 15.0-45.0 [facility] Comment on above: Performed By: #### L AB113, LAB17, [id number] #### Order Puller: SHARON CRAWLEY ([id number]) [facility] [address] [place] [address] MCH (RBC) [Entitic mass] 29.1 pg Normal 26.0-34.0 [facility] Comment on above: Performed By: #### L AB113, LAB17, [id number] #### Order Puller: SHARON CRAWLEY ([id number]) [facility] [address] [place] [address] MCHC 32.6 % Normal 30.5-36.0 [facility] Comment on above: Performed By: #### Susi AB113, LAB17, [id number] #### Order Puller: SHARON CRAWLEY ([id number]) [facility] [address] [place] [address] MCV (RBC) [Entitic vol] 89.1 fL Normal 77.0-99.[address] [facility] Comment on above: Performed By: #### L AB113, LAB17, [id number] #### Order Puller: SHARON CRAWLEY ([id number]) [facility] [address] [place] [address] Monocytes (Bld) [#/Vol] 0.5 10*3/uL Normal 0.0-0.9 [facility] Comment on above: Performed By: #### L AB113, LAB17, [id number] #### Order Puller: SHARON CRAWLEY ([id number]) [facility] [address] [place] [address] Monocytes/100 WBC (Bld) 4.2 % Low 5.0-13.[address] [facility] Comment on above: Performed By: #### L AB113, LAB17, [id number] #### Order Puller: SHARON [id number]) [facility] [address] [place] [address] NEUTROPHILS ABSOLUTE 9.6 10*3/uL High 1.8-7.5 [facility] Comment on above: Performed By: #### Susi AB113, LAB17, [id number] #### Order Puller: SHARON CRAWLEY ([id number]) [facility]) [address] [place] [address] Neutrophils/100 WBC (Bld) 86.3 % High 38.0-82.0 [facility] Comment on above: Performed By: #### Susi AB113, LAB17, [id number] #### Order Puller: SHARON CRAWLEY ([id number]) [facility]) [address] [place] [address] NRBC 0.0 /100 WBCs Normal 0.0-2.0 [facility] Comment on above: Performed By: #### Susi ABMabel, LAB17, [id number] #### Order Puller: SHARON CRAWLEY ([id number]) [facility]) [address] [place] [address] Platelet mean volume (Bld) [Entitic vol] 11.3 fL Normal 9.0-12.7 [facility] Comment on above: Performed By: #### Susi AB113, LAB17, [id number] #### Order Puller: SHARON CRAWLEY ([id number]) [facility]) [address] [place] [address] Platelets (Bld) [#/Vol] 191 10*3/uL Normal 140-440 [facility] Comment on above: Performed By: #### Susi ABMabel, LAB17, DPS112 #### Order Puller: SHARON CRAWLEY ([id number]) [facility]) [address] [place] [address] RBC (Bld) [#/Vol] 4.88 10*6/uL Normal 3.80-5.20 [facility] Comment on above: Performed By: #### Susi ABMabel, LAB17, SFP052 #### Order Puller: SHARON CRAWLEY ([id number]) [facility]) [address] [place] [address] WBC (Bld) [#/Vol] 11.1 10*3/uL High 3.6-10.7 [facility] Comment on above: Performed By: #### L AB113, LAB17, [id number] #### Order Puller: SHARON CRAWLEY ([id number]) [facility]) [address] [place] [address] [place] CKon 10-08-2024 CK [Catalytic activity/Vol] 2002 U/L High 30-185 [facility] Comment on above: Performed By: #### L AB113, [id number], LAB17 #### Order Puller: SHARON CRAWLEY ([id number]) [facility]) [address] [place] [address] CO2 (BldV) [Moles/Vol]Ordere d By: Mehnaz Gonzalez on 10-08-2024 CO2 [Moles/Vol] 24 mmol/L -33 [facility] CO2 (BldV) [Moles/Vol]Ordere d By: Dylan Soni on 10-08-2024 CO2 [Moles/Vol] 25 mmol/L [facility] COMPREHENSIVE METABOLIC PANE Jeison 10-08-2024 Albumin [Mass/Vol] 3.1 g/dL Low 3.4-4.8 [facility] Comment on above: Performed By: #### L AB113, VFR552, LAB17 #### Order Puller: SHARON CRAWLEY ([id number]) [facility]) [address] [place] [address] ALP [Catalytic activity/Vol] 67 U/L Normal 40-150 [facility] Comment on above: Performed By: #### L AB113, HVT056, LAB17 #### Order Puller: SHARON CRAWLEY ([id number]) [facility] [address] [place] [address] ALT [Catalytic activity/Vol] 51 U/L High <30 [facility] Comment on above: Performed By: #### L AB113, RSL185, LAB17 #### Order Puller: SHARON CRAWLEY ([id number]) [facility] ([facility]) [address] [place] [address] Anion gap [Moles/Vol] 7 mmol/L Normal 3-13 [facility] Comment on above: Performed By: #### L AB113, OTA053, LAB17 #### Order Puller: SHARON CRAWLEY ([id number]) [facility] ([facility]) [address] [place] [address] [place] AST [Catalytic activity/Vol] 309 U/L High <34 [facility] Comment on above: Performed By: #### L AB113, UAM381, LAB17 #### Order Puller: SHARON CRAWLEY ([id number]) [facility] [address] [place] [address] Bilirubin [Mass/Vol] 0.6 mg/dL Normal <1.2 [facility] Comment on above: Performed By: #### L AB113, WSS747, LAB17 #### Order Puller: SHARON CRAWLEY ([id number]) [facility] [address] [place] [address] Calcium [Mass/Vol] 8.5 mg/dL Low 8.8-10.0 [facility] Comment on above: Performed By: #### L AB113, NPB636, LAB17 #### Order Puller: SHARON CRAWLEY ([id number]) [facility] [address] [place] [address] [place] Chloride [Moles/Vol] 109 mmol/L High 98-107 [facility] Comment on above: Performed By: #### L AB113, FXU246, LAB17 #### Order Puller: SHARON CRAWLEY ([id number]) [facility] [address] [place] [address] [place] CO2 [Moles/Vol] 25 mmol/L Normal 23-31 [facility] Comment on above: Performed By: #### L AB113, TRK112, LAB17 #### Order Puller: SHARON CRAWLEY ([id number]) [facility] ([facility]) [address] [place] [address] [place] Creatinine [Mass/Vol] 1.32 mg/dL High 0.57-1.11 [facility] Comment on above: Performed By: #### L AB113, CDB633, LAB17 #### Order Puller: SHARON CRAWLEY ([id number]) [facility] [address] [place] [address] [place] GLOMERULAR FILTRATION RATE ML/MIN/1.73 SQ M.PREDICTED 44.1 mL/min/1.73m*2 Low >60.0 [facility] Comment on above: Result Comment: Calc ulation based on the Chronic Kidney Disease Epidemiology Collaboration (CKD-EPI) equation refit without adjustment for race Performed By: #### L AB113, KRS294, LAB17 #### Order Puller: SHARON CRAWLEY ([id number]) [facility]) [address] [place] [address] [place] Glucose [Mass/Vol] 159 mg/dL High 82-115 [facility] Comment on above: Performed By: #### L AB113, AKF925, LAB17 #### Order Puller: SHARON CRAWLEY ([id number]) [facility]) [address] [place] [address] [place] Potassium [Moles/Vol] 4.1 mmol/L Normal 3.5-5.1 [facility] Comment on above: Result Comment: [facility] potassium values may be up to 0.5 mmol/L lower than serum values. Performed By: #### L AB113, LSC542, LAB17 #### Order Puller: SHARON CRAWLEY ([id number]) [facility] [address] [place] [address] [place] Protein [Mass/Vol] 6.8 g/dL Normal 6.4-8.3 [facility] Comment on above: Performed By: #### L AB113, VPK722, LAB17 #### Order Puller: SHARON CRAWLEY ([id number]) [facility] [address] [place] [address] [place] Sodium [Moles/Vol] 141 mmol/L Normal 136-145 [facility] Comment on above: Performed By: #### L AB113, PKC748, LAB17 #### Order Puller: SHARON CRAWLEY ([id number]) [facility] [address] [place] [address] Urea nitrogen [Mass/Vol] 17 mg/dL Normal 9-23 [facility] Comment on above: Performed By: #### L AB113, OYG859, LAB17 #### Order Puller: SHARON CRAWLEY ([id number]) [facility] ([facility]) [address] [place] [address] CPK Total, Creatine Kinaseon 10-08-2024 CPK TOTAL 81 U/L Normal 24-195 [facility] Comment on above: Order Comment: Comme nts: DC when propofol is d/c'd Performed By: #### L 300.3900, L300.4310, L501.4021, L500.2500, L100.0100 #### [facility] [address] [place], [address] CVS/PCIREPORTon 10-08-2024 CVS/PCIREPORT [facility] [address] [place] [address] MR#: [id number] Acct: [id number] Name: LUCAS ASTUDILLO Rep #: [id number] : 1955 68 From: Eve Rowley MD Primary Care: Dr. Eugenio Peralta MD Status: ADM IN Referring Dr: Sex: F C PCI Cardiac Cath Report PCI Report: PCI Cardiac Cath Report PCI Report: DATE OF PROCEDURE: October 08, 2024 PROCEDURES PERFORMED: 1. Selective left and right coronary angiography. 2. Moderate conscious sedation 3. Percutaneous coronary intervention IVUS guided to RCA 4. C Indications FOR PROCEDURE: Inferior STEMI Complications: NONE Specimen: NONE Access: Right femoral artery and vein Hemostasis: Perclose DESCRIPTION OF PROCEDURE: After informed consent was obtained, the patient was brought down to the bundle tier and labeler.As soon as the patient entered the bundle tier and labeler, she went into vfib arrest requiring defibrillationx2 and requiring intubation and CPR for 1 round before obtaining ROSC. Moderate conscious sedation, administration, documentation and physiologic monitoring of the IV conscious sedation was performed under my direct supervision by a trained registered nurse. Intraservice time started at 5.0 and ended at 6.0 Using modified Seldinger technique, right radial artery was then cannulated. A 6-Congolese sheath was inserted, sheath was flushed. 6FR JR4 guide catheter was used to engage the right coronary and 6f JL-4 catheter was used to engage Left coronary artery. Multiple orthogonal images were then taken. RCA: Using 6 Fr JR4, RCA was wired then 2.5x12 NC and 3.0 NC were used to dilate the lesion then overlapping 3.5x22 Aren stent and 3.5x18 Aren stent were deployed at 12 elizabeth and post dilated using 3.5mm NC and 4.0 mm NC. Final angiogram showed normal flow, no dissection. IVUS was used for stent optimization, rule out dissection BASIM flow pre: 0 BASIM flow post :3 Lesion severity before PCI: 100% Lesion severity after PCI: 0% Then we did RHC which showed: RA: 12mmHg PA: 54/30(36) PCWP: 16 PA sat: 64% HEMODYNAMICS: LVEDP 21 Right femoral sheath was removed and perclose was used for hemostasis. 7fr RFV was used and sutured in place. DESCRIPTION OF CORONARY ANATOMY: The left main originates from the left coronary sinus of Valsalva in the usual fashion. There was good reflux of dye from this vessel into the coronary sinus, there was no ventriculization or dampening of pressure noted. The LM bifurcates into LAD and LCX . It has no significant CAD noted. The left anterior descending artery originates from the left main in the usual fashion. It runs in the anterior interventricular groove giving rise to large size diagonal branch and multiple septal perforators and continues distally to wrap around the apex. It has no significant CAD noted. Left circumflex artery is dominant originates from the bifurcation in the usual fashion, then courses its way down the lateral atrioventricular groove, giving rise to 2 large-sized OM branches. It has no significant CAD noted. RCA originates from the right coronary sinus of Valsalva in the usual fashion, it is dominant There was 100% lesion mid RCA. CONCLUSION: 1. Inferior STEMI status post successful IVUS guided percutaneous coronary intervention to RCA using overlapping 3.5x22 [place] stent and 3.5x18 [place] 2. Elevated bilateral filling pressures Recommendations: Continue with aspirin and Brilinta. Hold off beta-usman until she is out of decompensated heart failure. Start atorvastatin 80 mg daily. IV diuresis Ventilation care per ICU team 10/08/24 0653 Date Eve Rowley MD CC: Dr. Dylan Soni DO; Dr. Eugenio Peralta MD Date Dictated: 10/08/24432 Date Transcribed: 10/08/24432 Umbrella Mender: AUTUMN Signed Normal [facility] Carbon dioxide, total [Moles /volume] in Central venous bloodOrdered By: Brando Crooks on 10-08-2024 CO2 [Moles/Vol] 22.9 mmol/L 21.0-32.0 [facility] Cardiac catheterization repo rtOrdered By: Eve Rowley on 10-08-2024 Cardiac catheterization study [facility] Cardiovascular Services [address] [place] [address] MR#: [id number] Acct: [id number] Name: LUCAS ASTUDILLO Rep #: [id number] : 1955 68 From: Eve Rowley MD Primary Care: Dr. Eugenio Peralta MD Status : ADM IN Referring Dr: Sex: F C PCI Cardiac Cath Report PCI Report: PCI Cardiac Cath Report PCI Report: DATE OF PROCEDURE: October 08, 2024 PROCEDURES PERFORMED: 1. Selective left and right coronary angiography. 2. Moderate conscious sedation 3. Percutaneous coronary intervention IVUS guided to RCA 4. [facility] Indications FOR PROCEDURE: Inferior STEMI Complications: NONE Specimen: NONE Access: Right femoral artery and vein Hemostasis: Perclose DESCRIPTION OF PROCEDURE: After informed consent was obtained, the patient was brought down to the bundle tier and labeler.As soon as the patient entered the bundle tier and labeler, she went into vfib arrest requiring defibrillationx2 and requiring intubation and CPR for 1 round before obtaining ROSC. Moderate conscious sedation, administration, documentation and physiologic monitoring of the IV conscious sedation was performed under my direct supervision by a trained registered nurse. Intraservice time started at 5.0 and ended at 6.0 Using modified Seldinger technique, right radial artery was then cannulated. A 6-Congolese sheath was inserted, sheath was flushed. 6FR TS2huxei catheter was used to engage the right coronary and 6f JL-4 catheter was used to engage Left coronary artery. Multiple orthogonal images were then taken. RCA: Using 6 Fr JR4, RCA was wired then 2.5x12 NC and 3.0 NC were used to dilate the lesion then overlapping 3.5x22 [place] stent and 3.5x18 Aren stent were deployed at12 elizabeth and post dilated using 3.5mm NC and 4.0 mm NC. Final angiogram showed normal flow, no dissection. IVUS was used for stent optimization, rule out dissection BASIM flow pre: 0 BASIM flow post :3 Lesion severity before PCI: 100% Lesion severity after PCI: 0% Then we did RHC which showed: RA: 12mmHg PA: 54/30(36) PCWP: 16 PA sat: 64% HEMODYNAMICS: LVEDP 21 Right femoral sheath was removed and perclose was used for hemostasis. 7fr RFV was used and sutured in place. DESCRIPTION OF CORONARY ANATOMY: The left main originates from the left coronary sinus of Valsalva in the usual fashion. There was good reflux of dye from this vessel into the coronary sinus, there was no ventriculization or dampening of pressure noted. The LM bifurcatesinto LAD and LCX . It has no significant CAD noted. The left anterior descending artery originates from the left main in the usual fashion. It runs in the anterior interventricular groove giving rise to large size diagonal branch and multiple septal perforators and continues distally to wrap around the apex. It has no significant CAD noted. Left circumflex artery is dominant originates from the bifurcation in the usual fashion, then courses its way down the lateral atrioventricular groove, giving rise to 2 large-sized OM branches. It has no significant CAD noted. RCA originates from the right coronary sinus of Valsalva in the usual fashion, it is dominant There was 100% lesion mid RCA. CONCLUSION: 1. Inferior STEMI status post successful IVUS guided percutaneous coronary intervention to RCA using overlapping 3.5x22 Aren stent and 3.5x18 Aren 2. Elevated bilateral filling pressures Recommendations: Continue with aspirin and Brilinta. Hold off beta-usman until she is out of decompensated heart failure. Start atorvastatin 80 mg daily. IV diuresis Ventilation care per ICU team 10/08/24 0653 Date _ Eve Rowley MD CC: Dr. Dylan Soni DO; Dr. Eugenio Peralta MD ~ Date Dictated: 10/08/24432 Date Transcribed: 10/08/24432 Umbrella Mender: AJ Signed [facility] Chest 1 View (Portable)on Chest 1 View (Portable) [facility] Imaging Services [address] [place] [address] Chest 1 View (Portable) MR#: [id number] Acct: [id number] Name: LUCAS ASTUDILLO Rep #: [id number] : 1955 F 68 From: Almaz Johnson nd, MD PCP: Dr. Eugenio Peralta MD Status: ADM IN Study: Chest 1 View (Portable) Date of Exam: 10/08/24 Exam# [id number] Ordering Dr: Dylan Soni DO PROCEDURE: CHEST 1 VIEW (PORTABLE) 10/08/2024 REASON FOR EXAM: INTUBATION TECHNIQUE: Frontal view of the chest. COMPARISON: Chest radiograph 05/24/2019. FINDINGS: Hardware: Endotracheal tube approximately 3.5 cm above the level of the irish. Partially visualized gastric tube with side hole and tip coursing below the level of the diaphragm. Heart: The heart size is normal. Lungs: Fluffy bilateral airspace opacities, [id number] eft. No large pleural effusion or pneumothorax. Bones: Degenerative changes are identified within the thoracic spine. RAD/Chest 1 View (Portable) IMPRESSION: 1. Support devices as described. 2. Fluffy bilateral airspace opacities, compatible with pneumonitis/pneumoni a. Reading Location: [facility] CC: Dr. Dylan Soni DO; Dr. Eugenio Peralta MD Umbrella Mender: Signed Normal [facility] Chloride assayOrdered By: Quang Crooks on 10-08-2024 Chloride [Moles/Vol] 105 mmol/L 98-108 [facility] Comprehensive metabolic 1998 panelon 10-08-2024 Albumin [Mass/Vol] 3.1 g/dL Low 3.4 - 4.8 g/dL [facility] ALP [Catalytic activity/Vol] 67 U/L 40 - 150 U/L [facility] ALT [Catalytic activity/Vol] 51 U/L High NINF - 30 U/L [facility] Anion gap [Moles/Vol] 7 mmol/L 3 - 13 mmol/L [facility] AST [Catalytic activity/Vol] 309 U/L High NINF - 34 U/L [facility] Bilirubin [Mass/Vol] 0.6 mg/dL NINF - 1.2 mg/dL [facility] Calcium [Mass/Vol] 8.5 mg/dL Low 8.8 - 10. 0 mg/dL [facility] Chloride [Moles/Vol] 109 mmol/L High 98 - 10 7 mmol/L [facility] CO2 [Moles/Vol] 25 mmol/L 23 - 31 mmol/L [facility] Creatinine [Mass/Vol] 1.32 mg/dL High 0.57 - 1.11 mg/dL [facility] GFR/1.73 sq M.predicted (S/P/Bld) [Vol rate/Area] 44.1 mL/min Low - PINF [facility] Comment on above: Calculation based on the Chronic Kidney Disease Epidemiology Collaboration (CKD-EPI) equation refit without adjustment for race Glucose [Mass/Vol] 159 mg/dL High 82 - 115 mg/dL [facility] Potassium [Moles/Vol] 4.1 mmol/L 3.5 - 5.1 mmol/L [facility] Comment on above: Plasma potassium filiberto ues may be up to 0.5 mmol/L lower than serum values. Protein [Mass/Vol] 6.8 g/dL 6.4 - 8.3 g/dL [facility] Sodium [Moles/Vol] 141 mmol/L 136 - 145 mmol/L [facility] Urea nitrogen [Mass/Vol] 17 mg/dL 9 - 23 mg/d L [facility] Consulton 10-08-2024 Consult Internal Medicine: MICU Initial Consult Name: Lucas Astudillo : 1955(68 y.o.) Date: 10/08/24 Subjective: Chief Complaint: VF arrest HPI: 68oF presented to [facility] ER earlier today with chest pain. This had been going on for several days - pt had attributed it to stopping her reflex meds. Pt was diagnosed with a STEMI in the ER and brought to the bundle tier and labeler. During the case (prior to PCI), pt had 3 episodes of VT requiring CPR and defibrillation. She was subsequently intubated and noted to have frothing secretions consistent with pulmonary edema. The case proceeded and her RCA was stented. While recovering, her temp spiked to 101.9F and she was started on abx. A PICC placed today (10/08) at [facility] for sedation/pressors. She was transferred to [facility] for further management. On exam, she opens her eyes to voice and follows simple commands. There is no significant peripheral edema. Somewhat thick secretions on suctioning. Lungs clear anteriorly. She is currently tolerating being off pressors. A bedside echo shows an EF less than 20%. Medical History[1] Surgical History[2] Family History[3] Social History Socioeconomic History Marital status: Spouse name: Not on file Number of children: Not on file Years of education: Not on file Highest education level: Not on file Occupational History Not on file Tobacco Use Smoking status: Not on file Smokeless tobacco: Not on file Substance and Sexual Activity Alcohol use: Not on file Drug use: Not on file Sexual activity: Not on file Other Topics Concern Not on file Social History Narrative Not on file Social Drivers of Health Financial Resource Strain: Low Risk (12/23/2023) Received from [facility] Overall Financial Resource Strain (CARDIA) Difficulty of Paying Living Expenses: Not hard at all Food Insecurity: No Food Insecurity (12/23/2023) Received from [facility] Hunger Vital Sign Worried About Running Out of Food in the Last Year: Never true Ran Out of Food in the Last Year: Never true Transportation Needs: No Transportation Needs (12/23/2023) Received from [facility] PRAPARE - Transportation Lack of Transportation (Medical): No Lack of Transportation (Non-Medical): No Physical Activity: Insufficiently Active (12/23/2023) Received from [facility] Exercise Vital Sign Days of Exercise per Week: 3 days Minutes of Exercise per Session: 20 min Stress: No Stress Concern Present (12/23/2023) Received from [facility] [place] [employer] - Occupational Stress Questionnaire Feeling of Stress : Only a little Social Connections: Unknown (12/23/2023) Received from [facility] Social Connection and Isolation Panel [NHANES] Frequency of Communication with Friends and Family: Three times a week Frequency of Social Gatherings with Friends and Family: Once a week Attends Protestant Services: Patient declined Active Member of Clubs or Organizations: Patient declined Attends Club or Organization Meetings: Patient declined Marital Status: Intimate Partner Violence: Not on file Housing Stability: Unknown (11/07/2022) Received from [facility] Housing Stability Vital Sign Unable to Pay for Housing in the Last Year: No Number of Places Lived in the Last Year: Not on file Unstable Housing in the Last Year: No Allergies[4] Prior to Admission medications Medication Sig Start Date End Date Taking? Authorizing Provider lisinopril 10 MG tablet Take 10 mg by mouth daily. 08/29/24 02/25/25 Yes Historical Provider, pantoprazole (ProtoNix) 40 MG EC tablet Take 40 mg by mouth daily. 12/14/23 Yes Historical Provider, Objective: Oxygen Delivery: VITALS: There were no vitals taken for this visit. CURRENT PULSE OXIMETRY: Review of Systems Intubated, unable to obtain Constitutional: General Appearance [x]WDWN []Obese []Cachectic []Thin []Ill Eyes: Inspection of Pupils/Irises Pupils round and react: [x]Yes []No Sclera: []Icteric [x]Non-Icteric Inspection of Conjunctiva/Lids Conjunctiva: []Injected [x]Non-Injected Lids: [x]Intact []Lesion Present ENT/Mouth: External Inspection of ears/nose [x] Normal [] Scar/Lesion/Mass Inspection of teeth/lips/gums Dentition: [x][place] Teeth []Dentures Lips/Gums: [x]Intact []Lesion Present Mucosa: [x]Encinal [x]Moist []Dry Neck: External Appearance Overall Appearance: [x]Normal []Lesion/Mass/Crepit us Present Trachea midline: [x]Yes []No Thyroid [x]Normal []Enlarged []Tender []Mass []Absent Respiratory: Respiratory effort []Labored [x]Non-Labored [] Mechanically-Ventila jorge Auscultation [x]Clear []Crackles []Wheezes []Rhonchi Cardiovascular: Auscultation Rate: [x]Regular []Irregular []Tachycardia []Bradycardia Rhythm: [x]Regular []Irregular Murmur: []Present []Absent Extremities Peripheral Edema: []Present [x]Absent Varicosities: []Present (more content not included)... Normal [facility] Consultation - Cardiology 10-08-2024 Consultation - Cardiology [facility] Medical Records Department [address] [place] [address] Consultation - Cardiology 10/08/24 0431 MR#: [id number] Acct: [id number] Name: LUCAS ASTUDILLO Rep #: [id number] : 1955 68 From: Eve Rowley MD PCP: Dr. Eugenio Peralta MD Status:ADM IN Location: ICU ICU03-1 Assessment Plan Assessment/Plan (1) ST elevation myocardial infarction (STEMI) of inferior wall: PLAN: Status post PCI to RCAx2 JACINTA Continue with Aspirin 81 mg daily. Continue with Brilinta 90 mg twice daily. Continue with atorvastatin 40 mg daily. Obtain an echocardiogram. (2) Flash pulmonary edema: PLAN: IV Furosamide 40 mg daily (3) Acute hypoxic respiratory failure: PLAN: Due to pulmonary edema IV lasix (4) Cardiac arrest: PLAN: Vfib cardiac arrest in the setting of RCA stemi status post defbrillatedx2 and 1 round of CPR status post JACINTA to RCA HPI Consult Data Date of Consult: 10/08/24 HPI Narrative HPI Narrative: LUCAS ASTUDILLO, is a 68 F with PMH of Bilateral varicose veins who presented to the emergency department with a chief complaint of chest pain. She states that for the last few days she has had chest pain and notes that originally she had a procedure on her tooth therefore she stopped taking her acid reflux medication and she thought this was her acid reflux. States that around 3 AM she woke up with severe pain which prompted her to come here for further evaluation management. Her EKG showed inferior ST elevations. PFSH Home Medications ???Medication ???Instructions ???Recorded ???Last Taken ???Type pantoprazole 40 mg tablet,delayed 40 mg PO DAILY 02/26/19 Unknown H istory release calcium carbonate 500 mg PO QDAY PRN dyspepsia 01/26 Unknown History cholecalciferol (vitamin D3) 10 10 mcg PO QDAY PRN supplement 12/30 Unknown History mcg (400 unit) capsule lisinopril 10 mg tablet 10 mg PO QDAY 04/28/24 Unknown His tory Allergy/AdvReac Type Severity Reaction Status Date / Time No Known Allergies Allergy Verified 10/08/24 03:57 Family History Other CAD (coronary artery disease) COPD (chronic obstructive pulmonary disease) Cancer Diabetes Heart disease Hypertension Myocardial infarction Surgical History H/O section Hx of tubal ligation Social History Smoking Status: Never smoker ROS Review of Systems ROS Unobtainable: due to endotracheal tube Physical Exam HEENT normocephalic Eyes PERRL Resp Auscultation: breath sounds absent bilateral Cardio regular rate Jugular Venous Distention: JVD Back/Spine no CVA tenderness Extremity normal to inspection Skin no rashes or lesions noted Risk Stratification Risk Stratification Applicable: Yes Age >/= 65: Yes >/= 3 CAD Risk Factors (HTN, HLD, DM, family hx of CAD, or current smoker): Yes Aspirin Use in the Past 7 Days: Yes Severe Angina (>/= episodes in 24 hours): Yes EKG ST Changes >/= 0.5mm: Yes Positive Cardiac Marker: Yes BASIM Risk Stratification Score: 6 BASIM % Risk: 41% Risk Objective Data Vital Signs: Vital Signs Temp Pulse Resp BP Pulse Ox O2 Del Method 98.9 F 57 L 18 167/96 H 100 Nasal Cannula 10/08/24 04:18 10/08/24 04:18 10/08/24 04:18 10/08/24 04:18 10/08/24 04:18 10/08/24 04:06 Oxygen Delivery Method Nasal Cannula Weight: 196 lb 10.437 oz Body Mass Index (BMI) 31.7 Lab / Micro Data 10/08/24 03:58 10/08/24 03:58 Labs: Laboratory Results - last 24 hr 10/08/24 03:58: WBC 6.9, RBC 4.41, Hgb 12.9, Hct 40.0, MCV 90.7, MCH 29.3, MCHC 32.3, RDW Std Deviation 45.1 H, RDW Coeff of Linda 13.7, Plt Count 165, MPV 11.3, Immature Gran % (Auto) 0.300, Neut % (Auto) 57.2, Lymph % (Auto) 34.9, Collier % (Auto) 5.9, Eos % (Auto) 1.3, Baso % (Auto) 0.4, Absolute Neuts (auto) 4.0, Absolute Lymphs (auto) 2.41, Nucleated RBC % 0, PT 13.2, INR 1.0, APTT 27.4 Cardiology Labs/Tests 10/08/24 03:58: WBC 6.9, RBC 4.41, Hgb 12.9, Hct 40.0, MCV 90.7, MCH 29.3, MCHC 32.3, Plt Count 165, MPV 11.3, Immature Gran % (Auto) 0.300, Neut % (Auto) 57.2, Lymph % (Auto) 34.9, Collier % (Auto) 5.9, Eos % (Auto) 1.3, Baso % (Auto) 0.4, Absolute Neuts (auto) 4.0, Nucleated RBC % 0, PT 13.2, INR 1.0, APTT 27.4 Rhythm: EKG: ECHO: Stress Test: Cardiac Cath: PCI: CT Surgery: Holter monitor: EPS: PPM: CXR: Chest CT Scan: 10/08/24 0631 Cosigner Signature (if applicable): CC: Dr. Eugenio Peralta MD Signed Normal [facility] ECG 12-LEADon 10-08-2024 ECG 12-LEAD IMPRESSION: Sinus rhythm Inferior infarct, recent Abnrm T, consider ischemia, anterolateral lds No previous ECG available for comparison Electronically Signed On 10-08-2024 21:38:26 EDT by Sally Cedeno [facility] Echo Complete W/ Contraston 10-08-2024 Echo Complete W/ Contrast [facility] Cardiovascular Services [address] [place] [address] [place] [address] Echo Complete W/ Contrast 10/08/24 0828 MR#: [id number] Acct: [id number] Name: LUCAS ASTUDILLO Rep #: [id number] : 1955 68 From: Eve Rowley MD Attending Dr: Dr. Mehnaz Gonzalez DO Status: A DM IN Ordering Dr: Dylan Soni DO Date: 10/08/24 Location: ICU Sex: F C Admitted: 10/08/24 Reason For Study Reason For Study: STEMI Procedure This was a 2D Doppler, Color Flow transthoracic echocardiogram. The study was technically difficult. The patient was scanned supine. Contrast injection was performed. Patient was on a ventillator during exam. Exam performed portable in ICU/CCU. Left Ventricle The LV ejection fraction is 20 %. Severe segmental systolic dysfunction (see wall motion). Stage 3 diastolic dysfunction. There are regional wall motion abnormalities as specified. Mid-Inferior: Hypokinetic. Septal [place] : Hypokinetic. Mid-inferoseptal : Hypokinetic. Posterior-Basal: Hypokinetic. Right Ventricle Mild global right ventricular systolic dysfunction. Atria Normal left atrium. Mitral Valve The mitral valve is structurally normal. No prolapse or stenosis seen. No mitral valve insufficiency. Tricuspid Valve The tricuspid valve is not well visualized. Unable to estimate RV systolic pressure due to insufficient tricuspid regurgitant envelope. Aortic Valve The aortic valve is not well visualized in the short axis view. Pulmonic Valve The pulmonic valve is not well visualized. No pulmonic valve insufficiency. Great Vessels Normal sized aortic root. No collapse of the inferior vena cava. Pericardium/Pleural Epicardial fat. Medication Diluted definity 2.5ml given slow IV push to enhance endocardial definition. MMode/2D Measurements Calculations LVIDd: 4.5 cm IVSd: 1.4 cm LVOT diam: 1.9 cm LVIDs: 3.8 cm LVPWd: 1.2 cm RVDd: 3.0 cm FS: 15.3 % LVOT area: 3.0 cm2 asc Aorta Diam: 3.5 cm LAV(MOD-bp): 20.7 ml LVAd ap4: 39.6 cm2 LAV(MOD-bp) Indexed: 10.4 ml/m2 LVLd ap4: 8.6 cm LAV(MOD-sp2): 26.3 ml EDV(MOD-sp4): 147.9 ml LAV(MOD-sp4): 13.2 ml EDV(sp4-el): 153.9 ml LVAs ap4: 33.3 cm2 LVLs ap4: 8.1 cm ESV(MOD-sp4): 109.3 ml ESV(sp4-el): 115.5 ml EF(MOD-sp4): 26.1 % EF(sp4-el): 24.9 % LVAd ap2: 32.4 cm2 SV(MOD-sp4): 38.6 ml SV(MOD-sp2): 36.5 ml LVLd ap2: 8.0 cm SI(MOD-sp4): 19.5 ml/m2 SI(MOD-sp2): 18.4 ml/m2 EDV(MOD-sp2): 108.7 ml EDV(sp2-el): 112.1 ml LVAs ap2: 25.4 cm2 LVLs ap2: 7.4 cm ESV(MOD-sp2): 72.2 ml ESV(sp2-el): 73.7 ml EF(MOD-sp2): 33.6 % SV(sp4-el): 38.4 ml Ao sinus diam: 3.[address] Junction: 3.0 cm LA dimension(2D): 3.1 cm LA A4 area: 7.8 cm2 RA A4 area: 10.5 cm2 TAPSE: 1.1 cm Doppler Measurements Calculations MV A max hector: 77.4 cm/sec Lat Peak E' Hector: 9.4 cm/sec Med Peak E' Hector: 6.4 cm/sec Ao V2 max: 93.4 cm/sec LV V1 max: 75.1 cm/sec SV(LVOT): 33.5 ml Ao max P.5 mmHg LV V1 max P.3 mmHg Ao V2 mean: 66.9 cm/sec LV V1 mean P.3 mmHg Ao mean P.0 mmHg LV V1 mean: 52.3 cm/sec Ao V2 VTI: 14.9 cm LV V1 VTI: 11.3 cm AV (velocity ratio): 0.76 TOMASA(I,D): 2.3 cm2 TOMASA(V,D): 2.4 cm2 PA V2 max: 72.5 cm/sec ECHO/Echo Complete W/ Contrast Interpretation Summary The LV ejection fraction is 20 %. Severe segmental systolic dysfunction (see wall motion). Stage 3 diastolic dysfunction. No collapse of the inferior vena cava. Ordering Physician: Dylan Soni Performed By: Mami Harris RDCS 10/08/241208 Date Eve Rowley MD CC: Dr. Dylan Soni, DO; Dr. Mehnaz Gonzalez DO; Dr. Eugenio Peralta MD Date Dictated: 10/08/24827 Date Transcribed: 10/08/241208 Umbrella Mender: Signed Normal [facility] Echocardiogram study reportO rdered By: Eve Rowley on 10-08-2024 Study report [facility] Cardiovascular Services [address] [place] [address] Echo Complete W/ Contrast 10/08/24827 MR#: [id number] Acct: [id number] Name: LUCAS ASTUDILLO Rep #:[id number] : 1955 68 From: Eve Barragan Attending Dr: Dr. Mehnaz Gonzalez, Status: ADM IN Ordering Dr: Dylan Soni te: 10/08/24 Location: ICU Sex: F C Admitted: 10/08/24 Reason For Study Reason For Study: STEMI Procedure This was a 2D Doppler, Color Flow transthoracic echocardiogram. The study was technically difficult. The patient was scanned supine. Contrast injection was performed. Patient was on a ventillator during exam. Exam performed portable in ICU/CCU. Left Ventricle The LV ejection fraction is 20 %. Severe segmental systolic dysfunction (see wall motion). Stage 3 diastolic dysfunction. There are regional wall motion abnormalities as specified. Mid-Inferior: Hypokinetic. Septal [place] : Hypokinetic. Mid-inferoseptal : Hypokinetic. Posterior-Basal: Hypokinetic. Right Ventricle Mild global right ventricular systolic dysfunction. Atria Normal left atrium. Mitral Valve The mitral valve is structurally normal. No prolapse or stenosis seen. No mitralvalve insufficiency. Tricuspid Valve The tricuspid valve is not well visualized. Unable to estimate RV systolic pressure due to insufficient tricuspid regurgitant envelope. Aortic Valve The aortic valve is not well visualized in the short axis view. Pulmonic Valve The pulmonic valve is not well visualized. No pulmonic valve insufficiency. Great Vessels Normal sized aortic root. No collapse of the inferior vena cava. Pericardium/Pleural Epicardial fat. Medication Diluted definity 2.5ml given slow IV push to enhance endocardial definition. MMode/2D Measurements & Calculations LVIDd: 4.5 cm IVSd: 1.4 cm LVOT diam: 1.9 cm LVIDs: 3.8 cm LVPWd: 1.2 cm RVDd: 3.0 cm FS: 15.3 % LVOT area: 3.0 cm2 __ asc Aorta Diam: 3.5 cm LAV(MOD-bp): 20.7 ml LVAd ap4: 39.6 cm2 LAV(MOD-bp) Indexed: 10.4 ml/m2 LVLd ap4: 8.6 cm LAV(MOD-sp2): 26.3 ml EDV(MOD-sp4): 147.9 ml LAV(MOD-sp4): 13.2 ml EDV(sp4-el): 153.9 ml LVAs ap4: 33.3 cm2 LVLs ap4: 8.1 cm ESV(MOD-sp4): 109.3 ml ESV(sp4-el): 115.5 ml EF(MOD-sp4): 26.1 % EF(sp4-el): 24.9 % LVAd ap2: 32.4 cm2 SV(MOD-sp4): 38.6 ml SV(MOD-sp2): 36.5 ml LVLd ap2: 8.0 cm SI(MOD-sp4): 19.5 ml/m2 SI(MOD-sp2): 18.4 ml/m2 EDV(MOD-sp2): 108.7 ml EDV(sp2-el): 112.1 ml LVAs ap2: 25.4 cm2 LVLs ap2: 7.4 cm ESV(MOD-sp2): 72.2 ml ESV(sp2-el): 73.7 ml EF(MOD-sp2): 33.6 % SV(sp4-el): 38.4 ml Ao sinus diam: 3.[address] Junction: 3.0 cm LA dimension(2D): 3.1 cm LA A4 area: 7.8 cm2 RA A4 area: 10.5 cm2 TAPSE: 1.1 cm Doppler Measurements & Calculations MV A max hector: 77.4 cm/sec Lat Peak E' Hector: 9.4 cm/sec Med Peak E' Hector: 6.4 cm/sec Ao V2 max: 93.4 cm/sec LV V1 max: 75.1 cm/sec SV(LVOT): 33.5 ml Ao max P.5 mmHg LV V1 max P.3 mmHg Ao V2 mean: 66.9 cm/sec LV V1 mean P.3 mmHg Ao mean P.0 mmHg LV V1 mean: 52.3 cm/sec Ao V2 VTI: 14.9 cm LV V1 VTI: 11.3 cm AV (velocity ratio): 0.76 TOMASA(I,D): 2.3 cm2 TOMASA(V,D): 2.4 cm2 PA V2 max: 72.5 cm/sec ECHO/Echo Complete W/ Contrast Interpretation Summary The LV ejection fraction is 20 %. Severe segmental systolic dysfunction (see wall motion). Stage 3 diastolic dysfunction. No collapse of the inferior vena cava. Ordering Physician: Dylan Soni Performed By: Mami Harris RDCS 10/08/24 120 Date _ Eev Rowley MD CC: Dr. Dylan Soni DO; Dr. Mehnaz Gonzalez DO; Dr. Eugenio Peralta MD ~ Date Dictated: 10/08/24827 Date Transcribed: 10/08/241208 Umbrella Mender: Signed [facility] Emergency Department Summary on 10-08-2024 Emergency Department Summary [facility] Medical Records Department [address] [place] [address] Emergency Department Summary 10/08/24 MR#: [id number] Acct: [id number] Name: LUCAS ASTUDILLO Rep #: [id number] : 1955 68 From: Brando Crooks DO PCP: Dr. Eugenio Peralta MD Status:ADM IN Location: ICU ICU03-1 HPI History of Present Illness Chief Complaint: Chest Pain Narrative Narrative: Patient is a 68-year-old female who presented to the emergency department with a chief complaint of chest pain. She states that for the last few days she has had chest pain and notes that originally she had a procedure on her tooth therefore she stopped taking her acid reflux medication and she thought this was her acid reflux. States that around 3 AM she woke up with severe pain which prompted her to come here for further evaluation management. PFSH PFSH Home Medications ???Medication ???Instructions ???Recorded ???Last Taken ???Type pantoprazole 40 mg tablet,delayed 40 mg PO DAILY 02/26/19 Unknown H istory release calcium carbonate 500 mg PO QDAY PRN dyspepsia 01/26 Unknown History cholecalciferol (vitamin D3) 10 10 mcg PO QDAY PRN supplement 12/30 Unknown History mcg (400 unit) capsule lisinopril 10 mg tablet 10 mg PO QDAY 04/28/24 Unknown His tory Allergy/AdvReac Type Severity Reaction Status Date / [...] follow commands knew that she was at [facility] the year is 2024 Skin: Warm, dry, [...] looked at the EKG showed inferior wall WA. I called STEMI alert immediately. I ordered [address] Rowley was notified of the inferior wall WA and STEMI. He is also recommending heparin [...] 141, testing normal 3.8, creatinine was 1.20. Patient's troponin was 48 with a second troponin pending. Patient was ultimately taken down to the [facility] for her STEMI. While here in the [...] intubate the patient. See procedure note for (more content not included)... Normal [facility] Eosinophil percentageOrdered By: Brando Crooks on 10-08-2024 Eosinophils/100 WBC (Bld) 1.3 % 0-5 [facility] Erythrocyte distribution wid th ratioOrdered By: Brando Crooks on 10-08-2024 Erythrocyte distribution width (RBC) [Ratio] 13.7 % 11.6-14.6 [facility] Erythrocyte distribution wid th standard deviationOrdered By: Brando Crooks on 10-08-2024 Erythrocyte distribution width (RBC) [Ratio] 45.1 fl High 35.1-43.9 [facility] Glomerular filtration rate ( GFR) estimation/1.73 sq m using serum, plasma, or whole bOrdered By: Brando Crooks on 10-08-2024 GFR/1.73 sq M.predicted among non-blacks MDRD (S/P/Bld) [Vol rate/Area] 49 mL/min/{1.73_m2} Low >60 [facility] Comment on above: mL/min/1.73m2 CKD-EP I Creatinine Equation (2020) Gram Stainon 10-08-2024 GS Acceptable Specimen? Yes (<25 Epithelial cells per/lpf) Gram Stain 2+ Red Blood Cells No organisms seen Normal [facility] Comment on above: Performed By: #### L 300.3900, L300.4310, L501.4021, L500.2500, L100.0100 #### [facility] Laboratory [address] [place], [address] Gram stainOrdered By: David Sandhu on 10-08-2024 Microscopic observation Gram stain Nom (Unsp spec) [facility] H AND P Exam - Hospitaliston 10-08-2024 H&P Exam - Hospitalist [facility] Medical Records Department [address] [place] [address] H P Exam - Hospitalist 10/08/24 0539 MR#: [id number] Acct: [id number] Name: LUCAS ASTUDILLO Rep #: [id number] : 1955 68 From: Dylan Soni DO PCP: Dr. Eugenio Peralta MD Status:ADM IN Location: ICU ICU03-1 HPI - General General Date of Admission: 10/08/24 Date of Service: 10/08/24 Chief Complaint: Chest pain HPI Narrative LUCAS ASTUDILLO, is a 68 F who presented to [facility] ED on 10/08/2024 with chest pain. STEMI alert called on arrival. EKG showed in the inferior leads. Patient reported ongoing chest pain for the past 2 days that she attributed to acid reflux. She woke up this morning around 3 AM with severe chest pain and her brought her to the ED for further evaluation. Patient was taken urgently to the [facility]. Shortly after arrival to the [facility] [employer] [facility] patient went into pulseless V. tach. She was shocked with 300 J with conversion back to sinus tachycardia. Shortly after was found on pulse ox to have oxygen saturations in the 50s. Decision was made to intubate the patient. Patient had significant secretions that made the intubation difficult. She was successfully intubated by Dr. Crooks with positive breath sounds noted bilaterally and color change noted. Oxygen saturations improved into the low 80s with bagging. She was then placed on the ventilator and saturations improved to the mid to high 80s. 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 LAD and left circumflex with no significant CAD noted. Patient was then taken to the ICU for further management. [facility] Home Medications ???Medication ???Instructions ???Recorded ???Last Taken ???Type pantoprazole 40 mg tablet,delayed 40 mg PO DAILY 02/26/19 Unknown H istory release calcium carbonate 500 mg PO QDAY PRN dyspepsia 01/26 Unknown History cholecalciferol (vitamin D3) 10 10 mcg PO QDAY PRN supplement 12/30 Unknown History mcg (400 unit) capsule lisinopril 10 mg tablet 10 mg PO QDAY 04/28/24 Unknown His tory Allergy/AdvReac Type Severity Reaction Status Date / Time No Known Allergies Allergy Verified 10/08/24 03:57 Family History Other CAD (coronary artery disease) COPD (chronic obstructive pulmonary disease) Cancer Diabetes Heart disease Hypertension Myocardial infarction Surgical History H/O section Hx of tubal ligation Social History Smoking Status: Never smoker ROS Review of Systems ROS Unobtainable: due to endotracheal tube Vital Signs Vital Signs Vital Signs: 10/08/24 03:57 10/08/24 04:06 10/08/24 04:18 Temperature 98.1 F 98.9 F Temperature Source Oral Pulse Rate 73 57 L Respiratory Rate 18 18 Blood Pressure 164/106 H 167/96 H Blood Pressure Mean 125 119 Pulse Ox 98 98 100 Oxygen Delivery Method Room Air Nasal Cannula Weight Weight: 89.2 kg Body Mass Index (BMI) 31.7 Physical Exam Const Constitutional Narrative: Intubated and sedated. Not following commands. Class I obesity. HEENT normocephalic and head/scalp atraumatic HEENT Narrative: ET tube in place. Neck supple Resp Resp Narrative: Significant crackles noted bilaterally throughout. No wheezing noted. Cardio no murmurs Cardio Narrative: Tachycardic, regular rhythm. GI normal to inspection, nondistended, normoactive bowel sounds, soft to palpation, non-tender and non- distended Extremity normal to inspection Results Lab / Micro Data 10/08/24 03:58 10/08/24 03:58 Labs: Laboratory Results - last 24 hr 10/08/24 03:58: WBC 6.9, RBC 4.41, Hgb 12.9, Hct 40.0, MCV 90.7, MCH 29.3, MCHC 32.3, RDW Std Deviation 45.1 H, RDW Coeff of Linda 13.7, Plt Count 165, MPV 11.3, Immature Gran % (Auto) 0.300, Neut % (Auto) 57.2, Lymph % (Auto) 34.9, Collier % (Auto) 5.9, Eos % (Auto) 1.3, Baso % (Auto) 0.4, Absolute Neuts (auto) 4.0, Absolute Lymphs (auto) 2.41, Nucleated RBC % 0, PT 13.2, INR 1.0, APTT 27.4, Sodium 141, Potassium 3.8, Chloride 105, Carbon Dioxide 22.9, Anion Gap 13, BUN 13, Creatinine 1.20, Estim Creat Clear Calc 50.48, Est GFR (MDRD) Non-Af 49 L, BUN/Creatinine Ratio 10.9, Glucose 154 H, Calcium 9.2, Troponin T High Sens 48 H Assessment Plan Assessment/Plan (1) ST elevation myocardial infarction (STEMI) of inferior wall: (2) Cardiac arrest: (3) Acute hypoxic respiratory failure: PLAN: Plan Patient is a 68-year-old female who presented to [facility] ED on 10/08/2024 with chest pain. 1. STEMI with acute hypoxic respiratory failure secondar (more content not included)... Normal [facility] HEMOGLOBIN A1Con 10-08-2024 Glucose [Mass/Vol] 108 mg/dL Normal [facility] Comment on above: Result Comment: SIMONE De La Rosa COMMENTS: HbA1c values of 5.7-6.4 percent indicate an increased risk for developing diabetes mellitus. HbA1c values greater than or equal to 6.5 percent are diagnostic of diabetes mellitus. For diagnosis of diabetes in individuals without unequivocal hyperglycemia, results should be confirmed by repeat testing. Performed By: #### L AB113, [id number], LAB17 #### Order Puller: SHARON CRAWLEY ([id number]) [facility] [address] [place] [address] HEMOGLOBIN A1C 5.4 %HbA1C Normal <5.7 [facility] Comment on above: Result Comment: Norm al less than 5.7% Prediabetes 5.7% to 6.4% Diabetes 6.5% or higher --HgbA1C levels may not be accurate in patients who have renal disease, received recent blood transfusions, are anemic, or who have dyshemoglobinemia. Performed By: #### L AB113, [id number], LAB17 #### Order Puller: SHARON CRAWLEY ([id number]) [facility] ([facility]) [address] [place] [address] HIGH SENSITIVITY TROPONIN, S ERIAL, SECOND TESTon 10-08-2024 2H TROPONIN HS (SERIAL 2ND TROPONIN) >66930 Critically high <=14 [facility] Comment on above: Performed By: #### L AB113, [id number], LAB17 #### Order Puller: SHARON CRAWLEY ([id number]) [facility] ([facility]) [address] [place] [address] Hematocrit Auto (Bld) [Volum e fraction]Ordered By: Brando Crooks on 10-08-2024 Hematocrit (Bld) [Volume fraction] 40.0 % 37-47 [facility] Hemoglobin A1con 10-08-2024 HbA1c (Bld) [Mass fraction] 5.6 % Normal <=5.6 [facility] Comment on above: Result Comment: Norm al < 5.7 % Prediabetic 5.7 - 6.4 % Diabetic >or= 6.5 % Please note range changes. Performed By: #### L 300.3900, L300.4310, L501.4021, L500.2500, L100.0100 #### [facility] Laboratory [address] [place], [place], [id number] Hemoglobin A1c percentageOrd ered By: Dylan Soni on 10-08-2024 HbA1c (Bld) [Mass fraction] 5.6 % <5.7 [facility] Comment on above: Normal < 5.7 % Predi abetic 5.7 - 6.4 % Diabetic >or= 6.5 % Please note range changes. Hemoglobin measurementOrdere d By: Brando Crooks on 10-08-2024 Hemoglobin (Bld) [Mass/Vol] 12.9 g/dL 12.0-15.0 [facility] Immature granulocytes/100 WB C Auto (Bld)Ordered By: Brando Crooks on 10-08-2024 Immature granulocytes/100 WBC (Bld) 0.300 % 0.0-0.9 [facility] Comment on above: IG% - Immature Granu locytes (promyelocytes, myelocytes and metamyelocytes) > 1% indicates that a LEFT SHIFT is Present. International normalized rat io (INR) calculationOrdered By: Brando Crooks on 10-08-2024 INR Coag (Bld) [Relative time] 1.0 {INR} [facility] L499.0042on 10-08-2024 Trop T High Sen Normal <=14 [facility] Comment on above: Result Comment: Ingris todd via OM: MD Ordered Performed By: #### L 300.3900, L300.4310, L501.4021, L500.2500, L100.0100 #### [facility] Laboratory [address] [place], [address] L499.0043on 10-08-2024 Trop T High Sen Normal <=14 [facility] Comment on above: Result Comment: Canc elled via OM: MD Ordered Performed By: #### L 300.3900, L300.4310, L501.4021, L500.2500, L100.0100 #### [facility] Laboratory [address] [place], [address] L501.4021on 10-08-2024 Trop T High Sen 48 ng/L High <=14 [facility] Comment on above: Performed By: #### L 300.3900, L300.4310, L501.4021, L500.2500, L100.0100 #### [facility] Laboratory [address] [place], [address] LACTIC ACID WITH REFLEXon Lactate [Moles/Vol] 1.7 mmol/L Normal 0.5-2.2 [facility] Comment on above: Performed By: #### L AB113, LAB17, [id number] #### Order Puller: SHARON CRAWLEY ([id number]) [facility] ([facility]) [address] [place] [address] LEGIONELLA AND STREPTOCOCCUS URINE ANTIGENon 10-08-2024 LEGIONELLA AND STREPTOCOCCUS URINE ANTIGEN LEGIONELLA PNEUMOPHILA URINE ANTIGEN Reference Not Detected Not Detected STREPTOCOCCUS PNEUMONIAE URINE ANTIGEN Reference Not Detected Not Detected ORDER COMMENTS: Methodology: Lateral flow enzyme immunoassay This assay is approved for detection of antigens to Streptococcus pneumoniae and Legionella pneumophila serogroup 1; however, other L. pneumophila serogroups may also be detected. Normal [facility] Comment on above: Performed By: #### L AB113, [id number], LAB17 #### Order Puller: SHARON CRAWLEY ([id number]) [facility] [address] [place] [address] LIPID PANELon 10-08-2024 Cholesterol [Mass/Vol] 127 mg/dL Normal <200 [facility] Comment on above: Performed By: #### L AB113, [id number], LAB17 #### Order Puller: SHARON CRAWLEY ([id number]) [facility] [address] [place] [address] Cholesterol in HDL [Mass/Vol] 32 mg/dL Low >=60 [facility] Comment on above: Performed By: #### L AB113, [id number], LAB17 #### Order Puller: SHARON CRAWLEY ([id number]) [facility] ([facility]) [address] [place] [address] Cholesterol.total/Choles terol in HDL [Mass ratio] 4 {ratio} Normal [facility] Comment on above: Result Comment: Ref Range: < 3 Low Risk for CHD 3-6 Mod Risk for CHD > 6 High Risk for CHD Performed By: #### Susi AB113, [id number], LAB17 #### Order Puller: SHARON CRAWLEY ([id number]) [facility] [address] [place] [address] LOW DENSITY LIPOPROTEIN 50 mg/dL Normal 0-<100 [facility] Comment on above: Performed By: #### L AB113, [id number], LAB17 #### Order Puller: SHARON CRAWLEY ([id number]) [facility] [address] [place] [address] [place] NON-HDL CHOLESTEROL, CALCULATED 95 Normal <130 [facility] Comment on above: Performed By: #### L AB113, [id number], LAB17 #### Order Puller: SHARON CRAWLEY ([id number]) [facility] ([facility]) [address] [place] [address] Triglyceride [Mass/Vol] 226 mg/dL High <150 [facility] Comment on above: Performed By: #### L AB113, [id number], LAB17 #### Order Puller: SHARON CRAWLEY ([id number]) [facility] ([facility]) [address] [place] [address] [place] VERY LOW DENSITY LIPOPROTEIN, CALCULATED 45 mg/dL High <=30 [facility] Comment on above: Performed By: #### L AB113, [id number], LAB17 #### Order Puller: SHARON CRAWLEY ([id number]) [facility] ([facility]) [address] Laboratory - Chemistry and C hemistry - challengeon 10-08-2024 Procalcitonin [Mass/Vol] 0.74 ng/mL High DREW F - 0.07 ng/mL [facility] TSH Qn 0.75 m[IU]/L [facility] CK [Catalytic activity/Vol] 2002 U/L High 30 - 185 U/L [facility] Lactate [Moles/Vol] 1.7 mmol/L 0.5 - 2. 2 mmol/L [facility] Average glucose Estimated from glycated hemoglobin (Bld) [Mass/Vol] 108 mg/dL [facility] Laboratory - Chemistry and C hemistry - challengeOrdered By: Clover Bolivar on 10-08-2024 Base excess Calc (Bld) [Moles/Vol] -0.7000 mmol/L -3.0 - 3.0 mmol/L [facility] CO2 (Bld) [Partial pressure] 34.6 mm[Hg] Low - PINF [facility] CO2 [Moles/Vol] 23.9 mmol/L 23.0 - 27.0 mmol/L [facility] HCO3 (Bld) [Moles/Vol] 22.9 mmol/L 21.0 - 25.0 mmol/L [facility] Oxygen (Bld) [Partial pressure] 105.4 mm[Hg] High [facility] pH (Bld) 7.438 [pH] 7.350 - 7.450 [facility] Laboratory - Hematology and Cell countsOrdered By: Clover Bolivar on 10-08-2024 Hemoglobin (Bld) [Mass/Vol] 14.8 g/dL 7.0 g/dl [facility] Laboratory - Hematology and Cell countson 10-08-2024 HbA1c (Bld) [Mass fraction] 5.4 % [facility] Comment on above: Normal less than 5.7 % Prediabetes 5.7% to 6.4% Diabetes 6.5% or higher --HgbA1C levels may not be accurate in patients who have renal disease, received recent blood transfusions, are anemic, or who have dyshemoglobinemia. Lipid 1996 panelon 5 Cholesterol [Mass/Vol] 127 mg/dL NINF - 200 mg/dL [facility] Cholesterol in HDL [Mass/Vol] 32 mg/dL Low 60 - PINF mg/dL [facility] Cholesterol in LDL [Mass/Vol] 50 mg/dL 0 - <100 [facility] Cholesterol.total/Choles terol in HDL [Mass ratio] 4 {ratio} [facility] Comment on above: Ref Range: < 3 Low Risk for CHD 3-6 Mod Risk for CHD > 6 High Risk for CHD NON-HDL CHOLESTEROL, CALCULATED 95 NINF - 130 [facility] Triglyceride [Mass/Vol] 226 mg/dL High NINF - 150 mg/dL [facility] VERY LOW DENSITY LIPOPROTEIN, CALCULATED 45 mg/dL High [facility] - 30 mg/dL [facility] MCV (mean corpuscular volume ) determinationOrdered By: Brando Crooks on 10-08-2024 MCV (RBC) [Entitic vol] 90.7 fL 81-99 [facility] MRSA BY PCRon 10-08-2024 MRSA BY PCR STAPHYLOCOCCUS AUREUS (A) Reference Detected Not Detected MECA GENE Reference Not Detected Not Detected ORDER COMMENTS: Methicillin-sensitiv e Staphylococcus aureus (MSSA) present; No MRSA detected Negative nasal MRSA PCR has a high negative predictive value for MRSA pneumonia. Consider stopping Vancomycin if no other clinical indication. Positive results do not necessarily indicate active infection with MSSA. Contact Antimicrobial Stewardship for further recommendations. Staphylococcus aureus nasal screen by real-time PCR. This test was modified and its performance characteristics determined by [facility]. The [place]. [place]. Food and Drug Administration has not approved or cleared this test; however, FDA clearance or approval is not currently required for clinical use. The results are not intended to be used as the sole means for clinical diagnosis or patient management decisions. Normal [facility] Comment on above: Performed By: #### L AB113, [id number], LAB17 #### Order Puller: SHARON CRAWLEY ([id number]) [facility] ([facility]) [address] [place] [address] MRSA DNA GUSTAVO+probe Ql (Nose) on 10-08-2024 Interpretation and review of laboratory results Abnormal [facility] mecA gene Not detected Not Detected [facility] Staphylococcus aureus Detected Abnormal Not Detected S [facility] Methicillin-sensitiv e Staphylococcus aureus (MSSA) present; No MRSA detected Negative nasal MRSA PCR has a high negative predictive value for MRSA pneumonia. Consider stopping Vancomycin if no other clinical indication. Positive results do not necessarily indicate active infection with MSSA. Contact Antimicrobial Stewardship for further recommendations. Staphylococcus aureus nasal screen by real-time PCR. This test was modified and its performance characteristics determined by [facility]. The U. S. Food and Drug Administration has not approved or cleared this test; however, FDA clearance or approval is not currently required for clinical use. The results are not intended to be used as the sole means for clinical diagnosis or patient management decisions. [facility] Mean corpuscular hemoglobin (MCH) determinationOrdered By: Brando Crooks on 10-08-2024 MCH (RBC) [Entitic mass] 29.3 pg 27.0-32.0 [facility] Mean corpuscular hemoglobin concentration (MCHC) determinationOrdered By: Brando Crooks on 10-08-2024 MCHC (RBC) [Mass/Vol] 32.3 g/dL 32-36 [facility] Mean platelet volume determi nationOrdered By: Brando Crooks on 10-08-2024 Platelet mean volume (Bld) [Entitic vol] 11.3 fL 6.2-12.0 [facility] Measurement, pHOrdered By: Maya Soni on 10-08-2024 pH (Unsp spec) 7.35 [pH] 7.35-7.45 [facility] Microbial respiratory cultur eOrdered By: Dylan Soni on 10-08-2024 Microorganism identified Cx Nom (Unsp spec) or Staphylococcus aureus isolated. [facility] Monocyte percentageOrdered B y: Brando Crooks on 10-08-2024 Monocytes/100 WBC (Bld) 5.9 % 0-10 [facility] NT PRO BNPon 10-08-2024 Natriuretic peptide B (Bld) [Mass/Vol] 7524 pg/mL High <125 [facility] Comment on above: Performed By: #### L AB113, [id number], LAB17 #### Order Puller: SHARON CRAWLEY ([id number]) [facility] ([facility]) [address] [place] [address] Natriuretic peptide B [Mass/ Vol]on 10-08-2024 Interpretation and review of laboratory results Abnormal [facility] Natriuretic peptide B (Bld) [Mass/Vol] 7524 pg/mL High NINF - 125 pg/mL [facility] Neutrophil percentageOrdered By: Brando Crooks on 10-08-2024 Neutrophils/100 WBC (Bld) 57.2 % 47-70 [facility] No Panel InformationOrdered By: Sally Cedeno on 10-08-2024 P Ruby 54 degrees [facility] Work Phone: AL Interval 153 ms [facility] Work Phone: QRS Ruby -41 degrees [facility] Work Phone: QRSD Interval 90 ms [facility] [email or web address] Work Phone: QT Interval 414 ms [facility] Work Phone: QTC Interval 485 ms [facility] Work Phone: T Wave Ruby -69 degrees [employer] Work Phone: [employer] Work Phone: No Panel Informationon 10-08 Sinus rhythm Inferior infarct, recent Abnrm T, consider ischemia, anterolateral lds No previous ECG available for comparison Electronically Signed On 10-08-2024 21:38:26 EDT by Sally De Los Santos MD - 10/08/2024 IMPRESSION: Sinus rhythm Inferior infarct, recent Abnrm T, consider ischemia, anterolateral lds No previous ECG available for comparison Electronically Signed On 10-08-2024 21:38:26 EDT by Sally Cedeno [facility] Extra Tube Hold for add-ons. [facility] [facility] Comment on above: Auto resulted. [facility] Interpretation and review of laboratory results Abnormal [facility] Interpretation and review of laboratory results Normal [facility] HbA1c values of 5.7-6.4 percent indicate an increased risk for developing diabetes mellitus. HbA1c values greater than or equal to 6.5 percent are diagnostic of diabetes mellitus. For diagnosis of diabetes in individuals without unequivocal hyperglycemia, results should be confirmed by repeat testing. [facility] No Panel InformationOrdered By: Gaby Archibald on 10-08-2024 2h Troponin HS (Serial 2nd Troponin) ng/L Critically high NINF - 14 ng/L [facility] Interpretation and review of laboratory results Abnormal [facility] No Panel InformationOrdered By: Roxana Carvalho on 10-08-2024 Interpretation and review of laboratory results Normal [facility] Legionella pneumophila Ag Not detected Not Detected [facility] Streptococcus pneumoniae Ag Not detected Not Detected [facility] Methodology: Lateral flow enzyme immunoassay This assay is approved for detection of antigens to Streptococcus pneumoniae and Legionella pneumophila serogroup 1; however, other L. pneumophila serogroups may also be detected. [facility] No Panel InformationOrdered By: Clover Bolivar on 10-08-2024 Amount Of Oxygen 50 [facility] Interpretation and review of laboratory results Abnormal [facility] Source Of Oxygen Ventilator [facility] No Panel InformationOrdered By: Mehnaz Gonzalez on 10-08-2024 Blood Gas Sample Site Not entered [facility] Blood Gas Specimen Type ROSA ISELA [facility] Oxygen Delivery Device Not entered [facility] No Panel InformationOrdered By: Dylan Soni on 10-08-2024 Blood Gas Vent Mode Not entered [facility] Blood Gas Sample Site Not entered [facility] Blood Gas Specimen Type ROSA ISELA [facility] Oxygen Delivery Device Not entered [facility] Nucleated red blood cell per centageOrdered By: Brando Crooks on 10-08-2024 Nucleated RBC/100 WBC (Bld) [Ratio] 0 % 0-5 [facility] PNEUMONIA PCR PANELon 2024 PNEUMONIA PCR PANEL STAPHYLOCOCCUS AUREUS Reference Not Detected Not Detected STREPTOCOCCUS AGALACTIAE Reference Not Detected Not Detected STREPTOCOCCUS PNEUMONIAE Reference Not Detected Not Detected STREPTOCOCCUS PYOGENES Reference Not Detected Not Detected HAEMOPHILUS INFLUENZAE Reference Not Detected Not Detected MORAXELLA CATARRHALIS Reference Not Detected Not Detected ACINETOBACTER BAUMANNII COMPLEX Reference Not Detected Not Detected ENTEROBACTER CLOACAE COMPLEX Reference Not Detected Not Detected ESCHERICHIA COLI Reference Not Detected Not Detected KLEBSIELLA (ENTEROBACTER) AEROGENES Reference Not Detected Not Detected KLEBSIELLA OXYTOCA Reference Not Detected Not Detected KLEBSIELLA PNEUMONIAE Reference Not Detected Not Detected PROTEUS SPP Reference Not Detected Not Detected PSEUDOMONAS AERUGINOSA Reference Not Detected Not Detected SERRATIA MARCESCENS Reference Not Detected Not Detected CHLAMYDIA PNEUMONIAE Reference Not Detected Not Detected LEGIONELLA PNEUMOPHILA Reference Not Detected Not Detected MYCOPLASMA PNEUMONIAE Reference Not Detected Not Detected ADENOVIRUS Reference Not Detected Not Detected CORONAVIRUS Reference Not Detected Not Detected HUMAN METAPNEUMOVIRUS Reference Not Detected Not Detected HUMAN RHINOVIRUS/ENTEROVIR US Reference Not Detected Not Detected INFLUENZA A Reference Not Detected Not Detected INFLUENZA B Reference Not Detected Not Detected PARAINFLUENZA VIRUS Reference Not Detected Not Detected RESPIRATORY SYNCYTIAL VIRUS Reference Not Detected Not Detected ORDER COMMENTS: Methodology: Multiplex PCR This panel does not test for SARS-CoV-2 (Covid-19). The following antimicrobial resistance gene is reported if the appropriate organism is detected: mecA. The following antimicrobial resistance genes are reported if detected and the appropriate organisms are detected: CTX-M, IMP, KPC, NDM, OXA-48-like, and VIM. Normal [facility] Comment on above: Performed By: #### L AB113, [id number], LAB17 #### Order Puller: SHARON CRAWLEY ([id number]) [facility] ([facility]) [address] [place] [address] PROCALCITONIN TESTon 025 PROCALCITONIN 0.74 ng/mL High <0.07 [facility] Comment on above: Result Comment: SIMONE De La Rosa COMMENTS: PCT <0.50 = Low risk of severe sepsis and/or septic shock. PCT >2.00 = High risk of severe sepsis and/or septic shock. Performed By: #### L AB113, [id number], LAB17 #### Order Puller: SHARON CRAWLEY ([id number]) [facility] [address] [place] [address] Partial Thromboplast Timeon 10-08-2024 aPTT Coag (Bld) [Time] 27.4 s Normal 24.1-36.2 [facility] Comment on above: Performed By: #### L 300.3900, L300.4310, L501.4021, L500.2500, L100.0100 #### [facility] [address] [place], [address] Platelet countOrdered By: Quang Crooks on 10-08-2024 Platelets (Bld) [#/Vol] 165 10*3/uL 150-450 [facility] Potassium measurement (mass/ volume)Ordered By: Brando Crooks on 10-08-2024 Potassium (Unsp spec) [Mass/Vol] 3.8 mmol/L 3.3-5.1 [facility] Procalcitonin [Mass/Vol]on 0 10-08-2024 Interpretation and review of laboratory results Abnormal [facility] PCT <0.50 = Low risk of severe sepsis and/or septic shock. PCT >2.00 = High risk of severe sepsis and/or septic shock. [facility] Prothrombin Time w/INRon INR Coag (PPP) [Relative time] 1.0 {INR} Normal [facility] Comment on above: Performed By: #### L 300.3900, L300.4310, L501.4021, L500.2500, L100.0100 #### [facility] [address] [place], [address] PT Coag (PPP) [Time] 13.2 s Normal 11.7-14.9 [facility] Comment on above: Performed By: #### L 300.3900, L300.4310, L501.4021, L500.2500, L100.0100 #### [facility] [address], [address] Prothrombin timeOrdered By: Brando Crooks on 10-08-2024 PT Coag (PPP) [Time] 13.2 s 11.7-14.9 [facility] RBC Auto (Bld) [#/Vol]Ordere d By: Brando Crooks on 10-08-2024 RBC (Bld) [#/Vol] 4.41 10*6/uL 4.2-5.4 [facility] RESPIRATORY CULTURE AND STAI Non 10-08-2024 RESPIRATORY CULTURE AND STAIN RESPIRATORY CULTURE Reference Rare respiratory jung present. STAPHYLOCOCCUS AUREUS Rare Staphylococcus aureus (A) GRAM STAIN RESULT (A) Reference (A) Few Epithelial cells per low power field Moderate Polymorphonuclear leukocytes per low power field Few Gram positive cocci Organism: STAPHYLOCOCCUS AUREUS Antibiotic FATOU Interpretation Status Clindamycin 0.25 ug/ml S F Gentamicin <=0.5 ug/ml S F Oxacillin <=0.25 ug/ml S F Trimethoprim / Sulfamethoxazole <=10 ug/ml S F Vancomycin 1 ug/ml S F [ S = SUSCEPTIBLE R = RESISTANT I = INTERMEDIATE S-DD = Susceptible-dose dependent NS = Non-susceptible NO = No Interpretation ] Normal [facility] Comment on above: Performed By: #### L AB113, LAB17, [id number] #### Order Puller: SHARON CRAWLEY ([id number]) [address] RESPIRATORY PATHOGENS PANEL BY PCRon 10-08-2024 RESPIRATORY PATHOGENS PANEL BY PCR SARS-COV-2 Reference Not Detected Not Detected ADENOVIRUS Reference Not Detected Not Detected CORONAVIRUS HKU1 Reference Not Detected Not Detected CORONAVIRUS NL63 Reference Not Detected Not Detected CORONAVIRUS 229E Reference Not Detected Not Detected CORONAVIRUS OC43 Reference Not Detected Not Detected HUMAN METAPNEUMOVIRUS Reference Not Detected Not Detected HUMAN RHINOVIRUS/ENTEROVIR US Reference Not Detected Not Detected INFLUENZA A Reference Not Detected Not Detected INFLUENZA B Reference Not Detected Not Detected PARAINFLUENZA 1 Reference Not Detected Not Detected PARAINFLUENZA 2 Reference Not Detected Not Detected PARAINFLUENZA 3 Reference Not Detected Not Detected PARAINFLUENZA 4 Reference Not Detected Not Detected RESPIRATORY SYNCYTIAL VIRUS Reference Not Detected Not Detected BORDETELLA PERTUSSIS Reference Not Detected Not Detected BORDETELLA PARAPERTUSSIS Reference Not Detected Not Detected CHLAMYDIA PNEUMONIAE Reference Not Detected Not Detected MYCOPLASMA PNEUMONIAE Reference Not Detected Not Detected ORDER COMMENTS: Methodology: Multiplex PCR Normal [facility] Comment on above: Performed By: #### L AB113, [id number], LAB17 #### Order Puller: SHARON CRAWLEY ([id number]) [facility] [address] [place] [address] Respiratory pathogens DNA an d RNA panel GUSTAVO+non-probe (Nph)on 10-08-2024 Adenovirus Not detected Not Detected [facility] B. pertussis DNA GUSTAVO+probe Ql (Unsp spec) Not detected Not Detected [facility] Bordetella parapertussis Not detected Not Detec jorge [facility] Chlamydia pneumoniae Not detected Not Detected [facility] Coronavirus 229E Not detected Not Detected [facility] Coronavirus HKU1 Not detected Not Detected [facility] Coronavirus NL63 Not detected Not Detected [facility] Coronavirus OC43 Not detected Not Detected [facility] FLUAV RNA GUSTAVO+non-probe Ql (Nph) Not detected Not Detected [facility] FLUBV RNA GUSTAVO+non-probe Ql (Nph) Not detected Not Detected [facility] Human Metapneumovirus Not detected Not Detected [facility] Rhinovirus/Enterovirus Not detected Not Detected [facility] Interpretation and review of laboratory results Normal [facility] Mycoplasma pneumoniae Not detected Not Detected [facility] Parainfluenza 1 Not detected Not Detected [facility] Parainfluenza 2 Not detected Not Detected [facility] Parainfluenza 3 Not detected Not Detected [facility] Parainfluenza 4 Not detected Not Detected [facility] Respiratory Syncytial Virus Not detected Not Detected [facility] SARS-CoV-2 (COVID-19) RNA GUSTAVO+non-probe Ql (Nph) Not detected Not Detected [facility] Methodology: Multiplex PCR [facility] Serum creatinine measurement (mass/volume)Ordered By: Brando Crooks on 10-08-2024 Creatinine [Mass/Vol] 1.20 mg/dL 0.70-1.20 [facility] Serum glucose measurement (m ass/volume)Ordered By: Brando Crooks on 10-08-2024 Glucose [Mass/Vol] 154 mg/dL High 70-99 [facility] Serum or plasma calcium [place] urement (mass/volume)Ordered By: Brando Crooks on 10-08-2024 Calcium [Mass/Vol] 9.2 mg/dL 7.6-11.0 [facility] Serum or plasma creatine kin ase activityOrdered By: Dylan Soni on 10-08-2024 CK [Catalytic activity/Vol] 81 U/L 24-195 [facility] Serum or plasma urea nitroge n measurement (mass/volume)Ordered By: Brando Crooks on 10-08-2024 Urea nitrogen [Mass/Vol] 13 mg/dL 4-19 [facility] Sodium levelOrdered By: Arely Crooks on 10-08-2024 Sodium [Moles/Vol] 141 mmol/L 133-145 [facility] THYROID STIMULATING HORMONEo n 10-08-2024 THYROID STIMULATING HORMONE 0.75 uIU/mL Normal 0.35-4.94 [facility] Comment on above: Performed By: #### L AB113, [id number], LAB17 #### Order Puller: SHARON CRAWLEY ([id number]) [facility] ([facility]) [address] [place] [address] TSH DL <= 0.005 mIU/L QnOrde red By: Dylan Soni on 10-08-2024 TSH Qn 2.500 uIU/mL 0.300-4.200 [facility] TSH Qnon 10-08-2024 Interpretation and review of laboratory results Normal [facility] Thyroid Stim Hormone (TSH)on 10-08-2024 TSH 2.500 uIU/mL Normal 0.300-4.200 [facility] Comment on above: Performed By: #### L 300.3900, L300.4310, L501.4021, L500.2500, L100.0100 #### [facility] [address] [place], [place], [id number] Total carbon dioxide measure mentOrdered By: Dylan Soni on 10-08-2024 CO2 [Moles/Vol] 22 mmol/L [facility] Triglycerideson 10-08-2024 Triglyceride [Mass/Vol] 234 mg/dL High W [facility] Comment on above: Order Comment: Comme nts: DC when propofol is d/c'dDC when propofol is d/c'd Result Comment: The drugs N-Acetylcysteine and Metamizole may falsely depress this assay. Normal range: <150 mg/dL Borderline High: 150-199 mg/dL High: 200-499 mg/dL Very High: >500 mg/dL Performed By: #### L 300.3900, L300.4310, L501.4021, L500.2500, L100.0100 #### [facility] [address] [place], [place], [id number] Triglycerides measurementOrd ered By: Dylan Soni on 10-08-2024 Triglyceride [Mass/Vol] 234 mg/dL High <199 [facility] Comment on above: The drugs N-Acetylcy steine and Metamizole may falsely depress this assay. Normal range: <150 mg/dLBorderline High: 150-199 mg/dLHigh: 200-499 mg/dLVery High: >500 mg/dL Troponin T.cardiac [Mass/vol ume] in Serum or Plasma by High sensitivity methodOrdered By: Brando Crooks on 10-08-2024 Troponin T.cardiac High sensitivity method [Mass/Vol] 48 ng/L High <14 [facility] Venous Blood Gason 5 Blood Gas Type ROSA ISELA [facility] Comment on above: Performed By: #### L 300.3900, L300.4310, L501.4021, L500.2500, L100.0100 #### [facility] [address] [place], [address] CO2 [Moles/Vol] 24 mmol/L Normal 23-33 [facility] Comment on above: Performed By: #### L 300.3900, L300.4310, L501.4021, L500.2500, L100.0100 #### [facility] [address] [place], [address] HCO3 (Bld) [Moles/Vol] 22 mmol/L Normal 22-26 [facility] Comment on above: Performed By: #### L 300.3900, L300.4310, L501.4021, L500.2500, L100.0100 #### [facility] [address] [place], [address] O2 Delivery Dev Not entered [facility] Comment on above: Performed By: #### L 300.3900, L300.4310, L501.4021, L500.2500, L100.0100 #### [facility] [address] [place], [address] SITE Not entered [facility] Comment on above: Performed By: #### L 300.3900, L300.4310, L501.4021, L500.2500, L100.0100 #### [facility] [address] [place], [address] VBG BE -3 mmol/L Low -1.0-3.5 [facility] Comment on above: Performed By: #### L 300.3900, L300.4310, L501.4021, L500.2500, L100.0100 #### [facility] [address] [place], [address] VBG pCO2 39.6 mmHg Low 41-51 [facility] Comment on above: Performed By: #### L 300.3900, L300.4310, L501.4021, L500.2500, L100.0100 #### [facility] [address] [place], [address] VBG pH 7.36 Normal 7.32-7.42 [facility] Comment on above: Performed By: #### L 300.3900, L300.4310, L501.4021, L500.2500, L100.0100 #### [facility] [address] [place], [address] VBG PO2 38 mmHg Normal 25-40 [facility] Comment on above: Performed By: #### L 300.3900, L300.4310, L501.4021, L500.2500, L100.0100 #### [facility] [address] [place], [address] VBG SO2 70 Normal 50-70 [facility] Comment on above: Performed By: #### L 300.3900, L300.4310, L501.4021, L500.2500, L100.0100 #### [facility] [address] [place], [address] Blood Gas Type ROSA ISELA Normal [facility] Comment on above: Performed By: #### L 9000.0810 #### [facility] [address] [place], [address] CO2 [Moles/Vol] 25 mmol/L Normal 23-33 [facility] Comment on above: Performed By: #### L 9000.0810 #### [facility] [address] [place], [address] HCO3 (Bld) [Moles/Vol] 24 mmol/L Normal 22-26 [facility] Comment on above: Performed By: #### L 9000.0810 #### [facility] [address] [place], [address] O2 Delivery Dev Not entered Normal [facility] Comment on above: Performed By: #### L 9000.0810 #### [facility] [address] [place], [address] SITE Not entered Normal [facility] Comment on above: Performed By: #### L 9000.0810 #### [facility] [address] [place], [address] VBG BE -2 mmol/L Low -1.0-3.5 [facility] Comment on above: Performed By: #### L 9000.0810 #### [facility] [address] [place], [address] VBG pCO2 45.9 mmHg Normal 41-51 [facility] Comment on above: Performed By: #### L 9000.0810 #### [facility] [address] [place], [address] VBG pH 7.33 Normal 7.32-7.42 [facility] Comment on above: Performed By: #### L 9000.0810 #### [facility] [address] [place], [address] VBG PO2 34 mmHg Normal 25-40 [facility] Comment on above: Performed By: #### L 9000.0810 #### [facility] [address] [place], [place], [address] VBG SO2 61 Normal 50-70 [facility] Comment on above: Performed By: #### L 9000.0810 #### [facility] [address] [place], [place], [address] Venous blood base excess evette surementOrdered By: Mehnaz Gonzalez on 10-08-2024 Base excess Calc (BldV) [Moles/Vol] -3 mmol/L Low -1.0-3.5 [facility] Venous blood base excess evette surementOrdered By: Dylan Soni on 10-08-2024 Base excess Calc (BldV) [Moles/Vol] -2 mmol/L Low -1.0-3.5 [facility] Venous blood bicarbonate evette surementOrdered By: Mehnaz Gonzalez on 10-08-2024 HCO3 (Bld) [Moles/Vol] 22 mmol/L - [facility] Venous blood bicarbonate evette surementOrdered By: Dylan Soni on 10-08-2024 HCO3 (Bld) [Moles/Vol] 24 mmol/L -26 [facility] Venous blood oxygen saturati on measurementOrdered By: Mehnaz Gonzalez on 10-08-2024 Oxygen saturation in Blood 70 % 50-70 [facility] Venous blood oxygen saturati on measurementOrdered By: Dylan Soni on 10-08-2024 Oxygen saturation in Blood 61 % 50-70 [facility] Venous blood pH measurementO rdered By: Mehnaz Gonzalez on 10-08-2024 pH (BldV) 7.36 [pH] 7.32-7.42 [facility] Venous blood pH measurementO rdered By: Dylan Soni on 10-08-2024 pH (BldV) 7.33 [pH] 7.32-7.42 [facility] Venous blood partial pressur e of carbon dioxide measurementOrdered By: Mehnaz Gonzalez on 10-08-2024 CO2 (BldV) [Partial pressure] 39.6 mm[Hg] Low 41-51 [facility] Venous blood partial pressur e of carbon dioxide measurementOrdered By: Dylan Soni on 10-08-2024 CO2 (BldV) [Partial pressure] 45.9 mm[Hg] 41-51 [facility] Venous blood partial pressur e of oxygen measurementOrdered By: Mehnaz Gonzalez on 10-08-2024 Oxygen (BldV) [Partial pressure] 38 mm[Hg] 25-40 [facility] Venous blood partial pressur e of oxygen measurementOrdered By: Dylan Soni on 10-08-2024 Oxygen (BldV) [Partial pressure] 34 mm[Hg] 25-40 [facility] Vital signsOrdered By: Sally Cedeno on 10-08-2024 Heart rate 82 /min bpm [facility] Phone: White blood cell (WBC) count Ordered By: Brando Crooks on 10-08-2024 WBC (Bld) [#/Vol] 6.9 10*3/uL 4.4-11.0 [facility] XR CHEST 1 VIEWon 10-08-2024 XR CHEST 1 VIEW Patient Name: [facility]ILL[facility] 1955 [id number] Exam Date/Time: 10/08/2024 19:35 Procedure: XR CHEST 1 VIEW Ordering Provider: CEDENO GRACE Reason For Exam: ventilated patient, transferred from [place]; ventilated patient, transferred [place] INDICATION: Ventilated patient. Inpatient. Cardiac arrest. VIEWS: Chest portable-one image COMPARISON: None. FINDINGS: The endotracheal tube terminates approximately 2.3 cm above the level of the irish. An enteric tube is present with tip and sidehole in the region of the stomach in the left upper quadrant. A left PICC line is present with tip overlying the caval atrial junction. The trachea is midline. The cardiac silhouette is not enlarged. There is blunting of the left costophrenic angle. There is thickening of the interstitium with patchy right lung opacities. IMPRESSION: 1. Left lung base small pleural effusion and/or atelectasis. 2. Pulmonary edema and/or infiltrates right lung. 3. Support devices, as above. Report Dictated on Electronically Signed By: Rhonda Carpio MD Electronically Signed Date/Time: 10/08/2024 8:[address] [facility] XR Chest Single viewon 10-08 1. Left lung base small pleural effusion and/or atelectasis. 2. Pulmonary edema and/or infiltrates right lung. 3. Support devices, as above. Report Dictated on Electronically Signed By: Rhonda Carpio MD Electronically Signed Date/Time: 10/08/2024 8:06 PM EDT [facility] Patient Name: LUCAS ASTUDILLO : 1955 Exam Date/Time: 10/08/2024 19:35 Procedure: XR CHEST 1 VIEW Ordering Provider: CEDENO GRACE Reason For Exam: ventilated patient, transferred from [place]; ventilated patient, transferred from [place] INDICATION: Ventilated patient. Inpatient. Cardiac arrest. VIEWS: Chest portable-one image COMPARISON: None. FINDINGS: The endotracheal tube terminates approximately 2.3 cm above the level of the irish. An enteric tube is present with tip and sidehole in the region of the stomach in the left upper quadrant. A left PICC line is present with tip overlying the caval atrial junction. The trachea is midline. The cardiac silhouette is not enlarged. There is blunting of the left costophrenic angle. There is thickening of the interstitium with patchy right lung opacities. [facility] Rhonda Carpio MD - 10/08/2024 Patient Name: LUCAS ASTUDILLO : 1955 Exam Date/Time: 10/08/2024 19:35 Procedure: XR CHEST 1 VIEW Ordering Provider: CEDENO GRACE Reason For Exam: ventilated patient, transferred from [place]; ventilated patient, transferred from [place] INDICATION: Ventilated patient. Inpatient. Cardiac arrest. VIEWS: Chest portable-one image COMPARISON: None. FINDINGS: The endotracheal tube terminates approximately 2.3 cm above the level of the irish. An enteric tube is present with tip and sidehole in the region of the stomach in the left upper quadrant. A left PICC line is present with tip overlying the caval atrial junction. The trachea is midline. The cardiac silhouette is not enlarged. There is blunting of the left costophrenic angle. There is thickening of the interstitium with patchy right lung opacities. IMPRESSION: 1. Left lung base small pleural effusion and/or atelectasis. 2. Pulmonary edema and/or infiltrates right lung. 3. Support devices, as above. Report Dictated on Electronically Signed By: Rhonda Carpio MD Electronically Signed Date/Time: 10/08/2024 8:06 PM EDT [facility] Radiology Study observation (narrative) [facility] XR Chest Single viewOrdered By: Rhonda Carpio on 10-08-2024 [facility] Work Phone: MR/BMS.BVSon 04-28-2024 MR/BMS.BVS [facility] V[facility] Surgery [address] [place] [address] OFFICE VISIT Date of Service: 04/28/24 MR#: [id number] Acct: [id number] Name: LUCAS ASTUDILLO Rep #: [id number] : 1955 Provider: Dr. José Miguel Lambert MD Age/Sex: 68/F Location: [facility] Status: Signed Intake Vital Signs 10/29/23 21:40 [...] no sens (more content not included)... Normal [facility] [id number] 04-17-2024 [id number] HNO ID: [id number] Author: HARRY FAUSTIN PT Service: ? 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 The above goals and plan of care were discussed and agreed upon by patient/family. For further details regarding this patient refer to the Physical Therapy electronically documented visit dated 01/19/2023. Provider Attestation I have reviewed the treatment plan for Lucas Astudillo, CCF# [id number] for the period of 01/19/23 -- 02/23/23, established on 01/19/2023. Signature certifies the need for therapy services. Normal [facility] CNOVon 03-14-2024 CNOV Office Visit (FAMPWS) YONNYLUCAS MULLEN ([id number]) 1955 F Date Time Provider Department 03/14/24 11:20 AM EUGENIO PERALTA During your visit today, we recorded the [...] Take one(1) tablet twice daily. No current facility-administere d medications for this visit. ALLERGIES: ALLERGIES Allergen [...] EGD 10/20/2022 EGD TRANSORAL BIOPSY SINGLE/MULTIPLE 09/06/2007 ESOPHAGOGASTRODUODEN OSCOPY TRANSORAL DIAGNOSTIC 10/05/2017 EGD LIG/TRNSXJ FLP TUBE [...] to auscultat (more content not included)... Normal [facility] CNOVon 02-22-2024 CNOV Office Visit (FAMWS) LUCAS ASTUDILLO ([id number]) 1955 F Date Time Provider Department 02/22/24 11:40 AM LOLA FARRIS During your visit today, we recorded the following information about you: Pulse Respiration Blood pressure 58/minute 16/minute 158/88 Lola Farris APRN.CNP 02/22/2024 8:43 PM Signed This is a [...] EGD 10/20/2022 EGD TRANSORAL BIOPSY SINGLE/MULTIPLE 09/06/2007 ESOPHAGOGASTRODUODEN OSCOPY TRANSORAL DIAGNOSTIC 10/05/2017 EGD LIG/TRNSXJ FLP TUBE [...] Take one(1) tablet twice daily. No current facility-administere d medications for this visit. FAMILY HISTORY Problem [...] understanding. R (more content not included)... Normal [facility] XR KNEE 4V AP/PA BOTH+LAT/ME R [...] fracture. Joint spaces maintained. IMPRESSION: Unremarkable radiograph Umbrella Mender: TRAAN Transcribe Date/Time: Feb 26 2024 6:33P Dictated by : MEHNAZ LAI MD This examination was interpreted and the report reviewed and electronically signed by: MEHNAZ LAI MD on Feb 26 2024 6:34PM EST [id number] Normal [facility] Venous Duplex US - Ronni Extre [facility] 02-11-2024 Venous Duplex US - Ronni Extrem [facility] Cardiovascular Services [address] [place] [address] Venous Duplex US - Ronni Extrem 02/11/24 0901 MR#: [id number] Acct: [id number] Name: LUCAS ASTUDILLO Rep #: [id number] : 1955 68 From: José Miguel Lambert [...] Physician: Eugenio Peralta Performed By: Daquan Chung, RVT 02/15/24 1300 Date José Miguel Lambert MD CC: MEGA Hi; Dr. Eugenio Peralta MD Date Dictated: 02/11/24 0901 Date Transcribed: 02/15/24 1300 Umbrella Mender: Signed Normal [facility] MR/BMS.KAYLISon 01-27-2024 MR/BMS.BVS [facility] Vascular Surgery [address] [place] [address] OFFICE VISIT Date of Service: 01/27/24 MR#: [id number] Acct: [id number] Name: LUCAS ASTUDILLO Rep #: [id number] : 1955 Provider: MEGA Hi Age/Sex: 68/F Location: [facility] Status: Signed Intake Vital Signs 10/29/23 21:40 [...] denies any history of VTE. She denies pelvic/buttock/abdom inal varicosities, hematuria. She had prior workup in March at [facility]. Her duplex at that time showed [...] No confusion (more content not included)... Normal [facility] DBT Breast - bilateral scree pily 01-08-2024 IMPRESSION: There is no mammographic evidence [...] Henny Pollack M.D. Electronically signed on: 01/08/2024 Umbrella Mender: MILI Transcribe Date/Time: Jan 07 2024 10:13A Dictated by: HENNY POLLACK MD This examination was interpreted and the report reviewed and electronically signed by: HENNY POLLACK MD on Jan 08 2024 11:25AM [facility] DIVISION OF RADIOLOGY * * *Final Report* * * DATE OF EXAM: Jan 07 2024 10:43AM [facility] 0582 - ELLIOT SCREENING W SAIRA / PROCEDURE REASON: Encounter for screening mammogram for malignant neoplasm of breast * * * * Physician Interpretation * * * * RESULT: [facility] [address] [place] [address] HISTORY: Patient is 68 years old and [...] the prior study. DIVISION OF RADIOLOGY Provider, [facility] [place] - 01/08/2024 * * *Final Report* * * DATE OF EXAM: Jan 07 2024 10:43AM [facility] 0582 - ELLIOT SCREENING W SAIRA / PROCEDURE REASON: Encounter for screening mammogram for malignant neoplasm of breast * * * * Physician Interpretation * * * * RESULT: [facility] [address] [place] [address] HISTORY: Patient is 68 years old and [...] Henny Pollack M.D. Electronically signed on: 01/08/2024 Umbrella Mender: MILI Transcribe Date/Time: Jan 07 2024 10:13A Dictated by: HENNY POLLACK MD This examination was interpreted and the report reviewed and electronically signed by: HENNY POLLACK MD on Jan 08 2024 11:25AM EST [facility] DBT Breast - bilateral scree ningOrdered By: Ccf Provider on 01-08-2024 [facility] CNOVon 01-07-2024 CNOV Office Visit (OBGYWM) HOLDEN ASTUDILLOISE Maya ([id number]) 1955 F Date Time Provider Department 01/07/24 11:30 AM TIFFANI GANT OBGYWM During your visit today, we recorded the following information about you: Respiration Blood pressure Weight Height 16/minute 122/70 86.4 kg 1.677 m Tiffani Gant APRN.CNP 01/07/2024 11:40 AM Signed 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 As applicable, any other physician, advance practice provider, medical student, or other health professional student that will be observing or involved in the sensitive examination for educational or training purposes was discussed with the Patient or Authorized Police Service Technician. The Patient or Authorized Police Service Technician has agreed to proceed with the sensitive [...] external genitalia normal, normal Bartholin's glands, urethra, [place]'s glands, no vulvar lesions, no cervical lesions, good vaginal support, physiologic discharge present, normal appearing perineal body and perianal region BIMANUAL: uterus normal size, shape and consistency, no adnexal masses, and non-tender RECTOVAGINAL: deferred. NEURO: alert and oriented x3,exam grossly non-focal EXTREMITIES: normal ASSESSMENT/PLAN: 1) Health maintenance: Pap done with HPV (more content not included)... Normal [facility] DBT Breast - bilateral scree drewgodanielle 01-07-2024 Radiology Study observation (narrative) [facility] HIGH RISK HUMAN PAPILLOMA NAE (HPV), PCR FOR DETECTION AND GENOTYPINGon 01-07-2024 HPV 16 Ag Ql (Unsp spec) Not detected Normal Not detec jorge [facility] Comment on above: Order Comment: Speci men Type: FLUID SPECIMENOrdering Facility: [facility] Address: [address] [place] [address] Performed By: #### H PVHRT, [id number] ####[facility] LABCLIA [id number] [place] [address] [place] HPV 18 Ag Ql (Unsp spec) Not detected Normal Not detec jorge [facility] Comment on above: Order Comment: Speci men Type: FLUID SPECIMENOrdering Facility: [facility] Address: [address] [place] [address] Performed By: #### H PVHRT, [id number] ####[facility] LABCLIA [id number] [place] [address] [place] HPV 31+33+35+39+45+51+52+56+ 58+59+66+68 DNA GUSTAVO+probe Ql (Cvx) Not detected Normal Not detected [facility] Comment on above: Order Comment: Speci men Type: FLUID SPECIMENOrdering Facility: [facility] Address: [address] [place] [address] Result Comment: High Risk HPV Other Type includes HPV types 31, 33, 35, 39, 45, 51, 52, 56, 58, 59, 66 and 68. Performed By: #### H PVHRT, [id number] ####[facility] LABCLIA [id number] [place] [address] [place] ELLIOT SCREENING W TOMOon 01-06 ELLIOT SCREENING W SAIRA * * *Final Report* * * DATE OF EXAM: Jan 07 2024 10:43AM [facility] 0582 - ELLIOT SCREENING W SAIRA / PROCEDURE REASON: Encounter for screening mammogram for malignant neoplasm of breast * * * * Physician Interpretation * * * * RESULT: [address] [address] HISTORY: Patient is 68 years old and [...] Henny Pollack M.D. Electronically signed on: 01/08/2024 Umbrella Mender: MILI Transcribe Date/Time: Jan 07 2024 10:13A Dictated by: HENNY POLLACK MD This examination was interpreted and the report reviewed and electronically signed by: HENNY POLLACK MD on Jan 08 2024 11:25AM EST [id number] [facility] PAP TESTon 01-07-2024 ADEQUACY Normal [facility] Comment on above: Order Comment: Speci men Type: FLUID SPECIMENOrdering Facility: [facility] Address: [address] [place] [address] Result Comment: Sati sfactory for interpretation. No endocervical component Performed By: #### H PVHRT, [id number] ####[facility] LABCLIA [id number] [place] [address] [place] CASE REPORT Normal [facility] Comment on above: Order Comment: Speci men Type: FLUID SPECIMENOrdering Facility: [facility] Address: [address] [place] [address] Result Comment: Gyne cologic Cytology Report Case: [id number] Authorizing Provider: Tiffani Gant APRN.INSOLVENCY CONSULTANT Collected: 01/07/2024 11:26 AM Ordering Location: OB/Gynecology Received: 01/07/2024 12:00 PM First Screen: Deeds, Hardy, CT, ASCP Specimen: Pap Test, ThinPrep, Cervix Performed By: #### H PVHRT, [id number] ####[facility] LABCLIA [id number] [place] [address] [place] CLINICAL HISTORY, CYTOLOGY, AUTOMOTIVE TIRE TESTER Routine Exam Normal [facility] Comment on above: Order Comment: Speci men Type: FLUID SPECIMENOrdering Facility: [facility] Address: [address] [place] [address] Result Comment: Post Menopausal Performed By: #### H PVHRT, [id number] ####[facility] LABCLIA [id number] [place] [address] [place] FINAL PERFORMING LAB Normal [facility] Comment on above: Order Comment: Speci men Type: FLUID SPECIMENOrdering Facility: [facility] Address: [address] [place] [address] Result Comment: Tech nical component, polisher apprentice screening performed at [facility], [address] [place] [address] CLIA# [id number] Diagnostic interpretation performed at [facility], [address] [place] [address] CLIA# [id number] Appraiser Irrigation Tax: Oracio Hilario M.D. Performed By: #### H PVHRT, [id number] ####[facility] LABCLIA [id number] [place] [address] [place] HPV REFLEX Yes HPV Normal [facility] Comment on above: Order Comment: Speci men Type: FLUID SPECIMENOrdering Facility: [facility] Address: [address] [place] [address] Performed By: #### H PVHRT, [id number] ####[facility] LABCLIA [id number] [facility] [address] [address] [place] INTERPRETATION, CYTOLOGY, AUTOMOTIVE TIRE TESTER Normal [facility] Comment on above: Order Comment: Speci men Type: FLUID SPECIMENOrdering Facility: [facility] Address: [address] [place] [address] Result Comment: Nega tive for intraepithelial lesion or malignancy. Performed By: #### H PVHRT, [id number] ####[facility] LABCLIA [id number] [place] [address] [place] PAP DISCLAIMER COMMENT The Pap Smear is a screening test for cervical cancer. False negative results occur with all screening tests, emphasizing the need for rescreening at recommended intervals, and clinical correlation. Normal [facility] Comment on above: Order Comment: Speci men Type: FLUID SPECIMENOrdering Facility: [facility] Address: [address] [place] [address] Performed By: #### H PVHRT, [id number] ####[facility] LABCLIA [id number] [place] [address] [place] PAP ROUTER MACHINE OPERATOR COMMENT This specimen has been analyzed by the ThinPrep Imaging System, an automated imaging and review system, which assists the laboratory in evaluating cells on ThinPrep Pap tests. Following automated imaging, selected brown from every slide are reviewed by a polisher apprentice. Normal [facility] Comment on above: Order Comment: Speci men Type: FLUID SPECIMENOrdering Facility: [facility] Address: [address] [place] [address] Performed By: #### H PVHRT, [id number] ####[facility] LABCLIA [id number] [place] [id number] [facility] CNOVon 12-24-2023 CNOV Office Visit (FAMPWS) LUCAS ASTUDILLO ([id number]) 1955 F Date Time Provider Department 12/24/23 2:00 PM [facility] During your visit today, we recorded the following information about you: Pulse Respiration Blood pressure Weight 68/minute 16/minute 120/80 88.9 kg Celia Rider MA 12/24/2023 2:11 PM Signed 12/24/2023: Home BP Cuff Validated. Home BP: 125/83 P69 Office BP: 130/82 P:68 Celia Rider MA December 24, 2023 2:11 PM Natalia Monge APRN.INSOLVENCY CONSULTANT 12/24/2023 2:23 PM Signed This is a [...] EGD 10/20/2022 EGD TRANSORAL BIOPSY SINGLE/MULTIPLE 09/06/2007 ESOPHAGOGASTRODUODEN OSCOPY TRANSORAL DIAGNOSTIC 10/05/2017 EGD LIG/TRNSXJ FLP TUBE [...] Take one(1) tablet twice daily. No current facility-administere d medications for this visit. FAMILY HISTORY Problem [...] (more content not included)... [facility] Telephone (FAMPWS) LUCAS ASTUDILLO ([id number]) 1955 F Date Time Provider Department 12/22/23 [facility] During your visit today, we recorded the following information about you: Crystal Henning, OSWALDO 12/22/2023 10:56 AM Signed Pt called in [...] Status:Closed by CRYSTAL HENNING on 12/22/23 Normal [facility] XR Chest PA and Lateralon IMPRESSION: No acute radiographic abnormality. Umbrella Mender: PSCB Transcribe Date/Time: Mar 31 2023 12:59P Dictated by : JESUSITA RODRIGUEZ MD This examination was interpreted and the report reviewed and electronically signed by: JESUSITA RODRIGUEZ MD on Mar 31 2023 12:59PM [facility] DIVISION OF RADIOLOGY * * *Final [...] in the spine. DIVISION OF RADIOLOGY Provider, [facility] [place] - 03/31/2023 * * *Final Report* * [...] spine. IMPRESSION IMPRESSION: No acute radiographic abnormality. Umbrella Mender: [facility] Transcribe Date/Time: Mar 31 2023 12:59P Dictated by : JESUSITA RODRIGUEZ MD This examination was interpreted and the report reviewed and electronically signed by: JESUSITA RODRIGUEZ MD on Mar 31 2023 12:59PM EST [facility] Radiology Study observation (narrative) Sridevi barragan [facility] XR Chest PA and LateralOrder ed By: Ccf Provider on 03-31-2023 [facility] ELLIOT SCREENING W TOMOon 01-05 [facility] XR Foot - bilateral AP and L ateral and obliqueon 12-18-2022 IMPRESSION: No acute osseous abnormality [facility]mbrella Mender[facility] Transcribe Date/Time: Dec 18 2022 7:42A Dictated by : ESTRELLA PINEDA MD This examination was interpreted and the report reviewed and electronically signed by: ESTRELLA PINEDA MD on Dec 18 2022 7:47AM [facility] DIVISION OF RADIOLOGY * * *Final [...] plantar calcaneal spur. DIVISION OF RADIOLOGY Provider, [facility] [place] - 12/18/2022 * * *Final Report* * [...] spur. IMPRESSION IMPRESSION: No acute osseous abnormality Umbrella Mender: [facility] Transcribe Date/Time: Dec 18 2022 7:42A Dictated by : ESTRELLA PINEDA MD This examination was interpreted and the report reviewed and electronically signed by: ESTRELLA PINEDA MD on Dec 18 2022 7:47AM EST [facility] XR Foot - bilateral AP and L ateral and obliqueOrdered By: Ccf Provider on 12-18-2022 [facility] XR Foot - bilateral AP and L ateral and obliqueon 12-16-2022 Radiology Study observation (narrative) [facility] DXA-AXIAL SKELETONon 023 LOWEST T-SCORE -2.0 [facility] US SCREENING FOR AAAon 12-03 [facility] XR Lumbar spine 3 Viewson IMPRESSION: DEGENERATIVE CHANGE AND ALIGNMENT ABNORMALITIES DESCRIBED. Umbrella Mender: [facility] Transcribe Date/Time: Nov 17 2022 2:21P Dictated by : JEN COLINDRES MD This examination was interpreted and the report reviewed and electronically signed by: JEN COLINDRES MD on Nov 17 2022 2:23PM [facility] DIVISION OF RADIOLOGY * * *Final [...] focal bony abnormality DIVISION OF RADIOLOGY Provider, [facility] [place] - 11/17/2022 * * *Final Report* * [...] IMPRESSION: DEGENERATIVE CHANGE AND ALIGNMENT ABNORMALITIES DESCRIBED. Umbrella Mender: PSCB Transcribe Date/Time: Nov 17 2022 2:21P Dictated by : JEN COLINDRES MD This examination was interpreted and the report reviewed and electronically signed by: JEN COLINDRES MD on Nov 17 2022 2:23PM EST [facility] XR Lumbar spine 3 ViewsOrder ed By: Ccf Provider on 11-17-2022 [facility] XR Lumbar spine 3 Viewson Radiology Study observation (narrative) [facility] STREP A MOLECULAR (POC)on Procedural Control Valid [facility] Strep A (POCT) Negative Negative [facility] SURGICAL PATHOLOGYon 023 Case Report Surgical Pathology Report Case: [id number] Authorizing Provider: Eriberto Disla MD Collected: 10/20/2022 09:07 AM Ordering Location: Ambulatory Surgery Received: 10/20/2022 01:38 PM Pathologist: Chanelle Felix MD Specimens: A) - DUODENUM BIOPSY B) - ANTRUM (STOMACH) BIOPSY, Antral for H/H C) - ESOPHAGUS BIOPSY, distal esophagus bx D) - ESOPHAGUS MID BIOPSY [facility] FINAL DIAGNOSIS A. Duodenum, biopsy: -Duodenal [...] significant histologic abnormality -Negative for intraepithelial eosinophils [facility] Gross Description A. DUODENUM BIOPSY Received [...] in one cassette. Gross examination performed at [facility], [facility] [place] [address] JT 10/21/2022 2:19 AM [facility] Performing Lab Diagnostic interpretation performed at [facility], [address] [place] [address] CLIA# [id number] Appraiser Irrigation Tax: Oracio Hilario M.D. [facility] XR Hand - right PA and Later al and Obliqueon 10-21-2022 IMPRESSION: No radiographic evidence of acute osseous abnormality Umbrella Mender: [facility] Transcribe Date/Time: Oct 21 2022 1:32P Dictated by : YOUNG CHAO MD This examination was interpreted and the report reviewed and electronically signed by: YOUNG CHAO MD on Oct 21 2022 1:34PM [facility] DIVISION OF RADIOLOGY * * *Final [...] radiopaque foreign body. DIVISION OF RADIOLOGY Provider, [facility] [place] - 10/21/2022 * * *Final Report* * [...] No radiographic evidence of acute osseous abnormality Umbrella Mender: [facility] Transcribe Date/Time: Oct 21 2022 1:32P Dictated by : YOUNG CHAO MD This examination was interpreted and the report reviewed and electronically signed by: YOUNG CHAO MD on Oct 21 2022 1:34PM [facility] Radiology Study observation (narrative) [facility] XR Hand - right PA and Later al and ObliqueOrdered By: Ccf Provider on 10-21-2022 [facility] EGD DIAGNOSTICon 10-20-2022 [facility] XR CHEST 2V FRONTAL/LATon [facility] XR Chest PA and Lateralon IMPRESSION: No acute radiographic abnormality. Umbrella Mender: [facility] Transcribe Date/Time: Feb 17 2022 10:30A Dictated by : JEN COLINDRES MD This examination was interpreted and the report reviewed and electronically signed by: JEN COLINDRES MD on Feb 17 2022 10:31AM [facility] DIVISION OF RADIOLOGY * * *Final [...] soft tissues: Unremarkable. DIVISION OF RADIOLOGY Provider, [facility] [place] - 02/17/2022 * * *Final Report* * [...] Unremarkable. IMPRESSION IMPRESSION: No acute radiographic abnormality. Umbrella Mender: PSCB Transcribe Date/Time: Feb 17 2022 10:30A Dictated by : JEN COLINDRES MD This examination was interpreted and the report reviewed and electronically signed by: JEN COLINDRES MD on Feb 17 2022 10:31AM EST [facility] Radiology Study observation (narrative) [facility] XR Chest PA and LateralOrder ed By: Ccf Provider on 02-17-2022 [facility] STREP A MOLECULAR (POC)on Procedural Control Valid [facility] Strep A (POCT) Negative Negative [facility] Vital Signs Date Time Vital Sign Value Performing Clinician Facility 11-01-2024 13:40-0400 Body height 167.[address] Eugenio Peralta MD Work Phone: [facility] 11-01-2024 13:40-0400 Body weight 85.[address] Eugenio Peralta MD Work Phone: [facility] 11-01-2024 13:05-0400 Body mass index (BMI) [Ratio] 30.4 kg/m2 Dr. Eugenio Peralta MD Work Phone: [facility] 11-01-2024 13:05-0400 Heart rate 60 /min Dr. Eugenio Peralta MD Work Phone: [facility] 11-01-2024 13:05-0400 SaO2% (BldA) [Mass fraction] 98 % Dr. Eugenio Peralta MD Work Phone: [facility] 10-26-2024 10:32-0400 Body mass index (BMI) [Ratio] 30.06 kg/m2 Eugenio Peralta MD Work Phone: [facility] 10-26-2024 10:32-0400 Body weight 84.55 kg Eugenio Peratla MD Work Phone: [facility] 10-26-2024 10:32-0400 Diastolic blood pressure 70 mm[Hg] Eugenio Peralta MD Work Phone: [facility] 10-26-2024 10:32-0400 Heart rate 62 /min Eugenio Peralta MD Work Phone: [facility] 10-26-2024 10:32-0400 SaO2% (BldA) [Mass fraction] 94 % Eugenio Peralta MD Work Phone: [facility] 10-26-2024 10:32-0400 Systolic blood pressure 102 mm[Hg] Eugenio Peralta MD Work Phone: [facility] 10-20-2024 09:25-0400 Body height 167.[address] Eugenio Peralta MD Work Phone: [facility] 10-20-2024 09:25-0400 Body mass index (BMI) [Ratio] 30.4 kg/m2 Dr. Eugenio Peralta MD Work Phone: [facility] 10-20-2024 09:25-0400 Body weight 85.[address] Eugenio Peralta MD Work Phone: [facility] 10-20-2024 09:25-0400 Diastolic blood pressure 72 mm[Hg] Dr. Eugenio Peralta MD Work Phone: [facility] 10-20-2024 09:25-0400 Heart rate 60 /min Dr. Eugenio Peralta MD Work Phone: [facility] 10-20-2024 09:25-0400 Respiratory rate 14 /min Dr. Eugenio Peralta MD Work Phone: [facility] 10-20-2024 09:25-0400 SaO2% (BldA) [Mass fraction] 98 % Dr. Eugenio Peralta MD Work Phone: [facility] 10-20-2024 09:25-0400 Systolic blood pressure 107 mm[Hg] Dr. Eugenio Peralta MD Work Phone: [facility] 10-11-2024 14:15-0400 Diastolic blood pressure 71 mm[Hg] Ameya Stewart MD Work Phone: [facility] 10-11-2024 14:15-0400 Heart rate 64 /min Ameya Stewart MD Work Phone: [facility] 10-11-2024 14:15-0400 Respiratory rate 22 /min Ameya Stewart MD Work Phone: [facility] 10-11-2024 14:15-0400 Systolic blood pressure 106 mm[Hg] Ameya Stewart MD Work Phone: [facility] 10-11-2024 13:00-0400 SaO2% (BldA) [Mass fraction] 94 % Ameya Stewart MD Work Phone: [facility] 10-11-2024 09:00-0400 Body temperature 98.6 [degF] Ameya Stewart MD Work Phone: [facility] 10-11-2024 01:11-0400 Body mass index (BMI) [Ratio] 30.38 kg/m2 Ameya Stewart MD Work Phone: [facility] 10-11-2024 01:11-0400 Body weight 88 kg Ameya Stewart MD Work Phone: [facility] 10-10-2024 11:37-0400 Body height 170.2 cm Ameya Stewart MD Work Phone: [facility] 10-08-2024 19:50-0400 SaO2% (BldA) [Mass fraction] 97.7 % Ameya Stewart MD Work Phone: [facility] 10-08-2024 16:00-0400 Body temperature 101.7 [degF] Dr. Eugenio Peralta MD Work Phone: 5(044)954-[address] [place] [address] 10-08-2024 16:00-0400 Diastolic blood pressure 72 mm[Hg] Dr. Eugenio Peralta MD Work Phone: 4(648)859-471974 [place] [address] 10-08-2024 16:00-0400 Heart rate 80 /min Dr. Eugenio Peralta MD Work Phone: 3(502)889-576774 [place] [address] 10-08-2024 16:00-0400 Inhaled oxygen concentration 40 % Dr. Eugenio Peralta MD Work Phone: 6(869)270-861874 [place] [address] 10-08-2024 16:00-0400 SaO2% (BldA) [Mass fraction] 96 % Dr. Eugenio Peralta MD Work Phone: 5(457)853-703574 [place] [address] 10-08-2024 16:00-0400 Systolic blood pressure 92 mm[Hg] Dr. Eugenio Peralta MD Work Phone: 7(867)896-664074 [place] [address] 10-08-2024 10:17-0400 Body height 167.[address] Eugenio Peralta MD Work Phone: 9(880)741-281474 [place] [address] 10-08-2024 10:17-0400 Body weight 89.[address] Eugenio Peralta MD Work Phone: 9(836)445-808774 [place] [address] 10-08-2024 06:30-0400 Body mass index (BMI) [Ratio] 31.8 kg/m2 Dr. Eugenio Peralta MD Work Phone: 1(809)347-195474 [place] [address] 10-08-2024 04:18-0400 Body temperature 98.9 [degF] Dr. Eugenio Peralta MD Work Phone: 5(253)857-999474 [place] [address] 10-08-2024 04:18-0400 Diastolic blood pressure 96 mm[Hg] Dr. Eugenio Peralta MD Work Phone: 0(258)602-297474 [place] [address] 10-08-2024 04:18-0400 Heart rate 57 /min Dr. Eugenio Peralta MD Work Phone: 9(646)762-649774 [place] [address] 10-08-2024 04:18-0400 Respiratory rate 18 /min Dr. Eugenio Peralta MD Work Phone: 3(108)142-344274 [place] [address] 10-08-2024 04:18-0400 SaO2% (BldA) [Mass fraction] 100 % Dr. Eugenio Peralta MD Work Phone: [facility] 10-08-2024 04:18-0400 Systolic blood pressure 167 mm[Hg] Dr. Eugenio Peralta MD Work Phone: [facility] 10-08-2024 03:57-0400 Body height 167.[address] Eugenio Peralta MD Work Phone: [facility] 10-08-2024 03:57-0400 Body mass index (BMI) [Ratio] 31.7 kg/m2 Dr. Eugenio Peralta MD Work Phone: [facility] 10-08-2024 03:57-0400 Body weight 89.[address] Eugenio Peralta MD Work Phone: [facility] 03-14-2024 11:14-0500 Body mass index (BMI) [Ratio] 31.08 kg/m2 Eugenio Peralta MD Work Phone: [facility] 03-14-2024 11:14-0500 Body weight 87.4 kg Eugenio Peralta MD Work Phone: [facility] 03-14-2024 11:14-0500 Diastolic blood pressure 72 mm[Hg] Eugenio Peralta MD Work Phone: [facility] 03-14-2024 11:14-0500 Heart rate 64 /min Eugenio Peralta MD Work Phone: [facility] 03-14-2024 11:14-0500 SaO2% (BldA) [Mass fraction] 97 % Eugenio Peralta MD Work Phone: [facility] 03-14-2024 11:14-0500 Systolic blood pressure 122 mm[Hg] Eugenio Peralta MD Work Phone: [facility] 02-22-2024 11:45-0500 Diastolic blood pressure 88 mm[Hg] Lola Farris APRN.CNP Work Phone: [facility] Comment on above: BALA BP 02-22-2024 11:45-0500 Heart rate 58 /min Lola Haagen [employer] FACTORY WORKER.INSOLVENCY CONSULTANT Work Phone: [facility] 02-22-2024 11:45-0500 Systolic blood pressure 158 mm[Hg] Lola Haagen [employer] FACTORY WORKER.INSOLVENCY CONSULTANT Work Phone: [facility] Comment on above: BALA BP 02-22-2024 11:36-0500 Respiratory rate 16 /min Lola Haagen [employer] FACTORY WORKER.INSOLVENCY CONSULTANT Work Phone: [facility] 02-22-2024 11:36-0500 SaO2% (BldA) [Mass fraction] 98 % Lola Haagen [employer] FACTORY WORKER.INSOLVENCY CONSULTANT Work Phone: [facility] 01-07-2024 10:49-0400 Body height 167.7 cm Tiffani Alfreda [employer] FACTORY WORKER.INSOLVENCY CONSULTANT Work Phone: [facility] 01-07-2024 10:49-0400 Body mass index (BMI) [Ratio] 30.71 kg/m2 Tiffani York [employer] FACTORY WORKER.INSOLVENCY CONSULTANT Work Phone: [facility] 01-07-2024 10:49-0400 Body weight 86.36 kg Tiffani Alfreda [employer] FACTORY WORKER.INSOLVENCY CONSULTANT Work Phone: [facility] 01-07-2024 10:49-0400 Diastolic blood pressure 70 mm[Hg] Tiffani York [employer] FACTORY WORKER.INSOLVENCY CONSULTANT Work Phone: [facility] 01-07-2024 10:49-0400 Respiratory rate 16 /min Tiffani Alfreda [employer] FACTORY WORKER.INSOLVENCY CONSULTANT Work Phone: [facility] 01-07-2024 10:49-0400 Systolic blood pressure 122 mm[Hg] Tiffani Alfreda [employer] FACTORY WORKER.INSOLVENCY CONSULTANT Work Phone: [facility] 12-24-2023 14:19-0400 Diastolic blood pressure 80 mm[Hg] Natalia Suppan [employer] FACTORY WORKER.INSOLVENCY CONSULTANT Work Phone: [facility] 12-24-2023 14:19-0400 Systolic blood pressure 120 mm[Hg] Natalia Suppan [employer] FACTORY WORKER.INSOLVENCY CONSULTANT Work Phone: [facility] 12-24-2023 14:07-0400 Body mass index (BMI) [Ratio] 31.63 kg/m2 Natalia Monge [employer] FACTORY WORKER.INSOLVENCY CONSULTANT Work Phone: [facility] 12-24-2023 14:07-0400 Body weight 88.9 kg Natalia Suppshay [employer] FACTORY WORKER.INSOLVENCY CONSULTANT Work Phone: [facility] 12-24-2023 14:07-0400 Heart rate 68 /min Natalia Suppshay [employer] FACTORY WORKER.INSOLVENCY CONSULTANT Work Phone: [facility] 12-24-2023 14:07-0400 Respiratory rate 16 /min Natalia Suppan [employer] FACTORY WORKER.INSOLVENCY CONSULTANT Work Phone: [facility] 12-24-2023 14:07-0400 SaO2% (BldA) [Mass fraction] 98 % Natalia Monge [employer] FACTORY WORKER.INSOLVENCY CONSULTANT Work Phone: [facility] 12-03-2023 09:27-0400 Body mass index (BMI) [Ratio] 31.15 kg/m2 Mayra Lan PA-C Work Phone: [facility] 12-03-2023 09:27-0400 Body temperature 97.7 [degF] Mayra Lan PA-C Work Phone: [facility] 12-03-2023 09:27-0400 Body weight 87.54 kg Mayra Lan PA-C Work Phone: [facility] 12-03-2023 09:27-0400 Diastolic blood pressure 86 mm[Hg] Mayra Lan PA-C Work Phone: [facility] 12-03-2023 09:27-0400 Heart rate 64 /min Mayra Lan PA-C Work Phone: [facility] 12-03-2023 09:27-0400 Respiratory rate 16 /min Mayra Lan PA-C Work Phone: [facility] 12-03-2023 09:27-0400 SaO2% (BldA) [Mass fraction] 97 % Mayra Lan PA-C Work Phone: [facility] 12-03-2023 09:27-0400 Systolic blood pressure 136 mm[Hg] Mayra Lan PA-C Work Phone: [facility] 10-26-2023 11:20-0400 Diastolic blood pressure 88 mm[Hg] Eugenio Peralta MD Work Phone: [facility] 10-26-2023 11:20-0400 Systolic blood pressure 136 mm[Hg] Eugenio Peralta MD Work Phone: [facility] 10-26-2023 10:38-0400 Body height 167.6 cm Eugenio Peralta MD Work Phone: [facility] 10-26-2023 10:38-0400 Body mass index (BMI) [Ratio] 31.47 kg/m2 Eugenio Peralta MD Work Phone: [facility] 10-26-2023 10:38-0400 Body weight 88.45 kg Eugenio Peralta MD Work Phone: [facility] 10-26-2023 10:38-0400 Heart rate 63 /min Eugenio Peralta MD Work Phone: [facility] 10-26-2023 10:38-0400 SaO2% (BldA) [Mass fraction] 98 % Eugenio Peralta MD Work Phone: [facility] 08-01-2023 10:40-0400 Body mass index (BMI) [Ratio] 31.46 kg/m2 Enmanuel Macias MD Work Phone: [facility] 08-01-2023 10:40-0400 Body temperature 98.1 [degF] Enmanuel Macias MD Work Phone: [facility] 08-01-2023 10:40-0400 Body weight 88.4 kg Enmanuel Macias MD Work Phone: [facility] 08-01-2023 10:40-0400 Diastolic blood pressure 79 mm[Hg] Enmanuel Macias MD Work Phone: [facility] 08-01-2023 10:40-0400 Heart rate 62 /min Enmanuel Macias MD Work Phone: [facility] 08-01-2023 10:40-0400 Respiratory rate 18 /min Enmanuel Macias MD Work Phone: [facility] 08-01-2023 10:40-0400 SaO2% (BldA) [Mass fraction] 99 % Enmanuel Macias MD Work Phone: [facility] 08-01-2023 10:40-0400 Systolic blood pressure 162 mm[Hg] Enmanuel Macias MD Work Phone: [facility] 05-26-2023 14:16-0500 Diastolic blood pressure 76 mm[Hg] Lexy Rivas DO Work Phone: [facility] 05-26-2023 14:16-0500 Heart rate 64 /min Lexy Rivas DO Work Phone: [facility] 05-26-2023 14:16-0500 SaO2% (BldA) [Mass fraction] 96 % Lexy Rivas DO Work Phone: [facility] 05-26-2023 14:16-0500 Systolic blood pressure 125 mm[Hg] Lexy Rivas DO Work Phone: [facility] 02-17-2023 08:46-0500 Diastolic blood pressure 77 mm[Hg] Lexy Rivas DO Work Phone: [facility] 02-17-2023 08:46-0500 Heart rate 61 /min Lexy Rivas DO Work Phone: [facility] 02-17-2023 08:46-0500 SaO2% (BldA) [Mass fraction] 96 % Lexy Rivas DO Work Phone: [facility] 02-17-2023 08:46-0500 Systolic blood pressure 128 mm[Hg] Lexy Rivas DO Work Phone: [facility] 11-14-2022 10:03-0400 Body weight 87.54 kg NA Hughes PA-C Work Phone: [facility] 11-14-2022 10:03-0400 Diastolic blood pressure 70 mm[Hg] NA Hughes PA-C Work Phone: [facility] 11-14-2022 10:03-0400 Heart rate 67 /min NA Hughes PA-C Work Phone: [facility] 11-14-2022 10:03-0400 Respiratory rate 16 /min NA Hughes PA-C Work Phone: [facility] 11-14-2022 10:03-0400 SaO2% (BldA) [Mass fraction] 97 % NA Hughes PA-C Work Phone: [facility] 11-14-2022 10:03-0400 Systolic blood pressure 120 mm[Hg] NA Hughes PA-C Work Phone: [facility] 11-01-2022 10:08-0400 Body temperature 98.29 [degF] Johanne Tom [employer] FACTORY WORKER.INSOLVENCY CONSULTANT Work Phone: [facility] 11-01-2022 10:08-0400 Body weight 87.73 kg Johanne Tom [employer] FACTORY WORKER.INSOLVENCY CONSULTANT Work Phone: [facility] 11-01-2022 10:08-0400 Diastolic blood pressure 80 mm[Hg] Johanne Tom [employer] FACTORY WORKER.INSOLVENCY CONSULTANT Work Phone: [facility] 11-01-2022 10:08-0400 Heart rate 57 /min Johanne Tom [employer] FACTORY WORKER.INSOLVENCY CONSULTANT Work Phone: [facility] 11-01-2022 10:08-0400 Respiratory rate 21 /min Johanne Tom [employer] FACTORY WORKER.INSOLVENCY CONSULTANT Work Phone: [facility] 11-01-2022 10:08-0400 SaO2% (BldA) [Mass fraction] 98 % Johanne Tom [employer] FACTORY WORKER.INSOLVENCY CONSULTANT Work Phone: [facility] 11-01-2022 10:08-0400 Systolic blood pressure 132 mm[Hg] Johanne Tom INSOLVENCY CONSULTANT Work Phone: [facility] 10-28-2022 10:32-0400 Body temperature 97.9 [degF] Crystal Willow Hill PA-C Work Phone: [facility] 10-28-2022 10:32-0400 Diastolic blood pressure 88 mm[Hg] Crystal Zeina PA-C Work Phone: [facility] 10-28-2022 10:32-0400 Heart rate 68 /min Crystal Willow Hill PA-C Work Phone: [facility] 10-28-2022 10:32-0400 SaO2% (BldA) [Mass fraction] 97 % Crystal Zeina PA-C Work Phone: [facility] 10-28-2022 10:32-0400 Systolic blood pressure 122 mm[Hg] Crystal Willow Hill PA-C Work Phone: [facility] 10-20-2022 09:45-0400 Diastolic blood pressure 86 mm[Hg] Eriberto Disla MD Work Phone: [facility] 10-20-2022 09:45-0400 Heart rate 57 /min Eriberto Disla MD Work Phone: [facility] 10-20-2022 09:45-0400 Respiratory rate 16 /min Eriberto Disla MD Work Phone: [facility] 10-20-2022 09:45-0400 SaO2% (BldA) [Mass fraction] 96 % Eriberto Disla MD Work Phone: [facility] 10-20-2022 09:45-0400 Systolic blood pressure 158 mm[Hg] Eriberto Disla MD Work Phone: [facility] 10-20-2022 07:59-0400 Body temperature 97.81 [degF] Eriberto Disla MD Work Phone: [facility] 07-22-2022 13:16-0400 Body height 167.6 cm Crystal Zeina PA-C Work Phone: [facility] 07-22-2022 13:16-0400 Body temperature 96.21 [degF] Crystal Zeina PA-C Work Phone: [facility] 07-22-2022 13:16-0400 Body weight 91.54 kg Crystal Willow Hill PA-C Work Phone: [facility] 07-22-2022 13:16-0400 Diastolic blood pressure 88 mm[Hg] Crystal Willow Hill PA-C Work Phone: [facility] 07-22-2022 13:16-0400 Heart rate 82 /min Crystal Willow Hill PA-C Work Phone: [facility] 07-22-2022 13:16-0400 SaO2% (BldA) [Mass fraction] 100 % Crystal Willow Hill PA-C Work Phone: [facility] 07-22-2022 13:16-0400 Systolic blood pressure 120 mm[Hg] Crystal Willow Hill PA-C Work Phone: [facility] 02-17-2022 09:27-0500 Diastolic blood pressure 98 mm[Hg] Lola Haagen [employer] FACTORY WORKER.INSOLVENCY CONSULTANT Work Phone: [facility] 02-17-2022 09:27-0500 Systolic blood pressure 150 mm[Hg] Lola Haagen [employer] FACTORY WORKER.INSOLVENCY CONSULTANT Work Phone: [facility] 02-17-2022 08:56-0500 Body temperature 99.81 [degF] Lola Haagen [employer] FACTORY WORKER.INSOLVENCY CONSULTANT Work Phone: [facility] 02-17-2022 08:56-0500 Body weight 89.63 kg Lola Haagen [employer] FACTORY WORKER.INSOLVENCY CONSULTANT Work Phone: [facility] 02-17-2022 08:56-0500 Heart rate 77 /min Lola Haagen [employer] FACTORY WORKER.INSOLVENCY CONSULTANT Work Phone: [facility] 02-17-2022 08:56-0500 Respiratory rate 16 /min Lola Haagen [employer] FACTORY WORKER.INSOLVENCY CONSULTANT Work Phone: [facility] 02-17-2022 08:56-0500 SaO2% (BldA) [Mass fraction] 97 % Lola Farris [employer] FACTORY WORKER.INSOLVENCY CONSULTANT Work Phone: [facility] 02-13-2022 09:55-0500 Body temperature 98.49 [degF] Alberto Rey [employer] FACTORY WORKER.INSOLVENCY CONSULTANT Work Phone: [facility] 02-13-2022 09:55-0500 Body weight 91.54 kg Alberto Rey [employer] FACTORY WORKER.INSOLVENCY CONSULTANT Work Phone: [facility] 02-13-2022 09:55-0500 Diastolic blood pressure 92 mm[Hg] Alberto Rey [employer] FACTORY WORKER.INSOLVENCY CONSULTANT Work Phone: [facility] 02-13-2022 09:55-0500 Heart rate 71 /min Alberto Rey [employer] FACTORY WORKER.INSOLVENCY CONSULTANT Work Phone: [facility] 02-13-2022 09:55-0500 Respiratory rate 20 /min Alberto Rey [employer] FACTORY WORKER.INSOLVENCY CONSULTANT Work Phone: [facility] 02-13-2022 09:55-0500 SaO2% (BldA) [Mass fraction] 95 % Alberto Rey [employer] FACTORY WORKER.INSOLVENCY CONSULTANT Work Phone: [facility] 02-13-2022 09:55-0500 Systolic blood pressure 142 mm[Hg] Alberto Rey [employer] FACTORY WORKER.INSOLVENCY CONSULTANT Work Phone: [facility] 01-02-2022 14:29-0400 Body height 168.9 cm Tiffani Alfreda [employer] FACTORY WORKER.INSOLVENCY CONSULTANT Work Phone: [facility] 01-02-2022 14:29-0400 Body weight 90.72 kg Tiffani York [employer] FACTORY WORKER.INSOLVENCY CONSULTANT Work Phone: [facility] 01-02-2022 14:29-0400 Diastolic blood pressure 60 mm[Hg] Tfifani Alfreda [employer] FACTORY WORKER.INSOLVENCY CONSULTANT Work Phone: [facility] 01-02-2022 14:29-0400 Systolic blood pressure 120 mm[Hg] Tiffani Alfreda [employer] FACTORY WORKER.INSOLVENCY CONSULTANT Work Phone: [facility] 12-17-2021 16:03-0400 Diastolic blood pressure 79 mm[Hg] Mi Nurse Work Phone: [facility] 12-17-2021 16:03-0400 Heart rate 59 /min Mi Nurse Work Phone: [facility] 12-17-2021 16:03-0400 Systolic blood pressure 137 mm[Hg] Mi Nurse Work Phone: [facility] Encounters Encounter Date Encounter Type Care Provider Facility Start: 12-02-2024 End: 12-02-2024 Follow-up encounter Natalia Monge [employer] FACTORY WORKER.INSOLVENCY CONSULTANT Work Phone: [facility] Start: 12-02-2024 ambulatory [facility] Facility:[facility] Start: 12-02-2024 ambulatory [facility] Facility:[facility] Start: 12-01-2024 End: 12-01-2024 ambulatory [facility] Facility:[facility] Start: 11-25-2024 End: 11-27-[address] Eugenio Peralta MD Work Phone: -Cardiac Rehab Start: 11-25-2024 End: 11-27-[address] He Musa MD -Cardiac Rehab Work Phone: Start: 11-01-2024 End: 11-01-[address] Eugenio Peralta MD Work Phone: -Cardiac Rehab Start: 11-01-2024 End: 11-01-[address] He Musa MD -Cardiac Rehab Work Phone: Start: 11-01-2024 End: 11-01-2024 ambulatory He Osmanori Facility:[facility] Start: 10-26-2024 ambulatory [facility] Facility :[facility] Start: 10-26-2024 End: 10-26-2024 Subsequent hospital visit by physician Xr [facility] Work Phone: Radiology Comment on above: Aspiration pneumonia due to gastric secretions, unspecified laterality, unspecified part of lung (HCC) [J69.0] Start: 10-26-2024 End: 10-26-2024 Patient encounter procedure Eugenio Peralta MD Work Phone: [facility] Comment on above: 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 Eugenio Peralta MD Work Phone: -[facility] Start: 2024 End: 2024 Telephone encounter Elaina Farias APRN - [facility] Work Phone: [facility] Comment on above: Other ([place] [facility] arge phone call ) Start: 10-08-2024 End: 10-08-2024 ambulatory UNKNOWN PROVIDER Facility:[facility] Start: 10-08-2024 End: 10-11-2024 Evaluation and management of inpatient Ameya Stewart MD Work Phone: [facility] Cardiac Thoracic Vascular Intensive Care Unit CTV ICU T1 Comment on above: Cardiac arrest (HCC) (Primary Dx); S/P drug eluting coronary stent placement Start: 10-08-2024 ambulatory Eve Rowley Facility:[facility] Start: 10-08-2024 Non-patient / Non-visit Dr. Eve wong MD -[facility] Work Phone: Start: 10-08-2024 End: 10-08-2024 Evaluation and management of inpatient Dr. Mehnaz Gonzalez DO Intensive Care Unit Work Phone: Start: 10-08-2024 Non-patient / Non-visit Dr. Harvey [facility] Work Phone: Start: 10-08-2024 Evaluation and manag ement of inpatient Dr. Dylan Soni DO -Intensive Care Unit Work Phone: Start: 10-08-2024 ambulatory Dylan Soni Fac ility:[facility] Start: 08-27-2024 End: 08-29-2024 Refill Eugenio Peralta MD Work Phone: [facility] Comment on above: Refill Request Start: 04-28-2024 End: 04-28-2024 ambulatory José Miguel Lambert Facility:[facility] Start: 03-14-2024 End: 03-14-2024 ambulatory EUGENIO PERALTA Facility:[facility] Start: 03-14-2024 End: 03-14-2024 Patient encounter procedure Eugenio Peralta MD Work Phone: [facility] Comment on above: Primary hypertension (Primary Dx) Start: 02-22-2024 End: 02-22-2024 ambulatory [facility] Facility:[facility] Start: 02-22-2024 End: 02-22-2024 Subsequent hospital visit by physician Lou [facility] Work Phone: Radiology Comment on above: Acute pain of right knee [M25.561] Start: 02-22-2024 End: 02-22-2024 Office outpatient visit 25 minutes Lola Farris APRN.INSOLVENCY CONSULTANT Work Phone: [facility] Comment on above: Primary hypertension (Primary Dx); Acute pain of right knee Start: 02-22-2024 End: 02-22-2024 ambulatory [facility] Facility:[facility] Start: 02-11-2024 ambulatory [facility] Facility:[facility] Start: 02-11-2024 End: 02-11-2024 ambulatory [facility] Facility:[facility] Start: 01-27-2024 End: 01-27-2024 ambulatory [facility] Facility:[facility] Start: 01-08-2024 End: 01-11-2024 MC Get Medical Advice Tiffani Gant [employer] FACTORY WORKER.INSOLVENCY CONSULTANT Work Phone: OB/Gynecology Comment on above: Med order to [facility] Start: 01-07-2024 End: 01-07-2024 Patient encounter procedure Tiffani Gant NATAILA.INSOLVENCY CONSULTANT Work Phone: OB/Gynecology Comment on above: Encounter for gyneco logical examination (general) (routine) without abnormal findings (Primary Dx); Encounter for screening mammogram for breast cancer; Postmenopausal atrophic vaginitis; Screening for malignant neoplasm of cervix; Encounter for screening for human papillomavirus (HPV) Start: 01-07-2024 End: 01-07-2024 Patient encounter status Tiffani Gant NATALIA.INSOLVENCY CONSULTANT Work Phone: [facility] Start: 01-07-2024 End: 01-07-2024 ambulatory TIFFANI HOSKINSCALF Facility:[facility] Start: 01-07-2024 End: 01-07-2024 Subsequent hospital visit by physician Screen Mammo [facility] Comment on above: Encounter for screen ing mammogram for malignant neoplasm of breast [Z12.31] Start: 12-30-2023 End: 12-30-2023 ambulatory [facility] Nurse Amaral Work Phone: [facility] Start: 12-30-2023 End: 12-30-2023 Patient encounter procedure [facility] Nurse [facility] Work Phone: [facility] Start: 12-24-2023 End: 12-24-2023 Office outpatient visit 15 minutes Natalia Monge APRN.CNP Work Phone: [facility] Comment on above: Sinus congestion (Pr imary Dx); Elevated blood pressure reading without diagnosis of hypertension Start: 12-24-2023 End: 12-24-2023 ambulatory NATALIA MONGE Facility:[facility] Start: 12-22-2023 End: 12-22-2023 Telephone encounter Natalia Monge APRN.CNP Work Phone: [facility] [place] Comment on above: Appointment; Patient Update Start: 12-14-2023 End: 12-14-2023 Jessica Hughes PA-C Work Phone: [facility] [place] Comment on above: Refill Request Start: 12-03-2023 End: 12-03-2023 Patient encounter procedure Mayra Lan PA-C Work Phone: [facility] Comment on above: Contact dermatitis, unspecified contact dermatitis type, unspecified trigger (Primary Dx) Start: 11-25-2023 End: 11-25-2023 ambulatory Eugenio Peralta MD Work Phone: [facility] Comment on above: RSV vaccination Start: 10-26-2023 End: 10-26-2023 Patient encounter procedure Eugenio Peralta MD Work Phone: [facility] Comment on above: Mixed hyperlipidemia (Primary Dx); Chronic kidney disease, stage 3a (HCC); Screening for depression; Encounter for screening examination for other mental health and behavioral disorders Start: 08-26-2023 ambulatory Tiffani Gant APRN.CNP Work Phone: OB/Gynecology Comment on above: Mammogram Start: 08-01-2023 End: 08-01-2023 Patient encounter procedure Enmanuel Macias MD Work Phone: [facility] Comment on above: Rib pain on left shanita e (Primary Dx) Start: 06-13-2023 ambulatory Eugenio Peralta MD Work Phone: [facility] Comment on above: Sucralfate Start: 05-26-2023 End: 05-26-2023 Patient encounter procedure Lexy Rivas DO Work Phone: Vascular Surgery Comment on above: Symptomatic varicose veins of both lower extremities (Primary Dx) Start: 03-31-2023 End: 03-31-2023 Subsequent hospital visit by physician Xr [facility] [place] Work Phone: Radiology Comment on above: URI, acute [J06.9] Start: 02-23-2023 ambulatory Harry Baugh Work Phone: [facility] Comment on above: Orthotics Start: 02-17-2023 End: 02-17-2023 Patient encounter procedure Lexy Rivas DO Work Phone: Vascular Surgery Comment on above: Symptomatic varicose veins of both lower extremities Start: 02-10-2023 End: 02-10-2023 ambulatory Reji Sylvia PT Work Phone: [facility] Comment on above: Arthritis of right s acroiliac joint (Primary Dx) Start: 02-04-2023 End: 02-04-2023 ambulatory Harry Golias PT Work Phone: [facility] Comment on above: Plantar fasciitis (P rimary Dx); Flat feet, bilateral Start: 01-27-2023 End: 01-27-2023 ambulatory Reji Sylvia PT Work Phone: [facility] Comment on above: Arthritis of right s acroiliac joint (Primary Dx) Start: 01-19-2023 End: 01-19-2023 ambulatory Harry Golias PT Work Phone: [facility] Comment on above: Plantar fasciitis; Flat feet, bilateral Start: 01-13-2023 End: 01-13-2023 ambulatory Reji Sylvia PT Work Phone: [facility] Comment on above: Arthritis of right s acroiliac joint (Primary Dx) Start: 01-10-2023 End: 01-10-2023 ambulatory Immunization Clinic Nurse [place] Work Phone: [facility] Start: 01-06-2023 Documentation procedure Mammog deven Coordinator [facility] Start: 01-06-2023 Letter encounter Mammography Coordinator [facility] Department Start: 01-06-2023 Telephone encounter Eugenio Peralta MD Work Phone: [facility] Comment on above: Consult Start: 01-05-2023 End: 01-05-2023 Subsequent hospital visit by physician Screen Mammo [facility] Comment on above: Encounter for screen ing mammogram for malignant neoplasm of breast [Z12.31] Start: 12-18-2022 End: 12-18-2022 Patient encounter procedure Ameya Ramachandran Work Phone: Podiatry Comment on above: Plantar fasciitis (P rimary Dx); Pes planus of both feet Start: 12-16-2022 End: 12-16-2022 ambulatory Reji Sylvia PT Work Phone: [facility] Comment on above: Arthritis of right s acroiliac joint (Primary Dx) Start: 12-16-2022 End: 12-16-2022 Subsequent hospital visit by physician Xr [facility] [place] Work Phone: Radiology Comment on above: Pain [R52] Start: 12-12-2022 End: 12-12-2022 ambulatory Reji Sylvia PT Work Phone: [facility] Comment on above: Arthritis of right s acroiliac joint (Primary Dx) Start: 12-04-2022 End: 12-04-2022 ambulatory Reji Sylvia PT Work Phone: [facility] Comment on above: Arthritis of right s acroiliac joint (Primary Dx) Start: 12-03-2022 ambulatory Mavis Tucker on PA-C Work Phone: [facility] Comment on above: AAA Screening Start: 12-03-2022 End: 12-03-2022 Subsequent hospital visit by physician Bone Density [facility] Work Phone: Radiology Comment on above: Asymptomatic postmen opausal state [Z78.0] Start: 12-03-2022 End: 12-03-2022 Subsequent hospital visit by physician Us [facility] [employer] 2 Work Phone: Radiology Comment on above: Pulsatile abdomen [R 19.8] Start: 11-26-2022 Orders Only Ameya nolan Work Phone: Appointment Center Comment on above: Pain (Primary Dx) Start: 11-24-2022 ambulatory No Pcp [employer] WORKER Shani C godfrey [place] Start: 11-19-2022 Telephone encounter Eugenio Peralta MD Work Phone: [facility] Comment on above: Orders Start: 11-14-2022 End: 11-14-2022 Subsequent hospital visit by physician Xr [facility] [place] Work Phone: Radiology Comment on above: Arthritis of right s acroiliac joint [M47.818] Start: 11-14-2022 End: 11-14-2022 Patient encounter procedure Mavis Ko Hughes PA-C Work Phone: [facility] [place] Comment on above: Essential hypertensi on (Primary [...] D level; Chronic kidney disease, stage 3a ([facility]); Medicare annual wellness visit, subsequent; Wellness examination Start: 11-14-2022 End: 11-14-2022 Patient encounter status Mavis Ko Hughes PA-C Work Phone: [facility] Work Phone: Start: 11-01-2022 End: 11-01-2022 Patient encounter procedure Johanne Santos APRN.CNP Work Phone: [facility] Comment on above: Sore throat (Primary Dx); [...] 10-21-2022 Subsequent hospital visit by physician Lou [facility] [place] Work Phone: Radiology Comment on above: Hand [...] Telephone encounter Mavis Hughes PA-C Work Phone: [facility] [place] Comment on above: Referral Request Start: 05-26-2022 Telephone encounter Tiffani Frank carter [employer] FACTORY WORKER.INSOLVENCY CONSULTANT Work Phone: OB/Gynecology Comment on above: Orders Start: 05-12-2022 Telephone encounter Mavis Hughes PA-C Work Phone: [facility] [place] Comment on above: Patient Question Start: 05-12-2022 End: 05-12-2022 Nursing evaluation of patient and report Mi Nurse Work Phone: [facility] Comment on above: Need for vaccination (Primary Dx) Start: 02-17-2022 End: 02-17-2022 Subsequent hospital visit by physician Xr [facility] [place] Work Phone: Radiology Comment on above: Sinobronchitis [J32. 9, J40] Start: 02-17-2022 End: 02-17-2022 Office outpatient visit 15 minutes Lola Farris APRN.INSOLVENCY CONSULTANT Work Phone: [facility] Comment on above: Sinobronchitis (Prim alisia Dx) Start: 02-13-2022 End: 02-13-2022 Patient encounter procedure Alberto Le APRN.INSOLVENCY CONSULTANT Work Phone: [facility] Comment on above: URI, acute (Primary Dx); Sore throat Start: 01-27-2022 Refill Mavis Ko parham PA-C Work Phone: [facility] [place] Comment on above: Refill Request Start: 01-03-2022 Documentation procedure Mammog deven Coordinator [facility] Start: 01-03-2022 Letter encounter Mammography Coordinator [facility] Department Start: 01-02-2022 End: 01-02-2022 Subsequent hospital visit by physician Screen Mammo [facility] Comment on above: Encounter for screen ing mammogram for malignant neoplasm of breast [Z12.31] Start: 01-02-2022 End: 01-02-2022 Patient encounter procedure Tiffani Gant NATALIA.INSOLVENCY CONSULTANT Work Phone: OB/Gynecology Comment on above: Encounter for gyneco logical examination (general) (routine) without abnormal findings (Primary Dx); Encounter for screening mammogram for breast cancer; Postmenopausal atrophic vaginitis; Lichen sclerosus Start: 01-02-2022 End: 01-02-2022 Patient encounter status Tiffani Gant [employer] FA[employer]ORY WORKER.INSOLVENCY CONSULTANT Work Phone: OB/Gynecology Start: 12-17-2021 End: 12-17-2021 Nursing evaluation of patient and report Mi Nurse Work Phone: [facility] [place] Comment on above: Essential hypertensi on (Primary Dx) Start: 12-10-2021 Telephone encounter Sharon bundy APRN.INSOLVENCY CONSULTANT Work Phone: OB/Gynecology Comment on above: Orders Start: 11-18-2021 ambulatory M Ko Tucker on PA-C Work Phone: [facility] [place] Comment on above: Tetanus Booster Start: 11-15-2021 End: 11-15-2021 Nursing evaluation of patient and report Mi Nurse Work Phone: [facility] Comment on above: Need for vaccination (Primary Dx) Start: 11-01-2021 End: 11-01-2021 Patient encounter procedure Eugenio Peralta MD Work Phone: [facility] [place] Comment on above: Need for COVID-19 va ccine (Primary Dx) Start: 05-16-2020 End: 05-16-2020 Patient encounter procedure EUGENIO Bundy AMANDA [facility] Start: 04-20-2020 End: 04-20-2020 Patient encounter procedure [facility] Procedures Date Procedure Procedure Detail Performing Clinician Start: 12-01-2024 Lipid 1996 panel - Serum or Plasma Marla Monge APRN.INSOLVENCY CONSULTANT Work Phone: Start: 10-26-2024 Radiologic exam chest 2 views Eugenio Peralta MD Work Phone: Start: 10-11-2024 Ecg routine ecg w/least 12 lds trcg only w/o i&r Kezai Hernandez DO Work Phone: Start: 10-11-2024 Comprehensive metabolic panel Susan Encarnacion MD Work Phone: Start: 10-10-2024 TTE w or wo fol wcon,Doppler Kezia Calhoun jose DO Work Phone: Start: 10-10-2024 OXYGEN THERAPY Ameya Stewart MD Work Phone: Start: 10-10-2024 Ecg routine ecg w/least 12 lds trcg only w/o i&r Kezia David DO Work Phone: Start: 10-10-2024 Comprehensive metabolic panel Kezia multani DO Work Phone: Start: 10-09-2024 OXYGEN THERAPY Ameya Stewart MD Work Phone: Start: 10-09-2024 OXYGEN THERAPY Ameya Stewart MD Work Phone: Start: 10-09-2024 Ecg routine ecg w/least 12 lds trcg only w/o i&r Keziazonia Hernandez DO Work Phone: Start: 10-09-2024 OXYGEN THERAPY Ameya Stewart MD Work Phone: Start: 10-09-2024 Creatine kinase total Kezia Bhandarium DO Work Phone: Start: 10-09-2024 Comprehensive metabolic panel Jorge A Flores DO Work Phone: Start: 10-08-2024 Respiratory pathogens DNA and RNA panel - Lower respiratory specimen by GUSTAVO with non-probe detection Keziazonia Hernandez DO Work Phone: Start: 10-08-2024 Smr prim src gram/giemsa stain bct fungi/cell Keziajb Hernandez DO Work Phone: Start: 10-08-2024 EXTUBATION Kezia Hernandez DO Work Phone: Start: 10-08-2024 OXYGEN THERAPY Kezia Hernandez DO Work Phone: Start: 10-08-2024 End: 10-08-2024 Bacteria identified in Blood by Culture Kezia Hernandez DO Work Phone: Start: 10-08-2024 Blood gases any combination ph pco2 po2 co2 hco3 Kezia Hernandez DO Work Phone: Start: 10-08-2024 Radiologic exam chest single view Raymond Hernandez DO Work Phone: Start: 10-08-2024 End: 10-08-2024 Iadna s aureus methicillin resist amp probe tq Kezia Hernandez DO Work Phone: Start: 10-08-2024 Respiratory pathogens DNA and RNA panel - Nasopharynx by GUSTAVO with non-probe detection Kezia Hernandez DO Work Phone: Start: 10-08-2024 LEGIONELLA AND STREPTOCOCCUS URINE ANTIGEN, ORDERABLE Kezia Hernandez DO Work Phone: Start: 10-08-2024 URINE HOLD CUP Kezia Hernandez DO Work Phone: Start: 10-08-2024 Ecg routine ecg w/least 12 lds trcg only w/o i&r Kezia Hernandez DO Work Phone: Start: 10-08-2024 Comprehensive metabolic panel Kezia multani DO Work Phone: Start: 10-08-2024 Lipid panel Kezia Hernandez DO Work Phone: Start: 10-08-[address] Eugenio Peralta MD Work Phone: Start: 10-08-[address] Eugenio Barragan Work Phone: Start: 10-08-[address] Kem Peralta MD Work Phone: Start: 10-08-2024 Plain chest X-ray Dr. Eugenio Peralta MD Work Phone: Start: 10-08-2024 Plain X-ray abdomen Dr. Eugenio Peralta MD Work Phone: Start: 10-08-2024 Carbon dioxide measurement, partial pressure Dr. Eugenio Peralta MD Work Phone: Start: 10-08-2024 Gases blood o2 saturation only direct [place] Dr. Eugenio Peralta MD Work Phone: Start: 10-08-2024 Measurement of partial pressure of oxygen in blood Dr. Eugenio Peralta MD Work Phone: Start: 10-08-2024 Coagulation time, activated Dr. Eugenio Peralta MD Work Phone: Start: 10-08-[address] Rosas Peralta MD Work Phone: Start: 10-08-2024 Lipid 1996 panel - Serum or Plasma Alayna Stewart MD Work Phone: Start: 01-07-2024 End: 01-07-2024 Screening digital breast tomosynthesis bi Tiffani York [employer] FACTORY WORKER.INSOLVENCY CONSULTANT Work Phone: Start: 12-30-2023 PFIZER-BIONTECH COVID-19 VACCINE AGE 12+ YR (COMIRNATY) Eugenio Peralta MD Work Phone: Start: 10-26-2023 Adult depression screening assessment Eugenio Peralta MD Work Phone: Start: 10-20-2023 Lipid 1996 panel - Serum or Plasma Rosas Peralta MD Work Phone: Start: 03-31-2023 Radiologic exam chest 2 views Daisy howard [employer] FACTORY WORKER.INSOLVENCY CONSULTANT Work Phone: Start: 01-10-2023 PFIZER-BIONTECH COVID-19 VACCINE (2022- SEASON) AGE 12+ YR Mehnaz Wong MD Work Phone: Start: 01-10-2023 INFLUENZA VACCINE, PRSV FREE, AGE 65+ YR, HIGH DOSE, QUADRIVALENT (FLUZONE HIGH-DOSE) Mehnaz Wong MD Work Phone: Start: 01-05-2023 Screening digital breast tomosynthesis bi Tiffani York [employer] FACTORY WORKER.INSOLVENCY CONSULTANT Work Phone: Start: 12-16-2022 Radex foot complete minimum 3 views Huseyin Ramachandran Work Phone: Start: 12-03-2022 Dxa bone density study 1/> sites axial skel Mavis Ko Hughes PA-C Work Phone: Start: 12-03-2022 Us abdominal aorta real time screen study aaa Mavis Ko AYOUB-Joseph Work Phone: Start: 11-15-2022 Lipid 1996 panel - Serum or Plasma Reji Ward PT Work Phone: Start: 11-14-2022 Radex spine lumbosacral 2/3 views Mavis Tolbert keagan AYOUB-C Work Phone: Start: 11-01-2022 STREP A MOLECULAR (POC) Johanne Santos APRN. INSOLVENCY CONSULTANT Work Phone: Start: 10-21-2022 Radex hand minimum 3 views Aury Hylton Work Phone: Start: 10-20-2022 Level iv surg pathology gross&microscopic exam Eriberto Disla MD Work Phone: Start: 10-20-2022 Esophagogastroduodenoscopy transoral diagnostic Crystal Pastrana PA-C Work Phone: Start: 05-12-2022 PFIZER-BIONTECH COVID-19 BIVALENT BOOSTER VACCINE, AGE 12+ YR Mavis Ko Hughes PA-C Work Phone: Start: 02-17-2022 Radiologic exam chest 2 views Lola barry APRN.INSOLVENCY CONSULTANT Work Phone: Start: 02-13-2022 STREP A MOLECULAR [...] 10-05-2017 Colonoscopy Eugenio Peralta MD Work Phone: History of placement of stent for coronary artery disease S/P drug eluting coronary stent placement Ameya Stewart MD Work Phone: History of placement of stent for coronary artery disease S/P drug eluting coronary stent placement Ameya Stewart MD Work Phone: History of placement of stent for coronary artery disease S/P right coronary artery (RCA) stent placement Eugenio Peralta MD Work Phone: Plan of Treatment Date Care Activity Detail Author Start: 12-01-2029 Lipid panel Lipid Screening [facility] Start: 10-08-2029 Lipid panel [facility] Start: 10-19-2028 Lipid panel Lipid Screening [facility] Start: 10-06-2028 DTaP/Tdap/Td Vaccine s (3 - Td or Tdap) DTaP/Tdap/Td Vaccines (3 - Td or Tdap) [facility] Start: 10-06-2028 Urine microalbumin profile [facility] Start: 11-16-2027 Lipid 1996 panel - S oumou or Plasma Lipid Screening [facility] Start: 11-16-2027 Lipid panel Lipid Screening [facility] Start: 11-16-2027 LIPID SCREEN LIPID SCREEN [facility] Start: 2027 Diabetes Screening Diabetes Screenin [facility] Start: 10-09-2027 Diabetes mellitus screening Diabetes Screening [facility] Start: 10-06-2027 Colonoscopy COLONOSCOPY [facility] Start: 10-06-2027 COLORECTAL CANCER SCREENING COLORECTAL CANCER SCREENING [facility] Start: 10-06-2027 Screening for malign ant neoplasm of colon [facility] Start: 11-13-2026 LIPID SCREEN LIPID SCREEN [facility] Start: 10-19-2026 Diabetes Screening Diabetes Screenin g [facility] Start: 11-15-2025 DIABETES SCREEN DIABETES SCREEN [facility] Start: 11-15-2025 Diabetes Screening Diabetes Screenin g [facility] Start: 10-26-2025 Annual PCP Team Rn Corrections rocco Disease Visit Annual PCP Team Chronic Disease Visit [facility] Start: 10-11-2025 Creatinine measurement [facility] Start: 10-11-2025 Potassium measurement Potassium Leve l [facility] Start: 10-10-2025 Echocardiography Echocardiogram [facility] Start: 10-08-2025 Diabetes mellitus screening Diabetes Screening [facility] Start: 03-14-2025 Annual PCP Team Rn Corrections rocco Disease Visit Annual PCP Team Chronic Disease Visit [facility] Start: 03-14-2025 BP Controlled (<130/80) BP Controlle d (<130/80) [facility] Start: 02-21-2025 Annual PCP Team Rn Corrections rocco Disease Visit Annual PCP Team Chronic Disease Visit [facility] Start: 01-12-2025 LIPID SCREEN LIPID SCREEN [facility] Start: 01-09-2025 End: 01-09-2025 Patient encounter procedure 01/09/2025 11:30 AM EDT Office Visit OB/Gynecology [address] [place] [address] Tiffani Gant APRN.INSOLVENCY CONSULTANT [address] [place] [address] Annual OB/Gynecology Comment on above: Annual Start: 01-09-2025 End: 01-09-2025 Patient encounter procedure Mammogram Comment on above: Encounter for gyneco logical examination (general) (routine) without abnormal findings [Z01.419]; Encounter for screening mammogram for breast cancer [Z12.31] Annual Start: 01-06-2025 Screening for malign ant neoplasm of breast [facility] Start: 12-23-2024 End: 12-23-2024 Patient encounter procedure 12/23/2024 11:40 AM EDT Office Visit Family [facility] [address] [place] [address] Eugenio Peralta MD [address] [place] [address] 8 week follow up Family [facility] Comment on above: 8 week follow up Start: 12-02-2024 Annual PCP Team Rn Corrections rocco Disease Visit Annual PCP Team Chronic Disease Visit [facility] Start: 11-28-2024 Influenza vaccination Influenza Vacc ine (#1) [facility] Start: 11-13-2024 DIABETES SCREEN DIABETES SCREEN [facility] Start: 11-01-2024 Patient referral to dietitian [facility] Start: 10-26-2024 End: 10-26-2024 Patient encounter procedure 10/26/2024 10:40 AM EDT Office Visit [facility] [place] [address] [facility] [place] [address] Eugenio Peralta MD [address] [facility] [address] physical [facility] [place] Comment on above: physical Start: 10-25-2024 Annual PCP Team Rn Corrections rocco Disease Visit Annual PCP Team Chronic Disease Visit [facility] Start: 10-25-2024 Anxiety Screening Anxiety Screening [facility] Start: 10-25-2024 Covid-19 Vaccine () Covid-19 Vaccine () [facility] Comment on above: Postponed from 05/13 (Declined at this time) Start: 10-25-2024 Depression Screening Depression Scre ing [facility] Start: 10-25-2024 RSV Vaccine (1 - 1-d ose 60+ series) RSV Vaccine (1 - 1-dose 60+ series) [facility] Comment on above: Postponed from 10/11 (Declined at this time) Start: 10-19-2024 Creatinine measurement Serum Creatin ine [facility] Start: 10-10-2024 Cardiac rehabilitati on - phase 1 [facility] Start: 10-10-2024 Cardiac rehabilitati on - phase 2 [facility] Start: 10-09-2024 Complete blood count [facility] Start: 10-08-2024 Bacteria identified in Blood by Culture [facility] Start: 10-08-2024 Respiratory Culture Respiratory Cult ure [facility] Start: 10-08-2024 [facility] Start: 10-08-2024 Creatine kinase [Enz ymatic activity/volume] in Serum or Plasma [facility] Start: 10-08-2024 Triglycerides measurement [facility] Start: 10-08-2024 Assessment of risk o f venous thromboembolism [facility] Start: 10-08-2024 Continuous pulse oximetry [facility] Start: 10-08-2024 Insertion of cathete r into peripheral vein [facility] Start: 10-08-2024 Measuring intake and output [facility] Start: 10-08-2024 Oxygen therapy [facility] Start: 10-08-2024 Providing care accor ding to standard [facility] Start: 10-08-2024 Referral to occupati onal therapist [facility] Start: 10-08-2024 Referral to service [facility] Start: 10-08-2024 Vital signs measurements [facility] Start: 10-08-2024 [facility] Start: 10-08-2024 Airway suction technique [facility] Start: 10-08-2024 Admission procedure [facility] Start: 10-08-2024 Following clinical p athway protocol [facility] Start: 10-08-2024 [facility] Start: 10-08-2024 Hospital admission, emergency, from emergency room, medical nature [facility] Start: 10-08-2024 [facility] Start: 10-08-2024 Patient discharge [facility] Start: 10-08-2024 [facility] Start: 06-29-2024 Covid-19 Vaccine () Covid-19 Vaccine () [facility] Start: 04-21-2024 Annual PCP Team Rn Corrections rocco Disease Visit Annual PCP Team Chronic Disease Visit [facility] Start: 03-30-2024 Advance Directive Discussion Advance Directive Discussion [facility] Start: 03-30-2024 Medicare Advantage A nnual Wellness Visit Medicare Advantage Annual Wellness Visit [facility] Start: 03-21-2024 End: 03-21-2024 Patient encounter procedure 03/21/2024 10:00 AM EST Office Visit [facility] [place] [address] [place], [place] [id number] Lola Farris APRN.INSOLVENCY CONSULTANT [address] [place] [address] 1 month BP check [facility] [place] Comment on above: 1 month BP check Start: 01-07-2024 End: 01-07-2024 Patient encounter procedure Mammogram Comment on above: Encounter for screen ing mammogram for malignant neoplasm of breast [Z12.31] annual Start: 01-06-2024 Mammography Mammogram Screening [facility] Start: 01-06-2024 Screening for malign ant neoplasm of breast Mammogram Screening [facility] Start: 12-30-2023 End: 12-30-2023 Patient encounter procedure 12/30/2023 1:40 PM EDT Immunization [facility] [place] [address] [place], [place] [address] [place], Immunization Clinic Nurse [address] [place], [place] [address] Want Covid & flu vaccinations Family [facility] Comment on above: Want Covid & flu vac cinations Start: 12-29-2023 Covid-19 Vaccine ( season) Covid-19 Vaccine () [facility] Comment on above: Postponed from 11/28 (Currently Scheduled) Start: 12-29-2023 Influenza vaccination Influenza Vacc ine (#1) [facility] Comment on above: Postponed from 11/28 (Currently Scheduled) Start: 12-24-2023 End: 12-24-2023 Patient encounter procedure 12/24/2023 2:00 PM EDT Office Visit [facility] [address] [place], [place] [address] Natalia Monge APRN.INSOLVENCY CONSULTANT [address] [place], [place] [id number] BP check, and check Pts BP cuff. See TE 12/22/23. [facility] [place] Comment on above: BP check, and check Pts BP cuff. See TE 12/22/23. Start: 11-29-2023 Covid-19 Vaccine ( season) Covid-19 Vaccine ( season) [facility] Start: 11-29-2023 Covid-19 Vaccine ( season) Covid-19 Vaccine ( season) [facility] Start: 11-29-2023 Influenza vaccination Influenza Vacc ine (#1) [facility] Start: 11-16-2023 Creatinine measurement Serum Creatin ine [facility] Start: 11-16-2023 SERUM CREATININE SERUM CREATININE Cl [facility] Start: 11-15-2023 ANNUAL PCP TEAM GAUGE MACHINE OPERATOR ROCCO DISEASE VISIT ANNUAL PCP TEAM CHRONIC DISEASE VISIT [facility] Start: 11-15-2023 COVID-19 VACCINE (6 - Pfizer series) COVID-19 VACCINE (6 - Pfizer series) [facility] Comment on above: Postponed from 09/09 (Declined at this time) Start: 10-26-2023 End: 10-26-2023 Patient encounter procedure 10/26/2023 11:00 AM EDT Office Visit [facility] [address] [place] [id number] Eugenio Peralta MD [address] [place] [id number] well visit [facility] Comment on above: well visit Start: 07-27-2023 DIABETES SCREEN DIABETES SCREEN [facility] Start: 05-13-2023 Covid-19 Vaccine () Covid-19 Vaccine () [facility] Start: 03-30-2023 Advance Directive Discussion Advance Directive Discussion [facility] Start: 03-30-2023 Behavioral Health Screening Behavioral Health Screening [facility] Start: 03-30-2023 Depression Assessment Depression Ass essment [facility] Start: 02-17-2023 COVID-19 VACCINE (5 - Booster for Pfizer series) COVID-19 VACCINE (5 - Booster for Pfizer series) [facility] Comment on above: Postponed from 12/27 (Declined at this time) Start: 01-02-2023 Mammography [facility] Start: 11-28-2022 Covid-19 Vaccine () Covid-19 Vaccine () [facility] Start: 11-28-2022 Influenza vaccination C [facility] Start: 11-14-2022 End: 01-14-2023 25-hydroxyvitamin D3 [Mass/volume] in Serum or Plasma VITAMIN D 25 HYDROXY Lab Routine Low vitamin D level Expected: 11/14/2022, Expires: 01/14/2023 [facility] Work Phone: Comment on above: Expected: 11/14/2022 , Expires: 01/14/2023 Start: 11-14-2022 End: 01-14-2023 CBC W Auto Differential panel - Blood CBC + DIFF Lab Routine Essential hypertension Expected: 11/14/2022, Expires: 01/14/2023 [facility] Work Phone: Comment on above: Expected: 11/14/2022 , Expires: 01/14/2023 Start: 11-14-2022 End: 01-14-2023 Comprehensive metabolic 2000 panel - Serum or Plasma COMP METABOLIC PANEL Lab Routine Essential hypertension Expected: 11/14/2022, Expires: 01/14/2023 [facility] Work Phone: Comment on above: Expected: 11/14/2022 , Expires: 01/14/2023 Start: 11-14-2022 End: 01-14-2023 Lipid 1996 panel - Serum or Plasma LIPID PANEL BASIC Lab Routine Low HDL (under 40) Expected: 11/14/2022, Expires: 01/14/2023 [facility] Work Phone: Comment on above: Expected: 11/14/2022 , Expires: 01/14/2023 Start: 11-14-2022 End: 01-14-2023 Magnesium [Mass/volume] in Serum or Plasma MAGNESIUM BLD Lab Routine Current use of proton pump inhibitor Expected: 11/14/2022, Expires: 01/14/2023 [facility] Work Phone: Comment on above: Expected: 11/14/2022 , Expires: 01/14/2023 Start: 11-13-2022 HEMOGLOBIN/HEMATOCRIT HEMOGLOBIN/HEM ATOCRIT [facility] Start: 11-13-2022 SERUM CREATININE SERUM CREATININE Cl [facility] Start: 11-12-2022 Adult depression scr eening assessment DEPRESSION SCREENING [facility] Start: 11-12-2022 ANNUAL PCP TEAM GAUGE MACHINE OPERATOR ROCCO DISEASE VISIT ANNUAL PCP TEAM CHRONIC DISEASE VISIT [facility] Start: 11-01-2022 ANNUAL PCP TEAM GAUGE MACHINE OPERATOR ROCCO DISEASE VISIT ANNUAL PCP TEAM CHRONIC DISEASE VISIT [facility] Start: 09-09-2022 COVID-19 VACCINE (6 - Pfizer series) COVID-19 VACCINE (6 - Pfizer series) [facility] Start: 03-30-2022 ADVANCE DIRECTIVE DISCUSSION ADVANCE DIRECTIVE DISCUSSION [facility] Start: 03-30-2022 DEPRESSION ASSESSMENT DEPRESSION ASS ESSMENT [facility] Start: 12-27-2021 COVID-19 VACCINE (5 - Booster for Pfizer series) COVID-19 VACCINE (5 - Booster for Pfizer series) [facility] Start: 11-28-2021 Influenza vaccination INFLUENZA (#1) [facility] Start: 11-16-2021 Mammography MAMMOGRAM [facility] Start: 11-12-2021 PNEUMOCOCCAL: 65+ (2 - PCV) PNEUMOCOCCAL: 65+ (2 - PCV) [facility] Start: 07-24-2021 Adult depression scr eening assessment DEPRESSION SCREENING [facility] Start: 03-30-2021 ADVANCE DIRECTIVE DISCUSSION ADVANCE DIRECTIVE DISCUSSION [facility] Start: 03-30-2021 DEPRESSION ASSESSMENT DEPRESSION ASS ESSMENT [facility] Start: 01-12-2021 HEMOGLOBIN/HEMATOCRIT HEMOGLOBIN/HEM ATOCRIT [facility] Start: 01-12-2021 SERUM CREATININE SERUM CREATININE Cl [facility] Start: 10-08-2016 FECAL OCCULT BLOOD FECAL OCCULT BLOO D [facility] Start: 10-08-2016 Screening for malign ant neoplasm of colon Fecal Occult Blood [facility] Start: 2015 RSV Vaccine (1 - 1-d ose 60+ series) RSV Vaccine (1 - 1-dose 60+ series) [facility] Start: 10-11-2000 COLOGUARD (FIT-DNA) COLOGUARD (FIT-D NA) [facility] Start: 10-11-[address] COLONOGRAPHY [facility] Start: 10-11-2000 Screening for malign ant neoplasm of colon [facility] Start: 10-11-2000 SIGMOIDOSCOPY SIGMOIDOSCOPY [facility] Start: 10-11-1973 BP Controlled (<130/80) BP Controlle d (<130/80) [facility] Start: 10-11-1973 Hepatitis C screening Hepatitis C Sc [facility] Start: 1967 Depression Screening Depression Scre ening [facility] Start: 1955 Screening for malign ant neoplasm of colon [facility] ALERE STREP A TEST (AG) ALERE ST REP A TEST (AG) Lab Routine Sore throat Ordered: 02/13/2022 [facility] Work Phone: Comment on above: Ordered: 02/13/2022 Bacteria identified in Lower respiratory specimen by Aerobe culture Respiratory culture and Stain Microbiology Routine 10/08/2024 10:04 PM EDT [facility] Bacteria identified in Sputum by Respiratory culture [facility] Bicarbonate measurement [facility] Carbon dioxide [Part ial pressure] in Blood [facility] Carbon dioxide galo nt measurement [facility] End: 09-24-2024 DBT Breast - bilateral screening ELLIOT SCREENING W [facility] Radiology Routine Encounter for screening mammogram for malignant neoplasm of breast 1 Occurrences starting 08/27/2023 until 09/24/2024 [facility] Work Phone: Comment on above: 1 Occurrences starti ng 08/27/2023 until 09/24/2024 End: 02-05-2025 DBT Breast - bilateral screening ELLIOT SCREENING [facility] Radiology Routine Encounter for gynecological examination (general) (routine) without abnormal findings Encounter for screening mammogram for breast cancer 1 Occurrences starting 01/07/2024 until 02/05/2025 [facility] Work Phone: Comment on above: 1 Occurrences starti ng 01/07/2024 until 02/05/2025 [employer], blood [facility] End: 12-14-2023 DXA-AXIAL SKELETON DXA-AXIAL SKELETON Radiology Routine Asymptomatic postmenopausal state 1 Occurrences starting 11/14/2022 until 12/14/2023 [facility] Work Phone: Comment on above: 1 Occurrences starti ng 11/14/2022 until 12/14/2023 ECG 12 lead ECG 12 lead CV E CG Routine 10/11/2024 6:25 AM EDT [facility] Influenza virus A an d B RNA and SARS-CoV-2 (COVID-19) N gene panel - Respiratory specimen by GUSTAVO with probe detection COVID WITH FLUA+B, ROUTINE Microbiology Routine URI, acute Ordered: 02/13/2022 [facility] Work Phone: Comment on above: Ordered: 02/13/2022 End: 06-25-2023 ELLIOT SCREENING W [facility] ELLIOT SCREENING W [facility] Radiology Routine Encounter for screening mammogram for malignant neoplasm of breast Dense breast tissue 1 Occurrences starting 05/26/2022 until 06/25/2023 [facility] Work Phone: Comment on above: 1 Occurrences starti ng 05/26/2022 until 06/25/2023 Oxygen [Partial pres sure] in Blood [facility] Oxygen saturation measurement [facility] PAP TEST PAP TEST Lab [facility] Screening for malignant neoplasm of cervix Encounter for screening for human papillomavirus (HPV) 01/07/2024 11:26 AM EDT [facility] Unspecified specimen W [facility] End: 12-14-2023 Radex spine lumbosacral 2/3 views XR LUMBAR GENERAL 3V AP/LAT/L5-S1 Radiology Routine Arthritis of right sacroiliac joint Lumbosacral pain 1 Occurrences starting 11/14/2022 until 12/14/2023 [facility] Work Phone: Comment on above: 1 Occurrences starti ng 11/14/2022 until 12/14/2023 Radex spine lumbosac ral 2/3 views XR LUMBAR GENERAL 3V AP/LAT/L5-S1 Radiology Routine Arthritis of right sacroiliac joint Lumbosacral pain 11/14/2022 11:42 AM EDT [facility] Work Phone: End: 01-09-2023 Screening mammography bi 2-view breast inc cad ELLIOT SCREENING Radiology Routine Encounter for screening mammogram for malignant neoplasm of breast 1 Occurrences starting 12/10/2021 until 01/09/2023 [facility] Work Phone: Comment on above: 1 Occurrences starti ng 12/10/2021 until 01/09/2023 End: 02-01-2023 Screening mammography bi 2-view breast inc cad ELLIOT SCREENING Radiology Routine Postmenopausal atrophic vaginitis 1 Occurrences starting 01/02/2022 until 02/01/2023 [facility] Work Phone: Comment on above: 1 Occurrences starti ng 01/02/2022 until 02/01/2023 End: 01-02-2022 Screening mammography bi 2-view breast inc cad [facility] Work Phone: Comment on above: 1 Occurrences starti ng 01/02/2022 until 01/02/2022 End: 10-08-2024 Serial Troponin, High Sensitivity Serial Troponin, High Sensitivity Lab STAT STAT (Lab) for 1 Occurrences starting 10/08/2024 until 10/08/2024 [facility] Work Phone: Comment on above: STAT (Lab) for 1 Occ urrences starting 10/08/2024 until 10/08/2024 Troponin T.cardiac [Mass/volume] in Serum or Plasma by High sensitivity method [facility] Troponin T.cardiac [Mass/volume] in Serum or Plasma by High sensitivity method [facility] End: 12-14-2023 Us abdominal aorta real time screen study aaa US SCREENING FOR AAA Radiology Routine Pulsatile abdomen 1 Occurrences starting 11/14/2022 until 12/14/2023 [facility] Work Phone: Comment on above: 1 Occurrences starti ng 11/14/2022 until 12/14/2023 End: 02-18-2024 US VENOUS INCOMPETENCY [facility] US VENOUS INCOMPETENCY [facility] Vascular Lab Routine Symptomatic varicose veins of both lower extremities 1 Occurrences starting 02/17/2023 until 02/18/2024 [facility] Work Phone: Comment on above: 1 Occurrences starti ng 02/17/2023 until 02/18/2024 End: 12-26-2023 XR FOOT GENERAL 3V AP/LAT/OBL BILATERAL XR FOOT GENERAL 3V AP/LAT/OBL BILATERAL Radiology Routine Pain 1 Occurrences starting 11/26/2022 until 12/26/2023 [facility] Work Phone: Comment on above: 1 Occurrences starti ng 11/26/2022 until 12/26/2023 End: 03-23-2025 XR Knee - right 4 Views XR KNEE GENERAL 4V AP BOTH/PA BOTH/LAT/MERC RIGHT Radiology Routine Acute pain of right knee 1 Occurrences starting 02/22/2024 until 03/23/2025 [facility] Work Phone: Comment on above: 1 Occurrences starti ng 02/22/2024 until 03/23/2025 XR Knee - right 4 Views XR KNEE GENERAL 4V AP BOTH/PA BOTH/LAT/MERC RIGHT Radiology Routine Acute pain of right knee 02/22/2024 12:47 PM EST [facility] Immunizations Immunization Date Immunization Notes Care Provider Debbie chen 12-30-2023 COVID-19 vaccine, ag e 12+ yr (PFIZER-BIONTECH COMIRNATY) Immunization [facility] Work Phone: [facility] 12-30-2023 influenza, high dose seasonal, preservative-free Immunization [place] Work Phone: [facility] 12-30-2023 influenza virus vaccine, unspecified formulation Ameya Stewart MD Work Phone: [facility] 11-25-2023 respiratory syncytia l virus (RSV) vaccine, adjuvanted (AREXVY) Eugenio Peralta MD Work Phone: [facility] 01-10-2023 COVID-19 vaccine, ag e 12+ yr, season (PFIZER-BIONTECH) Immunization [place] Work Phone: [facility] Work Phone: 01-10-2023 influenza (HD-IIV4) vaccine, age 65+ yr, high dose, quadrivalent, PF (FLUZONE HIGH-DOSE) Immunization [place] Work Phone: [facility] 01-10-2023 influenza virus vaccine, unspecified formulation Eugenio Peralta MD Work Phone: [facility] 05-12-2022 COVID-19 booster vaccine, age 12+ yr, bivalent (PFIZER-BIONTECH) Mi Nurse Work Phone: [facility] Work Phone: 12-28-2021 influenza, high-dose , quadrivalent vaccine (FLUZONE HIGH DOSE QUADRIVALENT) Tiffani Gant APRN.INSOLVENCY CONSULTANT Work Phone: [facility] 12-28-2021 influenza virus vaccine, unspecified formulation Reji Ward PT Work Phone: [facility] 11-15-2021 pneumococcal (PCV20) vaccine, 20 valent (PREVNAR 20) Mi Nurse Work Phone: [facility] Work Phone: 11-01-2021 COVID-19 vaccine, ag e 12+ yr (PFIZER-BIONTECH - HOANG TOP) Eugenio Peralta MD Work Phone: [facility] 03-05-2021 COVID-19 vaccine, ag e 12+ yr (PFIZER-BIONTECH - PURPLE TOP) Eugenio Peralta MD Work Phone: [facility] 12-29-2020 influenza, high-dose , quadrivalent vaccine (FLUZONE HIGH DOSE QUADRIVALENT) Eugenio Peralta MD Work Phone: [facility] Work Phone: 11-12-2020 pneumococcal polysaccharide vaccine, 23 valent Eugenio Peralta MD Work Phone: [facility] Work Phone: 05-16-2020 COVID-19 vaccine, ag e 12+ yr (PFIZER-BIONTECH - PURPLE TOP) Eugenio Peralta MD Work Phone: [facility] 04-20-2020 COVID-19 vaccine, ag e 12+ yr (PFIZER-BIONTECH - PURPLE TOP) Eugenio Peralta MD Work Phone: [facility] 12-30-2019 influenza, injectabl e, quadrivalent, contains preservative Eugenio Peralta MD Work Phone: [facility] Work Phone: 01-22-2019 influenza, injectabl e, quadrivalent, contains preservative Eugenio Peralta MD Work Phone: [facility] 12-10-2018 zoster vaccine recombinant Eugenio Peralta MD Work Phone: [facility] Work Phone: 10-06-2018 tetanus toxoid, redu priya diphtheria toxoid, and acellular pertussis vaccine, adsorbed Eugenio Peralta MD Work Phone: [facility] 10-06-2018 zoster vaccine recombinant Eugenio Peralta MD Work Phone: [facility] 01-09-2018 influenza, injectabl e, quadrivalent, contains preservative Eugenio Peralta MD Work Phone: [facility] 01-03-2017 influenza, injectabl e, quadrivalent, contains preservative Eugenio Peralta MD Work Phone: [facility] 01-04-2016 influenza, injectabl e, quadrivalent, contains preservative Eugenio Peralta MD Work Phone: [facility] Work Phone: 12-30-2014 influenza, injectabl e, quadrivalent, contains preservative Eugenio Peralta MD Work Phone: [facility] Work Phone: 02-15-2014 influenza, seasonal, injectable Eugenio Peralta MD Work Phone: [facility] 07-27-2013 zoster vaccine, live Eugenio Peralta MD Work Phone: [facility] Work Phone: 01-29-2012 influenza virus vaccine, unspecified formulation Eugenio Peralta MD Work Phone: [facility] 03-27-2009 novel [id number], preservative-free, injectable Eugenio Peralta MD Work Phone: [facility] 10-09-2008 tetanus toxoid, redu priya diphtheria toxoid, and acellular pertussis vaccine, adsorbed Eugenio Peralta MD Work Phone: [facility] Work Phone: 01-24-2006 influenza virus vaccine, unspecified formulation Eugenio Peralta MD Work Phone: [facility] Payers Date Payer Category Payer Medicare HMO MMO MEDICARE ADV ANTAGE Member Subscriber Plan / Payer (Effective 2024-Present) Name: Lucas Astudillo Relation to Subscriber: Self Name: Lucas Astudillo Payer ID: Not on file Type: Medicare HMO Address: [address] [place] [id number] 2024 Self-pay 2020 Medicare MMO MEDICARE MMO MEDADVANTAGE HMO [id number] 2020- [phone] [address] [place] [id number] [place], [place] [address]O [id number] 2020 Medicare MMO MEDICARE MMO MEDADVANTAGE HMO [id number] 2020-Present [phone] [address] [place] [id number] O [id number] 2020 Medicare (Managed Care) MMO MEDADVANTAGE HMO Member Subscriber Plan / Payer (Effective 2020-Present) Name: Lucas Astudillo A Relation to Subscriber: Self Name: Lucas Astudillo A Payer ID: Not on file Type: HMO Address: [address] [place] [id number] 2020 Medicare [id number] 1955 Unknown [id number] Unknown [id number] Unknown [id number] Unknown [id number] Unknown [id number] Unknown [id number] Unknown [id number] Unknown [id number] Unknown [id number] Unknown [id number] Unknown [id number] Unknown [id number] Unknown [id number] Unknown [id number] Social History Date Type Detail Facility Start: 03-06-2011 End: 01-02-2022 Tobacco smoking status [facility] Never smoked tobacco [facility] Work Phone: Start: 11-16-2020 End: 10-26-2024 Alcohol intake Current non-drinker of alcohol (finding) [facility] Start: 07-24-2020 End: 11-12-2021 History SDOH Alcohol Frequency 1 [facility] Start: 07-24-2020 End: 11-12-2021 History SDOH Social Connections Phone 2 [facility] Start: 07-24-2020 End: 11-12-2021 History SDOH Social Connections [facility] 98 [facility] Start: 07-24-2020 End: 11-12-2021 History SDOH Social Connections Living 3 [facility] Start: 07-24-2020 End: 11-12-2021 History SDOH Financial 5 [facility] Start: 1955 Sex Assigned At Female C [facility] Start: 10-18-2021 End: 02-17-2022 Exposure to SARS-CoV-2 (event) Not sure [facility] Start: 03-06-2011 End: 01-02-2022 Tobacco use and exposure Smokeless tobacco non-user [facility] Start: 11-12-2021 History SDOH Alcohol Std Drinks 0 [facility] Start: 11-12-2021 History SDOH Social Connections Phone 4 [facility] Start: 11-12-2021 End: 10-28-2022 History of Social function [facility] Start: 11-12-2021 End: 10-28-2022 Social connection and isolation panel [facility] Start: 02-29-2012 How often do you att end yarsani or scientology services? Patient refused [facility] Are you now , , , , never or living with a partner? [facility] How often to you hav e a drink containing alcohol? Never [facility] Do you feel stress - tense, restless, nervous, or anxious, or unable to sleep at night because your mind is troubled all the time - these days [OSQ] Only a little [facility] (I/We) worried awilda er (my/our) food would run out before (I/we) got money to buy more. Never true [facility] In the past 12 month s, was there a time when you were not able to pay the mortgage or rent on time? No [facility] Start: 12-28-2020 Gender identity Identifies as female gender (finding) [facility] Start: 12-28-2020 Sexual orientation Heterosexual (fin ding) [facility] Do you feel stress - tense, restless, nervous, or anxious, or unable to sleep at night because your mind is troubled all the time - these days [OSQ] Not at all [facility] Start: 05-24-2019 Alcohol Alcohol [place] [facility] Start: 05-24-2019 Lives Lives [facility] Tobacco smoking stat [facility] Tobacco smoking consumption unknown [facility] Start: 10-08-2024 Sex Female (finding) [facility] Medical Equipment Procedure Code Equipment Code Equipment Origin al Text Equipment Identifier Dates Drug-eluting coronary artery stent, [id number] [id number]-coated ()[id number] FDA Start: 10-08-2024 Drug-eluting coronary artery stent, [id number] lymer-coated ()[id number] FDA Start: 10-08-2024 Goals Date Patient Goal Desired Activity /State Functional Status Date Assessment Result Facility 10-08-2024 Functional status Bedrest [facility] Work Phone: 10-28-2014 Are you deaf, or do you have serious difficulty hearing No 10/28/2014 8:00 AM Shanta Goddard MA No [facility] 10-28-2014 Are you blind, or do you have serious difficulty seeing, even when wearing glasses No 10/28/2014 8:00 AM Shanta Goddard MA No [facility] 10-28-2014 Do you have serious difficulty walking or climbing stairs No 10/28/2014 8:00 AM Shanta Goddard MA No [facility] 10-28-2014 Do you have difficul ty dressing or bathing No 10/28/2014 8:00 AM Shanta Goddard MA No [facility] 10-28-2014 Because of a physica l, mental, or emotional condition, do you have difficulty doing errands alone such as visiting a physician's office or shopping No 10/28/2014 8:00 AM Shanta Goddard MA No [facility] Mental Status Date Assessment Result Facility 10-08-2024 Cognitive function Voice/Name [facility] Work Phone: 10-08-2024 Cognitive function Demonstrates ability to follow instructions/comprehend [facility] Work Phone: 10-08-2024 Cognitive function Voice/Name [facility] Work Phone: 10-28-2014 Because of a physica l, mental, or emotional condition, do you have serious difficulty concentrating, remembering, or making decisions No 10/28/2014 8:00 AM EDT Shanta Cohen MA No [facility] Clinical Notes 07-25-2013 to 12-02-2024 Telephone Encounter - Celia Rider MA - 12/02/2024 1:28 PM EDTTelephone Encounter - Celia Rider MA - 12/02/2024 1:28 PM EDTTelephone Encounter - Celia Rider MA - 12/02/2024 1:28 PM EDT Note Date & Type Note Facility 12-02-2024 Telephone encounter Note Patient read mychart result note [facility] 12-02-2024 Telephone encounter Note ----- Message from Natalia A Dynamicsan sent at 12/02/2024 1:01 PM EDT ----- Cholesterol is ok. HDL is low. You can increase your protection from heart disease by adding in purple grape juice, nuts or peanut butter, and whole grains. Liver function normal. ----- Message ----- From: Lab, Background User Sent: 12/01/2024 10:16 PM EDT To: Eugenio Peralta MD [facility] 12-02-2024 Miscellaneous Notes Patient read mychart result note ----- Message from Natalia A Suppan sent at 12/02/2024 1:01 PM EDT ----- Cholesterol is ok. HDL is low. You can increase your protection from heart disease by adding in purple grape juice, nuts or peanut butter, and whole grains. Liver function normal. ----- Message ----- From: Lab, Background User Sent: 12/01/2024 10:16 PM EDT To: Eugenio Peralta MD Cholesterol is ok. HDL is low. You can increase your protection from heart disease by adding in purple grape juice, nuts or peanut butter, and whole grains. Liver function normal. documented in this encounter [facility] 12-02-2024 Progress note Formatting of t his note might be different from the original. Cholesterol is ok. HDL is low. You can increase your protection from heart disease by adding in purple grape juice, nuts or peanut butter, and whole grains. Liver function normal. [facility] Work Phone: 10-26-2024 Note HNO ID: [id number] Author: EUGENIO PERALTA MD Service: ? Author Type: Physician Type: Progress Notes Filed: 10/26/2024 12:03 Note Text: Lucas Astudillo is a 69-year-old female with a history of CAD, presenting for follow-up after a recent STEMI and hospitalization. HPI STEMI: - Admitted on 10/08 at [facility] for STEMI, CHF, ischemic cardiomyopathy, and possible shock. - Experienced chest pain for 2 days prior to admission, initially attributed to acid reflux. - Cardiac cath revealed 100% blockage of the mid-RCA; drug-eluting stent placed with good results. - No significant disease in remaining coronary arteries. - Developed fever and hypotension post-procedure; EF was 20%. - Transferred to [facility] for further management. - Extubated at [facility]; experienced hemoptysis post-extubation. - Discharged on Augmentin, Brilinta, aspirin, metoprolol, and rosuvastatin. - Scheduled for cardiac rehab on the . - Family history of heart disease. - Reports brief episodes of dizziness. - Experiencing some emotional distress and irritability post-event. Aspiration Pneumonia: - Developed significant secretions and low pulse ox during initial hospitalization; intubated and placed on a ventilator. - Treated with IV antibiotics for suspected aspiration pneumonia. - Completed course of Augmentin at home. - Reports improvement in cough, which was present before the event. MEDICATIONS: Current Outpatient Medications Medication Sig losartan (COZAAR) 25 mg tablet Take 25 mg by mouth once daily. metoprolol succinate ER (TOPROL XL) 50 mg 24 hr tablet Take 50 mg by mouth once daily. rosuvastatin (CRESTOR) 40 mg tablet Take 40 mg by mouth once daily. ticagrelor (BRILINTA) 90 mg tablet Take 90 mg by mouth two times a day. aspirin, enteric coated (ASPIRIN, ENTERIC COATED) 81 mg EC tablet Take 81 mg by mouth once daily. pantoprazole DR (PROTONIX) 40 mg tablet Take [...] to affected area two times a day. tiZANidine (ZANAFLEX) 4 mg tablet Take 1 [...] and social history today. REVIEW OF SYSTEMS Constitutional: (+) decreased appetite Cardiovascular: (-) peripheral edema Respiratory: (+) cough, (-) dyspnea Musculoskeletal: (+) chest wall pain Neurological: (+) dizziness Psychiatric: (+) depressed mood, (+) irritability HEALTH MAINTENANCE: Reviewed health maintenance issues today and recommended the following in detail. Advance Directive Discussion due on 03/30/2024 Medicare Advantage Annual Wellness Visit due on 03/30/2024 Depression (more content not included)... [facility] 10-26-2024 History of Presen t illness Narrative Lucas Astudillo is a 69-year-old female with a history of CAD, presenting for follow-up after a recent STEMI and hospitalization. HPI STEMI: - Admitted on 10/08 at [facility] for STEMI, CHF, ischemic cardiomyopathy, and possible shock. - Experienced chest pain for 2 days prior to admission, initially attributed to acid reflux. - Cardiac cath revealed 100% blockage of the mid-RCA; drug-eluting stent placed with good results. - No significant disease in remaining coronary arteries. - Developed fever and hypotension post-procedure; EF was 20%. - Transferred to [facility] for further management. - Extubated at [facility]; experienced hemoptysis post-extubation. - Discharged on Augmentin, Brilinta, aspirin, metoprolol, and rosuvastatin. - Scheduled for cardiac rehab on the . - Family history of heart disease. - Reports brief episodes of dizziness. - Experiencing some emotional distress and irritability post-event. Aspiration Pneumonia: - Developed significant secretions and low pulse ox during initial hospitalization; intubated and placed on a ventilator. - Treated with IV antibiotics for suspected aspiration pneumonia. - Completed course of Augmentin at home. - Reports improvement in cough, which was present before the event. MEDICATIONS: Current Outpatient Medications Medication Sig losartan (COZAAR) 25 mg tablet Take 25 mg by mouth once daily. metoprolol succinate ER (TOPROL XL) 50 mg 24 hr tablet Take 50 mg by mouth once daily. rosuvastatin (CRESTOR) 40 mg tablet Take 40 mg by mouth once daily. ticagrelor (BRILINTA) 90 mg tablet Take 90 mg by mouth two times a day. aspirin, enteric coated (ASPIRIN, ENTERIC COATED) 81 mg EC tablet Take 81 mg by mouth once daily. pantoprazole DR (PROTONIX) 40 mg tablet Take [...] to affected area two times a day. tiZANidine (ZANAFLEX) 4 mg tablet Take 1 [...] cancerous cells in uterus per Sharon Ellis, INSOLVENCY CONSULTANT other (hysterectomy) Sister half-sister; unknown etiology Diabetes [...] and social history today. REVIEW OF SYSTEMS Constitutional: (+) decreased appetite Cardiovascular: (-) peripheral edema Respiratory: (+) cough, (-) dyspnea Musculoskeletal: (+) chest wall pain Neurological: (+) dizziness Psychiatric: (+) depressed mood, (+) irritability HEALTH MAINTENANCE: Reviewed health maintenance issues today and recommended the following in detail. Advance Directive Discussion due on 03/30/2024 Medicare Advantage Annual Wellness Visit due on 03/30/2024 Depression Screening due on 10/25/2024 Anxiety Screening due on 10/25/2024 Mammogram Screening due on 01/06/2025 LAB REVIEWED: Labs: (no date) Lipid Panel: - Total cholesterol: 127 mg/dL - LDL: 50 mg/dL - HDL: Low Tests: (10/08) Cardiac Catheterization: 100% occlusion of the mid right coronary artery with drug-eluting stent placement; no significant disease in remaining vessels. Imaging: (no date) Echocardiogram: Ejection fraction 42%. (no date) Echocardiogram: Ejection fraction 20%. VITALS: BP 102/70 Pulse 62 Wt 84.6 kg (186 lb 6.4 oz) LMP 09/17/2008 SpO2 94% BMI 30.06 kg/m Last 4 Encounter Wt Readings: Date: Wt: 10/26/2024 84.6 kg (186 lb 6.4 oz) 03/14/2024 87.4 kg (192 lb 10.9 oz) 01/07/2024 86.4 kg (190 lb 6.4 oz) 12/24/2023 88.9 kg (195 lb 15.8 oz) PHYSICAL EXAMINATION: GENERAL: NAD, alert and oriented. SKIN: Unremarkable, no rash or skin lesions. HEAD: Normocephalic. NECK: Supple, no lymphadenopathy, normal thyroid, no carotid bruits. LUNGS: Clear to auscultation bilaterally, no wheezes/rhonchi/rales. HEART: Regular rate and rhythm, no murmurs. No ectopy. EXTREMITIES: Normal, no deformities, no skin discoloration, no edema. NEURO: Awake, alert and oriented x3, cranial nerves II-XII grossly intact, normal gait, no involuntary motions. ASSESSMENT AND PLAN 1. ST elevation myocardial infarction involving right coronary artery (HCC) (I21.11) 2. S/P right coronary artery (RCA) stent placement (Z95.5) 3. Ischemic cardiomyopathy (I25.5) 4. Shock (HCC) (R57.9) 5. Hx of cardiac arrest (Z86.74) - Recent STEMI with 100% mid-RCA occlusion; drug-eluting stent placed with good results; no significant disease in remaining coronary arteries. - Developed VTach during cath, cardioverted to sinus tachycardia; required intubation and ventilatory support. - Echocardiogram showed EF 20% post-WA; subsequent echo showed improvement to EF 42%; next echo scheduled in 8 weeks. - Continue Brilinta and aspirin for at least 1 year post-stent placement; discussed rationale and importance of adherence. - Continue metoprolol to decrease cardiac workload and support recovery. - Advised to avoid overexertion and follow cardiac rehab guidance. - Educated on importance of seeking immediate care for chest pain, worsening dyspnea, or edema. - Follow-up in 8 weeks after next echo. 6. Mixed hyperlipidemia (E78.2) - Continue rosuvastatin as prescribed. - Lipid panel to be checked in 8 weeks. 7. Aspiration pneumonia due to gastric secretions, unspecified laterality, unspecified part of lung (HCC) (J69.0) - Treated with Augmentin, now completed. - Cough improving; no current fever, chills, or dyspnea. - Order chest X-ray to confirm resolution. (See patient after visit summary for additional instructions to patient) Eugenio Peralta MD Recording using [employer] software for draft documentation of the visit was discussed with the patient/authorized national sales representative; all questions welcomed and answered. Patient/authorized national sales representative agreed to proceed documented in this encounter [facility] 10-26-2024 History of Presen t illness Narrative Radiology Service Progress Note PATIENT NAME: Lucas Astudillo DATE OF SERVICE: October 26, 2024 TIME: 11:40 AM PATIENT IDENTITY VERIFICATION COMPLETED USING TWO (2) IDENTIFIERS: Name and Date of confirmed by patient verbally. FALL SCREENING: Has the patient had 2 falls in the last year or 1 fall with injury or currently using an Ambulatory Assistive Device (Walker, Cane, Wheelchair, Crutches, etc.)? No PATIENT GENDER DATA: Assigned female at . status: : No status: NO. PATIENT RELEVANT IMPLANT DATA REVIEWED: Yes PATIENT PRESENTS WITH AN IMPLANTABLE OR ATTACHED BLADE BENDER FURNACE TENDER: No RADIOLOGY DEPARTMENT: General X-ray: Exam(s) Completed: Chest X-Ray PERIPHERAL IV DATA: Not applicable SIGNED BY: RT April(R) October 26, 2024 11:40 AM documented in this encounter [facility] 10-26-2024 Note HNO ID: [id number] Author: IVANA WELLINGTON RT(Rj) Service: ? Author Type: Basketball Referee Type: Progress Notes Filed: 10/26/2024 11:49 Note Text: Radiology Service Progress Note PATIENT NAME: Lucas Astudillo DATE OF SERVICE: October 26, 2024 TIME: 11:40 AM PATIENT IDENTITY VERIFICATION COMPLETED USING TWO (2) IDENTIFIERS: Name and Date of confirmed by patient verbally. FALL SCREENING: Has the patient had 2 falls in the last year or 1 fall with injury or currently using an Ambulatory Assistive Device (Walker, Cane, Wheelchair, Crutches, etc.)? No PATIENT GENDER DATA: Assigned female at . status: : No status: NO. PATIENT RELEVANT IMPLANT DATA REVIEWED: Yes PATIENT PRESENTS WITH AN IMPLANTABLE OR ATTACHED BLADE BENDER FURNACE TENDER: No RADIOLOGY DEPARTMENT: General X-ray: Exam(s) Completed: Chest X-Ray PERIPHERAL IV DATA: Not applicable SIGNED BY: Ivana Wellington, RT(R) October 26, 2024 11:40 AM [facility] 10-26-2024 Instructions Eugenio Peralta MD - 10/26/2024 11:29 AM EDT - Continue taking aspirin and Brilinta (ticagrelor) daily for one year to help keep your stent open. - Continue metoprolol as prescribed to reduce your heart s workload and support recovery. - Continue rosuvastatin daily to lower your cholesterol and stabilize plaque. - Repeat a chest x-ray today to confirm your lungs are clear and check for any rib fractures. - Attend your cardiac rehabilitation initial consultation on the and follow their program to gradually rebuild strength. - Maintain gentle walking (you re averaging ~6,000 steps) but avoid overdoing it until rehab guidance; aim for early-morning or late-evening walks in cooler, less humid conditions. - Watch for any return of chest pain, worsening shortness of breath, or new leg swelling--seek emergency care or notify the office right away if these occur. - Plan to return for a follow-up visit in about 8 weeks, after your next appointment with [facility], to review progress and adjust your care as needed. - If you experience ongoing emotional distress or increased irritability, let us know so we can offer additional support. documented in this encounter [facility] 2024 Telephone encounter Note PC to patient, she notes she's just tired. She didn't sleep well last night after reading some of her reports. She denies chest pain. She does note an annoying dry cough, she is finishing a course of antibiotics but noted since her PCP put her on lisinopril she has had a dry cough despite OTC measures. We will discontinue lisinopril and start losartan 25mg daily. We reviewed the importance of uninterrupted DAPT. She will f/u with cardiology in [place] as scheduled 10/20/24. She will call our office sooner if needed. [facility] 2024 Miscellaneous Notes PC to patient, she notes she's just tired. She didn't sleep well last night after reading some of her reports. She denies chest pain. She does note an annoying dry cough, she is finishing a course of antibiotics but noted since her PCP put her on lisinopril she has had a dry cough despite OTC measures. We will discontinue lisinopril and start losartan 25mg daily. We reviewed the importance of uninterrupted DAPT. She will f/u with cardiology in [place] as scheduled 10/20/24. She will call our office sooner if needed. documented in this encounter [facility] 10-11-2024 Note Attestation signed by Marimar Vaughn MD at 10/11/2024 3:04 PM I, Dr. Vaughn saw and evaluated the patient on 10/11/2024. I personally obtained the lam and critical portions of the history and physical exam. I reviewed the chart and discussed the patient with the resident. I agree with the resident's medical decision making. Please refer to my attestation to the progress note from the same day for further details. Greater than 30 minutes spent on the discharge planning of the patient. Portions of the information within this encounter were entered using an electronic dictation system. Best attempts were made to proofread the information prior to note completion. Despite the review of the information, some errors may remain. If there are questions related to the information contained within the note please contact the signing provider directly. Marimar Vaughn MD, [facility], [facility] Gunnery/Ordnance Officer [facility] [place] [address] [place] [address] [address] [place] [address] p [phone] f [phone] [email or web address] [facility] [place] [facility] Discharge Summary Name: Lucas Astudillo Date of : 1955 Date of Admission: 10/08/2024 Date of Discharge: 10/11/2024 Discharge Attending: Vladimir Poon DO Primary Care Provider: Eugenio Peralta MD Type of Admission: Admission Code Status: Full Code Reason for Admission Cardiac arrest Discharge Diagnoses: STEMI s/p PCI to RCA Cardiogenic shock due to VT/WA Acute hypoxic respiratory failure with plash pulmonary edema Aspiration Pneumonia Acute HFrEF HTN HLD Medical History[1] Surgical History[2] Family History[3] Social History[4] Hospital Course Mr. Mar is a 68 years old female with past medical history of hypertension hyperlipidemia initially presented to [facility] with acute chest pain and was found to have inferior STEMI. She went through the [employer] and was found to have mid RCA occlusion, 2 JACINTA stent was placed. Patient developed several episodes of VT prompted CPR and defibrillation. It was noted that she had pulmonary edema and aspiration pneumonia. Patient was on pressor, intubated and transferred to [facility] on October 08. On presentation her hemodynamics stable, pressor was weaned off, extubated, admitted to CCU Inferior STEMI complicated by VT in the setting of ischemia and acute respiratory failure requiring intubation, antibiotic for aspiration pneumonia. Patient recovered well, endorsed some chest pain likely due to CPR was later on resolved. Patient is discharged today in stable condition with cardiology follow-up appointment Consultants: IP CONSULT TO WOUND PREVENTION Procedures: no Last diet during hospitalization: Adult diet Regular Recommended at discharge: Normal Activity May return to work in 5 days. Disposition: Home Condition at Discharge: good Followup Testing/ Instructions: cardiology follow up Facility/Home Care Agency: NONE Pending Results: none No future appointments. Discharge Plan Medication List START taking these medications amoxicillin-clavulanate 875-125 MG tablet Commonly known as: Augmentin Take 1 tablet by mouth every 12 hours for 9 doses. aspirin 81 MG EC tablet Take 1 tablet (81 mg) by mouth daily. Start taking on: 2024 metoprolol succinate XL 50 MG 24 hr tablet Commonly known as: Toprol-XL Take 1 tablet (50 mg) by mouth daily. Do not crush or chew. Start taking on: 2024 rosuvastatin 40 MG tablet Commonly known as: Crestor Take 1 tablet (40 mg) by mouth Nightly. ticagrelor 90 MG tablet Commonly known as: Brilinta Take 1 tablet (90 mg) by mouth 2 times daily. CHANGE how you take these medications lisinopril 10 MG tablet Take 1 tablet (10 mg) by mouth daily. Start taking on: 2024 What changed: when to take this pantoprazole 20 MG EC tablet Commonly known as: ProtoNix Take 1 tablet (20 mg) by mouth every morning (before breakfast). Do not crush, chew, or split. Start taking on: 2024 What changed: medication strength how much to take when to take this additional instructions Where to Get Your Medications These medications were sent to [facility] [address] [place] [address] Hours: Thursday to Thursday 10 am to 6 pm amoxicillin-clavulanate 875-125 MG tablet aspirin 81 MG EC tablet lisinopril 10 MG tablet metoprolol succinate XL 50 MG 24 hr tablet pantoprazole 20 MG EC tablet rosuvastatin 40 MG tablet ticagrelor 90 MG tablet Objective: Physical Exam: Vitals: BP 106/71 Pulse 64 (more content not included)... [facility] 10-11-2024 Hospital course Narrative Images from the original note were not included. [facility] [place] [facility] Discharge Summary Name: Lucas Astudillo Date of : 1955 Date of Admission: 10/08/2024 Date of Discharge: 10/11/2024 Discharge Attending: Vladimir Poon DO Primary Care Provider: Eugenio Peralta MD Type of Admission: Admission Code Status: Full Code Reason for Admission Cardiac arrest Discharge Diagnoses: STEMI s/p PCI to RCA Cardiogenic shock due to VT/WA Acute hypoxic respiratory failure with plash pulmonary edema Aspiration Pneumonia Acute HFrEF HTN HLD Medical History[1] Surgical History[2] Family History[3] Social History[4] Hospital Course Mr. Mar is a 68 years old female with past medical history of hypertension hyperlipidemia initially presented to [facility] with acute chest pain and was found to have inferior STEMI. She went through the [employer] and was found to have mid RCA occlusion, 2 JACINTA stent was placed. Patient developed several episodes of VT prompted CPR and defibrillation. It was noted that she had pulmonary edema and aspiration pneumonia. Patient was on pressor, intubated and transferred to [facility] on October 08. On presentation her hemodynamics stable, pressor was weaned off, extubated, admitted to CCU Inferior STEMI complicated by VT in the setting of ischemia and acute respiratory failure requiring intubation, antibiotic for aspiration pneumonia. Patient recovered well, endorsed some chest pain likely due to CPR was later on resolved. Patient is discharged today in stable condition with cardiology follow-up appointment Consultants: IP CONSULT TO WOUND PREVENTION Procedures: no Last diet during hospitalization: Adult diet Regular Recommended at discharge: Normal Activity May return to work in 5 days. Disposition: Home Condition at Discharge: good Followup Testing/ Instructions: cardiology follow up Facility/Home Care Agency: NONE Pending Results: none No future appointments. Discharge Plan Medication List START taking these medications amoxicillin-clavulanate 875-125 MG tablet Commonly known as: Augmentin Take 1 tablet by mouth every 12 hours for 9 doses. aspirin 81 MG EC tablet Take 1 tablet (81 mg) by mouth daily. Start taking on: 2024 metoprolol succinate XL 50 MG 24 hr tablet Commonly known as: Toprol-XL Take 1 tablet (50 mg) by mouth daily. Do not crush or chew. Start taking on: 2024 rosuvastatin 40 MG tablet Commonly known as: Crestor Take 1 tablet (40 mg) by mouth Nightly. ticagrelor 90 MG tablet Commonly known as: Brilinta Take 1 tablet (90 mg) by mouth 2 times daily. CHANGE how you take these medications lisinopril 10 MG tablet Take 1 tablet (10 mg) by mouth daily. Start taking on: 2024 What changed: when to take this pantoprazole 20 MG EC tablet Commonly known as: ProtoNix Take 1 tablet (20 mg) by mouth every morning (before breakfast). Do not crush, chew, or split. Start taking on: 2024 What changed: medication strength how much to take when to take this additional instructions Where to Get Your Medications These medications were sent to [facility] [address] [place] [address] Hours: Thursday to Thursday 10 am to 6 pm amoxicillin-clavulanate 875-125 MG tablet aspirin 81 MG EC tablet lisinopril 10 MG tablet metoprolol succinate XL 50 MG 24 hr tablet pantoprazole 20 MG EC tablet rosuvastatin 40 MG tablet ticagrelor 90 MG tablet Objective: Physical Exam: Vitals: BP 106/71 Pulse 64 Temp 37 C (98.6 F) (Temporal) Resp 22 Ht 1.702 m (5' 7) Wt 88 kg (194 lb) SpO2 94% BMI 30.38 kg/m Intake/Output Summary (Last 24 hours) at 10/11/2024 1443 Last data filed at 10/11/2024 1257 Gross per 24 hour Intake 960 ml Output 1900 ml Net -940 ml Admission weight: 89.7 kg (197 lb 12 oz) Last weight: Wt Readings from Last 1 Encounters: 10/11/24 88 kg (194 lb) Body mass index is 30.38 kg/m . BMI Classification: Obese (BMI 30.0-39.9) Physical Exam Constitutional: no distress. well nourished. well hydrated Psychiatric: A &O x 3. Medical insight NMT: Oral mucosa is pink and moist Neck: no JVD. Respiratory: Lungs are CLA Cardiac exam: Rhythm: NSR ; Normal S1 and S2 Murmur: no Other: No rub; no gallop Vasc: Peripheral pulses + Abdomen: soft Extremities: no LE edema Skin: Warm to touch and well perfused Laboratory Tests: NT-ProBNP level; last two recorded values, may include those outside this admission. Lab Results Component Value Date BNP 7,524 (H) 10/08/2024 Lab Results Component Value Date WBC 4.5 10/11/2024 HGB 10.7 (L) 10/11/2024 HCT 33.2 (L) 10/11/2024 MCV 91.2 10/11/2024 PLT 104 (L) 10/11/2024 Lab Results Component Value Date GLUCOSE 107 10/11/2024 CALCIUM 8.3 (L) 10/11/2024 NA 138 10/11/2024 K 3.7 10/11/2024 CO2 23 10/11/2024 CL 109 (H) 10/11/2024 BUN 17 10/11/2024 CREATININE 0.81 10/11/2024 Lab Results Component Value Date ALT 25 10/11/2024 AST 94 (H) 10/11/2024 ALKPHOS 51 10/11/2024 BILITOT 0.3 10/11/2024 National Registry/ Accreditation Requirements/ Other DC information. Quality Indicators if applicable. Quality Indicators for Acute WA / PCI: Guideline Directed Medical Therapy Aspirin: Yes P2Y12 Inhibitor: Yes High-Intensity Statin: Yes Beta Usman: Yes ANNIE-I/ARB/ARNI: Yes MRA: No, other: please specify: will add on outpatient follow up Smoking cessation counseling completed: Not applicable Benefits of Cardiac Rehab attendance discussed with patient. 72-hour follow up phone call requested: Yes Has LV evaluation been performed this admission? Yes EF BP Date Value Ref Range Status 10/10/2024 42 (A) 55 - 100 % Final STEMI follow up within 7 days, NSTEMI/PCI/ADHF follow up within 14 days. Must be scheduled prior to hospital discharge. Follow up appointment scheduled: Yes Patient and Family Counseling Addressed: Activity. Diet restrictions/heart healthy. Discharge medications and importance of cardiac medication compliance. Importance of follow-up with Cardiology. Recognition of the signs/symptoms of ACS and need to seek emergent care. Patient specific ACS risk factor modifications. Medications to avoid if diagnosed with ACS. If any questions, call: [facility] [phone] Total time Discharge activity. []30 min or less [x]Greater than 30 min Vladimir Poon DO Parts of this note may be generated using a voice recognition software program. Please excuse any student driving instructor errors that may have occurred. This note was electronically signed by Vladimir Poon DO on 10/11/24 [1] No past medical history on file. [2] No past surgical history on file. [3] No family history on file. [4] Cosigned by Marimar Vaughn MD at 10/11/2024 3:04 PM EDT Associated attestation - Marimar Vaughn MD - 10/11/2024 3:04 PM EDT I, Dr. Vaughn saw and evaluated the patient on 10/11/2024. I personally obtained the lam and critical portions of the history and physical exam. I reviewed the chart and discussed the patient with the resident. I agree with the resident's medical decision making. Please refer to my attestation to the progress note from the same day for further details. Greater than 30 minutes spent on the discharge planning of the patient. Portions of the information within this encounter were entered using an electronic dictation system. Best attempts were made to proofread the information prior to note completion. Despite the review of the information, some errors may remain. If there are questions related to the information contained within the note please contact the signing provider directly. Marimar Vaughn MD, [facility], [facility] Gunnery/Ordnance Officer [facility] [address] [place] [address] p [phone] f [phone] [email or web address] documented in this encounter [facility] 10-11-2024 History of Presen t illness Narrative Physician Response Please review the following and provide your response below. Please clarify which of the following accurately describes the patient's body habitus: Normal body habitus This documentation will become part of the patient's medical record. Physician Response Please review the following and provide your response below. Please clarify which of the following accurately describes the patient's CKD Stage: CKD Stage 2 (GFR 60-89) This documentation will become part of the patient's medical record. Images from the original note were not included. [facility] [place] [facility] CCU PROGRESS NOTE Patient Name: Lucas Astudillo : 1955 Subjective: 68F HTN, HLD, presents from [place] for post arrest mgmt. Initially presented for STEMI, had 3 VT arrest requiring CPR and defibrillation, intubation, CXR showed pulm edema, RCA stented. At [facility] pt needed pressors, was extubated, POCUS showed EF 30% with apical hypokinesis. Interval History: No acute event overnight, Denies chest pain, shortness of breath, headache Urine output 1650 ml Net negative 330ml Review of Systems: Review of Systems Constitutional: Negative. HENT: Negative. Eyes: Negative. Respiratory: Negative. Cardiovascular: Negative. Gastrointestinal: Negative. Endocrine: Negative. Genitourinary: Negative. Musculoskeletal: Negative. Neurological: Negative. Psychiatric/Behavioral: Negative. Inpatient Medications: Scheduled Meds:Scheduled Meds[1] Continuous Infusions:Continuous Meds[2] PRN Meds used in the last 24hr: none Objective: Physical Examination: BP 116/78 Pulse 93 Temp 36.8 C (98.2 F) (Temporal) Resp (!) 29 Ht 1.702 m (5' 7) Wt 88 kg (194 lb) SpO2 97% BMI 30.38 kg/m Intake/Output Summary (Last 24 hours) at 10/11/2024 0656 Last data filed at 10/11/2024 0604 Gross per 24 hour Intake 1320 ml Output 1650 ml Net -330 ml Physical Exam Constitutional: Appearance: Normal appearance. HENT: Head: Normocephalic. Nose: Nose normal. Cardiovascular: Rate and Rhythm: Regular rhythm. Pulmonary: Breath sounds: Normal breath sounds. Abdominal: Palpations: Abdomen is soft. Musculoskeletal: General: Normal range of motion. Cervical back: Normal range of motion. Neurological: General: No focal deficit present. Pertinent Labs: BMP: Lab Results Component Value Date NA 138 10/11/2024 K 3.7 10/11/2024 CL 109 (H) 10/11/2024 CO2 23 10/11/2024 BUN 17 10/11/2024 CREATININE 0.81 10/11/2024 GLUCOSE 107 10/11/2024 CALCIUM 8.3 (L) 10/11/2024 MG 2.1 10/11/2024 PHOS 3.3 10/11/2024 CBC: Lab Results Component Value Date WBC 4.5 10/11/2024 HGB 10.7 (L) 10/11/2024 HCT 33.2 (L) 10/11/2024 MCV 91.2 10/11/2024 PLT 104 (L) 10/11/2024 Cardiac profile: CK Date Value Ref Range Status 10/09/2024 1,333 (H) 30 - 185 U/L Final 10/09/2024 1,661 (H) 30 - 185 U/L Final 10/08/2024 2,002 (H) 30 - 185 U/L Final CKMB Date Value Ref Range Status 10/09/2024 90.0 (H) <=3.4 ng/mL Final 10/09/2024 110.2 (H) <=3.4 ng/mL Final Coagulation: No results found for: INR, PTT Lipid panel: Lab Results Component Value Date CHOL 127 10/08/2024 HDL 32 (L) 10/08/2024 TRIG 226 (H) 10/08/2024 Other: Lab Results Component Value Date HGBA1C 5.4 10/08/2024 TSH 0.77 10/10/2024 Chest Imaging: CXR: === 10/08/24 === XR CHEST 1 VIEW - Impression - 1. Left lung base small pleural effusion and/or atelectasis. 2. Pulmonary edema and/or infiltrates right lung. 3. Support devices, as above. Report Dictated on Electronically Signed By: Rhonda Carpio MD Electronically Signed Date/Time: 10/08/2024 8:06 PM EDT Cardiac Studies: Telemetry findings reviewed: NSR ECG: Encounter Date: 10/08/24 ECG 12 lead Result Value Heart Rate 69 QRSD Interval 96 QT Interval 450 QTC Interval 484 P Ruby 51 QRS Ruby -17 T Wave Ruby 258 AL Interval 186 Impression Sinus rhythm Inferior infarct, recent Abnrm T, consider ischemia, anterolateral lds Echo: 10/08/24 TRANSTHORACIC ECHOCARDIOGRAM (TTE) COMPLETE (CONTRAST/BUBBLE/3D PRN) 10/10/2024 1:12 PM (Final) Interpretation Summary Left Ventricle: Left ventricle is dilated. Mildly increased wall thickness. Mildly reduced left ventricular systolic function. EF by 2D Simpsons Biplane is 42%. Global longitudinal strain is reduced with a value of -11.4%. See diagram for wall motion findings. Grade I diastolic dysfunction with normal LAP. Echocardiographic features are suggestive of ischemic cardiomyopathy. Right Ventricle: Right ventricle size is normal. Normal systolic function. Tricuspid Valve: Est RA pressure is 8 mmHg. RVSP is 28 mmHg. Aorta: Normal sized sinuses of Valsalva. Mildly dilated ascending aorta. Ao ascending diameter is 3.8 cm. No significant valvular abnormalities. Signed by: Pranay Louise MD on 10/10/2024 1:12 PM Cath Report: No results found for this or any previous visit. Assessment/Plan HF NYHA Class [] I [] II [] III [] IV []Unable to assess [x] N/A -STEMI s/p PCI to RCA - DAPT with aspirin 81mg daily, brilinta 90mg - Crestor 40mg daily -Lisinopril 10 mg -Increase to Metoprolol XL 50 mg Cardiogenic shock due to VT/WA resolved Acute hypoxic respiratory failure with plash pulmonary edema resolved Aspiration Pneumonia Augmentin 875-125mg daily until 10/15 Acute HFrEF - EF 42% -Add GDMT Lisinopril 10 mg Metoprolol 50 mg HTN - Start home dose lisinopril 10mg HLD - patient was not on cholesterol meds at home - LDL 50 - Goals of Care: Full Code - DVT Prophylaxis: lovenox daily - GI Prophylaxis: Protonix daily - Diet: Regular diet - BMI Classification: Body mass index is 30.38 kg/m . - Disposition: Discharge to home later today. [1] acetaminophen, 1,000 mg, Oral, q8h amoxicillin-clavulanate, 875 mg, Oral, 2 times per day aspirin, 81 mg, Oral, Daily chlorhexidine, , Topical, Daily enoxaparin, 40 mg, SubCUTAneous, Daily Lidocaine, 1 patch, TransDERmal, Daily lisinopril, 10 mg, Oral, Daily metoprolol succinate XL, 50 mg, Oral, Daily mupirocin, 1 Application, Nasal, BID pantoprazole, 20 mg, Oral, qAM AC rosuvastatin, 40 mg, Oral, Nightly ticagrelor, 90 mg, Oral, BID [2] Cosigned by Marimar Vaughn MD at 10/11/2024 12:46 PM EDT Associated attestation - Marimar Vaughn MD - 10/11/2024 12:46 PM EDT I, Dr. Vaughn saw and evaluated the patient on 10/11/2024. I personally obtained the lam and critical portions of the history and physical exam. I reviewed the chart and discussed the patient with the resident. I agree with the resident's medical decision making. Ms. Astudillo is a 68-year-old female with prior medical history of hypertension and dyslipidemia who initially presented to [facility] with acute chest pain and was found to have inferior STEMI. The patient was taken to the [facility] and was found to have mid RCA occlusion and she received 2 drug-eluting stents. In the [employer] [facility], the patient also underwent episodes of ventricular tachycardia and required CPR and defibrillation. She was also noted to have some acute pulmonary edema and respiratory distress around this time and she underwent intubation. Initially the patient was requiring pressors concerning for cardiogenic shock. She reportedly had a fever concerning for an aspiration event during her intubation as well. The patient was started on antibiotics and was transferred to us on 10/08/2024 at [facility]. On presentation, her hemodynamics were stable and the patient was weaned off of her pressor support fairly quickly. She was also doing well from a respiratory standpoint and was subsequently extubated on 10/08/2024. Yesterday the patient was complaining about some musculoskeletal chest pain related to her chest compressions had an ICD shock which is much improved this morning. She has been able to walk around in the hallways without any symptoms. Her right femoral access site is without any hematoma. She also underwent an echocardiogram yesterday that showed an EF of around 40 to 45%. Telemetry showed short run of NSVT. Inferior STEMI complicated by ventricular tachycardia in the setting of ischemia and acute respiratory failure requiring intubation. There is also concern for potential aspiration event. She is doing well this morning. From a recent PCI standpoint, the patient has been maintained on aspirin 81 mg daily and Brilinta 90 mg twice daily. She is also getting PPI along with rosuvastatin 40 mg daily. Echocardiogram performed during this hospitalization now showing an EF of around 40 to 45%. The patient has been started on beta-usman therapy which she tolerated well so we will transition her to metoprolol succinate 50 mg daily today. Reinitiate her home lisinopril 10 mg daily. Will also finish out a course of Augmentin for aspiration pneumonia. The patient may be able to get discharged later on today. She plans on following up with the cardiology team in [place] and we will arrange those follow-ups. She was also interested in doing cardiac rehab at the same hospital. Portions of the information within this encounter were entered using an electronic dictation system. Best attempts were made to proofread the information prior to note completion. Despite the review of the information, some errors may remain. If there are questions related to the information contained within the note please contact the signing provider directly. Marimar Vaughn MD, [facility], [facility] Gunnery/Ordnance Officer [facility], [facility] [address] [place] [address] p [phone] f [phone] [email or web address] Images from the original note were not included. PHYSICAL THERAPY [facility] Initial Evaluation Name/MRN: Lucas Astudillo ([id number]) Evaluation Date: 10/10/2024 Date of : 1955 Admission Date: 10/08/2024 6:32 PM Age: 68 y.o. Room/Bed: T1-124/T1-124 A Discharge Recommendation: Outpatient PT (cardiac rehab) Assessment IMPRESSION: 68 y.o. pt admitted to [facility] for cardiac arrest. They were min A for transfers, and SBA for ambulation. Patient was motivated for therapy. Would recommend outpatient PT (cardiac rehab) at discharge. Admitting Diagnosis: cardiac arrest Prognosis: good Performance Deficits /Impairments: Increased Pain, Decreased Functional Mobility, Decreased ADL status, Decreased Strength, Decreased Endurance, and Decreased Balance Decision Making: Medium Complexity Subjective Patient was in chair when PT arrived. Patient was cleared by RN. Pain: Patient stated pain in chest region, however did not quantify pain Past Medical History: Medical History[1] Past Surgical History: Surgical History[2] Admission Diagnosis: Patient Active Problem List Diagnosis Date Noted Cardiac arrest (HCC) 10/08/2024 Medical Precautions: No active isolations Proper PPE donned/doffed in accordance with facility standards. Fall Risk: Precautions/Restrictions: Lines/Drains/Airways: IV Fall Precautions Family/Caregiver Present: none Overall Cognitive Status: Exceptions - Arousal/alertness: appropriate responses to stimuli - Following commands: follows one step commands consistently Overall Orientation Status: Oriented to Person Vision: No acute vision changes reported Hearing: Grossly intact Social/Functional History Lives at home with who is there to help when needed. Patient lives in split level with 3 stairs to enter with no railing and has 7 steps in order to get upstairs to bed room. Patient said she can live on first floor if needed. Prior Level of Function Prior Level of ADL Function: Independent Prior Level of Mobility: Independent; Device: None Prior Level of Transfers: Independent Objective Lower Extremity Assessment AROM: WFL PROM: Not assessed this session Strength: Exceptions: Grossly 3/5 Sensation: Not assessed this session Balance: Balance During Session: Posture: good Sitting - Static: SBA Sitting - Dynamic: SBA Standing - Static: Supervision Standing - Dynamic: Contact Guard Bed Mobility: Pt up in chair upon arrival Transfers Sit to stand: Min Assist Stand to sit: Min Assist Patient attempted one STS by self and was unable to rise from chair. PT helped the second STS with min A and patient was able to stand up straight. Patient did report dizziness the first time she stood. Ambulation Ambulation 1 Assistive device(s) used: Front wheeled walker Assist level: SBA Distance (ft): 60 Quality of gait: step to pattern, slow alessandro, Patient needed extra time for standing rest breaks. Patient had HR of around 74 bpm Exercises Hip Flexion: Seated marches 1x10 R and L Knee Long Arc Quad: Seated 1x10 R and L Other exercises Other exercises?: Yes Other exercises 1: IS 1x10 to 500 mL Other exercises 2: P&C exercises 1-4 x10 Patient was given education on importance of incentive spirometry and postural and control exercises. Patient was told to do IS and P&C exercises for 10 reps at the beginning of every hour. Outcome Measures AM-PAC How much HELP from another person do you currently need Turning from your back to your side while in a flat bed without using bedrails?: A Little Moving from lying on your back to sitting on the side of a flat bed without using bedrails?: A Little Moving to and from a bed to a chair (including a wheelchair)?: A Little Standing up from a chair using your arms (wheelchair or bedside chair)?: A Little Walking in a hospital room?: A Little Stair climbing assessed?: No AM-PAC Inpatient Mobility Raw Score (No Stairs) : 15 JH-HLM -HL Score: Walked 25 ft or more (i.e. walked outside of room) Plan Pt would benefit from skilled acute PT services to address Strengthening, ROM, Gait Training, Balance Training, and Endurance Training. Frequency: 8 visits during current hospital admission or until additional recommendations are made Barriers: Pain, Impaired balance, and Lower extremity weakness Safety/Education Safety Safety Devices in place: All fall risk precautions in place, call light within reach, left in chair, gait belt, patient at risk for falls, and no alarms engaged upon entry Restraints: No Education Education Given To: patient Education Provided: PT Role, PT Goals, Gait Training, Plan of Care, Home Exercise Program, Discharge Recommendations, Benefits of Increasing Activity, and Breathing Techniques Education Method: Verbal Barriers to Learning: None Education Outcome: Verbalized Understanding Goals Patient Stated Goal: To go home Encounter Problems Encounter Problems (Active) Mobility Patient will ambulate 250 feet with independence and no assistive device in order to improve safety and independence with mobility. Start: 10/10/24 Expected End: 11/07/24 Patient will ascend and descend 7 stairs with one railing and modified independence in order to safely negotiate home. Start: 10/10/24 Expected End: 11/07/24 Pain - Adult Transfers Patient will perform bed mobility with independence in order to improve independence and prepare for out of bed mobility. Start: 10/10/24 Expected End: 11/07/24 Patient will complete functional transfer with no restrictive device with independence in order to prepare for ambulation. Start: 10/10/24 Expected End: 11/07/24 Therapy Time Individual Co-Treatment Co-Evaluation Time In 1107 Time Out 1148 Minutes 41 YONATAN Cain Patient's Physical Therapy Plan of Care supervision is transferred to a [facility] Physical Therapist. Goals and/or treatment plan was established in collaboration with patient/family/other representatives. [1] No past medical history on file. [2] No past surgical history on file. Cosigned by Magali Sanchez PT at 10/10/2024 12:58 PM EDT Nutrition rescreen completed. Chart reviewed. Patient to be monitored and followed by the diet nuclear medicine technician. Images from the original note were not included. [facility] CCU PROGRESS NOTE Patient Name: Lucas Astudillo : 1955 Subjective: Lucas Astudillo is a 68 y.o. female with PMH of HTN, HLD that presented to [facility] on 10/08/2024 from outside facility ([facility]) for post arrest management. Patient presented to [place] ER earlier today with chest pain that had been ongoing for several days. Was found to have STEMI and was taken to bundle tier and labeler where she had 3 episodes of VT requiring CPR and defibrillation. During intubation, she was noted to have frothing secretions consistent with pulmonary edema. Her RCA was able to successfully stented. In recovery, she had a fever of 101.9F and was requiring pressors. On evaluation at [facility], patient is easily awoken, follows commands. No significant peripheral edema. Lungs are clear, though she does have thick secretions on suctioning. Tolerating being off pressors, extubated . Bedside ECHO shows EF of ~30% with apical hypokinesis. Interval History: No acute event over night, denies any headache, shortness of breath, still endorse chest pain but less than yesterday, endorse abit nausea when she is sitting up Sleep well overnight Daily net -922 ml Review of Systems: Review of Systems Constitutional: Negative. HENT: Negative. Eyes: Negative. Respiratory: Negative. Cardiovascular: Negative. Gastrointestinal: Negative. Endocrine: Negative. Genitourinary: Negative. Musculoskeletal: Negative. Neurological: Negative. Inpatient Medications: Scheduled Meds:Scheduled Meds[1] Continuous Infusions:Continuous Meds[2] PRN Meds used in the last 24hr: Keelyfrshay Objective: Physical Examination: BP 101/72 Pulse 74 Temp 36.5 C (97.7 F) (Temporal) Resp 14 Wt 97.2 kg (214 lb 4.6 oz) SpO2 95% Intake/Output Summary (Last 24 hours) at 10/10/2024 0714 Last data filed at 10/10/2024 0504 Gross per 24 hour Intake 1002.23 ml Output 1925 ml Net -922.77 ml Physical Exam HENT: Head: Normocephalic. Nose: Nose normal. Eyes: Pupils: Pupils are equal, round, and reactive to light. Cardiovascular: Rate and Rhythm: Normal rate. Pulmonary: Effort: Pulmonary effort is normal. Breath sounds: Normal breath sounds. Abdominal: Palpations: Abdomen is soft. Musculoskeletal: General: Normal range of motion. Cervical back: Normal range of motion. Neurological: General: No focal deficit present. Mental Status: She is alert. Psychiatric: Mood and Affect: Mood normal. Pertinent Labs: BMP: Lab Results Component Value Date NA 139 10/10/2024 K 3.5 10/10/2024 CL 107 10/10/2024 CO2 27 10/10/2024 BUN 16 10/10/2024 CREATININE 0.93 10/10/2024 GLUCOSE 108 10/10/2024 CALCIUM 8.2 (L) 10/10/2024 MG 1.9 10/10/2024 PHOS 1.9 (L) 10/10/2024 CBC: Lab Results Component Value Date WBC 5.8 10/10/2024 HGB 11.3 (L) 10/10/2024 HCT 35.6 10/10/2024 MCV 91.5 10/10/2024 PLT 118 (L) 10/10/2024 Cardiac profile: CK Date Value Ref Range Status 10/09/2024 1,333 (H) 30 - 185 U/L Final 10/09/2024 1,661 (H) 30 - 185 U/L Final 10/08/2024 2,002 (H) 30 - 185 U/L Final CKMB Date Value Ref Range Status 10/09/2024 90.0 (H) <=3.4 ng/mL Final 10/09/2024 110.2 (H) <=3.4 ng/mL Final Coagulation: No results found for: INR, PTT Lipid panel: Lab Results Component Value Date CHOL 127 10/08/2024 HDL 32 (L) 10/08/2024 TRIG 226 (H) 10/08/2024 Other: Lab Results Component Value Date HGBA1C 5.4 10/08/2024 TSH 0.77 10/10/2024 Chest Imaging: CXR: === 10/08/24 === XR CHEST 1 VIEW - Impression - 1. Left lung base small pleural effusion and/or atelectasis. 2. Pulmonary edema and/or infiltrates right lung. 3. Support devices, as above. Report Dictated on Electronically Signed By: Rhonda Carpio MD Electronically Signed Date/Time: 10/08/2024 8:06 PM EDT Cardiac Studies: Telemetry findings reviewed: NSVT ECG: Encounter Date: 10/08/24 ECG 12 lead Result Value Heart Rate 72 QRSD Interval 97 QT Interval 458 QTC Interval 501 P Ruby 58 QRS Ruby -28 T Wave Ruby -90 AL Interval 182 Impression Sinus rhythm Inferior infarct, recent Abnormal T, suspect prox. LAD occlu. or CVA Prolonged QT interval Echo: No results found for this or any previous visit. Cath Report: No results found for this or any previous visit. Assessment/Plan HF NYHA Class [] I [] II [] III [] IV []Unable to assess [x] N/A -STEMI s/p PCI to RCA - DAPT with aspirin 81mg daily, brilinta 90mg - Crestor 40mg daily -Will add Lorsartan pending Echo result - TSH 0.75 Hb A1C 5,4 Obtain TTE Cardiogenic shock due to VT/WA resolved Acute hypoxic respiratory failure with plash pulmonary edema resolved Aspiration Pneumonia Completed 5 doses pf Unasyn Acute HFrEF - EF ~ 30% on bedside POCUS with apical hypokinesis - will get formal ECHO HTN - holding home lisinopril 10mg as patient was requiring pressors HLD - patient was not on cholesterol meds at home - LDL 50 - Goals of Care: Full Code - DVT Prophylaxis: lovenox daily - GI Prophylaxis: Protonix daily - Diet: Regular diet - BMI Classification: There is no height or weight on file to calculate BMI. - Disposition: Continue to monitor in CCU. [1] acetaminophen, 1,000 mg, Oral, q8h ampicillin-sulbactam, 3,000 mg, IntraVENous, q6h aspirin, 81 mg, Oral, Daily chlorhexidine, , Topical, Daily enoxaparin, 40 mg, SubCUTAneous, Daily Lidocaine, 1 patch, TransDERmal, Daily [Held by provider] metoprolol tartrate, 25 mg, Oral, BID mupirocin, 1 Application, Nasal, BID pantoprazole, 20 mg, Oral, qAM AC rosuvastatin, 40 mg, Oral, Nightly ticagrelor, 90 mg, Oral, BID [2] Cosigned by Marimar Vaughn MD at 10/10/2024 2:48 PM EDT Associated attestation - Marimar Vaughn MD - 10/10/2024 2:48 PM EDT I, Dr. Vaughn saw and evaluated the patient on 10/10/2024. I personally obtained the lam and critical portions of the history and physical exam. I reviewed the chart and discussed the patient with the resident. I agree with the resident's medical decision making. Ms. Astudillo is a 68-year-old female with prior medical history of hypertension and dyslipidemia who initially presented to [facility] with acute chest pain and was found to have inferior STEMI. The patient was taken to the [facility] [employer] [facility] and was found to have mid RCA occlusion and she received 2 drug-eluting stents. In the [employer], the patient also underwent episodes of ventricular tachycardia and required CPR and defibrillation. She was also noted to have some acute pulmonary edema and respiratory distress around this time and she underwent intubation. Initially the patient was requiring pressors concerning for cardiogenic shock. She reportedly had a fever concerning for an aspiration event during her intubation as well. The patient was started on antibiotics and was transferred to us on 10/08/2024 at [facility]. On presentation, her hemodynamics were stable and the patient was weaned off of her pressor support fairly quickly. She was also doing well from a respiratory standpoint and was subsequently extubated on 10/08/2024. This morning the patient is only complaining about some musculoskeletal pain related to her chest compressions. She does not have any other complaints. Her right femoral access site for the cath looks clean without any hematoma. She is not on any oxygen therapy. Her labs are stable this morning. Inferior STEMI complicated by ventricular tachycardia in the setting of ischemia and acute respiratory failure requiring intubation. There is also concern for potential aspiration event. She is doing well this morning. From a recent PCI standpoint, the patient has been maintained on aspirin 81 mg daily and Brilinta 90 mg twice daily. She is also getting PPI along with rosuvastatin 40 mg daily. The patient has been off of the pressor support for greater than 24 hours at this point. Will proceed with initiation of some beta-usman therapy. She did have some NSVT on her telemetry as well. She is still pending her echocardiogram at this time and will likely need other guideline directed medical therapy pending the results of the echocardiogram. She would be a good candidate for cardiac rehab as an outpatient. Depending the findings of the echocardiogram, the patient may require LifeVest as we work on guideline directed medical therapy in hopes to recover the LV function in the next couple of months. We will continue Unasyn for the time being for concern for aspiration pneumonitis/pneumonia. Portions of the information within this encounter were entered using an electronic dictation system. Best attempts were made to proofread the information prior to note completion. Despite the review of the information, some errors may remain. If there are questions related to the information contained within the note please contact the signing provider directly. Marimar Vaughn MD, [facility], [facility] Gunnery/Ordnance Officer [facility], [facility] [address] [place] [address] p [phone] f [phone] [email or web address] Images from the original note were not included. [facility] [place] [facility] CCU PROGRESS NOTE Patient Name: Lucas Astudillo : 1955 Subjective: 68F HTN, HLD, presents from [facility] for post arrest mgmt. Initially presented for STEMI, had 3 VT arrest requiring CPR and defibrillation, intubation, CXR showed pulm edema, RCA stented. At [facility] pt needed pressors, was extubated, POCUS showed EF 30% with apical hypokinesis. Interval History: Denied any shortness of breath , endorse chest pain intermittenly likely due to chest compression in the ED BP around 100/70 , HR 75 Tachypnyea I/O -1125ml Review of Systems: Review of Systems Constitutional: Negative. HENT: Negative. Eyes: Negative. Respiratory: Negative. Cardiovascular: Negative. Gastrointestinal: Negative. Genitourinary: Negative. Musculoskeletal: Negative. Skin: Negative. Neurological: Negative. Hematological: Negative. Psychiatric/Behavioral: Negative. Inpatient Medications: Scheduled Meds:Scheduled Meds[1] Continuous Infusions:Continuous Meds[2] PRN Meds used in the last 24hr: Tomas Objective: Physical Examination: BP 102/71 Pulse 75 Temp 36.2 C (97.2 F) (Temporal) Resp (!) 26 Wt 92.6 kg (204 lb 2.3 oz) SpO2 90% Intake/Output Summary (Last 24 hours) at 10/09/2024 1307 Last data filed at 10/09/2024 1038 Gross per 24 hour Intake 351 ml Output 1710 ml Net -1359 ml Physical Exam HENT: Head: Normocephalic. Nose: Nose normal. Eyes: Extraocular Movements: Extraocular movements intact. Pupils: Pupils are equal, round, and reactive to light. Cardiovascular: Rate and Rhythm: Normal rate. Pulmonary: Effort: Pulmonary effort is normal. Breath sounds: Rales present. Comments: Rale in bilateral lung base Abdominal: Palpations: Abdomen is soft. Musculoskeletal: General: Normal range of motion. Skin: General: Skin is warm. Neurological: Mental Status: She is alert. Psychiatric: Mood and Affect: Mood normal. Pertinent Labs: BMP: Lab Results Component Value Date NA 142 10/09/2024 K 3.7 10/09/2024 CL 111 (H) 10/09/2024 CO2 23 10/09/2024 BUN 17 10/09/2024 CREATININE 1.08 10/09/2024 GLUCOSE 135 (H) 10/09/2024 CALCIUM 8.1 (L) 10/09/2024 CBC: Lab Results Component Value Date WBC 8.9 10/09/2024 HGB 12.9 10/09/2024 HCT 40.2 10/09/2024 MCV 89.9 10/09/2024 PLT 141 10/09/2024 Cardiac profile: CK Date Value Ref Range Status 10/09/2024 1,333 (H) 30 - 185 U/L Final 10/09/2024 1,661 (H) 30 - 185 U/L Final 10/08/2024 2,002 (H) 30 - 185 U/L Final CKMB Date Value Ref Range Status 10/09/2024 90.0 (H) <=3.4 ng/mL Final 10/09/2024 110.2 (H) <=3.4 ng/mL Final Coagulation: No results found for: INR, PTT Lipid panel: Lab Results Component Value Date CHOL 127 10/08/2024 HDL 32 (L) 10/08/2024 TRIG 226 (H) 10/08/2024 Other: Lab Results Component Value Date HGBA1C 5.4 10/08/2024 TSH 0.75 10/08/2024 Chest Imaging: CXR: === 10/08/24 === XR CHEST 1 VIEW - Impression - 1. Left lung base small pleural effusion and/or atelectasis. 2. Pulmonary edema and/or infiltrates right lung. 3. Support devices, as above. Report Dictated on Electronically Signed By: Rhonda Carpio MD Electronically Signed Date/Time: 10/08/2024 8:06 PM EDT Cardiac Studies: Telemetry findings reviewed: ECG: Encounter Date: 10/08/24 ECG 12 lead Result Value Heart Rate 65 QRSD Interval 98 QT Interval 485 QTC Interval 505 P Ruby 45 QRS Ruby -36 T Wave Ruby 256 AL Interval 172 Impression Sinus rhythm Inferior infarct, recent Nonspecific T abnormalities, lateral leads Prolonged QT interval Echo: No results found for this or any previous visit. Cath Report: No results found for this or any previous visit. Assessment/Plan HF NYHA Class [] I [] II [] III [] IV []Unable to assess [x] N/A -STEMI s/p PCI to RCA - DAPT with aspirin 81mg daily, brilinta 90mg - Crestor 40mg daily - CKMB 99 decreasing from 110 -Will add Lopressor later after the pulmonary congestion resolve -Will add Lorsartan pending Echo result - TSH 0.75 Hb A1C 5,4 Cardiogenic shock due to WA resolved Acute hypoxic respiratory failure with plash pulmonary edema vs aspiration pneumonia vs CAP -resolved, Chest Xray showed pulmonay congestion, mildly infiltration in the R middle lobe One dose lasix 40 mg IV, will reaccess later in the pm CAP: treat with Unasyn Acute HFrEF - EF ~ 30% on bedside POCUS with apical hypokinesis - will get formal ECHO HTN - holding home lisinopril 10mg as patient was requiring pressors HLD - patient was not on cholesterol meds at home - LD 50 - Goals of Care: Full Code - DVT Prophylaxis: Lovenox - GI Prophylaxis: Protonix daily - Diet: Carb-Control - BMI Classification: There is no height or weight on file to calculate BMI. - Disposition: Admit to CCU. - Goals of Care: Full Code - DVT Prophylaxis: lovenox daily - GI Prophylaxis: Protonix daily - Diet: Regular diet - BMI Classification: There is no height or weight on file to calculate BMI. - Disposition: Continue to monitor in CCU. [1] acetaminophen, 1,000 mg, Oral, q8h ampicillin-sulbactam, 3,000 mg, IntraVENous, q6h aspirin, 81 mg, Oral, Daily chlorhexidine, , Topical, Daily enoxaparin, 40 mg, SubCUTAneous, Daily Lidocaine, 1 patch, TransDERmal, Daily [Held by provider] metoprolol tartrate, 25 mg, Oral, BID mupirocin, 1 Application, Nasal, BID [START ON 10/10/2024] pantoprazole, 20 mg, Oral, qAM AC rosuvastatin, 40 mg, Per G Tube, Nightly ticagrelor, 90 mg, Per G Tube, BID [2] Cosigned by Sally Cedeno MD at 10/09/2024 6:20 PM EDT ICU Progress Note Name: Lucas Astudillo : 1955(68 y.o.) Date: 10/09/24 Team: MICU Attending: Daquan Stewart Subjective: Hospital Summary: 68yo female to OSH as STEMI. VFA prior to PCI. ROSC. Subseq RCA PCI. Remained NAIF d/t mental status and hypoxia (pulm edema). (+) pressors. (+) fever. To ACH. Rapid wean pressors & sedation to off. Extubated to HFNC. Started on empiric aspiration/CAP rx. Mental status intact. Interval Events: Diuresed overnight (lasix at OSH) No dyspnea Weaned to 2lpm NC overnight, now RA Very fatigued, feels weak but VALLADARES Scheduled Meds:Scheduled Meds[1] Continuous Infusions:Continuous Meds[2] Objective: Last Vitals: BP MAP 102/71 (10/09/24 1100) 80 (10/09/24 1100) Arterial BP MAP Temp 36.2 C (97.2 F) (10/09/24 0904) Pulse 75 (10/09/24 1100) Resp (!) 26 (10/09/24 1100) SpO2 90 % (10/09/24 1100) Weight 92.6 kg (204 lb 2.3 oz) (10/09/24 0515) BMI There is no height or weight on file to calculate BMI. I/O: 10/08 0700 - 10/09 0659 In: 351 [I.V.:351] Out: 585 [Urine:585] Oxygen Delivery: O2 Flow Rate (L/min): 2 L/min Invasive Lines / Tubes / Drains: PICC Double Lumen 10/08/24 Left Unknown (Placed by external staff) (Active) Number of days: 0 Peripheral IV 10/08/24 Anterior;Left Forearm (Active) Number of days: 0 Peripheral IV 10/08/24 Anterior;Proximal;Right Forearm (Active) Number of days: 0 Urethral Catheter (Active) Number of days: 0 Constitutional: General Appearance [x]WDWN []Obese []Cachectic []Thin []Ill Eyes: Inspection of Pupils/Irises Pupils round and react: [x]Yes []No Sclera: []Icteric [x]Non-Icteric Inspection of Conjunctiva/Lids Conjunctiva: []Injected [x]Non-Injected Lids: [x]Intact []Lesion Present ENT/Mouth: External Inspection of ears/nose [x] Normal [] Scar/Lesion/Mass Inspection of teeth/lips/gums Dentition: [x][place] Teeth []Dentures Lips/Gums: []Intact []Lesion Present Mucosa: [x]Encinal [x]Moist []Dry Neck: External Appearance Overall Appearance: [x]Normal []Lesion/Mass/Crepitus Present Trachea midline: [x]Yes []No Thyroid [x]Normal []Enlarged []Tender []Mass []Absent Respiratory: Respiratory effort [x]Labored []Non-Labored [] Mechanically-Ventilated Auscultation []Clear [x]Crackles (trace) []Wheezes []Rhonchi Cardiovascular: Auscultation Rate: [x]Regular []Irregular []Tachycardia []Bradycardia Rhythm: [x]Regular []Irregular Murmur: []Present []Absent Extremities Peripheral Edema: []Present [x]Absent Varicosities: []Present []Absent Gastrointestinal: Abdomen Palpation: [x]Soft []Firm []Tender [x]Non-Tender []Distended [x]Non-distended Mass: []Present [x]Absent Bowel Sounds: [x]Present []Absent Hernia: []Present []Absent Liver/Spleen: []Hepatosplenomegaly []Organomegaly Absent Musculoskeletal: Inspection of Digits and Nails Cyanosis: []Present [x]Absent Clubbing: []Present [x]Absent Ischemia: []Present []Absent Infection: []Present []Absent Extremities VALLADARES Equally: Except ([]RUE []RLE []LUE []LLE) Strength/Tone: Intact and Normal ([x]RUE [x]RLE [x]LUE [x]LLE) Skin: Inspection [x]Normal []Rash []Lesion []Ulcer Palpation [x]Warm []Cool []Dry []Clammy []Nodules []Induration []Skin-tightening Cap-Refill: [] <3 sec [] >3 seconds (delayed) Neurologic: GCS EYE: 4 - Opens spontaneously GCS MOTOR: 6 - Obeys commands for movement GCS VERBAL: 5 - Oriented to person, place, time Total GCS: 15 [x] Sensation grossly intact Psych: Mental Status Alert: [x]Yes [] No Oriented: []x0 []X1 []X2 [x]x3 Mood/Affect [x]Normal []Flat []Agitated []Depressed []Anxious []Calm []Sedated [x]NAD [facility] Labs within last 24 hours- BMP: Recent Labs 10/08/24 1910 10/09/24 0037 NA 141 142 K 4.1 3.7 CL 109* 111* CO2 25 23 BUN 17 17 CREATININE 1.32* 1.08 CALCIUM 8.5* 8.1* LFTs: Recent Labs 10/08/24190910/09/24 0037 AST 309* 282* ALT 51* 45* PROT 6.8 6.2* ALBUMIN 3.1* 2.8* BILITOT 0.6 0.6 ALKPHOS 67 57 Glucose: Recent Labs 10/08/24190910/09/24 0037 GLUCOSE 159* 135* Procal: Recent Labs 10/08/241909 PROCAL 0.74* CBC: Recent Labs 10/08/24190910/08/24194110/09/24 0037 WBC 11.1* -- 8.9 HGB 14.2 14.8 12.9 HCT 43.5 -- 40.2 PLT 191 -- 141 MCV 89.1 -- 89.9 RDW 14.3 -- 14.3 ABGs: Recent Labs 10/08/241941 PHART 7.438 [id number] 34.6* PO2ART 105.4* [id number] 22.9 [id number] Ventilator Lactic Acid: Recent Labs 10/08/241909 LACTATE 1.7 INR: No results for input(s): INR in the last 72 hours. Cardiac Injury Profile: Recent Labs 10/08/24190910/09/24 0037 10/09/24 0301 CKTOTAL 2,002* 1,661* 1,333* CKMB -- 110.2* 90.0* Labs in Last 3 months: Lab Results Component Value Date TSH 0.75 10/08/2024 Microbiology- Urine Cx: No results found for: URINECX Blood Cx: Lab Results Component Value Date BLOODCX Blood culture incubation started 10/08/2024 Sputum Cx: Lab Results Component Value Date RESPCULT Culture in progress 10/08/2024 Gram Stain: Lab Results Component Value Date LABGRAM Few Epithelial cells per low power field (A) 10/08/2024 LABGRAM (A) 10/08/2024 Moderate Polymorphonuclear leukocytes per low power field LABGRAM Few Gram positive cocci (A) 10/08/2024 PNA PCR: Lab Results Component Value Date HUMANMETAPNE Not Detected 10/08/2024 COVID19: No results found for: COVID19 Legionella Ag: Lab Results Component Value Date LEGIONELLAPN Not Detected 10/08/2024 Strep Ag: No results for input(s): STREPPNEUMO in the last 72 hours. Imaging- 10/08/24 CXR. GG dz, more predom RUL and LLL. Ddx CAP, pulm edema or lung contusion (from CPR) Assessment and Plan: VFA, STEMI s/p RCA PCI, card shock (resolved), HFREF (30%), HTN, HLD Per primary, lasix, ASA, brillinta, statin Neuro intact, no need for neurocog testing, activity, PT/OT Acute hypox respiratory failure Pulm edema +/- aspiration/CAP Wean O2 Diuresis per primary Transition to augmentin tomorrow -->complete 5d course total abx -->procal elevated, PCRs neg FEN Diet LMWH We will sign off. Please reconsult prn Time spent preparing to see the patient, obtaining/reviewing separately obtained history, completing an appropriate medical examination of the patient, ordering medications/tests/procedures, documenting clinical information on the EMR, and/or coordinating care is a subsequent visit: 50 minutes (Level III). [1] acetaminophen, 1,000 mg, Oral, q8h ampicillin-sulbactam, 3,000 mg, IntraVENous, q6h aspirin, 81 mg, Oral, Daily chlorhexidine, , Topical, Daily enoxaparin, 40 mg, SubCUTAneous, Daily Lidocaine, 1 patch, TransDERmal, Daily [Held by provider] metoprolol tartrate, 25 mg, Oral, BID mupirocin, 1 Application, Nasal, BID [START ON 10/10/2024] pantoprazole, 20 mg, Oral, qAM AC rosuvastatin, 40 mg, Per G Tube, Nightly ticagrelor, 90 mg, Per G Tube, BID [2] Images from the original note were not included. [facility] [facility] CCU PROGRESS NOTE Patient Name: Lucas Astudillo : 1955 Subjective: Lucas Astudillo is a 68 y.o. female with PMH of HTN, HLD that presented to [facility] on 10/08/2024 from outside facility ([facility]) for post arrest management. Patient presented to [facility] ER earlier today with chest pain that had been ongoing for several days. Was found to have STEMI and was taken to bundle tier and labeler where she had 3 episodes of VT requiring CPR and defibrillation. During intubation, she was noted to have frothing secretions consistent with pulmonary edema. Her RCA was able to successfully stented. In recovery, she had a fever of 101.9F and was requiring pressors. On evaluation at [facility], patient is easily awoken, follows commands. No significant peripheral edema. Lungs are clear, though she does have thick secretions on suctioning. Tolerating being off pressors. Bedside ECHO shows EF of ~30% with apical hypokinesis. Interval History: Patient denies headache, shortness of breath, endores sore thoat Admit intermittent chest pain likely 2/2 CPR yesterday Review of Systems: Review of Systems Constitutional: Negative. HENT: Negative. Eyes: Negative. Respiratory: Negative. Cardiovascular: Negative. Gastrointestinal: Negative. Endocrine: Negative. Genitourinary: Negative. Musculoskeletal: Negative. Neurological: Negative. Inpatient Medications: Scheduled Meds:Scheduled Meds[1] Continuous Infusions:Continuous Meds[2] PRN Meds used in the last 24hr: Objective: Physical Examination: BP 102/63 (BP Location: Right arm, Patient Position: Lying) Pulse 66 Temp 36.9 C (98.4 F) (Temporal) Resp 22 Wt 92.6 kg (204 lb 2.3 oz) SpO2 99% Intake/Output Summary (Last 24 hours) at 10/09/2024 0629 Last data filed at 10/09/2024 0528 Gross per 24 hour Intake 351 ml Output 585 ml Net -234 ml Physical Exam Constitutional: Appearance: Normal appearance. HENT: Head: Normocephalic. Nose: Nose normal. Eyes: Pupils: Pupils are equal, round, and reactive to light. Cardiovascular: Rate and Rhythm: Normal rate. Abdominal: Palpations: Abdomen is soft. Musculoskeletal: General: Normal range of motion. Cervical back: Normal range of motion. Skin: General: Skin is warm. Neurological: General: No focal deficit present. Mental Status: She is alert. Pertinent Labs: BMP: Lab Results Component Value Date NA 142 10/09/2024 K 3.7 10/09/2024 CL 111 (H) 10/09/2024 CO2 23 10/09/2024 BUN 17 10/09/2024 CREATININE 1.08 10/09/2024 GLUCOSE 135 (H) 10/09/2024 CALCIUM 8.1 (L) 10/09/2024 CBC: Lab Results Component Value Date WBC 8.9 10/09/2024 HGB 12.9 10/09/2024 HCT 40.2 10/09/2024 MCV 89.9 10/09/2024 PLT 141 10/09/2024 Cardiac profile: CK Date Value Ref Range Status 10/09/2024 1,333 (H) 30 - 185 U/L Final 10/09/2024 1,661 (H) 30 - 185 U/L Final 10/08/2024 2,002 (H) 30 - 185 U/L Final CKMB Date Value Ref Range Status 10/09/2024 90.0 (H) <=3.4 ng/mL Final 10/09/2024 110.2 (H) <=3.4 ng/mL Final Coagulation: No results found for: INR, PTT Lipid panel: Lab Results Component Value Date CHOL 127 10/08/2024 HDL 32 (L) 10/08/2024 TRIG 226 (H) 10/08/2024 Other: Lab Results Component Value Date HGBA1C 5.4 10/08/2024 TSH 0.75 10/08/2024 Chest Imaging: CXR: === 10/08/24 === XR CHEST 1 VIEW - Impression - 1. Left lung base small pleural effusion and/or atelectasis. 2. Pulmonary edema and/or infiltrates right lung. 3. Support devices, as above. Report Dictated on Electronically Signed By: Rhonda Carpio MD Electronically Signed Date/Time: 10/08/2024 8:06 PM EDT Cardiac Studies: Telemetry findings reviewed: ECG: Encounter Date: 10/08/24 ECG 12 lead Result Value Heart Rate 65 QRSD Interval 98 QT Interval 485 QTC Interval 505 P Ruby 45 QRS Ruby -36 T Wave Ruby 256 AL Interval 172 Impression Sinus rhythm Inferior infarct, recent Nonspecific T abnormalities, lateral leads Prolonged QT interval Echo: No results found for this or any previous visit. Cath Report: No results found for this or any previous visit. Assessment/Plan HF NYHA Class [] I [] II [] III [] IV []Unable to assess [x] N/A STEMI s/p PCI to RCA - DAPT with aspirin 81mg daily, brilinta 90mg - loaded at [facility] so first dose of aspirin in AM, first dose of brilinta this evening - crestor 40mg daily - will check lipid panel - will check TSH - will check A1C Acute hypoxic respiratory failure Possible flash pulmonary edema vs aspiration pneumonia vs CAP - Received 40mg IV lasix x 2 at [facility] - CXR with edema vs infiltrate in R lung - will obtain pneumonia PCR, RPP, sputum culture - MRSA swab - blood cultures - legionella/strep urine antigens - procal - vent per MICU - monitor off levophed - daily CXR - will treat empirically for aspiration pneumonia with unasyn given thick secretions Acute HFrEF - EF ~ 30% on bedside POCUS with apical hypokinesis - will get formal ECHO in AM HTN - holding home lisinopril 10mg as patient was requiring pressors HLD - patient was not on cholesterol meds at home - will check lipid panel - Goals of Care: Full Code - DVT Prophylaxis: Lovenox 40 q24hr - CrCl >30 - GI Prophylaxis: Protonix daily - Diet: Carb-Control - BMI Classification: There is no height or weight on file to calculate BMI. - Disposition: Admit to CCU. - - Goals of Care: Full Code - DVT Prophylaxis: Heparin - GI Prophylaxis: Protonix daily - Diet: regular - BMI Classification: There is no height or weight on file to calculate BMI. - Disposition: Continue to monitor in CCU. [1] acetaminophen, 1,000 mg, Oral, q8h ampicillin-sulbactam, 3,000 mg, IntraVENous, q6h aspirin, 81 mg, Oral, Daily chlorhexidine, , Topical, Daily enoxaparin, 40 mg, SubCUTAneous, Daily [Held by provider] lisinopril, 10 mg, Oral, Daily metoprolol tartrate, 25 mg, Oral, BID mupirocin, 1 Application, Nasal, BID norepinephrine in sodium chloride 0.9 %, , , pantoprazole, 40 mg, Oral, qAM AC Or pantoprazole (ProtoNix) 40 mg in sodium chloride (PF) 0.9 % 10 mL injection, 40 mg, IntraVENous, qAM AC rosuvastatin, 40 mg, Per G Tube, Nightly spironolactone, 25 mg, Oral, Daily ticagrelor, 90 mg, Per G Tube, BID [2] Cosigned by Sally Cedeno MD at 10/09/2024 6:19 PM EDT [facility] Respiratory Care Department Progress Note Spontaneous Awakening Trial Wean Screen SpO2>/=88%: Yes (10/08/242044) FiO2</=50%: Yes (10/08/242044) PEEP </=8cmH2O: Yes (10/08/242044) HR <140 BPM: Yes (10/08/242044) RR </= 35 breaths/min: Yes (10/08/242044) MAP >/= 65mmHg: Yes (10/08/242044) Arterial pH >7.30: Yes (10/08/242044) Safety Screen Spontaneous Breathing Trial (SBT - RT) : Proceed with SBT - No exclusion criteria met (10/08/242044) Spontaneous Breathing Trial Weaning Start Time: 1954 (10/08/242044) Weaning Tidal Volume: 292 mL (10/08/242044) Weaning Respiratory Rate: 27 (10/08/242044) Spontaneous Minute Volume (MV): 7.4 (10/08/242044) Total RSBI: 93 (10/08/242044) Weaning Tolerance: Good (10/08/242044) Weaning Stop Time: 2044 (10/08/242044) Weaning Duration (min): 50 (10/08/242044) Spontaneous Breathing Trial (SBT - RT) Outcome: SBT Passed (10/08/242044) Vent Settings Vent Mode: Spontaneous (10/08/242044) Mandatory Type: VC+ (10/08/241945) Resp Rate (Set): 16 (10/08/241945) Vt (Set, mL): 450 mL (10/08/241945) FiO2 (%): 50 % (10/08/242044) PEEP/CPAP (cm H2O): 8 cm H20 (10/08/242044) Inspiratory Time (sec): 0.9 sec (10/08/241945) Vitals Heart Rate: 80 (10/08/242044) Resp: (!) 26 (10/08/242044) SpO2: 100 % (10/08/242044) Suctioning/Secretions ABG results Recent Labs 10/08/241941 PHART 7.438 [id number] 34.6* PO2ART 105.4* DFI2HGG 22.9 [id number] Ventilator Does this patient meet criteria for termination of mechanical ventilation Yes- Notified physician below Name of physician notified via secure chat or in person : Dr. Huseyin Stewart (NA if patient did not meet criteria) Comments: Thank you for involving Respiratory in the care of this patient, documented in this encounter [facility] 10-11-2024 Miscellaneous Notes Images from the original note were not included. Ischemic Heart Disease Coordinator Note Name: Lucas Astudillo Date of : 1955 10/11/24 Cardiac Medications - aspirin 81mg daily, ticagrelor 90mg twice daily, metoprolol succinate 50mg daily, lisinopril 10mg daily, rosuvastatin 40mg daily, and pantoprazole 20mg daily Primary [facility] Follow-up arranged with Tova Latif on 10/20/24 at 9:30am Cardiac rehab discussed with patient - Yes Discharge instructions, medications, restrictions, activity, diet, cardiac rehab and follow-up reviewed and patient verbalized understanding. She will utilize [id number] for her home-going Rx and was instructed to notify office with any difficulty obtaining Rx or if this becomes a financial burden. She was also informed to notify the office in the future if anyone asks her to hold or stop either ASA or ticagrelor (Brilinta) 90mg BID. Problem: Pain - Adult Goal: Verbalizes/displays adequate comfort level or baseline comfort level Outcome: Progressing Flowsheets Taken 10/11/2024309 Verbalizes/displays adequate comfort level or baseline comfort level: Administer analgesics based on type and severity of pain and evaluate response Implement non-pharmacological measures as appropriate and evaluate response Assess pain using appropriate pain scale Taken 10/10/20241929 Verbalizes/displays adequate comfort level or baseline comfort level: Encourage patient to monitor pain and request assistance Assess pain using appropriate pain scale Administer analgesics based on type and severity of pain and evaluate response Implement non-pharmacological measures as appropriate and evaluate response Problem: Safety - Adult Goal: Free from fall injury Outcome: Progressing Flowsheets (Taken 10/10/20241929) Free from fall injury: Instruct family/caregiver on patient safety Problem: Discharge Planning Goal: Discharge to home or other facility with appropriate resources Outcome: Progressing Flowsheets (Taken 10/11/2024309) Discharge to home or other facility with appropriate resources: Identify barriers to discharge with patient and caregiver Problem: Chronic Conditions and Co-morbidities Goal: Patient's chronic conditions and co-morbidity symptoms are monitored and maintained or improved Outcome: Progressing Flowsheets (Taken 10/11/2024309) Care Plan - Patient's Chronic Conditions and Co-Morbidity Symptoms are Monitored and Maintained or Improved: Monitor and assess patient's chronic conditions and comorbid symptoms for stability, deterioration, or improvement Care Management Progress Note Short Medical why still here: Telemetry, Monitoring Pulmonary congestion, IV diuresis. Planned Discharge Disposition: Home or Self Care Barriers/Today we still Wait: Administering IV medications, Clinical stability Length of Stay (Days): 2 GMLOS: No GMLOS Documented Problem: Pain - Adult Goal: Verbalizes/displays adequate comfort level or baseline comfort level Outcome: Progressing Problem: Safety - Adult Goal: Free from fall injury Outcome: Progressing Problem: Discharge Planning Goal: Discharge to home or other facility with appropriate resources Outcome: Progressing Problem: Chronic Conditions and Co-morbidities Goal: Patient's chronic conditions and co-morbidity symptoms are monitored and maintained or improved Outcome: Progressing documented in this encounter [facility] 10-11-2024 Plan of care note Images from the original note were not included. Ischemic Heart Disease Coordinator Note Name: Lucas Astudillo Date of : 1955 10/11/24 Cardiac Medications - aspirin 81mg daily, ticagrelor 90mg twice daily, metoprolol succinate 50mg daily, lisinopril 10mg daily, rosuvastatin 40mg daily, and pantoprazole 20mg daily Primary [facility] Follow-up arranged with Tova Latif on 10/20/24 at 9:30am Cardiac rehab discussed with patient - Yes Discharge instructions, medications, restrictions, activity, diet, cardiac rehab and follow-up reviewed and patient verbalized understanding. She will utilize [id number] for her home-going Rx and was instructed to notify office with any difficulty obtaining Rx or if this becomes a financial burden. She was also informed to notify the office in the future if anyone asks her to hold or stop either ASA or ticagrelor (Brilinta) 90mg BID. [facility] 10-11-2024 Hospital Discharg e instructions NATALIA Childs CNP - 10/11/2024 9:58 AM EDT Expect a phone call within 72 hours post discharge. If you have questions, issues, or concerns please call the Ischemic Heart Disease Hotline, # [phone] (available 20/10) Post Cardiac Catheterization/Groin Site Care Call your doctor with any medication questions or if you notice any side effects from your medications. If you are unable to fill your medications, please call your [facility] immediately. The office number is located with your follow-up appointment information. Call your doctor if any redness or drainage from the wound site. DO NOT stop taking your medication unless instructed to do so by your doctor. No alcoholic beverages for 24 hours. It may interfere with healing. No exercise or sex for 5 days. Call your doctor if a lump at the puncture site enlarges or is larger than a golf ball. Call your doctor for severe pain to a light touch or for numbness, tingling or swelling of the affected foot. Call your doctor for increased area of bruising with discoloration extending down the leg. Call your doctor for coolness of the leg or foot. If bleeding occurs, lie down on a hard surface preferably the floor and apply pressure to the site for 20 minutes if BLEEDING continues CALL 911. OK to shower. No tub baths, swimming pools, or hot tub soaking for 5 days. Wash site daily with soap and water, dry gently. The healing wound should remain soft and dry. Keep the site clean and dry. Cover with large band aid and change dressing for total of 5 days. No lifting, pushing or pulling more than 5 pounds for 5 days. No driving for 3 days. Limit your stair climbing for 3 days. ACUTE CORONARY SYNDROME (Heart attack, Myocardial Infarction [STEMI/NSTEMI], unstable angina): situations where the blood supplied to the heart muscle is severely reduced or blocked (the blockage can be a narrowing or sudden and complete). Then the section of the heart muscle supplied by that artery can be damaged. The amount of damage increases the longer an artery stays blocked and in some cases, it may even . The amount of damage to the heart muscle depends on the size of the area supplied by the blocked artery and the time between injury and treatment. Risk Factors Cannot Change [] Age [] Gender [] Family history of heart disease Can Change [] Tobacco use (cigarettes, chewing, vape) [] Diabetes [] High cholesterol [] Sedentary lifestyle [] Poor diet [] For women, a History of high blood pressure, pre-eclampsia or diabetes during GREEN ZONE: All Clear- Your Symptoms Are Under Control No increase in frequency or severity of chest pain No increased shortness of breath No lightheadedness or dizziness This Means You Should: Continue taking your medications as prescribed Continue activity as tolerated Exercise regularly or as recommended by your physician Eat a healthy diet low in saturated and trans fat, limiting alcohol and caffeine Maintain a healthy weight Keep all doctor appointments Avoid smoking YELLOW ZONE: Caution Chest pain, pressure or tightness - return of symptoms similar to what brought you to the hospital Pain radiating into your neck, jaw or arm Shortness of breath Nausea or heavy sweating Lightheadedness or dizziness Any side effects from your medications Uneasy feeling or that something is wrong This Means You Should: Call the Ischemic hotline [phone] or your doctor's office for further instructions RED ZONE: Medical Alert Chest pain/pressure/discomfort or pain in the neck, jaw, arm, upper back that is lasting longer than 5 minutes OR NOT relieved after nitroglycerin (if prescribed) Severe shortness of breath Passing out or fainting This Means You Should Call 911 Immediately Heart-Healthy Life-Style Modifications Take your medications as prescribed Quit smoking ([email or web address]) Control your blood sugar Treat high-blood pressure Eat a heart-healthy diet, low in saturated and trans-fat, sodium and added sugars Exercise regularly Achieve and maintain a healthy weight Keep your follow-up appointments Ask Your Provider Before You Take New medications Isoq-qvp-ewhyrzm drugs, nutrition supplements or herbal therapies Avoid nonsteroidal anti-inflammatory drugs (NSAIDS). Example are ibuprofen (Advil , Motrin ) and naproxen (Aleve , Naprosyn ). Acetaminophen (Tylenol ) is recommended to relieve aches, pains and/or fever. Avoid decongestants, such as pseudoephedrine (Sudafed ). If you have any questions about whether it is safe to take a medicine, ask your doctor, nurse, or pharmacist. Cardiac Rehab The Cardiac Rehab team at [facility] consists of highly skilled exercise physiologists, nurses, respiratory therapists and physicians working together with you. Our purpose is to help you have a full recovery and achieve the goals you set for yourself. Over the years many of our patients have returned to activities they assumed they would never do again! We can help restore your confidence and motivation to make lifestyle changes that can have a significant impact on your health and quality of life! We can help answer questions and concerns you may have about exercise, lifestyle, medications, diet, stress and anxiety which are common following a hospitalization. We monitor ECG and vital signs during exercise and discuss your progress with you and report to your physician. Cardiac Rehab is proven to help reduce readmissions, improve functional capacity and lower recurrence of problems with your heart. We have facilities at both [facility] and [facility]. At both locations we have street level parking which is free and our sites are easily accessible. For both [facility] you can contact us at . We invite you to call us with your questions or to get started in our program. If you have other questions or concerns be sure to ask your provider during your follow up visit. We look forward to seeing you there. Our locations: [facility] [address] [facility] [facility] [address] Floor [id number] - Ground floor documented in this encounter [facility] 10-11-2024 Plan of care note Problem: Pain - Adult Goal: Verbalizes/displays adequate comfort level or baseline comfort level Outcome: Progressing Flowsheets Taken 10/11/2024 0310 Verbalizes/displays adequate comfort level or baseline comfort level: Administer analgesics based on type and severity of pain and evaluate response Implement non-pharmacological measures as appropriate and evaluate response Assess pain using appropriate pain scale Taken 10/10/2024 1930 Verbalizes/displays adequate comfort level or baseline comfort level: Encourage patient to monitor pain and request assistance Assess pain using appropriate pain scale Administer analgesics based on type and severity of pain and evaluate response Implement non-pharmacological measures as appropriate and evaluate response Problem: Safety - Adult Goal: Free from fall injury Outcome: Progressing Flowsheets (Taken 10/10/20241929) Free from fall injury: Instruct family/caregiver on patient safety Problem: Discharge Planning Goal: Discharge to home or other facility with appropriate resources Outcome: Progressing Flowsheets (Taken 10/11/2024 0310) Discharge to home or other facility with appropriate resources: Identify barriers to discharge with patient and caregiver Problem: Chronic Conditions and Co-morbidities Goal: Patient's chronic conditions and co-morbidity symptoms are monitored and maintained or improved Outcome: Progressing Flowsheets (Taken 10/11/2024 0310) Care Plan - Patient's Chronic Conditions and Co-Morbidity Symptoms are Monitored and Maintained or Improved: Monitor and assess patient's chronic conditions and comorbid symptoms for stability, deterioration, or improvement T [facility] 10-10-2024 Note PHYSICAL THERAPY [facility] Initial Evaluation Name/MRN: Lucas Astudillo ([id number]) Evaluation Date: 10/10/2024 Date of : 1955 Admission Date: 10/08/2024 6:32 PM Age: 68 y.o. Room/Bed: T1-124/T1-124 A Discharge Recommendation: Outpatient PT (cardiac rehab) Assessment IMPRESSION: 68 y.o. pt admitted to [facility] for cardiac arrest. They were min A for transfers, and SBA for ambulation. Patient was motivated for therapy. Would recommend outpatient PT (cardiac rehab) at discharge. Admitting Diagnosis: cardiac arrest Prognosis: good Performance Deficits /Impairments: Increased Pain, Decreased Functional Mobility, Decreased ADL status, Decreased Strength, Decreased Endurance, and Decreased Balance Decision Making: Medium Complexity Subjective Patient was in chair when PT arrived. Patient was cleared by RN. Pain: Patient stated pain in chest region, however did not quantify pain Past Medical History: Medical History[1] Past Surgical History: Surgical History[2] Admission Diagnosis: Patient Active Problem List Diagnosis Date Noted Cardiac arrest (HCC) 10/08/2024 Medical Precautions: No active isolations Proper PPE donned/doffed in accordance with facility standards. Fall Risk: Precautions/Restrictions: Lines/Drains/Airways: IV Fall Precautions Family/Caregiver Present: none Overall Cognitive Status: Exceptions - Arousal/alertness: appropriate responses to stimuli - Following commands: follows one step commands consistently Overall Orientation Status: Oriented to Person Vision: No acute vision changes reported Hearing: Grossly intact Social/Functional History Lives at home with who is there to help when needed. Patient lives in split level with 3 stairs to enter with no railing and has 7 steps in order to get upstairs to bed room. Patient said she can live on first floor if needed. Prior Level of Function Prior Level of ADL Function: Independent Prior Level of Mobility: Independent; Device: None Prior Level of Transfers: Independent Objective Lower Extremity Assessment AROM: WFL PROM: Not assessed this session Strength: Exceptions: Grossly 3/5 Sensation: Not assessed this session Balance: Balance During Session: Posture: good Sitting - Static: SBA Sitting - Dynamic: SBA Standing - Static: Supervision Standing - Dynamic: Contact Guard Bed Mobility: Pt up in chair upon arrival Transfers Sit to stand: Min Assist Stand to sit: Min Assist Patient attempted one STS by self and was unable to rise from chair. PT helped the second STS with min A and patient was able to stand up straight. Patient did report dizziness the first time she stood. Ambulation Ambulation 1 Assistive device(s) used: Front wheeled walker Assist level: SBA Distance (ft): 60 Quality of gait: step to pattern, slow alessandro, Patient needed extra time for standing rest breaks. Patient had HR of around 74 bpm Exercises Hip Flexion: Seated marches 1x10 R and L Knee Long Arc Quad: Seated 1x10 R and L Other exercises Other exercises?: Yes Other exercises 1: IS 1x10 to 500 mL Other exercises 2: P&C exercises 1-4 x10 Patient was given education on importance of incentive spirometry and postural and control exercises. Patient was told to do IS and P&C exercises for 10 reps at the beginning of every hour. Outcome Measures AM-PAC How much HELP from another person do you currently need Turning from your back to your side while in a flat bed without using bedrails?: A Little Moving from lying on your back to sitting on the side of a flat bed without using bedrails?: A Little Moving to and from a bed to a chair (including a wheelchair)?: A Little Standing up from a chair using your arms (wheelchair or bedside chair)?: A Little Walking in a hospital room?: A Little Stair climbing assessed?: No AM-PAC Inpatient Mobility Raw Score (No Stairs) : 15 JH-HLM JH-HLM Score: Walked 25 ft or more (i.e. walked outside of room) Plan Pt would benefit from skilled acute PT services to address Strengthening, ROM, Gait Training, Balance Training, and Endurance Training. Frequency: 8 visits during current hospital admission or until additional recommendations are made Barriers: Pain, Impaired balance, and Lower extremity weakness Safety/Education Safety Safety Devices in place: All fall risk precautions in place, call light within reach, left in chair, gait belt, patient at risk for falls, and no alarms engaged upon entry Restraints: No Education Education Given To: patient Education Provided: PT Role, PT Goals, Gait Training, Plan of Care, Home Exercise Program, Discharge Recommendations, Benefits of Increasing Activity, and Breathing Techniques Education Method: Verbal Barriers to Learning: None Education Outcome: Verbalized Understanding Goals Patient Stated Goal: To go home Encounter Problems Encounter Problems (Active) Mobil (more content not included)... [facility] 10-10-2024 Note Formatting of this n ote might be different from the original. Care Management Progress Note Short Medical why still here: Telemetry, Monitoring Pulmonary congestion, IV diuresis. Planned Discharge Disposition: Home or Self Care Barriers/Today we still Wait: Administering IV medications, Clinical stability Length of Stay (Days): 2 GMLOS: No GMLOS Documented T [facility] 10-10-2024 Note Formatting of this n ote might be different from the original. Care Management Progress Note Short Medical why still here: Telemetry, Monitoring Pulmonary congestion, IV diuresis. Planned Discharge Disposition: Home or Self Care Barriers/Today we still Wait: Administering IV medications, Clinical stability Length of Stay (Days): 2 GMLOS: No GMLOS Documented [facility] 10-10-2024 Note Care Management Prog ress Note Short Medical why still here: Telemetry, Monitoring Pulmonary congestion, IV diuresis. Planned Discharge Disposition: Home or Self Care Barriers/Today we still Wait: Administering IV medications, Clinical stability Length of Stay (Days): 2 GMLOS: No GMLOS Documented [facility] 10-10-2024 Plan of care note Problem: Pain - Adult Goal: Verbalizes/displays adequate comfort level or baseline comfort level Outcome: Progressing Problem: Safety - Adult Goal: Free from fall injury Outcome: Progressing Problem: Discharge Planning Goal: Discharge to home or other facility with appropriate resources Outcome: Progressing Problem: Chronic Conditions and Co-morbidities Goal: Patient's chronic conditions and co-morbidity symptoms are monitored and maintained or improved Outcome: Progressing [facility] 10-09-2024 Note [facility] [place] [facility] CCU PROGRESS NOTE Patient Name: Lucas Astudillo : 1955 Subjective: 68F HTN, HLD, presents from [facility] for post arrest mgmt. Initially presented for STEMI, had 3 VT arrest requiring CPR and defibrillation, intubation, CXR showed pulm edema, RCA stented. At [facility] pt needed pressors, was extubated, POCUS showed EF 30% with apical hypokinesis. Interval History: Denied any shortness of breath , endorse chest pain intermittenly likely due to chest compression in the ED BP around 100/70 , HR 75 Tachypnyea I/O -1125ml Review of Systems: Review of Systems Constitutional: Negative. HENT: Negative. Eyes: Negative. Respiratory: Negative. Cardiovascular: Negative. Gastrointestinal: Negative. Genitourinary: Negative. Musculoskeletal: Negative. Skin: Negative. Neurological: Negative. Hematological: Negative. Psychiatric/Behavioral: Negative. Inpatient Medications: Scheduled Meds:Scheduled Meds[1] Continuous Infusions:Continuous Meds[2] PRN Meds used in the last 24hr: Zofran Objective: Physical Examination: BP 102/71 Pulse 75 Temp 36.2 ?C (97.2 ?F) (Temporal) Resp (!) 26 Wt 92.6 kg (204 lb 2.3 oz) SpO2 90% Intake/Output Summary (Last 24 hours) at 10/09/2024 1307 Last data filed at 10/09/2024 1038 Gross per 24 hour Intake 351 ml Output 1710 ml Net -1359 ml Physical Exam HENT: Head: Normocephalic. Nose: Nose normal. Eyes: Extraocular Movements: Extraocular movements intact. Pupils: Pupils are equal, round, and reactive to light. Cardiovascular: Rate and Rhythm: Normal rate. Pulmonary: Effort: Pulmonary effort is normal. Breath sounds: Rales present. Comments: Rale in bilateral lung base Abdominal: Palpations: Abdomen is soft. Musculoskeletal: General: Normal range of motion. Skin: General: Skin is warm. Neurological: Mental Status: She is alert. Psychiatric: Mood and Affect: Mood normal. Pertinent Labs: BMP: Lab Results Component Value Date NA 142 10/09/2024 K 3.7 10/09/2024 CL 111 (H) 10/09/2024 CO2 23 10/09/2024 BUN 17 10/09/2024 CREATININE 1.08 10/09/2024 GLUCOSE 135 (H) 10/09/2024 CALCIUM 8.1 (L) 10/09/2024 CBC: Lab Results Component Value Date WBC 8.9 10/09/2024 HGB 12.9 10/09/2024 HCT 40.2 10/09/2024 MCV 89.9 10/09/2024 PLT 141 10/09/2024 Cardiac profile: CK Date Value Ref Range Status 10/09/2024 1,333 (H) 30 - 185 U/L Final 10/09/2024 1,661 (H) 30 - 185 U/L Final 10/08/2024 2,002 (H) 30 - 185 U/L Final CKMB Date Value Ref Range Status 10/09/2024 90.0 (H) <=3.4 ng/mL Final 10/09/2024 110.2 (H) <=3.4 ng/mL Final Coagulation: No results found for: INR, PTT Lipid panel: Lab Results Component Value Date CHOL 127 10/08/2024 HDL 32 (L) 10/08/2024 TRIG 226 (H) 10/08/2024 Other: Lab Results Component Value Date HGBA1C 5.4 10/08/2024 TSH 0.75 10/08/2024 Chest Imaging: CXR: === 10/08/24 === XR CHEST 1 VIEW - Impression - 1. Left lung base small pleural effusion and/or atelectasis. 2. Pulmonary edema and/or infiltrates right lung. 3. Support devices, as above. Report Dictated on Electronically Signed By: Rhonda Carpio MD Electronically Signed Date/Time: 10/08/2024 8:06 PM EDT Cardiac Studies: Telemetry findings reviewed: ECG: Encounter Date: 10/08/24 ECG 12 lead Result Value Heart Rate 65 QRSD Interval 98 QT Interval 485 QTC Interval 505 P Ruby 45 QRS Ruby -36 T Wave Ruby 256 AL Interval 172 Impression Sinus rhythm Inferior infarct, recent Nonspecific T abnormalities, lateral leads Prolonged QT interval Echo: No results found for this or any previous visit. Cath Report: No results found for this or any previous visit. Assessment/Plan HF NYHA Class [] I [] II [] III [] IV []Unable to assess [x] N/A -STEMI s/p PCI to RCA - DAPT with aspirin 81mg daily, brilinta 90mg - Crestor 40mg daily - CKMB 99 decreasing from 110 -Will add Lopressor later after the pulmonary congestion resolve -Will add Lorsartan pending Echo result - TSH 0.75 Hb A1C 5,4 Cardiogenic shock due to WA resolved Acute hypoxic respiratory failure with plash pulmonary edema vs aspiration pneumonia vs CAP -resolved, Chest Xray showed pulmonay congestion, mildly infiltration in the R middle lobe One dose lasix 40 mg IV, will reaccess later in the pm CAP: treat with Unasyn Acute HFrEF - EF ~ 30% on bedside POCUS with apical hypokinesis - will get formal ECHO HTN - holding home lisinopril 10mg as patient was requiring pressors HLD - patient was not on cholesterol meds at home - LD 50 - Goals of Care: Full Code - DVT Prophylaxis: Lovenox - GI Prophylaxis: Protonix daily - Diet: Carb-Control - BMI Classification: There is no height or weight on file to calculate BMI. - Disposition: Admit to CCU. - Goals of Care: Full Code - DVT Prophylaxis: loven (more content not included)... [facility] 10-09-2024 Note ICU Progress Note Name: Lucas Astudillo : 1955(68 y.o.) Date: 10/09/24 Team: MICU Attending: Daquan Stewart Subjective: Hospital Summary: 68yo female to OSH as STEMI. VFA prior to PCI. ROSC. Subseq RCA PCI. Remained NAIF d/t mental status and hypoxia (pulm edema). (+) pressors. (+) fever. To ACH. Rapid wean pressors & sedation to off. Extubated to HFNC. Started on empiric aspiration/CAP rx. Mental status intact. Interval Events: Diuresed overnight (lasix at OSH) No dyspnea Weaned to 2lpm NC overnight, now RA Very fatigued, feels weak but VALLADARES Scheduled Meds:Scheduled Meds[1] Continuous Infusions:Continuous Meds[2] Objective: Last Vitals: BP MAP 102/71 (10/09/24 1100) 80 (10/09/24 1100) Arterial BP MAP Temp 36.2 ?C (97.2 ?F) (10/09/24 0904) Pulse 75 (10/09/24 1100) Resp (!) 26 (10/09/24 1100) SpO2 90 % (10/09/24 1100) Weight 92.6 kg (204 lb 2.3 oz) (10/09/24 0515) BMI There is no height or weight on file to calculate BMI. I/O: 10/08 0700 - 10/09 0659 In: 351 [I.V.:351] Out: 585 [Urine:585] Oxygen Delivery: O2 Flow Rate (L/min): 2 L/min Invasive Lines / Tubes / Drains: PICC Double Lumen 10/08/24 Left Unknown (Placed by external staff) (Active) Number of days: 0 Peripheral IV 10/08/24 Anterior;Left Forearm (Active) Number of days: 0 Peripheral IV 10/08/24 Anterior;Proximal;Right Forearm (Active) Number of days: 0 Urethral Catheter (Active) Number of days: 0 Constitutional: General Appearance [x]WDWN []Obese []Cachectic []Thin []Ill Eyes: Inspection of Pupils/Irises Pupils round and react: [x]Yes []No Sclera: []Icteric [x]Non-Icteric Inspection of Conjunctiva/Lids Conjunctiva: []Injected [x]Non-Injected Lids: [x]Intact []Lesion Present ENT/Mouth: External Inspection of ears/nose [x] Normal [] Scar/Lesion/Mass Inspection of teeth/lips/gums Dentition: [x][place] Teeth []Dentures Lips/Gums: []Intact []Lesion Present Mucosa: [x]Encinal [x]Moist []Dry Neck: External Appearance Overall Appearance: [x]Normal []Lesion/Mass/Crepitus Present Trachea midline: [x]Yes []No Thyroid [x]Normal []Enlarged []Tender []Mass []Absent Respiratory: Respiratory effort [x]Labored []Non-Labored [] Mechanically-Ventilated Auscultation []Clear [x]Crackles (trace) []Wheezes []Rhonchi Cardiovascular: Auscultation Rate: [x]Regular []Irregular []Tachycardia []Bradycardia Rhythm: [x]Regular []Irregular Murmur: []Present []Absent Extremities Peripheral Edema: []Present [x]Absent Varicosities: []Present []Absent Gastrointestinal: Abdomen Palpation: [x]Soft []Firm []Tender [x]Non-Tender []Distended [x]Non-distended Mass: []Present [x]Absent Bowel Sounds: [x]Present []Absent Hernia: []Present []Absent Liver/Spleen: []Hepatosplenomegaly []Organomegaly Absent Musculoskeletal: Inspection of Digits and Nails Cyanosis: []Present [x]Absent Clubbing: []Present [x]Absent Ischemia: []Present []Absent Infection: []Present []Absent Extremities VALLADARES Equally: Except ([]RUE []RLE []LUE []LLE) Strength/Tone: Intact and Normal ([x]RUE [x]RLE [x]LUE [x]LLE) Skin: Inspection [x]Normal []Rash []Lesion []Ulcer Palpation [x]Warm []Cool []Dry []Clammy []Nodules []Induration []Skin-tightening Cap-Refill: [] <3 sec [] >3 seconds (delayed) Neurologic: GCS EYE: 4 - Opens spontaneously GCS MOTOR: 6 - Obeys commands for movement GCS VERBAL: 5 - Oriented to person, place, time Total GCS: 15 [x] Sensation grossly intact Psych: Mental Status Alert: [x]Yes [] No Oriented: []x0 []X1 []X2 [x]x3 Mood/Affect [x]Normal []Flat []Agitated []Depressed []Anxious []Calm []Sedated [x]NAD [facility] Labs within last 24 hours- BMP: Recent Labs 10/08/24190910/09/2436 NA 141 142 K 4.1 3.7 CL 109* 111* CO2 BUN 17 17 CREATININE 1.32* 1.08 CALCIUM 8.5* 8.1* LFTs: Recent Labs 10/08/24190910/09/2436 AST 309* 282* ALT 51* 45* PROT 6.8 6.2* ALBUMIN 3.1* 2.8* BILITOT 0.6 0.6 ALKPHOS 67 57 Glucose: Recent Labs 10/08/24190910/09/2436 GLUCOSE 159* 135* Procal: Recent Labs 10/08/241909 PROCAL 0.74* CBC: Recent Labs 10/08/24190910/08/24194110/09/2436 WBC 11.1* -- 8.9 HGB 14.2 14.8 12.9 HCT 43.5 -- 40.2 PLT 191 -- 141 MCV 89.1 -- 89.9 RDW 14.3 -- 14.3 ABGs: Recent Labs 10/08/241941 PHART 7.438 [id number] 34.6* PO2ART 105.4* [id number] 22.9 [id number] Ventilator Lactic Acid: Recent Labs 10/08/241909 LACTATE 1.7 INR: No results for input(s): INR in the last 72 hours. Cardiac Injury Profile: Recent Labs 10/08/24190910/09/247 10/09/24 0301 CKTOTAL 2,002* 1,661* 1,333* CKMB -- 110.2* 90.0* Labs in Last 3 months: Lab Results Component Value Date TSH 0.75 10/08/2024 Microbiology- Urine Cx: No results found for: URINECX Blood Cx: Lab Results Component Value Date BLOODCX Blood culture incu (more content not included)... [facility] 10-09-2024 Note [facility] CCU PROGRESS NOTE Patient Name: Lucas Astudillo : 1955 Subjective: Lucas Astudillo is a 68 y.o. female with PMH of HTN, HLD that presented to [facility] on 10/08/2024 from outside facility ([facility]) for post arrest management. Patient presented to [facility] ER earlier today with chest pain that had been ongoing for several days. Was found to have STEMI and was taken to bundle tier and labeler where she had 3 episodes of VT requiring CPR and defibrillation. During intubation, she was noted to have frothing secretions consistent with pulmonary edema. Her RCA was able to successfully stented. In recovery, she had a fever of 101.9F and was requiring pressors. On evaluation at [facility], patient is easily awoken, follows commands. No significant peripheral edema. Lungs are clear, though she does have thick secretions on suctioning. Tolerating being off pressors. Bedside ECHO shows EF of ~30% with apical hypokinesis. Interval History: Patient denies headache, shortness of breath, endores sore thoat Admit intermittent chest pain likely 2/2 CPR yesterday Review of Systems: Review of Systems Constitutional: Negative. HENT: Negative. Eyes: Negative. Respiratory: Negative. Cardiovascular: Negative. Gastrointestinal: Negative. Endocrine: Negative. Genitourinary: Negative. Musculoskeletal: Negative. Neurological: Negative. Inpatient Medications: Scheduled Meds:Scheduled Meds[1] Continuous Infusions:Continuous Meds[2] PRN Meds used in the last 24hr: Objective: Physical Examination: BP 102/63 (BP Location: Right arm, Patient Position: Lying) Pulse 66 Temp 36.9 ?C (98.4 ?F) (Temporal) Resp 22 Wt 92.6 kg (204 lb 2.3 oz) SpO2 99% Intake/Output Summary (Last 24 hours) at 10/09/2024 0629 Last data filed at 10/09/2024 0528 Gross per 24 hour Intake 351 ml Output 585 ml Net -234 ml Physical Exam Constitutional: Appearance: Normal appearance. HENT: Head: Normocephalic. Nose: Nose normal. Eyes: Pupils: Pupils are equal, round, and reactive to light. Cardiovascular: Rate and Rhythm: Normal rate. Abdominal: Palpations: Abdomen is soft. Musculoskeletal: General: Normal range of motion. Cervical back: Normal range of motion. Skin: General: Skin is warm. Neurological: General: No focal deficit present. Mental Status: She is alert. Pertinent Labs: BMP: Lab Results Component Value Date NA 142 10/09/2024 K 3.7 10/09/2024 CL 111 (H) 10/09/2024 CO2 23 10/09/2024 BUN 17 10/09/2024 CREATININE 1.08 10/09/2024 GLUCOSE 135 (H) 10/09/2024 CALCIUM 8.1 (L) 10/09/2024 CBC: Lab Results Component Value Date WBC 8.9 10/09/2024 HGB 12.9 10/09/2024 HCT 40.2 10/09/2024 MCV 89.9 10/09/2024 PLT 141 10/09/2024 Cardiac profile: CK Date Value Ref Range Status 10/09/2024 1,333 (H) 30 - 185 U/L Final 10/09/2024 1,661 (H) 30 - 185 U/L Final 10/08/2024 2,002 (H) 30 - 185 U/L Final CKMB Date Value Ref Range Status 10/09/2024 90.0 (H) <=3.4 ng/mL Final 10/09/2024 110.2 (H) <=3.4 ng/mL Final Coagulation: No results found for: INR, PTT Lipid panel: Lab Results Component Value Date CHOL 127 10/08/2024 HDL 32 (L) 10/08/2024 TRIG 226 (H) 10/08/2024 Other: Lab Results Component Value Date HGBA1C 5.4 10/08/2024 TSH 0.75 10/08/2024 Chest Imaging: CXR: === 10/08/24 === XR CHEST 1 VIEW - Impression - 1. Left lung base small pleural effusion and/or atelectasis. 2. Pulmonary edema and/or infiltrates right lung. 3. Support devices, as above. Report Dictated on Electronically Signed By: Rhonda Carpio MD Electronically Signed Date/Time: 10/08/2024 8:06 PM EDT Cardiac Studies: Telemetry findings reviewed: ECG: Encounter Date: 10/08/24 ECG 12 lead Result Value Heart Rate 65 QRSD Interval 98 QT Interval 485 QTC Interval 505 P Ruby 45 QRS Ruby -36 T Wave Ruby 256 AL Interval 172 Impression Sinus rhythm Inferior infarct, recent Nonspecific T abnormalities, lateral leads Prolonged QT interval Echo: No results found for this or any previous visit. Cath Report: No results found for this or any previous visit. Assessment/Plan HF NYHA Class [] I [] II [] III [] IV []Unable to assess [x] N/A STEMI s/p PCI to RCA - DAPT with aspirin 81mg daily, brilinta 90mg - loaded at [facility] so first dose of aspirin in AM, first dose of brilinta this evening - crestor 40mg daily - will check lipid panel - will check TSH - will check A1C Acute hypoxic respiratory failure Possible flash pulmonary edema vs aspiration pneumonia vs CAP - Received 40mg IV lasix x 2 at [facility] - CXR with edema vs infiltrate in R lung - will obtain pneumonia PCR, RPP, sputum culture - MRSA swab - blood cultures - legionella/strep urine antigens - procal - vent per MICU - monitor off levophed - daily CXR - will treat empirically for aspiration pneumo (more content not included)... [facility] 10-08-2024 Note [facility] Respiratory Care Department Progress Note Spontaneous Awakening Trial Wean Screen SpO2>/=88%: Yes (10/08/242044) FiO2 PEEP HR <140 BPM: Yes (10/08/242044) RR MAP >/= 65mmHg: Yes (10/08/242044) Arterial pH >7.30: Yes (10/08/242044) Safety Screen Spontaneous Breathing Trial (SBT - RT) : Proceed with SBT - No exclusion criteria met (10/08/242044) Spontaneous Breathing Trial Weaning Start Time: 1954 (10/08/242044) Weaning Tidal Volume: 292 mL (10/08/242044) Weaning Respiratory Rate: 27 (10/08/242044) Spontaneous Minute Volume (MV): 7.4 (10/08/242044) Total RSBI: 93 (10/08/242044) Weaning Tolerance: Good (10/08/242044) Weaning Stop Time: 2044 (10/08/242044) Weaning Duration (min): 50 (10/08/242044) Spontaneous Breathing Trial (SBT - RT) Outcome: SBT Passed (10/08/242044) Vent Settings Vent Mode: Spontaneous (10/08/242044) Mandatory Type: VC+ (10/08/241945) Resp Rate (Set): 16 (10/08/241945) Vt (Set, mL): 450 mL (10/08/241945) FiO2 (%): 50 % (10/08/242044) PEEP/CPAP (cm H2O): 8 cm H20 (10/08/242044) Inspiratory Time (sec): 0.9 sec (10/08/241945) Vitals Heart Rate: 80 (10/08/242044) Resp: (!) 26 (10/08/242044) SpO2: 100 % (10/08/242044) Suctioning/Secretions ABG results Recent Labs 10/08/241941 PHART 7.438 [id number] 34.6* PO2ART 105.4* [id number] 22.9 [id number] Ventilator Does this patient meet criteria for termination of mechanical ventilation Yes- Notified physician below Name of physician notified via secure chat or in person : Dr. Huseyin Stewart (NA if patient did not meet criteria) Comments: Thank you for involving Res[facility] in the care of this patient, [facility] 10-08-2024 Consult note Formatting of th is note is different from the original. Images from the original note were not included. Internal Medicine: MICU Initial Consult Name: Lucas Astudillo : 1955(68 y.o.) Date: 10/08/24 Subjective: Chief Complaint: VF arrest HPI: 68oF presented to [facility] ER earlier today with chest pain. This had been going on for several days - pt had attributed it to stopping her reflex meds. Pt was diagnosed with a STEMI in the ER and brought to the bundle tier and labeler. During the case (prior to PCI), pt had 3 episodes of VT requiring CPR and defibrillation. She was subsequently intubated and noted to have frothing secretions consistent with pulmonary edema. The case proceeded and her RCA was stented. While recovering, her temp spiked to 101.9F and she was started on abx. A PICC placed today (10/08) at [facility] for sedation/pressors. She was transferred to [facility] for further management. On exam, she opens her eyes to voice and follows simple commands. There is no significant peripheral edema. Somewhat thick secretions on suctioning. Lungs clear anteriorly. She is currently tolerating being off pressors. A bedside echo shows an EF less than 20%. Medical History[1] Surgical History[2] Family History[3] Social History Socioeconomic History Marital status: Spouse name: Not on file Number of children: Not on file Years of education: Not on file Highest education level: Not on file Occupational History Not on file Tobacco Use Smoking status: Not on file Smokeless tobacco: Not on file Substance and Sexual Activity Alcohol use: Not on file Drug use: Not on file Sexual activity: Not on file Other Topics Concern Not on file Social History Narrative Not on file Social Drivers of Health Financial Resource Strain: Low Risk (12/23/2023) Received from [facility] Overall Financial Resource Strain (CARDIA) Difficulty of Paying Living Expenses: Not hard at all Food Insecurity: No Food Insecurity (12/23/2023) Received from [facility] Hunger Vital Sign Worried About Running Out of Food in the Last Year: Never true Ran Out of Food in the Last Year: Never true Transportation Needs: No Transportation Needs (12/23/2023) Received from [facility] PRAPARE - Transportation Lack of Transportation (Medical): No Lack of Transportation (Non-Medical): No Physical Activity: Insufficiently Active (12/23/2023) Received from [facility] Exercise Vital Sign Days of Exercise per Week: 3 days Minutes of Exercise per Session: 20 min Stress: No Stress Concern Present (12/23/2023) Received from [facility] [place] [facility] - Occupational Stress Questionnaire Feeling of Stress : Only a little Social Connections: Unknown (12/23/2023) Received from [facility] Social Connection and Isolation Panel [NHANES] Frequency of Communication with Friends and Family: Three times a week Frequency of Social Gatherings with Friends and Family: Once a week Attends Protestant Services: Patient declined Active Member of Clubs or Organizations: Patient declined Attends Club or Organization Meetings: Patient declined Marital Status: Intimate Partner Violence: Not on file Housing Stability: Unknown (11/07/2022) Received from [facility] Housing Stability Vital Sign Unable to Pay for Housing in the Last Year: No Number of Places Lived in the Last Year: Not on file Unstable Housing in the Last Year: No Allergies[4] Prior to Admission medications Medication Sig Start Date End Date Taking? Authorizing Provider lisinopril 10 MG tablet Take 10 mg by mouth daily. 08/29/24 02/25/25 Yes Historical Provider, pantoprazole (ProtoNix) 40 MG EC tablet Take 40 mg by mouth daily. 12/14/23 Yes Historical Provider, Objective: Oxygen Delivery: VITALS: There were no vitals taken for this visit. CURRENT PULSE OXIMETRY: Review of Systems Intubated, unable to obtain Constitutional: General Appearance [x]WDWN []Obese []Cachectic []Thin []Ill Eyes: Inspection of Pupils/Irises Pupils round and react: [x]Yes []No Sclera: []Icteric [x]Non-Icteric Inspection of Conjunctiva/Lids Conjunctiva: []Injected [x]Non-Injected Lids: [x]Intact []Lesion Present ENT/Mouth: External Inspection of ears/nose [x] Normal [] Scar/Lesion/Mass Inspection of teeth/lips/gums Dentition: [x][place] Teeth []Dentures Lips/Gums: [x]Intact []Lesion Present Mucosa: [x]Encinal [x]Moist []Dry Neck: External Appearance Overall Appearance: [x]Normal []Lesion/Mass/Crepitus Present Trachea midline: [x]Yes []No Thyroid [x]Normal []Enlarged []Tender []Mass []Absent Respiratory: Respiratory effort []Labored [x]Non-Labored [] Mechanically-Ventilated Auscultation [x]Clear []Crackles []Wheezes []Rhonchi Cardiovascular: Auscultation Rate: [x]Regular []Irregular []Tachycardia []Bradycardia Rhythm: [x]Regular []Irregular Murmur: []Present []Absent Extremities Peripheral Edema: []Present [x]Absent Varicosities: []Present [x]Absent Gastrointestinal: Abdomen Palpation: [x]Soft []Firm []Tender []Non-Tender []Distended [x]Non-distended Mass: []Present []Absent Bowel Sounds: []Present []Absent Hernia: []Present []Absent Liver/Spleen: []Hepatosplenomegaly [x]Organomegaly Absent Musculoskeletal: Inspection of Digits and Nails Cyanosis: []Present [x]Absent Clubbing: []Present []Absent Ischemia: []Present [x]Absent Infection: []Present []Absent Extremities VALLADARES Equally: Except ([]RUE []RLE []LUE []LLE) Strength/Tone: Intact and Normal ([x]RUE [x]RLE [x]LUE [x]LLE) Skin: Inspection [x]Normal []Rash []Lesion []Ulcer Palpation [x]Warm []Cool [x]Dry []Clammy []Nodules []Induration []Skin-tightening Cap-Refill: [] <3 sec [] >3 seconds (delayed) Neurologic: Follows commands in all 4 extremities Total GCS: 15 [x] Sensation grossly intact Psych: Mental Status Alert: []Yes [x] No Oriented: []x0 []X1 []X2 []x3 Mood/Affect []Normal []Flat []Agitated []Depressed []Anxious []Calm [x]Sedated []NAD Recent Labs 10/08/24 1910 WBC 11.1* HGB 14.2 HCT 43.5 PLT 191 MCV 89.1 RDW 14.3 Assessment and Plan: Principal Problem: Cardiac arrest (HCC) Assessment: Acute hypoxic respiratory failure STEMI Pulmonary edema: based on [facility] CXR, flash edema suspected VF arrest: appears to be neuro-intact Hx of HTN Fever: likely relating to [place], rule out infection Plan: Current vent settings. Titrate FiO2 down. Recheck CXR. If flash edema cleared could consider extubation to heated HFNC Send respiratory cultures. Check procal. Unasyn for now. Likely 5 days pending other results. Defer lasix at present based on exam - did receive at [facility] and put out over 1L DAPT per primary updated at bedside DVT Prophylaxis: Lovenox 40 q 24hr - creatinine clearance >30 Disposition: Remain in ICU Status Critical Care Time: 45 minutes Total critical care time caring for this patient with life threatening, unstable organ failure, including direct patient contact, management of life support systems, review of data including imaging and labs, discussions with other team members and physicians, excluding procedures. [1] No past medical history on file. [2] No past surgical history on file. [3] No family history on file. [4] Not on File Carlos Fididel Work Phone: 10-08-2024 Consult note Formatting of th is note is different from the original. Images from the original note were not included. Internal Medicine: MICU Initial Consult Name: Lucas Astudillo : 1955(68 y.o.) Date: 10/08/24 Subjective: Chief Complaint: VF arrest HPI: 68oF presented to [facility] ER earlier today with chest pain. This had been going on for several days - pt had attributed it to stopping her reflex meds. Pt was diagnosed with a STEMI in the ER and brought to the bundle tier and labeler. During the case (prior to PCI), pt had 3 episodes of VT requiring CPR and defibrillation. She was subsequently intubated and noted to have frothing secretions consistent with pulmonary edema. The case proceeded and her RCA was stented. While recovering, her temp spiked to 101.9F and she was started on abx. A PICC placed today (10/08) at [facility] for sedation/pressors. She was transferred to [facility] for further management. On exam, she opens her eyes to voice and follows simple commands. There is no significant peripheral edema. Somewhat thick secretions on suctioning. Lungs clear anteriorly. She is currently tolerating being off pressors. A bedside echo shows an EF less than 20%. Medical History[1] Surgical History[2] Family History[3] Social History Socioeconomic History Marital status: Spouse name: Not on file Number of children: Not on file Years of education: Not on file Highest education level: Not on file Occupational History Not on file Tobacco Use Smoking status: Not on file Smokeless tobacco: Not on file Substance and Sexual Activity Alcohol use: Not on file Drug use: Not on file Sexual activity: Not on file Other Topics Concern Not on file Social History Narrative Not on file Social Drivers of Health Financial Resource Strain: Low Risk (12/23/2023) Received from [facility] Overall Financial Resource Strain (CARDIA) Difficulty of Paying Living Expenses: Not hard at all Food Insecurity: No Food Insecurity (12/23/2023) Received from [facility] Hunger Vital Sign Worried About Running Out of Food in the Last Year: Never true Ran Out of Food in the Last Year: Never true Transportation Needs: No Transportation Needs (12/23/2023) Received from [facility] PRAPARE - Transportation Lack of Transportation (Medical): No Lack of Transportation (Non-Medical): No Physical Activity: Insufficiently Active (12/23/2023) Received from [facility] Exercise Vital Sign Days of Exercise per Week: 3 days Minutes of Exercise per Session: 20 min Stress: No Stress Concern Present (12/23/2023) Received from [facility] [place] [facility] - Occupational Stress Questionnaire Feeling of Stress : Only a little Social Connections: Unknown (12/23/2023) Received from [facility] Social Connection and Isolation Panel [NHANES] Frequency of Communication with Friends and Family: Three times a week Frequency of Social Gatherings with Friends and Family: Once a week Attends Protestant Services: Patient declined Active Member of Clubs or Organizations: Patient declined Attends Club or Organization Meetings: Patient declined Marital Status: Intimate Partner Violence: Not on file Housing Stability: Unknown (11/07/2022) Received from [facility] Housing Stability Vital Sign Unable to Pay for Housing in the Last Year: No Number of Places Lived in the Last Year: Not on file Unstable Housing in the Last Year: No Allergies[4] Prior to Admission medications Medication Sig Start Date End Date Taking? Authorizing Provider lisinopril 10 MG tablet Take 10 mg by mouth daily. 08/29/24 02/25/25 Yes Historical Provider, pantoprazole (ProtoNix) 40 MG EC tablet Take 40 mg by mouth daily. 12/14/23 Yes Historical Provider, Objective: Oxygen Delivery: VITALS: There were no vitals taken for this visit. CURRENT PULSE OXIMETRY: Review of Systems Intubated, unable to obtain Constitutional: General Appearance [x]WDWN []Obese []Cachectic []Thin []Ill Eyes: Inspection of Pupils/Irises Pupils round and react: [x]Yes []No Sclera: []Icteric [x]Non-Icteric Inspection of Conjunctiva/Lids Conjunctiva: []Injected [x]Non-Injected Lids: [x]Intact []Lesion Present ENT/Mouth: External Inspection of ears/nose [x] Normal [] Scar/Lesion/Mass Inspection of teeth/lips/gums Dentition: [x][place] Teeth []Dentures Lips/Gums: [x]Intact []Lesion Present Mucosa: [x]Encinal [x]Moist []Dry Neck: External Appearance Overall Appearance: [x]Normal []Lesion/Mass/Crepitus Present Trachea midline: [x]Yes []No Thyroid [x]Normal []Enlarged []Tender []Mass []Absent Respiratory: Respiratory effort []Labored [x]Non-Labored [] Mechanically-Ventilated Auscultation [x]Clear []Crackles []Wheezes []Rhonchi Cardiovascular: Auscultation Rate: [x]Regular []Irregular []Tachycardia []Bradycardia Rhythm: [x]Regular []Irregular Murmur: []Present []Absent Extremities Peripheral Edema: []Present [x]Absent Varicosities: []Present [x]Absent Gastrointestinal: Abdomen Palpation: [x]Soft []Firm []Tender []Non-Tender []Distended [x]Non-distended Mass: []Present []Absent Bowel Sounds: []Present []Absent Hernia: []Present []Absent Liver/Spleen: []Hepatosplenomegaly [x]Organomegaly Absent Musculoskeletal: Inspection of Digits and Nails Cyanosis: []Present [x]Absent Clubbing: []Present []Absent Ischemia: []Present [x]Absent Infection: []Present []Absent Extremities VALLADARES Equally: Except ([]RUE []RLE []LUE []LLE) Strength/Tone: Intact and Normal ([x]RUE [x]RLE [x]LUE [x]LLE) Skin: Inspection [x]Normal []Rash []Lesion []Ulcer Palpation [x]Warm []Cool [x]Dry []Clammy []Nodules []Induration []Skin-tightening Cap-Refill: [] <3 sec [] >3 seconds (delayed) Neurologic: Follows commands in all 4 extremities Total GCS: 15 [x] Sensation grossly intact Psych: Mental Status Alert: []Yes [x] No Oriented: []x0 []X1 []X2 []x3 Mood/Affect []Normal []Flat []Agitated []Depressed []Anxious []Calm [x]Sedated []NAD Recent Labs 10/08/24 1910 WBC 11.1* HGB 14.2 HCT 43.5 PLT 191 MCV 89.1 RDW 14.3 Assessment and Plan: Principal Problem: Cardiac arrest (HCC) Assessment: Acute hypoxic respiratory failure STEMI Pulmonary edema: based on [facility] CXR, flash edema suspected VF arrest: appears to be neuro-intact Hx of HTN Fever: likely relating to [place], rule out infection Plan: Current vent settings. Titrate FiO2 down. Recheck CXR. If flash edema cleared could consider extubation to heated HFNC Send respiratory cultures. Check procal. Unasyn for now. Likely 5 days pending other results. Defer lasix at present based on exam - did receive at [facility] and put out over 1L DAPT per primary updated at bedside DVT Prophylaxis: Lovenox 40 q 24hr - creatinine clearance >30 Disposition: Remain in ICU Status Critical Care Time: 45 minutes Total critical care time caring for this patient with life threatening, unstable organ failure, including direct patient contact, management of life support systems, review of data including imaging and labs, discussions with other team members and physicians, excluding procedures. [1] No past medical history on file. [2] No past surgical history on file. [3] No family history on file. [4] Not on File documented in this encounter [facility] 10-08-2024 History and physical note Images from the original note were not included. 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 female with PMH of HTN, HLD that presented to [facility] on 10/08/2024 from outside facility ([facility]) for post arrest management. Patient presented to [facility] ER earlier today with chest pain that had been ongoing for several days. Was found to have STEMI and was taken to bundle tier and labeler where she had 3 episodes of VT requiring CPR and defibrillation. During intubation, she was noted to have frothing secretions consistent with pulmonary edema. Her RCA was able to successfully stented. In recovery, she had a fever of 101.9F and was requiring pressors. On evaluation at [facility], patient is easily awoken, follows commands. No significant peripheral edema. Lungs are clear, though she does have thick secretions on suctioning. Tolerating being off pressors. Bedside ECHO shows EF of ~30% with apical hypokinesis. Review of Systems: Review of Systems Unable to perform ROS: Intubated Past Medical History: Medical History[1] Past Surgical History: Surgical History[2] Family History: Family History[3] Social History: Social History[4] Allergies: Allergies[5] Medications: Current Outpatient Medications Medication Instructions lisinopril 10 mg, Daily pantoprazole (PROTONIX) 40 mg, Daily Objective: Physical Examination: There were no vitals taken for this visit. No intake or output data in the 24 hours ending 10/08/241924 Physical Exam Constitutional: General: She is not in acute distress. Eyes: Extraocular Movements: Extraocular movements intact. Conjunctiva/sclera: Conjunctivae normal. Cardiovascular: Rate and Rhythm: Normal rate and regular rhythm. Pulses: Normal pulses. Heart sounds: Normal heart sounds. Pulmonary: Effort: Pulmonary effort is normal. Breath sounds: Normal breath sounds. Abdominal: General: Bowel sounds are normal. Palpations: Abdomen is soft. Tenderness: There is no abdominal tenderness. Musculoskeletal: Right lower leg: No edema. Left lower leg: No edema. Skin: General: Skin is warm and dry. Neurological: Mental Status: She is alert. Laboratory Tests: BMP: No results found for: NA, K, CL, CO2, BUN, CREATININE, GLUCOSE, CALCIUM, MG, PHOS CBC: Lab Results Component Value Date WBC 11.1 (H) 10/08/2024 HGB 14.2 10/08/2024 HCT 43.5 10/08/2024 MCV 89.1 10/08/2024 PLT 191 10/08/2024 Cardiac profile: No results found for: BNP, TROPONINI Coagulation: No results found for: PROTIME, INR, APTT Lipid panel: No results found for: CHOL, HDL, LDLCALC, TRIG Other: No results found for: HGBA1C, TSH Chest Imaging: CXR: CT Chest wo contrast: CTA Chest w and wo contrast: Cardiac Studies: Telemetry findings: n/a Last EK10/08/24 ECG 12-LEAD (Preliminary) This result has not been signed. Information might be incomplete. Impression Sinus rhythm Inferior infarct, recent Abnrm T, consider ischemia, anterolateral lds Last Echo: No results found for this or any previous visit. Last Cath: No results found for this or any previous visit. Last Stress Test: No results found for this or any previous visit. Last EP study: No results found for this or any previous visit. Assessment/Plan HF NYHA Class [] I [] II [] III [] IV []Unable to assess [x] N/A STEMI s/p PCI to RCA - DAPT with aspirin 81mg daily, brilinta 90mg - loaded at [facility] so first dose of aspirin in AM, first dose of brilinta this evening - crestor 40mg daily - will check lipid panel - will check TSH - will check A1C Acute hypoxic respiratory failure Possible flash pulmonary edema vs aspiration pneumonia vs CAP - Received 40mg IV lasix x 2 at [facility] - CXR with edema vs infiltrate in R lung - will obtain pneumonia PCR, RPP, sputum culture - MRSA swab - blood cultures - legionella/strep urine antigens - procal - vent per MICU - monitor off levophed - daily CXR - will treat empirically for aspiration pneumonia with unasyn given thick secretions Acute HFrEF - EF ~ 30% on bedside POCUS with apical hypokinesis - will get formal ECHO in AM HTN - holding home lisinopril 10mg as patient was requiring pressors HLD - patient was not on cholesterol meds at home - will check lipid panel - Goals of Care: Full Code - DVT Prophylaxis: Lovenox 40 q24hr - CrCl >30 - GI Prophylaxis: Protonix daily - Diet: Carb-Control - BMI Classification: There is no height or weight on file to calculate BMI. - Disposition: Admit to CCU. [1] No past medical history on file. [2] No past surgical history on file. [3] No family history on file. [4] [5] Not on File Cosigned by Sally Cedeno MD at 10/09/2024 6:18 PM EDT Associated attestation - Sally Cedeno MD - 10/09/2024 6:18 PM EDT I, Dr. Sally Cedeno, saw and evaluated the patient 10/09/24. I personally obtained the lam and critical portions of the history and physical exam. I reviewed the chart and discussed the patient with the resident. I agree with the resident's medical decision making. In summary, 68-year-old man with hypertension and hyperlipidemia who presented to [facility] early yesterday morning with inferior STEMI complicated by VF arrest in the [employer]. Underwent successful PCI to proximal to mid dominant RCA which was the culprit lesion, no significant disease in the left system. Later in the day developed respiratory failure requiring intubation, and then progressive hypotension concerning for cardiogenic shock, reason for which she was transferred here. Was weaned off pressors on arrival, and extubated. Chest x-ray today consistent with likely aspiration pneumonitis and some pulmonary congestion. Will continue antibiotics for likely aspiration pneumonia, 1 dose of Lasix, DAPT, high intensity statin. If blood pressure remains stable, would slowly introduce GDMT for reported LV dysfunction. Will obtain echocardiogram today. [facility] 10-08-2024 Note Attestation signed by Sally Cedeno MD at 10/09/2024 6:18 PM I, Dr. Sally Cedeno, saw and evaluated the patient 10/09/24. I personally obtained the lam and critical portions of the history and physical exam. I reviewed the chart and discussed the patient with the resident. I agree with the resident's medical decision making. In summary, 68-year-old man with hypertension and hyperlipidemia who presented to [facility] early yesterday morning with inferior STEMI complicated by VF arrest in the [employer]. Underwent successful PCI to proximal to mid dominant RCA which was the culprit lesion, no significant disease in the left system. Later in the day developed respiratory failure requiring intubation, and then progressive hypotension concerning for cardiogenic shock, reason for which she was transferred here. Was weaned off pressors on arrival, and extubated. Chest x-ray today consistent with likely aspiration pneumonitis and some pulmonary congestion. Will continue antibiotics for likely aspiration pneumonia, 1 dose of Lasix, DAPT, high intensity statin. If blood pressure remains stable, would slowly introduce GDMT for reported LV dysfunction. Will obtain echocardiogram today. 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 female with PMH of HTN, HLD that presented to [facility] on 10/08/2024 from outside facility ([facility]) for post arrest management. Patient presented to [facility] ER earlier today with chest pain that had been ongoing for several days. Was found to have STEMI and was taken to bundle tier and labeler where she had 3 episodes of VT requiring CPR and defibrillation. During intubation, she was noted to have frothing secretions consistent with pulmonary edema. Her RCA was able to successfully stented. In recovery, she had a fever of 101.9F and was requiring pressors. On evaluation at [facility], patient is easily awoken, follows commands. No significant peripheral edema. Lungs are clear, though she does have thick secretions on suctioning. Tolerating being off pressors. Bedside ECHO shows EF of ~30% with apical hypokinesis. Review of Systems: Review of Systems Unable to perform ROS: Intubated Past Medical History: Medical History[1] Past Surgical History: Surgical History[2] Family History: Family History[3] Social History: Social History[4] Allergies: Allergies[5] Medications: Current Outpatient Medications Medication Instructions lisinopril 10 mg, Daily pantoprazole (PROTONIX) 40 mg, Daily Objective: Physical Examination: There were no vitals taken for this visit. No intake or output data in the 24 hours ending 10/08/241924 Physical Exam Constitutional: General: She is not in acute distress. Eyes: Extraocular Movements: Extraocular movements intact. Conjunctiva/sclera: Conjunctivae normal. Cardiovascular: Rate and Rhythm: Normal rate and regular rhythm. Pulses: Normal pulses. Heart sounds: Normal heart sounds. Pulmonary: Effort: Pulmonary effort is normal. Breath sounds: Normal breath sounds. Abdominal: General: Bowel sounds are normal. Palpations: Abdomen is soft. Tenderness: There is no abdominal tenderness. Musculoskeletal: Right lower leg: No edema. Left lower leg: No edema. Skin: General: Skin is warm and dry. Neurological: Mental Status: She is alert. Laboratory Tests: BMP: No results found for: NA, K, CL, CO2, BUN, CREATININE, GLUCOSE, CALCIUM, MG, PHOS CBC: Lab Results Component Value Date WBC 11.1 (H) 10/08/2024 HGB 14.2 10/08/2024 HCT 43.5 10/08/2024 MCV 89.1 10/08/2024 PLT 191 10/08/2024 Cardiac profile: No results found for: BNP, TROPONINI Coagulation: No results found for: PROTIME, INR, APTT Lipid panel: No results found for: CHOL, HDL, LDLCALC, TRIG Other: No results found for: HGBA1C, TSH Chest Imaging: CXR: CT Chest wo contrast: CTA Chest w and wo contrast: Cardiac Studies: Telemetry findings: n/a Last EK10/08/24 ECG 12-LEAD (Preliminary) This result has not been signed. Information might be incomplete. Impression Sinus rhythm Inferior infarct, recent Abnrm T, consider ischemia, anterolateral lds Last Echo: No results found for this or any previous visit. Last Cath: No results found for this or any previous visit. Last Stress Test: No results found for this or any previous visit. Last EP study: No results found for this or any previous visit. Assessment/Plan HF NYHA Class [] I [] II [] III [] IV []Unable to assess [x] N/A STEMI s/p PCI t (more content not included)... [facility] 10-08-2024 History and physical note Images from the original note were not included. 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 female with PMH of HTN, HLD that presented to [facility] on 10/08/2024 from outside facility ([facility]) for post arrest management. Patient presented to [facility] ER earlier today with chest pain that had been ongoing for several days. Was found to have STEMI and was taken to bundle tier and labeler where she had 3 episodes of VT requiring CPR and defibrillation. During intubation, she was noted to have frothing secretions consistent with pulmonary edema. Her RCA was able to successfully stented. In recovery, she had a fever of 101.9F and was requiring pressors. On evaluation at [facility], patient is easily awoken, follows commands. No significant peripheral edema. Lungs are clear, though she does have thick secretions on suctioning. Tolerating being off pressors. Bedside ECHO shows EF of ~30% with apical hypokinesis. Review of Systems: Review of Systems Unable to perform ROS: Intubated Past Medical History: Medical History[1] Past Surgical History: Surgical History[2] Family History: Family History[3] Social History: Social History[4] Allergies: Allergies[5] Medications: Current Outpatient Medications Medication Instructions lisinopril 10 mg, Daily pantoprazole (PROTONIX) 40 mg, Daily Objective: Physical Examination: There were no vitals taken for this visit. No intake or output data in the 24 hours ending 10/08/241924 Physical Exam Constitutional: General: She is not in acute distress. Eyes: Extraocular Movements: Extraocular movements intact. Conjunctiva/sclera: Conjunctivae normal. Cardiovascular: Rate and Rhythm: Normal rate and regular rhythm. Pulses: Normal pulses. Heart sounds: Normal heart sounds. Pulmonary: Effort: Pulmonary effort is normal. Breath sounds: Normal breath sounds. Abdominal: General: Bowel sounds are normal. Palpations: Abdomen is soft. Tenderness: There is no abdominal tenderness. Musculoskeletal: Right lower leg: No edema. Left lower leg: No edema. Skin: General: Skin is warm and dry. Neurological: Mental Status: She is alert. Laboratory Tests: BMP: No results found for: NA, K, CL, CO2, BUN, CREATININE, GLUCOSE, CALCIUM, MG, PHOS CBC: Lab Results Component Value Date WBC 11.1 (H) 10/08/2024 HGB 14.2 10/08/2024 HCT 43.5 10/08/2024 MCV 89.1 10/08/2024 PLT 191 10/08/2024 Cardiac profile: No results found for: BNP, TROPONINI Coagulation: No results found for: PROTIME, INR, APTT Lipid panel: No results found for: CHOL, HDL, LDLCALC, TRIG Other: No results found for: HGBA1C, TSH Chest Imaging: CXR: CT Chest wo contrast: CTA Chest w and wo contrast: Cardiac Studies: Telemetry findings: n/a Last EK10/08/24 ECG 12-LEAD (Preliminary) This result has not been signed. Information might be incomplete. Impression Sinus rhythm Inferior infarct, recent Abnrm T, consider ischemia, anterolateral lds Last Echo: No results found for this or any previous visit. Last Cath: No results found for this or any previous visit. Last Stress Test: No results found for this or any previous visit. Last EP study: No results found for this or any previous visit. Assessment/Plan HF NYHA Class [] I [] II [] III [] IV []Unable to assess [x] N/A STEMI s/p PCI to RCA - DAPT with aspirin 81mg daily, brilinta 90mg - loaded at [facility] so first dose of aspirin in AM, first dose of brilinta this evening - crestor 40mg daily - will check lipid panel - will check TSH - will check A1C Acute hypoxic respiratory failure Possible flash pulmonary edema vs aspiration pneumonia vs CAP - Received 40mg IV lasix x 2 at [facility] - CXR with edema vs infiltrate in R lung - will obtain pneumonia PCR, RPP, sputum culture - MRSA swab - blood cultures - legionella/strep urine antigens - procal - vent per MICU - monitor off levophed - daily CXR - will treat empirically for aspiration pneumonia with unasyn given thick secretions Acute HFrEF - EF ~ 30% on bedside POCUS with apical hypokinesis - will get formal ECHO in AM HTN - holding home lisinopril 10mg as patient was requiring pressors HLD - patient was not on cholesterol meds at home - will check lipid panel - Goals of Care: Full Code - DVT Prophylaxis: Lovenox 40 q24hr - CrCl >30 - GI Prophylaxis: Protonix daily - Diet: Carb-Control - BMI Classification: There is no height or weight on file to calculate BMI. - Disposition: Admit to CCU. [1] No past medical history on file. [2] No past surgical history on file. [3] No family history on file. [4] [5] Not on File Cosigned by Sally Cedeno MD at 10/09/2024 6:18 PM EDT Associated attestation - Sally Cedeno MD - 10/09/2024 6:18 PM EDT I, Dr. Sally Cedeno, saw and evaluated the patient 10/09/24. I personally obtained the lam and critical portions of the history and physical exam. I reviewed the chart and discussed the patient with the resident. I agree with the resident's medical decision making. In summary, 68-year-old man with hypertension and hyperlipidemia who presented to [facility] early yesterday morning with inferior STEMI complicated by VF arrest in the [employer]. Underwent successful PCI to proximal to mid dominant RCA which was the culprit lesion, no significant disease in the left system. Later in the day developed respiratory failure requiring intubation, and then progressive hypotension concerning for cardiogenic shock, reason for which she was transferred here. Was weaned off pressors on arrival, and extubated. Chest x-ray today consistent with likely aspiration pneumonitis and some pulmonary congestion. Will continue antibiotics for likely aspiration pneumonia, 1 dose of Lasix, DAPT, high intensity statin. If blood pressure remains stable, would slowly introduce GDMT for reported LV dysfunction. Will obtain echocardiogram today. documented in this encounter [facility] 10-08-2024 Note [facility] Medical Records Department [address] [place] [address] Discharge Summary 10/08/24 1910 MR#: [id number] Acct: [id number] Name: LUCAS ASTUDILLO Rep #: [id number] : 1955 68 From: Mehnaz Gonzalez DO PCP: Dr. Eugenio Peralta MD Status:DIS IN Location: ICU ICU03-1 Providers Date of Admission: 10/08/24 Date of Discharge: 10/08/24 Primary Care Physician: Dr. Eugenio Peralta MD Reason For Visit: STEMI Diagnosis Discharge Diagnosis (1) ST elevation (STEMI) myocardial infarction: Status: Acute Code(s): I21.3 - ST elevation (STEMI) myocardial infarction of unspecified site Qualifiers: Involved coronary artery: right coronary artery Qualified Code(s): I21.11 - ST elevation (STEMI) myocardial infarction involving right coronary artery (2) HFrEF (heart failure with reduced ejection fraction): Status: Acute Code(s): I50.20 - Unspecified systolic (congestive) heart failure (3) Shock: Status: Acute Code(s): R57.9 - Shock, unspecified (4) Chest pain: Status: Acute Code(s): R07.9 - Chest pain, unspecified Plan 1. STEMI due to occlusive coronary artery disease in the right coronary artery #2 acute heart failure with reduced ejection fraction #3 ischemic cardiomyopathy #4 septic and cardiogenic shock Medications at Discharge Home Medications pantoprazole 40 mg tablet,delayed release 40 mg PO DAILY 02/26/19 calcium carbonate 500 mg PO QDAY PRN dyspepsia 01/27/24 cholecalciferol (vitamin D3) 10 mcg (400 unit) capsule 10 mcg PO QDAY PRN supplement 01/27/24 lisinopril 10 mg tablet 10 mg PO QDAY 04/28/24 Hospital Course Operations None Procedures Cardiac catheterization, Intubation and PICC line placement Summary of Care Provided Minutes Spent on Discharge: 31 Hospital Course: This 68-year-old white female presented to the emergency room at [facility] with the chief complaint of chest pain, STEMI alert was called on arrival with the EKG showing ST elevations in the inferior leads. Patient had been complaining of chest pain for the last 2 days that she had attributed to acid reflux disease. Patient was taken emergently to the [employer] [employer], shortly after arrival to the [employer] [employer] [facility] the patient went into pulseless V. tach and was shocked and cardioverted to sinus tachycardia, her pulse ox was noted to be low and decision was made to intubate the patient, patient had significant secretions that made intubation difficult. Patient was placed on the ventilator and a cardiac catheterization was performed which showed 100% blockage in the mid RCA, a drug-eluting stent was placed in the right coronary artery with good result. There was no significant coronary disease in the remaining coronary arteries. Patient was transferred to ICU, later that same day she developed a high temperature and was placed on IV antibiotics with concern for sepsis. Echocardiogram was obtained which showed an ejection fraction of 20%, cardiology felt it was in the patient's best interest to transfer her to a tertiary facility where a mechanical circulatory support device could be used if necessary. [facility] agreed to accept the patient. On 10/08/2024, patient was seen and examined: On examination she was sedated and on the ventilator Vital signs as documented. Skin warm and dry and without overt rashes. Neck without JVD, thyroid appears normal, trachea is midline Lungs clear, normal air movement was noted. Heart exam notable for regular rhythm, normal sounds and absence of murmurs, rubs or gallops. Abdomen unremarkable and without evidence of organomegaly, masses, or abdominal aortic enlargement, bowel sounds are present in all 4 quadrants. Extremities nonedematous, no cyanosis was noted, no clubbing was noted. Neuro: Cranial nerves II through XII are grossly intact, patient is sedated and on the ventilator psych: Patient is sedated and on the ventilator Patient was transferred to [facility] in stable condition on 10/08/2024 Weight / BMI Weight Weight: 89.4 kg Body Mass Index (BMI) 31.8 ABG / Lab / Microbiology Data 10/08/24 03:58 10/08/24 03:58 Laboratory: Laboratory Results - last 24 hr 10/08/24 03:58: WBC 6.9, RBC 4.41, Hgb 12.9, Hct 40.0, MCV 90.7, MCH 29.3, MCHC 32.3, RDW Std Deviation 45.1 H, RDW Coeff of Linda 13.7, Plt Count 165, MPV 11.3, Immature Gran % (Auto) 0.300, Neut % (Auto) 57.2, Lymph % (Auto) 34.9, Collier % (Auto) 5.9, Eos % (Auto) 1.3, Baso % (Auto) 0.4, Absolute Neuts (auto) 4.0, Absolute Lymphs (auto) 2.41, Nucleated RBC % 0, PT 13.2, INR 1.0, APTT 27.4, Sodium 141, Potassium 3.8, Chloride 105, Carbon Dioxide 22.9, Anion Gap 13, BUN 13, Creatinine 1.20, Estim Creat Clear Calc 50.48, Est GFR (MDRD) Non-Af 49 L, BUN/Creatinine Ratio 10.9, Glucose 154 H, Hemoglobin A1c 5.6, Calcium 9.2, Total Creatine Kinase 81, Troponin (more content not included)... [facility] 10-08-2024 Progress note Note Date/Time October 08, 2024 1:01pm [facility] Medical Records Department [address] [place] [id number] Progress Note - Cardiology 10/08/24 1253 MR#: [id number] Acct: [id number] Name: LUCAS ASTUDILLO Rep #:[id number] : 1955 68 From: Eve Rowley MD PCP: Dr. Eugenio Peralta MD Status:ADM I N Location: ICU ICU03-1 Subjective Subjective She is intubated and sedated. She is having fever peak at 103. Right femoral Access site with no hematoma Objective Data Vital Signs: Vital Signs Temp Pulse Resp BP Pulse Ox O2 Del Method FiO2 102.4 F H 94 16 74/59 L 94 Mechanical Ventilator 50 10/08/24 12:00 10/08/24 12:00 10/08/24 12:00 10/08/24 12:00 10/08/24 12:00 10/08/24 12:00 10/08/24 12:00 Oxygen Delivery Method Mechanical Ventilator Weight: 197 lb 1.492 oz Body Mass Index (BMI) 31.8 Intake & Output: Intake and Output for Last 24 Hours 10/06/24 10/07/24 10/08/24 23:59 23:59 23:59 Intake Total 1085.96 / 1085.96 Output Total 1500 / 1500 Balance -414.04 / -414.04 Lab / Micro Data 10/08/24 03:58 10/08/24 03:58 Labs: Laboratory Results - last 24 hr 10/08/24 03:58: WBC 6.9, RBC 4.41, Hgb 12.9, Hct 40.0, MCV 90.7, MCH 29.3, MCHC 32.3, RDW Std Deviation 45.1 H, RDW Coeff of Linda 13.7, Plt Count 165, MPV 11.3, Immature Gran % (Auto) 0.300, Neut % (Auto) 57.2, Lymph % (Auto) 34.9, Collier % (Auto) 5.9, Eos % (Auto) 1.3, Baso % (Auto) 0.4, Absolute Neuts (auto) 4.0, Absolute Lymphs (auto) 2.41, Nucleated RBC % 0, PT 13.2, INR 1.0, APTT 27.4, Sodium 141, Potassium 3.8, Chloride 105, Carbon Dioxide 22.9, Anion Gap 13, BUN 13, Creatinine 1.20, Estim Creat Clear Calc 50.48, Est GFR (MDRD) Non-Af 49 L, BUN/Creatinine Ratio 10.9, Glucose 154 H, Hemoglobin A1c 5.6, Calcium 9.2, TotalCreatine Kinase 81, Troponin T High Sens 48 H, Triglycerides 234 H, TSH 2.500 ABG Data ABG results: ABG 10/08/24 10/08/24 05:51 05:56 Specimen Type ROSA ISELA ART Sample Site Not entered Not entered pH 7.35 Bicarbonate Actual 20.4 L Total CO2 22 Base Excess -5 L O2 Saturation 98 ABG pCO2 36.6 ABG pO2 105 H VBG pH 7.33 VBG pO2 34 VBG HCO3 24 VBG Total CO2 25 VBG O2 Sat (Calc) 61 VBG Base Excess -2 L POC Mix VBG pCO2 Pt Tmp 45.9 O2 Delivery Device Not entered Not entered Vent Mode Not entered Cardiology Labs/Tests 10/08/24 03:58: WBC 6.9, RBC 4.41, Hgb 12.9, Hct 40.0, MCV 90.7, MCH 29.3, MCHC 32.3, Plt Count 165, MPV 11.3, Immature Gran % (Auto) 0.300, Neut % (Auto) 57.2,Lymph % (Auto) 34.9, Collier % (Auto) 5.9, Eos % (Auto) 1.3, Baso % (Auto) 0.4, Absolute Neuts (auto) 4.0, Nucleated RBC % 0, PT 13.2, INR 1.0, APTT 27.4, Sodium 141, Potassium 3.8, Chloride 105, Carbon Dioxide 22.9, Anion Gap 13, BUN 13, Creatinine 1.20, Est GFR (MDRD) Non-Af 49 L, BUN/Creatinine Ratio 10.9, Glucose 154 H, Hemoglobin A1c 5.6, Calcium 9.2, Triglycerides 234 H 10/08/24 05:51: VBG pH 7.33, VBG pO2 34, VBG HCO3 24, VBG O2 Sat (Calc) 61, VBG Base Excess -2 L 10/08/24 05:56: pH 7.35, Bicarbonate Actual 20.4 L, Base Excess -5 L, O2 Saturation 98, ABG pCO2 36.6, ABG pO2 105 H Rhythm: EKG: ECHO: Stress Test: Cardiac Cath: PCI: CT Surgery: Holter monitor: EPS: PPM: CXR: Chest CT Scan: Radiography Diagnostic Testing: Radiology Impression Echocardiogram 10/08/24 06:54 Interpretation Summary The LV ejection fraction is 20 %. Severe segmental systolic dysfunction (see wall motion). Stage 3 diastolic dysfunction. No collapse of the inferior vena cava. Ordering Physician: Dylan Soni Performed By: Mami Harris, MATILDA Chest X-Ray 10/08/24 07:05 IMPRESSION: 1. Support devices as described. 2. Fluffy bilateral airspace opacities, compatible with pneumonitis/pneumonia. Reading Location: [facility] KUB X-Ray 10/08/24 07:05 IMPRESSION: Gastric tube placement as described. Reading Location: [facility] Physical Exam Const Constitutional Narrative: Sedated and intubated Chest Chest Narrative: Decreased breath sounds bilateral Resp Auscultation: breath sounds absent Cardio no murmurs Cardio Narrative: Sinus tachycardia Jugular Venous Distention: JVD to the level of the angle of the jaw Extremity normal to inspection General Extremity: edema Assessment & Plan Assessment/Plan (1) ST elevation (STEMI) myocardial infarction: QUALIFIERS: Involved coronary artery: right coronary artery Qualified Code(s): I21.11 - ST elevation (STEMI) myocardial infarction involving right coronary artery PLAN: Status post IVUS guided PCI to RCA with 2 overlapping drug-eluting stent. Continue with aspirin 81 mg daily Continue with atorvastatin 80 mg daily Continue with Brilinta 90 mg twice daily (2) HFrEF (heart failure with reduced ejection fraction): PLAN: Ischemic cardiomyopathy with a EF of 25% Introduce GDMT once her blood pressure improves. Continue with IV Lasix 40 mg daily. (3) Shock: PLAN: Mixed septic and cardiogenic. Obtain blood cultures. Start empirical antibiotics with Vancomycin and Zosyn. Start Levophed Obtain an A-line, preferably switch femoral venous line to IJ. Recommend transferring care to higher acuity facility 10/08/24 1301 <Electronically signed by Eve Rowley MD> Cosigner Signature (if applicable): CC: ~ Signed [facility] Work Phone: 1(122) 365-404307-12-2025 Progress note [facility] Medical Records Department [address] [place] [address] Progress Note - Cardiology 10/08/24 1253 MR#: [id number] Acct: [id number] Name: LUCAS ASTUDILLO Rep #:[id number] : 1955 68 From: Eve Rowley MD PCP: Dr. Eugenio Peralta MD Status:ADM I N Location: ICU ICU03-1 Subjective Subjective She is intubated and sedated. She is having fever peak at 103. Right femoral Access site with no hematoma Objective Data Vital Signs: Vital Signs Temp Pulse Resp BP Pulse Ox O2 Del Method FiO2 102.4 F H 94 16 74/59 L 94 Mechanical Ventilator 50 10/08/24 12:00 10/08/24 12:00 10/08/24 12:00 10/08/24 12:00 10/08/24 12:00 10/08/24 12:00 10/08/24 12:00 Oxygen Delivery Method Mechanical Ventilator Weight: 197 lb 1.492 oz Body Mass Index (BMI) 31.8 Intake & Output: Intake and Output for Last 24 Hours 10/06/24 10/07/24 10/08/24 23:59 23:59 23:59 Intake Total 1085.96 / 1085.96 Output Total 1500 / 1500 Balance -414.04 / -414.04 Lab / Micro Data 10/08/24 03:58 10/08/24 03:58 Labs: Laboratory Results - last 24 hr 10/08/24 03:58: WBC 6.9, RBC 4.41, Hgb 12.9, Hct 40.0, MCV 90.7, MCH 29.3, MCHC 32.3, RDW Std Deviation 45.1 H, RDW Coeff of Linda 13.7, Plt Count 165, MPV 11.3, Immature Gran % (Auto) 0.300, Neut % (Auto) 57.2, Lymph % (Auto) 34.9, Collier % (Auto) 5.9, Eos % (Auto) 1.3, Baso % (Auto) 0.4, Absolute Neuts (auto) 4.0, Absolute Lymphs (auto) 2.41, Nucleated RBC % 0, PT 13.2, INR 1.0, APTT 27.4, Sodium 141, Potassium 3.8, Chloride 105, Carbon Dioxide 22.9, Anion Gap 13, BUN 13, Creatinine 1.20, Estim Creat Clear Calc 50.48, Est GFR (MDRD) Non-Af 49 L, BUN/Creatinine Ratio 10.9, Glucose 154 H, Hemoglobin A1c 5.6, Calcium 9.2, TotalCreatine Kinase 81, Troponin T High Sens 48 H, Triglycerides 234 H, TSH 2.500 ABG Data ABG results: ABG 10/08/24 10/08/24 05:51 05:56 Specimen Type ROSA ISELA ART Sample Site Not entered Not entered pH 7.35 Bicarbonate Actual 20.4 L Total CO2 22 Base Excess -5 L O2 Saturation 98 ABG pCO2 36.6 ABG pO2 105 H VBG pH 7.33 VBG pO2 34 VBG HCO3 24 VBG Total CO2 25 VBG O2 Sat (Calc) 61 VBG Base Excess -2 L POC Mix VBG pCO2 Pt Tmp 45.9 O2 Delivery Device Not entered Not entered Vent Mode Not entered Cardiology Labs/Tests 10/08/24 03:58: WBC 6.9, RBC 4.41, Hgb 12.9, Hct 40.0, MCV 90.7, MCH 29.3, MCHC 32.3, Plt Count 165, MPV 11.3, Immature Gran % (Auto) 0.300, Neut % (Auto) 57.2,Lymph % (Auto) 34.9, Collier % (Auto) 5.9,Eos % (Auto) 1.3, Baso % (Auto) 0.4, Absolute Neuts (auto) 4.0, Nucleated RBC % 0, PT 13.2, INR 1.0, APTT 27.4, Sodium 141, Potassium 3.8, Chloride 105, Carbon Dioxide 22.9, Anion Gap 13, BUN 13, Creatinine 1.20, Est GFR (MDRD) Non-Af 49 L, BUN/Creatinine Ratio 10.9, Glucose 154 H, Hemoglobin A1c 5.6, Calcium 9.2, Triglycerides 234 H 10/08/24 05:51: VBG pH 7.33, VBG pO2 34, VBG HCO3 24, VBG O2 Sat (Calc) 61, VBG Base Excess -2 L 10/08/24 05:56: pH 7.35, Bicarbonate Actual 20.4 L, Base Excess -5 L, O2 Saturation 98, ABG pCO2 36.6, ABG pO2 105 H Rhythm: EKG: ECHO: Stress Test: Cardiac Cath: PCI: CT Surgery: Holter monitor: EPS: PPM: CXR: Chest CT Scan: Radiography Diagnostic Testing: Radiology Impression Echocardiogram 10/08/24 06:54 Interpretation Summary The LV ejection fraction is 20 %. Severe segmental systolic dysfunction (see wall motion). Stage 3 diastolic dysfunction. No collapse of the inferior vena cava. Ordering Physician: Dylan Soni Performed By: Mami Harris RDCS Chest X-Ray 10/08/24 07:05 IMPRESSION: 1. Support devices as described. 2. Fluffy bilateral airspace opacities, compatible with pneumonitis/pneumonia. Reading Location: [facility] X-Ray 10/08/24 07:05 IMPRESSION: Gastric tube placement as described. Reading Location: [facility] Physical Exam Const Constitutional Narrative: Sedated and intubated Chest Chest Narrative: Decreased breath sounds bilateral Resp Auscultation: breath sounds absent Cardio no murmurs Cardio Narrative: Sinus tachycardia Jugular Venous Distention: JVD to the level of the angle of the jaw Extremity normal to inspection General Extremity: edema Assessment & Plan Assessment/Plan (1) ST elevation (STEMI) myocardial infarction: QUALIFIERS: Involved coronary artery: right coronary artery Qualified Code(s): I21.11 - ST elevation (STEMI) myocardial infarction involving right coronary artery PLAN: Status post IVUS guided PCI to RCA with 2 overlapping drug-eluting stent. Continue with aspirin 81 mg daily Continue with atorvastatin 80 mg daily Continue with Brilinta 90 mg twice daily (2) HFrEF (heart failure with reduced ejection fraction): PLAN: Ischemic cardiomyopathy with a EF of 25% Introduce GDMT once her blood pressure improves. Continue with IV Lasix 40 mg daily. (3) Shock: PLAN: Mixed septic and cardiogenic. Obtain blood cultures. Start empirical antibiotics with Vancomycin and Zosyn. Start Levophed Obtain an A-line, preferably switch femoral venous line to IJ. Recommend transferring care to higher acuity facility 10/08/24 1301 Cosigner Signature (if applicable): CC: ~ Signed [facility]07-12-2025 History and physical note Author Dylan Soni [facility] Note Date/Time October 08, 2024 7:36 am [facility] Medical Records Department [address] [place] [address] H&P Exam - Hospitalist 10/08/24 0539 MR#: [id number] Acct: [id number] Name: LUCAS ASTUDILLO Rep #:[id number] : 1955 68 From: Dylan ramirez DO PCP: Dr. Eugenio Peralta MD Status:ADM I N Location: ICU ICU03-1 HPI - General General Date of Admission: 10/08/24 Date of Service: 10/08/24 Chief Complaint: Chest pain HPI Narrative LUCAS ASTUDILLO, is a 68 F who presented to [facility] ED on 10/08/2024 with chest pain. STEMI alert called on arrival. EKG showed in the inferior leads. Patient reported ongoing chest pain for the past 2 days that she attributed to acid reflux. She woke up this morning around 3 AM with severechest pain and her brought her to the ED for further evaluation. Patient was taken urgently to the [facility]. Shortly after arrival to the [facility] [employer] [facility] patient went into pulseless V. tach. She was shocked with 300 J with conversion back to sinus tachycardia. Shortly after was found on pulse ox to have oxygen saturations in the 50s. Decision was made to intubate the patient. Patient had significant secretions that made the intubation difficult. She was successfully intubated by Dr. Crooks with positive breath sounds noted bilaterally and color change noted. Oxygen saturations improved into the low 80s with bagging. She was then placed on the ventilator and saturations improved to the mid to high 80s. 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 LAD and left circumflex with no significant CAD noted. Patient was then taken to the ICU for further management. PFSH Home Medications ?Medication ?Instructions ?Recorded ?Last Taken ?Type pantoprazole 40 mg tablet,delayed 40 mg PO DAILY 02/26 Unknown History release calcium carbonate 500 mg PO QDAY PRN dyspepsia 10/30/24 Unknown History cholecalciferol (vitamin D3) 10 10 [...] Social History Smoking Status: Never smoker ROS Review of Systems ROS Unobtainable: due to endotracheal tube Vital Signs Vital Signs Vital Signs: 10/08/24 03:57 10/08/24 04:06 10/08/24 04:18 Temperature 98.1 F 98.9 F Temperature Source Oral Pulse Rate 73 57 L Respiratory Rate 18 18 Blood Pressure 164/106 H 167/96 H Blood Pressure Mean 125 119 Pulse Ox 98 98 100 Oxygen Delivery Method Room Air Nasal Cannula Weight Weight: 89.2 kg Body Mass Index (BMI) 31.7 Physical Exam Const Constitutional Narrative: Intubated and sedated. Not following commands. Class I obesity. HEENT normocephalic and head/scalp atraumatic HEENT Narrative: ET tube in place. Neck supple Resp Resp Narrative: Significant crackles noted bilaterally throughout. No wheezing noted. Cardio no murmurs Cardio Narrative: Tachycardic, regular rhythm. GI normal to inspection, nondistended, normoactive bowel sounds, soft to palpation,non-tender and non-distended Extremity normal to inspection Results Lab / Micro Data 10/08/24 03:58 10/08/24 03:58 Labs: Laboratory Results - last 24 hr 10/08/24 03:58: WBC 6.9, RBC 4.41, Hgb 12.9, Hct 40.0, MCV 90.7, MCH 29.3, MCHC 32.3, RDW Std Deviation 45.1 H, RDW Coeff of Linda 13.7, Plt Count 165, MPV 11.3, Immature Gran % (Auto) 0.300, Neut % (Auto) 57.2, Lymph % (Auto) 34.9, Collier % (Auto) 5.9, Eos % (Auto) 1.3, Baso % (Auto) 0.4, Absolute Neuts (auto) 4.0, Absolute Lymphs (auto) 2.41, Nucleated RBC % 0, PT 13.2, INR 1.0, APTT 27.4, Sodium 141, Potassium 3.8, Chloride 105, Carbon Dioxide 22.9, Anion Gap 13, BUN 13, Creatinine 1.20, Estim Creat Clear Calc 50.48, Est GFR (MDRD) Non-Af 49 L, BUN/Creatinine Ratio 10.9, Glucose 154 H, Calcium 9.2, Troponin T High Sens 48 H Assessment & Plan Assessment/Plan (1) ST elevation myocardial infarction (STEMI) of inferior wall: (2) Cardiac arrest: (3) Acute hypoxic respiratory failure: PLAN: Plan Patient is a 68-year-old female who presented to [facility] ED on 10/08/2024 with chest pain. 1. STEMI with acute hypoxic respiratory failure secondary to acute CHF exacerbation ? Admit under inpatient status to ICU. Cardiology following. [employer] consulted. Presented with chest pain, EKG showed inferior STEMI. Left heart cath with 100% mid RCA lesion with drug-eluting stent x 1 placed with good result. Minimal disease in LAD and left circumflex. Had cardiac arrest as below and acute respiratory failure during left heart cath. Was emergently intubated in the [facility] [employer] [facility]. High filling pressures noted during cath and patientwith copious frothy secretions during intubation consistent with flash pulmonaryedema. Stat echo ordered. Will treat with IV Lasix 40 mg twice daily for now. Lipid panel, A1c and TSH ordered. Appreciate further cardiology recommendations. 2. Pulseless V. tach cardiac arrest ? Patient had pulseless V. tach arrest in the [employer]. Cardiac defibrillation with 300 J x 1 done with return to sinus tachycardia. No chest compressions were done. Further management as above. Chronic medical conditions: ? Class I obesity: BMI 31 on admit. Complicates hospital course, care and prognosis. ? GERD: Continue home PPI. ? Lower extremity varicose veins: Continue outpatient follow-up. DVT prophylaxis: Heparin subcu CODE STATUS: Full code, verified Expected disposition: TBD Total clinical time spent by myself addressing the patient's medical issues, reviewing all the data, and collaborating with patient's care team: 75 minutes. Charges/Coding Visit Charges Inpatient E&M: 56786 Init Hosp L3 10/08/24 0736 <Electronically signed by Dylan Soni DO> Cosigner Signature (if applicable): CC: Dr. Dylan Soni DO; Dr. Eugenio Peralta MD~ Signed [facility] Work Phone: [phone]) 498-445607-12-2025 Evaluation note* Diagnosis Onset Date Resolution Status Admit Date Acute hypoxic respiratory failure ac tesha October 08, 2024 6:49am Cardiac arrest acute October 08, 2024 6:49am Chest pain acute October 08 6:49am Flash pulmonary edema acute Sep 6:49am HFrEF (heart failure with re duced ejection fraction) acute October 08 6:49am Shock acute October 08 6:49am ST elevation (STEMI) myocard ial infarction acute October 08, 2024 6:49am ST elevation myocardial infarction (STEMI) of inferior wall acute October 08, 2024 6:49am [facility] Work Phone: [phone]) 989-283107-12-2025 Evaluation note* Diagnosis Onset Date Resolution Status Admit Date ST elevation (STEMI) myocardial infarction acute October 08, 2024 6:49am Acute hypoxic respiratory failure inactive October 08, 2024 6:49am Cardiac arrest inactive October 08, 2024 6:49am Chest pain inactive October 08 6:49am Flash pulmonary edema inactive Sep 6:49am HFrEF (heart failure with reduced ejection fraction) inactive October 08, 2024 6:49am Shock inactive October 08 6:49am ST elevation myocardial infarction (STEMI) of inferior wall October 08, 2024 inactive October 08, 2024 6:49am Cardiomyopathy, ischemic acute October 20, 2024 9:21am ST elevation (STEMI) myocardial infarction acute October 20, 2024 9:21am Stented coronary artery October 08, 2024 chronic October 20, 2024 9:21am [facility] Work Phone: 1(911) 357-867107-12-2025 Consult note Author Eve Rowley [facility] Note Date/Time October 08, 2024 6:31 am [facility] Medical Records Department [address] [place] [address] Consultation - Cardiology 10/08/24 0431 MR#: [id number] Acct: [id number] Name: LUCAS ASTUDILLO Rep #:[id number] : 1955 68 From: Eve Rowley MD PCP: Dr. Eugenio Peralta MD Status:ADM I N Location: ICU ICU03-1 Assessment & Plan Assessment/Plan (1) ST elevation myocardial infarction (STEMI) of inferior wall: PLAN: Status post PCI to RCAx2 JACINTA Continue with Aspirin 81 mg daily. Continue with Brilinta 90 mg twice daily. Continue with atorvastatin 40 mg daily. Obtain an echocardiogram. (2) Flash pulmonary edema: PLAN: IV Furosamide 40 mg daily (3) Acute hypoxic respiratory failure: PLAN: Due to pulmonary edema IV lasix (4) Cardiac arrest: PLAN: Vfib cardiac arrest in the setting of RCA stemi status post [id number] 1 round of CPR status post JACINTA to RCA HPI Consult Data Date of Consult: 10/08/24 HPI Narrative HPI Narrative: LUCAS ASTUDILLO, is a 68 F with PMH of Bilateral varicose veins who presented to the emergency department with a chief complaint of chest pain. She states that for the last few days she has had chest pain and notes that originally she had aprocedure on her tooth therefore she stopped taking her acid reflux medication and she thought this was her acid reflux. States that around 3 AM she woke up with severe pain which prompted her to come here for further evaluation management. Her EKG showed inferior ST elevations. PFSH Home Medications ?Medication ?Instructions ?Recorded ?Last Taken [...] Social History Smoking Status: Never smoker ROS Review of Systems ROS Unobtainable: due to endotracheal tube Physical Exam HEENT normocephalic Eyes PERRL Resp Auscultation: breath sounds absent bilateral Cardio regular rate Jugular Venous Distention: JVD Back/Spine no CVA tenderness Extremity normal to inspection Skin no rashes or lesions noted Risk Stratification Risk Stratification Applicable: Yes Age >/= 65: Yes >/= 3 CAD Risk Factors (HTN, HLD, DM, family hx of CAD, or current smoker): Yes Aspirin Use in the Past 7 Days: Yes Severe Angina (>/= episodes in 24 hours): Yes EKG ST Changes >/= 0.5mm: Yes Positive Cardiac Marker: Yes BASIM Risk Stratification Score: 6 BASIM % Risk: 41% Risk Objective Data Vital Signs: Vital Signs Temp Pulse Resp BP Pulse Ox O2 Del Method 98.9 F 57 L 18 167/96 H 100 Nasal Cannula 10/08/24 04:18 10/08/24 04:18 10/08/24 04:18 10/08/24 04:18 10/08/24 04:18 10/08/24 04:06 Oxygen Delivery Method Nasal Cannula Weight: 196 lb 10.437 oz Body Mass Index (BMI) 31.7 Lab / Micro Data 10/08/24 03:58 10/08/24 03:58 Labs: Laboratory Results - last 24 hr 10/08/24 03:58: WBC 6.9, RBC 4.41, Hgb 12.9, Hct 40.0, MCV 90.7, MCH 29.3, MCHC 32.3, RDW Std Deviation 45.1 H, RDW Coeff of Linda 13.7, Plt Count 165, MPV 11.3, Immature Gran % (Auto) 0.300, Neut % (Auto) 57.2, Lymph % (Auto) 34.9, Collier % (Auto) 5.9, Eos % (Auto) 1.3, Baso % (Auto) 0.4, Absolute Neuts (auto) 4.0, Absolute Lymphs (auto) 2.41, Nucleated RBC % 0, PT 13.2, INR 1.0, APTT 27.4 Cardiology Labs/Tests 10/08/24 03:58: WBC 6.9, RBC 4.41, Hgb 12.9, Hct 40.0, MCV 90.7, MCH 29.3, MCHC 32.3, Plt Count 165, MPV 11.3, Immature Gran % (Auto) 0.300, Neut % (Auto) 57.2,Lymph % (Auto) 34.9, Collier % (Auto) 5.9, Eos % (Auto) 1.3, Baso % (Auto) 0.4, Absolute Neuts (auto) 4.0, Nucleated RBC % 0, PT 13.2, INR 1.0, APTT 27.4 Rhythm: EKG: ECHO: Stress Test: Cardiac Cath: PCI: CT Surgery: Holter monitor: EPS: PPM: CXR: Chest CT Scan: 10/08/24 0631 <Electronically signed by Eve Rowley MD> Cosigner Signature (if applicable): CC: Dr. Eugenio Peralta MD~ Signed [facility] Work Phone: 1(260) 306-966107-12-2025 Discharge summary Author Brando Crooks [facility] Note Date/Time October 08, 2024 6:04 am [facility] Medical Records Department [address] [place] [address] Emergency Department Summary 10/08/24 MR#: [id number] Acct: [id number] Name: LUCAS ASTUDILLO Rep #:[id number] : 1955 68 From: Brando Crooks DO PCP: Dr. Eugenio Peralta MD Status:ADM I N Location: ICU ICU03-1 HPI History of Present Illness Chief Complaint: Chest [...] to come here for further evaluation management. [facility] Home Medications ?Medication ?Instructions ?Recorded ?Last [...] follow commands knew that she was at [facility] the year is 2024 Skin: Warm, dry, [...] looked at the EKG showed inferior wall WA. I called STEMI alert immediately. I ordered [address] Rowley was notified of the inferior wall WA and STEMI. He is also recommending heparin [...] Patient was ultimately taken down to the [facility] [employer] [facility] for her STEMI. While here in the emergency department ARBEN DAMON was called. 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 My hands were washed daily prior to the procedure. Woresurgical cap, mask with protective eyewear, gown and gloves throughout the procedure. The patient was placed on a laboratory monitor including continuous pulse oximetry. Rapid sequence intubation [...] % (Auto) 57.2 Lymph % (Auto) 34.9 Collier % (Auto) 5.9 Eos % (Auto) 1.3 [...] Eugenio Peralta Disposition Disposition: Acute Care Hospital [facility] What to do if you have Problems For any increased pain, shortness of breath, bleeding, nausea or vomiting, chestpain, or any unexpected problems, contact your Primary Care Provider. Call [facility] ([phone]) or report to the closest Emergency Room. Call 911 if necessary. 10/08/24 0604 <Electronically signed by Brando Crooks DO> Cosigner Signature (if applicable): CC: Dr. Eugenio Peralta MD ~ Signed [facility] Work Phone: 1(601) 124-354607-12-2025 History and physical note [facility] Medical Records Department [address] [place] [address] H&P Exam - Hospitalist 10/08/24 0539 MR#: [id number] Acct: [id number] Name: LUCAS ASTUDILLO Rep #:[id number] : 1955 68 From: Dylan ramirez DO PCP: Dr. Eugenio Peralta MD Status:ADM I N Location: ICU ICU03-1 HPI - General General Date of Admission: 10/08/24 Date of Service: 10/08/24 Chief Complaint: Chest pain HPI Narrative LUCAS ASTUDILLO, is a 68 F who presented to [facility] ED on 10/08/2024 with chest pain. STEMI alert called on arrival. EKG showed in the inferior leads. Patient reported ongoing chest pain for the past 2 days that she attributed to acid reflux. She woke up this morning around 3 AM with severechest pain and her brought her to the ED for further evaluation. Patient was taken urgently to the [facility]. Shortly after arrival to the [facility] [employer] [facility] patient went into pulseless V. tach. She was shocked with 300 J with conversion back to sinus tachycardia. Shortly after was found on pulse ox to have oxygen saturations in the 50s. Decision was made to intubate the patient. Patient had significant secretions that made the intubation difficult. She was successfully intubated by Dr. Crooks with positive breath sounds noted bilaterally and color change noted. Oxygen saturations improved into the low 80s with bagging. She was then placed on the ventilator and saturations improved to the mid to high 80s. 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 LAD and left circumflex with no significant CAD noted. Patient was then taken to the ICU for further management. PFSH Home Medications ?Medication ?Instructions ?Recorded ?Last Taken [...] Social History Smoking Status: Never smoker ROS Review of Systems ROS Unobtainable: due to endotracheal tube Vital Signs Vital Signs Vital Signs: 10/08/24 03:57 10/08/24 04:06 10/08/24 04:18 Temperature 98.1 F 98.9 F Temperature Source Oral Pulse Rate 73 57 L Respiratory Rate 18 18 Blood Pressure 164/106 H 167/96 H Blood Pressure Mean 125 119 Pulse Ox 98 98 100 Oxygen Delivery Method Room Air Nasal Cannula Weight Weight: 89.2 kg Body Mass Index (BMI) 31.7 Physical Exam Const Constitutional Narrative: Intubated and sedated. Not following commands. Class I obesity. HEENT normocephalic and head/scalp atraumatic HEENT Narrative: ET tube in place. Neck supple Resp Resp Narrative: Significant crackles noted bilaterally throughout. No wheezing noted. Cardio no murmurs Cardio Narrative: Tachycardic, regular rhythm. GI normal to inspection, nondistended, normoactive bowel sounds, soft to palpation,non-tender and non-distended Extremity normal to inspection Results Lab / Micro Data 10/08/24 03:58 10/08/24 03:58 Labs: Laboratory Results - last 24 hr 10/08/24 03:58: WBC 6.9, RBC 4.41, Hgb 12.9, Hct 40.0, MCV 90.7, MCH 29.3, MCHC 32.3, RDW Std Deviation 45.1 H, RDW Coeff of Linda 13.7, Plt Count 165, MPV 11.3, Immature Gran % (Auto) 0.300, Neut % (Auto) 57.2, Lymph % (Auto) 34.9, Collier % (Auto) 5.9, Eos % (Auto) 1.3, Baso % (Auto) 0.4, Absolute Neuts (auto) 4.0, Absolute Lymphs (auto) 2.41, Nucleated RBC % 0, PT 13.2, INR 1.0, APTT 27.4, Sodium 141, Potassium 3.8, Chloride 105, Carbon Dioxide 22.9, Anion Gap 13, BUN 13, Creatinine 1.20, Estim Creat Clear Calc 50.48, Est GFR (MDRD) Non-Af 49 L, BUN/Creatinine Ratio 10.9, Glucose 154 H, Calcium9.2, Troponin T High Sens 48 H Assessment & Plan Assessment/Plan (1) ST elevation myocardial infarction (STEMI) of inferior wall: (2) Cardiac arrest: (3) Acute hypoxic respiratory failure: PLAN: Plan Patient is a 68-year-old female who presented to [facility] ED on 10/08/2024 with chest pain. 1. STEMI with acute hypoxic respiratory failure secondary to acute CHF exacerbation ? Admit under inpatient status to ICU. Cardiology following. [employer] consulted. Presented with chest pain, EKG showed inferior STEMI. Left heart cath with 100% mid RCA lesion with drug-eluting stent x 1 placed with good result. Minimal disease in LAD and left circumflex. Had cardiac arrest as below and acute respiratory failure during left heart cath. Was emergently intubated in the [employer].High filling pressures noted during cath and patientwith copious frothy secretions during intubation consistent with flash pulmonaryedema. Stat echo ordered. Will treat with IV Lasix 40 mg twice daily for now. Lipid panel, A1c and TSH ordered. Appreciate further cardiology recommendations. 2. Pulseless V. tach cardiac arrest ? Patient had pulseless V. tach arrest in the [employer]. Cardiac defibrillation with 300 J x 1 done with return to sinus tachycardia. No chest compressions were done. Further management as above. Chronic medical conditions: ? Class I obesity: BMI 31 on admit. Complicates hospital course, care and prognosis. ? GERD: Continue home PPI. ? Lower extremity varicose veins: Continue outpatient follow-up. DVT prophylaxis: Heparin subcu CODE STATUS: Full code, verified Expected disposition: TBD Total clinical time spent by myself addressing the patient's medical issues, reviewing all the data, and collaborating with patient's care team: 75 minutes. Charges/Coding Visit Charges Inpatient E&M: 78518 Init Hosp L3 10/08/24 0736 Cosigner Signature (if applicable): CC: Dr. Dylan Soni DO; Dr. Eugenio Peralta MD~ Signed [facility]07-12-2025 Radiology Diagnostic study note [facility] Imaging Services [address] [place] [place] [address] Abdomen Single View (Portable) MR#: [id number] Acct: [id number] Name: LUCAS ASTUDILLO Rep #: [id number] 21 : 1955 F 68 From: Janel Bhardwaj MD PCP: Dr. Eugenio Peralta MD Status: ADM I N Study:Abdomen Single View (Portable) Date of Exam: 10/08/24 Exam# [id number] Ordering Dr: Dylan Galindo DO PROCEDURE: ABDOMEN SINGLE VIEW (PORTABLE) 10/08/2024 REASON FOR EXAM: POST INTUBATION TECHNIQUE: ABDOMEN SINGLE VIEW (PORTABLE) COMPARISON: None. FINDINGS: Hardware: Partially visualized gastric tube with side hole and tip overlying theexpected region of the body of the stomach. Bowel gas: The visualized bowel loops are normal caliber. Bones: There are degenerative changes of the spine. Other: See same day chest radiograph for discussion of bilateral pulmonary opacities. RAD/Abdomen Single View (Portable) IMPRESSION: Gastric tube placement as described. Reading Location: [facility] CC: Dr. Dylan Soni DO; Dr. Eugenio Peralta MD ~ Umbrella Mender: Signed [facility]07-12-2025 Radiology Diagnostic study note [facility] Imaging Services [address] [place], [place] [id number] Chest 1 View (Portable) MR#: [id number] Acct: [id number] Name: LUCAS ASTUDILLO Rep #: [id number] 20 : 1955 F 68 From: Janel Bhardwaj MD PCP: Dr. Eugenio Peralta MD Status: ADM I N Study:Chest 1 View (Portable) Date of Exam: 10/08/24 Exam# [id number] Ordering Dr: Dylan Galindo DO PROCEDURE: CHEST 1 VIEW (PORTABLE) 10/08/2024 REASON FOR EXAM: INTUBATION TECHNIQUE: Frontal view of the chest. COMPARISON: Chest radiograph 05/24/2019. FINDINGS: Hardware: Endotracheal tube approximately 3.5 cm above the level of the irish. Partially visualized gastric tube with side hole and tip coursing below the level of the diaphragm. Heart: The heart size is normal. Lungs: Fluffy bilateral airspace opacities, [id number]-left. No large pleural effusion or pneumothorax. Bones: Degenerative changes are identified within the thoracic spine. RAD/Chest 1 View (Portable) IMPRESSION: 1. Support devices as described. 2. Fluffy bilateral airspace opacities, compatible with pneumonitis/pneumonia. Reading Location: [facility] CC: Dr. Dylan Soni DO; Dr. Eugenio Peralta MD ~ Umbrella Mender: Signed [facility]07-12-2025 Consult note [facility] Medical Records Department [address] [place] [address] Consultation - Cardiology 10/08/24 0431 MR#: [id number] Acct: [id number] Name: LUCAS ASTUDILLO Rep #:[id number] : 1955 68 From: Eve Rowley MD PCP: Dr. Eugenio Peralta MD Status:ADM I N Location: ICU ICU03-1 Assessment & Plan Assessment/Plan (1) ST elevation myocardial infarction (STEMI) of inferior wall: PLAN: Status post PCI to RCAx2 JACINTA Continue with Aspirin 81 mg daily. Continue with Brilinta 90 mg twice daily. Continue with atorvastatin 40 mg daily. Obtain an echocardiogram. (2) Flash pulmonary edema: PLAN: IV Furosamide 40 mg daily (3) Acute hypoxic respiratory failure: PLAN: Due to pulmonary edema IV lasix (4) Cardiac arrest: PLAN: Vfib cardiac arrest in the setting of RCA stemi status post [id number] 1 round of CPR status post JACINTA to RCA HPI Consult Data Date of Consult: 10/08/24 HPI Narrative HPI Narrative: LUCAS ASTUDILLO, is a 68 F with PMH of Bilateral varicose veins who presented to the emergency department with a chief complaint of chest pain. She states that for the last few days she has had chest pain and notes that originally she had aprocedure on her tooth therefore she stopped taking her acid reflux medication and she thought this was her acid reflux. States that around 3 AM she woke up withsevere pain which prompted her to come here for further evaluation management. Her EKG showed inferior ST elevations. PFSH Home Medications ?Medication ?Instructions ?Recorded ?Last Taken [...] Social History Smoking Status: Never smoker ROS Review of Systems ROS Unobtainable: due to endotracheal tube Physical Exam HEENT normocephalic Eyes PERRL Resp Auscultation: breath sounds absent bilateral Cardio regular rate Jugular Venous Distention: JVD Back/Spine no CVA tenderness Extremity normal to inspection Skin no rashes or lesions noted Risk Stratification Risk Stratification Applicable: Yes Age >/= 65: Yes >/= 3 CAD Risk Factors (HTN, HLD, DM, family hx of CAD, or current smoker): Yes Aspirin Use in the Past 7 Days: Yes Severe Angina (>/= episodes in 24 hours): Yes EKG ST Changes >/= 0.5mm: Yes Positive Cardiac Marker: Yes BASIM Risk Stratification Score: 6 BASIM % Risk: 41% Risk Objective Data Vital Signs: Vital Signs Temp Pulse Resp BP Pulse Ox O2 Del Method 98.9 F 57 L 18 167/96 H 100 Nasal Cannula 10/08/24 04:18 10/08/24 04:18 10/08/24 04:18 10/08/24 04:18 10/08/24 04:18 10/08/24 04:06 Oxygen Delivery Method Nasal Cannula Weight: 196 lb 10.437 oz Body Mass Index (BMI) 31.7 Lab / Micro Data 10/08/24 03:58 10/08/24 03:58 Labs: Laboratory Results - last 24 hr 10/08/24 03:58: WBC 6.9, RBC 4.41, Hgb 12.9, Hct 40.0, MCV 90.7, MCH 29.3, MCHC 32.3, RDW Std Deviation 45.1 H, RDW Coeff of Linda 13.7, Plt Count 165, MPV 11.3, Immature Gran % (Auto) 0.300, Neut % (Auto) 57.2, Lymph % (Auto) 34.9, Collier % (Auto) 5.9, Eos % (Auto) 1.3, Baso % (Auto) 0.4, Absolute Neuts (auto) 4.0, Absolute Lymphs (auto) 2.41, Nucleated RBC % 0, PT 13.2, INR 1.0, APTT 27.4 Cardiology Labs/Tests 10/08/24 03:58: WBC 6.9, RBC 4.41, Hgb 12.9, Hct 40.0, MCV 90.7, MCH 29.3, MCHC 32.3, Plt Count 165, MPV 11.3, Immature Gran % (Auto) 0.300, Neut % (Auto) 57.2,Lymph % (Auto) 34.9, Collier % (Auto) 5.9,Eos % (Auto) 1.3, Baso % (Auto) 0.4, Absolute Neuts (auto) 4.0, Nucleated RBC % 0, PT 13.2, INR 1.0, APTT 27.4 Rhythm: EKG: ECHO: Stress Test: Cardiac Cath: PCI: CT Surgery: Holter monitor: EPS: PPM: CXR: Chest CT Scan: 10/08/24 0631 Cosigner Signature (if applicable): CC: Dr. Eugenio Peralta MD~ Signed [facility]07-12-2025 Discharge summary [facility] Medical Records Department [address] [place] [address] Emergency Department Summary 10/08/24 MR#: [id number] Acct: [id number] Name: LUCAS ASTUDILLO Rep #:[id number] : 1955 68 From: Brando Crooks DO PCP: Dr. Eugenio Peralta MD Status:ADM I N Location: ICU ICU03-1 HPI History of Present Illness Chief Complaint: Chest [...] woke up with severe pain which prompted herto come here for further evaluation management. PFSH PFS Home Medications ?Medication ?Instructions ?Recorded ?Last Taken [...] follow commands knew that she was at [facility] the year is 2024 Skin: Warm, dry, [...] looked at the EKG showed inferior wall WA. I called STEMI alert immediately. I ordered [address] Rowley was notified of the inferior wall WA and STEMI. He is also recommending heparin which wasordered. Patient case will be discussed with hospitalist [...] Patient was ultimately taken down to the [employer] for her STEMI. While here in the [...] flash pulmonary edema, altered mental status Procedure rotary filter operator: Myself Consent: Emergent Procedure summary: Timeout was performed. My hands were washed daily prior to the procedure. Woresurgical cap, mask with protective eyewear, gown and gloves throughout the procedure. The patient was placed on a cardiacmonitor including continuous pulse oximetry. Rapid sequence intubation was conducted. The patient received 40 milligrams of etomidate for induction prior to my arrival and 100 milligramsof succinylcholine for adequate paralysis. Using a video-assisted laryngoscope and a size 7.5 endotracheal tube with stylette, the patient was intubated on thefirst attempt. Stylet was removed and cuff balloon wasinflated. Appropriate endotracheal tube position was confirmed by direct visualization of cord passa ge, fogging of the tube, CO2: Metric indicator and symmetric breath sounds. The tube was secured at23 centimeters at the lips. Critical care time 67 minutes Lab Data Labs: Laboratory Results - last 24 hr 10/08/24 03:58 WBC 6.9 RBC 4.41 Hgb 12.9 Hct 40.0 MCV 90.7 MCH 29.3 MCHC 32.3 RDW Std Deviation 45.1 H RDW Coeff of Linda 13.7 Plt Count 165 MPV 11.3 Immature Gran % (Auto) 0.300 Neut % (Auto) 57.2 Lymph % (Auto) 34.9 Collier % (Auto) 5.9 Eos % (Auto) 1.3 [...] Eugenio Peralta Disposition Disposition: Acute Care Hospital [facility] What to do if you have Problems For any increased pain, shortness of breath, bleeding, nausea or vomiting, chestpain, or any unexpected problems, contact your Primary Care Provider. Call [facility] ([phone]) or report tothe closest Emergency Room. Call 911 if necessary. 10/08/24 0604 Cosigner Signature (if applicable): CC: Dr. Eugenio Peralta MD ~ Signed [facility]06-02-2025 Telephone encounter Note* Telephone Encounter - Jan Arrieta LPN - 08/29/2024 3:51 PM EDT Prescription Refill Information The patient has been [...] Arrieta LPN August 29, 2024 3:51 PM [facility]06-02-2025 Miscellaneous Notes* Telephone Encounter - Jan Arrieta LPN - 08/29/2024 3:51 PM EDT Prescription Refill Information The patient has been [...] 29, 2024 3:51 PM documented in this encounterL[facility]12-[facility]-2024 NoteHNO ID: [id number] Author: EUGENIO PERALTA MD Service: ? Author [...] edema, skin discoloration, cl (more content not included)...[facility]12-16-2024 History of Present illness Narrative* Eugenio Peralta MD - 03/14/2024 11:13 AM EST Patient presents with: Blood Pressure HPI: Patient presents today for office visit for follow up. HTN: Started lisinopril 02/22/24 when saw Lola. Denies chest pain,shortness of breath, headache,or dizziness. Checking BP at home. Will validate [...] cancerous cells in uterus per Sharon Ellis, INSOLVENCY CONSULTANT other (hysterectomy) Sister half-sister; unknown etiology Diabetes Maternal Grandmother Cancer Paternal Grandmother possibly ovarian or cervical other (abnormal pap) Daughter other (Precancerous cervix cells) Other Niece (hysterectomy) Social History Tobacco Use Smoking status: Never Smokeless tobacco: Never Vaping Use Vaping status: Never Used Substance Use Topics Alcohol use: No Drug use: No Reviewed current medications, allergies, past medical history, surgical history, family history andsocial history today. REVIEW OF SYSTEMS All other [...] cyanosis. Good capillary refill. documented in this [facility]11-25-2024 History of Present illness Narrative* Ivana Wellington RT(R) - 02/22/2024 12:30 PM EST Radiology Service Progress Note PATIENT [...] PATIENT PRESENTS WITH AN IMPLANTABLE OR ATTACHED BLADE BENDER FURNACE TENDER: No RADIOLOGY DEPARTMENT: General X-ray: Exam(s) Completed: Lower Extremity X- Ray(s): Knee, AP / Lat / Tunne / Merchant Right PERIPHERAL IV DATA: Not applicable SIGNED BY: RT April(Rj) February 22, 2024 12:30 PM documented in this encounterL[facility]11-25-2024 NoteHNO ID: [id number] Author: IVANA WELLINGTON RT(R) Service: ? Author Type: Basketball Referee Type: Progress Notes Filed: 02/22/2024 12:47 Note [...] PATIENT PRESENTS WITH AN IMPLANTABLE OR ATTACHED BLADE BENDER FURNACE TENDER: No RADIOLOGY DEPARTMENT: General X-ray: Exam(s) Completed: Lower Extremity X-Ray(s): Knee, AP / Lat / Tunne / Merchant Right PERIPHERAL IV DATA: Not applicable SIGNED BY: RT April(R) February 22, 2024 12:[address] [facility]11-25-2024 Instructions* Patient Instructions* Lola Farris APRN.JAIRON - 02/22/2024 12:21 PM EST Get the knee xray. Start the lisinopril. Recheck in a month. documented in this encounterL[facility]11-25-2024 NoteHNO ID: [id number] Author: LOLA FARRIS APRN.JAIRON Service: ? Author [...] voices understanding. Patient's que (more content not included)...[facility]11-25-2024 History of Present illness Narrative* Lola Farris, NATALIA.INSOLVENCY CONSULTANT - 02/22/2024 11:54 AM EST This is a 68 year old female [...] improvement. Lola Farris APRN.CNP documented in this encounterL[facility]10-14-2024 Note* Addendum Note - Tiffani Gant APRN.CNP - 01/11/2024 8:01 AM EDTAddended by: TIFFANI GANT on: 01/11/2024 08:01 AM Modules accepted: Orders [facility]10-14-2024 Miscellaneous Notes* Addendum Note - Tiffani Gant APRN.CNP - 01/11/2024 8:01 AM EDTAddended by: TIFFANI GANT on: 01/11/2024 08:01 AM Modules accepted: Orders documented in this encounterLima City Hospital10-10-2024 History of Present illness Narrative* Hafsa Alvarado Mammo Tech - 01/07/2024 10:50 AM EDT Radiology Service Progress Note PATIENT [...] PATIENT PRESENTS WITH AN IMPLANTABLE OR ATTACHED BLADE BENDER FURNACE TENDER: No RADIOLOGY DEPARTMENT: Mammography PERIPHERAL IV DATA: Not applicable SIGNED BY: Brendan Zapata January 07, 2024 10:12 AM documented in this encounterLima [facility] Hospital10-10-2024 NoteHNO ID: [id number] Author: HAFSA ALVARADO Mammo Jesse Service: ? Author Type: Basketball Referee Type: Progress Notes Filed: 01/07/2024 11:07 Note [...] PATIENT PRESENTS WITH AN IMPLANTABLE OR ATTACHED BLADE BENDER FURNACE TENDER: No RADIOLOGY DEPARTMENT: Mammography PERIPHERAL IV DATA: Not applicable SIGNED BY: Hafsa Alvarado Green Phosphor Jesse January 07, 2024 10:12 [facility]10-10-2024 History of Present illness Narrative* Tiffani Gant APRN.INSOLVENCY CONSULTANT - 01/07/2024 10:43 AM EDT 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 Lucas is a 68 year old who [...] Comment: 1 section No surgery for ectopic Inspector Golf Ball History LMP: 09/17/2008, Postmenopausal Age at Menarche: Age at First : Age at Menopause: Inspector Golf Ball History Comments: Sexual Activity: Yes; Male; bilateral [...] discussed with the Patient or Patient's Authorized Police Service Technician. As applicable, any other physician, advance practice provider, medical student, or other health professional student that will be observing or involved in the sensitive examination for educational or training purposes was discussed with the Patient or Authorized Police Service Technician. The Patient or Authorized Police Service Technician has agreed to proceed with the sensitive examination. (Sensitive examination includes inspection and/or palpation of the breasts, pelvis, prostate and anorectal regions). EXAM: BP 122/70 Resp 16 Ht 5' 6.024 (1.68m) Wt 190 lb 6.4 oz (86.4kg) LMP 09/17/2008 BMI30.71 kg/(m^2). GENERAL: pleasant, female in no apparent [...] external genitalia normal, normal Bartholin's glands, urethra, [place]'s glands, no vulvar lesions, no cervical lesions, [...] needed Tiffani Gant APRN.JAIRON documented in this encounterL[facility]10-10-2024 NoteHNO ID: [id number] Author: TIFFANI GANT APRN.CNP Service: ? Author Type: Nurse Practitioner Type: Progress Notes Filed: 01/07/2024 11:40 Note Text: 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 Lucas is a 68 year old who [...] Comment: 1 section No surgery for ectopic Inspector Golf Ball History LMP: 09/17/2008, Postmenopausal Age at Menarche: Age at First : Age at Menopause: Inspector Golf Ball History Comments: Sexual Activity: Yes; Male; bilateral [...] discussed with the Patient or Patient's Authorized Police Service Technician. As applicable, any other physician, advance practice provider, medical student, or other health professional student that will be observing or involved in the sensitive examination for educational or training purposes was discussed with the Patient or Authorized Police Service Technician. The Patient or Authorized Police Service Technician has agreed to proceed with the sensitive [...] external genitalia normal, normal Bartholin's glands, urethra, [place]'s glands, no vulvar lesions, no cervical lesions, [...] Follow up one year (more content not included)...[facility] 12-24-2023 Instructions* Patient Instructions* Natalia Monge APRN.CNP - 12/24/2023 2:23 PM EDT 1) No change in medications 2) See Dr. Peralta in September as scheduled documented in this encounterL[facility] Hospital09-26-2024 NoteHNO ID: [id number] Author: NATALIA MONGE APRN.CNP Service: ? Author [...] as needed for worsening/no improvement. Natalia Monge APRN.[facility]09-26-2024 History of Present illness Narrative* Natalia Monge APRN.INSOLVENCY CONSULTANT - 12/24/2023 2:12 PM EDT This is a 68 year old female [...] as needed for worsening/no improvement. Natalia Monge APRN.INSOLVENCY CONSULTANT documented in this encounterLima City Hospital09-26-2024 Nurse Note* Celia Rider MA - 12/24/2023 2:10 PM EDT 12/24/2023: Home BP Cuff Validated. Home BP: 125/83 P69 Office BP: 130/82 P:68 Celia Rider MA December 24, 2023 2:11 PM [facility]09-26-2024 Nurse Note* Celia Rider MA - 12/24/2023 2:10 PM EDT 12/24/2023: Home BP Cuff Validated. Home BP: 125/83 P69 Office BP: 130/82 P:68 Celia Rider MA December 24, 2023 2:11 PM documented in this encounterLima City Hospital09-24-2024 Telephone encounter Note * Telephone Encounter - Crystal Henning RN - 12/22/2023 10:49 AM EDT Pt called in and reports she had been to the dentist and another appointment and her BP had been elevated and she wanted to get in to have her BP checked. She states she hasn't been checking it at home like she should. Pt is going to start checking it and bring log in for appointment, along with cuff to be checked. [facility]09-24-2024 Miscellaneous Notes* Telephone Encounter - Crystal Henning RN - 12/22/2023 10:49 AM EDT Pt called in and reports she had [...] cuff to be checked. documented in this encounterLima [facility] Hospital09-16-2024 Telephone encounter Note * Telephone Encounter - Jan Arrieta LPN - 12/14/2023 6:10 PM EDT Prescription Refill Information The patient has been [...] Arrieta LPN December 14, 2023 6:10 PM [facility]09-16-2024 Miscellaneous Notes* Telephone Encounter - Jan Arrieta LPN - 12/14/2023 6:10 PM EDT Prescription Refill Information The patient has been [...] 14, 2023 6:10 PM documented in this encounterL[facility]09-05-2024 History of Present illness Narrative* Mayra Lan PA-C - 12/03/2023 9:45 AM EDT Chief Complaint Patient presents with: Derm Problem: [...] appearing and topical steroid to use on currentrash. If not improving, patient to contact office. Mayra Lna PA-C documented in this encounterLima [facility] Hospital07-29-2024 History of Present illness Narrative* Eugenio Peralta MD - 10/26/2023 11:06 AM EDT Images from the original note [...] the patient in the medical record. Dr Rivas, sees AUTOMOTIVE TIRE TESTER, [facility]. Medical/Family history review Reviewed and [...] No history of dysuria, frequency or incontinence AUTOMOTIVE TIRE TESTER: Negative for abnormal vaginal bleeding, abnormal vaginal [...] Personalized prevention plan provided documented in this encounterLima [facility] Hospital07-29-2024 Evaluation note* Diagnosis Mixed hyperlipidemia- Primary Chronic kidney disease, stage 3a (HCC) Screening for depression Encounter for screening examination for other mental health and behavioral disorders documented in this encounter [facility]05-30-2024 Telephone encounter Note* Telephone Encounter - Tiffani Gant APRN.INSOLVENCY CONSULTANT - 08/27/2023 7:50 AM EDT Orders filed. [facility]05-30-2024 Miscellaneous Notes* Telephone Encounter - Tiffani Gant APRN.CNP - 08/27/2023 7:50 AM EDT Orders filed. * Telephone Encounter - Rhonda Lyons RN - 08/26/2023 11:04 AM EDT Mamm with SAIRA order pending. Please file and then route to schedulers. Thank you. documented in this encounterL[facility]05-29-2024 Telephone encounter Note * Telephone Encounter - Rhonda Lyons RN - 08/26/2023 11:04 AM EDT Mamm with SAIRA order pending. Please file and then route to schedulers. Thank you. [facility]05-04-2024 History of Present illness Narrative* Enmanuel Macias MD - 08/01/2023 10:42 AM EDT Patient presents with: Pain: L side rib pain x1 week HPI: Left chest pain: Duration: 7 days. Pain started after sitting on a bucket with [place] [address] [place] Location: left lateral lower ribs Character: dull, [...] chest pain, or late onset fever. Enmanuel Macias MD documented in this encounterLima [facility] Hospital03-18-2024 Miscellaneous Notes* Addendum Note - Eugenio Peralta MD - 06/15/2023 9:39 AM EDTAddended by: EUGENIO PERALTA on: 06/15/2023 09:39 AM Modules accepted: Orders documented in this encounterLima [facility] Hospital02-27-2024 History of Present illness Narrative* Lexy Rivas, DO - 05/26/2023 2:25 PM EST Images from the original note were not included. Heart , Vascular and Thoracic [place] DEPARTMENT OF VASCULAR SURGERY OUTPATIENT VISIT DATE [...] and right leg stab phlebectomy. SIGNATURE: Lexy Rivas DO PATIENT NAME: Lucas Astudillo DATE: May 26, 2023 TIME: 2:25 PM documented in this encounterLima City Hospital01-02-2024 History of Present illness Narrative* Ivis [...] 31, 2023 12:47 PM documented in this encounterLima City Hospital11-21-2023 Instructions* Patient Instructions* Lexy Rivas DO - 02/17/2023 9:26 AM EST Stocking [...] allow to air dry. There are also account coordinator recommendations included with your stockings. Skin care- [...] palm of the gloved will help you property worker the stocking while putting it on. Be [...] are wearing the most effective size. Locations: [facility] [phone] [employer]- [phone] www.[email or web address]- [phone] [email or web address]- [phone] Located in [facility] [place]- call local store and schedule a fitting. documented in this encounterLima City Hospital11-21-2023 History of Present illness Narrative* Lexy Rivas DO - 02/17/2023 8:43 AM EST Images from the original note were not included. Heart, Vascular and Thoracic [place] DEPARTMENT OF VASCULAR SURGERY OUTPATIENT VISIT DATE February 17, 2023 OUTPATIENT VISIT TYPE CONSULTATION SERVICE DATE: 02/17/2023 SERVICE TIME: 8:46 AM PRIMARY CARE PHYSICIAN: Eugenio Peralta MD REFERRING PROVIDER: Mavis Hughes [address] [facility] [address] Consult requested for an opinion regarding the [...] lesions, rash, and itching. PHYSICAL EXAM: VITALS: [facility] 09/17/2008 General: Alert, oriented, cooperative, healthy appearance [...] mmHg and instructed on use SIGNATURE: Lexy Rivas DO PATIENT NAME: Lucas Astudillo DATE: February 17, 2023 TIME: 8:46 AM documented in this encounterLima City Hospital11-14-2023 History of Present illness Narrative* Reji Ward, PT - 02/10/2023 10:26 AM EST Program_ID:[id number] Access Code: [email or web address] URL: [email or web address] Date: 02-10-2023 Prepared By: Reji Ward Program Notes Exercises - Supine Hip ABDuction [...] x weekly - 3 - * Reji Ward, PT - 02/10/2023 9:49 AM EST Episode [...] Time (minutes): 45 Session Start Time : 45 Session Stop Time : 1030 Reji Ward, PT documented in this encounterL[facility]11-08-[facility] History of Present illness Narrative* Harry Faustin, PT - 02/04/2023 10:27 AM EST [facility] DME ISSUE NOTE Patient identified by name and date: Yes Subjective: Lucas Astudillo is a 67 year old female 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 Equipment Owned: custom [...] hour of wear time per day until real time trader wear is achieved. Pt was educated on [...] Custom biomechanical foot orthotics with serial number: #[id number] were issued to patient and proof of receipt form signed by pt and therapist. All specifications for custom foot orthotics can be foundin orthotic evaluation visit note. Planned Interventions: Follow up as needed for brace fitting/issues. Billing:[facility]: Orthotics Management and Training (89876): 1:1 time: 15 minutes (1 unit: 8-22 mins) Equipment: [id number] pair of custom foot orthotics Total time: 15 minutes Harry Faustin PT documented in this encounterLima City Hospital10-31-2023 History of Present illness Narrative* Reji Ward PT - 01/27/2023 1:16 PM EDT Episode Visit Count: 6 Therapist That Will Accept/Oversee The Plan Of Care: Harry Golias, PT will oversee custom foot orthotics Start [...] 1314 Session Stop Time : 1402 Reji Ward PT documented in this encounterLima City Hospital10-23-2023 History of Present illness Narrative* Harry [...] visit and 1 visit for fitting and pickling tank operator) Planned Treatment Interventions: Orthosis / DME, Patient/Family/Caregiver Education, Self-care homemanagement (62950) PLAN FOR NEXT VISIT: 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 Start of Care Date: 12/04/22 Onset [...] of Care: created on 12/04/22 through 02/10/23 [place] in home exercise program. (MET) Patient will [...] Patient to be seen for Therapeutic exercise (19588), Neuromuscular re-education (21269), Manual therapy (47564), Therapeutic activities (63172), Self-usp management (40468), Patient/Family/Caregiver Education, Body Mechanics Training, General Conditioning [...] and tactile cuing. Manual Therapy: 1: Long Ruby Distraction: Pull to patient tolerance. 2: Manual [...] Time (minutes): 53 Session Start Time : 1528 Session Stop Time : 162 Reji Ward PT documented in this encounterLima City Hospital10-11-2023 Miscellaneous Notes* Telephone Encounter - Vanessa Hughes - 01/07/2023 12:02 PM EDT Pt scheduled with Dr. Rivas 02/17 Vanessa Hughes January 07, 2023 12:02 [...] both lower extremities (primary encounter diagnosis) Dr. Rivas ThanksTomasz PA-C * Telephone Encounter - Donna Edwards [...] recommendations. Donna Edwards RN documented in this encounterLima City Hospital10-10-2023 Miscellaneous Notes* Letter - Coordinator, Mammography - 01/06/2023 1:42 PM EDT January 07, 2023 PID: [id number] Lucas Astudillo [address] [place] [address] Dear Ms. Astudillo, We are pleased to [...] report will [facility] as part of your permanent medical record and are available for your continuing care. Thank you for allowing us to help in meeting your health care needs. Sincerely, Dr. Shoemaker Interpreting Radiologist [facility] (Normal over 40) documented in this encounterLima City Hospital10-09-2023 History of Present illness Narrative* Tameka [...] 05, 2023 10:49 AM documented in this encounterLima City Hospital09-21-2023 Instructions* Patient Instructions* Ameya Ramachandran - 12/18/2022 8:50 AM EDT Images [...] time on their feet, such as nurses, accounting consultant/waiters, andmail carriers, often experience plantar fasciitis. Athletes [...] choose the one that fits the best. [place] with your athletic shoes to find a pair that is comfortable and causes fewer symptoms. Put your shoes on as soon as you get out of bed; going barefoot or wearing slippers may make your pain worse. Good brands include (but are not limited to): [employer], Asics, [employer], SAS and Merrel s. Taping: [...] and repeat the exercise. documented in this encounterLima City Hospital09-21-2023 History of Present illness Narrative* Ameya Ramachandran - 12/18/2022 8:43 AM EDT Images [...] likely is benign. Can treat with inserts. Ameya Ramachandran DPM Podiatry [address] [facility] [address] Dept: [phone] Dept * Vicki Valdovinos LPN - 12/18/2022 8:21 AM EDT AMB ROOMING INTAKE FLOWSHEET DATA Pain Pain Level: 2 Pain Location: Foot-Left Description: Other: See comment (tender) Duration Units: Years Frequency: Intermittent Intervention/Comfort measure: Reposition, Relaxation Patient presents with: Left Foot - New, Pain Right Foot - New, Pain Vicki Valdovinos LPN documented in this encounterLima City Hospital09-19-2023 History of Present illness Narrative* Reji Ward, PT - 12/16/2022 2:27 PM EDT Episode Visit Count: 3 Therapist That Will Accept/Oversee The Plan Of Care: Reji Ward PT. Start of Care Date: 12/04/22 Onset [...] and tactile cuing. Manual Therapy: 1: Long Ruby Distraction: Pull to patient tolerance. 2: Manual [...] 1445 Session Stop Time : 1529 Reji Ward PT documented in this encounterLima City Hospital09-15-2023 History of Present illness Narrative* Reji Ward, PT - 12/12/2022 7:00 AM EDT Episode Visit Count: 2 Therapist That Will Accept/Oversee The Plan Of Care: Reji Ward PT. Start of Care Date: 12/04/22 Onset [...] 0700 Session Stop Time : 743 Reji Ward PT documented in this encounterLima City Hospital09-07-2023 History of Present illness Narrative* Reji Ward PT - 12/04/2022 9:43 AM EDT Episode Visit Count: 1 Therapist That Will Accept/Oversee The Plan Of Care: Reji Ward PT. Start of Care Date: 12/04/22 Onset [...] of Care: created on 12/04/22 through 01/15/23 [place] in home exercise program. Patient will decrease [...] Planned: 4 Planned Treatment Interventions: Therapeutic exercise (84444), Neuromuscular re- education (18583), Manual therapy (33462), Therapeutic activities (32644), Self- usp management (92678), Patient/Family/Caregiver Education, Body Mechanics Training, General Conditioning [...] PT Treatment Interventions: Therapeutic Exercise, Manual Therapy, Self-Chcf Management Evaluation Therapeutic Exercise: 1: *SKC: 1x30 [...] and tactile cuing. Manual Therapy: 1: Long Ruby Distraction: Pull to patient tolerance. 2: Manual L/S Traction with belt and knees propped on stool, caudal pull with belt to patient tolerance. Skilled Intervention: Manual skills to improve joint mobility, ROM, and decrease pain. Utilized anatomy knowledge of the therapist, and assessment of patient's response to intervention. Self-Chcf Management: 1: *Discussion and education about previous [...] 941 Session Stop Time : 103 Reji Ward PT documented in this encounterLima City Hospital09-06-2023 History of Present illness Narrative* Jose [...] 03, 2022 10:03 AM documented in this encounterLima City Hospital09-06-2023 History of Present illness Narrative* Daisy [...] 03, 2022 8:51 AM documented in this encounterLima City Hospital08-30-2023 History of Present illness Narrative* Erendira Rievra - 11/26/2022 12:17 PM EDT Bilateral Foot documented in this encounterLima City Hospital08-28-2023 History of Present illness Narrative* Zoë Linder - 11/24/2022 11:59 AM EDT POPULATION HEALTH NAVIGATION OUTREACH Action/[facility] [place] Support: Called pt to schedule an appt in Pain Management. Lvm for pt to call [phone] for scheduling. Patient Identified by Name and : NO Outreach Outcome/Action Unable to reach patient: Left message Did you use a PCP flex slot to schedule this appointment? No Reason for Outreach Care Gap or Scheduling/Wellness visits Payer: Payor: [facility] [place] / Plan: MMO MEDADVANTAGE HMO / Product Type: HMO / Care Gap Reviewed:: Specialty Scheduling Reminder: Reminder note to check Health Maintenance for items below Health Maintenance items due: MAMMOGRAM due on 01/02/2023 Navigation Signature: Zoë Linder November 24, 2022 11:59 AM documented in this encounterLima City Hospital08-24-2023 Telephone encounter Note * Telephone Encounter - Giovanna Ling - 11/20/2022 3:23 PM EDT Patient is scheduled [facility] Miscellaneous Notes* Telephone Encounter - Giovanna [...] Please review and advise. documented in this encounterLima City Hospital08-24-2023 Telephone encounter Note * Telephone Encounter - Mavis Hughes PA-C - 11/20/2022 12:08 PM EDT Telephone on 11/19/22 CONSULT TO PHYSICAL THERAPY Arthritis of right sacroiliac joint (primary encounter diagnosis) Tomasz Mace PA-C [facility] Telephone encounter Note* Telephone Encounter - Jan Arrieta LPN - 11/19/2022 9:17 AM EDT See lumbar xray result note- provider recommended PT or pain mgmt. Jan Arrieta LPN [facility]08-23-[facility] Telephone encounter Note* Telephone Encounter - Agnes La - 11/19/2022 9:07 AM EDT Patient needs a physical therapy consult placed to schedule. Please review and advise. [facility] History of Present illness Narrative* Ivis Pelayo RT(R) - 11/14/2022 11:30 AM EDT Radiology [...] 14, 2022 11:24 AM documented in this encounterLima City Hospital08-18-2023 Instructions* Patient Instructions* Mavis Hughes PA-C - 11/14/2022 11:05 AM EDT HEALTH MAINTENANCE: Your Body mass index is 31.15 kg/m . (Target BMI: 19-25) Regular aerobic exercise, low fat diet, and periodic exams are recommended Living Will & Medical Power of Property Staff Accountant recommended Periodic Pap smear per risk profile. [...] your usual activities immediately. documented in this encounterLima City Hospital08-18-2023 History of Present illness Narrative* Mavis Hughes PA-C - 11/14/2022 10:00 AM EDT 67 year old female with c/o well visit, BP check, last visit with mi 07/26/2020enise Maya Astudillo is a 67 year old female here for a Medicare wellness visit. Health Risk Assessment In general, health is: Good Concerns with balance: Not at all Concerns with teeth or dentures: Not at all Concerns with sexual function: Not at all [place] anxious, stressed, angry, irritable, lonely, isolated, or [...] concerns: Wants recheck on ear 11/01/2022 In [facility] for sore throat and ear pain. Negative Strep test. Provider identifies serous otitis and placed her on Augmentin. Had a lof of stomach upset and diarrhea. Notes right middle finger sticking, saw Dr. Churhcill a few years ago, offered to do [...] Lymph 1.00 - 4.00 k/uL 1.51 1.29 Collier% % 5.6 5.7 Abs [place]lier <0.87 k/uL 0.28 0.24 Eosin% % 1.6 [...] cancerous cells in uterus per Sharon Ellis, INSOLVENCY CONSULTANT other (Precancerous cervix cells) Other Niece (hysterectomy) [...] kidney infection. Females: Climacteric early 50s. Sees AUTOMOTIVE TIRE TESTER for lichen sclerosis. No hx of ovarian [...] - ICD9: 701.0, ICD10: N90.4 Follows with AUTOMOTIVE TIRE TESTER 8. Wellness examination - ICD9: V70.0, ICD10: [...] year Mavis Hughes PA-C documented in this encounterLima City Hospital08-05-2023 Instructions* Patient Instructions* Johanne Santos APRN.INSOLVENCY CONSULTANT - 11/01/2022 10:28 AM EDT Rest, increase [...] breath, inability to swallow. documented in this encounterLima City Hospital08-05-2023 History of Present illness Narrative* Johanne Santos APRN.CNP - 11/01/2022 10:17 AM EDT Subjective The history is provided by the patient. No sign language teacher was used. JOSE Astudillo is a 67 [...] have confirmed and edited as necessary, the [facility] Review of Systems Constitutional: Negative for [...] evaluation. Johanne Santos APRN.JAIRON documented in this encounterLima City Hospital08-01-2023 Instructions* Patient Instructions* Crystal Pastrana PA-C - 10/28/2022 10:54 AM EDT -If dysphagia symptoms recur, would recommend esophageal manometry for further evaluation -Repeat EGD in 5 years for surveillance due to long-term PPI use The following instructions are important for you related to your office visit today with the [facility] General Surgeons. INSTRUCTIONS FOR PEPTIC ULCER [...] you should contact our office immediately @ [phone] and ask to be transferred to the General Surgery department. documented in this encounterLima City Hospital08-01-2023 History of Present illness Narrative* Crystal Pastrana PA-C - 10/28/2022 10:35 AM EDT FOLLOW UP VISIT - ENDOSCOPY NAME: Lucas Trejo [facility] [place] NO.: [id number] DATE OF SERVICE: 10/28/2022 : 1955 REFERRING [...] which included preparing to see the patient, [id number] patient care, completing clinical documentation, obtaining and/or reviewing separately obtained history, counseling and educating the patient/family/caregiver, independently interpretin g results (not separately reported), and communicating results to the patient/family/caregiver. Crystal Pastrana PA-C documented in this encounterLima City Hospital07-25-2023 History of Present illness Narrative* Sabina Kauffman RT(R) - 10/21/2022 1:00 PM EDT Radiology [...] 21, 2022 12:55 PM documented in this encounterLima City Hospital07-24-2023 Nurse Note* Mary Torres RN - 10/20/2022 9:41 AM EDT Patient sitting up in bed tolerating snack and drink without problems. Mary Torres RN * Mary Torres RN - 10/20/2022 9:15 AM EDT Patient arrived to PACU, on left side, abomen soft. Drowsy.Denies pain. Mary Torres RN documented in this encounterLima City Hospital07-24-2023 History and physical note * Eriberto Disla MD - 10/20/2022 8:45 AM EDT Images from the original note were not included. HISTORY AND PHYSICAL Lucasadele Astudillo 1955 REFERRING PHYSICIAN: Mavis Hughes PA-C CHIEF COMPLAINT: Consult (GERD/dyskinesia of esophagus) HPI: The patient is a 66 year old female referred for endoscopy. Lucsa notes dysphagia with bread and meats. Notes [...] entered by the nurse and reviewed by mi Nursing Notes: Vikki Castillo LPN 07/22/2022 1:20 [...] patient was offered a surgery/procedure [facility]. I have counseled the patient [...] 2022 TIME: 8:05 AM documented in this encounterLima City Hospital04-25-2023 History of Present illness Narrative* Crystal [...] entered by the nurse and reviewed by mi Nursing Notes: Vikki Castillo LPN 07/22/2022 1:20 [...] patient was offered a surgery/procedure at a [facility]. I have counseled the patient [...] mail. Crystal Pastrana PA-C documented in this encounterLima City Hospital04-25-2023 Nurse Note* Vikki Castillo LPN - [...] 2018 Vikki Castillo LPN documented in this encounterLima City Hospital03-07-2023 Miscellaneous Notes* Telephone Encounter - Jan Arrieta LPN - 06/03/2022 8:51 AM EST Pt scheduled well visit with PCP on 11/14/22. * Telephone Encounter - Shane David LPN - 06/02/2022 3:18 PM EST [...] advise, Alma Haq RN documented in this encounterLima City Hospital02-27-2023 Miscellaneous Notes* Telephone Encounter - Henny Loya LPN - 05/26/2022 9:02 AM EST Pt wanting order for 3D mammogram. Pt will call to schedule later. No need to return call to pt. Henny Loya LPN documented in this encounterLima City Hospital02-14-2023 Miscellaneous Notes* Telephone Encounter - Lin [...] call and advise Pt. documented in this encounterLima City Hospital02-13-2023 History of Present illness Narrative* Estrella James LPN - 05/12/2022 10:23 AM EST Patient presents for COVID vaccine. Denies any problems at this time. Tolerated injection well. Estrella James LPN documented in this encounterLima City Hospital11-21-2022 History of Present illness Narrative* Sabina [...] 17, 2022 9:50 AM documented in this [facility]11-21-2022 Instructions* Patient Instructions* Lola Farris APRN.JAIRON [...] know if no better/worsening. documented in this encounterLima City Hospital11-21-2022 History of Present illness Narrative* Lola [...] as needed for worsening/no improvement. Lola Farris APRN.JAIRON This note was partially generated using Spotplex recognition system. Note was reviewed for accuracy. There may be minor misspellings or grammar miscues with 8aweek voice recognition. documented in this encounterLima City Hospital11-17-2022 History of Present illness Narrative* Alberto [...] plan Alberto Le APRN.CNP documented in this encounterLima City Hospital11-17-2022 Instructions* Patient Instructions* Alberto Le APRN.CNP [...] spread by coughs, sneezes, anddirect contact, especially [id number]. A respiratory tract infection usually clears up [...] 102 F (39 C). documented in this encounterLima City Hospital10-31-2022 Miscellaneous Notes* Telephone Encounter - Leisa [...] 10/2022 Last refill: 12/2020 documented in this encounterLima City Hospital10-07-2022 Miscellaneous Notes* Letter - Mammography Coordinator - 01/03/2022 8:14 AM EDT January 03, 2022 PID: [id number] Lucas Astudillo [address] [place] [address] Dear Ms. Astudillo, We are pleased to [...] report will be kept [facility] as part of your permanent medical record and are available for your continuing care. Thank you for allowing us to help in meeting your health care needs. Sincerely, Dr. Hammonds Interpreting Radiologist [facility] (Normal over 40) documented in this encounterLima City Hospital10-06-2022 History of Present illness Narrative* RT [...] 02, 2022 2:54 PM documented in this encounterLima City Hospital10-06-2022 History of Present illness Narrative* Tiffani Gant APRN.CNP - 01/02/2022 2:23 PM EDT Computer Systems Architect offered: Patient declines. Lucas is a 66 [...] Comment: 1 section No surgery for ectopic Inspector [place] History LMP: 09/17/2008, Postmenopausal Age at Menarche: Age at First : Age at Menopause: Inspector [employer] History Comments: Sexual Activity: Yes; Male; bilateral [...] external genitalia normal, normal [place]'s glands, urethra, [place]'s glands, no cervical lesions, good vaginal support, [...] Lichen sclerosus -Clobetasol cream ordered Tiffani Gant APRN.INSOLVENCY CONSULTANT documented in this encounterLima City Hospital09-20-2022 History of Present illness Narrative* Nallely [...] and up to date documented in this encounterLima City Hospital09-13-2022 Miscellaneous Notes* Telephone Encounter - Rosie Galan RN - 12/10/2021 4:26 PM EDT Annual and mammogram reschedule to 01/02/22 with RM. Previous order then . Please file order. Rosie Galan RN documented in this encounterLima City Hospital08-19-2022 History of Present illness Narrative* Estrella James LPN - 11/15/2021 3:00 PM EDT Patient presents for Prevnar 20 vaccine. Denies any problems at this time. Tolerated injection well. Estrella James LPN documented in this encounterLima City Hospital04-28-2014 History of Past illness Narrative* Problem Noted Date Resolved Date GERD (gastroesophageal reflux disease) 4 09/14/2017 Carpal tunnel syndrome 01/12/2006 0 documented as of this encounter (statuses as of 11/01/2021) [facility] of [facility] illness Narrative* Problem Noted Date Resolved Date GERD (gastroesophageal reflux disease) 4 09/14/2017 Carpal tunnel syndrome 01/12/2006 0 documented as of this encounter (statuses as of 11/15/2021) [facility] of [facility] illness Narrative* Problem Noted Date Resolved Date GERD (gastroesophageal reflux disease) 4 09/14/2017 Carpal tunnel syndrome 01/12/2006 0 documented as of this encounter (statuses as of 11/18/2021) [facility] Narrative* Problem Noted Date Resolved Date GERD (gastroesophageal reflux disease) 4 09/14/2017 Carpal tunnel syndrome 01/12/2006 0 documented as of this encounter (statuses as of 12/10/2021) [facility] Narrative* Problem Noted Date Resolved Date GERD (gastroesophageal reflux disease) 4 09/14/2017 Carpal tunnel syndrome 01/12/2006 0 documented as of this encounter (statuses as of 12/17/2021) [facility] Narrative* Problem Noted Date Resolved Date GERD (gastroesophageal reflux disease) 4 09/14/2017 Carpal tunnel syndrome 01/12/2006 0 documented as of this encounter (statuses as of 01/02/2022) [facility] Narrative* Problem Noted Date Resolved Date GERD (gastroesophageal reflux disease) 4 09/14/2017 Carpal tunnel syndrome 01/12/2006 0 documented as of this encounter (statuses as of 01/03/2022) [place] [id number] History of Past illness Narrative* Problem Noted Date Resolved Date GERD (gastroesophageal reflux disease) 4 09/14/2017 Carpal tunnel syndrome 01/12/2006 0 documented as of this encounter (statuses as of 01/07/2022) [facility] Narrative* Problem Noted Date Resolved Date GERD (gastroesophageal reflux disease) 4 09/14/2017 Carpal tunnel syndrome 01/12/2006 0 documented as of this encounter (statuses as of 01/27/2022) [facility] Narrative* Problem Noted Date Resolved Date GERD (gastroesophageal reflux disease) 4 09/14/2017 Carpal tunnel syndrome 01/12/2006 0 documented as of this encounter (statuses as of 02/13/2022) [facility] Narrative* Problem Noted Date Resolved Date GERD (gastroesophageal reflux disease) 4 09/14/2017 Carpal tunnel syndrome 01/12/2006 0 documented as of this encounter (statuses as of 02/17/2022) [place] [id number] History of Past illness Narrative* Problem Noted Date Resolved Date GERD (gastroesophageal reflux disease) 4 09/14/2017 Carpal tunnel syndrome 01/12/2006 0 documented as of this encounter (statuses as of 05/12/2022) [facility] Narrative* Problem Noted Date Resolved Date GERD (gastroesophageal reflux disease) 4 09/14/2017 Carpal tunnel syndrome 01/12/2006 0 documented as of this encounter (statuses as of 05/13/2022) [facility] Narrative* Problem Noted Date Resolved Date GERD (gastroesophageal reflux disease) 4 09/14/2017 Carpal tunnel syndrome 01/12/2006 0 documented as of this encounter (statuses as of 05/26/2022) [address]28[address]2014 History of Past illness Narrative* Problem Noted Date Resolved Date GERD (gastroesophageal reflux disease) 4 09/14/2017 Carpal tunnel syndrome 01/12/2006 0 documented as of this encounter (statuses as of 06/03/2022) [facility] Narrative* Problem Noted Date Resolved Date GERD (gastroesophageal reflux disease) 4 09/14/2017 Carpal tunnel syndrome 01/12/2006 0 documented as of this encounter (statuses as of 08/01/2022) [place] [id number] History of Past illness Narrative* Problem Noted Date Diagnosed Date Resolved Date GERD (gastroesophageal reflux disease) 07/25/2013 09/14/2017 Carpal tunnel syndrome 01/12/200606/05 documented as of this encounter (statuses as of 10/28/2022) [address]28-2014 History of Past illness Narrative* Problem Noted Date Diagnosed Date Resolved Date GERD (gastroesophageal reflux disease) 07/25/2013 09/14/2017 Carpal tunnel syndrome 01/12/200606/05 documented as of this encounter (statuses as of 11/01/2022) [place] [address]28-2014 History of Past illness Narrative* Problem Noted Date Diagnosed Date Resolved Date GERD (gastroesophageal reflux disease) 07/25/2013 09/14/2017 Carpal tunnel syndrome 01/12/200606/05 documented as of this encounter (statuses as of 11/14/2022) [address]28-2014 History of Past illness Narrative* Problem Noted Date Diagnosed Date Resolved Date GERD (gastroesophageal reflux disease) 07/25/2013 09/14/2017 Carpal tunnel syndrome 01/12/200606/05 documented as of this encounter (statuses as of 11/24/2022) [address]28-2014 History of Past illness Narrative* Problem Noted Date Diagnosed Date Resolved Date GERD (gastroesophageal reflux disease) 07/25/2013 09/14/2017 Carpal tunnel syndrome 01/12/200606/05 documented as of this encounter (statuses as of 11/26/2022) [address]28-2014 History of Past illness Narrative* Problem Noted Date Diagnosed Date Resolved Date GERD (gastroesophageal reflux disease) 07/25/2013 09/14/2017 Carpal tunnel syndrome 01/12/200606/05 documented as of this encounter (statuses as of 12/04/2022) [address]28-2014 History of Past illness Narrative* Problem Noted Date Diagnosed Date Resolved Date GERD (gastroesophageal reflux disease) 07/25/2013 09/14/2017 Carpal tunnel syndrome 01/12/200606/05 documented as of this encounter (statuses as of 12/05/2022) [address]28-2014 History of Past illness Narrative* Problem Noted Date Diagnosed Date Resolved Date GERD (gastroesophageal reflux disease) 07/25/2013 09/14/2017 Carpal tunnel syndrome 01/12/200606/05 documented as of this encounter (statuses as of 12/12/2022) [address]28-2014 History of Past illness Narrative* Problem Noted Date Diagnosed Date Resolved Date GERD (gastroesophageal reflux disease) 07/25/2013 09/14/2017 Carpal tunnel syndrome 01/12/200606/05 documented as of this encounter (statuses as of 12/17/2022) [address]28-2014 History of Past illness Narrative* Problem Noted Date Diagnosed Date Resolved Date GERD (gastroesophageal reflux disease) 07/25/2013 09/14/2017 Carpal tunnel syndrome 01/12/200606/05 documented as of this encounter (statuses as of 12/18/2022) [place] [address]-28-2014 History of Past illness Narrative* Problem Noted Date Diagnosed Date Resolved Date GERD (gastroesophageal reflux disease) 07/25/2013 09/14/2017 Carpal tunnel syndrome 01/12/200606/05 documented as of this encounter (statuses as of 01/07/2023) [place] [address]28-2014 History of Past illness Narrative* Problem Noted Date Diagnosed Date Resolved Date GERD (gastroesophageal reflux disease) 07/25/2013 09/14/2017 Carpal tunnel syndrome 01/12/200606/05 documented as of this encounter (statuses as of 01/08/2023) [place] [address]28-2014 History of Past illness Narrative* Problem Noted Date Diagnosed Date Resolved Date GERD (gastroesophageal reflux disease) 07/25/2013 09/14/2017 Carpal tunnel syndrome 01/12/200606/05 documented as of this encounter (statuses as of 01/10/2023) [address]28-2014 History of Past illness Narrative* Problem Noted Date Diagnosed Date Resolved Date GERD (gastroesophageal reflux disease) 07/25/2013 09/14/2017 Carpal tunnel syndrome 01/12/200606/05 documented as of this encounter (statuses as of 01/14/2023) [facility]-28-2014 History of Past illness Narrative* Problem Noted Date Diagnosed Date Resolved Date GERD (gastroesophageal reflux disease) 07/25/2013 09/14/2017 Carpal tunnel syndrome 01/12/200606/05 documented as of this encounter (statuses as of 01/20/2023) [place] [address]28-2014 History of Past illness Narrative* Problem Noted Date Diagnosed Date Resolved Date GERD (gastroesophageal reflux disease) 07/25/2013 09/14/2017 Carpal tunnel syndrome 01/12/200606/05 documented as of this encounter (statuses as of 01/28/2023) [place] [address]28-2014 History of Past illness Narrative* Problem Noted Date Diagnosed Date Resolved Date GERD (gastroesophageal reflux disease) 07/25/2013 09/14/2017 Carpal tunnel syndrome 01/12/200606/05 documented as of this encounter (statuses as of 02/01/2023) [place] [address]28-2014 History of Past illness Narrative* Problem Noted Date Diagnosed Date Resolved Date GERD (gastroesophageal reflux disease) 07/25/2013 09/14/2017 Carpal tunnel syndrome 01/12/200606/05 documented as of this encounter (statuses as of 02/01/2023) [address]28[address]2014 History of Past illness Narrative* Problem Noted Date Diagnosed Date Resolved Date GERD (gastroesophageal reflux disease) 07/25/2013 09/14/2017 Carpal tunnel syndrome 01/12/200606/05 documented as of this encounter (statuses as of 02/01/2023) [address]28[address]2014 History of Past illness Narrative* Problem Noted Date Diagnosed Date Resolved Date GERD (gastroesophageal reflux disease) 07/25/2013 09/14/2017 Carpal tunnel syndrome 01/12/200606/05 documented as of this encounter (statuses as of 02/05/2023) [address]28-2014 History of Past illness Narrative* Problem Noted Date Diagnosed Date Resolved Date GERD (gastroesophageal reflux disease) 07/25/2013 09/14/2017 Carpal tunnel syndrome 01/12/200606/05 documented as of this encounter (statuses as of 02/10/2023) [address]28-2014 History of Past illness Narrative* Problem Noted Date Diagnosed Date Resolved Date GERD (gastroesophageal reflux disease) 07/25/2013 09/14/2017 Carpal tunnel syndrome 01/12/200606/05 documented as of this encounter (statuses as of 02/17/2023) [address]28-2014 History of Past illness Narrative* Problem Noted Date Diagnosed Date Resolved Date GERD (gastroesophageal reflux disease) 07/25/2013 09/14/2017 Carpal tunnel syndrome 01/12/200606/05 documented as of this encounter (statuses as of 02/24/2023) [address]28-2014 History of Past illness Narrative* Problem Noted Date Diagnosed Date Resolved Date GERD (gastroesophageal reflux disease) 07/25/2013 09/14/2017 Carpal tunnel syndrome 01/12/200606/05 documented as of this encounter (statuses as of 05/27/2023) [address]28[address]2014 History of Past illness Narrative* Problem Noted Date Diagnosed Date Resolved Date GERD (gastroesophageal reflux disease) 07/25/2013 09/14/2017 Carpal tunnel syndrome 01/12/200606/05 documented as of this encounter (statuses as of 06/15/2023) [facility]ando Crooks [facility] Note Date/Time October 08, 2024 6:04 am [facility] Medical Records Department [address] [place] [address] Emergency Department Summary 10/08/24 MR#: [id number] Acct: [id number] Name: LUCAS ASTUDILLO Rep #:[id number] 09 : 1955 68 From: Brando Crooks DO PCP: Dr. Eugenio Peralta MD Status:ADM I N Location: ICU ICU03-1 HPI History of Present Illness Chief Complaint: Chest [...] to come here for further evaluation management. PFSH PFSH Home Medications ?Medication ?Instructions ?Recorded ?Last Taken [...] follow commands knew that she was at [facility] the year is 2024 Skin: Warm, dry, [...] looked at the EKG showed inferior wall WA. I called STEMI alert immediately. I ordered [address] Rowley was notified of the inferior wall WA and STEMI. He is also recommending heparin [...] Patient was ultimately taken down to the [facility] for her STEMI. While here in the emergency department ARBEN DAMON was called. 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 My hands were washed daily prior to the procedure. Woresurgical cap, mask with protective eyewear, gown and gloves throughout the procedure. The patient was placed on a laboratory monitor including continuous pulse oximetry. Rapid sequence intubation [...] % (Auto) 57.2 Lymph % (Auto) 34.9 Collier % (Auto) 5.9 Eos % (Auto) 1.3 [...] Primary Care Provider: Eugenio Peralta Disposition Disposition: [facility] What to do if you have Problems For any increased pain, shortness of breath, bleeding, nausea or vomiting, chestpain, or any unexpected problems, contact your Primary Care Provider. Call [facility] ([phone]) or report to the closest Emergency Room. Call 911 if necessary. 10/08/24 0604 <Electronically signed by Brando Crooks DO> Cosigner Signature (if applicable): CC: Dr. Eugenio Peralta MD ~ Signed [facility] Work Phone: Evaluation note* Diagnosis Need for COVID-19 vaccine- Primary [facility] Need for vaccination- Primary Need for prophylactic vaccination and inoculation against unspecified single disease [facility] Diagnosis Encounter for screening mammogram for malignant neoplasm of breast- Primary Other [facility] Essential hypertension- Primary Unspecified essential hypertension [facility] Diagnosis Encounter for gynecological examination (general) (routine) without abnormal findings- Primary Encounter for screening mammogram for breast cancer 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 [facility] Diagnosis Encounter for screening mammogram for malignant neoplasm of breast Other screening mammogram [facility] Diagnosis Gastroesophageal reflux disease without esophagitis Esophageal reflux [facility] Diagnosis URI, acute- Primary Acute upper respiratory infections of unspecified site Sore throat Acute pharyngitis [facility] Diagnosis Sinobronchitis- Primary Unspecified sinusitis (chronic) [facility] Diagnosis Need for vaccination- Primary Need for prophylactic vaccination and inoculation against unspecified single disease [facility] Diagnosis Encounter for screening mammogram for malignant neoplasm of breast- Primary Other screening mammogram Dense breast tissue [facility] Diagnosis Dyskinesia of esophagus- Primary Gastroesophageal reflux disease without esophagitis Esophageal reflux Hx of acute gastritis Personal history of unspecified digestive disease [facility] Dyskinesia of esophagus Gastroesophageal reflux disease without esophagitis Esophageal reflux Hx of acute gastritis Personal history of unspecified digestive disease [facility] Diagnosis Dysphagia, unspecified type- Primary Chronic superficial gastritis without bleeding Atrophic gastritis without mention of hemorrhage Long-term current use of proton pump inhibitor therapy Allergic contact dermatitis due to adhesives Contact dermatitis and other eczema due to other chemical products [facility]* Diagnosis Sore throat- Primary Acute pharyngitis URI, acute Acute upper respiratory infections of unspecified site Non-recurrent acute serous otitis media of right ear [facility] Diagnosis [...] facility Wellness examination [facility] Diagnosis Pain- Primary Generalized pain [facility] Diagnosis Arthritis of right sacroiliac joint- Primary [facility] Diagnosis Arthritis of right sacroiliac joint- Primary [facility] Diagnosis Arthritis of right sacroiliac joint- Primary [facility] Diagnosis Plantar fasciitis- Primary Plantar fascial fibromatosis Pes planus of both feet [facility] Diagnosis Symptomatic varicose veins of both lower extremities- Primary Varicose veins of lower extremities with other complications [facility] Diagnosis Plantar fasciitis Plantar fascial fibromatosis Flat feet, bilateral [facility] Diagnosis Pulsatile abdomen Other symptoms involving abdomen and pelvis [facility]* Diagnosis Encounter for screening mammogram for malignant neoplasm of breast Other screening mammogram Dense breast tissue [facility]* Diagnosis Gastroesophageal reflux disease, unspecified whether esophagitis present- Primary Gastroesophageal reflux disease with esophagitis without hemorrhage Gastric polyps Benign neoplasm of stomach Dysphagia, unspecified type [facility]* Diagnosis Asymptomatic postmenopausal state [facility]* Diagnosis Plantar fasciitis- Primary Plantar fascial fibromatosis Flat feet, bilateral [facility]* Diagnosis Symptomatic varicose veins of both lower extremities Varicose veins of lower extremities with other complications [facility] Diagnosis Symptomatic varicose veins of both lower extremities- Primary Varicose veins of lower extremities with other complications [facility] Diagnosis Dyskinesia of esophagus- Primary Gastroesophageal reflux disease without esophagitis Esophageal reflux [facility]* Diagnosis Rib pain on left side- Primary Chest pain, unspecified [facility] Diagnosis Arthritis of right sacroiliac joint- Primary [facility]* Diagnosis Encounter for screening mammogram for malignant neoplasm of breast- Primary Other screening mammogram [facility] Diagnosis Contact dermatitis, unspecified contact dermatitis type, unspecified trigger- Primary [facility]* Diagnosis Gastroesophageal reflux disease without esophagitis Esophageal reflux [facility]* Diagnosis URI, acute Acute upper respiratory infections of unspecified site Acute cough [facility] Diagnosis Pain Generalized pain [facility]* Diagnosis Hand pain, right Pain in limb documented in this encounter [facility] note* Diagnosis Arthritis of right sacroiliac joint Lumbosacral pain Lumbago documented in this encounter [facility] note* Diagnosis Sinobronchitis Unspecified sinusitis (chronic) documented in this encounter [facility] note* Diagnosis Sinus congestion- Primary Other diseases of nasal cavity and sinuses Elevated blood pressure reading without diagnosis of hypertension documented in this encounter [facility] note* Diagnosis Encounter for gynecological examination (general) (routine) without abnormal findings- Primary Encounter for screening mammogram for breast cancer Postmenopausal atrophic vaginitis Screening for malignant neoplasm of cervix Screening for malignant neoplasm of the cervix Encounter for screening for human papillomavirus (HPV) Special screening examination for human papillomavirus (HPV) documented [facility]* Diagnosis Encounter for screening mammogram for malignant neoplasm of breast Other screening mammogram documented in this encounter [facility] note* Diagnosis Primary hypertension- Primary Unspecified essential hypertension Acute pain of right knee documented in this encounter [facility] note* Diagnosis Acute pain of right knee documented in this encounter [facility] note* Diagnosis Primary hypertension- Primary Unspecified essential hypertension documented in this encounter [facility] note* Diagnosis Primary hypertension Unspecified essential hypertension documented in this encounter [facility] note* Diagnosis Onset Date Resolution Status Admit Date Acute hypoxic respiratory failure ac tesha October 08, 2024 4:24am Chest pain acute October 08 4:24am Flash pulmonary edema acute Sep 4:24am ST elevation (STEMI) myocard ial infarction acute October 08, 2024 4:24am ST elevation myocardial infarction (STEMI) of inferior wall acute October 08, 2024 4:24am [facility] Work Phone: Evaluation note* Diagnosis Cardiac arrest (HCC)- Primary Cardiac arrest Cardiac arrest (HCC) Cardiac arrest S/P drug eluting coronary stent placement documented in this encounter [facility] note* Diagnosis ST elevation myocardial infarction involving right coronary artery (HCC)- Primary Acute myocardial infarction of inferoposterior wall, initial episode of care S/P right coronary artery (RCA) stent placement Ischemic cardiomyopathy Other specified forms of chronic ischemic heart disease Mixed hyperlipidemia Aspiration pneumonia due to gastric secretions, unspecified laterality, unspecified part of lung (HCC) Shock (HCC) Shock, unspecified Hx of cardiac arrest Personal history of sudden cardiac arrest Aspiration pneumonia due to gastric secretions, unspecified laterality, unspecified part of lung (HCC) [facility] Diagnosis Aspiration pneumonia due to gastric secretions, unspecified laterality, unspecified part of lung (HCC) [facility]* Phase II, Outpatient Cardiac Rehab Location: None Selected [facility] [employer] Work Phone: Reason for referral (narrative)* Diagnostic Procedure Only (Routine) - Authorized Specialty Diagnoses / Procedures Referred By Esther baugh Referred To Contact [facility] Diagnoses Encounter for screening mammogram for malignant neoplasm of breast Procedures ELLIOT SCREENING SCREENING MAMMOGRAPHY BI 2-VIEW BREAST INC Sharon Matias APRN.CNP [address] [place] [address] [facility] [address] [place] [address] Referral ID Status Reason Start Date Expiration Date Visits Requested Visits Authorized [id number] Authorized Auto-Generat ed Referral 12/10/2021 01/09/2023 1 1 [facility] for referral (narrative)* Diagnostic Procedure Only (Routine) - Pending Review Specialty Diagnoses / Procedures Referred By Esther baugh Referred To Contact [facility] Diagnoses Postmenopausal atrophic vaginitis Procedures ELLIOT SCREENING SCREENING MAMMOGRAPHY BI 2-VIEW BREAST INC Tiffani Salcido APRN.CNP [address] [place] [address] [facility] [address] [place] [address] Referral ID Status Reason Start Date Expiration Date Visits Requested Visits Authorized [id number] Pending Review Auto-Generat ed Referral 01/02/2022 02/01/2023 1 1 [facility] for referral (narrative)* Diagnostic Procedure Only (Routine) - Closed Specialty Diagnoses / Procedures Referred By Esther baugh Referred To Contact [facility] Diagnoses Encounter for screening mammogram for malignant neoplasm of breast Procedures ELLIOT SCREENING SCREENING MAMMOGRAPHY BI 2-VIEW BREAST INC CAD Sharon Ellis APRN.INSOLVENCY CONSULTANT [address] [place] [address] [facility] [address] [place] [address] Referral ID Status Reason Start Date Expiration Date V isits Requested Visits Authorized [id number] Closed Auto-Generate d Referral 12/10/2021 01/09/2023 1 1 [facility] for referral (narrative)* Diagnostic Procedure Only (Routine) - Authorized Specialty Diagnoses / Procedures Referred By Esther baugh Referred To Contact [facility] Diagnoses Encounter for screening mammogram for malignant neoplasm of breast Dense breast tissue Procedures ELLIOT SCREENING W SAIRA SCREENING DIGITAL BREAST TOMOSYNTHESIS BI SCREENING MAMMOGRAPHY BI 2-VIEW BREAST INC [facility] Tiffani Gant APRN.INSOLVENCY CONSULTANT [address] [place] [address] [facility] [address] [place] [address] Referral ID Status Reason Start Date Expiration Date Visits Requested Visits Authorized [id number] Authorized Auto-Generat ed Referral 05/26/2022 06/25/2023 1 1 [facility] for referral (narrative)* Diagnostic Procedure Only (Routine) - Closed Specialty Diagnoses / Procedures Referred By Esther abugh Referred To Contact XR IMAGING Diagnoses Arthritis of right sacroiliac joint Lumbosacral pain Procedures XR LUMBAR GENERAL 3V AP/LAT/L5-S1 RADEX SPINE LUMBOSACRAL 2/3 VIEWS Mavis Hughes PA-C [address] [place] [address] [place] [address] Referral ID Status Reason Start Date Expiration Date V isits Requested Visits Authorized [id number] Closed Auto-Generate d Referral 11/14/2022 12/14/2023 1 1 * Diagnostic Procedure Only (Routine) - Authorized Specialty Diagnoses / Procedures Referred By Contac t Referred To Contact [facility] IM[facility]ING Diagnoses Pulsatile abdomen Procedures US SCREENING FOR AAA (2017) US ABDOMINAL AORTA REAL TIME SCREEN STUDY AAA Mavis Hughes PA-C [address] [place] [address] [place] [address] Referral ID Status Reason Start Date Expiration Date Visits Requested Visits Authorized [id number] Authorized Auto-Generat ed Referral 11/14/2022 12/14/2023 1 1 * Consult, Test, Treat (Routine) - Authorized Specialty Diagnoses / Procedures Referred By Contac t Referred To Contact Pain Management Diagnoses Arthritis of right sacroiliac joint Procedures CONSULT TO PAIN MGT OFFICE/OUTPATIENT NEW HIGH MDM 60-74 MINUTES Mavis Hughes PA-C [address] [place] [address] Referral ID Status Reason Start Date Expiration Date Visits Requested Visits Authorized [id number] Authorized PCP Requested Referral 11/14/2022 11/14/2023 1 1 [facility] for referral (narrative)* Diagnostic Procedure Only (Routine) - Authorized Specialty Diagnoses / Procedures Referred By Contac t Referred To Contact [facility] Diagnoses Pain Procedures XR FOOT GENERAL 3V AP/LAT/OBL BILATERAL RADEX FOOT COMPLETE MINIMUM 3 VIEWS Ameya Ramachandran [address] [place] [address] [facility] [address] [place] [address] Referral ID Status Reason Start Date Expiration Date Visits Requested Visits Authorized [id number] Authorized Auto-Generat ed Referral 11/26/2022 12/26/2023 1 1 [facility] for referral (narrative)* Diagnostic Procedure Only (Routine) - Closed Specialty Diagnoses / Procedures Referred By Contac t Referred To Contact US IMAGING Diagnoses Pulsatile abdomen Procedures US SCREENING FOR AAA (2017) US ABDOMINAL AORTA REAL TIME SCREEN STUDY AAA Mavis Hughes PA-C [address] [place] [address] [place] [address] Referral ID Status Reason Start Date Expiration Date V isits Requested Visits Authorized [id number] Closed Auto-Generate d Referral 11/14/2022 12/14/2023 1 1 [facility] for referral (narrative)* Diagnostic Procedure Only (Routine) - Closed Specialty Diagnoses / Procedures [facility] Referred To Contact [facility] Diagnoses Encounter for screening mammogram for malignant neoplasm of breast Dense breast tissue Procedures ELLIOT SCREENING W SAIRA SCREENING DIGITAL BREAST TOMOSYNTHESIS BI SCREENING MAMMOGRAPHY BI [employer] Tiffani Salcido APRN.CNP [address] [place] [address] [facility] [address] [place] [address] Referral ID Status Reason Start Date Expiration Date V isits Requested Visits Authorized [id number] Closed Auto-Generate d Referral 05/26/2022 06/25/2023 1 1 [facility] for referral (narrative)* Outpatient Procedure (Routine) - Closed Specialty Diagnoses / Procedures [facility] Diagnoses Gastroesophageal reflux disease with esophagitis without hemorrhage Gastric polyps Dysphagia, unspecified type Procedures EGD DIAGNOSTIC ESOPHAGOGASTRODUODENOSC OPY TRANSORAL DIAGNOSTIC Crystal Pastrana PA-C [address] [place] [address] [facility] [place] [address] [place] [address] Referral ID Status Reason Start Date Expiration Date V isits Requested Visits Authorized [id number] Closed Auto-Generate d Referral 07/22/2022 07/23/2023 1 1 [facility] for referral (narrative)* Outpatient Procedure (Routine) - Authorized Specialty Diagnoses / Procedures Referred By Esther t Referred To Contact [facility] [place] Diagnoses Symptomatic varicose veins of both lower extremities Procedures US VENOUS INCOMPETENCY RONNI VAS LAB DUP-SCAN XTR VEINS COMPLETE BILATERAL STUDY Lexy Rivas, [address] [place] [address] [facility] [place] [address] [place] [address] Referral ID Status Reason Start Date Expiration Date Visits Requested Visits Authorized [id number] Authorized Auto-Generat ed Referral 3 02/17/2024 1 [...] Tiffani Salcido APRN.CNP [address] [place] [address] [facility] [address] [place] [address] Referral ID Status Reason Start Date Expiration Date Visits Requested Visits Authorized [id number] Authorized Auto-Generat ed Referral 08/27/2023 09/24/2024 1 1 [facility] for referral (narrative)* Diagnostic Procedure Only (Routine) - Closed Specialty Diagnoses / Procedures Referred By Esther t Referred To Contact [facility] Diagnoses Pain Procedures XR FOOT GENERAL 3V AP/LAT/OBL BILATERAL RADEX FOOT COMPLETE MINIMUM 3 VIEWS Ameya Ramachandran [address] [place] [address] [facility] [address] [place] [address] Referral ID Status Reason Start Date Expiration Date V isits Requested Visits Authorized [id number] Closed Auto-Generate d Referral 11/26/2022 12/26/2023 1 1 [facility] for referral (narrative)* Diagnostic Procedure Only (Urgent) - Closed Specialty Diagnoses / Procedures Referred By Contac t Referred To Contact XR IMAGING Diagnoses Tendonitis of finger Procedures XR HAND GENERAL 3V PA/LAT/OBL RIGHT RADEX HAND MINIMUM 3 VIEWS Aury Albarado PA-C [address] [place] [address] [place] [address] Referral ID Status Reason Start Date Expiration Date V isits Requested Visits Authorized [id number] Closed Auto-Generate d Referral 10/21/2022 11/20/2023 1 1 [facility] for referral (narrative)* Diagnostic Procedure Only (Routine) - Closed Specialty Diagnoses / Procedures Referred By Contac t Referred To Contact XR IMAGING Diagnoses Arthritis of right sacroiliac joint Lumbosacral pain Procedures XR LUMBAR GENERAL 3V AP/LAT/L5-S1 RADEX SPINE LUMBOSACRAL 2/3 VIEWS Mavis Hughes PA-C [address] [place] [address] [place] [address] Referral ID Status Reason Start Date Expiration Date V isits Requested Visits Authorized [id number] Closed Auto-Generate d Referral 11/14/2022 12/14/2023 1 1 [facility] for referral (narrative)* Diagnostic Procedure Only (Routine) - Authorized Specialty Diagnoses / Procedures Referred By Contac t Referred To Contact [facility] Diagnoses Encounter for gynecological examination (general) (routine) without abnormal findings Encounter for screening mammogram for breast cancer Procedures ELLIOT SCREENING W SAIRA SCREENING DIGITAL BREAST TOMOSYNTHESIS BI SCREENING MAMMOGRAPHY BI 2[facility]INSOLVENCY CONSULTANT [address] [place] [address] [facility] [address] [place] [address] Referral ID Status Reason Start Date Expiration Date Visits Requested Visits Authorized [id number] Authorized Auto-Generat ed Referral 02/05/2025 1 1 [facility] for referral (narrative)* Diagnostic Procedure Only (Routine) - Closed Specialty Diagnoses / Procedures Referred By Esther baugh Referred To Contact [facility] Diagnoses Encounter for screening mammogram for malignant neoplasm of breast Procedures ELLIOT SCREENING W SAIRA SCREENING DIGITAL BREAST TOMOSYNTHESIS BI SCREENING MAMMOGRAPHY BI 2[facility]INSOLVENCY CONSULT[facility] [address] [place] [address] [facility] [address] [place] [address] Referral ID Status Reason Start Date Expiration Date V isits Requested Visits Authorized [id number] Closed Auto-Generate d Referral 08/27/2023 09/24/2024 1 1 [facility] for referral (narrative)* Diagnostic Procedure Only (Routine) - Closed Specialty Diagnoses / Procedures Referred By Esther baugh Referred To Contact XR IMAGING Diagnoses Acute pain of right knee Procedures XR KNEE GENERAL 4V AP BOTH/PA BOTH/LAT/MERC RIGHT RADIOLOGIC EXAM KNEE COMPLETE 4/MORE VIEWS Lola Farris APRN.INSOLVENCY CONSULTANT [address] [place] [address] [place] [address] Referral ID Status Reason Start Date Expiration Date V isits Requested Visits Authorized [id number] Closed Auto-Generate d Referral 02/22/2024 03/23/2025 1 1 [facility] for referral (narrative)No reason for referral information availableWSelect [facility] Work Phone: Reason for visit Narrative* Diagnostic Procedure Only (Routine) - Closed Specialty Diagnoses / Procedures Referred By Esther baugh Referred To Contact [facility] Diagnoses Encounter for screening mammogram for malignant neoplasm of breast Procedures ELLIOT SCREENING SCREENING MAMMOGRAPHY BI 2[employer]VIEW [employer] CAD Sharon Ellis, [employer] FACTORY WORKER.INSOLVENCY CONSULTANT [address] [place] [place] [address] [facility] Imaging [address] [place] [address] Referral ID Status Reason Start Date Expiration Date V isits Requested Visits Authorized [id number] Closed Auto-Generate d Referral 12/10/2021 01/09/2023 1 1 [facility] for visit Narrative* Diagnostic Procedure Only (Routine) - Closed Specialty Diagnoses / Procedures Referred By Esther baugh Referred To Contact [facility] Diagnoses Encounter for screening mammogram for malignant neoplasm of breast Dense breast tissue Procedures ELLIOT SCREENING W SAIRA SCREENING DIGITAL BREAST TOMOSYNTHESIS BI SCREENING MAMMOGRAPHY BI 2-VIEW BREAST INC CAD Tiffani Gant, [employer] FACTORY WORKER.INSOLVENCY CONSULTANT [address] [place] [address] [facility] [address] [place] [address] Referral ID Status Reason Start Date Expiration Date V isits Requested Visits Authorized [id number] Closed Auto-Generate d Referral 05/26/2022 06/25/2023 1 1 [facility] for visit Narrative* Outpatient Procedure (Routine) - Closed Specialty Diagnoses / Procedures Referred By Esther baugh Referred To Contact [facility] Diagnoses Gastroesophageal reflux disease with esophagitis without hemorrhage Gastric polyps Dysphagia, unspecified type Procedures EGD DIAGNOSTIC ESOPHAGOGASTRODUODENOSC OPY TRANSORAL DIAGNOSTIC Crystal Pastrana PA-C [address] [place] [address] [facility] [place] [address] [place] [address] Referral ID Status Reason Start Date Expiration Date V isits Requested Visits Authorized [id number] Closed Auto-Generate d Referral 07/22/2022 07/23/2023 1 1 [facility] for visit Narrative* Diagnostic Procedure Only (Routine) - Closed Specialty Diagnoses / Procedures Referred By Contac t Referred To Contact [facility] Diagnoses Pain Procedures XR FOOT GENERAL 3V AP/LAT/OBL BILATERAL RADEX FOOT COMPLETE MINIMUM 3 VIEWS Duarte Ameya [address] [place] [address] [facility] [address] [place] [address] Referral ID Status Reason Start Date Expiration Date V isits Requested Visits Authorized [id number] Closed Auto-Generate d Referral 11/26/2022 12/26/2023 1 1 [facility] for visit Narrative* Diagnostic Procedure Only (Urgent) - Closed Specialty Diagnoses / Procedures Referred By Contac t Referred To Contact XR IMAGING Diagnoses Tendonitis of finger Procedures XR HAND GENERAL 3V PA/LAT/OBL RIGHT RADEX HAND MINIMUM 3 VIEWS Aury Albarado PA-C [address] [place] [address] [place] [address] Referral ID Status Reason Start Date Expiration Date V isits Requested Visits Authorized [id number] Closed Auto-Generate d Referral 10/21/2022 11/20/2023 1 1 [facility] for visit Narrative* Diagnostic Procedure Only (Routine) - Closed Specialty Diagnoses / Procedures Referred By Contac t Referred To Contact XR IMAGING Diagnoses Arthritis of right sacroiliac joint Lumbosacral pain Procedures XR LUMBAR GENERAL 3V AP/LAT/L5-S1 RADEX SPINE LUMBOSACRAL 2/3 VIEWS Mavis Hughes PA-C [address] [place] [address] [place] [address] Referral ID Status Reason Start Date Expiration Date V isits Requested Visits Authorized [id number] Closed Auto-Generate d Referral 11/14/2022 12/14/2023 1 1 [facility] for visit Narrative* Diagnostic Procedure Only (Routine) - Closed Specialty Diagnoses / Procedures Referred By Contac t Referred To Contact [facility] Diagnoses Encounter for screening mammogram for malignant neoplasm of breast Procedures ELLIOT SCREENING W SAIRA SCREENING DIGITAL BREAST TOMOSYNTHESIS BI SCREENING MAMMOGRAPHY BI 2-VIEW BREAST INC CAD Tiffani Gant, [employer] FACTORY WORKER.INSOLVENCY CONSULTANT [address] [place] [address] [facility] [address] [place] [address] Referral ID Status Reason Start Date Expiration Date V isits Requested Visits Authorized [id number] Closed Auto-Generate d Referral 08/27/2023 09/24/2024 1 1 [facility] for visit Narrative* Diagnostic Procedure Only (Routine) - Closed Specialty Diagnoses / Procedures Referred By Esther t Referred To Contact XR IMAGING Diagnoses Acute pain of right knee Procedures XR KNEE GENERAL 4V AP BOTH/PA BOTH/LAT/MERC RIGHT RADIOLOGIC EXAM KNEE COMPLETE 4/MORE VIEWS Lola Farris, [employer] FACTORY WORKER.INSOLVENCY CONSULTANT [address] [place] [address] [place] [address] Referral ID Status Reason Start Date Expiration Date V isits Requested Visits Authorized [id number] Closed Auto-Generate d Referral 02/22/2024 03/23/2025 1 1 [facility] for visit Narrative* Auth/Cert (Routine) Specialty Diagnoses / Procedures Referred By Esther baugh Referred To Contact Diagnoses Cardiac arrest (HCC) Hypotension post [place] Procedures ... Sally Cedeno MD [address] [place] [address] Phone: tel: fax: [facility] Cardiac Thoracic Vascular Intensive Care Unit CTV ICU T1 [address] [place] [address] Phone: tel: Referral ID Status Reason Start Date Expiration Date Visits Re quested Visits Authorized [id number] 1 1 [facility] Summary Purpose Family History No Family History Records Found Relationship Condition Age at Onset Recorded Date/T cachorro Not Specified Diabetes mellitus Unknown Coronary artery disease Unknown Cardiac disease Unknown Myocardial infarction Unknown Chronic obstructive pulmonary disease Unk nown Malignant neoplasm Unknown Hypertension Unknown Advance Directives No Advanced Directives Records FoundDocuments on File Type Date Recorded 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 No October 08, 2024 3:57am Advance Directive Response Recorded Date/ Time Do you have a Healthcare Power of Property Staff Accountant? No October 08, 2024 8:19am Date Activated Date Inactivated Comments 10/08/2024 6:58 PM 10/11/2024 6:45 PM Date Activated Date Inactivated Comments 10/08/2024 6:58 PM 10/11/2024 6:45 PM Advance Directive Response Recorded Date/ Time Do you have a Healthcare Power of Property Staff Accountant? No October 08, 2024 8:19am Advance Directives on File No Dixonus t 2024 1:05pm Living Will Yes November 01, 2024 1:05pm Do you have a Healthcare Power of Property Staff Accountant? Yes November 01, 2024 1:05pm Reason for Referral Specialty Diagnoses / Procedures Referred By Esther baugh Referred To Contact General Surgery Diagnoses Dyskinesia of esophagus Gastroesophageal reflux disease without esophagitis Hx of acute gastritis Procedures CONSULT TO GENERAL SURGERY OFFICE/OUTPATIENT [facility] 60-74 MINUTES Mavis Hughes PA-C [address] [place] [address] Referral ID Status Reason Start Date Expiration Date Visits Requested Visits Authorized [id number] Authorized PCP Requested Referral 06/02/2022 06/02/2023 1 1 Specialty Diagnoses / Procedures Referred By Esther baugh Referred To Contact Vascular Surgery Diagnoses Symptomatic varicose veins of both lower extremities Procedures CONSULT TO VASCULAR SURGERY OFFICE/OUTPATIENT [facility] 60-74 MINUTES Mavis Hughes PA-C [address] [place] [address] Referral ID Status Reason Start Date Expiration Date Visits Requested Visits Authorized [id number] Authorized PCP Requested Referral 01/06/2024 1 1 Specialty Diagnoses / Procedures Referred By Esther baugh Referred To Contact [facility] Diagnoses Arthritis of right sacroiliac joint Procedures CONSULT TO PHYSICAL THERAPY PHYSICAL THERAPY EVALUATION HIGH COMPLEX 45 MINS Mavis Hughes PA-C [address] [place] [address] [facility] [address] [address] Referral ID Status Reason Start Date Expiration Date V isits Requested Visits Authorized [id number] Closed Auto-Generate d Referral 11/20/2022 03/29/2023 99 99 Medications Administered Section Inactive Administered Medications - up to 3 most recent administrations Medication Order MAR Action Action Date Dose Rate Site benzocaine 20% 1 [place] (TOPEX) 1 [place], TOPICAL, DIRECTED, Starting on Thu10/20/22 at 0930, Until Thu10/20/22 at 1329, DOSING DIRECTED BY PHYSICIAN FOR PROCEDURAL SEDATION ONLY - Pharmaceutical Waste: Aerosol -, Intraprocedure Given 10/20/2022 9:01 AM EDT 1 [place] diphenhydrAMINE 12.5-50 mg injection (BENADRYL) 12.5-50 mg, [...] of inferior wall October 08, 2024 4:24am Chief Complaint Admit Date STEMI October 08, 2024 5:39 am STEMI October 08, 2024 6:49 am Reason for Visit Admit Date Acute hypoxic respiratory failure September 272024 6:49am Cardiac arrest October 08, 2024 6:49 am Chest pain October 08, 2024 6:49 am Flash pulmonary edema October 08, 2024 6: 49am HFrEF (heart failure with reduced ejecti on fraction) October 08, 2024 6:49am Shock October 08, 2024 6:[address] elevation (STEMI) myocardial infarcti on October 08, 2024 6:49am ST elevation myocardial infarction (STEM I) of inferior wall October 08, 2024 6:49am Chief Complaint Admit Date STEMI October 08, 2024 5:39 am STEMI October 08, 2024 6:49 am STEMI October 08, 2024 8:28 am S/P 712 [place] STEMI October 20, 2024 9:2 1am Reason for Visit Admit Date ST elevation (STEMI) myocardial infarcti on October 08, 2024 6:49am Acute hypoxic respiratory failure September 272024 6:49am Cardiac arrest October 08, 2024 6:49 am Chest pain October 08, 2024 6:49 am Flash pulmonary edema October 08, 2024 6: 49am HFrEF (heart failure with reduced ejecti on fraction) October 08, 2024 6:49am Shock October 08, 2024 6:[address] elevation myocardial infarction (STEM I) of inferior wall October 08, 2024 6:49am Cardiomyopathy, ischemic October 20, 2024 9:21am ST elevation (STEMI) myocardial infarcti on October 20, 2024 9:21am Stented coronary artery October 20, 2024 9:21am Chief Complaint Admit Date STEMI October 08, 2024 5:39 am STEMI October 08, 2024 6:49 am STEMI October 08, 2024 8:28 am S/P 12 [place] STEMI October 20, 2024 9:2 1am pci with stenting November 01, 2024 12: 45pm Chief Complaint Admit Date STEMI October 08, 2024 5:39 am STEMI October 08, 2024 6:49 am STEMI October 08, 2024 8:28 am S/P 10/08 [place] STEMI October 20, 2024 9:2 1am pci with stenting November 01, 2024 12: 45pm PCI w/stenting, [place] STEMI<12 months Augus t 2024 11:15am Additional Source Comments INFORMATION SOURCE (unrecogn ized section and content) DATE CREATED AUTHOR 06/13/2020 [facility] DATE CREATED AUTHOR AUTHOR'S ORGANIZ ATION 2024 [facility] DATE CREATED AUTHOR AUTHOR'S ORGANIZ ATION 10/16/2024 [facility] DATE CREATED AUTHOR AUTHOR'S ORGANIZ ATION 12/03/2024 [facility] DATE CREATED AUTHOR AUTHOR'S ORGANIZ ATION 12/04/2024 [facility] Source Comments (unrecognize d section and content) In the event this informatio n is protected by the Federal Confidentiality of Alcohol and Drug Abuse Patient Records regulations: The Federal rules restrict any use of the information to criminally investigate or prosecute any alcohol or drug abuse patient.[facility] the event this information is protected by the Federal Confidentiality of Alcohol and Drug Abuse Patient Records regulations: The Federal rules restrict any use of the information to criminally investigate or prosecute any alcohol or drug abuse patient.[facility] HospitalIn the event this information is protected by the Federal Confidentiality of Alcohol and Drug Abuse Patient Records regulations: The Federal rules restrict any use of the information to criminally investigate or prosecute any alcohol or drug abuse patient.[facility] the event this information is protected by the Federal Confidentiality of Alcohol and Drug Abuse Patient Records regulations: The Federal rules restrict any use of the information to criminally investigate or prosecute any alcohol or drug abuse patient.[facility] the event this information is protected by the Federal Confidentiality of Alcohol and Drug Abuse Patient Records regulations: The Federal rules restrict any use of the information to criminally investigate or prosecute any alcohol or drug abuse patient.[facility]In the event this information is protected by the Federal Confidentiality of Alcohol and Drug Abuse Patient Records regulations: The Federal rules restrict any use of the information to criminally investigate or prosecute any alcohol or drug abuse patient.[facility]In the event this information is protected by the Federal Confidentiality of Alcohol and Drug Abuse Patient Records regulations: The Federal rules restrict any use of the information to criminally investigate or prosecute any alcohol or drug abuse patient.[facility] HospitalIn the event this information is protected by the Federal Confidentiality of Alcohol and Drug Abuse Patient Records regulations: The Federal rules restrict any use of the information to criminally investigate or prosecute any alcohol or drug abuse patient.[facility] the event this information is protected by the Federal Confidentiality of Alcohol and Drug Abuse Patient Records regulations: The Federal rules restrict any use of the information to criminally investigate or prosecute any alcohol or drug abuse patient.[facility] the event this information is protected by the Federal Confidentiality of Alcohol and Drug Abuse Patient Records regulations: The Federal rules restrict any use of the information to criminally investigate or prosecute any alcohol or drug abuse patient.[facility] HospitalIn the event this information is protected by the Federal Confidentiality of Alcohol and Drug Abuse Patient Records regulations: The Federal rules restrict any use of the information to criminally investigate or prosecute any alcohol or drug abuse patient.[facility]In the event this information is protected by the Federal Confidentiality of Alcohol and Drug Abuse Patient Records regulations: The Federal rules restrict any use of the information to criminally investigate or prosecute any alcohol or drug abuse patient.[facility]In the event this information is protected by the Federal Confidentiality of Alcohol and Drug Abuse Patient Records regulations: The Federal rules restrict any use of the information to criminally investigate or prosecute any alcohol or drug abuse patient.[facility]In the event this information is protected by the Federal Confidentiality of Alcohol and Drug Abuse Patient Records regulations: The Federal rules restrict any use of the information to criminally investigate or prosecute any alcohol or drug abuse patient.[facility] HospitalIn the event this information is protected by the Federal Confidentiality of Alcohol and Drug Abuse Patient Records regulations: The Federal rules restrict any use of the information to criminally investigate or prosecute any alcohol or drug abuse patient.[facility] HospitalIn the event this information is protected by the Federal Confidentiality of Alcohol and Drug Abuse Patient Records regulations: The Federal rules restrict any use of the information to criminally investigate or prosecute any alcohol or drug abuse patient.[facility] HospitalIn the event this information is protected by the Federal Confidentiality of Alcohol and Drug Abuse Patient Records regulations: The Federal rules restrict any use of the information to criminally investigate or prosecute any alcohol or drug abuse patient.[facility] HospitalIn the event this information is protected by the Federal Confidentiality of Alcohol and Drug Abuse Patient Records regulations: The Federal rules restrict any use of the information to criminally investigate or prosecute any alcohol or drug abuse patient.[facility] HospitalIn the event this information is protected by the Federal Confidentiality of Alcohol and Drug Abuse Patient Records regulations: The Federal rules restrict any use of the information to criminally investigate or prosecute any alcohol or drug abuse patient.[facility] HospitalIn the event this information is protected by the Federal Confidentiality of Alcohol and Drug Abuse Patient Records regulations: The Federal rules restrict any use of the information to criminally investigate or prosecute any alcohol or drug abuse patient.[facility] HospitalIn the event this information is protected by the Federal Confidentiality of Alcohol and Drug Abuse Patient Records regulations: The Federal rules restrict any use of the information to criminally investigate or prosecute any alcohol or drug abuse patient.[facility] HospitalIn the event this information is protected by the Federal Confidentiality of Alcohol and Drug Abuse Patient Records regulations: The Federal rules restrict any use of the information to criminally investigate or prosecute any alcohol or drug abuse patient.[facility] HospitalIn the event this information is protected by the Federal Confidentiality of Alcohol and Drug Abuse Patient Records regulations: The Federal rules restrict any use of the information to criminally investigate or prosecute any alcohol or drug abuse patient.[facility] HospitalIn the event this information is protected by the Federal Confidentiality of Alcohol and Drug Abuse Patient Records regulations: The Federal rules restrict any use of the information to criminally investigate or prosecute any alcohol or drug abuse patient.[facility]In the event this information is protected by the Federal Confidentiality of Alcohol and Drug Abuse Patient Records regulations: The Federal rules restrict any use of the information to criminally investigate or prosecute any alcohol or drug abuse patient.[facility] HospitalIn the event this information is protected by the Federal Confidentiality of Alcohol and Drug Abuse Patient Records regulations: The Federal rules restrict any use of the information to criminally investigate or prosecute any alcohol or drug abuse patient.[facility] HospitalIn the event this information is protected by the Federal Confidentiality of Alcohol and Drug Abuse Patient Records regulations: The Federal rules restrict any use of the information to criminally investigate or prosecute any alcohol or drug abuse patient.[facility] HospitalIn the event this information is protected by the Federal Confidentiality of Alcohol and Drug Abuse Patient Records regulations: The Federal rules restrict any use of the information to criminally investigate or prosecute any alcohol or drug abuse patient.[facility] HospitalIn the event this information is protected by the Federal Confidentiality of Alcohol and Drug Abuse Patient Records regulations: The Federal rules restrict any use of the information to criminally investigate or prosecute any alcohol or drug abuse patient.[facility] HospitalIn the event this information is protected by the Federal Confidentiality of Alcohol and Drug Abuse Patient Records regulations: The Federal rules restrict any use of the information to criminally investigate or prosecute any alcohol or drug abuse patient.[facility] HospitalIn the event this information is protected by the Federal Confidentiality of Alcohol and Drug Abuse Patient Records regulations: The Federal rules restrict any use of the information to criminally investigate or prosecute any alcohol or drug abuse patient.[facility] HospitalIn the event this information is protected by the Federal Confidentiality of Alcohol and Drug Abuse Patient Records regulations: The Federal rules restrict any use of the information to criminally investigate or prosecute any alcohol or drug abuse patient.[facility] HospitalIn the event this information is protected by the Federal Confidentiality of Alcohol and Drug Abuse Patient Records regulations: The Federal rules restrict any use of the information to criminally investigate or prosecute any alcohol or drug abuse patient.[facility] HospitalIn the event this information is protected by the Federal Confidentiality of Alcohol and Drug Abuse Patient Records regulations: The Federal rules restrict any use of the information to criminally investigate or prosecute any alcohol or drug abuse patient.[facility] HospitalIn the event this information is protected by the Federal Confidentiality of Alcohol and Drug Abuse Patient Records regulations: The Federal rules restrict any use of the information to criminally investigate or prosecute any alcohol or drug abuse patient.[facility] HospitalIn the event this information is protected by the Federal Confidentiality of Alcohol and Drug Abuse Patient Records regulations: The Federal rules restrict any use of the information to criminally investigate or prosecute any alcohol or drug abuse patient.[facility] HospitalIn the event this information is protected by the Federal Confidentiality of Alcohol and Drug Abuse Patient Records regulations: The Federal rules restrict any use of the information to criminally investigate or prosecute any alcohol or drug abuse patient.[facility] HospitalIn the event this information is protected by the Federal Confidentiality of Alcohol and Drug Abuse Patient Records regulations: The Federal rules restrict any use of the information to criminally investigate or prosecute any alcohol or drug abuse patient.[facility] HospitalIn the event this information is protected by the Federal Confidentiality of Alcohol and Drug Abuse Patient Records regulations: The Federal rules restrict any use of the information to criminally investigate or prosecute any alcohol or drug abuse patient.[facility] HospitalIn the event this information is protected by the Federal Confidentiality of Alcohol and Drug Abuse Patient Records regulations: The Federal rules restrict any use of the information to criminally investigate or prosecute any alcohol or drug abuse patient.[facility] HospitalIn the event this information is protected by the Federal Confidentiality of Alcohol and Drug Abuse Patient Records regulations: The Federal rules restrict any use of the information to criminally investigate or prosecute any alcohol or drug abuse patient.[facility] HospitalIn the event this information is protected by the Federal Confidentiality of Alcohol and Drug Abuse Patient Records regulations: The Federal rules restrict any use of the information to criminally investigate or prosecute any alcohol or drug abuse patient.[facility] HospitalIn the event this information is protected by the Federal Confidentiality of Alcohol and Drug Abuse Patient Records regulations: The Federal rules restrict any use of the information to criminally investigate or prosecute any alcohol or drug abuse patient.[facility] HospitalIn the event this information is protected by the Federal Confidentiality of Alcohol and Drug Abuse Patient Records regulations: The Federal rules restrict any use of the information to criminally investigate or prosecute any alcohol or drug abuse patient.[facility] HospitalIn the event this information is protected by the Federal Confidentiality of Alcohol and Drug Abuse Patient Records regulations: The Federal rules restrict any use of the information to criminally investigate or prosecute any alcohol or drug abuse patient.[facility] HospitalIn the event this information is protected by the Federal Confidentiality of Alcohol and Drug Abuse Patient Records regulations: The Federal rules restrict any use of the information to criminally investigate or prosecute any alcohol or drug abuse patient.[facility] HospitalIn the event this information is protected by the Federal Confidentiality of Alcohol and Drug Abuse Patient Records regulations: The Federal rules restrict any use of the information to criminally investigate or prosecute any alcohol or drug abuse patient.[facility] HospitalIn the event this information is protected by the Federal Confidentiality of Alcohol and Drug Abuse Patient Records regulations: The Federal rules restrict any use of the information to criminally investigate or prosecute any alcohol or drug abuse patient.[facility] HospitalIn the event this information is protected by the Federal Confidentiality of Alcohol and Drug Abuse Patient Records regulations: The Federal rules restrict any use of the information to criminally investigate or prosecute any alcohol or drug abuse patient.[facility] HospitalIn the event this information is protected by the Federal Confidentiality of Alcohol and Drug Abuse Patient Records regulations: The Federal rules restrict any use of the information to criminally investigate or prosecute any alcohol or drug abuse patient.[facility] HospitalIn the event this information is protected by the Federal Confidentiality of Alcohol and Drug Abuse Patient Records regulations: The Federal rules restrict any use of the information to criminally investigate or prosecute any alcohol or drug abuse patient.[facility] HospitalIn the event this information is protected by the Federal Confidentiality of Alcohol and Drug Abuse Patient Records regulations: The Federal rules restrict any use of the information to criminally investigate or prosecute any alcohol or drug abuse patient.[facility] HospitalIn the event this information is protected by the Federal Confidentiality of Alcohol and Drug Abuse Patient Records regulations: The Federal rules restrict any use of the information to criminally investigate or prosecute any alcohol or drug abuse patient.[facility] HospitalIn the event this information is protected by the Federal Confidentiality of Alcohol and Drug Abuse Patient Records regulations: The Federal rules restrict any use of the information to criminally investigate or prosecute any alcohol or drug abuse patient.[facility] HospitalIn the event this information is protected by the Federal Confidentiality of Alcohol and Drug Abuse Patient Records regulations: The Federal rules restrict any use of the information to criminally investigate or prosecute any alcohol or drug abuse patient.[facility] HospitalIn the event this information is protected by the Federal Confidentiality of Alcohol and Drug Abuse Patient Records regulations: The Federal rules restrict any use of the information to criminally investigate or prosecute any alcohol or drug abuse patient.[facility] HospitalIn the event this information is protected by the Federal Confidentiality of Alcohol and Drug Abuse Patient Records regulations: The Federal rules restrict any use of the information to criminally investigate or prosecute any alcohol or drug abuse patient.[facility] HospitalIn the event this information is protected by the Federal Confidentiality of Alcohol and Drug Abuse Patient Records regulations: The Federal rules restrict any use of the information to criminally investigate or prosecute any alcohol or drug abuse patient.[facility] HospitalIn the event this information is protected by the Federal Confidentiality of Alcohol and Drug Abuse Patient Records regulations: The Federal rules restrict any use of the information to criminally investigate or prosecute any alcohol or drug abuse patient.[facility] HospitalIn the event this information is protected by the Federal Confidentiality of Alcohol and Drug Abuse Patient Records regulations: The Federal rules restrict any use of the information to criminally investigate or prosecute any alcohol or drug abuse patient.[facility] HospitalIn the event this information is protected by the Federal Confidentiality of Alcohol and Drug Abuse Patient Records regulations: The Federal rules restrict any use of the information to criminally investigate or prosecute any alcohol or drug abuse patient.[facility] HospitalIn the event this information is protected by the Federal Confidentiality of Alcohol and Drug Abuse Patient Records regulations: The Federal rules restrict any use of the information to criminally investigate or prosecute any alcohol or drug abuse patient.[facility] HospitalIn the event this information is protected by the Federal Confidentiality of Alcohol and Drug Abuse Patient Records regulations: The Federal rules restrict any use of the information to criminally investigate or prosecute any alcohol or drug abuse patient.[facility] HospitalIn the event this information is protected by the Federal Confidentiality of Alcohol and Drug Abuse Patient Records regulations: The Federal rules restrict any use of the information to criminally investigate or prosecute any alcohol or drug abuse patient.[facility] HospitalIn the event this information is protected by the Federal Confidentiality of Alcohol and Drug Abuse Patient Records regulations: The Federal rules restrict any use of the information to criminally investigate or prosecute any alcohol or drug abuse patient.[facility] HospitalIn the event this information is protected by the Federal Confidentiality of Alcohol and Drug Abuse Patient Records regulations: The Federal rules restrict any use of the information to criminally investigate or prosecute any alcohol or drug abuse patient.[facility] HospitalIn the event this information is protected by the Federal Confidentiality of Alcohol and Drug Abuse Patient Records regulations: The Federal rules restrict any use of the information to criminally investigate or prosecute any alcohol or drug abuse patient.[facility] Reason for Visit (unrecogniz ed section and content) Reason Comments Physical Therapy Specialty Diagnoses / Procedures Referred By Contelsa t Referred To Contact [facility] Diagnoses Arthritis of right sacroiliac joint Procedures CONSULT TO PHYSICAL THERAPY PHYSICAL THERAPY EVALUATION HIGH COMPLEX 45 MINS Mavis Hughes PA-C [address] [place] [address] [facility] [place] [address] Referral ID Status Reason Start Date Expiration Date Visits Requested Visits Authorized [id number] Authorized Auto-Generat ed Referral 11/20/2022 03/29/2023 99 [...] HIGH MDM 60-74 MINUTES Mavis Hughes PA-C [address] [place] [address] Referral ID Status Reason Start Date Expiration Date V isits Requested Visits Authorized [id number] Closed PCP Requested Referral 06/02/2022 06/02/2023 1 [...] TIME SCREEN STUDY AAA Mavis Hughes PA-C [address] [place] [address] [place] [address] Referral ID Status Reason Start Date Expiration Date V isits Requested Visits Authorized [id number] Closed Auto-Generate d Referral 11/14/2022 12/14/2023 1 1 Reason Comments New Patient Specialty Diagnoses / Procedures Referred By Esther t Referred To Contact Vascular Surgery Diagnoses Symptomatic varicose veins of both lower extremities Procedures CONSULT TO VASCULAR SURGERY OFFICE/OUTPATIENT NEW HIGH MDM 60-74 MINUTES Mavis Hughes PA-C [address] [place] [address] Referral ID Status Reason Start Date Expiration Date V isits Requested Visits Authorized [id number] Closed PCP Requested Referral 01/06/2023 01/06/2024 1 1 Reason Comments Established Patient Reason Comments Pain L side rib pain x1 w torres martinez Reason Comments Wellness Reason Comments Derm Problem rash Reason Onset Date Comments Refill Request 12/14/2023 Reason Comments Appointment Patient Update Reason Comments Hypertension Blood pressure follo w up Reason Comments Well Woman Reason Comments Recheck BP check Reason Comments Blood Pressure Reason Onset Date Comments Refill Request 08/27/2024 Reason Onset Date Comments Other 2024 Post [place] discharg e phone call Reason Comments Hospital F/U Care Teams (unrecognized sec tion and content) Press Cutter Relationship Specialty Start Date End Date Mavis Hughes PA-C [address] [place], [place] [id number] PCP - General Family Practice 09/14/17 Press Cutter Relationship Specialty Start Date End Date Mavis Hughes PA-C [address] [place] [address] PCP - General Family Practice 09/14/17 Press Cutter Relationship Specialty Start Date End Date Mavis Hughes PA-C [address] [place] [address] PCP - General Family Practice 09/14/17 Press Cutter Relationship Specialty Start Date End Date Mavis Hughes PA-C [address] [place] [address] PCP - General Family Medicine 09/14/17 Press Cutter Relationship Specialty Start Date End Date Mavis Hughes PA-C [address] [place] [address] PCP - General Family Medicine 09/14/17 Press Cutter Relationship Specialty Start Date End Date Mavis Hughes PA-C [address] [place] [address] PCP - General Family Medicine 09/14/17 Press Cutter Relationship Specialty Start Date End Date Mavis Hughes PA-C [address] [facility] [place] [address] PCP - General Family Medicine 09/14/17 Press Cutter Relationship Specialty Start Date End Date Mavis Hughes PA-C [address] [facility] [place] [address] PCP - General Family Medicine 09/14/17 Press Cutter Relationship Specialty Start Date End Date Mavis Hughes PA-C [address] [facility] [place] [address] PCP - General Family Medicine 09/14/17 Press Cutter Relationship Specialty Start Date End Date Mavis Hughes PA-C [address] [facility] [place] [address] PCP - General Family Medicine 09/14/17 Press Cutter Relationship Specialty Start Date End Date Mavis Hughes PA-C [address] [facility] [place] [address] PCP - General Family Medicine 09/14/17 Press Cutter Relationship Specialty Start Date End Date Mavis Hughes PA-C [address] [facility] [place] [address] PCP - General Family Medicine 09/14/17 Press Cutter Relationship Specialty Start Date End Date aMvis Hughes PA-C [address] [facility] [place] [address] PCP - General Family Medicine 09/14/17 Press Cutter Relationship Specialty Start Date End Date Eugenio Peralta MD [address] [facility] [place] [address] PCP - General Family Medicine 08/20/22 Press Cutter Relationship Specialty Start Date End Date Eugenio Peralta MD [address] [place], [place] [address] PCP - General Family Medicine 08/20/22 Press Cutter Relationship Specialty Start Date End Date Eugenio Peralta MD [address] [place], [place] [address] PCP - General Family Medicine 08/20/22 Press Cutter Relationship Specialty Start Date End Date Eugenio Peralta MD [address] [place], [place] [address] PCP - General Family Medicine 08/20/22 Press Cutter Relationship Specialty Start Date End Date Eugenio Peralta MD [address] [place] [address] PCP - General Family Medicine 08/20/22 Press Cutter Relationship Specialty Start Date End Date Eugenio Peralta MD [address] [place] [address] PCP - General Family Medicine 08/20/22 Press Cutter Relationship Specialty Start Date End Date Eugenio Peralta MD [address] [place] [address] PCP - General Family Medicine 08/20/22 Press Cutter Relationship Specialty Start Date End Date Eugenio Peralta MD [address] [place], [place] [address] PCP - General Family Medicine 08/20/22 Press Cutter Relationship Specialty Start Date End Date Eugenio Peralta MD [address] [place], [place] [address] PCP - General Family Medicine 08/20/22 Press Cutter Relationship Specialty Start Date End Date Eugenio Peralta MD [address] [place] [address] PCP - General Family Medicine 08/20/22 Press Cutter Relationship Specialty Start Date End Date Eugenio Peralta MD [address] [place] [address] PCP - General Family Medicine 08/20/22 Press Cutter Relationship Specialty Start Date End Date Eugenio Peralta MD [address] [place] [address] PCP - General Family Medicine 08/20/22 Press Cutter Relationship Specialty Start Date End Date Eugenio Peralta MD [address] [place] [address] PCP - General Family Medicine 08/20/22 Press Cutter Relationship Specialty Start Date End Date Eugenio Peralta MD [address] [place] [address] PCP - General Family Medicine 08/20/22 Press Cutter Relationship Specialty Start Date End Date Eugenio Peralta MD [address] [place] [address] PCP - General Family Medicine 08/20/22 Press Cutter Relationship Specialty Start Date End Date Eugenio Peralta MD [address] [place], [place] [address] PCP - General Family Medicine 08/20/22 Press Cutter Relationship Specialty Start Date End Date Eugenio Peralta MD [address] [place], [place] [address] PCP - General Family Medicine 08/20/22 Press Cutter Relationship Specialty Start Date End Date Eugenio Peralta MD [address] [place] [address] PCP - General Family Medicine 08/20/22 Press Cutter Relationship Specialty Start Date End Date Eugenio Peralta MD [address] [place] [address] PCP - General Family Medicine 08/20/22 Press Cutter Relationship Specialty Start Date End Date Eugenio Peralta MD [address] [place] [address] PCP - General Family Medicine 08/20/22 Press Cutter Relationship Specialty Start Date End Date Eugenio Peralta MD [address] [place] [address] PCP - General Family Medicine 08/20/22 Press Cutter Relationship Specialty Start Date End Date Eugenio Peralta MD [address] [place] [address] PCP - General Family Medicine 08/20/22 Press Cutter Relationship Specialty Start Date End Date Eugenio Peralta MD [address] [place] [address] PCP - General Family Medicine 08/20/22 Press Cutter Relationship Specialty Start Date End Date Eugenio Peralta MD [address] [place] [address] PCP - General Family Medicine 08/20/22 Press Cutter Relationship Specialty Start Date End Date Eugenio Peralta MD [address] [place], [place] [address] PCP - General Family Medicine 08/20/22 Press Cutter Relationship Specialty Start Date End Date Mavis Hughes PA-C [address] [place] [address] PCP - General Family Medicine 09/14/17 08/19/22 Press Cutter Relationship Specialty Start Date End Date Eugenio Peralta MD [address] [place] [address] PCP - General Family Medicine 08/20/22 Press Cutter Relationship Specialty Start Date End Date Eugenio Peralta MD [address] [place] [address] PCP - General Family Medicine 08/20/22 Press Cutter Relationship Specialty Start Date End Date Eugenio Peralta MD [address] [place] [address] PCP - General Family Medicine 08/20/22 Press Cutter Relationship Specialty Start Date End Date Eugenio Peralta MD [address] [place] [address] PCP - General Family Medicine 08/20/22 Press Cutter Relationship Specialty Start Date End Date Eugenio Peralta MD [address] [place] [address] PCP - General Family Medicine 08/20/22 Press Cutter Relationship Specialty Start Date End Date Eugenio Peralta MD [address] [place] [address] PCP - General Family Medicine 08/20/22 Lola Farris, [employer] FACTORY WORKER.INSOLVENCY CONSULTANT [address] [place] [address] [facility] 03/07/24 Natalia Monge APRN.INSOLVENCY CONSULTANT [address] [place] [address] [facility] 03/07/24 Press Cutter Relationship Specialty Start Date End Date Eugenio Peralta MD [address] [place] [address] PCP - General Family Medicine 08/20/22 Lola Farris APRN.INSOLVENCY CONSULTANT [address] [place] [address] [facility]24 Natalia Monge APRN.INSOLVENCY CONSULTANT [address] [place], [place] [address] [facility] 03/07/24 Team Status: Active Member Role/Relationship Status [...] Attending Provider Active Start: October 08, 2024 Team Status: Active Member Role/Relationship Status Dates [...] Attending Provider Active Start: October 08, 2024 Dr. Dylan Soni DO Other Provider Active Start: October 08, 2024 Dr. Mehnaz Gonzalez DO Other Provider Active S tart: October 08, 2024 Team Status: Inactive Member Role/Relationship Status Dates Dr. Eugenio Peralta MD Primary Care Provider Active Start: October 08, 2024 End: October 08, 2024 Dr. Brando Crooks DO Emergency Provider Active Start: October 08, 2024 End: October 08, 2024 Dr. Eve Rowley MD Other Provider Active Start : October 08, 2024 End: October 08, 2024 Dr. Dylan Soni DO Admit Provider Active Start: October 08, 2024 End: October 08, 2024 Dr. Dlyan Soni DO Other Provider Active Start: October 08, 2024 End: October 08, 2024 Dr. Mehnaz Gonzalez DO Attending Provider Active Start: October 08, 2024 End: October 08, 2024 Press Cutter Relationship Specialty Start Date End Date Eugenio Peralta MD [address] [place] [address] PCP - General Family Medicine 10/08/24 Mehnaz Gonzalez [address] [place] [address] [facility] 10/08/24 Press Cutter Relationship Specialty Start Date End Date Eugenio Peralta MD [address] [place], [place] [address] PCP - General Family Medicine 10/08/24 Mehnaz Gonzalez [address] [place], [place] [address] Hospitalist 10/08/24 Team Status: Active Member Role/Relationship Status Dates Dr. Eugenio Peralta MD Primary Care Provider Active Start: October 08, 2024 Dr. Eve Rowley MD Attending Provider Active S tart: October 08, 2024 Dr. Mehnaz Gonzalez DO Referring Provider Active Start: October 08, 2024 Team Status: Inactive Member Role/Relationship Status Dates Dr. Eugenio Peralta MD Primary Care Provider Active Start: October 20, 2024 End: October 20, 2024 Dr. Eugenio Peralta MD Referring Provider Active Start: October 20, 2024 End: October 20, 2024 Tova Latif PA, PA Attending Provider Active Start: October 20, 2024 End: October 20, 2024 Press Cutter Relationship Specialty Start Date End Date Eugenio Peralta MD [address] [facility] [place] [address] PCP - General Family Medicine 08/20/22 Lola Farris, WO[employer] FACTORY WORKER.INSOLVENCY CONSULTANT [address] [place] [address] [facility] 03/07/24 Natalia Monge [employer] FACTORY WORKER.INSOLVENCY CONSULTANT [address] [facility] [place] [address] [facility] 03/07/24 Press Cutter Relationship Specialty Start Date End Date Eugenio Peralta MD [address] [facility] [address] PCP - General Family Medicine 08/20/22 Lola Farris, WOOD [employer] FACTORY WORKER.INSOLVENCY CONSULTANT [address] [place] [address] [facility] 03/07/24 Natalia Monge [employer] FACTORY WORKER.INSOLVENCY CONSULTANT [address] [facility] [address] [facility] 03/07/24 Team Status: Inactive Member Role/Relationship Status Dates Dr. Eugenio Peralta MD Primary Care Provider Active Start: November 01, 2024 End: November 01, 2024 Dr. He Musa MD Attending Provider Active S tart: November 01, 2024 End: November 01, 2024 Dr. He Musa MD Referring Provider Active S tart: November 01, 2024 End: November 01, 2024 Team Status: Inactive Member Role/Relationship Status Dates Dr. Eugenio Peralta MD Primary Care Provider Active Start: November 25, 2024 End: November 27, 2024 Dr. He Musa MD Attending Provider Active S tart: November 25, 2024 End: November 27, 2024 Dr. He Musa MD Referring Provider Active S tart: November 25, 2024 End: November 27, 2024 Goals (unrecognized section and content) Goals may be documented in a n alternate section Scheduled Active and Recently Administ ered Medications (unrecognized section and content) Medication Order 10/09/2024 10/10/2024 10/11/2024 acetaminophen (Tylenol) solution 1,000 mg 1,000 mg, Oral, Every 8 hours, First dose on Thu10/08/24 at 1900, Maximum dose of acetaminophen is 4000 mg from all sources in 24 hours. 0258 (Given - Provider: Elyssa Perez RN)1034 (Given - Provider: Pamella Dyson, OSWALDO)2007 (Given - Provider: Kenyatta Villalobos RN) 0334 (Given - Provider: Kenyatta Villalobos RN)1106 (Given - Provider: Rafael Howe RN)1846 (Given - Provider: Rafael Howe RN) 0359 (Given - Provider: Kenyatta Villalobos RN)1151 (Given - Provider: Faizan Salmon, OSWALDO) amoxicillin-clavulanate (Augmentin) 875-125 MG per tablet 1 tablet 1 tablet (875 mg), Oral, Every 12 hours scheduled (2 times per day), First dose on 10/10/24 at 2100, For 11 doses, Suspected Indication (Select all that apply): Aspiration Pneumonia 2042 (Given - Provider: Kenyatta Villalobos RN) 0922 (Given - Provider: Faizan Salmon, OSWALDO) ampicillin-sulbactam (Unasyn) 3,000 mg in sodium chloride 0.9 % 100 mL IVPB (Add-[place]) (CANCELED) 3,000 mg, IntraVENous, at 200 mL/hr, Administer over 30 Minutes, Every 6 hours, First dose on 10/08/24 at 2200, ADD-[place] bag, Suspected Indication (Select all that apply): Aspiration Pneumonia 0300 (New Bag - Provider: Elyssa Perez RN)0330 (Stopped - Provider: Elyssa Perez RN) ampicillin-sulbactam (Unasyn) 3,000 mg in sodium chloride 0.9 % 100 mL IVPB (Add-[place]) (COMPLETED) 3,000 mg, IntraVENous, at 200 mL/hr, Administer over 30 Minutes, Every 6 hours, First dose (after last modification) on 10/09/24 at 1000, For 5 doses, ADD-[place] bag, Suspected Indication (Select all that apply): Aspiration Pneumonia 0913 (New Bag - Provider: Pamella Dyson RN)1001 (Stopped - Provider: Pamella Dyson RN)1616 (New Bag - Provider: Pamella Dyson RN)1949 (Stopped - Provider: Pamella Dyson RN)2137 (New Bag - Provider: Kenyatta Villalobos RN)2211 (Stopped - Provider: Kenyatta Villalobos RN) 0334 (New Bag - Provider: Kenyatta Villalobos RN)0409 (Stopped - Provider: Kenyatta Villalobos RN)1104 (New Bag - Provider: Rafael Howe, OSWALDO)1159 (Stopped - Provider: Rafael Howe RN) aspirin EC tablet 81 mg 81 mg, Oral, Daily, First dose on 10/08/24 at 1945, Do not crush, chew, or split. 0608 (Unheld by provider - Provider: Joel Guan DO)0846 (Given - Provider: Pamella Dyson RN) 0827 (Given - Provider: Rafael Howe RN) 0922 (Given - Provider: Faizan Salmon RN) chlorhexidine (Hibiclens) 4 % solution Topical, Daily, First dose on 10/09/24 at 1400 0500 (Given - Provider: Kenyatta Villalobos RN)1714 (Given - Provider: Rafael Howe RN - Comment: dressing changed) enoxaparin (Lovenox) syringe 40 mg 40 mg, SubCUTAneous, Every 24 hours scheduled (Daily), First dose on Thu10/08/24 at 1900, Indication of Use: Prophylaxis-DVT/PE, Indications: Prophylaxis of Venous Thromboembolism 0846 (Given - Provider: Pamella Dyson RN) 08 (Given - Provider: Rafael Howe RN) 0922 (Given - Provider: Faizan Salmon RN) furosemide (Lasix) injection 40 mg (COMPLETED) 40 mg, IntraVENous, Once, On Thu10/09/24 at 0800, For 1 dose 0847 (Given - Provider: Pamella Dyson RN) Lidocaine 4 % patch 1 patch 1 patch, TransDERmal, Administer over 12 Hours, Daily, First dose on Thu10/09/24 at 0900, Apply patch to painful areas. Patch may remain in place for up to 12 hours in any 24 hour period. 0846 (Medication Applied - Provider: Pamella Dyson RN)2007 (Medication Removed - Provider: Kenyatta Villalobos RN) 08 (Medication Applied - Provider: Rafael Howe RN)2043 (Medication Removed - Provider: Kenyatta Villalobos RN) 0923 (Medication Applied - Provider: Faizan Salmon RN)1500 (Due: Medication Removed - Provider: Automatic Discharge Provider - Comment: Time automatically adjusted from order being discontinued) lisinopril tablet 10 mg 10 mg, Oral, Daily, First dose on Thu10/11/24 at 0900 0922 (Given - Provider: Faizan Salmon RN) magnesium sulfate IVPB premix 2,000 mg (COMPLETED) 2,000 mg, IntraVENous, at 25 mL/hr, Administer over 2 Hours, Once, On Thu10/10/24 at 0730, For 1 dose, Recommended infusion rate not to exceed 1,000 mg (milligrams) per hour. 0827 (New Bag - Provider: Rafael Howe RN)1108 (Stopped - Provider: Rafael Howe RN) metoprolol succinate XL (Toprol-XL) 24 hr tablet 50 mg 50 mg, Oral, Daily, First dose on Thu10/11/24 at 0900, Do not crush or chew. 09 (Given - Provider: Faizan Salmon, OSWALDO) metoprolol tartrate (Lopressor) tablet 25 mg (CANCELED) 25 mg, Oral, 2 times daily, First dose (after last modification) on Thu10/10/24 at 0945 1114 (Given - Provider: Rafael Howe, OSWALDO)2042 (Given - Provider: Kenyatta Villalobos RN) mupirocin (Bactroban) 2 % ointment 1 Application 1 Application, Nasal, 2 times daily, First dose on Thu10/08/24 at 2100, For 5 days, Indications: MRSA Nasal Decolonization 08 (Given - Provider: Pamella Dyson, OSWALDO)2007 (Given - Provider: Kenyatta Villalobos RN) 827 (Given - Provider: Rafael Howe RN)2042 (Given - Provider: Kenyatta Villalobos RN) 922 (Given - Provider: Faizan Salmon RN) pantoprazole (ProtoNix) EC tablet 20 mg(Linked Group 1) 20 mg, Oral, Daily before breakfast, First dose (after last modification) on Thu10/10/24 at 0600, Do not crush, chew, or split. 0500 (Given - Provider: Kenyatta Villalobos RN) 0543 (Given - Provider: Kenyatta Villalobos RN) pantoprazole (ProtoNix) EC tablet 40 mg (CANCELED) 40 mg, Oral, Daily before breakfast, First dose on Thu10/09/24 at 0600, Do not crush, chew, or split. 0527 (Given - Provider: Elyssa Perez RN) potassium chloride (Klor-Con) packet 40 mEq (COMPLETED) 40 mEq, Oral, Once, On Thu10/09/24 at 0900, For 1 dose, Dissolve each packet in 4 ounces of water = 5 mEq per 1 oz fluid., Indications: Hypokalemia 0902 (Given - Provider: Pamella Dyson, OSWALDO) potassium phosphates 40 mmol in sodium chloride 0.9 % 500 mL IVPB (COMPLETED) 40 mmol, IntraVENous, at 83.3 mL/hr, Administer over 360 Minutes, Once, On Thu10/10/24 at 1030, For 1 dose 1119 (New Bag - Provider: Rafael Howe, RN)2012 (Stopped - Provider: Kenyatta Villalobos RN - Comment: not infusing upon assessment) rosuvastatin (Crestor) tablet 40 mg 40 mg, Oral, Nightly, First dose (after last modification) on 10/09/24 at 2100 2137 (Given - Provider: Kenyatta Villalobos, OSWALDO) 2045 (Given - Provider: Kenyatta Villalobos RN) ticagrelor (Brilinta) tablet 90 mg (CANCELED) 90 mg, Per G Tube, 2 times daily, First dose (after last modification) on 10/08/24 at 2100 0846 (Given - Provider: Pamella Dyson RN) ticagrelor (Brilinta) tablet 90 mg 90 mg, Oral, 2 times daily, First dose (after last modification) on 10/09/24 at 2100 2137 (Given - Provider: Kenyatta Villalobos RN) 08 (Given - Provider: Rafael Howe RN)2042 (Given - Provider: Kenyatta Villalobos RN) 09 (Given - Provider: Faizan Salmon RN) PRN Medication Order 10/09/2024 10/10/2024 10/11/2024 naloxone (Narcan) injection 0.4 mg 0.4 mg, IntraVENous, Every 5 min PRN, opioid reversal, respiratory depression, over sedation, RR <10, pinpoint pupils, Starting on 10/08/24 at 1854, +++notify rn coronary care unit provider if used+++ ondansetron (Zofran) injection 4 mg(Linked Group 2) 4 mg, IntraVENous, Every 6 hours PRN, nausea, vomiting, Starting on 10/08/24 at 1854, 1st Line. Give IV if patient is unable to take orally. If inadequate response within 60 minutes, proceed to next-line agent or contact provider if no further options ordered. ondansetron ODT (Zofran-ODT) disintegrating tablet 4 mg(Linked Group 2) 4 mg, Oral, Every 8 hours PRN, nausea, vomiting, Starting on 10/08/24 at 1854, 1st Line. If inadequate response within 60 minutes, proceed to next-line agent or contact provider if no further options ordered. Patient should allow tablet to dissolve on tongue. Do not remove from blister pack until just before administering. oxyCODONE (Roxicodone) immediate release tablet 2.5 mg(Linked Group 3) 2.5 mg, Oral, Every 4 hours PRN, moderate pain (4-6), Starting on 10/09/24 at 0748 0111 (See Alternativ e - Provider: Kenyatta Villalobos RN) oxyCODONE (Roxicodone) immediate release tablet 5 mg(Linked Group 3) 5 mg, Oral, Every 4 hours PRN, severe pain (7-10), Starting on 10/09/24 at 0748 0111 (Given - Provid er: Kenyatta Villalobos RN) perflutren protein A microsphere (Optison) 3 mL in sodium chloride (PF) 0.9 % 10 mL IV (COMPLETED) 0-10 mL, IntraVENous, IMG once PRN, other, Suboptimal echo image, Starting on 10/09/24 at 1141, For 1 dose, CV Procedural Medications, Administer via slow IVP for suboptimal echocardiogram enhancement. May administer as divided doses to reach optimal image enhancement 1038 (Given - Provider: Rafael Howe RN) phenol (Chloraseptic) 1.4 % mouth/throat spray 1 spray 1 spray, Mouth/Throat, Every 2 hour PRN, sore throat, Starting on 10/09/24 at 0540, Instruct patient to spit out after 15 seconds. 0828 (Given - Provider: aRfael Howe RN)1716 (Given - Provider: Rafael Howe RN) polyethylene glycol (PEG) 3350 (Miralax) packet 17 g 17 g, Oral, Daily PRN, constipation, Starting on 10/08/24 at 1857, Indications: Constipation sodium chloride 0.9% (NS) flush 10 mL 10 mL, IntraCATHeter, PRN, line care, before blood draws, before and after infusion or medication administration, Starting on 10/08/24 at 1935, Use 10 mL or larger syringe. Linked Groups Order Group 1: pantoprazole (ProtoNix) EC tablet 20 mgJump to med 20 mg, Oral, Daily before breakfast, First dose (after last modification) on Thu10/10/24 at 0600, Do not crush, chew, or split. Group 2: ondansetron ODT (Zofran-ODT) disintegrating tablet 4 mgJump to med 4 mg, Oral, Every 8 hours PRN, nausea, vomiting, Starting on 10/08/24 at 1854, 1st Line. If inadequate response within 60 minutes, proceed to next-line agent or contact provider if no further options ordered. Patient should allow tablet to dissolve on tongue. Do not remove from blister pack until just before administering. Or ondansetron (Zofran) injection 4 mgJump to med 4 mg, IntraVENous, Every 6 hours PRN, nausea, vomiting, Starting on 10/08/24 at 1854, 1st Line. Give IV if patient is unable to take orally. If inadequate response within 60 minutes, proceed to next-line agent or contact provider if no further options ordered. Group 3: oxyCODONE (Roxicodone) immediate release tablet 2.5 mgJump to med 2.5 mg, Oral, Every 4 hours PRN, moderate pain (4-6), Starting on 10/09/24 at 0748 Or oxyCODONE (Roxicodone) immediate release tablet 5 mgJump to med 5 mg, Oral, Every 4 hours PRN, severe pain (7-10), Starting on 10/09/24 at 0748 FOR RECORDS PERTAINING TO PATIENTS WHO ARE [...] BE BASED ON THE PRIMARY CLINICAL RECORDS. [employer] [facility]. provides no warranty or guarantee of the accuracy or completeness of information in this document.
[2024-12-04 20:08] LABS: Hematocrit 39.9 % (37-47); Hemoglobin 13.0 g/dL (12.0-15.0); Immature Granulocytes Count 0.020 X10^3/uL (0.0-0.0); Mean Corp Hgb Conc 32.6 g/dL (32-36); Mean Corpuscular Volume 87.9 fL (81-99); Mean Platelet Vol. 11.0 fl (6.2-12.0); NRBC Flagged by Analyzer 0 % (0-5); Platelet Count 195 K/mm3 (150-450); RBC Distribution Width CV 14.3 % (11.6-14.6); RBC Distribution Width SD 45.8 fl (35.1-43.9); Red Blood Count 4.54 M/mm3 (4.2-5.4); White Blood Count 7.6 K/mm3 (4.4-11.0)
[2024-12-04 20:31] LABS: Anion Gap 14 (5-15); BUN 15 mg/dL (4-19); BUN/Creat Ratio 12.8 RATIO (10-20); Calcium,Total 9.8 mg/dL (7.6-11.0); Carbon Dioxide 21.3 mmol/L (21.0-32.0); Chloride 105 mmol/L (98-108); Estimated Creatinine Clearance 49.87 ml/min (50-250); Glucose 128 mg/dL (70-99); Potassium 4.0 mmol/L (3.3-5.1); Pro- Brain NATRIURETIC PEPTIDE 3004 pg/mL (<=900); Troponin T High Sensitivity 18 ng/L (<=14)
--- NOTE | 2024-12-04 20:40 | CT_ITS ---
PROCEDURE: CTA CHEST W/WO CONTRAST 12/04/2024 REASON FOR EXAM: SOB RECENT STENT PLACEMENT TECHNIQUE: Procedure Code: [id number] Modality: CT Procedure: CTA CHEST W/WO CONTRAST Multiplanar Sagittal and Coronal images were obtained. 3D reconstructions CONTRAST: Isovue 370 VOLUME: 100 mL One or more dose reduction techniques were used (e.g., Automated exposure control, adjustment of the mA and/or kV according to patient size, use of iterative reconstruction technique). RADIATION DOSE SUMMARY: CTDlvol: 23 mGy DLP: 338 mGycm FINDINGS: No lung windows are supplied. No axillary masses. Normal caliber of the aortic arch. No ascending aortic aneurysm or dissection. Negative for significant pericardial fluid. No coronary calcification. Distal thoracic aorta intact. Upper abdominal aorta normal in caliber. Small cysts versus hemangiomas are seen in the liver. No mediastinal or hilar lymphadenopathy. No visible pulmonary emboli. CT/CTA Chest W/WO Contrast IMPRESSION: No acute abnormality [facility]
[2024-12-04 20:46] VITALS: BP 121/58; PULSE 66; RESP 14; TEMP 37.6; O2SAT 99
[2024-12-04 21:00] VITALS: BP 125/60; PULSE 69; RESP 19; TEMP 37.6; O2SAT 100
[2024-12-04] MEDS: 0.9% Normal Saline (500mL Bag) 500 ML 999 ML IV (21:42)
[2024-12-04 22:00] VITALS: BP 121/64; PULSE 65; RESP 23; TEMP 37.1; O2SAT 97
[2024-12-04 22:52] LABS: Troponin T High Sens 2 HR 14 ng/L (<=14)
[2024-12-04 23:00] VITALS: BP 118/68; PULSE 64; RESP 14; TEMP 37.1; O2SAT 94
[2024-12-04 23:09] VITALS: O2SAT 98
== END 2024-12-04 23:34 | disposition home or self-care (01) ==
PROVIDERS: Emergency Provider Emergency Medicine; PCP Family Medicine; Visit Provider Emergency Medicine
DX: U07.1 COVID-19 (principal); I25.10 Atherosclerotic heart disease of native coronary artery without angina pectoris; I25.2 Old myocardial infarction; Z95.5 Presence of coronary angioplasty implant and graft; Z79.82 Long term (current) use of aspirin; Z79.899 Other long term (current) drug therapy; Z86.74 Personal history of sudden cardiac arrest
CPT/HCPCS: 71275; 80048; 83880; 84484; 85025; 87631; 93005; 96361; 96374; 99283; Q9967; A4216

== ENCOUNTER 2024-12-26 11:15 | Outpatient (RCR) | payer MEDICARE, SELFPAY ==
[2024-11-01 13:40] VITALS: BMI 30.4
--- NOTE | 2024-11-29 10:29 | CR.ITP_ITS ---
Exercise - Initial Assessment Visit Session #:: 6 Physician Prescribed Exercise Modalities: Treadmill, Schwinn Airdyne AD-7 and SciFit Stepper Nutrition - Initial Assessment Weight Mgt (Other Care) Height: 5 ft 6 in Weight:: 184 lb BMI: 29.7 BMI (Report if calculated above): 29 Psychosocial - Initial Assess Target Goals Target Goals Referral to Behavioral Health PS - Interventions: Yes: Attend Stress Management Classes Patient Health Questionnaire PHQ-9 Screening 30-Day Re-eval Assessment: 1. Little interest or pleasure in doing things: Several days 2. Feeling down, depressed, or hopeless: Several days 3. Trouble falling or staying asleep, or sleeping too much: Not at all 4. Feeling tired or having little energy: Several days 5. Poor appetite or overeating: Not at all 6. Feeling bad about yourself -- or that you are a failure or have let yourself or your family down: Several days 7. Trouble concentrating on things, such as reading the newspaper or watching television: Not at all 8. Moving or speaking so slowly that other people could have noticed. Or the opposite - being so fidgety or restless that you have been moving around a lot more than usual: Not at all 9. Thoughts that you would be better off , or of hurting yourself in some way: Not at all How difficult have these problems made it for you to do your work, take care of things at home, or get along with other people?: Not difficult at all Total Score: 4 Self-Efficacy 6-Item Scale 30-Day Re-eval Assessment: We would like to know how confident you are in doing certain activities. Please select your confidence level for: Fatigue Select Number: 4 Physical Discomfort or Pain Select Number: 4 Emotional Distress Select Number: 5 Other Symptoms or Health Problems Select Number: 5 Different Tasks and Activities Select Number: 7 Medication Select Number: 7 Total Score:: 5 Nutrition Survey Nutrition Survey Instructions Scoring Instructions Exercise - 30-day Assessment Visit Date of Eval: 11/29/24 Session #:: 6 Physician Prescribed Exercise Modalities: Treadmill, Schwinn Airdyne AD-7 and SciFit Stepper Frequency: 3x/week for 12 weeks [36 sessions] Intensity: 60-80% of age predicted maximum heart rate reserve Duration: 30 - 45 minutes METs - Progression 0.5-1.0 weekly:: 0.5-1.0 Current METSs:: 4 Target Heart Rate:: 98-113 Target RPE 12-16:: 12-16 Current RPE:: 12 Maximum Excercise HR:: 103 Resting Blood Pressure: 130/70 Maximum Exercise Blood Pressure: 150/82 EKG Type: NSR to ST with T wave inversion and rare pac/pvc Outcomes & Goals Goals:: Verbalizes understanding of THR, RPE & goal METS by session 6, Documents in home exercise log/reports 30 min aerobic 5 day/wk by DC and Demonstrates accurate pulse taking by DC Intervention & Plan Exercise Program Goals: Instruct on personal THR & RPE, Instruct on MET level & personal MET goal, Show patient to take own pulse /validate performance until accurate and Instruct on home exercise 30-day Reassessments 30 day Reassessments:: Progressing Reassessment Notes & Comments:: Pt utilizing RPE scale correctly with minimal prompting. Physical Activity Home Exercise Physical Activity - Home Exercise: Safe Exercise, Warm-up, Self-monitoring, Cool-Down, Home Exercise > 30 min Daily and Sitting Time <3 hours/daily Outcomes & Goals Outcomes/Goals: Demonstrates correct Warm-up/exercise Cool-Down (S3) if = 2.5 METs, Verbalizes symptoms of exercise intolerance by Session 3 (S3) and Demonstrate safe equipment use (S3) & follows exercise prescrition (6) Intervention & Plan Plan/Intervention: Instruct warm-up & cool-down if exercising at > 2 METs, Instruct on symptoms of exercise intolerance & actions to take, Instruct & monitor on saf and Assess intial functional capacity & safety risk 30-day Reassessments 30 day Reassessments:: Progressing Reassessment Notes & Comments:: Pt instructed on proper warm up and cool down, pt instructed on symptoms of exercise intolerance and actions to take if occur Exercise - 60-day Assessment Physician Prescribed Exercise Modalities: Treadmill, Schwinn Airdyne AD-7 and SciFit Stepper Exercise - 90-day Assessment Physician Prescribed Exercise Modalities: Treadmill, Schwinn Airdyne AD-7 and SciFit Stepper Exercise - Final/Discharge Physician Prescribed Exercise Modalities: Treadmill, Schwinn Airdyne AD-7 and SciFit Stepper Nutrition - 30-Day Assessment Program Goals Nutrition Program Goals Patient has diagnosis of Hyperlipidemia (ICD E78)?: No Visit Date of Eval: 11/29/24 Session #:: 6 Cholesterol/Lipids (Other Core Measures) Lipid Medication: rosuvastatin 50mg QD Determine presence & major risk factors that modify LDL goal: Cigarette smoking, Hypertension or hypertensive medication, Low HDL cholesterol <40 mg/dL*, Family history of premature CHD in Male < 55 years: female <65 yearsFa and Age men > 45 years; women >/= 55 years Outcomes/Goals: Pt IDs own risk factors & lifestyle modifications by Session 10, Verbalizes symptoms of angina & response by session 3. and Pt independently manages Intervention/Plan: Advocate for lipid panel cholesterol medication if applicable, Instruct on personal lipid levels & lipid goals/NCEP guidelines, Instruct on cholesterol and Other additional plan/int 30-day Reassessments:: Progressing Reassessment Notes & Comments:: Pt taking statin medication as prescribed Diabetes (Other Core Measures) Diabetes Type: Not Applicable Weight Mgt (Other Care) Height: 5 ft 6 in Weight:: 184 lb BMI: 29.7 BMI (Report if calculated above): 29 Diagnosis Overweight/Obesity BMI> 30% ICD-10 E66: No Diagnosis High BMI/Morbid Obesity BMI> 35% ICD-10 Z68: No Outcomes/Goals: Pt sets, maintains & shows weight loss goal & trend during rehab Intervention/Plan: Instruct on ideal BMI & set weight loss goal w/patient, Assist pt to ID & incorporate diet changes for weight loss by S9, Refer to Structured Weight Loss program as appropriate and Encourage goal of using 250- 300dcal per session for weight loss 30 day Reassessments:: Progressing Reassessment Notes & Comments:: Pt continues to monitor weight weekly in rehab, pt instructed on diet and lifestyle changes to promote maintaining healthy weight Healthy Eating Habits Will attend diet classes:: Yes Outcomes/Goals:: Consume diet rich in vegs,fruits,whole grain/high fiber,fish,lean meat and Limit sat/trans fats,cholesterol & added salts & sugars Intervention/Plan:: Assess current eating habits 30-day Reassessments:: Progressing Reassessment Notes & Comments:: Pt to attend diet classes while at rehab. Education Gave educational materials for:: Signs & symptoms of hypoglycemia, Signs & symptoms of hyperglycemia, Relate diabetes to coronary artery disease and Healthy eating Nutrition - 60-Day Assessment Weight Mgt (Other Care) Height: 5 ft 6 in Weight:: 184 lb BMI: 29.7 BMI (Report if calculated above): 29 Core - 30-Day Assessment Visit Date of Eval: 11/29/24 Session #:: 6 Medication Compliance Preventative Medication(s):: Aspirin, Ticagrelor/P2Y12 inhibitor, Statin/lipid, Beta usman and ARB (Angiotensi Rcap) H/O mental health issues: depression, anxiety, or addiction?: No Doesn’t believe in the benefits of treatment?: No Believes medications are unnecessary or harmful?: No Has a concern about medication side effects?: No Expresses concern over the cost of medications?: No Outcomes/Goals: Verbalizes medications,desired effect & common side effects @ DC, Pt self-reports following medication regimen and Keeps card in wallet w/medications listed by DC Interventions/plans: Instruct on medication effects & side effects, Review medication list w/patient every two weeks and Instruct importance of taking meds as ordered & assist problem solving 30-day Reassessments:: Progressing Reassessment Notes & Comments:: Pt taking all medications as prescribed. Tobacco Use Tobacco Use: Non-smoker Hypertension Resting Blood Pressure:: 130/70 [place] [employer] Hypertension Guidelines Peak Exercise Blood Pressure:: 150/82 Outcomes/Goals: Able to verbalize/achieve optimal blood pressure <130/80 and Incorporates diet changes & exercise for blood pressure control by DC Interventions/plan: Instruct on optimal blood pressure, hypertension & medications and Instruct on effects of sodium, alcohol, stress, exercise &hypertension 30 day Reassessments:: Met Reassessment Notes & Comments:: BP with optimal levels Tobacco Cessation Referral Education Schedule Given:: Yes Psychosocial - 30-Day Assess VIsit Date of Eval: 11/29/24 Session #:: 6 History of previous Mental disease:: No (pt has had some stress from recent illness but states she is doing fine) History of Emotional Disorders: None Self-reported stressors Other/Comments:: Recent Illness Target Goals Target Goals Psychosocial Test Tool Used:: PHQ-9 Questionnaire phq-9 Severity See PHQ-9 Score: 4 Referral to Behavioral Health PS - Interventions: Yes: Attend Stress Management Classes Outcomes/Goals: See list Psychosocial Outcomes/Goals:: ID's personal stressors & 2 strategies to manage stress by discharge Intervention/Plan: See List Interventions/Plan:: Assess stressors,coping strategies & signs of derpression on admission, Instruct/assist pt to develop coping & personal stress Mgt strategies, Refer to Behavioral Health if appropriate, Refer to Physician if appropriate and Instruct patient to recognize signs & symptoms of depression 30-day Reassessments: 30 day Reassessments:: Progressing Reassessment Notes & Comments:: Pt denies any psychosocial needs at this time, pt to attend stress management classes in rehab. Psychosocial - 60-Day Assess Target Goals Target Goals Referral to Behavioral Health PS - Interventions: Yes: Attend Stress Management Classes Outcomes/Goals: See list Psychosocial Outcomes/Goals:: ID's personal stressors & 2 strategies to manage stress by discharge Psychosocial - 90-Day Assess Target Goals Target Goals Referral to Behavioral Health PS - Interventions: Yes: Attend Stress Management Classes Psychosocial - Final Assessmen Target Goals Target Goals Referral to Behavioral Health PS - Interventions: Yes: Attend Stress Management Classes Nutrition - 90-Day Assessment Weight Mgt (Other Care) Height: 5 ft 6 in Weight:: 184 lb BMI: 29.7 BMI (Report if calculated above): 29 Nutrition - Final Assessment Weight Mgt (Other Care) Height: 5 ft 6 in Weight:: 184 lb BMI: 29.7 BMI (Report if calculated above): 29
[2024-11-29 10:39] VITALS: BP 130/70; BMI 29.0; BMI 29.7
== END 2024-12-27 23:59 ==
LOC: CR 11:15
PROVIDERS: PCP Family Medicine; Referring Provider Internal Medicine Cardiovascular Disease; Visit Provider Internal Medicine Cardiovascular Disease
DX: I25.5 Ischemic cardiomyopathy (principal); I21.11 ST elevation (STEMI) myocardial infarction involving right coronary artery; Z95.5 Presence of coronary angioplasty implant and graft
CPT/HCPCS: 93798; 97802

== ENCOUNTER → 2025-01-05 | Outpatient (CLI) | payer MEDICARE, SELFPAY ==
[2024-11-29 10:39] VITALS: BMI 29.7
[2024-12-28 09:21] VITALS: BMI 28.5
--- NOTE | 2025-01-05 07:40 | ECHOL_ITS ---
Reason For Study Reason For Study: CHF Procedure This was a limited 2D transthoracic echocardiogram. Exam performed in department. Left Ventricle Normal LV size. Mild concentric left ventricular hypertrophy. Mild inferior and inferior septal hypokinesis. Estimated LVEF 50%. At least stage I diastolic dysfunction. LV global longitudinal strain is -15% which is abnormal. Right Ventricle Normal right ventricle. Atria The left and right atria are normal. Mitral Valve Mild (1+) mitral valve insufficiency. Tricuspid Valve Trivial tricuspid valve insufficiency. Aortic Valve Trisinus/trileaflet aortic valve. Pulmonic Valve The pulmonic valve is not well visualized. Great Vessels Normal sized aortic root. Pericardium/Pleural No pericardial effusion. MMode/2D Measurements & Calculations LVIDd: 5.0 cm IVSd: 1.2 cm LAV(MOD- bp): 38.0 ml LVIDs: 3.3 cm LVPWd: 1.2 cm LAV(MOD- bp) Indexed: 20.2 ml/m2 FS: 34.2 % LAV(MOD- sp2): 40.6 ml LAV(MOD- sp4): 30.8 ml SV(MOD-sp4): 45.5 ml SV(sp4- el): 47.5 ml LVAd ap4: 29.4 cm2 LVLd ap4: 7.9 cm SI(MOD-sp4): 24.2 ml/m2 EDV(MOD-sp4): 91.1 ml EDV(sp4-el): 92.8 ml LVAs ap4: 19.6 cm2 LVLs ap4: 7.2 cm ESV(MOD-sp4): 45.6 ml ESV(sp4-el): 45.2 ml EF(MOD-sp4): 50.0 % EF(sp4-el): 51.2 % LA A4 area: 14.2 cm2 LA dimension(2D): 4.1 cm RA A4 area: 13.1 cm2 ECHO/Echo, Limited Study Interpretation Summary Mild concentric left ventricular hypertrophy. Mild inferior and inferior septal hypokinesis. Estimated LVEF 50%. At least sta ge I diastolic dysfunction. LV global longitudinal strain is -15% which is abnormal. Mild (1+) mitral valve insufficiency. Ordering Physician: Tova Latif Referring Physician: Tova Latif Performed By: Palmira Gonzalez RCS
== END | disposition home or self-care (01) ==
LOC: CVS 07:40
PROVIDERS: PCP Family Medicine; Referring Provider Physician Assistant Medical; Visit Provider Physician Assistant Medical
DX: I25.5 Ischemic cardiomyopathy (principal); R93.1 Abnormal findings on diagnostic imaging of heart and coronary circulation
CPT/HCPCS: 93308

== ENCOUNTER 2025-01-27 11:15 | Outpatient (RCR) | payer MEDICARE, SELFPAY ==
[2024-11-29 10:39] VITALS: BMI 29.7
--- NOTE | 2024-12-28 09:08 | CR.ITP_ITS ---
Exercise - Initial Assessment Physician Prescribed Exercise Modalities: Treadmill, Schwinn Airdyne AD-7 and SciFit Lateral Memory Care Program Director Nutrition - Initial Assessment Weight Mgt (Other Care) Height: 5 ft 6 in Weight:: 177 lb BMI: 28.5 Core - Initial Assessment Hypertension Resting Blood Pressure:: 118/60 [place] [employer] Hypertension Guidelines Psychosocial - Initial Assess Referral to Behavioral Health PS - Interventions: Yes: Attend Stress Management Classes Exercise - 30-day Assessment Physician Prescribed Exercise Modalities: Treadmill, Schwinn Airdyne AD-7 and SciFit Lateral Memory Care Program Director Exercise - 60-day Assessment Visit Date of Eval: 12/28/24 Session #:: 17 Physician Prescribed Exercise Modalities: Treadmill, Schwinn Airdyne AD-7 and SciFit Lateral [place] Frequency: 3x/week for 12 weeks [36 sessions] Intensity: 60-80% of age predicted maximum heart rate reserve Duration: 30 - 45 minutes Current METSs:: 5.5 Target Heart Rate:: 98-113 Current RPE:: 12 Maximum Excercise HR:: 112 Resting Blood Pressure: 114/60 Maximum Exercise Blood Pressure: 124/72 EKG Type: NSR to ST w/ Twave inversion w/ rare PAC, PVC Outcomes & Goals Goals:: Verbalizes understanding of THR, RPE & goal METS by session 6, Documents in home exercise log/reports 30 min aerobic 5 day/wk by DC, Demonstrates accurate pulse taking by DC and Other additional outcome/goals: see below Intervention & Plan Exercise Program Goals: Instruct on personal THR & RPE, Instruct on MET level & personal MET goal, Show patient to take own pulse /validate performance until accurate, Instruct on home exercise and Other additional plan/int Physical Activity Home Exercise Physical Activity - Home Exercise: Safe Exercise, Warm-up, Self-monitoring, Cool-Down, Home Exercise > 30 min Daily and Sitting Time <3 hours/daily Outcomes & Goals Outcomes/Goals: Demonstrates correct Warm-up/exercise Cool-Down (S3) if = 2.5 METs, Verbalizes symptoms of exercise intolerance by Session 3 (S3), Demonstrate safe equipment use (S3) & follows exercise prescrition (6) and Other: See below Intervention & Plan Plan/Intervention: Instruct warm-up & cool-down if exercising at > 2 METs, Instruct on symptoms of exercise intolerance & actions to take, Instruct & monitor on saf, Assess intial functional capacity & safety risk and Other See below 30-day Reassessments 30 day Reassessments:: Progressing Reassessment Notes & Comments:: Proper warm up and cool down demonstrated and explained to pt. Pt is able to return demonstration in their daily sessions. Exercise - 90-day Assessment Physician Prescribed Exercise Modalities: Treadmill, Schwinn Airdyne AD-7 and SciFit Lateral [place] Exercise - Final/Discharge Physician Prescribed Exercise Modalities: Treadmill, Schwinn Airdyne AD-7 and SciFit Lateral [place] Nutrition - 30-Day Assessment Weight Mgt (Other Care) Height: 5 ft 6 in Weight:: 177 lb BMI: 28.5 Nutrition - 60-Day Assessment Program Goals Nutrition Program Goals Patient has diagnosis of Hyperlipidemia (ICD E78)?: Yes Visit Date of Eval: 12/28/24 Session #:: 17 (Nutrition survey score of 4.) Cholesterol/Lipids (Other Core Measures) Determine presence & major risk factors that modify LDL goal: Cigarette smoking, Hypertension or hypertensive medication, Low HDL cholesterol <40 mg/dL*, Family history of premature CHD in Male < 55 years: female <65 yearsFa and Age men > 45 years; women >/= 55 years Outcomes/Goals: Pt IDs own risk factors & lifestyle modifications by Session 10, Verbalizes symptoms of angina & response by session 3., Pt independently manages and Other Additional Outcomes/Goals: Intervention/Plan: Advocate for lipid panel cholesterol medication if applicable, Instruct on personal lipid levels & lipid goals/NCEP guidelines, Instruct on cholesterol and Other additional plan/int Referral to dietitian:: Yes (Pt has met with our marketing budget analyst for a 1 on 1 consultation.) 30-day Reassessments:: Progressing Reassessment Notes & Comments:: Pt has met with our marketing budget analyst for a 1 on 1 consultation. Diabetes (Other Core Measures) Diabetes Type: Not Applicable Weight Mgt (Other Care) Height: 5 ft 6 in Weight:: 177 lb BMI: 28.5 Diagnosis Overweight/Obesity BMI> 30% ICD-10 E66: No Diagnosis High BMI/Morbid Obesity BMI> 35% ICD-10 Z68: No Outcomes/Goals: Pt sets, maintains & shows weight loss goal & trend during rehab and Other additional outcomes/goals Intervention/Plan: Instruct on ideal BMI & set weight loss goal w/patient, Assist pt to ID & incorporate diet changes for weight loss by S9, Refer to Structured Weight Loss program as appropriate, Encourage goal of using 250- 300dcal per session for weight loss and Other additional plan/interventions Healthy Eating Habits Will attend diet classes:: Yes Outcomes/Goals:: Consume diet rich in vegs,fruits,whole grain/high fiber,fish,lean meat, Limit sat/trans fats,cholesterol & added salts & sugars and Other additional outcome/goals: 30-day Reassessments:: Progressing Reassessment Notes & Comments:: Pt is scheduled to attend nutrition class. Low sodium heart healthy diet encouraged. Education Gave educational materials for:: Signs & symptoms of hypoglycemia, Signs & symptoms of hyperglycemia, Relate diabetes to coronary artery disease and Healthy eating Core - Final Assessment Hypertension Resting Blood Pressure:: 118/60 [place] [employer] Hypertension Guidelines Core - 60-Day Assessment Visit Date of Eval: 12/28/24 Session #:: 17 Medication Compliance Preventative Medication(s):: Aspirin, Ticagrelor/P2Y12 inhibitor, Statin/lipid, Beta usman and ARB (Angiotensi Rcap) H/O mental health issues: depression, anxiety, or addiction?: No Doesn’t believe in the benefits of treatment?: No Believes medications are unnecessary or harmful?: No Has a concern about medication side effects?: No Expresses concern over the cost of medications?: No Outcomes/Goals: Verbalizes medications,desired effect & common side effects @ DC, Pt self-reports following medication regimen, Keeps card in wallet w/medications listed by DC and Other additional outcome/goals: Interventions/plans: Instruct on medication effects & side effects, Review medication list w/patient every two weeks, Instruct importance of taking meds as ordered & assist problem solving and Other additional 30-day Reassessments:: Met Reassessment Notes & Comments:: Pt taking meds as prescribed. Tobacco Use Tobacco Use: Non-smoker Hypertension Resting Blood Pressure:: 114/60 Resting Blood Pressure:: 118/60 [place] [employer] Hypertension Guidelines Peak Exercise Blood Pressure:: 124/72 Outcomes/Goals: Able to verbalize/achieve optimal blood pressure <130/80, Incorporates diet changes & exercise for blood pressure control by DC and Other additional outcomes/goals Interventions/plan: Instruct on optimal blood pressure, hypertension & medications, Instruct on effects of sodium, alcohol, stress, exercise &hypertension and Other additional plan/interventions 30 day Reassessments:: Met Reassessment Notes & Comments:: Pt's BP's are within AHA normal limits. Will continue to monitor and report to pt's physician if necessary. Tobacco Cessation Referral Smoking Cessation Referral:: No Individual Education/Counseling:: No Education Schedule Given:: Yes Psychosocial - 30-Day Assess Referral to Behavioral Health PS - Interventions: Yes: Attend Stress Management Classes Outcomes/Goals: See list Psychosocial Outcomes/Goals:: ID's personal stressors & 2 strategies to manage stress by discharge and Other Additional outcome/goals: Psychosocial - 60-Day Assess VIsit Date of Eval: 12/28/24 Session #:: 17 Psychosocial Test Tool Used:: PHQ-9 Questionnaire phq-9 Severity See PHQ-9 Score: 4 Referral to Behavioral Health PS - Interventions: Yes: Attend Stress Management Classes Outcomes/Goals: See list Psychosocial Outcomes/Goals:: ID's personal stressors & 2 strategies to manage stress by discharge and Other Additional outcome/goals: Intervention/Plan: See List Interventions/Plan:: Assess stressors,coping strategies & signs of derpression on admission, Instruct/assist pt to develop coping & personal stress Mgt strategies, Refer to Behavioral Health if appropriate, Refer to Physician if appropriate, Instruct patient to recognize signs & symptoms of depression, Instruct patient to recog and Other additional plan/intervention 30-day Reassessments: 30 day Reassessments:: Progressing Reassessment Notes & Comments:: Pt to attend stress management class. Pt does admit to sme stress from her recent illness but states she is fine. Will reassess every 30 days. Psychosocial - 90-Day Assess Referral to Behavioral Health PS - Interventions: Yes: Attend Stress Management Classes Psychosocial - Final Assessmen Referral to Behavioral Health PS - Interventions: Yes: Attend Stress Management Classes Nutrition - 90-Day Assessment Weight Mgt (Other Care) Height: 5 ft 6 in Weight:: 177 lb BMI: 28.5 Nutrition - Final Assessment Weight Mgt (Other Care) Height: 5 ft 6 in Weight:: 177 lb BMI: 28.5
[2024-12-28 09:21] VITALS: BP 114/60; BP 118/60; BMI 28.5
--- NOTE | 2025-01-26 07:55 | PCM.CR.ITP ---
Exercise - Initial Assessment Physician Prescribed Exercise Modalities: Treadmill, [employer]irdyne AD-7 and SciFit Lateral [employer] Work[employer] Nutrition - Initial Assessment Weight Mgt (Other Care) Height: 5 ft 6 in Weight:: 173 lb BMI: 27.9 Psychosocial - Initial Assess Referral to Behavioral Health PS - Interventions: Yes: Attend Stress Management Classes Exercise - 30-day Assessment Physician Prescribed Exercise Modalities: Treadmill, [employer]yne AD-7 and SciFit Lateral [place] Exercise - 60-day Assessment Physician Prescribed Exercise Modalities: Treadmill, [employer] A[employer]yne AD-7 and SciFit Lateral [place] Exercise - 90-day Assessment Visit Date of Eval: 01/26/25 Session #:: 28 Physician Prescribed Exercise Modalities: Treadmill, Schwinn Airdyne AD-7 and SciFit Lateral [place] Frequency: 3x/week for 12 weeks [36 sessions] Intensity: 60-80% of age predicted maximum heart rate reserve Duration: 30 - 45 minutes Current METSs:: 6.7 Target Heart Rate:: 98-121 Current RPE:: 12-14 Maximum Excercise HR:: 123 Resting Blood Pressure: 132/80 Maximum Exercise Blood Pressure: 176/90 EKG Type: NSR to ST w/Twave inversion w/rare PAC and PVC Outcomes & Goals Goals:: Verbalizes understanding of THR, RPE & goal METS by session 6, Documents in home exercise log/reports 30 min aerobic 5 day/wk by DC, Demonstrates accurate pulse taking by DC and Other additional outcome/goals: see below Intervention & Plan Exercise Program Goals: Instruct on personal THR & RPE, Instruct on MET level & personal MET goal, Show patient to take own pulse /validate performance until accurate, Instruct on home exercise and Other additional plan/int Physical Activity Home Exercise Physical Activity - Home Exercise: Safe Exercise, Warm-up, Self-monitoring, Cool-Down, Home Exercise > 30 min Daily and Sitting Time <3 hours/daily Outcomes & Goals Outcomes/Goals: Demonstrates correct Warm-up/exercise Cool-Down (S3) if = 2.5 METs, Verbalizes symptoms of exercise intolerance by Session 3 (S3), Demonstrate safe equipment use (S3) & follows exercise prescrition (6) and Other: See below Intervention & Plan Plan/Intervention: Instruct warm-up & cool-down if exercising at > 2 METs, Instruct on symptoms of exercise intolerance & actions to take, Instruct & monitor on saf, Assess intial functional capacity & safety risk and Other See below 30-day Reassessments 30 day Reassessments:: Progressing Reassessment Notes & Comments:: Pt is progressing her exercise intensity. Will continue to encourage and increase intensity as tolerated. Exercise - Final/Discharge Physician Prescribed Exercise Modalities: Treadmill, Schwinn Airdyne AD-7 and SciFit Lateral [employer] Nutrition - 30-Day Assessment Weight Mgt (Other Care) Height: 5 ft 6 in Weight:: 173 lb BMI: 27.9 Nutrition - 60-Day Assessment Program Goals Nutrition Program Goals Patient has diagnosis of Hyperlipidemia (ICD E78)?: Yes Visit Date of Eval: 01/26/25 Session #:: 28 Cholesterol/Lipids (Other Core Measures) Determine presence & major risk factors that modify LDL goal: Cigarette smoking, Hypertension or hypertensive medication, Low HDL cholesterol <40 mg/dL*, Family history of premature CHD in Male < 55 years: female <65 yearsFa and Age men > 45 years; women >/= 55 years Outcomes/Goals: Pt IDs own risk factors & lifestyle modifications by Session 10, Verbalizes symptoms of angina & response by session 3., Pt independently manages and Other Additional Outcomes/Goals: Intervention/Plan: Advocate for lipid panel cholesterol medication if applicable, Instruct on personal lipid levels & lipid goals/NCEP guidelines, Instruct on cholesterol and Other additional plan/int Referral to dietitian:: Yes (Pt met with our dietitian 12/05/24. Nutrition survey score of 4.) 30-day Reassessments:: Met Diabetes (Other Core Measures) Diabetes Type: Not Applicable Weight Mgt (Other Care) Height: 5 ft 6 in Weight:: 173 lb BMI: 27.9 Diagnosis Overweight/Obesity BMI> 30% ICD-10 E66: No Diagnosis High BMI/Morbid Obesity BMI> 35% ICD-10 Z68: No Outcomes/Goals: Pt sets, maintains & shows weight loss goal & trend during rehab and Other additional outcomes/goals Intervention/Plan: Instruct on ideal BMI & set weight loss goal w/patient, Assist pt to ID & incorporate diet changes for weight loss by S9, Refer to Structured Weight Loss program as appropriate, Encourage goal of using 250-300dcal per session for weight loss and Other additional plan/interventions 30 day Reassessments:: Met Reassessment Notes & Comments:: Pt is at a healthy weight. Pt is scheduled to attend nutrition classes with our human resources admin. Heart healthy low sodium diet encouraged. Healthy Eating Habits Will attend diet classes:: Yes Outcomes/Goals:: Consume diet rich in vegs,fruits,whole grain/high fiber,fish,lean meat, Limit sat/trans fats,cholesterol & added salts & sugars and Other additional outcome/goals: Intervention/Plan:: Assess current eating habits and Other Additional plan/interventions 30-day Reassessments:: Progressing Reassessment Notes & Comments:: Pt is at a healthy weight. Pt is scheduled to attend nutrition classes with our human resources admin. Heart healthy low sodium diet encouraged. Education Gave educational materials for:: Signs & symptoms of hypoglycemia, Signs & symptoms of hyperglycemia, Relate diabetes to coronary artery disease and Healthy eating Core - 30-Day Assessment Hypertension [place] Heart Association Hypertension Guidelines Reassessment Notes & Comments:: Pt's BP's are within AHA normal limits on most days. Will continue to monitor and report to pt's physician if necessary. Core - Final Assessment Hypertension [place] Heart Association Hypertension Guidelines Reassessment Notes & Comments:: Pt's BP's are within AHA normal limits on most days. Will continue to monitor and report to pt's physician if necessary. Core - 90 Day Assessment Visit Date of Eval: 01/26/25 Session #:: 28 Medication Compliance Preventative Medication(s):: Aspirin, Ticagrelor/P2Y12 inhibitor, Statin/lipid, Beta usman and ARB (Angiotensi Rcap) H/O mental health issues: depression, anxiety, or addiction?: No Doesn’t believe in the benefits of treatment?: No Believes medications are unnecessary or harmful?: No Has a concern about medication side effects?: No Expresses concern over the cost of medications?: No Outcomes/Goals: Verbalizes medications,desired effect & common side effects @ DC, Pt self-reports following medication regimen, Keeps card in wallet w/medications listed by DC and Other additional outcome/goals: Interventions/plans: Instruct on medication effects & side effects, Review medication list w/patient every two weeks, Instruct importance of taking meds as ordered & assist problem solving and Other additional Tobacco Use Tobacco Use: Non-smoker Hypertension Resting Blood Pressure:: 132/80 [place] Heart Association Hypertension Guidelines Peak Exercise Blood Pressure:: 176/90 Outcomes/Goals: Able to verbalize/achieve optimal blood pressure <130/80, Incorporates diet changes & exercise for blood pressure control by DC and Other additional outcomes/goals Interventions/plan: Instruct on optimal blood pressure, hypertension & medications, Instruct on effects of sodium, alcohol, stress, exercise &hypertension and Other additional plan/interventions 30 day Reassessments:: Progressing Reassessment Notes & Comments:: Pt's BP's are within AHA normal limits on most days. Will continue to monitor and report to pt's physician if necessary. Tobacco Cessation Referral Smoking Cessation Referral:: No Individual Education/Counseling:: No Education Schedule Given:: Yes Psychosocial - 30-Day Assess Referral to Behavioral Health PS - Interventions: Yes: Attend Stress Management Classes Psychosocial - 60-Day Assess Referral to Behavioral Health PS - Interventions: Yes: Attend Stress Management Classes Psychosocial - 90-Day Assess VIsit Date of Eval: 01/26/25 Session #:: 28 Psychosocial Test Tool Used:: [employer] QOL Cardiac and PHQ-9 Questionnaire phq-9 Severity See PHQ-9 Score: 4 Referral to Behavioral Health PS - Interventions: Yes: Attend Stress Management Classes Outcomes/Goals: See list Psychosocial Outcomes/Goals:: ID's personal stressors & 2 strategies to manage stress by discharge and Other Additional outcome/goals: Intervention/Plan: See List Interventions/Plan:: Assess stressors,coping strategies & signs of derpression on admission, Instruct/assist pt to develop coping & personal stress Mgt strategies, Refer to Behavioral Health if appropriate, Refer to Physician if appropriate, Instruct patient to recognize signs & symptoms of depression, Instruct patient to recog and Other additional plan/intervention 30-day Reassessments: 30 day Reassessments:: Met Reassessment Notes & Comments:: Pt denies any psychosocial issues at this time. Pt to attend stress management class. Will reassess every 30 days. Psychosocial - Final Assessmen Referral to Behavioral Health PS - Interventions: Yes: Attend Stress Management Classes Nutrition - 90-Day Assessment Weight Mgt (Other Care) Height: 5 ft 6 in Weight:: 173 lb BMI: 27.9 Nutrition - Final Assessment Weight Mgt (Other Care) Height: 5 ft 6 in Weight:: 173 lb BMI: 27.9
[2025-01-26 08:07] VITALS: BP 132/80; BMI 27.9
== END 2025-01-27 23:59 ==
LOC: CR 11:15
PROVIDERS: PCP Family Medicine; Referring Provider Internal Medicine Cardiovascular Disease; Visit Provider Internal Medicine Cardiovascular Disease
DX: I25.5 Ischemic cardiomyopathy (principal); I21.11 ST elevation (STEMI) myocardial infarction involving right coronary artery; Z95.5 Presence of coronary angioplasty implant and graft
CPT/HCPCS: 93798

== ENCOUNTER 2025-02-15 11:15 | Outpatient (RCR) | payer MEDICARE, SELFPAY ==
[2025-01-26 08:07] VITALS: BMI 27.9
--- NOTE | 2025-02-20 11:21 | PCM.CR.ITP ---
Exercise - Initial Assessment Physician Prescribed Exercise Modalities: Treadmill, Anna [place]negro AD-7 and SciFit Lateral [place] Consultant Nutrition - Initial Assessment Program Goals Nutrition Program Goals Patient has diagnosis of Hyperlipidemia (ICD E78)?: Yes Weight Mgt (Other Care) Height: 5 ft 6 in Weight:: 170 lb BMI: 27.4 Core - Initial Assessment Hypertension Resting Blood Pressure:: 118/70 [place] [employer] Hypertension Guidelines Psychosocial - Initial Assess Psychosocial Test phq-9 Severity See PHQ-9 Score: 0 Patient Health Questionnaire PHQ-9 Screening Discharge Assessment: 1. Little interest or pleasure in doing things: Not at all 2. Feeling down, depressed, or hopeless: Not at all 3. Trouble falling or staying asleep, or sleeping too much: Not at all 4. Feeling tired or having little energy: Not at all 5. Poor appetite or overeating: Not at all 6. Feeling bad about yourself -- or that you are a failure or have let yourself or your family down: Not at all 7. Trouble concentrating on things, such as reading the newspaper or watching television: Not at all 8. Moving or speaking so slowly that other people could have noticed. Or the opposite - being so fidgety or restless that you have been moving around a lot more than usual: Not at all 9. Thoughts that you would be better off , or of hurting yourself in some way: Not at all How difficult have these problems made it for you to do your work, take care of things at home, or get along with other people?: Not difficult at all Total Score: 0 Nutrition Survey Nutrition Survey Discharge: Have you lost >10 lbs over the past 2 months without trying?: Yes Are you following a special diet at home for diabetes, low fat, or low salt?: Yes Are you interested in meeting with a dietitian for help understanding your diet?: Yes Do you eat less than 3 meals a day?: No Do you eat fatty meats (aguilar, sausage, ribs, etc), fried foods, desserts, large amounts of salad dressings, margarine, butter, or cheese most days?: No Do you have food allergies? [Enter types in comment field]: No Do you eat in restaurants more than 3 times a week?: No Do you used canned, boxed, frozen meals, or soups, seasoning packets?: No Total Score:: 3 Exercise - 30-day Assessment Physician Prescribed Exercise Modalities: Treadmill, Schwinn Airdyne AD-7 and SciFit Lateral [place] Consultant Exercise - 60-day Assessment Physician Prescribed Exercise Modalities: Treadmill, Schwinn Airdyne AD-7 and SciFit Lateral [place] Exercise - 90-day Assessment Physician Prescribed Exercise Modalities: Treadmill, Schwinn Airdyne AD-7 and SciFit Lateral [place] Consultant Exercise - Final/Discharge Visit Date of Eval: 02/20/25 Session #:: 36 Physician Prescribed Exercise Modalities: Treadmill, Schwinn Airdyne AD-7 and SciFit Lateral [place] Frequency: 3x/week for 12 weeks [36 sessions] Intensity: 60-80% of age predicted maximum heart rate reserve Duration: 30 - 45 minutes METs - Progression 0.5-1.0 weekly:: 0.5 Current METSs:: 7.3 Target Heart Rate:: 98-121 Target RPE 12-16:: 12-16 Current RPE:: 13 Maximum Heart Rate:: 131 Resting Blood Pressure: 118/70 Maximum Exercise Blood Pressure: 182/90 EKG Type: nsr to sinus tach Current Physical Activity or Exercising minutes: 30 mins Outcomes & Goals Goals:: Verbalizes understanding of THR, RPE & goal METS by session 6, Documents in home exercise log/reports 30 min aerobic 5 day/wk by DC and Demonstrates accurate pulse taking by DC Intervention & Plan Exercise Program Goals: Instruct on personal THR & RPE, Instruct on MET level & personal MET goal, Show patient to take own pulse /validate performance until accurate and Instruct on home exercise 30-day Reassessments 30 day Reassessments:: Met Physical Activity Home Exercise Physical Activity - Home Exercise: Safe Exercise, Warm-up, Self-monitoring, Cool-Down, Home Exercise > 30 min Daily and Sitting Time <3 hours/daily Outcomes & Goals Outcomes/Goals: Demonstrates correct Warm-up/exercise Cool-Down (S3) if = 2.5 METs, Verbalizes symptoms of exercise intolerance by Session 3 (S3) and Demonstrate safe equipment use (S3) & follows exercise prescrition (6) Intervention & Plan Plan/Intervention: Instruct warm-up & cool-down if exercising at > 2 METs, Instruct on symptoms of exercise intolerance & actions to take, Instruct & monitor on saf, Assess intial functional capacity & safety risk and Other See below 30-day Reassessments 30 day Reassessments:: Met Reassessment Notes & Comments:: pt demonstrates safe exercise by completing warm up and cool down. accurately rates exercise workloads using rpe scale. educated on increasing exercise workloads using rpe scale when exercising outside of rehab. educated on signs and symptoms during exercise that would require medical attention. Nutrition - 30-Day Assessment Weight Mgt (Other Care) Height: 5 ft 6 in Weight:: 170 lb BMI: 27.4 Nutrition - 60-Day Assessment Weight Mgt (Other Care) Height: 5 ft 6 in Weight:: 170 lb BMI: 27.4 Core - 30-Day Assessment Hypertension [place] [employer] Hypertension Guidelines Reassessment Notes & Comments:: BP wnl before during and after exercise. Core - Final Assessment Visit Date of Eval: 02/20/25 Session #:: 36 Medication Compliance Preventative Medication(s):: Aspirin, Ticagrelor/P2Y12 inhibitor, Statin/lipid, Beta usman and ARB (Angiotensi Rcap) H/O mental health issues: depression, anxiety, or addiction?: No Doesn’t believe in the benefits of treatment?: No Believes medications are unnecessary or harmful?: No Has a concern about medication side effects?: No Expresses concern over the cost of medications?: No Outcomes/Goals: Verbalizes medications,desired effect & common side effects @ DC, Pt self-reports following medication regimen and Keeps card in wallet w/medications listed by DC Interventions/plans: Instruct on medication effects & side effects, Review medication list w/patient every two weeks, Instruct importance of taking meds as ordered & assist problem solving and Other additional 30-day Reassessments:: Met Reassessment Notes & Comments:: takes all meds as prescribed Tobacco Use Tobacco Use: Non-smoker Hypertension Resting Blood Pressure:: 118/70 [place] [employer] Hypertension Guidelines Peak Exercise Blood Pressure:: 182/90 Outcomes/Goals: Able to verbalize/achieve optimal blood pressure <130/80, Incorporates diet changes & exercise for blood pressure control by DC and Other additional outcomes/goals Interventions/plan: Instruct on optimal blood pressure, hypertension & medications, Instruct on effects of sodium, alcohol, stress, exercise &hypertension and Other additional plan/interventions 30 day Reassessments:: Met Reassessment Notes & Comments:: BP wnl before during and after exercise. Core - 90 Day Assessment Hypertension [place] [employer] Hypertension Guidelines Reassessment Notes & Comments:: BP wnl before during and after exercise. Core - 60-Day Assessment Hypertension Resting Blood Pressure:: 118/70 [place] [employer] Hypertension Guidelines Psychosocial - Final Assessmen VIsit Date of Eval: 02/20/25 Session #:: 36 History of previous Mental disease:: No Psychosocial Test Tool Used:: PHQ-9 Questionnaire phq-9 Severity See PHQ-9 Score: 0 Outcomes/Goals: See list Psychosocial Outcomes/Goals:: ID's personal stressors & 2 strategies to manage stress by discharge and Other Additional outcome/goals: Intervention/Plan: See List Interventions/Plan:: Assess stressors,coping strategies & signs of derpression on admission, Instruct/assist pt to develop coping & personal stress Mgt strategies, Refer to Behavioral Health if appropriate, Refer to Physician if appropriate, Instruct patient to recognize signs & symptoms of depression, Instruct patient to recog and Other additional plan/intervention 30-day Reassessments: 30 day Reassessments:: Met Reassessment Notes & Comments:: phq-9 0 at time of discharge. no psychosocial concerns at time of discharge Nutrition - 90-Day Assessment Weight Mgt (Other Care) Height: 5 ft 6 in Weight:: 170 lb BMI: 27.4 Nutrition - Final Assessment Program Goals Patient has diagnosis of Hyperlipidemia (ICD E78)?: Yes Visit Date of Assessment:: 02/20/25 Session #:: 36 Cholesterol/Lipids (Other Core Measures) Determine presence & major risk factors that modify LDL goal: Hypertension or hypertensive medication, Low HDL cholesterol <40 mg/dL*, Family history of premature CHD in Male < 55 years: female <65 yearsFa and Age men > 45 years; women >/= 55 years Outcomes/Goals: Pt IDs own risk factors & lifestyle modifications by Session 10, Verbalizes symptoms of angina & response by session 3., Pt independently manages and Other Additional Outcomes/Goals: Intervention/Plan: Advocate for lipid panel cholesterol medication if applicable, Instruct on personal lipid levels & lipid goals/NCEP guidelines, Instruct on cholesterol and Other additional plan/int Referral to dietitian:: No 30-day Reassessments:: Met Reassessment Notes & Comments:: encouraged pt to get lipids atleast once per year. Diabetes (Other Core Measures) Diabetes Type: Not Applicable Weight Mgt (Other Care) Height: 5 ft 6 in Weight:: 170 lb BMI: 27.4 Diagnosis Overweight/Obesity BMI> 30% ICD-10 E66: No Outcomes/Goals: Pt sets, maintains & shows weight loss goal & trend during rehab and Other additional outcomes/goals Intervention/Plan: Instruct on ideal BMI & set weight loss goal w/patient, Assist pt to ID & incorporate diet changes for weight loss by S9, Refer to Structured Weight Loss program as appropriate, Encourage goal of using 250-300dcal per session for weight loss and Other additional plan/interventions 30 day Reassessments:: Met Reassessment Notes & Comments:: encouraged to continue weighing weekly outside of cardiac rehab to track progress. Healthy Eating Habits Will attend diet classes:: Yes Outcomes/Goals:: Consume diet rich in vegs,fruits,whole grain/high fiber,fish,lean meat, Limit sat/trans fats,cholesterol & added salts & sugars and Other additional outcome/goals: 30-day Reassessments:: Met Reassessment Notes & Comments:: attended all education classes offered to her. Education Gave educational materials for:: Signs & symptoms of hypoglycemia, Signs & symptoms of hyperglycemia, Relate diabetes to coronary artery disease and Healthy eating
[2025-02-20 11:27] VITALS: BP 118/70
[2025-02-20 11:42] VITALS: BMI 27.4
[2025-02-20 11:47] VITALS: BP 118/70
== END 2025-02-26 23:59 ==
LOC: CR 11:15
PROVIDERS: PCP Family Medicine; Referring Provider Internal Medicine Cardiovascular Disease; Visit Provider Internal Medicine Cardiovascular Disease
DX: I25.5 Ischemic cardiomyopathy (principal); I21.11 ST elevation (STEMI) myocardial infarction involving right coronary artery; Z95.5 Presence of coronary angioplasty implant and graft
CPT/HCPCS: 93798; 97802

== ENCOUNTER → 2025-03-07 | Outpatient (CLI) | payer MEDICARE, SELFPAY ==
[2025-02-20 11:42] VITALS: BMI 27.4
[2025-03-07 11:23] LABS: AST(SGOT) 35 U/L (<=31); Alanine Aminotransfer ALT/SGPT 46 U/L (<=34); Albumin, Serum 4.2 g/dL (3.4-4.8); Alkaline Phosphatase 71 U/L (35-104); Anion Gap 8 (5-15); BUN 18 mg/dL (4-19); BUN/Creat Ratio 17.9 RATIO (10-20); Calcium,Total 9.5 mg/dL (7.6-11.0); Carbon Dioxide 25.7 mmol/L (21.0-32.0); Chloride 108 mmol/L (98-108); Cholesterol 82 mg/dL (<=200); Globulin 3.1 g/dL (2.2-4.2); Glucose 101 mg/dL (70-99); Low Density Lipoprotein Calc. 25 mg/dL; Potassium 4.4 mmol/L (3.3-5.1); Triglycerides 84 mg/dL; Very Low Density Lipoprotein 17 mg/dL (5-40); cholesterol:hdl ratio screen 2.07
== END | disposition home or self-care (01) ==
LOC: LAB 09:20
PROVIDERS: PCP Family Medicine; Referring Provider Internal Medicine Cardiovascular Disease; Visit Provider Internal Medicine Cardiovascular Disease
DX: I25.10 Atherosclerotic heart disease of native coronary artery without angina pectoris (principal); I25.5 Ischemic cardiomyopathy
CPT/HCPCS: 36415; 80053; 80061

== ENCOUNTER 2025-03-28 08:00 | Outpatient (RCR) | payer SELFPAY ==
[2025-01-26 08:07] VITALS: BMI 27.9
== END 2025-03-29 23:59 ==
LOC: CR 08:00
PROVIDERS: PCP Family Medicine
DX: Z00.00 Encounter for general adult medical examination without abnormal findings (principal)